=== PATIENT | female | born 1960 | race Caucasian/White ===

== ENCOUNTER 2019-06-23 18:46 | Observation (INO) | payer OTHER ==
--- OUTSIDE RECORDS SUMMARY | 2019-06-23 18:47 | XMS REPORT ---
:1960 [facility] Address [address] [place] [address] [address] [place] [address] Care Team Providers Name Role Phone Unavailable Unavailable Unavailable Problems This patient has no known problems. Allergies, Adverse Reactions, Alerts This patient has no known allergies or adverse reactions. Medications This patient has no known medications.
--- OUTSIDE RECORDS SUMMARY | 2019-06-23 18:48 | XMS REPORT ---
:1960 Author Organization [employer] Care Team Providers Name Role Phone Ruth Matias Provider Role Unavailable Allergies No Known Allergies Problems Problem Type Condition Code Onset Dates Condition Status Problem Falling R29.6 Active Problem Adult BMI 40.0-44.9 kg/sq m Z68.41 Active Problem Diabetes mellitus, type 2 E11.9 Active Problem Low back pain M54.5 Active Problem Pain in unspecified hip M25.559 Active Problem Acute peptic ulcer, site K27.2 Active unspecified, with both hemorrhage and perforation Problem Unspecified asthma, uncomplicated J45.909 Active Problem Migraine, unspecified, not G43.901 Active intractable, with status migrainosus Problem Other specified diabetes mellitus E13.42 Active with diabetic polyneuropathy Problem Type 2 diabetes mellitus with E11.21 Active diabetic nephropathy Problem Cellulitis of left elbow L03.114 Active Problem Sheryl albicans infection B37.9 Active Problem 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 Problem Acute cystitis without hematuria N30.00 Active Problem OAB (overactive bladder) N32.81 Active Problem Reactive depression F32.9 Active Problem Encounter for general adult medical Z00.00 Active examination without abnormal findings Problem Encounter for gynecological Z01.419 Active examination (general) (routine) without abnormal findings Problem 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 Active Problem Ingrown toenail L60.0 Active Problem Screening for colon cancer Z12.11 Active Problem Chronic sinusitis J32.9 Active Problem 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 Problem Bladder spasm N32.89 Active Problem Encounter for immunization Z23 Active Problem Moderate persistent asthma, J45.40 Active unspecified whether complicated Problem [place] or callus L84 Active Problem Hypothyroidism E03.9 Active Problem Abdominal pain, RLQ (right lower R10.31 Active quadrant) Problem Anxiety F41.9 Active Problem Shoulder pain, unspecified M25.519 Active chronicity, unspecified laterality Problem Allergic rhinitis, seasonal J30.2 Active Problem History of cerebrovascular accident I69.90 Active with current residual effects Problem Anemia D64.9 Active Assessment Diabetes mellitus, type 2 E11.9 Active Problem Pressure injury of right buttock, L89.311 Active stage 1 Problem GERD with esophagitis K21.0 Active Problem Other chronic pain G89.29 Active Problem Grief F43.21 Active Medications Medication Code Code Instructions Start End Status Dosage System Date Date Levothyroxine [facility] 44092730820 25 MCG Orally Active 1 tablet Sodium Once a day on an empty stomach in the morning along with 200mcg tab total 225 mcg daily Results No Known Results Summary Purpose [employer] Submission
[2019-06-23] MEDS ORDERED: NA CHLORIDE 0.9% 1,000 ML ONE (19:18)
[2019-06-23 20:22] LABS: Barbiturates NEGATIVE (NEGATIVE); Benzodiazepines NEGATIVE (NEGATIVE); Cocaine NEGATIVE (NEGATIVE); METHAMPHETAM NEGATIVE (NEGATIVE); Methadone NEGATIVE (NEGATIVE); Opiates NEGATIVE (NEGATIVE); Phencyclidine NEGATIVE (NEGATIVE); THC Cannibis NEGATIVE (NEGATIVE)
[2019-06-23 20:23] LABS: Absolute Lymphocytes (CBC) 3.4 K/uL (0.7-4.9); Hematocrit 32.5 % (36.0-45.0); Lymphocytes % 48.2 % (15.3-44.8); MPV 9.4 fL (7.6-11.3); RBC Red Blood Cell Count 3.35 M/uL (3.86-4.86)
[2019-06-23 20:33] LABS: Protime INR 0.85
[2019-06-23 20:38] LABS: Blood Morphology Comment NOT SEEN (NOT SEEN); Platelet Estimate DECR; Urine White Blood Cell Casts OK
[2019-06-23 20:57] LABS: Urine Blood NEGATIVE (NEG); Urine Glucose NEGATIVE (NEG); Urine Protein NEGATIVE (NEG)
[2019-06-23 20:58] LABS: ALT/SGPT 22 U/L (12-78); AST/SGOT 11 U/L (15-37); Albumin 3.5 g/dL (3.4-5.0); Alkaline Phosphatase 63 U/L (45-117); BUN Blood Urea Nitrogen 14 mg/dL (7-18); Bicarbonate 22 mmol/L (21-32); Bilirubin Direct < 0.1 mg/dL (0-0.2); Bilirubin Total 0.2 mg/dL (0.2-1.0); Glucose Level 136 mg/dL (74-106); Protein, Total 6.9 g/dL (6.4-8.2); Sodium Level 136 mmol/L (136-145)
--- NOTE | 2019-06-23 21:03 | ER ---
Nurse's Notes [facility] Name: Radha Santos Age: 58 yrs Sex: Female : 1960 Arrival Date: 06/23/2019 Time: 18:49 Bed 17 Private MD: Diagnosis: Major depressive disorder, recurrent-[place] notified;Dyspnea;Chest pain, unspecified;Chest pain on breathing;Asthma;Type 2 diabetes mellitus;Hypomagnesemia Presentation: 06/23 18:57 Presenting complaint: Patient states: Pt reports she has had depression all her life, ss but is now having suicidal ideations because her a year ago and her house is run down. Pt states, "I've been having these thoughts, but I really don't think I'd do anything because of my dog. Nobody would be able to take care of my dog, she is the world to me and the reason I get up every morning. Son reports that patient voiced to her doctor that she was having these thoughts and had plans to take all of her medication, but again believes she wouldn't actually do it. Transition of care: patient was not received from another setting of care. Onset of symptoms is unknown. Risk Assessment: Do you want to hurt yourself or someone else? Patient reports no desire to harm self or others. Initial Sepsis Screen: Does the patient meet any 2 criteria? HR > 90 bpm. Does the patient have a suspected source of infection? No. Patient's initial sepsis screen is negative. Care prior to arrival: None. 18:57 Method Of Arrival: Ambulatory 18:57 Acuity: SAURAV 2 ss Historical: - Allergies: 19:06 No Known Allergies; ss - Home Meds: 19:23 ProAir HFA 90 mcg/inh 2 puffs inh 4 times a day [Active]; divalproex 500 mg oral Tb24 2 ss tabs once daily [Active]; duloxetine 60 mg Oral cpDR 1 cap twice a day [Active]; Breo Ellipta 200 mcg oral caps take 1 puff DAILY [Active]; levothyroxine 200 mcg tab 1 tab once daily [Active]; meloxicam 7.5 mg oral tab 1 tab once daily [Active]; metformin 500 mg Oral tab 1 tab three times a day [Active]; omeprazole 40 mg Oral cpDR 1 cap once daily [Active]; oxybutynin chloride 5 mg Oral tab 1 tab 2 times per day [Active]; prednisone 20 mg Oral tab once daily [Active]; quetiapine 300 mg oral tab 1 tab once daily [Active]; simvastatin 20 mg Oral tab 1 tab once daily [Active]; tizanidine 2 mg oral cap 1 caps twice a day [Active]; tramadol 50 mg Oral tab 1 tab three times a day [Active]; trazodone 100 mg Oral tab 1 tab nightly [Active]; valsartan 80 mg oral tab 1 tab once daily [Active]; - PMHx: 19:06 CVA; Depression; Diabetes - NIDDM; GERD; Hypothyroidism; Hypertension; High ss Cholesterol; Anxiety; chronic back pain; - PSHx: 19:06 Knee surgery; Hysterectomy; ; Cholecystectomy; wrist surg; ss - Immunization history:: Adult Immunizations up to date. - Social history:: Smoking status: Patient/guardian denies using tobacco. - Ebola Screening: : Patient denies exposure to infectious person Patient denies travel to an Ebola-affected area in the 21 days before illness onset. - Family history:: not pertinent. Screenin:45 Abuse screen: Denies threats or abuse. Denies injuries from another. Nutritional ra1 screening: No deficits noted. Tuberculosis screening: No symptoms or risk factors identified. Fall Risk IV access (20 points). Assessment: 19:16 Reassessment: Patient currently denies SI/ HI at this time and states, "I'm just ss depressed. I wouldn't do anything because of my little dog.". 21:29 Reassessment: Patient appears in no apparent distress at this time. Patient and/or ra1 family updated on plan of care and expected duration. Pain level reassessed. Patient is alert, oriented x 3, equal unlabored respirations, skin warm/dry/pink. Pain: Denies pain. 22:47 Reassessment: Patient appears in no apparent distress at this time. Patient and/or ra1 family updated on plan of care and expected duration. Pain level reassessed. Patient is alert, oriented x 3, equal unlabored respirations, skin warm/dry/pink. attempted to call report to nurse receiving patient, nurse unavailable, will call back. 23:07 Reassessment: Patient appears in no apparent distress at this time. Patient and/or ra1 family updated on plan of care and expected duration. Pain level reassessed. Patient is alert, oriented x 3, equal unlabored respirations, skin warm/dry/pink. Report given to Patricia ABARCA. Psych: 19:30 Subjective: Patient's mood is pleasant and cheerful Delusions are denied, ra1 Hallucinations are denied Having thoughts of denies suicidal or homicidal thoughts. Objective: Patient is cooperative, Speech is normal, Affect is appropriate. Interventions: Patient placed in hospital gown. Urine collected and sent for urine drug test. Suicide Risk Assessment: Sad Person Scale: Sex of patient: Female: Score 0 points. Age of patient: Score 0 point if patient falls outside of specified age parameters. Depression: Score 1 point if signs of depression are present. Previous Attempt: Score 0 point if patient has not previously attempted suicide. Substance Abuse: Score 0 point if patient does not abuse alcohol or drugs. Rational Thinking: Score 0 point if patient has rational thinking. Social Support: Score 0 if social support is present/available. Organized Plan: Score 0 if patient did not have an organized plan in place. Relationship: Score 1 point if patient is , , , or for a single male Chronic Sickness: Score 0 point if patient does not have a chronic illness, debilitating, or severe disorder. TOTAL POINTS: If total points are 0-2, proposed clinical action is to send home with follow-up. Safety Checks: Visitors are present. Pt denies substance abuse. Commitment: patient not suicidal or homicidal; psych commitment not necessary at this time. Vital Signs: 19:06 BP 118 / 93; Pulse 117; Resp 19; Temp 97.1(TE); Pulse Ox 98% on R/A; Weight 97.52 kg; ss Height 5 ft. 6 in. (167.64 cm); 20:29 BP 98 / 66; Pulse 101; Resp 20; Pulse Ox 98% on R/A; ra1 21:00 BP 115 / 86; Pulse 97; Resp 21; Pulse Ox 98% on R/A; ra1 22:00 BP 116 / 69; Pulse 97; Resp 20; Pulse Ox 98% on R/A; ra1 23:11 BP 111 / 75; Pulse 100; Resp 20; Temp 97.6; Pulse Ox 99% on R/A; Pain 0/10; aa1 19:06 Body Mass Index 34.70 (97.52 kg, 167.64 cm) ED Course: 18:49 Patient arrived in ED. mr 19:04 Triage completed. 19:06 Arm band placed on left wrist. 19:09 Ethan Ray MD is Attending Physician. [facility] 19:14 Charlotte Doan, RN is Primary Nurse. aa1 19:36 Safety checks: Family/friend present: yes. Family/friends encouraged to stay with jp3 patient. Placed in gown. Bed in low position. Call light in reach. Verbal reassurance given. quality assurance monitor chassis on. Pulse ox on. NIBP on. 19:36 EKG done, by ED staff, reviewed by Ethan Ray MD. Patient maintains SpO2 saturation jp3 greater than 95% on room air. 19:45 No provider procedures requiring assistance completed. Patient admitted, IV remains in ra1 place. 20:00 Initial lab(s) drawn, by mt, sent to lab. Urine collected: clean catch specimen. ra1 Inserted saline lock: 22 gauge in left upper arm, using aseptic technique. Blood collected. 20:20 Legal drug screen obtained per protocol. jp3 20:47 Valproic Acid (Depakene) Level Sent. jp3 20:47 Acetaminophen Sent. jp3 21:00 Karlo Saleh MD is Hospitalizing Provider. [facility] 21:03 called [facility] spoke with Kilo to have a screener come and evaluate the patient. mw2 21:11 XRAY Chest (1 view) In Process Unspecified. EDMS Administered Medications: 20:00 Drug: NS 0.9% 1000 ml Route: IV; Rate: 1 bolus; Site: left upper arm; ra1 21:00 Follow up: IV Status: Completed infusion; IV Intake: 1000ml ra1 21:23 Drug: Pepcid 20 mg Route: IVP; Site: left upper arm; ra1 23:13 Follow up: Response: No adverse reaction; Nausea is decreased ra1 23:13 Follow up: Response: No adverse reaction ra1 21:24 Drug: SOLU-Medrol 125 mg Route: IVP; Site: left upper arm; ra1 23:15 Follow up: Response: No adverse reaction ra1 :24 Drug: Xopenex 2.5 mg Route: Inhalation; ra1 21:24 Drug: AtroVENT Aerosol 0.5 mg Route: Inhalation; ra1 21:45 Drug: Zofran 4 mg Route: PO; ra1 22:49 Follow up: Response: No adverse reaction; Nausea is decreased ra1 22:50 Follow up: Response: No adverse reaction; Nausea is decreased ra1 22:02 Drug: Magnesium Sulfate 2 grams Route: IVPB; Infused Over: 2 hrs; Site: left upper arm; ra1 23:13 Follow up: IV Status: Infusion continued upon admission ra1 Intake: 21:00 IV: 1000ml; Total: 1000ml. ra1 Outcome: 21:02 Decision to Hospitalize by Provider. [facility] 23:07 Admitted to Tele accompanied by tech, via wheelchair, room 415, with chart. ra1 23:07 Condition: stable 23:07 Discharge instructions given to Instructed on the need for admit, Demonstrated understanding of instructions, Prescriptions given X 23:31 Patient left the ED. ra1 Signatures: Dispatcher [employer] EDMS Charlotte Doan, RIMA RN aa1 Ethan Ray MD MD cha Rivera, Alexandra Chang, Gage Magallanes RN mw2 Ned Ahuja jp3 Kenton Almanzar RN RN ra1
--- NOTE | 2019-06-23 21:03 | EDPHYS ---
Physician Documentation [facility] Name: Radha Santos Age: 58 yrs Sex: Female : 1960 Arrival Date: 06/23/2019 Time: 18:49 Bed 17 Private MD: ED Physician Ethan Ray HPI: 06/23 20:54 This 58 yrs old Female presents to ER via Ambulatory with complaints of itz Depression. 20:54 The patient has shortness of breath at rest, with light activity. Onset: The itz symptoms/episode began/occurred 2 day(s) ago. Duration: The symptoms are continuous, and are steadily getting worse. The patient's shortness of breath is aggravated by supine position, talking, walking. The patient presents to the emergency department with depression, over a , the patient's significant other. Past psychiatric history: Prior diagnosis: bipolar disorder, depression. The patient or guardian reports chest pain that is located primarily in the anterior chest wall, bilaterally. Historical: - Allergies: 19:06 No Known Allergies; ss - Home Meds: 19:23 ProAir HFA 90 mcg/inh 2 puffs inh 4 times a day [Active]; divalproex 500 mg oral Tb24 2 ss tabs once daily [Active]; duloxetine 60 mg Oral cpDR 1 cap twice a day [Active]; Breo Ellipta 200 mcg oral caps take 1 puff DAILY [Active]; levothyroxine 200 mcg tab 1 tab once daily [Active]; meloxicam 7.5 mg oral tab 1 tab once daily [Active]; metformin 500 mg Oral tab 1 tab three times a day [Active]; omeprazole 40 mg Oral cpDR 1 cap once daily [Active]; oxybutynin chloride 5 mg Oral tab 1 tab 2 times per day [Active]; prednisone 20 mg Oral tab once daily [Active]; quetiapine 300 mg oral tab 1 tab once daily [Active]; simvastatin 20 mg Oral tab 1 tab once daily [Active]; tizanidine 2 mg oral cap 1 caps twice a day [Active]; tramadol 50 mg Oral tab 1 tab three times a day [Active]; trazodone 100 mg Oral tab 1 tab nightly [Active]; valsartan 80 mg oral tab 1 tab once daily [Active]; - PMHx: 19:06 CVA; Depression; Diabetes - NIDDM; GERD; Hypothyroidism; Hypertension; High ss Cholesterol; Anxiety; chronic back pain; - PSHx: 19:06 Knee surgery; Hysterectomy; ; Cholecystectomy; wrist surg; ss - Immunization history:: Adult Immunizations up to date. - Social history:: Smoking status: Patient/guardian denies using tobacco. - Ebola Screening: : Patient denies exposure to infectious person Patient denies travel to an Ebola-affected area in the 21 days before illness onset. - Family history:: not pertinent. ROS: 20:54 Constitutional: Negative for fever, chills, and weight loss, Eyes: Negative for injury, itz pain, redness, and discharge, ENT: Negative for injury, pain, and discharge, Neck: Negative for injury, pain, and swelling, Abdomen/GI: Negative for abdominal pain, nausea, vomiting, diarrhea, and constipation, Back: Negative for injury and pain, : Negative for injury, bleeding, discharge, and swelling, MS/Extremity: Negative for injury and deformity, Skin: Negative for injury, rash, and discoloration, Neuro: Negative for headache, weakness, numbness, tingling, and seizure, Psych: Negative for depression, anxiety, suicide ideation, homicidal ideation, and hallucinations, Allergy/Immunology: Negative for hives, rash, and allergies, Endocrine: Negative for neck swelling, polydipsia, polyuria, polyphagia, and marked weight changes, Hematologic/Lymphatic: Negative for swollen nodes, abnormal bleeding, and unusual bruising. 20:54 Cardiovascular: Positive for chest pain, with cough. 20:54 Respiratory: Positive for cough, shortness of breath, wheezing, expiratory. Exam: 20:54 Constitutional: This is a well developed, well nourished patient who is awake, alert, itz and in no acute distress. Head/Face: Normocephalic, atraumatic. Eyes: Pupils equal round and reactive to light, extra-ocular motions intact. Lids and lashes normal. Conjunctiva and sclera are non-icteric and not injected. Cornea within normal limits. Periorbital areas with no swelling, redness, or edema. ENT: Nares patent. No nasal discharge, no septal abnormalities noted. Tympanic membranes are normal and external auditory canals are clear. Oropharynx with no redness, swelling, or masses, exudates, or evidence of obstruction, uvula midline. Mucous membranes moist. Neck: Trachea midline, no thyromegaly or masses palpated, and no cervical lymphadenopathy. Supple, full range of motion without nuchal rigidity, or vertebral point tenderness. No Meningismus. Chest/axilla: Normal chest wall appearance and motion. Nontender with no deformity. No lesions are appreciated. Abdomen/GI: Soft, non-tender, with normal bowel sounds. No distension or tympany. No guarding or rebound. No evidence of tenderness throughout. Back: No spinal tenderness. No costovertebral tenderness. Full range of motion. Skin: Warm, dry with normal turgor. Normal color with no rashes, no lesions, and no evidence of cellulitis. MS/ Extremity: Pulses equal, no cyanosis. Neurovascular intact. Full, normal range of motion. Neuro: Awake and alert, GCS 15, oriented to person, place, time, and situation. Cranial nerves II-XII grossly intact. Motor strength 5/5 in all extremities. Sensory grossly intact. Cerebellar exam normal. Normal gait. Psych: Awake, alert, with orientation to person, place and time. Behavior, mood, and affect are within normal limits. 20:54 Cardiovascular: Rate: tachycardic, Rhythm: regular, Pulses: Pulses are 4+ in bilateral radial, brachial, femoral, popliteal, posterior tibial and and dorsalis pedis arteries.. Heart sounds: normal, normal S1and S2, no S3 or S4, no murmur, no rub, no gallop, Edema: is not appreciated, JVD: is not appreciated. Vital Signs: 19:06 BP 118 / 93; Pulse 117; Resp 19; Temp 97.1(TE); Pulse Ox 98% on R/A; Weight 97.52 kg; ss Height 5 ft. 6 in. (167.64 cm); 20:29 BP 98 / 66; Pulse 101; Resp 20; Pulse Ox 98% on R/A; ra1 21:00 BP 115 / 86; Pulse 97; Resp 21; Pulse Ox 98% on R/A; ra1 22:00 BP 116 / 69; Pulse 97; Resp 20; Pulse Ox 98% on R/A; ra1 23:11 BP 111 / 75; Pulse 100; Resp 20; Temp 97.6; Pulse Ox 99% on R/A; Pain 0/10; aa1 19:06 Body Mass Index 34.70 (97.52 kg, 167.64 cm) ss MDM: 19:09 Patient medically screened. [facility] [place] 20:59 Data reviewed: vital signs, nurses notes, lab test result(s), EKG, radiologic studies, itz plain films. 06/23 19:12 Order name: Acetaminophen [facility] [place] 06/23 19:12 Order name: Basic Metabolic Panel; Complete Time: 21:32 [facility] [place] 06/23 19:12 Order name: CBC with Diff; Complete Time: 20:53 [facility] 06/23 19:12 Order name: ETOH Level; Complete Time: 20:53 [facility] [place] 06/23 19:12 Order name: Hepatic Function; Complete Time: 21:32 [facility] [place] 06/23 19:12 Order name: PT-INR; Complete Time: 20:53 [facility] [place] 06/23 19:12 Order name: Ptt, Activated; Complete Time: 20:53 [facility] [place] 06/23 19:12 Order name: Salicylate; Complete Time: 20:53 [facility] [place] 06/23 19:12 Order name: Urine Drug Screen; Complete Time: 20:53 [facility] [place] 06/23 19:12 Order name: TSH; Complete Time: 21:32 [facility] [place] 06/23 19:12 Order name: Acetaminophen Level; Complete Time: 21:32 [facility] 06/23 20:02 Order name: Urine Dipstick--Ancillary (enter results); Complete Time: 21:32 [facility] 06/23 20:38 Order name: CBC Smear Scan; Complete Time: 20:53 [facility] 06/23 20:45 Order name: Valproic Acid (Depakene) Level; Complete Time: 21:32 [facility] 06/23 20:53 Order name: XRAY Chest (1 view); Complete Time: 21:32 [facility] [place] 06/23 21:02 Order name: T4 Free; Complete Time: 21:32 [facility] 06/23 21:04 Order name: Troponin (Emerg Dept Use Only); Complete Time: 21:32 [facility] 06/23 21:04 Order name: NT PRO-BNP; Complete Time: 21:32 [facility] 06/23 21:04 Order name: Magnesium; Complete Time: 21:32 [facility] 06/23 21:55 Order name: Echo with Doppler [facility] 06/23 21:55 Order name: Troponin I [facility] 06/23 21:55 Order name: Troponin I [facility] 06/23 21:55 Order name: Troponin I [facility] 06/23 19:12 Order name: EKG; Complete Time: 19:13 [facility] [place] 06/23 19:12 Order name: EKG - Nurse/Tech; Complete Time: 19:37 [facility] [place] 06/23 19:12 Order name: IV Saline Lock; Complete Time: 20:14 [facility] [place] 06/23 19:12 Order name: Labs collected and sent; Complete Time: 20:15 [facility] [place] 06/23 19:12 Order name: Urine Dipstick-Ancillary (obtain specimen); Complete Time: 20:18 [facility] [place] 06/23 20:53 Order name: Cardiac monitoring; Complete Time: 21:01 [facility] [place] 06/23 20:53 Order name: O2 Per Protocol; Complete Time: 21:01 [facility] [place] 06/23 20:53 Order name: O2 Sat Monitoring; Complete Time: 21:02 [facility] [place] 06/23 21:55 Order name: CONS Physician Consult [facility] 06/23 21:55 Order name: Heart Healthy [facility] 06/23 21:55 Order name: EKG Electrocardiogram [facility] 06/23 21:55 Order name: EKG Electrocardiogram EDVT Administered Medications: 20:00 Drug: NS 0.9% 1000 ml Route: IV; Rate: 1 bolus; Site: left upper arm; ra1 21:00 Follow up: IV Status: Completed infusion; IV Intake: 1000ml ra1 21:23 Drug: Pepcid 20 mg Route: IVP; Site: left upper arm; ra1 23:13 Follow up: Response: No adverse reaction; Nausea is decreased ra1 23:13 Follow up: Response: No adverse reaction ra1 21:24 Drug: SOLU-Medrol 125 mg Route: IVP; Site: left upper arm; ra1 23:15 Follow up: Response: No adverse reaction ra1 21:24 Drug: Xopenex 2.5 mg Route: Inhalation; ra1 21:24 Drug: AtroVENT Aerosol 0.5 mg Route: Inhalation; ra1 21:45 Drug: Zofran 4 mg Route: PO; ra1 22:49 Follow up: Response: No adverse reaction; Nausea is decreased ra1 22:50 Follow up: Response: No adverse reaction; Nausea is decreased ra1 22:02 Drug: Magnesium Sulfate 2 grams Route: IVPB; Infused Over: 2 hrs; Site: left upper arm; ra1 23:13 Follow up: IV Status: Infusion continued upon admission ra1 Disposition: 06/23/19 21:02 Hospitalization ordered by Karlo Saleh for Inpatient Admission. Preliminary diagnosis are Major depressive disorder, recurrent - [place] notified, Dyspnea, Chest pain, unspecified, Chest pain on breathing, Asthma, Type 2 diabetes mellitus, Hypomagnesemia. - Bed requested for Telemetry/MedSurg (Inpatient). - Status is Inpatient Admission. ra1 - Condition is Fair. - Problem is new. - Symptoms have improved. UTI on Admission? No Signatures: Dispatcher [employer] EDVT Ethan Ray MD MD cha Smirch, Shelby, RN RN ss Coni Blas RN RN cg Kenton Almanzar RN RN ra1 Corrections: (The following items were deleted from the chart) 20:45 20:41 VALPROIC ACID (DEPAKOTE)+C.LAB.BRZ ordered. [facility] 21:03 21:02 Hospitalization Ordered by Karlo Saleh MD for Inpatient Admission. Preliminary [facility] [place] diagnosis is Major depressive disorder, recurrent - [place] notified; Dyspnea; Chest pain, unspecified; Chest pain on breathing; Asthma. Bed requested for Telemetry/MedSurg (Inpatient). Status is Inpatient Admission. Condition is Fair. Problem is new. Symptoms have improved. UTI on Admission? No. itz 21:04 20:54 MAGNESIUM+C.LAB.BRZ ordered. [facility] 21:04 20:54 PROBNP+C.LAB.BRZ ordered. [facility] 21:04 20:54 TROPONIN (EMERG DEPT USE ONLY)+C.LAB.BRZ ordered. [facility] 21:33 21:03 06/23/2019 21:02 Hospitalization Ordered by Karlo Saleh MD for Inpatient itz Admission. Preliminary diagnosis is Major depressive disorder, recurrent - [place] notified; Dyspnea; Chest pain, unspecified; Chest pain on breathing; Asthma; Type 2 diabetes mellitus. Bed requested for Telemetry/MedSurg (Inpatient). Status is Inpatient Admission. Condition is Fair. Problem is new. Symptoms have improved. UTI on Admission? No. itz 22:25 21:33 06/23/2019 21:02 Hospitalization Ordered by Karlo Saleh MD for Inpatient cg Admission. Preliminary diagnosis is Major depressive disorder, recurrent - [place] notified; Dyspnea; Chest pain, unspecified; Chest pain on breathing; Asthma; Type 2 diabetes mellitus; Hypomagnesemia. Bed requested for Telemetry/MedSurg (Inpatient). Status is Inpatient Admission. Condition is Fair. Problem is new. Symptoms have improved. UTI on Admission? No. itz 23:31 22:25 06/23/2019 21:02 Hospitalization Ordered by Karlo Saleh MD for Inpatient ra1 Admission. Preliminary diagnosis is Major depressive disorder, recurrent - [facility] notified; Dyspnea; Chest pain, unspecified; Chest pain on breathing; Asthma; Type 2 diabetes mellitus; Hypomagnesemia. Bed requested for Telemetry/MedSurg (Inpatient). Status is Inpatient Admission. Condition is Fair. Problem is new. Symptoms have improved. UTI on Admission? No.
[2019-06-23] MEDS ORDERED: METHYLPREDNISOLONE 125 MG INJ ONE (21:10)
[2019-06-23] MEDS ORDERED: IPRATROPIUM BROM 0.5MG/2.5ML ONE (21:11)
[2019-06-23] MEDS ORDERED: LEVALBUTEROL 1.25 MG/3 ML NEB ONE (21:12)
[2019-06-23] MEDS ORDERED: FAMOTIDINE 20 MG/2 ML VIAL IV ONE (21:12)
[2019-06-23 21:13] LABS: Magnesium 1.5 mg/dL (1.8-2.4); NT PRO-BNP 173 pg/mL (<125); Troponin (Emerg Dept Use Only) < 0.02 ng/mL (0.0-0.045)
--- NOTE | 2019-06-23 21:17 | RAD REPORT ---
EXAM DESCRIPTION: RAD - Chest Single View - 06/23/2019 9:11 pm CLINICAL HISTORY: COUGH Chest pain. COMPARISON: Chest Single View dated 09/29/2016; CHEST SINGLE VIEW dated 10/13/2015; CHEST SINGLE VIEW d ated 05/08/2015; CHEST SINGLE VIEW dated 01/04/2015 FINDINGS: Portable technique limits examination quality. The lungs are grossly clear. The heart is normal in size. No displaced fractures. IMPRESSION: No acute intrathoracic process suspected.
[2019-06-23] MEDS ORDERED: Magnesium Sulfate 2gm IVPB 2 G/50 ML BAG IV ONE (21:39)
[2019-06-23] MEDS ORDERED: ONDANSETRON 4 MG (ODT) TAB ONE (21:42)
[2019-06-23] MEDS ORDERED: ACETAMINOPHEN 500 MG TAB PO PRN (21:51)
[2019-06-23] MEDS ORDERED: MORPHINE 4 MG/ML SYR IV PRN (21:51)
[2019-06-23] MEDS ORDERED: ALPRAZOLAM 0.25 MG TABLET PO PRN (21:51)
[2019-06-23 23:40] VITALS: BMI 35.8
[2019-06-24] MEDS: TRAZODONE 50 MG TABLET PO SCH ×2 (02:34→21:06)
[2019-06-24] MEDS: METOPROLOL TAR 50 MG TAB PO SCH ×3 (05:36→21:06)
[2019-06-24] MEDS ORDERED: WATER FOR INJ,STERILE 10 ML IV ONE (08:00)
[2019-06-24] MEDS ORDERED: HYDROCORTISONE SUC 100 MG INJ IV ONE (08:00)
[2019-06-24] MEDS: ASPIRIN EC 81 MG TAB PO SCH (08:29)
[2019-06-24] MEDS: ENOXAPARIN 40 MG/0.4 ML SQ SCH (08:29)
--- NOTE | 2019-06-24 09:42 | EKG ---
Test Date: 2019-06-24 Test Time: 08:17:49 [employer]sr Retail: BERNARD MEASUREMENT RESULTS: Intervals: Rate: 74 NJ: 178 QRSD: 94 QT: 404 QTc: 448 [place]: P: 41 NJ: 178 QRS: 24 T: 17 INTERPRETIVE STATEMENTS: Normal sinus rhythm Normal ECG Compared to ECG 06/23/2019 19:25:14 Sinus tachycardia no longer present Right-axis deviation no longer present Electronically Signed On 06-24-19 09:41:34 ENGINEER TECHNICAL STAFF by Davon Frank
--- NOTE | 2019-06-24 09:44 | EKG ---
Test Date: 2019-06-23 Test Time: 19:25:14 [employer]razzo Tile Setter: OMER MEASUREMENT RESULTS: Intervals: Rate: 110 CA: 148 QRSD: 92 QT: 332 QTc: 449 [place]: P: 52 CA: 148 QRS: 110 T: 4 INTERPRETIVE STATEMENTS: Sinus tachycardia Right axis deviation Abnormal ECG Compared to ECG 07/24/2017 22:52:47 Right-axis deviation now present Electronically Signed On 06-24-19 09:41:55 SOIL FERTILITY SPECIALIST by Davon Frank
[2019-06-24] MEDS ORDERED: ALBUTEROL 2.5 MG/3 ML NEB SOL IH PRN (12:09)
[2019-06-24] MEDS: DULOXETINE 30 MG CAP PO SCH ×3 (12:09→21:05)
--- NOTE | 2019-06-24 14:02 | P.HP ---
Certification for Inpatient Patient admitted to: Observation With expected LOS: <2 Midnights Patient will require the following post-hospital care: None Practitioner: I am a practitioner with admitting privileges, knowledge of patient current condition, hospital course, and medical plan of care. Services: Services provided to patient in accordance with Admission requirements found in Title 42 Section 412.3 of the Code of Federal Regulations Patient History Date of Service: 06/23/19 Reason for admission: Chest pain rule out acute coronary syndrome;depression History of Present Illness: Patient is a 58-year-old female came to the hospital with depression. She was set had but did not relate any suicidal thoughts. She was also having some chest discomfort. That was the main reason she was initially admitted. Her pain was mainly in the sternal region. There was no radiation. This was not associated with shortness of breath or diaphoresis. She has no nausea or vomiting. This is worsened with her depression. She has history of bipolar disorder as well. She sees [facility] locally for her psychiatric issues. Will Consult psychiatry as well. At this time, she will be admitted to the hospital for further evaluation. Allergies No Known Drug Allergies Allergy (Verified 08/31/16 07:29) Unknown Home Medications: Albuterol Sulfate [Albuterol Sulfate 0.083% Neb Soln] 2.5 mg IH Q6H PRN Duloxetine HCl [Cymbalta] 60 mg PO BID 07/24/17 Metformin HCl [Glucophage] 500 mg PO TID 07/24/17 Omeprazole [Prilosec] 40 mg PO DAILY 07/24/17 Quetiapine Fumarate [Quetiapine Fumarate ER] 300 mg PO BEDTIME 07/24/17 Valsartan 80 mg PO DAILY 07/24/17 Fluticasone/Vilanterol [Breo Ellipta 200-25 Mcg INH] 1 each IH DAILY #30 blst.w.dev 07/25/17 Divalproex Sodium [Divalproex Sodium ER] 1,000 mg PO BEDTIME 06/24/19 Levothyroxine Sodium [Synthroid] 200 mcg PO 1100 06/24/19 Meloxicam [Mobic*] 7.5 mg PO DAILY 06/24/19 Oxybutynin Chloride 5 mg PO BID 06/24/19 Simvastatin 20 mg PO BEDTIME 06/24/19 Tizanidine HCl [Zanaflex] 2 mg PO BID 06/24/19 Tramadol HCl [Ultram] 50 mg PO TIDP PRN 06/24/19 Trazodone HCl 200 mg PO BEDTIME 06/24/19 predniSONE [Prednisone*] 40 mg PO DAILY 06/24/19 - Past Medical/Surgical History Has patient received pneumonia vaccine in the past: Yes Diabetic: Yes -: depression -: bipolar -: hypertension -: cva -: asthma -: NIDDM -: short term memory problems -: hysterectomy -: bilateral knee replacement -: susy -: csections -: right wrist surgery - Family History Father Medical History: Cancer Notes: skin Mother Medical History: Heart disease, Diabetes - Social History Smoking Status: Never smoker Alcohol use: No CD- Drugs: No Caffeine use: No Place of Residence: Home Review of Systems 10-point ROS is otherwise unremarkable Physical Examination - Vital Signs Temperature: 97.3 F Blood Pressure: 99/53 Pulse: 61 Respirations: 16 Pulse Ox (%): 95 - Physical Exam General: Alert, In no apparent distress, Oriented x3 HEENT: Atraumatic, PERRLA, Mucous membr. moist/pink, EOMI, Sclerae nonicteric Neck: Supple, 2+ carotid pulse no bruit, No LAD, Without JVD or thyroid abnormality Respiratory: Clear to auscultation bilaterally, Normal air movement Cardiovascular: Regular rate/rhythm, Normal S1 S2, No murmurs Gastrointestinal: Normal bowel sounds, Soft and benign, Non-distended, No tenderness Musculoskeletal: No clubbing, No swelling, No tenderness Integumentary: No rashes Neurological: Normal gait, Normal speech, Normal strength at 5/5 x4 extr, Normal tone, Sensation intact, Cranial nerves 3-12 intact, Normal reflexes 2+, Normal affect Lymphatics: No axilla or inguinal lymphadenopathy - Studies Laboratory Data (last 24 hrs) 06/23/19 20:53: Magnesium Cancelled 06/23/19 20:00: PT 10.1, INR 0.85, APTT 17.3 L 06/23/19 20:00: WBC 7.0, Hgb 11.0 L, Hct 32.5 L, Plt Count 117 L 06/23/19 20:00: Sodium 136, Potassium 4.0, BUN 14, Creatinine 0.97, Glucose 136 H, Magnesium 1.5 L, Total Bilirubin 0.2, AST 11 L, ALT 22, Alkaline Phosphatase 63 Assessment & Plan - Problems (Diagnosis) (1) Chest pain, rule out acute myocardial infarction Current Visit: Yes Status: Acute (2) Bipolar disorder Current Visit: Yes Status: Acute (3) Depression Onset Date: 07/24/17 Current Visit: No Status: Acute Qualifiers: Depression Type: major depressive disorder (4) Diabetes Onset Date: 07/24/17 Current Visit: No Status: Acute Qualifiers: Diabetes mellitus type: type 2 Diabetes mellitus buttermaker helper insulin use: without intermediate use Diabetes mellitus complication status: with neurologic complications Diabetes mellitus complication detail: with polyneuropathy Qualified Code(s): E11.42 - Type 2 diabetes mellitus with diabetic polyneuropathy - Plan 1. Serial troponins and EKG 2. Appreciate Cardiology consultation 3. Echocardiogram and stress test if cardiology is agreeable 4. Anti-platelet therapy, anti coagulation, beta-sarath, statin, and O2 as needed 5. IV morphine for pain 6. Nitro p.r.n. 7. Resume anti depression medication and Consult psychiatry Discharge Plan: Home Plan to discharge in: 24 Hours - Advance Directives Does patient have a Living Will: No Does patient have a Durable POA for Healthcare: No - Code Status/Comfort Care Code Status Assessed: Yes Code Status: Full Code Critical Care: No Time Spent Managing PTS Care (In Minutes): 45
[2019-06-24] MEDS: TRAMADOL HCL 50 MG TAB PO PRN (15:10)
[2019-06-24] MEDS: METFORMIN HCL 500 MG TAB PO SCH (16:32)
--- NOTE | 2019-06-24 17:43 | P.PN ---
Date of Service: 06/24/19 I was called at bedside at around 4:30 p.m. today as patient was having suicidal ideation. Upon questioning the patient patient stated that she currently is not suicidal however she will hurt herself if we discharge her home to her house as she does not want a return to the house that she lives in right now. Patient also states that she plans to overdose on her medication. She also plans to give the medications to her dog that she does not want him to be "alive the snf without her. Patient states that her house is not in any living conditions and she does not want live there anymore. Patient has a dog which she is not willing to let go up with this time. Patient also states that she does not want to go to any facility as she will not be able to take her dog and is declining any placement at this time as well. Patient states that she does have a history of bipolar and major depressive disorder which she takes Cymbalta for. Patient currently is also prescribed Seroquel and Depakote which is unknown and she takes those medications at this time are not. Psychiatrist was consulted here in the hospital. Psychiatry recommended inpatient psych please review psychiatrist note for more information along with physical exam and assessment. Case management has been consulted for inpatient psych placement at this time. Patient also has 1-1 sitter to monitor her closely. Patient currently is not suicidal this does not need to be transferred to the ICU with however she does become suicidal and plans to her herself patient should be transferred to the ICU for close monitoring.
[2019-06-24] MEDS ORDERED: QUETIAPINE 100MG TAB PO SCH (21:00)
[2019-06-24] MEDS ORDERED: TRAZODONE HCL 200 MG PO SCH (21:00)
[2019-06-24] MEDS ORDERED: ATORVASTATIN 10 MG TAB PO SCH (21:00)
[2019-06-24] MEDS ORDERED: DIVALPROEX ER 250 MG TAB PO SCH (21:00)
[2019-06-24] MEDS: OXYBUTYNIN CHLORIDE 5 MG TAB PO SCH (21:05)
[2019-06-24] MEDS: TIZANIDINE 4 MG TABLET PO SCH (21:08)
--- NOTE | 2019-06-25 02:51 | CON ---
Date of Consultation: 06/24/[address] Saleh. Reason For Consultation: Chest pain. History Of Present Illness: Ms. Santos is a 58-year-old woman who came in with mostly shortness of br eath, chest pressure, felt very depressed. She has a history of depression, COPD, CVA, diabetes, gas troesophageal reflux disease, hypothyroidism, hypertension, dyslipidemia, and anxiety. Denies any na usea, vomiting, diaphoresis, PND, orthopnea, pedal edema, palpitations, or syncope. Her workup so fa r has been negative including chest x-ray, EKGs, troponin, and BNP. Her TSH was slightly elevated at 12.7. Allergies: NONE. Review of Systems: Negative. Social History: Negative. Family History: Negative. Medications: At home include inhalers, Synthroid, Cymbalta, Prilosec, Zocor, valsartan, and she take s prednisone 40 mg daily. Physical Examination: Vital Signs: Stable, afebrile. HEENT: Negative. Neck: Supple with no bruit. Chest: Clear. Cardiac: Revealed a regular rhythm and rate. No murmurs, gallops, or rubs. Abdomen: Benign. Extremities: Revealed no clubbing, cyanosis, or edema. Diagnostic Data: As stated earlier. Impression And Plan: Shortness of breath and chest pressure, most likely secondary to anxiety and de pression and maybe chronic obstructive pulmonary disease. Echocardiogram is pending. We will see wh at that shows prior to making final decisions. Her other problems include history of CVA, diabetes, gastroesophageal reflux disease, and hypothyroidism. These are stable. Her TSH is slightly elevated . She may need a higher dose of Synthroid. Her blood pressure and cholesterol are well controlled. I believe if her echocardiogram is normal, she can go home today and we will set her up for an outpa tient stress test. BENTLEY/DAMIRL Voice ID: [id number] Report ID: [id number]
[2019-06-25 05:52] VITALS: O2SAT 95
[2019-06-25] MEDS ORDERED: PANTOPRAZOLE 40MG TABLET PO SCH (06:30)
--- NOTE | 2019-06-25 08:06 | ECHO ---
HEIGHT: 5 ft 6 in WEIGHT: 221 lb 12.8 oz DATE OF STUDY: 06/24/[address]: Karlo Saleh MD 2-DIMENSIONAL: YES M.MODE: YES DOPPLER: YES COLOR FLOW: YES TDS: NO PORTABLE: NO DEFINITY: NO BUBBLE STUDY: NO DIAGNOSIS: CHEST PAIN RULE OUT ACS CARDIAC HISTORY: CATHERIZATION: NO SURGERY: NO PROSTHETIC VALVE: NO PACEMAKER: NO MEASUREMENTS (cm) DIASTOLIC (NORMALS) SYSTOLIC (NORMALS) IVSd 1.0 (0.6-1.2) LA Diam 3.8 (1.9-4.0) LVEF 57% LVIDd 4.2 (3.5-5.7) LVIDs 3.0 (2.0-3.5) %FS 30% LVPWd 1.1 (0.6-1.2) Ao Diam 2.7 (2.0-3.7) 2 DIMENSIONAL ASSESSMENT: RIGHT ATRIUM: NORMAL LEFT ATRIUM: NORMAL RIGHT VENTRICLE: NORMAL LEFT VENTRICLE: NORMAL TRICUSPID VALVE: NORMAL MITRAL VALVE: NORMAL PULMONIC VALVE: NORMAL AORTIC VALVE: NORMAL PERICARDIAL EFFUSION: NONE AORTIC ROOT: NORMAL LEFT VENTRICULAR WALL MOTION: NORMAL DOPPLER/COLOR FLOW: NORMAL COMMENTS: NORMAL 2D ECHOCARDIOGRAM WITH DOPPLER. NO WALL MOTION ABONORMALITY. NO EFFUSION. TECHNOLOGIST: Peña RUIZ
[2019-06-25] MEDS ORDERED: MELOXICAM 7.5 MG TAB PO SCH (09:00)
[2019-06-25] MEDS ORDERED: predniSONE 20 MG TAB PO SCH (09:00)
[2019-06-25] MEDS ORDERED: HOME MED 1 EA UNK (Fluticasone/Vilanterol [Breo Ellipta 200-25 Mcg Inh] 1 EACH) IH SCH (09:00)
[2019-06-25] MEDS ORDERED: VALSARTAN 80 MG TAB PO SCH (09:00)
[2019-06-25] MEDS: DULOXETINE 30 MG CAP PO SCH (09:32)
[2019-06-25] MEDS: ENOXAPARIN 40 MG/0.4 ML SQ SCH (09:32)
[2019-06-25] MEDS: METOPROLOL TAR 50 MG TAB PO SCH (09:32)
[2019-06-25] MEDS: ASPIRIN EC 81 MG TAB PO SCH (09:33)
[2019-06-25] MEDS: OXYBUTYNIN CHLORIDE 5 MG TAB PO SCH (09:33)
[2019-06-25] MEDS: METFORMIN HCL 500 MG TAB PO SCH ×3 (09:33→16:19)
[2019-06-25] MEDS: TIZANIDINE 4 MG TABLET PO SCH (09:33)
[2019-06-25] MEDS: TRAMADOL HCL 50 MG TAB PO PRN (09:34)
[2019-06-25] MEDS ORDERED: LEVOTHYROXINE SOD 0.1 MG TAB PO SCH (11:00)
--- NOTE | 2019-06-25 15:37 | CON ---
Subjective: Ms. Radha Santos is a 58-year-old female, admitted via the ER on the June,, on presentation with shortness of breath at rest as well as on light activity, onset of symptoms was 2 days prior to her presentation noted that the symptoms were getting worse and felt she might be having a heart attack. Patient was admitted to the medical floor after ER stabilization on further evaluation patient reported severe depression with suicidal ideation and plan to hurt her and her dog. Psychiatry is consulted for evaluation and treatment recommendation. On interview, patient was met in her crying loudly in her room, she was moderately agitated, stating repeatedly that she just spoke "Screwed everything " she states she just spoke with her few minutes prior to my visit and that her son is very angry with her for letting her doctor know that she is living in a rat infested apartment and she is in extreme financial difficulties. Patient states her managing team call adult protection service to report her situation and they called her son. Patient states her son manages her income from social security and she rents an apart from her sons father who happens to be her ex- . Patient states she has been depressed since her 2 years ago. She says she is tired and frustrated of living like that. She states she also has a daughter who does not care about her and does not want to have anything to do with her. Patient is states she depressed for most part of the day, feeling hopeless, helpless and worthless, anhedonia with lack of motivation. She does not have desire to do anything. States her depression recently became more pronounced and plan is to go home and kill her dog and herself. There is no history of previous suicide attempts, but does have history of multiple self injurious behaviors(Slashing her right wrist) as well as psychiatric hospitalization. States she was diagnosed with bipolar disorder several years ago by a psychiatrist and she has been on medications, some of which include Depakote, Seroquel, and Cymbalta. Patient states she has not been taking her medications regularly. She denies psychotic symptoms. Reports history of anxiety. She states she worries a lot about her situation. She is lonely, has no friends and her only son who has been somewhat responsive to her needs is angry with her. She states her sleep has been terrible, having difficulty falling and staying asleep. She denies abuse of alcoholic beverages. Denies abuse of illicit substances. She does report significant mental health history in the family, states her mother had severe mental illness and was in mental health institutions numerous times and had ECT treatments. Objective: Vital Signs: Blood pressure 127/69, pulse rate is 77, respiratory rate is 16, O2 saturation is 96 on room air. Rate the pain level as 4. Mental Status: Patient is a well-nourished lady, dressed in hospital gown, has poor dentition, observed to be crying hysterically, not in any obvious acute cardiorespiratory distress. She is superficially cooperative with the interview, made intermittent eye contact. No stereotypic movement noted. Memory is fair and concentration poor. Speech is spontaneous, hyperverbal slightly pressured Mood she described as depressed. Affect is mood congruent and full range. Thought Process:Suicidal ideation with plan to overdose of her medication no homicidal ideation, no delusions. Patient ruminate about her "terrible living situation and lack of social support. Perceptual disturbance: No AVH, Fund of knowledge: Average, language skills:fair Assessment: A 58-year-old female, with psychiatric history significant Bipolar disorder, history self injurious behavior and multiple psychiatric inpatient hospitalization. Currently reporting severe depression with suicidal ideation and plan to kill herself and her dog via overdosing on medication. Patient has no social support and numerous psychosocial stressors, which includes poor finances, living in a rat infested apartment and recent discord with son. Recommendations: 1. Continue Cymbalta 60 mg p.o. b.i.d. 2. Restart Seroquel at 150 mg p.o. at bedtime. 3. Recommend acute psychiatry inpatient hospitalization for patient's safety and stabilization of depressive symptoms, patient is willing to be hospitalized as she is afraid she will go through with her plan to commit suicide if she is discharge home 4 Recommend social media manager assist with discharge planning. 5 Recommend 1 to 1 observation. 6. Discussed recommendation with Dr. Miramontes Thank you for the consult DEBBI/FOZIA Voice ID: [id number] Report ID: [id number] KVNG
[2019-06-25] MEDS ORDERED: D50W 25 GM/50 ML SYRINGE/VIAL IV PRN (15:54)
[2019-06-25] MEDS ORDERED: GLUCAGON 1 MG/VIAL IM PRN (15:54)
[2019-06-25 16:06] VITALS: BP 105/62; TEMP 97.4
[2019-06-25] MEDS ORDERED: INSULIN -REGULAR HUMAN 50 UNIT/0.5 ML ML SQ SCH (16:30)
[2019-06-26] MEDS ORDERED: FLUCONAZOLE 100 MG TAB PO SCH (09:00)
--- NOTE | 2019-06-26 17:41 | DS ---
Date of Discharge: 06/25/2019 Hospital Course: This patient is a 58-year-old female, who presented for chest pain. She has a hist ory of bipolar disorder, anxiety and depression, asthma, diabetes, hypertension, , cholecyst ectomy, and a possible CVA. This patient also complained depression with suicidal ideation. In hosp ital, her troponin negative x2. Echo was ordered, which demonstrated normal ejection fraction. Ches t x-ray and EKG unremarkable. Cardiology was consulted for chest pain. This is atypical chest pain. This is most likely secondary to anxiety and depression. Her medical situation is stable. TSH is slightly elevated. Hospital Laboratory Technician is cleared for discharge. However, this patient has reported suicid al ideation. Psychiatrist was then consulted. Patient was noted to plan to overdose of her medicati on. She needs inpatient psych placement. I did consult the case with Dr. Hodge from [facility], who has kindly accepted this patient. Patient will be transferred to the [facility] for f urther management. Her vitals are stable at discharge. Physical Examination On Discharge: Vital Signs: Temperature 97.4, pulse 72, blood pressure 105/62, oxygen saturation 98% on room air. HEENT: Unremarkable. PERRLA. Neck: Supple. No JVD. Chest: Clear to auscultation. No labored breathing. No wheezing. No shortness of breath. Heart: Normal S1, S2. Regular rhythm and rate. No murmur. Abdomen: Soft, nontender. Bowel sounds are present. Extremities: No edema, no cyanosis. Neuro: Patient is oriented, nonfocal. Psych: Patient appears to be agitated and anxious. She has pressured speech. Skin: No rashes. Laboratory Data On Discharge: WBC 7, hemoglobin 11, platelets 117. Sodium 136, potassium 4, glucose 136. Magnesium 1.5, which was replaced. TSH 12.7. Discharge Medications: Please see discharge medication list. Discharge Diagnoses: 1.Chest pain, atypical. 2.Suicidal ideation. 3.Bipolar disorder. 4.Anxiety and depression. 5.Diabetes. 6.Hypertension. 7.Hypothyroidism. Discharge Instructions: 1.Please follow chain sales consultant after discharging from [facility] in 1 week. 2.Follow PCP in 1 or 2 weeks after discharging from [facility]. Discharge Condition: Stable. QT/MODL Voice ID: [id number] Report ID: [id number]
== END 2019-06-25 19:00 ==
LOC: ER 18:46 → ERHOLD 21:51 → 4TH 23:07
PROVIDERS: ADMIT Hospitalist; ATTEND Hospitalist
DX: R07.89 Other chest pain (principal); R45.851 Suicidal ideations; F32.2 Major depressive disorder, single episode, severe without psychotic features; Z96.653 Presence of artificial knee joint, bilateral; E11.9 Type 2 diabetes mellitus without complications; I10 Essential (primary) hypertension; E03.9 Hypothyroidism, unspecified
CPT/HCPCS: 36415; 71045; 80048; 80076; 80164; 80307; 80320; 80329; 81003; 82947; 83735; 83880; 84439; 84443; 84484; 85025; 85610; 85730; 93005; 93306; 94640; 96361; 96365; 96375; 99285; G0378; J1650; J1720; J2930; J3475; J7030; J7512

== ENCOUNTER 2019-09-29 13:52 | Inpatient (IN) | payer OTHER ==
--- OUTSIDE RECORDS SUMMARY | 2019-09-29 13:54 | XMS REPORT ---
:1960 Author Organization eClinicalWorks Care Team Providers Name Role Phone Ruth Matias Provider Role Unavailable Allergies, Adverse Reactions, Alerts Substance Reaction Event Type Latex Gloves rash Drug Allergy Monistat 1 vaginal swelling Drug Allergy Problems Problem Type Condition Code Onset Dates Condition Status Problem Low back pain M54.5 Active Problem Falling R29.6 Active Problem Pain in unspecified hip M25.559 Active Problem Diabetes mellitus, type 2 E11.9 Active Problem Acute peptic ulcer, site K27.2 Active unspecified, with both hemorrhage and perforation Problem Unspecified asthma, uncomplicated J45.909 Active Assessment House infested Z59.8 Active Problem Migraine, unspecified, not G43.901 Active intractable, with status migrainosus Problem Other specified diabetes mellitus E13.42 Active with diabetic polyneuropathy Problem Type 2 diabetes mellitus with E11.21 Active diabetic nephropathy Problem 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 Problem Sheryl albicans infection B37.9 Active Problem Acute cystitis without hematuria N30.00 Active Problem Chronic sinusitis J32.9 Active Problem Reactive depression F32.9 Active Problem Bladder spasm N32.89 Active Problem OAB (overactive bladder) N32.81 Active Problem Screening for colon cancer Z12.11 Active Problem Encounter for general adult medical Z00.00 Active examination without abnormal findings Problem Allergic rhinitis, seasonal J30.2 Active Problem 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 Active Problem House infested Z59.8 Active Problem Ingrown toenail L60.0 Active Assessment Unspecified asthma, uncomplicated J45.909 Active Problem Moderate persistent asthma, J45.40 Active unspecified whether complicated Assessment Anxiety F41.9 Active Problem 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 Assessment Grief F43.21 Active Problem Encounter for gynecological Z01.419 Active examination (general) (routine) without abnormal findings Assessment Reactive depression F32.9 Active Problem Encounter for immunization Z23 Active Problem Abdominal pain, RLQ (right lower R10.31 Active quadrant) Problem Anxiety F41.9 Active Problem Adult BMI 40.0-44.9 kg/sq m Z68.41 Active Problem Other chronic pain G89.29 Active Problem History of cerebrovascular accident I69.90 Active with current residual effects Problem Anemia D64.9 Active Problem [place] or callus L84 Active Problem Hypothyroidism E03.9 Active Problem Moderate asthma with acute J45.901 Active exacerbation, unspecified whether persistent Problem GERD with esophagitis K21.0 Active Problem Shoulder pain, unspecified M25.519 Active chronicity, unspecified laterality Problem Cellulitis of left elbow L03.114 Active Problem Grief F43.21 Active Problem Pressure injury of right buttock, L89.311 Active stage 1 Medications Medication Code Code Instructions Start End Status Dosage System Date Date Duloxetine HCl [facility] 52433064451 20 MG Orally Active not defined Twice a day Valsartan ND 14220884633 80 MG Orally May 30, Active 1 tablet Once a day 2018 Oxybutynin [facility] 27241256173 5 Orally Twice November Active take 1 tablet Chloride a day , by mouth 2019 twice daily. Metformin HCl [facility] 05622236064 500 Orally Active take 1 tablet twice a day by mouth with meals three times daily. Meloxicam [facility] 79911614674 7.5 MG Oral Active TK 1 T PO QD Baclofen ND 25807462966 10 MG Orally Active 1 tablet with Twice a day food or milk Miconazole [facility] 63109677454 2 % Externally Sept Active 1 application Antifungal Twice a day 10, to affected 2018 area Quetiapine ND 26589116919 300 MG Orally Active 1 tablet at Fumarate Once a day bedtime ProAir HFA [facility] 63177757599 108 (90 Base) May 10, Active 2 puffs as MCG/ACT 2018 needed Inhalation every 6 hrs PRN Divalproex ND 51615124944 500 MG Orally Active 3 tabs Sodium ER at bedtime Melatonin ND 48965881962 5 MG Orally Active 1 tablet at Once a day bedtime as needed with food Amlodipine ND 10484109841 5 MG Orally May 09, Active 1 tablet Besylate Once a day 2018 Theragran-M [facility] 88572847125 - Orally daily Active 1 Loratadine [facility] 79607173505 10 MG Active 1 TABLET ORALLY ONCE DIALY Trazodone HCl ND 69179471258 100 MG Orally Active 2 tablets Once a day Tizanidine HCl ND 95158201260 2 MG Orally Active 1 tablet as bid needed Famotidine ND 56112715761 40 MG Orally Active 1 tablet twice a day Albuterol [facility] 19878518377 (2.5 MG/3ML) Active 3 ml as Sulfate 0.083% needed Inhalation Three times a day Simvastatin ND 45753968466 20 Orally Once Active 1 tablet in a day the evening Breo Ellipta ND 25421019646 200-25 MCG/INH Active 1 puff Inhalation Once a day Levothyroxine ND 50723456352 25 MCG Orally Active 1 tablet on Sodium Once a day an empty stomach in the morning along with 200mcg tab total 225 mcg daily Omeprazole ND 99309209636 40 Orally Once Active 1 capsule a day Tramadol HCl NDC 0 Orally tid Active 1 tablet as needed Estradiol ND 70231564926 0.1 MG/GM Active as directed Vaginal Two times a Week Vitamin D3 [facility] 20039895540 1000 UNIT Active 1 tablet Orally Once a day Results No Known Results Summary Purpose eClinicalWorks Submission
--- OUTSIDE RECORDS SUMMARY | 2019-09-29 13:54 | XMS REPORT ---
[...] asthma, J45.40 Active unspecified whether complicated Problem [place] or callus L84 Active Problem Hypothyroidism E03.9 [...] End Status Dosage System Date Date Levothyroxine [facility] 84709510497 25 MCG Orally Active 1 tablet Sodium Once a day on an empty stomach in the morning along with 200mcg tab total 225 mcg daily Results No Known Results Summary Purpose eClinicalWorks Submission
--- OUTSIDE RECORDS SUMMARY | 2019-09-29 13:55 | XMS REPORT ---
:1960 Author Organization eClinicalWorks Care Team Providers Name Role Phone Ruth Matias Provider Role Unavailable Allergies No Known Allergies Problems Problem Type Condition Code Onset Dates Condition Status Problem Acute peptic ulcer, site K27.2 Active unspecified, with both hemorrhage and perforation Problem Pain in unspecified hip M25.559 Active Problem Migraine, unspecified, not G43.901 Active intractable, with status migrainosus Problem Unspecified asthma, uncomplicated J45.909 Active Problem Other specified diabetes mellitus E13.42 Active with diabetic polyneuropathy Problem Type 2 diabetes mellitus with E11.21 Active diabetic nephropathy Problem 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 Problem Chronic sinusitis J32.9 Active Problem Ingrown toenail L60.0 Active Problem 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 Active Problem OAB (overactive bladder) N32.81 Active Problem Bladder spasm N32.89 Active Problem Allergic rhinitis, seasonal J30.2 Active Problem 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 Problem Encounter for immunization Z23 Active Problem Moderate persistent asthma, J45.40 Active unspecified whether complicated Problem Rash R21 Active Problem Abscess, scalp L02.811 Active Problem Anxiety F41.9 Active Problem Hypothyroidism E03.9 Active Problem Adult BMI 40.0-44.9 kg/sq m Z68.41 Active Problem Chronic frontal sinusitis J32.1 Active Problem Anemia D64.9 Active Problem Abdominal pain, RLQ (right lower R10.31 Active quadrant) Problem Encounter for gynecological Z01.419 Active examination (general) (routine) without abnormal findings Problem Moderate asthma with acute J45.901 Active exacerbation, unspecified whether persistent Problem Screening for colon cancer Z12.11 Active Problem House infested Z59.8 Active Problem Encounter for general adult medical Z00.00 Active examination without abnormal findings Problem Low back pain M54.5 Active Problem Pressure injury of right buttock, L89.311 Active stage 1 Problem Diabetes mellitus, type 2 E11.9 Active Problem GERD with esophagitis K21.0 Active Problem [place] or callus L84 Active Problem Other chronic pain G89.29 Active Problem Falling R29.6 Active Problem Grief F43.21 Active Problem Shoulder pain, unspecified M25.519 Active chronicity, unspecified laterality Problem Acute cystitis without hematuria N30.00 Active Problem History of cerebrovascular accident I69.90 Active with current residual effects Problem Reactive depression F32.9 Active Problem Cellulitis of left elbow L03.114 Active Problem Sheryl albicans infection B37.9 Active Medications Medication Code System Code Instructions Start End Date Status Dosage Date Robbiangle [facility] 93943994479 8 MG Orally Once Aug 14, Active 1 tablet a day 2019 as needed Results No Known Results Summary Purpose eClinicalWorks Submission
--- OUTSIDE RECORDS SUMMARY | 2019-09-29 13:55 | XMS REPORT ---
:1960 Author Organization eClinicalWorks Care Team Providers Name Role Phone Ruth Matias Provider Role Unavailable Allergies, Adverse Reactions, Alerts Substance Reaction Event Type Latex Gloves rash Drug Allergy Monistat 1 vaginal swelling Drug Allergy Problems Problem Type Condition Code Onset Dates Condition Status Problem Pain in unspecified hip M25.559 Active Problem Diabetes mellitus, type 2 E11.9 Active Problem Unspecified asthma, uncomplicated J45.909 Active Problem Acute peptic ulcer, site K27.2 Active unspecified, with both hemorrhage and perforation Problem Migraine, unspecified, not G43.901 Active intractable, with status migrainosus Problem Other specified diabetes mellitus E13.42 Active with diabetic polyneuropathy Assessment Sheryl albicans infection B37.9 Active Problem Type 2 diabetes mellitus with E11.21 Active diabetic nephropathy Problem 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 Problem Chronic sinusitis J32.9 Active Problem Ingrown toenail L60.0 Active Problem Reactive depression F32.9 Active Problem OAB (overactive bladder) N32.81 Active Problem 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 Active Problem Bladder spasm N32.89 Active Problem Moderate persistent asthma, J45.40 Active unspecified whether complicated Problem 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 Problem Abscess, scalp L02.811 Active Problem House infested Z59.8 Active Problem Hypothyroidism E03.9 Active Problem Anemia D64.9 Active Problem Abdominal pain, RLQ (right lower R10.31 Active quadrant) Problem Rash R21 Active Problem Allergic rhinitis, seasonal J30.2 Active Problem Moderate asthma with acute J45.901 Active exacerbation, unspecified whether persistent Problem Screening for colon cancer Z12.11 Active Problem Encounter for immunization Z23 Active Assessment Abscess, scalp L02.811 Active Problem Encounter for general adult medical Z00.00 Active examination without abnormal findings Assessment Rash R21 Active Problem Encounter for gynecological Z01.419 Active examination (general) (routine) without abnormal findings Problem Falling R29.6 Active Problem Grief F43.21 Active Problem Low back pain M54.5 Active Problem Pressure injury of right buttock, L89.311 Active stage 1 Problem History of cerebrovascular accident I69.90 Active with current residual effects Problem Anxiety F41.9 Active Problem [place] or callus L84 Active Problem Other chronic pain G89.29 Active Problem Adult BMI 40.0-44.9 kg/sq m Z68.41 Active Problem Sheryl albicans infection B37.9 Active Problem Shoulder pain, unspecified M25.519 Active chronicity, unspecified laterality Problem Acute cystitis without hematuria N30.00 Active Problem GERD with esophagitis K21.0 Active Problem Cellulitis of left elbow L03.114 Active Medications Medication Code Code Instructions Start End Status Dosage System Date Date Oxybutynin [facility] 12385793212 5 Orally Twice November Active take 1 tablet Chloride a day , by mouth 2019 twice daily. ProAir HFA [facility] 84515171058 108 (90 Base) May 10, Active 2 puffs as MCG/ACT 2017 needed Inhalation every 6 hrs PRN Metformin HCl [facility] 57740199200 500 Orally Active take 1 tablet twice a day by mouth with meals three times daily. Tizanidine HCl [facility] 69086342401 2 MG Orally Active 1 tablet as bid needed Trazodone HCl [facility] 49953495822 100 MG Orally Active 2 tablets Once a day Divalproex [facility] 97907620406 500 MG Orally Active 3 tabs Sodium ER at bedtime Baclofen ND 63508565336 10 MG Orally Active 1 tablet with Twice a day food or milk Omeprazole [facility] 79822471970 40 Orally Once Active 1 capsule a day Simvastatin ND 07846101495 20 Orally Once Active 1 tablet in a day the evening Duloxetine HCl [facility] 74909289615 20 MG Orally Active not defined Twice a day Nystatin [facility] 77703167007 512260 UNIT/GM Jul 18, Sep 16, Active 1 application Externally 2018 2019 Twice a day to effected area Levothyroxine ND 49016157588 25 MCG Orally Active 1 tablet on Sodium Once a day an empty stomach in the morning along with 200mcg tab total 225 mcg daily Vitamin D3 [facility] 26855703866 1000 UNIT Active 1 tablet Orally Once a day Theragran-M [facility] 40195604380 - Orally daily Active 1 Meloxicam [facility] 09443810974 7.5 MG Oral Active TK 1 T PO QD Sulfamethoxazole [facility] 30806988241 800-160 MG Jul 18, Jul 28, Active 1 tablet -Trimethoprim Orally Twice a 2018 2018 day Quetiapine ND 37046281144 300 MG Orally Active 1 tablet at Fumarate Once a day bedtime Valsartan ND 38096263651 80 MG Orally May 30, Active 1 tablet Once a day 2018 Amlodipine ND 93226060783 5 MG Orally May 09, Active 1 tablet Besylate Once a day 2017 Melatonin ND 12150441817 5 MG Orally Active 1 tablet at Once a day bedtime as needed with food Tramadol HCl NDC 0 Orally tid Active 1 tablet as needed Albuterol [facility] 37152823217 (2.5 MG/3ML) Active 3 ml as Sulfate 0.083% needed Inhalation Three times a day Breo Ellipta [facility] 48436590745 200-25 MCG/INH Active 1 puff Inhalation Once a day Estradiol ND 15100495284 0.1 MG/GM Active as directed Vaginal Two times a Week Results No Known Results Summary Purpose eClinicalWorks Submission
--- OUTSIDE RECORDS SUMMARY | 2019-09-29 13:55 | XMS REPORT ---
:1960 Author Organization e[employer]Works Care Team Providers Name Role Phone Ruth Matias Provider Role Unavailable Allergies, Adverse Reactions, Alerts Substance Reaction Event Type Latex Gloves rash Drug Allergy Monistat 1 vaginal swelling Drug Allergy Problems Problem Type Condition Code Onset Dates Condition Status Problem Migraine, unspecified, not G43.901 Active intractable, with status migrainosus Problem Falling R29.6 Active Problem Type 2 diabetes mellitus with E11.21 Active diabetic nephropathy Problem Other specified diabetes mellitus E13.42 Active with diabetic polyneuropathy Problem 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 Problem Chronic sinusitis J32.9 Active Problem Diabetes mellitus, type 2 E11.9 Active Problem 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 Active Problem Allergic rhinitis, seasonal J30.2 Active Problem Anemia D64.9 Active Problem Hypothyroidism E03.9 Active Problem Grief F43.21 Active Problem Other chronic pain G89.29 Active Problem Anxiety F41.9 Active Problem GERD with esophagitis K21.0 Active Problem Sheryl albicans infection B37.9 Active Problem Pressure injury of right buttock, L89.311 Active stage 1 Problem Cellulitis of left elbow L03.114 Active Problem OAB (overactive bladder) N32.81 Active Problem Bladder spasm N32.89 Active Problem Acute cystitis without hematuria N30.00 Active Problem Reactive depression F32.9 Active Assessment Pain in left knee M25.562 Active Assessment GERD with esophagitis K21.0 Active Assessment 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 Assessment Chronic frontal sinusitis J32.1 Active Problem 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 Assessment Pain in right knee M25.561 Active Problem Moderate persistent asthma, J45.40 Active unspecified whether complicated Problem Encounter for immunization Z23 Active Problem Encounter for general adult medical Z00.00 Active examination without abnormal findings Problem Encounter for gynecological Z01.419 Active examination (general) (routine) without abnormal findings Problem Pain in left knee M25.562 Active Problem Chronic frontal sinusitis J32.1 Active Problem Pain in right knee M25.561 Active Problem Pain in unspecified hip M25.559 Active Problem House infested Z59.8 Active Problem Shoulder pain, unspecified M25.519 Active chronicity, unspecified laterality Problem Screening for colon cancer Z12.11 Active Problem Adult BMI 40.0-44.9 kg/sq m Z68.41 Active Problem Rash R21 Active Problem Abdominal pain, RLQ (right lower R10.31 Active quadrant) Problem Abscess, scalp L02.811 Active Problem Moderate asthma with acute J45.901 Active exacerbation, unspecified whether persistent Problem History of cerebrovascular accident I69.90 Active with current residual effects Problem [place] or callus L84 Active Problem Low back pain M54.5 Active Problem Ingrown toenail L60.0 Active Problem Acute peptic ulcer, site K27.2 Active unspecified, with both hemorrhage and perforation Problem Unspecified asthma, uncomplicated J45.909 Active Medications Medication Code Code Instructions Start End Status Dosage System Date Date Oxybutynin [facility] 79205831518 5 Orally Twice November Active take 1 tablet Chloride a day , by mouth 2019 twice daily. Valsartan [facility] 76196668868 80 MG Orally May 30, Active 1 tablet Once a day 2018 Trazodone HCl [facility] 52483438536 100 MG Orally Active 2 tablets Once a day Nystatin [facility] 16106758364 564322 UNIT/GM Jul 18, Sep 16, Active 1 application Externally 2018 2019 Twice a day to effected area Levothyroxine ND 98525567372 25 MCG Orally Active 1 tablet on Sodium Once a day an empty stomach in the morning along with 200mcg tab total 225 mcg daily Simvastatin ND 86827694562 20 Orally Once Active 1 tablet in a day the evening Amoxicillin-Pot [facility] 14210402087 875-125 MG Aug 13, Aug 23, Active 1 tablet Clavulanate Orally every 2019 2019 12 hrs Tizanidine HCl ND 39796714880 2 MG Orally Active 1 tablet as bid needed Albuterol [facility] 93021201741 (2.5 MG/3ML) Active 3 ml as Sulfate 0.083% needed Inhalation Three times a day ProAir HFA [facility] 48797595682 108 (90 Base) May 10, Active 2 puffs as MCG/ACT 2018 needed Inhalation every 6 hrs PRN Breo Ellipta [facility] 35116570417 200-25 MCG/INH Active 1 puff Inhalation Once a day Tramadol HCl NDC 0 Orally tid Active 1 tablet as needed Metformin HCl [facility] 54052083263 500 Orally Active take 1 tablet twice a day by mouth with meals three times daily. Omeprazole [facility] 85719251226 40 Orally Once Active 1 capsule a day Divalproex [facility] 50215623824 500 MG Orally Active 3 tabs Sodium ER at bedtime Meloxicam [facility] 78255550279 7.5 MG Oral Nila Active 1 tablet Once a day 2019 Duloxetine HCl [facility] 65383053084 20 MG Orally Active not defined Twice a day Quetiapine [facility] 78260068836 300 MG Orally Active 1 tablet at Fumarate Once a day bedtime Estradiol [facility] 31732706343 0.1 MG/GM Active as directed Vaginal Two times a Week Results No Known Results Summary Purpose eClinicalWorks Submission
--- OUTSIDE RECORDS SUMMARY | 2019-09-29 13:55 | XMS REPORT ---
[...] Active Problem Reactive depression F32.9 Active Assessment Screening for breast cancer Z12.39 Active Assessment Diabetes mellitus, type 2 E11.9 Active Assessment Falling R29.6 Active Problem 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 Assessment Urine frequency R35.0 Active Problem Moderate persistent asthma, J45.40 Active [...] I69.90 Active with current residual effects Problem [place] or callus L84 Active Problem Low back pain M54.5 Active Problem Ingrown toenail L60.0 Active Problem Acute peptic ulcer, site K27.2 Active unspecified, with both hemorrhage and perforation Problem Unspecified asthma, uncomplicated J45.909 Active Medications Medication Code Code Instructions Start End Date Status Dosage System Date Quetiapine [facility] 46011761743 300 MG Orally Active 1 tablet Fumarate Once a day at bedtime Tizanidine HCl [facility] 93073353101 2 MG Orally bid Active 1 tablet as needed Levothyroxine [facility] 26007226222 25 MCG Orally Active 1 tablet Sodium Once a day on an empty stomach in the morning along with 200mcg tab total 225 mcg daily Tramadol HCl NDC 0 Orally tid Active 1 tablet as needed Metformin HCl [facility] 02855108762 500 Orally Active take 1 twice a day tablet by with meals mouth three times daily. Zofran [facility] 59306111511 8 MG Orally Aug 14, Active 1 tablet Once a day 2019 as needed Duloxetine HCl [facility] 87836423934 20 MG Orally Active not Twice a day defined Meloxicam [facility] 00984812134 7.5 MG Oral November Active 1 tablet Once a day 2019 Omeprazole [facility] 02168605087 40 Orally Once Active 1 capsule a day Estradiol [facility] 81422858782 0.1 MG/GM Active as Vaginal Two directed times a Week Divalproex [facility] 52774910596 500 MG Orally Active 3 tabs Sodium ER at bedtime Simvastatin ND 89291249175 20 Orally Once Active 1 tablet a day in the evening Oxybutynin [facility] 97462016282 5 Orally Twice November Active take 1 Chloride a day 2019 tablet by mouth twice daily. Breo Ellipta [facility] 53122967946 200-25 MCG/INH Active 1 puff Inhalation Once a day ProAir HFA [facility] 49382106846 108 (90 Base) May 10, Active 2 puffs as MCG/ACT 2017 needed Inhalation every 6 hrs PRN Valsartan [facility] 03659290469 80 MG Orally May 30, Active 1 tablet Once a day 2018 Trazodone HCl [facility] 64095085240 100 MG Orally Active 2 tablets Once a day Albuterol [facility] 42585742783 (2.5 MG/3ML) Active 3 ml as Sulfate 0.083% needed Inhalation Three times a day Results No Known Results Summary Purpose eClinicalWorks Submission
[2019-09-29] MEDS ORDERED: ONDANSETRON 4 MG/2 ML VIAL ONE ×2 (15:21→21:46)
[2019-09-29] MEDS ORDERED: MORPHINE 4 MG/ML SYR ONE ×2 (15:21→21:46)
[2019-09-29 15:30] LABS: Hematocrit 34.3 % (36.0-45.0); RBC Red Blood Cell Count 3.57 M/uL (3.86-4.86)
[2019-09-29 15:31] LABS: Absolute Lymphocytes (CBC) 2.2 K/uL (0.7-4.9); Basophils % 0.7 % (0-1.3); Lymphocytes % 34.5 % (15.3-44.8); MPV 9.7 fL (7.6-11.3)
[2019-09-29 15:55] LABS: ALT/SGPT 20 U/L (12-78); AST/SGOT 10 U/L (15-37); Albumin 3.1 g/dL (3.4-5.0); Alkaline Phosphatase 66 U/L (45-117); BUN Blood Urea Nitrogen 13 mg/dL (7-18); Bicarbonate 29 mmol/L (21-32); Bilirubin Direct < 0.1 mg/dL (0-0.2); Bilirubin Total 0.2 mg/dL (0.2-1.0); Glucose Level 80 mg/dL (74-106); Lipase 88 U/L (73-393); Potassium 4.6 mmol/L (3.5-5.1); Protein, Total 6.9 g/dL (6.4-8.2); Sodium Level 137 mmol/L (136-145)
[2019-09-29] MEDS ORDERED: KETOROLAC 30 MG/ML INJ ONE (16:46)
--- NOTE | 2019-09-29 17:09 | RAD REPORT ---
EXAM DESCRIPTION: CT - Stone Protocol - 09/29/2019 4:58 pm CLINICAL HISTORY: Flank pain. left flank pain;Abd pain COMPARISON: CT ABD PELVIS W CONTRAST dated 03/25/2009 TECHNIQUE: Axial images were obtained without oral or IV contrast. Lack of contrast limits solid org an and vascular assessment. The [id number] spans the entirety of the system partially obscuring uppermost abdomen and lung bases. Coronal reformatted images were obtained and reviewed. All CT scans are performed using dose optimization technique as appropriate and may include automated exposure control or mA/KV adjustment according to patient size. FINDINGS: The lower lung [place] are clear. Cholecystectomy clips. Imaged portions of the liver and spleen show no suspicious findings on non-contrast imaging. The panc reas and adrenal glands are normal. No pathologic lymphadenopathy in the abdomen or pelvis. No urinary tract stones or obstructive uropathy. Several mildly dilated small bowel loops are seen in the left abdomen measuring up to 3.5 cm. These a re fluid-filled. Mild edema is present in the small bowel mesenteric with several small lymph nodes p resent. The appendix is not identified as a discrete structure, however, no secondary findings of emperatriz endicitis are identified. No significant bony abnormality. IMPRESSION: No urinary tract stones or obstructive uropathy. Mildly fluid-filled and dilated small bowel loops in the left abdomen measuring up to 3.5 cm. Primary consideration would include enteritis versus early mechanical small-bowel obstruction. Consider foll owup imaging in 24-48 hours if clinical symptomology persists to evaluate for possible progression.
[2019-09-29] MEDS ORDERED: NA CHLORIDE 0.9% 1,000 ML ONE (18:06)
[2019-09-29] MEDS ORDERED: CIPROFLOXACIN 400mg IV 400 MG/200 ML BAG IV ONE (18:06)
[2019-09-29] MEDS ORDERED: METRONIDAZOLE 500mg IVPB 500 MG/100 ML BAG IV ONE (18:06)
--- NOTE | 2019-09-29 18:27 | P.HP ---
Certification for Inpatient Patient admitted to: Observation With expected LOS: <2 Midnights Practitioner: I am a practitioner with admitting privileges, knowledge of patient current condition, hospital course, and medical plan of care. Services: Services provided to patient in accordance with Admission requirements found in Title 42 Section 412.3 of the Code of Federal Regulations Patient History Date of Service: 10/01/19 Reason for admission: Abdominal pain History of Present Illness: 59-year-old woman with a history depression, bipolar disorder, CVA presented emergency department with a complaint of abdominal pain of onset 1 week ago, intermittent in nature. Patient stated abdominal pain became much severe this morning when she was taking a shower. CT abdomen and pelvis in the ED report small-bowel dilatation and fluid-filled small bowel suggesting enteritis versus obstruction. She stated her last bowel movement was this morning. She denied any vomiting. Patient is hospitalized for further management. Allergies No Known Drug Allergies Allergy (Verified 09/29/19 22:06) Unknown Home Medications: Duloxetine HCl [Cymbalta] 60 mg PO BID 07/24/17 Metformin HCl [Glucophage*] 500 mg PO TID 07/24/17 Quetiapine Fumarate [Quetiapine Fumarate ER] 300 mg PO BEDTIME 07/24/17 Fluticasone/Vilanterol [Breo Ellipta 200-25 Mcg INH] 1 each IH DAILY #30 blst.w.dev 07/25/17 Divalproex Sodium [Divalproex Sodium ER] 1,000 mg PO BEDTIME 06/24/19 Levothyroxine Sodium [Synthroid] 200 mcg PO DAILY 06/24/19 Oxybutynin Chloride 5 mg PO BID 06/24/19 Simvastatin 20 mg PO BEDTIME 06/24/19 Tizanidine HCl [Zanaflex] 2 mg PO BID 06/24/19 Tramadol HCl [Ultram] 50 mg PO TIDP PRN 06/24/19 Trazodone HCl 200 mg PO BEDTIME 06/24/19 - Past Medical/Surgical History Diabetic: Yes -: depression -: bipolar -: hypertension -: cva -: asthma -: NIDDM -: short term memory problems -: hysterectomy -: bilateral knee replacement -: susy -: csections -: right wrist surgery - Family History Father -: Cancer Notes: skin Mother -: Heart disease, Diabetes - Social History Alcohol use: No CD- Drugs: No Caffeine use: No Review of Systems Other: Except as documented, all other systems reviewed and negative Physical Examination - Physical Exam General: Alert, In no apparent distress, Oriented x3 HEENT: Atraumatic, PERRLA, Mucous membr. moist/pink, Sclerae nonicteric Neck: Supple, JVD not distended, No Thyromegaly Respiratory: Clear to auscultation bilaterally, Normal air movement Cardiovascular: No edema, Regular rate/rhythm, Normal S1 S2, No murmurs Capillary refill: <2 Seconds Gastrointestinal: Normal bowel sounds, Soft and benign, Non-distended, No rebound, No guarding, Tenderness (Moderate tenderness in the lower abdomen) Musculoskeletal: No swelling, No erythema Integumentary: No rashes Neurological: Normal speech, Normal strength at 5/5 x4 extr, Cranial nerves 3- 12 intact - Studies Laboratory Data (last 24 hrs) 09/29/19 15:10: Creatinine 0.89 09/29/19 15:10: WBC 6.2, Hgb 11.3 L, Hct 34.3 L, Plt Count 201 09/29/19 15:10: Sodium 137, Potassium 4.6, BUN 13, Creatinine 0.89, Glucose 80, Total Bilirubin 0.2, AST 10 L, ALT 20, Alkaline Phosphatase 66, Lipase 88 Assessment and Plan - Problems (Diagnosis) (1) Gastroenteritis Current Visit: Yes Status: Acute (2) Partial small bowel obstruction Current Visit: Yes Status: Resolved (3) DM type 2 (diabetes mellitus, type 2) Current Visit: Yes Status: Chronic - Plan Placed under observation Supportive measures with IV hydration Pain management as needed. Antiemetics Keep NPO Consult general surgery. Monitor and optimize electrolytes. - Advance Directives Does patient have a Living Will: No Does patient have a Durable POA for Healthcare: No
--- NOTE | 2019-09-29 18:33 | ER ---
Nurse's Notes [facility] Name: Radha Santos Age: 59 yrs Sex: Female : 1960 Arrival Date: 09/29/2019 Time: 13:59 Bed 13 Private MD: Diagnosis: Abdominal and pelvic pain;Enteritis Presentation: 09/29 14:04 Presenting complaint: EMS states: LEFT FLANK PAIN x10 HR, REFERRED BY PCP. Transition bp of care: patient was not received from another setting of care. Onset of symptoms is unknown. Risk Assessment: Do you want to hurt yourself or someone else? Patient reports no desire to harm self or others. Initial Sepsis Screen: Does the patient meet any 2 criteria? HR > 90 bpm. No. Patient's initial sepsis screen is negative. Does the patient have a suspected source of infection? No. Patient's initial sepsis screen is negative. Care prior to arrival: Glucose check: 135. 14:04 Method Of Arrival: EMS: [facility] bp 14:04 Acuity: SAURAV 3 bp Triage Assessment: 14:11 General: Appears in no apparent distress. comfortable, obese, Behavior is cooperative, bp appropriate for age, anxious. Pain: Complains of pain in left flank. EENT: No deficits noted. Neuro: No deficits noted. Cardiovascular: No deficits noted. Respiratory: No deficits noted. GI: No signs and/or symptoms were reported involving the gastrointestinal system. : No signs and/or symptoms were reported regarding the genitourinary system. Derm: No deficits noted. Musculoskeletal: No deficits noted. Historical: - Allergies: 14:11 No Known Allergies; bp - Home Meds: 14:11 benztropine 0.5 mg Oral tab 1 tab 2 times per day [Active]; divalproex 500 mg Oral TbEC bp 3 tabs nightly [Active]; divalproex 500 mg Oral Tb24 2 tabs once daily [Active]; Breo Ellipta 200 mcg oral caps take 1 puff DAILY [Active]; duloxetine 60 mg Oral cpDR 1 cap twice a day [Active]; famotidine 40 mg Oral tab 1 tab 2 times per day [Active]; fexofenadine 180 mg Oral tab 1 tab once daily [Active]; gabapentin 300 mg Oral cap 1 cap four times a day [Active]; Januvia 100 mg Oral tab 1 tab once daily [Active]; Levothroid 175 mcg Oral tab 1 tab once daily [Active]; levothyroxine 200 mcg tab 1 tab once daily [Active]; meloxicam 7.5 mg Oral tab 1 tab once daily [Active]; metformin 500 mg Oral tr24 1 tab three times a day [Active]; valsartan-hydrochlorothiazide 80-12.5 mg Oral tab 1 tab once daily [Active]; trazodone 100 mg Oral tab 1-3 tabs at night [Active]; oxybutynin chloride 5 mg Oral tab 1 tab 2 times per day [Active]; prednisone 20 mg Oral tab once daily [Active]; quetiapine 300 mg Oral tab 1 tab once daily [Active]; Seroquel 400 mg Oral tab 1 tab at 6 pm [Active]; simvastatin 20 mg Oral tab 1 tab once daily [Active]; omeprazole 40 mg Oral cpDR 1 cap once daily [Active]; tramadol 50 mg Oral tab 1 tab three times a day [Active]; Singulair 10 mg Oral tab 1 tab once daily [Active]; tizanidine 2 mg Oral cap 1 caps twice a day [Active]; - PMHx: 14:11 Anxiety; chronic back pain; CVA; Depression; Diabetes - NIDDM; GERD; High Cholesterol; bp Hypertension; Hypothyroidism; - Immunization history:: Adult Immunizations up to date. - Coronavirus screen:: The patient has NOT traveled to [place] in the past 14 days. The patient has NOT had contact with known/suspected case of Coronavirus? Proceed with normal triage procedures. - Social history:: Smoking status: Patient denies any tobacco usage or history of. - Ebola Screening: : No symptoms or risks identified at this time. Screenin:16 Abuse screen: Denies threats or abuse. Denies injuries from another. Nutritional bp screening: No deficits noted. Tuberculosis screening: No symptoms or risk factors identified. Fall Risk None identified. Assessment: 14:16 General: SEE TRIAGE NOTE. bp 16:12 Reassessment: ALL CURRENT ORDERS COMPLETED, NO S/S ACUTE DISTRESS. bp 16:47 Reassessment: VS STABLE. CT STONE PROTOCOL. bp 17:46 Reassessment: ALL CURRENT ORDERS COMPLETED, DISPO PENDING. NO S/S ACUTE DISTRESS. bp 18:17 Reassessment: PT TBA 2/2 ENTERITIS. ADMIT MD AT B/S. bp Vital Signs: 14:15 BP 150 / 95; Pulse 100; Resp 16; Temp 98; Pulse Ox 99% ; bp 15:11 BP 108 / 86; Pulse 82; Resp 16; Pulse Ox 95% ; bp 16:12 BP 100 / 56; Pulse 86; Resp 16; Pulse Ox 97% ; bp 16:47 BP 145 / 74; Pulse 70; Resp 16; Pulse Ox 100% ; bp 17:46 BP 127 / 70; Pulse 73; Resp 16; Pulse Ox 99% ; bp 18:17 BP 126 / 66; Pulse 79; Resp 16; Pulse Ox 97% ; bp 20:00 BP 124 / 62; Pulse 76; Resp 18; Temp 98; Pulse Ox 100% on R/A; mg2 ED Course: 13:59 Patient arrived in ED. bp 14:05 Triage completed. bp 14:10 Minesh Joseph MD is Attending Physician. kdr 14:15 Arm band placed on. bp 14:16 Patient has correct armband on for positive identification. Bed in low position. Call bp light in reach. Side rails up X2. 14:54 Tai Sweeney, RIMA is Primary Nurse. bp 15:10 Inserted saline lock: 20 gauge in left wrist, using aseptic technique. Blood collected. bp 17:39 CT Stone Protocol In Process Unspecified. EDMS 17:53 Curtis Sellers is Hospitalizing Provider. kdr 20:21 No provider procedures requiring assistance completed. Patient admitted, IV remains in mg2 place. Administered Medications: 15:24 Drug: morphine 4 mg Route: IVP; Site: left wrist; bp 16:47 Follow up: Response: Pain is decreased bp 15:24 Drug: Zofran 4 mg Route: IVP; Site: left wrist; bp 16:47 Follow up: Response: No adverse reaction bp 16:46 Drug: Ketorolac 15 mg Route: IVP; Site: left forearm; bp 17:54 Follow up: Response: Pain is decreased bp 18:00 Drug: Flagyl 500 mg Volume: 100 ml; Route: IVPB; Rate: 200 ml/hr; Infused Over: 30 bp mins; Site: left wrist; 18:52 Follow up: IV Status: Completed infusion; IV Intake: 100ml bp 18:00 Drug: NS 0.9% 1000 ml Route: IV; Rate: 125 ml/hr; Site: left wrist; bp 20:26 Follow up: IV Status: Infusion continued upon admission mg2 18:53 Drug: Ciprofloxacin 400 mg Volume: 200 ml; Route: IVPB; Infused Over: 60 mins; Site: bp left wrist; 20:26 Follow up: Response: No adverse reaction; IV Status: Completed infusion mg2 21:44 Drug: Zofran 4 mg Route: IVP; Site: left hand; mg2 21:45 Follow up: Response: No adverse reaction mg2 21:45 Drug: morphine 4 mg Route: IVP; Site: left hand; mg2 21:45 Follow up: Response: No adverse reaction mg2 Intake: 18:52 IV: 100ml; Total: 100ml. bp Outcome: 17:54 Decision to Hospitalize by Provider. kdr 21:22 Admitted to Tele accompanied by tech, via wheelchair, room 430, with chart, Report mg2 called to RIMA Lang 21:22 Condition: stable 21:22 Instructed on the need for admit, Demonstrated understanding of instructions. 21:45 Patient left the ED. mg2 Signatures: Dispatcher [employer] EDMS Minesh Joseph MD MD kdr Tai Sweeney RN RN bp Wali Carrion, RIMA RN mg2 Corrections: (The following items were deleted from the chart) 09/30 00:18 0224 20:00 BP 124 / 62; Pulse 76bpm; Resp 18bpm; Pulse Ox 10% RA; Temp 98F; mg2 mg2
--- NOTE | 2019-09-29 18:34 | EDPHYS ---
Physician Documentation [facility] Name: Radha Santos Age: 59 yrs Sex: Female : 1960 Arrival Date: 09/29/2019 Time: 13:59 Bed 13 Private MD: ED Physician Minesh Joseph HPI: 09/29 18:18 This 59 yrs old Female presents to ER via EMS with complaints of Flank Pain. kdr 18:19 The patient presents with abdominal pain in the left upper quadrant, in the left lower kdr quadrant, that is diffuse, left flank. Onset: The symptoms/episode began/occurred gradually, 10 hour(s) ago. The symptoms radiate to the left flank. Associated signs and symptoms: none. The symptoms are described as achy, crampy, dull, shooting, stabbing, steady, waxing/waning. Modifying factors: The symptoms are alleviated by nothing, the symptoms are aggravated by movement, pressure, touching the area, walking. Severity of pain: At its worst the pain was moderate just prior to arrival, in the emergency department the pain has improved moderately. The patient has not experienced similar symptoms in the past. The patient has not recently seen a physician. Historical: - Allergies: 14:11 No Known Allergies; bp - Home Meds: 14:11 benztropine 0.5 mg Oral tab 1 tab 2 times per day [Active]; divalproex 500 mg Oral TbEC bp 3 tabs nightly [Active]; divalproex 500 mg Oral Tb24 2 tabs once daily [Active]; Breo Ellipta 200 mcg oral caps take 1 puff DAILY [Active]; duloxetine 60 mg Oral cpDR 1 cap twice a day [Active]; famotidine 40 mg Oral tab 1 tab 2 times per day [Active]; fexofenadine 180 mg Oral tab 1 tab once daily [Active]; gabapentin 300 mg Oral cap 1 cap four times a day [Active]; Januvia 100 mg Oral tab 1 tab once daily [Active]; Levothroid 175 mcg Oral tab 1 tab once daily [Active]; levothyroxine 200 mcg tab 1 tab once daily [Active]; meloxicam 7.5 mg Oral tab 1 tab once daily [Active]; metformin 500 mg Oral tr24 1 tab three times a day [Active]; valsartan-hydrochlorothiazide 80-12.5 mg Oral tab 1 tab once daily [Active]; trazodone 100 mg Oral tab 1-3 tabs at night [Active]; oxybutynin chloride 5 mg Oral tab 1 tab 2 times per day [Active]; prednisone 20 mg Oral tab once daily [Active]; quetiapine 300 mg Oral tab 1 tab once daily [Active]; Seroquel 400 mg Oral tab 1 tab at 6 pm [Active]; simvastatin 20 mg Oral tab 1 tab once daily [Active]; omeprazole 40 mg Oral cpDR 1 cap once daily [Active]; tramadol 50 mg Oral tab 1 tab three times a day [Active]; Singulair 10 mg Oral tab 1 tab once daily [Active]; tizanidine 2 mg Oral cap 1 caps twice a day [Active]; - PMHx: 14:11 Anxiety; chronic back pain; CVA; Depression; Diabetes - NIDDM; GERD; High Cholesterol; bp Hypertension; Hypothyroidism; - Immunization history:: Adult Immunizations up to date. - Coronavirus screen:: The patient has NOT traveled to [place] in the past 14 days. The patient has NOT had contact with known/suspected case of Coronavirus? Proceed with normal triage procedures. - Social history:: Smoking status: Patient denies any tobacco usage or history of. - Ebola Screening: : No symptoms or risks identified at this time. ROS: 18:19 Constitutional: Negative for fever, chills, and weight loss, Eyes: Negative for injury, kdr pain, redness, and discharge, ENT: Negative for injury, pain, and discharge, Neck: Negative for injury, pain, and swelling, Cardiovascular: Negative for chest pain, palpitations, and edema, Respiratory: Negative for shortness of breath, cough, wheezing, and pleuritic chest pain, Back: Negative for injury and pain, : Negative for injury, bleeding, discharge, and swelling, MS/Extremity: Negative for injury and deformity, Skin: Negative for injury, rash, and discoloration, Neuro: Negative for headache, weakness, numbness, tingling, and seizure activity. Psych: Negative for depression, anxiety, suicide ideation, homicidal ideation, and hallucinations, Allergy/Immunology: Negative for hives, rash, and allergies, Endocrine: Negative for neck swelling, polydipsia, polyuria, polyphagia, and marked weight changes, Hematologic/Lymphatic: Negative for swollen nodes, abnormal bleeding, and unusual bruising. 18:19 Abdomen/GI: Positive for abdominal pain, nausea and vomiting, nausea, vomiting, abdominal cramps, Negative for black/tarry stool, rectal pain, rectal bleeding, bowel incontinence. Exam: 18:19 Constitutional: This is a well developed, well nourished patient who is awake, alert, kdr and in no acute distress. Head/Face: Normocephalic, atraumatic. Eyes: Pupils equal round and reactive to light, extra-ocular motions intact. Lids and lashes normal. Conjunctiva and sclera are non-icteric and not injected. Cornea within normal limits. Periorbital areas with no swelling, redness, or edema. Neck: Trachea midline, no thyromegaly or masses palpated, and no cervical lymphadenopathy. Supple, full range of motion without nuchal rigidity, or vertebral point tenderness. No Meningismus. Chest/axilla: Normal chest wall appearance and motion. Nontender with no deformity. No lesions are appreciated. Cardiovascular: Regular rate and rhythm with a normal S1 and S2. No gallops, murmurs, or rubs. Normal PMI, no JVD. No pulse deficits. Respiratory: Lungs have equal breath sounds bilaterally, clear to auscultation and percussion. No rales, rhonchi or wheezes noted. No increased work of breathing, no retractions or nasal flaring. Back: No spinal tenderness. No costovertebral tenderness. Full range of motion. Skin: Warm, dry with normal turgor. Normal color with no rashes, no lesions, and no evidence of cellulitis. MS/ Extremity: Pulses equal, no cyanosis. Neurovascular intact. Full, normal range of motion. Neuro: Awake and alert, GCS 15, oriented to person, place, time, and situation. Cranial nerves II-XII grossly intact. Motor strength 5/5 in all extremities. Sensory grossly intact. Cerebellar exam normal. Normal gait. Psych: Awake, alert, with orientation to person, place and time. Behavior, mood, and affect are within normal limits. 18:19 Respiratory: the patient does not display signs of respiratory distress. 18:19 Abdomen/GI: Inspection: abdomen appears normal, Bowel sounds: active, Palpation: soft, mild abdominal tenderness, in the anterior aspect of left lateral abdomen, left upper quadrant and left lower quadrant, rebound tenderness, is not appreciated, voluntary guarding, is not appreciated, involuntary guarding, is not appreciated, tenderness to percussion. Vital Signs: 14:15 BP 150 / 95; Pulse 100; Resp 16; Temp 98; Pulse Ox 99% ; bp 15:11 BP 108 / 86; Pulse 82; Resp 16; Pulse Ox 95% ; bp 16:12 BP 100 / 56; Pulse 86; Resp 16; Pulse Ox 97% ; bp 16:47 BP 145 / 74; Pulse 70; Resp 16; Pulse Ox 100% ; bp 17:46 BP 127 / 70; Pulse 73; Resp 16; Pulse Ox 99% ; bp 18:17 BP 126 / 66; Pulse 79; Resp 16; Pulse Ox 97% ; bp 20:00 BP 124 / 62; Pulse 76; Resp 18; Temp 98; Pulse Ox 100% on R/A; mg2 MDM: 17:54 Patient medically screened. kdr 18:19 Data reviewed: vital signs, nurses notes, lab test result(s), radiologic studies, CT kdr scan. Counseling: I had a detailed discussion with the patient and/or guardian regarding: the historical points, exam findings, and any diagnostic results supporting the discharge/admit diagnosis, lab results, radiology results, the need for further work-up and treatment in the hospital. 09/29 14:24 Order name: Basic Metabolic Panel; Complete Time: 15:59 [facility] 09/29 14:24 Order name: CBC with Diff; Complete Time: 15:59 [facility] 09/29 14:24 Order name: Creatinine for Radiology; Complete Time: 15:59 [facility] 09/29 14:24 Order name: Hepatic Function; Complete Time: 15:59 [facility] 09/29 14:24 Order name: Lipase; Complete Time: 15:59 [facility] 09/29 16:01 Order name: CT Stone Protocol; Complete Time: 21:32 [facility] 09/29 14:24 Order name: IV Saline Lock; Complete Time: 15:10 [facility] 09/29 14:24 Order name: Labs collected and sent; Complete Time: 15:10 kdr Administered Medications: 15:24 Drug: morphine 4 mg Route: IVP; Site: left wrist; bp 16:47 Follow up: Response: Pain is decreased bp 15:24 Drug: Zofran 4 mg Route: IVP; Site: left wrist; bp 16:47 Follow up: Response: No adverse reaction bp 16:46 Drug: Ketorolac 15 mg Route: IVP; Site: left forearm; bp 17:54 Follow up: Response: Pain is decreased bp 18:00 Drug: Flagyl 500 mg Volume: 100 ml; Route: IVPB; Rate: 200 ml/hr; Infused Over: 30 bp mins; Site: left wrist; 18:52 Follow up: IV Status: Completed infusion; IV Intake: 100ml bp 18:00 Drug: NS 0.9% 1000 ml Route: IV; Rate: 125 ml/hr; Site: left wrist; bp 20:26 Follow up: IV Status: Infusion continued upon admission mg2 18:53 Drug: Ciprofloxacin 400 mg Volume: 200 ml; Route: IVPB; Infused Over: 60 mins; Site: bp left wrist; 20:26 Follow up: Response: No adverse reaction; IV Status: Completed infusion mg2 21:44 Drug: Zofran 4 mg Route: IVP; Site: left hand; mg2 21:45 Follow up: Response: No adverse reaction mg2 21:45 Drug: morphine 4 mg Route: IVP; Site: left hand; mg2 21:45 Follow up: Response: No adverse reaction mg2 Disposition: 09/29/19 17:54 Hospitalization ordered by Curtis Sellers for Inpatient Admission. Preliminary diagnosis are Abdominal and pelvic pain, Enteritis. - Bed requested for Telemetry/MedSurg (Inpatient). - Status is Inpatient Admission. mg2 - Condition is Fair. - Problem is new. - Symptoms have improved. Signatures: Dispatcher [employer] EDMS Minesh Joseph MD MD kdr Coni Blas RN RN cg Yo Bedolla NP [employer] pm1 Tai Sweeney RN RN bp Wali Carrion RN RN mg2 Corrections: (The following items were deleted from the chart) 20:20 17:54 Hospitalization Ordered by Curtis Sellers for Inpatient Admission. Preliminary cg diagnosis is Abdominal and pelvic pain; Enteritis. Bed requested for Telemetry/MedSurg (Inpatient). Status is Inpatient Admission. Condition is Fair. Problem is new. Symptoms have improved. kdr 21:45 20:20 09/29/2019 17:54 Hospitalization Ordered by Curtis Sellers for Inpatient mg2 Admission. Preliminary diagnosis is Abdominal and pelvic pain; Enteritis. Bed requested for Telemetry/MedSurg (Inpatient). Status is Inpatient Admission. Condition is Fair. Problem is new. Symptoms have improved. cg
[2019-09-29] MEDS: MORPHINE 2 MG/ML SYR IV PRN ×2 (20:17→23:49)
[2019-09-29] MEDS: ONDANSETRON 4 MG/2 ML VIAL IV PRN (20:18)
[2019-09-29 22:20] VITALS: BMI 35.2
[2019-09-29] MEDS: D5 0.9 NS 1,000 ML IV SCH (22:45)
[2019-09-30] MEDS: ONDANSETRON 4 MG/2 ML VIAL IV PRN ×4 (01:02→23:51)
[2019-09-30] MEDS: MORPHINE 2 MG/ML SYR IV PRN ×5 (03:31→22:51)
[2019-09-30] MEDS: INSULIN -REGULAR HUMAN 50 UNIT/0.5 ML ML SQ SCH ×4 (06:00→21:00)
[2019-09-30] MEDS: D5 0.9 NS 1,000 ML IV SCH ×2 (06:01→17:42)
[2019-09-30 06:41] LABS: Absolute Lymphocytes (CBC) 0.8 K/uL (0.7-4.9); Basophils % 0.6 % (0-1.3); Hematocrit 34.4 % (36.0-45.0); Lymphocytes % 28.9 % (15.3-44.8); MPV 10.3 fL (7.6-11.3); RBC Red Blood Cell Count 3.61 M/uL (3.86-4.86)
[2019-09-30 07:14] LABS: Albumin 3.1 g/dL (3.4-5.0); Magnesium 1.8 mg/dL (1.8-2.4); Phosphorus 3.3 mg/dL (2.5-4.9); Potassium 4.6 mmol/L (3.5-5.1); Protein, Total 6.7 g/dL (6.4-8.2)
[2019-09-30 08:31] LABS: Blood Morphology Comment NOT SEEN (NOT SEEN); Platelet Estimate ADEQ; Urine White Blood Cell Casts OK
--- NOTE | 2019-09-30 08:36 | RAD REPORT ---
EXAM DESCRIPTION: RAD - Abdomen 1 View (KUB) - 09/30/2019 5:57 am CLINICAL HISTORY: Small-bowel obstruction Pain COMPARISON: No comparisons FINDINGS: The bowel gas pattern is non-obstructive. No evidence of free air or pneumatosis. Moderate stool is seen in the colon. No suspicious calcifications. No significant bony findings. Cholecystectomy clips. IMPRESSION: No SBO pattern is seen on today's examination.
[2019-09-30] MEDS ORDERED: ENOXAPARIN 40 MG/0.4 ML SQ SCH (09:00)
--- NOTE | 2019-09-30 10:39 | RAD REPORT ---
EXAM DESCRIPTION: US - Liver Only - 09/30/2019 9:29 am CLINICAL HISTORY: Elevated LFT COMPARISON: Fluoro Guide Spinal Inj dated 08/31/2016; Stone Protocol dated 09/29/2019 FINDINGS: The liver demonstrates diffuse fatty infiltration.No focal liver lesion or intrahepatic bi liary dilatation.Common bile duct measures 3 mm, normal in size.No evidence of portal vein thrombosis . Cholecystectomy. IMPRESSION: Fatty liver. No pathologic biliary dilatation seen.
[2019-09-30 12:24] LABS: Urine Appearance CLEAR; Urine Bilirubin NEGATIVE (NEG); Urine Blood NEGATIVE (NEG); Urine Color YELLOW; Urine Glucose NEGATIVE (NEG); Urine Protein NEGATIVE (NEG); Urine Urobilinogen 0.2 mg/dL (0.2-1.0); Urine pH 7.5 (5.0-7.0)
[2019-09-30 12:25] LABS: Urine Microscopic Reflex NO UMIC
[2019-09-30] MEDS ORDERED: MORPHINE 2 MG/ML SYR IV ONE ×2 (13:20→18:59)
--- NOTE | 2019-09-30 14:53 | CON ---
Date of Consultation: 09/30/2019 Reason For Consultation: Abdominal pain. History Of Present Illness: Patient is a 59-year-old female with multiple medical problems, who pres ented with kind of crampy diffuse abdominal pain about a week ago, intermittent in nature. She has o ccasional nausea and vomiting. She had a bowel movement yesterday. She is passing gas today. Says her pain is somewhat better after being admitted and there is no sore throat, runny nose, cough, head aches, or dizziness. No chest pain and no fever or chills. Review of Systems: Otherwise unremarkable. Past Medical History: Significant for depression, bipolar, hypertension, stroke, asthma, type 2 diab etes. Past Surgical History: Hysterectomy, bilateral knee replacement cholecystectomy, , right wr ist surgery. Allergies: NONE. Social History: Patient denies smoking or drinking. Family History: Significant for skin cancer in the father. Mother with heart disease and diabetes. Physical Examination: Vitals: Stable. She is afebrile. General: She is awake, alert, and oriented x3. Head and Neck: Cranial nerves 2 through 12 are grossly within normal limits. No neck masses. No JV D. Throat clear. Neck is supple. Chest: Clear. Heart: S1 and S2. Abdomen: Soft. Minimal tenderness. No rebound, rigidity or guarding. Positive bowel sounds. Extremity: Neurovascularly intact. Neuro is nonfocal. Laboratory Data: White count on admission was 6.2, this morning is 2.9. Monocytes is slightly up. Chemistry reviewed from yesterday and today, essentially yesterday the LFTs were normal, but today th e AST is greater than 1400 and the ALT is greater than 1000. Alkaline phosphatase is greater than [address] of the abdomen and pelvis done last night shows fluid filled small bowel l oops up to 3.5 cm in diameter, suggestive more of enteritis, less of obstruction. Liver ultrasound did not show any acute findings. KUB done this morning does not show any obstructio n. She does have some fatty liver. No pathological biliary dilatation. Assessment: 59-year-old female with multiple medical problems with abdominal pain, most likely gastr oenteritis and elevated liver function tests, etiology unclear. Recommendations: Agree we GI consultation and hepatitis profile. We can look into the medication zain takes, whether they have an effect on the liver or not. There is nothing that is acutely surgical emergency as her belly is benign she is passing gas. We will start her on clear liquids. Advance to GI soft as tolerated. Plan of care discussed in detail with Dr. Sellers. /DAMIRL Voice ID: [id number] Report ID: [id number]
[2019-09-30 15:02] LABS: Protime INR 0.94
[2019-09-30 15:30] LABS: Albumin 3.2 g/dL (3.4-5.0); Bilirubin Direct 0.2 mg/dL (0-0.2); Bilirubin Total 0.6 mg/dL (0.2-1.0); Protein, Total 7.1 g/dL (6.4-8.2)
--- NOTE | 2019-09-30 16:10 | P.PN ---
Subjective Date of Service: 09/30/19 Chief Complaint: Abdominal pain Patient reports right upper quadrant pain. She denies nausea or vomiting or diarrhea. Her blood pressure has been stable since hospitalization. Her liver enzymes noted to be severely elevated today. Liver ultrasound report fatty liver. No CBD dilatation. Physical Examination - Vital Signs Temperature: 97.4 F Blood Pressure: 128/60 Pulse: 70 Respirations: 18 Pulse Ox (%): 97 - Physical Exam General: Alert, In no apparent distress, Oriented x3 HEENT: Mucous membr. moist/pink, Sclerae nonicteric Neck: Supple, JVD not distended Respiratory: Clear to auscultation bilaterally, Normal air movement Cardiovascular: No edema, Regular rate/rhythm, Normal S1 S2 Capillary refill: <2 Seconds Gastrointestinal: Normal bowel sounds, Non-distended, No rebound, No guarding, Tenderness (Right upper quadrant and lower abdomen) Musculoskeletal: No swelling, No erythema Integumentary: No rashes Neurological: Normal speech, Normal strength at 5/5 x4 extr - Studies Laboratory Data (last 24 hrs) 09/30/19 05:37: Sodium 137, Potassium 4.6, BUN 13, Creatinine 1.00, Glucose 89, Phosphorus 3.3, Magnesium 1.8, Total Bilirubin 1.0, AST 1409 H* D, ALT 1002 H* D , Alkaline Phosphatase 157 H D 09/30/19 05:37: WBC 2.9 L D, Hgb 11.3 L, Hct 34.4 L, Plt Count 174 Assessment And Plan - Current Problems (Diagnosis) (1) Gastroenteritis Current Visit: Yes Status: Acute (2) Partial small bowel obstruction Current Visit: Yes Status: Resolved (3) DM type 2 (diabetes mellitus, type 2) Current Visit: Yes Status: Chronic (4) Elevated liver enzymes Current Visit: Yes Status: Acute - Plan Continue supportive measures with IV hydration Pain management as needed. Antiemetics Clear liquid diet. GI consulted to evaluate. I spoke to Dr. Boykin. Acute hepatitis panel requested. Monitor liver enzymes General surgery input appreciated. Monitor and optimize electrolytes.
[2019-09-30] MEDS: OXYBUTYNIN CHLORIDE 5 MG TAB PO SCH (22:40)
[2019-09-30] MEDS: METFORMIN HCL 500 MG TAB PO SCH (22:40)
[2019-09-30] MEDS: DIVALPROEX ER 250 MG TAB PO SCH (23:16)
[2019-09-30] MEDS: DULOXETINE 30 MG CAP PO SCH (23:16)
[2019-09-30] MEDS: QUETIAPINE 100MG TAB PO SCH (23:16)
[2019-09-30] MEDS: ATORVASTATIN 10 MG TAB PO SCH (23:19)
[2019-09-30] MEDS: TIZANIDINE 4 MG TABLET PO SCH (23:57)
[2019-09-30] MEDS: TRAZODONE 50 MG TABLET PO SCH (23:59)
[2019-09-30] MEDS: TRAZODONE 150 MG TAB PO SCH (23:59)
[2019-10-01] MEDS: D5 0.9 NS 1,000 ML IV SCH ×3 (04:03→23:28)
[2019-10-01] MEDS: MORPHINE 2 MG/ML SYR IV PRN ×5 (04:07→23:29)
[2019-10-01] MEDS: LEVOTHYROXINE SOD 0.1 MG TAB PO SCH (05:59)
[2019-10-01 06:08] LABS: Absolute Lymphocytes (CBC) 1.3 K/uL (0.7-4.9); Basophils % 0.9 % (0-1.3); Hematocrit 36.3 % (36.0-45.0); MPV 9.8 fL (7.6-11.3); RBC Red Blood Cell Count 3.74 M/uL (3.86-4.86)
[2019-10-01 06:56] LABS: Bilirubin Direct 0.2 mg/dL (0-0.2); Bilirubin Total 0.4 mg/dL (0.2-1.0); Potassium 4.2 mmol/L (3.5-5.1); Protein, Total 6.7 g/dL (6.4-8.2)
[2019-10-01] MEDS: INSULIN -REGULAR HUMAN 50 UNIT/0.5 ML ML SQ SCH ×4 (07:30→21:00)
[2019-10-01] MEDS ORDERED: HOME MED 1 EA UNK (Fluticasone/Vilanterol [Breo Ellipta 200-25 Mcg Inh] 1 EACH) IH SCH (09:00)
[2019-10-01] MEDS: METFORMIN HCL 500 MG TAB PO SCH ×3 (09:53→17:12)
[2019-10-01] MEDS: OXYBUTYNIN CHLORIDE 5 MG TAB PO SCH ×2 (09:53→21:30)
[2019-10-01] MEDS: TIZANIDINE 4 MG TABLET PO SCH ×2 (09:53→21:24)
[2019-10-01] MEDS: DULOXETINE 30 MG CAP PO SCH ×2 (09:54→21:24)
--- NOTE | 2019-10-01 13:58 | P.PN ---
Subjective Date of Service: 10/01/19 Chief Complaint: Abdominal pain Patient reports intermittent lower abdominal pain. She denies nausea or vomiting or diarrhea. Her liver enzymes have started trending down. She denies any diarrhea. Physical Examination - Vital Signs Temperature: 96.9 F Blood Pressure: 92/54 Pulse: 94 Respirations: 18 Pulse Ox (%): 95 - Physical Exam General: Alert, In no apparent distress, Oriented x3 HEENT: Mucous membr. moist/pink, Sclerae nonicteric Neck: Supple, JVD not distended Respiratory: Clear to auscultation bilaterally, Normal air movement Cardiovascular: No edema, Regular rate/rhythm, Normal S1 S2, No murmurs Gastrointestinal: Normal bowel sounds, Non-distended, No rebound, No guarding, Tenderness (Lower abdomen) Musculoskeletal: No swelling, No erythema Integumentary: No rashes Neurological: Normal speech, Normal strength at 5/5 x4 extr Assessment And Plan - Current Problems (Diagnosis) (1) Gastroenteritis Current Visit: Yes Status: Acute (2) Partial small bowel obstruction Current Visit: Yes Status: Resolved (3) DM type 2 (diabetes mellitus, type 2) Current Visit: Yes Status: Chronic (4) Elevated liver enzymes Current Visit: Yes Status: Acute - Plan Continue supportive measures with IV hydration Pain management as needed. Antiemetics Clear liquid diet. Acute hepatitis panel is pending. Noted borderline low blood pressure. Elevated liver enzymes could be secondary to ischemic hepatitis. Monitor liver enzymes General surgery input appreciated. Monitor and optimize electrolytes. GI is following.
[2019-10-01] MEDS: MAGNES/ALUMIN/SIMET 30ML UCUP PO PRN (14:11)
[2019-10-01] MEDS: ONDANSETRON 4 MG/2 ML VIAL IV PRN (14:59)
--- NOTE | 2019-10-01 15:36 | EKG ---
Test Date: 2019-09-30 Test Time: 19:39:55 Phonograph Mechanic: LAURA MEASUREMENT RESULTS: Intervals: Rate: 79 NC: 174 QRSD: 96 QT: 382 QTc: 438 [place]: P: 58 NC: 174 QRS: -4 T: 42 INTERPRETIVE STATEMENTS: Normal sinus rhythm Normal ECG Compared to ECG 06/24/2019 08:17:49 No significant changes Electronically Signed On 10-01-19 15:35:02 MANAGER [employer] by Jayy Carbajal
[2019-10-01] MEDS: SUCRALFATE 1 GM TABLET PO SCH (18:24)
[2019-10-01] MEDS ORDERED: MELATONIN 5 MG TABLET PO ONE (21:10)
[2019-10-01] MEDS ORDERED: PANTOPRAZOLE 40MG TABLET PO ONE (21:10)
[2019-10-01] MEDS: DIVALPROEX ER 250 MG TAB PO SCH (21:23)
[2019-10-01] MEDS: TRAZODONE 50 MG TABLET PO SCH (21:24)
[2019-10-01] MEDS: ATORVASTATIN 10 MG TAB PO SCH (21:25)
[2019-10-01] MEDS: TRAZODONE 150 MG TAB PO SCH (21:25)
[2019-10-01] MEDS: QUETIAPINE 100MG TAB PO SCH (21:25)
[2019-10-02] MEDS: MORPHINE 2 MG/ML SYR IV PRN ×4 (03:45→23:03)
[2019-10-02 04:32] LABS: Basophils % 0.5 % (0-1.3); Hematocrit 30.6 % (36.0-45.0); Lymphocytes % 35.6 % (15.3-44.8); RBC Red Blood Cell Count 3.14 M/uL (3.86-4.86)
[2019-10-02 04:44] LABS: Albumin 2.5 g/dL (3.4-5.0); Bilirubin Total 0.4 mg/dL (0.2-1.0); Potassium 4.2 mmol/L (3.5-5.1); Protein, Total 5.8 g/dL (6.4-8.2)
[2019-10-02] MEDS: LEVOTHYROXINE SOD 0.1 MG TAB PO SCH (05:19)
[2019-10-02] MEDS: INSULIN -REGULAR HUMAN 50 UNIT/0.5 ML ML SQ SCH ×4 (07:30→21:00)
[2019-10-02] MEDS: METFORMIN HCL 500 MG TAB PO SCH ×3 (08:37→16:54)
[2019-10-02] MEDS: TRAMADOL HCL 50 MG TAB PO PRN (08:37)
[2019-10-02] MEDS: DULOXETINE 30 MG CAP PO SCH ×2 (08:37→21:29)
[2019-10-02] MEDS: TIZANIDINE 4 MG TABLET PO SCH ×2 (08:37→21:29)
[2019-10-02] MEDS: OXYBUTYNIN CHLORIDE 5 MG TAB PO SCH ×2 (08:37→21:30)
[2019-10-02] MEDS: SUCRALFATE 1 GM TABLET PO SCH ×4 (08:37→21:30)
[2019-10-02] MEDS: D5 0.9 NS 1,000 ML IV SCH ×2 (08:39→17:39)
[2019-10-02] MEDS ORDERED: MAGNESIUM SULFATE 1 gm IVPB 1 GM/100 ML BAG IV ONE (09:00)
--- NOTE | 2019-10-02 11:45 | P.PN ---
Subjective Date of Service: 10/02/19 Chief Complaint: Abdominal pain Subjective: No new changes, Improving Review of Systems 10-point ROS is otherwise unremarkable Physical Examination - Vital Signs Temperature: 97.2 F Blood Pressure: 119/58 Pulse: 68 Respirations: 18 Pulse Ox (%): 97 - Physical Exam General: Alert, In no apparent distress HEENT: Atraumatic, Normocephalic Neck: Supple Respiratory: Clear to auscultation bilaterally, Normal air movement Cardiovascular: Normal pulses, Regular rate/rhythm Capillary refill: <2 Seconds Gastrointestinal: Soft and benign, W/out hepatosplenomegaly Musculoskeletal: No clubbing, No swelling Integumentary: No rashes Neurological: Normal speech, Normal strength at 5/5 x4 extr Lymphatics: No axilla or inguinal lymphadenopathy External genitalia: Deferred Rectal: Deferred - Studies Laboratory Last Values WBC 5.5 K/uL (4.3-10.9) D 10/02/19 03:47 RBC 3.14 M/uL (3.86-4.86) L 10/02/19 03:47 Hgb 10.0 g/dL (12.0-15.0) L 10/02/19 03:47 Hct 30.6 % (36.0-45.0) L D 10/02/19 03:47 MCV 97.5 fL (80-100) 10/02/19 03:47 MCH 31.8 pg (27.0-35.0) 10/02/19 03:47 MCHC 32.6 g/dL (32.0-36.0) 10/02/19 03:47 RDW 13.7 % (12.1-15.2) 10/02/19 03:47 Plt Count 176 K/uL (152-406) 10/02/19 03:47 MPV 10.0 fL (7.6-11.3) 10/02/19 03:47 Neutrophils % 50.8 % (41.7-73.7) 10/02/19 03:47 Lymphocytes % 35.6 % (15.3-44.8) 10/02/19 03:47 Monocytes % 9.2 % (3.3-12.3) 10/02/19 03:47 Eosinophils % 3.9 % (0-4.4) 10/02/19 03:47 Basophils % 0.5 % (0-1.3) 10/02/19 03:47 Absolute Neutrophils 2.8 K/uL (1.8-8.0) 10/02/19 03:47 Absolute Lymphocytes 2.0 K/uL (0.7-4.9) 10/02/19 03:47 Absolute Monocytes 0.5 K/uL (0.1-1.3) 10/02/19 03:47 Absolute Eosinophils 0.2 K/uL (0-0.5) 10/02/19 03:47 Absolute Basophils 0.0 K/uL (0-0.5) 10/02/19 03:47 Morphology Comment Not seen (NOT SEEN) 09/30/19 05:37 PT 11.1 SECONDS (9.5-12.5) 09/30/19 14:45 INR 0.94 09/30/19 14:45 APTT 29.2 SECONDS (24.3-36.9) 09/30/19 14:45 Sodium 144 mmol/L (136-145) 10/02/19 03:47 Potassium 4.2 mmol/L (3.5-5.1) 10/02/19 03:47 Chloride 111 mmol/L (98-107) H 10/02/19 03:47 Carbon Dioxide 27 mmol/L (21-32) 10/02/19 03:47 BUN 4 mg/dL (7-18) L 10/02/19 03:47 Creatinine 0.84 mg/dL (0.55-1.3) 10/02/19 03:47 Estimated GFR 69 mL/min (=/>90) L 10/02/19 03:47 Glucose 115 mg/dL (74-106) H 10/02/19 03:47 POC Glucose 97 mg/dl (65-120) 10/02/19 07:50 Calcium 8.3 mg/dL (8.5-10.1) L 10/02/19 03:47 Phosphorus 3.3 mg/dL (2.5-4.9) 09/30/19 05:37 Magnesium 1.6 mg/dL (1.8-2.4) L 10/02/19 03:47 Total Bilirubin 0.4 mg/dL (0.2-1.0) 10/02/19 03:47 Direct Bilirubin 0.2 mg/dL (0-0.2) 10/01/19 05:46 AST 73 U/L (15-37) H D 10/02/19 03:47 ALT 325 U/L (12-78) H* D 10/02/19 03:47 Alkaline Phosphatase 116 U/L (45-117) 10/02/19 03:47 Lactate Dehydrogenase 332 U/L (84-246) H 09/30/19 14:45 Troponin I < 0.02 ng/mL (0.0-0.045) 09/30/19 19:33 Serum Total Protein 5.8 g/dL (6.4-8.2) L 10/02/19 03:47 Albumin 2.5 g/dL (3.4-5.0) L 10/02/19 03:47 Globulin 3.3 g/dL (2.3-3.5) 10/02/19 03:47 Albumin/Globulin Ratio 0.8 (1.1-1.8) L 10/02/19 03:47 Lipase 88 U/L (73-393) 09/29/19 15:10 Urine Color Yellow 09/30/19 12:08 Urine Appearance Clear 09/30/19 12:08 Urine pH 7.5 (5.0-7.0) H 09/30/19 12:08 Ur Specific [place] 1.010 (1.005-1.030) 09/30/19 12:08 Glucose (UA)(Auto) Negative (NEG) 09/30/19 12:08 Urine Ketones Negative (NEG) 09/30/19 12:08 Urine Blood Negative (NEG) 09/30/19 12:08 Urine Nitrite Negative (NEG) 09/30/19 12:08 Urine Bilirubin Negative (NEG) 09/30/19 12:08 Urine Urobilinogen 0.2 mg/dL (0.2-1.0) 09/30/19 12:08 Ur Leukocyte Esterase Negative (NEG) 09/30/19 12:08 Urine Total Protein Negative (NEG) 09/30/19 12:08 Hepatitis A IgM Ab Cancelled 09/30/19 Unknown Hep Bs Antigen Cancelled 09/30/19 Unknown Hep Bs Ag Confirmation Cancelled 09/30/19 Unknown Hep B Core IgM Ab Cancelled 09/30/19 Unknown Hepatitis C Antibody Cancelled 09/30/19 Unknown Hep C Ab Signal/Cutoff Cancelled 09/30/19 Unknown Hepatitis C Genotype Cancelled 09/30/19 Unknown Assessment & Plan - Problems (Diagnosis) (1) Elevated liver enzymes Current Visit: Yes Status: Acute (2) Gastroenteritis Current Visit: Yes Status: Acute (3) DM type 2 (diabetes mellitus, type 2) Current Visit: Yes Status: Chronic (4) Bipolar disorder Current Visit: No Status: Acute (5) Depression Onset Date: 07/24/17 Current Visit: No Status: Acute Qualifiers: Depression Type: major depressive disorder (6) Diabetes Onset Date: 07/24/17 Current Visit: No Status: Acute Qualifiers: Diabetes mellitus type: type 2 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 Antiemetics Acute hepatitis panel is pending. Noted borderline low blood pressure. Elevated liver enzymes could be secondary to ischemic hepatitis. Monitor liver enzymes General surgery input appreciated. Monitor and optimize electrolytes. GI is following. Awaiting further recommendations Qualifiers: Diabetes mellitus type: type 2 Diabetes mellitus complication detail: diabetic polyneuropathy Qualified Code(s): E11.42 - Type 2 diabetes mellitus with diabetic polyneuropathy Time Spent Managing Pts Care (In Minutes): 42
[2019-10-02] MEDS: MAGNES/ALUMIN/SIMET 30ML UCUP PO PRN ×2 (16:54→23:03)
[2019-10-02] MEDS: QUETIAPINE 100MG TAB PO SCH (21:28)
[2019-10-02] MEDS: DIVALPROEX ER 250 MG TAB PO SCH (21:30)
[2019-10-02] MEDS: TRAZODONE 150 MG TAB PO SCH (21:30)
[2019-10-02] MEDS: ATORVASTATIN 10 MG TAB PO SCH (21:30)
[2019-10-02] MEDS: TRAZODONE 50 MG TABLET PO SCH (21:30)
[2019-10-02] MEDS: ONDANSETRON 4 MG/2 ML VIAL IV PRN (23:09)
[2019-10-03 05:32] VITALS: O2SAT 95
[2019-10-03] MEDS: D5 0.9 NS 1,000 ML IV SCH ×2 (06:24→13:39)
[2019-10-03] MEDS: LEVOTHYROXINE SOD 0.1 MG TAB PO SCH (06:26)
[2019-10-03] MEDS: MORPHINE 2 MG/ML SYR IV PRN (06:26)
[2019-10-03] MEDS: ONDANSETRON 4 MG/2 ML VIAL IV PRN (06:38)
[2019-10-03 07:14] LABS: Albumin 2.8 g/dL (3.4-5.0); Bilirubin Total 0.3 mg/dL (0.2-1.0); Magnesium 1.9 mg/dL (1.8-2.4); Potassium 4.4 mmol/L (3.5-5.1); Protein, Total 6.2 g/dL (6.4-8.2)
[2019-10-03] MEDS: INSULIN -REGULAR HUMAN 50 UNIT/0.5 ML ML SQ SCH ×2 (07:30→11:30)
[2019-10-03] MEDS: METFORMIN HCL 500 MG TAB PO SCH (08:00)
[2019-10-03 08:17] VITALS: BP 115/53; TEMP 97.5
[2019-10-03] MEDS: SUCRALFATE 1 GM TABLET PO SCH ×2 (08:51→13:00)
[2019-10-03] MEDS: OXYBUTYNIN CHLORIDE 5 MG TAB PO SCH (08:52)
[2019-10-03] MEDS: DULOXETINE 30 MG CAP PO SCH (08:52)
[2019-10-03] MEDS: TIZANIDINE 4 MG TABLET PO SCH (08:52)
[2019-10-03] MEDS: TRAMADOL HCL 50 MG TAB PO PRN (11:01)
--- NOTE | 2019-10-03 11:21 | P.PN ---
Subjective Date of Service: 10/03/19 Chief Complaint: Abdominal pain Subjective: No new changes Review of Systems 10-point ROS is otherwise unremarkable Physical Examination - Vital Signs Temperature: 97.5 F Blood Pressure: 115/53 Pulse: 83 Respirations: 18 Pulse Ox (%): 96 - Physical Exam General: Alert, In no apparent distress HEENT: Atraumatic, Normocephalic Neck: Supple Respiratory: Clear to auscultation bilaterally Cardiovascular: Normal pulses, Regular rate/rhythm Capillary refill: <2 Seconds Gastrointestinal: Soft and benign, W/out hepatosplenomegaly Musculoskeletal: No clubbing, No swelling Integumentary: No rashes Neurological: Normal speech, Normal strength at 5/5 x4 extr Lymphatics: No axilla or inguinal lymphadenopathy External genitalia: Deferred Rectal: Deferred - Studies Laboratory Last Values WBC 5.5 K/uL (4.3-10.9) D 10/02/19 03:47 RBC 3.14 M/uL (3.86-4.86) L 10/02/19 03:47 Hgb 10.0 g/dL (12.0-15.0) L 10/02/19 03:47 Hct 30.6 % (36.0-45.0) L D 10/02/19 03:47 MCV 97.5 fL (80-100) 10/02/19 03:47 MCH 31.8 pg (27.0-35.0) 10/02/19 03:47 MCHC 32.6 g/dL (32.0-36.0) 10/02/19 03:47 RDW 13.7 % (12.1-15.2) 10/02/19 03:47 Plt Count 176 K/uL (152-406) 10/02/19 03:47 MPV 10.0 fL (7.6-11.3) 10/02/19 03:47 Neutrophils % 50.8 % (41.7-73.7) 10/02/19 03:47 Lymphocytes % 35.6 % (15.3-44.8) 10/02/19 03:47 Monocytes % 9.2 % (3.3-12.3) 10/02/19 03:47 Eosinophils % 3.9 % (0-4.4) 10/02/19 03:47 Basophils % 0.5 % (0-1.3) 10/02/19 03:47 Absolute Neutrophils 2.8 K/uL (1.8-8.0) 10/02/19 03:47 Absolute Lymphocytes 2.0 K/uL (0.7-4.9) 10/02/19 03:47 Absolute Monocytes 0.5 K/uL (0.1-1.3) 10/02/19 03:47 Absolute Eosinophils 0.2 K/uL (0-0.5) 10/02/19 03:47 Absolute Basophils 0.0 K/uL (0-0.5) 10/02/19 03:47 Morphology Comment Not seen (NOT SEEN) 09/30/19 05:37 PT 11.1 SECONDS (9.5-12.5) 09/30/19 14:45 INR 0.94 09/30/19 14:45 APTT 29.2 SECONDS (24.3-36.9) 09/30/19 14:45 Sodium 145 mmol/L (136-145) 10/03/19 06:18 Potassium 4.4 mmol/L (3.5-5.1) 10/03/19 06:18 Chloride 115 mmol/L (98-107) H 10/03/19 06:18 Carbon Dioxide 24 mmol/L (21-32) 10/03/19 06:18 BUN 1 mg/dL (7-18) L 10/03/19 06:18 Creatinine 0.78 mg/dL (0.55-1.3) 10/03/19 06:18 Estimated GFR 75 mL/min (=/>90) L 10/03/19 06:18 Glucose 93 mg/dL (74-106) 10/03/19 06:18 POC Glucose 97 mg/dl (65-120) 10/03/19 07:50 Calcium 8.3 mg/dL (8.5-10.1) L 10/03/19 06:18 Phosphorus 3.3 mg/dL (2.5-4.9) 09/30/19 05:37 Magnesium 1.9 mg/dL (1.8-2.4) 10/03/19 06:18 Total Bilirubin 0.3 mg/dL (0.2-1.0) 10/03/19 06:18 Direct Bilirubin 0.2 mg/dL (0-0.2) 10/01/19 05:46 AST 38 U/L (15-37) H 10/03/19 06:18 ALT 227 U/L (12-78) H 10/03/19 06:18 Alkaline Phosphatase 114 U/L (45-117) 10/03/19 06:18 Lactate Dehydrogenase 332 U/L (84-246) H 09/30/19 14:45 Troponin I < 0.02 ng/mL (0.0-0.045) 09/30/19 19:33 Serum Total Protein 6.2 g/dL (6.4-8.2) L 10/03/19 06:18 Albumin 2.8 g/dL (3.4-5.0) L 10/03/19 06:18 Globulin 3.4 g/dL (2.3-3.5) 10/03/19 06:18 Albumin/Globulin Ratio 0.8 (1.1-1.8) L 10/03/19 06:18 Lipase 88 U/L (73-393) 09/29/19 15:10 Urine Color Yellow 09/30/19 12:08 Urine Appearance Clear 09/30/19 12:08 Urine pH 7.5 (5.0-7.0) H 09/30/19 12:08 Ur Specific [place] 1.010 (1.005-1.030) 09/30/19 12:08 Glucose (UA)(Auto) Negative (NEG) 09/30/19 12:08 Urine Ketones Negative (NEG) 09/30/19 12:08 Urine Blood Negative (NEG) 09/30/19 12:08 Urine Nitrite Negative (NEG) 09/30/19 12:08 Urine Bilirubin Negative (NEG) 09/30/19 12:08 Urine Urobilinogen 0.2 mg/dL (0.2-1.0) 09/30/19 12:08 Ur Leukocyte Esterase Negative (NEG) 09/30/19 12:08 Urine Total Protein Negative (NEG) 09/30/19 12:08 Hepatitis A IgM Ab Cancelled 09/30/19 Unknown Hep Bs Antigen Cancelled 09/30/19 Unknown Hep Bs Ag Confirmation Cancelled 09/30/19 Unknown Hep B Core IgM Ab Cancelled 09/30/19 Unknown Hepatitis C Antibody Cancelled 09/30/19 Unknown Hep C Ab Signal/Cutoff Cancelled 09/30/19 Unknown Hepatitis C Genotype Cancelled 09/30/19 Unknown Assessment & Plan - Problems (Diagnosis) (1) Elevated liver enzymes Current Visit: Yes Status: Acute (2) Gastroenteritis Current Visit: Yes Status: Acute (3) DM type 2 (diabetes mellitus, type 2) Current Visit: Yes Status: Chronic (4) Bipolar disorder Current Visit: No Status: Acute (5) Depression Onset Date: 07/24/17 Current Visit: No Status: Acute Qualifiers: Depression Type: major depressive disorder (6) Diabetes Onset Date: 07/24/17 Current Visit: No Status: Acute Qualifiers: Diabetes mellitus type: type 2 Diabetes mellitus moth exterminator insulin use: without moth exterminator use Diabetes mellitus complication status: with neurologic complications Diabetes mellitus complication detail: with polyneuropathy Qualified Code(s): E11.42 - Type 2 diabetes mellitus with diabetic polyneuropathy (7) Diabetic neuropathy Onset Date: 07/24/17 Current Visit: No Status: Acute Plan: Continue supportive measures with IV hydration Pain management as needed. Antiemetics Acute hepatitis panel is pending. Noted borderline low blood pressure. Elevated liver enzymes could be secondary to ischemic hepatitis. Monitor liver enzymes General surgery input appreciated. Monitor and optimize electrolytes. Feeling better LFTs are trending down possible Dc in a.m. Qualifiers: Diabetes mellitus type: type 2 Diabetes mellitus complication detail: diabetic polyneuropathy Qualified Code(s): E11.42 - Type 2 diabetes mellitus with diabetic polyneuropathy Discharge Plan: Home Plan to discharge in: 24 Hours Time Spent Managing Pts Care (In Minutes): 42
--- NOTE | 2019-10-03 14:50 | P.DS ---
Admission Date: 09/30/19 Discharge Date: 10/03/19 Disposition: ROUTINE DISCHARGE Discharge Condition: GOOD Reason for Admission: Abdominal pain - Problems (1) Elevated liver enzymes Status: Acute (2) Gastroenteritis Status: Acute (3) DM type 2 (diabetes mellitus, type 2) Status: Chronic (4) Bipolar disorder Status: Acute (5) Depression Onset Date: 07/24/17 Status: Acute Qualifiers: Depression Type: major depressive disorder (6) Diabetes Onset Date: 07/24/17 Status: Acute Qualifiers: Diabetes mellitus type: type 2 Diabetes mellitus mcfp insulin use: without terminologist use Diabetes mellitus complication status: with neurologic complications Diabetes mellitus complication detail: with polyneuropathy Qualified Code(s): E11.42 - Type 2 diabetes mellitus with diabetic polyneuropathy (7) Diabetic neuropathy Onset Date: 07/24/17 Status: Acute Qualifiers: Diabetes mellitus type: type 2 Diabetes mellitus complication detail: diabetic polyneuropathy Qualified Code(s): E11.42 - Type 2 diabetes mellitus with diabetic polyneuropathy Brief History of Present Illness: 59-year-old woman with a history depression, bipolar disorder, CVA presented emergency department with a complaint of abdominal pain of onset 1 week ago, intermittent in nature. Patient stated abdominal pain became much severe this morning when she was taking a shower. CT abdomen and pelvis in the ED report small-bowel dilatation and fluid-filled small bowel suggesting enteritis versus obstruction. She stated her last bowel movement was this morning. She denied any vomiting. Patient is hospitalized for further management. Hospital Course: Acute hepatitis ischemic versus infectious Partial SBO The patient was admitted and was started on supportive measures with IV hydration and Pain management as needed. Antiemetics was also given. The patient had hypertensive episode which was treated with IV fluids. Her liver profile where grossly elevated, Acute hepatitis panel is still pending. Liver enzymes were trended and is trending down Elevated liver enzymes could be secondary to ischemic hepatitis Versus infection Monitor liver enzymes General surgery was consulted for possible SBO. recommended conservative management Monitored and optimized electrolytes. Her LFTs were near normal at the time of discharge. Patient wanted go home and is discharged home today in a stable condition with advice to follow up with PCP in 1 week and also with GI in 1-2 weeks . Vital Signs/Physical Exam: Temp Pulse Resp BP Pulse Ox 97.5 F 83 18 115/53 L 96 10/03/19 13:05 10/03/19 13:05 10/03/19 13:05 10/03/19 13:05 10/03/19 13:05 General: Alert, In no apparent distress HEENT: Atraumatic, Normocephalic Neck: Supple Respiratory: Clear to auscultation bilaterally, Normal air movement Cardiovascular: Normal pulses, Regular rate/rhythm Capillary refill: <2 Seconds Gastrointestinal: Soft and benign, W/out hepatosplenomegaly Musculoskeletal: No clubbing, No swelling Integumentary: No rashes Neurological: Normal gait, Normal strength at 5/5 x4 extr External genitalia: Deferred Rectal: Deferred Laboratory Data at Discharge: WBC 5.5 K/uL (4.3-10.9) D 10/02/19 03:47 Hgb 10.0 g/dL (12.0-15.0) L 10/02/19 03:47 Hct 30.6 % (36.0-45.0) L D 10/02/19 03:47 Plt Count 176 K/uL (152-406) 10/02/19 03:47 PT 11.1 SECONDS (9.5-12.5) 09/30/19 14:45 INR 0.94 09/30/19 14:45 APTT 29.2 SECONDS (24.3-36.9) 09/30/19 14:45 Sodium 145 mmol/L (136-145) 10/03/19 06:18 Potassium 4.4 mmol/L (3.5-5.1) 10/03/19 06:18 BUN 1 mg/dL (7-18) L 10/03/19 06:18 Creatinine 0.78 mg/dL (0.55-1.3) 10/03/19 06:18 Glucose 93 mg/dL (74-106) 10/03/19 06:18 Phosphorus 3.3 mg/dL (2.5-4.9) 09/30/19 05:37 Magnesium 1.9 mg/dL (1.8-2.4) 10/03/19 06:18 Total Bilirubin 0.3 mg/dL (0.2-1.0) 10/03/19 06:18 AST 38 U/L (15-37) H 10/03/19 06:18 ALT 227 U/L (12-78) H 10/03/19 06:18 Alkaline Phosphatase 114 U/L (45-117) 10/03/19 06:18 Troponin I < 0.02 ng/mL (0.0-0.045) 09/30/19 19:33 Lipase 88 U/L (73-393) 09/29/19 15:10 Home Medications: Duloxetine HCl [Cymbalta] 60 mg PO BID 07/24/17 Metformin HCl [Glucophage*] 500 mg PO TID 07/24/17 Quetiapine Fumarate [Quetiapine Fumarate ER] 300 mg PO BEDTIME 07/24/17 Fluticasone/Vilanterol [Breo Ellipta 200-25 Mcg INH] 1 each IH DAILY #30 blst.w.dev 07/25/17 Divalproex Sodium [Divalproex Sodium ER] 1,000 mg PO BEDTIME 06/24/19 Levothyroxine Sodium [Synthroid] 200 mcg PO DAILY 06/24/19 Oxybutynin Chloride 5 mg PO BID 06/24/19 Tizanidine HCl [Zanaflex] 2 mg PO BID 06/24/19 Tramadol HCl [Ultram] 50 mg PO TIDP PRN 06/24/19 Trazodone HCl 200 mg PO BEDTIME 06/24/19 Multivitamin [Daily Multiple Vitamin] 1 each PO DAILY #30 tablet 10/03/19 Pantoprazole [Protonix Tab] 40 mg PO DAILY #30 tab 10/03/19 Sucralfate [Carafate*] 1 gm PO QID #30 tab 10/03/19 New Medications: Multivitamin [Daily Multiple Vitamin] 1 each PO DAILY #30 tablet Pantoprazole [Protonix Tab] 40 mg PO DAILY #30 tab Sucralfate [Carafate*] 1 gm PO QID #30 tab Diet: ADA Activity: Ad [place] Followup: Husam Boykin MD [ACTIVE - CAN ADMIT] - (call to schedule appointment) Time spent managing pt's care (in minutes): 39
[2019-10-03 21:47] LABS: HBsAG Nonreactive (Nonreactive)
[2019-10-05 06:33] LABS: Hep C Virus RNA (PCR)log <1.18 log IU/mL
== END 2019-10-03 15:15 | disposition home or self-care (01) | DRG 388 ==
LOC: ER 13:52 → ERHOLD 18:35 → 4TH 21:24 → OBSVTOIN 09-30 11:20
PROVIDERS: ADMIT Internal Medicine; ATTEND Family Medicine
DX: K56.609 Unspecified intestinal obstruction, unspecified as to partial versus complete obstruction (principal); K72.00 Acute and subacute hepatic failure without coma; K52.9 Noninfective gastroenteritis and colitis, unspecified; F31.9 Bipolar disorder, unspecified; I10 Essential (primary) hypertension; E11.42 Type 2 diabetes mellitus with diabetic polyneuropathy; R74.8 Abnormal levels of other serum enzymes; Z86.73 Personal history of transient ischemic attack (TIA), and cerebral infarction without residual deficits
CPT/HCPCS: 36415; 74018; 74176; 76377; 76705; 80048; 80053; 80074; 80076; 81003; 82248; 82947; 83615; 83690; 83735; 84100; 84484; 85025; 85610; 85730; 87522; 93005; 94760; 99285; G0378; J0744; J2270; J2405; J3475; J7030; J7042

== ENCOUNTER 2020-05-17 23:41 | Emergency (ER) | payer OTHER ==
--- OUTSIDE RECORDS SUMMARY | 2020-05-17 23:42 | XMS REPORT ---
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 Problem Type 2 diabetes mellitus with E11.21 Active diabetic nephropathy Problem Diabetes mellitus, type 2 E11.9 Ac tive Problem Chronic sinusitis J32.9 Active Problem Moderate asthma with acute J45.901 A ctive exacerbation, unspecified whether persistent Problem 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 Active Problem Abdominal pain, RLQ (right lower R10.31 Active quadrant) Problem Allergic rhinitis, seasonal J30.2 Active Problem Adult BMI 40.0-44.9 kg/sq m Z68.41 Active Problem Anemia D64.9 Active Problem Hypothyroidism E03.9 Active Problem Anxiety F41.9 Active Problem Other chronic pain G89.29 Active Problem Encounter for gynecological Z01.419 Active examination (general) (routine) without abnormal findings Problem Encounter for general adult medical Z00.00 Active examination without abnormal findings Problem Grief F43.21 Active Problem Screening for colon cancer Z12.11 A ctive Problem Abscess, scalp L02.811 Active Problem House infested Z59.8 Active Problem Unsteady gait R26.81 Active Problem Fatty liver disease, nonalcoholic K76.0 Active Problem GERD with esophagitis K21.0 Active Problem Cellulitis of left elbow L03.114 Act jose Problem Unspecified asthma, uncomplicated J45.909 Active Problem Carpal tunnel syndrome of right G56.01 Active wrist Problem Pressure injury of right buttock, L89.311 Active stage 1 Problem Acute peptic ulcer, site K27.2 Act jose unspecified, with both hemorrhage and perforation Problem Pain in left knee M25.562 Active Problem Pain in unspecified hip M25.559 Acti ve Problem Rash R21 Active Problem Shoulder pain, unspecified M25.519 A ctive chronicity, unspecified laterality Problem Chronic frontal sinusitis J32.1 Ac tive Problem Falling R29.6 Active Problem Pain in right knee M25.561 Active Problem Migraine, unspecified, not G43.901 A ctive intractable, with status migrainosus Problem Acute cystitis without hematuria N30.00 Active Problem Other specified diabetes mellitus E13.42 Active with diabetic polyneuropathy Problem OAB (overactive bladder) N32.81 Act jose Problem History of cerebrovascular accident I69.90 Active with current residual effects Problem Sheryl albicans infection B37.9 A ctive Problem [place] or callus L84 Active Problem Reactive depression F32.9 Active Problem Ingrown toenail L60.0 Active Problem Moderate persistent asthma, J45.40 Active unspecified whether complicated Problem Low back pain M54.5 Active Problem Encounter for immunization Z23 A ctive Problem Bladder spasm N32.89 Active Problem 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
--- OUTSIDE RECORDS SUMMARY | 2020-05-17 23:42 | XMS REPORT | Continuity of Care Document ---
:1960 Author Organization [facility] t Address [address] [place] [address] Care Team Providers Name Role Phone Unavailable Unavailable Unavailable Problems This patient has no known problems. Allergies, Adverse Reactions, Alerts Allergy Allergy Status Severity Reaction(s) Onset Inactive Treating Comm ents Source Name Type Date Date Clinician Monistat Adverse Active vaginal [facility] 1 Reaction swelling [facility] Latex Adverse Active rash [facility] Gloves Reaction [facility] Medications Ordered Filled Start Stop Current Ordering Indication Dosage Frequency Signature Comments Components Source Medication Medication Date Date Medication? Clinician (SIG) Name Name Levothyroxi Levothyroxi Yes Ruth [address] [facility] ne Sodium ne Sodium 4-07 [place] in the [facility] - 00:00: morning on Memoria 00 an empty l stomach Outpati ent Clinics Levothyroxi Levothyroxi Yes Ruth [address] [facility] ne Sodium ne Sodium [place] in the [facility] - morning on [facility] an empty l stomach Outpati to equal ent 225mcg Clinics daily Gabapentin Gabapentin Yes Ruth TK [address] [place] CAPSULES [facility] PO QID PRN [facility] Ondansetron Ondansetron Yes Ruth TK [address] [facility] HCl HCl [place] QD FOR 10 [facility] DAYS [facility]N [facility] Duloxetine Duloxetine Yes Ruth not [facility] HCl HCl [place] defined [facility] Breo Breo Yes Ruth [address] [facility] Ellipta Ellipta [place] [facility] Topiramate Topiramate Yes Ruth [address] [facility] [place] [facility] Albuterol Albuterol Yes Ruth 3 ml as [facility] Sulfate Sulfate [place] needed [facility] Trazodone Trazodone Yes Ruth TK [address] [facility] HCl HCl [place] TS PO HS [facility] PRF [facility] INSOMNIA l [facility]ics Tizanidine Tizanidine Yes Ruth [address] [facility] HCl HCl [place] as needed [facility] Norvasc Norvas Yes Ruth [address] [facility] [place] [facility] Estradiol Estradiol Yes Ruth as [facility] [place] directed [facility] Sucralfate Sucralfate Yes Ruth [address] [facility] [place] on an [facility] empty [facility] stomach l [facility] Nystatin Nystatin Yes Ruth [address] [facility] [place] applicatio [facility] Albuterol Albuterol Yes Ruth INL [address] [facility] Sulfate HFA Sulfate HFA [place] PO Q 6 H [facility] - PRN [facility]oria l [facility] Meloxicam Meloxicam Yes Ruth TK [address] [facility] [place] QD [facility] Loratadine Loratadine Yes Ruth TK [address] [facility] [place] QD FOR [facility] - ALLERGIES [facility]oria l [facility] Simvastatin Simvastatin Yes Ruth [address] [facility] [place] in the [facility] - evening [facility] l [facility] Pantoprazol Pantoprazol Yes Ruth [address] [facility] e Sodium e Sodium [place] [facility] Lorazepam Lorazepam Yes Ruth [address] [facility] [place] at bedtime [facility] - as needed [facility]oria l [facility]ics Metformin Metformin Yes Ruth TAKE [address] HCl HCl [place] TABLET BY [facility] - MOUTH Memoria TWICE l DAILY WITH [facility] MEALS ent Clinics Divalproex Divalproex Yes Ruth [address] [facility] Sodium ER Sodium ER [place] [facility] Quetiapine Quetiapine Yes Ruth [address] [facility] Fumarate Fumarate [place] at bedtime [facility] Tramadol Tramadol Yes Ruth [address] HCl HCl [place] as needed [facility] Botox Botox Yes Ruth as [facility] [place] directed [facility] Luther Sloan Yes Ruth [address] [facility] [place] [facility] Divalproex Divalproex Yes Ruth [address] [facility] Sodium ER Sodium ER [place] [facility] Simvastatin Simvastatin Yes Ruth TAKE [address] [facility] [place] TABLET BY [facility] MOUTH [facility] EVERY DAY l IN THE Outpati EVENING ent Clinics Losartan Losartan Yes Ruth [address] Potassium Potassium [place] [facility] Oxybutynin Oxybutynin Ruth [address] [facility] Chloride Chloride 10-31 [place] [facility] - 00:00 [facility] :00 l Outpati ent Clinics Immunizations Ordered Filled Immunization Date Status Comments [facility] Immunization Name Name Pneumovax Pneumovax 2019-06-[address] [facility] - 00:[facility]00 [facility] Flucelvax - single Flucelvax - single 2019-05-[address] [facility] - dose syringe dose syringe 00:00:00 [facility] Prevnar 13 Prevnar 13 2018-05-[address] [facility] - -Pneumonia Vaccine -Pneumonia Vaccine 00:00:00 [facility] Procedures This patient has no known procedures. Encounters Start End Encounter Admission Attending Care Care Encounter Source Date/Time Date/Time Type Type Clinicians Facility Department ID 2020-04-16 2020-04-16 Outpatient Marcell Leggett [id number] [facility] 15:00:00 15:00:00 [email or web address] [facility] Medicine l Medicine Outpati ent Clinics 2020-04-16 2020-04-16 Outpatient [facility] [id number] [facility] 2020-04-13 2020-04-13 Outpatient Marcell Leggett [id number] [facility] 08:51:00 08:51:00 t [email or web address] [facility] Family Medicine l Medicine Outpati ent Clinics 2020-02-27 2020-02-27 Outpatient Marcell Faitht [id number] [facility] 14:00:00 14:00:00 t [employer] [facility] Family Medicine l Medicine Outpati ent Clinics 2020-02-23 2020-02-23 Outpatient Marcell Leggett [id number] [facility] 13:12:00 13:12:00 t [facility] Medicine Outpati ent Clinics 2020-02-18 2020-02-18 [facility] [id number] 09:08:00 09:08:00 t [facility] Medicine Outpati ent Clinics 2020-02-16 2020-02-16 [facility] [id number] [address] 18:34:00 18:34:00 t [facility] Medicine Outpati ent Clinics 2020-02-11 2020-02-11 [facility] [id number] 13:20:00 13:20:00 t [facility] Medicine Outpati ent Clinics 2020-01-06 2020-01-06 [facility] [id number] 18:46:00 18:46:00 t [facility] Medicine Outpati ent Clinics 2019-12-22 2019-12-22 [facility] [id number] 14:00:00 14:00:00 [facility] Joint [facility] a Clinic of [facility] ent Clinics 2019-12-05 2019-12-05 [facility] [id number] 10:40:00 10:40:00 t [facility] Medicine Outpati ent Clinics 2019-11-28 2019-11-28 [facility] [id number] 11:00:00 11:00:00 t [facility] Medicine Outpati ent Clinics 2019-11-10 2019-11-10 [facility] [id number] 15:55:00 15:55:00 t [facility] Medicine Outpati ent Clinics 2019-11-05 2019-11-05 [facility] [id number] [address] 18:33:00 18:33:00 t [facility] Medicine Outpati ent Clinics 2019-10-28 2019-10-28 [facility] [id number] 11[facility]08:00 11:08:00 t [facility] Medicine Medicine Outpati ent Clinics 2019-10-27 2019-10-27 [facility] [id number] 14:31:00 14:31:00 t [facility] Medicine Outpati ent Clinics 2019-10-13 2019-10-13 [facility] [id number] [address] 09:00:00 09:00:00 t [facility] Medicine l Medicine Outpati ent Clinics 2019-09-29 2019-09-29 [facility] [id number] 11:30:00 11:30:00 t [facility] Medicine Outpati ent Clinics 2019-09-18 2019-09-18 [facility] [id number] [facility] [address] 14:40:00 14:40:00 t [facility] Medicine Outpati ent Clinics 2019-08-14 2019-08-14 [facility] [id number] 14:18:00 14:18:00 t [facility] Medicine Outpati ent Clinics 2019-08-13 2019-08-13 [facility] [id number] 11:00:00 11:00:00 t [facility] Medicine Medicine Outpati ent Clinics 2019-07-18 2019-07-18 [facility] [id number] 09:00:00 09:00:00 t [facility] Medicine Medicine Outpati ent Clinics 2019-06-23 2019-06-23 [facility] [id number] [address] 10:40:00 10:40:00 t [facility] Medicine Outpati ent Clinics 2019-06-09 2019-06-09 [facility] [id number] 12:17:00 12:17:00 t [facility] Medicine l Medicine Outpati ent Clinics 2019-06-09 2019-06-09 [facility] [id number] 08:20:00 08:20:00 t [facility] ent Clinics 2019-05-30 2019-05-30 [place] [place] [id number] 08:00:00 08:00:00 t [facility] ent Clinics 2019-04-03 2019-04-03 [place] [place] [id number] [address] 09:00:00 09:00:00 t [facility] Joint [facility] a [facility] ent [facility] 2019-03-24 2019-03-24 [facility] [id number] 10:15:00 10:15:00 t Specialty/U [facility] - Specialty rology Memori a /Urology Clinic l [facility] ent Clinics 2019-03-04 2019-03-04 [facility] [id number] 11:00:00 11:00:00 t Specialty/U [place] [facility] - Specialty rology Memori a /Urology Clinic l Clinic [facility] ent Clinics 2019-02-21 2019-02-21 [facility] [id number] [facility] 13:45:00 13:45:00 t Specialty/U [place] [facility] - Specialty rology Memori a /Urology Clinic l Clinic [facility] ent Clinics 2019-02-18 2019-02-18 [facility] [id number] 15:42:00 15:42:00 t [facility] ent Clinics 2019-02-11 2019-02-11 [facility] [id number] 13:20:00 13:20:00 t [facility] ent Clinics 2018-11-11 2018-11-11 [facility] [id number] 09[facility]20:00 09:20:00 t [facility] ent Clinics 2018-10-01 2018-10-01 [facility] [id number] [facility] 15:30:00 15:30:00 [facility] Medicine [facility] ent Clinics 2018-09-06 2018-09-06 [facility] [id number] [facility] 10:00:00 10:00:00 [facility] ent Clinics 2018-05-21 2018-05-21 Outpatient Marcell Faitht [id number] 08:37:00 08:37:00 [facility] ent Clinics 2018-05-09 2018-05-09 [facility] [id number] [facility] 08:30:00 08:30:00 [facility] ent Clinics Results This patient has no known results.
--- OUTSIDE RECORDS SUMMARY | 2020-05-17 23:43 | XMS REPORT ---
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 Problem Allergic rhinitis, seasonal J30.2 Active Problem Anemia D64.9 Active Problem Hypothyroidism E03.9 Active Problem Anxiety F41.9 Active Problem Other chronic pain G89.29 Active Problem Grief F43.21 Active Problem GERD with esophagitis K21.0 Active Problem Cellulitis of left elbow L03.114 Act jose Problem Pressure injury of right buttock, L89.311 Active stage 1 Problem Acute cystitis without hematuria N30.00 Active Problem OAB (overactive bladder) N32.81 Act jose Problem Sheryl albicans infection B37.9 A ctive Problem Reactive depression F32.9 Active Problem Moderate persistent asthma, J45.40 Active unspecified whether complicated Problem Encounter for immunization Z23 A ctive Problem Bladder spasm N32.89 Active Problem 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 Problem Moderate asthma with acute J45.901 A ctive exacerbation, unspecified whether persistent Problem Abdominal pain, RLQ (right lower R10.31 Active quadrant) Problem Adult BMI 40.0-44.9 kg/sq m Z68.41 Active Problem Encounter for gynecological Z01.419 Active examination (general) (routine) without abnormal findings Assessment Encounter for other preprocedural Z01.818 Active examination Problem Encounter for general adult medical Z00.00 Active examination without abnormal findings Problem Screening for colon cancer Z12.11 A ctive Problem Abscess, scalp L02.811 Active Problem House infested Z59.8 Active Problem Unsteady gait R26.81 Active Problem Fatty liver disease, nonalcoholic K76.0 Active Problem Carpal tunnel syndrome of right G56.01 Active wrist Problem Unspecified asthma, uncomplicated J45.909 Active Problem Pain in left knee M25.562 Active Problem Acute peptic ulcer, site K27.2 Act jose unspecified, with both hemorrhage and perforation Problem Rash R21 Active Problem Pain in unspecified hip M25.559 Acti ve Problem Chronic frontal sinusitis J32.1 Ac tive Problem Shoulder pain, unspecified M25.519 A ctive chronicity, unspecified laterality Problem Pain in right knee M25.561 Active Problem Falling R29.6 Active Problem Migraine, unspecified, not G43.901 A ctive intractable, with status migrainosus Problem Other specified diabetes mellitus E13.42 Active with diabetic polyneuropathy Problem History of cerebrovascular accident I69.90 Active with current residual effects Problem [place] or callus L84 Active Problem Ingrown toenail L60.0 Active Problem Low back pain M54.5 Active Medications Medication Code Code Instructions Start End Status Dosage System Date Date Gabapentin [facility] 20352197598 300 MG Oral Active TK 2 CAPSULES PO QID PRN Ondansetron HCl [facility] 65701106380 8 MG Oral Active TK 1 T PO QD FOR 10 DAYS PRN Duloxetine HCl ND 12378358734 20 MG Orally Active not defined Twice a day Breo Ellipta ND 20862960641 200-25 MCG/INH Active 1 puff Inhalation Once a day Topiramate ND 78996228802 100 MG Orally Active 1 t ablet Once a day Levothyroxine ND 22518142380 200 MCG Orally Active 1 tablet in Sodium Once a day the morning on an empty stomach to equal 225mcg daily Albuterol [facility] 89492143085 (2.5 MG/3ML) Active 3 ml as Sulfate 0.083% needed Inhalation Three times a day Trazodone HCl [facility] 00318366326 150 MG Oral Active TK 1 TO 2 TS PO HS PRF INSOMNIA Tizanidine HCl ND 55197133965 2 MG Orally Active 1 tablet as bid needed Norvasc ND 12235074572 5 MG Orally Active 1 tablet Once a day Estradiol ND 05036154181 0.1 MG/GM Active as direc anibal Vaginal Two times a Week Sucralfate ND 45136184808 1 GM Orally Active 1 tab let on Twice a day an empty stomach Nystop ND 26706389777 481509 UNIT/GM Active APPLY TO THE External AFFECTED AREA BID UTD Albuterol [facility] 87446286800 108 (90 Base) Active INL 2 PFS PO Sulfate HFA MCG/ACT Q 6 H PRN Inhalation Losartan ND 46986724490 50 MG Orally January Active 1 tabl et Potassium Once a day 2019 Meloxicam [facility] 69979663575 7.5 MG Oral Active TK 1 T PO QD Loratadine [facility] 29432903756 10 MG Oral Active TK 1 T PO QD FOR ALLERGIES Simvastatin ND 42644398934 20 Orally Once Active 1 tablet in a day the evening Dicyclomine HCl ND 36475062727 20 MG Orally February Active 1 tablet Three times a , , 2019 Levothyroxine ND 89942181352 25 MCG Orally November Active 1 tablet in Sodium Once a day , the morning 2019 on an empty stomach Pantoprazole ND 71934804648 40 MG Orally Active 1 tablet Sodium Once a day Oxybutynin ND 45941643666 5 MG Orally Oct Active 1 tab let Chloride Twice a day 2019 Nystatin [facility] 32264566203 723319 UNIT/GM Active 1 ap plication Externally Twice a day to effected area Lorazepam ND 90751043753 0.5 MG Orally Active 1 ta blet at Once a day bedtime as needed Metformin HCl [facility] 96815552123 500 MG Active TAKE 1 TABLET BY MOUTH TWICE DAILY WITH MEALS Divalproex [facility] [address]-96 500 MG Orally Active 1 tablet Sodium ER Twice a day Quetiapine ND 61570503926 300 MG Orally Active 1 t ablet at Fumarate Once a day bedtime Tramadol HCl NDC 0 Orally tid Active 1 table t as needed Botox [facility] 20151264989 200 UNIT Active as directed Injection Januvia [facility] 96067613922 100 MG Orally Active 1 tabl et Once a day Divalproex [facility] 19738830323 500 MG Orally Active 3 t abs Sodium ER at bedtime Results No Known Results Summary Purpose [employer] Submission
--- OUTSIDE RECORDS SUMMARY | 2020-05-17 23:43 | XMS REPORT ---
[...] Sheryl albicans infection B37.9 A ctive Problem [place] or callus L84 Active Problem Reactive depression [...]
--- OUTSIDE RECORDS SUMMARY | 2020-05-17 23:44 | XMS REPORT ---
:1960 Author Organization [facility] Address [address] [place] [address] Care Team Providers Name Role Phone Ruth Matias Unavailable [phone] PROBLEMS Type Condition ICD9-CM [id number] Onset Condition SNOMED Code Notes Code Code Dates Status Problem Allergic rhinitis, J30.2 Active 839485992 seasonal Problem Hypothyroidism E03.9 Active 83295451 Problem Anemia D64.9 Active 409370090 Problem Other chronic pain G89.29 Active 21724613 Problem Abdominal pain, R10.31 Active 464358033 RLQ (right lower quadrant) Problem Anxiety F41.9 Active 16489202 Problem Moderate asthma J45.901 Active 842088651 with acute exacerbation, unspecified whether persistent Problem Pressure injury of L89.311 Active 172823619 right buttock, stage 1 Problem Falling R29.6 Active 841120649 Problem Grief F43.21 Active 456922577 Problem Adult BMI Z68.41 Active 954222761 40.0-44.9 kg/sq m Problem Screening for Z12.11 Active 632212091 colon cancer Problem Chronic sinusitis J32.9 Active 94981651 Problem Encounter for Z00.00 Active 743990295 general adult medical examination without abnormal findings Problem Other autoimmune 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 823522915 hemolytic anemias Problem Photosensitivity L56.8 Active 48071821 dermatitis Problem Diabetes mellitus, E11.9 Active 02998546 type 2 Problem Acute cystitis N30.00 Active 23113841 without hematuria Problem Reactive F32.9 Active 07174974 depression Problem Bladder spasm N32.89 Active 174782195 Problem History of I69.90 Active 309759932 cerebrovascular accident with current residual effects Problem OAB (overactive N32.81 Active 926432851 bladder) Problem Low back pain M54.5 Active 432892390 Problem Moderate J45.40 Active 283426481 persistent asthma, unspecified whether complicated Problem Migraine, G43.901 Active 182227921 unspecified, not intractable, with status migrainosus Problem Primary M19.011 Active 465132114419855 osteoarthritis of right shoulder Problem [place] or callus L84 Active 304109225 Problem Encounter for Z01.419 Active 539716271 gynecological examination (general) (routine) without abnormal findings Problem Type 2 diabetes E11.21 Active 496895583 mellitus with diabetic nephropathy Problem Encounter for Z23 Active 082683177 immunization Problem Other specified E13.42 Active 30223242 diabetes mellitus with diabetic polyneuropathy Problem House infested Z59.8 Active 475388955 Problem Abscess, scalp L02.811 Active 66852350 Problem Rash R21 Active 988205737 Problem Unsteady gait R26.81 Active 615447601 Problem GERD with K21.0 Active 450805998 esophagitis Problem Pain in M25.559 Active 455305479 unspecified hip Problem Carpal tunnel G56.01 Active 955339760271589 syndrome of right wrist Problem Cellulitis of left L03.114 Active 3971900964686 9105 elbow Problem Shoulder pain, M25.519 Active 847299071 unspecified chronicity, unspecified laterality Problem Unspecified J45.909 Active 98496929 asthma, uncomplicated Problem Sheryl albicans B37.9 Active 02702412 infection Problem Acute peptic K27.2 Active 88424336 ulcer, site unspecified, with both hemorrhage and perforation Problem Pain in left knee M25.562 Active 00167924346782 2 Problem Pain in right knee M25.561 Active 10700133 Problem Ingrown toenail L60.0 Active 660324333 Problem Chronic frontal J32.1 Active 55563144 sinusitis Problem Fatty liver K76.0 Active 557779106 disease, nonalcoholic ALLERGIES No Information ENCOUNTERS from 1960 to 2020-04-27 Encounter Location Date Provider Diagnosis [facility] [address] [place] [address] Apr, 2020 [place] [address] IMMUNIZATIONS No Information SOCIAL HISTORY Sex Assigned At : Social History Observation Description Sex Assigned At Unknown REASON FOR REFERRAL No Information VITAL SIGNS No information MEDICATIONS No Information PROCEDURES No Information RESULTS No Results REASON FOR VISIT COVID negative results MEDICAL (GENERAL) HISTORY Type Description Date Medical History Falling Medical History Acute peptic ulcer, site unspecified, wi th both hemorrhage and perforation Medical History Diabetes mellitus, type 2 Medical History Other autoimmune hemolytic anemias Medical History Photosensitivity dermatitis Medical History Adult BMI 40.0-44.9 kg/sq m Medical History Low back pain Medical History Unspecified asthma, uncomplicated Medical History Shoulder pain, unspecified chronicity, u nspecified laterality Medical History Pain in unspecified hip Medical History History of cerebrovascular accident with current residual effects Medical History Allergic rhinitis, seasonal Medical History Other specified diabetes mellitus with d iabetic polyneuropathy Medical History Ingrown toenail Medical History Migraine, unspecified, not intractable, with status migrainosus Medical History Chronic sinusitis Medical History Hypothyroidism Medical History Anemia Medical History Type 2 diabetes mellitus with diabetic n ephropathy Medical History [place] or callus Medical History Abdominal pain, RLQ (right lower quadran t) Medical History ULCERS Medical History KIDNEY PROBLEMS Medical History HBP Surgical History Cholecystectomy Surgical History Hysterectomy Surgical History Tonsillectomy and adenoidectomy Surgical History Bilateral Knee Replacements Hospitalization History stroke Hospitalization History pneumonia Goals Section No Information Health Concerns No Information MEDICAL EQUIPMENT No Information MENTAL STATUS No Information FUNCTIONAL STATUS No Information ASSESSMENTS No Information PLAN OF TREATMENT No Information
--- OUTSIDE RECORDS SUMMARY | 2020-05-17 23:44 | XMS REPORT ---
[...] Sheryl albicans infection B37.9 A ctive Problem [place] or callus L84 Active Problem Reactive depression [...]
--- OUTSIDE RECORDS SUMMARY | 2020-05-17 23:44 | XMS REPORT ---
[...] I69.90 Active with current residual effects Problem [place] or callus L84 Active Problem Ingrown toenail L60.0 Active Problem Low back pain M54.5 Active Medications Medication Code Code Instructions Start End Status Dosage System Date Date Levothyroxine [facility] 38210555193 200 MCG Orally Active 1 tablet in Sodium Once a day the morning on an empty stomach to equal 225mcg daily Simvastatin [facility] 45687660341 20 MG Active TAKE 1 T ABLET BY MOUTH EVERY DAY IN THE EVENING Albuterol [facility] 96057735834 (2.5 MG/3ML) Active 3 ml as Sulfate 0.083% needed Inhalation Three times a day Divalproex ND 56204124190 500 MG Orally Active 3 t abs Sodium ER at bedtime Breo Ellipta [facility] 96088458547 200-25 MCG/INH Active 1 puff Inhalation Once a day Trazodone HCl [facility] 97037657371 150 MG Oral Active TK 1 TO 2 TS PO HS PRF INSOMNIA Gabapentin [facility] 93522218885 300 MG Oral Active TK 2 CAPSULES PO QID PRN Nystop ND 47157718209 961376 UNIT/GM Active APPLY TO THE External AFFECTED AREA BID UTD Sucralfate ND 58774040175 1 GM Orally Active 1 tab let on Twice a day an empty stomach Metformin HCl ND 56252780867 500 MG Active TAKE 1 TABLET BY MOUTH TWICE DAILY WITH MEALS Oxybutynin ND 74624610396 5 MG Orally Oct Active 1 tab let Chloride Twice a day 2019 Pantoprazole [facility] 17702907843 40 MG Orally Active 1 tablet Sodium Once a day Meloxicam [facility] 90294022772 7.5 MG Oral Active TK 1 T PO QD Loratadine [facility] 83823523278 10 MG Oral Active TK 1 T PO QD FOR ALLERGIES Botox ND 08436818838 200 UNIT Active as directed Injection Levothyroxine ND 01371375847 25 MCG Orally Nila Active 1 tablet in Sodium Once a day , the morning 2019 on an empty stomach Albuterol [facility] 17847557500 108 (90 Base) Active INL 2 PFS PO Sulfate HFA MCG/ACT Q 6 H PRN Inhalation Divalproex [facility] [address]-37 500 MG Orally Active 1 tablet Sodium ER Twice a day Lorazepam ND 98071763926 0.5 MG Orally Active 1 ta blet at Once a day bedtime as needed Ondansetron HCl [facility] 36459503557 8 MG Oral Active TK 1 T PO QD FOR 10 DAYS PRN Estradiol ND 24043616587 0.1 MG/GM Active as direc anibal Vaginal Two times a Week Tramadol HCl NDC 0 Orally tid Active 1 table t as needed Januvia [facility] 74934990377 100 MG Orally Active 1 tabl et Once a day Nystatin ND 96281854602 048955 UNIT/GM Active 1 ap plication Externally Twice a day to effected area Topiramate [facility] 28441448600 100 MG Orally Active 1 t ablet Once a day Quetiapine ND 49229067738 300 MG Orally Active 1 t ablet at Fumarate Once a day bedtime Norvasc [facility] 59532285826 5 MG Orally Active 1 tablet Once a day Duloxetine HCl [facility] 67765080053 20 MG Orally Active not defined Twice a day Losartan [facility] 56849730154 50 MG Orally Active 1 tabl et Potassium Once a day Simvastatin ND 29083763515 20 Orally Once Active 1 tablet in a day the evening Tizanidine HCl ND 54157117461 2 MG Orally Active 1 tablet as bid needed Results No Known Results Summary Purpose eClinicalWorks Submission
[2020-05-18] MEDS ORDERED: NA CHLORIDE 0.9% 1,000 ML ONE (00:27)
[2020-05-18] MEDS ORDERED: MORPHINE 4 MG/ML SYR ONE ×2 (00:27→01:55)
[2020-05-18] MEDS ORDERED: ONDANSETRON 4 MG/2 ML VIAL ONE (00:27)
[2020-05-18 01:33] LABS: Absolute Lymphocytes (CBC) 2.4 K/uL (0.7-4.9); Basophils % 0.5 % (0-1.3); Hematocrit 32.9 % (36.0-45.0); Lymphocytes % 39.4 % (15.3-44.8); MPV 9.6 fL (7.6-11.3); RBC Red Blood Cell Count 3.43 M/uL (3.86-4.86)
[2020-05-18 01:41] LABS: ALT/SGPT 18 U/L (12-78); AST/SGOT 11 U/L (15-37); Albumin 3.6 g/dL (3.4-5.0); Alkaline Phosphatase 72 U/L (45-117); BUN Blood Urea Nitrogen 14 mg/dL (7-18); Bicarbonate 26 mmol/L (21-32); Bilirubin Direct < 0.1 mg/dL (0-0.2); Bilirubin Total 0.2 mg/dL (0.2-1.0); Glucose Level 86 mg/dL (74-106); Lipase 99 U/L (73-393); Potassium 3.8 mmol/L (3.5-5.1); Protein, Total 7.2 g/dL (6.4-8.2); Sodium Level 137 mmol/L (136-145)
--- NOTE | 2020-05-18 04:46 | ER ---
Nurse's Notes [facility] Name: Radha Santos Age: 59 yrs Sex: Female : 1960 Arrival Date: 05/17/2020 Time: 23:45 Bed 14 Private MD: Diagnosis: Abdominal Pain;Diverticulosis;Enteritis Presentation: 05/17 23:45 Chief complaint: EMS states: Pt reports she started having left lower quadrant that ea started three days ago. Pt reports the pain felt more severe tonight. Coronavirus screen: At this time, the client does not indicate any symptoms associated with coronavirus-19. Ebola Screen: No symptoms or risks identified at this time. Initial Sepsis Screen: Does the patient meet any 2 criteria? No. Patient's initial sepsis screen is negative. Does the patient have a suspected source of infection? No. Patient's initial sepsis screen is negative. Risk Assessment: Do you want to hurt yourself or someone else? Patient reports no desire to harm self or others. Onset of symptoms was May 17, 2020. 23:45 Method Of Arrival: EMS: [facility] ea 23:45 Acuity: SAURAV 3 ea Triage Assessment: 23:48 General: Appears in no apparent distress. Behavior is appropriate for age. Pain: ea Complains of pain in left lower quadrant. Neuro: Level of Consciousness is awake, alert, obeys commands, Oriented to person, place, time, situation. GI: Reports lower abdominal pain. Historical: - Allergies: 23:51 No Known Drug Allergies; ea - Home Meds: 23:51 benztropine 0.5 mg Oral tab 1 tab 2 times per day [Active]; Breo Ellipta 200 mcg oral ea caps take 1 puff DAILY [Active]; divalproex 500 mg Oral TbEC 3 tabs nightly [Active]; divalproex 500 mg Oral Tb24 2 tabs once daily [Active]; duloxetine 60 mg Oral cpDR 1 cap twice a day [Active]; famotidine 40 mg Oral tab 1 tab 2 times per day [Active]; fexofenadine 180 mg Oral tab 1 tab once daily [Active]; gabapentin 300 mg Oral cap 1 cap four times a day [Active]; Januvia 100 mg Oral tab 1 tab once daily [Active]; Levothroid 175 mcg Oral tab 1 tab once daily [Active]; levothyroxine 200 mcg tab 1 tab once daily [Active]; meloxicam 7.5 mg Oral tab 1 tab once daily [Active]; metformin 500 mg Oral tr24 1 tab three times a day [Active]; omeprazole 40 mg Oral cpDR 1 cap once daily [Active]; oxybutynin chloride 5 mg Oral tab 1 tab 2 times per day [Active]; prednisone 20 mg Oral tab once daily [Active]; quetiapine 300 mg Oral tab 1 tab once daily [Active]; Seroquel 400 mg Oral tab 1 tab at 6 pm [Active]; simvastatin 20 mg Oral tab 1 tab once daily [Active]; Singulair 10 mg Oral tab 1 tab once daily [Active]; tizanidine 2 mg Oral cap 1 caps twice a day [Active]; tramadol 50 mg Oral tab 1 tab three times a day [Active]; trazodone 100 mg Oral tab 1-3 tabs at night [Active]; valsartan-hydrochlorothiazide 80-12.5 mg Oral tab 1 tab once daily [Active]; - PMHx: 23:51 Hypothyroidism; Hypertension; High Cholesterol; GERD; Diabetes - NIDDM; Depression; ea CVA; chronic back pain; Anxiety; - Immunization history:: Adult Immunizations up to date. - Social history:: Smoking status: Patient denies any tobacco usage or history of. Screenin:47 Abuse screen: Denies threats or abuse. Nutritional screening: No deficits noted. ea Tuberculosis screening: No symptoms or risk factors identified. Fall Risk None identified. Assessment: 05/18 00:00 Reassessment: No changes from previously documented assessment. Patient and/or family bb3 updated on plan of care and expected duration. Pain level reassessed. Patient is alert, oriented x 3, equal unlabored respirations, skin warm/dry/pink. General: Appears in no apparent distress. uncomfortable. Pain: Complains of pain in left lower quadrant Pain currently is 8 out of 10 on a pain scale. 00:49 Reassessment: Patient appears in no apparent distress at this time. No changes from bb3 previously documented assessment. Patient and/or family updated on plan of care and expected duration. Pain level reassessed. Patient is alert, oriented x 3, equal unlabored respirations, skin warm/dry/pink. General: Appears in no apparent distress. comfortable. Pain: Pain currently is 4 out of 10 on a pain scale. Quality of pain is described as. 01:55 Reassessment: Patient appears in no apparent distress at this time. Patient and/or bb3 family updated on plan of care and expected duration. Pain level reassessed. Patient is alert, oriented x 3, equal unlabored respirations, skin warm/dry/pink. General: Appears uncomfortable. Pain: Pain currently is 6 out of 10 on a pain scale. Quality of pain is described as aching, sharp. 02:35 Reassessment: Patient appears in no apparent distress at this time. Patient and/or bb3 family updated on plan of care and expected duration. Pain level reassessed. Patient is alert, oriented x 3, equal unlabored respirations, skin warm/dry/pink. General: Appears in no apparent distress. comfortable, Behavior is calm, cooperative, appropriate for age. Pain: Denies pain. 03:55 Reassessment: Patient appears in no apparent distress at this time. Patient and/or bb3 family updated on plan of care and expected duration. Pain level reassessed. Patient is alert, oriented x 3, equal unlabored respirations, skin warm/dry/pink. General: Appears in no apparent distress. comfortable. Pain: Denies pain. 04:47 Reassessment: No changes from previously documented assessment. Patient and/or family bb3 updated on plan of care and expected duration. Pain level reassessed. Patient is alert, oriented x 3, equal unlabored respirations, skin warm/dry/pink. General: Appears in no apparent distress. 05:09 GI: Bowel sounds present X 4 quads. Abd is soft Abdomen is tender to palpation. bb3 Vital Signs: 05/17 23:45 BP 173 / 84; Pulse 90; Resp 19; Temp 98; Pulse Ox 98% ; Weight 102.06 kg; Height 5 ft. ea 7 in. (170.18 cm); 05/18 00:45 BP 155 / 74; Pulse 80; Resp 17; Pulse Ox 97% ; Pain 4/10; bb3 00:50 BP 155 / 74; Pulse 80; Resp 17; Pulse Ox 97% ; Pain 4/10; bb3 01:50 BP 147 / 69; Pulse 85; Resp 18; Pulse Ox 97% ; Pain 6/10; bb3 02:30 BP 122 / 62; Pulse 84; Resp 17; Pulse Ox 96% ; Pain 0/10; bb3 03:30 BP 138 / 55; Pulse 81; Resp 18; Pulse Ox 100% on R/A; fc 04:47 BP 152 / 64; Pulse 80; Resp 18; Pulse Ox 98% ; bb3 05/17 23:45 Body Mass Index 35.24 (102.06 kg, 170.18 cm) ea ED Course: 05/17 23:45 Patient arrived in ED. ea 23:47 Triage completed. ea 23:47 Patient has correct armband on for positive identification. Bed in low position. Call ea light in reach. Side rails up X 1. Pulse ox on. NIBP on. 23:48 Arm band placed on right wrist. Patient placed in an exam room, on a stretcher, on ea pulse oximetry. 05/18 00:00 No apparent distress. Patient moved to CT via stretcher. bb3 00:13 Inserted saline lock: 20 gauge in left antecubital area, using aseptic technique. Blood dh4 collected. 00:18 Uli Concepcion MD is Attending Physician. 7 00:41 CT Abd/Pelvis - IV Contrast Only Sent. bb3 01:08 CT Abd/Pelvis - IV Contrast Only In Process Unspecified. EDMS 04:44 Paco Perez MD is Referral Physician. 7 05:08 No provider procedures requiring assistance completed. IV discontinued, intact, bb3 bleeding controlled, No redness/swelling at site. Pressure dressing applied. Administered Medications: 00:21 Drug: Zofran (Ondansetron) 4 mg Route: IVP; Site: left antecubital; ea 00:45 Follow up: Response: No adverse reaction; Marked relief of symptoms; Nausea is decreasedbb3 04:52 Follow up: Response: No adverse reaction; Marked relief of symptoms bb3 00:22 Drug: morphine 4 mg {Note: RASS 0.} Route: IVP; Site: left antecubital; ea 00:45 Follow up: BP 155 / 74; Pulse 80 bpm; Resp 17 bpm; Pulse Ox 97% ; Pain 4/10 Adult; bb3 Response: No adverse reaction; Pain is decreased 04:51 Follow up: Response: No adverse reaction; Marked relief of symptoms; Pain is decreased bb3 00:23 Drug: NS 0.9% 1000 ml Route: IV; Rate: 1000 ml; Site: left antecubital; ea 01:50 Drug: morphine 4 mg Route: IVP; Site: left antecubital; bb3 04:51 Follow up: Response: No adverse reaction; Marked relief of symptoms; Pain is decreased bb3 Outcome: 04:46 Discharge ordered by MD. leiva 05:04 Patient left the ED. bb3 05:08 Discharged to home ambulatory. bb3 05:08 Condition: improved 05:08 Discharge instructions given to patient, Instructed on discharge instructions, follow up and referral plans. medication usage, Demonstrated understanding of instructions, follow-up care, medications, Prescriptions given X 3. Signatures: Dispatcher [employer] EDMS Indigo Andrews, ESTER ALEGRE-Corrie Meek RN RN Smiley Jaimes RN RN ea Borel, Brandy bb3 Shoaib Plascencia 4 Uli Concepcion MD MD 7 Corrections: (The following items were deleted from the chart) 00:23 00:22 morphine 4 mg IVP in left antecubital jean pena
--- NOTE | 2020-05-18 04:46 | EDPHYS ---
Physician Documentation [facility] Name: Radha Santos Age: 59 yrs Sex: Female : 1960 Arrival Date: 05/17/2020 Time: 23:45 Bed 14 Private MD: ED Physician Uli Concepcion HPI: 05/17 23:55 This 59 yrs old Female presents to ER via EMS with complaints of Abdominal kb Pain. 23:55 The patient presents with abdominal pain in the left lower quadrant. Onset: The kb symptoms/episode began/occurred 3 day(s) ago. The symptoms do not radiate. Associated signs and symptoms: none. The symptoms are described as constant. Modifying factors: The symptoms are alleviated by nothing, the symptoms are aggravated by nothing. Severity of pain: At its worst the pain was moderate in the emergency department the pain is unchanged. The patient has not experienced similar symptoms in the past. The patient has not recently seen a physician. Pt reports LLQ pain that started 3 days ago. States it was an irritating feeling at first, but tonight the pain got worse. Historical: - Allergies: 23:51 No Known Drug Allergies; ea - Home Meds: 23:51 benztropine 0.5 mg Oral tab 1 tab 2 times per day [Active]; Breo Ellipta 200 mcg oral ea caps take 1 puff DAILY [Active]; divalproex 500 mg Oral TbEC 3 tabs nightly [Active]; divalproex 500 mg Oral Tb24 2 tabs once daily [Active]; duloxetine 60 mg Oral cpDR 1 cap twice a day [Active]; famotidine 40 mg Oral tab 1 tab 2 times per day [Active]; fexofenadine 180 mg Oral tab 1 tab once daily [Active]; gabapentin 300 mg Oral cap 1 cap four times a day [Active]; Januvia 100 mg Oral tab 1 tab once daily [Active]; Levothroid 175 mcg Oral tab 1 tab once daily [Active]; levothyroxine 200 mcg tab 1 tab once daily [Active]; meloxicam 7.5 mg Oral tab 1 tab once daily [Active]; metformin 500 mg Oral tr24 1 tab three times a day [Active]; omeprazole 40 mg Oral cpDR 1 cap once daily [Active]; oxybutynin chloride 5 mg Oral tab 1 tab 2 times per day [Active]; prednisone 20 mg Oral tab once daily [Active]; quetiapine 300 mg Oral tab 1 tab once daily [Active]; Seroquel 400 mg Oral tab 1 tab at 6 pm [Active]; simvastatin 20 mg Oral tab 1 tab once daily [Active]; Singulair 10 mg Oral tab 1 tab once daily [Active]; tizanidine 2 mg Oral cap 1 caps twice a day [Active]; tramadol 50 mg Oral tab 1 tab three times a day [Active]; trazodone 100 mg Oral tab 1-3 tabs at night [Active]; valsartan-hydrochlorothiazide 80-12.5 mg Oral tab 1 tab once daily [Active]; - PMHx: 23:51 Hypothyroidism; Hypertension; High Cholesterol; GERD; Diabetes - NIDDM; Depression; ea CVA; chronic back pain; Anxiety; - Immunization history:: Adult Immunizations up to date. - Social history:: Smoking status: Patient denies any tobacco usage or history of. ROS: 23:54 Constitutional: Negative for fever, chills, and weight loss, Cardiovascular: Negative kb for chest pain, palpitations, and edema, Respiratory: Negative for shortness of breath, cough, wheezing, and pleuritic chest pain, Back: Negative for injury and pain, MS/Extremity: Negative for injury and deformity, Skin: Negative for injury, rash, and discoloration, Neuro: Negative for headache, weakness, numbness, tingling, and seizure. 23:54 Abdomen/GI: Positive for abdominal pain, Negative for nausea, vomiting, and diarrhea. Exam: 23:54 Constitutional: This is a well developed, well nourished patient who is awake, alert, kb and in no acute distress. Head/Face: Normocephalic, atraumatic. Chest/axilla: Normal chest wall appearance and motion. Nontender with no deformity. No lesions are appreciated. Cardiovascular: Regular rate and rhythm with a normal S1 and S2. No gallops, murmurs, or rubs. Normal PMI, no JVD. No pulse deficits. Respiratory: Lungs have equal breath sounds bilaterally, clear to auscultation and percussion. No rales, rhonchi or wheezes noted. No increased work of breathing, no retractions or nasal flaring. Back: No spinal tenderness. No costovertebral tenderness. Full range of motion. Skin: Warm, dry with normal turgor. Normal color with no rashes, no lesions, and no evidence of cellulitis. MS/ Extremity: Pulses equal, no cyanosis. Neurovascular intact. Full, normal range of motion. Neuro: Awake and alert, GCS 15, oriented to person, place, time, and situation. Cranial nerves II-XII grossly intact. Motor strength 5/5 in all extremities. Sensory grossly intact. Cerebellar exam normal. Normal gait. 23:54 Abdomen/GI: Inspection: obese Bowel sounds: normal, in all quadrants, Palpation: soft, in all quadrants, nontender, in the right upper quadrant and right lower quadrant, mild abdominal tenderness, in the left upper quadrant, moderate abdominal tenderness, in the left lower quadrant. Vital Signs: 23:45 BP 173 / 84; Pulse 90; Resp 19; Temp 98; Pulse Ox 98% ; Weight 102.06 kg; Height 5 ft. ea 7 in. (170.18 cm); 05/18 00:45 BP 155 / 74; Pulse 80; Resp 17; Pulse Ox 97% ; Pain 4/10; bb3 00:50 BP 155 / 74; Pulse 80; Resp 17; Pulse Ox 97% ; Pain 4/10; bb3 01:50 BP 147 / 69; Pulse 85; Resp 18; Pulse Ox 97% ; Pain 6/10; bb3 02:30 BP 122 / 62; Pulse 84; Resp 17; Pulse Ox 96% ; Pain 0/10; bb3 03:30 BP 138 / 55; Pulse 81; Resp 18; Pulse Ox 100% on R/A; fc 04:47 BP 152 / 64; Pulse 80; Resp 18; Pulse Ox 98% ; bb3 05/17 23:45 Body Mass Index 35.24 (102.06 kg, 170.18 cm) ea MDM: 05/17 23:50 Patient medically screened. kb 23:54 Data reviewed: vital signs, nurses notes. Data interpreted: Pulse oximetry: on room air kb is 98 %. Interpretation: normal. 05/17 23:54 Order name: Hepatic Function; Complete Time: 02:45 kb 05/17 23:54 Order name: Lipase; Complete Time: 02:45 kb 05/17 23:54 Order name: Basic Metabolic Panel; Complete Time: 02:45 kb 05/17 23:54 Order name: CBC with Diff; Complete Time: 02:45 kb 05/18 00:34 Order name: CREATININE WHOLE BLOOD; Complete Time: 01:28 EDMS 05/18 04:33 Order name: Urine Dipstick--Ancillary (enter results) ds4 05/17 23:54 Order name: IV Saline Lock; Complete Time: 00:13 kb 05/17 23:54 Order name: Labs collected and sent; Complete Time: 00:13 kb 05/17 23:54 Order name: CT Abd/Pelvis - IV Contrast Only kb 05/18 03:07 Order name: Urine Dipstick-Ancillary (obtain specimen); Complete Time: 04:26 [facility] [place] Administered Medications: 05/18 00:21 Drug: Zofran (Ondansetron) 4 mg Route: IVP; Site: left antecubital; ea 00:45 Follow up: Response: No adverse reaction; Marked relief of symptoms; Nausea is decreasedbb3 04:52 Follow up: Response: No adverse reaction; Marked relief of symptoms bb3 00:22 Drug: morphine 4 mg {Note: RASS 0.} Route: IVP; Site: left antecubital; ea 00:45 Follow up: BP 155 / 74; Pulse 80 bpm; Resp 17 bpm; Pulse Ox 97% ; Pain 4/10 Adult; bb3 Response: No adverse reaction; Pain is decreased 04:51 Follow up: Response: No adverse reaction; Marked relief of symptoms; Pain is decreased bb3 00:23 Drug: NS 0.9% 1000 ml Route: IV; Rate: 1000 ml; Site: left antecubital; ea 01:50 Drug: morphine 4 mg Route: IVP; Site: left antecubital; bb3 04:51 Follow up: Response: No adverse reaction; Marked relief of symptoms; Pain is decreased bb3 Disposition: 05:38 Co-signature as Attending Physician, Uli Concepcion MD. [facility] [place] Disposition: 05/18/20 04:46 Discharged to Home. Impression: Abdominal Pain, Diverticulosis, Enteritis. - Condition is Stable. - Discharge Instructions: Diverticulosis, Viral Gastroenteritis, Adult, Dius-[id number]-Rlkh, Abdominal Pain, Adult, [id number]. - Prescriptions for Bentyl 20 mg Oral Tablet - take 1 tablet by ORAL route every 6 hours As needed; 20 tablet. Flagyl 500 mg Oral Tablet - take 1 tablet by ORAL route every 8 hours for 7 days; 21 tablet. Bactrim DS 800- 160 mg Oral Tablet - take 1 tablet by ORAL route every 12 hours for 7 days; 14 tablet. - Medication Reconciliation Form, Thank You Letter, Antibiotic Education, Prescription Opioid Use form. - Follow up: Private Physician; When: 1 - 2 days; Reason: Worsening of condition, Recheck today's complaints, Continuance of care, Re-evaluation by your physician. Follow up: Paco Perez MD; When: 1 - 2 days; Reason: Worsening of condition, Recheck today's complaints. - Problem is new. - Symptoms have improved. Signatures: Dispatcher [employer] EDMS Indigo Andrews, SIS-C REPRINT SORTER-CkCorrie Monreal, RN RN Smiley Jaimes RN RN Irma Roberson bb3 Uli Concepcion MD MD [email or web address] Corrections: (The following items were deleted from the chart) 05:04 04:46 05/18/2020 04:46 Discharged to Home. Impression: Abdominal Pain; Diverticulosis; bb3 Enteritis. Condition is Stable. Forms are Medication Reconciliation Form, Thank You Letter, Antibiotic Education, Prescription Opioid Use. Follow up: Private Physician; When: 1 - 2 days; Reason: Worsening of condition, Recheck today's complaints, Continuance of care, Re-evaluation by your physician. Follow up: Paco Perez; When: 1 - 2 days; Reason: Worsening of condition, Recheck today's complaints. Problem is new. Symptoms have improved. mh7
[2020-05-18 05:11] LABS: Urine Blood NEGATIVE (NEG); Urine Glucose NEGATIVE (NEG); Urine Protein NEGATIVE (NEG)
[2020-05-18 05:16] VITALS: TEMP 98
[2020-05-18 05:24] VITALS: BP 152/64; O2SAT 98
--- NOTE | 2020-05-18 15:35 | RAD REPORT ---
EXAM DESCRIPTION: CT ABDOMEN AND PELVIS WITH CONTRAST CLINICAL HISTORY: ABD PAIN COMPARISON: 09/29/2019 TECHNIQUE: CT of the abdomen and pelvis performed following IV administration of iodinated contras t. FINDINGS: Lung Bases: The visualized lung bases are clear. Bones: Degenerative endplate spondylosis and facet arthropathy. Abdomen: Liver: The liver has normal size and density. No intrahepatic biliary dilatation. Gallbladder: Prior cholecystectomy. Spleen, Pancreas, and Adrenal Glands: The spleen, pancreas, and adrenal glands are unremarkable. Kidneys: No hydronephrosis or obstructing calculus. Vasculature: Aortoiliac atherosclerosis. IVC is unremarkable. The portal vein is patent. The proxim al visceral and renal arteries are patent. Stomach: The stomach and duodenum have normal course. Other: No free intraperitoneal air. Mild mesenteric haziness and scattered mid abdominal lymph no sal. Pelvis: Bladder: Urinary bladder is unremarkable. Bowel: No dilated loops of large or small bowel. Scattered diverticula of the colon. Appendix: Not identified. Pelvis: Uterus is not enlarged. IMPRESSION: 1. Scattered mid abdominal lymph nodes with mesenteric haziness. These findings could be seen with nonspecific mesenteritis/enteritis. 2. Diverticulosis without evidence of acute diverticulitis. This exam was performed according to our departmental dose-optimization program, which includes autom ated exposure control, adjustment of the mA and/or kV according to patient size and/or use of iterati ve reconstruction technique. Electronically signed by: Shayne Jain 05/18/2020 1:18 AM CDT Due to temporary technical issues with the PACS/Fluency reporting system, reports are being signed by the in house radiologist without review as a courtesy to ensure prompt reporting. The interpreting r adiologist is fully responsible for the content of the report.
== END 2020-05-18 05:04 | disposition home or self-care (01) ==
LOC: ER 23:41
DX: K57.90 Diverticulosis of intestine, part unspecified, without perforation or abscess without bleeding (principal); K52.9 Noninfective gastroenteritis and colitis, unspecified; I10 Essential (primary) hypertension; E03.9 Hypothyroidism, unspecified; E11.9 Type 2 diabetes mellitus without complications; F41.8 Other specified anxiety disorders
CPT/HCPCS: 85025; 80048; 36415; 82565; 80076; 81003; 83690; 74177; Q9967; J7030; J2405; 96374; 96375; 99285

== ENCOUNTER 2020-08-23 10:48 | Emergency (ER) | payer OTHER ==
--- OUTSIDE RECORDS SUMMARY | 2020-08-23 11:11 | XMS REPORT | Summary of Care ---
:1960 Author Organization [facility] Address [address] [place] [address] Care Team Providers Name Role Phone Lauren Matias Primary Care Provider Encounter Details Date Type Department Care Team Description 05/26/2020 Orders Only [facility] Doctor Unassigned, No [address] [facility] [place] [address] [address] [place] [address] Allergies No Known Allergiesdocumented as of this encounter (statuses as of 05/26/2020) Medications Medication Sig Dispensed Refills Start Date End Date Status baclofen (LIORESAL) 20 Take 20 mg by 0 Active mg tablet mouth 2 (two) times daily. fluticasone-vilanterol Inhale 1 Puff 0 Active (BREO ELLIPTA) 100-25 daily. mcg/dose DsDv divalproex (DEPAKOTE) Take 500 mg by 0 Active 500 mg EC tablet mouth daily. DULoxetine (CYMBALTA) Take 60 mg by 0 Active 60 mg capsule mouth daily. famotidine (PEPCID) 40 Take 40 mg by 0 Active mg tablet mouth daily. fexofenadine (JEIMY Take 180 mg by 0 Active ALLERGY) 180 mg tablet mouth daily. gabapentin (NEURONTIN) Take 300 mg by 0 Active 300 mg mouth 4 (four) capsuleIndications: 300 times daily. mg Q AM, 300 mg Q NOON, Indications: 300 600 mg Q PM, 600 mg Q mg Q AM, 300 mg Q HS NOON, 600 mg Q PM, 600 mg Q HS sitaGLIPtin (JANUVIA) Take 100 mg by 0 Active 100 mg tablet mouth daily. levothyroxine Take 175 mcg by 0 Active (SYNTHROID) 175 mcg mouth every tablet morning. Melatonin 5 mg Cap Take 1 Cap by 0 Active mouth at bedtime. metFORMIN (GLUCOPHAGE) Take 500 mg by 0 Active 500 mg tablet mouth 2 (two) times daily with meals. MULTIVITAMIN ORAL Take 1 Tab by 0 Active mouth daily. QUEtiapine (SEROQUEL) Take 400 mg by 0 Active 400 mg tablet mouth 2 (two) times daily. simvastatin (ZOCOR) 20 Take 20 mg by 0 Active mg tablet mouth at bedtime. traZODONE (DESYREL) 100 Take 100 mg by 0 Active mg tablet mouth at bedtime. valsartan-hydrochloroth Take 1 Tab by 0 Active iazide (DIOVAN-HCT) mouth daily. 80-12.5 mg per tablet cyanocobalamin, vitamin Take 1 mL by 0 Active B-12, (VITAMIN B-12) mouth daily. 1,000 mcg/mL Drop cholecalciferol, Take 1,000 Units 0 Active vitamin D3, 1,000 unit by mouth daily. tablet omeprazole (PRILOSEC) Take 20 mg by 0 Active 20 mg capsule mouth daily. traMADOL (ULTRAM) 50 mg Take 1 tablet by 20 tablet 0 8 Active tablet mouth every 6 (six) hours as needed for Pain (scale 4-6). naproxen 250 mg tablet Take 1 tablet by 20 tablet 0 08/18/2017 Active mouth 2 (two) times daily with meals. ciprofloxacin-dexametha Place 4 Drops in 7.5 mL 0 8 Active sone (CIPRODEX) 0.3-0.1 right ear 2 (two) % otic drops times daily. acetaminophen-codeine Take 2 tablets by 24 tablet 0 10/21/2017 Active (TYLENOL-CODEINE #3) mouth every 6 300-30 mg tablet (six) hours as needed for Pain (scale 7-10). documented as of this encounter (statuses as of 05/26/2020) Active Problems No known active problemsdocumented as of this encounter (statuses as of 05/26/2020) Social History Tobacco Use Types Packs/Day Years Used Date Never Smoker Smokeless Tobacco: Never Used Alcohol Use Drinks/Week oz/Week Comments No 0 Standard drinks or equivalent 0.0 Sex Assigned at Date Recorded Not on file documented as of this encounter Last Filed Vital Signs Not on filedocumented in this encounter Plan of Treatment Health Maintenance Due Date Last Done Comments HEPATITIS C (HCV) SCREEN 1960 Depression Screening 1971 DTaP,Tdap,and Td Vaccines (1 - 1978 Tdap) PAP SMEAR 1980 Breast Cancer Screening (MAMMOGRAM) 1999 COLON CANCER SCREENING ANNUAL 2009 FIT/FOBT COLON CANCER SCREENING FIT DNA 2009 EVERY 3 YEARS COLON CANCER SCREENING 2009 SIGMOIDOSCOPY EVERY 5 YEARS COLONOSCOPY 2009 Colorectal Cancer Screening 2009 Zoster Recombinant Vaccine 2009 (SHINGRIX) (1 of 2) INFLUENZA VACCINE (#1) 2020 PNEUMOCOCCAL 0-64 YEARS COMBINED Aged Out No longer eligible based on SERIES patient's age to complete this topic documented as of this encounter Procedures Procedure Name Priority Date/Time Associated Diagnosis Comme nts DSU PRE-OP Routine 05/26/2020 12:01 AM CDT documented in this encounter Results Not on filedocumented in this encounter Insurance Payer Benefit Plan Subscriber ID Effective Dates Phone Address Type / Group HUMANA - HUMANA CHOICE [id number] 2013-[facility] Medicare Adv MANAGED t PPO MEDICARE documented as of this encounter
--- OUTSIDE RECORDS SUMMARY | 2020-08-23 11:11 | XMS REPORT | Summary of Care ---
:1960 Author Organization [facility] - Health Address [address] [place] [address] Care Team Providers Name Role Phone Lauren Matias Primary Care Provider Encounter Details Date Type Department Care Team Description 06/01/2020 Orders Only [facility] Doctor Unassigned, No 301 [facility] [place] [address] [address] [place] [address] Allergies No Known Allergiesdocumented as of this encounter (statuses as of 06/01/2020) Medications Medication Sig Dispensed Refills Start Date [...] as of this encounter (statuses as of 06/01/2020) Active Problems No known active problemsdocumented as of this encounter (statuses as of 06/01/2020) Social History Tobacco Use Types Packs/Day Years Used Date Never Smoker Smokeless Tobacco: Never Used Alcohol Use Drinks/Week oz/Week Comments No 0 Standard drinks or equivalent 0.0 Sex Assigned at Date Recorded Not on file COVID-19 Exposure Response Date Recorded In the last month, have you been in contact with No / Unsure 05/31/2020 2:34 PM CDT someone who was confirmed or suspected to have Coronavirus / COVID-19? documented as of this encounter Last Filed Vital Signs Not on filedocumented in this encounter Plan of Treatment Date Type Specialty Care Team Description 06/02/2020 Hospital Encounter Surgery Mehrdad Reyna MD [address] [place], [place] [address] [phone] 06/02/2020 Anesthesia Event Surgery Rome Rivas as, [employer]TER [address] [place], [place] [phone] 06/02/2020 Surgery Surgery Jennifer Reyna MD COLONOSCOPY [address] [place], [place] [address] [phone] Health Maintenance Due Date Last Done Comments [...] Name Priority Date/Time Associated Diagnosis Comme nts ASSIGNMENT OF BENEFITS Routine 06/01/2020 12:45 PM CDT documented in this encounter Results Not on filedocumented in this encounter Insurance Payer Benefit Plan Subscriber ID Effective Dates Phone Address Type / Group HUMANA - HUMANA CHOICE [id number] 2013-[employer] Medicare Adv MANAGED t PPO MEDICARE documented as of this encounter
--- OUTSIDE RECORDS SUMMARY | 2020-08-23 11:11 | XMS REPORT | Summary of Care ---
:1960 Author Organization [facility] Address [address] [place] [address] Care Team Providers Name Role Phone Lauren Matias Primary Care Provider Reason for Visit Reason Comments LAB WORK Auth/Cert Status Reason Specialty Diagnoses / Referred By Referred To Procedures Contact Contact Clinical Medical Procedures [facility] Lab Laboratory COVID-19 (ID NOW [address] [place] [address] RAPID TESTING) [facility] COVID-19 (ID NOW [place], [place] RAPID TESTING) [id number] [[id number]] Encounter Details Date Type Department Care Team Description 06/01/2020 Laboratory Only [facility] Jennifer Reyna MD [address] [place] [address] Preop testing Phlebotomy Only, [facility] Test (Primary Dx) Lab-[address] [address] Allergies No Known Allergiesdocumented as of this [...] Signs Not on filedocumented in this encounter Nursing Notes Noemi Mcnamara - 06/01/2020 11:45 AM CDTCovid swab collected. documented in this encounter Plan of Treatment Date Type Specialty Care Team Description 06/02/2020 Hospital Encounter Surgery Mehrdad Reyna MD [address] [place] [phone] 06/02/2020 Anesthesia Event Surgery Rome Rivas, [address] [phone] 06/02/2020 Surgery Surgery Jennifer Reyna MD COLONOSCOPY [address] [place] [phone] Name Type Priority Associated Diagnoses Date/Ti me COVID-19 (ID NOW RAPID LAB Routine Preop testing 05/07 12:59 PM CDT TESTING) Name Type Priority Associated Diagnoses Order S chedule COVID-19 (ID NOW RAPID LAB Routine Preop testing Expe cted: 06/01/2020, TESTING) Expires: 2020 Health Maintenance Due Date Last Done Comments [...] this topic documented as of this encounter Results Not on filedocumented in this encounter Visit Diagnoses Diagnosis Preop testing - Primary Preoperative examination, unspecified documented in this encounter Additional Health Concerns Infection Onset Date Last Indicated Resolved Time COVID-19 Rule Out 06/01/2020 06/01/2020 documented as of this encounter Insurance Payer Benefit Plan Subscriber ID Effective Dates Phone Address Type / Group HUMANA - HUMANA CHOICE [id number] 2013-[facility] Medicare Adv MANAGED t PPO MEDICARE documented as of this encounter
--- OUTSIDE RECORDS SUMMARY | 2020-08-23 11:11 | XMS REPORT | Continuity of Care Document ---
:1960 Author Organization [facility] t Address [address] [place] [address] Care Team Providers Name Role Phone Michelle HAGAN, G Attending Clinician Maribell LEMUS, C Attending Clinician Evelyn CR Attending Clinician Brayan LEMUS Attending Clinician Doctor Unassigned, Name Attending Clinician Unavailable Only, Test Attending Clinician Unavailable Maribell LEMUS, C Admitting Clinician Problems This patient has no known problems. Allergies, Adverse Reactions, Alerts Allergy Allergy Status Severity Reaction(s) Onset Inactive Treating Comm ents Source Name Type Date Date Clinician Monistat Adverse Active vaginal [facility] 1 Reaction swelling [facility] Latex Adverse Active rash [facility] Gloves Reaction kes - [facility] Medications Ordered Filled Start Stop Current Ordering Indication Dosage Frequency Signature Comments Components Source Medication Medication Date Date Medication? Clinician (SIG) Name Name Levothyroxi Levothyroxi 2019- Yes Ruth [address] [facility] ne Sodium ne Sodium 4-07 [place] in the [facility] - 00:00: morning on [facility] 00 an empty l stomach Outpati ent Clinics Levothyroxi Levothyroxi Yes Ruth [address] [facility] ne Sodium ne Sodium [place] in the [place] [facility] - morning on [facility] an empty l stomach Outpati to equal ent [facility] Clinics daily Gabapentin Gabapentin Yes Ruth TK [address] [place] CAPSULES [facility] - PO QID PRN [facility] Ondansetron Ondansetron Yes Ruth TK [address] [facility] HCl HCl [place] QD FOR 10 [facility] - DAYS PRN [facility] Duloxetine Duloxetine Yes Ruth not [facility] HCl HCl [place] defined [facility] Breo Breo Yes Ruth [address] [facility] Ellipta Ellipta [place] [facility] Topiramate Topiramate Yes Ruth [address] [facility] [place] [facility] Albuterol Albuterol Yes Ruth 3 ml as [facility] Sulfate Sulfate [place] needed [facility] Trazodone Trazodone Yes Ruth TK [address] [facility] HCl HCl [place] TS PO HS [facility] - PRF [facility] INSOMNIA l [facility] Tizanidine Tizanidine Yes Ruth [address] [facility] HCl HCl [place] as needed [facility] Yes Ruth [address] [facility] [place] [facility] Estradiol Estradiol Yes Ruth as [facility] [place] directed [facility] Sucralfate Sucralfate Yes Ruth [address] [facility] [place] on an [facility] - empty [facility] stomach l [facility] Nystatin Nystatin Yes Ruth [address] [facility] [facility] [place] applicatio [facility] n [facility] Albuterol Albuterol Yes Ruth INL [address] [facility] Sulfate HFA Sulfate HFA [place] PO Q 6 H [facility] PRN [facility] Meloxicam Meloxicam Yes Ruth TK [address] [facility] [place] QD [facility] Loratadine Loratadine Yes Ruth TK [address] [facility] [place] QD FOR [facility] - ALLERGIES [facility] Simvastatin Simvastatin Yes Ruth [address] [facility] [place] in the [facility] - evening [facility] Pantoprazol Pantoprazol Yes Ruth [address] [facility] [facility] e Sodium e Sodium [place] [facility] Lorazepam Lorazepam Yes Ruth [address] [facility] [place] at bedtime [facility] - as needed [facility] Metformin Metformin Yes Ruth TAKE [address] HCl HCl [place] TABLET BY [facility] - MOUTH Memoria TWICE l DAILY WITH Outpati MEALS ent Clinics Divalproex Divalproex Yes Ruth [address] [facility] [facility] Sodium ER Sodium ER [place] Luke s - Memoria l Outpati ent Clinics Quetiapine Quetiapine Yes Ruth [address] [facility] [facility] Fumarate Fumarate [place] at bedtime [facility]pat[facility] ent Clinics Tramadol Tramadol Yes Ruth [address] HCl HCl [place] as needed [facility] Botox Botox Yes Ruth as [facility] [place] directed [facility] Januvia Januvia Yes Ruth [address] [facility] [place] [facility] Divalproex Divalproex Yes Ruth [address] [facility] Sodium ER Sodium ER [place] Luke s - Memoria l Outpati ent Clinics Simvastatin Simvastatin Yes Ruth TAKE [address] [facility] [place] TABLET BY [facility] - MOUTH Memoria EVERY DAY l IN THE Outpati EVENING ent Clinics Losartan Losartan Yes Ruth [address] Potassium Potassium [place] [facility] - [facility] Oxybutynin Oxybutynin 2019- No Ruth [address] [facility] [facility] Chloride Chloride 10-31 [place] [facility] - 00:00 [facility]oria :00 l [facility] Immunizations Ordered Filled Immunization Date Status Comments [facility] e Immunization Name Name Pneumovax Pneumovax 2019-06-[address] [facility] - 00:[facility]00 [facility] Outpatient [facility] Flucelvax - single Flucelvax - single 2019-05-[address] [facility] - dose syringe dose syringe 00:00:00 [facility] Prevnar 13 Prevnar 13 2018-05-[address] [facility] - -Pneumonia Vaccine -Pneumonia Vaccine 00:00:00 [facility] Outpatient Clinics Procedures This patient has no known procedures. Encounters Start End Encounter Admission Attending Care Care Encounter Source Date/Time Date/Time Type Type Clinicians Facility Department ID 2020-08-04 2020-08-04 Emergency [facility] [id number] 14:21:00 20:23:00 Jessica Thomason [id number] [place] [id number] [place] [id number] 2020-07-12 2020-07-12 [facility] [id number]00 [facility] Outpati ent Clinics 2020-06-11 2020-06-11 [facility] [id number] [facility] 00[facility]00 [facility] Outpati ent [facility] 2020-06-02 2020-06-02 [facility] [id number] 07:33:00 11:05:00 Mehrdad Guaman [id number] [place] [id number] Surgical [id number] [place] 07 2020-06-02 2020-06-02 Anesthesia Speedy Rivas [facility] [id number] 09:04:00 09:36:00 Kamryn Schmidt [id number] [place] [id number] Surgical [id number] [place] 020 2020-06-02 2020-06-02 Orders Doctor ABISAI [id number] 00:00:00 00:00:00 Only Unassigned, [id number] [facility] [id number] 2020-06-01 2020-06-01 Laboratory Only, [facility] [id number] 12:55:24 13:10:24 Only Test Katelin [id number] [place] [id number] [place] [id number] 2020-06-01 2020-06-01 Orders Doctor ABISAI [id number] 00:00:00 00:00:00 Only Unassigned, BAR [id number] [place] [id number] 2020-05-26 2020-05-26 [facility] [id number] 00[facility]00 [facility] Outpati ent Clinics 2020-05-26 2020-05-26 Orders Doctor BARONE [id number] 00:00:00 00:00:00 Only Unassigned, BAR [id number] [place] [facility] [id number] 2020-05-11 2020-05-[address] [facility] [id number] [facility] 00[facility]:00 [facility] Outpati ent Clinics 2020-04-16 2020-04-16 [facility] [id number] [address] 15:00:00 15:00:00 t [facility] Medicine Outpati ent Clinics 2020-04-16 2020-04-[address] [facility] [id number] [facility] 00:00:00 kes - [facility] Outpati ent Clinics 2020-04-13 2020-04-13 [facility] [id number] 08:51:00 08:51:00 t [facility] Medicine Outpati ent Clinics 2020-02-27 2020-02-27 [facility] [id number] 14:00:00 14:00:00 [place] [facility] Medicine Outpati ent Clinics 2020-02-23 2020-02-23 [facility] [id number] 13:12:00 13:12:00 t [facility] Medicine Outpati ent Clinics 2020-02-18 2020-02-18 [facility] [id number] 09:08:00 09:08:00 t [facility] Medicine Outpati ent Clinics 2020-02-16 2020-02-16 [facility] [id number] 18:34:00 18:34:00 t [facility] Medicine Outpati ent Clinics 2020-02-11 2020-02-11 [facility] [id number] 13:20:00 13:20:00 t [facility] Medicine Outpati ent Clinics 2020-01-06 2020-01-06 [facility] [id number] 18:46:00 18:46:00 t [facility] Medicine Outpati ent Clinics 2019-12-22 2019-12-22 [facility] [id number] 14:00:00 14:00:00 [facility] 2019-12-05 2019-12-05 [facility] [id number] 10:40:00 10:40:00 t [facility] Medicine Outpati ent Clinics 2019-11-28 2019-11-28 [facility] [id number] 11:00:00 11:00:00 [facility] Medicine Outpati ent Clinics 2019-11-10 2019-11-10 [facility] [id number] 15:55:00 15:55:00 t [facility] Medicine Outpati ent Clinics 2019-11-05 2019-11-05 [facility] [id number] 18:33:00 18:33:00 [facility] Medicine Outpati ent Clinics 2019-10-28 2019-10-28 [facility] [id number] 11:08:00 11:08:00 t [facility] Medicine Outpati ent Clinics 2019-10-27 2019-10-27 [facility] [id number] 14:31:00 14:31:00 t [facility] Medicine Outpati ent Clinics 2019-10-13 2019-10-13 [facility] [id number] 09:00:00 09:00:00 [facility] Medicine Outpati ent Clinics 2019-09-29 2019-09-29 [facility] [id number] 11:30:00 11:30:00 t [facility] Medicine Outpati ent Clinics 2019-09-18 2019-09-18 [facility] [id number] 14:40:00 14:40:00 t [facility] Medicine Outpati ent Clinics 2019-08-14 2019-08-14 [facility] [id number] 14:18:00 14:18:00 t [facility] Medicine Outpati ent Clinics 2019-08-13 2019-08-13 [facility] [id number] 11:00:00 11:00:00 t [facility] Medicine Outpati ent Clinics 2019-07-18 2019-07-18 [facility] [id number] 09:00:00 09:00:00 t [facility] Medicine Outpati ent Clinics 2019-06-23 2019-06-23 [facility] [id number] 10:40:00 10:40:00 t [facility] Medicine Outpati ent Clinics 2019-06-09 2019-06-09 [facility] [id number] 12:17:00 12:17:00 [facility] Medicine Outpati ent Clinics 2019-06-09 2019-06-09 [facility] [id number] 08:20:00 08:20:00 t [facility] Medicine Outpati ent Clinics 2019-05-30 2019-05-30 [facility] [id number] 08:00:00 08:00:00 t [facility] Medicine Outpati ent Clinics 2019-04-03 2019-04-03 [facility] [id number] 09:00:00 09:00:00 t [facility] ent Clinics 2019-03-24 2019-03-24 [facility] [id number] 10:15:00 10:15:00 t Specialty/U [facility] - Specialty rology Memori a /Urology Clinic l Clinic Outpati ent Clinics 2019-03-04 2019-03-04 [facility] [id number] 11:00:00 11:00:00 t Specialty/U [facility] k[facility] - Specialty rology Memori a /Urology Clinic l Clinic Outpati ent Clinics 2019-02-21 2019-02-21 [facility] [id number] 13:45:00 13:45:00 t Specialty/U [facility] kes - Specialty rology Memori a /Urology Clinic l Clinic Outpati ent Clinics 2019-02-18 2019-02-18 [facility] [id number] 15:42:00 15:42:00 t [facility] Medicine l Medicine Outpati ent Clinics 2019-02-11 2019-02-11 [facility] [id number] 13:20:00 13:20:00 t [facility] Medicine l Medicine Outpati ent Clinics 2018-11-11 2018-11-11 [facility] [id number] 09:20:00 09:20:00 t [facility] Medicine l Medicine Outpati ent Clinics 2018-10-01 2018-10-01 [facility] [id number] 15:30:00 15:30:00 t [facility] Medicine l Medicine Outpati ent Clinics 2018-09-06 2018-09-06 [facility] [id number] 10:00:00 10:00:00 t [facility] Medicine l Medicine Outpati ent Clinics 2018-05-21 2018-05-21 [facility] [id number] 08:37:00 08:37:00 t [facility] Medicine Outpati ent Clinics 2018-05-09 2018-05-09 [facility] [id number] [facility] 08:30:00 08:30:00 [facility] Medicine Medicine Outpati ent Clinics Results This patient has no known results.
--- OUTSIDE RECORDS SUMMARY | 2020-08-23 11:12 | XMS REPORT ---
:1960 Author Organization [facility] Address 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 519617421 hemolytic anemias Problem 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 Problem Hypothyroidism E03.9 Active 67493163 Problem Chronic sinusitis J32.9 Active 49753318 Problem Grief F43.21 Active 313871573 Problem GERD with K21.0 Active 134123248 esophagitis Problem Reactive F32.9 Active 42134931 depression Problem Fatty liver K76.0 Active 394028934 disease, nonalcoholic Problem Other chronic pain G89.29 Active 31476636 Problem Unsteady gait R26.81 Active 790411722 Problem Anxiety F41.9 Active 88482865 Problem Adult BMI Z68.41 Active 162845349 40.0-44.9 kg/sq m Problem OAB (overactive N32.81 Active 326668554 bladder) Problem Primary M19.011 Active 119661422035374 osteoarthritis of right shoulder Problem Moderate J45.40 Active 219383540 persistent asthma, unspecified whether complicated Problem Pain in right knee M25.561 Active 33705491 ALLERGIES Allergen (clinical Drug/Non Drug Reaction Allergy Type Onset Date S tatus drug ingredient) Allergy documented on EMR Monistat 1 vaginal swelling Drug Allergy Active Latex Gloves([facility] rash Drug Allergy Active Code:80680-10642) ENCOUNTERS from 1960 to 2020-06-01 Encounter Location Date Provider Diagnosis [facility] [address], [place] [address] IMMUNIZATIONS Vaccine Route Administration Date Status Flucelvax - single dose syringe IM Intramuscular May 11, 2020 Pending Flucelvax - single dose syringe IM Intramuscular May 30, 2019 Administered Flucelvax - single dose syringe Unknown May 09, 2018 Pending Pneumovax (PPSV23) IM Intramuscular Jun 09, 2019 Administered Prevnar 13 -Pneumonia Vaccine IM Intramuscular May 09, 2018 A dministered SOCIAL HISTORY Tobacco Use: Social History Observation Description Date Details (start date - stop date) Never Smoker Sex Assigned At : Social History Observation Description Sex Assigned At Unknown PHQ9 Question Answer Notes Little interest or pleasure in doing More than half the days things Feeling down, depressed, or hopeless More than half the days Trouble falling or staying asleep or Nearly every day sleeping too much Feeling tired or having little energy Several days Poor appetite or overeating Not at all Feeling bad about yourself, or that you Several days are a failure, or have let yourself or your family down Trouble concentrating on things, such as Not at all reading the newspaper or watching television Moving or speaking so slowly that other Nearly every day people could have noticed; or the opposite, being so fidgety or restless that you have been moving around a lot more than usual Total Score 13 Interpretation Moderate Depression Thoughts that you would be better off 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 No Points 0 Interpretation Negative Tobacco Use/Smoking Question Answer Notes Are you a never smoker Additional Findings: Tobacco Non-User Current non-smoker REASON FOR REFERRAL No Information VITAL SIGNS No information MEDICATIONS Medication SIG (Take, Route, Start Date End Date Status Frequency, Duration) Meloxicam 7.5 MG TK 1 T PO QD Oral for No t-Taking 28 Duloxetine HCl 20 MG Orally Twice a day Active Loratadine 10 MG TK 1 T PO QD FOR Not-Joseph ing ALLERGIES Oral for 30 Gabapentin 300 MG TK 2 CAPSULES PO QID Ac tive PRN Oral for 90 Lorazepam 0.5 MG 1 tablet at bedtime as A ctive needed Orally Once a day Quetiapine Fumarate 300 1 tablet at bedtime Active MG Orally Once a day Divalproex Sodium ER 500 1 tablet Orally Twice a Active MG day for 30 day(s) Norvasc 5 MG 1 tablet Orally Once a Activ e day for 90 days Botox 200 UNIT as directed Injection Not- Taking Metformin HCl 500 MG TAKE 1 TABLET BY MOUTH Active TWICE DAILY WITH MEALS for 90 Sucralfate 1 GM 1 tablet on an empty Not- Taking stomach Orally Twice a day for 30 day(s) Albuterol Sulfate (2.5 3 ml as needed Not -Taking MG/3ML) 0.083% Inhalation Three times a day for 90 days Divalproex Sodium ER 500 3 tabs Orally at Active MG bedtime Topiramate 100 MG 1 tablet Orally Once a Active day for 30 day(s) Estradiol 0.1 MG/GM as directed Vaginal Two Not-Taking times a Week for Omeprazole 40 MG 1 capsule 30 minutes Act jose before morning meal Orally Once a day for 30 day(s) Tizanidine HCl 2 MG 1 tablet as needed Ac tive Orally bid Albuterol Sulfate HFA 108 INL 2 PFS PO Q 6 H PRN Active (90 Base) MCG/ACT Inhalation for 25 Tramadol HCl 1 tablet as needed Active Orally tid Oxybutynin Chloride 5 MG 1 tablet Orally Twice a 31 Oc 2019 Active day for 90 days Trazodone HCl 150 MG TK 1 TO 2 TS PO HS PRF Active INSOMNIA Oral for 90 Levothyroxine Sodium 25 1 tablet in the morning Nov, Active MCG on an empty stomach Orally Once a day for 90 days Breo Ellipta 200-25 1 puff Inhalation Once Active MCG/INH a day for 90 Januvia 100 MG 1 tablet Orally Once a Act jose day for 90 days Nystop 829720 UNIT/GM APPLY TO THE AFFECTED Active AREA BID UTD External for 25 Levothyroxine Sodium 200 1 tablet in the morning Active MCG on an empty stomach to equal 225mcg daily Orally Once a day for 90 days Nystatin 257323 UNIT/GM 1 application Act jose Externally Twice a day to effected area for 30 Losartan Potassium 50 MG 1 tablet Orally Once a Active day for 90 Simvastatin 20 1 tablet in the evening Ac tive Orally Once a day for 90 days PROCEDURES No Information RESULTS No Results REASON FOR VISIT covid test MEDICAL (GENERAL) HISTORY Type Description Date Medical [...] mellitus with diabetic n ephropathy Medical History [place] or callus Medical History Abdominal pain, RLQ (right lower quadran t) Medical History ULCERS Medical History KIDNEY PROBLEMS Medical History HBP Medical History Photosensitivity dermatitis Medical History Pain in unspecified hip Medical History Shoulder pain, unspecified chronicity, u nspecified laterality Medical History Low back pain Medical History Allergic rhinitis, seasonal Medical History Ingrown toenail Medical History [place] or callus Medical History Abdominal pain, RLQ (right lower quadran t) Medical History Pressure injury of right buttock, stage 1 Medical History Cellulitis of left elbow Medical History Sheryl albicans infection Medical History Abscess, scalp Medical History House infested Medical History Rash Medical History Pain in left knee Medical History Carpal tunnel syndrome of right wrist Surgical History Cholecystectomy Surgical History Hysterectomy Surgical History Tonsillectomy and adenoidectomy Surgical History Bilateral Knee Replacements Hospitalization History stroke Hospitalization History pneumonia Goals Section No Information Health Concerns No Information MEDICAL EQUIPMENT No Information MENTAL STATUS No Information FUNCTIONAL STATUS No Information ASSESSMENTS No Information PLAN OF TREATMENT Medication Medication Name Sig Start Date Stop Date Norvasc 5 MG 1 tablet Orally Once a day for 90 days Januvia 100 MG 1 tablet Orally Once a day for 90 days Next Appt Details Provider Name:Walter Houston, 2020-06-11 02:00 :00 PM, [address] [facility] [address], [place], [address], Insurance Providers Payer Name Payer Address Payer Insured Patient Coverage Cover age End Phone Name Relationship to Start Date Anthony e Insured [employer] [address] [address] [phone] Radha Santos [place] [address] [address] [phone]
--- OUTSIDE RECORDS SUMMARY | 2020-08-23 11:12 | XMS REPORT | Summary of Care ---
:1960 Author Organization [facility] Address [address] [place] [id number] Care Team Providers Name Role Phone Lauren Matias Primary Care Provider Reason for Visit Auth/Cert Status Reason Specialty Diagnoses / Procedures Referred By Bharti rivas Referred To Contact Surgery Diagnoses Encounter for screening for malignant neoplasm of colon colon cancer screening Z12.11 (ICD-10-CM) - Encounter for screening for malignant neoplasm of colon Adc Pre/Pacu/Post Procedures [facility] CODING HELP [place] COLONOSCOPY W/BIOPSY SINGLE/MULTIPLE COLONOSCOPY 98934 - [place] COLONOSCOPY W/BIOPSY SINGLE/MULTIPLE [address] [place] [address] 2 [phone] Phone: Fax: Encounter Details Date Type Department Care Team Description 06/02/2020 Anesthesia [facility] Windy Martin MD [address] [place] [address] [facility] Speedy Rivas CRNA [address] [place] [phone] [place] [address] Dr garcia [place], [place] [id number] Allergies No Known Allergiesdocumented as of this encounter (statuses as of 06/02/2020) Medications Medication Sig Dispensed Refills Start Date End Date Status baclofen (LIORESAL) 20 Take 20 mg by 0 Suspended mg tablet mouth 2 (two) times daily. fluticasone-vilanterol Inhale 1 Puff 0 Suspended (BREO ELLIPTA) 100-25 daily. mcg/dose DsDv divalproex (DEPAKOTE) Take 500 mg by 0 Suspended 500 mg EC tablet mouth daily. DULoxetine (CYMBALTA) Take 60 mg by 0 Suspended 60 mg capsule mouth daily. famotidine (PEPCID) 40 Take 40 mg by 0 Suspended mg tablet mouth daily. fexofenadine (JEIMY Take 180 mg by 0 Suspended ALLERGY) 180 mg tablet mouth daily. gabapentin (NEURONTIN) Take 300 mg by 0 Suspended 300 mg mouth 4 (four) capsuleIndications: times daily. 300 mg Q AM, 300 mg Q Indications: NOON, 600 mg Q PM, 600 300 mg Q AM, mg Q HS 300 mg Q NOON, 600 mg Q PM, 600 mg Q HS sitaGLIPtin (JANUVIA) Take 100 mg by 0 Suspended 100 mg tablet mouth daily. levothyroxine Take 175 mcg by 0 Suspended (SYNTHROID) 175 mcg mouth every tablet morning. Melatonin 5 mg Cap Take 1 Cap by 0 Suspended mouth at bedtime. metFORMIN (GLUCOPHAGE) Take 500 mg by 0 Suspended 500 mg tablet mouth 2 (two) times daily with meals. MULTIVITAMIN ORAL Take 1 Tab by 0 Suspended mouth daily. QUEtiapine (SEROQUEL) Take 400 mg by 0 Suspended 400 mg tablet mouth 2 (two) times daily. simvastatin (ZOCOR) 20 Take 20 mg by 0 Suspended mg tablet mouth at bedtime. traZODONE (DESYREL) Take 100 mg by 0 Suspended 100 mg tablet mouth at bedtime. valsartan-hydrochlorot Take 1 Tab by 0 Suspended hiazide (DIOVAN-HCT) mouth daily. 80-12.5 mg per tablet cyanocobalamin, Take 1 mL by 0 S uspended vitamin B-12, (VITAMIN mouth daily. B-12) 1,000 mcg/mL Drop cholecalciferol, Take 1,000 0 Hope spended vitamin D3, 1,000 unit Units by mouth tablet daily. omeprazole (PRILOSEC) Take 20 mg by 0 Suspended 20 mg capsule mouth daily. traMADOL (ULTRAM) 50 Take 1 tablet 20 tablet 0 08/18/2017 Suspended mg tablet by mouth every 6 (six) hours as needed for Pain (scale 4-6). Additional Information naproxen 250 mg tablet Take 1 tablet by mouth 2 20 tablet 0 Suspended (two) times daily with meals. Additional Information ciprofloxacin-dexamethasone Place 4 Drops in 7.5 mL 0 10/21 Suspended (CIPRODEX) 0.3-0.1 % otic drops right ear 2 (two) times daily. Additional Information acetaminophen-codeine Take 2 tablets by 24 tablet 0 10/21/2017 Suspended (TYLENOL-CODEINE #3) 300-30 mg mouth every 6 tablet (six) hours as needed for Pain (scale 7-10). Additional Information documented as of this encounter (statuses as of 06/02/2020) Active Problems No known active problemsdocumented as of this encounter (statuses as of 06/02/2020) Social History Tobacco Use Types Packs/Day Years Used Date Never Smoker Smokeless Tobacco: Never Used Alcohol Use Drinks/Week oz/Week Comments No 0 Standard drinks or equivalent 0.0 Sex Assigned at Date Recorded Not on file COVID-19 Exposure Response Date Recorded In the last month, have you been in contact with No / Unsure 06/02/2020 7:42 AM CDT someone who was confirmed or suspected to have Coronavirus / COVID-19? documented as of this encounter Last Filed Vital Signs Vital Sign Reading Time Taken Comments Blood Pressure - - Pulse - - Temperature - - Respiratory Rate 13 06/02/2020 9:30 AM CDT Oxygen Saturation - - Inhaled Oxygen Concentration - - Weight - - Height - - Body Mass Index - - documented in this encounter OR Notes Anesthesia Postprocedure Evaluation - Kamryn Schmidt MD - 06/02/2020 9:45 AM CDT Patient: Radha Santos Procedure Summary Date: 06/02/20 Room / Location: [place] [address] / [facility] Location Anesthesia Start: 903 Anesthesia Stop: 930 Procedure: COLONOSCOPY (N/A Rectum) Diagnosis: (same, see providers post OP note) Surgeon: Mehrdad Reyna MD Responsible Provider: Kamryn Schmidt MD Anesthesia Type: TIVA ASA Status: 3 Anesthesia Type: TIVA Last vitals BP 115/60 (06/02/20936) Temp (P) 37.3 C (99.2 F) (06/02/20 0935) Pulse Resp 15 (06/02/20936) SpO2 No complications documented. Anesthesia Post Evaluation Patient location during evaluation: PACU Patient participation: complete - patient participated Level of consciousness: awake and alert Pain score: 0 Pain management: satisfactory to patient Airway patency: patent Cardiovascular status: acceptable and blood pressure returned to baseline Respiratory status: acceptable Hydration status: acceptable nesthesia Preprocedure Evaluation - Kamryn Schmidt MD - 05/26/2020 1:45 PM CDT Name/ MRN / Age / Gender: Radha Santos, [id number] 59 year old female BMI: Estimated body mass index is 33.05 kg/m as calculated from the following: Height as of 11/06/18: 1.702 m (5' 7"). Weight as of 11/06/18: 95.7 kg (211 lb). Allergies: Patient has no known allergies. Last Vitals: BP Readings from Last 1 Encounters: 11/06/18 124/83 Pulse Readings from Last 1 Encounters: 11/06/18 99 SpO2 Readings from Last 1 Encounters: 11/06/18 100% Date of Surgery: 06/02/2020 Surgeon: Mehrdad Reyna MD Procedure: COLONOSCOPY (N/A Rectum) OR Location: [facility] OR [facility] Anesthesia Preop Eval (physical exam) Anesthesia Preop: Chart Review and [id number] [facility] Communication: Pt called on 05/26/20 @ 13:47, the phone number listed for contact is incorrect. NPO Status Verified Clear Liquids: > 2 Hours Solid Food/Non-Clear Liquids: > 8 Hours PONV Risk Factors: female Anesthesia History Anesthesia History Negative Anesthesia History Negative per Chart Review Previous Anesthetics/Airways Cardiovascular METS: 4 (+) Hypertension (+) Dyslipidemia Pulmonary Comments: Daily inhaler use; last emergency inhaler use 1 week ago. 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 Hold on DOS. Anticoagulant Therapy: Defer to surgeons Phentermine: Alert [facility] anesthesiologist MAC Cases: Continue taking KIRA inhibitors and ARBs ASA Classification ASA: 3 ASA Comments: HTN HLD DM2 CVA Hypothyroidism Anemia GERD Hiatal hernia Current Medications: No outpatient medications have been marked as taking for the 06/02/20 encounter (Hospital Encounter). Previous Surgeries: Past Surgical History: Procedure Laterality Date SECTION CHOLECYSTECTOMY COLONOSCOPY EGD (ENDO) ESOPHAGOGASTRODUODENOSCOPY N/A 11/03/2015 Surgeon: Mehrdad Reyna MD; Location: [facility] Location [place] ANESTH,KNEE AREA SURGERY [place] DILATE ESOPHAGUS 11/03/2015 [place] ESOPHAGOGASTRODUODENOSCOPY TRANSORAL DIAGNOSTIC 11/03/2015 Anesthesia Physical Exam General no apparent distress and alert and oriented x 3 Neuro/Psych neurological Dental Abdominal (+) obesity Airway Mallampati score:II TM distance:> 5 cm Neck ROM: full Mouth opening:normal Extremity Pulmonary bilateral clear to auscultation Other Cardiovascular Rhythm:regular Rate: normal Anesthesia Plan ASA Status: 3 Plan discussed during pre-op evaluation: General, TIVA and MAC Anesthetic plan on DOS: TIVA Plan to include: IV induction Anesthesia plan discussed with: 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 The patient understands and agrees to proceed. documented in this encounter Miscellaneous Notes Addendum Note - Yusra Concepcion CRNA - 06/02/2020 9:52 AM CDT Addendum created 06/02/20 0952 by Yusra Concepcion CRNA Flowsheet accepted, Flowsheet data copied forward, Intraprocedure Event edited, Intraprocedure Flowsheets edited, Intraprocedure Meds edited, Intraprocedure Staff edited documented in this encounter Plan of Treatment Health Maintenance Due Date Last Done Comments HEPATITIS C (HCV) SCREEN 1960 DTaP,Tdap,and Td Vaccines (1 - 1978 Tdap) PAP SMEAR 1980 Breast Cancer Screening 1999 (MAMMOGRAM) COLON CANCER SCREENING ANNUAL 2009 FIT/FOBT COLON CANCER SCREENING FIT DNA 2009 EVERY 3 YEARS COLON CANCER SCREENING 2009 SIGMOIDOSCOPY EVERY 5 YEARS COLONOSCOPY 2009 Colorectal Cancer Screening 2009 Zoster Recombinant Vaccine 2009 (SHINGRIX) (1 of 2) INFLUENZA VACCINE (#1) 2020 Depression Screening 06/02/2021 06/02/2020 PNEUMOCOCCAL 0-64 YEARS COMBINED Aged Out No longer eligible based on SERIES patient's age to complete this topic documented as of this encounter Results Not on filedocumented in this encounter Administered Medications Medication Order MAR Action Action Date Dose Rate Site lactated ringers IV infusion New Bag 06/02/2020 7:47 AM CDT Intravenous, CONTINUOUS PRN, Starting Sun06/02/20 at 0747, Until Sun06/02/20 at 0931, Routine, Intra-op lidocaine 1% (XYLOCAINE) 100 mg/10 mL (1 %) Given 06/02/2020 9: 07 AM CDT 5 mL injection ONCE INTRA PROCEDURE, Starting Sun06/02/20 at 0907, Until Sun06/02/20 at 0931, Routine, Intra-op midazolam (VERSED) injection Given 06/02/2020 9:04 AM CDT 2 mg ONCE INTRA PROCEDURE, Starting Sun06/02/20 at 0904, Until Sun06/02/20 at 0931, Routine, Intra-op propofoL IV infusion Given 06/02/2020 9:14 AM CDT 20 mg Slow IV Push, ONCE INTRA PROCEDURE, Starting Sun06/02/20 at 0907, Until Sun06/02/20 at 0931, Routine, Intra-op Given 06/02/2020 9:11 AM CDT 50 mg Given 06/02/2020 9:10 AM CDT 30 mg propofoL IV infusion New Bag 06/02/2020 9:14 200 mcg/kg/min 122.52 mL/hr CONTINUOUS PRN, Starting Sun AM CDT 06/02/20 at 0914, Until Sun06/02/20 at 0931, Routine, Intra-op documented in this encounter Insurance Payer Benefit Plan Subscriber ID Effective Dates Phone Address Type / Group HU[employer] - HUMANA CHOICE [id number] 2013-[place] Medicare Adv MANAGED t O MEDICARE documented as of this encounter
--- OUTSIDE RECORDS SUMMARY | 2020-08-23 11:12 | XMS REPORT | Summary of Care ---
:1960 Author Organization [facility] - Health Address [address] [place] [address] Care Team Providers Name Role Phone Lauren Matias Primary Care Provider Encounter Details Date Type Department Care Team Description 06/02/2020 Orders Only [facility] Doctor Unassigned, No [address] [facility] [place] [address] [address] [place] [address] Allergies No Known Allergiesdocumented as of this encounter (statuses as of 06/03/2020) Medications Medication Sig Dispensed Refills Start Date [...] as of this encounter (statuses as of 06/03/2020) Active Problems No known active problemsdocumented as of this encounter (statuses as of 06/03/2020) Social History Tobacco Use Types Packs/Day Years [...] CANCER SCREENING 2009 SIGMOIDOSCOPY EVERY 5 YEARS Zoster Recombinant Vaccine 2009 (SHINGRIX) (1 of 2) INFLUENZA VACCINE (#1) 2020 Depression Screening 06/02/2021 06/02/2020 COLONOSCOPY 06/02/2030 06/02/2020 Colorectal Cancer Screening 06/02/2030 PNEUMOCOCCAL 0-64 YEARS COMBINED Aged Out No longer eligible based on SERIES patient's age to complete this topic documented as of this encounter Procedures Procedure Name Priority Date/Time Associated Diagnosis Comme DAY SURGERY - ADC Routine 06/02/2020 12:01 AM CDT documented in this encounter Results Not on filedocumented in this encounter Insurance Payer Benefit Plan Subscriber ID Effective Dates Phone Address Type / Group HUMA[employer] - HUMANA CHOICE [id number] 2013-Presen Medicare Adv MANAGED t PPO MEDICARE documented as of this encounter
--- OUTSIDE RECORDS SUMMARY | 2020-08-23 11:12 | XMS REPORT | Summary of Care ---
:1960 Author Organization [facility] - Health Address [address] [place] [address] Care Team Providers Name Role Phone Lauren Matias Primary Care Provider Reason for Visit Auth/Cert Status Reason Specialty Diagnoses / Procedures Referred By Bharti ontact Referred To Contact Surgery Diagnoses Encounter for screening for malignant neoplasm of colon colon cancer screening Z12.11 (ICD-10-CM) - Encounter for screening for malignant neoplasm of colon Adc Pre/Pacu/Post Procedures [facility] CODING HELP DC COLONOSCOPY W/BIOPSY SINGLE/MULTIPLE COLONOSCOPY [id number] - DC COLONOSCOPY W/BIOPSY SINGLE/MULTIPLE [address] [place], [place] [address] Phone: Fax: Encounter Details Date Type Department Care Team Description 06/02/[address] [facility] MD Bharti [address] [facility] [address] garcia [address] [facility] [place] [address] [id number] [place] [address] Allergies No Known Allergiesdocumented as of this [...] Date Never Smoker Smokeless Tobacco: Never Used Tobacco Cessation: Counseling Given: No Alcohol Use Drinks/Week oz/Week Comments No 0 [...] Sign Reading Time Taken Comments Blood Pressure 103/80 06/02/2020 9:47 AM CDT Pulse 111 06/02/2020 7:34 AM CDT Temperature 37.3 C (99.2 F) 06/02/2020 9:35 AM CDT Respiratory Rate 18 06/02/2020 9:47 AM CDT Oxygen Saturation 100% 06/02/2020 9:35 AM CDT Inhaled Oxygen Concentration - - Weight 102.1 kg (225 lb 1.4 oz) 05/31/2020 2:56 PM CDT Height 170.2 cm (5' 7.01") 05/31/2020 2:56 PM CDT Body Mass Index 35.25 05/31/2020 2:56 PM CDT documented in this encounter Discharge Instructions Mgay Yip RN - 06/02/2020COLONOSCOPY DO NOT DRIVE or operate machinery the rest of the day. Mild abdominal discomfort may result from the procedure, but this should disappear within several hours. Notify your physician/nurse if you have persistent pain for more than 6 hours, tenderness or abdominal distention. Belching or passing gas per rectum frequently occurs during the first few hours after the examination. Walking will often help relieve distension or gas pains. Notify you physician/nurse if your heart rate becomes unusually rapid, if you experience, shortness of breath, dizziness, fever greater than 101, or if you cough or vomit blood or experience chest painor have any concerns at all. You may have minor bleeding. If this continues for more than 24 hours or increases in intensity, notify your physician/nurse. Tenderness may occur in the vein where medication was given. Notify your physician/ nurse should fever, swelling redness of the arm/hand, or pain in the armpit occur. Many patients feel quite tired following these procedures and need to rest and recuperate for several hours. Continue to take all medications as prescribed until your follow up appointment. Ask nurse for assistance in ambulating. If you cannot reach your physician for problems go to the nearest emergency center. documented in this encounter Plan of Treatment Name Type Priority Associated Diagnoses Order [facility] SURGICAL PATHOLOGY EXAM LAB Routine Rele ase Upon Ordering for 1 Occurrences s tarting 06/02/2020 Health Maintenance Due Date Last Done Comments [...] encounter Procedures Procedure Name Priority Date/Time Associated Comments Diagnosis COLONOSCOPY (ENDO) Routine 06/02/2020 8:51 AM CDT POCT GLUCOSE(AGE Routine 06/02/2020 7:54 Results for this >30DAYS) AM CDT procedure are i n the results section. documented in this encounter Results POCT GLUCOSE(AGE >30DAYS) (06/02/2020 7:54 AM CDT) Pathologist Sig nature POCT Glu (age>30days) 121 (A) 70 - 110 mg/dL Specimen Blood - CAPILLARY documented in this encounter Visit Diagnoses Diagnosis Type 2 diabetes mellitus without complic ation, without long-term current use of insulin - Primary Polyp of ascending colon, unspecified ty pe documented in this encounter Administered Medications Medication Order MAR Action Action Date Dose Rate Site lactated ringers IV infusion New Bag 06/02/2020 8:00 AM CDT 1,000 mL 42 mL/hr 1,000 mL at 42 mL/hr, 1,000 mL, IV Infusion, ONCE, 1 dose, Sun06/02/20 at 0745, Routine, DSU Pre-op documented in this encounter Insurance Payer Benefit Plan Subscriber ID Effective Dates Phone Address Type / Group [employer] - HU[employer]NA CHOICE [id number] 2013-Presen Medicare Adv MANAGED t O MEDICARE documented as of this encounter
--- OUTSIDE RECORDS SUMMARY | 2020-08-23 11:13 | XMS REPORT ---
:1960 Author Organization [facility] Address 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 hemolytic 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 Problem Hypothyroidism E03.9 Active 40871741 Problem Chronic sinusitis J32.9 Active 50969341 Problem Grief F43.21 Active 808162069 Problem GERD with K21.0 Active 169249265 esophagitis Problem Reactive F32.9 Active 40092277 depression Problem Fatty liver K76.0 Active 953330065 disease, nonalcoholic Problem Other chronic pain G89.29 Active 59513078 Problem Unsteady gait R26.81 Active 327638806 Problem Anxiety F41.9 Active 56859247 Problem Adult BMI Z68.41 Active 178266438 40.0-44.9 kg/sq m Problem OAB (overactive N32.81 Active 081756500 bladder) Problem Primary M19.011 Active 513671345489188 osteoarthritis of right shoulder Problem Moderate J45.40 Active 338954495 persistent asthma, unspecified whether complicated Problem Pain in right knee M25.561 Active 36833562 ALLERGIES Allergen (clinical Drug/Non Drug Reaction Allergy Type Onset Date S tatus drug ingredient) Allergy documented on EMR Monistat 1 vaginal swelling Drug Allergy Active Latex Gloves([facility] rash Drug Allergy Active Code:41434-06231) ENCOUNTERS from 1960 to 2020-07-12 Encounter Location Date Provider Diagnosis [facility] [address] [facility] Jul, Ruth Matias Life Skills Coordinator adarsh sinusitis Family Medicine [address], [address] [place] [address] persistent ast hma, unspecified whe ther complicated J45 .40 IMMUNIZATIONS Vaccine Route Administration Date Status Flucelvax [...] would be better off Several days (Con 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 No Points 0 Interpretation Negative Tobacco Use/Smoking Question Answer Notes Are you a never smoker Additional Findings: Tobacco Non-User Current non-smoker REASON FOR REFERRAL No Information VITAL SIGNS Height 65.5 in Jul, Weight 230 lbs Jul, BMI 37.69 kg/m2 Jul, MEDICATIONS Medication SIG (Take, Route, Notes Start Date End Date Status Frequency, Duration) Quetiapine Fumarate 300 1 tablet at bedtime Active MG Orally Once a day Omeprazole 40 MG 1 capsule 30 Active minutes before morning meal Orally Once a day for 30 day(s) Botox 200 UNIT as directed Not-Takin g Injection Losartan Potassium 50 1 tablet Orally Active MG Once a day for 90 Albuterol Sulfate (2.5 3 ml as needed Not-Taking MG/3ML) 0.083% Inhalation Three times a day for 90 days Nystop 782438 UNIT/GM APPLY TO THE Not-Taking AFFECTED AREA BID UTD External for 25 Simvastatin 20 1 tablet in the Activ e evening Orally Once a day for 90 days Loratadine 10 MG TK 1 T PO QD FOR No t-Taking ALLERGIES Oral for 30 Tizanidine HCl 2 MG 1 tablet as needed Active Orally bid Divalproex Sodium ER 1 tablet Orally Active 500 MG Twice a day for 30 day(s) Topiramate 100 MG 1 tablet Orally Ac tive Once a day for 30 day(s) Metformin HCl 500 MG TAKE 1 TABLET BY Active MOUTH TWICE DAILY WITH MEALS for 90 Sucralfate 1 GM 1 tablet on an Not-T aking empty stomach Orally Twice a day for 30 day(s) Trazodone HCl 150 MG TK 1 TO 2 TS PO HS Active PRF INSOMNIA Oral for 90 Breo Ellipta 200-25 1 puff Inhalation Active MCG/INH Once a day for 90 Norvasc 5 MG 1 tablet Orally Active Once a day for 90 days Duloxetine HCl 20 MG Orally Twice a day Active Gabapentin 300 MG TK 2 CAPSULES PO A ctive QID PRN Oral for 90 Levothyroxine Sodium 1 tablet in the Active 200 MCG morning on an empty stomach to equal 225mcg daily Orally Once a day for 90 days Januvia 100 MG 1 tablet Orally Activ e Once a day for 90 days Lorazepam 0.5 MG 1 tablet at bedtime Active as needed Orally Once a day Albuterol Sulfate HFA INL 2 PFS PO Q 6 H Active 108 (90 Base) MCG/ACT PRN Inhalation for 25 Levothyroxine Sodium 25 1 tablet in the Nov, Active MCG morning on an empty stomach Orally Once a day for 90 days Amoxicillin-Pot 1 tablet Orally Jul, Jul, Active Clavulanate 875-125 MG every 12 hrs for 10 day(s) Tramadol HCl 1 tablet as needed Acti ve Orally tid Divalproex Sodium ER 3 tabs Orally at Active 500 MG bedtime PROCEDURES No Information RESULTS No Results REASON FOR VISIT sinus infection, ear ache, MP Telehealth PE Normal, Telephone Only Visit MEDICAL (GENERAL) HISTORY Type Description Date Medical [...] mellitus with diabetic n ephropathy Medical History [place] or callus Medical History Abdominal pain, RLQ (right lower quadran t) Medical History ULCERS Medical History KIDNEY PROBLEMS Medical History HBP Medical History Photosensitivity dermatitis Medical History Pain in unspecified hip Medical History Shoulder pain, unspecified chronicity, u nspecified laterality Medical History Low back pain Medical History Allergic rhinitis, seasonal Medical History Ingrown toenail Medical History [place] or callus Medical History Abdominal pain, RLQ [...] No Information FUNCTIONAL STATUS No Information ASSESSMENTS Encounter Date Diagnosis Assessment Notes Treatment Notes Treatm ent Clinical Notes Jul, Chronic sinusitis med as directe d (ICD-10 - J32.9) soinus rinses every day claritin or Coricidin HBP as directed Jul, Moderate Use inhaler as persistent asthma, directed unspecified stay indoors whether avoid cold air. complicated (ICD-10 - J45.40) Jul, Other Total time spen t by provider during this telephone visit was 8 minutes. Also, time was spent counseling and coordinating ca re including but n ot limited to discussion of t est results, diagno stic or treatment recommendations , prognosis, risk s and benefits of management opti ons, instructions, education, compliance and or risk reduction. PLAN OF TREATMENT Medication Medication Name Sig Start Date Stop Date Amoxicillin-Pot Clavulanate 1 tablet Orally every 12 Jul, 0 Jul, 875-125 MG hrs for 10 day(s) Treatment Notes Assessment Notes Clinical Notes Chronic sinusitis med as directedsoinus rinses every dayclaritin or Coricidin HBP as directed Moderate persistent asthma, Use inhaler as directedstay unspecified whether complicated indoorsavoid cold air. Next Appt Details prn Reason: Insurance Providers Payer Name Payer Address Payer Insured Patient Coverage Cover age End Phone Name Relationship to Start Date Anthony e Insured [employer] [address] [address] [phone] Radha Santos self [facility] [id number] [phone]
--- OUTSIDE RECORDS SUMMARY | 2020-08-23 11:13 | XMS REPORT ---
:1960 Author Organization [facility] Address [address] [facility], [facility] [address] [place] [address] Care Team Providers Name Role Phone Conrad Unavailable [phone] PROBLEMS Type Condition ICD9-CM [id number] Onset Condition SNOMED Code Notes Code Code Dates Status Problem History of I69.90 Active 841356269 cerebrovascular accident with current residual effects Problem Falling R29.6 Active 926384451 Problem Migraine, G43.901 Active 029181927 unspecified, not intractable, with status migrainosus Problem Acute peptic K27.2 Active 60526370 ulcer, site unspecified, with both hemorrhage and perforation Problem Other autoimmune 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 959541383 hemolytic anemias Problem 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 Problem Hypothyroidism E03.9 Active 85049595 Problem Chronic sinusitis J32.9 Active 51455986 Problem Grief F43.21 Active 945044928 Problem GERD with K21.0 Active 935330166 esophagitis Problem Reactive F32.9 Active 81940991 depression Problem Fatty liver K76.0 Active 283413297 disease, nonalcoholic Problem Other chronic pain G89.29 Active 37699841 Problem Unsteady gait R26.81 Active 302234052 Problem Anxiety F41.9 Active 36096483 Problem Adult BMI Z68.41 Active 395153455 40.0-44.9 kg/sq m Problem OAB (overactive N32.81 Active 194375747 bladder) Problem Primary M19.011 Active 453080788546659 osteoarthritis of right shoulder Problem Moderate J45.40 Active 805642705 persistent asthma, unspecified whether complicated Problem Pain in right knee M25.561 Active 55685313 ALLERGIES Allergen (clinical Drug/Non Drug Reaction Allergy Type Onset Date S tatus drug ingredient) Allergy documented on EMR Monistat 1 vaginal swelling Drug Allergy Active Latex Gloves([facility] rash Drug Allergy Active Code:90065-96841) ENCOUNTERS from 1960 to 2020-06-13 Encounter Location Date Provider Diagnosis [facility] [address] [facility] [address] Jun, Walter Conrad Type 2 diabetes Family Medicine [place], [place] mellitus with diabetic [address] nephropathy E11 .21 IMMUNIZATIONS Vaccine Route Administration Date Status Flucelvax [...] would be better off Several days (Con information resource consultant Suicide or of hurting yourself in some way Assessment Risk) Alcohol Screen Question Answer Notes Did you have a drink containing alcohol in the past year? No Points 0 Interpretation Negative Tobacco Use/Smoking Question Answer Notes Are you a never smoker Additional Findings: Tobacco Non-User Current non-smoker REASON FOR REFERRAL No Information VITAL SIGNS Height 65.5 in Jun, Weight 233.0 lbs Jun, Temperature 97.7 degrees Fahrenheit Jun, BMI 38.18 kg/m2 Jun, Oximetry 96 % Jun, Respiratory Rate 18 /min Jun, Blood pressure systolic 118 mm Hg Jun, Blood pressure diastolic 60 mm Hg Jun, MEDICATIONS Medication SIG (Take, Route, Start Date End Date Status Frequency, Duration) Nystop 427450 UNIT/GM APPLY TO THE AFFECTED Not-Taking AREA BID UTD External for 25 Tizanidine HCl 2 MG 1 tablet as needed Orally Active bid Levothyroxine Sodium 25 MCG 1 tablet in the morning Nov, Active on an empty stomach Orally Once a day for 90 days Lorazepam 0.5 MG 1 tablet at bedtime as A ctive needed Orally Once a day Tramadol HCl 1 tablet as needed Orally Ac tive tid Gabapentin 300 MG TK 2 CAPSULES PO QID PRN Active Oral for 90 Albuterol Sulfate HFA 108 INL 2 PFS PO Q 6 H PRN Active (90 Base) MCG/ACT Inhalation for 25 Sucralfate 1 GM 1 tablet on an empty Not- Taking stomach Orally Twice a day for 30 day(s) Loratadine 10 MG TK 1 T PO QD FOR Not-Joseph ing ALLERGIES Oral for 30 Divalproex Sodium ER 500 MG 3 tabs Orally at bedtime Active Albuterol Sulfate (2.5 3 ml as needed Inhalation Not-Taking MG/3ML) 0.083% Three times a day for 90 days Botox 200 UNIT as directed Injection Not- Taking Metformin HCl 500 MG TAKE 1 TABLET BY MOUTH Active TWICE DAILY WITH MEALS for Losartan Potassium 50 MG 1 tablet Orally Once a Active day for 90 Simvastatin 20 MG TAKE 1 TABLET BY MOUTH Active EVERY DAY IN THE EVENING for 90 Levothyroxine Sodium 200 1 tablet in the morning Active MCG on an empty stomach to equal 225mcg daily Orally Once a day for 90 days Topiramate 100 MG 1 tablet Orally Once a Active day for 30 day(s) Estradiol 0.1 MG/GM as directed Vaginal Two Not-Taking times a Week for 90 Breo Ellipta 200-25 MCG/INH 1 puff Inhalation Once a Active day for 90 Divalproex Sodium ER 500 MG 1 tablet Orally Twice a Active day for 30 day(s) Trazodone HCl 150 MG TK 1 TO 2 TS PO HS PRF Active INSOMNIA Oral for 90 Norvasc 5 MG 1 tablet Orally Once a Activ e day for 90 days Nystatin 216636 UNIT/GM 1 application Externally Not-Taking Twice a day to effected area for 30 Omeprazole 40 MG 1 capsule 30 minutes Act jose before morning meal Orally Once a day for 30 day(s) Januvia 100 MG 1 tablet Orally Once a Act jose day for 90 days Meloxicam 7.5 MG TK 1 T PO QD Oral for 28 Not-Taking Quetiapine Fumarate 300 MG 1 tablet at bedtime Active Orally Once a day Simvastatin 20 1 tablet in the evening Ac tive Orally Once a day for 90 days Duloxetine HCl 20 MG Orally Twice a day Active PROCEDURES No Information RESULTS No Results REASON FOR VISIT [place] Pt; Diabetic Shoes (In Lobby) MEDICAL (GENERAL) HISTORY Type Description Date Medical [...] mellitus with diabetic n ephropathy Medical History [place] or callus Medical History Abdominal pain, RLQ (right lower quadran t) Medical History ULCERS Medical History KIDNEY PROBLEMS Medical History HBP Medical History Photosensitivity dermatitis Medical History Pain in unspecified hip Medical History Shoulder pain, unspecified chronicity, u nspecified laterality Medical History Low back pain Medical History Allergic rhinitis, seasonal Medical History Ingrown toenail Medical History [place] or callus Medical History Abdominal pain, RLQ [...] STATUS No Information ASSESSMENTS Encounter Date Diagnosis Notes Jun, Type 2 diabetes mellitus with diabetic n ephropathy (ICD-10 - E11.21) PLAN OF TREATMENT Treatment Notes Assessment Notes Clinical Notes Type 2 diabetes mellitus with pt presents with paperwork fro m diabetic 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 exam performed, form filled out and signed. Insurance Providers Payer Name Payer Address Payer Insured Patient Coverage Cover age End Phone Name Relationship to Start Date Anthony e Insured [employer] [address] [address] [phone] Radha Santos [place] [address] [address] [phone]
--- OUTSIDE RECORDS SUMMARY | 2020-08-23 11:14 | XMS REPORT | Summary of Care ---
:1960 Author Organization [facility] - [facility] Address [address] [place] [id number] Care Team Providers Name Role Phone Lauren Matias Primary Care Provider Reason for Referral MRI/CAT Scan (STAT) Status Reason Specialty Diagnoses / Referred By Referred To Procedures Contact Contact New Request Diagnostic Diagnoses Lower abdominal pain Jessica Martinez Radiology Procedures CT ABDOMEN PELVIS W CONTRAST G, WORKCELL OPERATOR [address] [address] Reason for Visit Reason Comments Abdominal Pain Auth/Cert Status Reason Specialty Diagnoses / Referred By Referred To Procedures Contact Contact Emergency Medicine [facility] Em ergency Dept [address] [place] [address] Fax: Encounter Details Date Type Department Care Team Description 08/04/2020 Emergency ADC-Emergency Jessica Martinez G, Lower abd ominal pain (Primary Dx); Department WORKCELL OPERATOR Hepatomegaly 132 [facility] [address] [phone] Allergies No Known Allergiesdocumented as of this encounter (statuses as of 08/04/2020) Medications Medication Sig Dispensed Refills Start Date [...] as of this encounter (statuses as of 08/04/2020) Active Problems No known active problemsdocumented as of this encounter (statuses as of 08/04/2020) Social History Tobacco Use Types Packs/Day Years Used Date Never Smoker Smokeless Tobacco: Never Used Alcohol Use Drinks/Week oz/Week Comments No 0 Standard drinks or equivalent 0.0 Sex Assigned at Date Recorded Not on file COVID-19 Exposure Response Date Recorded In the last month, have you been in contact Unable to assess 08/04/2020 2:16 PM SOFTWARE TRAINER with someone who was confirmed or suspected to have Coronavirus / COVID-19? documented as of this encounter Last Filed Vital Signs Vital Sign Reading Time Taken Comments Blood Pressure 128/79 08/04/2020 7:22 PM SOFTWARE TRAINER Pulse 85 08/04/2020 7:22 PM SOFTWARE TRAINER Temperature 36.8 C (98.3 F) 08/04/2020 4:05 PM SOFTWARE TRAINER Respiratory Rate 18 08/04/2020 7:22 PM SOFTWARE TRAINER Oxygen Saturation 96% 08/04/2020 7:22 PM SOFTWARE TRAINER Inhaled Oxygen Concentration - - Weight 102.1 kg (225 lb) 08/04/2020 2:19 PM SOFTWARE TRAINER Height 170.2 cm (5' 7") 08/04/2020 2:19 PM SOFTWARE TRAINER Body Mass Index 35.24 08/04/2020 2:19 PM SOFTWARE TRAINER documented in this encounter Discharge Instructions Jessica Emery NP - 08/04/2020Diagnosis: Lower abdominal pain, no source Follow up with your Gi doctor documented in this encounter ED Notes Vibha David RN - 08/04/2020 2:17 PM CSTPatient coming to the Er for abdominal pain, patient was seen a [place] about a week ago. Patient pain pain located in the lower mid abdominal area. Patient reports having diarrhea and a hx of diverticulitis. . documented in this encounter Miscellaneous Notes ED Nurse Note - Wali Mesa RN - 08/04/2020 8:22 PM CSTPt given printed and verbal discharge instructions regarding abdominal pain, encouraged hydration, Prescriptions provided Pt verbalized understanding of instructions, pt awake alert oriented, resp reg unlabored, skin w/d, color appropriate for race, moves all ext well,pt encouraged to follow up with pcp and or GI Advised to seek medical attention for new/prolonged/worsening of symptoms, Symptoms improved No adverse reaction to meds given in ER noted upon discharge PIV d'cd, dressing to site, catheter in tact. Awake, alert oriented, resp reg unlabored, skin w/d, pt leaving amb with steady gait, in no apparent distress, WARE TRAINER documented in this encounter Plan of Treatment Name Type Priority Associated Diagnoses Date/Ti me CT ABDOMEN PELVIS W IMAGING STAT Lower abdominal pain 08/04/2020 6:34 PM SOFTWARE TRAINER CONTRAST Health Maintenance Due Date Last Done Comments [...] Name Priority Date/Time Associated Diagnosis Comme nts CT ABDOMEN PELVIS W STAT 08/04/2020 6:34 PM SOFTWARE TRAINER Lower abdo cassius pain CONTRAST Procedure Note - [facility], Radia nt Results Inft User - 08/04/2020 7:06 PM SOFTWARE TRAINER EXAM: CT ABDOMEN PELVIS W CONTRAST HISTORY: 60 years -old Femal e with Abd pain, diverticulitis suspected TECHNIQUE: Contrast - IV con trast was given, no oral contrast was given Portal venous phase - abdome n and pelvis Reconstructions - coronal an d sagittal planes COMPARISON: 01/01/2018 FINDINGS: Thoracic: Included images of the lower chest demonstrate no abnormalities. Hepatobiliary: Hepatomegaly (20 cm craniocaudally). Status post cholecystectomy. Mild dilata tion of the extrahepatic common bile duct measuring up to 0.7 cm in di ameter can be seen with reservoir phenomenon post cholecystectomy. Pancreas: Lipomatous infiltr ation of the pancreatic parenchyma. Spleen: No abnormality ident ified in the spleen. Adrenals: A 0.9 cm left adre nal gland nodule arising from the medial limb. No discrete right adrenal gl and nodule. Genitourinary: No parenchyma l abnormality identified in either kidney. Prominent bilateral extra re nal pelvises.. No hydronephrosis. Circumferential mural thicke cooper of the urinary bladder. Gastrointestinal: No evidenc e of bowel obstruction or perienteric inflammation. Relatively ect opic cecum present adjacent to the distal rectosigmoid junction. The a ppendix is not visualized but there are no pericecal inflammatory lang es of appendicitis. A 1 cm intraperitoneal calcified loose body adjacen t to the distal sigmoid colon, likely sequela of remote epiploic appendagi tis (2:40). Vascular/Lymphatics: Enlarge d mesenteric lymph nodes within the left hemiabdomen measure 1 cm (2: 61). Abdominal aorta is normal in caliber. MSK/Body Wall: No concerning bony lesion identified. A 2.9 cm right gluteal intramuscular lipoma. Ankylo sis of left L5 transverse process and underlying left sacral ala. Peritoneum/Other: No extralu cassius air. No extraluminal fluid. Diffuse mesenteric haziness. IMPRESSION 1. No diverticulosis or div erticulitis. The appendix is not visualized but there are no pericecal infla mmatory changes of appendicitis. 2. 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 3. Indeterminate 0.9 cm lef t adrenal gland nodule. Preliminary Report Dictated by Resident: Wilfrid Hay Ikwuagwu URINALYSIS STAT 08/04/2020 5:38 PM Lower abdominal Resul ts for this SOFTWARE TRAINER pain procedure are i n the results section. CBC WITH DIFF STAT 08/04/2020 5:38 PM Lower abdominal Resu lts for this SOFTWARE TRAINER pain procedure are i n the results section. BASIC METABOLIC PANEL STAT 08/04/2020 5:38 PM Lower abdomi nal Results for this (NA, K, CL, CO2, SOFTWARE TRAINER pain procedure a re in GLUCOSE, BUN, the results CREATININE, CA) section. HEPATIC FUNCTION STAT 08/04/2020 5:38 PM Lower abdominal R esults for this PANEL ([id number]) SOFTWARE TRAINER pain procedure are in (ALB,T.PRO,BILI the results T,BU/BC,ALT,AST,ALK section. PHOS) LIPASE STAT 08/04/2020 5:38 PM Lower abdominal Resul ts for this SOFTWARE TRAINER pain procedure are i n the results section. documented in this encounter Results Lipase Serum (08/04/2020 5:38 PM SOFTWARE TRAINER) Pathologist Sig nature LIPASE 82 0 - 220 U/L [facility] Specimen Blood - VENOUS Performing Organization Address [facility] Phone Number [facility] CLIA: [id number] [place] [address] LABORATORY 132 [facility] Hepatic Function Panel (ALB, T.PRO, BILI T, BU/BC, ALT, AST, ALK PHOS) (08/04/2020 5:38 PM SOFTWARE TRAINER) Pathologist Sig nature TOTAL BILI 0.3 0.1 - 1.1 mg/dL [facility] BILI UNCON 0.2 0.1 - 1.1 mg/dL [facility] BILI CONJ 0.0 0.0 - 0.3 mg/dL [facility] T PROTEIN 6.3 6.3 - 8.2 g/dL [facility] ALBUMIN 3.6 3.5 - 5.0 g/dL [facility] ALK PHOS 65 34 - 122 U/L [facility] ALTv 10 5 - 35 U/L [facility] AST(SGOT) 19 13 - 40 U/L [facility] Specimen Blood - VENOUS Performing Organization Address [facility] Phone Number [facility] CLIA: [id number] [place], [place] [id number] LABORATORY [address] Basic Metabolic Panel (NA, K, CL, CO2, GLUCOSE, BUN, CREATININE, CA) (08/04/2020 5:38 PM SOFTWARE TRAINER) Pathologist Sig nature NA 137 135 - 145 mmol/L [facility] K 4.7 3.5 - 5.0 mmol/L [facility] CL 104 98 - 108 mmol/L [facility] CO2 TOTAL 29 23 - 31 mmol/L [facility] AGAP 4 2 - 16 [facility] BUN 11 7 - 23 mg/dL [facility] GLUCOSE 107 70 - 110 mg/dL [facility] CREATININE 0.80 0.50 - 1.04 [facility] mg/dL [facility] CALCIUM 9.2 8.6 - 10.6 mg/dL [facility] eGFR Calculation 72.9 mL/min/1.73m2 [facility] (Non-) [facility] LABORATOR Y eGFR Calculation 88.4 mL/min/1.73m2 [facility] () [facility] Specimen Blood - VENOUS Narrative Performed At Association of Glomerular Filtration Rate (GFR) [facility] and Staging of Kidney Disease* + + +- + | GFR (mL/min/1.73 m2) | With Kidney Damage | Without Kidney Damage + + +- + | >90 | Stage one | Normal + + +- + | 60-89 | Stage two | Decreased GFR + + +- + | 30-59 | Stage three | Stage three + + +- + | 15-29 | Stage four | Stage four + + +- + | <15 (or dialysis) | Stage five | Stage five + + +- + *Each stage assumes the associated GFR level has been in effect for at least three months. Stages 1 to 5, with or without kidney disease, indicate chronic kidney disease. Notes: Determination of stages one and two (with eGFR >59mL/min/1.73 m2) requires estimation of kidney damage for at least three months as defined by structural or functional abnormalities of the kidney, manifested by either: Pathological abnormalities or Markers of kidney damage (including abnormalities in the composition of the blood or urine or abnormalities in imaging tests). Performing Organization Address City/State/Zipcode Phone Number [facility] CLIA: [id number] [place] [address] CBC with Differential (08/04/2020 5:38 PM SOFTWARE TRAINER) [facility] WBC 6.66 4.30 - 11.10 [facility] 10*3/L [facility]ITAL [facility] RBC 3.32 (L) 3.93 - 5.25 [facility] 10*6/L [facility] HGB 10.7 (L) 11.6 - 15.0 [facility] g/dL [facility] HCT 32.9 (L) 35.7 - 45.2 % [facility] MCV 99.1 (H) 80.6 - 95.5 fL [facility] MCH 32.2 25.9 - 32.8 pg [facility] MCHC 32.5 31.6 - 35.1 [facility] g/dL [facility] RDW-SD 48.7 39.0 - 49.9 fL [facility] RDW-CV 13.3 12.0 - 15.5 % [facility] PLT 186 166 - 358 [facility] 10*3/L [facility] MPV 10.8 9.5 - 12.9 fL [facility] NRBC/100 WBC 0.0 0.0 - 10.0 /100 [facility] WBCs [facility] NRBC x10^3 <0.01 10*3/L [facility] GRAN MAT (NEUT) % 60.9 % [facility] IMM GRAN % 0.30 % [facility] LYMPH % 27.3 % [facility] MONO % 8.4 % [facility] EOS % 2.3 % [facility] BASO % 0.8 % [facility] GRAN MAT x10^3(ANC) 4.06 1.88 - 7.09 [facility] 10*3/uL [facility]PITAL LAB[facility] IMM GRAN x10^3 <0.03 0.00 - 0.06 [facility] 10*3/uL [facility] LYMPH x10^3 1.82 1.32 - 3.29 [facility] 10*3/uL [facility] MONO x10^3 0.56 0.33 - 0.92 [facility] 10*3/uL [facility] EOS x10^3 0.15 0.03 - 0.39 [facility] 10*3/uL [facility] BASO x10^3 0.05 0.01 - 0.07 [facility] 10*3/uL [facility]ITAL LAB[facility] Specimen Blood - VENOUS Performing Organization Address [facility] Phone Number [facility] CLIA: [id number] [place] [address] Urinalysis (08/04/2020 5:38 PM SOFTWARE TRAINER) Pathologist Sig nature APPEARANCE Clear Clear [facility] COLOR Straw (A) Yellow [facility] PH 7.0 4.8 - 8.0 [facility] SP GRAVITY 1.006 1.003 - 1.030 [facility] GLU U QUAL Normal Normal [facility] BLOOD Negative Negative [facility] KETONES Negative Negative [facility] PROTEIN Negative Negative [facility] UROBILIN Normal Normal [facility] BILIRUBIN Negative Negative [facility] NITRITE Negative Negative [facility] LEUK MANSOOR Negative Negative [facility] RBC/HPF <1 0 - 3 HPF [facility] WBC/HPF <1 0 - 5 HPF [facility] BACTERIA Negative Negative [facility] SQ EPITH <1 HPF [facility] Specimen Urine - URINE, CLEAN CATCH Performing Organization Address [facility]/Zipcode Phone Number [facility] CLIA: [id number] [place] [address] [place] [address] documented in this encounter Visit Diagnoses Diagnosis Lower abdominal pain - Primary Abdominal pain, other specified site Hepatomegaly documented in this encounter Administered Medications Medication Order MAR Action Action Date Dose Rate Site FENTanyl PF (SUBLIMAZE (PF)) Given 08/04/2020 7:22 PM SOFTWARE TRAINER 25 mc g injection 25 mcg 25 mcg, Slow IV Push, ONCE, 1 dose, 08/04/20 at 2015, STAT FENTanyl PF (SUBLIMAZE (PF)) injection 50 Given 08/04/2020 5:39 PM SOFTWARE TRAINER 50 mcg mcg 50 mcg, Slow IV Push, ONCE, 1 dose, Sun08/04/20 at 1815, Routine iohexol (OMNIPAQUE 350 BULK-150 mL) Given 08/04/2020 6:45 PM CS T 120 mL injection 120 mL 120 mL, Intravenous, ONCE, 1 dose, Sun08/04/20 at 1845, Routine documented in this encounter Insurance Payer Benefit Plan Subscriber ID Effective Dates Phone Address Type / Group HUMANA - HUMANA CHOICE [id number] 2013-Presen Medicare Adv MANAGED t O MEDICARE documented as of this encounter
[2020-08-23] MEDS ORDERED: MORPHINE 4 MG/ML SYR ONE (11:55)
[2020-08-23] MEDS ORDERED: METRONIDAZOLE 500mg IVPB 500 MG/100 ML BAG IV ONE (11:56)
[2020-08-23] MEDS ORDERED: NA CHLORIDE 0.9% 1,000 ML ONE (11:56)
[2020-08-23] MEDS ORDERED: CIPROFLOXACIN 400mg IV 400 MG/200 ML BAG IV ONE (11:56)
[2020-08-23] MEDS ORDERED: ONDANSETRON 4 MG/2 ML VIAL ONE (11:56)
[2020-08-23 12:57] LABS: Absolute Lymphocytes (CBC) 1.6 K/uL (0.7-4.9); Basophils % 0.7 % (0-1.3); Hematocrit 36.6 % (36.0-45.0); Lymphocytes % 26.9 % (15.3-44.8); MPV 9.3 fL (7.6-11.3); RBC Red Blood Cell Count 3.77 M/uL (3.86-4.86)
[2020-08-23 13:14] LABS: ALT/SGPT 17 U/L (12-78); AST/SGOT 14 U/L (15-37); Albumin 3.7 g/dL (3.4-5.0); Alkaline Phosphatase 72 U/L (45-117); BUN Blood Urea Nitrogen 14 mg/dL (7-18); Bicarbonate 24 mmol/L (21-32); Bilirubin Direct < 0.1 mg/dL (0-0.2); Bilirubin Total 0.3 mg/dL (0.2-1.0); Glucose Level 70 mg/dL (74-106); Lipase 97 U/L (73-393); Magnesium 1.9 mg/dL (1.8-2.4); NT PRO-BNP 62 pg/mL (<125); Potassium 4.3 mmol/L (3.5-5.1); Protein, Total 7.5 g/dL (6.4-8.2); Protime INR 0.92; Sodium Level 140 mmol/L (136-145); Troponin (Emerg Dept Use Only) < 0.02 ng/mL (0.0-0.045)
--- NOTE | 2020-08-23 13:48 | RAD REPORT ---
EXAM DESCRIPTION: CT - Abdomen Pelvis W Contrast - 08/23/2020 1:34 pm CLINICAL HISTORY: ABD PAIN COMPARISON: Abdomen Pelvis W Contrast dated 05/18/2020 TECHNIQUE: Biphasic, helical CT imaging of the abdomen and pelvis was performed following 100 ml non -ionic IV contrast. Oral contrast was given. All CT scans are performed using dose optimization technique as appropriate and may include automated exposure control or mA/KV adjustment according to patient size. FINDINGS: No suspicious findings in the lung bases. The liver, spleen, and pancreas show no suspicious findings. Cholecystectomy clips are present. No bi liary tree dilatation. Symmetric renal function is seen with no hydronephrosis or suspicious renal mass. No pyelonephritis o r acute parenchymal process. No bladder abnormalities. No adrenal abnormalities. Uterus is absent. Ov yareli are absent or atrophic. No adnexal mass. Fluid is distended by ingested oral contrast and some component of food. Narrowing at the distal body antrum junction is believed to be peristalsis artifact. No delay in transit of contrast into the bow el. No outlet obstruction or gastric abnormality identified. No dilated large or small bowel. Cecum i s low lying along the pelvic floor. No evidence for appendicitis or active colon process. No free air, free fluid or inflammatory stranding. No hernia, mass or bulky lymphadenopathy. A few s mall mesenteric lymph nodes are present with the size and number similar or less prominent than seen on comparison. No suspicious bony findings. IMPRESSION: Contrast enhanced CT abdomen and pelvis showing no acute or emergent finding. A few small central mesenteric lymph nodes are present slightly less pronounced than seen May. Nonacute findings are detailed in the body of the report with the findings not substantially differen t from May 2020 imaging.
--- NOTE | 2020-08-23 14:25 | RAD REPORT ---
EXAM DESCRIPTION: Nichole Single View08/23/2020 12:32 pm CLINICAL HISTORY: Abdominal pain COMPARISON: 2017 FINDINGS: The lungs appear clear of acute infiltrate. The heart is normal size IMPRESSION: No acute abnormalities displayed
--- NOTE | 2020-08-23 14:28 | ER ---
Nurse's Notes [facility] Name: Radha Santos Age: 60 yrs Sex: Female : 1960 Arrival Date: 08/23/2020 Time: 10:51 Bed 3 Private MD: Diagnosis: Abdominal tenderness;Other chronic pain;Type 2 diabetes mellitus Presentation: 08/23 10:55 Chief complaint: EMS states: EXACERBATION OF CHRONIC ABDOMINAL PAIN. Coronavirus bp screen: At this time, the client does not indicate any symptoms associated with coronavirus-19. Ebola Screen: No symptoms or risks identified at this time. Initial Sepsis Screen: Does the patient meet any 2 criteria? HR > 90 bpm. No. Patient's initial sepsis screen is negative. Does the patient have a suspected source of infection? No. Patient's initial sepsis screen is negative. Risk Assessment: Do you want to hurt yourself or someone else? Patient reports no desire to harm self or others. Onset of symptoms is unknown. Care prior to arrival: Glucose check: 186. 10:55 Method Of Arrival: EMS: [facility] bp 10:55 Acuity: SAURAV 3 bp Triage Assessment: 10:55 General: Appears distressed, uncomfortable, obese, Behavior is cooperative, appropriate bp for age, agitated, anxious. Pain: Complains of pain in right lower quadrant and left lower quadrant. EENT: No deficits noted. Neuro: No deficits noted. Cardiovascular: No deficits noted. Respiratory: No deficits noted. GI: Abdomen is non-distended, obese, Abd is soft X 4 quads Reports lower abdominal pain. : No signs and/or symptoms were reported regarding the genitourinary system. Derm: No deficits noted. Musculoskeletal: No deficits noted. Historical: - Allergies: 10:58 No Known Allergies; bp - Home Meds: 10:58 sucralfate 100 mg/mL Oral susp 10 mL 4 times per day [Active]; amlodipine 5 mg tab 1 bp tab once daily [Active]; tramadol 50 mg Oral tab 1 tab three times a day [Active]; gabapentin 300 mg Oral cap 2 caps four times a day [Active]; metformin 500 mg Oral tr24 1 tab twice a day [Active]; trazodone 100 mg Oral tab 1-3 tabs at night [Active]; divalproex 500 mg Oral Tb24 2 tabs nightly [Active]; omeprazole 40 mg Oral cpDR 1 cap once daily [Active]; quetiapine 300 mg Oral tab 1 tab once daily [Active]; duloxetine 60 mg Oral cpDR 2 caps every morning [Active]; meloxicam 7.5 mg Oral tab 1 tab once daily [Active]; levothyroxine 200 mcg tab 1 tab once daily [Active]; losartan 50 mg oral tab 1 tab once daily [Active]; tizanidine 2 mg Oral cap 1 caps twice a day [Active]; simvastatin 20 mg Oral tab 1 tab nightly [Active]; - PMHx: 10:58 Anxiety; chronic back pain; CVA; Depression; Diabetes - NIDDM; GERD; High Cholesterol; bp Hypertension; Hypothyroidism; CHRONIC ABDOMINAL PAIN; - Immunization history:: Adult Immunizations up to date. - Social history:: Smoking status: Patient reports the use of cigarette tobacco products, unknown amount. - Family history:: not pertinent. Screenin:55 Abuse screen: Denies threats or abuse. Denies injuries from another. Nutritional bp screening: No deficits noted. Tuberculosis screening: No symptoms or risk factors identified. Fall Risk None identified. Assessment: 10:55 General: SEE TRIAGE NOTE. bp 12:00 Reassessment: No changes from previously documented assessment. Patient and/or family bp updated on plan of care and expected duration. Pain level reassessed. Patient is alert, oriented x 3, equal unlabored respirations, skin warm/dry/pink. PO CONTRAST COMPLETE, CT NOTIFIED. GI: Bowel sounds present X 4 quads. 14:00 Reassessment: No changes from previously documented assessment. Patient and/or family bp updated on plan of care and expected duration. Pain level reassessed. Patient is alert, oriented x 3, equal unlabored respirations, skin warm/dry/pink. 15:00 Reassessment: No changes from previously documented assessment. Patient and/or family bp updated on plan of care and expected duration. Pain level reassessed. Patient is alert, oriented x 3, equal unlabored respirations, skin warm/dry/pink. D/C ON HOLD FOR MD DELGADO. 16:22 Reassessment: PT D/C HOME AMBULATORY, DX WITH ABDOMINAL PAIN. bp Vital Signs: 10:55 BP 160 / 79; Pulse 111; Resp 16; Temp 97.8; Pulse Ox 92% on R/A; bp 10:57 BP 134 / 74; Pulse 105; Resp 20; Temp 97.9(O); Pulse Ox 99% ; Weight 113.4 kg; Height 5 5 ft. 7 in. (170.18 cm); Pain 9/10; 12:00 BP 129 / 73; Pulse 89; Resp 16; Pulse Ox 97% ; bp 14:00 BP 128 / 75; Pulse 98; Resp 16; Pulse Ox 96% ; bp 15:55 BP 131 / 75; Pulse 92; Resp 16; Pulse Ox 97% ; bp 10:57 Body Mass Index 39.16 (113.40 kg, 170.18 cm) [facility] ED Course: 10:51 Patient arrived in ED. bp 10:55 Arm band placed on. bp 10:59 Patient has correct armband on for positive identification. Placed in gown. Bed in low mh5 position. Call light in reach. Side rails up X2. Warm blanket given. site monitor on. Pulse ox on. NIBP on. 11:00 Inserted saline lock: 20 gauge in right forearm, using aseptic technique. Blood bp collected. 11:01 Triage completed. bp 11:03 Ethan Ray MD is Attending Physician. itz 11:30 Tai Sweeney, RIMA is Primary Nurse. bp 11:46 EKG done, by ED staff, reviewed by Ethan Ray MD. 5 12:33 XRAY Chest (1 view) In Process Unspecified. EDMS 13:34 CT Abd/Pelvis - PO and IV Contrast In Process Unspecified. EDMS 14:28 Katharina Hong MD is Referral Physician. itz 15:26 Urine collected: straight cath specimen, clear. 5 15:27 Urine Culture Sent. 5 16:22 No provider procedures requiring assistance completed. IV discontinued, intact, bp bleeding controlled, No redness/swelling at site. Pressure dressing applied. Administered Medications: 11:45 Drug: NS 0.9% 1000 ml Route: IV; Rate: 1 bolus; Site: right forearm; bp 16:24 Follow up: IV Status: Completed infusion; IV Intake: 1000ml bp 11:45 Drug: Flagyl 500 mg Volume: 100 ml; Route: IVPB; Rate: 200 ml/hr; Infused Over: 30 bp mins; Site: right forearm; 16:23 Follow up: IV Status: Completed infusion; IV Intake: 100ml bp 11:45 Drug: morphine 4 mg Route: IVP; Site: right forearm; bp 14:35 Follow up: Response: Pain is decreased bp 11:45 Drug: Zofran (Ondansetron) 4 mg Route: IVP; Site: right forearm; bp 14:35 Follow up: Response: No adverse reaction bp 12:30 Drug: Cipro 400 mg Volume: 200 ml; Route: IVPB; Infused Over: 60 mins; Site: right bp antecubital; 16:23 Follow up: IV Status: Completed infusion; IV Intake: 200ml bp 14:15 Drug: D50W 25 ml Route: IVP; Site: right forearm; bp 14:35 Follow up: Response: No adverse reaction bp Intake: 16:23 IV: 100ml; Total: 100ml. bp 16:23 IV: 200ml; Total: 300ml. bp 16:24 IV: 1000ml; Total: 1300ml. bp Outcome: 14:28 Discharge ordered by MD. mobley 16:22 Discharged to home ambulatory, with family. bp 16:22 Condition: stable 16:22 Discharge instructions given to patient, Instructed on discharge instructions, follow up and referral plans. medication usage, Demonstrated understanding of instructions, follow-up care, medications, Prescriptions given X 3. 16:24 Patient left the ED. bp Signatures: Dispatcher [employer] Ethan Dixon MD MD cha Martinez, Maria [facility] Tai Sweeney, RN RN bp
--- NOTE | 2020-08-23 14:28 | EDPHYS ---
Physician Documentation [facility] Name: Radha Santos Age: 60 yrs Sex: Female : 1960 Arrival Date: 08/23/2020 Time: 10:51 Bed 3 Private MD: ED Physician Ethan Ray HPI: 08/23 11:56 This 60 yrs old Female presents to ER via EMS with complaints of Abdominal itz Pain, CHRONIC PAIN. 11:56 The patient presents with abdominal pain in the upper abdomen, in the lower abdomen, itz abdominal distention in the upper abdomen, in the lower abdomen. Onset: The symptoms/episode began/occurred 3 day(s) ago. The symptoms do not radiate. Associated signs and symptoms: none. The symptoms are described as crampy. Modifying factors: The symptoms are alleviated by nothing, the symptoms are aggravated by nothing. Severity of pain: At its worst the pain was mild moderate in the emergency department the pain is unchanged. The patient has experienced similar episodes in the past, several times. Historical: - Allergies: 10:58 No Known Allergies; bp - Home Meds: 10:58 sucralfate 100 mg/mL Oral susp 10 mL 4 times per day [Active]; amlodipine 5 mg tab 1 bp tab once daily [Active]; tramadol 50 mg Oral tab 1 tab three times a day [Active]; gabapentin 300 mg Oral cap 2 caps four times a day [Active]; metformin 500 mg Oral tr24 1 tab twice a day [Active]; trazodone 100 mg Oral tab 1-3 tabs at night [Active]; divalproex 500 mg Oral Tb24 2 tabs nightly [Active]; omeprazole 40 mg Oral cpDR 1 cap once daily [Active]; quetiapine 300 mg Oral tab 1 tab once daily [Active]; duloxetine 60 mg Oral cpDR 2 caps every morning [Active]; meloxicam 7.5 mg Oral tab 1 tab once daily [Active]; levothyroxine 200 mcg tab 1 tab once daily [Active]; losartan 50 mg oral tab 1 tab once daily [Active]; tizanidine 2 mg Oral cap 1 caps twice a day [Active]; simvastatin 20 mg Oral tab 1 tab nightly [Active]; - PMHx: 10:58 Anxiety; chronic back pain; CVA; Depression; Diabetes - NIDDM; GERD; High Cholesterol; bp Hypertension; Hypothyroidism; CHRONIC ABDOMINAL PAIN; - Immunization history:: Adult Immunizations up to date. - Social history:: Smoking status: Patient reports the use of cigarette tobacco products, unknown amount. - Family history:: not pertinent. ROS: 11:56 Constitutional: Negative for fever, chills, and weight loss, Eyes: Negative for injury, itz pain, redness, and discharge, ENT: Negative for injury, pain, and discharge, Neck: Negative for injury, pain, and swelling, Cardiovascular: Negative for chest pain, palpitations, and edema, Respiratory: Negative for shortness of breath, cough, wheezing, and pleuritic chest pain, Back: Negative for injury and pain, : Negative for injury, bleeding, discharge, and swelling, MS/Extremity: Negative for injury and deformity, Skin: Negative for injury, rash, and discoloration, Neuro: Negative for headache, weakness, numbness, tingling, and seizure, Psych: Negative for depression, anxiety, suicide ideation, homicidal ideation, and hallucinations, Allergy/Immunology: Negative for hives, rash, and allergies, Endocrine: Negative for neck swelling, polydipsia, polyuria, polyphagia, and marked weight changes, Hematologic/Lymphatic: Negative for swollen nodes, abnormal bleeding, and unusual bruising. 11:56 Abdomen/GI: Positive for abdominal pain, of the right upper quadrant, left upper quadrant, right lower quadrant and left lower quadrant. Exam: 11:56 Constitutional: This is a well developed, well nourished patient who is awake, alert, itz and in no acute distress. Head/Face: Normocephalic, atraumatic. Eyes: Pupils equal round and reactive to light, extra-ocular motions intact. Lids and lashes normal. Conjunctiva and sclera are non-icteric and not injected. Cornea within normal limits. Periorbital areas with no swelling, redness, or edema. ENT: Nares patent. No nasal discharge, no septal abnormalities noted. Tympanic membranes are normal and external auditory canals are clear. Oropharynx with no redness, swelling, or masses, exudates, or evidence of obstruction, uvula midline. Mucous membranes moist. Neck: Trachea midline, no thyromegaly or masses palpated, and no cervical lymphadenopathy. Supple, full range of motion without nuchal rigidity, or vertebral point tenderness. No Meningismus. Chest/axilla: Normal chest wall appearance and motion. Nontender with no deformity. No lesions are appreciated. Cardiovascular: Regular rate and rhythm with a normal S1 and S2. No gallops, murmurs, or rubs. Normal PMI, no JVD. No pulse deficits. Respiratory: Lungs have equal breath sounds bilaterally, clear to auscultation and percussion. No rales, rhonchi or wheezes noted. No increased work of breathing, no retractions or nasal flaring. Back: No spinal tenderness. No costovertebral tenderness. Full range of motion. Female : Normal external genitalia. Skin: Warm, dry with normal turgor. Normal color with no rashes, no lesions, and no evidence of cellulitis. MS/ Extremity: Pulses equal, no cyanosis. Neurovascular intact. Full, normal range of motion. Neuro: Awake and alert, GCS 15, oriented to person, place, time, and situation. Cranial nerves II-XII grossly intact. Motor strength 5/5 in all extremities. Sensory grossly intact. Cerebellar exam normal. Normal gait. Psych: Awake, alert, with orientation to person, place and time. Behavior, mood, and affect are within normal limits. 11:56 Abdomen/GI: Inspection: distension, Bowel sounds: normal, Palpation: mild abdominal tenderness, in the suprapubic area, right upper quadrant, left upper quadrant, right lower quadrant and left lower quadrant, Liver: no appreciated palpable abnormalities, Hernia: not appreciated. 11:56 Musculoskeletal/extremity: DVT Exam: No signs of deep vein thrombosis. no pain, no swelling, no tenderness, negative Homans' sign noted on exam, no appreciated bluish discoloration, no erythema, no increased warmth. 12:00 ECG was reviewed by the Attending Physician. itz Vital Signs: 10:55 BP 160 / 79; Pulse 111; Resp 16; Temp 97.8; Pulse Ox 92% on R/A; bp 10:57 BP 134 / 74; Pulse 105; Resp 20; Temp 97.9(O); Pulse Ox 99% ; Weight 113.4 kg; Height 5 mh5 ft. 7 in. (170.18 cm); Pain 9/10; 12:00 BP 129 / 73; Pulse 89; Resp 16; Pulse Ox 97% ; bp 14:00 BP 128 / 75; Pulse 98; Resp 16; Pulse Ox 96% ; bp 15:55 BP 131 / 75; Pulse 92; Resp 16; Pulse Ox 97% ; bp 10:57 Body Mass Index 39.16 (113.40 kg, 170.18 cm) 5 MDM: 11:03 Patient medically screened. [facility] 11:59 Differential diagnosis: bowel obstruction, cholecystitis, Cholelithiasis, itz diverticulitis, non-specific abd pain, pancreatitis, Pyelonephritis, Ureterolithiasis, urinary tract infection. Data reviewed: vital signs, nurses notes, lab test result(s), EKG, radiologic studies, CT scan, plain films. 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 Test interpretation: by ED physician or midlevel provider: ECG, plain radiologic studies. Counseling: I had a detailed discussion with the patient and/or guardian regarding: the historical points, exam findings, and any diagnostic results supporting the discharge/admit diagnosis, lab results, radiology results. 08/23 11:28 Order name: Basic Metabolic Panel [facility] 08/23 11:28 Order name: CBC with Diff; Complete Time: 13:40 [facility] 08/23 11:28 Order name: LFT's; Complete Time: 13:40 [facility] 08/23 11:28 Order name: Magnesium; Complete Time: 13:40 [facility] 08/23 11:28 Order name: NT PRO-BNP; Complete Time: 13:40 [facility] 08/23 11:28 Order name: PT-INR; Complete Time: 13:40 [facility] 08/23 11:28 Order name: Troponin (emerg Dept Use Only); Complete Time: 13:40 [facility] 08/23 11:28 Order name: XRAY Chest (1 view); Complete Time: 14:27 [facility] 08/23 11:28 Order name: Lipase; Complete Time: 13:40 [facility] 08/23 11:28 Order name: CT Abd/Pelvis - PO and IV Contrast; Complete Time: 13:54 [facility] 08/23 11:28 Order name: Urine Culture [facility] 08/23 11:29 Order name: Basic Metabolic Panel; Complete Time: 13:40 [facility] 08/23 15:11 Order name: Urine Dipstick--Ancillary (enter results) 08/23 11:28 Order name: EKG; Complete Time: 11:29 [facility] 08/23 11:28 Order name: Cardiac monitoring; Complete Time: 11: [facility] 08/23 11:28 Order name: EKG - Nurse/Tech; Complete Time: 11:35 [facility] 08/23 11:28 Order name: IV Saline Lock; Complete Time: 15:56 [facility] 08/23 11:28 Order name: Labs collected and sent; Complete Time: 15:56 [facility] 08/23 11:28 Order name: O2 Per Protocol; Complete Time: : [facility] 08/23 11:28 Order name: O2 Sat Monitoring; Complete Time: : [facility] 08/23 11:28 Order name: Urine Dipstick-Ancillary (obtain specimen); Complete Time: 15:27 [facility] EC:00 Rate is 95 beats/min. Rhythm is regular. QRS [place] is Normal. IA interval is normal. QRS itz interval is normal. QT interval is normal. No Q waves. T waves are Normal. Clinical impression: NSR w/ Non-specific ST/T Changes and No evidence of ischemia. Interpreted by me. Reviewed by me. Administered Medications: 11:45 Drug: NS 0.9% 1000 ml Route: IV; Rate: 1 bolus; Site: right forearm; bp 16:24 Follow up: IV Status: Completed infusion; IV Intake: 1000ml bp 11:45 Drug: Flagyl 500 mg Volume: 100 ml; Route: IVPB; Rate: 200 ml/hr; Infused Over: 30 bp mins; Site: right forearm; 16:23 Follow up: IV Status: Completed infusion; IV Intake: 100ml bp 11:45 Drug: morphine 4 mg Route: IVP; Site: right forearm; bp 14:35 Follow up: Response: Pain is decreased bp 11:45 Drug: Zofran (Ondansetron) 4 mg Route: IVP; Site: right forearm; bp 14:35 Follow up: Response: No adverse reaction bp 12:30 Drug: Cipro 400 mg Volume: 200 ml; Route: IVPB; Infused Over: 60 mins; Site: right bp antecubital; 16:23 Follow up: IV Status: Completed infusion; IV Intake: 200ml bp 14:15 Drug: D50W 25 ml Route: IVP; Site: right forearm; bp 14:35 Follow up: Response: No adverse reaction bp Disposition: 08/23/20 14:28 Discharged to Home. Impression: Abdominal tenderness, Other chronic pain, Type 2 diabetes mellitus. - Condition is Stable. - Discharge Instructions: Abdominal Pain, Adult, Chronic Pain, Obesity, Adult, Abdominal Pain, Adult, [id number], Obesity, Adult, [id number], Type 2 Diabetes Mellitus, Self Care, Adult, Type 2 Diabetes Mellitus, Self Care, Adult, [id number]. - Prescriptions for Bentyl 20 mg Oral Tablet - take 1 tablet by ORAL route every 6 hours As needed; 20 tablet. Pepcid 20 mg Oral Tablet - take 1 tablet by ORAL route every 12 hours for 10 days; 20 tablet. Zofran 4 mg Oral Tablet - take 1 tablet by ORAL route every 12 hours As needed; 20 tablet. - Medication Reconciliation Form, Thank You Letter, Antibiotic Education, Prescription Opioid Use form. - Follow up: Private Physician; When: 2 - 3 days; Reason: Recheck today's complaints, Continuance of care, Re-evaluation by your physician. Follow up: Katharina Hong; When: 2 - 3 days; Reason: Recheck today's complaints, Continuance of care, Re-evaluation by your physician. - Problem is new. - Symptoms have improved. Signatures: Dispatcher [employer] EDMS Ethan Ray MD MD cha Peltier, Brian, RN RN bp Corrections: (The following items were deleted from the chart) 16:24 14:28 08/23/2020 14:28 Discharged to Home. Impression: Abdominal tenderness; Other bp chronic pain; Type 2 diabetes mellitus. Condition is Stable. Discharge Instructions: Abdominal Pain, Adult, Chronic Pain, Obesity, Adult, Abdominal Pain, Adult, [id number], Obesity, Adult, [id number], Type 2 Diabetes Mellitus, Self Care, Adult, Type 2 Diabetes Mellitus, Self Care, Adult, [id number]. Prescriptions for Bentyl 20 mg Oral Tablet - take 1 tablet by ORAL route every 6 hours As needed; 20 tablet, Pepcid 20 mg Oral Tablet - take 1 tablet by ORAL route every 12 hours for 10 days; 20 tablet, Zofran 4 mg Oral Tablet - take 1 tablet by ORAL route every 12 hours As needed; 20 tablet. and Forms are Medication Reconciliation Form, Thank You Letter, Antibiotic Education, Prescription Opioid Use. Follow up: Private Physician; When: 2 - 3 days; Reason: Recheck today's complaints, Continuance of care, Re-evaluation by your physician. Follow up: Katharina Hong; When: 2 - 3 days; Reason: Recheck today's complaints, Continuance of care, Re-evaluation by your physician. Problem is new. Symptoms have improved. itz
[2020-08-23] MEDS ORDERED: D50W 25 GM/50 ML SYRINGE IV ONE (14:29)
[2020-08-23 16:30] VITALS: TEMP 97.9
[2020-08-23 16:34] VITALS: BP 131/75; O2SAT 97
[2020-08-23 17:19] LABS: Urine Blood NEGATIVE (NEG); Urine Glucose NEGATIVE (NEG); Urine Protein NEGATIVE (NEG); Urine pH 5.5 (5.0-7.0)
--- NOTE | 2020-08-24 17:17 | EKG ---
Test Date: 2020-08-23 Test Time: 11:37:53 Diamond Expert: MAHOGANY MEASUREMENT RESULTS: Intervals: Rate: 95 CA: 154 QRSD: 82 QT: 370 QTc: 464 [place]: P: 59 CA: 154 QRS: 9 T: 43 INTERPRETIVE STATEMENTS: Normal sinus rhythm Possible Left atrial enlargement Low voltage QRS Borderline ECG Compared to ECG 09/30/2019 19:39:55 Low QRS voltage now present Electronically Signed On 08-24-20 17:13:13 DIRECTOR INDUSTRIAL RELATIONS by Davon Frank
== END 2020-08-23 16:24 | disposition home or self-care (01) ==
LOC: ER 10:48
DX: G89.29 Other chronic pain (principal); E11.9 Type 2 diabetes mellitus without complications; I10 Essential (primary) hypertension; F41.8 Other specified anxiety disorders; E03.9 Hypothyroidism, unspecified; E78.00 Pure hypercholesterolemia, unspecified; Z72.0 Tobacco use
CPT/HCPCS: 93005; 87088; 85025; 87086; 80048; 36415; 83735; 85610; 80076; 81003; 84484; 83690; 83880; 74177; 71045; 99285; Q9967; J7030; J2405; J0744

== ENCOUNTER 2021-03-22 15:23 | Emergency (ER) | payer OTHER ==
--- OUTSIDE RECORDS SUMMARY | 2021-03-22 15:26 | XMS REPORT | Continuity of Care Document ---
:1960 Author Organization [facility] t Address [address] [place] [address] Care Team Providers Name Role Phone Radiology Attending Clinician Unavailable Celso ALEGRE Attending Clinician Sebastián ABARCA, L Attending Clinician Unavailable Shari Kramer Attending Clinician Renée LEMUS Attending Clinician Ross LEMUS Attending Clinician Robbie CR Attending Clinician Maribel Moody MD Attending Clinician Kim LEMUS L Attending Clinician Doctor Unassigned, Name Attending Clinician Unavailable Ross LEMUS Admitting Clinician Problems This patient has no known problems. Allergies, Adverse Reactions, Alerts Allergy Allergy Status Severity Reaction(s) Onset Inactive Treating Comm ents Source Name Type Date Date Clinician Monistat Adverse Active vaginal [facility] 1 Reaction [facility] Latex Adverse Active rash [facility] Gloves Reaction [facility] Medications Ordered Filled Start Stop Current Ordering Indication Dosage Frequency Signature Comments Components Source Medication Medication Date Date Medication? Clinician (SIG) Name Name Levothyroxi Levothyroxi Yes Ruth [address] [facility] ne Sodium ne Sodium 4-07 [place] in the Miesha kes - 00:00: morning on Memoria 00 an empty [facility] stomach [facility] Levothyroxi Levothyroxi Yes Ruth [address] [facility] ne Sodium ne Sodium [place] in the Miesha kes - morning on Memoria an empty l stomach [facility] 225g Clinics daily Gabapentin Gabapentin Yes Ruth TK [address] [place] CAPSULES [facility] - PO QID [facility]N [facility] Ondansetron Ondansetron Yes Ruth TK [address] [facility] HCl HCl [place] QD FOR 10 [facility] - DAYS [facility]N [facility] Duloxetine Duloxetine Yes Ruth not [facility] HCl HCl [place] defined [facility] Breo Breo Yes Ruth [address] [facility] Ellipta Ellipta [place] [facility] Topiramate Topiramate Yes Ruth [address] [facility] [place] [facility] Albuterol Albuterol Yes Ruth 3 ml as [facility] Sulfate Sulfate [place] needed [facility] Trazodone Trazodone Yes Ruth TK [address] [facility] HCl HCl [place] TS PO HS [facility] PRF [facility]oria INSOMNIA l [facility] Tizanidine Tizanidine Yes Ruth [address] [facility] HCl HCl [place] as needed [facility] Yes Ruth [address] [facility] [place] [facility] Estradiol Estradiol Yes Ruth as [facility] [place] directed [facility] Sucralfate Sucralfate Yes Ruth [address] [facility] [place] on an [facility] - empty [facility]oria stomach l [facility] Nystatin Nystatin Yes Ruth [address] [facility] [place] applicatio [facility] Albuterol Albuterol Yes Ruth INL [address] [facility] Sulfate HFA Sulfate HFA [place] PO Q 6 H [facility] PRN [facility] Meloxicam Meloxicam Yes Ruth TK [address] [facility] [place] QD [facility] Loratadine Loratadine Yes Ruth TK [address] [facility] [place] QD FOR [facility] - ALLERGIES [facility] l [facility] Clinics Simvastatin Simvastatin Yes Ruth [address] [facility] [place] in the [facility] - evening [facility] l [facility]ics Pantoprazol Pantoprazol Yes Ruth [address] [facility] e Sodium e Sodium [place] [facility] - [facility]ics Lorazepam Lorazepam Yes Ruth [address] [facility] [place] at bedtime [facility] - as needed [facility]ics Metformin Metformin Yes Ruth TAKE [address] HCl HCl [place] TABLET [facility] Divalproex Divalproex Yes Ruth [address] [facility] [address] Sodium ER Sodium ER [place] Luke [facility] - Memoria l [facility]ics Quetiapine Quetiapine Yes Ruth [address] [facility] Fumarate Fumarate [place] at bedtime [facility] - [facility] Clinics Tramadol Tramadol Yes Ruth [address] HCl HCl [place] as needed [facility] Botox Botox Yes Ruth as [facility] [place] directed [facility] Zafaruvnawaf Mcgregoria Yes Ruth [address] [facility] [place] [facility] Divalproex Divalproex Yes Ruth [address] [facility] Sodium ER Sodium ER [place] Luke [facility] - [facility]ics Simvastatin Simvastatin Yes Ruth TAKE [address] [facility] [facility] [place] TABLET BY [facility] EVERY DAY l [facility] Losartan Losartan Yes Ruth [address] Potassium Potassium [place] Luke [facility] - Memoria l [facility] Clinics Oxybutynin Oxybutynin 2020- No Ruth [address] [facility] Chloride Chloride 10-31 [place] [facility] - 00:00 Memoria :00 [facility] ent Clinics Immunizations Ordered Filled Immunization Date Status Comments Sour e Immunization Name Name Pneumovax Pneumovax 2019-06-[address] [facility] - 00:[facility]00 [facility] Flucelvax - single Flucelvax - single 2019-05-[address] [facility] - dose syringe dose syringe 00:00:00 [facility] Prevnar 13 Prevnar 13 2018-05-[address] [facility] - -Pneumonia Vaccine -Pneumonia Vaccine 00:00:00 [facility] Outpatient [facility] Procedures This patient has no known procedures. Encounters Start End Encounter Admission Attending Care Care Encounter Source Date/Time Date/Time Type Type Clinicians Facility Department ID 2021-03-10 2021-03-10 [facility] Radiology [facility] [id number] 10:47:03 23:59:00 Encounter [place] [id number] [place] [id number] [place] [id number] 2021-03-10 2021-03-10 [facility] Radiology [facility] [id number] 10:45:00 10:46:00 Encounter [place] [id number] [place] [id number] [place] [id number] 2021-03-08 2021-03-08 [place], [facility] [id number] 20:00:13 20:20:13 Care [facility] [id number] [place] [id number] [facility] [id number] nal 0[address] One 2021-02-24 2021-02-24 [facility] [id number] [facility] St 00:00:00 00:00:00 [facility] 2021-02-19 2021-02-19 [facility] [id number] [facility] 2021-02-18 2021-02-18 Out[facility] [id number] [facility] St 00:00:00 00:00:00 [facility] 2021-02-16 2021-02-16 Out[facility] [id number] [facility] St 00:00:00 00:00:00 [facility] 2021-01-31 2021-01-31 Transition Daev Lowery [id number] 00:00:00 00:00:00 of Care Karen Neely Lopez [id number] [place] [id number] 2021-01-18 2021-01-28 [facility] Jona Davila [facility] [id number] 21:13:00 14:30:00 Encounter Mauro Chinchilla [place] [id number] FranciscoGomez barragan [place] [id number] [place] [id number] 082021-01-25 2021-01-25 Anesthesia NiaTai pittman [facility] [id number] 08:49:00 09:30:00 Event Randell López [place] [id number] [place] [id number] Surgical [id number] [place] 020 2021-01-25 2021-01-25 Surgery [facility] [id number] 08:33:00 09:08:00 [place] [id number] [place] [id number] Surgical [id number] [place] [id number] 2021-01-19 2021-01-19 Outpatient [facility] [id number] [facility] 2020-12-31 2020-12-31 Outpatient [facility] [id number] [facility] 2020-12-30 2020-12-30 Out[facility] [id number] [facility] 2020-12-20 2020-12-20 Outpatient [facility] [id number] [facility] 2020-12-08 2020-12-08 Telephone Kim [facility] [id number] 00:00:00 00:00:00 [facility] [id number] Surgical [id number] Special [id number] es 198 [place] 2020-12-07 2020-12-07 Orders Doctor ABISAI [id number] 00:00:00 00:00:00 Only Unassigned, BAR [id number] [place] [facility] [id number] 2020-12-06 2020-12-06 Office FLASH Alvarez [id number] 15:09:54 15:49:09 Visit [facility] [id number] Surgical [id number] [facility] [id number] 198 [place] 2020-11-16 2020-11-16 Outpatient [facility] [id number] [facility] 2020-11-03 2020-11-03 [facility] [id number] [facility] 2020-10-25 2020-10-25 Outpatient [facility] [id number] [facility] 2020-10-22 2020-10-22 Outpatient [facility] [id number] [facility] 2020-10-20 2020-10-20 Out[facility] [id number] [facility] 2020-10-12 2020-10-12 Out[facility] [id number] [facility] 2020-09-15 2020-09-15 Out[facility] [id number] [facility] 2020-07-12 2020-07-12 Out[facility] [id number] [facility] 2020-06-11 2020-06-11 Outpatient [facility] [id number] [facility] 2020-05-26 2020-05-26 Outpatient [facility] [id number] [facility] 2020-05-11 2020-05-11 Outpatient [facility] [id number] [facility] 2020-04-16 2020-04-16 [facility] [id number] [address] 15:00:00 15:00:00 t [facility] Medicine l Medicine Outpati ent Clinics 2020-04-16 2020-04-16 Outpatient [facility] [id number] [facility] 2020-04-13 2020-04-13 [facility] [id number] 08:51:00 08:51:00 t [facility] Medicine l Medicine Outpati ent Clinics 2020-02-27 2020-02-27 [facility] [id number] 14:00:00 14:00:00 t [employer] [place] [facility] l Medicine Outpati ent Clinics 2020-02-23 2020-02-23 [facility] [id number] 13:12:00 13:12:00 t [facility] Medicine l Medicine Outpati ent Clinics 2020-02-18 2020-02-18 [facility] [id number] 09:08:00 09:08:00 t [facility] Medicine l Medicine Outpati ent Clinics 2020-02-16 2020-02-16 [facility] [id number] 18:34:00 18:34:00 t [facility] l Medicine Outpati ent Clinics 2020-02-11 2020-02-11 [facility] [id number] 13:20:00 13:20:00 t [facility] Medicine Outpati ent Clinics 2020-01-06 2020-01-06 [facility] [id number] 18:46:00 18:46:00 t [facility] Medicine Outpati ent Clinics 2019-12-22 2019-12-22 [facility] [id number] 14:00:00 14:00:00 t Bone Bone and [facility] 2019-12-05 2019-12-05 [facility] [id number] 10:40:00 10:40:00 t [facility] Medicine Outpati ent Clinics 2019-11-28 2019-11-28 [facility] [id number] 11:00:00 11:00:00 [facility] Medicine Outpati ent Clinics 2019-11-10 2019-11-10 [facility] [id number] 15:55:00 15:55:00 t [facility] Medicine Outpati ent Clinics 2019-11-05 2019-11-05 [facility] [id number] 18:33:00 18:33:00 t [facility] Medicine Outpati ent Clinics 2019-10-28 2019-10-28 [facility] [id number] 11:08:00 11:08:00 [facility] Medicine Outpati ent Clinics 2019-10-27 2019-10-27 [facility] [id number] 14:31:00 14:31:00 t [facility] Medicine Outpati ent Clinics 2019-10-13 2019-10-13 [facility] [id number] 09:00:00 09:00:00 [facility] Medicine Outpati ent Clinics 2019-09-29 2019-09-29 [facility] [id number] 11:30:00 11:30:00 t [facility] Medicine Outpati ent Clinics 2019-09-18 2019-09-18 [facility] [id number] 14:40:00 14:40:00 t [facility] Medicine Outpati ent Clinics 2019-08-14 2019-08-14 [facility] [id number] 14:18:00 14:18:00 t [facility] Medicine Medicine Outpati ent Clinics 2019-08-13 2019-08-13 [facility] [id number] 11:00:00 11:00:00 t [facility] Medicine Outpati ent Clinics 2019-07-18 2019-07-18 [facility] [id number] 09:00:00 09:00:00 t [facility] Medicine Outpati ent Clinics 2019-06-23 2019-06-23 [facility] [id number] 10:40:00 10:40:00 t [facility] Medicine Outpati ent Clinics 2019-06-09 2019-06-09 [facility] [id number] 12:17:00 12:17:00 t [facility] Medicine Outpati ent Clinics 2019-06-09 2019-06-09 [facility] [id number] 08:20:00 08:20:00 t [facility] Medicine Outpati ent Clinics 2019-05-30 2019-05-30 [facility] [id number] 08:00:00 08:00:00 t [facility] Medicine Outpati ent Clinics 2019-04-03 2019-04-03 [facility] [id number] 09:00:00 09:00:00 t Bone [facility] ent Clinics 2019-03-24 2019-03-24 [facility] [id number] 10:15:00 10:15:00 t Specialty/U M[facility]ha kes - Specialty rology Memori a /Urology Clinic l Clinic Outpati ent Clinics 2019-03-04 2019-03-04 [facility] [id number] 11:00:00 11:00:00 t Specialty/U Mies[place] kes - Specialty rology Memori a /Urology Clinic l Clinic Outpati ent Clinics 2019-02-21 2019-02-21 [facility] [id number] 13:45:00 13:45:00 t Specialty/U [place] kes - Specialty rology Memori a /[facility] 2019-02-18 2019-02-18 [facility] [id number] 15:42:00 15:42:00 t [facility] Medicine Outpati ent Clinics 2019-02-11 2019-02-11 [facility] [id number] 13:20:00 13:20:00 t [facility] Medicine Medicine Outpati ent Clinics 2018-11-11 2018-11-11 [facility] [id number] [address] 09:20:00 09:20:00 t [facility] Medicine Medicine Outpati ent Clinics 2018-10-01 2018-10-01 [facility] [id number] 15:30:00 15:30:00 t [facility] Medicine Medicine Outpati ent Clinics 2018-09-06 2018-09-06 [facility] [id number] 10:00:00 10:00:00 t [facility] Medicine Medicine Outpati ent Clinics 2018-05-21 2018-05-21 [facility] [id number] 08:37:00 08:37:00 t [facility] Medicine Outpati ent Clinics 2018-05-09 2018-05-09 [facility] [id number] [facility] 08:30:00 08:30:00 [facility] Family Medicine Medicine Outpati ent Clinics Results This patient has no known results.
[2021-03-22 19:37] LABS: Absolute Lymphocytes (CBC) 2.3 K/uL (0.7-4.9); Basophils % 0.7 % (0-1.3); Hematocrit 35.1 % (36.0-45.0); MPV 8.2 fL (7.6-11.3)
[2021-03-22 19:51] LABS: ALT/SGPT 31 U/L (12-78); AST/SGOT 14 U/L (15-37); Albumin 3.9 g/dL (3.4-5.0); Alkaline Phosphatase 88 U/L (45-117); BUN Blood Urea Nitrogen 7 mg/dL (7-18); Bicarbonate 22 mmol/L (21-32); Bilirubin Direct < 0.1 mg/dL (0-0.2); Bilirubin Total 0.2 mg/dL (0.2-1.0); Glucose Level 133 mg/dL (74-106); Lipase 324 U/L (73-393); Potassium 3.1 mmol/L (3.5-5.1); Protein, Total 7.2 g/dL (6.4-8.2); Sodium Level 142 mmol/L (136-145)
[2021-03-22] MEDS ORDERED: MORPHINE 4 MG/ML SYR ONE (20:35)
[2021-03-22] MEDS ORDERED: ONDANSETRON 4 MG/2 ML VIAL ONE (20:35)
[2021-03-22] MEDS ORDERED: NA CHLORIDE 0.9% 1,000 ML ONE (20:35)
[2021-03-22] MEDS ORDERED: PANTOPRAZOLE 40 MG INJ ONE (20:36)
--- NOTE | 2021-03-22 22:28 | RAD REPORT ---
EXAM DESCRIPTION: CTAbdomen Pelvis W Contrast - 03/22/2021 8:01 pm CLINICAL HISTORY: Abdominal pain. ABD PAIN COMPARISON: Abdomen Pelvis W Contrast dated 08/23/2020; Abdomen Pelvis W Contrast dated 0; CT ABD PELVIS W CONTRAST dated 03/25/2009 TECHNIQUE: Biphasic CT imaging of the abdomen and pelvis was performed with 100 ml non-ionic IV cont rast. All CT scans are performed using dose optimization technique as appropriate and may include automated exposure control or mA/KV adjustment according to patient size. FINDINGS: The lung bases are clear. No focal liver lesions are seen. Cholecystectomy. No adrenal lesions. The pancreas and spleen are unr emarkable. No hydronephrosis. No renal calculi. No bowel obstruction, free air, free fluid or abscess. No evidence of significant lymphadenopathy. Hy sterectomy No suspicious bony findings. IMPRESSION: No acute intra-abdominal or pelvic finding.
--- NOTE | 2021-03-22 22:33 | EDPHYS ---
Physician Documentation [facility] Name: Radha Santos Age: 60 yrs Sex: Female : 1960 Arrival Date: 03/22/2021 Time: 15:24 Bed 10 Private MD: Ruth Matias ED Physician Ethan Ray HPI: 03/22 22:23 This 60 yrs old Female presents to ER via Wheelchair with complaints of kb Abdominal Pain, ulcer. 22:23 The patient presents with abdominal pain in the upper abdomen. Onset: The kb symptoms/episode began/occurred 2 day(s) ago. The symptoms do not radiate. Associated signs and symptoms: Pertinent positives: diarrhea, nausea. The symptoms are described as constant. Modifying factors: The symptoms are alleviated by nothing, the symptoms are aggravated by nothing. Severity of pain: At its worst the pain was moderate in the emergency department the pain is unchanged. The patient has not experienced similar symptoms in the past. The patient has not recently seen a physician. Pt reports she was admitted at [place] [facility] for about a week and discharged a week ago. States the pain never really went away, but it got worse yesterday. Reports nausea and diarrhea. Denies any active bleeding. States she has appt with GI in [place] tomorrow. Historical: - Allergies: 16:11 No Known Allergies; jl7 - PMHx: 16:11 Anxiety; Chronic Abdominal Pain; chronic back pain; CVA; Depression; Diabetes - NIDDM; jl7 GERD; High Cholesterol; Hypertension; Hypothyroidism; - PSHx: 16:11 section; Cholecystectomy; Total abdominal hysterectomy; jl7 - Immunization history:: Client reports receiving the 2nd dose of the Covid vaccine, J\T\J. - Social history:: Smoking status: Patient denies any tobacco usage or history of. ROS: 22:28 Constitutional: Negative for fever, chills, and weight loss. kb 22:28 Abdomen/GI: Positive for abdominal pain, nausea, diarrhea, Negative for vomiting, constipation. 22:28 All other systems are negative. 22:28 All other systems are negative. Exam: 22:28 Constitutional: This is a well developed, well nourished patient who is awake, alert, kb and in no acute distress. Head/Face: Normocephalic, atraumatic. Cardiovascular: Regular rate and rhythm with a normal S1 and S2. No gallops, murmurs, or rubs. No pulse deficits. Respiratory: Respirations even and unlabored. No increased work of breathing, no retractions or nasal flaring. Skin: Warm, dry with normal turgor. Normal color. MS/ Extremity: Pulses equal, no cyanosis. Neurovascular intact. Full, normal range of motion. Neuro: Awake and alert, GCS 15, oriented to person, place, time, and situation. Moves all extremities. Normal gait. Psych: Awake, alert, with orientation to person, place and time. Behavior, mood, and affect are within normal limits. 22:28 Abdomen/GI: Inspection: abdomen appears normal, Bowel sounds: normal, in all quadrants, Palpation: soft, in all quadrants, moderate abdominal tenderness, in the epigastric area. Vital Signs: 16:11 BP 124 / 85; Pulse 87; Resp 17; Temp 97.9; Pulse Ox 100% on R/A; Weight 102.06 kg; jl7 Height 5 ft. 7 in. (170.18 cm); Pain 10/10; 16:11 Body Mass Index 35.24 (102.06 kg, 170.18 cm) jl7 MDM: 19:13 Patient medically screened. kb 22:28 Data reviewed: vital signs, nurses notes. Data interpreted: Pulse oximetry: on room air kb is 100 %. Interpretation: normal. 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 03/22 18:42 Order name: Basic Metabolic Panel; Complete Time: 20:02 kb 03/22 18:42 Order name: CBC with Diff; Complete Time: 19:43 kb 03/22 18:42 Order name: Hepatic Function; Complete Time: 20:02 kb 03/22 18:42 Order name: Lipase; Complete Time: 20:02 kb 03/22 18:42 Order name: CT Abd/Pelvis - IV Contrast Only; Complete Time: 22:32 kb 03/22 18:42 Order name: IV Saline Lock; Complete Time: 19:13 kb 03/22 18:42 Order name: Labs collected and sent; Complete Time: 19:13 kb Administered Medications: 20:46 Drug: morphine 4 mg Route: IVP; Site: left wrist; 3 23:30 Follow up: Response: No adverse reaction lh3 20:46 Drug: Zofran (Ondansetron) 4 mg Route: IVP; Site: left wrist; lh3 23:30 Follow up: Response: No adverse reaction lh3 20:47 Drug: NS 0.9% 1000 ml Route: IV; Rate: 1000 ml; Site: left wrist; lh3 23:29 Follow up: Response: No adverse reaction; IV Status: Completed infusion; IV Intake: lh3 1000ml 20:47 Drug: ProTONIX (pantoprazole) 40 mg Route: IVP; Site: left wrist; lh3 23:30 Follow up: Response: No adverse reaction 3 23:26 Drug: Potassium Chloride 40 mEq Route: PO; lh3 23:30 Follow up: Response: No adverse reaction 3 Disposition: 03/23 07:37 Co-signature as Attending Physician, Ethan Ray MD I agree with the assessment and itz plan of care. Disposition Summary: 03/22/21 22:33 Discharge Ordered Location: Home kb Condition: Stable kb Diagnosis - Upper abdominal pain, unspecified kb - Hypokalemia kb Followup: kb - With: Emergency Department - When: As needed - Reason: Worsening of condition Followup: kb - With: Private Physician - When: 2 - 3 days - Reason: Recheck today's complaints, Continuance of care, Re-evaluation by your physician Discharge Instructions: - Discharge Summary Sheet kb - Abdominal Pain, Adult, [id number] kb Forms: - Medication Reconciliation Form kb - Thank You Letter kb - Antibiotic Education kb - Prescription Opioid Use kb Signatures: Dispatcher [employer] Indigo Concepcion, BUILDING DRAFTER-C BUILDING DRAFTER-Ethan Wong MD MD cha Leal, Jahala, RN RN jl7 Lu Simms, RN RN lh3
--- NOTE | 2021-03-22 22:33 | ER ---
Nurse's Notes [facility] Name: Radha Santos Age: 60 yrs Sex: Female : 1960 Arrival Date: 03/22/2021 Time: 15:24 Bed 10 Private MD: Ruth Matias Diagnosis: Upper abdominal pain, unspecified;Hypokalemia Presentation: 03/22 16:09 Chief complaint: Patient states: Epigastric abdominal pain x 2 days, was admitted last jl7 month in [place] for bleeding ulcers. Coronavirus screen: Client denies travel out of the [place] in the last 14 days. At this time, the client does not indicate any symptoms associated with coronavirus-19. Ebola Screen: No symptoms or risks identified at this time. Risk Assessment: Do you want to hurt yourself or someone else? Patient reports no desire to harm self or others. Onset of symptoms was March 21, 2021. 16:09 Method Of Arrival: [facility] 16:09 Method Of Arrival: [facility] clinic 16:11 Initial Sepsis Screen: Does the patient meet any 2 criteria? No. Patient's initial medical center clinic sepsis screen is negative. Does the patient have a suspected source of infection? No. Patient's initial sepsis screen is negative. 16:11 Acuity: SAURAV 3 jl7 Triage Assessment: 23:28 General: Appears in no apparent distress. Behavior is calm, cooperative, appropriate lh3 for age. Pain: Complains of pain in abdomen. GI: Reports lower abdominal pain, nausea. Historical: - Allergies: 16:11 No Known Allergies; jl7 - PMHx: 16:11 Anxiety; Chronic Abdominal Pain; chronic back pain; CVA; Depression; Diabetes - NIDDM; jl7 GERD; High Cholesterol; Hypertension; Hypothyroidism; - PSHx: 16:11 section; Cholecystectomy; Total abdominal hysterectomy; jl7 - Immunization history:: Client reports receiving the 2nd dose of the Covid vaccine, J\T\J. - Social history:: Smoking status: Patient denies any tobacco usage or history of. Screenin:28 Abuse screen: Denies threats or abuse. Nutritional screening: No deficits noted. lh3 Tuberculosis screening: No symptoms or risk factors identified. Fall Risk IV access (20 points). Vital Signs: 16:11 BP 124 / 85; Pulse 87; Resp 17; Temp 97.9; Pulse Ox 100% on R/A; Weight 102.06 kg; jl7 Height 5 ft. 7 in. (170.18 cm); Pain 10/10; 16:11 Body Mass Index 35.24 (102.06 kg, 170.18 cm) jl7 ED Course: 15:24 Patient arrived in ED. am2 15:25 Ruth Matias FNP-C is Private Physician. am2 16:11 Arm band placed on right wrist. jl7 16:13 Triage completed. jl7 18:42 Indigo Andrews FNP-C is [facility]. kb 18:42 Ethan Ray MD is Attending Physician. kb 19:30 Carolina Constantino, RIMA is Primary Nurse. iw 20:01 CT Abd/Pelvis - IV Contrast Only In Process Unspecified. EDMS 23:28 Patient has correct armband on for positive identification. lh3 23:28 No provider procedures requiring assistance completed. IV discontinued, bleeding lh3 controlled. Administered Medications: 20:46 Drug: morphine 4 mg Route: IVP; Site: left wrist; lh3 23:30 Follow up: Response: No adverse reaction lh3 20:46 Drug: Zofran (Ondansetron) 4 mg Route: IVP; Site: left wrist; lh3 23:30 Follow up: Response: No adverse reaction lh3 20:47 Drug: NS 0.9% 1000 ml Route: IV; Rate: 1000 ml; Site: left wrist; lh3 23:29 Follow up: Response: No adverse reaction; IV Status: Completed infusion; IV Intake: lh3 1000ml 20:47 Drug: ProTONIX (pantoprazole) 40 mg Route: IVP; Site: left wrist; lh3 23:30 Follow up: Response: No adverse reaction lh3 23:26 Drug: Potassium Chloride 40 mEq Route: PO; lh3 23:30 Follow up: Response: No adverse reaction lh3 Intake: 23:29 IV: 1000ml; Total: 1000ml. lh3 Outcome: 22:33 Discharge ordered by . kb 23:17 Patient left the ED. mw2 23:27 Discharged to home ambulatory. lh3 23:27 Condition: stable 23:27 Discharge instructions given to patient, Instructed on discharge instructions, follow up and referral plans. Demonstrated understanding of instructions. Signatures: Dispatcher [employer] EDNC Indigo Andrews, [employer] COMMANDING OFFICER-C [employer] COMMANDING OFFICER-Ckb Carolina Constantino, RN RN iw Sabas Vaz RN RN jl7 Vibha Hernandez [facility] Gage Casas 2 Lu Simms RN RN lh3
[2021-03-22] MEDS ORDERED: POTASSIUM CL SA 10 MEQ TAB PO ONE (23:11)
[2021-03-22 23:21] VITALS: BP 124/85; TEMP 97.9; O2SAT 100
== END 2021-03-22 23:17 | disposition home or self-care (01) ==
LOC: ER 15:23
DX: E87.6 Hypokalemia (principal); I10 Essential (primary) hypertension; Z86.73 Personal history of transient ischemic attack (TIA), and cerebral infarction without residual deficits
CPT/HCPCS: 96361; 85025; 80048; 36415; 82565; 80076; 83690; 74177; 96375; 96374; 99283; Q9967; C9113; J7030; J2405

== ENCOUNTER 2021-04-04 11:08 | Emergency (ER) | payer OTHER ==
--- OUTSIDE RECORDS SUMMARY | 2021-04-04 11:12 | XMS REPORT | Continuity of Care Document ---
:1960 Author Organization [facility] t Address [address] [place] [address] Care Team Providers Name Role Phone Radiology [...] [facility] Reaction [facility] Medications Ordered Filled Start Stop Current Ordering Indication Dosage Frequency Signature Comments Components Source Medication Medication Date Date Medication? Clinician (SIG) Name Name Levothyroxi Levothyroxi Yes Ruth [address] [facility] ne Sodium ne Sodium 4-07 [place] in the M[facility]ha kes - 00:00: morning on Memoria 00 an empty l stomach [facility] Levothyroxi Levothyroxi Yes Ruth [address] [facility] ne Sodium ne Sodium [place] in the Miesha kes - morning on Memoria an empty l stomach Outpati to [facility] 225g Clinics daily Gabapentin Gabapentin Yes Ruth TK [address] [place] CAPSULES [facility] - PO QID PRN [facility] Ondansetron Ondansetron Yes Ruth TK [address] [facility] HCl HCl [place] QD FOR 10 [facility] - DAYS PRN [facility] l [facility] Duloxetine Duloxetine Yes Ruth not [facility] HCl HCl [place] defined [facility] Breo Breo Yes Ruth [address] [facility] Ellipta Ellipta [place] [facility] Topiramate Topiramate Yes Ruth [address] [facility] [place] [facility] Albuterol Albuterol Yes Ruth 3 ml as [facility] Sulfate Sulfate [place] needed [facility] Trazodone Trazodone Yes Ruth TK [address] [facility] HCl HCl [place] TS PO HS [facility] PRF [facility]oria INSOMNIA l [facility] Tizanidine Tizanidine Yes Ruth [address] [facility] HCl HCl [place] as needed [facility] Yes Ruth [address] [facility] [place] [facility] Estradiol Estradiol Yes Ruth as [facility] [place] directed [facility] Sucralfate Sucralfate Yes Ruth [address] [facility] [place] on an [facility] empty [facility] stomach l [facility] Nystatin Nystatin Yes Ruth [address] [facility] [place] applicatio [facility] Albuterol Albuterol Yes Ruth INL [address] [facility] [address] Sulfate HFA Sulfate HFA [place] PO Q 6 H [facility] PRN [facility] Meloxicam Meloxicam Yes Ruth TK [address] [facility] [place] QD [facility] Loratadine Loratadine Yes Ruth TK [address] [facility] [place] QD FOR [facility] - ALLERGIES [facility] l [facility]ics Simvastatin Simvastatin Yes Ruth [address] [facility] [place] in the [facility] - evening [facility]oria l [facility]ics Pantoprazol Pantoprazol Yes Ruth [address] [facility] e Sodium e Sodium [place] [facility] Lorazepam Lorazepam Yes Ruth [address] [facility] [place] at bedtime [facility] - as needed [facility] Metformin Metformin Yes Ruth TAKE [address] HCl HCl [place] TABLET BY [facility] Divalproex Divalproex Yes Ruth [address] [facility] [address] Sodium ER Sodium ER [place] [facility] Quetiapine Quetiapine Yes Ruth [address] [facility] Fumarate Fumarate [place] at bed[facility] Tramadol Tramadol Yes Ruth [address] HCl HCl [place] as needed [facility] Botox Botox Yes Ruth as [facility] [place] directed [facility] Zafaruvnawaf Mcgregoria Yes Ruth [address] [facility] [place] [facility] Divalproex Divalproex Yes Ruth [address] [facility] [address] Sodium ER Sodium ER [place] [facility]ics Simvastatin Simvastatin Yes Ruth TAKE [address] [facility] [place] TABLET [facility] DAY l IN [facility] Clinics Losartan Losartan Yes Ruth [address] Potassium Potassium [place] [facility]ics Oxybutynin Oxybutynin 2020- No Ruth [address] [facility] Chloride Chloride 10-31 [place] [facility] - 00:00 Memoria :00 [facility] ent Clinics Immunizations Ordered Filled Immunization Date Status Comments Sour e Immunization Name Name Pneumovax Pneumovax 2019-06-[address] [facility] - 00:00[facility]00 [facility] Flucelvax - single Flucelvax - single 2019-05-[address] [facility] - dose syringe dose syringe 00:00:00 [facility] Prevnar 13 Prevnar 13 2018-05-[address] [facility] - -Pneumonia Vaccine -Pneumonia Vaccine 00:00:[address] [facility] [address] [facility] Procedures This patient has no known procedures. Encounters Start End Encounter Admission Attending Care Care Encounter Source Date/Time Date/Time Type Type Clinicians Facility Department ID 2021-03-10 2021-03-10 [facility] [id number] 10:47:03 23:59:00 Encounter [place] [id number] [place] [id number] [place] [id number] 2021-03-10 2021-03-10 [facility] Rad[facility] [id number] 10:45:00 10:46:00 Encounter [place] [id number] [place] [id number] [place] [id number] 2021-03-08 2021-03-08 [place], [facility] [id number] 20:00:13 20:20:[address] [facility] [id number] [place] [id number] [facility] [id number] nal 044 Office [address] One 2021-02-24 2021-02-24 [facility] [id number] [facility] St 00:00:00 00:00:00 [facility] 2021-02-19 2021-02-19 [facility] [id number] [facility] 2021-02-18 2021-02-18 [facility] [id number] [facility] St 00:00:00 00:00:00 [facility] 2021-02-16 2021-02-16 [facility] [id number] [facility] St 00:00:00 00:00:00 [facility] 2021-01-31 2021-01-31 Transition Dave Lowery [id number] 00:00:00 00:00:00 of Care Karen Neely Lopez [id number] [place] [id number] 2021-01-18 2021-01-28 [facility] Jona Davila [facility] [id number] 21:13:00 14:30:00 Encounter Mauro Chinchilla [place] [id number] FranciscoGomez barragan [place] [id number] [place] [id number] 082021-01-25 2021-01-25 Anesthesia NiaTai pittman [facility] [id number] 08:49:00 09:30:00 Event Randell López [place] [id number] [place] [id number] Surgical [id number] [place] 020 2021-01-25 2021-01-25 Surgery [facility] [id number] 08:33:00 09:08:00 [place] [id number] [place] [id number] Surgical [id number] [place] [id number] 2021-01-19 2021-01-19 [facility] [id number] [facility] 2020-12-31 2020-12-31 [facility] [id number] [facility] 2020-12-30 2020-12-30 [facility] [id number] [facility] 2020-12-20 2020-12-20 [facility] [id number] [facility] 2020-12-08 2020-12-08 Telephone Kim [facility] [id number] 00:00:00 00:00:00 [facility] [id number] Surgical [id number] Special [id number] es 198 [place] 2020-12-07 2020-12-07 Orders Doctor ABISAI [id number] 00:00:00 00:00:00 Only Unassigned, BAR [id number] [place] [facility] [id number] 2020-12-06 2020-12-06 Office FLASH Alvarez [id number] 15:09:54 15:49:09 Visit [facility] [id number] Surgical [id number] [facility] [id number] 198 [place] 2020-11-16 2020-11-16 Outpatient [facility] [id number] [facility] 2020-11-03 2020-11-03 [facility] [id number] [facility] 2020-10-25 2020-10-25 [facility] [id number] [facility] 2020-10-22 2020-10-22 [facility] [id number] [facility] 2020-10-20 2020-10-20 Out[facility] [id number] [facility] 2020-10-12 2020-10-12 Out[facility] [id number] [facility] 2020-09-15 2020-09-15 Out[facility] [id number] [facility] 2020-07-12 2020-07-12 Out[facility] [id number] [facility] 2020-06-11 2020-06-11 Out[facility] [id number] [facility] 2020-05-26 2020-05-26 [facility] [id number] [facility] 2020-05-11 2020-05-11 [facility] [id number] [facility] 2020-04-16 2020-04-16 [facility] [id number] 15:00:00 15:00:00 t [facility] Medicine l Medicine Outpati ent Clinics 2020-04-16 2020-04-16 [facility] [id number] [facility] 2020-04-13 2020-04-13 [facility] [id number] 08:51:00 08:51:00 t [facility] Medicine l Medicine Outpati ent Clinics 2020-02-27 2020-02-27 [facility] [id number] 14:00:00 14:00:00 t [facility] l Medicine Outpati ent Clinics 2020-02-23 2020-02-23 [facility] [id number] 13:12:00 13:12:00 t [facility] Medicine l Medicine Outpati ent Clinics 2020-02-18 2020-02-18 [facility] [id number] 09:08:00 09:08:00 t [facility] Medicine l Medicine Outpati ent Clinics 2020-02-16 2020-02-16 [facility] [id number] 18:34:00 18:34:00 t [facility] l Medicine Outpati ent Clinics 2020-02-11 2020-02-11 [facility] [id number] 13:20:00 13:20:00 t [facility] Medicine Outpati ent Clinics 2020-01-06 2020-01-06 [facility] [id number] 18:46:00 18:46:00 t [facility] Medicine Outpati ent Clinics 2019-12-22 2019-12-22 [facility] [id number] 14:00:00 14:00:00 t [facility] of [facility] 2019-12-05 2019-12-05 [facility] [id number] 10:40:00 10:40:00 t [facility] Medicine Outpati ent Clinics 2019-11-28 2019-11-28 [facility] [id number] 11:00:00 11:00:00 [facility] Medicine Outpati ent Clinics 2019-11-10 2019-11-10 [facility] [id number] 15:55:00 15:55:00 t [facility] Medicine Outpati ent Clinics 2019-11-05 2019-11-05 [facility] [id number] 18:33:00 18:33:00 t [facility] Medicine Outpati ent Clinics 2019-10-28 2019-10-28 [facility] [id number] 11:08:00 11:08:00 [facility] Medicine Outpati ent Clinics 2019-10-27 2019-10-27 [facility] [id number] 14:31:00 14:31:00 t [facility] Medicine Outpati ent Clinics 2019-10-13 2019-10-13 [facility] [id number] 09:00:00 09:00:00 [facility] Medicine Outpati ent Clinics 2019-09-29 2019-09-29 [facility] [id number] 11:30:00 11:30:00 t [facility] Medicine Outpati ent Clinics 2019-09-18 2019-09-18 [facility] [id number] 14:40:00 14:40:00 t [facility] Medicine Outpati ent Clinics 2019-08-14 2019-08-14 [facility] [id number] 14:18:00 14:18:00 t [facility] Medicine Medicine Outpati ent Clinics 2019-08-13 2019-08-13 [facility] [id number] 11:00:00 11:00:00 t [facility] Medicine Outpati ent Clinics 2019-07-18 2019-07-18 [facility] [id number] 09:00:00 09:00:00 t [facility] Medicine Outpati ent Clinics 2019-06-23 2019-06-23 [facility] [id number] 10:40:00 10:40:00 t [facility] Medicine Outpati ent Clinics 2019-06-09 2019-06-09 [facility] [id number] 12:17:00 12:17:00 t [facility] Medicine Outpati ent Clinics 2019-06-09 2019-06-09 [facility] [id number] 08:20:00 08:20:00 t [facility] Medicine Outpati ent Clinics 2019-05-30 2019-05-30 [facility] [id number] 08:00:00 08:00:00 t [facility] Medicine Outpati ent Clinics 2019-04-03 2019-04-03 [facility] [id number] 09:00:00 09:00:00 t Bone Bone and [facility] a Clinic of [facility] Clinics 2019-03-24 2019-03-24 [facility] [id number] 10:15:00 10:15:00 t Specialty/U [facility] kes - Specialty rology Memori a /Urology Clinic l Clinic Outpati ent Clinics 2019-03-04 2019-03-04 [facility] [id number] 11:00:00 11:00:00 t Specialty/U M[facility]ha kes - Specialty rology Memori a /Urology Clinic l Clinic Outpati ent Clinics 2019-02-21 2019-02-21 [facility] [id number] 13:45:00 13:45:00 t Specialty/U [facility]ha kes - Specialty rology Memori a /Urology Clinic l [facility] 2019-02-18 2019-02-18 [facility] [id number] 15:42:00 15:42:00 t [facility] Medicine Outpati ent Clinics 2019-02-11 2019-02-11 [facility] [id number] 13:20:00 13:20:00 t [facility] Medicine Medicine Outpati ent Clinics 2018-11-11 2018-11-11 [facility] [id number] 09:20:00 09:20:00 t [facility] Medicine Medicine Outpati ent Clinics 2018-10-01 2018-10-01 [facility] [id number] 15:30:00 15:30:00 t [facility] Medicine Medicine Outpati ent Clinics 2018-09-06 2018-09-06 [facility] [id number] 10:00:00 10:00:00 t [facility] Medicine Medicine Outpati ent Clinics 2018-05-21 2018-05-21 [facility] [id number] 08:37:00 08:37:00 t [facility] Medicine Outpati ent Clinics 2018-05-09 2018-05-09 [facility] [id number] 08:30:00 08:30:00 [facility] Family Medicine Medicine Outpati ent Clinics Results This patient has no known results.
[2021-04-04] MEDS ORDERED: MORPHINE 4 MG/ML SYR ONE (13:12)
[2021-04-04] MEDS ORDERED: NA CHLORIDE 0.9% 1,000 ML ONE (13:13)
[2021-04-04] MEDS ORDERED: ONDANSETRON 4 MG/2 ML VIAL ONE (13:13)
[2021-04-04] MEDS ORDERED: PANTOPRAZOLE 40 MG INJ ONE ×2 (13:13→15:24)
[2021-04-04] MEDS ORDERED: MORPHINE 2 MG/ML SYR ONE (13:17)
[2021-04-04 13:19] LABS: Protime INR 0.93
[2021-04-04 13:28] LABS: Absolute Lymphocytes (CBC) 1.6 K/uL (0.7-4.9); Basophils % 0.5 % (0-1.3); Hematocrit 36.4 % (36.0-45.0); Lymphocytes % 27.8 % (15.3-44.8); MPV 8.6 fL (7.6-11.3)
[2021-04-04 13:35] LABS: ALT/SGPT 36 U/L (12-78); AST/SGOT 14 U/L (15-37); Albumin 3.9 g/dL (3.4-5.0); Alkaline Phosphatase 89 U/L (45-117); BUN Blood Urea Nitrogen 10 mg/dL (7-18); Bicarbonate 23 mmol/L (21-32); Bilirubin Direct < 0.1 mg/dL (0-0.2); Bilirubin Total 0.2 mg/dL (0.2-1.0); Glucose Level 105 mg/dL (74-106); Lipase 148 U/L (73-393); Magnesium 1.8 mg/dL (1.8-2.4); NT PRO-BNP 42 pg/mL (<125); Potassium 3.9 mmol/L (3.5-5.1); Protein, Total 7.3 g/dL (6.4-8.2); Sodium Level 140 mmol/L (136-145); Troponin (Emerg Dept Use Only) < 0.02 ng/mL (0.0-0.045)
--- NOTE | 2021-04-04 13:48 | RAD REPORT ---
EXAM DESCRIPTION: Nichole Single View04/04/2021 1:42 pm CLINICAL HISTORY: Abdominal pain COMPARISON: none FINDINGS: The lungs appear clear of acute infiltrate. The heart is normal size IMPRESSION: No acute abnormalities displayed
[2021-04-04] MEDS ORDERED: PANTOPRAZOLE 40MG TABLET PO ONE (14:52)
--- NOTE | 2021-04-04 15:08 | RAD REPORT ---
EXAM DESCRIPTION: CT - Abdomen Pelvis W Contrast - 04/04/2021 2:45 pm CLINICAL HISTORY: Abdominal pain COMPARISON: March 22, 2021 TECHNIQUE: Computed axial tomography of the abdomen pelvis was obtained. 100 cc Isovue-300 was admin istered intravenously. Oral contrast was not requested which limits evaluation of bowel. All CT scans are performed using dose optimization technique as appropriate and may include automated exposure control or mA/KV adjustment according to patient size. FINDINGS: The liver, spleen, pancreas, adrenal and kidneys appear unremarkable. There is no evidence of diverticulitis. Cholecystectomy. Hysterectomy IMPRESSION: No acute abnormality is displayed.
--- NOTE | 2021-04-04 15:39 | ER ---
Nurse's Notes [facility] Name: Radha Santos Age: 60 yrs Sex: Female : 1960 Arrival Date: 04/04/2021 Time: 11:39 Bed 20 Private MD: Diagnosis: Acute gastritis;Abdominal tenderness Presentation: 04/04 12:12 Chief complaint: EMS states: pt recently diagnosed with ulcer, still having and pain, iw VSS. Coronavirus screen: At this time, the client does not indicate any symptoms associated with coronavirus-19. Ebola Screen: Patient negative for fever greater than or equal to 101.5 degrees Fahrenheit, and additional compatible Ebola Virus Disease symptoms Patient denies exposure to infectious person. Patient denies travel to an Ebola-affected area in the 21 days before illness onset. No symptoms or risks identified at this time. Initial Sepsis Screen: Does the patient meet any 2 criteria? No. Patient's initial sepsis screen is negative. Does the patient have a suspected source of infection? No. Patient's initial sepsis screen is negative. Risk Assessment: Do you want to hurt yourself or someone else? Patient reports no desire to harm self or others. Onset of symptoms was April 04, 2021. 12:12 Method Of Arrival: EMS: [facility] iw 12:12 Acuity: SAURAV 3 iw Historical: - Allergies: 13:00 No Known Allergies; iw - PMHx: 13:00 Anxiety; Chronic Abdominal Pain; chronic back pain; CVA; Depression; Diabetes - NIDDM; iw GERD; Hypertension; High Cholesterol; Hypothyroidism; - Immunization history:: Adult Immunizations up to date. - Family history:: not pertinent. - Social history:: Smoking status: unknown. Screenin:25 Abuse screen: Denies threats or abuse. Denies injuries from another. Nutritional tr6 screening: No deficits noted. Tuberculosis screening: No symptoms or risk factors identified. Fall Risk Fall in past 12 months (25 points). Assessment: 14:00 General: Appears uncomfortable, Behavior is calm, cooperative, appropriate for age. tr6 Pain: Complains of pain in epigastric area. Neuro: No deficits noted. Cardiovascular: No deficits noted. Respiratory: No deficits noted. GI: Bowel sounds present X 4 quads. Abdomen is tender to palpation in epigastric area. : No deficits noted. EENT: No deficits noted. Derm: No deficits noted. Musculoskeletal: No deficits noted. 16:47 Reassessment: pt waiting in waiting room for son. tr6 Vital Signs: 13:06 BP 136 / 85; Pulse 89; Resp 18; Pulse Ox 100% on R/A; tr6 ED Course: 11:39 Patient arrived in ED. iw 12:04 Carolina Constantino, RN is Primary Nurse. iw 12:12 Triage completed. iw 12:15 Ethan Ray MD is Attending Physician. itz 12:46 Primary Nurse role handed off by Carolina Constantino, RN tr6 12:46 Bonnie Small, RIMA is Primary Nurse. tr6 12:58 Arm band placed on. iw 13:42 XRAY Chest (1 view) In Process Unspecified. EDMS 14:45 CT Abd/Pelvis - IV Contrast Only In Process Unspecified. EDMS 15:38 Katharina Hong MD is Referral Physician. itz 16:25 Patient has correct armband on for positive identification. Bed in low position. Call tr6 light in reach. Side rails up X 1. Pulse ox on. NIBP on. Door closed. 16:25 No provider procedures requiring assistance completed. IV discontinued, intact, tr6 bleeding controlled, No redness/swelling at site. Pressure dressing applied. Administered Medications: 15:00 Drug: NS 0.9% 1000 ml Route: IV; Rate: 1 bolus; Site: left wrist; tr6 16:00 Follow up: IV Status: Completed infusion iw 15:00 Drug: morphine 2 mg Route: IVP; Site: left wrist; tr6 15:30 Follow up: Response: No adverse reaction iw 15:00 Drug: Zofran (Ondansetron) 4 mg Route: IVP; Site: left wrist; tr6 15:30 Follow up: Response: No adverse reaction iw 15:08 Drug: ProTONIX (pantoprazole) 80 mg Route: IVP; Site: left wrist; tr6 15:30 Follow up: Response: No adverse reaction iw 15:08 Drug: ProTONIX (pantoprazole) 40 mg Route: PO; tr6 15:20 Follow up: Response: No adverse reaction iw Outcome: 15:38 Discharge ordered by . itz 16:27 Discharged to home with family, pt son outside tr6 16:27 Condition: improved 16:27 Discharge instructions given to patient, Instructed on discharge instructions, follow up and referral plans. medication usage, safety practices, Demonstrated understanding of instructions, follow-up care, medications, Prescriptions given X 2. 16:47 Patient left the ED. iw Signatures: Dispatcher [employer] Ethan Dixon MD MD cha Williams, Irene, RN RN Bonnie Joyce RN RN tr6
--- NOTE | 2021-04-04 15:39 | EDPHYS ---
Physician Documentation [facility] Name: Radha Santos Age: 60 yrs Sex: Female : 1960 Arrival Date: 04/04/2021 Time: 11:39 Bed 20 Private MD: FRITZ Physician Ethan Ray HPI: 04/04 13:10 This 60 yrs old Female presents to ER via EMS with complaints of Abdominal itz Pain. 13:10 The patient presents with abdominal pain in the epigastric area, in the upper abdomen. itz Onset: The symptoms/episode began/occurred 3 day(s) ago. The patient presents to the emergency department with nausea, abdominal pain, of the epigastric area, right upper quadrant and left upper quadrant. Onset: The symptoms/episode began/occurred 3 day(s) ago. Possible causes: unknown. The symptoms are aggravated by movement, pressure, food , The symptoms are alleviated by nothing. remaining still. Associated signs and symptoms: The patient has no apparent associated signs or symptoms. The symptoms do not radiate. Associated signs and symptoms: none. Modifying factors: The symptoms are alleviated by nothing, the symptoms are aggravated by food, movement, pressure, touching the area. Historical: - Allergies: 13:00 No Known Allergies; iw - PMHx: 13:00 Anxiety; Chronic Abdominal Pain; chronic back pain; CVA; Depression; Diabetes - NIDDM; iw GERD; Hypertension; High Cholesterol; Hypothyroidism; - Immunization history:: Adult Immunizations up to date. - Family history:: not pertinent. - Social history:: Smoking status: unknown. ROS: 13:10 Constitutional: Negative for fever, chills, and weight loss, Eyes: Negative for injury, itz pain, redness, and discharge, ENT: Negative for injury, pain, and discharge, Neck: Negative for injury, pain, and swelling, Cardiovascular: Negative for chest pain, palpitations, and edema, Respiratory: Negative for shortness of breath, cough, wheezing, and pleuritic chest pain, Back: Negative for injury and pain, : Negative for injury, bleeding, discharge, and swelling, MS/Extremity: Negative for injury and deformity, Skin: Negative for injury, rash, and discoloration, Neuro: Negative for headache, weakness, numbness, tingling, and seizure, Psych: Negative for depression, anxiety, suicide ideation, homicidal ideation, and hallucinations, Allergy/Immunology: Negative for hives, rash, and allergies, Endocrine: Negative for neck swelling, polydipsia, polyuria, polyphagia, and marked weight changes, Hematologic/Lymphatic: Negative for swollen nodes, abnormal bleeding, and unusual bruising. 13:10 Abdomen/GI: Positive for abdominal pain, nausea, of the epigastric area, right upper quadrant and left upper quadrant. Exam: 13:10 Constitutional: This is a well developed, well nourished patient who is awake, alert, itz and in no acute distress. Head/Face: Normocephalic, atraumatic. Eyes: Pupils equal round and reactive to light, extra-ocular motions intact. Lids and lashes normal. Conjunctiva and sclera are non-icteric and not injected. Cornea within normal limits. Periorbital areas with no swelling, redness, or edema. ENT: Nares patent. No nasal discharge, no septal abnormalities noted. Tympanic membranes are normal and external auditory canals are clear. Oropharynx with no redness, swelling, or masses, exudates, or evidence of obstruction, uvula midline. Mucous membranes moist. Neck: Trachea midline, no thyromegaly or masses palpated, and no cervical lymphadenopathy. Supple, full range of motion without nuchal rigidity, or vertebral point tenderness. No Meningismus. Chest/axilla: Normal chest wall appearance and motion. Nontender with no deformity. No lesions are appreciated. Cardiovascular: Regular rate and rhythm with a normal S1 and S2. No gallops, murmurs, or rubs. Normal PMI, no JVD. No pulse deficits. Respiratory: Lungs have equal breath sounds bilaterally, clear to auscultation and percussion. No rales, rhonchi or wheezes noted. No increased work of breathing, no retractions or nasal flaring. Back: No spinal tenderness. No costovertebral tenderness. Full range of motion. Female : Normal external genitalia. Skin: Warm, dry with normal turgor. Normal color with no rashes, no lesions, and no evidence of cellulitis. MS/ Extremity: Pulses equal, no cyanosis. Neurovascular intact. Full, normal range of motion. Neuro: Awake and alert, GCS 15, oriented to person, place, time, and situation. Cranial nerves II-XII grossly intact. Motor strength 5/5 in all extremities. Sensory grossly intact. Cerebellar exam normal. Normal gait. Psych: Awake, alert, with orientation to person, place and time. Behavior, mood, and affect are within normal limits. 13:10 ECG was reviewed by the Attending Physician. 13:10 Abdomen/GI: Inspection: abdomen appears normal, Bowel sounds: normal, Palpation: mild abdominal tenderness, moderate abdominal tenderness, in the epigastric area, right upper quadrant and left upper quadrant, Liver: no appreciated palpable abnormalities, Hernia: not appreciated. Vital Signs: 13:06 BP 136 / 85; Pulse 89; Resp 18; Pulse Ox 100% on R/A; tr6 MDM: 12:15 Patient medically screened. [facility] 13:21 Differential diagnosis: Nonspecific abd pain, gastritis, cholecystitis, pancreatitis, itz viral gastroenteritis, AAA, bowel obstruction, cholecystitis, Cholelithiasis, diverticulitis, gastritis, gastroesophageal reflux disease, GI Bleed, Irritable bowel syndrome, myocardia ischemia or infarction, non-specific abd pain, pancreatitis, Peptic Ulcer Disease, Perf. Duodenal Ulcer, Perf. Gastric Ulcer, Ureterolithiasis, urinary tract infection. Data reviewed: vital signs, nurses notes, lab test result(s), EKG, radiologic studies, CT scan, plain films. 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 Test interpretation: by ED physician or midlevel provider: ECG, plain radiologic studies. Counseling: I had a detailed discussion with the patient and/or guardian regarding: the historical points, exam findings, and any diagnostic results supporting the discharge/admit diagnosis, lab results, radiology results. 04/04 12:17 Order name: Basic Metabolic Panel; Complete Time: 13:46 [facility] 04/04 12:17 Order name: CBC with Diff; Complete Time: 14:35 [facility] 04/04 12:17 Order name: LFT's; Complete Time: 13:46 [facility] 04/04 12:17 Order name: Magnesium; Complete Time: 13:46 [facility] 04/04 12:17 Order name: NT PRO-BNP; Complete Time: 13:46 [facility] 04/04 12:17 Order name: PT-INR; Complete Time: 13:46 [facility] 04/04 12:17 Order name: Troponin (emerg Dept Use Only); Complete Time: 13:46 [facility] 04/04 12:17 Order name: XRAY Chest (1 view); Complete Time: 14:35 [facility] 04/04 12:17 Order name: Lipase; Complete Time: 13:46 [facility] 04/04 13:51 Order name: CT Abd/Pelvis - IV Contrast Only; Complete Time: 15:38 [facility] 04/04 12:17 Order name: EKG; Complete Time: 12:18 [facility] 04/04 12:17 Order name: Cardiac monitoring; Complete Time: 15:10 [facility] 04/04 12:17 Order name: EKG - Nurse/Tech; Complete Time: 12:51 [facility] 04/04 12:17 Order name: IV Saline Lock; Complete Time: 12:51 [facility] 04/04 12:17 Order name: Labs collected and sent; Complete Time: 12:51 [facility] 04/04 12:17 Order name: O2 Per Protocol; Complete Time: 12:51 [facility] 04/04 12:17 Order name: O2 Sat Monitoring; Complete Time: 12:51 [facility] EC:10 Rate is 81 beats/min. Rhythm is regular. QRS [place] is Normal. CT interval is normal. QRS itz interval is normal. QT interval is normal. No Q waves. T waves are Normal. No ST changes noted. Clinical impression: Normal ECG and No evidence of ischemia. Interpreted by me. Reviewed by me. Administered Medications: 15:00 Drug: NS 0.9% 1000 ml Route: IV; Rate: 1 bolus; Site: left wrist; tr6 16:00 Follow up: IV Status: Completed infusion iw 15:00 Drug: morphine 2 mg Route: IVP; Site: left wrist; tr6 15:30 Follow up: Response: No adverse reaction iw 15:00 Drug: Zofran (Ondansetron) 4 mg Route: IVP; Site: left wrist; tr6 15:30 Follow up: Response: No adverse reaction iw 15:08 Drug: ProTONIX (pantoprazole) 80 mg Route: IVP; Site: left wrist; tr6 15:30 Follow up: Response: No adverse reaction iw 15:08 Drug: ProTONIX (pantoprazole) 40 mg Route: PO; tr6 15:20 Follow up: Response: No adverse reaction iw Disposition Summary: 04/04/21 15:38 Discharge Ordered Location: Home itz Problem: new itz Symptoms: have improved itz Condition: Stable itz Diagnosis - Acute gastritis itz - Abdominal tenderness itz Followup: itz - With: Private Physician - When: 2 - 3 days - Reason: Recheck today's complaints, Continuance of care, Re-evaluation by your physician Followup: itz - With: - When: 2 - 3 days - Reason: Recheck today's complaints, Continuance of care, Re-evaluation by your physician Discharge Instructions: - Discharge Summary Sheet itz - Abdominal Pain, Adult itz - Gastritis, Adult itz - Gastritis, Adult, [id number] itz - Abdominal Pain, Adult, [id number] [facility] Forms: - Medication Reconciliation Form [facility] - Thank You Letter [facility] - Antibiotic Education [facility] - Prescription Opioid Use [facility] Prescriptions: - Protonix 40 mg Oral Tablet - take 1 tablet by ORAL route once daily; 30 tablet; Refills: 0, Product [facility] Selection Permitted - Zofran 4 mg Oral Tablet - take 1 tablet by ORAL route every 12 hours As needed; 20 tablet; Refills: 0, [facility] Product Selection Permitted - dicyclomine 20 mg Oral Tablet - take 1 tablet by ORAL route 4 times per day; 28 tablet; Refills: 0, Product [facility] Selection Permitted Signatures: Dispatcher [employer] Ethan Dixon MD MD cha Williams, Irene, Bonnie Logan RN, RN RN tr6
[2021-04-04 17:20] VITALS: BP 136/85; O2SAT 100
--- NOTE | 2021-04-05 16:15 | EKG ---
Test Date: 2021-04-04 Test Time: 13:05:13 Application Support Engineer: MAGGIE MEASUREMENT RESULTS: Intervals: Rate: 81 MO: 178 QRSD: 96 QT: 400 QTc: 464 [place]: P: 59 MO: 178 QRS: 22 T: 48 INTERPRETIVE STATEMENTS: Normal sinus rhythm Normal ECG Compared to ECG 08/23/2020 11:37:53 No significant changes Electronically Signed On 04-05-21 16:11:57 CDT by Davon Frank
== END 2021-04-04 16:47 | disposition home or self-care (01) ==
LOC: ER 11:08
DX: K29.00 Acute gastritis without bleeding (principal); I10 Essential (primary) hypertension
CPT/HCPCS: 96361; 93005; 85025; 80048; 36415; 83735; 85610; 80076; 84484; 83690; 83880; 74177; 71045; 96375; 96374; 99284; Q9967; C9113 ×2; J2270; J7030; J2405

== ENCOUNTER 2021-06-18 13:46 | Emergency (ER) | payer OTHER ==
[2021-06-18] MEDS ORDERED: ONDANSETRON 4 MG/2 ML VIAL ONE ×2 (14:51→16:55)
[2021-06-18] MEDS ORDERED: MORPHINE 4 MG/ML SYR ONE (14:51)
[2021-06-18] MEDS ORDERED: NA CHLORIDE 0.9% 500 ML ONE (14:52)
[2021-06-18] MEDS ORDERED: NA CHLORIDE 0.9% 1,000 ML ONE (14:52)
[2021-06-18] MEDS ORDERED: FAMOTIDINE 20 MG/2 ML VIAL IV ONE (14:52)
[2021-06-18 16:35] LABS: Absolute Lymphocytes (CBC) 2.2 K/uL (0.7-4.9); Hematocrit 32.9 % (36.0-45.0); Lymphocytes % 34.6 % (15.3-44.8); MPV 8.6 fL (7.6-11.3)
[2021-06-18 16:49] LABS: Protime INR 0.87
[2021-06-18 16:57] LABS: ALT/SGPT 24 U/L (12-78); Albumin 3.2 g/dL (3.4-5.0); Alkaline Phosphatase 69 U/L (45-117); BUN Blood Urea Nitrogen 9 mg/dL (7-18); Bicarbonate 19 mmol/L (21-32); Bilirubin Direct < 0.1 mg/dL (0-0.2); Bilirubin Total 0.3 mg/dL (0.2-1.0); Glucose Level 92 mg/dL (74-106); Lipase 259 U/L (73-393); NT PRO-BNP 40 pg/mL (<125); Protein, Total 6.7 g/dL (6.4-8.2); Sodium Level 138 mmol/L (136-145); Troponin (Emerg Dept Use Only) < 0.02 ng/mL (0.0-0.045)
[2021-06-18 16:58] LABS: AST/SGOT 16 U/L (15-37); Magnesium 1.5 mg/dL (1.8-2.4); Potassium 3.9 mmol/L (3.5-5.1)
[2021-06-18 17:13] LABS: Urine Blood Negative (Negative); Urine Glucose Negative (Negative); Urine Protein Negative (Negative); Urine Specific Gravity <=1.005 (1.005-1.030)
--- NOTE | 2021-06-18 17:17 | RAD REPORT ---
EXAM DESCRIPTION: RAD - Chest Single View - 06/18/2021 5:00 pm CLINICAL HISTORY: ABDOMINAL DISTENTION COMPARISON: Portable April 04 TECHNIQUE: AP portable chest image was obtained 06/18/2021 5:00 pm . FINDINGS: Lung volumes are low accentuating the baseline interstitial pattern. Pattern is not substa ntially different but could mask early edema or infiltrate. Heart and vasculature are normal. No jj urable pleural effusion and no pneumothorax. No acute bony abnormality seen. No acute aortic findings suspected. IMPRESSION: No acute cardiopulmonary process. Chronic interstitial pattern could mask early edema or infiltrate.
--- NOTE | 2021-06-18 17:24 | RAD REPORT ---
EXAM DESCRIPTION: CT - Abdomen Pelvis W Contrast - 06/18/2021 5:10 pm CLINICAL HISTORY: ABD PAINprior cholecystectomy and hysterectomy COMPARISON: Abdomen Pelvis W Contrast dated 04/04/2021; Abdomen Pelvis W Contrast dated 03/22/2021 TECHNIQUE: Biphasic, helical CT imaging of the abdomen and pelvis was performed following 100 ml non -ionic IV contrast. Oral contrast was given. All CT scans are performed using dose optimization technique as appropriate and may include automated exposure control or mA/KV adjustment according to patient size. FINDINGS: No suspicious findings in the lung bases. The liver, spleen, and pancreas show no suspicious findings. Cholecystectomy clips are present. No bi liary tree dilatation. Symmetric renal function is seen with no hydronephrosis or suspicious renal mass. No pyelonephritis o r acute parenchymal process. No bladder abnormalities. No adrenal abnormalities. No dilated bowel loops or bowel wall thickening. Cecum is low-lying sitting on the floor the pelvis. Appendix is not clearly defined. There are no findings of appendicitis. No active GI process seen. No free air, free fluid or inflammatory stranding. No hernia, mass or bulky lymphadenopathy. Bony degenerative and joint changes are seen. No acute bone finding identifiable. IMPRESSION: Contrast enhanced CT abdomen and pelvis showing no acute or emergent finding. No significant change from comparison.
--- NOTE | 2021-06-18 17:38 | EDPHYS ---
Physician Documentation [facility] Name: Radha Santos Age: 60 yrs Sex: Female : 1960 Arrival Date: 06/18/2021 Time: 13:49 Bed 6 Private MD: Ruth Matias ED Physician Ethan Ray HPI: 06/18 15:05 This 60 yrs old Female presents to ER via Ambulatory with complaints of itz Abnormal Lab Results. 15:05 The patient presents with abdominal pain in the epigastric area, in the upper abdomen, itz abdominal distention in the upper abdomen, in the lower abdomen. Onset: The symptoms/episode began/occurred 2 day(s) ago. The symptoms do not radiate. Associated signs and symptoms: Pertinent positives: nausea. The symptoms are described as crampy. Modifying factors: The symptoms are alleviated by nothing, the symptoms are aggravated by food. Severity of pain: At its worst the pain was mild moderate in the emergency department the pain is unchanged. The patient has experienced similar episodes in the past, multiple times. Historical: - Allergies: 14:02 No Known Allergies; vg1 - Home Meds: 14:02 amlodipine 5 mg tab 1 tab once daily [Active]; divalproex 500 mg Oral Tb24 2 tabs vg1 nightly [Active]; duloxetine 60 mg Oral cpDR 2 caps every morning [Active]; gabapentin 300 mg Oral cap 2 caps four times a day [Active]; levothyroxine 200 mcg tab 1 tab once daily [Active]; losartan 50 mg Oral tab 1 tab once daily [Active]; meloxicam 7.5 mg Oral tab 1 tab once daily [Active]; metformin 500 mg Oral tr24 1 tab twice a day [Active]; omeprazole 40 mg Oral cpDR 1 cap once daily [Active]; simvastatin 20 mg Oral tab 1 tab nightly [Active]; trazodone 100 mg Oral tab 1-3 tabs at night [Active]; tramadol 50 mg Oral tab 1 tab three times a day [Active]; tizanidine 2 mg Oral cap 1 caps twice a day [Active]; sucralfate 100 mg/mL Oral susp 10 mL 4 times per day [Active]; quetiapine 300 mg Oral tab 1 tab once daily [Active]; - PMHx: 14:02 Anxiety; Chronic Abdominal Pain; chronic back pain; CVA; Depression; Diabetes - NIDDM; vg1 GERD; High Cholesterol; Hypertension; Hypothyroidism; - Immunization history:: Client reports receiving the Teddy \T\ Teddy single-dose vaccine. - Social history:: Smoking status: Patient denies any tobacco usage or history of. - Family history:: not pertinent. ROS: 15:05 Constitutional: Negative for fever, chills, and weight loss, Eyes: Negative for injury, itz pain, redness, and discharge, ENT: Negative for injury, pain, and discharge, Neck: Negative for injury, pain, and swelling, Cardiovascular: Negative for chest pain, palpitations, and edema, Respiratory: Negative for shortness of breath, cough, wheezing, and pleuritic chest pain, Back: Negative for injury and pain, : Negative for injury, bleeding, discharge, and swelling, MS/Extremity: Negative for injury and deformity, Skin: Negative for injury, rash, and discoloration, Neuro: Negative for headache, weakness, numbness, tingling, and seizure, Psych: Negative for depression, anxiety, suicide ideation, homicidal ideation, and hallucinations, Allergy/Immunology: Negative for hives, rash, and allergies, Endocrine: Negative for neck swelling, polydipsia, polyuria, polyphagia, and marked weight changes, Hematologic/Lymphatic: Negative for swollen nodes, abnormal bleeding, and unusual bruising. 15:05 Abdomen/GI: Positive for abdominal pain, of the epigastric area, right upper quadrant and left upper quadrant. Exam: 15:05 Constitutional: This is a well developed, well nourished patient who is awake, alert, itz and in no acute distress. Head/Face: Normocephalic, atraumatic. Eyes: Pupils equal round and reactive to light, extra-ocular motions intact. Lids and lashes normal. Conjunctiva and sclera are non-icteric and not injected. Cornea within normal limits. Periorbital areas with no swelling, redness, or edema. ENT: Nares patent. No nasal discharge, no septal abnormalities noted. Tympanic membranes are normal and external auditory canals are clear. Oropharynx with no redness, swelling, or masses, exudates, or evidence of obstruction, uvula midline. Mucous membranes moist. Neck: Trachea midline, no thyromegaly or masses palpated, and no cervical lymphadenopathy. Supple, full range of motion without nuchal rigidity, or vertebral point tenderness. No Meningismus. Chest/axilla: Normal chest wall appearance and motion. Nontender with no deformity. No lesions are appreciated. Respiratory: Lungs have equal breath sounds bilaterally, clear to auscultation and percussion. No rales, rhonchi or wheezes noted. No increased work of breathing, no retractions or nasal flaring. Back: No spinal tenderness. No costovertebral tenderness. Full range of motion. Female : Normal external genitalia. Skin: Warm, dry with normal turgor. Normal color with no rashes, no lesions, and no evidence of cellulitis. MS/ Extremity: Pulses equal, no cyanosis. Neurovascular intact. Full, normal range of motion. Neuro: Awake and alert, GCS 15, oriented to person, place, time, and situation. Cranial nerves II-XII grossly intact. Motor strength 5/5 in all extremities. Sensory grossly intact. Cerebellar exam normal. Normal gait. Psych: Awake, alert, with orientation to person, place and time. Behavior, mood, and affect are within normal limits. 15:05 Cardiovascular: Rate: tachycardic, Rhythm: regular, Heart sounds: murmur, not appreciated, Edema: is not appreciated, JVD: is not appreciated. 15:05 Abdomen/GI: Inspection: distension, that is mild, Bowel sounds: active, Palpation: moderate abdominal tenderness, in the epigastric area, right upper quadrant and left upper quadrant, Liver: no appreciated palpable abnormalities, Hernia: not appreciated. 15:14 ECG was reviewed by the Attending Physician. itz 16:56 Abdomen/GI: Rectal exam: rectal tone normal, Stool: normal, guaiac negative, itz hemorrhoid(s), are not appreciated, mass, is not appreciated, swelling, is not appreciated, tenderness, is not appreciated, fecal impaction, is not appreciated. Vital Signs: 13:56 BP 135 / 71; Pulse 103; Resp 18; Temp 97.7; Pulse Ox 100% ; Weight 93.89 kg; Height 5 vg1 ft. 7 in. (170.18 cm); Pain 8/10; 16:30 BP 153 / 80; Pulse 88; Resp 22 S; Pulse Ox 96% on R/A; as6 18:35 BP 106 / 62; Pulse 78; Resp 20; Pulse Ox 96% on R/A; as6 19:10 BP 128 / 80; Pulse 90; Resp 18; Pulse Ox 100% on R/A; lp1 13:56 Body Mass Index 32.42 (93.89 kg, 170.18 cm) vg1 MDM: 14:23 Patient medically screened. itz 15:10 Differential diagnosis: bowel obstruction, Cholelithiasis, diverticulitis, gastritis, itz gastroesophageal reflux disease, GI Bleed, non-specific abd pain, pancreatitis, Peptic Ulcer Disease, Peritonitis, urinary tract infection. Data reviewed: vital signs, nurses notes, lab test result(s), EKG, radiologic studies, CT scan, plain films. 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 Test interpretation: by ED physician or midlevel provider: ECG, plain radiologic studies. Counseling: I had a detailed discussion with the patient and/or guardian regarding: the historical points, exam findings, and any diagnostic results supporting the discharge/admit diagnosis, lab results, radiology results. 06/18 14:27 Order name: Basic Metabolic Panel; Complete Time: 16:59 [facility] 06/18 14:27 Order name: CBC with Diff; Complete Time: 16:38 [facility] 06/18 14:27 Order name: LFT's; Complete Time: 16:59 [facility] 06/18 14:27 Order name: Magnesium; Complete Time: 16:59 [facility] 06/18 14:27 Order name: NT PRO-BNP; Complete Time: 16:59 [facility] 06/18 14:27 Order name: PT-INR; Complete Time: 16:55 [facility] 06/18 14:27 Order name: Troponin (emerg Dept Use Only); Complete Time: 16:59 [facility] 06/18 14:27 Order name: XRAY Chest (1 view); Complete Time: 17:23 [facility] 06/18 14:27 Order name: Lipase; Complete Time: 16:59 [facility] 06/18 14:27 Order name: CT Abd/Pelvis - PO and IV Contrast; Complete Time: 17:35 [facility] 06/18 14:31 Order name: Type And Screen as6 06/18 17:08 Order name: Urine Culture [facility] 06/18 17:13 Order name: Urine Dipstick-Ancillary; Complete Time: 17:23 [facility] 06/18 17:51 Order name: Antibody Screen [facility] 06/18 14:27 Order name: EKG; Complete Time: 14:28 [facility] 06/18 14:27 Order name: Cardiac monitoring; Complete Time: 14:47 [facility] 06/18 14:27 Order name: EKG - Nurse/Tech; Complete Time: 14:47 [facility] 06/18 14:27 Order name: IV Saline Lock; Complete Time: 16:34 [facility] 06/18 14:27 Order name: Labs collected and sent; Complete Time: 16:35 [facility] 06/18 14:27 Order name: O2 Per Protocol; Complete Time: 14:47 [facility] 06/18 14:27 Order name: O2 Sat Monitoring; Complete Time: 14:47 [facility] 06/18 17:08 Order name: Urine Dipstick-Ancillary (obtain specimen); Complete Time: 17:37 [facility] EC:14 Rate is 90 beats/min. Rhythm is regular. QRS [place] is Normal. TX interval is normal. QRS itz interval is normal. QT interval is normal. No Q waves. T waves are Normal. No ST changes noted. Clinical impression: Normal ECG and No evidence of ischemia. Interpreted by me. Reviewed by me. Administered Medications: 16:36 Drug: morphine 4 mg Route: IVP; Site: right upper arm; as6 17:30 Follow up: Response: No adverse reaction; Pain is decreased; RASS: Alert and Calm (0) as6 16:36 Drug: Zofran (Ondansetron) 4 mg Route: IVP; Site: right upper arm; as6 17:30 Follow up: Response: No adverse reaction; Nausea unchanged as6 16:36 Drug: Pepcid (famotidine) 20 mg Route: IVP; Site: right upper arm; as6 17:30 Follow up: Response: No adverse reaction as6 16:37 Drug: NS 0.9% 500 ml Route: IV; Rate: bolus; Site: right upper arm; as6 18:02 Follow up: Response: No adverse reaction; IV Status: Completed infusion; IV Intake: as6 500ml 16:59 Drug: Zofran (Ondansetron) 4 mg Route: IVP; Site: right upper arm; as6 18:04 Follow up: Response: No adverse reaction; Nausea is decreased as6 17:01 CANCELLED (Duplicate Order): NS 0.9% 500 ml IV at bolus once itz 17:53 Not Given (canled): NS 0.9% 1000 ml IV at 125 ml/hr continuous as6 18:00 Drug: Magnesium Sulfate 2 grams Route: IVPB; Infused Over: 1 hrs; Site: right upper arm;as6 19:07 Follow up: Response: No adverse reaction; IV Status: Completed infusion; IV Intake: [id number] 18:00 Drug: ProTONIX (pantoprazole) 40 mg Route: IVP; Site: right upper arm; as6 18:00 Drug: NS 0.9% 1000 ml Route: IV; Rate: 1 bolus; Site: right upper arm; as6 19:10 Follow up: IV Status: Completed infusion; IV Intake: 1000ml lp1 Disposition Summary: 06/18/21 17:38 Discharge Ordered Location: Home itz Problem: new itz Symptoms: have improved itz Condition: Stable itz Diagnosis - Anemia, unspecified itz - Abdominal pain, unspecified itz - Anxiety disorder, unspecified itz - Hypomagnesemia itz Followup: itz - With: Private Physician - When: 2 - 3 days - Reason: Recheck today's complaints, Continuance of care, Re-evaluation by your physician Followup: itz - With: - When: 2 - 3 days - Reason: Recheck today's complaints, Re-evaluation by your physician Discharge Instructions: - Discharge Summary Sheet itz - Abdominal Pain, Adult itz - Anemia itz - Abdominal Pain, Adult, [id number] itz - Hypomagnesemia itz Forms: - Medication Reconciliation Form itz - Thank You Letter itz - Antibiotic Education itz - Prescription Opioid Use itz Prescriptions: - dicyclomine 20 mg Oral tablet - take 1 tablet by ORAL route 4 times per day; 28 tablet; Refills: 0, Product itz Selection Permitted - Zofran 4 mg Oral Tablet - take 1 tablet by ORAL route every 12 hours As needed; 20 tablet; Refills: 0, itz Product Selection Permitted Signatures: Dispatcher [employer] EDEthan Vann MD MD cha Attema, Lee, PROGRAM REP-C PROGRAM REP-Cla1 Higinio Perez RN RN jd3 Martha Blas RN RN vg1 Pedro Canseco RN RN as6 Leslie Almonte RN lp1 Corrections: (The following items were deleted from the chart) 17:01 17:00 NS 0.9% 500 ml IV at bolus once ordered. itz itz
--- NOTE | 2021-06-18 17:38 | ER ---
Nurse's Notes [facility] Name: Radha Santos Age: 60 yrs Sex: Female : 1960 Arrival Date: 06/18/2021 Time: 13:49 Bed 6 Private MD: Ruth Matias Diagnosis: Anemia, unspecified;Abdominal pain, unspecified;Anxiety disorder, unspecified;Hypomagnesemia Presentation: 06/18 13:56 Chief complaint: Patient states: Pt was told by GI doctor, DR Reyna, that vg1 platelet results were low and needed to come to ED. Pt states upper ABD pain that radiates to back. Pt states Nausea and Diarrhea; states dark stools. Coronavirus screen: Vaccine status: Patient reports receiving the 1st dose of the Covid vaccine. Client denies travel out of the [place] in the last 14 days. Ebola Screen: Patient negative for fever greater than or equal to 101.5 degrees Fahrenheit, and additional compatible Ebola Virus Disease symptoms. Initial Sepsis Screen: Does the patient meet any 2 criteria? HR > 90 bpm. Does the patient have a suspected source of infection? No. Patient's initial sepsis screen is negative. Risk Assessment: Do you want to hurt yourself or someone else? Patient reports no desire to harm self or others. Onset of symptoms was June 18, 2021. 13:56 Method Of Arrival: Ambulatory vg1 13:56 Acuity: SAURAV 3 vg1 Triage Assessment: 14:02 General: Appears in no apparent distress. comfortable, Behavior is cooperative, vg1 anxious. Pain: Complains of pain in right upper quadrant and left upper quadrant Pain currently is 8 out of 10 on a pain scale. Historical: - Allergies: 14:02 No Known Allergies; vg1 - Home Meds: 14:02 amlodipine 5 mg tab 1 tab once daily [Active]; divalproex 500 mg Oral Tb24 2 tabs vg1 nightly [Active]; duloxetine 60 mg Oral cpDR 2 caps every morning [Active]; gabapentin 300 mg Oral cap 2 caps four times a day [Active]; levothyroxine 200 mcg tab 1 tab once daily [Active]; losartan 50 mg Oral tab 1 tab once daily [Active]; meloxicam 7.5 mg Oral tab 1 tab once daily [Active]; metformin 500 mg Oral tr24 1 tab twice a day [Active]; omeprazole 40 mg Oral cpDR 1 cap once daily [Active]; simvastatin 20 mg Oral tab 1 tab nightly [Active]; trazodone 100 mg Oral tab 1-3 tabs at night [Active]; tramadol 50 mg Oral tab 1 tab three times a day [Active]; tizanidine 2 mg Oral cap 1 caps twice a day [Active]; sucralfate 100 mg/mL Oral susp 10 mL 4 times per day [Active]; quetiapine 300 mg Oral tab 1 tab once daily [Active]; - PMHx: 14:02 Anxiety; Chronic Abdominal Pain; chronic back pain; CVA; Depression; Diabetes - NIDDM; vg1 GERD; High Cholesterol; Hypertension; Hypothyroidism; - Immunization history:: Client reports receiving the Teddy \T\ Teddy single-dose vaccine. - Social history:: Smoking status: Patient denies any tobacco usage or history of. - Family history:: not pertinent. Screenin:07 Abuse screen: Denies threats or abuse. Nutritional screening: No deficits noted. jd3 Tuberculosis screening: No symptoms or risk factors identified. Fall Risk Ambulatory Aid- None/Bed Rest/Nurse Assist (0 pts). Gait- Normal/Bed Rest/Wheelchair (0 pts) Mental Status- Oriented to own ability (0 pts). Total [place] Fall Scale indicates No Risk (0-24 pts). Assessment: 14:21 General: Appears in no apparent distress. uncomfortable, Behavior is calm, cooperative. as6 Pain: Complains of pain in upper quadrants Also complains of nausea. Neuro: Level of Consciousness is awake, alert, obeys commands, Oriented to person, place, time, situation. Cardiovascular: Capillary refill < 3 seconds Patient's skin is warm and dry. Respiratory: Airway is patent Respiratory effort is even, unlabored, Respiratory pattern is regular, symmetrical. GI: Abdomen is flat, Reports upper abdominal pain, diarrhea, bloody stool, nausea. Derm: Skin is intact, Skin is pale. 15:00 Reassessment: medication and blood drawn delayed due to unable to obtain IV access. as6 17:05 Reassessment: pt c/o nausea, provider notified, new order for zofran. as6 18:38 Reassessment: Patient and/or family updated on plan of care and expected duration. Pain as6 level reassessed. Patient is alert, oriented x 3, equal unlabored respirations, skin warm/dry/pink. Vital Signs: 13:56 BP 135 / 71; Pulse 103; Resp 18; Temp 97.7; Pulse Ox 100% ; Weight 93.89 kg; Height 5 vg1 ft. 7 in. (170.18 cm); Pain 8/10; 16:30 BP 153 / 80; Pulse 88; Resp 22 S; Pulse Ox 96% on R/A; as6 18:35 BP 106 / 62; Pulse 78; Resp 20; Pulse Ox 96% on R/A; as6 19:10 BP 128 / 80; Pulse 90; Resp 18; Pulse Ox 100% on R/A; lp1 13:56 Body Mass Index 32.42 (93.89 kg, 170.18 cm) vg1 ED Course: 13:49 Patient arrived in ED. am2 13:50 Ruth Matias FNP-C is Private Physician. am2 14:02 Triage completed. vg1 14:02 Arm band placed on. vg1 14:06 Pedro Canseco, RIMA is Primary Nurse. jd3 14:07 Patient has correct armband on for positive identification. Placed in gown. Bed in low jd3 position. Call light in reach. Side rails up X 1. Adult w/ patient. stripper color on. Pulse ox on. NIBP on. 14:23 Ethan Ray MD is Attending Physician. itz 15:00 Inserted saline lock: 22 gauge in right antecubital area, using aseptic technique. as6 16:20 Inserted saline lock: 22 gauge in right upper arm, using aseptic technique. Blood as6 collected. placed by Tai billings. 17:00 XRAY Chest (1 view) In Process Unspecified. EDMS 17:10 CT Abd/Pelvis - PO and IV Contrast In Process Unspecified. EDMS 17:38 Katharina Hong MD is Referral Physician. itz 19:10 No provider procedures requiring assistance completed. IV discontinued, No lp1 redness/swelling at site. Pressure dressing applied. Administered Medications: 16:36 Drug: morphine 4 mg Route: IVP; Site: right upper arm; as6 17:30 Follow up: Response: No adverse reaction; Pain is decreased; RASS: Alert and Calm (0) as6 16:36 Drug: Zofran (Ondansetron) 4 mg Route: IVP; Site: right upper arm; as6 17:30 Follow up: Response: No adverse reaction; Nausea unchanged as6 16:36 Drug: Pepcid (famotidine) 20 mg Route: IVP; Site: right upper arm; as6 17:30 Follow up: Response: No adverse reaction as6 16:37 Drug: NS 0.9% 500 ml Route: IV; Rate: bolus; Site: right upper arm; as6 18:02 Follow up: Response: No adverse reaction; IV Status: Completed infusion; IV Intake: as6 500ml 16:59 Drug: Zofran (Ondansetron) 4 mg Route: IVP; Site: right upper arm; as6 18:04 Follow up: Response: No adverse reaction; Nausea is decreased as6 17:01 CANCELLED (Duplicate Order): NS 0.9% 500 ml IV at bolus once itz 17:53 Not Given (canled): NS 0.9% 1000 ml IV at 125 ml/hr continuous as6 18:00 Drug: Magnesium Sulfate 2 grams Route: IVPB; Infused Over: 1 hrs; Site: right upper arm;as6 19:07 Follow up: Response: No adverse reaction; IV Status: Completed infusion; IV Intake: [id number] 18:00 Drug: ProTONIX (pantoprazole) 40 mg Route: IVP; Site: right upper arm; as6 18:00 Drug: NS 0.9% 1000 ml Route: IV; Rate: 1 bolus; Site: right upper arm; as6 19:10 Follow up: IV Status: Completed infusion; IV Intake: 1000ml lp1 Intake: 18:02 IV: 500ml; Total: 500ml. as6 19:07 IV: 50ml; Total: 550ml. as6 19:10 IV: 1000ml; Total: 1550ml. lp1 Outcome: 17:38 Discharge ordered by . itz 19:15 Discharged to home ambulatory. lp1 19:15 Condition: good 19:15 Discharge instructions given to patient, Instructed on discharge instructions, follow up and referral plans. medication usage, Demonstrated understanding of instructions, follow-up care, medications, Prescriptions given X 2. 19:29 Patient left the ED. lp1 Addendum: 06/22/2021 08:56 Addendum: Culture Results: Positive urine culture. No further action required. Other: i w pt had not urinary symptoms at time of visit . Patient was not prescribed antibiotics at discharge. Report given to RONALDO for further evaluation and then to hogshead press operator for follow up with patient. Signatures: Dispatcher [employer] Ethan Dixon MD MD cha Williams, Irene, RN RN iw Leslie Almonte, RN RN lp1 Vibha Hernandez Jonathon, RN RN jd3 Martha Blas RN RN vg1 Pedro Canseco RN RN as6
[2021-06-18] MEDS ORDERED: PANTOPRAZOLE 40 MG INJ ONE (17:50)
[2021-06-18] MEDS ORDERED: Magnesium Sulfate 2gm IVPB 2 G/50 ML BAG IV ONE (17:51)
[2021-06-18 19:58] VITALS: TEMP 97.7
[2021-06-18 20:04] VITALS: BP 128/80; O2SAT 100
--- OUTSIDE RECORDS SUMMARY | 2021-06-18 23:53 | XMS REPORT | Continuity of Care Document ---
:1960 Author Organization [facility] t Address [address] [place] [address] Dr. Corona. [address] [place] [address] Care Team Providers Name Role Phone Lauren Matias Primary Care Physician Bharti REYNA Attending Clinician Unavailable Singer JOHNSON Attending Clinician Maribell LEMUS C Attending Clinician Only, Test Attending Clinician Unavailable Doctor Unassigned, Name Attending Clinician Unavailable Radiology Attending Clinician Unavailable RADIOLOGY Attending Clinician Unavailable Teto ALGERE Attending Clinician TETO Attending Clinician Unavailable Sebastián ABARCA, L Attending Clinician Unavailable Shari Kramer Attending Clinician Renée LEMUS Attending Clinician Ross LEMUS Attending Clinician Robbie CR Attending Clinician Maribel Moody MD Attending Clinician Kim LEMUS L Attending Clinician Florinda LAU Attending Clinician Unavailable Min PACHECO Attending Clinician Unavailable Esther JORDAN Attending Clinician Unavailable Bharti REYNA Admitting Clinician Unavailable Bharti Reyna MD Admitting Clinician Ross LEMUS Admitting Clinician Payers Payer Name Policy Type Policy Number Effective Date Expiration Date Min thayer [facility] [id number] 2020 [facility] 00:00:00 PPO HUMA[employer] CHOICE [id number] 2013 00:00:00 Problems Condition Condition Condition Status Onset Resolution Last Treating Co mments Source Name Details Category Date Date Treatment Clinician Date Sinus Sinus Disease Active Univers tachycardi tachycardi 6-20 it y of a a 00:00: [place] 00 Medical Branch Anemia Anemia Disease Active Univers 6-20 ity of 00:00: [place] [facility] Essential Essential Disease Active Uni vers hypertensi hypertensi 6-20 it y of on on 00:00: [place] 00 Medical Branch Type 2 Type 2 Disease Active Univers diabetes diabetes 6-20 ity of mellitus mellitus 00:00: [place] without without 00 Medical complicati complicati Br anch on, on, without without long-term long-term current current use of use of insulin insulin Colitis Colitis Disease Active Univers 6-16 ity of 00:00: [place] 00 Medical Branch Obesity Obesity Disease Active Univers (BMI (BMI 6-16 ity of 30-39.9) 30-39.9) 00:00: [place] 00 Medical [place] Allergies, Adverse Reactions, Alerts Allergy Allergy Status Severity Reaction(s) Onset Inactive Treating Comm ents Source Name Type Date Date Clinician NO KNOWN Drug Active Univers ALLERGIE Class ity of S [facility] Monistat Adverse Active vaginal [facility] 1 Reaction swelling [facility] Latex Adverse Active rash [facility] Gloves Reaction [facility] Social History Social Habit Start Date Stop Date Quantity Comments Source Exposure to Not sure [facility] SARS-CoV-2 (event) Medica l Branch Alcohol intake 2021-05-05 2021-05-05 0 /d [facility] 00:00:00 00:00:00 Medical Branch Sex Ass[birth year] At [birth year] [facility] [place] 00:00:00 00:00:00 Medical Branch Smoking Status Start Date Stop Date Source Never smoker [facility] Medical Branch Medications Ordered Filled Start Stop Current Ordering Indication Dosage Frequency Signature Comments Components Source Medication Medication Date Date Medication? Clinician (SIG) Name Name LAURA 2020-08- No 40meq 40 mEq, Univers (KLOR-CON 0-04 10-04 Oral, ity of M20) tablet 20:30: 19:23 [place] 1 [place] 40 [place]Eq 00 :00 dose, On Medical Mon Branch 05/09/21 at 1530, PRINCE iopamidol 2020-08- No [id number] 120mL 120 mL, Univers (ISOVUE 0-04 10-04 Intravenou ity o f 370-500 mL) 20:10: 20:25 s, ONCE, 1 [place] injection 00 :00 dose, On Medica l 120 mL Mon Branch 05/09/21 at 1530, Routine HYDROcodone 2020-08- No 1{tbl} 1 tablet, Univers -acetaminop 0-04 10-04 Oral, ity of hen (NORCO) 19:45: 18:46 ONCE, 1 [place] 10-325 mg 00 :00 dose, On Medica l tablet 1 [facility] Branch tablet 05/09/21 at 1445, Routine methocarbam 2020-08- Yes [id number] 500mg Take 1 Univers oL 500 mg 0-04 10-10 tablet by ity of tablet 00:00: 04:59 mouth 3 [place] 00 :00 (three) Medical times Branch daily for 5 days. simethicone Yes PRN, Univer s (GAS RELIEF 05-04 Starting ity of (SIMETHICON 17:36: on Sun s E)) 40 00 05/04/21 at Medical mg/0.6 mL 1236, Branch drops Until Discontinu ed, Routine, Intra-op simethicone 2020- No PRN, Unive rs (GAS RELIEF 05-04 Starting ity of (SIMETHICON 17:36: 23:11 on Sun as E)) 40 00 :59 05/04/21 at Medical mg/0.6 mL 1236, Branch drops Until 05/04/21 at 1811, Routine, Intra-op fluticasone Yes 1{puff} Inhale 1 Univers -vilanterol 9-29 Puff ity of (BREO 16:11: daily. [place] [address] Medical 100-25 Branch mcg/dose DsDv metFORMIN Yes 500mg Take 500 Uni vers (GLUCOPHAGE 9-29 mg by ity of ) 500 mg 16:11: mouth 2 [place] tablet 56 (two) Medical times Branch daily with meals. MULTIVITAMI Yes 1{tbl} Take 1 Tab Univers N ORAL 9-29 by mouth ity of 16:11: daily. [address] simvastatin Yes 20mg Take 20 mg Univers (ZOCOR) 20 9-29 by mouth ity o f mg tablet 16:11: at [place] [address] bedtime. Medical Branch fluticasone Yes 1{puff} Inhale 1 Univers -vilanterol 9-29 Puff ity of (BREO 16:11: daily. [address] 100-25 Branch mcg/dose DsDv metFORMIN Yes 500mg Take 500 Uni vers (GLUCOPHAGE 9-29 mg by ity of ) 500 mg 16:11: mouth 2 [place] tablet 56 (two) Medical times [place] daily with meals. MULTIVITAMI Yes 1{tbl} Take 1 Tab Univers N ORAL 9-29 by mouth ity of 16:11: daily. [address] simvastatin Yes 20mg Take 20 mg Univers (ZOCOR) 20 9-29 by mouth ity o f mg tablet 16:11: at [place] [address] bedtime. [facility] fluticasone Yes 1{puff} Inhale 1 Univers -vilanterol 9-29 Puff ity of (BREO 16:11: daily. [place] ELLIP) Medical 100-25 Branch mcg/dose DsDv metFORMIN 0 Yes 500mg Take 500 Uni vers (GLUCOPHAGE 9-29 mg by ity of ) 500 mg 16:11: mouth 2 [place] tablet 56 (two) Medical times Branch daily with meals. MULTIVITAMI 0 Yes 1{tbl} Take 1 Tab Univers N ORAL 9-29 by mouth ity of 16:11: daily. [address] simvastatin 0 Yes 20mg Take 20 mg Univers (ZOCOR) 20 9-29 by mouth ity o f mg tablet 16:11: at [place] [address] bedtime. Medical Branch fluticasone Yes 1{puff} Inhale 1 Univers -vilanterol 6-25 Puff ity of (BREO 14:53: daily. [place] ELLIPTA) 30 Medical 100-25 Branch mcg/dose DsDv metFORMIN Yes 500mg Take 500 Uni vers (GLUCOPHAGE 6-25 mg by ity of ) 500 mg 14:53: mouth 2 [place] tablet 30 (two) Medical times Branch daily with meals. MULTIVITAMI Yes 1{tbl} Take 1 Tab Univers N ORAL 6-25 by mouth ity of 14:53: daily. [place] [address] Medical Branch simvastatin Yes 20mg Take 20 mg Univers (ZOCOR) 20 6-25 by mouth ity o f mg tablet 14:53: at [place] 30 bedtime. Medical Branch fluticasone Yes 1{puff} Inhale 1 Univers -vilanterol 6-25 Puff ity of (BREO 14:53: daily. [place] ELLIP) 30 Medical 100-25 Branch mcg/dose DsDv metFORMIN Yes 500mg Take 500 Uni vers (GLUCOPHAGE 6-25 mg by ity of ) 500 mg 14:53: mouth 2 [place] tablet 30 (two) Medical times Branch daily with meals. MULTIVITAMI Yes 1{tbl} Take 1 Tab Univers N ORAL 6-25 by mouth ity of 14:53: daily. [place] [address] Medical Branch simvastatin Yes 20mg Take 20 mg Univers (ZOCOR) 20 6-25 by mouth ity o f mg tablet 14:53: at [place] 30 bedtime. Medical Branch dicyclomine Yes [id number] 10mg Take 1 Univers 10 mg 6-25 capsule by ity of capsule 00:00: mouth 3 [place] 00 (three) Medical times Branch daily as needed for Abdominal pain. loperamide Yes [id number] 2mg Take 1 U nivers 2 mg 6-25 capsule by ity of capsule 00:00: mouth [place] 00 every 4 Medical (four) Branch hours as needed for Diarrhea. dicyclomine Yes [id number] 10mg Take 1 Univers 10 mg 6-25 capsule by ity of capsule 00:00: mouth 3 (three) Medical times Branch daily as needed for Abdominal pain. loperamide 2020-0 Yes [id number] 2mg Take 1 U nivers 2 mg 6-25 capsule by ity of capsule 00:00: mouth [place] 00 every 4 Medical (four) Branch hours as needed for Diarrhea. dicyclomine 2020-0 Yes [id number] 10mg Take 1 Univers 10 mg 6-25 capsule by ity of capsule 00:00: mouth 3 (three) Medical times Branch daily as needed for Abdominal pain. loperamide 2020-0 Yes [id number] 2mg Take 1 U nivers 2 mg 6-25 capsule by ity of capsule 00:00: mouth 00 every 4 Medical (four) Branch hours as needed for Diarrhea. dicyclomine 2020-0 Yes [id number] 10mg Take 1 Univers 10 mg 6-25 capsule by ity of capsule 00:00: mouth 3 (three) Medical times Branch daily as needed for Abdominal pain. loperamide 2020-0 Yes [id number] 2mg Take 1 U nivers 2 mg 6-25 capsule by ity of capsule 00:00: mouth 00 every 4 Medical (four) Branch hours as needed for Diarrhea. dicyclomine 2020-0 Yes [id number] 10mg Take 1 Univers 10 mg 6-25 capsule by ity of capsule 00:00: mouth (three) Medical times Branch daily as needed for Abdominal pain. loperamide 2020-0 Yes [id number] 2mg Take 1 U nivers 2 mg 6-25 capsule by ity of capsule 00:00: mouth every 4 Medical (four) Branch hours as needed for Diarrhea. tiZANidine 2020-0 Yes TAKE 1 Unive rs 2 mg tablet 1-07 TABLET BY ity of 00:00: MOUTH 00 TWICE Medical DAILY Branch DIRECTED tiZANidine 2020-0 Yes TAKE 1 Unive rs 2 mg tablet 1-07 TABLET BY ity of 00:00: MOUTH [place] 00 TWICE Medical DAILY Branch DIRECTED tiZANidine 2020-0 Yes TAKE 1 Unive rs 2 mg tablet 1-07 TABLET BY ity of 00:00: MOUTH 00 TWICE Medical DAILY Branch DIRECTED tiZANidine 2020-0 Yes TAKE 1 Unive rs 2 mg tablet 1-07 TABLET BY ity of 00:00: MOUTH 00 TWICE Medical DAILY Branch DIRECTED tiZANidine Yes TAKE 1 Unive rs 2 mg tablet 1-07 TABLET BY ity of 00:00: MOUTH TWICE Medical DAILY Branch DIRECTED Levothyroxi Levothyroxi Yes Ruth [address] [facility] ne Sodium ne Sodium 4-07 [place] in the Miesha kes - 00:00: morning on Memoria 00 an empty l stomach Outpati ent Clinics Levothyroxi Levothyroxi Yes Ruth [address] [facility] ne Sodium ne Sodium [place] in the [place]iesha kes - morning on Memoria an empty l stomach Outpati to [facility] ent 225mcg Clinics daily Gabapentin Gabapentin Yes Ruth TK [address] [place] CAPSULES [facility] - PO QID PRN Memoria l Outpati ent Clinics Ondansetron Ondansetron Yes Ruth TK [address] [facility] HCl HCl [place] QD FOR 10 [facility] - DAYS PRN Memoria l Outpati ent Clinics Duloxetine Duloxetine Yes Ruth not [facility] HCl HCl [place] defined [facility] Breo Breo Yes Ruth [address] [facility] Ellipta Ellipta [place] [facility] Topiramate Topiramate Yes Ruth [address] [facility] [place] [facility] Albuterol Albuterol Yes Ruth 3 ml as C [facility] Sulfate Sulfate [place] needed [facility] Trazodone Trazodone Yes Ruth TK [address] [facility] HCl HCl [place] TS PO HS [facility] - PRF Memoria INSOMNIA l Outpati ent Clinics Tizanidine Tizanidine Yes Ruth [address] [facility] [address] HCl HCl [place] as needed [facility] Norvasc Norvasc Yes Ruth [address] [facility] [place] [facility] Estradiol Estradiol Yes Ruth as [facility] [place] directed [facility] Sucralfate Sucralfate Yes Ruth [address] [facility] [place] on an [facility] - empty Memoria stomach l Outpati ent Clinics Nystatin Nystatin Yes Ruth [address] [facility] [place] applicatio [facility] n [facility]ics Albuterol Albuterol Yes Ruth INL [address] Sulfate HFA Sulfate HFA [place] PO Q 6 H [facility] - PRN Memoria l [facility] ent Clinics Meloxicam Meloxicam Yes Ruth TK [address] [facility] [place] QD [facility] Clinics Loratadine Loratadine Yes Ruth TK [address] [facility] [place] QD FOR [facility] - ALLERGIES Memoria l [facility] ent Clinics Simvastatin Simvastatin Yes Ruth [address] [facility] [place] in the [facility]ukes - evening Memoria l [facility] ent Clinics Pantoprazol Pantoprazol Yes Ruth [address] [facility] [facility] e Sodium e Sodium [place] [facility]ics Lorazepam Lorazepam Yes Ruth [address] [facility] [place] at bedtime [facility]ukes - as needed [facility] l [facility] ent Clinics Metformin Metformin Yes Ruth TAKE [address] HCl HCl [place] TABLET BY [facility] - MOUTH Memoria TWICE l DAILY WITH [facility] Clinics Divalproex Divalproex Yes Ruth [address] [address] Sodium ER Sodium ER [place] - Memoria l [facility] ent Clinics Quetiapine Quetiapine Yes Ruth [address] Fumarate Fumarate [place] at bedtime [facility] - [facility] l [facility] ent Clinics Tramadol Tramadol Yes Ruth [address] HCl HCl [place] as needed [facility] l [facility] ent Clinics Botox Botox Yes Ruth as [facility] [place] directed kes - Memoria l [facility] ent Clinics [facility] Yes Ruth [address] [facility] [place] [facility] l [facility] ent Clinics Divalproex Divalproex Yes Ruth [address] Sodium ER Sodium ER [place] [facility] Simvastatin Simvastatin Yes Ruth TAKE [address] [facility] [place] TABLET BY [facility]ukes - MOUTH Memoria EVERY DAY l IN THE [facility] EVENING ent Clinics Losartan Losartan Yes Ruth [address] Potassium Potassium [place] - Memoria l [facility] ent Clinics Oxybutynin Oxybutynin Ruth [address] [facility] [facility] Chloride Chloride 10-31 [place] [facility] - 00:00 Memoria :00 [facility] ent Clinics Immunizations Ordered Filled Immunization Date Status Comments [facility] e Immunization Name Name Pneumovax Pneumovax 2019-06-[address] [facility] - 00:00[facility]00 [facility] Flucelvax - single Flucelvax - single 2019-05-[address] [facility] - dose syringe dose syringe 00:00:00 [facility] Prevnar 13 Prevnar 13 2018-05-[address] [facility] - -Pneumonia Vaccine -Pneumonia Vaccine 00:00:00 [facility] Vital Signs Vital Name Observation Time Observation Value Comments Source Systolic blood 2021-05-09 22:00:00 165 mm[Hg] Univer sity of pressure [facility] Diastolic blood 2021-05-09 22:00:00 84 mm[Hg] Unive rsity of pressure [facility] Heart rate 2021-05-09 22:00:00 87 /min Universi ty of [facility] Body temperature 2021-05-09 22:00:00 36.89 Natalia [facility] ersity of [facility] Respiratory rate 2021-05-09 22:00:00 20 /min Univ ersity of [facility] Oxygen saturation in 2021-05-09 22:00:00 98 /min University of Arterial blood by [place] [facility] Pulse oximetry Branch Body weight 2021-05-09 15:55:00 105.235 kg Universi ty of [facility] BMI 2021-05-09 15:55:00 37.46 kg/m2 Universi ty of [facility] Systolic blood 2021-05-04 19:25:00 150 mm[Hg] Univer sity of pressure [facility] Diastolic blood 2021-05-04 19:25:00 72 mm[Hg] Unive rsity of [facility] Respiratory rate 2021-05-04 19:15:00 20 /min Univ ersity of [facility] Heart rate 2021-05-04 19:10:00 87 /min Universi ty of [facility] Branch Oxygen saturation in 2021-05-04 19:10:00 100 /min University of Arterial blood by [place] [facility] Pulse oximetry Branch Body temperature 2021-05-04 18:55:00 35.83 Natalia Univ ersity of [facility] Branch Body height 2021-04-21 15:43:00 167.6 cm Universi ty of [place] Medical [place] Body weight 2021-04-21 15:43:00 105.6 kg Universi ty of [place] [facility] BMI 2021-04-21 15:43:00 37.59 kg/m2 [facility] Systolic blood 2021-05-04 18:55:00 140 mm[Hg] Univer sity of pressure [facility] Diastolic blood 2021-05-04 18:55:00 84 mm[Hg] Unive rsity of pressure [facility] Heart rate 2021-05-04 18:55:00 90 /min [facility] Body temperature 2021-05-04 18:55:00 35.83 Natalia [facility] rate 2021-05-04 18:55:00 25 /min [facility] Oxygen saturation in 2021-05-04 18:55:00 94 /min [facility] Arterial blood by [facility] Pulse oximetry [place] Body height 2021-04-21 15:43:00 167.6 cm [facility] Body weight 2021-04-21 15:43:00 105.6 kg [facility] BMI 2021-04-21 15:43:00 37.59 kg/m2 [facility] Procedures Procedure Date / Time Performing Source Performed Clinician CT ABDOMEN PELVIS W CONTRAST 2021-05-09 Lavell De Leon [facility] versity of 20:15:19 [facility] URINALYSIS 2021-05-09 Lavell De Leon [place] of 18:58:00 [facility] COMP. METABOLIC PANEL ([id number]) 2021-05-09 Lavell De Leon iversity of 18:35:00 [facility] CBC WITH DIFF 2021-05-09 Lavell De Leon of 18:35:00 [facility] XR CHEST 2 VW 2021-05-09 Lavell De Leon [place] of 16:47:42 [facility] XR LUMBAR SPINE 3 VW 2021-05-09 Lavell De Leon [place] of 16:47:42 [facility] ESOPHAGOGASTRODUODENOSCOPY 2021-05-04 Bhaskar Reyna niversity of 18:21:00 C [facility] EGD (ENDO) 2021-05-04 [place] [facility] of 17:46:29 [facility] EGD (ENDO) 2021-05-04 [place] [facility] of 17:46:29 [place] [facility] ASSIGNMENT OF BENEFITS 2021-05-03 Doctor Unassigned, Univer sity of 13:07:28 [place] [facility] EXTERNAL PROVIDER RECORDS 2021-04-20 Doctor Unassigned, Uni versity of 05:01:00 [place] [facility] EXTERNAL PROVIDER RECORDS 2021-04-20 Doctor Unassigned, Uni versity of 05:01:00 [place] [facility] Encounters Start End Encounter Admission Attending Care Care Encounter Source Date/Time Date/Time Type Type Clinicians Facility Department ID 2021-06-07 Emergency [facility] [id number] Univers 03:36:58 ity of [facility] 2021-06-07 Outpatient R [facility] NING [id number] Univers 00:03:36 EBHASKAR ity of [facility] 2021-06-06 Emergency [facility] [id number] Univers 01:28:49 ity of [facility] 2021-06-04 Emergency [facility] [id number] Univers 13:53:54 ity of [facility] 2021-06-04 Outpatient R [facility] [place] [id number] Univers 00:26:15 EDEXTERReena ity of [facility] 2021-06-02 2021-06-02 Outpatient [facility] [id number] [facility] 2021-05-18 2021-05-18 Outpatient [facility]LMLC [facility] [id number] [facility] 2021-05-09 2021-05-09 Emergency [facility] [id number] Univers 10:58:00 17:26:00 Lavell Thomason [id number] i ty [facility] [id number] [facility] [id number] [place] [address] Branch 2021-05-04 2021-05-04 [facility] [id number] Univers 11:54:00 14:35:00 Encounter eBhaskar [id number] ity of [place] [id number] [place] [id number] [facility] 071 Branch 2021-05-04 2021-05-04 Surgery Charafeddin [facility] [id number] Univers 13:25:00 13:57:00 Bhaskar pittman [id number] ity of [place] [id number] [id number] [facility] 020 Branch 2021-05-03 2021-05-03 Laboratory Only, Adc Test [facility] 1.2.840. [id number] Univers 08:07:19 08:22:19 Only Bhaskar Reyna 350.1.1 3.10 ity of [place] [id number] [place] [id number] [facility] 353 Branch 2021-05-03 2021-05-03 Outpatient R [facility] [id number] Univers 07:45:00 07:45:00 [id number] ity of [facility] 2021-05-03 2021-05-03 [facility] [id number] Univers 07:45:00 07:45:00 BHASKAR [place] o f [facility] 2021-05-03 2021-05-03 Orders Doctor ABISAI [id number] Univers 00:00:00 00:00:00 Only Unassigned, BAR [id number] ity of [place] [facility] [id number] [place] as [id number] [facility] 009 Branch 2021-04-20 2021-04-20 Outpatient STLMLC [facility] [id number] [facility]00 Sintia Dejesus ent Clinics 2021-03-10 2021-03-10 [facility] Radiology [facility] [id number] 10:47:03 23:59:00 Encounter Katelin [id number] [place] [id number] [place] [id number] 2021-03-10 2021-03-10 Hospital Radiology [facility] [id number] 10:45:00 10:46:00 Encounter [place] [id number] [place] [id number] [place] [id number] 2021-03-10 2021-03-10 Outpatient R RADIOLOGY [facility] [id number] Univers 10:45:00 10:45:00 [id number] [facility] 2021-03-10 2021-03-10 Outpatient R RADIOLOGY [facility] [id number] Univers 00:00:00 00:00:00 [facility] 2021-03-08 2021-03-08 [facility] 1.2.840.114 [id number] 20:00:13 20:20:13 Care [facility] [id number] [place] [id number] Professio [id number] nal [address] 2021-03-08 2021-03-08 Outpatient R [facility] [id number] Univers 20:00:00 20:00:00 [id number] [facility] 2021-03-08 2021-03-08 Outpatient R GREEN, [facility] [id number] Univers 20:00:00 20:00:00 [facility] 2021-02-24 2021-02-24 Outpatient [facility] [id number] [facility] 2021-02-19 2021-02-19 Outpatient [facility] [id number] [facility] 2021-02-18 2021-02-18 Outpatient [facility]LMLC [facility] [id number] [facility] 2021-02-16 2021-02-16 Outpatient STLMLC [facility] [id number] [facility] 2021-01-31 2021-01-31 Transition Dave Lowery 1.2.840.114 [id number] 00:00:00 00:00:00 of Care Karen Lopez [id number] [place] [id number] [id number] 2021-01-18 2021-01-28 [facility] Jona Davila [facility] 1.2.840.1 [id number] 21:13:00 14:30:00 Encounter RenéeRileyandre Thomason [id number] Gomez [place] [id number] [place] [id number] 081 2021-01-25 2021-01-25 Anesthesia NiaTai pittman [facility] 1.2.840.11 [id number] 08:49:00 09:30:00 Event Randell López [place] [id number] [place] [id number] Surgical [id number] [place] 020 2021-01-25 2021-01-25 Surgery [facility] 1.2.840.114 [id number] 08:33:00 09:08:00 [place] [id number] [place] [id number] Surgical [id number] [place] 020 2021-01-19 2021-01-19 Outpatient [facility] [id number] [facility] 2020-12-31 2020-12-31 Outpatient [facility] [id number] [facility] 2020-12-30 2020-12-30 [facility] [id number] 2020-12-20 2020-12-20 [facility] [id number] [facility] 2020-12-08 2020-12-08 [facility] 1.2.840.114 [id number] 00:00:00 00:00:00 [facility] [id number] Surgical [id number] Specialti [id number] es 198 [place] 2020-12-07 2020-12-07 Orders Doctor ABISAI 1.2.840.114 [id number] 00:00:00 00:00:00 Only Unassigned, BAR [id number] [place] [facility] [id number] [id number] 2020-12-06 2020-12-06 Office [facility] [id number] 15:09:54 15:49:09 Visit Nichole Neely [facility] [id number] Surgical [id number] Specialti [id number] es 198 [place] 2020-12-06 2020-12-06 Outpatient [facility] [id number] Univers 15:00:00 15:00:00 NICHOLE [id number] [facility] 2020-12-06 2020-12-06 Outpatient Reena [facility] [id number] [facility] 15:00:00 15:00:00 NICHOLE [facility] 2020-11-26 2020-11-26 [facility] [id number] Univers 09:30:00 09:30:00 [facility] 2020-11-24 2020-11-24 [facility] [id number] Univers 09:30:00 09:30:00 KUSUM [facility] 2020-11-16 2020-11-16 Outpatient [facility] [id number] [facility] 2020-11-11 2020-11-11 [facility] [id number] Univers 11:15:00 11:15:00 KUSUM [id number] [facility] 2020-11-11 2020-11-11 [facility] [id number] Univers 11:15:00 11:15:00 KUSUM [facility] 2020-11-09 2020-11-09 Outpatient Reena PACHECO [facility] [id number] Univers 13:45:00 13:45:00 KUSUM [id number] [facility] 2020-11-09 2020-11-09 Outpatient Reena PACHECO [facility] [id number] Univers 13:45:00 13:45:00 KUSUM [facility] 2020-11-09 2020-11-09 Outpatient Reena LAU [facility] [id number] [facility] 00:00:00 00:00:00 NICHOLE [facility] 2020-11-08 2020-11-08 Outpatient Reena LAU [facility] [id number] Univers 15:30:00 15:30:00 NICHOLE [id number] [facility] 2020-11-08 2020-11-08 Outpatient Reena LAU [facility] [id number] [facility] 00:00:00 00:00:00 NICHOLE [facility] 2020-11-03 2020-11-03 Outpatient [facility] [id number] [facility] 2020-10-25 2020-10-25 Outpatient [facility] [id number] [facility] 2020-10-22 2020-10-22 Outpatient [facility] [id number] [facility] 2020-10-20 2020-10-20 Outpatient [facility] [id number] [facility] 2020-10-12 2020-10-12 Outpatient [facility] [id number] [facility] 2020-09-15 2020-09-15 Outpatient [facility] [id number] [facility] 2020-09-10 2020-09-10 Outpatient [facility] [id number] Univers 19:40:00 19:40:00 [id number] [facility] 2020-09-10 Outpatient R NIKKI [facility] [id number] Univers 19:40:00 19:40:00 AMANDA ana [facility] 2020-07-12 2020-07-12 Outpatient [facility]MLC [facility] [id number] [facility] 2020-06-11 2020-06-11 Outpatient [facility] [id number] [facility] 2020-06-01 2020-06-01 Outpatient R [facility] [id number] Univers 11:45:00 11:45:00 [id number] [facility] 2020-06-01 2020-06-01 Outpatient R MINH [facility] [id number] Univers 11:45:00 11:45:00 BHASKAR Pittman [facility] 2020-05-26 2020-05-26 Outpatient [facility]LMLC [facility] [id number] [facility] 2020-05-11 2020-05-11 Outpatient [facility]MLC [facility] [id number] [facility] 2020-04-16 2020-04-16 [facility] [id number] [facility] 15:00:00 15:00:00 t [facility] l Medicine Outpati ent Clinics 2020-04-16 2020-04-16 Outpatient [facility]MLC [facility] [id number] [facility] 2020-04-13 2020-04-13 [facility] [id number] [facility] 08[facility]51:00 08:51:00 t [facility] l Medicine Outpati ent Clinics 2020-02-27 2020-02-27 [facility] [id number] [facility] 14:00:00 14:00:00 t [employer] [place] [facility] Medicine Outpati ent Clinics 2020-02-23 2020-02-23 [facility] [id number] 13:12:00 13:12:00 [facility] Medicine Outpati ent Clinics 2020-02-18 2020-02-18 [facility] [id number] [facility] 09:08:00 09:08:00 [facility] Medicine Outpati ent Clinics 2020-02-16 2020-02-16 [facility] [id number] 18:34:00 18:34:00 [facility] Medicine Outpati ent Clinics 2020-02-11 2020-02-11 [facility] [id number] [facility] 13:20:00 13:20:00 [facility] Medicine Outpati ent Clinics 2020-01-06 2020-01-06 [facility] [id number] 18[facility]46:00 18:46:00 [facility] Medicine Outpati ent Clinics 2019-12-22 2019-12-22 [facility] [id number] [facility] 14:00:00 14:00:00 [facility] Clinics 2019-12-05 2019-12-05 [facility] [id number] 10:40:00 10:40:00 [facility] Medicine Outpati ent Clinics 2019-11-28 2019-11-28 [facility] [id number] 11:00:00 11:00:00 [facility] Medicine Outpati ent Clinics 2019-11-10 2019-11-10 [facility] [id number] [facility] 15[facility]55:00 15:55:00 [facility] Medicine Outpati ent Clinics 2019-11-05 2019-11-05 [facility] [id number] [facility] 18:33:00 18:33:00 t [facility] Medicine Medicine Outpati ent Clinics 2019-10-28 2019-10-28 [facility] [id number] 11:08:00 11:08:00 t [facility] Medicine l Medicine Outpati ent Clinics 2019-10-27 2019-10-27 [facility] [id number] 14:31:00 14:31:00 t [facility] Medicine l Medicine Outpati ent Clinics 2019-10-13 2019-10-13 [facility] [id number] 09:00:00 09:00:00 t [facility] Medicine Medicine Outpati ent Clinics 2019-09-29 2019-09-29 [facility] [id number] [facility] 11:30:00 11:30:00 t [facility] Medicine Medicine Outpati ent Clinics 2019-09-18 2019-09-18 [facility] [id number] [facility] 14:40:00 14:40:00 t [facility] Medicine Medicine Outpati ent Clinics 2019-08-14 2019-08-14 [facility] [id number] 14:18:00 14:18:00 t [facility] Medicine Medicine Outpati ent Clinics 2019-08-13 2019-08-13 [facility] [id number] [facility] 11:00:00 11:00:00 t [facility] Medicine l Medicine Outpati ent Clinics 2019-07-18 2019-07-18 [facility] [id number] [facility] 09:00:00 09:00:00 [facility] Medicine l Medicine Outpati ent Clinics 2019-06-23 2019-06-23 [facility] [id number] [facility] 10:40:00 10:40:00 t [facility] Medicine Medicine Outpati ent Clinics 2019-06-09 2019-06-09 [facility] [id number] [facility] 12:17:00 12:17:00 t [facility] ent Clinics 2019-06-09 2019-06-09 [facility] [id number] [facility] 08:20:00 08:20:00 t [facility] Outpati ent Clinics 2019-05-30 2019-05-30 [facility] [id number] [facility] 08:00:00 08:00:00 [facility] 2019-04-03 2019-04-03 [facility] [id number] [facility] 09:00:00 09:00:00 [facility] ent Clinics 2019-03-24 2019-03-24 [facility] [id number] [facility] 10:15:00 10:15:00 t Specialty/U Miesha kes - Specialty rology [facility] 2019-03-04 2019-03-04 [facility] [id number] 11:00:00 11:00:00 t Specialty/U Miesha kes - Specialty rology [facility] 2019-02-21 2019-02-21 [facility] [id number] 13:45:00 13:45:00 t Specialty/U Miesha kes - Specialty rology Memori a /Urology Clinic l Clinic [facility] ent Clinics 2019-02-18 2019-02-18 [facility] [id number] 15:42:00 15:42:00 t [facility] ent Clinics 2019-02-11 2019-02-11 [facility] [id number] [facility] 13:20:00 13:20:00 t [facility] Outpati ent Clinics 2018-11-11 2018-11-11 [facility] [id number] [facility] 09:20:00 09:20:00 [facility] ent Clinics 2018-10-01 2018-10-01 [facility] [id number] [facility] 15:30:00 15:30:00 [facility] ent Clinics 2018-09-06 2018-09-06 [facility] [id number] 10:00:00 10:00:00 [facility] 2018-05-21 2018-05-21 [facility] [id number] 08:37:00 08:37:00 [facility] ent [facility] 2018-05-09 2018-05-09 [facility] [id number] 08:30:00 08:30:00 [facility] Results Test Description Test Time Test Comments Results Result Comments Source COMP. METABOLIC PANEL (17907) 2021-05-09 19:18:28 Test Item Value Reference Range Interpretation Comme nts NA (test code = 6537779580) 138 mmol/L 135-145 K (test code = 2662562483) 2.9 mmol/L 3.5-5.0 LL CL (test code = 4784309303) 104 mmol/L 98-108 CO2 TOTAL (test code = 6541596016) 25 mmol/L 23-31 AGAP (test code = 4626050123) 2-16 BUN (test code = 9053510141) 8 mg/dL 7-23 GLUCOSE (test code = 8494056446) 134 mg/dL 70-110 H CREATININE (test code = 0.77 mg/dL 0.50-1.04 1928620637) TOTAL BILI (test code = 0.4 mg/dL 0.1-1.1 9809176769) CALCIUM (test code = 9363134886) 9.6 mg/dL 8.6-10.6 T PROTEIN (test code = 0674309514) 7.3 g/dL 6.3-8.2 ALBUMIN (test code = 7033352702) 4.4 g/dL 3.5-5.0 ALK PHOS (test code = 0762131257) 63 U/L 34-122 ALTv (test code = 1742-6) 27 U/L 5-35 AST(SGOT) (test code = 4972395102) 27 U/L 13-40 eGFR (test code = 8152244608) mL/min/1.73m2 RAOUL (test code = RAOUL) Association of Glomerular Filtration Rate (GFR) and Staging of Kidney Disease* + +------- + --------+| GFR (mL/min/1.73 m2) ?| With Kidney Damage ?| ?Without Kidney Damage+ +- + +| ?>90 ?| ?Stage one ?| ? Normal ?+ +------ + ---------+| ?60-89 ?| ?Stage two ?| ? Decreased GFR ? + +------- + --------+| ?30-59 ?| ?Stage three ?| ? Stage three ? + +------- + --------+| ?15-29 ?| ?Stage four ? | ? Stage four ?+ +------ + ---------+| ?<15 (or dialysis) ? ?| ?Stage five ? | ? Stage five ?+ +------ + ---------+ *Each stage assumes the associated GFR level has been in effect for at least three months. ?Stages 1 to 5, with or without kidney disease, indicate chronic kidney disease. Notes: Determination of stages one and two (with eGFR >59mL/min/1.73 m2) requires estimation of kidney damage for at least three months as defined by structural or functional abnormalities of the kidney, manifested by either:Pathological abnormalities or Markers of kidney damage (including abnormalities in the composition of the blood or urine or abnormalities in imaging tests). Lab Interpretation (test code = Abnormal 33569-9) [facility] WITH [id number] 18:53:37 Test Item Value Reference Range Interpretation Comments WBC (test code = See_Comment [Automated 6690-2) message] The sy stem which generated this result transmitted reference range : 4.30 - 11.10 10*3/?L. The reference range was not used to interpret this result as normal/abnormal . RBC (test code = See_Comment L [Automated 789-8) message] The sy stem which generated this result transmitted reference range : 3.93 - 5.25 10*6/?L. The reference range was not used to interpret this result as normal/abnormal . HGB (test code = 10.8 g/dL 11.6-15.0 L 718-7) HCT (test code = 31.9 % 35.7-45.2 L 4544-3) MCV (test code = 96.7 fL 80.6-95.5 H 787-2) MCH (test code = 32.7 pg 25.9-32.8 785-6) MCHC (test code = 33.9 g/dL 31.6-35.1 786-4) RDW-SD (test code = 48.9 fL 39.0-49.9 51248-4) RDW-CV (test code = 13.9 % 12.0-15.5 788-0) PLT (test code = See_Comment [Automated 777-3) message] The sy stem which generated this result transmitted reference range : 166 - 358 10*3/ ?L. The reference r stephanie was not used to interpret this result as normal/abnormal . MPV (test code = 10.3 fL 9.5-12.9 51416-0) NRBC/100 WBC (test See_Comment [Automat ed code = 5257736497) message] The system which generated this result transmitted reference range : 0.0 - 10.0 /100 WBCs. The refer ence range was not u sed to interpret th is result as normal/abnormal . NRBC x10^3 (test code <0.01 See_Comment [Auto mated = 4523943921) message] The s ystem which generated this result transmitted reference range : 10*3/?L. The reference range was not used to interpret this result as normal/abnormal . GRAN MAT (NEUT) % 58.2 % (test code = 770-8) IMM GRAN % (test code 0.40 % = 2746966359) LYMPH % (test code = 29.6 % 736-9) MONO % (test code = 10.3 % 5905-5) EOS % (test code = 1.1 % 713-8) BASO % (test code = 0.4 % 706-2) GRAN MAT x10^3(ANC) 3.21 10*3/uL 1.88-7.09 (test code = 8854538562) IMM GRAN x10^3 (test <0.03 0.00-0.06 code = 8797981815) LYMPH x10^3 (test code 1.63 10*3/uL 1.32-3.29 = 731-0) MONO x10^3 (test code 0.57 10*3/uL 0.33-0.92 = 742-7) EOS x10^3 (test code = 0.06 10*3/uL 0.03-0.39 711-2) BASO x10^3 (test code <0.03 0.01-0.07 = 704-7) Lab Interpretation Abnormal (test code = 49799-8) [facility]"
== END 2021-06-18 19:29 | disposition home or self-care (01) ==
LOC: ER 13:46
DX: D64.9 Anemia, unspecified (principal); E83.42 Hypomagnesemia; F41.9 Anxiety disorder, unspecified; I10 Essential (primary) hypertension; E11.9 Type 2 diabetes mellitus without complications; Z86.73 Personal history of transient ischemic attack (TIA), and cerebral infarction without residual deficits
CPT/HCPCS: 96365; 96361; 93005; 87088; 85025; 87086; 80048; 36415; 86900; 83735; 86850; 85610; 86901; 80076; 87077; 87186; 81003; 84484; 83690; 83880; 74177; 71045; 96375; 99284; Q9967; C9113; J3475; J7040; J7030; J2405 ×2

== ENCOUNTER 2021-10-08 15:44 | Emergency (ER) | payer OTHER ==
--- OUTSIDE RECORDS SUMMARY | 2021-10-08 15:48 | XMS REPORT | Continuity of Care Document ---
:1960 Author Organization [facility] t Address [address] [place] [address] Care Team Providers Name Role Phone KYLER VILLARREAL Primary Care Physician Unavailable Kong Attending Clinician Unavailable Florencio Attending Clinician Unavailable Estefany Attending Clinician Unavailable Bharti REYNA Attending Clinician Unavailable Min HEWITT Attending Clinician Unavailable Singer JOHNSON Attending Clinician Marcelina DAY S Attending Clinician Bharti Reyna MD Attending Clinician Only, Test Attending Clinician Unavailable Doctor Unassigned, Name Attending Clinician Unavailable Radiology Attending Clinician Unavailable RADIOLOGY Attending Clinician Unavailable Teto CORRECTION OFFICER HEAD Attending Clinician GREEN Attending Clinician Unavailable Sebastián ABARCA, L Attending Clinician Unavailable Shari Kramer Attending Clinician Renée LEMUS Attending Clinician Ross LEMSU Attending Clinician Robbie CR Attending Clinician Maribel Moody MD Attending Clinician Florinda Lau MD Attending Clinician Florinda LAU Attending Clinician Unavailable Min PACHECO Attending Clinician Unavailable Esther JORDAN Attending Clinician Unavailable Bharti REYNA Admitting Clinician Unavailable Admitting Clinician Unavailable Bharti Reyna MD Admitting Clinician Ross LEMUS Admitting Clinician Payers Payer Name Policy Type Policy Number Effective Date Expiration Date Min thayer [facility] [id number] [address] [facility] 00:00:00 PPO HUMANA CHOICE [id number] 2013 00:00:00 Problems Condition Condition Condition Status Onset Resolution Last Treating Co mments Source Name Details Category Date Date Treatment Clinician Date Sinus Sinus Disease Active Univers tachycardi tachycardi 6-20 it y of a a 00:00: [place] [facility] Anemia Anemia Disease Active Univers 6-20 ity of 00:00: [place] [facility] Essential Essential Disease Active Uni vers hypertensi hypertensi 6-20 it y of on on 00:00: [place] [facility] Branch Type 2 Type 2 Disease Active Univers diabetes diabetes 6-20 ity of mellitus mellitus 00:00: [place] without without 00 Medical complicati complicati Br anch on, on, without without long-term long-term current current use of use of insulin insulin Colitis Colitis Disease Active Univers 6-16 ity of 00:00: [place] [facility] Branch Obesity Obesity Disease Active Univers (BMI (BMI 6-16 ity of 30-39.9) 30-39.9) 00:00: [place] [facility] Branch Allergies, Adverse Reactions, Alerts Allergy Allergy Status Severity Reaction(s) Onset Inactive Treating Comm ents Source Name Type Date Date Clinician NO KNOWN Drug Active Univers ALLERGIE Class ity of S [facility] Monistat Adverse Active vaginal [facility] 1 Reaction swelling [facility] Latex Adverse Active rash [facility] Gloves Reaction [facility] Social History Social Habit Start Date Stop Date Quantity Comments Source Exposure to Not sure [facility] SARS-CoV-2 (event) Medica l Branch Alcohol intake 2021-08-02 2021-08-02 0 /d [facility] 00:00:00 00:00:00 [facility] Branch Sex Ass[birth year] At [birth year] [facility] [place] 00:00:00 00:00:00 Medical Branch Smoking Status Start Date Stop Date Source Never smoker [facility] Branch Medications Ordered Filled Start Stop Current Ordering Indication Dosage Frequency Signature Comments Components Source Medication Medication Date Date Medication? Clinician (SIG) Name Name acetaminoph 2020-08- No 1{tbl} 1 tablet, Univers en-codeine 10-03 Oral, ity of (TYLENOL 23:00: 22:01 ONCE, 1 [place] #3) 300-30 00 :00 dose, On Medic al mg tablet 1 Tue Branch tablet 08/02/21 at 1700, [place] acetaminoph 2020-08 Yes acetaminop Univers en-codeine 10-03 hen 300 ity of 300-30 mg 18:05: mg-codeine [facility] tablet 42 30 mg Medical tablet Branch TAKE 1 TABLET BY MOUTH TWICE DAILY NEEDED traZODone 2020-08 Yes trazodone Uni vers 150 mg 10-03 150 mg ity of tablet 18:05: tablet [place] [address] TAKE 1 TO Medical 2 TABLETS Branch BY MOUTH EVERY NIGHT AT BEDTIME NEEDED FOR INSOMNIA traMADoL 50 2020-08 Yes tramadol Un yan mg tablet 10-03 50 mg ity of 18:05: tablet [place] 42 TAKE 1 Medical TABLET BY Branch MOUTH THREE TIMES DAILY sucralfate 2020-08 Yes sucralfate U nivers 1 gram 10-03 1 gram ity of tablet 18:05: tablet [place] 42 TAKE 1 Medical TABLET BY Branch MOUTH BEFORE MEALS AND AT BEDTIME spironolact 2020-08 Yes spironolac Univers one 25 mg 10-03 tone 25 mg ity of tablet 18:05: tablet [place] 42 TAKE 1 Medical TABLET BY Branch MOUTH EVERY DAY SITagliptin 2020-08 Yes Januvia Uni vers (JANUVIA) 10-03 100 mg ity of 100 mg 18:05: tablet [place] tablet 42 TAKE 1 Medical TABLET BY Branch MOUTH EVERY DAY FOR 16 DAYS QUEtiapine 2020-08 Yes quetiapine U nivers 300 mg 10-03 300 mg ity of tablet 18:05: tablet [place] 42 TAKE 1 Medical TABLET BY Branch MOUTH EVERY EVENING 1 TO 1.5 HOUR PRIOR TO BEDTIME WITH 300 CALORIES SNACK QUEtiapine 2020-08 Yes quetiapine U nivers 200 mg - 200 mg ity of tablet 18:05: tablet [place] 42 TAKE 1 Medical TABLET BY Branch MOUTH TWICE DAILY pantoprazol 2020-08 Yes pantoprazo Univers e 40 mg EC 10-03 le 40 mg ity o f tablet 18:05: tablet,low [place] [address] ayed Medical release [place] TAKE 1 TABLET BY MOUTH EVERY DAY montelukast 2020-08 Yes montelukas Univers 10 mg - t 10 mg ity of tablet 18:05: tablet [place] 42 TAKE 1 Medical TABLET BY Branch MOUTH EVERY DAY IN THE EVENING methocarbam 2020-08 Yes methocarba Univers oL 500 mg 10-03 mol 500 mg ity of tablet 18:05: tablet [place] 42 TAKE 1 Medical TABLET BY Branch MOUTH THREE TIMES DAILY FOR 5 DAYS meloxicam 2020-08 Yes meloxicam Uni vers 15 mg - 15 mg ity of tablet 18:05: tablet [place] 42 TAKE 1 Medical TABLET BY Branch MOUTH EVERY DAY losartan 50 2020-08 Yes losartan Un yan mg tablet 10-03 50 mg ity of 18:05: tablet [place] 42 TAKE 1 Medical TABLET BY Branch MOUTH TWICE DAILY levothyroxi 2020-08 Yes levothyrox Univers ne 175 mcg - ine 175 ity of tablet 18:05: mcg tablet [place] 42 TAKE 1 Medical TABLET BY Branch MOUTH EVERY MORNING gabapentin 2020-08 Yes gabapentin U nivers 300 mg 10-03 300 mg ity of capsule 18:05: capsule [place] 42 TAKE 1 Medical CAPSULE BY Branch MOUTH AT BEDTIME DULoxetine 2020-08 Yes duloxetine U nivers 60 mg 10-03 60 mg ity of capsule 18:05: capsuleCee 42 lay Medical release [place] TAKE 1 CAPSULE BY MOUTH TWICE DAILY divalproex 2020-08 Yes divalproex U nivers 500 mg EC 10-03 500 mg ity of tablet 18:05: tabletlow [address] [facility] TAKE 1 TABLET BY MOUTH DAILY amLODIPine 2020-08 Yes amlodipine U nivers 5 mg tablet 10-03 5 mg ity of 18:05: tablet [place] 42 TAKE 1 Medical TABLET BY Branch MOUTH TWICE DAILY fluticasone 2020-08- 1{puff} Inhale 1 Univers -vilanterol 10-03- Puff ity of (BREO 15:50: 00:00 daily. [place] ELLIPTA) 29 :00 Medical 100-25 Branch mcg/dose DsDv MULTIVITAMI 2020-08- No 1{tbl} Take 1 Tab Univers N ORAL 10-03- by mouth ity of 15:50: 00:00 daily. [place] 29 :00 Medical Branch KCL 2020-08- No 40meq 40 mEq, Univers (KLOR-CON 0-04 10-04 Oral, ity of M20) tablet 20:30: 19:23 [place]CE[place] 1 [place] 40 mEq 00 :00 dose, On Medical Mon Branch 05/09/21 at 1530, [place] iopamidol 2020-08- No [id number] 120mL 120 mL, Univers (ISOVUE 0-04 10-04 Intravenou ity o f 370-500 mL) 20:10: 20:25 s, ONCE, 1 [place] injection 00 :00 dose, On Medica l 120 mL Mon Branch 05/09/21 at 1530, Routine HYDROcodone 2020-08- No 1{tbl} 1 tablet, Univers -acetaminop 0-04 10-04 Oral, ity of hen (NORCO) 19:45: 18:46 [place]CE[place] 1 [place] 10-325 mg 00 :00 dose, On Medica l tablet 1 Mon Branch tablet 05/09/21 at 1445, Routine methocarbam 2020-08- No [id number] 500mg Take 1 Univers oL 500 mg 0-04 10-10 tablet by ity of tablet 00:00: 04:59 mouth 3 [place] 00 :00 (three) Medical times Branch daily for 5 days. simethicone Yes PRN, Univer s (GAS RELIEF 05-04 Starting ity of (SIMETHICON 17:36: on Sun E)) 40 00 05/04/21 at Medical mg/0.6 mL 1236, Branch drops Until Discontinu ed, Routine, Intra-op simethicone 2020- No PRN, Unive rs (GAS RELIEF 05-04 Starting ity of (SIMETHICON 17:36: 23:11 on Wed Solomon as E)) 40 00 :59 05/04/21 at Medical mg/0.6 mL 1236, Branch drops Until 05/04/21 at 1811, Routine, Intra-op fluticasone 0 Yes 1{puff} Inhale 1 Univers -vilanterol 9-29 Puff ity of (BREO 16:11: daily. [place] [address] Medical 100-25 Branch mcg/dose DsDv metFORMIN Yes 500mg Take 500 Uni vers (GLUCOPHAGE 9-29 mg by ity of ) 500 mg 16:11: mouth 2 [place] tablet 56 (two) Medical times Branch daily with meals. MULTIVITAMI Yes 1{tbl} Take 1 Tab Univers N ORAL 9-29 by mouth ity of 16:11: daily. [address] Branch simvastatin Yes 20mg Take 20 mg Univers (ZOCOR) 20 9-29 by mouth ity o f mg tablet 16:11: at [place] [address] bedtime. [facility] Branch fluticasone Yes 1{puff} Inhale 1 Univers -vilanterol 9-29 Puff ity of (BREO 16:11: daily. [facility]) Medical 100-25 Branch mcg/dose DsDv metFORMIN Yes 500mg Take 500 Uni vers (GLUCOPHAGE 9-29 mg by ity of ) 500 mg 16:11: mouth 2 [place] tablet 56 (two) Medical times Branch daily with meals. MULTIVITAMI 0 Yes 1{tbl} Take 1 Tab Univers N ORAL 9-29 by mouth ity of 16:11: daily. [address] Branch simvastatin 0 Yes 20mg Take 20 mg Univers (ZOCOR) 20 9-29 by mouth ity o f mg tablet 16:11: at [place] [address] bedtime. Medical Branch fluticasone Yes 1{puff} Inhale 1 Univers -vilanterol 9-29 Puff ity of (BREO 16:11: daily. [facility]) Medical 100-25 Branch mcg/dose DsDv metFORMIN 0 Yes 500mg Take 500 Uni vers (GLUCOPHAGE 9-29 mg by ity of ) 500 mg 16:11: mouth 2 [place] tablet 56 (two) Medical times Branch daily with meals. MULTIVITAMI 0 Yes 1{tbl} Take 1 Tab Univers N ORAL 9-29 by mouth ity of 16:11: daily. [address] simvastatin Yes 20mg Take 20 mg Univers (ZOCOR) 20 9-29 by mouth ity o f mg tablet 16:11: at [place] [address] bedtime. Medical Branch metFORMIN Yes 500mg Take 500 Uni vers (GLUCOPHAGE 9-29 mg by ity of ) 500 mg 16:11: mouth 2 [place] tablet 56 (two) Medical times [place] daily with meals. simvastatin Yes 20mg Take 20 mg Univers (ZOCOR) 20 9-29 by mouth ity o f mg tablet 16:11: at [place] [address] bedtime. [facility] Branch fluticasone Yes 1{puff} Inhale 1 Univers -vilanterol 6-25 Puff ity of (BREO 14:53: daily. [place] [facility] Medical 100-25 Branch mcg/dose DsDv metFORMIN Yes 500mg Take 500 Uni vers (GLUCOPHAGE 6-25 mg by ity of ) 500 mg 14:53: mouth 2 [place] tablet 30 (two) Medical times [place] daily with meals. MULTIVITAMI Yes 1{tbl} Take 1 Tab Univers N ORAL 6-25 by mouth ity of 14:53: daily. [address] simvastatin Yes 20mg Take 20 mg Univers (ZOCOR) 20 6-25 by mouth ity o f mg tablet 14:53: at [place] [address] bedtime. [facility] fluticasone Yes 1{puff} Inhale 1 Univers -vilanterol 6-25 Puff ity of (BREO 14:53: daily. [place] ELLIP) 30 Medical 100-25 Branch mcg/dose DsDv metFORMIN Yes 500mg Take 500 Uni vers (GLUCOPHAGE 6-25 mg by ity of ) 500 mg 14:53: mouth 2 [place] tablet 30 (two) Medical times [place] daily with meals. MULTIVITAMI 0 Yes 1{tbl} Take 1 Tab Univers N ORAL 6-25 by mouth ity of 14:53: daily. [address] simvastatin Yes 20mg Take 20 mg Univers (ZOCOR) 20 6-25 by mouth ity o f mg tablet 14:53: at [place] 30 bedtime. Medical Branch dicyclomine 2020-0 Yes [id number] 10mg Take 1 Univers 10 mg 6-25 capsule by ity of capsule 00:00: mouth 3 (three) Medical times Branch daily as needed for Abdominal pain. loperamide 2020-0 Yes [id number] 2mg Take 1 U nivers 2 mg 6-25 capsule by ity of capsule 00:00: mouth [place] 00 every 4 Medical (four) Branch hours as needed for Diarrhea. dicyclomine 2020-0 Yes [id number] 10mg Take 1 Univers 10 mg 6-25 capsule by ity of capsule 00:00: mouth 3 (three) Medical times Branch daily as needed for Abdominal pain. loperamide 2020-0 Yes [id number] 2mg Take 1 U nivers 2 mg 6-25 capsule by ity of capsule 00:00: mouth [place] 00 every 4 Medical (four) Branch hours as needed for Diarrhea. dicyclomine 2020-0 Yes [id number] 10mg Take 1 Univers 10 mg 6-25 capsule by ity of capsule 00:00: mouth (three) Medical times Branch daily as needed for Abdominal pain. loperamide 2020-0 Yes [id number] 2mg Take 1 U nivers 2 mg 6-25 capsule by ity of capsule 00:00: mouth [place] 00 every 4 Medical (four) Branch hours as needed for Diarrhea. dicyclomine 2020-0 Yes [id number] 10mg Take 1 Univers 10 mg 6-25 capsule by ity of capsule 00:00: mouth 3 (three) Medical times Branch daily as needed for Abdominal pain. loperamide 2020-0 Yes [id number] 2mg Take 1 U nivers 2 mg 6-25 capsule by ity of capsule 00:00: mouth [place] 00 every 4 Medical (four) Branch hours as needed for Diarrhea. dicyclomine 2020-0 Yes [id number] 10mg Take 1 Univers 10 mg 6-25 capsule by ity of capsule 00:00: mouth 3 (three) Medical times Branch daily as needed for Abdominal pain. loperamide 2020-0 Yes [id number] 2mg Take 1 U nivers 2 mg 6-25 capsule by ity of capsule 00:00: mouth [place] 00 every 4 Medical (four) Branch hours as needed for Diarrhea. dicyclomine 0 Yes [id number] 10mg Take 1 Univers 10 mg 6-25 capsule by ity of capsule 00:00: mouth 3 [place] 00 (three) Medical times Branch daily as needed for Abdominal pain. loperamide 0 Yes [id number] 2mg Take 1 U nivers 2 mg 6-25 capsule by ity of capsule 00:00: mouth [place] 00 every 4 Medical (four) Branch hours as needed for Diarrhea. tiZANidine Yes TAKE 1 Unive rs 2 mg tablet 1-07 TABLET BY ity of 00:00: MOUTH [place] 00 TWICE Medical DAILY Branch DIRECTED tiZANidine 0 Yes TAKE 1 Unive rs 2 mg tablet 1-07 TABLET BY ity of 00:00: MOUTH [place] 00 TWICE Medical DAILY Branch DIRECTED tiZANidine 0 Yes TAKE 1 Unive rs 2 mg tablet 1-07 TABLET BY ity of 00:00: MOUTH [place] 00 TWICE Medical DAILY Branch DIRECTED tiZANidine 0 Yes TAKE 1 Unive rs 2 mg tablet 1-07 TABLET BY ity of 00:00: MOUTH [place] 00 TWICE Medical DAILY Branch DIRECTED tiZANidine 0 Yes TAKE 1 Unive rs 2 mg tablet 1-07 TABLET BY ity of 00:00: MOUTH [place] 00 TWICE Medical DAILY Branch DIRECTED tiZANidine 2020-0 Yes TAKE 1 Unive rs 2 mg tablet 1-07 TABLET BY ity of 00:00: MOUTH [place] 00 TWICE Medical DAILY Branch DIRECTED Levothyroxi Levothyroxi 2019-0 Yes Ruth [address] [facility] ne Sodium ne Sodium 4-07 [place] in the Miesha kes - 00:00: morning on Memoria 00 an empty l stomach Outpati ent Clinics Levothyroxi Levothyroxi Yes Ruth [address] [facility] ne Sodium ne Sodium [place] in the [place] kes - morning on Memoria an empty l stomach Outpati to equal ent 225mcg Clinics daily Gabapentin Gabapentin Yes Ruth TK [address] [place] CAPSULES [facility] - PO QID PRN [facility] Outpati ent Clinics Ondansetron Ondansetron Yes Ruth TK [address] [facility] HCl HCl [place] QD FOR 10 [facility] - DAYS PRN [facility] Duloxetine Duloxetine Yes Ruth not [facility] HCl HCl [place] defined [facility] Breo Breo Yes Ruth [address] [facility] Ellipta Ellipta [place] [facility] Topiramate Topiramate Yes Ruth [address] [facility] [place] [facility] Albuterol Albuterol Yes Ruth 3 ml as [facility] Sulfate Sulfate [place] needed [facility] Trazodone Trazodone Yes Ruth TK [address] [facility] [address] HCl HCl [place] TS PO HS [facility] - PRF Memoria INSOMNIA l [facility] Tizanidine Tizanidine Yes Ruth [address] [facility] [facility] HCl HCl [place] as needed [facility] Norvasc Norvas Yes Ruth [address] [facility] [place] [facility] Estradiol Estradiol Yes Ruth as [facility] [place] directed [facility] Sucralfate Sucralfate Yes Ruth [address] [facility] [place] on an [facility] - empty Memoria stomach l [facility] Nystatin Nystatin Yes Ruth [address] [facility] [place] applicatio [facility] n [facility] Albuterol Albuterol Yes Ruth INL [address] Sulfate HFA Sulfate HFA [place] PO Q 6 H [facility] - PRN Memoria l [facility] Meloxicam Meloxicam Yes Ruth TK [address] [facility] [place] QD [facility] Loratadine Loratadine Yes Ruth TK [address] [facility] [place] QD FOR [facility] - ALLERGIES Memoria l [facility] Simvastatin Simvastatin Yes Ruth [address] [facility] [place] in the [facility] - evening Memoria l [facility] Pantoprazol Pantoprazol Yes Ruth [address] [facility] [facility] e Sodium e Sodium [place] [facility] Lorazepam Lorazepam Yes Ruth [address] [facility] [place] at bedtime [facility] - as needed Memoria l [facility] Metformin Metformin Yes Ruth TAKE [address] HCl HCl [place] TABLET BY [facility] - MOUTH Memoria TWICE l [facility] Divalproex Divalproex Yes Ruth [address] [facility] Sodium ER Sodium ER [place] [facility] Outpati ent Clinics Quetiapine Quetiapine Yes Ruth [address] [facility] Fumarate Fumarate [place] at bedtime [facility] Tramadol Tramadol Yes Ruth [address] HCl HCl [place] as needed [facility] Botox Botox Yes Ruth as [facility] [place] directed [facility] Januvia Zafaruvia Yes Ruth [address] [facility] [place] [facility] Divalproex Divalproex Yes Ruth [address] Sodium ER Sodium ER [place] [facility] Outpat[facility] ent Clinics Simvastatin Simvastatin Yes Ruth TAKE [address] [facility] [address] [place] TABLET BY [facility] - MOUTH Memoria EVERY DAY l IN THE Outpati EVENING ent Clinics Losartan Losartan Yes Ruth [address] Potassium Potassium [place] [facility] Oxybutynin Oxybutynin 2020- No Ruth [address] Chloride Chloride 10-31 [place] [facility] - 00:00 Memoria :00 l [facility] Clin[facility] Immunizations Ordered Filled Immunization Date Status Comments [facility] e Immunization Name Name Pneumovax Pneumovax 2019-06-[address] [facility] - 00:00:00 [facility] Outpatient [facility] Flucelvax - single Flucelvax - single 2019-05-[address] [facility] - dose syringe dose syringe 00:00:00 [facility] Prevnar 13 Prevnar 13 2018-05-[address] [facility] - -Pneumonia Vaccine -Pneumonia Vaccine 00:00:00 [facility] Outpatient [facility] Vital Signs Vital Name Observation Time Observation Value Comments Source Systolic blood 2021-08-02 18:55:00 132 mm[Hg] Univer sity [facility] Diastolic blood 2021-08-02 18:55:00 92 mm[Hg] [facility] Heart rate 2021-08-02 18:55:00 102 /min [facility] Body temperature 2021-08-02 18:55:00 36.44 Natalia [facility] Respiratory rate 2021-08-02 18:55:00 18 /min [facility] Body weight 2021-08-02 18:55:00 86.183 kg [facility] [place] [facility] BMI 2021-08-02 18:55:00 30.68 kg/m2 [facility] [place] [facility] Oxygen saturation in 2021-08-02 18:55:00 100 /min University of Arterial blood by [facility] Pulse oximetry Branch Systolic blood 2021-05-09 22:00:00 165 mm[Hg] Univer sity of pressure [place] [facility] Diastolic blood 2021-05-09 22:00:00 84 mm[Hg] Unive rsity of pressure [place] [facility] Heart rate 2021-05-09 22:00:00 87 /min [facility] [place] [facility] Body temperature 2021-05-09 22:00:00 36.89 Natalia Univ ersity of [place] [facility] Respiratory rate 2021-05-09 22:00:00 20 /min Univ ersity of [place] [facility] Oxygen saturation in 2021-05-09 22:00:00 98 /min University of Arterial blood by [facility] Pulse oximetry Branch Body weight 2021-05-09 15:55:00 105.235 kg [facility] [place] [facility] BMI 2021-05-09 15:55:00 37.46 kg/m2 [facility] [place] [facility] Systolic blood 2021-05-04 19:25:00 150 mm[Hg] Univer sity of pressure [place] [facility] Diastolic blood 2021-05-04 19:25:00 72 mm[Hg] Unive rsity of pressure [place] [facility] Respiratory rate 2021-05-04 19:15:00 20 /min Univ ersity of [place] [facility] Heart rate 2021-05-04 19:10:00 87 /min [facility] [place] [facility] Oxygen saturation in 2021-05-04 19:10:00 100 /min University of Arterial blood by [facility] Pulse oximetry Branch Body temperature 2021-05-04 18:55:00 35.83 Natalia Univ ersity of [place] [facility] Body height 2021-04-21 15:43:00 167.6 cm [facility] [place] [facility] Body weight 2021-04-21 15:43:00 105.6 kg [facility] [place] [facility] BMI 2021-04-21 15:43:00 37.59 kg/m2 [facility] [place] [facility] Systolic blood 2021-05-04 18:55:00 140 mm[Hg] Univer sity of pressure [facility] Diastolic blood 2021-05-04 18:55:00 84 mm[Hg] Unive rsity of pressure [facility] Heart rate 2021-05-04 18:55:00 90 /min [facility] Body temperature 2021-05-04 18:55:00 35.83 [facility] 2021-05-04 18:55:00 25 /min [facility] O[facility] in 2021-05-04 18:55:00 94 /min [facility] Arterial blood by [facility] Pulse oximetry [place] Body height 2021-04-21 15:43:00 167.6 cm [facility] Body weight 2021-04-21 15:43:00 105.6 kg [facility] BMI 2021-04-21 15:43:00 37.59 kg/m2 [facility] Procedures Procedure Date / Time Performing Source Performed Clinician CT ABDOMEN PELVIS WO CONTRAST 2021-08-02 Lavell De Leon iversity of 22:56:46 [facility] LIPASE 2021-08-02 [facility] of 21:09:00 [facility] COMP. METABOLIC PANEL ([id number]) 2021-08-02 Lavell De Leon iversity of 21:09:00 [facility] CBC WITH DIFF 2021-08-02 Lavell De Leon of 21:08:00 [facility] URINALYSIS 2021-08-02 Lavell De Leon of 21:08:00 [facility] COVID-19 (ID NOW RAPID TESTING) 2021-08-02 Lavell De Leon Tiro of 20:17:00 [facility] CONSENT/REFUSAL FOR DIAGNOSIS AND 2021-08-02 [facility] 18:35:23 Unassigned, No [facility] CT ABDOMEN PELVIS W CONTRAST 2021-05-09 Lavell De Leon Uni versity of 20:15:19 [facility] URINALYSIS 2021-05-09 Lavell De Leon of 18:58:00 [facility] COMP. METABOLIC PANEL ([id number]) 2021-05-09 Lavell De Leon iversity of 18:35:00 [facility]FF [facility] 18:35[facility]00 [facility] XR CHEST 2 VW 2021-05-09 [facility] of 16:47:42 [facility] XR LUMBAR SPINE 3 VW 2021-05-09 [facility] of 16:47:42 [facility] ESOPHAGOGASTRODUODENOSCOPY 2021-05-04 Jackie Reyna [facility] of 18:21:00 Bhaskar Hay [facility] EGD (ENDO) 2021-05-04 [facility] of 17:46:29 [facility] EGD (ENDO) 2021-05-04 [facility] of 17:46:29 [facility] ASSIGNMENT OF BENEFITS 2021-05-03 Doctor Universit y of 13:07:28 Unassigned, No [facility] EXTERNAL PROVIDER RECORDS 2021-04-20 Doctor Univer [facility] of 05:01:00 Unassigned, No [facility] EXTERNAL PROVIDER RECORDS 2021-04-20 Doctor [facility] 05:01:00 Unassigned, No [facility] Encounters Start End Encounter Admission Attending Care Care Encounter Source Date/Time Date/Time Type Type Clinicians Facility Department ID 2021-08-31 Outpatient [place], [facility] [id number] [facility] [address] 14[facility]40[facility]32 [facility] 2021-08-31 [facility] [place], [facility] [id number] 14:27:35 Skylar 33477 [facility] 2021-08-31 Outpatient [place], [facility] [id number] [facility] 14:13:22 Skylar 53525 [facility] 2021-08-31 Outpatient Triana, [facility] [id number] 14:05:40 Skylar 94336 [facility] 2021-08-31 Outpatient [place], [facility] [id number] 14:01:51 Ruth 09890 [facility] 2021-08-31 Outpatient [place], [facility] [id number] [address] 14:00:44 Ruth 72458 [facility] 2021-08-31 Outpatient Florencio, [facility] [id number] [facility] [address] 13:48:34 Ruth 47735 [facility] 2021-08-31 Outpatient Florencio, [facility] [id number] 13:28:14 Ruth 59799 [facility] 2021-08-31 Outpatient Florencio, [facility] [id number] [facility] [address] 12:43:59 Ruth 95638 [facility] 2021-08-31 Outpatient Florencio, [facility] [id number] 12:43:30 Ruth 61776 [facility] 2021-08-31 Outpatient Florencio, [facility] [id number] 12:40:36 Ruth 89969 [facility] 2021-08-31 Outpatient Florencio, [facility] [id number] 11:45:41 Ruth 02421 [facility] 2021-08-31 Outpatient Florencio, [facility] [id number] 11:36:44 Ruth 60713 [facility] 2021-08-31 Outpatient Florencio, [facility] [id number] 11:33:43 Ruth 88934 [facility] 2021-08-31 Outpatient Florencio, [facility] [id number] 11:29:50 Ruth 81578 [facility] 2021-08-31 Outpatient Florencio, [facility] [id number] 11:25:13 Ruth 18889 [facility] 2021-08-31 Outpatient Florencio, [facility] [id number] 11:19:14 Ruth 31062 [facility] 2021-08-31 Outpatient Florencio, [facility] [id number] [facility] 11:12:16 Ruth 63214 [facility] 2021-08-31 Outpatient Estefany, [facility]LMLC [facility] [id number] 11:09:26 Sheryl 39193 [facility] 2021-08-31 Outpatient Florencio, [facility] [id number] 11:07:41 Ruth 18480 [facility] 2021-08-31 Outpatient Florencio, [facility] [id number] 11:07:07 Ruth 23828 [facility] 2021-08-31 Outpatient Florencio, [facility] [id number] 10:58:45 Ruth 57918 [facility] 2021-06-07 Emergency [facility] [id number] Univers 03:36:58 ity [facility] 2021-06-07 Outpatient R [facility] NING [id number] Univers 00:03:36 E, DEXTERReena ity [facility] 2021-06-06 Emergency [facility] [id number] Univers 01:28:49 ity [facility] 2021-06-04 Emergency [facility] [id number] [facility] 13:53[facility]04 Out[facility] R [facility] GATITO [id number] Univers 00:26:15 E, BHASKAR ity [facility] 2021-09-12 2021-09-12 ambulatory [facility] [id number] [facility]00 [facility] 2021-09-02 2021-09-02 ambulatory [facility] [id number] [facility]00 [facility] 2021-09-02 2021-09-02 ambulatory [facility] [id number] [facility]00 [facility] 2021-09-02 2021-09-02 ambulatory [facility] [id number] [facility]00 [facility] 2021-08-31 2021-08-31 ambulatory [facility] [id number] [facility]00 [facility] 2021-08-25 2021-08-25 ambulatory [facility] [id number] [facility]00 [facility] 2021-08-23 2021-08-23 ambulatory [facility] [id number] [facility]00 [facility] 2021-08-16 2021-08-16 ambulatory [facility] [id number] [facility]00 [facility] 2021-08-15 2021-08-15 ambulatory [facility] [id number] [facility]00 [facility] 2021-08-02 2021-08-02 Emergency X MARCELINA NEMARIO ERT [id number] Univers 12:57:00 18:07:00 KATTY perez [facility] 2021-08-02 2021-08-02 Emergency De LeonLavell michael [facility] 1.2.840. 114 [id number] Univers 12:57:00 18:07:00 Katty Hewitt [id number] [facility] [id number] [facility] [id number] [place] [address] Branch 2021-07-27 2021-07-27 ambulatory [facility]MLC [facility] [id number] [facility]00 [facility] 2021-07-07 2021-07-07 ambulatory [facility]MLC [facility] [id number] [facility]00 [facility] 2021-07-06 2021-07-06 ambulatory [facility] [id number] [facility]00 [facility] 2021-06-22 2021-06-22 ambulatory [facility] [id number] [facility]00 [facility] 2021-06-02 2021-06-02 Outpatient [facility] [id number] [facility]00 [facility] 2021-05-18 2021-05-18 Outpatient [facility] [id number] [facility]00 [facility] 2021-05-09 2021-05-09 Emergency De Leon, [facility] [id number] [facility] 10:58:00 17:26:00 Lavell Thomason [id number] [place] [id number] [facility] 084 Branch 2021-05-04 2021-05-04 [facility] 1.2.840.114 [id number] Univers 11:54:00 14:35:00 Encounter Bhaskar pittman [id number] [place] [id number] [facility] [place] 071 Branch 2021-05-04 2021-05-04 Surgery [facility] 1.2.840.114 [id number] Univers 13:25:00 13:57:00 Bhaskar pittman 350.1.13.10 [place].2.[place] [id number] [facility] 020 Branch 2021-05-03 2021-05-03 Laboratory Only, Adc Test [facility] 1.2.840. 114 [id number] Univers 08:07:19 08:22:19 Only Bhaskar Reyna 350.1.1 3.10 [place] [id number] [facility] 353 Branch 2021-05-03 2021-05-03 Outpatient R [facility] [id number] Univers 07:45:00 07:45:00 [id number] ity of [facility] 2021-05-03 2021-05-03 Outpatient R MINH [facility] [id number] Univers 07:45:00 07:45:00 BHASKAR Pittman ity o f [facility] 2021-05-03 2021-05-03 Orders Doctor ABISAI 1.2.840.114 [id number] Univers 00:00:00 00:00:00 Only Unassigned, BAR 350.1.13.10 ity of [place] [facility] 4.2.7.2.686 Solomon as [id number] [facility] 009 Branch 2021-04-20 2021-04-20 Outpatient [facility]LMLC [facility] [id number] [facility] 00:[facility]:00 Sintia andres Outpati ent Clinics 2021-03-10 2021-03-10 Hospital Radiology [facility] 1.2.840.114 [id number] 10:47:03 23:59:00 Encounter [place] 350.1.13.10 [place] 4.2.7.2.686 [place] [id number] 2021-03-10 2021-03-10 [facility] Radiology [facility] 1.2.840.114 [id number] 10:45:00 10:46:00 Encounter [place] 350.1.13.10 [place] 4.2.7.2.686 [place] [id number] 2021-03-10 2021-03-10 Outpatient R RADIOLOGY [facility] [id number] Univers 10:45:00 10:45:00 [id number] ity of [facility] 2021-03-10 2021-03-10 Outpatient R RADIOLOGY [facility] [id number] Univers 00:00:00 00:00:00 ity of [facility] 2021-03-08 2021-03-08 Urgent [place], [facility] 1.2.840.114 [id number] 20:00:13 20:20:13 Care [facility] 350.1.13.10 [place] 4.2.7.2.686 Professio [id number] nal [address] 2021-03-08 2021-03-08 Outpatient R [facility] [id number] Univers 20:00:00 20:00:00 [id number] [facility] 2021-03-08 2021-03-08 Outpatient R TETO [facility] [id number] Univers 20:00:00 20:00:00 LEON [facility] 2021-02-24 2021-02-24 Outpatient [facility] [id number] [facility] 2021-02-19 2021-02-19 Outpatient [facility] [id number] [facility]00 [facility] 2021-02-18 2021-02-18 Outpatient [facility] [id number] [facility]00 [facility] 2021-02-16 2021-02-16 Outpatient [facility] [id number] [facility]00 [facility] 2021-01-31 2021-01-31 Transition Dave Lowery 1.2.840.114 [id number] 00:00:00 00:00:00 of Care Karen Andres Lopez 350.1.13.10 [place] 4.2.7.2.686 [id number] 2021-01-18 2021-01-28 [facility] 1.2.840.1 [id number] 21:13:00 14:30:00 Encounter Mauro Chinchilla 350.1.13.10 Gomez [place] 4.2.7.2.686 [place] [id number] 2021-01-25 2021-01-25 Anesthesia Tai Avalos [facility] 1.2.840.11 [id number] 08:49:00 09:30:00 Event Randell López 350.1.13.10 Luc 4.2.7.2.686 Surgical [id number] Tye 020 2021-01-25 2021-01-25 Surgery [facility] 1.2.840.114 [id number] 08:33:00 09:08:00 [place] 350.1.13.10 [place] 4.2.7.2.686 Surgical [id number] Tye 020 2021-01-19 2021-01-19 Outpatient [facility] [id number] [facility] 2020-12-31 2020-12-31 Outpatient [facility] [id number] [facility]00 [facility] 2020-12-30 2020-12-30 Outpatient [facility] [id number] [facility] 00[facility]00 [facility] 2020-12-20 2020-12-20 Outpatient [facility] [id number] [facility]00 [facility] 2020-12-08 2020-12-08 [facility] 1.2.840.114 [id number] 00:00:00 00:00:00 Nichole L [facility] 350.1.13.10 Surgical 4.2.7.2.686 Specialti [id number] es 198 [place] 2020-12-07 2020-12-07 Orders Doctor ABISAI 1.2.840.114 [id number] 00:00:00 00:00:00 Only Unassigned, BAR 350.1.13.10 [place] [facility] 4.2.7.2.686 [id number] 2020-12-06 2020-12-06 Office Sid [facility] 1.2.310.540 [id number] 15:09:54 15:49:09 Visit Nichole L [employer] 350.1.13.10 Surgical 4.2.7.2.686 Specialti [id number] es 198 [place] 2020-12-06 2020-12-06 Outpatient R SID [facility] [id number] Univers 15:00:00 15:00:00 NICHOLE 137525 [facility] 2020-12-06 2020-12-06 Outpatient Reena LAU [facility] [id number] Univers 15:00:00 15:00:[address] [facility] [place] [place] 2020-11-26 2020-11-26 Outpatient TARA [facility] [id number] Univers 09:30:00 09:30:00 [facility] 2020-11-24 2020-11-24 [facility] [id number] Univers 09:30:00 09:30:00 [facility] 2020-11-16 2020-11-16 Outpatient [facility]LMLC [facility] [id number] [facility] 00:[facility]:00 [facility] 2020-11-11 2020-11-11 Outpatient Reena PACHECO [facility] [id number] Univers 11:15:00 11:15:00 KUSUM [id number] [facility] 2020-11-11 2020-11-11 Outpatient Reena PACHECO [facility] [id number] Univers 11:15:00 11:15:00 [facility] 2020-11-09 2020-11-09 Outpatient Reena PACHECO [facility] [id number] Univers 13:45:00 13:45:00 KUSUM [id number] [facility] 2020-11-09 2020-11-09 Outpatient Reena PACHECO [facility] [id number] Univers 13:45:00 13:45:00 [facility] 2020-11-09 2020-11-09 Outpatient Reena LAU [facility] [id number] Univers 00:00:00 00:00:00 NICHOLE [facility] 2020-11-08 2020-11-08 Outpatient Reena LAU [facility] [id number] Univers 15:30:00 15:30:00 NICHOLE [id number] [facility] 2020-11-08 2020-11-08 Outpatient Reena LAU [facility] [id number] Univers 00:00:00 00:00:00 NICHOLE [facility] 2020-11-03 2020-11-03 Outpatient [facility] [id number] [facility] 2020-10-25 2020-10-25 Outpatient [facility] [id number] [facility]00 [facility] 2020-10-22 2020-10-22 Outpatient [facility] [id number] [facility]00 [facility] 2020-10-20 2020-10-20 Outpatient [facility] [id number] [facility]00 [facility] 2020-10-12 2020-10-12 Outpatient [facility] [id number] [facility]00 [facility] 2020-09-15 2020-09-15 Outpatient [facility] [id number] [facility]00 [facility] 2020-09-10 2020-09-10 Outpatient [facility] [id number] Univers 19:40:00 19:40:00 [id number] [facility] 2020-09-10 2020-09-10 Outpatient R NIKKI [facility] [id number] Univers 19:40:00 19:40:00 AMANDA perez o f [facility] 2020-07-12 2020-07-12 Outpatient [facility]MLC [facility] [id number] [facility]00 [facility] 2020-06-11 2020-06-11 Outpatient [facility] [id number] [facility]00 [facility] 2020-06-01 2020-06-01 Outpatient R [facility] [id number] Univers 11:45:00 11:45:00 [id number] [facility] 2020-06-01 2020-06-01 Outpatient R MINH [facility] [id number] Univers 11:45:00 11:45:00 BHASKAR Pittman [facility] 2020-05-26 2020-05-26 Outpatient [facility] [id number] [facility]00 [facility] 2020-05-11 2020-05-11 Outpatient [facility] [id number] [facility]00 [facility] 2020-04-16 2020-04-16 [facility] [id number] [facility] 15:00:00 15:00:00 t [facility] Medicine l Medicine Outpati ent Clinics 2020-04-16 2020-04-16 Outpatient [facility] [id number] [facility] 00[facility]00 [facility] 2020-04-13 2020-04-13 [facility] [id number] [facility] 08:51:00 08:51:00 t [facility] Medicine Outpati ent Clinics 2020-02-27 2020-02-27 [facility] [id number] 14:00:00 14:00:00 t [employer] [place] [facility] l Medicine Outpati ent Clinics 2020-02-23 2020-02-23 [facility] [id number] 13:12:00 13:12:[address] [facility] l Medicine Outpati ent Clinics 2020-02-18 2020-02-18 [facility] [id number] 09:08:00 09:08:[address] [facility] l Medicine Outpati ent Clinics 2020-02-16 2020-02-16 [facility] [id number] 18:34:00 18:34:00 t [facility] Medicine Outpati ent Clinics 2020-02-11 2020-02-11 [facility] [id number] 13:20:00 13:20:00 t [facility] Medicine l Medicine Outpati ent Clinics 2020-01-06 2020-01-06 [facility] [id number] 18:46:00 18:46:00 t [facility] Medicine Outpati ent Clinics 2019-12-22 2019-12-22 [facility] [id number] 14:00:00 14:00:00 t [facility] 2019-12-05 2019-12-05 [facility] [id number] 10:40:00 10:40:00 t [facility] Medicine Outpati ent Clinics 2019-11-28 2019-11-28 [facility] [id number] 11:00:00 11:00:00 t [facility] Medicine Outpati ent Clinics 2019-11-10 2019-11-10 [facility] [id number] 15:55:00 15:55:00 t [facility] Medicine Outpati ent Clinics 2019-11-05 2019-11-05 [facility] [id number] 18:33:00 18:33:00 t [facility] Medicine Outpati ent Clinics 2019-10-28 2019-10-28 [facility] [id number] 11:08:00 11:08:00 t [facility] Medicine l Medicine Outpati ent Clinics 2019-10-27 2019-10-27 [facility] [id number] 14:31:00 14:31:00 t [facility] Medicine Outpati ent Clinics 2019-10-13 2019-10-13 [facility] [id number] 09:00:00 09:00:00 [facility] Medicine l Medicine Outpati ent Clinics 2019-09-29 2019-09-29 [facility] [id number] 11:30:00 11:30:00 t [facility] Medicine Outpati ent Clinics 2019-09-18 2019-09-18 [facility] [id number] 14:40:00 14:40:00 t [facility] Medicine Outpati ent Clinics 2019-08-14 2019-08-14 [facility] [id number] 14:18:00 14:18:00 t [facility] Medicine Outpati ent Clinics 2019-08-13 2019-08-13 [facility] [id number] 11:00:00 11:00:00 t [facility] Medicine Outpati ent Clinics 2019-07-18 2019-07-18 [facility] [id number] 09:00:00 09:00:00 t [facility] Medicine Outpati ent Clinics 2019-06-23 2019-06-23 [facility] [id number] 10:40:00 10:40:00 t [facility] Medicine Outpati ent Clinics 2019-06-09 2019-06-09 [facility] [id number] 12:17:00 12:17:00 t [facility] Medicine Outpati ent Clinics 2019-06-09 2019-06-09 [facility] [id number] 08:20:00 08:20:00 t [facility] Medicine Outpati ent Clinics 2019-05-30 2019-05-30 [facility] [id number] 08:00:00 08:00:00 t [facility] Medicine Outpati ent Clinics 2019-04-03 2019-04-03 [facility] [id number] 09:00:00 09:00:00 t [facility] Clinic of [facility] ent Clinics 2019-03-24 2019-03-24 [facility] [id number] 10:15:00 10:15:00 t Specialty/U Miesha kes - Specialty rology Memori a /Urology Clinic l Clinic [facility] ent Clinics 2019-03-04 2019-03-04 [facility] [id number] 11:00:00 11:00:00 t Specialty/U Miesha [facility] ent Clinics 2019-02-21 2019-02-21 [facility] [id number] 13:45:00 13:45:00 t Specialty/U Miesha kes - Specialty rology [facility] a /Urology Clinic l Clinic [facility] ent Clinics 2019-02-18 2019-02-18 [facility] [id number] 15:42:00 15:42:00 t [facility] Medicine Outpati ent Clinics 2019-02-11 2019-02-11 [facility] [id number] 13:20:00 13:20:00 t [facility] Medicine [facility] ent Clinics 2018-11-11 2018-11-11 [facility] [id number] 09:20:00 09:20:00 [facility] Medicine Medicine Outpati ent Clinics 2018-10-01 2018-10-01 [facility] [id number] 15:30:00 15:30:00 t [facility] Medicine l Medicine Outpati ent Clinics 2018-09-06 2018-09-06 [facility] [id number] 10:00:00 10:00:00 t [facility] Medicine Outpati ent Clinics 2018-05-21 2018-05-21 [facility] [id number] 08:37:00 08:37:00 [facility] Medicine Outpati ent Clinics 2018-05-09 2018-05-09 Outpatient Marcell Leggett [id number] [facility] 08:30[facility]00 08:30:00 t [facility] Medicine [facility] ent Clinics Results Test Description Test Time Test Comments Results Result Comments Source COMP. METABOLIC PANEL (20048) 2021-08-02 21:49:40 Test Item Value Reference Range Interpretation Comme nts NA (test code = 6435478972) 135 mmol/L 135-145 K (test code = 3561032881) 4.0 mmol/L 3.5-5.0 CL (test code = 7107660277) 103 mmol/L 98-108 CO2 TOTAL (test code = 2555857341) 22 mmol/L 23-31 L AGAP (test code = 5474910491) 2-16 BUN (test code = 4652284690) 17 mg/dL 7-23 GLUCOSE (test code = 8778080912) 106 mg/dL 70-110 CREATININE (test code = 1.09 mg/dL 0.50-1.04 H 9223163114) TOTAL BILI (test code = 0.5 mg/dL 0.1-1.6 1362791381) CALCIUM (test code = 8318974364) 9.2 mg/dL 8.6-10.6 T PROTEIN (test code = 6614273813) 7.6 g/dL 6.3-8.2 ALBUMIN (test code = 0593591630) 4.6 g/dL 3.5-5.0 ALK PHOS (test code = 4817229178) 62 U/L 34-122 ALTv (test code = 1742-6) 25 U/L 5-35 AST(SGOT) (test code = 2833146005) 26 U/L 13-40 eGFR (test code = 9718790553) mL/min/1.73m2 RAOUL (test code = RAOUL) Association of Glomerular Filtration Rate (GFR) and Staging of Kidney Disease* + +-------- + ------+| GFR (mL/min/1.73 m2) ?| With Kidney Damage ?| ?Without Kidney Damage+ +-- + +| ?>90 ?| ?Stage one ?| ? Normal ?+ +------- + -------+| ?60-89 ?| ?Stage two ?| ? Decreased GFR ? + +-------- + ------+| ?30-59 ?| ?Stage three ?| ? Stage three ? + +-------- + ------+| ?15-29 ?| ?Stage four ? | ? Stage four ?+ +------- + -------+| ?<15 (or dialysis) ? ?| ?Stage five ? | ? Stage five ?+ +------- + -------+ *Each stage assumes the associated GFR level [...] tests). Lab Interpretation (test code = Abnormal 17544-7) [facility] Test Item Value Reference Range Interpretation Comments LIPASE (test code = 7770189240) 114 U/L 0-220 Lab Interpretation (test code = Normal 48082-4) [facility] WITH [id number] 21:25:54 Test Item Value Reference Range Interpretation Comments WBC (test code = See_Comment [Automated 6490-2) message] The sy stem which generated this result transmitted reference range : 4.30 - 11.10 10*3/?L. The reference range was not used to interpret this result as normal/abnormal . RBC (test code = See_Comment L [Automated 919-8) message] The sy stem which generated this result transmitted reference range : 3.93 - 5.25 10*6/?L. The reference range was not used to interpret this result as normal/abnormal . HGB (test code = 11.7 g/dL 11.6-15.0 718-7) HCT (test code = 35.9 % 35.7-45.2 4544-3) MCV (test code = 102.3 fL 80.6-95.5 H 787-2) MCH (test code = 33.3 pg 25.9-32.8 H 785-6) MCHC (test code = 32.6 g/dL 31.6-35.1 786-4) RDW-SD (test code = 48.0 fL 39.0-49.9 85541-1) RDW-CV (test code = 12.8 % 12.0-15.5 788-0) PLT (test code = See_Comment [Automated 777-3) message] The sy stem which generated this result transmitted reference range : 166 - 358 10*3/ ?L. The reference r stephanie was not used to interpret this result as normal/abnormal . MPV (test code = 10.4 fL 9.5-12.9 17056-6) NRBC/100 WBC (test See_Comment [Automat ed code = 0333905579) message] The system which generated this result transmitted reference range : 0.0 - 10.0 /100 WBCs. The refer ence range was not u sed to interpret th is result as normal/abnormal . NRBC x10^3 (test code <0.01 See_Comment [Auto mated = 5507759731) message] The s ystem which generated this result transmitted reference range : 10*3/?L. The reference range was not used to interpret this result as normal/abnormal . GRAN MAT (NEUT) % 52.4 % (test code = 770-8) IMM GRAN % (test code 0.00 % = 0608589881) LYMPH % (test code = 37.1 % 736-9) MONO % (test code = 7.7 % 5905-5) EOS % (test code = 2.2 % 713-8) BASO % (test code = 0.6 % 706-2) GRAN MAT x10^3(ANC) 2.84 10*3/uL 1.88-7.09 (test code = 3241720149) IMM GRAN x10^3 (test <0.03 0.00-0.06 code = 2879289310) LYMPH x10^3 (test code 2.01 10*3/uL 1.32-3.29 = 731-0) MONO x10^3 (test code 0.42 10*3/uL 0.33-0.92 = 742-7) EOS x10^3 (test code = 0.12 10*3/uL 0.03-0.39 711-2) BASO x10^3 (test code 0.03 10*3/uL 0.01-0.07 = 704-7) Lab Interpretation Abnormal (test code = 77711-7) [facility]. METABOLIC PANEL ([id number])2021-05-09 19:18:28 Test Item Value Reference Range Interpretation Comments NA (test code = 138 mmol/L 135-145 0837087245) K (test code = 2.9 mmol/L 3.5-5.0 LL 0582161832) CL (test code = 104 mmol/L 98-108 4580049850) CO2 TOTAL (test code = 25 mmol/L 23-31 9066913890) AGAP (test code = 2-16 0989676514) BUN (test code = 8 mg/dL 7-23 3939500456) GLUCOSE (test code = 134 mg/dL 70-110 H 9150357127) CREATININE (test code = 0.77 mg/dL 0.50-1.04 5099447767) TOTAL BILI (test code = 0.4 mg/dL 0.1-1.1 7600586373) CALCIUM (test code = 9.6 mg/dL 8.6-10.6 4983983360) T PROTEIN (test code = 7.3 g/dL 6.3-8.2 8363489607) ALBUMIN (test code = 4.4 g/dL 3.5-5.0 6546156026) ALK PHOS (test code = 63 U/L 34-122 0892836092) ALTv (test code = 27 U/L 5-35 1742-6) AST(SGOT) (test code = 27 U/L 13-40 1082109701) eGFR (test code = mL/min/1.73m2 5351999065) RAOUL (test code = RAOUL) Association of Glomerular Filtration Rate (GFR) and Staging of Kidney Disease* + --+ --+ ------+| GFR (mL/min/1.73 m2) ?| With Kidney Damage ?| ?Without Kidney Damage+ --------+ --------+ +| ?>90 ?| ?Stage one ?| ? Normal ?+ ---+ ---+ -------+| ?60-89 ?| ?Stage two ?| ? Decreased GFR ? + --+ --+ ------+| ?30-59 ?| ?Stage three ?| ? Stage three ? + --+ --+ ------+| ?15-29 ?| ?Stage four ? | ? Stage four ?+ ---+ ---+ -------+| ?<15 (or dialysis) ? ?| ?Stage five ? | ? Stage five ?+ ---+ ---+ -------+ *Each stage assumes the associated GFR level [...] or abnormalities in imaging tests). Lab Interpretation Abnormal (test code = 12490-8) [facility] WITH [id number] 18:53:37 Test Item Value Reference Range Interpretation Comments WBC (test code = See_Comment [Automated 7490-2) message] The sy stem which generated this result transmitted reference range : 4.30 - 11.10 10*3/?L. The reference range was not used to interpret this result as normal/abnormal . RBC (test code = See_Comment L [Automated 939-8) message] The sy stem which generated this [...] RDW-SD (test code = 48.9 fL 39.0-49.9 12563-0) RDW-CV (test code = 13.9 % 12.0-15.5 788-0) PLT (test code = See_Comment [Automated 777-3) message] The sy stem which generated this result transmitted reference range : 166 - 358 10*3/ ?L. The reference r stephanie was not used to interpret this result as normal/abnormal . MPV (test code = 10.3 fL 9.5-12.9 37518-1) NRBC/100 WBC (test See_Comment [Automat ed code = 5812142707) message] The system which generated this result transmitted reference range : 0.0 - 10.0 /100 WBCs. The refer ence range was not u sed to interpret th is result as normal/abnormal . NRBC x10^3 (test code <0.01 See_Comment [Auto mated = 0938271152) message] The s ystem which generated this result transmitted reference range : 10*3/?L. The reference range was not used to interpret this result as normal/abnormal . GRAN MAT (NEUT) % 58.2 % (test code = 770-8) IMM GRAN % (test code 0.40 % = 5942095852) LYMPH % (test code = 29.6 % 736-9) MONO % (test code = 10.3 % 5905-5) EOS % (test code = 1.1 % 713-8) BASO % (test code = 0.4 % 706-2) GRAN MAT x10^3(ANC) 3.21 10*3/uL 1.88-7.09 (test code = 8786148521) IMM GRAN x10^3 (test <0.03 0.00-0.06 code = 8468468536) LYMPH x10^3 (test code 1.63 10*3/uL 1.32-3.29 = 731-0) MONO x10^3 (test code 0.57 10*3/uL 0.33-0.92 = 742-7) EOS x10^3 (test code = 0.06 10*3/uL 0.03-0.39 711-2) BASO x10^3 (test code <0.03 0.01-0.07 = 704-7) Lab Interpretation Abnormal (test code = 36657-0) [facility]"
[2021-10-08] MEDS ORDERED: MORPHINE 4 MG/ML SYR ONE (16:09)
[2021-10-08] MEDS ORDERED: ONDANSETRON 4 MG/2 ML VIAL ONE (16:10)
[2021-10-08 16:27] LABS: Hematocrit 32.7 % (36.0-45.0); Lymphocytes % 43.3 % (15.3-44.8); MPV 8.8 fL (7.6-11.3); RBC Red Blood Cell Count 3.26 M/uL (3.86-4.86)
[2021-10-08 16:42] LABS: ALT/SGPT 28 U/L (12-78); AST/SGOT 17 U/L (15-37); Albumin 3.7 g/dL (3.4-5.0); Alkaline Phosphatase 71 U/L (45-117); BUN Blood Urea Nitrogen 16 mg/dL (7-18); Bicarbonate 26 mmol/L (21-32); Bilirubin Total 0.3 mg/dL (0.2-1.0); Glucose Level 101 mg/dL (74-106); Lipase 151 U/L (73-393); Potassium 4.3 mmol/L (3.5-5.1); Protein, Total 7.2 g/dL (6.4-8.2); Sodium Level 137 mmol/L (136-145)
[2021-10-08 16:51] LABS: Bilirubin Direct < 0.1 mg/dL (0-0.2)
--- NOTE | 2021-10-08 17:13 | RAD REPORT ---
EXAM DESCRIPTION: CTAbdomen Pelvis W Contrast - 10/08/2021 4:56 pm CLINICAL HISTORY: ABD PAIN COMPARISON: Abdomen Pelvis W Contrast dated 06/18/2021; Abdomen Pelvis W Contrast dated ; Abdomen Pelvis W Contrast dated 03/22/2021; Abdomen Pelvis W Contrast dated 08/23/2020 TECHNIQUE: CT of the abdomen and pelvis was performed. All CT scans are performed using dose optimization technique as appropriate and may include automated exposure control or mA/KV adjustment according to patient size. FINDINGS: Lower chest: Mild circumferential thickening of the distal esophagus . Liver: Mild intrahepatic biliary ductal dilatation. Biliary: Cholecystectomy. Extrahepatic biliary duct dilatation is likely related to a postcholecystec hal state. Stomach: No significant focal abnormality. Duodenum: No significant focal abnormality. Pancreas: No significant abnormality. Spleen: No significant abnormality. Adrenal: No suspicious lesions. Kidney/ureter: No hydronephrosis. No renal calculi. Retroperitoneum: No retroperitoneal adenopathy. Vascular: No aneurysm. Bowel: No significant focal abnormality. Peritoneum: No ascites or free air. Bladder: Grossly unremarkable. Reproductive: No adnexal masses. Hysterectomy . Bones: No acute fracture. Transitional L5 vertebral body. Multilevel degenerative changes are present in the spine. Other: n/a IMPRESSION: No acute intra-abdominal or pelvic finding.
[2021-10-08] MEDS ORDERED: MAGNES/ALUMIN/SIMET 30ML UCUP ONE (17:43)
[2021-10-08] MEDS ORDERED: LIDOCAINE VISCOUS 2% SOLN 15 ML UDC ONE (17:44)
--- NOTE | 2021-10-08 18:10 | ER ---
Nurse's Notes [facility] Name: Radha Santos Age: 61 yrs Sex: Female : 1960 Arrival Date: 10/08/2021 Time: 15:47 Bed 17 Private MD: Diagnosis: Abdominal pain, unspecified;Esophagitis, unspecified Presentation: 10/08 16:01 Coronavirus screen: At this time, the client does not indicate any symptoms associated jd3 with coronavirus-19. Ebola Screen: No symptoms or risks identified at this time. Initial Sepsis Screen: Does the patient meet any 2 criteria? No. Patient's initial sepsis screen is negative. Does the patient have a suspected source of infection? No. Patient's initial sepsis screen is negative. Risk Assessment: Do you want to hurt yourself or someone else? Patient reports no desire to harm self or others. Note "i think it is my stomach ulcer acting up. the pain and nausea is the same as last time. it has been a problem for a long time, but got worse today.". Onset of symptoms was October 08, 2021. 16:01 Acuity: SAURAV 3 jd3 16:01 Method Of Arrival: Wheelchair jd3 16:04 Chief complaint: Patient states: "i think it is my stomach ulcer acting up. the pain jd3 and nausea is the same as last time. it has been a problem for a long time, but got worse today.". Triage Assessment: 16:17 General: Appears in no apparent distress. Behavior is calm, cooperative. baldwin Historical: - Allergies: 16:05 No Known Allergies; jd3 - Home Meds: 16:05 amlodipine 5 mg tab 1 tab once daily [Active]; gabapentin 300 mg Oral cap 2 caps four jd3 times a day [Active]; duloxetine 60 mg Oral cpDR 2 caps every morning [Active]; losartan 50 mg Oral tab 1 tab once daily [Active]; metformin 500 mg Oral tr24 1 tab twice a day [Active]; meloxicam 7.5 mg Oral tab 1 tab once daily [Active]; omeprazole 40 mg Oral cpDR 1 cap once daily [Active]; quetiapine 300 mg Oral tab 1 tab once daily [Active]; simvastatin 20 mg Oral tab 1 tab nightly [Active]; levothyroxine 200 mcg tab 1 tab once daily [Active]; sucralfate 100 mg/mL Oral susp 10 mL 4 times per day [Active]; tizanidine 2 mg Oral cap 1 cap twice a day [Active]; tramadol 50 mg Oral tab 1 tab three times a day [Active]; divalproex 500 mg Oral Tb24 2 tabs nightly [Active]; trazodone 100 mg Oral tab 1-3 tabs at night [Active]; - PMHx: 16:05 GERD; Anxiety; Chronic Abdominal Pain; High Cholesterol; Diabetes - NIDDM; Depression; jd3 Hypertension; CVA; Hypothyroidism; chronic back pain; - PSHx: 16:05 section; Cholecystectomy; Total abdominal hysterectomy; jd3 - Immunization history:: Adult Immunizations up to date. - Social history:: Smoking status: Patient/guardian denies using tobacco, but has a distant history of tobacco abuse. Screenin:17 Abuse screen: Denies threats or abuse. Denies injuries from another. Nutritional baldwin screening: No deficits noted. Tuberculosis screening: No symptoms or risk factors identified. Fall Risk None identified. IV access (20 points). Assessment: 16:17 Pain: Complains of pain in abdomen. GI: Bowel sounds present X 4 quads. Abd is soft baldwin Abdomen is tender to palpation in left upper quadrant and left lower quadrant. Vital Signs: 16:05 BP 167 / 80; Pulse 94; Resp 19 S; Temp 97.4(TE); Pulse Ox 98% on R/A; Weight 86.18 kg jd3 (R); Height 5 ft. 7 in. (170.18 cm) (R); Pain 10/10; 17:17 BP 150 / 80; Pulse 75; Resp 18; Pulse Ox 99% on R/A; baldwin 16:05 Body Mass Index 29.76 (86.18 kg, 170.18 cm) jd3 ED Course: 15:47 Patient arrived in ED. jj6 15:54 Yo Bedolla NP is PHCP. pm1 15:55 Delvis Lr MD is Attending Physician. pm1 16:04 Triage completed. jd3 16:07 Arm band placed on. jd3 16:16 Basic Metabolic Panel Sent. baldwin 16:16 CBC with Diff Sent. baldwin 16:16 Hepatic Function Sent. baldwin 16:16 Lipase Sent. baldwin 16:17 Annalisa Weber, RN is Primary Nurse. baldwin 16:17 Patient has correct armband on for positive identification. Bed in low position. baldwin 16:17 No provider procedures requiring assistance completed. Inserted saline lock: 20 gauge baldwin in right forearm, using aseptic technique. 16:56 CT Abd/Pelvis - IV Contrast Only In Process Unspecified. EDMS 18:16 IV discontinued, intact, Pressure dressing applied. baldwin Administered Medications: 16:16 Drug: morphine 4 mg Route: IVP; Site: right forearm; baldwin 16:16 Follow up: Response: No adverse reaction baldwin 16:16 Drug: Zofran (Ondansetron) 4 mg Route: IVP; Site: right forearm; baldwin 16:16 Follow up: Response: No adverse reaction baldwin 17:42 Drug: GI Cocktail without - (Maalox Suspension 30 ml, Lidocaine Liquid 2 % 15 baldwin ml) Route: PO; 17:42 Follow up: Response: No adverse reaction baldwin Outcome: 18:09 Discharge ordered by MD. pm1 18:16 Discharged to home baldwin 18:16 Condition: good 18:16 Discharge instructions given to patient. 18:25 Patient left the ED. baldwin Signatures: Dispatcher [employer] EDMS Yo Bedolla NP MANDOLIN REPAIRER pm1 Higinio Perez RN RN Toshia Scott jj6 Annalisa Weber RN RN baldwin Corrections: (The following items were deleted from the chart) 16:05 16:01 Note "i think it is my stomach ulcer acting up. the pain and nausea is the same jd3 as last time. it has been a problem for a long time, but got worse today." jd3
--- NOTE | 2021-10-08 18:10 | EDPHYS ---
Physician Documentation [facility] Name: Radha Santos Age: 61 yrs Sex: Female : 1960 Arrival Date: 10/08/2021 Time: 15:47 Bed 17 Private MD: ED Physician Delvis Lr HPI: 10/08 16:02 This 61 yrs old Female presents to ER via Wheelchair with complaints of Abdominal pm1 Cramping. 16:02 The patient presents with abdominal pain in the epigastric area. Onset: The pm1 symptoms/episode began/occurred 4- 5 months. The symptoms do not radiate. Associated signs and symptoms: none. Pertinent negatives: nausea, vomiting, and diarrhea, chest pain, dysuria, fever, shortness of breath. The symptoms are described as burning. Modifying factors: The symptoms are alleviated by nothing, the symptoms are aggravated by nothing. Severity of pain: in the emergency department the pain is actually worse. The patient has experienced similar episodes in the past, chronically. The patient has been recently seen by a physician: with similar presenting complaints, Has planned EGD with GI next week. Historical: - Allergies: 16:05 No Known Allergies; jd3 - Home Meds: 16:05 amlodipine 5 mg tab 1 tab once daily [Active]; gabapentin 300 mg Oral cap 2 caps four jd3 times a day [Active]; duloxetine 60 mg Oral cpDR 2 caps every morning [Active]; losartan 50 mg Oral tab 1 tab once daily [Active]; metformin 500 mg Oral tr24 1 tab twice a day [Active]; meloxicam 7.5 mg Oral tab 1 tab once daily [Active]; omeprazole 40 mg Oral cpDR 1 cap once daily [Active]; quetiapine 300 mg Oral tab 1 tab once daily [Active]; simvastatin 20 mg Oral tab 1 tab nightly [Active]; levothyroxine 200 mcg tab 1 tab once daily [Active]; sucralfate 100 mg/mL Oral susp 10 mL 4 times per day [Active]; tizanidine 2 mg Oral cap 1 cap twice a day [Active]; tramadol 50 mg Oral tab 1 tab three times a day [Active]; divalproex 500 mg Oral Tb24 2 tabs nightly [Active]; trazodone 100 mg Oral tab 1-3 tabs at night [Active]; - PMHx: 16:05 GERD; Anxiety; Chronic Abdominal Pain; High Cholesterol; Diabetes - NIDDM; Depression; jd3 Hypertension; CVA; Hypothyroidism; chronic back pain; - PSHx: 16:05 section; Cholecystectomy; Total abdominal hysterectomy; jd3 - Immunization history:: Adult Immunizations up to date. - Social history:: Smoking status: Patient/guardian denies using tobacco, but has a distant history of tobacco abuse. ROS: 16:02 Constitutional: Negative for fever, chills, and weight loss, Cardiovascular: Negative pm1 for chest pain, palpitations, and edema, Respiratory: Negative for shortness of breath, cough, wheezing, and pleuritic chest pain. 16:02 Back: Negative for injury and pain, MS/Extremity: Negative for injury and deformity, Skin: Negative for injury, rash, and discoloration, Neuro: Negative for headache, weakness, numbness, tingling, and seizure. 16:02 Abdomen/GI: Positive for abdominal pain, Negative for nausea, vomiting, and diarrhea. 16:02 All other systems are negative. Exam: 16:02 Constitutional: This is a well developed, well nourished patient who is awake, alert, pm1 and in no acute distress. Head/Face: Normocephalic, atraumatic. 16:02 Back: No spinal tenderness. No costovertebral tenderness. Full range of motion. Skin: Warm, dry with normal turgor. Normal color with no rashes, no lesions, and no evidence of cellulitis. MS/ Extremity: Pulses equal, no cyanosis. Neurovascular intact. Full, normal range of motion. 16:02 Cardiovascular: Exam negative for acute changes, Rate: normal, Rhythm: regular, Pulses: no pulse deficits are appreciated, Heart sounds: normal. 16:02 Respiratory: Exam negative for acute changes, respiratory distress, shortness of breath, Breath sounds: are clear throughout. 16:02 Abdomen/GI: Inspection: obese Palpation: abdomen is soft and non-tender, in all quadrants. 16:02 Neuro: Exam negative for acute changes, Orientation: is normal, Mentation: is normal, Motor: is normal. Vital Signs: 16:05 BP 167 / 80; Pulse 94; Resp 19 S; Temp 97.4(TE); Pulse Ox 98% on R/A; Weight 86.18 kg jd3 (R); Height 5 ft. 7 in. (170.18 cm) (R); Pain 10/10; 17:17 BP 150 / 80; Pulse 75; Resp 18; Pulse Ox 99% on R/A; baldwin 16:05 Body Mass Index 29.76 (86.18 kg, 170.18 cm) jd3 MDM: 16:02 Patient medically screened. pm1 18:06 Data reviewed: vital signs. Data interpreted: Pulse oximetry: on room air is 99 %. pm1 Interpretation: normal. Counseling: I had a detailed discussion with the patient and/or guardian regarding: the historical points, exam findings, and any diagnostic results supporting the discharge/admit diagnosis, lab results, radiology results, the need for outpatient follow up, a bleacher pulp, for EGD as scheduled next week, to return to the emergency department if symptoms worsen or persist or if there are any questions or concerns that arise at home. 10/08 16:01 Order name: Basic Metabolic Panel; Complete Time: 16:56 pm1 10/08 16:01 Order name: CBC with Diff; Complete Time: 16:56 pm1 10/08 16:01 Order name: Hepatic Function; Complete Time: 16:56 pm1 03 16:01 Order name: Lipase; Complete Time: 16:56 pm1 0305 16:01 Order name: CT Abd/Pelvis - IV Contrast Only; Complete Time: 17:26 pm1 03 16:01 Order name: IV Saline Lock; Complete Time: 16:16 pm1 03 16:01 Order name: Labs collected and sent; Complete Time: 16:16 pm1 Administered Medications: 16:16 Drug: morphine 4 mg Route: IVP; Site: right forearm; baldwin 16:16 Follow up: Response: No adverse reaction baldwin 16:16 Drug: Zofran (Ondansetron) 4 mg Route: IVP; Site: right forearm; baldwin 16:16 Follow up: Response: No adverse reaction baldwin 17:42 Drug: GI Cocktail without - (Maalox Suspension 30 ml, Lidocaine Liquid 2 % 15 baldwin ml) Route: PO; 17:42 Follow up: Response: No adverse reaction baldwin Disposition: 10/09 07:23 Co-signature as Attending Physician, Delvis Lr MD. rn Disposition Summary: 10/08/21 18:09 Discharge Ordered Location: Home pm1 Problem: new pm1 Symptoms: have improved pm1 Condition: Stable pm1 Diagnosis - Abdominal pain, unspecified pm1 - Esophagitis, unspecified pm1 Followup: pm1 - With: Emergency Department - When: As needed - Reason: Worsening of condition Followup: pm1 - With: Private Physician - When: 2 - 3 days - Reason: Recheck today's complaints, Continuance of care, Re-evaluation by your physician Discharge Instructions: - Discharge Summary Sheet pm1 - Abdominal Pain, Adult pm1 - Esophagitis pm1 Forms: - Medication Reconciliation Form pm1 - Thank You Letter pm1 - Antibiotic Education pm1 - Prescription Opioid Use pm1 Signatures: Dispatcher [employer] EDMS Delvis Lr MD MD rn Marinas, Patrick, NP CHEMICAL RESEARCH TECHNICIAN pm1 Higinio Perez RN RN jd3 Annalisa Weber RN RN baldwin
[2021-10-08 18:41] VITALS: TEMP 97.4
[2021-10-08 18:43] VITALS: BP 150/80; O2SAT 99
== END 2021-10-08 18:25 | disposition home or self-care (01) ==
LOC: ER 15:44
DX: K20.90 Esophagitis, unspecified without bleeding (principal); E11.9 Type 2 diabetes mellitus without complications; I10 Essential (primary) hypertension; F41.8 Other specified anxiety disorders
CPT/HCPCS: 85025; 80048; 36415; 82565; 80076; 83690; 74177; 96375; 96374; 99284; Q9967; J2405

== ENCOUNTER 2021-10-14 08:50 | Day surgery (SDC) | payer OTHER ==
--- NOTE | 2021-10-11 10:07 | RAD REPORT ---
EXAM DESCRIPTION: RAD - Chest Pa And Lat (2 Views) - 10/11/2021 10:00 am CLINICAL HISTORY: PRE OP FOR SURGERY Chest pain. COMPARISON: Chest Single View dated 06/18/2021; Chest Single View dated 04/04/2021; Chest Single View dated 08/23/2020; Abdomen 1 View (KUB) dated 09/30/2019 FINDINGS: The lungs are clear. The heart is normal in size. No displaced fractures. Small hiatal her robert.
[2021-10-11 10:19] LABS: Absolute Lymphocytes (CBC) 1.5 K/uL (0.7-4.9); Hematocrit 36.1 % (36.0-45.0); Lymphocytes % 28.1 % (15.3-44.8); MPV 9.1 fL (7.6-11.3); RBC Red Blood Cell Count 3.61 M/uL (3.86-4.86)
[2021-10-11 10:23] LABS: Protime INR 0.92
[2021-10-11 10:33] LABS: Potassium 4.5 mmol/L (3.5-5.1)
--- NOTE | 2021-10-11 12:49 | EKG ---
Test Date: 2021-10-11 Test Time: 09:41:25 Water Gas Operator: ARELY MEASUREMENT RESULTS: Intervals: Rate: 97 IL: 178 QRSD: 92 QT: 354 QTc: 449 [place]: P: -1 IL: 178 QRS: 32 T: 4 INTERPRETIVE STATEMENTS: Normal sinus rhythm Normal ECG Compared to ECG 06/18/2021 15:10:58 No significant changes Electronically Signed On 10-11-21 12:49:19 CONTAINER COORDINATOR by Davon Frank
[2021-10-14] MEDS ORDERED: LIDOCAINE 2% MPF 5 ML VIAL ONE (09:06)
[2021-10-14] MEDS ORDERED: NS 0.9% VIAL 30 ML ONE (09:06)
[2021-10-14] MEDS ORDERED: propofoL 200 MG/20 ML VIAL IV ONE (09:06)
[2021-10-14] MEDS ORDERED: FENTANYL CITR 100 MCG/2 ML ONE (09:06)
[2021-10-14] MEDS ORDERED: MIDAZOLAM HCL 2 MG/2 ML INJ ONE (09:06)
[2021-10-14] MEDS ORDERED: LIDOCAINE 1% MPF 30 ML VIAL ONE (09:07)
[2021-10-14] MEDS ORDERED: NA CHLORIDE 0.9% 50 ML ONE (09:16)
[2021-10-14] MEDS ORDERED: NA CHLORIDE 0.9% 1,000 ML ONE (09:16)
[2021-10-14] MEDS ORDERED: ACETAMINOPHEN 500 MG TAB ONE (09:43)
[2021-10-14] MEDS: BUPIVACAINE 0.25% PF 10 ML VIAL ONE ×3 (09:49→10:50)
[2021-10-14] MEDS: CEFAZOLIN SODIUM 1 GM/VIAL ONE ×2 (09:49→10:17)
[2021-10-14] MEDS ORDERED: ONDANSETRON 4 MG/2 ML VIAL ONE ×3 (10:11→11:54)
--- NOTE | 2021-10-14 11:14 | P.BOP ---
Preoperative diagnosis: right carpal tunnel syndrome Postoperative diagnosis: same Primary procedure: right open carpal tunnel release Supervisor Rides: NONE,NONE Estimated blood loss: 3 cc Specimen: none Findings: see dictation Anesthesia: General Complications: None Implants: none Fluids & blood products: per anesthesia; TT: 16 mins @ 250 mmHg Transferred to: Recovery Room Condition: Good
[2021-10-14] MEDS: HYDROMORPHONE HCL 1 MG/ML INJ ONE ×2 (11:20→11:25)
[2021-10-14] MEDS ORDERED: CODEINE 30MG/APAP 300MG TAB ONE (11:50)
[2021-10-14 13:33] VITALS: BP 129/85; O2SAT 98
[2021-10-14 13:36] VITALS: TEMP 97
--- NOTE | 2021-10-18 03:25 | OP ---
Date of Procedure: 10/14/2021 Surgeon: Corona Acuna MD Preoperative Diagnosis: Right carpal tunnel syndrome. Postoperative Diagnosis: Right carpal tunnel syndrome. Procedure Performed: Right open carpal tunnel release. Anesthesia: General LMA. Fluids: Per Anesthesia record. Estimated Blood Loss: 3 cc. Complications: None. Implants: None. Tourniquet Time: Was 60 minutes at 250 mmHg. Indication For Procedure: Radha is a 61-year-old female who presented to my clinic with signs, sympt oms, and EMG findings consistent with right carpal tunnel syndrome. It was discussed with the patien t at length risks and benefits associated with operative and nonoperative treatment and she expressed understanding and wished to proceed with operative treatment. Description Of Procedure: After informed consent was obtained, the patient was identified in the pre operative holding area. The right upper extremity was marked. The patient was then brought back to the operating room, transferred on the operative table supine fashion and placed under general LMA an esthesia. Right upper extremity was then prepped and draped in usual sterile fashion. A time-out wa s initiated, correct patient and procedure were confirmed and identified. The patient did receive pr eoperative prophylactic antibiotics. The right upper extremity was exsanguinated using an Esmarch an d the tourniquet was inflated to 250 mmHg. Approximately, a 3 cm longitudinal incision was made just ulnar to the thenar crease. Dissection was then taken down to palmar fascia, which was identified. A Yorklyn elevator was placed deep to the palmar fascia to protect the median nerve at all times and a 15 blade was then used to release palmar fascia and transverse carpal ligament. Under direct visual ization, Yorklyn elevator was used to protect the median nerve at all times. Any remaining fascial ban ds were then released using blunt-tip Metzenbaum's aimed superficially. The wound was then irrigated thoroughly with normal saline. Skin was approximated using 5-0 Prolene. Sterile dressings were emperatriz lied. Tourniquet was let down. The patient is awakened and transferred to PACU in stable condition. Postoperative Plan: The patient may begin working on range of motion exercises. She will follow up in 1 week for re-evaluation and removal of sutures. CV/MODL Voice ID: [id number] Report ID: [id number]
== END 2021-10-14 12:38 | disposition home or self-care (01) ==
LOC: OR 08:50
PROVIDERS: ATTEND Orthopaedic Surgery Sports Medicine
PROC: 01N50ZZ Release Median Nerve, Open Approach (ICD-10-PCS; principal; 2021-10-14 10:30)
DX: G56.01 Carpal tunnel syndrome, right upper limb (principal); M79.641 Pain in right hand; E03.9 Hypothyroidism, unspecified; D64.9 Anemia, unspecified; E11.9 Type 2 diabetes mellitus without complications; I10 Essential (primary) hypertension
CPT/HCPCS: 93005; 85025; 80048; 36415; 85610; 82947; 85730; 71046; 64721; J2704; J2250; J3010; J1170; J7030; J2405 ×3; J0690

== ENCOUNTER 2021-12-28 15:52 | Emergency (ER) | payer OTHER ==
--- OUTSIDE RECORDS SUMMARY | 2021-12-28 15:56 | XMS REPORT | Continuity of Care Document ---
:1960 Author Organization [facility] t Address [address] [place] [address] Care Team Providers Name Role Phone KYLER VILLARREAL Primary Care Physician Unavailable Bharti REYNA Attending Clinician Unavailable Kong Attending Clinician Unavailable Florencio Attending Clinician Unavailable Estefany Attending Clinician Unavailable Jodi Lobo Attending Clinician Unavailable DARIEL S Attending Clinician Unavailable Singer JOHNSON Attending Clinician Dariel DAY, S Attending Clinician Bharti Reyna MD Attending Clinician Only, Test Attending Clinician Unavailable Doctor Unassigned, Name Attending Clinician Unavailable Radiology Attending Clinician Unavailable RADIOLOGY Attending Clinician Unavailable Celso ALEGRE Attending Clinician ECLSO Attending Clinician Unavailable Sebastián ABARCA L Attending Clinician Unavailable Shari Kramer Attending Clinician Renée LEMUS Attending Clinician Ross LEMUS Attending Clinician Robbie CR Attending Clinician Maribel Moody MD Attending Clinician Florinda Lau MD Attending Clinician Florinda LAU Attending Clinician Unavailable Min PACHECO Attending Clinician Unavailable Esther JORDAN Attending Clinician Unavailable Bharti REYNA Admitting Clinician Unavailable Jodi Lobo Admitting Clinician Unavailable Admitting Clinician Unavailable Bharti Reyna MD Admitting Clinician Ross LEMUS Admitting Clinician Payers Payer Name Policy Type Policy Number Effective Date Expiration Date [facility] [id number] 2020 [facility] 00:00:00 PPO HUMANA CHOICE [id number] 2013 00:00:00 Problems Condition Condition Condition Status Onset Resolution Last Treating Co mments Source Name Details Category Date Date Treatment Clinician Date Sinus Sinus Disease Active Univers tachycardi tachycardi 6-20 it y of a a 00:: [place] [facility] Anemia Anemia Disease Active Univers 6-20 ity of 00:00: [place] [facility] Essential Essential Disease Active Uni vers hypertensi hypertensi 6-20 it y of on on 00:00: [place] [facility] Type 2 Type 2 Disease Active Univers diabetes diabetes 6-20 ity of mellitus mellitus 00:00: [place] without without 00 Medical complicati complicati Br anch on, on, without without long-term long-term current current use of use of insulin insulin Colitis Colitis Disease Active Univers 6-16 ity of 00:00: [place] [facility] Obesity Obesity Disease Active Univers (BMI (BMI 6-16 ity of 30-39.9) 30-39.9) 00:00: [place] [facility] Allergies, Adverse Reactions, Alerts Allergy Allergy Status Severity Reaction(s) Onset Inactive Treating Comm ents Source Name Type Date Date Clinician No Known DA Active U [facility] Allergie 3-13 [place] [facility] 00:00: Health 00 are [place] Monistat Adverse Active vaginal Common 1 Reaction swelling [facility] Latex Adverse Active rash Common Gloves Reaction [facility] NO KNOWN Drug Active Univers ALLERGIE Class ity of S [facility] Social History Social Habit Start Date Stop Date Quantity Comments Source Exposure to Not sure [facility] SARS-CoV-2 (event) Medica l Branch Alcohol intake 2021-08-02 2021-08-02 0 /d [facility] 00:00:00 00:00:00 [facility] Branch Sex Assigned At [birth year] [facility] 00:00:00 00:00:00 Medical Branch Smoking Status Start Date Stop Date Source Never smoker [facility] Medications Ordered Filled Start Stop Current Ordering Indication Dosage Frequency Signature Comments Components Source Medication Medication Date Date Medication? Clinician (SIG) Name Name acetaminoph 2020-08- No 1{tbl} 1 tablet, Univers en-codeine 10-03 Oral, ity of (TYLENOL 23:00: 22:01 ONCE, 1 [place] #3) 300-30 00 :00 dose, On Medic al mg tablet 1 Tue Branch tablet 08/02/21 at 1700, PRINCE acetaminoph 2020-08 Yes acetaminop Univers en-codeine 10-03 hen 300 ity of 300-30 mg 18:05: mg-codeine [facility] tablet 42 30 mg Medical tablet Branch TAKE 1 TABLET BY MOUTH TWICE DAILY NEEDED traZODone 2020-08 Yes trazodone Uni vers 150 mg 10-03 150 mg ity of tablet 18:05: tablet [place] [id number] TAKE 1 TO Medical 2 TABLETS Branch BY MOUTH EVERY NIGHT AT BEDTIME NEEDED FOR INSOMNIA traMADoL 50 2020-08 Yes tramadol Un yan mg tablet 10-03 50 mg ity of 18:05: tablet [place] 42 TAKE 1 Medical TABLET BY Branch MOUTH THREE TIMES DAILY sucralfate 2020-08 Yes sucralfate U nivers 1 gram 10-03 1 gram ity of tablet 18:05: tablet [place] 42 TAKE 1 Medical TABLET BY Branch MOUTH BEFORE MEALS AND AT BEDTIME spironolact 2020-08 Yes spironolac Univers one 25 mg 10-03 tone 25 mg ity of tablet 18:05: tablet [place] 42 TAKE 1 Medical TABLET BY Branch MOUTH EVERY DAY SITagliptin 2020-08 Yes Januvia Uni vers (JANUVIA) 2- 100 mg ity of 100 mg 18:05: tablet [place] tablet 42 TAKE 1 Medical TABLET BY Branch MOUTH EVERY DAY FOR 16 DAYS QUEtiapine 2020-08 Yes quetiapine U nivers 300 mg - 300 mg ity of tablet 18:05: tablet [place] 42 TAKE 1 Medical TABLET BY Branch MOUTH EVERY EVENING 1 TO 1.5 HOUR PRIOR TO BEDTIME WITH 300 CALORIES SNACK QUEtiapine 2020-08 Yes quetiapine U nivers 200 mg - 200 mg ity of tablet 18:05: tablet [place] 42 TAKE 1 Medical TABLET BY Branch MOUTH TWICE DAILY pantoprazol 2020-08 Yes pantoprazo Univers e 40 mg EC 10-03 le 40 mg ity o f tablet 18:05: tablet,del [place] 42 ayed Medical release [place] TAKE 1 TABLET BY MOUTH EVERY DAY montelukast 2020-08 Yes montelukas Univers 10 mg - t 10 mg ity of tablet 18:05: tablet [place] 42 TAKE 1 Medical TABLET BY Branch MOUTH EVERY DAY IN THE EVENING methocarbam 2020-08 Yes methocarba Univers oL 500 mg - mol 500 mg ity of tablet 18:05: tablet [place] 42 TAKE 1 Medical TABLET BY Branch MOUTH THREE TIMES DAILY FOR 5 DAYS meloxicam 2020-08 Yes meloxicam Uni vers 15 mg 10-03 15 mg ity of tablet 18:05: tablet [place] 42 TAKE 1 Medical TABLET BY Branch MOUTH EVERY DAY losartan 50 2020-08 Yes losartan Un yan mg tablet 10-03 50 mg ity of 18:05: tablet [place] 42 TAKE 1 Medical TABLET BY Branch MOUTH TWICE DAILY levothyroxi 2020-08 Yes levothyrox Univers ne 175 mcg - ine 175 ity of tablet 18:05: mcg tablet [place] 42 TAKE 1 Medical TABLET BY Branch MOUTH EVERY MORNING gabapentin 2020-08 Yes gabapentin U nivers 300 mg 2- 300 mg ity of capsule 18:05: capsule [place] 42 TAKE 1 Medical CAPSULE BY Branch MOUTH AT BEDTIME DULoxetine 2020-08 Yes duloxetine U nivers 60 mg - 60 mg ity of capsule 18:05: capsule,[place] 42 layed Medical release [place] TAKE 1 CAPSULE BY MOUTH TWICE DAILY divalproex 2020-08 Yes divalproex U nivers 500 mg EC 2-28 500 mg ity of tablet 18:05: tablet,del [place] 42 ayed Medical release Branch TAKE 1 TABLET BY MOUTH DAILY amLODIPine 2020-08 Yes amlodipine U nivers 5 mg tablet 2-28 5 mg ity of 18:05: tablet [place] 42 TAKE 1 Medical TABLET BY Branch MOUTH TWICE DAILY fluticasone 2020-08- No 1{puff} Inhale 1 Univers -vilanterol 2 12-28 Puff ity of (BREO 15:50: 00:00 daily. [place] ELLIP) 29 :00 Medical 100-25 Branch mcg/dose DsDv MULTIVITAMI 2020-08- No 1{tbl} Take 1 Tab Univers N ORAL 10-03 12-28 by mouth ity of 15:50: 00:00 daily. [place] 29 :00 [facility] Branch KCL 2020-08- No 40meq 40 mEq, Univers (KLOR-CON 0-04 10-04 Oral, ity of M20) tablet 20:30: 19:23 [place]CE[place] 1 [place] 40 mEq 00 :00 dose, On Medical Mon Branch 05/09/21 at 1530, PRIN[place] iopamidol 2020-08- No [id number] 120mL 120 mL, Univers (ISOVUE 0-04 10-04 Intravenou ity o f 370-500 mL) 20:10: 20:25 s, ONCE, 1 [place] injection 00 :00 dose, On Medica l 120 mL Mon Branch 05/09/21 at 1530, Routine HYDROcodone 2020-08 No 1{tbl} 1 tablet, Univers -acetaminop 0-04 10-04 Oral, ity of hen (NORCO) 19:45: 18:46 [place]CE[place] 10-325 mg 00 :00 dose, On Medica l tablet 1 [facility] Branch tablet 05/09/21 at 1445, Routine methocarbam 2020-08- No [id number] 500mg Take 1 Univers oL 500 mg 0-04 10-10 tablet by ity of tablet 00:00: 04:59 mouth 3 [place] 00 :00 (three) Medical times Branch daily for 5 days. simethicone Yes PRN, Univer s (GAS RELIEF 9-29 Starting ity of (SIMETHICON 17:36: on Wed [place] E)) 40 00 05/04/21 at Medical mg/0.6 mL 1236, Branch drops Until Discontinu ed, Routine, Intra-op simethicone 2020- No PRN, Unive rs (GAS RELIEF 05-04 Starting ity of (SIMETHICON 17:36: 23:11 on Sun as E)) 40 00 :59 05/04/21 at Medical mg/0.6 mL 1236, Branch drops Until Sun05/04/21 at 1811, Routine, Intra-op fluticasone 0 Yes 1{puff} Inhale 1 Univers -vilanterol 9-29 Puff ity of (BREO 16:11: daily. [facility]) Medical 100-25 Branch mcg/dose DsDv metFORMIN Yes 500mg Take 500 Uni vers (GLUCOPHAGE 9-29 mg by ity of ) 500 mg 16:11: mouth 2 [place] tablet 56 (two) Medical times [place] daily with meals. MULTIVITAMI Yes 1{tbl} Take 1 Tab Univers N ORAL 9-29 by mouth ity of 16:11: daily. [address] simvastatin Yes 20mg Take 20 mg Univers (ZOCOR) 20 9-29 by mouth ity o f mg tablet 16:11: at [place] [address] bedtime. [facility] fluticasone Yes 1{puff} Inhale 1 Univers -vilanterol 9-29 Puff ity of (BREO 16:11: daily. [place] ELLIP) Medical 100-25 Branch mcg/dose DsDv metFORMIN Yes 500mg Take 500 Uni vers (GLUCOPHAGE 9-29 mg by ity of ) 500 mg 16:11: mouth 2 [place] tablet 56 (two) Medical times [place] daily with meals. MULTIVITAMI Yes 1{tbl} Take 1 Tab Univers N ORAL 9-29 by mouth ity of 16:11: daily. [address] simvastatin Yes 20mg Take 20 mg Univers (ZOCOR) 20 9-29 by mouth ity o f mg tablet 16:11: at [place] [address] bedtime. Medical Branch fluticasone 0 Yes 1{puff} Inhale 1 Univers -vilanterol 9-29 Puff ity of (BREO 16:11: daily. [place] ELLIP) 56 Medical 100-25 Branch mcg/dose DsDv metFORMIN 0 Yes 500mg Take 500 Uni vers (GLUCOPHAGE 9-29 mg by ity of ) 500 mg 16:11: mouth 2 [place] tablet 56 (two) Medical times Branch daily with meals. MULTIVITAMI 0 Yes 1{tbl} Take 1 Tab Univers N ORAL 9-29 by mouth ity of 16:11: daily. [place] [address] Medical Branch simvastatin 0 Yes 20mg Take 20 mg Univers (ZOCOR) 20 9-29 by mouth ity o f mg tablet 16:11: at [place] [address] bedtime. Medical Branch metFORMIN 0 Yes 500mg Take 500 Uni vers (GLUCOPHAGE 9-29 mg by ity of ) 500 mg 16:11: mouth 2 [place] tablet 56 (two) Medical times Branch daily with meals. simvastatin Yes 20mg Take 20 mg Univers (ZOCOR) 20 9-29 by mouth ity o f mg tablet 16:11: at [place] [address] bedtime. Medical Branch fluticasone Yes 1{puff} Inhale 1 Univers -vilanterol 6-25 Puff ity of (BREO 14:53: daily. [place] ELLIP) 30 Medical 100-25 Branch mcg/dose DsDv metFORMIN 0 Yes 500mg Take 500 Uni vers (GLUCOPHAGE 6-25 mg by ity of ) 500 mg 14:53: mouth 2 [place] tablet 30 (two) Medical times [place] daily with meals. MULTIVITAMI Yes 1{tbl} Take 1 Tab Univers N ORAL 6-25 by mouth ity of 14:53: daily. [place] 30 Medical Branch simvastatin 0 Yes 20mg Take 20 mg Univers (ZOCOR) 20 6-25 by mouth ity o f mg tablet 14:53: at [place] 30 bedtime. Medical Branch fluticasone 0 Yes 1{puff} Inhale 1 Univers -vilanterol 6-25 Puff ity of (BREO 14:53: daily. [place] ELLIP) 30 Medical 100-25 Branch mcg/dose DsDv metFORMIN 0 Yes 500mg Take 500 Uni vers (GLUCOPHAGE 6-25 mg by ity of ) 500 mg 14:53: mouth 2 [place] tablet 30 (two) Medical times Branch daily with meals. MULTIVITAMI Yes 1{tbl} Take 1 Tab Univers N ORAL 6-25 by mouth ity of 14:53: daily. [place] 30 Medical Branch simvastatin 0 Yes 20mg Take 20 mg Univers (ZOCOR) 20 6-25 by mouth ity o f mg tablet 14:53: at [place] 30 bedtime. Medical Branch dicyclomine Yes [id number] 10mg Take 1 Univers 10 mg 6-25 capsule by ity of capsule 00:00: mouth 3 [place] (three) Medical times Branch daily as needed for Abdominal pain. loperamide Yes [id number] 2mg Take 1 U nivers 2 mg 6-25 capsule by ity of capsule 00:00: mouth [place] 00 every 4 Medical (four) Branch hours as needed for Diarrhea. dicyclomine Yes [id number] 10mg Take 1 Univers 10 mg 6-25 capsule by ity of capsule 00:00: mouth [place] (three) Medical times Branch daily as needed for Abdominal pain. loperamide Yes [id number] 2mg Take 1 U nivers 2 mg 6-25 capsule by ity of capsule 00:00: mouth [place] 00 every 4 Medical (four) Branch hours as needed for Diarrhea. dicyclomine Yes [id number] 10mg Take 1 Univers 10 mg 6-25 capsule by ity of capsule 00:00: mouth 3 [place] (three) Medical times Branch daily as needed for Abdominal pain. loperamide Yes [id number] 2mg Take 1 U nivers 2 mg 6-25 capsule by ity of capsule 00:00: mouth [place] 00 every 4 Medical (four) Branch hours as needed for Diarrhea. dicyclomine Yes [id number] 10mg Take 1 Univers 10 mg 6-25 capsule by ity of capsule 00:00: mouth 3 [place] (three) Medical times Branch daily as needed for Abdominal pain. loperamide Yes [id number] 2mg Take 1 U nivers 2 mg 6-25 capsule by ity of capsule 00:00: mouth [place] 00 every 4 Medical (four) Branch hours as needed for Diarrhea. dicyclomine 2021-0 Yes [id number] 10mg Take 1 Univers 10 mg 6-25 capsule by ity of capsule 00:00: mouth 3 [place] 00 (three) Medical times Branch daily as needed for Abdominal pain. loperamide 2020-0 Yes [id number] 2mg Take 1 U nivers 2 mg 6-25 capsule by ity of capsule 00:00: mouth [place] 00 every 4 Medical (four) Branch hours as needed for Diarrhea. dicyclomine 2020-0 Yes [id number] 10mg Take 1 Univers 10 mg 6-25 capsule by ity of capsule 00:00: mouth 3 [place] 00 (three) Medical times Branch daily as needed for Abdominal pain. loperamide 2020-0 Yes [id number] 2mg Take 1 U nivers 2 mg [...] Levothyroxi Levothyroxi 2019-0 Yes Ruth 1 tablet Common ne Sodium ne Sodium 4-07 [place] in the Sp coretta 00:00: morning on - [facility] [address] [facility] Levothyroxi Levothyroxi Yes Ruth 1 tablet Common ne Sodium ne Sodium [place] in the Sp coretta morning on - [facility] an empty [facility] daily Gabapentin Gabapentin Yes Ruth TK 2 Co mmon [place] CAPSULES Spirit PO QID PRN - [facility] Ondansetron Ondansetron Yes Ruth TK 1 T PO Common HCl HCl [place] QD FOR 10 Spirit DAYS PRN [facility] Duloxetine Duloxetine Yes Ruth not Co mmon HCl HCl Jera[place] defined [facility] Breo Breo Yes Ruth 1 puff Common Ellipta Ellipta Jerauld [facility] Topiramate Topiramate Yes Ruth 1 tablet Common [place] Spirit [facility] Albuterol Albuterol Yes Ruth 3 ml as C ommon Sulfate Sulfate [place]era[place] needed [facility] Trazodone Trazodone Yes Ruth TK 1 TO 2 Common HCl HCl [place] TS PO HS Spirit PRF - [facility] INSOMNIA [facility] Tizanidine Tizanidine Yes Ruth 1 tablet Common HCl HCl [place]era[place] as needed [facility] Norvasc Norvasc Yes Ruth 1 tablet Comm on [place]era[place] [facility] Estradiol Estradiol Yes Ruth as Comm on [place]era[place] directed [facility] Sucralfate Sucralfate Yes Ruth 1 tablet Common [place] on an Spirit empty - CHI stomach [facility] Nystatin Nystatin Yes Ruth 1 Common [place] applicatio [facility] n [facility] Albuterol Albuterol Yes Ruth INL 2 PFS Common Sulfate HFA Sulfate HFA [place] PO Q 6 H Spirit PRN [facility] Meloxicam Meloxicam Yes Ruth TK 1 T PO Common [place] QD [facility] Loratadine Loratadine Yes Ruth TK 1 T PO Common [place] QD FOR Spirit ALLERGIES [facility] Simvastatin Simvastatin Yes Ruth 1 tablet Common [place] in the Spirit evening [facility] Pantoprazol Pantoprazol Yes Ruth 1 tablet Common e Sodium e Sodium Jerauld [facility] Lorazepam Lorazepam Yes Ruth 1 tablet Common [place] at bedtime Spirit as needed - [facility] Metformin Metformin Yes Ruth TAKE 1 Co mmon HCl HCl [place] TABLET BY [facility] MOUTH - CHI TWICE St DAILY WITH [facility] Divalproex Divalproex Yes Ruth 1 tablet Common Sodium ER Sodium ER Jerauld Spir [facility] Quetiapine Quetiapine Yes Ruth 1 tablet Common Fumarate Fumarate [place]era[place] at bedtime [facility] Tramadol Tramadol Yes Ruth 1 tablet Co mmon HCl HCl [place] as needed [facility] Botox Botox Yes Ruth as Common [place] directed [facility] Januvia Januvia Yes Ruth 1 tablet Comm on Jerauld [facility] Divalproex Divalproex Yes Ruth 3 tabs Common Sodium ER Sodium ER Jerauld Spir [facility] Simvastatin Simvastatin Yes Ruth TAKE 1 Common [place] TABLET BY Spirit MOUTH - CHI EVERY DAY St IN THE [facility] Losartan Losartan Yes Ruth 1 tablet Co mmon Potassium Potassium Jerauld Spir [facility] Oxybutynin Oxybutynin 2020- No Ruth 1 tablet Common Chloride Chloride 10-31 Jerauld Spiri t 00:00 - CHI :00 [facility] Immunizations Ordered Immunization Filled Immunization Date Status Commen ts Source Name Name Pneumovax Pneumovax 2019-06-09 Completed Common [facility] 00:00:00 [facility] Flucelvax - single Flucelvax - single 2019-05-30 Completed [facility] dose syringe dose syringe 00:00:00 [facility] Prevnar 13 Prevnar 13 2018-05-09 Completed Common [facility] -Pneumonia Vaccine -Pneumonia Vaccine 00:00:00 [facility] Vital Signs Vital Name Observation Time Observation Value Comments Source Systolic blood 2021-08-02 18:55:00 132 mm[Hg] Univer sity pressure [facility] Diastolic blood 2021-08-02 18:55:00 92 mm[Hg] [facility] Heart rate 2021-08-02 18:55:00 102 /min [facility] Body temperature 2021-08-02 18:55:00 36.44 Natalia [facility] Respiratory rate 2021-08-02 18:55:00 18 /min [facility] Body weight 2021-08-02 18:55:00 86.183 kg [facility] [place] [facility] BMI 2021-08-02 18:55:00 30.68 kg/m2 [facility] [place] [facility] Oxygen saturation in 2021-08-02 18:55:00 100 /min University of Arterial blood by [facility] Pulse oximetry Branch Systolic blood 2021-05-09 22:00:00 165 mm[Hg] Univer sity of pressure [place] [facility] Diastolic blood 2021-05-09 22:00:00 84 mm[Hg] Unive rsity of pressure [place] [facility] Heart rate 2021-05-09 22:00:00 87 /min [facility] [place] [facility] Body temperature 2021-05-09 22:00:00 36.89 Natalia Univ ersity of [place] [facility] Respiratory rate 2021-05-09 22:00:00 20 /min Univ ersity of [place] [facility] Oxygen saturation in 2021-05-09 22:00:00 98 /min University of Arterial blood by [facility] Pulse oximetry Branch Body weight 2021-05-09 15:55:00 105.235 kg [facility] [place] [facility] BMI 2021-05-09 15:55:00 37.46 kg/m2 [facility] [place] [facility] Systolic blood 2021-05-04 19:25:00 150 mm[Hg] Univer sity of pressure [place] [facility] Diastolic blood 2021-05-04 19:25:00 72 mm[Hg] Unive rsity of pressure [place] [facility] Respiratory rate 2021-05-04 19:15:00 20 /min Univ ersity of [place] [facility] Heart rate 2021-05-04 19:10:00 87 /min [facility] [place] [facility] Oxygen saturation in 2021-05-04 19:10:00 100 /min University of Arterial blood by [facility] Pulse oximetry Branch Body temperature 2021-05-04 18:55:00 35.83 Natalia Univ ersity of [place] [facility] Body height 2021-04-21 15:43:00 167.6 cm [facility] [place] [facility] Body weight 2021-04-21 15:43:00 105.6 kg [facility] [place] [facility] BMI 2021-04-21 15:43:00 37.59 kg/m2 [facility] [place] [facility] Systolic blood 2021-05-04 18:55:00 140 mm[Hg] Univer sity of pressure [facility] Diastolic blood 2021-05-04 18:55:00 84 mm[Hg] Unive rsity of pressure [facility] Heart rate 2021-05-04 18:55:00 90 /min [facility] Body temperature 2021-05-04 18:55:00 35.83 Natalia [facility] [place] [facility] Res[facility] 2021-05-04 18:55:00 25 /min [facility] [place] [facility] Oxygen saturation in 2021-05-04 18:55:00 94 /min [facility] Arterial blood by [facility] Pulse oximetry [place] Body height 2021-04-21 15:43:00 167.6 cm [facility] Body weight 2021-04-21 15:43:00 105.6 kg [facility] BMI 2021-04-21 15:43:00 37.59 kg/m2 [facility] Procedures Procedure Date / Time Performing Source Performed Clinician [id number] 2021-10-17 [facility] 00:00:00 [facility] CT ABDOMEN PELVIS WO CONTRAST 2021-08-02 Lavell De Leon iversity of 22:56:46 [facility] LIPASE 2021-08-02 Lavell De Leon of 21:09:00 [facility] COMP. METABOLIC PANEL ([id number]) 2021-08-02 Lavell De Leon iversity of 21:09:00 [facility] CBC WITH DIFF 2021-08-02 Lavell De Leon of 21:08:00 [facility]ALYSIS 2021-08-02 [facility]00 [facility] COVID-19 (ID NOW RAPID TESTING) 2021-08-02 Lavell De Leon of 20:17:00 [facility] CONSENT/REFUSAL FOR DIAGNOSIS AND 2021-08-02 [facility] 18:35:23 Unassigned, No [facility] CT ABDOMEN PELVIS W CONTRAST 2021-05-09 Lavell De Leon Uni versity of 20:15:19 [facility] URINALYSIS 2021-05-09 Lavell De Leon of 18:58:00 [facility] COMP. METABOLIC PANEL ([id number]) 2021-05-09 Lavell De Leon iversity of 18:35:00 [facility] CBC WITH DIFF 2021-05-09 [facility] of 18:35:00 [facility] XR CHEST 2 VW 2021-05-09 De Leon, [facility] of 16:47:42 [facility] XR LUMBAR SPINE 3 VW 2021-05-09 [facility] of 16:47:42 [facility] ESOPHAGOGASTRODUODENOSCOPY 2021-05-04 Jackie Reyna rsity of 18:21:00 Mehrdad Hay [facility] EGD (ENDO) 2021-05-04 [facility] of 17:46:29 [facility] EGD (ENDO) 2021-05-04 [facility] of 17:46:29 [facility] ASSIGNMENT OF BENEFITS 2021-05-03 Doctor Universit y of 13:07:28 Unassigned, No [facility] EXTERNAL PROVIDER RECORDS 2021-04-20 Doctor Univer sity of 05:01:00 Unassigned, No [facility] EXTERNAL PROVIDER RECORDS 2021-04-20 Doctor Univer sity of 05:01:00 Unassigned, No [facility] Encounters Start End Encounter Admission Attending Care Care Encounter Source Date/Time Date/Time Type Type Clinicians Facility Department ID 2021-12-27 Outpatient R [facility] [id number] Univers 09:49:04 MEHRDAD Field of [facility] 2021-12-08 Outpatient Triana, [facility] [id number] Common 16:43:00 [facility]yl[facility] 2021-12-05 Out[facility] [id number] Common 14:56:01 [facility]yl[facility] 2021-11-04 Outpatient Triana, [facility] [id number] Common 10:22:00 [facility]yl[facility] 2021-10-26 Outpatient Triana, [facility] [id number] Common 16:48:01 [facility]yl[facility] 2021-10-21 Outpatient Triana, STLMLC ST[facility] [id number] Common 13:18:01 [facility]yl[facility] 2021-10-18 Outpatient Triana, STLMLC STLMLC [id number] Common 13:27:02 [facility]yl[facility] 2021-08-31 Outpatient Triana, STLMLC STLMLC [id number] Common 14:40:32 [facility] 2021-08-31 Outpatient Triana, STLMLC STLMLC [id number] Common 14:27:35 [facility] 2021-08-31 Outpatient Triana, STLMLC STLMLC [id number] Common 14:13:22 [facility] 2021-08-31 Outpatient Triana, STLMLC STLMLC [id number] Common 14:05:40 [facility] 2021-08-31 Outpatient Jerauld, STLMLC STLMLC [id number] Common 14:01:51 Ruth [id number] [facility] 2021-08-31 Outpatient Jerauld, STLMLC STLMLC [id number] Common 14:00:44 Ruth [id number] [facility] 2021-08-31 Outpatient Jerauld, STLMLC STLMLC [id number] Common 13:48:34 Ruth [id number] [facility] 2021-08-31 Outpatient Jerauld, STLMLC STLMLC [id number] Common 13:28:14 Ruth 02380 [facility] 2021-08-31 Outpatient Jerauld, STLMLC STLMLC [id number] Common 12:43:59 Ruth 34648 [facility] 2021-08-31 Outpatient Jerauld, STLMLC STLMLC [id number] Common 12:43:30 Ruth 69460 [facility] 2021-08-31 Outpatient Jerauld, STLMLC STLMLC [id number] Common 12:40:36 Ruth 98789 [facility] 2021-08-31 Outpatient Jerauld, STLMLC STLMLC [id number] Common 11:45:41 Ruth 83384 [facility] 2021-08-31 Outpatient Jerauld, STLMLC STLMLC [id number] Common 11:36:44 Ruth 02955 [facility] 2021-08-31 Outpatient Jerauld, STLMLC STLMLC [id number] Common 11:33:43 Ruth 14161 [facility] 2021-08-31 Outpatient Jerauld, STLMLC STLMLC [id number] Common 11:29:50 Ruth 56678 [facility] 2021-08-31 Outpatient Jerauld, STLMLC STLMLC [id number] Common 11:25:13 Ruth 61368 [facility] 2021-08-31 Outpatient Jerauld, STLMLC STLMLC [id number] Common 11:19:14 Ruth 17160 [facility] 2021-08-31 Outpatient Jerauld, STLMLC STLMLC [id number] Common 11:12:16 Ruth 96015 [facility] 2021-08-31 Outpatient Millender, STLMLC STLMLC [id number] Common 11:09:26 Sheryl 31619 [facility] 2021-08-31 Outpatient Jerauld, STLMLC STLMLC [id number] Common 11:07:41 Ruth 52247 [facility] 2021-08-31 Outpatient Jerauld, STLMLC STLMLC [id number] Common 11:07:07 Ruth 79301 [facility] 2021-08-31 Outpatient Jerauld, STLMLC STLMLC [id number] Common 10:58:45 Ruth 70002 [facility] 2021-06-07 Emergency [facility] [id number] Univers 03:36:58 ity of [facility] 2021-06-07 Outpatient [facility] [id number] Univers 00:03:36 MEHRDAD Field ity of [facility] 2021-06-06 Emergency [facility] [id number] Univers 01:28:49 ity of [facility] 2021-06-04 Emergency [facility] [id number] Univers 13:53:54 ity of [facility] 2021-06-04 [facility] [id number] Univers 00:26:15 MEHRDAD Field ity [facility] 2022-01-10 2022-01-10 Outpatient R [facility] [id number] Univers 08:45:00 08:45:00 [id number] ity [facility] 2022-01-10 2022-01-10 [id number] Univers 08:45:00 08:45:00 MEHRDAD Field o f [facility] 2021-12-07 2021-12-07 ambulatory STLMLC STLMLC [id number] Common 00:00:00 00:00:00 [facility] 2021-11-24 2021-11-24 ambulatory STLMLC STLMLC [id number] Common 00:00:00 00:00:00 [facility] 2021-11-11 2021-11-11 ambulatory STLMLC STLMLC [id number] Common 00:00:00 00:00:00 [facility] 2021-11-08 2021-11-08 ambulatory STLMLC STLMLC [id number] Common 00:00:00 00:00:00 [facility] 2021-11-03 2021-11-03 ambulatory STLMLC STLMLC [id number] Common 00:00:00 00:00:00 [facility] 2021-10-20 2021-10-20 ambulatory STLMLC STLMLC [id number] Common 00:00:00 00:00:00 [facility] 2021-10-17 2021-10-18 Inpatient EM Ilstefani, [facility] [id number] 0- [facility] 14:18:00 13:18:00 Osveronica [id number] [facility] 2021-10-16 2021-10-16 [facility] [id number] 0- 14:16:00 14:15:00 Osinachi Patric on [facility] are [facility] 2021-10-13 2021-10-13 ambulatory STLMLC STLMLC [id number] Common 00:00:00 00:00:00 [facility] 2021-10-11 2021-10-11 ambulatory STLMLC STLMLC [id number] Common 00:00:00 00:00:00 [facility] 2021-09-12 2021-09-12 ambulatory STLMLC STLMLC [id number] Common 00:00:00 00:00:00 [facility] 2021-09-02 2021-09-02 ambulatory STLMLC STLMLC [id number] Common 00:00:00 00:00:00 [facility] 2021-09-02 2021-09-02 ambulatory STLMLC STLMLC [id number] Common 00:00:00 00:00:00 [facility] 2021-09-02 2021-09-02 ambulatory STLMLC STLMLC [id number] Common 00:00:00 00:00:00 [facility] 2021-08-31 2021-08-31 ambulatory STLMLC STLMLC [id number] Common 00:00:00 00:00:00 [facility] 2021-08-25 2021-08-25 ambulatory STLMLC STLMLC [id number] Common 00:00:00 00:00:00 [facility] 2021-08-23 2021-08-23 ambulatory STLMLC STLMLC [id number] Common 00:00:00 00:00:00 [facility] 2021-08-16 2021-08-16 ambulatory STLMLC STLMLC [id number] Common 00:00:00 00:00:00 [facility] 2021-08-15 2021-08-15 ambulatory STLMLC STLMLC [id number] Common 00:00:00 00:00:00 [facility] 2021-08-02 2021-08-02 Emergency X DARIEL WIMARIO ERT [id number] Univers 12:57:00 18:07:00 KATTY perez [facility] 2021-08-02 2021-08-02 Emergency Lavell De Leon [facility] 1.2.840. 114 [id number] [facility] 12:57:00 18:07:00 Katty Vieira DENYS [id number] [facility] [id number] [facility] [id number] [facility] [address] 2021-07-27 2021-07-27 ambulatory STLMLC STLMLC [id number] Common 00:00:00 00:00:00 [facility] 2021-07-07 2021-07-07 ambulatory STLMLC STLMLC [id number] Common 00:00:00 00:00:00 [facility] 2021-07-06 2021-07-06 ambulatory STLMLC STLMLC [id number] Common 00:00:00 00:00:00 [facility] 2021-06-22 2021-06-22 ambulatory STLMLC STLMLC [id number] Common 00:00:00 00:00:00 [facility] 2021-06-02 2021-06-02 Outpatient STLMLC STLMLC [id number] Common 00:00:00 00:00:00 [facility] 2021-05-18 2021-05-18 Outpatient STLMLC STLMLC [id number] Common 00:00:00 00:00:00 [facility] 2021-05-09 2021-05-09 Emergency De Leon [facility] [id number] Univers 10:58:00 17:26:00 Lavell Thomason [id number] i ty [place] 4.2.7.2.686 [facility] [id number] [facility] 0[address] 2021-05-04 2021-05-04 [facility] 1.2.840.114 [id number] Univers 11:54:00 14:35:00 Encounter zain Mehrdad Hay [place] [id number] [place] [id number] [facility] 071 Branch 2021-05-04 2021-05-04 [facility] 1.2.840.114 [id number] Univers 13:25:00 13:57:00 zain Mehrdad Hay [place] [id number] [place] [phone] [facility] 020 Branch 2021-05-03 2021-05-03 Laboratory Only, Adc Test [facility] 1.2.840. 114 [id number] Univers 08:07:19 08:22:19 Only Mehrdad Reyna 350.1.1 3.10 [place] [phone] [facility] 353 [address] 2021-05-03 2021-05-03 Outpatient R [facility] [id number] Univers 07:45:00 07:45:00 [id number] ity of [facility] 2021-05-03 2021-05-03 Outpatient R [facility] [id number] Univers 07:45:00 07:45:00 MEHRDAD Field o f [facility] 2021-05-03 2021-05-03 Orders Doctor BARONE 1.2.840.114 [id number] Univers 00:00:00 00:00:00 Only Unassigned, BAR [id number] ity of [place] [facility] 4.2.7.2.686 Solomon as [phone] [facility] 009 Branch 2021-04-20 2021-04-20 [facility] [id number] Common 00:00:00 00:00:00 [facility] 2021-03-10 2021-03-[address] [facility] 1.2.840.114 [id number] 10:47:03 23:59:00 Encounter [place] 350.1.13.10 [place] 4.2.7.2.686 [place] [id number] 2021-03-10 2021-03-[address] [facility] 1.2.840.114 [id number] 10:45:00 10:46:00 Encounter [place] 350.1.13.10 [place] 4.2.7.2.686 [place] [id number] 807 2021-03-10 2021-03-10 Outpatient R RADIOLOGY [facility] [id number] Univers 10:45:00 10:45:00 [id number] 2021-03-10 2021-03-10 Outpatient R RADIOLOGY [facility] [id number] Univers 00:00:00 00:00:00 [facility] 2021-03-08 2021-03-08 Urgent Green, [facility] 1.2.840.114 [id number] 20:00:13 20:20:13 [facility] [id number] [place] 4.2.7.2.686 Professio [phone] nal [address] 2021-03-08 2021-03-08 Outpatient R [facility] [id number] Univers 20:00:00 20:00:00 [id number] [facility] 2021-03-08 2021-03-08 Outpatient R GREEN, [facility] [id number] Univers 20:00:00 20:00:00 LEON [facility] 2021-02-24 2021-02-24 Outpatient STLMLC STLMLC [id number] Common 00:00:00 00:00:00 [facility] 2021-02-19 2021-02-19 Outpatient STLMLC STLMLC [id number] Common 00:00:00 00:00:00 [facility] 2021-02-18 2021-02-18 Outpatient STLMLC STLMLC [id number] Common 00:00:00 00:00:00 [facility] 2021-02-16 2021-02-16 Outpatient STLMLC STLMLC [id number] Common 00:00:00 00:00:00 [facility] 2021-01-31 2021-01-31 Transition Dave Lowery 1.2.840.114 [id number] 00:00:00 00:00:00 of Care Karen Lopez 350.1.13.10 [place] 4.2.7.2.686 [id number] [id number] 2021-01-18 2021-01-28 [facility] LolaJona [facility] 1.2.840.1 [id number] 21:13:00 14:30:00 Encounter Riley Chinchillaandre Thomason 350.1.13.10 Gomez [place] 4.2.7.2.686 [place] [id number] 2021-01-25 2021-01-25 Anesthesia Tai Avalos [facility] 1.2.840.11 [id number] 08:49:00 09:30:00 Event Randell López [place] 350.1.13.10 [place] 4.2.7.2.686 Surgical [id number] [place] 020 2021-01-25 2021-01-[address] [facility] 1.2.840.114 [id number] 08:33:00 09:08:00 [place] 350.1.13.10 [place] 4.2.7.2.686 Surgical [phone] [place] 020 2021-01-19 2021-01-19 Outpatient STLMLC STLMLC [id number] Common 00:00:00 00:00:00 [facility] 2020-12-31 2020-12-31 Outpatient STLMLC STLMLC [id number] Common 00:00:00 00:00:00 [facility] 2020-12-30 2020-12-30 Outpatient STLMLC STLMLC [id number] Common 00:00:00 00:00:00 [facility] 2020-12-20 2020-12-20 Outpatient STLMLC STLMLC [id number] Common 00:00:00 00:00:00 [facility] 2020-12-08 2020-12-[address] [facility] 1.2.840.114 [id number] 00:00:00 00:00:00 Nichole [place] 350.1.13.10 Surgical 4.2.7.2.686 Specialti [id number] es 198 Denys 2020-12-07 2020-12-07 Orders Doctor ABISAI 1.2.840.114 [id number] 00:00:00 00:00:00 Only Unassigned, BAR 350.1.13.10 [facility] 4.2.7.2.686 [id number] 009 2020-12-06 2020-12-06 [facility] 1.2.387.124 [id number] 15:09:54 15:49:09 Visit Nichole La 350.1.13.10 Surgical 4.2.7.2.686 Specialti [id number] es 198 [place] 2020-12-06 2020-12-06 [facility] [id number] Univers 15:00:00 15:00:00 NICHOLE [id number] [facility] 2020-12-06 2020-12-06 [facility] [id number] Univers 15:00:00 15:00:00 NICHOLE [facility] 2020-11-26 2020-11-26 [facility] [id number] Univers 09:30:00 09:30:00 [facility] 2020-11-24 2020-11-24 [facility] [id number] Univers 09:30:00 09:30:00 [facility] 2020-11-16 2020-11-16 Outpatient STLC STLC [id number] Common 00:00:00 00:00:00 [facility] 2020-11-11 2020-11-11 [facility] [id number] Univers 11:15:00 11:15:00 KUSUM [id number] [facility] 2020-11-11 2020-11-11 [facility] [id number] Univers 11:15:00 11:15:00 [facility] 2020-11-09 2020-11-09 Outpatient Reena TARA [facility] [id number] Univers 13:45:00 13:45:00 KUSUM Christianson406 [facility] 2020-11-09 2020-11-09 Outpatient Reena PACHECO [facility] [id number] Univers 13:45:00 13:45:00 KUSUM [facility] 2020-11-09 2020-11-09 Outpatient Reena LAU, [facility] [id number] Univers 00:00:00 00:00:00 NICHOLE [facility] 2020-11-08 2020-11-08 Outpatient Reena LAU [facility] [id number] Univers 15:30:00 15:30:00 NICHOLE [id number] [facility] 2020-11-08 2020-11-08 Outpatient Reena LAU, [facility] [id number] Univers 00:00:00 [facility]00[facility] 2020-11-03 2020-11-03 Outpatient STLMLC STLMLC [id number] Common 00:00:00 00:00:00 [facility] 2020-10-25 2020-10-25 Outpatient STLMLC STLMLC [id number] Common 00:00:00 00:00:00 [facility] 2020-10-22 2020-10-22 Outpatient STLMLC STLMLC [id number] Common 00:00:00 00:00:00 [facility] 2020-10-20 2020-10-20 Outpatient STLMLC STLMLC [id number] Common 00:00:00 00:00:00 [facility] 2020-10-12 2020-10-12 Outpatient STLMLC STLMLC [id number] Common 00:00:00 00:00:00 [facility] 2020-09-15 2020-09-15 Outpatient STLMLC STLMLC [id number] Common 00:00:00 00:00:00 [facility] 2020-09-10 2020-09-10 Outpatient [facility] [id number] Univers 19:40:00 19:40:00 [id number] [facility] 2020-09-10 2020-09-10 Outpatient R NIKKI [facility] [id number] Univers 19:40:00 19:40:00 AMANDA vincent [facility] 2020-07-12 2020-07-12 Outpatient STLMLC STLMLC [id number] Common 00:00:00 00:00:00 [facility] 2020-06-11 2020-06-11 Outpatient STLMLC STLMLC [id number] Common 00:00:00 00:00:00 [facility] 2020-06-01 2020-06-01 Outpatient R [facility] [id number] Univers 11:45:00 11:45:00 [id number] [facility] 2020-06-01 2020-06-01 Outpatient R MINH [facility] [id number] Univers 11:45:00 11:45:00 MEHRDAD Field [facility] 2020-05-26 2020-05-26 Outpatient STLMLC STLMLC [id number] Common 00:00:00 00:00:00 [facility] 2020-05-11 2020-05-11 Outpatient STLMLC STLMLC [id number] Common 00:00:00 00:00:00 [facility] 2020-04-16 2020-04-16 [facility] [id number] Common 15:00:00 15:00:00 [facility] it Road [facility] 2020-04-16 2020-04-16 Outpatient STLMLC STLMLC [id number] Common 00:00:00 00:00:00 [facility] 2020-04-13 2020-04-13 Out[facility] [id number] Common 08:51:00 08:51:00 t Trenton hurleypalmerflatt [facility] it Road [facility] 2020-02-27 2020-02-27 Out[facility] [id number] Common 14:00:00 14:00:00 Dry Lube [facility] it Drive [facility] 2020-02-23 2020-02-23 Outpatient [facility] [id number] Common 13:12:00 13:12:[address] [facility] 2020-02-18 2020-02-18 Out[facility] [id number] Common 09:08:00 09:08:[address] [facility] 2020-02-16 2020-02-16 Out[facility] [id number] Common 18:34:00 18:34:[address] [facility] 2020-02-11 2020-02-11 Outpatient [facility] [id number] Common 13:20:00 13:20:[address] [facility] 2020-01-06 2020-01-06 Out[facility] [id number] Common 18:46:00 18:46:[address] [facility] 2019-12-22 2019-12-22 [facility] [id number] Common 14:00:00 14:00:00 t Bone Bone [facility] Spiri t [facility] 2019-12-05 2019-12-05 [facility] [id number] Common 10:40:00 10:40:[address] [facility] 2019-11-28 2019-11-28 Out[facility] [id number] Common 11:00:00 11:00:[address] [facility] 2019-11-10 2019-11-10 Outpatient [facility] [id number] Common 15:55:00 15:55:[address] [facility] 2019-11-05 2019-11-05 Outpatient [facility] [id number] Common 18:33:00 18:33:[address] [facility] 2019-10-28 2019-10-28 Out[facility] [id number] Common 11:08:00 11:08:[address] [facility] 2019-10-27 2019-10-27 Out[facility] [id number] Common 14:31:00 14:31:[address] [facility] 2019-10-13 2019-10-13 Outpatient [facility] [id number] Common 09:00:00 09:00:[address] [facility] 2019-09-29 2019-09-29 Out[facility] [id number] Common 11:30:00 11:30:[address] [facility] 2019-09-18 2019-09-18 Outpatient [facility] [id number] Common 14:40:00 14:40:[address] [facility] 2019-08-14 2019-08-14 Outpatient [facility] [id number] Common 14:18:00 14:18:[address] [facility] 2019-08-13 2019-08-13 Outpatient [facility] [id number] Common 11:00:00 11:00:[address] [facility] 2019-07-18 2019-07-18 Outpatient [facility] [id number] Common 09:00:00 09:00:[address] [facility] 2019-06-23 2019-06-23 Outpatient [facility] [id number] Common 10:40:00 10:40:[address] [facility] 2019-06-09 2019-06-09 Outpatient [facility] [id number] Common 12:17:00 12:17:[address] [facility] 2019-06-09 2019-06-09 Outpatient [facility] [id number] Common 08:20:00 08:20:[address] [facility] 2019-05-30 2019-05-30 Outpatient [facility] [id number] Common 08:00:00 08:00:[address] [facility] 2019-04-03 2019-04-03 Out[facility] [id number] Common 09:00:00 09:00:00 t [facility] Bone [facility] Sp[facility] t [facility] 2019-03-24 2019-03-24 [facility] [id number] Common 10:15:00 10:15:00 t Specialty/U Sp coretta Specialty rology - [facility] 2019-03-04 2019-03-04 [id number] Common 11:00:00 11:00:00 t Specialty/U Sp coretta Specialty rology - [facility] 2019-02-21 2019-02-21 [facility] [id number] Common 13:45:00 13:45:00 t Specialty/U Sp coretta Specialty rology - [facility] 2019-02-18 2019-02-18 Out[facility] [id number] Common 15:42:00 15:42:[address] [facility] 2019-02-11 2019-02-11 Out[facility] [id number] Common 13:20:00 13:20:[address] [facility] 2018-11-11 2018-11-11 Outpatient [facility] [id number] Common 09:20:00 09:20:[address] [facility] 2018-10-01 2018-10-01 Outpatient [facility] [id number] Common 15:30:00 15:30:[address] [facility] 2018-09-06 2018-09-06 [facility] [id number] Common 10:00:00 10:00:[address] Spir it [facility] 2018-05-21 2018-05-21 Outpatient Marcell Leggett [id number] Common 08:37:00 08:37:00 [facility] 2018-05-09 2018-05-09 Outpatient Marcell Leggett [id number] Common 08:30:00 08:30:00 [facility] Results Test Description Test Time Test Comments Results Result Comments Source INFLAMMATORY BOWEL DISEASE 2021-10-24 15:23:00 Test Item Value Reference Range Interpretation Comme nts ATYPICAL pANCA (test code = <1:20 titer See_Comment The atypical pANCA pattern has ANCACOM) been observed i n asignificant percentage of p atients with ulcerative coli tis,primary sclerosing chol angitis and autoimmune hepa titis. ASCA+/PANCA- Hope ggestive of Crohn's disease ASCA-/PANCA+ Hope ggestive of Ulcerative coli tisPerformed At: [facility] [id number] [place], [place] [id number] ra Kevin LEMUS Ph:[phone] [ Automated message] The sy stem which generated this result transmitted ref erence range: Neg:<1:20. The reference range was not used to interpret this result as chloe l/abnormal. AB SACCHAROMYCES CEREVIS IGA <20.0 Units 0.0-24.9 (test code = ASCAGA) Negati ve <20.0 Equivocal 20.1 - 24.9 Positive >or= 25.0IgA and IgG antibody testing for S. cerevisiae isuseful adjunc t testing for differentiating Crohn'sdisease and ulcerative colitis. Close to 80% ofCrohn' s disease patients are po sitive for eitherIgA or Ig G. In ulcerative colitis, less t moralez 15% arepositive for IgG and less than 2% are pos itive forIgA. Fewer than 5% a re positive for either IgG orIg A antibody, and no healthy cont rols had antibodyfor bot h. AB SACCHAROMYCES CEREVIS IGG 44.7 Units 0.0-24.9 A (test code = ASCAGG) Negativ e <20.0 Equivocal 20.1 - 24.9 Pos itive >or= 25.0 [id number] 11:15:00 Test Item Value Reference Range Interpretation Comments GLUBED (test 95 mg/dL 70-105 N Intravenous adm inistration of code = GLUBED) N-acetylcyste ine which resultsin blood concentrations >5 mg/dL will cause overestim ationof blood glucose results . Do not use during intraven ousinfusion of N'acetylcystein e. BASIC METABOLIC [id number] 08:19:00 Test Item Value Reference Range Interpretation Comments SODIUM (test code 137 mmol/L 135-145 N = NA) POTASSIUM (test 3.7 mmol/L 3.5-5.1 N code = K) CHLORIDE (test 110 mmol/L 98-107 H code = CL) CARBON DIOXIDE 22 mmol/L 21-32 N (test code = CO2) ANION GAP (test 8.7 2.0-16.0 N code = GAP) GLUCOSE (test code 113 mg/dL 65-99 H = GLU) BLOOD UREA 10 mg/dL 4-23 N NITROGEN (test code = BUN) GLOMERULAR >=60 max >60 The estimated FILTRATION RATE estimate ml/min glomerula r (test code = GFR) filtration rate is computed usingpatient ra ce, age (>18), sex, and serum creatinin e. If anyof the neede d data elements a re missing the Laboratory gideon ot compute an estimation of t he glomerular filtration rate . CREATININE (test 0.8 mg/dL 0.6-1.5 N code = CREAT) BUN/CREATININE 12.5 12.0-20.0 N RATIO (test code = BUN/CREA) CALCIUM (test code 8.2 mg/dL 8.5-10.1 L = CA) CBC W/AUTO [id number] 08:10:00 Test Item Value Reference Range Interpretation Comments WHITE BLOOD CELL (test code = 5.6 10 3/uL 4.5-11.0 N WBC) RED BLOOD CELL (test code = 2.57 10 6/uL 3.50-5.50 L RBC) HEMOGLOBIN (test code = HGB) 8.3 g/dL 12.0-16.0 L HEMATOCRIT (test code = HCT) 25.8 % 37.0-55.0 L MEAN CELL VOLUME (test code = 100 fL 81-102 MCV) MEAN CELL HGB (test code = 32.3 pg 26.0-34.0 N MCH) MEAN CELL HGB CONCENTRATION 32.2 g/dL 31.0-37.0 N (test code = MCHC) RED CELL DISTRIBUTION WIDTH 13.2 % 11.6-14.4 N (test code = RDW) PLATELET COUNT (test code = 170 10 3/uL 150-400 N PLT) MEAN PLATELET VOLUME (test 11.1 fL 9.0-12.6 N code = MPV) NEUTROPHIL % (test code = NT%) 57.0 % 33.0-76.0 N IMMATURE GRANULOCYTE % (test 0.4 % 0.0-1.0 N code = IG%) LYMPHOCYTE % (test code = LY%) 29.1 % 14.0-56.4 N MONOCYTE % (test code = MO%) 10.7 % 0.0-12.9 N EOSINOPHIL % (test code = EO%) 2.3 % 0.0-7.0 N BASOPHIL % (test code = BA%) 0.5 % 0-2.0 N NUCLEATED RBC % (test code = 0.0 % 0-0.2 N NRBC%) NEUTROPHIL # (test code = NT#) 3.20 10 3/uL 1.5-7.0 N IMMATURE GRANULOCYTE # (test 0.020 x10 3/uL 0.000-0.100 N code = IG#) LYMPHOCYTE # (test code = LY#) 1.63 10 3/uL 1.50-4.00 N MONOCYTE # (test code = MO#) 0.60 10 3/uL 0.20-0.80 N EOSINOPHIL # (test code = EO#) 0.13 10 3/uL 0.0-0.5 N BASOPHIL # (test code = BA#) 0.03 10 3/uL 0.0-0.1 N [id number] 06:06:00 Test Item Value Reference Range Interpretation Comments GLUBED (test 114 mg/dL 70-105 H Intravenous adm inistration code = GLUBED) of N-acetylcy steine which resultsin blood concentrations >5 mg/dL will cause overestim ationof blood glucose results . Do not use during intraven ousinfusion of N'acetylcyst eine. HGBA1C - GLYCOSYLATED [id number] 03:08:00 Test Item Value Reference Range Interpretation Comments GLYCOSYLATED HEMOGLOBIN 5.2 % 4.8-5.6 Prediabetes: (HA1C) (test code = 5.7 - 6. 4 GLYHGB) Diabetes: >6.4 Glycemic contro l for adults with jose betes: <7.0Performed A t: HD [facility] [address], [place] [id number] monae Neely MD Ph:[phone] [id number] 23:20:00 Test Item Value Reference Range Interpretation Comments GLUBED (test 121 mg/dL 70-105 H Intravenous adm inistration code = GLUBED) of N-acetylcy steine which resultsin blood concentrations >5 mg/dL will cause overestim ationof blood glucose results . Do not use during intraven ousinfusion of N'acetylcyst eine. [id number] 16:38:00 Test Item Value Reference Range Interpretation Comments GLUBED (test 84 mg/dL 70-105 N Intravenous adm inistration of code = GLUBED) N-acetylcyste ine which resultsin blood concentrations >5 mg/dL will cause overestim ationof blood glucose results . Do not use during intraven ousinfusion of N'acetylcystein e. HGB [id number] 16:14:00 Test Item Value Reference Range Interpretation Comments HEMOGLOBIN (test code = HGB) 9.1 g/dL 12.0-16.0 L HEMATOCRIT (test code = HCT) 28.9 % 37.0-55.0 L - CT ABD PELVIS W/O [id number] 13:47:00 [facility] : 1960 Sex: FPatient Name: CHRIS SANTOS Unit No: [id number] EXAMS: CPT CODE: [id number] CT ABD PELVIS W/O CONT 00341 EXAM: CT ABDOMEN AND PELVIS WITHOUT CONTRAST INDICATION: Rectal bleeding, diarrhea LOCATION: A1 COMPARISON: None TECHNIQUE: CT of the abdomen and pelvis was performed without intravenous contrast. All CT scans are performed using radiation dose reduction technique. Technical factors are evaluated and adjusted to insure appropriate moderation of exposure. Automated dose management technologyis applied to adjust the radiation dose to minimize exposure while achieving a diagnostic quality image. FINDINGS: Statements: Lack of intravenous contrast compromises evaluation of abdominopelvic organs and vasculature. Thoracic: Included images of the lower chest demonstrate no abnormalities. Hepatobiliary: No focal liver lesion is identified. No intrahepatic or extrahepatic biliary dilatation is seen. Gallbladder: Surgically absent Pancreas: Unremarkable. Spleen: Unremarkable. Adrenals: Unremarkable. Kidneys: There is no evidence of renal calculus.There is no evidence of hydronephrosis of either kidney. Bladder/Reproductive system: The bladder is collapsed with a Vieira catheter in place. Uterus is surgically absent. Gastrointestinal: No bowel obstruction or perienteric inflammation. The appendix isnot visualized. Vascular: The aorta is grossly normal in appearance. Lymphatics: No enlarged lymph nodes by CT size criteria. Bones/Soft Tissues: No acute osseous findings. Osteophytosis is noted throughout the lumbar spine. No ventral hernias. Peritoneum/Other: No extraluminal air. No extraluminal fluid. IMPRESSION: [facility] [id number] - Isharry,Monie Neely [employer] [address] : 1960 Age: 61 Sex: [place] [address] [facility] [id number] Loc: NC.6204 1 Exam D ate: 10/16/2021 Status: ADM IN PH: FAX: PAGE 1 Signed Report (CONTINUED) Patient Name: CHRIS SANTOS Unit No: [id number] EXAMS: CPT CODE: [id number] CT ABD PELVIS W/O CONT 09860 <Continued> No acute abdominal or pelvic abnormalities. at 1347 Reported and signed by: Justa Winston M.D. CC: Self Referred; Stanley Lboo MD; Monie Nash NP Technologist: Aura Pérez; Chey Blas CTDI: 20.53 DLP: 1225.6 Trscr Dt/Tm: 10/17/2021 (1347) by:Jose REB14 Electronic Signature Date/Time: 10/17/2021 (6607)Orig Print D/T: S: 10/17/2021 (3852) Name: CHRIS SANTOS [facility] [place] Phys: [place] [address] : 1960 Age: 61 Sex: [place] [address] Loc: NC.6204 1 Exam Date: 10/16/2021 Status: ADM IN PH: FAX: PAGE 2 Signed ReportCOMPREHENSIVE METABOLIC [id number] 08:59:00 Test Item Value Reference Range Interpretation Comments SODIUM (test code 138 mmol/L 135-145 N = NA) POTASSIUM (test 4.2 mmol/L 3.5-5.1 N code = K) CHLORIDE (test 112 mmol/L 98-107 H code = CL) CARBON DIOXIDE 23 mmol/L 21-32 N (test code = CO2) ANION GAP (test 7.2 2.0-16.0 N code = GAP) GLUCOSE (test 104 mg/dL 65-99 H code = GLU) BLOOD UREA 20 mg/dL 4-23 N NITROGEN (test code = BUN) GLOMERULAR >=60 max >60 The estimated g lomerular FILTRATION RATE estimate filtration r ate is (test code = GFR) ml/min computed u singpatient race, age (>18) , sex, and serum creat inine. If anyof the neede d data elements are mi ssing the Laboratory gideon ot compute an jose j mation of the glomerular filtration rate . CREATININE (test 0.8 mg/dL 0.6-1.5 N code = CREAT) BUN/CREATININE 25.0 12.0-20.0 H RATIO (test code = BUN/CREA) TOTAL PROTEIN 6.2 g/dL 6.4-8.2 L (test code = PROT) ALBUMIN (test 3.4 g/dL 3.4-5.0 N code = ALB) CALCIUM (test 8.7 mg/dL 8.5-10.1 N code = CA) BILIRUBIN TOTAL 0.3 mg/dL 0.2-1.2 N Use of this assay is not (test code = recommended for patients BILT) undergoingtreat ment with Eltrombopag due to the potential for falselyelevated results. SGOT/AST (test 19 U/L 15-37 N code = AST) SGPT/ALT (test 27 U/L 6-50 N code = ALT) ALKALINE 60 U/L 45-117 N PHOSPHATASE (test code = ALKP) FE W/TOTAL IRON BINDING [id number] 08:59:00 Test Item Value Reference Range Interpretation Comments IRON (test code = IRON) 124 ug/dL 50-175 N TOTAL IRON BINDING CAPACITY (test 307 ug/dL 260-445 N code = TIBC) IRON SATURATION (test code = FESAT) 40 % 11-46 N VITAMIN [id number] 08:59:00 Test Item Value Reference Range Interpretation Comments VITAMIN B12 (test code = VITB12) 352 pg/mL 254-1320 N FOLIC [id number] 08:59:00 Test Item Value Reference Range Interpretation Comments FOLIC ACID (test code = FOL) 35.90 ng/ml 3.10-17.50 H TSH REFLEX TO [id number] 08:59:00 Test Item Value Reference Range Interpretation Comments TSH REFLEX TO FT4 (test code = 3.36 mIU/mL 0.36-3.74 N TSHREFLEX) [id number] 08:59:00 Test Item Value Reference Range Interpretation Comments FERRITIN (test code = BURKE) 132 ng/mL 8-388 N PROTHROMBIN [id number] 08:20:00 Test Item Value Reference Range Interpretation Comments PROTHROMBIN TIME 11.9 SECONDS 9.4-12.5 N PATIENT (test code = PTP) INTERNATIONAL 1.0 RATIO 0.8-1.1 N THE INR IS USE FUL ONLY NORMAL RATIO (test FOR MONIT ORING code = INR) ANTICOAGULANT THERAPY.IT MAY BE UNRELIABLE IN T HE INITIAL PHASE O F ANTICOAGULATION AND IN UNSTABLE PATIEN TS. 2.0-3.0 is the recommended INR for the following:Preve ntion of venous thrombol ism in high-risk patients;treatm ent of venous thrombos is and pulmonary embol ism aftera course o f heparin; preven tion of systemic emboli sm in avariety of con dition, including atria l fibrillation andprosthetic t issue heart valves.2. 5-3.5 is the recommended INR for the following:Prost hetic mechanical hear t values and/or recurren t systemicemboliz ation. CBC W/AUTO [id number] 08:11:00 Test Item Value Reference Range Interpretation Comments WHITE BLOOD CELL (test code = 5.5 10 3/uL 4.5-11.0 N WBC) RED BLOOD CELL (test code = 2.30 10 6/uL 3.50-5.50 L RBC) HEMOGLOBIN (test code = HGB) 7.9 g/dL 12.0-16.0 L HEMATOCRIT (test code = HCT) 24.8 % 37.0-55.0 L MEAN CELL VOLUME (test code = 108 fL 81-102 H MCV) MEAN CELL HGB (test code = 34.3 pg 26.0-34.0 H MCH) MEAN CELL HGB CONCENTRATION 31.9 g/dL 31.0-37.0 N (test code = MCHC) RED CELL DISTRIBUTION WIDTH 12.3 % 11.6-14.4 N (test code = RDW) PLATELET COUNT (test code = 186 10 3/uL 150-400 N PLT) MEAN PLATELET VOLUME (test 11.1 fL 9.0-12.6 N code = MPV) NEUTROPHIL % (test code = NT%) 57.6 % 33.0-76.0 N IMMATURE GRANULOCYTE % (test 0.2 % 0.0-1.0 N code = IG%) LYMPHOCYTE % (test code = LY%) 32.2 % 14.0-56.4 N MONOCYTE % (test code = MO%) 7.8 % 0.0-12.9 N EOSINOPHIL % (test code = EO%) 1.3 % 0.0-7.0 N BASOPHIL % (test code = BA%) 0.9 % 0-2.0 N NUCLEATED RBC % (test code = 0.0 % 0-0.2 N NRBC%) NEUTROPHIL # (test code = NT#) 3.17 10 3/uL 1.5-7.0 N IMMATURE GRANULOCYTE # (test 0.010 x10 3/uL 0.000-0.100 N code = IG#) LYMPHOCYTE # (test code = LY#) 1.77 10 3/uL 1.50-4.00 N MONOCYTE # (test code = MO#) 0.43 10 3/uL 0.20-0.80 N EOSINOPHIL # (test code = EO#) 0.07 10 3/uL 0.0-0.5 N BASOPHIL # (test code = BA#) 0.05 10 3/uL 0.0-0.1 N [id number] 07:33:00 Test Item Value Reference Range Interpretation Comments GLUBED (test 96 mg/dL 70-105 N Intravenous adm inistration of code = GLUBED) N-acetylcyste ine which resultsin blood concentrations >5 mg/dL will cause overestim ationof blood glucose results . Do not use during intraven ousinfusion of N'acetylcystein e. COVID 19 INHOUSE [id number] 04:58:00 Test Item Value Reference Range Interpretation Comments COVID 19 INHOUSE NEGATIVE Negative Negative re sults do not AG (test code = preclude 201 9-nCoV infection [id number]) andshould not b e used as the sole basis for treatment or otherpatient ma nagement decisions. Nega tive results must becombined with clinical observ ations, patient history , andepidemiologi gregg information. [id number] 04:23:00 Test Item Value Reference Range Interpretation Comments GLUBED (test 79 mg/dL 70-105 N Intravenous adm inistration of code = GLUBED) N-acetylcyste ine which resultsin blood concentrations >5 mg/dL will cause overestim ationof blood glucose results . Do not use during intraven ousinfusion of N'acetylcystein e. [id number] 20:25:00 Test Item Value Reference Range Interpretation Comments GLUBED (test 105 mg/dL 70-105 N Intravenous adm inistration code = GLUBED) of N-acetylcy steine which resultsin blood concentrations >5 mg/dL will cause overestim ationof blood glucose results . Do not use during intraven ousinfusion of N'acetylcyst eine. [id number] 18:16:00 Test Item Value Reference Range Interpretation Comments GLUBED (test 105 mg/dL 70-105 N Intravenous adm inistration code = GLUBED) of N-acetylcy steine which resultsin blood concentrations >5 mg/dL will cause overestim ationof blood glucose results . Do not use during intraven ousinfusion of N'acetylcyst eine. LIPID PROFILE (CORONARY RISK)2021-10-16 17:09:00 Test Item Value Reference Range Interpretation Comments TRIGLYCERIDES (test code = TRIG) 80 mg/dL 0-149 N CHOLESTEROL (test code = CHOL) 85 mg/dL 0-200 N CHOLESTEROL/HDL RATIO (test code = 2 1-6 N CHOLHDL) HDL CHOLESTEROL (test code = HDL) 47 mg/dL 40-60 N LIPOPROTEIN LDL (test code = LDLC) 28 mg/dL 0-100 N BASIC METABOLIC [id number] 15:24:00 Test Item Value Reference Range Interpretation Comments SODIUM (test code 136 mmol/L 135-145 N = NA) POTASSIUM (test 5.4 mmol/L 3.5-5.1 H code = K) CHLORIDE (test 110 mmol/L 98-107 H code = CL) CARBON DIOXIDE 22 mmol/L 21-32 N (test code = CO2) ANION GAP (test 9.4 2.0-16.0 N code = GAP) GLUCOSE (test code 135 mg/dL 65-99 H = GLU) BLOOD UREA 35 mg/dL 4-23 H NITROGEN (test code = BUN) GLOMERULAR >=60 max >60 The estimated FILTRATION RATE estimate ml/min glomerula r (test code = GFR) filtration rate is computed usingpatient ra ce, age (>18), sex, and serum creatinin e. If anyof the neede d data elements a re missing the Laboratory gideon ot compute an estimation of t he glomerular filtration rate . CREATININE (test 0.8 mg/dL 0.6-1.5 N code = CREAT) BUN/CREATININE 43.8 12.0-20.0 H RATIO (test code = BUN/CREA) CALCIUM (test code 8.3 mg/dL 8.5-10.1 L = CA) LIVER FUNCTION [id number] 15:24:00 Test Item Value Reference Range Interpretation Comments TOTAL PROTEIN 6.7 g/dL 6.4-8.2 N (test code = PROT) ALBUMIN (test code 3.5 g/dL 3.4-5.0 N = ALB) GLOBULIN (test 3.2 g/dL 2.3-3.5 N code = GLOB) BILIRUBIN TOTAL 0.3 mg/dL 0.2-1.2 N Use of this assay is not (test code = BILT) recommend ed for patients undergoingtreat ment with Eltrombopag due to the potential for falselyelevated results. BILIRUBIN DIRECT 0.1 mg/dL 0.0-0.3 N (test code = BILD) BILIRUBIN INDIRECT 0.2 mg/dL 0.0-0.8 N (test code = BILIND) SGOT/AST (test 16 U/L 15-37 N code = AST) SGPT/ALT (test 27 U/L 6-50 N code = ALT) ALKALINE 64 U/L 45-117 N PHOSPHATASE (test code = ALKP) [id number] 15:24:00 Test Item Value Reference Range Interpretation Comments LIPASE (test code = LIP) 108 U/L 73-393 N PROTHROMBIN [id number] 15:18:00 Test Item Value Reference Range Interpretation Comments PROTHROMBIN TIME 11.4 SECONDS 9.4-12.5 N PATIENT (test code = PTP) INTERNATIONAL 1.0 RATIO 0.8-1.1 N THE INR IS USE FUL ONLY NORMAL RATIO (test FOR MONIT ORING code = INR) ANTICOAGULANT THERAPY.IT MAY BE UNRELIABLE IN T HE INITIAL PHASE O F ANTICOAGULATION AND IN UNSTABLE PATIEN TS. 2.0-3.0 is the recommended INR for the following:Preve ntion of venous thrombol ism in high-risk patients;treatm ent of venous thrombos is and pulmonary embol ism aftera course o f heparin; preven tion of systemic emboli sm in avariety of con dition, including atria l fibrillation andprosthetic t issue heart valves.2. 5-3.5 is the recommended INR for the following:Prost hetic mechanical hear t values and/or recurren t systemicemboliz ation. CBC W/O [id number] 15:06:00 Test Item Value Reference Range Interpretation Comments WHITE BLOOD CELL (test code = 8.2 10 3/uL 4.5-11.0 N WBC) RED BLOOD CELL (test code = RBC) 2.77 10 6/uL 3.50-5.50 L HEMOGLOBIN (test code = HGB) 9.1 g/dL 12.0-16.0 L HEMATOCRIT (test code = HCT) 28.7 % 37.0-55.0 L MEAN CELL VOLUME (test code = 104 fL 81-102 H MCV) MEAN CELL HGB (test code = MCH) 32.9 pg 26.0-34.0 N MEAN CELL HGB CONCENTRATION 31.7 g/dL 31.0-37.0 N (test code = MCHC) RED CELL DISTRIBUTION WIDTH 12.1 % 11.6-14.4 N (test code = RDW) PLATELET COUNT (test code = PLT) 176 10 3/uL 150-400 N COMP. METABOLIC PANEL ([id number])2021-08-02 21:49:40 Test Item Value Reference Range Interpretation Comments NA (test code = 135 mmol/L 135-145 4935240063) K (test code = 4.0 mmol/L 3.5-5.0 0586944481) CL (test code = 103 mmol/L 98-108 1525135333) CO2 TOTAL (test code = 22 mmol/L 23-31 L 5526169664) AGAP (test code = 2-16 7852364776) BUN (test code = 17 mg/dL 7-23 4462302193) GLUCOSE (test code = 106 mg/dL 70-110 0580625557) CREATININE (test code = 1.09 mg/dL 0.50-1.04 H 9502163472) TOTAL BILI (test code = 0.5 mg/dL 0.1-1.5 6444358253) CALCIUM (test code = 9.2 mg/dL 8.6-10.6 9283542176) T PROTEIN (test code = 7.6 g/dL 6.3-8.2 3643774916) ALBUMIN (test code = 4.6 g/dL 3.5-5.0 4262606217) ALK PHOS (test code = 62 U/L 34-122 3755993523) ALTv (test code = 25 U/L 5-35 1742-6) AST(SGOT) (test code = 26 U/L 13-40 1462859666) eGFR (test code = mL/min/1.73m2 3571623192) RAOUL (test code = RAOUL) Association of [...] tests). Lab Interpretation Abnormal (test code = 52113-6) [facility] Test Item Value Reference Range Interpretation Comments LIPASE (test code = 7529683024) 114 U/L 0-220 Lab Interpretation (test code = Normal 93043-5) [facility] [id number] 21:25:54 Test Item Value Reference Range Interpretation Comments WBC (test code = See_Comment [Automated 9990-2) message] The sy stem which generated this result transmitted reference range : 4.30 - 11.10 10*3/?L. The reference range was not used to interpret this result as normal/abnormal . RBC (test code = See_Comment L [Automated 369-8) message] The sy stem which generated this [...] RDW-SD (test code = 48.0 fL 39.0-49.9 10351-2) RDW-CV (test code = 12.8 % 12.0-15.5 788-0) PLT (test code = See_Comment [Automated 777-3) message] The sy stem which generated this result transmitted reference range : 166 - 358 10*3/ ?L. The reference r stephanie was not used to interpret this result as normal/abnormal . MPV (test code = 10.4 fL 9.5-12.9 61773-7) NRBC/100 WBC (test See_Comment [Automat ed code = 7247627975) message] The system which generated this result transmitted reference range : 0.0 - 10.0 /100 WBCs. The refer ence range was not u sed to interpret th is result as normal/abnormal . NRBC x10^3 (test code <0.01 See_Comment [Auto mated = 7971763677) message] The s ystem which generated this result transmitted reference range : 10*3/?L. The reference range was not used to interpret this result as normal/abnormal . GRAN MAT (NEUT) % 52.4 % (test code = 770-8) IMM GRAN % (test code 0.00 % = 2773900987) LYMPH % (test code = 37.1 % 736-9) MONO % (test code = 7.7 % 5905-5) EOS % (test code = 2.2 % 713-8) BASO % (test code = 0.6 % 706-2) GRAN MAT x10^3(ANC) 2.84 10*3/uL 1.88-7.09 (test code = 6600952848) IMM GRAN x10^3 (test <0.03 0.00-0.06 code = 6732423059) LYMPH x10^3 (test code 2.01 10*3/uL 1.32-3.29 = 731-0) MONO x10^3 (test code 0.42 10*3/uL 0.33-0.92 = 742-7) EOS x10^3 (test code = 0.12 10*3/uL 0.03-0.39 711-2) BASO x10^3 (test code 0.03 10*3/uL 0.01-0.07 = 704-7) Lab Interpretation Abnormal (test code = 78221-9) [facility]. METABOLIC PANEL (00005)2021-05-09 19:18:28 Test Item Value Reference Range Interpretation Comments NA (test code = 138 mmol/L 135-145 2406373897) K (test code = 2.9 mmol/L 3.5-5.0 LL 3200327534) CL (test code = 104 mmol/L 98-108 4934469959) CO2 TOTAL (test code = 25 mmol/L 23-31 2845395824) AGAP (test code = 2-16 2780478738) BUN (test code = 8 mg/dL 7-23 1141921686) GLUCOSE (test code = 134 mg/dL 70-110 H 0563010123) CREATININE (test code = 0.77 mg/dL 0.50-1.04 2939747825) TOTAL BILI (test code = 0.4 mg/dL 0.1-1.9 1496934880) CALCIUM (test code = 9.6 mg/dL 8.6-10.6 8105901675) T PROTEIN (test code = 7.3 g/dL 6.3-8.2 7296858557) ALBUMIN (test code = 4.4 g/dL 3.5-5.0 2708952533) ALK PHOS (test code = 63 U/L 34-122 5976395521) ALTv (test code = 27 U/L 5-35 1742-6) AST(SGOT) (test code = 27 U/L 13-40 7609353810) eGFR (test code = mL/min/1.73m2 9402377224) RAOUL (test code = RAOUL) Association of [...] tests). Lab Interpretation Abnormal (test code = 62447-4) [facility] WITH [id number] 18:53:37 Test Item Value Reference Range Interpretation Comments WBC (test code = See_Comment [Automated 1720-2) message] The sy stem which generated this result transmitted reference range : 4.30 - 11.10 10*3/?L. The reference range was not used to interpret this result as normal/abnormal . RBC (test code = See_Comment L [Automated 950-8) message] The sy stem which generated this [...] RDW-SD (test code = 48.9 fL 39.0-49.9 22404-2) RDW-CV (test code = 13.9 % 12.0-15.5 788-0) PLT (test code = See_Comment [Automated 777-3) message] The sy stem which generated this result transmitted reference range : 166 - 358 10*3/ ?L. The reference r stephanie was not used to interpret this result as normal/abnormal . MPV (test code = 10.3 fL 9.5-12.9 18944-6) NRBC/100 WBC (test See_Comment [Automat ed code = 4651410528) message] The system which generated this result transmitted reference range : 0.0 - 10.0 /100 WBCs. The refer ence range was not u sed to interpret th is result as normal/abnormal . NRBC x10^3 (test code <0.01 See_Comment [Auto mated = 8355677285) message] The s ystem which generated this result transmitted reference range : 10*3/?L. The reference range was not used to interpret this result as normal/abnormal . GRAN MAT (NEUT) % 58.2 % (test code = 770-8) IMM GRAN % (test code 0.40 % = 8176379699) LYMPH % (test code = 29.6 % 736-9) MONO % (test code = 10.3 % 5905-5) EOS % (test code = 1.1 % 713-8) BASO % (test code = 0.4 % 706-2) GRAN MAT x10^3(ANC) 3.21 10*3/uL 1.88-7.09 (test code = 0351643132) IMM GRAN x10^3 (test <0.03 0.00-0.06 code = 5519601217) LYMPH x10^3 (test code 1.63 10*3/uL 1.32-3.29 = 731-0) MONO x10^3 (test code 0.57 10*3/uL 0.33-0.92 = 742-7) EOS x10^3 (test code = 0.06 10*3/uL 0.03-0.39 711-2) BASO x10^3 (test code <0.03 0.01-0.07 = 704-7) Lab Interpretation Abnormal (test code = 19034-8) [facility]"
[2021-12-28 16:27] LABS: Absolute Lymphocytes (CBC) 1.6 K/uL (0.7-4.9); Hematocrit 29.4 % (36.0-45.0); Lymphocytes % 34.8 % (15.3-44.8); MPV 7.6 fL (7.6-11.3)
[2021-12-28] MEDS ORDERED: MORPHINE 4 MG/ML SYR ONE (16:27)
[2021-12-28] MEDS ORDERED: FAMOTIDINE 20 MG/2 ML VIAL IV ONE (16:28)
[2021-12-28] MEDS ORDERED: ONDANSETRON 4 MG/2 ML VIAL ONE (16:28)
[2021-12-28] MEDS ORDERED: NA CHLORIDE 0.9% 1,000 ML ONE (16:28)
[2021-12-28 17:10] LABS: Albumin 3.5 g/dL (3.4-5.0); Bilirubin Total 0.2 mg/dL (0.2-1.0); Protein, Total 6.6 g/dL (6.4-8.2)
--- NOTE | 2021-12-28 18:17 | RAD REPORT ---
EXAM DESCRIPTION: CTAbdomen Pelvis W Contrast - 12/28/2021 6:09 pm CLINICAL HISTORY: Abdominal pain. Abdominal pain, acute, nonlocalized COMPARISON: Abdomen Pelvis W Contrast dated 10/08/2021; Abdomen Pelvis W Contrast dated 06/18/2021 ; Abdomen Pelvis W Contrast dated 04/04/2021; Abdomen Pelvis W Contrast dated 03/22/2021; Breast Bi lat W Wo Cont dated 07/25/2021 TECHNIQUE: Biphasic CT imaging of the abdomen and pelvis was performed with 100 ml non-ionic IV cont rast. All CT scans are performed using dose optimization technique as appropriate and may include automated exposure control or mA/KV adjustment according to patient size. FINDINGS: The lung bases are clear.Cholecystectomy clips. The liver, spleen, pancreas, adrenal glands and kidneys are within normal limits. No bowel obstruction, free air, free fluid or abscess. The appendix is not identified as a discrete structure, however, no secondary findings of appendicitis are identified. No evidence of significan t lymphadenopathy. No suspicious bony findings. IMPRESSION: No acute intra-abdominal or pelvic finding.
--- NOTE | 2021-12-28 18:28 | ER ---
Nurse's Notes [facility] Name: Radha Santos Age: 61 yrs Sex: Female : 1960 Arrival Date: 12/28/2021 Time: 15:56 Bed 13 Private MD: Diagnosis: Upper abdominal pain, unspecified Presentation: 12/28 16:00 Chief complaint: EMS states: pt called us for abdominal pain. hx of chronic abd pain. tw2 states GI is on vacation, states pain has gotten worse past few days but over 2 months now has had abdominal pain. vs stable. 20g LEFT hand, given 1 gm tylenol iv, rates pain 8/10. Coronavirus screen: At this time, the client does not indicate any symptoms associated with coronavirus-19. Ebola Screen: Patient denies travel to an Ebola-affected area in the 21 days before illness onset. Initial Sepsis Screen: Does the patient meet any 2 criteria? No. Patient's initial sepsis screen is negative. Does the patient have a suspected source of infection? No. Patient's initial sepsis screen is negative. Risk Assessment: Do you want to hurt yourself or someone else? Patient reports no desire to harm self or others. Note provider at bedside at this time. Onset of symptoms was December 27, 2021 at 08:00. Care prior to arrival: IV initiated. 20 GA, in the left hand. 16:00 Method Of Arrival: EMS: [facility] tw2 16:00 Acuity: SAURAV 3 tw2 Triage Assessment: 16:03 General: Appears in no apparent distress. uncomfortable, well groomed, Behavior is tw2 cooperative, anxious. Pain: Complains of pain in epigastric area. GI: Reports lower abdominal pain, upper abdominal pain. Historical: - Allergies: 16:03 miconazole; tw2 16:03 skin cleanser combination no.17; tw2 - Home Meds: 16:03 trazodone 100 mg Oral tab 1-3 tabs at night [Active]; amlodipine 5 mg tab 1 tab once tw2 daily [Active]; divalproex 500 mg Oral Tb24 2 tabs nightly [Active]; duloxetine 60 mg Oral cpDR 2 caps every morning [Active]; gabapentin 300 mg Oral cap 2 caps four times a day [Active]; levothyroxine 200 mcg tab 1 tab once daily [Active]; losartan 50 mg Oral tab 1 tab once daily [Active]; meloxicam 7.5 mg Oral tab 1 tab once daily [Active]; metformin 500 mg Oral cp24 1 tab twice a day [Active]; omeprazole 40 mg Oral cpDR 1 cap once daily [Active]; quetiapine 300 mg Oral tab 1 tab once daily [Active]; simvastatin 20 mg Oral tab 1 tab nightly [Active]; sucralfate 100 mg/mL Oral susp 10 mL 4 times per day [Active]; tizanidine 2 mg Oral cap 1 cap twice a day [Active]; tramadol 50 mg Oral tab 1 tab three times a day [Active]; - PMHx: 16:03 Hypothyroidism; Hypertension; High Cholesterol; CVA; chronic back pain; Chronic tw2 Abdominal Pain; Anxiety; Depression; Diabetes - NIDDM; GERD; - PSHx: 16:03 section; Cholecystectomy; Total abdominal hysterectomy; tw2 - Immunization history:: Adult Immunizations. - Social history:: Smoking status: . - Family history:: not pertinent. - Hospitalizations: : No recent hospitalization is reported. Screenin:06 Abuse screen: Denies threats or abuse. Nutritional screening: No deficits noted. tw2 Tuberculosis screening: No symptoms or risk factors identified. Fall Risk None identified. Assessment: 16:05 Reassessment: see triage assessment. tw2 17:34 Reassessment: Patient appears in no apparent distress at this time. Patient and/or tw2 family updated on plan of care and expected duration. Pain level reassessed. Patient is alert, oriented x 3, equal unlabored respirations, skin warm/dry/pink. Patient states feeling better. Patient states symptoms have improved. 17:38 Reassessment: pt needing IV above wrist per CT department. tw2 18:44 Reassessment: Patient appears in no apparent distress at this time. Patient and/or tw2 family updated on plan of care and expected duration. Pain level reassessed. Patient is alert, oriented x 3, equal unlabored respirations, skin warm/dry/pink. Vital Signs: 16:00 BP 141 / 57; Pulse 88; Resp 17; Temp 97.9; Pulse Ox 100% on R/A; Pain 8/10; tw2 17:34 BP 127 / 75; Pulse 86; Resp 17; Pulse Ox 98% on R/A; Pain 4/10; tw2 18:43 BP 128 / 72; Pulse 83; Resp 17; Pulse Ox 99% on R/A; tw2 ED Course: 15:56 Patient arrived in ED. tw2 15:56 Maintain EMS IV. Dressing intact. Good blood return noted. Site clean \T\ dry. Gauge \T\ tw 2 site: 20 g left wrist. 15:57 Delvis Lr MD is Attending Physician. rn 16:00 Bed in low position. Call light in reach. Client placed on continuous cardiac and pulse tw2 oximetry monitoring. NIBP monitoring applied. science faculty member on. Pulse ox on. 16:03 Triage completed. tw2 16:03 Arm band placed on. tw2 16:10 Praveena Hackett, RIMA is Primary Nurse. tw2 17:49 Missed attempt(s): 22 gauge in right antecubital area. Bleeding controlled, band aid tw2 applied, catheter tip intact. 18:11 Abdomen In Process Unspecified. EDMS Administered Medications: 16:00 Drug: Pepcid (famotidine) 20 mg Route: IVP; Site: left hand; tw2 16:30 Drug: Zofran (Ondansetron) 4 mg Route: IVP; Site: left hand; tw2 16:33 Drug: morphine 4 mg Route: IVP; Infused Over: 4 mins; Site: left hand; tw2 16:34 Drug: NS 0.9% 1000 ml Route: IV; Rate: 1 bolus; Site: left hand; tw2 Outcome: 18:27 Discharge ordered by . rn 18:44 Discharged to home ambulatory. tw2 18:44 Condition: stable 18:44 Discharge instructions given to patient, Instructed on discharge instructions, follow up and referral plans. Demonstrated understanding of instructions, follow-up care. 18:44 Patient left the ED. tw2 Signatures: Dispatcher [employer] EDMS Delvis Lr MD MD rn Wise, Tara, RN RN tw2
--- NOTE | 2021-12-28 18:28 | EDPHYS ---
Physician Documentation [facility] Name: Radha Santos Age: 61 yrs Sex: Female : 1960 Arrival Date: 12/28/2021 Time: 15:56 Bed 13 Private MD: ED Physician Delvis Lr HPI: 12/28 16:04 This 61 yrs old Female presents to ER via EMS with complaints of Abd Pain > 50 y/o. rn 16:04 The patient presents with abdominal pain in the epigastric area. Onset: The rn symptoms/episode began/occurred at an unknown time. The symptoms radiate to Associated signs and symptoms: Pertinent positives: nausea, Pertinent negatives: blood in stools, chest pain, diarrhea, fever, hematuria, shortness of breath, vomiting, vomiting blood. The symptoms are described as sharp, stabbing. Modifying factors: The symptoms are alleviated by nothing, the symptoms are aggravated by touching the area. Severity of pain: At its worst the pain was moderate in the emergency department the pain is unchanged. The patient has experienced similar episodes in the past. The patient has not recently seen a physician. Pt reports hx of gastric ulcer, denies current bleeding in stool or dark stool. Reports pain present almost daily for 10 months, but worse recently. Denies chest pain/sob. NO vomiting. No palpitations. Reports compliant with antacid therapy. Not better or worse with food. . Historical: - Allergies: 16:03 miconazole; tw2 16:03 skin cleanser combination no.17; tw2 - Home Meds: 16:03 trazodone 100 mg Oral tab 1-3 tabs at night [Active]; amlodipine 5 mg tab 1 tab once tw2 daily [Active]; divalproex 500 mg Oral Tb24 2 tabs nightly [Active]; duloxetine 60 mg Oral cpDR 2 caps every morning [Active]; gabapentin 300 mg Oral cap 2 caps four times a day [Active]; levothyroxine 200 mcg tab 1 tab once daily [Active]; losartan 50 mg Oral tab 1 tab once daily [Active]; meloxicam 7.5 mg Oral tab 1 tab once daily [Active]; metformin 500 mg Oral cp24 1 tab twice a day [Active]; omeprazole 40 mg Oral cpDR 1 cap once daily [Active]; quetiapine 300 mg Oral tab 1 tab once daily [Active]; simvastatin 20 mg Oral tab 1 tab nightly [Active]; sucralfate 100 mg/mL Oral susp 10 mL 4 times per day [Active]; tizanidine 2 mg Oral cap 1 cap twice a day [Active]; tramadol 50 mg Oral tab 1 tab three times a day [Active]; - PMHx: 16:03 Hypothyroidism; Hypertension; High Cholesterol; CVA; chronic back pain; Chronic tw2 Abdominal Pain; Anxiety; Depression; Diabetes - NIDDM; GERD; - PSHx: 16:03 section; Cholecystectomy; Total abdominal hysterectomy; tw2 - Immunization history:: Adult Immunizations. - Social history:: Smoking status: . - Family history:: not pertinent. - Hospitalizations: : No recent hospitalization is reported. ROS: 16:04 Constitutional: Negative for fever, chills, and weight loss, Eyes: Negative for injury, rn pain, redness, and discharge, Neck: Negative for injury, pain, and swelling, Cardiovascular: Negative for chest pain, palpitations, and edema, Respiratory: Negative for shortness of breath, cough, wheezing, and pleuritic chest pain, Abdomen/GI: + epigastric abd pain, + nausea Back: Negative for injury and pain, : Negative for injury, bleeding, discharge, and swelling, MS/Extremity: Negative for injury and deformity, Skin: Negative for injury, rash, and discoloration, Neuro: Negative for headache, weakness, numbness, tingling, and seizure. Exam: 16:04 Constitutional: This is a well developed, well nourished patient who is awake, alert, rn appears uncomfortable Head/Face: Normocephalic, atraumatic. Eyes: Periorbital areas with no swelling, redness, or edema. Cardiovascular: Regular rate and rhythm. No pulse deficits. Respiratory: No increased work of breathing, no retractions or nasal flaring. Abdomen/GI: soft, + epigastric tenderness, no rebound, no masses Skin: Warm, dry MS/ Extremity: Pulses equal, no cyanosis. Neuro: Awake and alert, GCS 15 Vital Signs: 16:00 BP 141 / 57; Pulse 88; Resp 17; Temp 97.9; Pulse Ox 100% on R/A; Pain 8/10; tw2 17:34 BP 127 / 75; Pulse 86; Resp 17; Pulse Ox 98% on R/A; Pain 4/10; tw2 18:43 BP 128 / 72; Pulse 83; Resp 17; Pulse Ox 99% on R/A; tw2 MDM: 15:57 Patient medically screened. rn 18:24 Differential diagnosis: bowel obstruction, diverticulitis, gastritis, gastroesophageal rn reflux disease, non-specific abd pain, pancreatitis, Peptic Ulcer Disease. Data reviewed: vital signs, nurses notes, lab test result(s), radiologic studies, CT scan, and as a result, I will discharge patient. Counseling: I had a detailed discussion with the patient and/or guardian regarding: the historical points, exam findings, and any diagnostic results supporting the discharge/admit diagnosis, lab results, radiology results, the need for outpatient follow up, to return to the emergency department if symptoms worsen or persist or if there are any questions or concerns that arise at home. Response to treatment: the patient's symptoms have mildly improved after treatment, and as a result, I will discharge patient. Special discussion: I discussed with the patient/guardian in detail that at this point there is no indication for admission to the hospital. It is understood, however, that if the symptoms persist or worsen the patient needs to return immediately for re-evaluation. Based on the history and exam findings, there is no indication for further emergent testing or inpatient evaluation. 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 ED course: No acute findings in blood or imaging. Denies blood in stool or emesis. States pain for months, stable vitals, will dc home with GI f/u and given return precautions. . 12/28 16:02 Order name: CBC with Diff; Complete Time: 17:15 rn 12/28 16:02 Order name: CMP; Complete Time: 17:15 rn 12/28 16:02 Order name: Lipase; Complete Time: 17:15 rn 12/28 16:02 Order name: CT Abd/Pelvis - IV Contrast Only rn 12/28 16:06 Order name: Abdomen ; Complete Time: 18:24 EDCA 12/28 16:03 Order name: IV Saline Lock; Complete Time: 16:34 rn 12/28 16:03 Order name: Labs collected and sent; Complete Time: 16:35 rn Administered Medications: 16:00 Drug: Pepcid (famotidine) 20 mg Route: IVP; Site: left hand; tw2 16:30 Drug: Zofran (Ondansetron) 4 mg Route: IVP; Site: left hand; tw2 16:33 Drug: morphine 4 mg Route: IVP; Infused Over: 4 mins; Site: left hand; tw2 16:34 Drug: NS 0.9% 1000 ml Route: IV; Rate: 1 bolus; Site: left hand; tw2 Disposition Summary: 12/28/21 18:27 Discharge Ordered Location: Home rn Problem: an ongoing problem rn Symptoms: have improved rn Condition: Stable rn Diagnosis - Upper abdominal pain, unspecified rn Followup: rn - With: Private Physician - When: As needed - Reason: Recheck today's complaints, Re-evaluation by your physician Discharge Instructions: - Discharge Summary Sheet rn - Abdominal Pain, Adult rn - Pain Without a Known Cause rn - Gastroesophageal Reflux Disease, Adult rn Forms: - Medication Reconciliation Form rn - Thank You Letter rn - 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
[2021-12-28 18:51] VITALS: TEMP 97.9
[2021-12-28 18:54] VITALS: BP 128/72; O2SAT 99
--- NOTE | 2021-12-29 07:54 | EKG ---
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
== END 2021-12-28 18:44 | disposition home or self-care (01) ==
LOC: ER 15:52
DX: R10.13 Epigastric pain (principal); E03.9 Hypothyroidism, unspecified; E11.9 Type 2 diabetes mellitus without complications; E78.00 Pure hypercholesterolemia, unspecified; I10 Essential (primary) hypertension; Z86.73 Personal history of transient ischemic attack (TIA), and cerebral infarction without residual deficits; Z88.3 Allergy status to other anti-infective agents
CPT/HCPCS: 93005; 85025; 36415; 83690; 80053; 74177; 96375; 96374; 99284; Q9967; J7030; J2405; J3490

== ENCOUNTER 2022-03-21 21:26 | Emergency (ER) | payer OTHER ==
--- OUTSIDE RECORDS SUMMARY | 2022-03-21 21:31 | XMS REPORT | Continuity of Care Document ---
:1960 Author Organization [facility] t Address [address] [place] [address] Care Team Providers Name Role Phone RUTH VILLARREAL Primary Care Physician Unavailable Skylar Triana Attending Clinician Unavailable Ruth Villarreal Attending Clinician Unavailable Sheryl Allison Attending Clinician Unavailable KUSUM PACHECO Attending Clinician Unavailable Kusum Iyer Attending Clinician Stanley Lobo Attending Clinician Unavailable Radiology Attending Clinician Unavailable Antonietta Wilson Attending Clinician Karen Lowery RN Attending Clinician Unavailable Jona Kramer Attending Clinician Mauro Chinchilla MD Attending Clinician Gomez Hawkins MD Attending Clinician Tai Avalos CRNA Attending Clinician Maribel Moody MD, Leonard Attending Clinician Naveen Alvarez MD Attending Clinician Doctor Unassigned, [place] Attending Clinician Unavailable Stanley Lobo Admitting Clinician Unavailable Gomez Hawkins MD Admitting Clinician Payers Payer Name Policy Type Policy Number Effective Date Expiration Date S jeovany [facility] [id number] 2020 [facility] 00:00:00 PPO Problems Condition Condition Condition Status Onset Resolution Last Treating Co mments Source Name Details Category Date Date Treatment Clinician Date Sinus Sinus Disease Active Univers tachycardi tachycardi 6-20 it y of a a 00:00: [address] Branch Anemia Anemia Disease Active Univers 6-20 ity of 00:00: [place] [address] Medical Branch Essential Essential Disease Active Uni vers hypertensi hypertensi 6-20 it y of on on 00:00: [address] Branch Type 2 Type 2 Disease Active Univers diabetes diabetes 6-20 ity of mellitus mellitus 00:00: [place] without without 00 Medical complicati complicati Br anch on, on, without without long-term long-term current current use of use of insulin insulin Colitis Colitis Disease Active Univers 6-16 ity of 00:00: [place] [address] Medical Branch Obesity Obesity Disease Active Univers (BMI (BMI 6-16 ity of 30-39.9) 30-39.9) 00:00: [address] Branch Allergies, Adverse Reactions, Alerts Allergy Allergy Status Severity Reaction(s) Onset Inactive Treating Comm ents Source Name Type Date Date Clinician No Known DA Active U [facility] Allergie 3-13 [place] s 00:00: [facility] 00 are [place] Monistat Adverse Active vaginal Common 1 Reaction swelling [facility] Latex Adverse Active rash Common Gloves Reaction [facility] NO KNOWN Drug Active Univers ALLERGIE Class ity of S [facility] Social History Social Habit Start Date Stop Date Quantity Comments Source Exposure to 2022-02-11 2022-02-21 Not sure [facility] SARS-CoV-2 00:00:00 13:59:00 [facility] (event) [place] Alcohol intake 2022-02-21 2022-02-21 0 /d University 00:00:00 00:00:00 [facility] Tobacco use and 2022-02-21 2022-02-21 Smokeless tobacco Un iversity of exposure 00:00:00 00:00:00 non-user [facility] Sex Ass[birth year] At [birth year] Universit y of 00:00:00 00:00:00 [facility] Smoking Status Start Date Stop Date Source Never smoked tobacco [facility] Medications Ordered Filled Start Stop Current Ordering Indication Dosage Frequency Signature Comments Components Source Medication Medication Date Date Medication? Clinician (SIG) Name Name simvastatin Yes 20mg Take 20 mg Univers (ZOCOR) 20 -17 by mouth ity o f mg tablet 17:58: at [place] [address] bedtime. Medical Branch acetaminoph Yes acetaminop Univers en-codeine -17 hen 300 ity of 300-30 mg 17:58: mg-codeine [place] tablet 36 30 mg Medical tablet Branch TAKE 1 TABLET BY MOUTH TWICE DAILY NEEDED traZODone Yes trazodone Uni vers 150 mg 17 150 mg ity of tablet 17:58: tablet [place] [address] TAKE 1 TO Medical 2 TABLETS Branch BY MOUTH EVERY NIGHT AT BEDTIME NEEDED FOR INSOMNIA traMADoL 50 Yes tramadol Un yan mg tablet -17 50 mg ity of 17:58: tablet [place] [address] TAKE 1 Medical TABLET BY Branch MOUTH THREE TIMES DAILY sucralfate Yes sucralfate U nivers 1 gram 17 1 gram ity of tablet 17:58: tablet [place] [address] TAKE 1 Medical TABLET BY Branch MOUTH BEFORE MEALS AND AT BEDTIME spironolact Yes spironolac Univers one 25 mg 6-17 tone 25 mg ity of tablet 17:58: tablet [place] [address] TAKE 1 Medical TABLET BY Branch MOUTH EVERY DAY SITagliptin Yes Januvia Uni vers (JANUVIA) 6-17 100 mg ity of 100 mg 17:58: tablet [place] tablet 36 TAKE 1 Medical TABLET BY Branch MOUTH EVERY DAY FOR 16 DAYS QUEtiapine Yes quetiapine U nivers 300 mg 6-17 300 mg ity of tablet 17:58: tablet [place] 36 TAKE 1 Medical TABLET BY Branch MOUTH EVERY EVENING 1 TO 1.5 HOUR PRIOR TO BEDTIME WITH 300 CALORIES SNACK QUEtiapine Yes quetiapine U nivers 200 mg -17 200 mg ity of tablet 17:58: tablet [place] 36 TAKE 1 Medical TABLET BY Branch MOUTH TWICE DAILY pantoprazol Yes pantoprazo Univers e 40 mg EC 01-20 le 40 mg ity o f tablet 17:58: tablet,del [place] 36 [facility] Medical [facility] TAKE 1 TABLET BY MOUTH EVERY DAY methocarbam Yes methocarba Univers oL 500 mg 01-20 mol 500 mg ity of tablet 17:58: tablet [place] [address] TAKE 1 Medical TABLET BY Branch MOUTH THREE TIMES DAILY FOR 5 DAYS meloxicam Yes meloxicam Uni vers 15 mg - 15 mg ity of tablet 17:58: tablet [place] [address] TAKE 1 Medical TABLET BY Branch MOUTH EVERY DAY losartan 50 Yes losartan Un yan mg tablet 01-20 50 mg ity of 17:58: tablet [place] [address] TAKE 1 Medical TABLET BY Branch MOUTH TWICE DAILY levothyroxi Yes levothyrox Univers ne 175 mcg 01-20 ine 175 ity of tablet 17:58: mcg tablet [place] [address] TAKE 1 Medical TABLET BY Branch MOUTH EVERY MORNING gabapentin Yes gabapentin U nivers 300 mg 01-20 300 mg ity of capsule 17:58: capsule [place] [address] TAKE 1 Medical CAPSULE BY Branch MOUTH AT BEDTIME DULoxetine Yes duloxetine U nivers 60 mg 01-20 60 mg ity of capsule 17:58: capsule,de [place] 36 [facility] Medical [facility] TAKE 1 CAPSULE BY MOUTH TWICE DAILY divalproex Yes divalproex U nivers 500 mg EC 17 500 mg ity of tablet 17:58: tablet,del [place] 36 [facility] TAKE 1 TABLET BY MOUTH DAILY amLODIPine Yes amlodipine U nivers 5 mg tablet 01-20 5 mg ity of 17:58: tablet [place] 36 TAKE 1 Medical TABLET BY Branch MOUTH TWICE DAILY acetaminoph Yes 1{tbl} Take 1 Un yan en-codeine 6-17 tablet by ity of (TYLENOL-CO 17:58: mouth 3 [place] as DEINE #4) 36 (three) Medical 300-60 mg times Branch tablet daily. metFORMIN Yes 500mg Take 500 Uni vers (GLUCOPHAGE 6-17 mg by ity of ) 500 mg 17:58: mouth 2 [place] tablet 36 (two) Medical times Branch daily with meals. montelukast Yes montelukas Univers 10 mg 6-08 t 10 mg ity of tablet 09:37: tablet [place] 16 TAKE 1 Medical TABLET BY Branch MOUTH EVERY DAY IN THE EVENING dicyclomine Yes [id number] 10mg Take 1 Univers 10 mg 6-25 capsule by ity of capsule 00:00: mouth 3 [place] 00 (three) Medical times Branch daily as needed for Abdominal pain. loperamide Yes [id number] 2mg Take 1 U nivers 2 mg 6-25 capsule by ity of capsule 00:00: mouth [place] 00 every 4 Medical (four) Branch hours as needed for Diarrhea. tiZANidine Yes TAKE 1 Unive rs 2 mg tablet 1-07 TABLET BY ity of 00:00: MOUTH [place] 00 TWICE Medical DAILY Branch DIRECTED Levothyroxi Levothyroxi Yes Ruth 1 tablet Common ne Sodium ne Sodium 4-07 [place] in the Sp coretta 00:00: morning on - [facility] [address] stomach [facility] Levothyroxi Levothyroxi Yes Ruth 1 tablet Common ne Sodium ne Sodium [place] in the Sp coretta morning on - [facility] an empty [facility] stomach [facility] daily Gabapentin Gabapentin Yes Ruth TK 2 Co mmon [place] CAPSULES Spirit PO QID PRN - [facility] Ondansetron Ondansetron Yes Ruth TK 1 T PO Common HCl HCl [place] QD FOR 10 Spirit DAYS PRN [facility] Duloxetine Duloxetine Yes Ruth not Co mmon HCl HCl [place] defined [facility] Breo Breo Yes Ruth 1 puff Common Ellipta Ellipta [place] [facility] Topiramate Topiramate Yes Ruth 1 tablet Common [place] [facility] Albuterol Albuterol Yes Ruth 3 ml as C ommon Sulfate Sulfate [place] needed Spirit [facility] Trazodone Trazodone Yes Ruth TK 1 TO 2 Common HCl HCl [place] TS PO HS Spirit PRF - [facility] INSOMNIA [facility] Tizanidine Tizanidine Yes Ruth 1 tablet Common HCl HCl [place] as needed [facility] Norvasc Norvasc Yes Ruth 1 tablet Comm on [place] Spirit [facility] Estradiol Estradiol Yes Ruth as Comm on [place] directed [facility] Sucralfate Sucralfate Yes Ruth 1 tablet Common [place] on an Spirit empty - CHI stomach [facility] Nystatin Nystatin Yes Ruth 1 Common [place] applicatio [facility] n [facility] Albuterol Albuterol Yes Ruth INL 2 PFS Common Sulfate HFA Sulfate HFA [place] PO Q 6 H Spirit PRN - [facility] Meloxicam Meloxicam Yes Ruth TK 1 T PO Common [place] QD [facility] Loratadine Loratadine Yes Ruth TK 1 T PO Common [place] QD FOR Spirit ALLERGIES [facility] Simvastatin Simvastatin Yes Ruth 1 tablet Common [place] in the [facility] evening [facility] Pantoprazol Pantoprazol Yes Ruth 1 tablet Common e Sodium e Sodium [place] [facility] Lorazepam Lorazepam Yes Ruth 1 tablet Common [place] at bedtime Spirit as needed [facility] Metformin Metformin Yes Ruth TAKE 1 Co mmon HCl HCl [place] TABLET BY [facility] MOUTH - [facility] TWICE St DAILY WITH [facility] Divalproex Divalproex Yes Ruth 1 tablet Common Sodium ER Sodium ER [place] Spir it [facility] Quetiapine Quetiapine Yes Ruth 1 tablet Common Fumarate Fumarate [place] at bedtime [facility] Tramadol Tramadol Yes Ruth 1 tablet Co mmon HCl HCl [place] as needed [facility] Botox Botox Yes Ruth as Common [place] directed [facility] Januvia Januvia Yes Ruth 1 tablet Comm on [place] [facility] Divalproex Divalproex Yes Ruth 3 tabs Common Sodium ER Sodium ER [place] Spir [facility] Simvastatin Simvastatin Yes Ruth TAKE 1 Common [place] TABLET BY Spirit MOUTH - [facility] EVERY DAY IN [facility] Losartan Losartan Yes Ruth 1 tablet Co mmon Potassium Potassium [place] Spir it [facility] Oxybutynin Oxybutynin No Ruth 1 tablet Common Chloride Chloride 10-31 [place] Spiri t 00:00 - CHI :00 [facility] Immunizations Ordered Immunization Filled Immunization Date Status Commen ts Source Name Name Pneumovax Pneumovax 2019-06-09 Completed [facility] Spirit 00:00:00 - [facility] Flucelvax - single Flucelvax - single 2019-05-30 Completed [facility] dose syringe dose syringe 00:00:00 - [facility] Prevnar 13 Prevnar 13 2018-05-09 Completed Common Spirit -Pneumonia Vaccine -Pneumonia Vaccine 00:00:00 - [facility] Vital Signs Vital Name Observation Time Observation Value Comments Source Body height 2022-02-21 19:05:00 170.2 cm [facility] Body weight 2022-02-21 19:05:00 86.183 kg [facility] BMI 2022-02-21 19:05:00 29.76 kg/m2 [facility] Procedures Procedure Date / Time Performed Performing Clinician Boris pittman [id number] 2021-10-17 00:00:00 TODD [facility] Encounters Start End Encounter Admission Attending Care Care Encounter Source Date/Time Date/Time Type Type Clinicians Facility Department ID 2022-02-16 Outpatient MARK Triana [facility] [id number] Common 13:42:01 [facility] 2022-02-07 Outpatient MARK Triana [facility] [id number] Common 08:29:00 [facility] 2021-12-08 [facility] [id number] Common 16:43:00 [facility] 2021-12-05 [facility] [id number] Common 14:56:01 [facility] 2021-11-04 Outpatient Triana, STLMLC STLMLC [id number] Common 10:22:00 Skylar [facility] 2021-10-26 Outpatient Triana, STLMLC STLMLC [id number] Common 16:48:01 Skylar [facility] 2021-10-21 Outpatient Triana, STLMLC STLMLC [id number] Common 13:18:01 Skylar [facility] 2021-10-18 Outpatient Triana, STLMLC STLMLC [id number] Common 13:27:02 Skylar [facility] 2021-08-31 Outpatient Triana, STLMLC STLMLC [id number] Common 14:40:32 [facility] 2021-08-31 Outpatient Triana, STLMLC STLMLC [id number] Common 14:27:35 Skylar [facility] 2021-08-31 Outpatient Triana, STLMLC STLMLC [id number] Common 14:13:22 Skylar [facility] 2021-08-31 Outpatient Triana, STLMLC STLMLC [id number] Common 14:05:40 Skylar [facility] 2021-08-31 Outpatient [place], STLMLC STLMLC [id number] Common 14:01:51 Ruth 85560 [facility] 2021-08-31 Outpatient [place], STLMLC STLMLC [id number] Common 14:00:44 Ruth 01412 [facility] 2021-08-31 Outpatient [place], STLMLC STLMLC [id number] Common 13:48:34 Ruth 24654 [facility] 2021-08-31 Outpatient [place], STLMLC STLMLC [id number] Common 13:28:14 Ruth 16134 [facility] 2021-08-31 Outpatient [place], STLMLC STLMLC [id number] Common 12:43:59 Ruth [id number] [facility] 2021-08-31 Outpatient [place], STLMLC STLMLC [id number] Common 12:43:30 Ruth 42418 [facility] 2021-08-31 Outpatient [place], STLMLC STLMLC [id number] Common 12:40:36 Ruth 06047 [facility] 2021-08-31 Outpatient [place], STLMLC STLMLC [id number] Common 11:45:41 Ruth 02699 [facility] 2021-08-31 Outpatient [place], STLMLC STLMLC [id number] Common 11:36:44 Ruth 01909 [facility] 2021-08-31 Outpatient [place], STLMLC STLMLC [id number] Common 11:33:43 Ruth 06949 [facility] 2021-08-31 Outpatient [place], STLMLC STLMLC [id number] Common 11:29:50 Ruth 19813 [facility] 2021-08-31 Outpatient [place], STLMLC STLMLC [id number] Common 11:25:13 Ruth [id number] [facility] 2021-08-31 Outpatient [place], STLMLC STLMLC [id number] Common 11:19:14 Ruth 03655 [facility] 2021-08-31 Outpatient [place], STLMLC STLMLC [id number] Common 11:12:16 Ruth 84573 [facility] 2021-08-31 Outpatient Millender, STLMLC STLMLC [id number] Common 11:09:26 Sheryl 98116 [facility] 2021-08-31 Outpatient [place], STLMLC STLMLC [id number] Common 11:07:41 Ruth 53427 [facility] 2021-08-31 Outpatient [place], STLMLC STLMLC [id number] Common 11:07:07 Ruth 51551 [facility] 2021-08-31 Outpatient Florencio, STLMLC STLMLC [id number] Common 10:58:45 Ruth 22673 [facility] 2022-03-08 2022-03-08 ambulatory STLMLC STLMLC [id number] Common 00:00:00 00:00:00 [facility] 2022-02-21 2022-02-21 Outpatient R [facility] [id number] Univers 14:58:27 23:59:00 [facility] 2022-02-21 2022-02-21 [facility] [id number] Univers 14:00:00 15:28:39 Visit [facility] [id number] [facility] [id number] [place] as SANDY?BLEA [id number] [address] MEDICAL OFFICE BUILDING 2022-01-31 2022-01-31 ambulatory STLMLC STLMLC [id number] Common 00:00:00 00:00:00 [facility] 2022-01-13 2022-01-13 ambulatory STLMLC STLMLC [id number] Common 00:00:00 00:00:00 [facility] 2022-01-12 2022-01-12 ambulatory STLMLC STLMLC [id number] Common 00:00:00 00:00:00 [facility] 2021-12-07 2021-12-07 ambulatory STLMLC STLMLC [id number] Common 00:00:00 00:00:00 [facility] 2021-11-24 2021-11-24 ambulatory STLMLC STLMLC [id number] Common 00:00:00 00:00:00 [facility] 2021-11-11 2021-11-11 ambulatory STLMLC STLMLC [id number] Common 00:00:00 00:00:00 [facility] 2021-11-08 2021-11-08 ambulatory STLMLC STLMLC [id number] Common 00:00:00 00:00:00 [facility] 2021-11-03 2021-11-03 ambulatory STLMLC STLMLC [id number] Common 00:00:00 00:00:00 [facility] 2021-10-20 2021-10-20 ambulatory STLMLC STLMLC [id number] Common 00:00:00 00:00:00 [facility] 2021-10-17 2021-10-18 Inpatient EM Ilomofelia, HCANC MAS [id number] 0- [facility] 14:18:00 13:18:00 [place] [facility] 2021-10-16 2021-10-16 Inpatient EM Ilomuanya, HCANC MAS [id number] 0- [facility] 14:16:00 14:15:00 [place] [facility] 2021-10-13 2021-10-13 ambulatory STLMLC STLMLC [id number] Common 00:00:00 00:00:00 [facility] 2021-10-11 2021-10-11 ambulatory STLMLC STLMLC [id number] Common 00:00:00 00:00:00 [facility] 2021-09-12 2021-09-12 ambulatory STLMLC STLMLC [id number] Common 00:00:00 00:00:00 [facility] 2021-09-02 2021-09-02 ambulatory STLMLC STLMLC [id number] Common 00:00:00 00:00:00 [facility] 2021-09-02 2021-09-02 ambulatory STLMLC STLMLC [id number] Common 00:00:00 00:00:00 [facility] 2021-09-02 2021-09-02 ambulatory STLMLC STLMLC [id number] Common 00:00:00 00:00:00 [facility] 2021-08-31 2021-08-31 ambulatory STLMLC STLMLC [id number] Common 00:00:00 00:00:00 [facility] 2021-08-25 2021-08-25 ambulatory STLMLC STLMLC [id number] Common 00:00:00 00:00:00 [facility] 2021-08-23 2021-08-23 ambulatory STLMLC STLMLC [id number] Common 00:00:00 00:00:00 [facility] 2021-08-16 2021-08-16 ambulatory STLMLC STLMLC [id number] Common 00:00:00 00:00:00 [facility] 2021-08-15 2021-08-15 ambulatory STLMLC STLMLC [id number] Common 00:00:00 00:00:00 [facility] 2021-07-27 2021-07-27 ambulatory STLMLC STLMLC [id number] Common 00:00:00 00:00:00 [facility] 2021-07-07 2021-07-07 ambulatory STLMLC STLMLC [id number] Common 00:00:00 00:00:00 [facility] 2021-07-06 2021-07-06 ambulatory STLMLC STLMLC [id number] Common 00:00:00 00:00:00 [facility] 2021-06-22 2021-06-22 ambulatory STLMLC STLMLC [id number] Common 00:00:00 00:00:00 [facility] 2021-06-02 2021-06-02 Outpatient STLMLC STLMLC [id number] Common 00:00:00 00:00:00 [facility] 2021-05-18 2021-05-18 Outpatient STLMLC STLMLC [id number] Common 00:00:00 00:00:00 [facility] 2021-04-20 2021-04-20 Outpatient STLMLC STLMLC [id number] Common 00:00:00 00:00:00 [facility] 2021-03-10 2021-03-10 Hospital Radiology [facility] [id number] 10:47:03 23:59:00 Encounter Kat[place] [id number] [place] [id number] Concepcion [id number] 2021-03-10 2021-03-10 Hospital Radiology [facility] [id number] 10:45:00 10:46:00 Encounter Katelin [id number] [place] [id number] Concepcion [id number] 2021-03-08 2021-03-08 Urgent [place], [facility] [id number] 20:00:13 20:20:13 Care [facility] [id number] [place] [id number] [facility] [id number] nal 044 Office [address] 2021-02-24 2021-02-24 Outpatient STLMLC STLMLC [id number] Common 00:00:00 00:00:00 [facility] 2021-02-19 2021-02-19 Outpatient STLMLC STLMLC [id number] Common 00:00:00 00:00:00 [facility] 2021-02-18 2021-02-18 Outpatient STLMLC STLMLC [id number] Common 00:00:00 00:00:00 [facility] 2021-02-16 2021-02-16 Outpatient STLMLC STLMLC [id number] Common 00:00:00 00:00:00 [facility] 2021-01-31 2021-01-31 Transition [place] [id number] 00:00:00 00:00:00 of Care Karen Lopez [id number] [place] [id number] 2021-01-18 2021-01-28 [facility] Jona Davila [facility] [id number] 21:13:00 14:30:00 Encounter Mauro Chinchilla [id number] Gomez Hawkins [id number] Concepc[place] [id number] 2021-01-25 2021-01-25 Anesthesia Tai Avalos [facility] [id number] 08:49:00 09:30:00 Event Randell López [id number] [place] [id number] Surgical [id number] [place] 020 2021-01-25 2021-01-25 Surgery [facility] [id number] 08:33:00 09:08:00 [place] [id number] [place] [id number] Surgical [id number] [place] 020 2021-01-19 2021-01-19 Outpatient STLMLC STLMLC [id number] Common 00:00:00 00:00:00 [facility] 2020-12-31 2020-12-31 Outpatient STLMLC STLC [id number] Common 00:00:00 00:00:00 [facility] 2020-12-30 2020-12-30 Outpatient STLC STLC [id number] Common 00:00:00 00:00:00 [facility] 2020-12-20 2020-12-20 Outpatient STLC STLC [id number] Common 00:00:00 00:00:00 [facility] 2020-12-08 2020-12-08 Telephone FLASH Alvarez [id number] 00:00:00 00:00:00 [facility] [id number] Surgical [id number] Specialti [id number] es 198 [place] 2020-12-07 2020-12-07 Orders Doctor ABISAI [id number] 00:00:00 00:00:00 Only Unassigned, BAR [id number] [place] [facility] [id number] 2020-12-06 2020-12-06 Office FLASH Alvarez [id number] 15:09:54 15:49:09 Visit [facility] [id number] Surgical [id number] Specialti [id number] es 198 [place] 2020-11-16 2020-11-16 Outpatient STLMLC STLMLC [id number] Common 00:00:00 00:00:00 [facility] 2020-11-03 2020-11-03 Outpatient STLMLC STLMLC [id number] Common 00:00:00 00:00:00 [facility] 2020-10-25 2020-10-25 Outpatient STLMLC STLMLC [id number] Common 00:00:00 00:00:00 [facility] 2020-10-22 2020-10-22 Outpatient STLMLC STLMLC [id number] Common 00:00:00 00:00:00 [facility] 2020-10-20 2020-10-20 Outpatient STLMLC STLMLC [id number] Common 00:00:00 00:00:00 [facility] 2020-10-12 2020-10-12 Outpatient STLMLC STLMLC [id number] Common 00:00:00 00:00:00 [facility] 2020-09-15 2020-09-15 Outpatient STLMLC STLMLC [id number] Common 00:00:00 00:00:00 [facility] 2020-07-12 2020-07-12 Outpatient STLMLC STLMLC [id number] Common 00:00:00 00:00:00 [facility] 2020-06-11 2020-06-11 Outpatient STLMLC STLMLC [id number] Common 00:00:00 00:00:00 [facility] 2020-05-26 2020-05-26 Outpatient STLMLC STLMLC [id number] Common 00:00:00 00:00:00 [facility] 2020-05-11 2020-05-11 Outpatient STLMLC STLMLC [id number] Common 00:00:00 00:00:00 [facility] 2020-04-16 2020-04-16 Out[facility] [id number] Common 15:00:00 15:00:00 [facility] 2020-04-16 2020-04-16 Outpatient STLMLC STLMLC [id number] Common 00:00:00 00:00:00 [facility] 2020-04-13 2020-04-13 Out[facility] [id number] Common 08:51:00 08:51:[address] [facility] 2020-02-27 2020-02-27 Outpatient [facility] [id number] Common 14:00:00 14:00:[address] [facility] 2020-02-23 2020-02-23 Outpatient [facility] [id number] Common 13:12:00 13:12:[address] [facility] 2020-02-18 2020-02-18 Outpatient [facility] [id number] Common 09:08:00 09:08:[address] [facility] 2020-02-16 2020-02-16 Outpatient [facility] [id number] Common 18:34:00 18:34:[address] [facility] 2020-02-11 2020-02-11 [id number] Common 13:20:00 13:20:[address] [facility] 2020-01-06 2020-01-06 [facility] [id number] Common 18:46:00 18:46:[address] [facility] 2019-12-22 2019-12-22 [facility] [id number] Common 14:00:00 14:00:00 t Bone Bone and Spiri t and Joint [facility] 2019-12-05 2019-12-05 [facility] [id number] Common 10:40:00 10:40:[address] [facility] 2019-11-28 2019-11-28 [facility] [id number] Common 11:00:00 11:00:[address] [facility] 2019-11-10 2019-11-10 [facility] [id number] Common 15:55:00 15:55:[address] [facility] 2019-11-05 2019-11-05 [facility] [id number] Common 18:33:00 18:33:[address] [facility] 2019-10-28 2019-10-28 [facility] [id number] Common 11:08:00 11:08:[address] [facility] 2019-10-27 2019-10-27 [facility] [id number] Common 14:31:00 14:31:[address] [facility] 2019-10-13 2019-10-13 [facility] [id number] Common 09:00:00 09:00:[address] [facility] 2019-09-29 2019-09-29 [facility] [id number] Common 11:30:00 11:30:[address] [facility] 2019-09-18 2019-09-18 [facility] [id number] Common 14:40:00 14:40:[address] [facility] 2019-08-14 2019-08-14 [facility] [id number] Common 14:18:00 14:18:[address] [facility] 2019-08-13 2019-08-13 [facility] [id number] Common 11:00:00 11:00:[address] [facility] 2019-07-18 2019-07-18 [facility] [id number] Common 09:00:00 09:00:[address] [facility] 2019-06-23 2019-06-23 [facility] [id number] Common 10:40:00 10:40:[address] [facility] [facility] [address] [facility] 2019-06-09 2019-06-09 [facility] [id number] Common 12:17:00 12:17:[address] [facility] 2019-06-09 2019-06-09 [facility] [id number] Common 08:20:00 08:20:[address] [facility] 2019-05-30 2019-05-30 [facility] [id number] Common 08:00:00 08:00:[address] [facility] [facility] [address] [facility] 2019-04-03 2019-04-03 [facility] [id number] Common 09:00:00 09:00:00 t Bone Bone and Spiri t and Joint [facility] 2019-03-24 2019-03-24 [facility] [id number] Common 10:15:00 10:15:00 t Specialty/U Sp coretta Specialty rology - [facility] 2019-03-04 2019-03-04 [facility] [id number] Common 11:00:00 11:00:00 t Specialty/U Sp coretta Specialty rology - [facility] 2019-02-21 2019-02-21 [facility] [id number] Common 13:45:00 13:45:00 t Specialty/U Sp coretta Specialty rology - [facility] 2019-02-18 2019-02-18 [facility] [id number] Common 15:42:00 15:42:[address] [facility] 2019-02-11 2019-02-11 [facility] [id number] Common 13:20:00 13:20:[address] [facility] 2018-11-11 2018-11-11 [facility] [id number] Common 09:20:00 09:20:[address] [facility] 2018-10-01 2018-10-01 [facility] [id number] Common 15:30:00 15:30:[address] [facility] 2018-09-06 2018-09-06 [facility] [id number] Common 10:00:00 10:00:[address] [facility] 2018-05-21 2018-05-21 [facility] [id number] Common 08:37:00 08:37:[address] [facility] [facility] 2018-05-09 2018-05-09 [facility] [id number] Common 08:30:00 08:30:00 t [facility] [address] [facility] Results Test Description Test Time [...] ASCA+/PANCA- Hope ggestive of Crohn's disease ASCA-/PANCA+ Suggestive of U lcerative colitisPerforme d At: [facility] [address] [id number] ra Kevin LEMUS Ph:[phone] [ Automated message] The sy stem which generated this result transmitted ref erence range: Neg:<1:20. The reference range was not used to interpret this result as chloe l/abnormal. AB SACCHAROMYCES CEREVIS IGA <20.0 Units 0.0-24.9 Negative <20.0 Equivocal 20.1 (test code = ASCAGA) - 24.9 Positive >or= 25.0IgA and IgG antibod y testing for S. cerevisiae isus eful adjunct testing for dif ferentiating Crohn'sdisease and ulcerative colitis. Close to 80% ofCrohn's disease patient s are positive for eitherIgA o r IgG. In ulcerative coli tis, less than 15% arepositive for IgG and less than 2% ar e positive forIgA. Fewer t moralez 5% are positive for ei ther IgG orIgA antibody, and n o healthy controls had an tibodyfor both. AB SACCHAROMYCES CEREVIS IGG 44.7 Units 0.0-24.9 A Negative <20.0 Equivocal 20.1 (test code = ASCAGG) - 24.9 Positive >or= 25.0 [id number] 11:15:00 Test Item Value Reference Range Interpretation Comments GLUBED (test 95 mg/dL 70-105 N Intravenous adm inistration of code = GLUBED) N-acetylcyste ine which resultsin blood concentrations >5 mg/dL will cause overestim ationof blood glucose results . Do not use during intraven ousinfusion of N'acetylcystein e. BASIC METABOLIC [id number] 08:19:00 Test Item Value Reference Range Interpretation [...] mg/dL 8.5-10.1 L = CA) CBC W/AUTO [id number] 08:10:00 Test Item Value Reference Range Interpretation [...] = BA#) 0.03 10 3/uL 0.0-0.1 N [id number] 06:06:00 Test Item Value Reference Range Interpretation Comments GLUBED (test 114 mg/dL 70-105 H Intravenous adm inistration code = GLUBED) of N-acetylcy steine which resultsin blood concentrations >5 mg/dL will cause overestim ationof blood glucose results . Do not use during intraven ousinfusion of N'acetylcyst eine. HGBA1C - GLYCOSYLATED [id number] 03:08:00 Test Item Value Reference Range Interpretation Comments GLYCOSYLATED HEMOGLOBIN 5.2 % 4.8-5.6 Pre diabetes: 5.7 - (HA1C) (test code = 6.4 Diab etes: >6.4 GLYHGB) Glycemic contro l for adults with jose betes: <7.0Performed A t: HD [facility] [address] [id number] monae Neely MD Ph:[phone] [facility] [id number] 23:20:00 Test Item Value Reference Range Interpretation Comments GLUBED (test 121 mg/dL 70-105 H Intravenous adm inistration code = GLUBED) of N-acetylcy steine which resultsin blood concentrations >5 mg/dL will cause overestim ationof blood glucose results . Do not use during intraven ousinfusion of N'acetylcyst eine. [id number] 16:38:00 Test Item Value Reference Range Interpretation Comments GLUBED (test 84 mg/dL 70-105 N Intravenous adm inistration of code = GLUBED) N-acetylcyste ine which resultsin blood concentrations >5 mg/dL will cause overestim ationof blood glucose results . Do not use during intraven ousinfusion of N'acetylcystein e. HGB [id number] 16:14:00 Test Item Value Reference Range Interpretation Comments HEMOGLOBIN (test code = HGB) 9.1 g/dL 12.0-16.0 L HEMATOCRIT (test code = HCT) 28.9 % 37.0-55.0 L - CT ABD PELVIS W/O [id number] 13:47:00 [facility] : 1960 Sex: FPatient Name: CHRIS SANTOS Unit No: [id number] EXAMS: CPT CODE: [id number] CT ABD PELVIS W/O CONT [id number] EXAM: CT ABDOMEN AND PELVIS WITHOUT CONTRAST INDICATION: Rectal bleeding, diarrhea LOCATION: A1 COMPARISON: None TECHNIQUE: CT of the abdomen and pelvis was performed without intravenous contrast. All CT scans are performed using radiation dose reduction technique. Technical factors are evaluated and adjusted to insure appropriate moderation of exposure. Automated dose management technology is applied to adjust the radiation dose to [...] Kidneys: There is no evidence of renal calculus. There is no evidence of hydronephrosis of either kidney. Bladder/Reproductive system: The bladder is collapsed with a Vieira catheter in place. Uterus is surgically absent. Gastrointestinal: No bowel obstruction or perienteric inflammation. The appendix is not visualized. Vascular: The aorta is grossly normal in appearance. Lymphatics: No enlarged lymph nodes by CT size criteria. Bones/Soft Tissues: No acute osseous findings. Osteophytosis is noted throughoutthe lumbar spine. No ventral hernias. Peritoneum/Other: No extraluminal air. No extraluminal fluid. IMPRESSION: Name: CHRIS SANTOS [facility] Phys: [id number] - Isari,Monie L NURSING ASSOCIATE [address] : 1960 Age: 61 Sex: [place] [id number] Loc: NC.6204 1 Exam Date:10/16/2021 Status: ADM IN PH: FAX: PAGE 1 Signed Report (CONTINUED) Patient Name: CHRIS SANTOS Unit No: [id number] EXAMS: CPT CODE: [id number] CT ABD PELVIS W/O CONT [id number] <Continued> No acute abdominal or pelvic abnormalities. at 1347 Reported and signed by: Justa Winston M.D. CC: Self Referred; Stanley Lobo MD; Monie Nash NP Technologist: Aura Pérez; Chey Blas CTDI: 20.53 DLP: 1225.6 Trscr Dt/Tm: 10/17/2021 (1347) by:Jose REB14 Electronic Signature Date/Time: 10/17/2021 (1347)Orig PrintD/T: S: 10/17/2021 (1350) Name: CHRIS SANTOS [facility] Phys: [id number] [place] [address] : 1960 Age: 61 Sex: [place] [id number] Loc: NC.6204 1 Exam Date: 10/16/2021 Status: ADM IN PH: FAX: PAGE 2 Signed ReportCOMPREHENSIVE METABOLIC [id number] 08:59:00 Test Item Value Reference Range Interpretation [...] code = ALKP) FE W/TOTAL IRON BINDING [id number] 08:59:00 Test Item Value Reference Range Interpretation Comments IRON (test code = IRON) 124 ug/dL 50-175 N TOTAL IRON BINDING CAPACITY (test 307 ug/dL 260-445 N code = TIBC) IRON SATURATION (test code = FESAT) 40 % 11-46 N VITAMIN [id number] 08:59:00 Test Item Value Reference Range Interpretation Comments VITAMIN B12 (test code = VITB12) 352 pg/mL 254-1320 N FOLIC [id number] 08:59:00 Test Item Value Reference Range Interpretation Comments FOLIC ACID (test code = FOL) 35.90 ng/ml 3.10-17.50 H TSH REFLEX TO [id number] 08:59:00 Test Item Value Reference Range Interpretation Comments TSH REFLEX TO FT4 (test code = 3.36 mIU/mL 0.36-3.74 N TSHREFLEX) [id number] 08:59:00 Test Item Value Reference Range Interpretation Comments FERRITIN (test code = BURKE) 132 ng/mL 8-388 N PROTHROMBIN [id number] 08:20:00 Test Item Value Reference Range Interpretation [...] and/or recurren t systemicemboliz ation. CBC W/AUTO [id number] 08:11:00 Test Item Value Reference Range Interpretation [...] = BA#) 0.05 10 3/uL 0.0-0.1 N [id number] 07:33:00 Test Item Value Reference Range Interpretation Comments GLUBED (test 96 mg/dL 70-105 N Intravenous adm inistration of code = GLUBED) N-acetylcyste ine which resultsin blood concentrations >5 mg/dL will cause overestim ationof blood glucose results . Do not use during intraven ousinfusion of N'acetylcystein e. COVID 19 INHOUSE [id number] 04:58:00 Test Item Value Reference Range Interpretation Comments COVID 19 INHOUSE NEGATIVE Negative Negative re sults do not AG (test code = preclude 201 9-nCoV infection [id number]) andshould not b e used as the sole basis for treatment or otherpatient ma nagement decisions. Nega tive results must becombined with clinical observ ations, patient history , andepidemiologi gregg information. [id number] 04:23:00 Test Item Value Reference Range Interpretation Comments GLUBED (test 79 mg/dL 70-105 N Intravenous adm inistration of code = GLUBED) N-acetylcyste ine which resultsin blood concentrations >5 mg/dL will cause overestim ationof blood glucose results . Do not use during intraven ousinfusion of N'acetylcystein e. [id number] 20:25:00 Test Item Value Reference Range Interpretation Comments GLUBED (test 105 mg/dL 70-105 N Intravenous adm inistration code = GLUBED) of N-acetylcy steine which resultsin blood concentrations >5 mg/dL will cause overestim ationof blood glucose results . Do not use during intraven ousinfusion of N'acetylcyst eine. [id number] 18:16:00 Test Item Value Reference Range Interpretation [...] LDLC) 28 mg/dL 0-100 N BASIC METABOLIC [id number] 15:24:00 Test Item Value Reference Range Interpretation [...] mg/dL 8.5-10.1 L = CA) LIVER FUNCTION [id number] 15:24:00 Test Item Value Reference Range Interpretation [...] 45-117 N PHOSPHATASE (test code = ALKP) [id number] 15:24:00 Test Item Value Reference Range Interpretation Comments LIPASE (test code = LIP) 108 U/L 73-393 N PROTHROMBIN [id number] 15:18:00 Test Item Value Reference Range Interpretation [...] and/or recurren t systemicemboliz ation. CBC W/O [id number] 15:06:00 Test Item Value Reference Range Interpretation [...]
[2022-03-22] MEDS ORDERED: ONDANSETRON 4 MG/2 ML VIAL ONE (01:22)
[2022-03-22] MEDS ORDERED: PANTOPRAZOLE 40 MG INJ ONE ×2 (01:22→06:04)
[2022-03-22] MEDS ORDERED: MORPHINE 4 MG/ML SYR ONE ×2 (01:22→04:11)
[2022-03-22] MEDS ORDERED: NA CHLORIDE 0.9% 1,000 ML ONE (01:23)
[2022-03-22 01:32] LABS: Urine Blood Negative (Negative); Urine Glucose Negative (Negative); Urine Protein Negative (Negative); Urine Specific Gravity <=1.005 (1.005-1.030)
[2022-03-22 01:40] LABS: SARS-CoV-2 Antigen Rapid Res Negative (Negative)
[2022-03-22 02:30] LABS: RBC Red Blood Cell Count 3.04 M/uL (3.86-4.86)
[2022-03-22 02:31] LABS: Absolute Lymphocytes (CBC) 1.6 K/uL (0.7-4.9); Hematocrit 29.6 % (36.0-45.0); Lymphocytes % 34.6 % (15.3-44.8); MCV 97.2 fL (80-100); MPV 7.9 fL (7.6-11.3)
[2022-03-22 02:50] LABS: Albumin 3.7 g/dL (3.4-5.0); Bilirubin Total 0.3 mg/dL (0.2-1.0); Potassium 3.3 mmol/L (3.5-5.1); Protein, Total 7.2 g/dL (6.4-8.2)
[2022-03-22] MEDS ORDERED: NA CHLORIDE 0.9% 250 ML ONE (06:04)
--- NOTE | 2022-03-22 06:07 | ER ---
Nurse's Notes [facility] Name: Radha Santos Age: 61 yrs Sex: Female : 1960 Arrival Date: 03/21/2022 Time: 21:29 Bed 6 Private MD: Diagnosis: Lower GI Bleeding;Upper abdominal pain, unspecified Presentation: 03/21 22:28 Chief complaint: Upper abdominal pain and blood in stool x 2 days. On abx for colitis. hb Coronavirus screen: At this time, the client does not indicate any symptoms associated with coronavirus-19. Ebola Screen: No symptoms or risks identified at this time. Initial Sepsis Screen: Does the patient meet any 2 criteria? No. Patient's initial sepsis screen is negative. Does the patient have a suspected source of infection? No. Patient's initial sepsis screen is negative. Risk Assessment: Do you want to hurt yourself or someone else? Patient reports no desire to harm self or others. Onset of symptoms was March 19, 2022. 22:28 Method Of Arrival: Wheelchair 22:28 Acuity: SAURAV 3 hb Triage Assessment: 03/22 02:47 General: Appears uncomfortable, Behavior is calm, cooperative. Pain: Complains of pain kd3 in left upper quadrant and right upper quadrant and epigastric area. GI: Abdomen is non-distended. Historical: - Allergies: 03/21 22:30 miconazole; hb 22:30 skin cleanser combination no.17; hb - Home Meds: 03/22 02:48 amlodipine 5 mg tab 1 tab once daily [Active]; duloxetine 60 mg Oral cpDR 2 caps every kd3 morning [Active]; levothyroxine 200 mcg tab 1 tab once daily [Active]; meloxicam 7.5 mg Oral tab 1 tab once daily [Active]; omeprazole 40 mg Oral cpDR 1 cap once daily [Active]; gabapentin 300 mg Oral cap 2 caps four times a day [Active]; metformin 500 mg Oral cp24 1 tab twice a day [Active]; quetiapine 300 mg Oral tab 1 tab once daily [Active]; divalproex 500 mg Oral Tb24 2 tabs nightly [Active]; losartan 50 mg Oral tab 1 tab once daily [Active]; sucralfate 100 mg/mL Oral susp 10 mL 4 times per day [Active]; tizanidine 2 mg Oral cap 1 cap twice a day [Active]; simvastatin 20 mg Oral tab 1 tab nightly [Active]; tramadol 50 mg Oral tab 1 tab three times a day [Active]; trazodone 100 mg Oral tab 1-3 tabs at night [Active]; - PMHx: 03/21 22:30 Anxiety; Chronic Abdominal Pain; GERD; High Cholesterol; Hypertension; CVA; hb Hypothyroidism; chronic back pain; Depression; Diabetes - NIDDM; - PSHx: 22:30 section; Cholecystectomy; Total abdominal hysterectomy; hb - Immunization history:: Adult Immunizations up to date. - Social history:: Smoking status: unknown. Screenin/17 02:47 Abuse screen: Denies threats or abuse. Denies injuries from another. Nutritional kd3 screening: No deficits noted. Tuberculosis screening: No symptoms or risk factors identified. Fall Risk None identified. Assessment: 02:48 GI: Bowel sounds present X 4 quads. Abd is soft. kd3 07:00 Reassessment: RECD REPORT FROM JOANNE ABARCA. 61YO WF P/W ABDOMINAL PAIN, [facility] TRANSFER bp PENDING FOR GI BLEED. 07:56 Reassessment: REPORT TO SALTY ABARCA FOR [facility] TRANSFER. bp 08:43 Reassessment: [facility] AT B/S. bp 09:00 Reassessment: PT LEX WITH EMS. bp Vital Signs: 03/21 22:28 BP 147 / 95; Pulse 97; Resp 16; Temp 98.3(O); Pulse Ox 100% on R/A; Weight 88.45 kg; hb Height 5 ft. 7 in. (170.18 cm); Pain 10/10; 03/22 03:48 BP 124 / 60; Pulse 80; Resp 19; Pulse Ox 100% on R/A; kd3 07:00 BP 137 / 71; Pulse 75; Resp 16; Pulse Ox 100% ; bp 08:43 BP 120 / 74; Pulse 74; Resp 16; Pulse Ox 99% ; bp 03/21 22:28 Body Mass Index 30.54 (88.45 kg, 170.18 cm) hb ED Course: 03/21 21:29 Patient arrived in ED. bp1 22:30 Triage completed. hb 22:30 Arm band placed on. hb 03/22 00:09 Uli Concepcion MD is Attending Physician. [facility] 00:15 Joanne Belle, RN is Primary Nurse. kd3 01:23 SARS RAPID Sent. kd3 02:00 Missed attempt(s): 20 gauge in right antecubital area. Bleeding controlled, band aid bb applied, catheter tip intact. 02:05 Initial lab(s) drawn, by il, sent to lab. T\T\S collected, blood band applied to patient. bb Inserted saline lock: 20 gauge in left antecubital area, using aseptic technique. Blood collected. 02:47 Patient has correct armband on for positive identification. kd3 02:47 No provider procedures requiring assistance completed. kd3 03:29 Abdomen In Process Unspecified. EDMS 05:49 initiated a transfer with Harry from [facility] Transfer Center. mw2 06:09 administrative approval given by Harry Petersen/ patient has been accepted to [address] to [address] D 1065/ Dr. Maddox accepted the patient in transfer/ report to be called to [phone]. 06:34 Inserted saline lock: 24 gauge in left hand, using aseptic technique. kd3 07:09 Primary Nurse role handed off by Joanne Belle, RN bp 07:09 Tai Sweeney, RN is Primary Nurse. bp Administered Medications: 02:05 Drug: NS 0.9% 1000 ml Route: IV; Rate: 1 bolus; Site: left antecubital; bb 07:57 Follow up: IV Status: Completed infusion bp 02:05 Drug: Zofran (Ondansetron) 4 mg Route: IVP; Site: left antecubital; bb 07:57 Follow up: Response: No adverse reaction bp 02:07 Drug: morphine 4 mg Route: IVP; Infused Over: 4 mins; Site: left antecubital; bb 07:57 Follow up: Response: Pain is decreased bp 02:12 Drug: ProTONIX (pantoprazole) 80 mg Route: IVP; Site: left antecubital; bb 07:57 Follow up: Response: No adverse reaction bp 04:05 Drug: morphine 4 mg Route: IM; Site: left deltoid; kd3 07:57 Follow up: Response: Pain is decreased bp 06:34 Drug: ProTONIX (pantoprazole) 8 mg/hr Route: IV; Rate: 25 ml/hr; Site: left hand; kd3 07:57 Follow up: IV Status: Infusion continued upon transfer bp 09:00 Drug: morphine 2 mg Route: IVP; Infused Over: 4 mins; Site: left hand; bp 09:00 Follow up: Response: No adverse reaction bp Medication: 02:49 VIS not applicable for this client. kd3 Outcome: 06:06 ER care complete, transfer ordered by . cali 09:00 Patient left the ED. bp Signatures: Dispatcher [employer] EDLy Manjarrez RN RN Annalisa Gonsalez RN RN Tai Sweeney RN RN bp Gage Casas 2 Milagro Salter Maurice, MD MD [facility] Joanne Belle RN RN kd3
--- NOTE | 2022-03-22 06:07 | EDPHYS ---
Physician Documentation [facility] Name: Radha Santos Age: 61 yrs Sex: Female : 1960 Arrival Date: 03/21/2022 Time: 21:29 Bed 6 Private MD: ED Physician Uli Concepcion HPI: 03/22 00:10 This 61 yrs old Female presents to ER via Wheelchair with complaints of Abdominal Pain. mh7 00:10 The patient presents with abdominal pain in the upper abdomen. mh7 00:10 Onset: The symptoms/episode began/occurred 2 day(s) ago. mh7 00:10 The symptoms do not radiate. mh7 00:10 Associated signs and symptoms: Pertinent positives: blood in stools, Pertinent mh7 negatives: nausea, vomiting, and diarrhea, anorexia, chest pain, constipation, diarrhea, dysuria, fever, headache, hematuria, palpitations, shortness of breath, vaginal discharge, vomiting, vomiting blood. 00:10 The symptoms are described as intermittent, vague, waxing/waning. Modifying factors: mh7 The symptoms are alleviated by nothing, the symptoms are aggravated by nothing. Severity of pain: At its worst the pain was moderate 2 day(s) ago, in the emergency department the pain is unchanged. Historical: - Allergies: 03/21 22:30 miconazole; hb 22:30 skin cleanser combination no.17; hb - Home Meds: 03/22 02:48 amlodipine 5 mg tab 1 tab once daily [Active]; duloxetine 60 mg Oral cpDR 2 caps every kd3 morning [Active]; levothyroxine 200 mcg tab 1 tab once daily [Active]; meloxicam 7.5 mg Oral tab 1 tab once daily [Active]; omeprazole 40 mg Oral cpDR 1 cap once daily [Active]; gabapentin 300 mg Oral cap 2 caps four times a day [Active]; metformin 500 mg Oral cp24 1 tab twice a day [Active]; quetiapine 300 mg Oral tab 1 tab once daily [Active]; divalproex 500 mg Oral Tb24 2 tabs nightly [Active]; losartan 50 mg Oral tab 1 tab once daily [Active]; sucralfate 100 mg/mL Oral susp 10 mL 4 times per day [Active]; tizanidine 2 mg Oral cap 1 cap twice a day [Active]; simvastatin 20 mg Oral tab 1 tab nightly [Active]; tramadol 50 mg Oral tab 1 tab three times a day [Active]; trazodone 100 mg Oral tab 1-3 tabs at night [Active]; - PMHx: 03/21 22:30 Anxiety; Chronic Abdominal Pain; GERD; High Cholesterol; Hypertension; CVA; hb Hypothyroidism; chronic back pain; Depression; Diabetes - NIDDM; - PSHx: 22:30 section; Cholecystectomy; Total abdominal hysterectomy; hb - Immunization history:: Adult Immunizations up to date. - Social history:: Smoking status: unknown. ROS: 03/22 00:10 Constitutional: Negative for fever, chills, and weight loss, Eyes: Negative for injury, mh7 pain, redness, and discharge, ENT: Negative for injury, pain, and discharge, Neck: Negative for injury, pain, and swelling, Cardiovascular: Negative for chest pain, palpitations, and edema, Respiratory: Negative for shortness of breath, cough, wheezing, and pleuritic chest pain, Back: Negative for injury and pain, : Negative for injury, bleeding, discharge, and swelling, MS/Extremity: Negative for injury and deformity, Skin: Negative for injury, rash, and discoloration, Neuro: Negative for headache, weakness, numbness, tingling, and seizure, Psych: Negative for depression, anxiety, suicide ideation, homicidal ideation, and hallucinations, Allergy/Immunology: Negative for hives, rash, and allergies, Endocrine: Negative for neck swelling, polydipsia, polyuria, polyphagia, and marked weight changes, Hematologic/Lymphatic: Negative for swollen nodes, abnormal bleeding, and unusual bruising. Exam: 00:10 Head/Face: Normocephalic, atraumatic. Eyes: Pupils equal round and reactive to light, mh7 extra-ocular motions intact. Lids and lashes normal. Conjunctiva and sclera are non-icteric and not injected. Cornea within normal limits. Periorbital areas with no swelling, redness, or edema. Neck: Trachea midline, no thyromegaly or masses palpated, and no cervical lymphadenopathy. Supple, full range of motion without nuchal rigidity, or vertebral point tenderness. No Meningismus. Chest/axilla: Normal chest wall appearance and motion. Nontender with no deformity. No lesions are appreciated. Cardiovascular: Regular rate and rhythm with a normal S1 and S2. No gallops, murmurs, or rubs. Normal PMI, no JVD. No pulse deficits. Respiratory: Lungs have equal breath sounds bilaterally, clear to auscultation and percussion. No rales, rhonchi or wheezes noted. No increased work of breathing, no retractions or nasal flaring. 00:10 Back: No spinal tenderness. No costovertebral tenderness. Full range of motion. Skin: Warm, dry with normal turgor. Normal color with no rashes, no lesions, and no evidence of cellulitis. MS/ Extremity: Pulses equal, no cyanosis. Neurovascular intact. Full, normal range of motion. Neuro: Awake and alert, GCS 15, oriented to person, place, time, and situation. Cranial nerves II-XII grossly intact. Motor strength 5/5 in all extremities. Sensory grossly intact. Cerebellar exam normal. Normal gait. Psych: Awake, alert, with orientation to person, place and time. Behavior, mood, and affect are within normal limits. 00:10 Constitutional: The patient appears in no acute distress, alert, awake, uncomfortable. 00:10 Abdomen/GI: Inspection: obese Bowel sounds: normal, in all quadrants, Palpation: moderate abdominal tenderness, in the epigastric area, right upper quadrant and left upper quadrant, mass, is not appreciated, rebound tenderness, is not appreciated, voluntary guarding, is not appreciated, involuntary guarding, is not appreciated, no appreciated organomegaly. 01:05 Abdomen/GI: Rectal exam: rectal tone normal, Stool: brown, guaiac positive, mh7 hemorrhoid(s), are not appreciated, mass, is not appreciated, swelling, is not appreciated, tenderness, is not appreciated, fecal impaction, is not appreciated, the exam is chaperoned by the nurse. Vital Signs: 03/21 22:28 BP 147 / 95; Pulse 97; Resp 16; Temp 98.3(O); Pulse Ox 100% on R/A; Weight 88.45 kg; hb Height 5 ft. 7 in. (170.18 cm); Pain 05/15; 03/22 03:48 BP 124 / 60; Pulse 80; Resp 19; Pulse Ox 100% on R/A; kd3 07:00 BP 137 / 71; Pulse 75; Resp 16; Pulse Ox 100% ; bp 08:43 BP 120 / 74; Pulse 74; Resp 16; Pulse Ox 99% ; bp 08/16 22:28 Body Mass Index 30.54 (88.45 kg, 170.18 cm) hb MDM: 06:03 Differential diagnosis: bowel obstruction, diverticulitis, gastritis, gastroesophageal mh7 reflux disease, non-specific abd pain, pancreatitis, Peptic Ulcer Disease, Perf. Duodenal Ulcer, Pyelonephritis, Ureterolithiasis, urinary tract infection. Data reviewed: vital signs, nurses notes, lab test result(s), CBC, electrolytes, EKG, radiologic studies, CT scan. Data interpreted: Pulse oximetry: on room air is 100 %. Interpretation: normal. Counseling: I had a detailed discussion with the patient and/or guardian regarding: the historical points, exam findings, and any diagnostic results supporting the discharge/admit diagnosis, lab results, radiology results, the need to transfer to another facility, [facility] does not immediately have the required specialist. Response to treatment: the patient's symptoms have mildly improved after treatment. 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 06:06 Patient medically screened. 03/22 00:15 Order name: CBC with Diff; Complete Time: 02:46 03/22 00:15 Order name: CMP; Complete Time: 03:34 03/22 00:15 Order name: Lipase; Complete Time: 03:34 03/22 00:15 Order name: Type And Screen; Complete Time: 03:34 03/22 00:15 Order name: SARS RAPID; Complete Time: 01:59 7 03/22 01:32 Order name: Urine Dipstick-Ancillary; Complete Time: 01:59 EDMS 03/22 03:29 Order name: Abdomen EDMS 03/22 00:15 Order name: IV Saline Lock; Complete Time: 02:12 03/22 00:15 Order name: Labs collected and sent; Complete Time: 02:12 03/22 00:15 Order name: Urine Dipstick-Ancillary (obtain specimen); Complete Time: 01:23 03/22 00:15 Order name: EKG; Complete Time: 00:43 03/22 00:15 Order name: EKG - Nurse/Tech; Complete Time: 03:48 mh7 Administered Medications: 02:05 Drug: NS 0.9% 1000 ml Route: IV; Rate: 1 bolus; Site: left antecubital; bb 07:57 Follow up: IV Status: Completed infusion bp 02:05 Drug: Zofran (Ondansetron) 4 mg Route: IVP; Site: left antecubital; bb 07:57 Follow up: Response: No adverse reaction bp 02:07 Drug: morphine 4 mg Route: IVP; Infused Over: 4 mins; Site: left antecubital; bb 07:57 Follow up: Response: Pain is decreased bp 02:12 Drug: ProTONIX (pantoprazole) 80 mg Route: IVP; Site: left antecubital; bb 07:57 Follow up: Response: No adverse reaction bp 04:05 Drug: morphine 4 mg Route: IM; Site: left deltoid; kd3 07:57 Follow up: Response: Pain is decreased bp 06:34 Drug: ProTONIX (pantoprazole) 8 mg/hr Route: IV; Rate: 25 ml/hr; Site: left hand; kd3 07:57 Follow up: IV Status: Infusion continued upon transfer bp 09:00 Drug: morphine 2 mg Route: IVP; Infused Over: 4 mins; Site: left hand; bp 09:00 Follow up: Response: No adverse reaction bp Disposition Summary: 03/22/22 06:06 Transfer Ordered Transfer Location: [place] [address] Reason: Higher level of care mh7 Condition: Stable mh7 Problem: new mh7 Symptoms: have improved mh7 Accepting Physician: GI(03/22/22 09:00) bp Diagnosis - Lower GI Bleeding mh7 - Upper abdominal pain, unspecified mh7 Forms: - Medication Reconciliation Form mh7 - SBAR form mh7 Signatures: Dispatcher [employer] EDLy Manjarrez RN RN Annalisa Gonsalez RN Tai Smith RN RN Kirill Figueroa DO DO ms3 Uli Concepcion MD MD 7 Joanne Belle RN RN kd3 Corrections: (The following items were deleted from the chart) 03:29 00:48 Abdomen Pelvis W Con+CT.RAD.BRZ ordered. EDMS EDMS 09:00 06:06 GI mh7 bp
[2022-03-22] MEDS ORDERED: MORPHINE 2 MG/ML SYR ONE (09:06)
[2022-03-22 09:44] VITALS: TEMP 98.3
[2022-03-22 09:51] VITALS: BP 120/74; O2SAT 99
--- NOTE | 2022-03-22 11:53 | RAD REPORT ---
EXAM DESCRIPTION: CT abdomen and pelvis without intravenous contrast CLINICAL HISTORY: 61 years Female Abdominal pain, acute, nonlocalized TECHNIQUE: Axial CT imaging of the abdomen and pelvis was performed without oral or intravenous cont rast. Sagittal and coronal reconstructed images were then performed. The CT study is performed acco rding to ALARA (as low as reasonably achievable) or ALARA/IMAGE GENTLY, with automatic adjustment of mA and/or kV according to patient size. Performed on: 03/22/2022 at 3:15 AM Comparison: CT abdomen and pelvis with contrast performed on 02/18/2022 and 05/18/2020. FINDINGS: Lung bases: The lung bases are clear. Liver: The liver is normal in size and configuration. No focal hepatic abnormalities are appreciated on this unenhanced scan. Liver attenuation is within normal limits. Spleen: The spleen is normal in size, configuration and attenuation. No focal splenic abnormalities a re appreciated on this unenhanced scan. Gallbladder and bile duct: The gallbladder is surgically absent. There is no biliary ductal dilatat ion. Pancreas: The pancreas is grossly normal in size and configuration. Adrenal Glands: The adrenal glands are normal in size and configuration. Kidneys: The kidneys are normal in size and configuration. There is no evidence of hydronephrosis. Th ere is no evidence of nephrolithiasis. No focal renal abnormalities are identified. Stomach: The stomach is grossly normal. There is no definite hiatal hernia. Bowel: The bowel gas pattern is non specific and non obstructive. Appendix: There is no CT evidence to suggest acute appendicitis. Free air: There is no evidence of free air. Free fluid: There is no evidence of free fluid. Vasculature: The aorta is normal in caliber and contour. The inferior vena cava is grossly unremarkab le. Lymphadenopathy: There are occasional mildly prominent central mesenteric lymph nodes which are nonsp ecific. These are grossly stable when compared to the prior study. There is also adjacent haziness of the mesenteric fat in this location. Findings could reflect chronic sclerosing mesenteritis. Bladder: The bladder is well distended and smooth in contour. Reproductive: The uterus is surgically absent. Bones: No acute osseous abnormalities are identified. Soft tissues: No acute soft tissue abnormalities are identified. IMPRESSION: 1. No evidence of acute intra-abdominal or intrapelvic pathology. 2. Remote cholecystectomy and hysterectomy. 3. Occasional mildly prominent nonspecific central mesenteric lymph nodes with adjacent hazy appear ance of the mesenteric fat. These findings are grossly stable when compared to the prior studies. Fin dings could reflect chronic sclerosing mesenteritis. Electronically signed by: Christin Rogers DO 03/22/2022 4:17 AM CDT Due to temporary technical issues with the PACS/Fluency reporting system, reports are being signed by the in house radiologists without review as a courtesy to insure prompt reporting. The interpreting radiologist is fully responsible for the content of the report.
== END 2022-03-22 09:00 | disposition short-term general hospital (02) ==
LOC: ER 21:26
DX: K92.2 Gastrointestinal hemorrhage, unspecified (principal); Z88.8 Allergy status to other drugs, medicaments and biological substances; I10 Essential (primary) hypertension; E11.9 Type 2 diabetes mellitus without complications; E03.9 Hypothyroidism, unspecified; Z20.822 Contact with and (suspected) exposure to COVID-19
CPT/HCPCS: 36415; 74176; 80053; 81003; 83690; 85025; 86850; 86900; 86901; 87811; C9113; J2270; J2405; J7030; J7050; Q9967

== ENCOUNTER 2022-04-15 01:49 | Emergency (ER) | payer OTHER ==
--- OUTSIDE RECORDS SUMMARY | 2022-04-15 01:56 | XMS REPORT | Continuity of Care Document ---
:1960 Author Organization [facility] t Address [address] [place] [address] Care Team Providers Name Role Phone TERRY VILLARREAL Primary Care Physician Unavailable Skylar Triana Attending Clinician Unavailable Terry Villarreal Attending Clinician Unavailable Sheryl Allison Attending Clinician Unavailable Doctor Unassigned, Hasty Attending Clinician Unavailable Sebasitán ABARCA, Karen Neely Attending Clinician Unavailable PRAKASH RODRIGUEZ Attending Clinician Unavailable Christin LEMUS, Prakash Lebron Attending Clinician Earnest Nunez MD Attending Clinician KUSUM PACHECO Attending Clinician Unavailable Kusum Iyer Attending Clinician Stanley Lobo Attending Clinician Unavailable Radiology Attending Clinician Unavailable Antonietta Wilson Attending Clinician Lola DAY, Jona Shari Attending Clinician Renée LEMUS, Mauro Attending Clinician Ross LEMUS, Gomez Attending Clinician Tai Avalos CRNA Attending Clinician Maribel Moody MD, Leonard Attending Clinician Naveen Alvarez MD Attending Clinician PRAKASH RODRIGUEZ Admitting Clinician Unavailable Christin LEMUS, Prakash Lebron Admitting Clinician Stanley Lobo Admitting Clinician Unavailable Gomez Hawkins MD Admitting Clinician Payers Payer Name Policy Type Policy Number Effective Date Expiration Date S ource Problems Condition Condition Condition Status Onset Resolution Last Treating Co mments Source Name Details Category Date Date Treatment Clinician Date GIB GIB Disease Active Univers (gastroint (gastroint 8-17 it y of estinal estinal 00:00: [place] bleeding) bleeding) 00 [facility] gregg Branch Sinus Sinus Disease Active Univers tachycardi tachycardi 6-20 it y of a a 00:00: Medical Branch Anemia Anemia Disease Active Univers 6-20 ity of 00:00: [place] 00 Medical Branch Essential Essential Disease Active Uni vers hypertensi hypertensi 6-20 it y of on on 00:00: 00 Medical Branch Type 2 Type 2 Disease Active Univers diabetes diabetes 6-20 ity of mellitus mellitus 00:00: [place] without without 00 Medical complicati complicati Br anch on, on, without without long-term long-term current current use of use of insulin insulin Colitis Colitis Disease Active Univers 6-16 ity of 00:00: [place] Medical Branch Obesity Obesity Disease Active Univers (BMI (BMI 6-16 ity of 30-39.9) 30-39.9) 00:00: 00 Medical Branch Allergies, Adverse Reactions, Alerts Allergy Allergy Status Severity Reaction(s) Onset Inactive Treating Comm ents Source Name Type Date Date Clinician No Known DA Active U [facility] Allergie 3-13 [facility] 00:00: Health 00 are [place] Monistat Adverse Active vaginal Common 1 Reaction swelling [facility] Latex Adverse Active rash Common Gloves Reaction [facility] NO KNOWN Drug Active Univers ALLERGIE Class ity of S [facility] Social History Social Habit Start Date Stop Date Quantity Comments Source History of Passive smoker University of tobacco use [facility] Alcohol intake 2022-03-27 2022-03-27 0 /d [facility] 00:00:00 00:00:00 [facility] Exposure to 2022-03-13 2022-03-23 Not sure [facility] SARS-CoV-2 00:00:00 08:52:00 [facility] (event) [place] Tobacco use and 2022-03-22 2022-03-22 Smokeless tobacco Un iversity of exposure 00:00:00 00:00:00 non-user [facility] Sex Ass[birth year] At [birth year] Universit y of 00:00:00 00:00:00 [facility] Smoking Status Start Date Stop Date Source Never smoked tobacco [facility] Medications Ordered Filled Start Stop Current Ordering Indication Dosage Frequency Signature Comments Components Source Medication Medication Date Date Medication? Clinician (SIG) Name Name pantoprazol Yes 40mg 40 mg, Univ ers e 8-20 Oral, ity of (PROTONIX) 14:00: DAILY, [place] EC tablet 00 First dose Medi gregg 40 mg on Sat Branch 03/25/22 at 0900, Until Discontinu ed, Routine pantoprazol 40mg 40 mg, Uni vers e 8-20 08-20 Oral, ity of (PROTONIX) 14:00: 05:28 DAILY, [place] tablet 00 :43 First dose Medi gregg 40 mg on Sat Branch 03/25/22 at 0900, Until Discontinu ed, Routine metFORMIN Yes 500mg Take 500 Uni vers (GLUCOPHAGE 8-19 mg by ity of ) 500 mg 22:28: mouth 2 [place] tablet 42 (two) Medical times Branch daily with meals. simvastatin Yes 20mg Take 20 mg Univers (ZOCOR) 20 8-19 by mouth ity o f mg tablet 22:28: at [place] 42 bedtime. Medical Branch acetaminoph Yes acetaminop Univers en-codeine - hen 300 ity of 300-30 mg 22:28: mg-codeine [place] tablet 42 30 mg Medical tablet Branch TAKE 1 TABLET BY MOUTH TWICE DAILY NEEDED traZODone Yes trazodone Uni vers 150 mg 03-24 150 mg ity of tablet 22:28: tablet [place] 42 TAKE 1 TO Medical 2 TABLETS Branch BY MOUTH EVERY NIGHT AT BEDTIME NEEDED FOR INSOMNIA traMADoL 50 Yes tramadol Un yan mg tablet 03-24 50 mg ity of 22:28: tablet [place] 42 TAKE 1 Medical TABLET BY Branch MOUTH THREE TIMES DAILY sucralfate Yes sucralfate U nivers 1 gram 03-24 1 gram ity of tablet 22:28: tablet [place] 42 TAKE 1 Medical TABLET BY Branch MOUTH BEFORE MEALS AND AT BEDTIME spironolact Yes spironolac Univers one 25 mg - tone 25 mg ity of tablet 22:28: tablet [place] 42 TAKE 1 Medical TABLET BY Branch MOUTH EVERY DAY SITagliptin Yes Januvia Uni vers (JANUVIA) 03-24 100 mg ity of 100 mg 22:28: tablet [place] tablet 42 TAKE 1 Medical TABLET BY Branch MOUTH EVERY DAY FOR 16 DAYS QUEtiapine Yes quetiapine U nivers 300 mg 03-24 300 mg ity of tablet 22:28: tablet [place] 42 TAKE 1 Medical TABLET BY Branch MOUTH EVERY EVENING 1 TO 1.5 HOUR PRIOR TO BEDTIME WITH 300 CALORIES SNACK QUEtiapine Yes quetiapine U nivers 200 mg 03-24 200 mg ity of tablet 22:28: tablet [place] 42 TAKE 1 Medical TABLET BY Branch MOUTH TWICE DAILY pantoprazol Yes pantoprazo Univers e 40 mg EC 03-24 le 40 mg ity o f tablet 22:28: tablet,del [place] 42 ayed Medical release Branch TAKE 1 TABLET BY MOUTH EVERY DAY montelukast Yes montelukas Univers 10 mg 8- t 10 mg ity of tablet 22:28: tablet [place] 42 TAKE 1 Medical TABLET BY Branch MOUTH EVERY DAY IN THE EVENING methocarbam Yes methocarba Univers oL 500 mg 8- mol 500 mg ity of tablet 22:28: tablet [place] [address] TAKE 1 Medical TABLET BY Branch MOUTH THREE TIMES DAILY FOR 5 DAYS meloxicam Yes meloxicam Uni vers 15 mg 8-19 15 mg ity of tablet 22:28: tablet [place] 42 TAKE 1 Medical TABLET BY Branch MOUTH EVERY DAY losartan 50 Yes losartan Un yan mg tablet 8-19 50 mg ity of 22:28: tablet [place] 42 TAKE 1 Medical TABLET BY Branch MOUTH TWICE DAILY levothyroxi Yes levothyrox Univers ne 175 mcg 8- ine 175 ity of tablet 22:28: mcg tablet [place] 42 TAKE 1 Medical TABLET BY Branch MOUTH EVERY MORNING gabapentin Yes gabapentin U nivers 300 mg 8- 300 mg ity of capsule 22:28: capsule [place] [address] TAKE 1 Medical CAPSULE BY Branch MOUTH AT BEDTIME DULoxetine Yes duloxetine U nivers 60 mg 8-19 60 mg ity of capsule 22:28: capsule,de [place] 42 layed Medical release [place] TAKE 1 CAPSULE BY MOUTH TWICE DAILY divalproex Yes divalproex U nivers 500 mg EC 8-19 500 mg ity of tablet 22:28: tablet,del [place] 42 ayed Medical release [place] TAKE 1 TABLET BY MOUTH DAILY amLODIPine Yes amlodipine U nivers 5 mg tablet 03-24 5 mg ity of 22:28: tablet [place] [address] TAKE 1 Medical TABLET BY Branch MOUTH TWICE DAILY acetaminoph Yes 1{tbl} Take 1 Un yan en-codeine 8-19 tablet by ity of (TYLENOL-CO 22:28: mouth 3 [place] DEINE #4) 42 (three) Medical 300-60 mg times Branch tablet daily. metFORMIN Yes 500mg Take 500 Uni vers (GLUCOPHAGE 8-19 mg by ity of ) 500 mg 22:28: mouth 2 [place] tablet 42 (two) Medical times Branch daily with meals. simvastatin Yes 20mg Take 20 mg Univers (ZOCOR) 20 8-19 by mouth ity o f mg tablet 22:28: at [place] [address] bedtime. Medical Branch acetaminoph Yes acetaminop Univers en-codeine 8-19 hen 300 ity of 300-30 mg 22:28: mg-codeine [place] tablet 42 30 mg Medical tablet Branch TAKE 1 TABLET BY MOUTH TWICE DAILY NEEDED traZODone Yes trazodone Uni vers 150 mg 8- 150 mg ity of tablet 22:28: tablet [place] 42 TAKE 1 TO Medical 2 TABLETS Branch BY MOUTH EVERY NIGHT AT BEDTIME NEEDED FOR INSOMNIA traMADoL 50 Yes tramadol Un yan mg tablet 03-24 50 mg ity of 22:28: tablet [place] 42 TAKE 1 Medical TABLET BY Branch MOUTH THREE TIMES DAILY sucralfate Yes sucralfate U nivers 1 gram 8- 1 gram ity of tablet 22:28: tablet [place] 42 TAKE 1 Medical TABLET BY Branch MOUTH BEFORE MEALS AND AT BEDTIME spironolact Yes spironolac Univers one 25 mg 8- tone 25 mg ity of tablet 22:28: tablet [place] 42 TAKE 1 Medical TABLET BY Branch MOUTH EVERY DAY SITagliptin Yes Januvia Uni vers (JANUVIA) 8- 100 mg ity of 100 mg 22:28: tablet [place] tablet 42 TAKE 1 Medical TABLET BY Branch MOUTH EVERY DAY FOR 16 DAYS QUEtiapine Yes quetiapine U nivers 300 mg 8- 300 mg ity of tablet 22:28: tablet [place] 42 TAKE 1 Medical TABLET BY Branch MOUTH EVERY EVENING 1 TO 1.5 HOUR PRIOR TO BEDTIME WITH 300 CALORIES SNACK QUEtiapine Yes quetiapine U nivers 200 mg 8- 200 mg ity of tablet 22:28: tablet [place] 42 TAKE 1 Medical TABLET BY Branch MOUTH TWICE DAILY pantoprazol Yes pantoprazo Univers e 40 mg EC 8- le 40 mg ity o f tablet 22:28: tablet,del [place] 42 ayed Medical release Branch TAKE 1 TABLET BY MOUTH EVERY DAY montelukast Yes montelukas Univers 10 mg 8- t 10 mg ity of tablet 22:28: tablet [place] 42 TAKE 1 Medical TABLET BY Branch MOUTH EVERY DAY IN THE EVENING methocarbam Yes methocarba Univers oL 500 mg 8- mol 500 mg ity of tablet 22:28: tablet [place] 42 TAKE 1 Medical TABLET BY Branch MOUTH THREE TIMES DAILY FOR 5 DAYS meloxicam Yes meloxicam Uni vers 15 mg 8-19 15 mg ity of tablet 22:28: tablet [place] 42 TAKE 1 Medical TABLET BY Branch MOUTH EVERY DAY losartan 50 Yes losartan Un yan mg tablet 8- 50 mg ity of 22:28: tablet 42 TAKE 1 Medical TABLET BY Branch MOUTH TWICE DAILY levothyroxi Yes levothyrox Univers ne 175 mcg 8- ine 175 ity of tablet 22:28: mcg tablet 42 TAKE 1 Medical TABLET BY Branch MOUTH EVERY MORNING gabapentin Yes gabapentin U nivers 300 mg 8- 300 mg ity of capsule 22:28: capsule [place] 42 TAKE 1 Medical CAPSULE BY Branch MOUTH AT BEDTIME DULoxetine Yes duloxetine U nivers 60 mg 8- 60 mg ity of capsule 22:28: capsule,de [place] 42 layed Medical release Branch TAKE 1 CAPSULE BY MOUTH TWICE DAILY divalproex Yes divalproex U nivers 500 mg EC 8-19 500 mg ity of tablet 22:28: tablet,del [place] 42 ayed Medical release Branch TAKE 1 TABLET BY MOUTH DAILY amLODIPine Yes amlodipine U nivers 5 mg tablet 8- 5 mg ity of 22:28: tablet 42 TAKE 1 Medical TABLET BY Branch MOUTH TWICE DAILY acetaminoph Yes 1{tbl} Take 1 Un yan en-codeine 8-19 tablet by ity of (TYLENOL-CO 22:28: mouth 3 [place] DEINE #4) 42 (three) Medical 300-60 mg times Branch tablet daily. metFORMIN Yes 500mg Take 500 Uni vers (GLUCOPHAGE 8-19 mg by ity of ) 500 mg 22:28: mouth 2 [place] tablet 42 (two) Medical times Branch daily with meals. simvastatin Yes 20mg Take 20 mg Univers (ZOCOR) 20 8-19 by mouth ity o f mg tablet 22:28: at [place] 42 bedtime. Medical Branch acetaminoph Yes acetaminop Univers en-codeine 8-19 hen 300 ity of 300-30 mg 22:28: mg-codeine [place] tablet 42 30 mg Medical tablet Branch TAKE 1 TABLET BY MOUTH TWICE DAILY NEEDED traZODone Yes trazodone Uni vers 150 mg 8-19 150 mg ity of tablet 22:28: tablet [place] 42 TAKE 1 TO Medical 2 TABLETS Branch BY MOUTH EVERY NIGHT AT BEDTIME NEEDED FOR INSOMNIA traMADoL 50 Yes tramadol Un yan mg tablet 8 50 mg ity of 22:28: tablet [place] 42 TAKE 1 Medical TABLET BY Branch MOUTH THREE TIMES DAILY sucralfate Yes sucralfate U nivers 1 gram - 1 gram ity of tablet 22:28: tablet [place] 42 TAKE 1 Medical TABLET BY Branch MOUTH BEFORE MEALS AND AT BEDTIME spironolact Yes spironolac Univers one 25 mg 8- tone 25 mg ity of tablet 22:28: tablet [place] 42 TAKE 1 Medical TABLET BY Branch MOUTH EVERY DAY SITagliptin Yes Januvia Uni vers (JANUVIA) 8 100 mg ity of 100 mg 22:28: tablet [place] tablet 42 TAKE 1 Medical TABLET BY Branch MOUTH EVERY DAY FOR 16 DAYS QUEtiapine Yes quetiapine U nivers 300 mg 03-24 300 mg ity of tablet 22:28: tablet [place] 42 TAKE 1 Medical TABLET BY Branch MOUTH EVERY EVENING 1 TO 1.5 HOUR PRIOR TO BEDTIME WITH 300 CALORIES SNACK QUEtiapine Yes quetiapine U nivers 200 mg 03-24 200 mg ity of tablet 22:28: tablet [place] 42 TAKE 1 Medical TABLET BY Branch MOUTH TWICE DAILY pantoprazol Yes pantoprazo Univers e 40 mg EC 8- le 40 mg ity o f tablet 22:28: tablet,del [place] 42 ayed Medical release Branch TAKE 1 TABLET BY MOUTH EVERY DAY montelukast Yes montelukas Univers 10 mg 03-24 t 10 mg ity of tablet 22:28: tablet [place] 42 TAKE 1 Medical TABLET BY Branch MOUTH EVERY DAY IN THE EVENING methocarbam Yes methocarba Univers oL 500 mg 8- mol 500 mg ity of tablet 22:28: tablet [place] 42 TAKE 1 Medical TABLET BY Branch MOUTH THREE TIMES DAILY FOR 5 DAYS meloxicam Yes meloxicam Uni vers 15 mg 8- 15 mg ity of tablet 22:28: tablet [place] 42 TAKE 1 Medical TABLET BY Branch MOUTH EVERY DAY losartan 50 Yes losartan Un yan mg tablet 8 50 mg ity of 22:28: tablet [place] 42 TAKE 1 Medical TABLET BY Branch MOUTH TWICE DAILY levothyroxi Yes levothyrox Univers ne 175 mcg 8- ine 175 ity of tablet 22:28: mcg tablet 42 TAKE 1 Medical TABLET BY Branch MOUTH EVERY MORNING gabapentin Yes gabapentin U nivers 300 mg 8-19 300 mg ity of capsule 22:28: capsule 42 TAKE 1 Medical CAPSULE BY Branch MOUTH AT BEDTIME DULoxetine Yes duloxetine U nivers 60 mg 8- 60 mg ity of capsule 22:28: capsule,de [place] 42 layed Medical release Branch TAKE 1 CAPSULE BY MOUTH TWICE DAILY divalproex Yes divalproex U nivers 500 mg EC 8-19 500 mg ity of tablet 22:28: tablet,del [place] 42 ayed Medical release Branch TAKE 1 TABLET BY MOUTH DAILY amLODIPine Yes amlodipine U nivers 5 mg tablet - 5 mg ity of 22:28: tablet [place] TAKE 1 Medical TABLET BY Branch MOUTH TWICE DAILY acetaminoph Yes 1{tbl} Take 1 Un yan en-codeine 8-19 tablet by ity of (TYLENOL-CO 22:28: mouth 3 [place] DEINE #4) 42 (three) Medical 300-60 mg times Branch tablet daily. metFORMIN Yes 500mg Take 500 Uni vers (GLUCOPHAGE 8-19 mg by ity of ) 500 mg 22:28: mouth 2 [place] tablet 42 (two) Medical times Branch daily with meals. simvastatin Yes 20mg Take 20 mg Univers (ZOCOR) 20 8-19 by mouth ity o f mg tablet 22:28: at [place] [address] bedtime. Medical Branch acetaminoph Yes acetaminop Univers en-codeine 8-19 hen 300 ity of 300-30 mg 22:28: mg-codeine [place] tablet 42 30 mg Medical tablet Branch TAKE 1 TABLET BY MOUTH TWICE DAILY NEEDED traZODone Yes trazodone Uni vers 150 mg 8-19 150 mg ity of tablet 22:28: tablet [place] 42 TAKE 1 TO Medical 2 TABLETS Branch BY MOUTH EVERY NIGHT AT BEDTIME NEEDED FOR INSOMNIA traMADoL 50 Yes tramadol Un yan mg tablet 8-19 50 mg ity of 22:28: tablet [place] 42 TAKE 1 Medical TABLET BY Branch MOUTH THREE TIMES DAILY sucralfate Yes sucralfate U nivers 1 gram 03-24 1 gram ity of tablet 22:28: tablet [place] 42 TAKE 1 Medical TABLET BY Branch MOUTH BEFORE MEALS AND AT BEDTIME spironolact Yes spironolac Univers one 25 mg 03-24 tone 25 mg ity of tablet 22:28: tablet [place] 42 TAKE 1 Medical TABLET BY Branch MOUTH EVERY DAY SITagliptin Yes Januvia Uni vers (JANUVIA) 03-24 100 mg ity of 100 mg 22:28: tablet [place] tablet 42 TAKE 1 Medical TABLET BY Branch MOUTH EVERY DAY FOR 16 DAYS QUEtiapine Yes quetiapine U nivers 300 mg 03-24 300 mg ity of tablet 22:28: tablet [place] 42 TAKE 1 Medical TABLET BY Branch MOUTH EVERY EVENING 1 TO 1.5 HOUR PRIOR TO BEDTIME WITH 300 CALORIES SNACK QUEtiapine Yes quetiapine U nivers 200 mg 03-24 200 mg ity of tablet 22:28: tablet [place] 42 TAKE 1 Medical TABLET BY Branch MOUTH TWICE DAILY pantoprazol Yes pantoprazo Univers e 40 mg EC 03-24 le 40 mg ity o f tablet 22:28: tablet,del [place] 42 ayed Medical release Branch TAKE 1 TABLET BY MOUTH EVERY DAY montelukast Yes montelukas Univers 10 mg 03-24 t 10 mg ity of tablet 22:28: tablet [place] 42 TAKE 1 Medical TABLET BY Branch MOUTH EVERY DAY IN THE EVENING methocarbam Yes methocarba Univers oL 500 mg 03-24 mol 500 mg ity of tablet 22:28: tablet [place] 42 TAKE 1 Medical TABLET BY Branch MOUTH THREE TIMES DAILY FOR 5 DAYS meloxicam Yes meloxicam Uni vers 15 mg 03-24 15 mg ity of tablet 22:28: tablet [place] 42 TAKE 1 Medical TABLET BY Branch MOUTH EVERY DAY losartan 50 Yes losartan Un yan mg tablet 03-24 50 mg ity of 22:28: tablet [place] 42 TAKE 1 Medical TABLET BY Branch MOUTH TWICE DAILY levothyroxi Yes levothyrox Univers ne 175 mcg 03-24 ine 175 ity of tablet 22:28: mcg tablet [place] 42 TAKE 1 Medical TABLET BY Branch MOUTH EVERY MORNING gabapentin Yes gabapentin U nivers 300 mg 8-19 300 mg ity of capsule 22:28: capsule [place] 42 TAKE 1 Medical CAPSULE BY Branch MOUTH AT BEDTIME DULoxetine Yes duloxetine U nivers 60 mg 8-19 60 mg ity of capsule 22:28: capsule,de [place] 42 layed Medical release Branch TAKE 1 CAPSULE BY MOUTH TWICE DAILY divalproex Yes divalproex U nivers 500 mg EC 8-19 500 mg ity of tablet 22:28: tablet,del [place] 42 ayed Medical release [place] TAKE 1 TABLET BY MOUTH DAILY amLODIPine Yes amlodipine U nivers 5 mg tablet 8 5 mg ity of 22:28: tablet [place] 42 TAKE 1 Medical TABLET BY Branch MOUTH TWICE DAILY acetaminoph Yes 1{tbl} Take 1 Un yan en-codeine 8- tablet by ity of (TYLENOL-CO 22:28: mouth 3 [place] DEINE #4) 42 (three) Medical 300-60 mg times Branch tablet daily. bisacodyL 2021- No 10mg 10 mg, Unive rs (DULCOLAX) 03-23 Oral, ity of tablet 10 21:30: 23:50 PRE-PROCED [place] mg 00 :00 URE ONCE, Medical 1 dose, Branch Starting on Sun03/23/22 at 1630, Until Discontinu ed, Routine, Bowel Prep, Colonoscop y bisacodyL 2021- No 10mg 10 mg, Unive rs (DULCOLAX) 03-23 Oral, ity of tablet 10 21:30: 23:50 PRE-PROCED [place] mg 00 :00 URE ONCE, Medical 1 dose, Branch Starting on Sun03/23/22 at 1630, Until Discontinu ed, Routine, Bowel Prep, Colonoscop y bisacodyL 2021- No 10mg 10 mg, Unive rs (DULCOLAX) 03-23 Oral, ity of tablet 10 21:30: 23:50 PRE-PROCED [place] mg 00 :00 URE ONCE, Medical 1 dose, Branch Starting on Sun03/23/22 at 1630, Until Discontinu ed, Routine, Bowel Prep, Colonoscop y peg-electro 2021-0 Yes 4000mL 4,000 mL, Univers lyte soln 8-18 Oral, PRN ity o f (GOLYTELY) 18:32: - SEE [place] - 54 INSTRUCTIO Me dical .74 -5.86 NS, Branch gram Starting solution on Analy 4,000 mL 03/23/22 at 1332, Until Discontinu ed, Routine, Bowel Prep, colonoscop y ondansetron 2021-0 Yes 4mg 4 mg, Slow Univers (ZOFRAN 8-18 IV Push, ity of (PF)) 18:32: Q6HPRN, [place] injection 4 54 Starting Medi gregg mg on Analy Branch 03/23/22 at 1332, Until Discontinu ed, Routine, Nausea and Vomiting (N/V) peg-electro 2021-0 Yes 4000mL 4,000 mL, Univers lyte soln 8-18 Oral, PRN ity o f (GOLYTELY) 18:32: - SEE [place] [id number] INSTRUCTIO Nj dical .74 -5.86 NS, Branch gram Starting solution on Analy 4,000 mL 03/23/22 at 1332, Until Discontinu ed, Routine, Bowel Prep, colonoscop y ondansetron 2021-0 Yes 4mg 4 mg, Slow Univers (ZOFRAN 8-18 IV Push, ity of (PF)) 18:32: Q6HPRN, [place] injection 4 54 Starting Medi gregg mg on Analy Branch 03/23/22 at 1332, Until Discontinu ed, Routine, Nausea and Vomiting (N/V) peg-electro 2021-0 2021- No 4000mL 4,000 mL, Univers lyte soln 8-18 08-20 Oral, PRN ity of (GOLYTELY) 18:32: 05:28 - SEE [place] 6 54 :43 INSTRUCTIO Me dical .74 -5.86 NS, Branch gram Starting solution on Analy 4,000 mL 03/23/22 at 1332, Until 03/25/22 at 0028, Routine, Bowel Prep, colonoscop y ondansetron 2021-0 2021- No 4mg 4 mg, Slow Univers (ZOFRAN 8-18 08-20 IV Push, ity of (PF)) 18:32: 05:28 Q6HPRN, [place] injection 4 54 :43 Starting Medi gregg mg on Analy Branch 03/23/22 at 1332, Until 03/25/22 at 0028, Routine, Nausea and Vomiting (N/V) bisacodyL 2021- No 10mg 10 mg, Unive rs (DULCOLAX) 03-23 Oral, ity of tablet 10 18:32: 18:47 PRE-PROCED [place] mg 54 :00 URE ONCE, Medical 1 dose, Branch Starting on Analy 03/23/22 at 1332, Until Analy 03/23/22 at 1347, Routine, Bowel Prep, Colonoscop y bisacodyL 2021- No 10mg 10 mg, Unive rs (DULCOLAX) 03-23 Oral, ity of tablet 10 18:32: 18:47 PRE-PROCED [place] mg 54 :00 URE ONCE, Medical 1 dose, Branch Starting on Analy 03/23/22 at 1332, Until Analy 03/23/22 at 1347, Routine, Bowel Prep, Colonoscop y bisacodyL 2021- No 10mg 10 mg, Unive rs (DULCOLAX) 03-23 Oral, ity of tablet 10 18:32: 18:47 PRE-PROCED [place] mg 54 :00 URE ONCE, Medical 1 dose, Branch Starting on Analy 03/23/22 at 1332, Until Analy 03/23/22 at 1347, Routine, Bowel Prep, Colonoscop y maalox-lido 2021-0 Yes 5mL 5 mL, Unive rs usha 2% 03-23 Oral, ity of viscous 1:1 16:35: TIDPRN, [place] 52 Starting Medic al (COMPOUNDED on [facility] Branch ) 03/23/22 at 1135, Until Discontinu ed, Routine, stomach pain maalox-lido 2021-0 Yes 5mL 5 mL, Unive rs usha 2% 03-23 Oral, ity of viscous 1:1 16:35: TIDPRN, [place] 52 Starting Medic al (COMPOUNDED on [facility] Branch ) 03/23/22 at 1135, Until Discontinu ed, Routine, stomach pain maalox-lido 2021- No 5mL 5 mL, Univ ers usha 2% 03-23 Oral, ity of viscous 1:1 16:35: 05:28 TIDPRN, [place] suspension 52 :43 Starting Medic al (COMPOUNDED on [facility] ) 03/23/22 at 1135, Until 03/25/22 at 0028, Routine, stomach pain DULoxetine Yes 60mg 60 mg, Unive rs (CYMBALTA) 03-23 Oral, ity of capsule 60 14:00: DAILY, [place] mg 00 First dose Medical on [facility] 03/23/22 at 0900, Until Discontinu ed, Routine DULoxetine Yes 60mg 60 mg, Unive rs (CYMBALTA) 03-23 Oral, ity of capsule 60 14:00: DAILY, [place] mg 00 First dose Medical on [facility] 03/23/22 at 0900, Until Discontinu ed, Routine DULoxetine 2021- No 60mg 60 mg, Univ ers (CYMBALTA) 03-23 Oral, ity of capsule 60 14:00: 05:28 DAILY, [place] mg 00 :43 First dose Medical on [facility] 03/23/22 at 0900, Until Discontinu ed, Routine levothyroxi Yes 175ug 175 mcg, U nivers ne 03-23 Oral, ity of (SYNTHROID) 11:00: QAM-0600, [place] tablet 175 00 First dose Med ical mcg on [facility] 03/23/22 at 0600, Until Discontinu ed, Routine levothyroxi Yes 175ug 175 mcg, U nivers ne 03-23 Oral, ity of (SYNTHROID) 11:00: QAM-0600, [place] tablet 175 00 First dose Med ical mcg on [facility] 03/23/22 at 0600, Until Discontinu ed, Routine levothyroxi 2021- No 175ug 175 mcg, Univers ne 03-23 Oral, ity of (SYNTHROID) 11:00: 05:28 QAM-0600, [place] tablet 175 00 :43 First dose Med ical mcg on Analy Branch 03/23/22 at 0600, Until Discontinu ed, Routine HYDROcodone 2022-0 2- No 1{tbl} 1 tablet, Univers -acetaminop 8-23 03- Oral, ity of hen (NORCO 08:30: 07:29 ONCE, 1 [place] 5) 5-325 mg 00 :00 dose, On Medi gregg tablet u Branch tablet 03/23/22 at 0330, Routine HYDROcodone 2021-0 2021- No 1{tbl} 1 tablet, Univers -acetaminop -03-23 Oral, ity of hen (NORCO 08:30: 07:29 ONCE, 1 [place] 5) 5-325 mg 00 :00 dose, On Medi gregg tablet u Branch tablet 03/23/22 at 0330, Routine HYDROcodone 2021-0 2- No 1{tbl} 1 tablet, Univers -acetaminop 03-23 Oral, ity of hen (NORCO 08:30: 07:29 ONCE, 1 [place] 5) 5-325 mg 00 :00 dose, On Medi gregg tablet u Branch tablet 03/23/22 at 0330, Routine simvastatin 2-0 Yes 20mg 20 mg, Univ ers (ZOCOR) 8-18 Oral, QHS, ity of tablet 20 02:00: First dose [place] mg 00 on [facility] 03/22/22 at Branch 2100, Until Discontinu ed, Routine gabapentin 2022-0 Yes 300mg 300 mg, Uni vers (NEURONTIN) 8-18 Oral, QHS, it y of capsule 300 02:00: First dose [place] mg 00 on [facility] 03/22/22 at Branch 2100, Until Discontinu ed, Routine simvastatin 2022-0 Yes 20mg 20 mg, Univ ers (ZOCOR) 8-18 Oral, QHS, ity of tablet 20 02:00: First dose [place] mg 00 on [facility] 03/22/22 at Branch 2100, Until Discontinu ed, Routine gabapentin 2022-0 Yes 300mg 300 mg, Uni vers (NEURONTIN) 8-18 Oral, QHS, it y of capsule 300 02:00: First dose [place] mg 00 on [facility] 03/22/22 at Branch 2100, Until Discontinu ed, Routine simvastatin 2022-0 2022- No 20mg 20 mg, Uni vers (ZOCOR) 03-23 Oral, QHS, ity o f tablet 20 02:00: 05:28 [place] mg 00 :43 on [facility] 03/22/22 at [place] 2100, Until Discontinu ed, Routine gabapentin 2021-2021- No 300mg 300 mg, Un yan (NEURONTIN) 03-23 Oral, QHS, i ty of capsule 300 02:00: 05:28 First dose [place] mg 00 :43 on [facility] 03/22/22 at [place] 2100, Until Discontinu ed, Routine QUEtiapine Yes 200mg 200 mg, Uni vers (SEROQUEL) 03-23 Oral, BID, ity of tablet 200 01:00: First dose [place] mg 00 on [facility] 03/22/22 at [place] 1999, Until Discontinu ed, Routine QUEtiapine Yes 200mg 200 mg, Uni vers (SEROQUEL) 03-23 Oral, BID, ity of tablet 200 01:00: First dose [place] mg 00 on [facility] 03/22/22 at [place] 1999, Until Discontinu ed, Routine QUEtiapine 2021- No 200mg 200 mg, Un yan (SEROQUEL) 03-23 Oral, BID, it y of tablet 200 01:00: 05:28 First dose [place] mg 00 :43 on [facility] 03/22/22 at [place] 1999, Until Discontinu ed, Routine acetaminoph Yes 650mg 650 mg, Un yan en 03-22 Oral, ity of (TYLENOL) 23:39: Q6HPRN, [place] tablet 650 24 Starting Medic al mg on [facility] 03/22/22 at 1839, Until Discontinu ed, Routine, Pain (scale 1-3) acetaminoph 0 Yes 650mg 650 mg, Un yan en 03-22 Oral, ity of (TYLENOL) 23:39: Q6HPRN, [place] tablet 650 24 Starting Medic al mg on [facility] 03/22/22 at 1839, Until Discontinu ed, Routine, Pain (scale 1-3) acetaminoph 2021- No 650mg 650 mg, U nivers en 03-22 Oral, ity of (TYLENOL) 23:39: 05:28 Q6HPRN, [place] tablet 650 24 :43 Starting Medic al mg on [place] 03/22/22 at 1839, Until 03/25/22 at 0028, Routine, Pain (scale 1-3) traMADoL 0 Yes 50mg 50 mg, Univers (ULTRAM) 03-22 Oral, ity of tablet 50 23:12: Q6HPRN, [place] mg 10 Starting Medical on Sun [place] 03/22/22 at 1812, Until Discontinu ed, Routine, Pain (scale 7-10) traMADoL 0 Yes 50mg 50 mg, Univers (ULTRAM) 03-22 Oral, ity of tablet 50 23:12: Q6HPRN, [place] mg 10 Starting Medical on Sun [place] 03/22/22 at 1812, Until Discontinu ed, Routine, Pain (scale 7-10) traMADoL 2021- No 50mg 50 mg, Univer s (ULTRAM) 03-22 Oral, ity of tablet 50 23:12: 05:28 Q6HPRN, [place] 10 :43 Starting Medical on [place] 03/22/22 at 1812, Until 03/25/22 at 0028, Routine, Pain (scale 7-10) Sliding Yes Subcutaneo Univ ers Scale 8-17 us, TID ity of Insulin - 22:00: MEALS+HS, [place] Lispro 00 First dose Medical (HumaLOG) + on Sun [facility] 03/22/22 at [place] 1700, Until Discontinu ed, Routine Sliding Yes Subcutaneo [facility] [place] [facility] ers Scale 8-17 us, TID ity of Insulin - 22:00: MEALS+HS, [place] Lispro 00 First dose Medical [facility]HumaLOG[facility] at [place] [facility]00, Until Discontinu ed, Routine Sliding 0 2021- No Subcutaneo Uni vers Scale 8- 08-20 us, TID ity of Insulin - 22:00: 05:28 MEALS+HS, [place] Lispro 00 :43 First dose Medical (HumaLOG) + [facility]22 at [place] 1700, Until Discontinu ed, Routine glucagon 2021-0 Yes 1mg 1 mg, Univers (GLUCAGEN 03-22 Intramuscu ity of DIAGNOSTIC 20:58: lar, PRN, [place] KIT) 52 Starting Medical injection 1 on [facility] 03/22/22 at 1558, Until Discontinu ed, PRINCE, Blood Glucose < or = 70 mg/dL and patient is unable to swallow or has mental changes. glucagon 2021-0 Yes 1mg 1 mg, Univers (GLUCAGEN 03-22 Intramuscu ity of DIAGNOSTIC 20:58: lar, PRN, [place] KIT) 52 Starting Medical injection 1 on [facility] 03/22/22 at 1558, Until Discontinu ed, PRINCE, Blood Glucose < or = 70 mg/dL and patient is unable to swallow or has mental changes. glucagon 2021-0 2021- No 1mg 1 mg, Univers (GLUCAGEN 03-22 Intramuscu ity of DIAGNOSTIC 20:58: 05:28 lar, PRN, [place] KIT) 52 :43 Starting Medical injection 1 on [facility] 03/22/22 at 1558, Until 03/25/22 at 0028, PRINCE, Blood Glucose < or = 70 mg/dL and patient is unable to swallow or has mental changes. dextrose 50 2021-0 Yes 25mL 25 mL, Univ ers % in water 03-22 Slow IV ity of (D50W) 20:58: Push, PRN, [place] injection 51 Starting Medica l 25 mL on [facility] 03/22/22 at 1558, Until Discontinu ed, PRINCE, Blood Glucose < or = 70 mg/dL and patient is unable to swallow or has mental status changes. dextrose 50 2021-0 Yes 25mL 25 mL, Univ ers % in water 03-22 Slow IV ity of (D50W) 20:58: Push, PRN, [place] injection 51 Starting Medica l 25 mL on [facility] 03/22/22 at 1558, Until Discontinu ed, PRINCE, Blood Glucose < or = 70 mg/dL and patient is unable to swallow or has mental status changes. dextrose 50 2021-0 202- No 25mL 25 mL, Uni vers % in water 03-22 Slow IV ity o f (D50W) 20:58: 05:28 Push, [place]N, [place] injection 51 :43 Starting Medica l 25 mL on [place] Branch 03/22/22 at 1558, Until 03/25/22 at 0028, PRINCE, Blood Glucose < or = 70 mg/dL and patient is unable to swallow or has mental status changes. pantoprazol Yes 8mg/h 8 mg/hr Un yan e 03-22 (50 ity of (PROTONIX) 18:45: mL/hr), IV [place] 80 mg in 00 Infusion, Medica l NaCl 0.9% CONTINUOUS Bran ch (NS) 500 mL , Starting infusion on Sun03/22/22 at 1345 pantoprazol 2021-0 202- No 8mg/h 8 mg/hr U nivers e 03-22 (50 ity of (PROTONIX) 18:45: 22:22 mL/hr), IV [place] 80 mg in 00 :23 Infusion, Medica l NaCl 0.9% CONTINUOUS Bran ch (NS) 500 mL , Starting infusion on Sun03/22/22 at 1345 pantoprazol 2021-0 2021- No 8mg/h 8 mg/hr U nivers e 03-22 (50 ity of (PROTONIX) 18:45: 22:22 mL/hr), IV [place] 80 mg in 00 :23 Infusion, Medica l NaCl 0.9% CONTINUOUS Bran ch (NS) 500 mL , Starting infusion on Sun03/22/22 at 1345 morpHINE (2 2021- No 2mg 2 mg, Slow Univers mg/mL) 03-22 IV Push, ity of injection 2 18:32: 20:36 Q4HPRN, [place] mg 31 :18 Starting Medical on [place] Branch 03/22/22 at 1332, Until Sun03/22/22 at 1536, Routine, Pain (scale 7-10) morpHINE (2 2021- No 2mg 2 mg, Slow Univers mg/mL) 03-22 IV Push, ity of injection 2 18:32: 20:36 Q4HPRN, [place] mg 31 :18 Starting Medical on [place] Branch 03/22/22 at 1332, Until Sun03/22/22 at 1536, Routine, Pain (scale 7-10) morpHINE (2 2021-0 2021- No 2mg 2 mg, Slow Univers mg/mL) 03-22 IV Push, ity of injection 2 18:32: 20:36 Q4HPRN, [place] mg 31 :18 Starting Medical on [place] Branch 03/22/22 at 1332, Until Sun03/22/22 at 1536, Routine, Pain (scale 7-10) NaCl 0.9% 2021-0 Yes 10mL 10 mL, Univer s (NS) 03-22 Slow IV ity of injection 18:06: Push, PRN, [place] 10 mL 57 Starting Medical on [place] Branch 03/22/22 at 1306, Until Discontinu ed, Routine, line maintenanc e lidocaine 2021-0 Yes 5mL 5 mL, Univers 1% (PF) 03-22 Subcutaneo ity of (XYLOCAINE) 18:06: us, PRN, [place] injection 5 57 Starting Medi gregg mL on [place] Branch 03/22/22 at 1306, Until Discontinu ed, Routine, Local anesthesia NaCl 0.9% 2021-0 Yes 10mL 10 mL, Univer s (NS) 03-22 Slow IV ity of injection 18:06: Push, PRN, [place] 10 mL 57 Starting Medical on [place] Branch 03/22/22 at 1306, Until Discontinu ed, Routine, line maintenanc e lidocaine 2021-0 Yes 5mL 5 mL, Univers 1% (PF) 03-22 Subcutaneo ity of (XYLOCAINE) 18:06: us, PRN, [place] injection 5 57 Starting Medi gregg mL on [place] Branch 03/22/22 at 1306, Until Discontinu ed, Routine, Local anesthesia NaCl 0.9% 2021-0 2021- No 10mL 10 mL, Unive rs (NS) 03-22 Slow IV ity of injection 18:06: 05:28 Push, PRN, [place] 10 mL 57 :43 Starting Medical on [place] Branch 03/22/22 at 1306, Until 03/25/22 at 0028, Routine, line maintenanc e lidocaine 2021-0 2021- No 5mL 5 mL, Univer s 1% (PF) 03-22 08-20 Subcutaneo ity o f (XYLOCAINE) 18:06: 05:28 us, PRN, [place] injection 5 57 :43 Starting Medi gregg mL on [place] Branch 03/22/22 at 1306, Until 03/25/22 at 0028, Routine, Local anesthesia simvastatin Yes 20mg Take 20 mg Univers (ZOCOR) 20 03-22 by mouth ity o f mg tablet 15:57: at [place] [id number] bedtime. Medical Branch QUEtiapine Yes quetiapine U nivers 200 mg 03-22 200 mg ity of tablet 15:57: tablet [place] [address] TAKE 1 Medical TABLET BY Branch MOUTH TWICE DAILY levothyroxi Yes levothyrox Univers ne 175 mcg 03-22 ine 175 ity of tablet 15:57: mcg tablet [place] [address] TAKE 1 Medical TABLET BY Branch MOUTH EVERY MORNING gabapentin Yes gabapentin U nivers 300 mg 03-22 300 mg ity of capsule 15:57: capsule [place] [address] TAKE 1 Medical CAPSULE BY Branch MOUTH AT BEDTIME DULoxetine Yes duloxetine U nivers 60 mg 03-22 60 mg ity of capsule 15:57: capsule,[place] 46 layed Medical release [place] TAKE 1 CAPSULE BY MOUTH TWICE DAILY metFORMIN Yes 500mg Take 500 Uni vers (GLUCOPHAGE 8-17 mg by ity of ) 500 mg 10:34: mouth 2 [place] tablet 54 (two) Medical times [place] daily with meals. acetaminoph Yes acetaminop Univers en-codeine 03-22 hen 300 ity of 300-30 mg 10:34: mg-codeine [place] tablet 54 30 mg Medical tablet Branch TAKE 1 TABLET BY MOUTH TWICE DAILY NEEDED traZODone Yes trazodone Uni vers 150 mg 03-22 150 mg ity of tablet 10:34: tablet [place] 54 TAKE 1 TO Medical 2 TABLETS Branch BY MOUTH EVERY NIGHT AT BEDTIME NEEDED FOR INSOMNIA traMADoL 50 Yes tramadol Un yan mg tablet 03-22 50 mg ity of 10:34: tablet [place] 54 TAKE 1 Medical TABLET BY Branch MOUTH THREE TIMES DAILY sucralfate Yes sucralfate U nivers 1 gram 03-22 1 gram ity of tablet 10:34: tablet [place] 54 TAKE 1 Medical TABLET BY Branch MOUTH BEFORE MEALS AND AT BEDTIME spironolact Yes spironolac Univers one 25 mg 03-22 tone 25 mg ity of tablet 10:34: tablet [place] 54 TAKE 1 Medical TABLET BY Branch MOUTH EVERY DAY SITagliptin Yes Januvia Uni vers (JANUVIA) 03-22 100 mg ity of 100 mg 10:34: tablet [place] tablet 54 TAKE 1 Medical TABLET BY Branch MOUTH EVERY DAY FOR 16 DAYS QUEtiapine Yes quetiapine U nivers 300 mg 03-22 300 mg ity of tablet 10:34: tablet [place] 54 TAKE 1 Medical TABLET BY Branch MOUTH EVERY EVENING 1 TO 1.5 HOUR PRIOR TO BEDTIME WITH 300 CALORIES SNACK pantoprazol Yes pantoprazo Univers e 40 mg EC 8 le 40 mg ity o f tablet 10:34: tablet,[place] [address] ay Medical release [place] TAKE 1 TABLET BY MOUTH EVERY DAY montelukast Yes montelukas Univers 10 mg 03-22 t 10 mg ity of tablet 10:34: tablet [place] 54 TAKE 1 Medical TABLET BY Branch MOUTH EVERY DAY IN THE EVENING methocarbam Yes methocarba Univers oL 500 mg 03-22 mol 500 mg ity of tablet 10:34: tablet [place] 54 TAKE 1 Medical TABLET BY Branch MOUTH THREE TIMES DAILY FOR 5 DAYS meloxicam Yes meloxicam Uni vers 15 mg 03-22 15 mg ity of tablet 10:34: tablet [place] [address] TAKE 1 Medical TABLET BY Branch MOUTH EVERY DAY losartan 50 Yes losartan Un yan mg tablet 03-22 50 mg ity of 10:34: tablet [place] 54 TAKE 1 Medical TABLET BY Branch MOUTH TWICE DAILY divalproex Yes divalproex U nivers 500 mg EC 8 500 mg ity of tablet 10:34: tablet,[place] [address] ayed Medical release [place] TAKE 1 TABLET BY MOUTH DAILY amLODIPine Yes amlodipine U nivers 5 mg tablet 03-22 5 mg ity of 10:34: tablet [place] 54 TAKE 1 Medical TABLET BY Branch MOUTH TWICE DAILY acetaminoph Yes 1{tbl} Take 1 Un yan en-codeine 8-17 tablet by ity of (TYLENOL-CO 10:34: mouth 3 [place] DEINE #4) 54 (three) Medical 300-60 mg times Branch tablet daily. metFORMIN Yes 500mg Take 500 Uni vers (GLUCOPHAGE 6-17 mg by ity of ) 500 mg 17:58: mouth 2 [place] tablet 36 (two) Medical times Branch daily with meals. simvastatin Yes 20mg Take 20 mg Univers (ZOCOR) 20 6-17 by mouth ity o f mg tablet 17:58: at [place] 36 bedtime. Medical Branch acetaminoph Yes acetaminop Univers en-codeine 6-17 hen 300 ity of 300-30 mg 17:58: mg-codeine [place] tablet 36 30 mg Medical tablet Branch TAKE 1 TABLET BY MOUTH TWICE DAILY NEEDED traZODone Yes trazodone Uni vers 150 mg 6-17 150 mg ity of tablet 17:58: tablet [place] 36 TAKE 1 TO Medical 2 TABLETS Branch BY MOUTH EVERY NIGHT AT BEDTIME NEEDED FOR INSOMNIA traMADoL 50 Yes tramadol Un yan mg tablet -17 50 mg ity of 17:58: tablet [place] 36 TAKE 1 Medical TABLET BY Branch MOUTH THREE TIMES DAILY sucralfate Yes sucralfate U nivers 1 gram - 1 gram ity of tablet 17:58: tablet [place] 36 TAKE 1 Medical TABLET BY Branch MOUTH BEFORE MEALS AND AT BEDTIME spironolact Yes spironolac Univers one 25 mg 6-17 tone 25 mg ity of tablet 17:58: tablet [place] 36 TAKE 1 Medical TABLET BY Branch MOUTH EVERY DAY SITagliptin Yes Januvia Uni vers (JANUVIA) 6-17 100 mg ity of 100 mg 17:58: tablet [place] tablet 36 TAKE 1 Medical TABLET BY Branch MOUTH EVERY DAY FOR 16 DAYS QUEtiapine Yes quetiapine U nivers 300 mg 6-17 300 mg ity of tablet 17:58: tablet [place] 36 TAKE 1 Medical TABLET BY Branch MOUTH EVERY EVENING 1 TO 1.5 HOUR PRIOR TO BEDTIME WITH 300 CALORIES SNACK QUEtiapine Yes quetiapine U nivers 200 mg 6-17 200 mg ity of tablet 17:58: tablet [place] 36 TAKE 1 Medical TABLET BY Branch MOUTH TWICE DAILY pantoprazol Yes pantoprazo Univers e 40 mg EC 6-17 le 40 mg ity o f tablet 17:58: tablet,del [address] Medical release [place] TAKE 1 TABLET BY MOUTH EVERY DAY methocarbam Yes methocarba Univers oL 500 mg 17 mol 500 mg ity of tablet 17:58: tablet [place] 36 TAKE 1 Medical TABLET BY Branch MOUTH THREE TIMES DAILY FOR 5 DAYS meloxicam Yes meloxicam Uni vers 15 mg 01-20 15 mg ity of tablet 17:58: tablet [place] 36 TAKE 1 Medical TABLET BY Branch MOUTH EVERY DAY losartan 50 Yes losartan Un yan mg tablet 01-20 50 mg ity of 17:58: tablet [place] 36 TAKE 1 Medical TABLET BY Branch MOUTH TWICE DAILY levothyroxi Yes levothyrox Univers ne 175 mcg 01-20 ine 175 ity of tablet 17:58: mcg tablet [place] 36 TAKE 1 Medical TABLET BY Branch MOUTH EVERY MORNING gabapentin Yes gabapentin U nivers 300 mg 01-20 300 mg ity of capsule 17:58: capsule [place] 36 TAKE 1 Medical CAPSULE BY Branch MOUTH AT BEDTIME DULoxetine Yes duloxetine U nivers 60 mg 01-20 60 mg ity of capsule 17:58: capsule,[place] 36 [facility] Medical release [place] TAKE 1 CAPSULE BY MOUTH TWICE DAILY divalproex Yes divalproex U nivers 500 mg EC 17 500 mg ity of tablet 17:58: tablet,[facility] [place] [facility] 36 [facility] TAKE 1 TABLET BY MOUTH DAILY amLODIPine Yes amlodipine U nivers 5 mg tablet 01-20 5 mg ity of 17:58: tablet [place] 36 TAKE 1 Medical TABLET BY Branch MOUTH TWICE DAILY acetaminoph Yes 1{tbl} Take 1 Un yan en-codeine 6-17 tablet by ity of (TYLENOL-CO 17:58: mouth 3 [place] DEINE #4) 36 (three) Medical 300-60 mg times Branch tablet daily. montelukast Yes montelukas Univers 10 mg 6-08 t 10 mg ity of tablet 09:37: tablet [place] 16 TAKE 1 Medical TABLET BY Branch MOUTH EVERY DAY IN THE EVENING dicyclomine 2021-0 Yes [id number] 10mg Take 1 Univers 10 mg 6-25 capsule by ity of capsule 00:00: mouth 3 (three) Medical times Branch daily as needed for Abdominal pain. loperamide 2020-0 Yes [id number] 2mg Take 1 U nivers 2 mg 6-25 capsule by ity of capsule 00:00: mouth [place] 00 every 4 Medical (four) Branch hours as needed for Diarrhea. dicyclomine 2020-0 Yes [id number] 10mg Take 1 Univers 10 mg 6-25 capsule by ity of capsule 00:00: mouth 3 00 (three) Medical times Branch daily as needed for Abdominal pain. loperamide 2020-0 Yes [id number] 2mg Take 1 U nivers 2 mg 6-25 capsule by ity of capsule 00:00: mouth [place] 00 every 4 Medical (four) Branch hours as needed for Diarrhea. dicyclomine 2020-0 Yes [id number] 10mg Take 1 Univers 10 mg 6-25 capsule by ity of capsule 00:00: mouth (three) Medical times Branch daily as needed for Abdominal pain. loperamide 2020-0 Yes [id number] 2mg Take 1 U nivers 2 mg 6-25 capsule by ity of capsule 00:00: mouth 00 every 4 Medical (four) Branch hours as needed for Diarrhea. dicyclomine 2020-0 Yes [id number] 10mg Take 1 Univers 10 mg 6-25 capsule by ity of capsule 00:00: mouth 3 (three) Medical times Branch daily as needed for Abdominal pain. loperamide 2020-0 Yes [id number] 2mg Take 1 U nivers 2 mg 6-25 capsule by ity of capsule 00:00: mouth [place] 00 every 4 Medical (four) Branch hours as needed for Diarrhea. dicyclomine 2020-0 Yes [id number] 10mg Take 1 Univers 10 mg 6-25 capsule by ity of capsule 00:00: mouth 3 (three) Medical times Branch daily as needed for Abdominal pain. loperamide 2020-0 Yes [id number] 2mg Take 1 U nivers 2 mg 6-25 capsule by ity of capsule 00:00: mouth [place] 00 every 4 Medical (four) Branch hours as needed for Diarrhea. dicyclomine 2020-0 Yes [id number] 10mg Take 1 Univers 10 mg 6-25 capsule by ity of capsule 00:00: mouth 3 [place] 00 (three) Medical times Branch daily as needed for Abdominal pain. loperamide 2020-0 Yes [id number] 2mg Take 1 U nivers 2 mg 6-25 capsule by ity of capsule 00:00: mouth [place] 00 every 4 Medical (four) Branch hours as needed for Diarrhea. tiZANidine 0 Yes TAKE 1 Unive rs [...] DAILY Branch DIRECTED Levothyroxi Levothyroxi 2019-0 Yes [place] 1 tablet Common ne Sodium ne Sodium 4-07 [place] in the Sp coretta 00:00: morning on - [facility] [address] stomach [facility] Levothyroxi Levothyroxi Yes [place] 1 tablet Common ne Sodium ne Sodium [place] in the Sp coretta morning on - [facility] an empty [facility] stomach [facility] daily Gabapentin Gabapentin Yes [place] TK 2 Co mmon [place] CAPSULES Spirit PO QID PRN - [facility] Ondansetron Ondansetron Yes Terry TK 1 T PO Common HCl HCl [place] QD FOR 10 Spirit DAYS PRN - [facility] Duloxetine Duloxetine Yes Terry not Co mmon HCl HCl [place] defined [facility] - [facility] Breo Breo Yes Terry 1 puff Common Ellipta Ellipta [place] [facility] Topiramate Topiramate Yes Terry 1 tablet Common [place] [facility] Albuterol Albuterol Yes Terry 3 ml as C ommon Sulfate Sulfate [place] needed [facility] Trazodone Trazodone Yes Terry TK 1 TO 2 Common HCl HCl [place] TS PO HS Spirit PRF - [facility] INSOMNIA [facility] Tizanidine Tizanidine Yes [place] 1 tablet Common HCl HCl [place] as needed [facility] Norvasc Norvasc Yes Terry 1 tablet Comm on [place] [facility] Estradiol Estradiol Yes [place] as Comm on [place] directed [facility] Sucralfate Sucralfate Yes Terry 1 tablet Common [place] on an Spirit empty - [facility] stomach [facility] Nystatin Nystatin Yes Terry 1 Common [place] applicatio [facility] n [facility] Albuterol Albuterol Yes Terry INL 2 PFS Common Sulfate HFA Sulfate HFA [place] PO Q 6 H Spirit PRN - [facility] Meloxicam Meloxicam Yes Terry TK 1 T PO Common [place] QD [facility] Loratadine Loratadine Yes Terry TK 1 T PO Common [place] QD FOR Spirit ALLERGIES [facility] Simvastatin Simvastatin Yes Terry 1 tablet Common [place] in the Spirit evening [facility] Pantoprazol Pantoprazol Yes Terry 1 tablet Common e Sodium e Sodium [place] [facility] Lorazepam Lorazepam Yes Terry 1 tablet Common [place] at bedtime Spirit as needed - [facility] Metformin Metformin Yes [place] TAKE 1 Co mmon HCl HCl [place] TABLET BY [facility] MOUTH - [facility] TWICE St DAILY WITH [facility] Divalproex Divalproex Yes Terry 1 tablet Common Sodium ER Sodium ER [place] Spir it [facility] Quetiapine Quetiapine Yes Terry 1 tablet Common Fumarate Fumarate [place] at bedtime [facility] Tramadol Tramadol Yes Terry 1 tablet Co mmon HCl HCl [place] as needed [facility] Botox Botox Yes Terry as Common [place] directed [facility] Yes Terry 1 tablet Comm on [place] [facility] Divalproex Divalproex Yes Terry 3 tabs Common Sodium ER Sodium ER [place] Spir [facility] Simvastatin Simvastatin Yes [place] TAKE 1 Common [place] TABLET BY Spirit MOUTH - [facility] EVERY DAY [facility] IN [facility] Losartan Losartan Yes Terry 1 tablet Co mmon Potassium Potassium [place] Spir [facility] Oxybutynin Oxybutynin Terry 1 tablet Common Chloride Chloride 10-31 [place] Spiri t 00:00 - [facility] :00 [facility] Immunizations Ordered Immunization Filled Immunization Date Status Commen ts Source Name Name Pneumovax Pneumovax 2019-06-09 Completed [facility] 00:00:00 [facility] Flucelvax - single Flucelvax - single 2019-05-30 Completed [facility] dose syringe dose syringe 00:00:00 [facility] Prevnar 13 Prevnar 13 2018-05-09 Completed [facility] -Pneumonia Vaccine -Pneumonia Vaccine 00:00:00 - [facility] Vital Signs Vital Name Observation Time Observation Value Comments Source Systolic blood 2022-03-25 00:54:00 164 mm[Hg] [facility] Diastolic blood 2022-03-25 00:54:00 83 mm[Hg] Unive [facility] Heart rate 2022-03-25 00:54:00 95 /min [facility] Body temperature 2022-03-25 00:54:00 37 Natalia [facility] Oxygen saturation in 2022-03-25 00:54:00 97 /min [facility] Arterial blood by [facility] Pulse oximetry Branch Respiratory rate 2022-03-24 19:44:00 18 /min [facility] Body height 2022-03-24 18:05:00 170.2 cm [facility] Body weight 2022-03-24 18:05:00 84.823 kg [facility] BMI 2022-03-24 18:05:00 29.29 kg/m2 [facility] Systolic blood 2022-03-24 19:44:00 138 mm[Hg] Univer sity of pressure [place] [facility] Diastolic blood 2022-03-24 19:44:00 67 mm[Hg] Unive rsity of pressure [place] [facility] Heart rate 2022-03-24 19:44:00 84 /min [facility] [place] [facility] Body temperature 2022-03-24 19:44:00 36.33 Natalia Univ ersity of [place] [facility] Respiratory rate 2022-03-24 19:44:00 18 /min Univ ersity of [place] [facility] Oxygen saturation in 2022-03-24 19:44:00 97 /min University of Arterial blood by [place] [employer] [facility] Pulse oximetry Branch Body height 2022-03-24 18:05:00 170.2 cm Universi ty [facility] [place] [facility] Body weight 2022-03-24 18:05:00 84.823 kg [facility] [place] [facility] BMI 2022-03-24 18:05:00 29.29 kg/m2 [facility] [place] [facility] Systolic blood 2022-03-23 13:59:00 130 mm[Hg] Univer sity of pressure [place] [facility] Diastolic blood 2022-03-23 13:59:00 65 mm[Hg] Unive rsity of pressure [place] [facility] Heart rate 2022-03-23 13:59:00 77 /min [facility]i [facility] [place] [facility] Body temperature 2022-03-23 13:59:00 35.39 Natalia Univ ersity of [place] [facility] Respiratory rate 2022-03-23 13:59:00 16 /min Univ ersity of [place] [facility] Body height 2022-03-23 13:59:00 170.2 cm [facility] [place] [facility] Body weight 2022-03-23 13:59:00 85 kg [facility]i ty [facility] [place] [facility] BMI 2022-03-23 13:59:00 29.35 kg/m2 [facility] [place] [facility] Oxygen saturation in 2022-03-23 13:59:00 99 /min University of Arterial blood by [place] Medi gregg Pulse oximetry Branch Body height 2022-02-21 19:05:00 170.2 cm [facility] [place] [facility] Body weight 2022-02-21 19:05:00 86.183 kg [facility] [place] [facility] BMI 2022-02-21 19:05:00 29.76 kg/m2 [facility] Procedures Procedure Date / Time Performing Source Performed Clinician DNR 2022-04-04 [facility] 05:01:00 Unassigned, No [facility] POCT GLUCOSE (AUTOMATED) 2022-03-24 Prakash Rodriguez rsity of 21:06:00 [facility] POCT GLUCOSE (AUTOMATED) 2022-03-24 [facility]rakash Rodriguez [facility] [place] [facility] 21:06:00 [facility] COLONOSCOPY (ENDO) 2022-03-24 [facility] [place] [facility] 18:38:21 [facility] COLONOSCOPY (ENDO) 2022-03-24 Prakash Rodriguez [facility] of 18:38:21 [facility] COLONOSCOPY 2022-03-24 Earnest Nunez [place] of 18:31:00 [facility] POCT GLUCOSE (AUTOMATED) 2022-03-24 Prakash Rodriguez rsity of 13:30:00 [facility] POCT GLUCOSE (AUTOMATED) 2022-03-24 Prakash Rodriguez [facility] of 13:30:00 [facility] POCT GLUCOSE (AUTOMATED) 2022-03-24 Prakash Rodriguez [facility] rsity of 13:30:00 [facility] CBC WITHOUT DIFF 2022-03-24 [facility] of 10:55:00 [facility] CBC WITHOUT DIFF 2022-03-24 [facility] of 10:55:00 [facility] CBC WITHOUT DIFF 2022-03-24 [facility] of 10:55:00 [facility] MAGNESIUM 2022-03-[address] [facility] of 09:28:00 [facility] BASIC METABOLIC PANEL (NA, K, CL, 2022-03-24 Nemo, [facility] of CO2, GLUCOSE, BUN, CREATININE, CA) 09:28:00 [facility] MAGNESIUM 2022-03-[address] [facility] of 09:28:00 [facility] BASIC METABOLIC PANEL (NA, K, CL, 2022-03-24 Nemo, [facility] of CO2, GLUCOSE, BUN, CREATININE, CA) 09:28:00 [facility] MAGNESIUM 2022-03-[address] [facility] of 09:28:00 [facility] BASIC METABOLIC PANEL (NA, K, CL, 2022-03-24 [facility] of CO2, GLUCOSE, BUN, CREATININE, CA) 09:28:00 [facility] POCT GLUCOSE (AUTOMATED) 2022-03-24 Prakash Rodriguez Unive rsity of 04:04:00 [facility] POCT GLUCOSE (AUTOMATED) 2022-03-24 Prakash Rodriguez Unive rsity of 04:04:00 [facility] POCT GLUCOSE (AUTOMATED) 2022-03-24 Prakash Rodriguez Unive rsity of 04:04:00 [facility] POCT GLUCOSE (AUTOMATED) 2022-03-24 Prakash Rodriguez Unive rsity of 01:54:00 [facility] POCT GLUCOSE (AUTOMATED) 2022-03-24 Prakash Rodriguez Unive rsity of 01:54:00 [facility] POCT GLUCOSE (AUTOMATED) 2022-03-24 Prakash Rodriguez Unive rsity of 01:54:00 [facility] POCT GLUCOSE (AUTOMATED) 2022-03-23 Prakash Rodriguez Unive rsity of 22:06:00 [facility] POCT GLUCOSE (AUTOMATED) 2022-03-23 Prakash Rodriguez Unive rsity of 22:06:00 [facility] POCT GLUCOSE (AUTOMATED) 2022-03-23 Prakash Rodriguez Unive rsity of 22:06:00 [facility] SURGICAL PATHOLOGY EXAM 2022-03-23 Gou, Earnestlolis Dunns Univer sity of 14:36:00 [facility] SURGICAL PATHOLOGY EXAM 2022-03-23 Gou, Earnest Dennissons Univer sity of 14:36:00 [facility] SURGICAL PATHOLOGY EXAM 2022-03-23 Gou, Earnest Winsons Univer sity of 14:36:00 [facility] ESOPHAGOGASTRODUODENOSCOPY 2022-03-23 Gou, Earnestlolis Collinssons Uni versity of 14:09:00 [facility] ESOPHAGOGASTRODUODENOSCOPY 2022-03-23 Gou, Earnestlolis Collinssons Uni versity of 14:09:00 [facility] EGD (ENDO) 2022-03-23 Prakash Rodriguez [facility] of 13:02:56 [facility] EGD (ENDO) 2022-03-23 Prakash Rodriguez [facility] of 13:02:56 [facility] EGD (ENDO) 2022-03-23 Prakash Rodriguez [facility] of 13:02:56 [facility] POCT GLUCOSE (AUTOMATED) 2022-03-23 Prakash Rodriguez [facility] rsity of 12:56:00 [facility] POCT GLUCOSE (AUTOMATED) 2022-03-23 Prakash Rodriguez [facility] rsity of 12:56:00 [facility] POCT GLUCOSE (AUTOMATED) 2022-03-23 Prakash Rodriguez [facility] rsity of 12:56:00 [facility] FERRITIN SERUM 2022-03-23 Jackson Spear [place] of 10:21:00 [facility] BASIC METABOLIC PANEL (NA, K, CL, 2022-03-23 [facility] of CO2, GLUCOSE, BUN, CREATININE, CA) 10:21:00 [facility] CBC WITH DIFF 2022-03-23 [facility] of 10:21:00 [facility] ACTIVATED PARTIAL THRMPLAS CASSIE 2022-03-23 Suma, Courtney [facility]iversity of 10:21:00 [facility] FIBRINOGEN 2022-03-23 [facility] of 10:21:00 [facility] FERRITIN SERUM 2022-03-23 Jackson Spear [place] of 10:21:00 [facility] BASIC METABOLIC PANEL (NA, K, CL, 2022-03-23 [facility] of CO2, GLUCOSE, BUN, CREATININE, CA) 10:21:00 [facility] CBC WITH DIFF 2022-03-23 [place] of 10:21:00 [facility] ACTIVATED PARTIAL THRMPLAS CASSIE 2022-03-23 Dragan, Courtney U niversity of 10:21:00 [facility] FIBRINOGEN 2022-03-23 [place] [facility] of 10:21:00 [facility] FERRITIN SERUM 2022-03-[address] [facility] of 10:21:00 [facility] BASIC METABOLIC PANEL (NA, K, CL, 2022-03-23 [facility] of CO2, GLUCOSE, BUN, CREATININE, CA) 10:21:00 [facility] CBC WITH DIFF 2022-03-23 [facility] of 10:21:00 [facility] ACTIVATED PARTIAL THRMPLAS CASSIE 2022-03-23 Courtney Moise niversity of 10:21:00 [facility] FIBRINOGEN 2022-03-23 Courtney Moise [facility] of 10:21:00 [facility] POCT GLUCOSE (AUTOMATED) 2022-03-23 Prakash Rodriguez Unive rsity of 02:06:00 [facility] POCT GLUCOSE (AUTOMATED) 2022-03-23 Prakash Rodriguez Unive rsity of 02:06:00 [facility] POCT GLUCOSE (AUTOMATED) 2022-03-23 Prakash Rodriguez [employer] Unive rsity of 02:06:00 [facility] POCT GLUCOSE (AUTOMATED) 2022-03-23 Prakash Rodriguez Unive rsity of 01:28:00 [facility] POCT GLUCOSE (AUTOMATED) 2022-03-23 Prakash Rodriguez [place] Unive rsity of 01:28:00 [facility] POCT GLUCOSE (AUTOMATED) 2022-03-23 Prakash Rodriguez Unive rsity of 01:28:00 [facility] POCT GLUCOSE (AUTOMATED) 2022-03-22 Prakash Rodriguez Unive rsity of 22:06:00 [facility] POCT GLUCOSE (AUTOMATED) 2022-03-22 Prakash Rodriguez Unive rsity of 22:06:00 [facility] POCT GLUCOSE (AUTOMATED) 2022-03-22 Prakash Rodriguez [facility] Unive rsity of 22:06:00 [facility] HB ABO GROUPING 2022-03-22 [facility] of 20:28:00 [facility] HB ABO GROUPING 2022-03-22 [facility] of 20:28:00 [facility] HB ABO GROUPING 2022-03-22 [facility] of 20:28:00 [facility] VITAMIN B12, LEVEL 2022-03-22 [facility] of 17:58:00 [facility] FOLATE 2022-03-22 [facility] of 17:58:00 [facility] HEPATIC FUNCTION PANEL ([id number]) 2022-03-22 Shabbir Nugent niversity of (ALB,T.PRO,BILI 17:58:00 [facility],BU/BC,ALT,AST,ALK PHOS) [place] BASIC METABOLIC PANEL (NA, K, CL, 2022-03-22 Jovanna [facility] of CO2, GLUCOSE, BUN, CREATININE, CA) 17:58:00 [facility] CBC WITH DIFF 2022-03-22 Nemo, [facility] of 17:58:00 [facility] VITAMIN B12, LEVEL 2022-03-22 [facility] of 17:58:00 [facility] FOLATE 2022-03-22 [facility] of 17:58:00 [facility] HEPATIC FUNCTION PANEL ([id number]) 2022-03-22 Shabbir Nugent niversity of (ALB,T.PRO,BILI 17:58:00 [place] [facility],BU/BC,ALT,AST,ALK PHOS) Branch BASIC METABOLIC PANEL (NA, K, CL, 2022-03-22 Nemo, [facility] of CO2, GLUCOSE, BUN, CREATININE, CA) 17:58:00 [facility] CBC WITH DIFF 2022-03-22 Nem[facility], [facility] 17:58:00 [facility] VITAMIN B12, LEVEL 2022-03-22 Jovanna, [facility] of 17:58:00 [facility]OLATE 2022-03-22 [facility] of 17:58:00 [facility] HEPATIC FUNCTION PANEL ([id number]) 2022-03-22 Shabbir Nugent niversity of (ALB,T.PRO,BILI 17:58:00 [place] [facility] T,BU/BC,ALT,AST,ALK PHOS) Branch BASIC METABOLIC PANEL (NA, K, CL, 2022-03-22 Jovanna [facility] of CO2, GLUCOSE, BUN, CREATININE, CA) 17:58:00 [facility] CBC WITH DIFF 2022-03-22 [facility] 17:58:00 [facility] HOSPITAL ADMISSION 2022-03-22 [facility] of 05:01:00 Unassigned, No [facility] HOSPITAL ADMISSION 2022-03-22 [facility] of 05:01:00 Unassigned, No [facility] HOSPITAL ADMISSION 2022-03-22 [facility] 05:01:00 Unassigned, No [facility] [id number] 2021-10-17 [facility] 00:00:00 [facility] Encounters Start End Encounter Admission Attending Care Care Encounter Source Date/Time Date/Time Type Type Clinicians Facility Department ID 2022-02-16 Outpatient Triana, STLMLC STLMLC [id number] Common 13:42:01 Skylar [facility] 2022-02-07 Outpatient Triana, STLMLC STLMLC [id number] Common 08:29:00 Skylar [facility] 2021-12-08 Outpatient Triana, STLMLC STLMLC [id number] Common 16:43:00 Skylar [facility] 2021-12-05 Outpatient Triana, STLMLC STLMLC [id number] Common 14:56:01 Skylar [facility] 2021-11-04 Outpatient Triana, STLMLC STLMLC [id number] Common 10:22:00 Skylar [facility] 2021-10-26 Outpatient Triana, STLMLC STLMLC [id number] Common 16:48:01 Skylar [facility] 2021-10-21 Outpatient Triana, STLMLC STLMLC [id number] Common 13:18:01 Skylar [facility] 2021-10-18 Outpatient Triaan, STLMLC STLMLC [id number] Common 13:27:02 Skylar [facility] 2021-08-31 Outpatient Triana, STLMLC STLMLC [id number] Common 14:40:32 Skylar [facility] 2021-08-31 Outpatient Triana, STLMLC STLMLC [id number] Common 14:27:35 Skylar [facility] 2021-08-31 Outpatient Triana, STLMLC STLMLC [id number] Common 14:13:22 Skylar [facility] 2021-08-31 Outpatient Triana, STLMLC STLMLC [id number] Common 14:05:40 Skylar [facility] 2021-08-31 Outpatient Denton, STLMLC STLMLC [id number] Common 14:01:51 Terry 16214 [facility] 2021-08-31 Outpatient [place], STLMLC STLMLC [id number] Common 14:00:44 Terry 36782 [facility] 2021-08-31 Outpatient [place], STLMLC STLMLC [id number] Common 13:48:34 Terry 35383 [facility] 2021-08-31 Outpatient [place], STLMLC STLMLC [id number] Common 13:28:14 Terry 53230 [facility] 2021-08-31 Outpatient [place], STLMLC STLMLC [id number] Common 12:43:59 Terry 50029 [facility] 2021-08-31 Outpatient [place], STLMLC STLMLC [id number] Common 12:43:30 Terry 04880 [facility] 2021-08-31 Outpatient [place], STLMLC STLMLC [id number] Common 12:40:36 Terry 33337 [facility] 2021-08-31 Outpatient [place], STLMLC STLMLC [id number] Common 11:45:41 Terry 01952 [facility] 2021-08-31 Outpatient [place], STLMLC STLMLC [id number] Common 11:36:44 Terry [id number] [facility] 2021-08-31 Outpatient [place], STLMLC STLMLC [id number] Common 11:33:43 Terry 54202 [facility] 2021-08-31 Outpatient [place], STLMLC STLMLC [id number] Common 11:29:50 Terry 31755 [facility] 2021-08-31 Outpatient [place], STLMLC STLMLC [id number] Common 11:25:13 Terry 21791 [facility] 2021-08-31 Outpatient [place], STLMLC STLMLC [id number] Common 11:19:14 Terry 62430 [facility] 2021-08-31 [facility] [place] [id number] Common 11:12:16 Terry 71830 [facility] 2021-08-31 Outpatient Millender[facility] [id number] Common 11:09:26 Sheryl 36014 [facility] 2021-08-31 Out[facility] [place] [id number] Common 11:07:41 Terry 34852 [facility] 2021-08-31 Outpatient [place], STLMLC [facility] [id number] Common 11:07:07 Terry 12288 [facility] 2021-08-31 Outpatient [place], STLMLC [facility] [id number] Common 10:58:45 Terry 29902 [facility] 2022-04-04 2022-04-04 Orders Doctor ABISAI 1.2.840.114 [id number] Univers 00:00:00 00:00:00 Only Unassigned, BAR [id number] ity of [facility] [id number] Solomon as [id number] [facility] 009 Branch 2022-03-27 2022-03-27 Transition DAVE Lowery 1.2.840.114 [id number] Univers 00:00:00 00:00:00 of Care Karen LOPEZ [id number] i ty [place] [id number] [facility] 403 Branch 2022-03-22 2022-03-24 Outpatient PRAKASH AMBRIZ [facility] NING [id number] Univers 10:30:00 20:18:00 ity of [facility] 2022-03-22 2022-03-24 Hospital Prakash Rodriguez 1.2.840.114 [id number] Univers 10:30:00 20:18:00 Encounter Sesung BAR [id number] ity of [facility] 4.2.7.2.686 Solomon as [id number] [facility] 096 Branch 2022-03-24 2022-03-24 Surgery Earnest Nunez [facility] 1.2.840.114 [id number] Univers 14:05:00 15:11:00 Juvencio ICAL [id number] it y of SCIENCES 4.2.7.2.686 [place] as BLDG [id number] [address] 2022-03-23 2022-03-23 Surgery Earnest Nunez [facility] 1.2.840.114 [id number] Univers 09:00:00 09:43:00 Juvencio ICAL [id number] it y of SCIENCES 4.2.7.2.686 [place] as BLDG [id number] [address] 2022-03-08 2022-03-08 ambulatory STLMLC STLMLC [id number] Common 00:00:00 00:00:00 [facility] 2022-02-21 2022-02-21 [facility] [id number] Univers 14:58:27 23:59:00 [facility] 2022-02-21 2022-02-21 [facility] 1.2.840.114 [id number] Univers 14:00:00 15:28:39 Visit [facility] [id number] it y of [place] 4.2.7.2.686 Solomon as SANDY?BLEA [id number] [address] MEDICAL OFFICE BUILDING 2022-01-31 2022-01-31 ambulatory STLMLC STLMLC [id number] Common 00:00:00 00:00:00 [facility] 2022-01-13 2022-01-13 ambulatory STLMLC STLMLC [id number] Common 00:00:00 00:00:00 [facility] 2022-01-12 2022-01-12 ambulatory STLMLC STLMLC [id number] Common 00:00:00 00:00:00 [facility] 2021-12-07 2021-12-07 ambulatory STLMLC STLMLC [id number] Common 00:00:00 00:00:00 [facility] 2021-11-24 2021-11-24 ambulatory STLMLC STLMLC [id number] Common 00:00:00 00:00:00 [facility] 2021-11-11 2021-11-11 ambulatory STLMLC STLMLC [id number] Common 00:00:00 00:00:00 [facility] 2021-11-08 2021-11-08 ambulatory STLMLC STLMLC [id number] Common 00:00:00 00:00:00 [facility] 2021-11-03 2021-11-03 ambulatory STLMLC STLMLC [id number] Common 00:00:00 00:00:00 [facility] 2021-10-20 2021-10-20 ambulatory STLMLC STLMLC [id number] Common 00:00:00 00:00:00 [facility] 2021-10-17 2021-10-18 Inpatient EM Ilomdarrelya, [facility] [id number] [facility] 14:18:00 13:18:00 [place] 29 [facility] 2021-10-13 2021-10-13 ambulatory STLMLC STLMLC [id number] Common 00:00:00 00:00:00 [facility] 2021-10-11 2021-10-11 ambulatory STLMLC STLMLC [id number] Common 00:00:00 00:00:00 [facility] 2021-09-12 2021-09-12 ambulatory STLMLC STLMLC [id number] Common 00:00:00 00:00:00 [facility] 2021-09-02 2021-09-02 ambulatory STLMLC STLMLC [id number] Common 00:00:00 00:00:00 [facility] 2021-09-02 2021-09-02 ambulatory STLMLC STLMLC [id number] Common 00:00:00 00:00:00 [facility] 2021-09-02 2021-09-02 ambulatory STLMLC STLMLC [id number] Common 00:00:00 00:00:00 [facility] 2021-08-31 2021-08-31 ambulatory STLMLC STLMLC [id number] Common 00:00:00 00:00:00 [facility] 2021-08-25 2021-08-25 ambulatory STLMLC STLMLC [id number] Common 00:00:00 00:00:00 [facility] 2021-08-23 2021-08-23 ambulatory STLMLC STLMLC [id number] Common 00:00:00 00:00:00 [facility] 2021-08-16 2021-08-16 ambulatory STLMLC STLMLC [id number] Common 00:00:00 00:00:00 [facility] 2021-08-15 2021-08-15 ambulatory STLMLC STLMLC [id number] Common 00:00:00 00:00:00 [facility] 2021-07-27 2021-07-27 ambulatory STLMLC STLMLC [id number] Common 00:00:00 00:00:00 [facility] 2021-07-07 2021-07-07 ambulatory STLMLC STLMLC [id number] Common 00:00:00 00:00:00 [facility] 2021-07-06 2021-07-06 ambulatory STLMLC STLMLC [id number] Common 00:00:00 00:00:00 [facility] 2021-06-28 2021-06-28 Outpatient MHIE MHIE [id number] Memoria 16:00:00 16:00:00 30 l [place] 2021-06-22 2021-06-22 ambulatory STLMLC STLMLC [id number] Common 00:00:00 00:00:00 [facility] 2021-06-02 2021-06-02 Outpatient STLMLC STLMLC [id number] Common 00:00:00 00:00:00 [facility] 2021-05-24 2021-05-24 Outpatient MHIE MHIE [id number] Memoria 15:30:00 15:30:00 29 l Tanmay 2021-05-18 2021-05-18 Outpatient STLMLC STLMLC [id number] Common 00:00:00 00:00:00 [facility] 2021-04-20 2021-04-20 Outpatient STLMLC STLMLC [id number] Common 00:00:00 00:00:00 [facility] 2021-03-10 2021-03-10 [facility] Radiology [facility] 1.2.840.114 [id number] 10:47:03 23:59:00 Encounter [place] [id number] [place] 4.2.7.2.686 [place] [id number] 2021-03-10 2021-03-10 [facility] Radiology [facility] 1.2.840.114 [id number] 10:45:00 10:46:00 Encounter [place] [id number] [place] 4.2.7.2.686 [place] [id number] 2021-03-08 2021-03-08 Urgent [place], [facility] 1.2.840.114 [id number] 20:00:13 20:20:13 Care [facility] 350.1.13.10 [place] 4.2.7.2.686 Professio [id number] nal [address] 2021-02-24 2021-02-24 Outpatient STLMLC STLMLC [id number] Common 00:00:00 00:00:00 [facility] 2021-02-19 2021-02-19 Outpatient STLMLC STLMLC [id number] Common 00:00:00 00:00:00 [facility] 2021-02-18 2021-02-18 Outpatient STLMLC STLMLC [id number] Common 00:00:00 00:00:00 [facility] 2021-02-16 2021-02-16 Outpatient STLMLC STLMLC [id number] Common 00:00:00 00:00:00 [facility] 2021-01-31 2021-01-31 Transition Dave Lowery 1.2.840.114 [id number] 00:00:00 00:00:00 of Care Karen Lopez 350.1.13.10 Mallie 4.2.7.2.686 [id number] 2021-01-18 2021-01-28 [facility] Jona Davila [facility] 1.2.840.1 [id number] 21:13:00 14:30:00 Encounter Mauro Chinchilla [place] 350.1.13.10 FranciscoGomez barragan [place] 4.2.7.2.686 [place] [id number] 2021-01-25 2021-01-25 Anesthesia Tai Avalos [facility] 1.2.840.11 [id number] 08:49:00 09:30:00 Event Randell López [place] 350.1.13.10 [place] 4.2.7.2.686 Surgical [id number] [place] 020 2021-01-25 2021-01-25 Surgery [facility] 1.2.840.114 [id number] 08:33:00 09:08:00 [place] 350.1.13.10 [place] 4.2.7.2.686 Surgical [id number] [place] 020 2021-01-19 2021-01-19 Outpatient STLMLC STLMLC [id number] Common 00:00:00 00:00:00 [facility] 2021-01-14 2021-01-14 Outpatient [facility]IE [facility] [id number] 13:30:00 13:30:00 28 dmitry Donato 2020-12-31 2020-12-31 Outpatient STLMLC STLMLC [id number] Common 00:00:00 00:00:00 [facility] 2020-12-30 2020-12-30 Outpatient STLMLC STLMLC [id number] Common 00:00:00 00:00:00 [facility] 2020-12-20 2020-12-20 Outpatient STLMLC STLMLC [id number] Common 00:00:00 00:00:00 [facility] 2020-12-08 2020-12-08 Telephone Kim [facility] 1.2.840.114 [id number] 00:00:00 00:00:00 Naveen [facility] 350.1.13.10 Surgical 4.2.7.2.686 Specialti [id number] es 198 Katelin 2020-12-07 2020-12-07 Orders Doctor BARONE 1.2.840.114 [id number] 00:00:00 00:00:00 Only Unassigned, BAR 350.1.13.10 [place]asty [facility] 4.2.7.2.686 [id number] [id number] 2020-12-06 2020-12-06 Office Kim MIGNONMARIO 1.2.641.042 [id number] 15:09:54 15:49:09 Visit Naveen [facility] 350.1.13.10 Surgical 4.2.7.2.686 Specialti [id number] es 198 [place] 2020-11-16 2020-11-16 Outpatient STLMLC STLMLC [id number] Common 00:00:00 00:00:00 [facility] 2020-11-03 2020-11-03 Outpatient STLMLC STLMLC [id number] Common 00:00:00 00:00:00 [facility] 2020-10-25 2020-10-25 Outpatient STLMLC STLMLC [id number] Common 00:00:00 00:00:00 [facility] 2020-10-22 2020-10-22 Outpatient STLMLC STLMLC [id number] Common 00:00:00 00:00:00 [facility] 2020-10-20 2020-10-20 Outpatient STLMLC STLMLC [id number] Common 00:00:00 00:00:00 [facility] 2020-10-14 2020-10-14 Outpatient MHIE MHIE [id number] Memoria 15:00:00 15:00:00 27 dmitry FnukYachats 2020-10-14 2020-10-14 Outpatient MHIE MHIE [id number] Memoria 14:15:00 14:15:00 25 dmitry Tanmay 2020-10-12 2020-10-12 Outpatient STLMLC STLMLC [id number] Common 00:00:00 00:00:00 [facility] 2020-09-15 2020-09-15 Outpatient STLMLC STLMLC [id number] Common 00:00:00 00:00:00 [facility] 2020-08-24 2020-08-24 Outpatient MHIE MHIE [id number] Memoria 13:45:00 13:45:00 26 l Tanmay 2020-07-22 2020-07-22 Outpatient MHIE MHIE [id number] Memoria 14:30:00 14:30:00 24 l Tanmay 2020-07-12 2020-07-12 Outpatient STLMLC STLMLC [id number] Common 00:00:00 00:00:00 [facility] 2020-06-11 2020-06-11 Outpatient STLMLC STLMLC [id number] Common 00:00:00 00:00:00 [facility] 2020-05-26 2020-05-26 Outpatient STLMLC STLMLC [id number] Common 00:00:00 00:00:00 [facility] 2020-05-11 2020-05-11 Outpatient STLMLC STLMLC [id number] Common 00:00:00 00:00:00 [facility] 2020-04-16 2020-04-16 [facility] [id number] Common 15:00:00 15:00:00 [facility] 2020-04-16 2020-04-16 Outpatient STLMLC STLMLC [id number] Common 00:00:00 00:00:00 [facility] 2020-04-13 2020-04-13 [facility] [id number] Common 08:51:00 08:51:00 [facility] 2020-04-08 2020-04-08 Outpatient MHIE MHIE [id number] Memoria 13:45:00 13:45:00 22 l Tanmay 2020-03-18 2020-03-18 Outpatient MHIE MHIE [id number] Memoria 15:00:00 15:00:00 19 l Tanmay 2020-03-18 2020-03-18 Outpatient MHIE MHIE [id number] Memoria 15:00:00 15:00:00 21 l Tanmay 2020-03-18 2020-03-18 Outpatient MHIE TONIA [id number] Memoria 15:00:00 15:00:00 20 l [place] 2020-03-11 2020-03-11 Outpatient MHMAXIMO RANDALL [id number] Memoria 16:15:00 16:15:00 23 l Tanmay 2020-02-27 2020-02-27 [facility] [id number] Common 14:00:00 14:00:[address] [facility] 2020-02-23 2020-02-23 [facility] [id number] Common 13:12:00 13:12:[address] [facility] 2020-02-18 2020-02-18 [id number] Common 09:08:00 09:08:[address] [facility] 2020-02-16 2020-02-16 [id number] Common 18:34:00 18:34:[address] [facility] 2020-02-11 2020-02-11 [id number] Common 13:20:00 13:20:[address] [facility] 2020-01-06 2020-01-06 [facility] [id number] Common 18:46:00 18:46:[address] [facility] 2019-12-22 2019-12-22 [facility] [id number] Common 14:00:00 14:00:00 t [facility] 2019-12-17 2019-12-17 Outpatient TONIA RANDALL [id number] Memoria 15:45:00 15:45:00 17 l [place] 2019-12-05 2019-12-05 Outpatient TONIA RANDALL [id number] Memoria 16:00:00 16:00:00 18 l [place] 2019-12-05 2019-12-05 [facility] [id number] Common 10:40:00 10:40:[address] [facility] 2019-11-28 2019-11-28 [facility] [id number] Common 11:00:00 11:00:[address] [facility] 2019-11-19 2019-11-19 Outpatient MAXIMO MAXIMO [id number] Memoria 08:15:00 08:15:00 16 l [place] 2019-11-18 2019-11-18 Outpatient MAXIMO RANDALL [id number] Memoria 10:15:00 10:15:00 15 l [place] 2019-11-10 2019-11-10 [facility] [id number] Common 15:55:00 15:55:[address] [facility] 2019-11-05 2019-11-05 [facility] [id number] Common 18:33:00 18:33:[address] [facility] [address] [facility] 2019-10-28 2019-10-28 [facility] [id number] Common 11:08:00 11:08:[address] [facility] 2019-10-27 2019-10-27 [facility] [id number] Common 14:31:00 14:31:[address] [facility] 2019-10-13 2019-10-13 [facility] [id number] Common 09:00:00 09:00:[address] [facility] 2019-09-29 2019-09-29 [facility] [id number] Common 11:30:00 11:30:[address] [facility] 2019-09-26 2019-09-26 Outpatient MAXIMO MAXIMO [id number] Memoria 09:15:00 09:15:00 14 l [place] 2019-09-18 2019-09-18 [facility] [id number] Common 14:40:00 14:40:[address] [facility] 2019-08-15 2019-08-15 Outpatient TONIA RANDALL [id number] Memoria 13:30:00 13:30:00 13 dmitry Donato 2019-08-14 2019-08-14 [id number] Common 14:18:00 14:18:[address] [facility] 2019-08-13 2019-08-13 [facility] [id number] Common 11:00:00 11:00:[address] [facility] [address] [facility] 2019-07-18 2019-07-18 [facility] [id number] Common 09:00:00 09:00:[address] [facility] [address] [facility] 2019-07-08 2019-07-08 Outpatient TONIA RANDALL [id number] Memoria 10:00:00 10:00:00 11 dmitry Donato 2019-06-23 2019-06-23 [facility] [id number] Common 10:40:00 10:40:[address] [facility] [address] [facility] 2019-06-09 2019-06-09 [facility] [id number] Common 12:17:00 12:17:[address] [facility] [address] [facility] 2019-06-09 2019-06-09 [facility] [id number] Common 08:20:00 08:20:[address] [facility] 2019-05-30 2019-05-30 [facility] [id number] Common 08:00:00 08:00:[address] [facility] 2019-05-23 2019-05-23 Outpatient TONIA RANDALL [id number] Memoria 09:15:00 09:15:00 10 dmitry Donato 2019-05-16 2019-05-16 Outpatient TONIA RANDALL [id number] Memoria 08:30:00 08:30:00 12 dmitry Donato 2019-04-30 2019-04-30 Outpatient MHIE MHIE [id number] Memoria 09:15:00 09:15:00 09 dmitry Donato 2019-04-04 2019-04-04 Outpatient MHIE THELMAIE [id number] Memoria 09:30:00 09:30:00 08 dmitry Donato 2019-04-03 2019-04-03 [id number] Common 09:00:00 09:00:00 t [facility] 2019-03-24 2019-03-24 [facility] 26 [id number] Common 10:15:00 10:15:00 t Specialty/U Sp coretta Specialty rology - [facility] 2019-03-04 2019-03-04 [facility] [id number] Common 11:00:00 11:00:00 t Specialty/U Sp coretta Specialty rology - [facility] 2019-02-21 2019-02-21 [facility] [id number] Common 13:45:00 13:45:00 t Specialty/U Sp coretta Specialty rology - [facility] 2019-02-18 2019-02-18 [facility] [id number] Common 15:42:00 15:42:[address] [facility] [address] [facility] 2019-02-11 2019-02-11 [facility] [id number] Common 13:20:00 13:20:[address] [facility] [address] [facility] 2018-12-27 2018-12-27 Outpatient MHIE THELMAIE [id number] Memoria 09:30:00 09:30:00 07 dmitry Donato 2018-11-21 2018-11-21 Outpatient MHIE TONIA [id number] Memoria 15:00:00 15:00:00 06 dmitry Donato 2018-11-11 2018-11-11 [facility] [id number] Common 09:20:00 09:20:[address] [facility] [address] [facility] 2018-10-01 2018-10-01 [facility] [id number] Common 15:30:00 15:30:[address] [facility] [address] [facility] 2018-09-06 2018-09-06 [facility] [id number] Common 10:00:00 10:00:[address] [facility] it Road [facility] 2018-08-22 2018-08-22 Outpatient TONIA RANDALL [id number] Memoria 15:15:00 15:15:00 05 dmitry Donato 2018-06-13 2018-06-13 Outpatient TONIA RANDALL [id number] Memoria 14:00:00 14:00:00 04 dmitry Donato 2018-05-21 2018-05-21 [facility] [id number] Common 08:37:00 08:37:00 t [facility] it Road [facility] 2018-05-09 2018-05-09 [facility] [id number] Common 08:30:00 08:30:[address] [facility] [address] [facility] 2018-03-20 2018-03-20 Outpatient TONIA RANDALL [id number] Memoria 10:45:00 10:45:00 02 dmitry Donato 2018-03-13 2018-03-13 Outpatient TONIA RANDALL [id number] Memoria 14:00:00 14:00:00 03 dmitry Donato 2017-11-14 2017-11-14 Outpatient TONIA RANDALL [id number] Memoria 10:15:00 10:15:00 01 dmitry Donato Results Test Description Test Time Test Comments Results Result Comments Source POCT GLUCOSE (AUTOMATED) 2022-03-24 21:07:00 Test Item Value Reference Range Interpretation Comme nts POCT GLU (test code = 6054918415) 86 mg/dL 70-110 Lab Interpretation (test code = 12598-6) [facility] 21:07:00 Test Item Value Reference Range Interpretation Comments POCT GLU (test code = 2006463779) 86 mg/dL 70-110 Lab Interpretation (test code = Normal 66053-6) [facility] [id number] 16:43:01 Test Item Value Reference Range Interpretation Comments Case Report (test Surgical Pathology ? ? ? code = 7593283971) ?Case: [id number] ? Authorizing Provider: ?Earnest Nunez MD ? ? ?Collected: ? 03/23/2022 0936 ?Ordering Location: ? ? GI Endoscopy OR Department Received: ?03/23/2022 1143 ?Pathologist: ? Luisana Willard MD PHD ?Specimen: ? ?STOMACH, 1. Antral erythermia biopsy, eval for H. Pylori and intestinal metaplasia ? Final Diagnosis r1tdfJZjWCAcm3mmXCToeQTmK (test code = zEwMzNcZnRuYmpcdWMxIHtccn 5917344983) IiHYrznQufMUTtCFAkSH4syBv dtJc9rDdzQPUgcfN5rDFjHZsi b8oqLYU0d5reanuuJVNdJZxfG a9ghBNwmSlrOzKcRWQkRAt2nD 15SPMbhU0tyXQcXJr4DYRcbAT xkaFtUhWbCJPctYEioUJ1FNOv JV1ibpswNYfvUBkjGSXlbdC8H COejTMrZ7IoCVGmEQ3ehlycAY P3OLajMAQjGIN4NuBiDOOzm5Y zljs8HyQsyFJxAJhkbCRqfazd ecEcZIPrnnEKNkPGCE4YNRQEP UXRKI0ZR2hwgIUfDLSdWX2nV5 MJKPMYAhDAUURUJ0ZoD4gHVUO PWNACPQmPJAYOCEJUUs0DBTFQ WVxwYXIgICAgLSBOTyBJTlRFU 3RZWkBMDK5QPZXYOHWNREKxB6 CtJBzCMKcSK9gZJCoYPD0UGFD FYSMbnWRkGNYjAM1iHh7jNL2j GBlPO9XWAUsKZ0MmT6FZQZ0CL 60BAInIVK8PSVZBDPMrgWHmDR YmikGdlAFtNRvngYddQOfzn59 rcywgTUQgIDgvMTkvMjAyMiAg GXW2BlEqLT5fbQPwXHJacqIpt RBtgHsrcsKtHFdny2AuS6MmQy AwMFxhbnNpXGRlZmxhbmcxMDM hLDL9hkSuTAPhHHraIEQoFXzr Ip8fuFKdvMddCzPkVJNho8bvt mCVHGpcUcIrS438IQXfRIevs9 axv2YbXJTebKZxz8M0IUNFzbq uaNa2c5cwRgDlIwO3dOBwZZqv O8mfxkUfgKHpW3FolWEmrJd2t AqyF44ce2A8TaneZ2vyOCUlQQ TkT0HhIP8mGUHvCkj0ZWG6WSS 2NNVzMVVyO2VkOQ8iHSXyoKYe SGe8y9kgaHfjWYGmYPO5i0eiH PjtbnT3BK5osr0zdPm8t8kkmk FgIJIaUAEiqXDKCPLzN7DktFw kOd5euSb7zNogJenuPRY4Asl5 XG8ywl68rte6bPeeRXDbxgdqX dO4GOyuSVLszrrsUGb7NVznLN NdyFF1JXCdvFTlK7PxJSYhHL2 szqm5LFH2XYthYXKyEgZ1XGIe kEHwQEBalUhjVAvtk023XXS5O cQhFW6fX7Fil5N8sV5kdTPnJS AmuEQtChHgKMImwy5onWJnKJy tr2JfLSV7tjM1cBRtoBLvJDDo UZ98Nopsc6WeBpuaVAE6FXJml oKdm0Wjy9hlHtVehvAxE5chH4 UiEVAmNLShVPJgOcIogzOpj2Q kn4BnqXIhiCe4t5pdJXEcZDVc dMonk7wpJTY4VLXeO9V2qQOrc 9ewUOqwWKFwtSI3ojN8SVPkfY AoN4QcwG4gVQNpKR4tyly3i0m gPFG4XXztMSDwEdY9ceH7EBDe hJIgXKMjsHbpKIxhz119VLY1I hUeSLEcq0PsZ7KsdUgdX50sdN ydM93pFBNgdRlbaW6npZpcbG9 cZjBcZnMyNFxxbFxwbGFpblxm MVxmczIwXGxhbmcxMDMzXGhpY 3lqOnSuDUJguJlxJGvsc3QyFO YxXGNmMlxmczIwXHBhciBJIGh hitVoeNCby39zNDyyoTUeNLTa WCkhCZKqvJurc1HdV9orFP8rV 0AzwEYaomAofzKjIVsxMABhn1 o7tXTbdHnvm6OaoAEiDN37usW mPFEuHOL9PYZne2ioXR91jdeb UpQxcB65cgAehrSnZZVoz4hmP 7evhBXel6Qkv1ApmuOiGUtgv5 TzQZ0ctKOtxmuohWI5HYJprMO fgrMvmqJ9mZefRVBopQ2msP4z zFhqlB1nSwTnJgSyCSyzPX9gC VYdD1oilPUcKUDbLTCyE6lpQr CfcS8xxFghAbimedG3FLLrfc4 9 Clinical Information Chris Santos is a (test code = 61 year old female [id number]) Gastrointestinal hemorrhage, unspecified gastrointestinal hemorrhage type [K92.2]: 1. Antral erythermia biopsy, eval for H. Pylori and interstinal metaplasia Gross Description w1xqyFQuGNMomDXIGEAjPVZrS (test code = S1ccDcfkWj0oMgdJQIiqbG1gA [id number]) PrVQafq9epPKS8d0siesLKVzw xKLGnKErzEKFrgehcYvI5EZin HUCcnmvbTQl9SHkvNQCjiUK1T CUyvDXhR8KjZHCyGC3xstx7EP I6POrcIJSdFiX3NTMhRgSyAff uGNk2SMLcivJ2Qzx0LPOyRMJe dHWqo2C0ROajfcmdRBCxwBRlB 454RWlhx9ZuyXDyVYgokAUnAZ WZWtdsGbqpnYohb1NcqKXiENv rEUEpPHAePJzcxgwzSVr3WWTm GLxrpRYvSC1nbRjbFmkbqLnwm 2VjdCBcXGlkIDUxMDAyIFxcZG GsCF6IDzEcZBGlZDr9QWjaLGm 4STb5AC4TRvBoTYGvECmuGSm5 MrGmZDj3SMauGJ3HMBW2WCQ0L zE1QCEgNZIfWJKjHQg5SINaOT xmIEFyaWFsIFxcZnMgMTAgXFx kmJPhYV8quKincPAhadmunzQy JDMRLYOIHDCBDDYtmWIzIN5LN TEoJXkiYOWdcKRVHXA5XK4yRY ANClxsdHJwYXJcbGluMFxyaW4 fCH4KAUq8cuXcLIPqWeGuL1Zb R6jnXF5iPXLfpaBhGNMhrCIiC SGrsfYkn3PoZColjhJaQZQadR VkIHdpdGggdGhlIHBhdGllbnQ hrjZdTV6dLBBUODXedA6aXWNb IxJ9z99xQ3ieFRNsmVOqqTWya qz4kUNgFNDjsL1ps3nbJRK3XP iwAz8jLIooHKO1gD5ymOPsenN pfM96NAO2kM2abMMwEYXhhXoc w1gqYxKhkrUvY58lk5ofxQSwb 6IuFmI6NP4cnZimjwFivcWpB5 EmAWVjt97yxNX4sEXfbYFuKgO sW82pupTsBGwpAJ4keF6vACMz t18lPE4rEYQaRPNpKAEvrDIsj qErtfYqnOGmbVEbtU8xedWwa8 6oLOFtCDK9ORWfVRB6EOJuTER mjCDyeqHjN8mtNHqogJLeFgRF tIGeu0VoH2bwQD6dnLEiMpmyt XTnFQVodNfyl4OyvIRgSDJnr5 SymZJgEQzwPV1lBFX1Eb2uvAN hDEVtqsR8m0GrRTneFXHlTmab NCEcRRkwlWOqXV9OEHFnqLEPQ Xkks7ZvKAzmDICkHATHK2IfQT bhWBXzE41op9EWm0IkKOXqg9c eqYmei8BwpOGkJFvnDAWylENy XIipzZ2eEjJtn3kcvNs4FJcqa nF3TAKymd8ynMubbG3sSMdxz6 unHTA1NLKlnAOlqVAaUPbwiXx gkT9yGoEmSjk3IQpeFJDrQ2Gc I1TqduS3CMAjCAkbHMCbLJEhU Qp9 Disclaimer (test z6zjhLChOGNsy7qvWGOulPKgY code = [id number]) zEwMzNcZnRuYmpcdWMxIHtccn HtMBgvq5GdT1FkSvFxWDhqioN qITRwOmshokvuSJPtSSU5smCc LBLaDDwuJDJvUFlqZe3moACwk KonEdVdBALhf9chixVIYYsyLd HoZ105DWKiSWpfd7iuf9TsRPL zhIPwi0I4YCLXvydlmCo2ySzg Q21dd8W3OxtpX7iyFQFxNVMuZ 3YsMJ3nVJEqNor6HOO6UEG1LF FyPDPwB9AoHC0xBFOmgRUiAKu 1z2btxOaxTQWwPOU2i0hvQZbq bpOnUQ2fqg7kzVk4j9entqYeO TKaWXYzwZLEPYApX5MlaLmuQl 7afYh0oYfcLezoUDT1Onr7HW3 xyu92gag6iUvkIMPvofbkFgK0 YKcuGKZopxckAKx6GWaiSHZxf BQ4PUZnoTRsT2AfEFGfPR8tyq g9CFQ4DYwdOWRpWaZ1DPSarZM yCJUfyEleZCobs814QOR3VqCw YV1xD2Plx2K8nU5kxBHvEPEat OWkSpEpAGLmij4hnXGsAVanp6 VyLMJ4zfX9yVKadDCeAFUmKZ8 1Laegg7NxWpyyz7VjI09zkAW5 HLhoi4byEQ7lJtN4pcOvBZlpg 5ngsQ1pLzY0PMdrCB7uKP8fBR HgzR2fgicuFIVqKuSdojzyPSR bmOmbdrZcLd4yfItjRWD2HCtf I8nskP2vVqV2DRddS4czuB9tS Ea1MRzboVN9EZSrjT2eQL4jlh ccf2mgMEraEWbuNPJdzhZ3pcL 4QSEcsHCnI1ShbT3gSMNqQO1t hwvpn5lqDYO0OPekSFIzTGJ2G qUyQRHeb2Dqrid2AiYng0GmaH EcPSbmF76vh271JTEggyKlG3m wbGFpblxwbGFpblxmMFxmczI0 WOZvreStm3ToPCLgXIE1GUhgR LmmiLBtJRQncYrba8pbH6ArzY FyXHBsYWluXGYxXGZzMjBcbGF uZzEwMzNcaGljaFxmMVxkYmNo IQVrOYxgO7dfGkBwD0QiERKaX yFmtEWlL0scADwnwcZbZZFlrz CplBD9PEyvR6e0PUEassQbkAe 6jsNoKmGsAFQgMNF5SKjfcIGm WTEmm4XmocjenHXbKn2kuGYtE RVsnE4qMGGdCXNkWKbfXP9vsV l1RGCPhAVrgZCfMaWUPZMiAC7 8urIyVPEBgpqsa6I9HKhxJUIc i4JwqPIwK2wwf7JgBHQrr41qY R7et2E9s1ijTDP0HX6aw2VsXC GjgQHjrFTxGUCli8Euvvbyh9H tVETximVee1XzVYKqucAjmQDp ASTbtwBwlk7jyeJfSDScZETpV 5PnxwmzmPqnhyNxMUAvzb3ciy WuUBA7JDPLKDPhQTXzc6PzjP4 bgDQZPSV2fBXuep3kejZQdTVm IQNlxb76RMVhYV6wN3fhZMYwK VQlzdGyeIRqa3QoYAScfBK5nI AzVP3RNyILj92oGJBcCXVHiuV gCVMljToofND3mxP6dC0xEUmV REEpLlx+RYHlVUCETGDaQE7mn hAhp6TwrhSdjAkiBUTqcTDfu2 NhpSMnw3TgiCdzr7XzcEIbnIX zHI0aLQNihddsNCIrRAUNWnUB CEYdyqZ4g4YfCJLnIQYpKAF6n Idtyla9CAGqgF7bZNKyI3trln reTHpwRECdr1QhsD3elFSHeVB lc7SvaJNsqHKTgSWzZB5zoqWu MGcGCAbBHFH6qaTlXLSdx7MjV EvbL4wtB73qvRatgEb7sWB7ZK V0kK8nClq+IFxwYXJccGFyIEF rfNBovUMnEFTzcXtqciVuU6Np dxIvkO0ilBUoqbHmBW7iSX3pT 4Z7nOPfWFSoskNpk1kcBUlfws FqEbHylzUpUBEaVCidEQZca5R qFBcdVVP7KXcjprEddrNdmFVj mgirJFDPTERVgTNfeRGwRDP6J AonviZrllXrKX7noF0ckByzcX 3meGNuyYT0qsulXTXiPEByvFy uHFGcYP2tjYAlZPWqdcEDoQkg xKOwgA1tF4AaDOFoJBTpwv0eI IBpbO6aNOcqw8KuiicdHZZhAZ MkZCBuztDnzs6uWRKvyTGQJI1 UONfwxPTle0PgjkJqY7bSJCD4 NUQwNjYwMjgxKSBleGNlcHQgY UOmee38NOUdxJ9xbSgnZJIgiP 7cyI0qhRmssQ4fInEyJeKxVBa oTH1bIOCfG8besGCvNHYvOUCp I8jtQpNuhF5inWfqGLseSlMuL tRaBCzgCFV4uB== Embedded Images (test code = 4960845388) [facility] [id number] 16:43:01 Test Item Value Reference Range Interpretation Comments Case Report (test Surgical Pathology ? ? ? code = [id number]) ?Case: [id number] ? Authorizing Provider: ?Earnest Nunez MD ? ? ?Collected: ? 03/23/2022 0936 ?Ordering Location: ? ? GI Endoscopy OR Department Received: ?03/23/2022 1143 ?Pathologist: ? Luisana Willard MD PHD ?Specimen: ? ?STOMACH, 1. Antral erythermia biopsy, eval for H. Pylori and intestinal metaplasia ? Final Diagnosis g1mcrXZsTJHvk0sgEBUfzZHjC (test code = zEwMzNcZnRuYmpcdWMxIHtccn 8636804566) KuIAxatYvwEMDyICHcGW3kmQw uhZx7vIjlGZLvanO8lGRxHEqr g0wqGZU3d4gtrhdpOPStNIjsX t7qaHCngPclPpLmDFDxWZh9lK 48IJWulP7qtMRbAIa1SOCibYT aykOaTgLsNAEohKFhlUT6GKDa BN1etdttKVlrVPikYYRyksB2U SHwmQAtT1YlGXVgGQ2mvsvtOQ P9GGyyVJXmJDJ6HcFlZLZbr8V fane1MbYztOQhWUoxcKZfshpf ebRgVLSxtfITBhFCUU6BOZYBW BOFAS2FN3tulTQjTGIcVE7eE2 OCJVNRZkEPRPJFE2ZmK5sCCJE JFFVJIVhLXSVXEKFAXx7BGFSX WVxwYXIgICAgLSBOTyBJTlRFU 8LNBgABBI3QFNBCMUGYVZCjE8 XgJPkEWXiYV1aVTMnWOP3STJI FGLZbvYMmJPRqUB6tSr3fPD2f NSxRD5XFFHtDD3KpR6LVPT9WV 04MCHdPIR3ANMKPUPSecXJcYF DnvsCcoGKdZWbmaIhbOLqwp19 rcywgTUQgIDgvMTkvMjAyMiAg IKE9KyEjGO4kuUMjZZDlueGdf PXgtKyocfEqHZxxp9VbQ4SyHh AwMFxhbnNpXGRlZmxhbmcxMDM cEDH4mwYuMWJeHNvoTPBnZQqb Zz6qvUEwtRjmMzVdOUWwj8rwc qAJUSexHcJzQ683MMQtGRtnx2 mti0HxBHKhfLWxh9V2AKVWnkp sbHv3a4zvLoWcGbT3tZDyBTjs P4mxhoOkmDVlH0NlcLVwfGc3i VzwI91qo6J4OncqY1msEDYdBB UeH9FuFM7sUAUdDlz9QBA9ORI 2BCNxHCQsR4RgVT1lTTGnhETv XIk4c5hnjVhbSSLmZBT9w0khM DlhhyX3JQ9bmw8fgMx5b6spmf JiVPHhNCMywTHIHAUlA1ArmFz eVw6clJf3cTqkKxusWAU7Dhh8 YR6qiz28fub0uXifBZWrkcejQ sY4KNecRQIfztodRUr3TRneDJ DjqLF3OLDzyFQzI4JoRHHmVB4 cmqh4VZO0AJomDOTjJnT7HNBf cBXaQTLauNgsZTxeo498MEI3W vAfGU0oK7Ivt9U5oA8flDHpLK VzvFSqKnCcZESgzd7aeGZrJHu am3EzHKB0ogQ8bWMkqEObOFTr BH09Vsddi8AdUmoySTT1EBJnj yXui8Xdc9dpUnFgsnUbK1lbU7 McOFKpGFPuAAZqUxZkhmBoh8C ti8BidAFttNq2s0sbWGKdNQXv nMnyf6hnYET0LQHxH4M5eFLvy 1vdMPjoZANkeSM4ypW9VCZtbL CgG3CajQ3fKLZtFB1utcm2c4y qBPN5UTetNCVnRvF1agU0ICFq nVQeTQNyeBvlDGfvc597AUG9X bYrUKJge9CpW1KajVgtM91euD whM75zKQHbmSwioT0vjOtteZ4 cZjBcZnMyNFxxbFxwbGFpblxm MVxmczIwXGxhbmcxMDMzXGhpY 4dzCoYkVDWkkCsiYJdzm8SlTS YxXGNmMlxmczIwXHBhciBJIGh urcGwiBNbb95fMStftHHzHGQj WOhaWTQdxOltg7WzH7rzDC9dZ 9JveFQvvkSknzGkZXtyMLNhh3 j9xIZwrVhgn5BnqCZpZA93noM xQYGrIAH9SKSbl4njCA66iqvj NiRrsM17krHjdgNmJEFiq0jkP 6myoDOdp7Akj1LkmvKnOLono0 DlXS3zfQWyrkwkbPV1NVCjrHP xkdAozmH7kSfmJUOpfR1cnT7q zLujpB9qGkYnSgJyKHjgPG5kB BWrW3bxiYYqRXJfFREzL5bmQk JpoZ5qwCmfPnpmwuT2RLPjsg5 9 Clinical Information Chris Santos is a (test code = 61 year old female [id number]) Gastrointestinal hemorrhage, unspecified gastrointestinal hemorrhage type [K92.2]: 1. Antral erythermia biopsy, eval for H. Pylori and interstinal metaplasia Gross Description m1ozgDWwKONjdJZELAEhIAGlP (test code = M5fpPoubXv6oZmtDTNviyR3dF [id number]) GyRQqsh9vwXAR5n8emweRIDxr vWQWsCVypKSQefegrYsK3RGxh DLFyrbhzHSc9COszWCMzzLC2D OGyxHHfG5WlCFMqIH0ofbv0BE B1BFndWVCyPdW4LITnSqEaYwc mQNb4BDWptnS2Hzf0KKIqKCTj iUFlk8D7SPnmetysEOHwsOXcU 171UFtwx0FfiZXoBXgypTCaSA OUNmlgLtbziMufl8AwlCJjYDh bNJAbRZApFPowzatdWXx7AZAb LQnasGHjSA4qrTrfGbejqPshx 2VjdCBcXGlkIDUxMDAyIFxcZG AhET0HGfAkMELjKPp1TVcrJLm 2WHb0TH0ZLqPxQSSnSGycHBp5 NtKjTEc4FFimCV6FWEG2BXG5X zG9CPNqMSKaQOGbKTg8MKPeES xmIEFyaWFsIFxcZnMgMTAgXFx kyMAmVA8jeTbpzLNqonqovgVx WOSIEBWWKGRPJXFlaCGdER7DK LQmQXsqLPCnkDFQAVM4VO3rFW ANClxsdHJwYXJcbGluMFxyaW4 iGP8DYGk0njQyHTIfClGeX3Ee X5crRI1sEKQkqcEnCODijLSqU GShzjGky8JiSMnvnyTvOTJgtS VkIHdpdGggdGhlIHBhdGllbnQ njeMcFL6rSUMTQSTpiI7fULGb XmM8f48hS3kuKVOpcBNlgMDuj hp0pTOhDEVfbF2sn3mlEME6AA uwJq8pVSixIBV2fL3avWNirdK ojL83PWR9wR1bxEZoKZVjsCnd v3rpSmYtlhXeA83th2wjaKAdx 1DvTzD8FA8pgTclgeXmrxVjM4 PvYAZjb94pdLL2rRYjzYLnCjS iN82upjLiSGqdZO1ewQ7kCLSr z61cZI6kQTKpVYToTFGtpOKqo qKpupWnkJVggYLgvJ0tycHxj8 7aOTHtVHL7KMRpUFH8VRUqNUW jiBAfgxXxQ4dbLFvbqXWmFlIA oDNco8UtC4myLG6jhTMqSbfix NXgBDKozWyta9LuePUhFVNdt7 OluPVsUUrqQE4bEIJ0Ql2ooLC wDFJglnN7s9ZqDXbtUNKuHilr WSUjZUaxpKTsEE3JORLpzEZGY Vbth9JrXTbuIWTqLMEKS0DnIB ifBYDlT75al2LGg3QaKLOnf7f fjFgno1IksOFqVYlhDBPqeYSn YBzjiA7uIfRdi5wvqDb6JIspb kT8EPOvik8ztEcafD5jKTdcf4 nvWAT7XYQudVHgnUYmOZuthKr brD7kWdWtXbc1LDesOQPtL2Bo U3VuasV1CFZxDGruKMLzOWBdD Qp9 Disclaimer (test c5oggIYfZJEzb5ooVMLhiGNvY code = [id number]) zEwMzNcZnRuYmpcdWMxIHtccn BiVEdou6PrQ4TrQwSkZJegtrD hMTGsWfxzieoyUIXkJUW2dyLd YQFpHWyoBEKqQQupSp9jgLKzm CidSsZnDRMlr2hkfgAWFMiuGv OpE185JZNrGUlsw1ynn1FiODA scDNew2E3QMSPhjqmbKh2zPog Q99im0J1HnvrG8ysDKVwSKRcA 0AhMD1qBITcVfz6PTL4GBG3ZP BmPSWlW5SrOW4kDUKohTCdDHh 8h7jbfSnrAMHwPHJ5k6fdSWzz eiInFB1sof2zyLe4s3vycbVdS CQbXIFxyLHMZAWaW5ZqvWfqLy 8qwSw4oRdgArtqRSS7Vpa4KD0 aqh06wza5jNjsMEZoujyvDuG3 STxoNPTvptrjEUp7ABkxGPPkb PV1TXRumLCmH2OnYHLpRV1rzp s7NND0RPwsYDXrInB3PDNpuNT sKNAwdSbvTGldl781NLP8MkUa VC4qY9Mja8O9fF3zgYRaSPFha ABkYpBhQYZbey0bgRFzZUrde0 TeEYM0mjL6kPJvcRMgXVVnVE1 9Wmojx9TsGffuq0BuC53bsMS0 STtth3gnSF9gWyR9yuQdDFmed 5pbmS4aNlW8LPhcTU8kUB2yXA VwlN4myaaqTEIlVvHetsfrNEN rqFqcjpSrGh3stLryECW4KXwb L5ecvV8kIyM4IPmkC0javL1jC Ko9IJfwiNX8PAUdkG3sAW7ryg cgr1fmLSpdHCrgKRQwkdZ4eqZ 2HBHorGQkC8UseG8jJHIlNM1t nomxr0tzPVM0EToeIIXzHXG0W eDqKIXjl4Ifdwm6EvUvb0BhnW TkKPgkX40gu690OAFhpkCqR6h wbGFpblxwbGFpblxmMFxmczI0 XQDenfVhc9QdFAYwSEY9YJvrK KsutXNvQMAjaRlqk0qvS3AryQ FyXHBsYWluXGYxXGZzMjBcbGF uZzEwMzNcaGljaFxmMVxkYmNo XGChJQcrX0zbHqBmC2AsPJUeN kUkaAZnT9zlPLfexiNwUULpoz IoqLD7GKbiM2h2CXJtkcIjwKu 9uhMiTjGcGNRgVOX3CXczrELn CLSnq2EgunpxuFXyHu1mmCLfF CUhfI9kHYXjEFCoAVzeSI1pyD u4YKGXrZSqwNAcSjHLJRUdTJ4 3boDnKGMOqvgbh9B5QYnmMEJl y9PgyXGkU8bdt2LsYLKcl30yO V5ms9I6e9osIRK5YQ0qm6CtPB WqhXWkzJOmIJYzs2Thqogko0J rKXDvdiUfp8YsBKQaxfVmxRTc DMZedfNddj3gojRdHJHaYTJnX 2RwgeegkAqxdrSqXPNlln4qsu KfANB4IKNPWTHfKRGfh1OnrW2 xrNTEWWY0wXCgvv8xyfWYsHGx LMRdwy15FEVxBJ0dX1ubXNGjT JAuliCphCBmy1OiKBOsqVX6wL FvUX6JIvEBi73nGHQaGKIYtpE pBYUkwJxobOE0nlV2aX0mRMeK REEpLlx+QGHhSDAKQSLeWD5vq pEko5RgfhKsvWfyBCIxlDUhg8 KinRLbf6EazXsvg3YsuVJnuOP zSQ9zMWPsizwgPAZrWECMGtXF WEOujrV8j4SpANDvQAIpURZ8r Pejcxj0OMOzzH0hFIIlT3dqwz tkDIurLJVhn2MvpM3dkDUDrVP kx3IlsZXqtXGRgQElWR8bnoFu AVeFHTkAIHW4dmIrMDDdb6PxY RejV6pmU13toBoqmFt1oOX5JG Z9nS5xAsx+IFxwYXJccGFyIEF uyLRteQRhAXCyzTilkdNuI8Wf ftLhgM2tdEVyhmEsVS2zUQ9uH 5Q2xPXhBGPgweTcy4auBTuaqi VoVpEfzpDwDAPzYWrwKQDry9G mOIzoQJQ3AAtcsmJoqtUyzWDm xbkrPYLBGONTbWMagNQzYLR9P UvrdfYmxsIbED3idI6cbUqxhJ 9ouFOqfPJ3xkfcDQGhSROhkMm nYCFvBX2mgYPyKMIhdkQRiWws pQBxjQ6fE1WeVCNhYVPksp1fL PEtrW0cNNxiu4LvbcdvJBIfEL FgVQQgzwGwvd3kMWQmhHWIRW1 OFXksvYDzo5MzxaPaI9lRCIV3 NUQwNjYwMjgxKSBleGNlcHQgY XDoxw22RPBmzO6jfQpsXKTinN 7qkE3pqFtgmV6aXzFqVrUyFSa iTR9hIUQiE6bbcXPpAVGxNOTs I9vuOoOerR3wgPgxJPgsWxXrH aHrUNmwRPL1mD== Embedded Images (test code = [id number]) [facility] [id number] 16:43:01 Test Item Value Reference Range Interpretation Comments Case Report (test Surgical Pathology ? ? ? code = [id number]) ?Case: [id number] ? Authorizing Provider: ?Earnest Nunez MD ? ? ?Collected: ? 03/23/2022 0936 ?Ordering Location: ? ? GI Endoscopy OR Department Received: ?03/23/2022 1143 ?Pathologist: ? Luisana Willard MD PHD ?Specimen: ? ?STOMACH, 1. Antral erythermia biopsy, eval for H. Pylori and intestinal metaplasia ? Final Diagnosis x3scqNKhJMFft6nxXJLdjHFpO (test code = zEwMzNcZnRuYmpcdWMxIHtccn [id number]) SjQWlwqOulFVWpLGVoJL0tjXs ehDn5uNdyEWWykvT3uSQdNYic n7rnWYE9m3xhgtomXWWeSEpzW a4rhELhnYvhWxXcENMlFWf0rY 14EUPeoO6jqDSpOAk0URMakPB jvaPzYyXiDHLcqMNpaON0JVIv GG6blnzfSUywNWsbJIAmkcU4P SBmuJDfZ6ZcPZPkRK2kkizpYU Q1NIzrCIJdHID6YbVdUBYcp5X xkqd2RdVziOAtIMqapPEqvssw yhExQWKulwEJFwJIEJ7YCHJHN IZJBZ9MS3lawPBuPSUmKN3gD3 NPUBWAYmMWJOEZD0EvI9nGWWV KLCFZZDyJWQONUOZEWj2GKBHC WVxwYXIgICAgLSBOTyBJTlRFU 4QANvCTMT6SWOKEQAOTIRXcS0 EaNAoHQEhHN7iEWZjERQ3DPLI HFFNrzLRaEFKxHM9eDl9sVO6l JTrYI4CLRDfKV7GvR5ESTK4PR 58TLGdKBC7APTZSCTCtxGDnXO ZvlkPumPPyDWxypHypDObbk52 rcywgTUQgIDgvMTkvMjAyMiAg XOJ5ZoNgQL5wiDMbZIWxjcHws TCewLvlbsPjBPfji1OqC4McCc AwMFxhbnNpXGRlZmxhbmcxMDM zZFW7nvGuLRSrDQkvDVEzLXgx Dv9hdQTamZwoPcJhTCBbz3pmf uUFSJzbXiZlO170BYEpQHxxn3 xjp4HmMYHvyOCnm6R1RQBItcn oiBj2i0gwCaJuJiO0eXPrPWsn N5ugjcCkkZCdA4LinZKygJq7v RmbB29gv2K7JjxmH6nxYWQlCV EnO8VoEZ2sZUXqPsq7NGT2RKJ 3IMCxJRPsH6DcLD6qLNMyzVEz IFj5k9vsmGzhJLCgDKR8u0bdL YomayX2UY5dlc9oeXm0x5ttzr GyIALiJDMyfDQHAJQtR4YfqPc vQk4csDa9xLqcNujwUCK2Cpc3 GK1vdt12aix7iWpdLLBnunjbF tS6YQcpXEPiipvpWRj7ZIfoVH RlbNE6ACLwcJKyX7UhCJBeZK0 zdvo2OCT0MMnyENVrIrH4PAIf bFTsAYCpjIyfMVypd055QFE4N bXiTO5hV2Sfy2D7vL3ehTRzEY KgjQAeXoRoYEUpjq1xvXKuSSd oy6YvVCP1xiV7eJCenIUiWJDm CI46Zxmks4JjBofxTVT2RHIar rGze9Fsf9trIkTnnbAzV9ssC2 AkNUEkFTRbADLeMbPadaDhj8H ip9NepFVwjLa4z2zeDAAyTWJw hZhye9puZMG3TGDyE7V5uCXtu 1kaWDpkOHHboYG8xdJ7OFHzzP DlH4IzhP6lORRnNG4jhvy9h4w pQGR0DRptCZFsKcB3voS5IIUi jSPnMVRtrJojKTdsa066OMJ7S vBeBAUkg9WwZ0YuyRofP54wwO chK29iSVFscOkzvZ3hsPtbjO5 cZjBcZnMyNFxxbFxwbGFpblxm MVxmczIwXGxhbmcxMDMzXGhpY 2heKqMkDAVosBzzXMzfy8OtJL YxXGNmMlxmczIwXHBhciBJIGh qsoQfqBGiq40oSDjfmUOyAZTj LHrxEPZixNaob9YrJ7ntNR0vZ 3KbeXKyvnUktnIiZLxwBGEky1 z8eEVmrXbkw6JzqTEpGZ70lgB kISSqYAK9FRSib0zbYJ85nulv GiLwjT72noNntcQsMOXpk1lnA 2kmxTRix0Bcu0ApmjErQMngo0 NmPC5vbYIvnyiypDJ8KPDnsRO xyhPujbF8mXkhAWHdgY6qkX1n eAjyiZ9gWxMqGlNhWJfdCE6iH VCoY3wdaAFeKSWwNSZaZ1ahMf EblF7jsHivEhccgsM6VRAdhr6 9 Clinical Information Chris Santos is a (test code = 61 year old female [id number]) Gastrointestinal hemorrhage, unspecified gastrointestinal hemorrhage type [K92.2]: 1. Antral erythermia biopsy, eval for H. Pylori and interstinal metaplasia Gross Description l4oxnFZnQHJeyWPSPQFzQMIhB (test code = X1rjImsyIw7vUzzSAAsawE0iB [id number]) MqHAjjf7mhOMS3y1rwirMDVyi kOGWlTSucJJVyhpasJkG4CWxn LVTuukxwYKs5FOacJPXviHH9U EVitTAqM7GwYFIiSS2kldz6MY L4YPkdSUMeAlH0PDZuRvJgZic tJXb6AMGnyuM8Mpo9CACzZBXh sSFnq9V9TTeabuzvQUOpvYPdK 846UEbgq8McpJVxBJysvHCkCT MAHuwoFqujiBlko2PwiYJjBXt yUTSbWTZnZQpfyxokKKj2QZGi RSvufLSiLA0mrHftXjsogNftj 2VjdCBcXGlkIDUxMDAyIFxcZG BbUN9BZxNgJPWwOCm3RRwhRGn 7CHp6PA1CZnGcRDMnKTvxUIp8 SeNmAWa5TWdcPO4ISUW5NYJ7C aB4DHNhDLApAWJgGHp3HZZfCI xmIEFyaWFsIFxcZnMgMTAgXFx ynEZhJW4yeDerzUFhcwtjseWl ZXPEOTUILPLETGSijDIhDK5NM SHnRPvrARUivXTZKTC9DO9wCS ANClxsdHJwYXJcbGluMFxyaW4 oKX6BLBc2foPvFURjUpJxS2Jj N7vjAV1eSTEbivYsMQMdaYOgQ CPnohYle1RlFPabjzWzRPRwvH VkIHdpdGggdGhlIHBhdGllbnQ kmiUvJC4pHIJYSSZivJ0dIVDa GkW5d90zE0yuMDVtxVLmqEQva wa7lGMeILWksC9do0wmFLE4DA aoIv0uMWqoCJV2dR2dzGKxzlN mjW00XVP2zF9bhMTaRQWjzOrk r4zhCgPgtvHaS02gg6dshULzy 1BoDvJ3PN0ceLagipFkrzNoT4 TcMIYsm19saMY9cNCzxMHgAhG wZ10cprGdLEpqHX2qbD9bMWNm h76rHK0jDVXsONWqUJZppIWhn cZqjuTvjPQtpWGffV1vmoXql1 6qNCTgNGR3AVHkZKC5APGvQUK xkVAujmTmR5iyJAainOMcZlKX bIXnk4TaD5uqQN9yoGKrNanvb HCaHQZgyOoet6LipUAkZAXpi4 EzkKIxPUdjKU3iHCB7Op2spYM xXOAlqfH8s7WvLZbzVOZiBkje PUDuMKyneVKmHQ3AMISitCWKM Ccij8ZuWGfiRRSeAAYPE7DkFC wjWPXgH96qk9IFg7XgIPGha3c peYxus8HyrDJpBYueHQTesNDa WNvjuQ6hNgRko9fphXr7FKids dV8TSZhlv2siVrcqL3lKBeap1 hlSIQ8YBEbsNXudBAxICdcrVq rbP8yHtKtPoo0KEgsCALbN9Iq E0OaxcJ5CMBcLGvoSQXsARZoR Qp9 Disclaimer (test f4yqeBGfLIZke4fyZFOfbYFjK code = [id number]) zEwMzNcZnRuYmpcdWMxIHtccn IrDVqiy2OmE0StOhXmHIwsnaL uLXRpPkhukwqzMHIbPXE3ccQq SZGfNKqwQETrMHgwBi8tgQVrl SnfWnQbGOEic6gpqnQQPJuhOs LhO314RFKgYJtjg3ppo4CmTBB seWAnc0N6YLCTgxujvZl5aMai S09jc5H9LushF4onCGXqGFNfW 6KcPO9tRXMnBso9DMH5GUF8IU JbUUXiK5QzYD7aIMUrmMElHQz 9v7bfsHqtQCFoTZF7b3kfBMqv asSeIH4rtz9gpVe7o4gzajRtI RLxXYXqaIEQSJOhQ6SofQpeMi 2skTo8fAspAdxhHXY0Vhi8VO6 pcp40pmr9mUryUYEpgjthGfJ1 QUfiVKCgrxgaERv4KNfpGTUqm HL3PRMfmWBtP9BxGXOcOF1rzg r1EPI3GRcwACNkNoT2SYTnuAF iECUkbJiqQMyen138FHZ7LoMq FW9oQ8Kyx1Y7vI4htGWfSDMwv MUoMnYqPRUtsq4rkQGlQTnkg0 KfOAA2deQ8hESghIYtMABqMS2 5Ftizk4RuRfuqh8PvA18vbTX5 QKjua0wdPN5yUdA8tcCbGUmuu 8pkdI8aSrG8FZulGT7fQN1yLT FkbO1hzwotXHHbOhPyheicYJY kgZhgjuCxBm8vzNgjZTD0LYnh L8pxoP7eQgU0GVhiU6amdK4sU Qe9HYoydRS6XVQrtT6dUV9dne web6szSMnpVTzoFMFmynH3tnR 3LJZqpMArG4QuaL8pOZWbJH5b xaacv0cbVRJ3STqoEMKvJNC5N zKbNHHuc6Uqtja5AfNhb9YskW ErCXwfA32fi762TEUpjtGwW3l wbGFpblxwbGFpblxmMFxmczI0 TAJqfzOxd4TiBGTwHON3FQzfO UvqfVWmRXQhsPepp0kuO8RfbS FyXHBsYWluXGYxXGZzMjBcbGF uZzEwMzNcaGljaFxmMVxkYmNo JASaOSanL3atPaJxZ7VqXAAzR bLekXLqX6isWErsxrMtXBTdqv RwtIV2YGsjH9t8KYIihvGikTb 6nlOuToDvVGWcVKR0PZsgyUWv LJJky2JznomdeAWiUs9muAReY WRqpL0yWJApNIEdGQtpNJ0vgO n0SHJJuJGtjSVzYrJKRPTcOY4 9kzCpMUUUgvqdr1S8JXrlXSOg f6FsmPCzC3eco6XxGJYkt24iI S4bp2V9g2msYSI0UX1zk3YyPS KfvKDwrLTiPLPan1Szkesip5O mCRUzpqAtg3LuOFNzlbDspLHu AEJbzqUepv5espJfUKZqHQBhW 0EmvvqpqQhxfzVwGJXkkk0qkn VkDAT4EMKLFFLwBGCan8TehA1 cuYMXHAF0cVFrjb8djqVDgVXo ZYSqyq97UJMvPN2iL4ayICXrL ZGiwkYqdZWpw7BjZAQjvOS0eX UiJQ1GUmEVn25hPGArHQVGhrA vGSHveLgtlFF5lfV8iU2jENgW REEpLlx+LFGjSVHTXNPmAY4ns iWlp8EzjmRgpAypMXLxpSCvq5 BiuBAnr5KfqTdep3OgjJQodKH pKI9zCFIfunzhOXYiYZMJThJB AKTcbjK3m8RxQLYfQSDpCVP8i Duokpt9KVBnyB6rJBPnF9sjup nxHPpkGLGog9JppW0enWMMhIW qx0PoqXXtaZZOsCWaVF0twgEt BLzUIKdFICT4hmKyOPGmy6RaT MlxL4tkC20oaCjptVn4uOC3DM N1hZ1uQia+IFxwYXJccGFyIEF soEZflDOpKTTpiZgbuyHjT1Ca lcYvvD3hdPDahyPvVH9lGN1aQ 7D2mMLcZYCxraWsv3dpJBahst GyIlBmwxLiBJMlSKnfZAKag1T yXZjaJRT9UPcxteQrzfMhbBOy zpvfVOJMKYHWqJCxfEWwIGJ4B HnuweSbkxGvSA6piH9iiCmviM 6kkFZkbSM6mkqtAHHiCVLzmVi mVTWrCM9jjVEzWLBfjhCXhGay rTTebU6pY5GaDOScEQGbki9aH PJakR4mGOqhv5QdbycxZMMnRR IeUOSodrCfrk8kCMNspIRXMT8 MXJkarKWxq2AjffReL5mVHWB1 NUQwNjYwMjgxKSBleGNlcHQgY ICxhy68BVBpsS8ggNhvMBOucI 3maL2ffEoxfU4zWrUcPnUhLZc oOX3bHNAwP4sysTPdTRMyYJWn U0cyBzNqhF1yhVqoIOoeWzLbE eBzVPjxZJJ1uG== Embedded Images (test code = 6414177268) [facility] GLUCOSE (AUTOMATED)2022-03-24 13:31:30 Test Item Value Reference Range Interpretation Comments POCT GLU (test code = 7230058799) 102 mg/dL 70-110 Lab Interpretation (test code = Normal 94186-2) [facility] GLUCOSE (AUTOMATED)2022-03-24 13:31:30 Test Item Value Reference Range Interpretation Comments POCT GLU (test code = 2990469957) 102 mg/dL 70-110 Lab Interpretation (test code = Normal 80304-0) [facility] GLUCOSE (AUTOMATED)2022-03-24 13:31:30 Test Item Value Reference Range Interpretation Comments POCT GLU (test code = 2480569543) 102 mg/dL 70-110 Lab Interpretation (test code = Normal 80592-6) [facility] GLUCOSE (AUTOMATED)2022-03-24 04:05:12 Test Item Value Reference Range Interpretation Comments POCT GLU (test code = 6295277388) 89 mg/dL 70-110 Lab Interpretation (test code = Normal 84358-3) [facility] GLUCOSE (AUTOMATED)2022-03-24 04:05:12 Test Item Value Reference Range Interpretation Comments POCT GLU (test code = 3943344170) 89 mg/dL 70-110 Lab Interpretation (test code = Normal 07615-2) [facility] GLUCOSE (AUTOMATED)2022-03-24 04:05:12 Test Item Value Reference Range Interpretation Comments POCT GLU (test code = 8348480702) 89 mg/dL 70-110 Lab Interpretation (test code = Normal 64739-5) [facility] GLUCOSE (AUTOMATED)2022-03-24 01:56:37 Test Item Value Reference Range Interpretation Comments POCT GLU (test code = 0131065357) 64 mg/dL 70-110 L Lab Interpretation (test code = Abnormal 15212-2) [facility] 01:56:37 Test Item Value Reference Range Interpretation Comments POCT GLU (test code = 8920314139) 64 mg/dL 70-110 L Lab Interpretation (test code = Abnormal 40634-8) [facility] 01:56:37 Test Item Value Reference Range Interpretation Comments POCT GLU (test code = 9945344029) 64 mg/dL 70-110 L Lab Interpretation (test code = Abnormal 81216-4) [facility] GLUCOSE (AUTOMATED)2022-03-23 22:07:11 Test Item Value Reference Range Interpretation Comments POCT GLU (test code = 9041774881) 142 mg/dL 70-110 H Lab Interpretation (test code = Abnormal 07113-7) [facility] GLUCOSE (AUTOMATED)2022-03-23 22:07:11 Test Item Value Reference Range Interpretation Comments POCT GLU (test code = 3349989914) 142 mg/dL 70-110 H Lab Interpretation (test code = Abnormal 75372-7) [facility] GLUCOSE (AUTOMATED)2022-03-23 22:07:11 Test Item Value Reference Range Interpretation Comments POCT GLU (test code = 6135456323) 142 mg/dL 70-110 H Lab Interpretation (test code = Abnormal 59789-0) [facility] GLUCOSE (AUTOMATED)2022-03-23 12:57:32 Test Item Value Reference Range Interpretation Comments POCT GLU (test code = 3311074868) 97 mg/dL 70-110 Lab Interpretation (test code = Normal 82866-9) [facility] GLUCOSE (AUTOMATED)2022-03-23 12:57:32 Test Item Value Reference Range Interpretation Comments POCT GLU (test code = 8517214450) 97 mg/dL 70-110 Lab Interpretation (test code = Normal 49073-0) [facility] 12:57:32 Test Item Value Reference Range Interpretation Comments POCT GLU (test code = 0525159463) 97 mg/dL 70-110 Lab Interpretation (test code = Normal 92536-0) [facility] GLUCOSE (AUTOMATED)2022-03-23 02:07:44 Test Item Value Reference Range Interpretation Comments POCT GLU (test code = 2945088261) 164 mg/dL 70-110 H Lab Interpretation (test code = Abnormal 09882-5[facility]:07:44 Test Item Value Reference Range Interpretation Comments POCT GLU (test code = 6237724809) 164 mg/dL 70-110 H Lab Interpretation (test code = Abnormal 31850-8) [facility] 02:07:44 Test Item Value Reference Range Interpretation Comments POCT GLU (test code = 6567962203) 164 mg/dL 70-110 H Lab Interpretation (test code = Abnormal 66467-1) [facility] GLUCOSE (AUTOMATED)2022-03-23 01:29:25 Test Item Value Reference Range Interpretation Comments POCT GLU (test code = 1506764554) 64 mg/dL 70-110 L Lab Interpretation (test code = Abnormal 35202-8) [facility] 01:29:25 Test Item Value Reference Range Interpretation Comments POCT GLU (test code = 0482800248) 64 mg/dL 70-110 L Lab Interpretation (test code = Abnormal 43706-5) [facility] 01:29:25 Test Item Value Reference Range Interpretation Comments POCT GLU (test code = 8347155762) 64 mg/dL 70-110 L Lab Interpretation (test code = Abnormal 19035-9) [facility] 22:10:52 Test Item Value Reference Range Interpretation Comments POCT GLU (test code = 4530871839) 263 mg/dL 70-110 H Lab Interpretation (test code = Abnormal 34599-5) [facility] 22:10:52 Test Item Value Reference Range Interpretation Comments POCT GLU (test code = 3024758112) 263 mg/dL 70-110 H Lab Interpretation (test code = Abnormal 97582-8) [facility] GLUCOSE (AUTOMATED)2022-03-22 22:10:52 Test Item Value Reference Range Interpretation Comments POCT GLU (test code = 9123273341) 263 mg/dL 70-110 H Lab Interpretation (test code = Abnormal 96065-1) [facility] and Screen - ONCE [id number] 21:13:40 Test Item Value Reference Range Interpretation Comments ABO & RH (test code A POSITIVE Performe d at [facility] = 20) Laboratory [facility] Blood [address] [address]Iarm Free: [phone] A No. [id number] IAT (test code = Negative Performed a t NEMB 1185) Laboratory [facility] Blood [address] [address]Dose Free: [phone] A No. [id number] [facility] and Screen - ONCE [id number] 21:13:40 Test Item Value Reference Range Interpretation Comments ABO & RH (test code A POSITIVE Performe d at [facility] = 20) Laboratory [facility] Blood [address] [address]Ytdb Free: [phone] A No. [id number] IAT (test code = Negative Performed a t [facility] 1185) Laboratory [facility] Blood [address] s [address]Yruf Free: [phone] A No. [id number] [facility] and Screen - ONCE [id number] 21:13:40 Test Item Value Reference Range Interpretation Comments ABO & RH (test code A POSITIVE Performe d at [facility] = 20) Laboratory [facility] Blood Bank[address] [place] [address]Uvab Free: [phone] A No. [id number] IAT (test code = Negative Performed a t [facility] 1185) Laboratory [facility] Blood Bank[address] [place] [address] s [address]Nksp Free: [phone] A No. [id number] [facility] [id number] 15:23:00 Test Item Value Reference Range Interpretation Comments ATYPICAL pANCA (test <1:20 titer See_Comment The aty pical pANCA code = ANCACOM) pattern has been observed in asignificant percentage of p atients with ulcerative colitis,primary sclerosing chol angitis and autoimmune hepatitis. ASCA+/PANCA- Suggestive of C rohn's disease ASCA-/P ANCA+ Suggestive of Ulcerative colitisPerforme d At: [facility] [address] [place] [id number] ra Kevin LEMUS Ph:[phone] [Automated mess age] The system [employer] generated this result transmitted ref erence range: Neg:<1:2 0. The reference range was not used to int erpret this result as normal/abnormal . AB SACCHAROMYCES <20.0 Units 0.0-24.9 Negative < 20.0 CEREVIS IGA (test Equivocal 20.1 - 24.9 code = ASCAGA) Positive >or= 25.0IgA and IgG antibod y testing for S. cerevisiae isus eful adjunct testing for differentiating Crohn'sdisease and ulcerative coli tis. Close to 80% of Crohn's disease patient s are positive for ei therIgA or IgG. In ulce rative colitis, less t moralez 15% arepositive for IgG and less than 2 % are positive forIgA . Fewer than 5% are pos itive for either IgG orIgA antibody, and n o healthy control s had antibodyfor bot h. AB SACCHAROMYCES 44.7 Units 0.0-24.9 A Negative < 20.0 CEREVIS IGG (test Equivocal 20.1 - 24.9 code = ASCAGG) Positive >or= 25.0 [id number] 11:15:00 Test Item Value Reference Range Interpretation Comments GLUBED (test 95 mg/dL 70-105 N Intravenous adm inistration of code = GLUBED) N-acetylcyste ine which resultsin blood concentrations >5 mg/dL will cause overestim ationof blood glucose results . Do not use during intraven ousinfusion of N'acetylcystein e. BASIC METABOLIC [id number] 08:19:00 Test Item Value Reference Range Interpretation [...] mg/dL 8.5-10.1 L = CA) CBC W/AUTO [id number] 08:10:00 Test Item Value Reference Range Interpretation [...] = BA#) 0.03 10 3/uL 0.0-0.1 N [id number] 06:06:00 Test Item Value Reference Range Interpretation Comments GLUBED (test 114 mg/dL 70-105 H Intravenous adm inistration code = GLUBED) of N-acetylcy steine which resultsin blood concentrations >5 mg/dL will cause overestim ationof blood glucose results . Do not use during intraven ousinfusion of N'acetylcyst eine. HGBA1C - GLYCOSYLATED [id number] 03:08:00 Test Item Value Reference Range Interpretation Comments GLYCOSYLATED HEMOGLOBIN 5.2 % 4.8-5.6 Pre diabetes: 5.7 - (HA1C) (test code = 6.4 Diab etes: >6.4 GLYHGB) Glycemic contro l for adults with jose betes: <7.0Performed A t: [facility] [address] [id number] monae Neely MD Ph:[phone] [id number] 23:20:00 Test Item Value Reference Range Interpretation Comments GLUBED (test 121 mg/dL 70-105 H Intravenous adm inistration code = GLUBED) of N-acetylcy steine which resultsin blood concentrations >5 mg/dL will cause overestim ationof blood glucose results . Do not use during intraven ousinfusion of N'acetylcyst eine. [id number] 16:38:00 Test Item Value Reference Range Interpretation Comments GLUBED (test 84 mg/dL 70-105 N Intravenous adm inistration of code = GLUBED) N-acetylcyste ine which resultsin blood concentrations >5 mg/dL will cause overestim ationof blood glucose results . Do not use during intraven ousinfusion of N'acetylcystein e. HGB [id number] 16:14:00 Test Item Value Reference Range Interpretation Comments HEMOGLOBIN (test code = HGB) 9.1 g/dL 12.0-16.0 L HEMATOCRIT (test code = HCT) 28.9 % 37.0-55.0 L - CT ABD PELVIS W/O [id number] 13:47:00 [facility] [place] [place]PRESSName: CHRIS SANTOS : 1960 Sex: FPatient Name: CHRIS SANTOS Unit No: [id number] EXAMS: CPT CODE: [id number] CT ABD PELVIS W/O CONT 93737 EXAM: CT ABDOMEN AND PELVIS WITHOUT CONTRAST [...] Peritoneum/Other: No extraluminal air. No extraluminal fluid. I MPRESSION: Name: CHRIS SANTOS Formerly [facility] [place] Phys: [place] [address] : 1960 Age: 61 Sex: [place] [address] Loc: NC.6204 1 Exam Date: 10/16/2021 Status: ADM IN PH: FAX: PAGE 1 Signed Report (CONTINUED) Patient Name: CHRIS SANTOS Unit No: [id number] EXAMS: CPT CODE: [id number] CT ABD PELVIS W/O CONT 12880 (Continued) No acute abdominal or pelvic abnormalities. at 1347 Reported and signed by: Justa Winston M.D. CC: Self Referred; Stanley Lobo MD; Monie Nash NP Technologist: Aura Pérez; Chey Blas CTDI: 20.53 DLP: 1225.6 Trscr Dt/Tm:10/17/2021 (1347) by:Jose REB14 Electronic Signature Date/Time: 10/17/2021 (1347)Orig Print D/T: S:10/17/2021 (1350) Name: CHRIS SANTOS [facility] [place] Phys: [place] [address] : 1960 Age: 61 Sex: [place] [phone] Loc: NC.6204 1 Exam Date: 10/16/2021 Status: ADM IN PH: FAX: PAGE 2 Signed ReportCOMPREHENSIVE METABOLIC [id number] 08:59:00 Test Item Value Reference Range Interpretation [...] code = ALKP) FE W/TOTAL IRON BINDING [id number] 08:59:00 Test Item Value Reference Range Interpretation Comments IRON (test code = IRON) 124 ug/dL 50-175 N TOTAL IRON BINDING CAPACITY (test 307 ug/dL 260-445 N code = TIBC) IRON SATURATION (test code = FESAT) 40 % 11-46 N VITAMIN [id number] 08:59:00 Test Item Value Reference Range Interpretation Comments VITAMIN B12 (test code = VITB12) 352 pg/mL 254-1320 N FOLIC [id number] 08:59:00 Test Item Value Reference Range Interpretation Comments FOLIC ACID (test code = FOL) 35.90 ng/ml 3.10-17.50 H TSH REFLEX TO [id number] 08:59:00 Test Item Value Reference Range Interpretation Comments TSH REFLEX TO FT4 (test code = 3.36 mIU/mL 0.36-3.74 N TSHREFLEX) [id number] 08:59:00 Test Item Value Reference Range Interpretation Comments FERRITIN (test code = BURKE) 132 ng/mL 8-388 N PROTHROMBIN [id number] 08:20:00 Test Item Value Reference Range Interpretation [...] and/or recurren t systemicemboliz ation. CBC W/AUTO [id number] 08:11:00 Test Item Value Reference Range Interpretation [...] = BA#) 0.05 10 3/uL 0.0-0.1 N [id number] 07:33:00 Test Item Value Reference Range Interpretation Comments GLUBED (test 96 mg/dL 70-105 N Intravenous adm inistration of code = GLUBED) N-acetylcyste ine which resultsin blood concentrations >5 mg/dL will cause overestim ationof blood glucose results . Do not use during intraven ousinfusion of N'acetylcystein e. COVID 19 INHOUSE [id number] 04:58:00 Test Item Value Reference Range Interpretation Comments COVID 19 INHOUSE NEGATIVE Negative Negative re sults do not AG (test code = preclude 201 9-nCoV infection [id number]) andshould not b e used as the sole basis for treatment or otherpatient ma nagement decisions. Nega tive results must becombined with clinical observ ations, patient history , andepidemiologi gregg information. [id number] 04:23:00 Test Item Value Reference Range Interpretation Comments GLUBED (test 79 mg/dL 70-105 N Intravenous adm inistration of code = GLUBED) N-acetylcyste ine which resultsin blood concentrations >5 mg/dL will cause overestim ationof blood glucose results . Do not use during intraven ousinfusion of N'acetylcystein e. [id number] 20:25:00 Test Item Value Reference Range Interpretation Comments GLUBED (test 105 mg/dL 70-105 N Intravenous adm inistration code = GLUBED) of N-acetylcy steine which resultsin blood concentrations >5 mg/dL will cause overestim ationof blood glucose results . Do not use during intraven ousinfusion of N'acetylcyst eine. [id number] 18:16:00 Test Item Value Reference Range Interpretation [...] LDLC) 28 mg/dL 0-100 N BASIC METABOLIC [id number] 15:24:00 Test Item Value Reference Range Interpretation [...] mg/dL 8.5-10.1 L = CA) LIVER FUNCTION [id number] 15:24:00 Test Item Value Reference Range Interpretation [...] 45-117 N PHOSPHATASE (test code = ALKP) [id number] 15:24:00 Test Item Value Reference Range Interpretation Comments LIPASE (test code = LIP) 108 U/L 73-393 N PROTHROMBIN [id number] 15:18:00 Test Item Value Reference Range Interpretation [...] and/or recurren t systemicemboliz ation. CBC W/O [id number] 15:06:00 Test Item Value Reference Range Interpretation [...]
[2022-04-15] MEDS ORDERED: LORazepam 2 MG/ML VIAL ONE ×2 (02:15→04:28)
[2022-04-15 02:56] LABS: Absolute Lymphocytes (CBC) 1.1 K/uL (0.7-4.9); Hematocrit 30.6 % (36.0-45.0); Lymphocytes % 17.5 % (15.3-44.8); MPV 7.5 fL (7.6-11.3); RBC Red Blood Cell Count 3.26 M/uL (3.86-4.86)
[2022-04-15 03:04] LABS: Protime INR 1.04
[2022-04-15 03:15] LABS: Urine Blood Negative (Negative); Urine Glucose Negative (Negative); Urine Protein Negative (Negative); Urine Specific Gravity 1.015 (1.005-1.030)
[2022-04-15 03:18] LABS: ALT/SGPT 18 U/L (12-78); AST/SGOT 15 U/L (15-37); Albumin 3.9 g/dL (3.4-5.0); Alkaline Phosphatase 81 U/L (45-117); BUN Blood Urea Nitrogen 10 mg/dL (7-18); Bicarbonate 26 mmol/L (21-32); Bilirubin Direct 0.2 mg/dL (0-0.2); Bilirubin Total 0.4 mg/dL (0.2-1.0); Glomerular Filtration Rate 85 ml/min (=/>90); Glucose Level 108 mg/dL (74-106); Potassium 3.1 mmol/L (3.5-5.1); Protein, Total 7.6 g/dL (6.4-8.2); Sodium Level 126 mmol/L (136-145)
[2022-04-15 03:19] LABS: Urine Blood Negative (Negative); Urine Glucose Negative (Negative); Urine Protein Negative (Negative)
[2022-04-15 03:20] LABS: Barbiturates NEGATIVE (NEGATIVE); Benzodiazepines NEGATIVE (NEGATIVE); Cocaine NEGATIVE (NEGATIVE); METHAMPHETAM NEGATIVE (NEGATIVE); Methadone NEGATIVE (NEGATIVE); Opiates NEGATIVE (NEGATIVE); Phencyclidine NEGATIVE (NEGATIVE); THC Cannibis NEGATIVE (NEGATIVE)
[2022-04-15] MEDS ORDERED: KCL 20 MEQ/100 mL IVPB 100 ML IV ONE (03:37)
[2022-04-15] MEDS ORDERED: POTASSIUM CL SA 10 MEQ TAB PO ONE (03:37)
[2022-04-15] MEDS ORDERED: NA CHLORIDE 0.9% 1,000 ML ONE (03:37)
--- NOTE | 2022-04-15 04:15 | EDPHYS ---
Physician Documentation [facility] Name: Radha Santos Age: 61 yrs Sex: Female : 1960 Arrival Date: 04/15/2022 Time: 01:52 Bed 5 Private MD: ED Physician Delvis Lr HPI: 04/15 02:33 This 61 yrs old Female presents to ER via EMS with complaints of depression, bipolar. rn 02:33 The patient presents to the emergency department with anxiety, depression. Onset: The rn symptoms/episode began/occurred 2 day(s) ago. Severity of symptoms: At their worst the symptoms were moderate in the emergency department the symptoms are unchanged. The patient has experienced similar episodes in the past. The patient has not recently seen a physician. Pt reports "needs help", has bipolar and has been feeling depressed, not able to sleep for last couple of days, does not feel suicidal or homicidal but is worried that if she does not get help she will harm herself. States current medications are not helping her. . Historical: - Allergies: 01:57 miconazole; ke1 01:57 skin cleanser combination no.17; ke1 - PMHx: 01:57 Anxiety; Chronic Abdominal Pain; chronic back pain; CVA; Depression; Diabetes - NIDDM; ke1 GERD; High Cholesterol; Hypertension; Hypothyroidism; - PSHx: 01:57 section; Cholecystectomy; Total abdominal hysterectomy; ke1 - Immunization history:: Client reports receiving the 1st dose of the Covid vaccine. - Social history:: Smoking status: Patient denies any tobacco usage or history of. - Family history:: not pertinent. - Hospitalizations: : No recent hospitalization is reported. ROS: 02:33 Constitutional: Negative for fever, chills, and weight loss, Eyes: Negative for injury, rn pain, redness, and discharge, Neck: Negative for injury, pain, and swelling, Cardiovascular: Negative for chest pain, palpitations, and edema, Respiratory: Negative for shortness of breath, cough, wheezing, and pleuritic chest pain, Abdomen/GI: Negative for abdominal pain, nausea, vomiting, diarrhea, and constipation, Back: Negative for injury and pain, MS/Extremity: Negative for injury and deformity, Skin: Negative for injury, rash, and discoloration, Neuro: Negative for headache, weakness, numbness, tingling, and seizure. Exam: 02:33 Constitutional: This is a well developed, well nourished patient who is awake, alert, rn restless Head/Face: Normocephalic, atraumatic. Eyes: Periorbital areas with no swelling, redness, or edema. Cardiovascular: Regular rate and rhythm. No pulse deficits. Respiratory: No increased work of breathing, no retractions or nasal flaring. Abdomen/GI: Soft, non-tender Skin: Warm, dry MS/ Extremity: Pulses equal, no cyanosis. Neuro: Awake and alert, GCS 15 06:01 ECG was reviewed by the Attending Physician. rn Vital Signs: 01:52 BP 139 / 83; Pulse 95; Resp 18; Temp 98.4; Pulse Ox 100% ; Weight 83.91 kg; Height 5 ke1 ft. 7 in. (170.18 cm); Pain 0/10; 03:54 BP 143 / 75; Pulse 90; Resp 19; Pulse Ox 98% on R/A; ll3 06:00 BP 144 / 83; Pulse 98; Resp 16; Pulse Ox 100% on R/A; ll3 10:04 BP 142 / 86; Pulse 91; Resp 18; Temp 98.0; Pulse Ox 99% on R/A; ph 01:52 Body Mass Index 28.97 (83.91 kg, 170.18 cm) ke1 MDM: 01:53 Patient medically screened. rn 04:13 Differential diagnosis: depression, bhavik. 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 Counseling: I had a detailed discussion with the patient and/or guardian regarding: the historical points, exam findings, and any diagnostic results supporting the discharge/admit diagnosis, lab results, the need for further work-up and treatment in the hospital, the need to transfer to another facility, [facility] does not immediately have the required specialist. 04/15 01:53 Order name: Acetaminophen; Complete Time: 03: rn 04/15 01:53 Order name: Basic Metabolic Panel; Complete Time: 03: rn 04/15 01:53 Order name: CBC with Diff; Complete Time: 03: rn 04/15 01:53 Order name: ETOH Level; Complete Time: : rn 04/15 01:53 Order name: Hepatic Function; Complete Time: 03:23 rn 04/15 01:53 Order name: PT-INR; Complete Time: 03:23 rn 04/15 01:53 Order name: Ptt, Activated; Complete Time: 03:23 rn 04/15 01:53 Order name: Salicylate; Complete Time: 03:23 rn 04/15 01:53 Order name: Urine Drug Screen; Complete Time: 03:23 rn 04/15 03:15 Order name: Urine Dipstick-Ancillary; Complete Time: 03:23 EDMS 04/15 03:20 Order name: Urine Dipstick-Ancillary; Complete Time: 03:23 EDMS 04/15 04:32 Order name: SARS RAPID ds4 04/15 01:53 Order name: EKG; Complete Time: 01:54 rn 04/15 01:53 Order name: EKG - Nurse/Tech; Complete Time: 03:15 rn 04/15 01:53 Order name: IV Saline Lock; Complete Time: 02:50 rn 04/15 01:53 Order name: Labs collected and sent; Complete Time: 02:50 rn 04/15 01:53 Order name: Suicide Screening ([place]); Complete Time: 02:02 rn 04/15 01:53 Order name: Urine Dipstick-Ancillary (obtain specimen); Complete Time: 03:20 rn 04/15 07:16 Order name: Diet Regular; Complete Time: 07:17 ph EC:01 Rate is 75 beats/min. Rhythm is regular. QRS [place] is Normal. MO interval is normal. QRS rn interval is normal. QT interval is normal. No Q waves. T waves are Normal. No ST changes noted. Clinical impression: NSR w/ Non-specific ST/T Changes. Interpreted by me. Reviewed by me. Administered Medications: 02:55 Drug: Ativan (LORazepam) 1 mg Route: IVP; Site: right antecubital; ke1 03:10 Follow up: Response: RASS: Alert and Calm (0) ke1 04:16 Follow up: Response: No adverse reaction ll3 03:37 Drug: Potassium Chloride 40 mEq Route: PO; ll3 04:16 Follow up: Response: No adverse reaction ll3 04:15 Drug: Potassium Chloride 10 mEq Route: IV; Rate: calculated rate; Site: left forearm; ll3 04:16 Drug: NS 0.9% 1000 ml Route: IV; Rate: 1000 ml; Site: left forearm; ll3 04:25 Drug: Ativan (LORazepam) 1 mg Route: IVP; Site: left forearm; ll3 05:00 Follow up: Response: RASS: Alert and Calm (0) ke1 Disposition Summary: 04/15/22 04:14 Transfer Ordered Transfer Location: Psych Facility rn Reason: Higher level of care rn Condition: Stable rn Problem: an ongoing problem rn Symptoms: have improved rn Accepting Physician: (04/15/22 10:05) leyda Diagnosis - Bipolar disorder with bhavik rn Forms: - Medication Reconciliation Form rn - SBAR form rn Signatures: Dispatcher [employer] EDDelvis Zuniga MD MD rn Hall, Patricia, RN RN ph Daniel Harden RN RN 3 Faheem Moseley RN RN ke1 Corrections: (The following items were deleted from the chart) 10:05 04:14 Dr. billings
--- NOTE | 2022-04-15 04:15 | ER ---
Nurse's Notes [facility] Name: Radha Santos Age: 61 yrs Sex: Female : 1960 Arrival Date: 04/15/2022 Time: 01:52 Bed 5 Private MD: Diagnosis: Bipolar disorder with bhavik Presentation: 04/15 01:52 Chief complaint: EMS states: Patient is depressed and wants mental health help. She has ke1 not been able to sleep since last night. Coronavirus screen: Vaccine status: Patient reports receiving the 1st dose of the Covid vaccine. Ebola Screen: No symptoms or risks identified at this time. Initial Sepsis Screen: Does the patient meet any 2 criteria? No. Patient's initial sepsis screen is negative. Does the patient have a suspected source of infection? No. Patient's initial sepsis screen is negative. Risk Assessment: Do you want to hurt yourself or someone else? Patient reports no desire to harm self or others. Onset of symptoms was April 14, 2022 at 09:00. 01:52 Method Of Arrival: EMS: [facility] ke1 01:52 Acuity: SAURAV 3 ke1 Triage Assessment: 01:57 General: Appears uncomfortable, Behavior is anxious. Pain: Denies pain. ke1 01:59 Neuro: Mckeon Agitation-Sedation Scale (RASS): 0 - Alert and Calm Level of ke1 Consciousness is awake, alert, Oriented to person, place, time, situation. Respiratory: Airway Respiratory effort is even, unlabored, Respiratory pattern is regular, symmetrical. Historical: - Allergies: 01:57 miconazole; ke1 01:57 skin cleanser combination no.17; ke1 - PMHx: 01:57 Anxiety; Chronic Abdominal Pain; chronic back pain; CVA; Depression; Diabetes - NIDDM; ke1 GERD; High Cholesterol; Hypertension; Hypothyroidism; - PSHx: 01:57 section; Cholecystectomy; Total abdominal hysterectomy; ke1 - Immunization history:: Client reports receiving the 1st dose of the Covid vaccine. - Social history:: Smoking status: Patient denies any tobacco usage or history of. - Family history:: not pertinent. - Hospitalizations: : No recent hospitalization is reported. Screenin:00 Abuse screen: Denies threats or abuse. Nutritional screening: No deficits noted. ke1 Tuberculosis screening: No symptoms or risk factors identified. Fall Risk None identified. Assessment: 01:45 Neuro: Mckeon Agitation-Sedation Scale (RASS): +1 Restless. ke1 03:54 Reassessment: No changes from previously documented assessment. Patient and/or family ll3 updated on plan of care and expected duration. Pain level reassessed. Patient is alert, oriented x 3, equal unlabored respirations, skin warm/dry/pink. 04:00 Neuro: Mckeon Agitation-Sedation Scale (RASS): +1 Restless. ke1 06:04 Reassessment: Nurse to nurse report with RIMA Coughlin at [facility]. ll3 08:08 Reassessment: Patient is alert, oriented x 3, equal unlabored respirations, skin ko1 warm/dry/pink. Patient denies pain at this time. 08:38 Reassessment: Patient appears in no apparent distress at this time. Patient and/or ph family updated on plan of care and expected duration. Pain level reassessed. Pt awake and alert, appears restless, given breakfast, tolerating well, awaiting transfer to [facility]. 09:44 Reassessment: Patient appears in no apparent distress at this time. Patient and/or ph family updated on plan of care and expected duration. Pain level reassessed. Patient is alert, oriented x 3, equal unlabored respirations, skin warm/dry/pink. Pt ambulatory to restroom w/ shuffling gait, spoke w/ a friend of pt's who states that she helps her w/ her medicines and takes her to appointments, states that she is currently under the care of a psychiatrist in [place], Dr Abbasi. Also reports that pt recently stopped taking Tylenol 4. 10:00 Reassessment: Patient appears in no apparent distress at this time. Patient and/or ph family updated on plan of care and expected duration. Pain level reassessed. Patient is alert, oriented x 3, equal unlabored respirations, skin warm/dry/pink. [facility] at bedside, report given to EMT. Vital Signs: 01:52 BP 139 / 83; Pulse 95; Resp 18; Temp 98.4; Pulse Ox 100% ; Weight 83.91 kg; Height 5 ke1 ft. 7 in. (170.18 cm); Pain 0/10; 03:54 BP 143 / 75; Pulse 90; Resp 19; Pulse Ox 98% on R/A; ll3 06:00 BP 144 / 83; Pulse 98; Resp 16; Pulse Ox 100% on R/A; ll3 10:04 BP 142 / 86; Pulse 91; Resp 18; Temp 98.0; Pulse Ox 99% on R/A; ph 01:52 Body Mass Index 28.97 (83.91 kg, 170.18 cm) ke1 ED Course: 01:52 Patient arrived in ED. ke1 01:52 Faheem Moseley, RIMA is Primary Nurse. ke1 01:52 Delvis Lr MD is Attending Physician. rn 01:56 Triage completed. ke1 02:00 Patient has correct armband on for positive identification. Bed in low position. Call [facility] light in reach. Side rails up X 1. Side rails up X2. 02:00 Arm band placed on Patient placed in an exam room, on a stretcher, on pulse oximetry. ll3 02:30 Missed attempt(s): 22 gauge in right forearm. ke1 02:40 Initial lab(s) drawn, by me, sent to lab. Inserted saline lock: 20 gauge in right bb antecubital area, using aseptic technique. Blood collected. 04:12 Inserted saline lock: 22 gauge in left forearm, using aseptic technique. ds4 06:04 connected Ced Calix from [facility] with Daniel Calix for nurse to nurse report. eb 06:28 No provider procedures requiring assistance completed. ll3 07:51 Linen changed. ko1 07:52 called [facility] spoke with Marsha Calix/ She will call me back once she figures eb out who's accepting and who the AOC is. 10:05 IV discontinued, intact, bleeding controlled, No redness/swelling at site. Pressure ph dressing applied. Administered Medications: 02:55 Drug: Ativan (LORazepam) 1 mg Route: IVP; Site: right antecubital; ke1 03:10 Follow up: Response: RASS: Alert and Calm (0) ke1 04:16 Follow up: Response: No adverse reaction ll3 03:37 Drug: Potassium Chloride 40 mEq Route: PO; ll3 04:16 Follow up: Response: No adverse reaction ll3 04:15 Drug: Potassium Chloride 10 mEq Route: IV; Rate: calculated rate; Site: left forearm; ll3 04:16 Drug: NS 0.9% 1000 ml Route: IV; Rate: 1000 ml; Site: left forearm; ll3 04:25 Drug: Ativan (LORazepam) 1 mg Route: IVP; Site: left forearm; ll3 05:00 Follow up: Response: RASS: Alert and Calm (0) ke1 Medication: 06:28 VIS not applicable for this client. ll3 Outcome: 04:14 ER care complete, transfer ordered by . rn 10:04 Transferred by ground EMS [facility]. Transfer form completed. Note: Pt ph transferred to [facility] 10:04 Condition: good 10:05 Patient left the ED. ph Signatures: Ly Wiggins, RN RN bb Delvis Lr MD MD rn Swanson, Donovan ds4 Lindsey Trivedi RN RN Justa Alvarado Lynsea RN RN ll3 Faheem Moseley RN RN ke1 Rahel Styles RN RN ko1
[2022-04-15 05:22] LABS: SARS-CoV-2 Antigen Rapid Res Negative (Negative)
[2022-04-15 10:50] VITALS: BP 142/86; TEMP 98; O2SAT 99
--- NOTE | 2022-04-17 05:41 | EKG ---
Test Date: 2022-04-15 Test Time: 03:13:18 Insulation Installer: TALIA MEASUREMENT RESULTS: Intervals: Rate: 75 ND: 200 QRSD: 112 QT: 406 QTc: 453 [place]: P: 55 ND: 200 QRS: -2 T: 48 INTERPRETIVE STATEMENTS: Normal sinus rhythm Possible Left atrial enlargement Incomplete right bundle branch block Borderline ECG Compared to ECG 03/22/2022 03:39:47 Incomplete right bundle-branch block now present Electronically Signed On 04-17-22 05:38:34 CDT by Davon Frank
== END 2022-04-15 10:05 ==
LOC: ER 01:49
DX: F30.9 Manic episode, unspecified (principal); I10 Essential (primary) hypertension; E11.9 Type 2 diabetes mellitus without complications; Z88.3 Allergy status to other anti-infective agents; Z20.822 Contact with and (suspected) exposure to COVID-19
CPT/HCPCS: 93005; 85025; 80048; 36415; 80320; 80329 ×2; 85610; 80076; 85730; 81003 ×2; 80307; 99285; 87811; J3480; J7030

== ENCOUNTER 2022-05-28 12:33 | Emergency (ER) | payer OTHER ==
--- OUTSIDE RECORDS SUMMARY | 2022-05-28 12:45 | XMS REPORT | Continuity of Care Document ---
:1960 Author Organization [facility] t Address [address] [id number] Care Team Providers Name Role Phone TERRY VILLARREAL Primary Care Physician Unavailable Skylar Triana Attending Clinician Unavailable MEHRDAD REYNA Attending Clinician Unavailable Terry Villarreal Attending Clinician Unavailable Sheryl Allison Attending Clinician Unavailable KUSUM PACHECO Attending Clinician Unavailable Kusum Iyer Attending Clinician Nichole Lau MD Attending Clinician Doctor Unassigned, Nimrod Attending Clinician Unavailable Karen Lowery RN Attending Clinician Unavailable PRAKASH RODRIGUEZ Attending Clinician Unavailable Prakash Rodriguez MD Attending Clinician Mayra LEMUS, Earnest Henning Attending Clinician ROXY BAJWA Attending Clinician Unavailable Roxy Melgar Attending Clinician Leon Wilson Attending Clinician Mehrdad Reyna MD Attending Clinician Only, Adc Test Attending Clinician Unavailable Stanley Lobo Attending Clinician Unavailable KATTY HEWITT S Attending Clinician Unavailable Lavell De Leon DO Attending Clinician Katty Correia Attending Clinician Radiology Attending Clinician Unavailable RADIOLOGY Attending Clinician Unavailable LEON IRENE Attending Clinician Unavailable Jona Kramer Attending Clinician Mauro Chinchilla MD Attending Clinician Gomez Hawkins MD Attending Clinician Tai Avalos CRNA Attending Clinician Maribel Moody MD, Leonard Attending Clinician NICHOLE LAU Attending Clinician Unavailable AMANDA JORDAN Attending Clinician Unavailable MEHRDAD REYNA Admitting Clinician Unavailable PRAKASH RODRIGUEZ Admitting Clinician Unavailable Prakash Rodriguez MD Admitting Clinician Mehrdad Reyna MD Admitting Clinician Stanley Lobo Admitting Clinician Unavailable LAVELL DE LEON Admitting Clinician Unavailable Gomez Hawkins MD Admitting Clinician Payers Payer Name Policy Type Policy Number Effective Date Expiration Date S [facility] [id number] 2020 [facility] 00:00:00 PPO HUMANA CHOICE [id number] 2013 00:00:00 [facility] [id number] 2021 Common TRS/ERS [facility] PPO 00:00:00 Spirit - [facility] MEDICARE [facility] [id number] Common [facility] [id number] Common [facility] Problems Condition Condition Condition Status Onset Resolution Last Treating Co mments Source Name Details Category Date Date Treatment Clinician Date GIB GIB Disease Active Univers (gastroint (gastroint 8-17 it y of estinal estinal 00:00: [place] bleeding) bleeding) 00 [facility] Branch Sinus Sinus Disease Active Univers tachycardi tachycardi 6-20 it y of a a 00:: [place] [facility] Anemia Anemia Disease Active Univers 6-20 ity of 00:00: [place] [facility] Essential Essential Disease Active Uni vers hypertensi hypertensi 6-20 it y of on on 00:00: [place] [facility] Type 2 Type 2 Disease Active Univers diabetes diabetes 6-20 ity of mellitus mellitus 00:00: [place] without without 00 Medical complicati complicati Br anch on, on, without without long-term long-term current current use of use of insulin insulin Colitis Colitis Disease Active Univers 6-16 ity of 00:00: [place] 00 Medical Branch Obesity Obesity Disease Active Univers (BMI (BMI 6-16 ity of 30-39.9) 30-39.9) 00:00: [place] 00 Medical Branch [id number] Chronic Problem Commo n pain Spirit syndrome [facility] Chronic Chronic Problem Common sinusitis sinusitis Spir [facility] Hypothyroi Hypothyroi Problem C ommon dism dism [facility] Acute Acute Problem Common peptic peptic Spirit ulcer with ulcer, - CHI hemorrhage site St AND with unspecifie Luke s perforatio d, with Medic al n but both Center without hemorrhage obstructio and n perforatio n [id number] Other Problem Common chronic [facility] pain 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 with diabetic [facility] nephropath Medica l y Center Status Migraine, Problem Common migrainosu unspecifie Sp coretta s d, not - CHI intractabl St e, with [facility] status Medical migrainosu Center s [id number] Pain in Problem Common right knee Spirit - [facility] [id number] Moderate Problem Comm on persistent Spirit asthma, - CHI unspecifie St d whether [facility] complicate Medica l d Center [id number] Fatty Problem Common liver [facility] disease, - CHI nonalcohol [facility] [id number] Unsteady Problem Comm on gait [facility] [id number] Chronic Problem Comm on tension-ty Spirit pe - [facility] headache, intractabl [facility] [id number] Frontal Problem Commo n sinus pain [facility] [id number] Hospital Problem Comm on discharge [facility] follow-up [facility] [id number] OAB Problem Common (overactiv Spirit e bladder) - [facility] [id number] Reactive Problem Commo n depression [facility] [id number] Primary Problem Comm on osteoarthr Spirit itis of - 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 diabetes with mellitus diabetic [facility] polyneurop Medica l ath, [place] without long-term current use of insulin [id number] Hypertensi Problem Com mon ve heart Spirit disease - [facility] without [facility] [id number] Abnormal Problem Comm on mammogram [facility] [id number] Carpal Problem Commo n tunnel Spirit syndrome - [facility] of right [facility] GERD with GERD with Problem Com mon esophagiti esophagiti Sp coretta s s - [facility] [id number] Mild Problem Common intermitte Spirit nt asthma - [facility] without complicati [facility] [id number] Non-season Problem Com mon al Spirit allergic - CHI rhinitis St due to [facility] pollen [facility] [id number] Bipolar 1 Problem Comm on disorder Spirit with - CHI moderate [facility] bhavik [facility] [id number] Osteoarthr Problem Co mmon itis of Spirit multiple - CHI joints, St unspecifie [facility] osteoarthr Center itis type Allergies, Adverse Reactions, Alerts Allergy Allergy Status Severity Reaction(s) Onset Inactive Treating Comm ents Source Name Type Date Date Clinician No Known DA Active U [facility] Allergie 3-13 [place] s 00:00: Health 00 are [place] NO KNOWN Drug Active Univers ALLERGIE Class ity of S [facility] [id number] Drug Active vaginal Common allergy swelling [facility] - [facility] Social History Social Habit Start Date Stop Date Quantity Comments Source History of Common Spirit - Tobacco Use [facility] Sex Assigned At Common Sp coretta - [facility] Exposure to 2022-05-14 2022-05-24 Not sure [facility] SARS-CoV-2 00:00:00 14:53:00 [facility] (event) [place] Alcohol intake 2022-03-27 2022-03-27 0 /d University of 00:00:00 00:00:00 [facility] Tobacco use and 2022-03-22 2022-03-22 Smokeless tobacco Un iversity of exposure 00:00:00 00:00:00 non-user [facility] Smoking Status Start Date Stop Date Source Never Smoker [facility] Medications Ordered Filled Start Stop Current Ordering Indication Dosage Frequency Signature Comments Components Source Medication Medication Date Date Medication? Clinician (SIG) Name Name pantoprazol Yes 40mg 40 mg, Univ ers e 8- Oral, ity of (PROTONIX) 14:00: DAILY, [place] EC tablet 00 First dose Medi gregg 40 mg on Sat Branch 03/25/22 at 0900, Until Discontinu ed, Routine pantoprazol 40mg 40 mg, Uni vers e 8- 08-20 Oral, ity of (PROTONIX) 14:00: 05:28 DAILY, [place] EC tablet 00 :43 First dose [...] ity o f mg tablet 22:28: at [place] [address] bedtime. Medical Branch acetaminoph Yes acetaminop Univers en-codeine 8- hen 300 ity of 300-30 mg 22:28: [...] 300 mg ity of tablet 22:28: tablet [place] [...] o f tablet 22:28: tablet,del [place] 42 ay Medical release [place] TAKE 1 TABLET BY MOUTH EVERY DAY montelukast Yes montelukas Univers 10 mg 8- t 10 mg ity of tablet 22:28: tablet [place] 42 TAKE 1 Medical TABLET BY Branch MOUTH EVERY DAY IN THE EVENING methocarbam Yes methocarba Univers oL 500 mg 8-19 mol 500 mg ity of tablet 22:28: [...] 8- 50 mg ity of 22:28: tablet [place] 42 TAKE 1 Medical TABLET BY Branch MOUTH TWICE DAILY levothyroxi Yes levothyrox Univers ne 175 mcg 8- ine 175 ity of tablet 22:28: mcg tablet [place] [address] TAKE 1 Medical TABLET BY Branch MOUTH EVERY MORNING gabapentin Yes gabapentin U nivers 300 mg 8- 300 mg ity of capsule 22:28: capsule [place] 42 TAKE 1 Medical CAPSULE BY Branch MOUTH AT BEDTIME DULoxetine Yes duloxetine U nivers 60 mg 8-19 60 mg ity of capsule 22:28: capsule,de [place] 42 [facility] Medical release [place] TAKE 1 CAPSULE BY MOUTH TWICE DAILY divalproex Yes divalproex U nivers 500 mg EC 8-19 500 mg ity of tablet 22:28: tablet,del [place] 42 [facility] TAKE 1 TABLET BY MOUTH DAILY amLODIPine Yes amlodipine U nivers 5 mg tablet 8- 5 mg ity of 22:28: tablet [place] [...] 20mg Take 20 mg Univers (ZOCOR) 20 -19 by mouth ity o f mg tablet 22:28: at [place] [address] bedtime. Medical Branch acetaminoph Yes acetaminop Univers en-codeine 8- hen 300 ity of 300-30 mg 22:28: [...] DAY SITagliptin Yes Januvia Uni vers (JANUVIA) - 100 mg ity of 100 mg 22:28: [...] methocarbam Yes methocarba Univers oL 500 mg 8-19 mol 500 mg ity of tablet 22:28: [...] levothyroxi Yes levothyrox Univers ne 175 mcg 8-19 ine 175 ity of tablet 22:28: mcg tablet [place] 42 TAKE 1 Medical TABLET BY Branch MOUTH EVERY MORNING gabapentin Yes gabapentin U nivers 300 mg 8-19 300 mg ity of capsule 22:28: capsule [place] [address] TAKE 1 Medical CAPSULE BY Branch MOUTH AT BEDTIME DULoxetine Yes duloxetine U nivers 60 mg 8-19 60 mg ity of capsule 22:28: capsule,de [place] 42 layed Medical release Branch TAKE 1 CAPSULE BY MOUTH TWICE DAILY divalproex Yes divalproex U nivers 500 mg EC 8-19 500 mg ity of tablet 22:28: tablet,del [place] 42 ayed Medical release [place] TAKE 1 TABLET BY MOUTH DAILY amLODIPine Yes amlodipine U nivers 5 mg tablet 8-19 5 mg ity of 22:28: tablet [place] 42 TAKE 1 Medical TABLET BY Branch MOUTH TWICE DAILY acetaminoph Yes 1{tbl} Take 1 Un yan en-codeine 8-19 tablet by ity of (TYLENOL-CO 22:28: mouth 3 [place] DEINE #4) 42 (three) Medical 300-60 mg times Branch tablet daily. metFORMIN 0 Yes 500mg Take 500 Uni [...] traZODone Yes trazodone Uni vers 150 mg 8 150 mg ity of tablet 22:28: tablet [...] methocarbam Yes methocarba Univers oL 500 mg - mol 500 mg ity of tablet 22:28: [...] 300 mg ity of capsule 22:28: capsule [place] [address] TAKE 1 Medical CAPSULE BY Branch MOUTH AT BEDTIME DULoxetine Yes duloxetine U nivers 60 mg 8-19 60 mg ity of capsule 22:28: capsule,de [place] 42 layed Medical release Branch TAKE 1 CAPSULE BY MOUTH TWICE DAILY divalproex Yes divalproex U nivers 500 mg EC 8-19 500 mg ity of tablet 22:28: tablet,del [place] 42 ayed Medical release [place] TAKE 1 TABLET BY MOUTH DAILY amLODIPine Yes amlodipine U nivers 5 mg tablet 8- 5 mg ity of 22:28: tablet [place] [address] TAKE 1 Medical TABLET BY Branch MOUTH [...] ity o f mg tablet 22:28: at [place] [address] bedtime. Medical Branch acetaminoph Yes acetaminop Univers en-codeine 8-19 hen 300 ity of 300-30 mg 22:28: mg-codeine [place] tablet 42 30 mg Medical tablet Branch TAKE 1 TABLET BY MOUTH TWICE DAILY NEEDED traZODone Yes trazodone Uni vers 150 mg 8 150 mg ity of tablet 22:28: tablet [...] DAY montelukast Yes montelukas Univers 10 mg - t 10 mg ity of tablet 22:28: [...] 8-19 50 mg ity of 22:28: tablet 42 TAKE 1 Medical TABLET BY Branch MOUTH TWICE DAILY levothyroxi Yes levothyrox Univers ne 175 mcg 8-19 ine 175 ity of tablet 22:28: mcg [...] 500 mg ity of tablet 22:28: tablet,del 42 ayed Medical release Branch TAKE 1 [...] ity o f mg tablet 22:28: at [place] [address] bedtime. Medical Branch acetaminoph Yes acetaminop Univers [...] mg - 15 mg ity of tablet 22:28: tablet [place] 42 TAKE 1 Medical TABLET BY Branch MOUTH EVERY DAY losartan 50 Yes losartan Un yan mg tablet 03-24 50 mg ity of 22:28: tablet [place] 42 TAKE 1 Medical TABLET BY Branch MOUTH TWICE DAILY levothyroxi Yes levothyrox Univers ne 175 mcg 8-19 ine 175 ity of tablet 22:28: mcg [...] 8- 5 mg ity of 22:28: tablet [place] [...] ity o f mg tablet 22:28: at [place] [address] bedtime. Medical Branch acetaminoph Yes acetaminop Univers [...] Yes amlodipine U nivers 5 mg tablet 8-19 5 mg ity of 22:28: tablet [place] [...] ity o f mg tablet 22:28: at [place] [address] bedtime. Medical Branch acetaminoph Yes acetaminop Univers [...] sucralfate Yes sucralfate U nivers 1 gram 8-19 1 gram ity of tablet 22:28: tablet [...] methocarbam Yes methocarba Univers oL 500 mg 8 mol 500 mg ity of tablet 22:28: [...] Yes amlodipine U nivers 5 mg tablet 8-19 5 mg ity of 22:28: tablet [place] [...] ity o f mg tablet 22:28: at [place] [address] bedtime. Medical Branch acetaminoph Yes acetaminop Univers [...] sucralfate Yes sucralfate U nivers 1 gram 8-19 1 gram ity of tablet 22:28: tablet [place] 42 TAKE 1 Medical TABLET BY Branch MOUTH BEFORE MEALS AND AT BEDTIME spironolact Yes spironolac Univers one 25 mg 8-19 tone 25 mg ity of tablet 22:28: [...] QUEtiapine Yes quetiapine U nivers 200 mg 8 200 mg ity of tablet 22:28: tablet [place] 42 TAKE 1 Medical TABLET BY Branch MOUTH TWICE DAILY pantoprazol Yes pantoprazo Univers e 40 mg EC 03-24 le 40 mg ity o f tablet 22:28: tablet,del [place] 42 ayed Medical release [place] TAKE 1 TABLET BY MOUTH EVERY DAY montelukast Yes montelukas Univers 10 mg 03-24 t 10 mg ity of tablet 22:28: tablet [place] 42 TAKE 1 Medical TABLET BY Branch MOUTH EVERY DAY IN THE EVENING methocarbam Yes methocarba Univers oL 500 mg 8 mol 500 mg ity of tablet 22:28: tablet [place] 42 TAKE 1 Medical TABLET BY Branch MOUTH THREE TIMES DAILY FOR 5 DAYS meloxicam Yes meloxicam Uni vers 15 mg - 15 mg ity of tablet 22:28: tablet [place] 42 TAKE 1 Medical TABLET BY Branch MOUTH EVERY DAY losartan 50 Yes losartan Un yan mg tablet 03-24 50 mg ity of 22:28: tablet [place] 42 TAKE 1 Medical TABLET BY Branch MOUTH TWICE DAILY levothyroxi Yes levothyrox Univers ne 175 mcg - ine 175 ity of tablet 22:28: mcg tablet [place] 42 TAKE 1 Medical TABLET BY Branch MOUTH EVERY MORNING gabapentin Yes gabapentin U nivers 300 mg 8- 300 mg ity of capsule 22:28: capsule [place] 42 TAKE 1 Medical CAPSULE BY Branch MOUTH AT BEDTIME DULoxetine Yes duloxetine U nivers 60 mg 8- 60 mg ity of capsule 22:28: capsule,[place] 42 layed Medical release [place] TAKE 1 CAPSULE BY MOUTH TWICE DAILY divalproex Yes divalproex U nivers 500 mg EC 03-24 500 mg ity of tablet 22:28: tablet,del [place] 42 ayed Medical release Branch TAKE 1 TABLET BY MOUTH DAILY amLODIPine Yes amlodipine U nivers 5 mg tablet 03-24 5 mg ity of 22:28: tablet [place] 42 TAKE 1 Medical TABLET BY Branch MOUTH TWICE DAILY acetaminoph Yes 1{tbl} Take 1 Un yan en-codeine 03-24 tablet by ity of (TYLENOL-CO 22:28: mouth 3 [place] DEINE #4) 42 (three) Medical 300-60 mg times Branch tablet daily. bisacodyL 2021- No 10mg 10 mg, Unive rs (DULCOLAX) 03-23 Oral, ity of tablet 10 21:30: 23:50 PRE-PROCED [place] mg 00 :00 URE ONCE, Medical 1 dose, Branch Starting on Analy 03/23/22 at 1630, Until Discontinu ed, Routine, Bowel [...] ed, Routine, Bowel Prep, Colonoscop y peg-electro Yes 4000mL 4,000 mL, Univers lyte soln 03-23 Oral, PRN ity o f (GOLYTELY) 18:32: - SEE [place] [id number] INSTRUCTIO Ms dical .74 -5.86 NS, Branch gram Starting solution on Analy 4,000 mL 03/23/22 at 1332, Until Discontinu ed, Routine, Bowel Prep, colonoscop y ondansetron 2021-0 Yes 4mg 4 mg, Slow Univers (ZOFRAN 8-18 IV Push, ity of (PF)) 18:32: Q6HPRN, [place] injection 4 54 Starting Medi gregg mg on Analy Branch 03/23/22 at 1332, Until Discontinu ed, Routine, Nausea and Vomiting (N/V) peg-electro 2021-0 Yes 4000mL 4,000 mL, Univers lyte soln 8-18 Oral, PRN ity o f (GOLYTELY) 18:32: - SEE [place] [id number] INSTRUCTIO Me dical .74 -5.86 NS, Branch gram Starting solution on Analy 4,000 mL 03/23/22 at 1332, Until Discontinu ed, Routine, Bowel Prep, colonoscop y ondansetron 0 Yes 4mg 4 mg, Slow Univers (ZOFRAN 8-18 IV Push, ity of (PF)) 18:32: Q6HPRN, [place] injection 4 54 Starting Medi gregg mg on Analy Branch 03/23/22 at 1332, Until Discontinu ed, Routine, Nausea and Vomiting (N/V) peg-electro 2021-0 2021- No 4000mL 4,000 mL, Univers lyte soln 8-18 08-20 Oral, PRN ity of (GOLYTELY) 18:32: 05:28 - SEE [place] [id number] 54 :43 INSTRUCTIO Me dical .74 -5.86 [...] 0028, Routine, Nausea and Vomiting (N/V) bisacodyL 2021-0 2021- No 10mg 10 mg, Unive rs (DULCOLAX) 03-23 Oral, ity of tablet 10 18:32: 18:47 PRE-PROCED [place] mg 54 :00 URE ONCE, Medical 1 dose, Branch Starting on Sun03/23/22 at 1332, Until Sun03/23/22 at 1347, Routine, Bowel Prep, Colonoscop y bisacodyL 2021- No 10mg 10 mg, Unive rs (DULCOLAX) 03-23 Oral, ity of tablet 10 18:32: 18:47 PRE-PROCED [place] mg 54 :00 URE ONCE, Medical 1 dose, Branch Starting on Sun03/23/22 at 1332, Until Sun03/23/22 at 1347, Routine, Bowel Prep, Colonoscop y bisacodyL 2021- No 10mg 10 mg, Unive rs (DULCOLAX) 03-23 Oral, ity of tablet 10 18:32: 18:47 PRE-PROCED [place] mg 54 :00 URE ONCE, Medical 1 dose, Branch Starting on Sun03/23/22 at 1332, Until Sun03/23/22 at 1347, Routine, Bowel Prep, Colonoscop y maalox-lido 2021-0 Yes 5mL 5 mL, Unive rs usha 2% 03-23 Oral, ity of viscous 1:1 16:35: TIDPRN, [place] suspension 52 Starting Medic al (COMPOUNDED on [facility] Branch ) 03/23/22 at 1135, Until Discontinu ed, Routine, stomach pain maalox-lido 2021-0 Yes 5mL 5 mL, Unive rs usha 2% 03-23 Oral, ity of viscous 1:1 16:35: TIDPRN, [place] 52 Starting Medic al (COMPOUNDED on [facility] Branch ) 03/23/22 at 1135, Until Discontinu ed, Routine, stomach pain maalox-lido 2021-0 2021- No 5mL 5 mL, Univ ers usha 2% 03-23 Oral, ity of viscous 1:1 16:35: 05:28 TIDPRN, [place] suspension 52 :43 Starting Medic al (COMPOUNDED on [facility] Branch ) 03/23/22 at 1135, Until 03/25/22 at 0028, Routine, stomach pain DULoxetine Yes 60mg 60 mg, Unive rs (CYMBALTA) 03-23 Oral, ity of capsule 60 14:00: DAILY, [place] mg 00 First dose Medical on [facility] 03/23/22 at 0900, Until Discontinu ed, Routine DULoxetine Yes 60mg 60 mg, Unive rs (CYMBALTA) 03-23 Oral, ity of capsule 60 14:00: DAILY, [place] mg 00 First dose Medical on [facility] 03/23/22 at 0900, Until Discontinu ed, Routine DULoxetine 2021- No 60mg 60 mg, Univ ers (CYMBALTA) 03-23 Oral, ity of capsule 60 14:00: 05:28 DAILY, [place] mg 00 :43 First dose Medical on [facility] 03/23/22 at 0900, Until Discontinu ed, Routine levothyroxi Yes 175ug 175 mcg, U nivers ne 03-23 Oral, ity of (SYNTHROID) 11:00: QAM-0600, [place] tablet 175 00 First dose Med ical mcg on [facility] 03/23/22 at 0600, Until Discontinu ed, Routine levothyroxi Yes 175ug 175 mcg, U nivers ne 03-23 Oral, ity of (SYNTHROID) 11:00: QAM-0600, [place] tablet 175 00 First dose Med ical mcg on [facility] 03/23/22 at 0600, Until Discontinu ed, Routine levothyroxi 2021- No 175ug 175 mcg, Univers ne 03-23 Oral, ity of (SYNTHROID) 11:00: 05:28 QAM-0600, [place] tablet 175 00 :43 First dose Med ical mcg on [facility] 03/23/22 at 0600, Until Discontinu ed, Routine HYDROcodone 2021- No 1{tbl} 1 tablet, Univers -acetaminop 03-23 Oral, ity of hen (NORCO 08:30: 07:29 ONCE, 1 [place] 5) 5-325 mg 00 :00 dose, On [facility] gregg tablet 1 Analy Branch tablet 03/23/22 at 0330, Routine HYDROcodone 2022-0 2022- No 1{tbl} 1 tablet, Univers -acetaminop - 08-18 Oral, ity of hen (NORCO 08:30: 07:29 ONCE, 1 [place] 5) 5-325 mg 00 :00 dose, On Medi gregg tablet 1 Analy Branch tablet 03/23/22 at 0330, Routine HYDROcodone 2022-0 2022- No 1{tbl} 1 tablet, Univers -acetaminop 03-23-18 Oral, ity of hen (NORCO 08:30: 07:29 ONCE, 1 [place] as 5) 5-325 mg 00 :00 dose, On Medi gregg tablet Analy Branch tablet 03/23/22 at 0330, Routine simvastatin 0 Yes 20mg 20 mg, Univ ers (ZOCOR) 8-18 Oral, QHS, ity of tablet 20 02:00: First dose [place] mg 00 on Sun [facility] 03/22/22 at [place] 2100, Until Discontinu ed, Routine gabapentin 0 Yes 300mg 300 mg, Uni vers (NEURONTIN) 8-18 Oral, QHS, it y of capsule 300 02:00: First dose [place] mg 00 on Sun [facility] 03/22/22 at [place] 2100, Until Discontinu ed, Routine simvastatin 2021-0 Yes 20mg 20 mg, Univ ers (ZOCOR) 8-18 Oral, QHS, ity of tablet 20 02:00: First dose [place] mg 00 on Sun [facility] 03/22/22 at [place] 2100, Until Discontinu ed, Routine gabapentin 2021-0 Yes 300mg 300 mg, Uni vers (NEURONTIN) 8-18 Oral, QHS, it y of capsule 300 02:00: First dose [place] mg 00 on Sun [facility] 03/22/22 at [place] 2100, Until Discontinu ed, Routine simvastatin 2021-0 2022- No 20mg 20 mg, Uni vers (ZOCOR) 8 08-20 Oral, QHS, ity o f tablet 20 02:00: 05:28 First dose [place] mg 00 :43 on Sun [facility] 03/22/22 at [place] 2100, Until Discontinu ed, Routine gabapentin 2021-0 2022- No 300mg 300 mg, Un yan (NEURONTIN) 8- 08-20 Oral, QHS, i ty of capsule 300 02:00: 05:28 First dose [place] mg 00 :43 on [facility] 03/22/22 at Branch 2100, Until Discontinu ed, Routine QUEtiapine 2021-0 Yes 200mg 200 mg, Uni vers (SEROQUEL) 03-23 Oral, BID, ity of tablet 200 01:00: First dose [place] mg 00 on [facility] 03/22/22 at Branch 2000, Until Discontinu ed, Routine QUEtiapine 0 Yes 200mg 200 mg, Uni vers (SEROQUEL) 03-23 Oral, BID, ity of tablet 200 01:00: First dose [place] mg 00 on Sun [facility] 03/22/22 at [place] 2000, Until Discontinu ed, Routine QUEtiapine 2021- No 200mg 200 mg, Un yan (SEROQUEL) 03-23 Oral, BID, it y of tablet 200 01:00: 05:28 First dose [place] mg 00 :43 on [facility] 03/22/22 at Branch 2000, Until Discontinu ed, Routine acetaminoph 0 Yes 650mg 650 mg, Un yan en 03-22 Oral, ity of (TYLENOL) 23:39: Q6HPRN, [place] tablet 650 24 Starting Medic al mg on [facility] 03/22/22 at 1839, Until Discontinu ed, Routine, Pain (scale 1-3) acetaminoph 0 Yes 650mg 650 mg, Un yan en 03-22 Oral, ity of (TYLENOL) 23:39: Q6HPRN, [place] tablet 650 24 Starting Medic al mg on [facility] 03/22/22 at 1839, Until Discontinu ed, Routine, Pain (scale 1-3) acetaminoph 0 2021- No 650mg 650 mg, U nivers en 03-22 Oral, ity of (TYLENOL) 23:39: 05:28 Q6HPRN, [place] tablet 650 24 :43 Starting Medic al mg on [facility] 03/22/22 at 1839, Until 03/25/22 at 0028, Routine, Pain (scale 1-3) traMADoL 0 Yes 50mg 50 mg, Univers (ULTRAM) 03-22 Oral, ity of tablet 50 23:12: Q6HPRN, [place] mg 10 Starting Medical on Sun [facility] 03/22/22 at 1812, Until Discontinu ed, Routine, Pain (scale 7-10) traMADoL Yes 50mg 50 mg, Univers (ULTRAM) 03-22 Oral, ity of tablet 50 23:12: Q6HPRN, [place] mg 10 Starting Medical on Sun03/22/22 at 1812, Until Discontinu ed, Routine, Pain (scale 7-10) traMADoL 0 2021- No 50mg 50 mg, Univer s (ULTRAM) 03-22 0820 Oral, ity of tablet 50 23:12: 05:28 Q6HPRN, [place] mg 10 :43 Starting Medical on [facility] 03/22/22 at 1812, Until 03/25/22 at 0028, Routine, Pain (scale 7-10) Sliding Yes Subcutaneo Univ ers Scale 8-17 us, TID ity of Insulin - 22:00: MEALS+HS, [place] Lispro 00 First dose Medical (HumaLOG) + on Sun [facility] 03/22/22 at Testing 1700, Until Discontinu ed, Routine Sliding Yes Subcutaneo Univ ers Scale 8-17 us, TID ity of Insulin - 22:00: MEALS+HS, [place] Lispro 00 First dose Medical (HumaLOG) + on Sun [facility] 03/22/22 at Testing 1700, Until Discontinu ed, Routine Sliding 0 2021- No Subcutaneo Uni vers Scale 03-22 08-20 us, TID ity of Insulin - 22:00: 05:28 MEALS+HS, [place] Lispro 00 :43 First dose Medical (HumaLOG) + on Sun [facility] 03/22/22 at Testing 1700, Until Discontinu ed, Routine glucagon Yes 1mg 1 mg, Univers (GLUCAGEN 03-22 Intramuscu ity of DIAGNOSTIC 20:58: lar, [place]N, [place] KIT) 52 Starting Medical injection 1 on Sun Branch mg 03/22/22 at 1558, Until Discontinu ed, PRINCE, Blood Glucose < or = 70 mg/dL and patient is unable to swallow or has mental changes. glucagon 2021-0 Yes 1mg 1 mg, Univers (GLUCAGEN 03-22 Intramuscu ity of DIAGNOSTIC 20:58: [place], [place] KIT) 52 Starting Medical injection 1 on Wed Branch mg 03/22/22 at 1558, Until Discontinu ed, PRINCE, Blood Glucose < or = 70 mg/dL and patient is unable to swallow or has mental changes. glucagon 2021-0 2021- No 1mg 1 mg, Univers (GLUCAGEN 03-22 Intramuscu ity of DIAGNOSTIC 20:58: 05:28 lar, PRN, [place] KIT) 52 :43 Starting Medical injection 1 on Wed Branch mg 03/22/22 at 1558, Until 03/25/22 at 0028, PRINCE, Blood Glucose < or = 70 mg/dL and patient is unable to swallow or has mental changes. dextrose 50 2021-0 Yes 25mL 25 mL, Univ ers % in water 03-22 Slow IV ity of (D50W) 20:58: Push, PRN, [place] injection 51 Starting Medica l 25 mL on Wed Branch 03/22/22 at 1558, Until Discontinu ed, PRINCE, Blood Glucose < or = 70 mg/dL and patient is unable to swallow or has mental status changes. dextrose 50 2021-0 Yes 25mL 25 mL, Univ ers % in water 03-22 Slow IV ity of (D50W) 20:58: Push, PRN, [place] injection 51 Starting Medica l 25 mL on Wed Branch 03/22/22 at 1558, Until Discontinu ed, PRINCE, Blood Glucose < or = 70 mg/dL and patient is unable to swallow or has mental status changes. dextrose 50 2021-0 2021- No 25mL 25 mL, Uni vers % in water 03-22 08 Slow IV ity o f (D50W) 20:58: 05:28 [place], PRN, [place] injection 51 :43 Starting Medica l 25 mL on Wed Branch 03/22/22 at 1558, Until 03/25/22 at 0028, PRINCE, Blood Glucose < or = 70 mg/dL and patient is unable to swallow or has mental status changes. pantoprazol 2022-0 Yes 8mg/h 8 mg/hr Un yan e 03-22 (50 ity of (PROTONIX) 18:45: mL/hr), IV [place] 80 mg in 00 Infusion, Medica l NaCl 0.9% CONTINUOUS Bran ch (NS) 500 mL , Starting infusion on Sun03/22/22 at 1345 pantoprazol 0 2022- No 8mg/h 8 mg/hr U nivers e [...] infusion on Sun03/22/22 at 1345 morpHINE (2 2021-2021- No 2mg 2 mg, Slow Univers mg/mL) [...] [place] mg 31 :18 Starting Medical on Sun03/22/22 at 1332, Until Sun03/22/22 at 1536, Routine, Pain (scale 7-10) morpHINE (2 2021-2021- No 2mg 2 mg, Slow Univers mg/mL) [...] Discontinu ed, Routine, Local anesthesia NaCl 0.9% 0 2021- No 10mL 10 mL, Unive rs (NS) 03-22 Slow IV ity of injection 18:06: 05:28 Push, PRN, [place] 10 mL 57 :43 Starting Medical on [facility] 03/22/22 at 1306, Until 03/25/22 at 0028, Routine, line maintenanc e lidocaine 2021-0 2021- No 5mL 5 mL, Univer s 1% (PF) 03-22 Subcutaneo ity o f (XYLOCAINE) 18:06: 05:28 us, PRN, [place] injection 5 57 :43 Starting Medi gregg mL on Sun [facility] 03/22/22 at 1306, Until 03/25/22 at 0028, Routine, Local anesthesia simvastatin 2021-0 Yes 20mg Take 20 mg Univers (ZOCOR) 20 8-17 by mouth ity o f mg tablet 15:57: at [place] 46 bedtime. Medical Branch QUEtiapine Yes quetiapine U nivers 200 mg 03-22 200 mg ity of tablet 15:57: tablet [place] 46 TAKE 1 Medical TABLET BY Branch MOUTH TWICE DAILY levothyroxi Yes levothyrox Univers ne 175 mcg 03-22 ine 175 ity of tablet 15:57: mcg tablet [place] 46 TAKE 1 Medical TABLET BY Branch MOUTH EVERY MORNING gabapentin Yes gabapentin U nivers 300 mg 03-22 300 mg ity of capsule 15:57: capsule [place] 46 TAKE 1 Medical CAPSULE BY Branch MOUTH AT BEDTIME DULoxetine Yes duloxetine U nivers 60 mg 03-22 60 mg ity of capsule 15:57: capsule,[place] 46 layed Medical release Branch TAKE 1 CAPSULE BY MOUTH TWICE DAILY metFORMIN Yes 500mg Take 500 Uni vers (GLUCOPHAGE 8-17 mg by ity of ) 500 mg 10:34: mouth 2 [place] tablet 54 (two) Medical times Branch daily with meals. acetaminoph Yes acetaminop Univers [...] mg ity of 100 mg 10:34: tablet [place] tablet 54 TAKE 1 Medical TABLET BY Branch MOUTH EVERY DAY FOR 16 DAYS QUEtiapine Yes quetiapine U nivers 300 mg 8- 300 mg ity of tablet 10:34: tablet [place] 54 TAKE 1 Medical TABLET BY Branch MOUTH EVERY EVENING 1 TO 1.5 HOUR PRIOR TO BEDTIME WITH 300 CALORIES SNACK pantoprazol Yes pantoprazo Univers e 40 mg EC 8 le 40 mg ity o f tablet 10:34: tablet,[facility] 54 [facility] Medical release [place] TAKE 1 TABLET BY MOUTH EVERY DAY montelukast Yes montelukas Univers 10 mg 8 t 10 mg ity of tablet 10:34: tablet [place] 54 TAKE 1 Medical TABLET BY Branch MOUTH EVERY DAY IN THE EVENING methocarbam Yes methocarba Univers oL 500 mg 8 mol 500 mg ity of tablet 10:34: tablet [place] 54 TAKE 1 Medical TABLET BY Branch MOUTH THREE TIMES DAILY FOR 5 DAYS meloxicam Yes meloxicam Uni vers 15 mg 8 15 mg ity of tablet 10:34: tablet [place] 54 TAKE 1 Medical TABLET BY Branch MOUTH EVERY DAY losartan 50 Yes losartan Un yan mg tablet 03-22 50 mg ity of 10:34: tablet [place] 54 TAKE 1 Medical TABLET BY Branch MOUTH TWICE DAILY divalproex Yes divalproex U nivers 500 mg EC 8 500 mg ity of tablet 10:34: tablet,[facility] 54 [facility] TAKE 1 TABLET BY MOUTH DAILY [...] Medical 300-60 mg times Branch tablet daily. sucralfate Yes sucralfate U nivers 1 gram 6-17 1 gram ity of tablet 17:58: tablet [...] QUEtiapine Yes quetiapine U nivers 300 mg -17 300 mg ity of tablet 17:58: tablet [place] 36 TAKE 1 Medical TABLET BY Branch MOUTH EVERY EVENING 1 TO 1.5 HOUR PRIOR TO BEDTIME WITH 300 CALORIES SNACK QUEtiapine Yes quetiapine U nivers 200 mg - 200 mg ity of tablet 17:58: tablet [place] 36 TAKE 1 Medical TABLET BY Branch MOUTH TWICE DAILY pantoprazol Yes pantoprazo Univers e 40 mg EC - le 40 mg ity o f tablet 17:58: tablet,[facility] 36 ayed Medical release [place] TAKE 1 TABLET BY MOUTH EVERY DAY [...] gabapentin Yes gabapentin U nivers 300 mg -17 300 mg ity of capsule 17:58: capsule [place] 36 TAKE 1 Medical CAPSULE BY Branch MOUTH AT BEDTIME DULoxetine Yes duloxetine U nivers 60 mg - 60 mg ity of capsule 17:58: [place] 36 layed Medical release [place] TAKE 1 CAPSULE BY MOUTH TWICE DAILY divalproex Yes divalproex U nivers 500 mg EC 17 500 mg ity of tablet 17:58: tablet,del [place] 36 ayed Medical release Branch TAKE 1 TABLET BY MOUTH DAILY amLODIPine Yes amlodipine U nivers 5 mg tablet 6-17 5 mg ity of 17:58: tablet [place] [...] ity o f mg tablet 17:58: at [place] [id number] bedtime. Medical Branch acetaminoph Yes acetaminop Univers [...] 50 Yes tramadol Un yan mg tablet 6-17 50 mg ity of 17:58: tablet [place] 36 TAKE 1 Medical TABLET BY Branch MOUTH THREE TIMES DAILY montelukast Yes montelukas Univers 10 mg 6-08 t 10 mg ity of tablet 09:37: tablet [place] 16 TAKE 1 Medical TABLET BY Branch MOUTH EVERY DAY IN THE EVENING Levothyroxi Levothyroxi No QD Levothyrox ne Sodium ne Sodium 5-04 ine Sodium 200 MCG 200 MCG 00:00: 200 MCG 00 Levothyroxi Levothyroxi No QD Levothyrox ne Sodium ne Sodium 5-04 ine Sodium 200 MCG 200 MCG 00:00: 200 MCG 00 Levothyroxi Levothyroxi No QD Levothyrox ne Sodium ne Sodium 5-04 ine Sodium 200 MCG 200 MCG 00:00: 200 MCG 00 Levothyroxi Levothyroxi No QD Levothyrox ne Sodium ne Sodium 5-04 ine Sodium 200 MCG 200 MCG 00:00: 200 MCG 00 Polyethylen Polyethylen 2021- No 1{packe QD Polyethyle e Glycol e Glycol 11-08 t_mixed ne Glycol 3350 17 GM 3350 17 GM 00:00: 00:00 _with_8 3350 17 GM 00 :00 _ounces _of_flu id} Polyethylen Polyethylen 2021- No 1{packe QD Polyethyle e Glycol e Glycol 11-08 t_mixed ne Glycol 3350 17 GM 3350 17 GM 00:00: 00:00 _with_8 3350 17 GM 00 :00 _ounces _of_flu id} Polyethylen Polyethylen 2021- No 1{packe QD Polyethyle e Glycol e Glycol 11-08 t_mixed ne Glycol 3350 17 GM 3350 17 GM 00:00: 00:00 _with_8 3350 17 GM 00 :00 _ounces _of_flu id} Polyethylen Polyethylen 2021- No 1{packe QD Polyethyle e Glycol e Glycol 11-08 t_mixed ne Glycol 3350 17 GM 3350 17 GM 00:00: 00:00 _with_8 3350 17 GM 00 :00 _ounces _of_flu id} Fluconazole Fluconazole 2021-2021- No 1{table Fluconazol 150 MG 150 MG 08-23 t} e 150 MG 00:00: 00:00 00 :00 Fluconazole Fluconazole 2021-2021- No 1{table Fluconazol 150 MG 150 MG 08-23 t} e 150 MG 00:00: 00:00 00 :00 Phenazopyri Phenazopyri 2021- No 1{table TID Phenazopyr dine HCl dine HCl 08-23 t_after idine HCl 200 MG 200 MG 00:00: 00:00 _meals} 200 MG 00 :00 Phenazopyri Phenazopyri 2021- No 1{table TID Phenazopyr dine HCl dine HCl -18 20 t_after idine HCl 200 MG 200 MG 00:00: 00:00 _meals} 200 MG 00 :00 Albuterol Albuterol No 1{puff_ 6xD Albuterol Sulfate HFA Sulfate HFA 1-11 as_need Sulfate 108 (90 108 (90 00:00: ed} HFA 108 Base) Base) 00 (90 Base) MCG/ACT MCG/ACT MCG/ACT Albuterol Albuterol No 1{puff_ 6xD Albuterol Sulfate HFA Sulfate HFA 1-11 as_need Sulfate 108 (90 108 (90 00:00: ed} HFA 108 Base) Base) 00 (90 Base) MCG/ACT MCG/ACT MCG/ACT Albuterol Albuterol No 1{puff_ 6xD Albuterol Sulfate HFA Sulfate HFA 1-11 as_need Sulfate 108 (90 108 (90 00:00: ed} HFA 108 Base) Base) 00 (90 Base) MCG/ACT MCG/ACT MCG/ACT Albuterol Albuterol No 1{puff_ 6xD Albuterol Sulfate HFA Sulfate HFA 1-11 as_need Sulfate 108 (90 108 (90 00:00: ed} HFA 108 Base) Base) 00 (90 Base) MCG/ACT MCG/ACT MCG/ACT Albuterol Albuterol 0 No 1{puff_ 6xD Albuterol Sulfate HFA Sulfate HFA 1-11 as_need Sulfate 108 (90 108 (90 00:00: ed} HFA 108 Base) Base) 00 (90 Base) MCG/ACT MCG/ACT MCG/ACT Albuterol Albuterol 0 No 1{puff_ 6xD Albuterol Sulfate HFA Sulfate HFA 1-11 as_need Sulfate 108 (90 108 (90 00:00: ed} HFA 108 Base) Base) 00 (90 Base) MCG/ACT MCG/ACT MCG/ACT Albuterol Albuterol 0 No 1{puff_ 6xD Albuterol Sulfate HFA Sulfate HFA 1-11 as_need Sulfate 108 (90 108 (90 00:00: ed} HFA 108 Base) Base) 00 (90 Base) MCG/ACT MCG/ACT MCG/ACT Albuterol Albuterol 2021-0 No 1{puff_ 6xD Albuterol Sulfate HFA Sulfate HFA 1-11 as_need Sulfate 108 (90 108 (90 00:00: ed} HFA 108 Base) Base) 00 (90 Base) MCG/ACT MCG/ACT MCG/ACT Albuterol Albuterol 2021-0 No 1{puff_ 6xD Albuterol Sulfate HFA Sulfate HFA 1-11 as_need Sulfate 108 (90 108 (90 00:00: ed} HFA 108 Base) Base) 00 (90 Base) MCG/ACT MCG/ACT MCG/ACT Albuterol Albuterol 2021-0 No 1{puff_ 6xD Albuterol Sulfate HFA Sulfate HFA 1-11 as_need Sulfate 108 (90 108 (90 00:00: ed} HFA 108 Base) Base) 00 (90 Base) MCG/ACT MCG/ACT MCG/ACT Albuterol Albuterol 2021-0 No 1{puff_ 6xD Albuterol Sulfate HFA Sulfate HFA 1-11 as_need Sulfate 108 (90 108 (90 00:00: ed} HFA 108 Base) Base) 00 (90 Base) MCG/ACT MCG/ACT MCG/ACT Albuterol Albuterol 2021-0 No 1{puff_ 6xD Albuterol Sulfate HFA Sulfate HFA 1-11 as_need Sulfate 108 (90 108 (90 00:00: ed} HFA 108 Base) Base) 00 (90 Base) MCG/ACT MCG/ACT MCG/ACT Albuterol Albuterol 2021-0 No 1{puff_ 6xD Albuterol Sulfate HFA Sulfate HFA 1-11 as_need Sulfate 108 (90 108 (90 00:00: ed} HFA 108 Base) Base) 00 (90 Base) MCG/ACT MCG/ACT MCG/ACT Albuterol Albuterol 2021-0 No 1{puff_ 6xD Albuterol Sulfate HFA Sulfate HFA 1-11 as_need Sulfate 108 (90 108 (90 00:00: ed} HFA 108 Base) Base) 00 (90 Base) MCG/ACT MCG/ACT MCG/ACT Albuterol Albuterol 2022-0 No 1{puff_ 6xD Albuterol Sulfate HFA Sulfate HFA 1-11 as_need Sulfate 108 (90 108 (90 00:00: ed} HFA 108 Base) Base) 00 (90 Base) MCG/ACT MCG/ACT MCG/ACT Albuterol Albuterol 0 No 1{puff_ 6xD Albuterol Sulfate HFA Sulfate HFA 1-11 as_need Sulfate 108 (90 108 (90 00:00: ed} HFA 108 Base) Base) 00 (90 Base) MCG/ACT MCG/ACT MCG/ACT Albuterol Albuterol 0 No 1{puff_ 6xD Albuterol Sulfate HFA Sulfate HFA 1-11 as_need Sulfate 108 (90 108 (90 00:00: ed} HFA 108 Base) Base) 00 (90 Base) MCG/ACT MCG/ACT MCG/ACT Albuterol Albuterol 0 No 1{puff_ 6xD Albuterol Sulfate HFA Sulfate HFA 1-11 as_need Sulfate 108 (90 108 (90 00:00: ed} HFA 108 Base) Base) 00 (90 Base) MCG/ACT MCG/ACT MCG/ACT Albuterol Albuterol 0 No 1{puff_ 6xD Albuterol Sulfate HFA Sulfate HFA 1-11 as_need Sulfate 108 (90 108 (90 00:00: ed} HFA 108 Base) Base) 00 (90 Base) MCG/ACT MCG/ACT MCG/ACT Albuterol Albuterol 0 No 1{puff_ 6xD Albuterol Sulfate HFA Sulfate HFA 1-11 as_need Sulfate 108 (90 108 (90 00:00: ed} HFA 108 Base) Base) 00 (90 Base) MCG/ACT MCG/ACT MCG/ACT Amoxicillin Amoxicillin 2021- No 1{capsu TID Amoxicilli 500 mg 500 mg 08-16 le} n 500 mg 00:00: 00:00 00 :00 Amoxicillin Amoxicillin 2021-2021- No 1{capsu TID Amoxicilli 500 mg 500 mg 08-16 le} n 500 mg 00:00: 00:00 00 :00 lancets lancets 2020- No QD lancets 1-17 00:00: 00 lancets lancets 2020- No QD lancets 1-17 00:00: 00 lancets lancets 2020- No QD lancets 1-17 00:00: 00 lancets lancets 2020-1 No QD lancets 1-17 00:00: 00 lancets lancets 2020-1 No QD lancets 1-17 00:00: 00 lancets lancets 2020- No QD lancets 1-17 00:00: 00 lancets lancets 2020- No QD lancets 1-17 00:00: 00 lancets lancets 2020- No QD lancets 1-17 00:00: 00 lancets lancets 2020- No QD lancets 1-17 00:00: 00 lancets lancets 2020- No QD lancets 1-17 00:00: 00 lancets lancets 2020- No QD lancets 1-17 00:00: 00 lancets lancets 2020- No QD lancets 1-17 00:00: 00 lancets lancets 2020- No QD lancets 1-17 00:00: 00 lancets lancets 2020- No QD lancets 1-17 00:00: 00 lancets lancets 2020- No QD lancets 1-17 00:00: 00 lancets lancets 2020- No QD lancets 1-17 00:00: 00 lancets lancets 2020- No QD lancets 1-17 00:00: 00 Strips Strips 2020-2021- No QD Strips 1-17 05-16 00:00: 00:00 00 :00 Strips Strips 2020-2021- No QD Strips 1-17 05-16 00:00: 00:00 00 :00 Strips Strips 2020-2021- No QD Strips 1-17 05-16 00:00: 00:00 00 :00 Strips Strips 2020-2021- No QD Strips 1-17 05-16 00:00: 00:00 00 :00 Strips Strips 2020-2021- No QD Strips 1-17 05-16 00:00: 00:00 00 :00 Strips Strips 2020-2021- No QD Strips 1-17 05-16 00:00: 00:00 00 :00 Strips Strips 2020-1 2022- No QD Strips 1-17 05-16 00:00: 00:00 00 :00 Strips Strips 2020- 2022- No QD Strips 1-17 05-16 00:00: 00:00 00 :00 Strips Strips 2020- 2022- No QD Strips 1-17 05-16 00:00: 00:00 00 :00 Strips Strips 2020- 2022- No QD Strips 1-17 05-16 00:00: 00:00 00 :00 Strips Strips 2020- 2022- No QD Strips 1-17 05-16 00:00: 00:00 00 :00 Strips Strips 2020- 2022- No QD Strips 1-17 05-16 00:00: 00:00 00 :00 Strips Strips 2020-2- No QD Strips 1-17 05-16 00:00: 00:00 00 :00 Strips Strips 2020-2- No QD Strips 1-17 05-16 00:00: 00:00 00 :00 Strips Strips 2020-2- No QD Strips 1-17 05-16 00:00: 00:00 00 :00 Strips Strips 2020-2- No QD Strips 1-17 05-16 00:00: 00:00 00 :00 Strips Strips 2020-2- No QD Strips 17 05-16 00:00: 00:00 00 :00 Glucometer Glucometer 2020-2021- No Glucometer n/s n/s -17 -15 n/s 00:00: 00:00 00 :00 Glucometer Glucometer 2020-2021- No Glucometer n/s n/s -17 -15 n/s 00:00: 00:00 00 :00 Glucometer Glucometer 2020-2- No Glucometer n/s n/s -22 09-15 n/s 00:00: 00:00 00 :00 Glucometer Glucometer 2020-2021- No Glucometer n/s n/s 1-17 -15 n/s 00:00: 00:00 00 :00 Glucometer Glucometer 2020-2021- No Glucometer n/s n/s -22 09-15 n/s 00:00: 00:00 00 :00 Glucometer Glucometer 2020-2021- No Glucometer n/s n/s 08-22-15 n/s 00:00: 00:00 00 :00 Glucometer Glucometer 2020-2021- No Glucometer n/s n/s 1-17 -15 n/s 00:00: 00:00 00 :00 Glucometer Glucometer 2020-2021- No Glucometer n/s n/s -17 -15 n/s 00:00: 00:00 00 :00 Glucometer Glucometer 2020-2021- No Glucometer n/s n/s 1-17 -15 n/s 00:00: 00:00 00 :00 Glucometer Glucometer 2020-2021- No Glucometer n/s n/s -17 -15 n/s 00:00: 00:00 00 :00 Glucometer Glucometer 2020-08- No Glucometer n/s n/s -17 -15 n/s 00:00: 00:00 00 :00 Glucometer Glucometer 2020-08- No Glucometer n/s n/s 1-17 -15 n/s 00:00: 00:00 00 :00 Glucometer Glucometer 2020-08- No Glucometer n/s n/s 17 -15 n/s 00:00: 00:00 00 :00 Montelukast Montelukast 0 No 1{table Montelukas Sodium 10 Sodium 10 9-15 t} t Sodium MG MG 00:00: 10 MG 00 dicyclomine Yes [id number] 10mg Take 1 Univers 10 mg 6-25 capsule by ity of capsule 00:00: mouth 3 00 (three) Medical times Branch daily as needed for Abdominal pain. loperamide Yes [id number] 2mg Take 1 U nivers 2 mg 6-25 capsule by ity of capsule 00:00: mouth [place] 00 every 4 Medical (four) Branch hours as needed for Diarrhea. dicyclomine Yes [id number] 10mg Take 1 Univers 10 mg 6-25 capsule by ity of capsule 00:00: mouth 3 00 (three) Medical times Branch daily as needed for Abdominal pain. loperamide 2020-0 Yes [id number] 2mg Take 1 U nivers 2 mg 6-25 capsule by ity of capsule 00:00: mouth [place] 00 every 4 Medical (four) Branch hours as needed for Diarrhea. dicyclomine 2020-0 Yes [id number] 10mg Take 1 [facility] 10 mg 6-25 capsule by ity of capsule 00:00: mouth 3 (three) Medical times Branch daily as needed for Abdominal pain. loperamide 2020-0 Yes [id number] 2mg Take 1 U nivers 2 mg 6-25 capsule by ity of capsule 00:00: mouth [place] 00 every 4 Medical (four) Branch hours as needed for Diarrhea. dicyclomine 2020-0 Yes [id number] 10mg Take 1 Univers 10 mg 6-25 capsule by ity of capsule 00:00: mouth (three) Medical times Branch daily as needed for Abdominal pain. loperamide 2020-0 Yes [id number] 2mg Take 1 U nivers 2 mg 6-25 capsule by ity of capsule 00:00: mouth [place] 00 every 4 Medical (four) Branch hours as needed for Diarrhea. dicyclomine 2020-0 Yes [id number] 10mg Take 1 Univers 10 mg 6-25 capsule by ity of capsule 00:00: mouth (three) Medical times Branch daily as needed for Abdominal pain. loperamide 2020-0 Yes [id number] 2mg Take 1 U nivers 2 mg 6-25 capsule by ity of capsule 00:00: mouth [place] 00 every 4 Medical (four) Branch hours as needed for Diarrhea. dicyclomine 2020-0 Yes [id number] 10mg Take 1 Univers 10 mg 6-25 capsule by ity of capsule 00:00: mouth 3 (three) Medical times Branch daily as needed for Abdominal pain. loperamide 2020-0 Yes [id number] 2mg Take 1 U nivers 2 mg 6-25 capsule by ity of capsule 00:00: mouth [place] 00 every 4 Medical (four) Branch hours as needed for Diarrhea. dicyclomine 2020-0 Yes [id number] 10mg Take 1 Univers 10 mg 6-25 capsule by ity of capsule 00:00: mouth 3 (three) Medical times Branch daily as needed for Abdominal pain. loperamide 2021-0 Yes [id number] 2mg Take 1 U nivers 2 mg 6-25 capsule by ity of capsule 00:00: mouth [place] 00 every 4 Medical (four) Branch hours as needed for Diarrhea. dicyclomine 2020-0 Yes [id number] 10mg Take 1 Univers 10 mg 6-25 capsule by ity of capsule 00:00: mouth 3 00 (three) Medical times Branch daily as needed for Abdominal pain. loperamide 2020-0 Yes [id number] 2mg Take 1 U nivers 2 mg 6-25 capsule by ity of capsule 00:00: mouth [place] 00 every 4 Medical (four) Branch hours as needed for Diarrhea. dicyclomine 0 Yes [id number] 10mg Take 1 Univers 10 mg 6-25 capsule by ity of capsule 00:00: mouth 3 (three) Medical times Branch daily as needed for Abdominal pain. loperamide 0 Yes [id number] 2mg Take 1 U nivers 2 mg 6-25 capsule by ity of capsule 00:00: mouth every 4 Medical (four) Branch hours as needed for Diarrhea. dicyclomine 0 Yes [id number] 10mg Take 1 Univers 10 mg 6-25 capsule by ity of capsule 00:00: mouth (three) Medical times Branch daily as needed for Abdominal pain. loperamide 0 Yes [id number] 2mg Take 1 U nivers 2 mg 6-25 capsule by ity of capsule 00:00: mouth 00 every 4 Medical (four) Branch hours as needed for Diarrhea. Toradol Toradol 0 No 60mg Common (Ketorolac) (Ketorolac) 3-17 S pirit 00:00: - [facility] Toradol Toradol 0 No 60mg Common (Ketorolac) (Ketorolac) 3-17 S pirit 00:00: - [facility] Toradol Toradol 0 No 60mg Common (Ketorolac) (Ketorolac) 3-17 S pirit 00:00: - [facility] Toradol Toradol 0 No 60mg Common (Ketorolac) (Ketorolac) 3-17 S pirit 00:00: - [facility] Desloratadi Desloratadi 2021-0 No 1{table QD Desloratad ne 5 MG ne 5 MG 3-17 t} ine 5 MG 00:00: 00 Desloratadi Desloratadi 2021-0 No 1{table QD Desloratad ne 5 MG ne 5 MG 3-17 t} ine 5 MG 00:00: 00 Desloratadi Desloratadi 2021-0 No 1{table QD Desloratad ne 5 MG ne 5 MG 3-17 t} ine 5 MG 00:00: 00 Desloratadi Desloratadi 2021-0 No 1{table QD Desloratad ne 5 MG ne 5 MG 3-17 t} ine 5 MG 00:00: 00 Desloratadi Desloratadi 2021-0 No 1{table QD Desloratad ne 5 MG ne 5 MG 3-17 t} ine 5 MG 00:00: 00 Desloratadi Desloratadi 2021-0 No 1{table QD Desloratad ne 5 MG ne 5 MG 3-17 t} ine 5 MG 00:00: 00 Desloratadi Desloratadi 2021-0 No 1{table QD Desloratad ne 5 MG ne 5 MG 3-17 t} ine 5 MG 00:00: 00 Desloratadi Desloratadi 2021-0 No 1{table QD Desloratad ne 5 MG ne 5 MG 3-17 t} ine 5 MG 00:00: 00 Desloratadi Desloratadi 2021-0 No 1{table QD Desloratad ne 5 MG ne 5 MG 3-17 t} ine 5 MG 00:00: 00 Desloratadi Desloratadi 2021-0 No 1{table QD Desloratad ne 5 MG ne 5 MG 3-17 t} ine 5 MG 00:00: 00 Desloratadi Desloratadi 2021-0 No 1{table QD Desloratad ne 5 MG ne 5 MG 3-17 t} ine 5 MG 00:00: 00 Desloratadi Desloratadi 2021-0 No 1{table QD Desloratad ne 5 MG ne 5 MG 3-17 t} ine 5 MG 00:00: 00 Desloratadi Desloratadi 2021-0 No 1{table QD Desloratad ne 5 MG ne 5 MG 3-17 t} ine 5 MG 00:00: 00 Desloratadi Desloratadi 2020-0 No 1{table QD Desloratad ne 5 MG ne 5 MG 3-17 t} ine 5 MG 00:00: 00 Desloratadi Desloratadi 2020-0 No 1{table QD Desloratad ne 5 MG ne 5 MG 3-17 t} ine 5 MG 00:00: 00 Desloratadi Desloratadi 2020-0 No 1{table QD Desloratad ne 5 MG ne 5 MG 3-17 t} ine 5 MG 00:00: 00 Toradol Toradol 2020-0 No 60mg Common (Ketorolac) (Ketorolac) 3-17 S pirit 00:00: - [facility] Desloratadi Desloratadi 2020-0 No 1{table QD Desloratad ne 5 MG ne 5 MG 3-17 t} ine 5 MG 00:00: 00 Toradol Toradol 2020-0 No 60mg Common (Ketorolac) (Ketorolac) 3-17 S pirit 00:00: - [facility] Desloratadi Desloratadi 2020-0 No 1{table QD Desloratad ne 5 MG ne 5 MG 3-17 t} ine 5 MG 00:00: 00 Toradol Toradol 2020-0 No 60mg Common (Ketorolac) (Ketorolac) 3-17 S pirit 00:00: - [facility] Desloratadi Desloratadi 2020-0 No 1{table QD Desloratad ne 5 MG ne 5 MG 3-17 t} ine 5 MG 00:00: 00 Toradol Toradol 2020-0 No 60mg Common (Ketorolac) (Ketorolac) 3-17 S pirit 00:00: - [facility] Toradol Toradol 2020-0 No 60mg Common (Ketorolac) (Ketorolac) 3-17 S pirit 00:00: - [facility] Toradol Toradol 2020-0 No 60mg Common (Ketorolac) (Ketorolac) 3-17 S pirit 00:00: - [facility] Toradol Toradol 2020-0 No 60mg Common (Ketorolac) (Ketorolac) 3-17 S pirit 00:00: - [facility] Toradol Toradol 2020-0 No 60mg Common (Ketorolac) (Ketorolac) 3-17 S pirit 00:00: - [facility] Toradol Toradol 2020-0 No 60mg Common (Ketorolac) (Ketorolac) 3-17 S pirit 00:00: - [facility] Toradol Toradol 2020-0 No 60mg Common (Ketorolac) (Ketorolac) 3-17 S pirit 00:00: - [facility] tiZANidine 2020-0 Yes TAKE 1 Unive rs [...] 00 TWICE Medical DAILY Branch DIRECTED tiZANidine 1-0 Yes TAKE 1 Unive rs 2 mg tablet 1-07 TABLET BY ity of 00:00: MOUTH [place] 00 TWICE Medical DAILY Branch DIRECTED tiZANidine 1-0 Yes TAKE 1 Unive rs 2 mg tablet 1-07 TABLET BY [facility]y of 00:00: MOUTH [place] 00 TWICE Medical DAILY Branch DIRECTED tiZANidine 1-0 Yes TAKE 1 Unive rs 2 mg tablet 1-07 TABLET BY ity of 00:00: MOUTH [place] 00 TWICE Medical DAILY Branch DIRECTED tiZANidine 1-0 Yes TAKE 1 Unive rs 2 mg tablet 1-07 TABLET BY ity of 00:00: MOUTH [place] 00 TWICE Medical DAILY Branch DIRECTED tiZANidine 1-0 Yes TAKE 1 Unive rs 2 mg tablet 1-07 TABLET BY ity of 00:00: MOUTH [place] 00 TWICE Medical DAILY Branch DIRECTED tiZANidine 1-0 Yes TAKE 1 Unive rs 2 mg tablet 1-07 TABLET BY ity of 00:00: MOUTH [place] 00 TWICE Medical DAILY Branch DIRECTED tiZANidine Yes TAKE 1 Unive rs 2 mg tablet 1-07 TABLET BY ity of 00:00: MOUTH TWICE Medical DAILY Branch DIRECTED Levothyroxi Levothyroxi Yes Terry 1 tablet Common ne Sodium ne Sodium 4-07 [place] in [facility] coretta 00:00: morning on - [facility] Ondansetron Ondansetron Yes Terry TK 1 T PO Common HCl HCl [place] QD FOR [address] [facility] Duloxetine Duloxetine Yes Terry not Co mmon HCl HCl [place] defined [facility] Breo Breo Yes Terry 1 puff Common Ellipta Ellipta [place] [facility] Topiramate Topiramate Yes Terry 1 tablet Common [place] [facility] Albuterol Albuterol Yes Terry 3 ml as C ommon Sulfate Sulfate [place] needed [facility] Trazodone Trazodone Yes Terry TK 1 TO 2 Common HCl HCl [place] TS PO HS Spirit PRF - [facility] INSOMNIA [facility] Tizanidine Tizanidine Yes Terry 1 tablet Common HCl HCl [place] as needed [facility] Norvasc Norvasc Yes Terry 1 tablet Comm on [place] [facility] Estradiol Estradiol Yes Terry as Comm on [place] directed [facility] Sucralfate Sucralfate Yes Terry 1 tablet Common [place] on an Spirit empty - [facility] stomach [facility] Nystatin Nystatin Yes Terry 1 Common [place] applicatio [facility] n [facility] Albuterol Albuterol Yes Terry INL 2 PFS Common Sulfate HFA Sulfate HFA [place] PO Q [address] [facility] Meloxicam Meloxicam Yes Terry TK 1 T PO Common [place] QD [facility] Loratadine Loratadine Yes Terry TK 1 T PO Common [place] QD FOR Spirit ALLERGIES [facility] Simvastatin Simvastatin Yes Terry 1 tablet Common [place] [facility] evening [facility] Pantoprazol Pantoprazol Yes Terry 1 tablet Common e Sodium e Sodium [place] [facility] Lorazepam Lorazepam Yes Terry 1 tablet Common [place] at bedtime [facility] as needed [facility] Metformin Metformin Yes Terry TAKE 1 Co mmon HCl HCl [place] TABLET BY Spirit MOUTH - [facility] TWICE [facility] DAILY WITH [facility] Divalproex Divalproex Yes Terry 1 tablet Common Sodium ER Sodium ER [place] Spir [facility] Quetiapine Quetiapine Yes Terry 1 tablet Common Fumarate Fumarate [place] at bedtime [facility] Tramadol Tramadol Yes Terry 1 tablet Co mmon HCl HCl [place] as needed [facility] Botox Botox Yes Terry as Common [place] directed [facility] Januvia Januvia Yes Terry 1 tablet Comm on [place] [facility] Divalproex Divalproex Yes Terry 3 tabs Common Sodium ER Sodium ER [place] Spir [facility] Simvastatin Simvastatin Yes Terry TAKE 1 Common [place] TABLET BY Spirit MOUTH - [facility] EVERY DAY [facility] Losartan Losartan Yes Terry 1 tablet Co mmon Potassium Potassium [place] Spir [facility] Simvastatin Simvastatin No 1{table QD Simvastati 20 20 t_in_ n 20 e_eveni ng} QUEtiapine QUEtiapine No 1{table QD QUEtiapine Fumarate Fumarate t_at_be Fumarate 300 MG 300 MG dtime} 300 MG Sucralfate Sucralfate No 10{ml_o BID Sucralfate 1 GM/10ML 1 GM/10ML n_an_em 1 GM/10ML [facility]} Montelukast Montelukast No 1{table QD Montelukas Sodium 10 Sodium 10 t} t Sodium MG MG 10 MG Omeprazole Omeprazole No QD Omeprazole 40 MG 40 MG 40 MG traZODone traZODone No traZODone HCl 150 MG HCl 150 MG HCl 150 MG tiZANidine tiZANidine No 1{table BID tiZANidine HCl 2 MG HCl 2 MG t_as_ne HCl 2 MG eded} Melatonin Melatonin No 2{table Melatonin 10 MG 10 MG ts} 10 MG Simvastatin Simvastatin No Simvastati 20 MG 20 MG n 20 MG Fluticasone Fluticasone No 1{spray BID Fluticason Propionate Propionate _in_eac e 93 MCG/ACT 93 MCG/ACT h_nostr Propionate il} 93 MCG/ACT Losartan Losartan No Losartan Potassium Potassium Potassium 50 MG 50 MG 50 MG amLODIPine amLODIPine No amLODIPine Besylate 5 Besylate 5 Besylate 5 MG MG MG QUEtiapine QUEtiapine No 1{table QD QUEtiapine Fumarate Fumarate t_at_be Fumarate 300 MG 300 MG dtime} 300 MG Levothyroxi Levothyroxi No QD Levothyrox ne Sodium ne Sodium ine Sodium 100 MCG 100 MCG 100 MCG traZODone traZODone No traZODone HCl 150 MG HCl 150 MG HCl 150 MG tiZANidine tiZANidine No 1{table BID tiZANidine HCl 2 MG HCl 2 MG t_as_ne HCl 2 MG eded} Spironolact Spironolact No Spironolac one 25 MG one 25 MG tone 25 MG Omeprazole Omeprazole No QD Omeprazole 40 MG 40 MG 40 MG Gabapentin Gabapentin No 1{capsu Gabapentin 300 MG 300 MG le} 300 MG Acetaminoph Acetaminoph No 1{table QID Acetaminop en-Codeine en-Codeine t_as_ne hen-Codein #4 300-60 #4 300-60 eded} e #4 MG MG 300-60 MG DULoxetine DULoxetine No 1{capsu BID DULoxetine HCl 60 MG HCl 60 MG le} HCl 60 MG Levothyroxi Levothyroxi No QD Levothyrox ne Sodium ne Sodium ine Sodium 200 MCG 200 MCG 200 MCG Simvastatin Simvastatin No 1{table QD Simvastati 20 20 t_in_th n 20 e_eveni ng} Acetaminoph Acetaminoph No QID Acetaminop en 500 MG en 500 MG hen 500 MG Montelukast Montelukast No Montelukas Sodium 10 Sodium 10 t Sodium MG MG 10 MG Montelukast Montelukast No Montelukas Sodium 10 Sodium 10 t Sodium MG MG 10 MG Melatonin Melatonin No 2{table Melatonin 10 MG 10 MG ts} 10 MG Spironolact Spironolact No Spironolac one 25 MG one 25 MG tone 25 MG amLODIPine amLODIPine No amLODIPine Besylate 5 Besylate 5 Besylate 5 MG MG MG QUEtiapine QUEtiapine No 1{table QD QUEtiapine Fumarate Fumarate t_at_be Fumarate 300 MG 300 MG dtime} 300 MG Omeprazole Omeprazole No QD Omeprazole 40 MG 40 MG 40 MG Gabapentin Gabapentin No 1{capsu Gabapentin 300 MG 300 MG le} 300 MG tiZANidine tiZANidine No 1{table BID tiZANidine HCl 2 MG HCl 2 MG t_as_ne HCl 2 MG eded} DULoxetine DULoxetine No 1{capsu BID DULoxetine HCl 60 MG HCl 60 MG le} HCl 60 MG hydrOXYzine hydrOXYzine No 1{table BID hydrOXYzin HCl 25 MG HCl 25 MG t_at_be e HCl 25 dtime_a MG s_neede d} traMADol traMADol No 1{table TID traMADol HCl 50 MG HCl 50 MG t_as_ne HCl 50 MG eded} Simvastatin Simvastatin No Simvastati 20 MG 20 MG n 20 MG Losartan Losartan No Losartan Potassium Potassium Potassium 50 MG 50 MG 50 MG Acetaminoph Acetaminoph No QID Acetaminop en 500 MG en 500 MG hen 500 MG traZODone traZODone No traZODone HCl 150 MG HCl 150 MG HCl 150 MG Levothyroxi Levothyroxi No QD Levothyrox ne Sodium ne Sodium ine Sodium 200 MCG 200 MCG 200 MCG Fluticasone Fluticasone No 1{spray BID Fluticason Propionate Propionate _in_eac e 93 MCG/ACT 93 MCG/ACT h_nostr Propionate il} 93 MCG/ACT Simvastatin Simvastatin No 1{table QD Simvastati 20 20 t_in_th n 20 e_eveni ng} Montelukast Montelukast No Montelukas Sodium 10 Sodium 10 t Sodium MG MG 10 MG Melatonin Melatonin No 2{table Melatonin 10 MG 10 MG ts} 10 MG Spironolact Spironolact No Spironolac one 25 MG one 25 MG tone 25 MG amLODIPine amLODIPine No amLODIPine Besylate 5 Besylate 5 Besylate 5 MG MG MG QUEtiapine QUEtiapine No 1{table QD QUEtiapine Fumarate Fumarate t_at_be Fumarate 300 MG 300 MG dtime} 300 MG Omeprazole Omeprazole No QD Omeprazole 40 MG 40 MG 40 MG Gabapentin Gabapentin No 1{capsu Gabapentin 300 MG 300 MG le} 300 MG tiZANidine tiZANidine No 1{table BID tiZANidine HCl 2 MG HCl 2 MG t_as_ne HCl 2 MG eded} DULoxetine DULoxetine No 1{capsu BID DULoxetine HCl 60 MG HCl 60 MG le} HCl 60 MG hydrOXYzine hydrOXYzine No 1{table BID hydrOXYzin HCl 25 MG HCl 25 MG t_at_be e HCl 25 dtime_a MG s_neede d} traMADol traMADol No 1{table TID traMADol HCl 50 MG HCl 50 MG t_as_ne HCl 50 MG eded} Simvastatin Simvastatin No Simvastati 20 MG 20 MG n 20 MG Losartan Losartan No Losartan Potassium Potassium Potassium 50 MG 50 MG 50 MG Acetaminoph Acetaminoph No QID Acetaminop en 500 MG en 500 MG hen 500 MG traZODone traZODone No traZODone HCl 150 MG HCl 150 MG HCl 150 MG Levothyroxi Levothyroxi No QD Levothyrox ne Sodium ne Sodium ine Sodium 200 MCG 200 MCG 200 MCG Fluticasone Fluticasone No 1{spray BID Fluticason Propionate Propionate _in_eac e 93 MCG/ACT 93 MCG/ACT h_nostr Propionate il} 93 MCG/ACT Simvastatin Simvastatin No 1{table QD Simvastati 20 20 t_in_th n 20 e_eveni ng} Levothyroxi Levothyroxi No QD Levothyrox ne Sodium ne Sodium ine Sodium 175 MCG 175 MCG 175 MCG metFORMIN metFORMIN No 1{table BID metFORMIN HCl 500 MG HCl 500 MG t_with_ HCl 500 MG a_meal} Spironolact Spironolact No Spironolac one 25 MG one 25 MG tone 25 MG traZODone traZODone No traZODone HCl 150 MG HCl 150 MG HCl 150 MG Losartan Losartan No Losartan Potassium Potassium Potassium 50 MG 50 MG 50 MG tiZANidine tiZANidine No 1{table BID tiZANidine HCl 2 MG HCl 2 MG t_as_ne HCl 2 MG eded} Folic Acid Folic Acid No Folic Acid 1 MG 1 MG 1 MG DULoxetine DULoxetine No BID DULoxetine HCl 20 MG HCl 20 MG HCl 20 MG Pantoprazol Pantoprazol No 1{table QD Pantoprazo e Sodium 40 e Sodium 40 t} le Sodium MG MG 40 MG Albuterol Albuterol No 3{ml_as TID Albuterol Sulfate Sulfate _needed Sulfate (2.5 (2.5 } (2.5 MG/3ML) MG/3ML) MG/3ML) 0.083% 0.083% 0.083% Breo Breo No 1{puff} QD Breo Ellipta Ellipta Ellipta 200-25 200-25 200-25 MCG/INH MCG/INH MCG/INH Divalproex Divalproex No 1{table Divalproex Sodium ER Sodium ER t} Sodium ER 500 MG 500 MG 500 MG amLODIPine amLODIPine No amLODIPine Besylate 5 Besylate 5 Besylate 5 MG MG MG Januvia 100 Januvia 100 No 1{table QD Januvia MG MG t} 100 MG Januvia 25 Januvia 25 No 1{table QD Januvia 25 MG MG t} MG Levothyroxi Levothyroxi No QD Levothyrox ne Sodium ne Sodium ine Sodium 25 MCG 25 MCG 25 MCG Gabapentin Gabapentin No 1{capsu QID Gabapentin 300 MG 300 MG le} 300 MG Nystatin Nystatin No 1{appli Nystatin [id number] cation} 299325 UNIT/GM UNIT/GM UNIT/GM LORazepam LORazepam No 1{table QD LORazepam 0.5 MG 0.5 MG t_at_be 0.5 MG dtime_a s_neede d} Sucralfate Sucralfate No Sucralfate 1 GM 1 GM 1 GM Simvastatin Simvastatin No 1{table QD Simvastati 20 20 t_in_th n 20 e_eveni ng} Meloxicam Meloxicam No Meloxicam 15 MG 15 MG 15 MG Simvastatin Simvastatin No 1{table QD Simvastati 20 20 t_in_th n 20 e_eveni ng} Meloxicam Meloxicam No Meloxicam 15 MG 15 MG 15 MG Spironolact Spironolact No QD Spironolac one 25 MG one 25 MG tone 25 MG Losartan Losartan No Losartan Potassium Potassium Potassium 50 MG 50 MG 50 MG DULoxetine DULoxetine No BID DULoxetine HCl 20 MG HCl 20 MG HCl 20 MG Levothyroxi Levothyroxi No QD Levothyrox ne Sodium ne Sodium ine Sodium 175 MCG 175 MCG 175 MCG metFORMIN metFORMIN No 1{table BID metFORMIN HCl 500 MG HCl 500 MG t_with_ HCl 500 MG a_meal} tiZANidine tiZANidine No 1{table BID tiZANidine HCl 2 MG HCl 2 MG t_as_ne HCl 2 MG eded} traZODone traZODone No traZODone HCl 150 MG HCl 150 MG HCl 150 MG Januvia 25 Januvia 25 No 1{table QD Januvia 25 MG MG t} MG Pantoprazol Pantoprazol No 1{table QD Pantoprazo e Sodium 40 e Sodium 40 t} le Sodium MG MG 40 MG Gabapentin Gabapentin No 1{capsu QID Gabapentin 300 MG 300 MG le} 300 MG amLODIPine amLODIPine No amLODIPine Besylate 5 Besylate 5 Besylate 5 MG MG MG Meloxicam Meloxicam No Meloxicam 15 MG 15 MG 15 MG Spironolact Spironolact No QD Spironolac one 25 MG one 25 MG tone 25 MG Pantoprazol Pantoprazol No 1{table QD Pantoprazo e Sodium 40 e Sodium 40 t} le Sodium MG MG 40 MG traZODone traZODone No traZODone HCl 150 MG HCl 150 MG HCl 150 MG DULoxetine DULoxetine No BID DULoxetine HCl 20 MG HCl 20 MG HCl 20 MG Levothyroxi Levothyroxi No QD Levothyrox ne Sodium ne Sodium ine Sodium 175 MCG 175 MCG 175 MCG amLODIPine amLODIPine No amLODIPine Besylate 5 Besylate 5 Besylate 5 MG MG MG Gabapentin Gabapentin No 1{capsu QID Gabapentin 300 MG 300 MG le} 300 MG tiZANidine tiZANidine No 1{table BID tiZANidine HCl 2 MG HCl 2 MG t_as_ne HCl 2 MG eded} Losartan Losartan No Losartan Potassium Potassium Potassium 50 MG 50 MG 50 MG Januvia 25 Januvia 25 No 1{table QD Januvia 25 MG MG t} MG Simvastatin Simvastatin No 1{table QD Simvastati 20 20 t_in_th n 20 e_eveni ng} metFORMIN metFORMIN No 1{table BID metFORMIN HCl 500 MG HCl 500 MG t_with_ HCl 500 MG a_meal} Meloxicam Meloxicam No Meloxicam 15 MG 15 MG 15 MG Januvia 25 Januvia 25 No 1{table QD Januvia 25 MG MG t} MG traZODone traZODone No traZODone HCl 150 MG HCl 150 MG HCl 150 MG Gabapentin Gabapentin No 1{capsu QID Gabapentin 300 MG 300 MG le} 300 MG Simvastatin Simvastatin No 1{table QD Simvastati 20 20 t_in_th n 20 e_eveni ng} Pantoprazol Pantoprazol No 1{table QD Pantoprazo e Sodium 40 e Sodium 40 t} le Sodium MG MG 40 MG amLODIPine amLODIPine No amLODIPine Besylate 5 Besylate 5 Besylate 5 MG MG MG DULoxetine DULoxetine No BID DULoxetine HCl 20 MG HCl 20 MG HCl 20 MG Spironolact Spironolact No QD Spironolac one 25 MG one 25 MG tone 25 MG tiZANidine tiZANidine No 1{table BID tiZANidine HCl 2 MG HCl 2 MG t_as_ne HCl 2 MG eded} Losartan Losartan No Losartan Potassium Potassium Potassium 50 MG 50 MG 50 MG metFORMIN metFORMIN No 1{table BID metFORMIN HCl 500 MG HCl 500 MG t_with_ HCl 500 MG a_meal} Levothyroxi Levothyroxi No QD Levothyrox ne Sodium ne Sodium ine Sodium 175 MCG 175 MCG 175 MCG Meloxicam Meloxicam No Meloxicam 15 MG 15 MG 15 MG Januvia 25 Januvia 25 No 1{table QD Januvia 25 MG MG t} MG traZODone traZODone No traZODone HCl 150 MG HCl 150 MG HCl 150 MG Gabapentin Gabapentin No 1{capsu QID Gabapentin 300 MG 300 MG le} 300 MG Simvastatin Simvastatin No 1{table QD Simvastati 20 20 t_in_th n 20 e_eveni ng} Pantoprazol Pantoprazol No 1{table QD Pantoprazo e Sodium 40 e Sodium 40 t} le Sodium MG MG 40 MG amLODIPine amLODIPine No amLODIPine Besylate 5 Besylate 5 Besylate 5 MG MG MG DULoxetine DULoxetine No BID DULoxetine HCl 20 MG HCl 20 MG HCl 20 MG Spironolact Spironolact No QD Spironolac one 25 MG one 25 MG tone 25 MG tiZANidine tiZANidine No 1{table BID tiZANidine HCl 2 MG HCl 2 MG t_as_ne HCl 2 MG eded} Losartan Losartan No Losartan Potassium Potassium Potassium 50 MG 50 MG 50 MG metFORMIN metFORMIN No 1{table BID metFORMIN HCl 500 MG HCl 500 MG t_with_ HCl 500 MG a_meal} Levothyroxi Levothyroxi No QD Levothyrox ne Sodium ne Sodium ine Sodium 175 MCG 175 MCG 175 MCG Meloxicam Meloxicam No Meloxicam 15 MG 15 MG 15 MG Januvia 25 Januvia 25 No 1{table QD Januvia 25 MG MG t} MG traZODone traZODone No traZODone HCl 150 MG HCl 150 MG HCl 150 MG Gabapentin Gabapentin No 1{capsu QID Gabapentin 300 MG 300 MG le} 300 MG Simvastatin Simvastatin No 1{table QD Simvastati 20 20 t_in_th n 20 e_eveni ng} Pantoprazol Pantoprazol No 1{table QD Pantoprazo e Sodium 40 e Sodium 40 t} le Sodium MG MG 40 MG amLODIPine amLODIPine No amLODIPine Besylate 5 Besylate 5 Besylate 5 MG MG MG DULoxetine DULoxetine No BID DULoxetine HCl 20 MG HCl 20 MG HCl 20 MG Spironolact Spironolact No QD Spironolac one 25 MG one 25 MG tone 25 MG tiZANidine tiZANidine No 1{table BID tiZANidine HCl 2 MG HCl 2 MG t_as_ne HCl 2 MG eded} Losartan Losartan No Losartan Potassium Potassium Potassium 50 MG 50 MG 50 MG metFORMIN metFORMIN No 1{table BID metFORMIN HCl 500 MG HCl 500 MG t_with_ HCl 500 MG a_meal} Levothyroxi Levothyroxi No QD Levothyrox ne Sodium ne Sodium ine Sodium 175 MCG 175 MCG 175 MCG Pantoprazol Pantoprazol No 1{table QD Pantoprazo e Sodium 40 e Sodium 40 t} le Sodium MG MG 40 MG Januvia 25 Januvia 25 No 1{table QD Januvia 25 MG MG t} MG Simvastatin Simvastatin No 1{table QD Simvastati 20 20 t_in_th n 20 e_eveni ng} Losartan Losartan No Losartan Potassium Potassium Potassium 50 MG 50 MG 50 MG tiZANidine tiZANidine No 1{table BID tiZANidine HCl 2 MG HCl 2 MG t_as_ne HCl 2 MG eded} amLODIPine amLODIPine No amLODIPine Besylate 5 Besylate 5 Besylate 5 MG MG MG DULoxetine DULoxetine No BID DULoxetine HCl 20 MG HCl 20 MG HCl 20 MG Levothyroxi Levothyroxi No QD Levothyrox ne Sodium ne Sodium ine Sodium 175 MCG 175 MCG 175 MCG Meloxicam Meloxicam No Meloxicam 15 MG 15 MG 15 MG traZODone traZODone No traZODone HCl 150 MG HCl 150 MG HCl 150 MG metFORMIN metFORMIN No 1{table BID metFORMIN HCl 500 MG HCl 500 MG t_with_ HCl 500 MG a_meal} Gabapentin Gabapentin No 1{capsu QID Gabapentin 300 MG 300 MG le} 300 MG Spironolact Spironolact No QD Spironolac one 25 MG one 25 MG tone 25 MG Pantoprazol Pantoprazol No 1{table QD Pantoprazo e Sodium 40 e Sodium 40 t} le Sodium MG MG 40 MG Januvia 25 Januvia 25 No 1{table QD Januvia 25 MG MG t} MG Simvastatin Simvastatin No 1{table QD Simvastati 20 20 t_in_th n 20 e_eveni ng} Losartan Losartan No Losartan Potassium Potassium Potassium 50 MG 50 MG 50 MG tiZANidine tiZANidine No 1{table BID tiZANidine HCl 2 MG HCl 2 MG t_as_ne HCl 2 MG eded} amLODIPine amLODIPine No amLODIPine Besylate 5 Besylate 5 Besylate 5 MG MG MG DULoxetine DULoxetine No BID DULoxetine HCl 20 MG HCl 20 MG HCl 20 MG Levothyroxi Levothyroxi No QD Levothyrox ne Sodium ne Sodium ine Sodium 175 MCG 175 MCG 175 MCG Meloxicam Meloxicam No Meloxicam 15 MG 15 MG 15 MG traZODone traZODone No traZODone HCl 150 MG HCl 150 MG HCl 150 MG metFORMIN metFORMIN No 1{table BID metFORMIN HCl 500 MG HCl 500 MG t_with_ HCl 500 MG a_meal} Gabapentin Gabapentin No 1{capsu QID Gabapentin 300 MG 300 MG le} 300 MG Spironolact Spironolact No QD Spironolac one 25 MG one 25 MG tone 25 MG Losartan Losartan No Losartan Potassium Potassium Potassium 50 MG 50 MG 50 MG Simvastatin Simvastatin No 1{table QD Simvastati 20 20 t_in_th n 20 e_eveni ng} Pantoprazol Pantoprazol No 1{table QD Pantoprazo e Sodium 40 e Sodium 40 t} le Sodium MG MG 40 MG Dicyclomine Dicyclomine No 1{table Dicyclomin HCl 10 MG HCl 10 MG t} e HCl 10 MG Spironolact Spironolact No QD Spironolac one 25 MG one 25 MG tone 25 MG Gabapentin Gabapentin No 1{capsu QID Gabapentin 300 MG 300 MG le} 300 MG amLODIPine amLODIPine No amLODIPine Besylate 5 Besylate 5 Besylate 5 MG MG MG Levothyroxi Levothyroxi No QD Levothyrox ne Sodium ne Sodium ine Sodium 175 MCG 175 MCG 175 MCG Januvia 25 Januvia 25 No 1{table QD Januvia 25 MG MG t} MG Meloxicam Meloxicam No Meloxicam 15 MG 15 MG 15 MG traZODone traZODone No traZODone HCl 150 MG HCl 150 MG HCl 150 MG metFORMIN metFORMIN No 1{table BID metFORMIN HCl 500 MG HCl 500 MG t_with_ HCl 500 MG a_meal} DULoxetine DULoxetine No BID DULoxetine HCl 20 MG HCl 20 MG HCl 20 MG tiZANidine tiZANidine No 1{table BID tiZANidine HCl 2 MG HCl 2 MG t_as_ne HCl 2 MG eded} Losartan Losartan No Losartan Potassium Potassium Potassium 50 MG 50 MG 50 MG Simvastatin Simvastatin No 1{table QD Simvastati 20 20 t_in_th n 20 e_eveni ng} Pantoprazol Pantoprazol No 1{table QD Pantoprazo e Sodium 40 e Sodium 40 t} le Sodium MG MG 40 MG Dicyclomine Dicyclomine No 1{table Dicyclomin HCl 10 MG HCl 10 MG t} e HCl 10 MG Spironolact Spironolact No QD Spironolac one 25 MG one 25 MG tone 25 MG Gabapentin Gabapentin No 1{capsu QID Gabapentin 300 MG 300 MG le} 300 MG amLODIPine amLODIPine No amLODIPine Besylate 5 Besylate 5 Besylate 5 MG MG MG Levothyroxi Levothyroxi No QD Levothyrox ne Sodium ne Sodium ine Sodium 175 MCG 175 MCG 175 MCG Januvia 25 Januvia 25 No 1{table QD Januvia 25 MG MG t} MG Meloxicam Meloxicam No Meloxicam 15 MG 15 MG 15 MG traZODone traZODone No traZODone HCl 150 MG HCl 150 MG HCl 150 MG metFORMIN metFORMIN No 1{table BID metFORMIN HCl 500 MG HCl 500 MG t_with_ HCl 500 MG a_meal} DULoxetine DULoxetine No BID DULoxetine HCl 20 MG HCl 20 MG HCl 20 MG tiZANidine tiZANidine No 1{table BID tiZANidine HCl 2 MG HCl 2 MG t_as_ne HCl 2 MG eded} Meloxicam Meloxicam No Meloxicam 15 MG 15 MG 15 MG Spironolact Spironolact No QD Spironolac one 25 MG one 25 MG tone 25 MG Simvastatin Simvastatin No 1{table QD Simvastati 20 20 t_in_th n 20 e_eveni ng} Januvia 25 Auguvia 25 No 1{table QD Januvia 25 MG MG t} MG tiZANidine tiZANidine No 1{table BID tiZANidine HCl 2 MG HCl 2 MG t_as_ne HCl 2 MG eded} Levothyroxi Levothyroxi No QD Levothyrox ne Sodium ne Sodium ine Sodium 175 MCG 175 MCG 175 MCG amLODIPine amLODIPine No amLODIPine Besylate 5 Besylate 5 Besylate 5 MG MG MG Gabapentin Gabapentin No 1{capsu QID Gabapentin 300 MG 300 MG le} 300 MG Pantoprazol Pantoprazol No 1{table QD Pantoprazo e Sodium 40 e Sodium 40 t} le Sodium MG MG 40 MG traZODone traZODone No traZODone HCl 150 MG HCl 150 MG HCl 150 MG Dicyclomine Dicyclomine No 1{table Dicyclomin HCl 10 MG HCl 10 MG t} e HCl 10 MG Losartan Losartan No Losartan Potassium Potassium Potassium 50 MG 50 MG 50 MG DULoxetine DULoxetine No BID DULoxetine HCl 20 MG HCl 20 MG HCl 20 MG metFORMIN metFORMIN No 1{table BID metFORMIN HCl 500 MG HCl 500 MG t_with_ HCl 500 MG a_meal} Meloxicam Meloxicam No Meloxicam 15 MG 15 MG 15 MG Spironolact Spironolact No QD Spironolac one 25 MG one 25 MG tone 25 MG Simvastatin Simvastatin No 1{table QD Simvastati 20 20 t_in_th n 20 e_eveni ng} Auguvia 25 Auguvia 25 No 1{table QD Januvia 25 MG MG t} MG tiZANidine tiZANidine No 1{table BID tiZANidine HCl 2 MG HCl 2 MG t_as_ne HCl 2 MG eded} Levothyroxi Levothyroxi No QD Levothyrox ne Sodium ne Sodium ine Sodium 175 MCG 175 MCG 175 MCG amLODIPine amLODIPine No amLODIPine Besylate 5 Besylate 5 Besylate 5 MG MG MG Gabapentin Gabapentin No 1{capsu QID Gabapentin 300 MG 300 MG le} 300 MG Pantoprazol Pantoprazol No 1{table QD Pantoprazo e Sodium 40 e Sodium 40 t} le Sodium MG MG 40 MG traZODone traZODone No traZODone HCl 150 MG HCl 150 MG HCl 150 MG Dicyclomine Dicyclomine No 1{table Dicyclomin HCl 10 MG HCl 10 MG t} e HCl 10 MG Losartan Losartan No Losartan Potassium Potassium Potassium 50 MG 50 MG 50 MG DULoxetine DULoxetine No BID DULoxetine HCl 20 MG HCl 20 MG HCl 20 MG metFORMIN metFORMIN No 1{table BID metFORMIN HCl 500 MG HCl 500 MG t_with_ HCl 500 MG a_meal} Meloxicam Meloxicam No Meloxicam 15 MG 15 MG 15 MG Spironolact Spironolact No QD Spironolac one 25 MG one 25 MG tone 25 MG Simvastatin Simvastatin No 1{table QD Simvastati 20 20 t_in_th n 20 e_eveni ng} Januvia 25 Januvia 25 No 1{table QD Januvia 25 MG MG t} MG tiZANidine tiZANidine No 1{table BID tiZANidine HCl 2 MG HCl 2 MG t_as_ne HCl 2 MG eded} Levothyroxi Levothyroxi No QD Levothyrox ne Sodium ne Sodium ine Sodium 175 MCG 175 MCG 175 MCG amLODIPine amLODIPine No amLODIPine Besylate 5 Besylate 5 Besylate 5 MG MG MG Gabapentin Gabapentin No 1{capsu QID Gabapentin 300 MG 300 MG le} 300 MG Pantoprazol Pantoprazol No 1{table QD Pantoprazo e Sodium 40 e Sodium 40 t} le Sodium MG MG 40 MG traZODone traZODone No traZODone HCl 150 MG HCl 150 MG HCl 150 MG Dicyclomine Dicyclomine No 1{table Dicyclomin HCl 10 MG HCl 10 MG t} e HCl 10 MG Losartan Losartan No Losartan Potassium Potassium Potassium 50 MG 50 MG 50 MG DULoxetine DULoxetine No BID DULoxetine HCl 20 MG HCl 20 MG HCl 20 MG metFORMIN metFORMIN No 1{table BID metFORMIN HCl 500 MG HCl 500 MG t_with_ HCl 500 MG a_meal} Simvastatin Simvastatin No 1{table QD Simvastati 20 20 t_in_th n 20 e_eveni ng} Dicyclomine Dicyclomine No 1{table Dicyclomin HCl 10 MG HCl 10 MG t} e HCl 10 MG DULoxetine DULoxetine No BID DULoxetine HCl 20 MG HCl 20 MG HCl 20 MG tiZANidine tiZANidine No 1{table BID tiZANidine HCl 2 MG HCl 2 MG t_as_ne HCl 2 MG eded} Spironolact Spironolact No QD Spironolac one 25 MG one 25 MG tone 25 MG Levothyroxi Levothyroxi No QD Levothyrox ne Sodium ne Sodium ine Sodium 175 MCG 175 MCG 175 MCG Gabapentin Gabapentin No 1{capsu QID Gabapentin 300 MG 300 MG le} 300 MG traZODone traZODone No traZODone HCl 150 MG HCl 150 MG HCl 150 MG Pantoprazol Pantoprazol No 1{table QD Pantoprazo e Sodium 40 e Sodium 40 t} le Sodium MG MG 40 MG Januvia 25 Januvia 25 No 1{table QD Januvia 25 MG MG t} MG Meloxicam Meloxicam No Meloxicam 15 MG 15 MG 15 MG Losartan Losartan No Losartan Potassium Potassium Potassium 50 MG 50 MG 50 MG amLODIPine amLODIPine No amLODIPine Besylate 5 Besylate 5 Besylate 5 MG MG MG metFORMIN metFORMIN No 1{table BID metFORMIN HCl 500 MG HCl 500 MG t_with_ HCl 500 MG a_meal} Simvastatin Simvastatin No 1{table QD Simvastati 20 20 t_in_th n 20 e_eveni ng} Dicyclomine Dicyclomine No 1{table Dicyclomin HCl 10 MG HCl 10 MG t} e HCl 10 MG DULoxetine DULoxetine No BID DULoxetine HCl 20 MG HCl 20 MG HCl 20 MG tiZANidine tiZANidine No 1{table BID tiZANidine HCl 2 MG HCl 2 MG t_as_ne HCl 2 MG eded} Spironolact Spironolact No QD Spironolac one 25 MG one 25 MG tone 25 MG Levothyroxi Levothyroxi No QD Levothyrox ne Sodium ne Sodium ine Sodium 175 MCG 175 MCG 175 MCG Gabapentin Gabapentin No 1{capsu QID Gabapentin 300 MG 300 MG le} 300 MG traZODone traZODone No traZODone HCl 150 MG HCl 150 MG HCl 150 MG Pantoprazol Pantoprazol No 1{table QD Pantoprazo e Sodium 40 e Sodium 40 t} le Sodium MG MG 40 MG Januvia 25 Januvia 25 No 1{table QD Januvia 25 MG MG t} MG Meloxicam Meloxicam No Meloxicam 15 MG 15 MG 15 MG Losartan Losartan No Losartan Potassium Potassium Potassium 50 MG 50 MG 50 MG amLODIPine amLODIPine No amLODIPine Besylate 5 Besylate 5 Besylate 5 MG MG MG metFORMIN metFORMIN No 1{table BID metFORMIN HCl 500 MG HCl 500 MG t_with_ HCl 500 MG a_meal} DULoxetine DULoxetine No BID DULoxetine HCl 20 MG HCl 20 MG HCl 20 MG Simvastatin Simvastatin No 1{table QD Simvastati 20 20 t_in_th n 20 e_eveni ng} Spironolact Spironolact No QD Spironolac one 25 MG one 25 MG tone 25 MG metFORMIN metFORMIN No metFORMIN HCl 500 MG HCl 500 MG HCl 500 MG traZODone traZODone No traZODone HCl 150 MG HCl 150 MG HCl 150 MG Meloxicam Meloxicam No Meloxicam 15 MG 15 MG 15 MG Levothyroxi Levothyroxi No QD Levothyrox ne Sodium ne Sodium ine Sodium 175 MCG 175 MCG 175 MCG tiZANidine tiZANidine No 1{table BID tiZANidine HCl 2 MG HCl 2 MG t_as_ne HCl 2 MG eded} Gabapentin Gabapentin No 1{capsu QID Gabapentin 300 MG 300 MG le} 300 MG Januvia 25 Januvia 25 No 1{table QD Januvia 25 MG MG t} MG amLODIPine amLODIPine No amLODIPine Besylate 5 Besylate 5 Besylate 5 MG MG MG Dicyclomine Dicyclomine No 1{table Dicyclomin HCl 10 MG HCl 10 MG t} e HCl 10 MG Losartan Losartan No Losartan Potassium Potassium Potassium 50 MG 50 MG 50 MG Pantoprazol Pantoprazol No 1{table QD Pantoprazo e Sodium 40 e Sodium 40 t} le Sodium MG MG 40 MG DULoxetine DULoxetine No BID DULoxetine HCl 20 MG HCl 20 MG HCl 20 MG Simvastatin Simvastatin No 1{table QD Simvastati 20 20 t_in_th n 20 e_eveni ng} Spironolact Spironolact No QD Spironolac one 25 MG one 25 MG tone 25 MG metFORMIN metFORMIN No metFORMIN HCl 500 MG HCl 500 MG HCl 500 MG traZODone traZODone No traZODone HCl 150 MG HCl 150 MG HCl 150 MG Meloxicam Meloxicam No Meloxicam 15 MG 15 MG 15 MG Levothyroxi Levothyroxi No QD Levothyrox ne Sodium ne Sodium ine Sodium 175 MCG 175 MCG 175 MCG tiZANidine tiZANidine No 1{table BID tiZANidine HCl 2 MG HCl 2 MG t_as_ne HCl 2 MG eded} Gabapentin Gabapentin No 1{capsu QID Gabapentin 300 MG 300 MG le} 300 MG Januvia 25 Januvia 25 No 1{table QD Januvia 25 MG MG t} MG amLODIPine amLODIPine No amLODIPine Besylate 5 Besylate 5 Besylate 5 MG MG MG Dicyclomine Dicyclomine No 1{table Dicyclomin HCl 10 MG HCl 10 MG t} e HCl 10 MG Losartan Losartan No Losartan Potassium Potassium Potassium 50 MG 50 MG 50 MG Pantoprazol Pantoprazol No 1{table QD Pantoprazo e Sodium 40 e Sodium 40 t} le Sodium MG MG 40 MG Simvastatin Simvastatin No 1{table QD Simvastati 20 20 t_in_th n 20 e_eveni ng} Dicyclomine Dicyclomine No 1{table Dicyclomin HCl 10 MG HCl 10 MG t} e HCl 10 MG Gabapentin Gabapentin No 1{capsu QID Gabapentin 300 MG 300 MG le} 300 MG Januvia 25 Januvia 25 No 1{table QD Januvia 25 MG MG t} MG Meloxicam Meloxicam No Meloxicam 15 MG 15 MG 15 MG traZODone traZODone No traZODone HCl 150 MG HCl 150 MG HCl 150 MG amLODIPine amLODIPine No amLODIPine Besylate 5 Besylate 5 Besylate 5 MG MG MG Spironolact Spironolact No QD Spironolac one 25 MG one 25 MG tone 25 MG Pantoprazol Pantoprazol No 1{table QD Pantoprazo e Sodium 40 e Sodium 40 t} le Sodium MG MG 40 MG Losartan Losartan No Losartan Potassium Potassium Potassium 50 MG 50 MG 50 MG tiZANidine tiZANidine No 1{table BID tiZANidine HCl 2 MG HCl 2 MG t_as_ne HCl 2 MG eded} metFORMIN metFORMIN No metFORMIN HCl 500 MG HCl 500 MG HCl 500 MG Levothyroxi Levothyroxi No QD Levothyrox ne Sodium ne Sodium ine Sodium 175 MCG 175 MCG 175 MCG DULoxetine DULoxetine No BID DULoxetine HCl 20 MG HCl 20 MG HCl 20 MG traZODone traZODone No traZODone HCl 150 MG HCl 150 MG HCl 150 MG Januvia 25 Januvia 25 No 1{table QD Januvia 25 MG MG t} MG metFORMIN metFORMIN No metFORMIN HCl 500 MG HCl 500 MG HCl 500 MG Dicyclomine Dicyclomine No 1{table Dicyclomin HCl 10 MG HCl 10 MG t} e HCl 10 MG Simvastatin Simvastatin No 1{table QD Simvastati 20 20 t_in_th n 20 e_eveni ng} DULoxetine DULoxetine No BID DULoxetine HCl 20 MG HCl 20 MG HCl 20 MG Gabapentin Gabapentin No 1{capsu QID Gabapentin 300 MG 300 MG le} 300 MG Losartan Losartan No Losartan Potassium Potassium Potassium 50 MG 50 MG 50 MG Pantoprazol Pantoprazol No 1{table QD Pantoprazo e Sodium 40 e Sodium 40 t} le Sodium MG MG 40 MG Levothyroxi Levothyroxi No QD Levothyrox ne Sodium ne Sodium ine Sodium 175 MCG 175 MCG 175 MCG amLODIPine amLODIPine No amLODIPine Besylate 5 Besylate 5 Besylate 5 MG MG MG Spironolact Spironolact No QD Spironolac one 25 MG one 25 MG tone 25 MG tiZANidine tiZANidine No 1{table BID tiZANidine HCl 2 MG HCl 2 MG t_as_ne HCl 2 MG eded} Meloxicam Meloxicam No Meloxicam 15 MG 15 MG 15 MG Levothyroxi Levothyroxi No QD Levothyrox ne Sodium ne Sodium ine Sodium 175 MCG 175 MCG 175 MCG traZODone traZODone No traZODone HCl 150 MG HCl 150 MG HCl 150 MG Sucralfate Sucralfate No 10{ml_o BID Sucralfate 1 GM/10ML 1 GM/10ML n_an_em 1 GM/10ML pty_sto mach} Spironolact Spironolact No 1{table QD Spironolac one 25 MG one 25 MG t} tone 25 MG metFORMIN metFORMIN No metFORMIN HCl 500 MG HCl 500 MG HCl 500 MG Losartan Losartan No 1{table QD Losartan Potassium Potassium t} Potassium 50 MG 50 MG 50 MG Omeprazole Omeprazole No QD Omeprazole 40 MG 40 MG 40 MG Meloxicam Meloxicam No Meloxicam 15 MG 15 MG 15 MG Acetaminoph Acetaminoph No 1{table QID Acetaminop en-Codeine en-Codeine t_as_ne hen-Codein #4 300-60 #4 300-60 eded} e #4 MG MG 300-60 MG amLODIPine amLODIPine No amLODIPine Besylate 5 Besylate 5 Besylate 5 MG MG MG tiZANidine tiZANidine No 1{table BID tiZANidine HCl 2 MG HCl 2 MG t_as_ne HCl 2 MG eded} QUEtiapine QUEtiapine No 1{table QD QUEtiapine Fumarate Fumarate t_at_be Fumarate 300 MG 300 MG dtime} 300 MG Montelukast Montelukast No 1{table QD Montelukas Sodium 10 Sodium 10 t} t Sodium MG MG 10 MG Simvastatin Simvastatin No 1{table QD Simvastati 20 20 t_in_th n 20 e_eveni ng} Levothyroxi Levothyroxi No QD Levothyrox ne Sodium ne Sodium ine Sodium 175 MCG 175 MCG 175 MCG traZODone traZODone No traZODone HCl 150 MG HCl 150 MG HCl 150 MG Sucralfate Sucralfate No 10{ml_o BID Sucralfate 1 GM/10ML 1 GM/10ML n_an_em 1 GM/10ML pty_sto mach} Spironolact Spironolact No 1{table QD Spironolac one 25 MG one 25 MG t} tone 25 MG metFORMIN metFORMIN No metFORMIN HCl 500 MG HCl 500 MG HCl 500 MG Losartan Losartan No 1{table QD Losartan Potassium Potassium t} Potassium 50 MG 50 MG 50 MG Omeprazole Omeprazole No QD Omeprazole 40 MG 40 MG 40 MG Meloxicam Meloxicam No Meloxicam 15 MG 15 MG 15 MG Acetaminoph Acetaminoph No 1{table QID Acetaminop en-Codeine en-Codeine t_as_ne hen-Codein #4 300-60 #4 300-60 eded} e #4 MG MG 300-60 MG amLODIPine amLODIPine No amLODIPine Besylate 5 Besylate 5 Besylate 5 MG MG MG tiZANidine tiZANidine No 1{table BID tiZANidine HCl 2 MG HCl 2 MG t_as_ne HCl 2 MG eded} QUEtiapine QUEtiapine No 1{table QD QUEtiapine Fumarate Fumarate t_at_be Fumarate 300 MG 300 MG dtime} 300 MG Montelukast Montelukast No 1{table QD Montelukas Sodium 10 Sodium 10 t} t Sodium MG MG 10 MG Simvastatin Simvastatin No 1{table QD Simvastati 20 20 t_in_th n 20 e_eveni ng} Levothyroxi Levothyroxi No QD Levothyrox ne Sodium ne Sodium ine Sodium 175 MCG 175 MCG 175 MCG traZODone traZODone No traZODone HCl 150 MG HCl 150 MG HCl 150 MG Sucralfate Sucralfate No 10{ml_o BID Sucralfate 1 GM/10ML 1 GM/10ML n_an_em 1 GM/10ML pty_sto mach} Spironolact Spironolact No 1{table QD Spironolac one 25 MG one 25 MG t} tone 25 MG metFORMIN metFORMIN No metFORMIN HCl 500 MG HCl 500 MG HCl 500 MG Losartan Losartan No 1{table QD Losartan Potassium Potassium t} Potassium 50 MG 50 MG 50 MG Omeprazole Omeprazole No QD Omeprazole 40 MG 40 MG 40 MG Meloxicam Meloxicam No Meloxicam 15 MG 15 MG 15 MG Acetaminoph Acetaminoph No 1{table QID Acetaminop en-Codeine en-Codeine t_as_ne hen-Codein #4 300-60 #4 300-60 eded} e #4 MG MG 300-60 MG amLODIPine amLODIPine No amLODIPine Besylate 5 Besylate 5 Besylate 5 MG MG MG tiZANidine tiZANidine No 1{table BID tiZANidine HCl 2 MG HCl 2 MG t_as_ne HCl 2 MG eded} QUEtiapine QUEtiapine No 1{table QD QUEtiapine Fumarate Fumarate t_at_be Fumarate 300 MG 300 MG dtime} 300 MG Montelukast Montelukast No 1{table QD Montelukas Sodium 10 Sodium 10 t} t Sodium MG MG 10 MG Simvastatin Simvastatin No 1{table QD Simvastati 20 20 t_in_th n 20 e_eveni ng} Acetaminoph Acetaminoph No 1{table QID Acetaminop en-Codeine en-Codeine t_as_ne hen-Codein #4 300-60 #4 300-60 eded} e #4 MG MG 300-60 MG Montelukast Montelukast No 1{table QD Montelukas Sodium 10 Sodium 10 t} t Sodium MG MG 10 MG amLODIPine amLODIPine No amLODIPine Besylate 5 Besylate 5 Besylate 5 MG MG MG Meloxicam Meloxicam No Meloxicam 15 MG 15 MG 15 MG Losartan Losartan No 1{table QD Losartan Potassium Potassium t} Potassium 50 MG 50 MG 50 MG Spironolact Spironolact No 1{table QD Spironolac one 25 MG one 25 MG t} tone 25 MG QUEtiapine QUEtiapine No 1{table QD QUEtiapine Fumarate Fumarate t_at_be Fumarate 300 MG 300 MG dtime} 300 MG Omeprazole Omeprazole No QD Omeprazole 40 MG 40 MG 40 MG tiZANidine tiZANidine No 1{table BID tiZANidine HCl 2 MG HCl 2 MG t_as_ne HCl 2 MG eded} Simvastatin Simvastatin No 1{table QD Simvastati 20 20 t_in_th n 20 e_eveni ng} traZODone traZODone No traZODone HCl 150 MG HCl 150 MG HCl 150 MG Sucralfate Sucralfate No 10{ml_o BID Sucralfate 1 GM/10ML 1 GM/10ML n_an_em 1 GM/10ML pty_sto mach} Acetaminoph Acetaminoph No 1{table QID Acetaminop en-Codeine en-Codeine t_as_ne hen-Codein #4 300-60 #4 300-60 eded} e #4 MG MG 300-60 MG amLODIPine amLODIPine No amLODIPine Besylate 5 Besylate 5 Besylate 5 MG MG MG Meloxicam Meloxicam No Meloxicam 15 MG 15 MG 15 MG Losartan Losartan No 1{table QD Losartan Potassium Potassium t} Potassium 50 MG 50 MG 50 MG Spironolact Spironolact No 1{table QD Spironolac one 25 MG one 25 MG t} tone 25 MG Simvastatin Simvastatin No 1{table QD Simvastati 20 20 t_in_th n 20 e_eveni ng} QUEtiapine QUEtiapine No 1{table QD QUEtiapine Fumarate Fumarate t_at_be Fumarate 300 MG 300 MG dtime} 300 MG Sucralfate Sucralfate No 10{ml_o BID Sucralfate 1 GM/10ML 1 GM/10ML n_an_em 1 GM/10ML pty_sto mach} Montelukast Montelukast No 1{table QD Montelukas Sodium 10 Sodium 10 t} t Sodium MG MG 10 MG Omeprazole Omeprazole No QD Omeprazole 40 MG 40 MG 40 MG traZODone traZODone No traZODone HCl 150 MG HCl 150 MG HCl 150 MG tiZANidine tiZANidine No 1{table BID tiZANidine HCl 2 MG HCl 2 MG t_as_ne HCl 2 MG eded} Acetaminoph Acetaminoph No 1{table QID Acetaminop en-Codeine en-Codeine t_as_ne hen-Codein #4 300-60 #4 300-60 eded} e #4 MG MG 300-60 MG amLODIPine amLODIPine No amLODIPine Besylate 5 Besylate 5 Besylate 5 MG MG MG Meloxicam Meloxicam No Meloxicam 15 MG 15 MG 15 MG Losartan Losartan No 1{table QD Losartan Potassium Potassium t} Potassium 50 MG 50 MG 50 MG Spironolact Spironolact No 1{table QD Spironolac one 25 MG one 25 MG t} tone 25 MG Simvastatin Simvastatin No 1{table QD Simvastati 20 20 t_in_th n 20 e_eveni ng} QUEtiapine QUEtiapine No 1{table QD QUEtiapine Fumarate Fumarate t_at_be Fumarate 300 MG 300 MG dtime} 300 MG Sucralfate Sucralfate No 10{ml_o BID Sucralfate 1 GM/10ML 1 GM/10ML n_an_em 1 GM/10ML pty_sto mach} Montelukast Montelukast No 1{table QD Montelukas Sodium 10 Sodium 10 t} t Sodium MG MG 10 MG Omeprazole Omeprazole No QD Omeprazole 40 MG 40 MG 40 MG traZODone traZODone No traZODone HCl 150 MG HCl 150 MG HCl 150 MG tiZANidine tiZANidine No 1{table BID tiZANidine HCl 2 MG HCl 2 MG t_as_ne HCl 2 MG eded} Acetaminoph Acetaminoph No 1{table QID Acetaminop en-Codeine en-Codeine t_as_ne hen-Codein #4 300-60 #4 300-60 eded} e #4 MG MG 300-60 MG amLODIPine amLODIPine No amLODIPine Besylate 5 Besylate 5 Besylate 5 MG MG MG Meloxicam Meloxicam No Meloxicam 15 MG 15 MG 15 MG Losartan Losartan No 1{table QD Losartan Potassium Potassium t} Potassium 50 MG 50 MG 50 MG Spironolact Spironolact No 1{table QD Spironolac one 25 MG one 25 MG t} tone 25 MG Levothyroxi Levothyroxi Yes Terry 1 tablet [facility] ne Sodium ne Sodium [place] in [facility] morning on - [facility] stomach to [address] daily Gabapentin Gabapentin Yes Terry TK 2 [facility] [place] PO QID PRN - [facility] Loratadine Loratadine 2021- No 1{table QD Loratadine 10 MG 10 MG 02-06 t} 10 MG 00:00 :00 Loratadine Loratadine 2021- No 1{table QD Loratadine 10 MG 10 MG 02-06 t} 10 MG 00:00 :00 Loratadine Loratadine 2021- No 1{table QD Loratadine 10 MG 10 MG 04 t} 10 MG 00:00 :00 Loratadine Loratadine 2021- No 1{table QD Loratadine 10 MG 10 MG 02-06 t} 10 MG 00:00 :00 Loratadine Loratadine 2021- No 1{table QD Loratadine 10 MG 10 MG 04 t} 10 MG 00:00 :00 Loratadine Loratadine 2021- No 1{table QD Loratadine 10 MG 10 MG 04 t} 10 MG 00:00 :00 Loratadine Loratadine 2021- No 1{table QD Loratadine 10 MG 10 MG 04 t} 10 MG 00:00 :00 Oxybutynin Oxybutynin 2019- No Terry 1 tablet [facility] Chloride Chloride 10-31 [facility] - [facility] :00 [facility] Immunizations Ordered Immunization Filled Immunization Date Status Commen ts Source Name Name Flucelvax - Flucelvax - 2022-05-03 Completed [facility]ial multidose vial 14:53:00 [facility] Flucelvax - Flucelvax - 2022-05-03 Completed [facility] multidose vial multidose vial 14:53:00 [facility] Flucelvax - Flucelvax - 2021-05-18 Completed [facility] multidose vial multidose vial 16:08:00 - [facility] Flucelvax - Flucelvax - 2021-05-18 Completed [facility] multidose vial multidose vial 16:08:00 - [facility] Flucelvax - Flucelvax - 2021-05-18 Completed [facility] multidose vial multidose vial 16:08:00 - [facility] Flucelvax - Flucelvax - 2021-05-18 Completed [facility] multidose vial multidose vial 16:08:00 - [facility] Flucelvax - Flucelvax - 2021-05-18 Completed [facility] multidose vial multidose vial 16:08:00 - [facility] Flucelvax - Flucelvax - 2021-05-18 Completed [facility] multidose vial multidose vial 16:08:00 - [facility] Flucelvax - Flucelvax - 2021-05-18 Completed [facility] multidose vial multidose vial 16:08:00 - [facility] Flucelvax - Flucelvax - 2021-05-18 Completed [facility] multidose vial multidose vial 16:08:00 - [facility] Flucelvax - Flucelvax - 2021-05-18 Completed [facility] multidose vial multidose vial 16:08:00 - [facility] Flucelvax - Flucelvax - 2021-05-18 Completed [facility] multidose vial multidose vial 16:08:00 - [facility] Flucelvax - Flucelvax - 2021-05-18 Completed [facility] multidose vial multidose vial 16:08:00 - [facility] Flucelvax - Flucelvax - 2021-05-18 Completed [facility] multidose vial multidose vial 16:08:00 - [facility] Flucelvax - Flucelvax - 2021-05-18 Completed [facility] multidose vial multidose vial 16:08:00 - [facility] Flucelvax - Flucelvax - 2021-05-18 Completed [facility] multidose vial multidose vial 16:08:00 - [facility] Flucelvax - Flucelvax - 2021-05-18 Completed [facility] multidose vial multidose vial 16:08:00 - [facility] Flucelvax - Flucelvax - 2021-05-18 Completed [facility] multidose vial multidose vial 16:08:00 - [facility] Flucelvax - Flucelvax - 2021-05-18 Completed [facility] multidose vial multidose vial 16:08:00 - [facility] Flucelvax - Flucelvax - 2021-05-18 Completed [facility] multidose vial multidose vial 16:08:00 - [facility] Flucelvax - Flucelvax - 2021-05-18 Completed [facility] multidose vial multidose vial 16:08:00 - [facility] Flucelvax - Flucelvax - 2021-05-18 Completed [facility] multidose vial multidose vial 16:08:00 - [facility] Flucelvax - Flucelvax - 2021-05-18 Completed [facility] multidose vial multidose vial 16:08:00 - [facility] Flucelvax - Flucelvax - 2021-05-18 Completed [facility] multidose vial multidose vial 16:08:00 - [facility] Flucelvax - Flucelvax - 2021-05-18 Completed [facility] multidose vial multidose vial 16:08:00 - [facility] Flucelvax - Flucelvax - 2021-05-18 Completed [facility] multidose vial multidose vial 16:08:00 - [facility] Flucelvax - Flucelvax - 2021-05-18 Completed [facility] multidose vial multidose vial 16:08:00 - [facility] Flucelvax - Flucelvax - 2021-05-18 Completed [facility] multidose vial multidose vial 16:08:00 - [facility] Flucelvax - Flucelvax - 2021-05-18 Completed [facility] multidose vial multidose vial 16:08:00 - [facility] Flucelvax - Flucelvax - 2021-05-18 Completed [facility] multidose vial multidose vial 16:08:00 - [facility] Flucelvax - Flucelvax - 2021-05-18 Completed [facility] multidose vial multidose vial 16:08:00 - [facility] COVID-19 Vaccine COVID-19 Vaccine 2020-10-25 Completed [facility] ([facility] (Dianne) 13:48:00 - [facility] COVID-19 Vaccine COVID-19 Vaccine 2020-10-25 Completed [facility] ([facility]ianne[facility] (Dianne) 13:48:00 [facility] COVID-19 Vaccine COVID-19 Vaccine 2020-10-25 Completed [facility] ([facility]ianne) (Dianne) 13:48:00 - [facility] COVID-19 Vaccine COVID-19 Vaccine 2020-10-25 Completed [facility] ([facility]ianne) (Dianne) 13:48:00 - [facility] COVID-19 Vaccine COVID-19 Vaccine 2020-10-25 Completed [facility]ne[facility] (Dianne) 13:48:00 [facility] COVID-19 Vaccine COVID-19 Vaccine 2020-10-25 Completed [facility]ianne[facility] (Dianne) 13:48:00 [facility] COVID-19 Vaccine COVID-19 Vaccine 2020-10-25 Completed [facility] ([facility]ianne) (Dianne) 13:48:00 - [facility] COVID-19 Vaccine COVID-19 Vaccine 2020-10-25 Completed [facility]ianne[facility] (Dianne) 13:48:00 [facility] COVID-19 Vaccine COVID-19 Vaccine 2020-10-25 Completed [facility] (Dianne) 13:48:00 [facility] COVID-19 Vaccine COVID-19 Vaccine 2020-10-25 Completed [facility]ianne[facility] (Dianne) 13:48:00 [facility] COVID-19 Vaccine COVID-19 Vaccine 2020-10-25 Completed [facility] ([facility]ianne) (Dianne) 13:48:00 - [facility] COVID-19 Vaccine COVID-19 Vaccine 2020-10-25 Completed [facility] ([facility]ianne) (Dianne) 13:48:00 - [facility] COVID-19 Vaccine COVID-19 Vaccine 2020-10-25 Completed [facility] (Dianne) (Dianne) 13:48:00 - [facility] COVID-19 Vaccine COVID-19 Vaccine 2020-10-25 Completed [facility] ([facility]ianne[facility] (Dianne) 13:48:00 [facility] COVID-19 Vaccine COVID-19 Vaccine 2020-10-25 Completed [facility] ([facility]ian[facility] (Dianne) 13:48:00 [facility] COVID-19 Vaccine COVID-19 Vaccine 2020-10-25 Completed [facility] ([facility]ianne) (Dianne) 13:48:00 - [facility] COVID-19 Vaccine COVID-19 Vaccine 2020-10-25 Completed [facility] ([facility]) (Dianne) 13:48:00 - [facility] COVID-19 Vaccine COVID-19 Vaccine 2020-10-25 Completed [facility] (Dianne) 13:48:00 [facility] COVID-19 Vaccine COVID-19 Vaccine 2020-10-25 Completed [facility] (Dianne) 13:48:00 [facility] COVID-19 Vaccine COVID-19 Vaccine 2020-10-25 Completed [facility] (Dianne) 13:48:00 [facility] COVID-19 Vaccine COVID-19 Vaccine 2020-10-25 Completed [facility] ([facility]) (Dianne) 13:48:00 [facility] COVID-19 Vaccine COVID-19 Vaccine 2020-10-25 Completed [facility] ([facility]ianne) (Dianne) 13:48:00 [facility] COVID-19 Vaccine COVID-19 Vaccine 2020-10-25 Completed [facility] ([facility]ian[facility]) (Dianne) 13:48:00 - [facility] COVID-19 Vaccine COVID-19 Vaccine 2020-10-25 Completed [facility] ([facility]ianne) (Dianne) 13:48:00 [facility] COVID-19 Vaccine COVID-19 Vaccine 2020-10-25 Completed [facility] ([facility]ianne) (Dianne) 13:48:00 [facility] COVID-19 Vaccine COVID-19 Vaccine 2020-10-25 Completed [facility] ([facility]ian[facility] (Dianne) 13:48:00 [facility] COVID-19 Vaccine COVID-19 Vaccine 2020-10-25 Completed [facility] ([facility] (Dianne) 13:48:00 [facility] COVID-19 Vaccine COVID-19 Vaccine 2020-10-25 Completed [facility] ([facility]ianne) (Dianne) 13:48:00 [facility] COVID-19 Vaccine COVID-19 Vaccine 2020-10-25 Completed [facility] ([facility] (Dianne) 13:48:00 [facility] Toradol (Ketorolac) Toradol (Ketorolac) 2020-10-20 [facility]pleted [facility] 12[facility]10[facility]00 [facility] Toradol (Ketorolac) Toradol (Ketorolac) 2020-10-20 Completed [facility] 12:10:00 [facility] Pneumovax (PPSV23) Pneumovax (PPSV23) 2019-06-09 Completed [facility] 09:23[facility]00 [facility] Pneumovax (PPSV23) Pneumovax (PPSV23) 2019-06-09 [facility]pleted [facility] 09:23[facility]00 [facility] Pneumovax (PPSV23) Pneumovax (PPSV23) 2019-06-09 [facility]pleted [facility] 09:23[facility]00 [facility] Pneumovax (PPSV23) Pneumovax (PPSV23) 2019-06-09 [facility] 09:23[facility]00 [facility] Pneumovax (PPSV23) Pneumovax (PPSV23) 2019-06-09 [facility] 09:23[facility]00 [facility] Pneumovax (PPSV23) Pneumovax (PPSV23) 2019-06-09 [facility] 09:23[facility]00 [facility] Pneumovax (PPSV23) Pneumovax (PPSV23) 2019-06-09 [facility] 09:23[facility]00 [facility] Pneumovax (PPSV23) Pneumovax (PPSV23) 2019-06-09 [facility]:23[facility]00 [facility] Pneumovax (PPSV23) Pneumovax (PPSV23) 2019-06-09 Completed [facility] 09:23:00 - [facility] Pneumovax (PPSV23) Pneumovax (PPSV23) 2019-06-09 [facility]pleted [facility] 09:23[facility]00 [facility] Pneumovax (PPSV23) Pneumovax (PPSV23) 2019-06-09 [facility]pleted [facility] 09:23[facility]00 [facility] Pneumovax (PPSV23) Pneumovax (PPSV23) 2019-06-09 [facility] 09:23[facility]00 [facility] Pneumovax (PPSV23) Pneumovax (PPSV23) 2019-06-09 [facility] 09:23:00 [facility] Pneumovax (PPSV23) Pneumovax (PPSV23) 2019-06-09 [facility] 09:23[facility]00 [facility] Pneumovax (PPSV23) Pneumovax (PPSV23) 2019-06-09 [facility] 09:23[facility]00 [facility] Pneumovax (PPSV23) Pneumovax (PPSV23) 2019-06-09 [facility] 09:23[facility]00 [facility] Pneumovax (PPSV23) Pneumovax (PPSV23) 2019-06-09 [facility]pleted [facility] 09:23:00 [facility] Pneumovax (PPSV23) Pneumovax (PPSV23) 2019-06-09 Completed [facility] 09:23:00 [facility] Pneumovax (PPSV23) Pneumovax (PPSV23) 2019-06-09 Completed [facility] 09:23:00 [facility] Pneumovax (PPSV23) Pneumovax (PPSV23) 2019-06-09 Completed [facility] 09:23:00 - [facility] Pneumovax (PPSV23) Pneumovax (PPSV23) 2019-06-09 Completed [facility] 09:23:00 - [facility] Pneumovax (PPSV23) Pneumovax (PPSV23) 2019-06-09 Completed [facility] 09:23:00 [facility] Pneumovax (PPSV23) Pneumovax (PPSV23) 2019-06-09 Completed [facility] 09:23:00 - [facility] Pneumovax (PPSV23) Pneumovax (PPSV23) 2019-06-09 Completed [facility] 09:23:00 - [facility] Pneumovax (PPSV23) Pneumovax (PPSV23) 2019-06-09 Completed [facility] 09:23:00 - [facility] Pneumovax (PPSV23) Pneumovax (PPSV23) 2019-06-09 Completed [facility] 09:23:00 - [facility] Pneumovax (PPSV23) Pneumovax (PPSV23) 2019-06-09 Completed [facility] 09:23:00 - [facility] Pneumovax (PPSV23) Pneumovax (PPSV23) 2019-06-09 Completed [facility] 09:23:00 - [facility] Pneumovax (PPSV23) Pneumovax (PPSV23) 2019-06-09 Completed [facility] 09:23:00 - [facility] Pneumovax Pneumovax 2019-06-09 Completed [facility] 00:[facility]:00 [facility] Flucelvax - single Flucelvax - single 2019-05-30 Completed [facility] dose syringe dose syringe 11:58:00 - [facility] Flucelvax - single Flucelvax - single 2019-05-30 Completed [facility] dose syringe dose syringe 11:58:00 - [facility] Flucelvax - single Flucelvax - single 2019-05-30 Completed [facility] dose syringe dose syringe 11:58:00 - [facility] Flucelvax - single Flucelvax - single 2019-05-30 Completed [facility] dose syringe dose syringe 11:58:00 - [facility] Flucelvax - single Flucelvax - single 2019-05-30 Completed [facility] dose syringe dose syringe 11:58:00 - [facility] Flucelvax - single Flucelvax - single 2019-05-30 Completed [facility] dose syringe dose syringe 11:58:00 - [facility] Flucelvax - single Flucelvax - single 2019-05-30 Completed [facility] dose syringe dose syringe 11:58:00 - [facility] Flucelvax - single Flucelvax - single 2019-05-30 Completed [facility] dose syringe dose syringe 11:58:00 - [facility] Flucelvax - single Flucelvax - single 2019-05-30 Completed [facility] dose syringe dose syringe 11:58:00 - [facility] Flucelvax - single Flucelvax - single 2019-05-30 Completed [facility] dose syringe dose syringe 11:58:00 - [facility] Flucelvax - single Flucelvax - single 2019-05-30 Completed [facility] dose syringe dose syringe 11:58:00 - [facility] Flucelvax - single Flucelvax - single 2019-05-30 Completed [facility] dose syringe dose syringe 11:58:00 - [facility] Flucelvax - single Flucelvax - single 2019-05-30 Completed [facility] dose syringe dose syringe 11:58:00 - [facility] Flucelvax - single Flucelvax - single 2019-05-30 Completed [facility] dose syringe dose syringe 11:58:00 - [facility] Flucelvax - single Flucelvax - single 2019-05-30 Completed [facility] dose syringe dose syringe 11:58:00 - [facility] Flucelvax - single Flucelvax - single 2019-05-30 Completed [facility] dose syringe dose syringe 11:58:00 - [facility] Flucelvax - single Flucelvax - single 2019-05-30 Completed [facility] dose syringe dose syringe 11:58:00 - [facility] Flucelvax - single Flucelvax - single 2019-05-30 Completed [facility] dose syringe dose syringe 11:58:00 - [facility] Flucelvax - single Flucelvax - single 2019-05-30 Completed [facility] dose syringe dose syringe 11:58:00 - [facility] Flucelvax - single Flucelvax - single 2019-05-30 Completed [facility] dose syringe dose syringe 11:58:00 - [facility] Flucelvax - single Flucelvax - single 2019-05-30 Completed [facility] dose syringe dose syringe 11:58:00 - [facility] Flucelvax - single Flucelvax - single 2019-05-30 Completed [facility] dose syringe dose syringe 11:58:00 - [facility] Flucelvax - single Flucelvax - single 2019-05-30 Completed [facility] dose syringe dose syringe 11:58:00 - [facility] Flucelvax - single Flucelvax - single 2019-05-30 Completed [facility] dose syringe dose syringe 11:58:00 - [facility] Flucelvax - single Flucelvax - single 2019-05-30 Completed [facility] dose syringe dose syringe 11:58:00 - [facility] Flucelvax - single Flucelvax - single 2019-05-30 Completed [facility] dose syringe dose syringe 11:58:00 - [facility] Flucelvax - single Flucelvax - single 2019-05-30 Completed [facility] dose syringe dose syringe 11:58:00 - [facility] Flucelvax - single Flucelvax - single 2019-05-30 Completed [facility] dose syringe dose syringe 11:58:00 - [facility] Flucelvax - single Flucelvax - single 2019-05-30 Completed [facility] dose syringe dose syringe 11:58:00 - [facility] Flucelvax - single Flucelvax - single 2019-05-30 Completed [facility] dose syringe dose syringe 00:00:00 - [facility] Prevnar 13 Prevnar 13 2018-05-09 Completed [facility] -Pneumonia Vaccine -Pneumonia Vaccine 09:29:00 - [facility] Prevnar 13 Prevnar 13 2018-05-09 Completed [facility] -Pneumonia Vaccine -Pneumonia Vaccine 09:29:00 - [facility] Prevnar 13 Prevnar 13 2018-05-09 Completed [facility] -Pneumonia Vaccine -Pneumonia Vaccine 09:29:00 - [facility] Prevnar 13 Prevnar 13 2018-05-09 Completed [facility] -Pneumonia Vaccine -Pneumonia Vaccine 09:29:00 - [facility] Prevnar 13 Prevnar 13 2018-05-09 Completed [facility] -Pneumonia Vaccine -Pneumonia Vaccine 09:29:00 - [facility] Prevnar 13 Prevnar 13 2018-05-09 Completed [facility] -Pneumonia Vaccine -Pneumonia Vaccine 09:29:00 - [facility] Prevnar 13 Prevnar 13 2018-05-09 Completed [facility] -Pneumonia Vaccine -Pneumonia Vaccine 09:29:00 - [facility] Prevnar 13 Prevnar 13 2018-05-09 Completed [facility] -Pneumonia Vaccine -Pneumonia Vaccine 09:29:00 - [facility] Prevnar 13 Prevnar 13 2018-05-09 Completed [facility] -Pneumonia Vaccine -Pneumonia Vaccine 09:29:00 - [facility] Prevnar 13 Prevnar 13 2018-05-09 Completed [facility] -Pneumonia Vaccine -Pneumonia Vaccine 09:29:00 - [facility] Prevnar 13 Prevnar 13 2018-05-09 Completed [facility] -Pneumonia Vaccine -Pneumonia Vaccine 09:29:00 - [facility] Prevnar 13 Prevnar 13 2018-05-09 Completed [facility] -Pneumonia Vaccine -Pneumonia Vaccine 09:29:00 - [facility] Prevnar 13 Prevnar 13 2018-05-09 Completed [facility] -Pneumonia Vaccine -Pneumonia Vaccine 09:29:00 - [facility] Prevnar 13 Prevnar 13 2018-05-09 Completed [facility] -Pneumonia Vaccine -Pneumonia Vaccine 09:29:00 - [facility] Prevnar 13 Prevnar 13 2018-05-09 Completed [facility] -Pneumonia Vaccine -Pneumonia Vaccine 09:29:00 - [facility] Prevnar 13 Prevnar 13 2018-05-09 Completed [facility] -Pneumonia Vaccine -Pneumonia Vaccine 09:29:00 - [facility] Prevnar 13 Prevnar 13 2018-05-09 Completed [facility] -Pneumonia Vaccine -Pneumonia Vaccine 09:29:00 - [facility] Prevnar 13 Prevnar 13 2018-05-09 Completed [facility] -Pneumonia Vaccine -Pneumonia Vaccine 09:29:00 - [facility] Prevnar 13 Prevnar 13 2018-05-09 Completed [facility] -Pneumonia Vaccine -Pneumonia Vaccine 09:29:00 - [facility] Prevnar 13 Prevnar 13 2018-05-09 Completed [facility] -Pneumonia Vaccine -Pneumonia Vaccine 09:29:00 - [facility] Prevnar 13 Prevnar 13 2018-05-09 Completed [facility] -Pneumonia Vaccine -Pneumonia Vaccine 09:29:00 - [facility] Prevnar 13 Prevnar 13 2018-05-09 Completed [facility] -Pneumonia Vaccine -Pneumonia Vaccine 09:29:00 - [facility] Prevnar 13 Prevnar 13 2018-05-09 Completed [facility] -Pneumonia Vaccine -Pneumonia Vaccine 09:29:00 - [facility] Prevnar 13 Prevnar 13 2018-05-09 Completed [facility] -Pneumonia Vaccine -Pneumonia Vaccine 09:29:00 - [facility] Prevnar 13 Prevnar 13 2018-05-09 Completed [facility] -Pneumonia Vaccine -Pneumonia Vaccine 09:29:00 - [facility] Prevnar 13 Prevnar 13 2018-05-09 Completed [facility] -Pneumonia Vaccine -Pneumonia Vaccine 09:29:00 - [facility] Prevnar 13 Prevnar 13 2018-05-09 Completed [facility] -Pneumonia Vaccine -Pneumonia Vaccine 09:29:00 - [facility] Prevnar 13 Prevnar 13 2018-05-09 Completed [facility] -Pneumonia Vaccine -Pneumonia Vaccine 09:29:00 - [facility] Prevnar 13 Prevnar 13 2018-05-09 Completed [facility] -Pneumonia Vaccine -Pneumonia Vaccine 09:29:00 - [facility] Prevnar 13 Prevnar 13 2018-05-09 Completed [facility] -Pneumonia Vaccine -Pneumonia Vaccine 00:00:00 [facility] Vital Signs Vital Name Observation Time Observation Value Comments Source Systolic blood 2022-05-24 20:04:00 145 mm[Hg] Univer sity of pressure [facility] Diastolic blood 2022-05-24 20:04:00 77 mm[Hg] Unive rsity of pressure [facility] Body height 2022-05-24 20:04:00 170.2 cm Universi [facility] of [facility] Body weight 2022-05-24 20:04:00 85.73 kg [facility]i [facility] of [facility] BMI 2022-05-24 20:04:00 29.60 kg/m2 [facility] height 2022-05-03 14:20:00 65.5 [in_i] [facility] weight 2022-05-03 14:20:00 189.6 [lb_av] [facility] temperature 2022-05-03 14:20:00 97.8 [degF] [facility] bmi 2022-05-03 14:20:00 31.07 kg/m2 [facility] oximetry 2022-05-03 14:20:00 100 % [facility] respiratory rate 2022-05-03 14:20:00 16 /min Comm on [facility] blood pressure 2022-05-03 14:20:00 134 mm[Hg] [facility] systolic [facility] blood pressure 2022-05-03 14:20:00 82 mm[Hg] [facility] diastolic [facility] Systolic blood 2022-03-25 00:54:00 164 mm[Hg] Univer sity of [facility] Diastolic blood 2022-03-25 00:54:00 83 mm[Hg] Unive rsity of [facility] Heart rate 2022-03-25 00:54:00 95 /min Universi ty [facility] Body temperature 2022-03-25 00:54:00 37 [facility] in 2022-03-25 00:54:00 97 /min [facility] Arterial blood by [facility] Pulse oximetry Branch Respiratory rate 2022-03-24 19:44:00 18 /min Univ ersity of [facility] Body height 2022-03-24 18:05:00 170.2 cm Universi ty of [facility] Body weight 2022-03-24 18:05:00 84.823 kg [facility] BMI 2022-03-24 18:05:00 29.29 kg/m2 [facility] Systolic blood 2022-03-24 19:44:00 138 mm[Hg] Univer [...] University of Arterial blood by [employer] [place] [employer] Pulse oximetry Branch Body height 2022-03-24 18:05:00 170.2 cm [facility] Body weight 2022-03-24 18:05:00 84.823 kg [facility] BMI 2022-03-24 18:05:00 29.29 kg/m2 [facility] Systolic blood 2022-03-23 13:59:00 130 [...] 2022-03-23 13:59:00 85 kg [facility] BMI 2022-03-23 13:59:00 29.35 kg/m2 [facility] Oxygen saturation in 2022-03-23 13:59:00 99 /min [facility] Arterial blood by [employer] Pulse oximetry Branch height 2022-03-08 14:40:00 65.5 [in_i] [facility]-08 14:40:00 195.8 [lb_av] Common [facility] temperature 2022-03-08 14:40:00 97.8 [degF] [facility] bmi 2022-03-08 14:40:00 32.08 kg/m2 [facility] oximetry 2022-03-08 14:40:00 98 % [facility] respiratory rate 2022-03-08 14:40:00 16 /min Comm on [facility] blood pressure 2022-03-08 14:40:00 126 mm[Hg] Common [facility] systolic [facility] blood pressure 2022-03-08 14:40:00 74 mm[Hg] Common [facility] diastolic [facility] Body height 2022-02-21 19:05:00 170.2 cm [facility] Body weight 2022-02-21 19:05:00 86.183 kg [facility] BMI 2022-02-21 19:05:00 29.76 kg/m2 [facility] height 2021-12-07 14:40:00 65.5 [in_i] Common [facility] weight 2021-12-07 14:40:00 188.4 [lb_av] [facility] temperature 2021-12-07 14:40:00 97.5 [degF] Common [facility] bmi 2021-12-07 14:40:00 30.87 kg/m2 Common [facility] oximetry 2021-12-07 14:40:00 100 % Common [facility] respiratory rate 2021-12-07 14:40:00 16 /min Comm on [facility] blood pressure 2021-12-07 14:40:00 134 mm[Hg] Common [facility] - systolic [facility] blood pressure 2021-12-07 14:40:00 76 mm[Hg] [facility] - diastolic [facility] height 2021-11-08 11:20:00 65.5 [in_i] Common [facility] weight 2021-11-08 11:20:00 191.8 [lb_av] Common [facility] temperature 2021-11-08 11:20:00 98.1 [degF] Common [facility] bmi 2021-11-08 11:20:00 31.43 kg/m2 [facility] oximetry 2021-11-08 11:20:00 98 % [facility] respiratory rate 2021-11-08 11:20:00 16 /min Comm on [facility] height 2021-11-03 14:00:00 65.5 [in_i] [facility] weight 2021-11-03 14:00:00 193 [lb_av] [facility] bmi 2021-11-03 14:00:00 31.62 kg/m2 [facility] height 2021-10-20 11:00:00 65.5 [in_i] [facility] weight 2021-10-20 11:00:00 193 [lb_av] [facility] temperature 2021-10-20 11:00:00 97.4 [degF] [facility] bmi 2021-10-20 11:00:00 31.62 kg/m2 [facility] blood pressure 2021-10-20 11:00:00 132 mm[Hg] Common [facility] - systolic [facility] blood pressure 2021-10-20 11:00:00 74 mm[Hg] Common [facility] - diastolic [facility] height 2021-08-31 08:30:00 65.5 [in_i] [facility] weight 2021-08-31 08:30:00 190 [lb_av] [facility] - [facility] temperature 2021-08-31 08:30:00 97.3 [degF] [facility] - [facility] bmi 2021-08-31 08:30:00 31.13 kg/m2 [facility] blood pressure 2021-08-31 08:30:00 118 mm[Hg] [facility] - systolic [facility] blood pressure 2021-08-31 08:30:00 68 mm[Hg] [facility] - diastolic [facility] height 2021-08-23 13:00:00 65.5 [in_i] Common [facility] weight 2021-08-23 13:00:00 203.8 [lb_av] [facility] temperature 2021-08-23 13:00:00 97.7 [degF] [facility] 2021-08-23 13:00:00 33.39 kg/m2 [facility] oximetry 2021-08-23 13:00:00 99 % [facility] respiratory rate 2021-08-23 13:00:00 16 /min Comm on [facility] blood pressure 2021-08-23 13:00:00 132 mm[Hg] Common [facility] - systolic [facility] blood pressure 2021-08-23 13:00:00 68 mm[Hg] Common [facility] - diastolic [facility] height 2021-07-06 15:00:00 65.5 [in_i] Common [facility] weight 2021-07-06 15:00:00 204.4 [lb_av] [facility] temperature 2021-07-06 15:00:00 97.5 [degF] [facility] bmi 2021-07-06 15:00:00 33.49 kg/m2 [facility] oximetry 2021-07-06 15:00:00 97 % Common [facility] respiratory rate 2021-07-06 15:00:00 16 /min Comm on [facility] blood pressure 2021-07-06 15:00:00 138 mm[Hg] Common [facility] - systolic [facility] blood pressure 2021-07-06 15:00:00 80 mm[Hg] Common [facility] - diastolic [facility] height 2021-06-22 10:20:00 65.5 [in_i] Common [facility] weight 2021-06-22 10:20:00 167.6 [lb_av] Common [facility] temperature 2021-06-22 10:20:00 97.4 [degF] Common [facility] bmi 2021-06-22 10:20:00 27.46 kg/m2 Common [facility] oximetry 2021-06-22 10:20:00 98 % [facility] respiratory rate 2021-06-22 10:20:00 16 /min Comm on [facility] blood pressure 2021-06-22 10:20:00 136 mm[Hg] Common [facility] - systolic [facility] blood pressure 2021-06-22 10:20:00 80 mm[Hg] Common [facility] diastolic [facility] height 2021-06-02 15:20:00 65.5 [in_i] Common [facility] weight 2021-06-02 15:20:00 207.7 [lb_av] Common [facility] temperature 2021-06-02 15:20:00 98.7 [degF] Common [facility] bmi 2021-06-02 15:20:00 34.03 kg/m2 Common [facility] oximetry 2021-06-02 15:20:00 97 % [facility] respiratory rate 2021-06-02 15:20:00 18 /min Comm on [facility] blood pressure 2021-06-02 15:20:00 134 mm[Hg] Common [facility] - systolic [facility] blood pressure 2021-06-02 15:20:00 72 mm[Hg] Common [facility] - diastolic [facility] height 2021-05-18 15:00:00 65.5 [in_i] [facility] weight 2021-05-18 15:00:00 212 [lb_av] [facility] temperature 2021-05-18 15:00:00 97 [degF] [facility] bmi 2021-05-18 15:00:00 34.74 kg/m2 [facility] oximetry 2021-05-18 15:00:00 98 % [facility] respiratory rate 2021-05-18 15:00:00 20 /min Comm on [facility] blood pressure 2021-05-18 15:00:00 130 mm[Hg] Common [facility] systolic [facility] blood pressure 2021-05-18 15:00:00 82 mm[Hg] Common [facility] diastolic [facility] Procedures Procedure Date / Time Performing Source Performed Clinician DNR 2022-04-04 [facility] of 05:01:00 Unassigned, No [facility] POCT GLUCOSE (AUTOMATED) 2022-03-24 Prakash Rodriguez rsity of 21:06:00 [facility] POCT GLUCOSE (AUTOMATED) 2022-03-24 [facility] 21:06:00 [facility] COLONOSCOPY (ENDO) 2022-03-24 Prakash Rodriguez [facility] of 18:38:21 [facility] COLONOSCOPY (ENDO) 2022-03-24 Prakash Rodriguez [facility] of 18:38:21 [facility] COLONOSCOPY 2022-03-24 Earnest Nunez [facility] of 18:31:00 [facility] POCT GLUCOSE (AUTOMATED) 2022-03-24 Prakash Rodriguez rsity of 13:30:00 [facility] POCT GLUCOSE (AUTOMATED) 2022-03-24 [facility] 13:30:00 [facility] POCT GLUCOSE (AUTOMATED) 2022-03-24 Prakash Rodriguez rsity of 13:30:00 [facility] CBC WITHOUT DIFF 2022-03-24 [facility] of 10:55:00 [facility] CBC WITHOUT DIFF 2022-03-24 [facility] of 10:55:00 [facility] CBC WITHOUT DIFF 2022-03-24 [place] of 10:55:00 [facility] MAGNESIUM 2022-03-24 [facility] of 09:28:00 [facility] BASIC METABOLIC PANEL (NA, K, CL, 2022-03-24 [facility] CO2, GLUCOSE, BUN, CREATININE, CA) 09:28:00 [facility] MAGNESIUM [facility]22[facility]03-[facility] BASIC METABOLIC PANEL (NA, K, CL, 2022-03-24 [facility] CO2, GLUCOSE, BUN, CREATININE, CA) 09:28:00 [facility] MAGNESIUM [facility]22[facility]03-[facility]:28[facility]00 [facility] BASIC METABOLIC PANEL (NA, K, CL, 2022-03-24 [facility] CO2, GLUCOSE, BUN, CREATININE, CA) 09:28:00 [facility] POCT GLUCOSE (AUTOMATED) 2022-03-24 Prakash Rodriguez rsity of 04:04:00 [facility] POCT GLUCOSE (AUTOMATED) 2022-03-24 Prakash Rodriguez rsity of 04:04:00 [facility] POCT GLUCOSE (AUTOMATED) 2022-03-24 Prakash Rodriguez Unive rsity of 04:04:00 [facility] POCT GLUCOSE (AUTOMATED) 2022-03-24 Prakash Rodriguez rsity of 01:54:00 [facility] POCT GLUCOSE (AUTOMATED) 2022-03-24 Prakash Rodrigueze rsity of 01:54:00 [facility] POCT GLUCOSE (AUTOMATED) 2022-03-24 Prakash Rodriguez rsity of 01:54:00 [facility] POCT GLUCOSE (AUTOMATED) 2022-03-23 Prakash Rodriguez rsity of 22:06:00 [facility] POCT GLUCOSE (AUTOMATED) 2022-03-23 Prakash Rodriguez rsity of 22:06:00 [facility] POCT GLUCOSE (AUTOMATED) 2022-03-23 Prakash Rodriguez rsity of 22:06:00 [facility] SURGICAL PATHOLOGY EXAM 2022-03-23 Gou, Earnest Collinstonny Univer sity of 14:36:00 [facility] SURGICAL PATHOLOGY EXAM 2022-03-23 Gou, Earnest Collinstonny Univer sity of 14:36:00 [facility] SURGICAL PATHOLOGY EXAM 2022-03-23 Gou, Earnest Dunntierney Univer sity of 14:36:00 [facility] ESOPHAGOGASTRODUODENOSCOPY 2022-03-23 Gou, Earnest Juvencio Uni versity of 14:09:00 [facility] ESOPHAGOGASTRODUODENOSCOPY 2022-03-23 Gou, Earnest Juvencio Uni versity of 14:09:00 [facility] EGD (ENDO) 2022-03-23 Prakash Rodriguez [facility] of 13:02:56 [facility] EGD (ENDO) 2022-03-23 Prakash Rodriguez [facility] of 13:02:56 [facility] EGD (ENDO) 2022-03-23 Prakash Rodriguez [facility] of 13:02:56 [facility] POCT GLUCOSE (AUTOMATED) 2022-03-23 [facility] Rodriguez [facility] of 12:56:00 [facility] POCT GLUCOSE (AUTOMATED) 2022-03-23 [facility] 12:56:00 [facility] POCT GLUCOSE (AUTOMATED) 2022-03-23 Prakash Rodriguez [facility] of 12:56:00 [facility] FERRITIN SERUM 2022-03-23 Jackson Spear [facility] of 10:21:00 [facility] BASIC METABOLIC PANEL (NA, K, CL, 2022-03-23 [facility] CO2, GLUCOSE, BUN, CREATININE, CA) 10:21:00 [facility] CBC WITH DIFF 2022-03-23 Courtney Moise [facility] of 10:21:00 [facility] ACTIVATED PARTIAL THRMPLAS CASSIE 2022-03-23 Courtney Moise [facility] of 10:21:00 [facility] FIBRINOGEN 2022-03-23 [facility] of 10:21:00 [facility] FERRITIN SERUM 2022-03-23 [facility] [facility] of 10:21:00 [facility] BASIC METABOLIC PANEL (NA, K, CL, 2022-03-23 [facility] CO2, GLUCOSE, BUN, CREATININE, CA) 10:21:00 [facility] CBC WITH DIFF 2022-03-23 [facility] of 10:21:00 [facility] ACTIVATED PARTIAL THRMPLAS CASSIE 2022-03-23 [facility] of 10:21:00 [facility] FIBRINOGEN 2022-03-23 [facility] of 10:21:00 [facility] FERRITIN SERUM 2022-03-23 [facility] BASIC METABOLIC PANEL (NA, K, CL, 2022-03-23 [facility] CO2, GLUCOSE, BUN, CREATININE, CA) 10:21:00 [facility] CBC WITH DIFF 2022-03-23 [facility] of 10:21:00 [facility] ACTIVATED PARTIAL THRMPLAS CASSIE 2022-03-23 [facility] of 10:21:00 [facility] FIBRINOGEN 2022-03-23 [facility] of 10:21:00 [facility] POCT GLUCOSE (AUTOMATED) 2022-03-23 Prakash Rodrigueze rsity of 02:06:00 [facility] POCT GLUCOSE (AUTOMATED) 2022-03-23 Prakash Rodriguez [facility] rsity of 02:06:00 [facility] POCT GLUCOSE (AUTOMATED) 2022-03-23 Prakash Rodriguez Unive rsity of 02:06:00 [facility] POCT GLUCOSE (AUTOMATED) 2022-03-23 Prakash Rodriguez Unive rsity of 01:28:00 [facility] POCT GLUCOSE (AUTOMATED) 2022-03-23 Prakash Rodriguez Unive rsity of 01:28:00 [facility] POCT GLUCOSE (AUTOMATED) 2022-03-23 Prakash Rodriguez Unive rsity of 01:28:00 [facility] POCT GLUCOSE (AUTOMATED) 2022-03-22 Prakash Rodriguez Unive rsity of 22:06:00 [facility] POCT GLUCOSE (AUTOMATED) 2022-03-22 Prakash Rodriguez [facility] rsity of 22:06:00 [facility] POCT GLUCOSE (AUTOMATED) 2022-03-22 [facility] of 22:06:00 [facility] HB ABO GROUPING 2022-03-22 [facility] of 20:28:00 [facility] HB ABO GROUPING 2022-03-22 Jovanna, [facility] of 20:28:00 [facility] HB ABO GROUPING 2022-03-22 [facility] of 20:28:00 [facility] VITAMIN B12, LEVEL 2022-03-22 [facility] of 17:58:00 [facility] FOLATE 2022-03-22 Jovanna, [facility] of 17:58:00 [facility] HEPATIC FUNCTION PANEL (34452) 2022-03-22 Shabbir Nugent niversity of (ALB,T.PRO,BILI 17:58:00 [place] [facility] T,BU/BC,ALT,AST,ALK PHOS) [place] BASIC METABOLIC PANEL (NA, K, CL, 2022-03-22 Jovanna [facility] of CO2, GLUCOSE, BUN, CREATININE, CA) 17:58:00 [facility] CBC WITH DIFF 2022-03-22 Jovanna [facility] of 17:58:00 [facility] VITAMIN B12, LEVEL 2022-03-22 Jovanna, [facility] of 17:58:00 [facility] FOLATE 2022-03-22 [facility] 17:58:00 [facility] HEPATIC FUNCTION PANEL (42147) 2022-03-22 Shabbir Nugent niversity of (ALB,T.PRO,BILI 17:58:00 [place] [facility] T,BU/BC,ALT,AST,ALK PHOS) [place] BASIC METABOLIC PANEL (NA, K, CL, 2022-03-22 Jovanna [facility] CO2, GLUCOSE, BUN, CREATININE, CA) 17:58:00 [facility] CBC WITH DIFF 2022-03-22 Jovanna [facility] of 17:58:00 [facility] VITAMIN B12, LEVEL 2022-03-22 Jovanna [facility] of 17:58:00 [facility] FOLATE 2022-03-22 J[facility]anna [facility] 17:58:00 [facility] HEPATIC FUNCTION PANEL ([id number]) 2022-03-22 Shabbir Nugent niversity of (ALB,T.PRO,BILI 17:58:00 [facility],BU/BC,ALT,AST,ALK PHOS) [place] BASIC METABOLIC PANEL (NA, K, CL, 2022-03-22 [facility] of CO2, GLUCOSE, BUN, CREATININE, CA) 17:58:00 [facility] CBC WITH DIFF 2022-03-22 Jovanna, [facility] 17:58:00 [facility] HOSPITAL ADMISSION 2022-03-22 [facility] 05:01:00 Unassigned, No [facility] ADMISSION 2022-03-22 [facility] 05:01:00 Unassigned, No [facility] ADMISSION 2022-03-22 [facility] 05:01:00 Unassigned, No [facility] [id number] 2021-10-17 [facility] 00:00:00 [facility] Encounters Start End Encounter Admission Attending Care Care Encounter Source Date/Time Date/Time Type Type Clinicians Facility Department ID 2022-02-16 Outpatient Triana, STLMLC STLC [id number] Common 13:42:01 Skylar [facility] 2022-02-07 Outpatient Triana, STLMLC STLC [id number] Common 08:29:00 Skylar [facility] 2021-12-27 Outpatient Reena [facility]SON [facility] [id number] Univers 09:49:04 MEHRDAD Pittman of [facility] 2021-12-08 Outpatient Triana, STLMLC STLMLC [id number] Common 16:43:00 Skylar [facility] 2021-12-05 Outpatient Triana, STLMLC STLMLC [id number] Common 14:56:01 Skylar [facility] 2021-11-04 Outpatient Triana, STLMLC STLC [id number] Common 10:22:00 Skylar [facility] 2021-10-26 Outpatient Triana, STLMLC STLMLC [id number] Common 16:48:01 Skylar [facility] 2021-10-21 Outpatient Triana, STLMLC STLMLC [id number] Common 13:18:01 Skylar [facility] 2021-10-18 Outpatient Triana, STLMLC STLMLC [id number] Common 13:27:02 Skylar [facility] 2021-08-31 Outpatient Triana, STLMLC STLMLC [id number] Common 14:40:32 Skylar [facility] 2021-08-31 Outpatient Triana, STLMLC STLMLC [id number] Common 14:27:35 Skylar [facility] 2021-08-31 Outpatient Triana, STLMLC STLMLC [id number] Common 14:13:22 Skylar [facility] 2021-08-31 Outpatient Triana, STLMLC STLMLC [id number] Common 14:05:40 Skylar [facility] 2021-08-31 Outpatient [place], STLMLC STLMLC [id number] Common 14:01:51 Terry [id number] [facility] 2021-08-31 Outpatient [place], STLMLC STLMLC [id number] Common 14:00:44 Terry [id number] [facility] 2021-08-31 Outpatient [place], STLMLC STLMLC [id number] Common 13:48:34 Terry [id number] [facility] 2021-08-31 Outpatient [place], STLMLC STLMLC [id number] Common 13:28:14 Terry [id number] [facility] 2021-08-31 Outpatient [place], STLMLC STLMLC [id number] Common 12:43:59 Terry [id number] [facility] 2021-08-31 Outpatient [place], STLMLC STLMLC [id number] Common 12:43:30 Terry [id number] [facility] 2021-08-31 Outpatient [place], STLMLC STLMLC [id number] Common 12:40:36 Terry [id number] [facility] 2021-08-31 Outpatient [place], STLMLC STLMLC [id number] Common 11:45:41 Terry [id number] [facility] 2021-08-31 Outpatient [place], STLMLC STLMLC [id number] Common 11:36:44 Terry [id number] [facility] 2021-08-31 Outpatient [place], STLMLC STLMLC [id number] Common 11:33:43 Terry [id number] [facility] 2021-08-31 Outpatient [place], STLMLC STLMLC [id number] Common 11:29:50 Terry [id number] [facility] 2021-08-31 Outpatient [place], STLMLC STLMLC [id number] Common 11:25:13 Terry [id number] [facility] 2021-08-31 Outpatient [place], STLMLC STLMLC [id number] Common 11:19:14 Terry [id number] [facility] 2021-08-31 Outpatient [place], STLMLC STLMLC [id number] Common 11:12:16 Terry [id number] [facility] 2021-08-31 Outpatient Millender, STLMLC STLMLC [id number] Common 11:09:26 Sheryl [id number] [facility] 2021-08-31 Outpatient [place], STLMLC STLMLC [id number] Common 11:07:41 Terry [id number] [facility] 2021-08-31 Outpatient [place], STLMLC STLMLC [id number] Common 11:07:07 Terry [id number] [facility] 2021-08-31 Outpatient [place], STLMLC STLMLC [id number] Common 10:58:45 Terry [id number] [facility] 2021-06-07 Emergency [facility] [id number] Univers 03:36:58 ity [facility] 2021-06-07 Outpatient R SAMINEILRAVINDER [facility] NING [id number] Univers 00:03:36 E, MEHRDAD ity [facility] 2021-06-06 Emergency [facility] [id number] Univers 01:28:49 ity of [facility] 2021-06-04 Emergency [facility] [id number] Univers 13:53:54 ity of [facility] 2021-06-04 Outpatient [facility] GATITO [id number] Univers 00:26:15 E, MEHRDAD itkatrina [facility] 2022-05-24 2022-05-24 Outpatient R TARA [facility] [id number] Univers 15:08:06 23:59:00 KUSUM itkatrina [facility] 2022-05-24 2022-05-24 [facility] 1.2.840.114 [id number] Univers 15:00:00 15:49:56 Visit [facility] [id number] it y of [place] 4.2.7.2.686 Solomon as SANDY?BLEA [id number] [address] OFFICE [facility] 2022-05-11 2022-05-11 Telephone Kim [facility] 1.2.840.114 [id number] Univers 00:00:00 00:00:00 [facility] 350.1.13.10 it y of [place] 4.2.7.2.686 Solomon as SANDY?BLEA [id number] [address] OFFICE [facility] 2022-05-03 2022-05-03 OFFICE [facility] [id number] Co mmon 00:00:00 00:00:00 VISIT Spirit ESTAB PT - CHI LEVEL 4 [facility] 2022-04-04 2022-04-04 Orders Doctor ABISAI 1.2.840.114 [id number] Univers 00:00:00 00:00:00 Only Unassigned, BAR [id number] ity of [place] [facility] 4.2.7.2.686 Solomon as [id number] [address] 2022-03-27 2022-03-27 Transition DAVE Lowery 1.2.840.114 [id number] Univers 00:00:00 00:00:00 of Care Karen Dmitry LOPEZ 350.1.13.[address] [id number] [facility] [address] 2022-03-22 2022-03-24 Outpatient PRAKASH RODRIGUEZ [facility] [id number] Univers 10:30:00 20:18:00 ity of [facility] 2022-03-22 2022-03-24 [facility] P[facility] Rodriguez 1.2.840.114 [id number] Univers 10:30:00 20:18:00 Encounter Vi BAR 350.1.13.10 ity [facility] 4.2.7.2.686 Solomon as [id number] [facility] [address] 2022-03-24 2022-03-24 Surgery [facility] 1.2.840.114 [id number] Univers 14:05:00 15:11:00 [place] ICAL 350.1.13.10 it y of [place] 4.2.7.2.686 Solomon as BLDG [id number] [facility] 020 [place] 2022-03-23 2022-03-23 Surgery [facility] 1.2.840.114 [id number] Univers 09:00:00 09:43:00 Dennisantonias ICAL 350.1.13.10 it y of [place] 4.2.7.2.686 Solomon as BLDG [id number] [facility] [address] 2022-03-08 2022-03-08 OFFICE [facility] [id number] Co mmon 00:00:00 00:00:00 VISIT Spirit ESTAB PT - CHI LEVEL 4 [facility] 2022-02-21 2022-02-21 Outpatient Reena PACHECO [facility] [id number] Univers 14:58:27 23:59:00 [facility] 2022-02-21 2022-02-21 Outpatient Reena PACHECO [facility] [id number] Univers 14:00:00 15:28:39 [facility] 2022-02-21 2022-02-21 [facility] 1.2.840.114 [id number] Univers 14:00:00 15:28:39 Visit Kusum [facility] 350.1.13.10 it y of [place] 4.2.7.2.686 Solomon as SANDY?BLEA [id number] Ms shabbir FUNEZ [address] [facility] OFFICE [facility] 2022-02-09 2022-02-09 [facility] [id number] Univers 16:00:00 16:00:00 KUSUM katrina [facility] 2022-01-31 2022-01-31 (TEL) STLC STLMLC [id number] Co mmon 00:00:00 00:00:00 [facility] 2022-01-20 2022-01-20 Outpatient R GARETT [facility] [id number] Univers 18:06:07 23:59:00 ROXY [facility] 2022-01-20 2022-01-20 [facility] [id number] [id number] Univers 18:06:07 23:59:00 Encounter [facility] [id number] ity of [place] 4.2.7.2.686 Solomon as SANDY?BLEA [id number] Ms shabbir FUNEZ [address] [facility] OFFICE [facility] 2022-01-20 2022-01-20 [facility]gent [facility] 1.2.840.114 [id number] Univers 18:00:00 18:15:46 [facility] 350.1.13.10 ity of [place] 4.2.7.2.686 Solomon as SANDY?BLEA [id number] Me shabbir FUNEZ [address] [facility] OFFICE [facility] 2022-01-13 2022-01-13 (TEL) STLMLC STLMLC [id number] Co mmon 00:00:00 00:00:00 [facility] 2022-01-12 2022-01-12 (TEL) STLMLC STLMLC [id number] Co mmon 00:00:00 00:00:00 [facility] 2022-01-11 2022-01-11 Outpatient R [facility] [id number] Univers 07:32:00 09:32:00 MEHRDAD Pittman [facility] 2022-01-11 2022-01-11 Hospital [facility] 1.2.840.114 [id number] Univers 07:32:00 09:32:00 Encounter Mehrdad pittman [place] 350.1.13.10 it[place] [facility] [place] [id number] [facility] [address] 2022-01-11 2022-01-11 Surgery [facility] 1.2.840.114 [id number] Univers 08:20:00 08:56:00 Mehrdad pittman 350.1.13.10 ity [facility] [place] [id number] [facility] [address] 2022-01-10 2022-01-10 Laboratory Only, Adc Test [facility] 1.2.840. 114 [id number] Univers 08:45:00 09:00:00 Only Mehrdad Reyna 350.1.1 3.10 ity of [facility] [place] [id number] [facility] [address] 2022-01-10 2022-01-10 Outpatient R [facility] [id number] Univers 08:45:00 08:45:00 MEHRDAD Pittman [facility] 2022-01-10 2022-01-10 Orders Doctor BARONE 1.2.840.114 [id number] Univers 00:00:00 00:00:00 Only Unassigned, BAR 350.1.13.10 ity of [place] [facility] 4.2.7.2.686 Solomon as [id number] [facility] [address] 2021-12-07 2021-12-07 OFFICE [facility] [id number] Co mmon 00:00:00 00:00:00 VISIT Spirit ESTAB PT - CHI LEVEL 4 [facility] 2021-11-24 2021-11-24 (TEL) STLMLC STLMLC [id number] Co mmon 00:00:00 00:00:00 [facility] 2021-11-11 2021-11-11 (TEL) STLMLC STLMLC [id number] Co mmon 00:00:00 00:00:00 [facility] 2021-11-08 2021-11-08 OFFICE STLMLC STLMLC [id number] Co mmon 00:00:00 00:00:[address] 2021-11-03 2021-11-03 NON-BILLAB STLMLC STLMLC [id number] Common 00:00:00 00:00:00 LE VISIT [facility] 2021-10-20 2021-10-20 NON-BILLAB STLMLC STLMLC [id number] Common 00:00:00 00:00:00 LE VISIT [facility] 2021-10-17 2021-10-18 Inpatient EM Ilstefani, [facility] [id number] [facility] 14:18:00 13:18:00 [place] 29 [facility] are [facility] 2021-10-13 2021-10-13 (TEL) STLMLC STLMLC [id number] Co mmon 00:00:00 00:00:00 [facility] 2021-10-11 2021-10-11 OFFICE STLMLC STLMLC [id number] Co mmon 00:00:00 00:00:[address] 2021-09-12 2021-09-12 (TEL) STLMLC STLMLC [id number] Co mmon 00:00:00 00:00:00 [facility] 2021-09-02 2021-09-02 (TEL) STLMLC STLMLC [id number] Co mmon 00:00:00 00:00:00 [facility] 2021-09-02 2021-09-02 (TEL) STLMLC STLMLC [id number] Co mmon 00:00:00 00:00:00 [facility] 2021-09-02 2021-09-02 (TEL) STLMLC STLMLC [id number] Co mmon 00:00:00 00:00:00 [facility]I [facility] 2021-08-31 2021-08-31 OFFICE STLMLC STLMLC [id number] Co mmon 00:00:00 00:00:00 VISIT Spirit ESTAB PT - CHI LEVEL 4 [facility] 2021-08-25 2021-08-25 (TEL) STLMLC STLMLC [id number] Co mmon 00:00:00 00:00:00 Spirit - CHI [facility] 2021-08-23 2021-08-23 OFFICE STLMLC STLMLC [id number] Co mmon 00:00:00 00:00:00 VISIT [facility] PT - CHI LEVEL 4 [facility] 2021-08-16 2021-08-16 OL DIG E/M STLMLC STLMLC [id number] Common 00:00:00 00:00:00 [facility] 11-[address] [facility] 2021-08-15 2021-08-15 (TEL) STLMLC STLMLC [id number] Co mmon 00:00:00 00:00:00 [facility] 2021-08-02 2021-08-02 Emergency X FLASH HEWITT ERT [id number] Univers 12:57:00 18:07:00 KATTY perez [facility] 2021-08-02 2021-08-02 Emergency Lavell De Leon [facility] 1.2.840. 114 [id number] Univers 12:57:00 18:07:00 Katty Hewitt [place] 350.1.13.10 itkatrina [facility] 4.2.7.2.686 [facility] [id number] [facility] [address] 2021-07-27 2021-07-27 (TEL) STLMLC STLMLC [id number] Co mmon 00:00:00 00:00:00 [facility] 2021-07-07 2021-07-07 (TEL) STLMLC STLMLC [id number] Co mmon 00:00:00 00:00:00 [facility] 2021-07-06 2021-07-06 OFFICE STLMLC STLMLC [id number] Co mmon 00:00:00 00:00:00 VISIT Spirit ESTAB PT - CHI LEVEL 4 [facility] 2021-06-28 2021-06-28 Outpatient MHIE MHIE [id number] Memoria 16:00:00 16:00:00 30 l [place] 2021-06-28 2021-06-28 Outpatient MHIE MHIE [id number] Memoria 16:00:00 16:00:00 30 l [place] 2021-06-22 2021-06-22 OFFICE STLMLC STLMLC [id number] Co mmon 00:00:00 00:00:00 VISIT Spirit ESTAB PT - CHI LEVEL 4 [facility] 2021-06-02 2021-06-02 OFFICE STLMLC STLMLC [id number] Co mmon 00:00:00 00:00:00 VISIT Spirit ESTAB PT - CHI LEVEL 4 [facility] 2021-05-24 2021-05-24 Outpatient MHIE MHIE [id number] Memoria 15:30:00 15:30:00 29 l [place] 2021-05-24 2021-05-24 Outpatient MHIE MHIE [id number] Memoria 15:30:00 15:30:00 29 l [place] 2021-05-18 2021-05-18 SUB ANNUAL STLMLC STLMLC [id number] Common 00:00:00 00:00:00 MCR Spirit WELLNESS - CHI VISIT [facility] 2021-05-09 2021-05-09 Emergency [facility] [id number] [id number] [facility] 10:58:00 17:26:00 Lavell Thomason 350.1.13.10 i ty of [place] 4.2.7.2.686 [facility] [id number] [place] [address] [address] 2021-05-04 2021-05-04 [facility] 1.2.840.114 [id number] Univers 11:54:00 14:35:00 Mehrdad Guaman 350.1.13.10 ity of [place] Surgical [id number] [facility] [address] 2021-05-04 2021-05-04 Surgery Charafeddin [facility] 1.2.840.114 [id number] Univers 13:25:00 13:57:00 Mehrdad pittman 350.1.13.10 ity of [place] [id number] [facility] 020 [address] 2021-05-03 2021-05-03 Laboratory Only, Adc Test [facility] 1.2.840. 114 [id number] Univers 08:07:19 08:22:19 Only Mehrdad Reyna 350.1.1 3.10 ity of [place] [id number] [facility] [address] 2021-05-03 2021-05-03 [facility] [id number] Univers 07:45:00 07:45:00 MEHRDAD Pittman o f [facility] 2021-05-03 2021-05-03 Orders Doctor ABISAI 1.2.840.114 [id number] Univers 00:00:00 00:00:00 Only Unassigned, BAR 350.1.13.10 ity of [place] [facility] 4.2.7.2.686 Solomon as [id number] [facility] [address] 2021-04-20 2021-04-20 Outpatient STLMLC STLMLC [id number] Common 00:00:00 00:00:00 [facility] 2021-03-10 2021-03-10 Hospital Radiology [facility] 1.2.840.114 [id number] 10:47:03 23:59:00 Encounter [place] 350.1.13.10 [place] 4.2.7.2.686 [place] [id number] 2021-03-10 2021-03-10 Hospital Radiology [facility] 1.2.840.114 [id number] 10:45:00 10:46:00 Encounter [place] 350.1.13.10 [place] 4.2.7.2.686 [place] [id number] 807 2021-03-10 2021-03-10 Outpatient R RADIOLOGY [facility] [id number] Univers 00:00:00 [facility] 2021-03-08 2021-03-08 Urgent Celso [facility] 1.2.840.114 [id number] 20:00:13 20:20:13 Care [facility] 350.1.13.10 [place] 4.2.7.2.686 Professio [id number] nal [address] 2021-03-08 2021-03-08 Outpatient R GREEN, [facility] [id number] Univers 20:00:00 20:00:00 LEON [facility] 2021-02-24 2021-02-24 Outpatient STLMLC STLMLC [id number] Common 00:00:00 00:00:00 [facility] 2021-02-19 2021-02-19 Outpatient STLMLC STLMLC [id number] Common 00:00:00 00:00:00 [facility] 2021-02-18 2021-02-18 Outpatient STLMLC STLMLC [id number] Common 00:00:00 00:00:00 [facility] 2021-02-16 2021-02-16 Outpatient STLMLC STLMLC [id number] Common 00:00:00 00:00:00 [facility] 2021-01-31 2021-01-31 Transition Dave Lowery 1.2.840.114 [id number] 00:00:00 00:00:00 of Care Karen Lopez 350.1.13.10 [place] 4.2.7.2.686 [id number] 2021-01-18 2021-01-28 [facility] J[facility] Davila [facility] 1.2.840.1 14 [id number] 21:13:00 14:30:00 Encounter Mauro Chinchilla 350.1.13.10 [place] 4.2.7.2.686 [place] [id number] 2021-01-25 2021-01-25 Anesthesia Tai Avalos [facility] 1.2.840.11 [id number] 08:49:00 09:30:00 Event Randell López 350.1.13.10 [place] 4.2.7.2.686 Surgical [id number] [place] 020 2021-01-25 2021-01-25 Surgery [facility] 1.2.840.114 [id number] 08:33:00 09:08:00 Katelin 350.1.13.10 [place] 4.2.7.2.686 Surgical [id number] [place] 020 2021-01-19 2021-01-19 Outpatient STLMLC STLMLC [id number] Common 00:00:00 00:00:00 [facility] 2021-01-14 2021-01-14 Outpatient MHIE MHIE [id number] Memoria 13:30:00 13:30:00 28 dmitry [place] 2021-01-14 2021-01-14 Outpatient MHIE MHIE [id number] Memoria 13:30:00 13:30:00 28 dmitry FunkTanmay 2020-12-31 2020-12-31 Outpatient STLMLC STLMLC [id number] Common 00:00:00 00:00:00 [facility] 2020-12-30 2020-12-30 Outpatient STLMLC STLMLC [id number] Common 00:00:00 00:00:00 [facility] 2020-12-20 2020-12-20 Outpatient STLMLC STLMLC [id number] Common 00:00:00 00:00:00 [facility] 2020-12-08 2020-12-08 Telephone Kim [facility] [id number] [id number] 00:00:00 00:00:00 [facility] [id number] Surgical 4.2.7.2.686 Specialti [id number] es [address] [place] 2020-12-07 2020-12-07 Orders Doctor BARONE [id number] 00:00:00 00:00:00 Only Unassigned, BAR [id number] Nimrod [facility] 4.2.7.2.686 [id number] 2020-12-06 2020-12-06 [facility] [id number] 15:09:54 15:49:09 Visit [facility] [id number] Surgical 4.2.7.2.686 Special [id number] es 198 [place] 2020-12-06 2020-12-06 [id number] Univers 15:00:00 15:00:00 [facility] 2020-11-26 2020-11-26 [facility] [id number] Univers 09:30:00 09:30:00 [facility] 2020-11-24 2020-11-24 [facility] [id number] Univers 09:30:00 09:30:00 [facility] 2020-11-16 2020-11-16 Outpatient STLMLC STLMLC [id number] Common 00:00:00 00:00:00 [facility] 2020-11-11 2020-11-11 [facility] [id number] Univers 11:15:00 11:15:00 [facility] 2020-11-09 2020-11-09 [facility] [id number] Univers 13:45:00 13:45:00 [facility] 2020-11-09 2020-11-09 [facility] [id number] Univers 00:00:00 00:00:00 [facility] 2020-11-08 2020-11-08 [facility] [id number] Univers 00:00:00 00:00:00 [facility] 2020-11-03 2020-11-03 Outpatient STLMLC STLMLC [id number] Common 00:00:00 00:00:00 [facility] 2020-10-25 2020-10-25 Outpatient STLMLC STLMLC [id number] Common 00:00:00 00:00:00 [facility] 2020-10-22 2020-10-22 Outpatient STLMLC STLMLC [id number] Common 00:00:00 00:00:00 [facility] 2020-10-20 2020-10-20 Outpatient STLMLC STLMLC [id number] Common 00:00:00 00:00:00 [facility] 2020-10-14 2020-10-14 Outpatient MHIE MHIE [id number] Memoria 15:00:00 15:00:00 [place] 2020-10-14 2020-10-14 Outpatient MHIE MHIE [id number] Memoria 15:00:00 15:00:00 27 l [place] 2020-10-14 2020-10-14 Outpatient MHIE MHIE [id number] Memoria 14:15:00 14:15:00 25 [facility] 2020-10-14 2020-10-14 Outpatient MHIE MHIE [id number] Memoria 14:15:00 14:15:00 25 [facility] 2020-10-12 2020-10-12 Outpatient STLMLC STLMLC [id number] Common 00:00:00 00:00:00 [facility] 2020-09-15 2020-09-15 Outpatient STLMLC STLMLC [id number] Common 00:00:00 00:00:00 [facility] 2020-09-10 2020-09-10 Outpatient Reena JORDAN [facility] [id number] [facility] 19:40:00 19:40:00 AMANDA vincent [facility] 2020-08-24 2020-08-24 Outpatient MHIE MHIE [id number] Memoria 13:45:00 13:45:00 26 [place] 2020-08-24 2020-08-24 Outpatient MHIE MHIE [id number] Memoria 13:45:00 13:45:00 26 l [place] 2020-07-22 2020-07-22 Outpatient MHIE MHIE [id number] Memoria 14:30:00 14:30:00 24 l Tan[place] 2020-07-22 2020-07-22 Outpatient MHIE MHIE [id number] Memoria 14:30:00 14:30:00 24 l [place] 2020-07-12 2020-07-12 Outpatient STLMLC STLMLC [id number] Common 00:00:00 00:00:00 [facility] 2020-06-11 2020-06-11 Outpatient STLMLC STLMLC [id number] Common 00:00:00 00:00:00 [facility] 2020-06-01 2020-06-01 Outpatient R MINH [facility] [id number] Univers 11:45:00 11:45:00 MEHRDAD Pittman [facility] 2020-05-26 2020-05-26 Outpatient STLMLC STLMLC [id number] Common 00:00:00 00:00:00 [facility] 2020-05-11 2020-05-11 Outpatient STLMLC STLMLC [id number] Common 00:00:00 00:00:00 [facility] 2020-04-16 2020-04-16 [facility] [id number] Common 15:00:00 15:00:00 [facility] 2020-04-16 2020-04-16 Outpatient STLMLC STLMLC [id number] Common 00:00:00 00:00:00 [facility] 2020-04-13 2020-04-13 [facility] [id number] Common 08:51:00 08:51:00 [facility] 2020-04-08 2020-04-08 Outpatient MHIE MHIE [id number] Memoria 13:45:00 13:45:00 22 l [place] 2020-04-08 2020-04-08 Outpatient MHIE MHIE [id number] Memoria 13:45:00 13:45:00 22 l [place] 2020-03-18 2020-03-18 Outpatient MHIE MHIE [id number] Memoria 15:00:00 15:00:00 19 l [place] 2020-03-18 2020-03-18 Outpatient MHIE MHIE [id number] Memoria 15:00:00 15:00:00 21 l [place] 2020-03-18 2020-03-18 Outpatient MHIE MHIE [id number] Memoria 15:00:00 15:00:00 20 l [place] 2020-03-18 2020-03-18 Outpatient MHIE MHIE [id number] Memoria 15:00:00 15:00:00 19 l [place] 2020-03-18 2020-03-18 Outpatient MHIE MHIE [id number] Memoria 15:00:00 15:00:00 21 l [place] 2020-03-18 2020-03-18 Outpatient MHIE MHIE [id number] Memoria 15:00:00 15:00:00 20 l [place] 2020-03-11 2020-03-11 Outpatient MHIE MHIE [id number] Memoria 16:15:00 16:15:00 23 l [place] 2020-03-11 2020-03-11 Outpatient MHIE MHIE [id number] Memoria 16:15:00 16:15:00 23 l [place] 2020-02-27 2020-02-27 [facility] [id number] Common 14:00:00 14:00:00 [facility] [address] [facility] 2020-02-23 2020-02-23 [facility] [id number] Common 13:12:00 13:12:[address] [facility] [address] [facility] 2020-02-18 2020-02-18 [facility] [id number] Common 09:08:00 09:08:[address] [facility] [address] [address] [facility] 2020-02-16 2020-02-16 [facility] [id number] Common 18:34:00 18:34:[address] [facility] 2020-02-11 2020-02-11 [facility] [id number] Common 13:20:00 13:20:[address] [facility] 2020-01-06 2020-01-06 [facility] [id number] Common 18:46:00 18:46:[address] [facility] 2019-12-22 2019-12-22 [facility] [id number] Common 14:00:00 14:00:00 [facility] 2019-12-17 2019-12-17 Outpatient MHIE MHIE [id number] Memoria 15:45:00 15:45:00 17 l [place] 2019-12-17 2019-12-17 Outpatient MHIE MHIE [id number] Memoria 15:45:00 15:45:00 17 l [place] 2019-12-05 2019-12-05 Outpatient MHIE MHIE [id number] Memoria 16:00:00 16:00:00 18 l [place] 2019-12-05 2019-12-05 Outpatient MHIE MHIE [id number] Memoria 16:00:00 16:00:00 18 l [place] 2019-12-05 2019-12-05 [facility] [id number] Common 10:40:00 10:40:00 [facility] it [facility] 2019-11-28 2019-11-28 [facility] [id number] Common 11:00:00 11:00:00 [facility] it [facility] 2019-11-19 2019-11-19 Outpatient MHIE MHIE [id number] Memoria 08:15:00 08:15:00 16 l [place] 2019-11-19 2019-11-19 Outpatient MHIE MHIE [id number] Memoria 08:15:00 08:15:00 16 l [place] 2019-11-18 2019-11-18 Outpatient MHIE MHIE [id number] Memoria 10:15:00 10:15:00 15 l [place] 2019-11-18 2019-11-18 Outpatient MHIE MHIE [id number] Memoria 10:15:00 10:15:00 15 l [place] 2019-11-10 2019-11-10 [facility] [id number] Common 15:55:00 15:55:00 [facility] it [facility] 2019-11-05 2019-11-05 [facility] [id number] Common 18:33:00 18:33:[address] [facility] [address] [facility] 2019-10-28 2019-10-28 [facility] [id number] Common 11:08:00 11:08:[address] [facility] [address] [facility] 2019-10-27 2019-10-27 [facility] [id number] Common 14:31:00 14:31:[address] [facility] [address] [facility] 2019-10-13 2019-10-13 Out[facility] [id number] Common 09:00:00 09:00:00 [address] [facility] [address] [facility] 2019-09-29 2019-09-29 [facility] [id number] Common 11:30:00 11:30:[address] [facility] [address] [facility] 2019-09-26 2019-09-26 Outpatient MHIE MHIE [id number] Memoria 09:15:00 09:15:00 14 l [place] 2019-09-26 2019-09-26 Outpatient MHIE MHIE [id number] Memoria 09:15:00 09:15:00 14 l [place] 2019-09-18 2019-09-18 [facility] [id number] Common 14:40:00 14:40:[address] [facility] [address] [facility] 2019-08-15 2019-08-15 Outpatient MHIE MHIE [id number] Memoria 13:30:00 13:30:00 13 [facility] 2019-08-15 2019-08-15 Outpatient MHIE MHIE [id number] Memoria 13:30:00 13:30:00 13 [facility] 2019-08-14 2019-08-14 [facility] [id number] Common 14:18:00 14:18:[address] [facility] 2019-08-13 2019-08-13 [facility] [id number] Common 11:00:00 11:00:00 [address] [facility] [address] [facility] 2019-07-18 2019-07-18 [facility] [id number] Common 09:00:00 09:00:[address] [facility] 2019-07-08 2019-07-08 Outpatient MHIE THELMAIE [id number] Memoria 10:00:00 10:00:00 11 dmitry Donato 2019-07-08 2019-07-08 Outpatient MHIE MHIE [id number] Memoria 10:00:00 10:00:00 11 dmitry Donato 2019-06-23 2019-06-23 [facility] [id number] Common 10:40:00 10:40:[address] [facility] 2019-06-09 2019-06-09 [facility] [id number] Common 12:17:00 12:17:[address] [facility] [address] [facility] 2019-06-09 2019-06-09 Out[facility] [id number] Common 08:20:00 08:20:[address] [facility] [address] [facility] 2019-05-30 2019-05-30 [facility] [id number] Common 08:00:00 08:00:[address] [facility] [address] [facility] 2019-05-23 2019-05-23 Outpatient MHIE MHIE [id number] Memoria 09:15:00 09:15:00 10 dmitry Donato 2019-05-23 2019-05-23 Outpatient MHIE MHIE [id number] Memoria 09:15:00 09:15:00 10 dmitry Donato 2019-05-16 2019-05-16 Outpatient MHIE MHIE [id number] Memoria 08:30:00 08:30:00 12 dmitry Donato 2019-05-16 2019-05-16 Outpatient MHIE MHIE [id number] Memoria 08:30:00 08:30:00 12 dmitry Donato 2019-04-30 2019-04-30 Outpatient MHIE MHIE [id number] Memoria 09:15:00 09:15:00 09 dmitry Donato 2019-04-30 2019-04-30 Outpatient MHIE THELMAIE [id number] Memoria 09:15:00 09:15:00 09 dmitry [place] 2019-04-04 2019-04-04 Outpatient MHIE TONIA [id number] Memoria 09:30:00 09:30:00 08 dimtry Tan[place] 2019-04-04 2019-04-04 Outpatient MHIE TONIA [id number] Memoria 09:30:00 09:30:00 08 dmitry Tanmay 2019-04-03 2019-04-03 [facility] [id number] Common 09:00:00 09:00:00 [facility] 2019-03-24 2019-03-24 [facility] [id number] Common 10:15:00 10:15:00 t Specialty/U Sp coretta Specialty rology [facility] 2019-03-04 2019-03-04 [facility] [id number] Common 11:00:00 11:00:00 t Specialty/U Sp coretta Specialty rology - [facility] 2019-02-21 2019-02-21 Out[facility] [id number] Common 13:45:00 13:45:00 t Specialty/U Sp coretta Specialty rology - [facility] 2019-02-18 2019-02-18 Out[facility] [id number] Common 15:42:00 15:42:00 [facility] it Road [facility] 2019-02-11 2019-02-11 Out[facility] [id number] Common 13:20:00 13:20:00 [facility] it Road [facility] 2018-12-27 2018-12-27 Outpatient TONIA RANDALL [id number] Memoria 09:30:00 09:30:00 07 dmitry Donato 2018-12-27 2018-12-27 Outpatient MHMAXIMO RANDALL [id number] Memoria 09:30:00 09:30:00 07 dmitry Donato 2018-11-21 2018-11-21 Outpatient MHIE MHIE [id number] Memoria 15:00:00 15:00:00 06 dmitry Donato 2018-11-21 2018-11-21 Outpatient MHIE MHIE [id number] Memoria 15:00:00 15:00:00 06 dmitry Donato 2018-11-11 2018-11-11 [facility] [id number] Common 09:20:00 09:20:00 t [facility] it Road [facility] 2018-10-01 2018-10-01 Out[facility] [id number] Common 15:30:00 15:30:00 [facility] it Road [facility] 2018-09-06 2018-09-06 Outpatient [facility] [id number] Common 10:00:00 10:00:00 [facility] it Road [facility] 2018-08-22 2018-08-22 Outpatient MHIE MHIE [id number] Memoria 15:15:00 15:15:00 05 dmitry Donato 2018-08-22 2018-08-22 Outpatient MHIE MHIE [id number] Memoria 15:15:00 15:15:00 05 dmitry Donato 2018-06-13 2018-06-13 Outpatient MHIE MHIE [id number] Memoria 14:00:00 14:00:00 04 dmitry Donato 2018-06-13 2018-06-13 Outpatient MHIE MHIE [id number] Memoria 14:00:00 14:00:00 04 dmitry Donato 2018-05-21 2018-05-21 [facility] [id number] Common 08:37:00 08:37:00 t [facility] it Road [facility] 2018-05-09 2018-05-09 Out[facility] [id number] Common 08:30:00 08:30:00 t [facility] it Road [facility] 2018-03-20 2018-03-20 Outpatient MHIE MHIE [id number] Memoria 10:45:00 10:45:00 02 dmitry Donato 2018-03-20 2018-03-20 Outpatient TONIA RANDALL [id number] Memoria 10:45:00 10:45:00 02 dmitry Donato 2018-03-13 2018-03-13 Outpatient TONIA RANDALL [id number] Memoria 14:00:00 14:00:00 03 dmitry Donato 2018-03-13 2018-03-13 Outpatient TONIA RANDALL [id number] Memoria 14:00:00 14:00:00 03 dmitry Donato 2017-11-14 2017-11-14 Outpatient TONIA RANDALL [id number] Memoria 10:15:00 10:15:00 01 dmitry Donato 2017-11-14 2017-11-14 Outpatient TONIA RANDALL [id number] Memoria 10:15:00 10:15:00 dmitry Donato Results Test Description Test Time Test Comments Results Result Comments Source POCT GLUCOSE (AUTOMATED) 2022-03-24 21:07:00 Test Item Value Reference Range Interpretation Comme nts POCT GLU (test code = 0321192863) 86 mg/dL 70-110 Lab Interpretation (test code = 02290-1) [facility] 21:07:00 Test Item Value Reference Range Interpretation Comments POCT GLU (test code = 3927618305) 86 mg/dL 70-110 Lab Interpretation (test code = Normal 88350-1) [facility] [id number] 16:43:01 Test Item Value Reference Range Interpretation Comments Case Report (test Surgical Pathology ? ? ? code = 1258612400) ?Case: [id number] ? Authorizing Provider: ?Eanrest Nunez MD ? ? ?Collected: ? 03/23/2022 0936 ?Ordering Location: ? ? GI Endoscopy OR Department Received: ?03/23/2022 1143 ?Pathologist: ? Luisana Willard MD PHD ?Specimen: ? ?STOMACH, 1. Antral erythermia biopsy, eval for H. Pylori and intestinal metaplasia ? Final Diagnosis c9jicACdKTMsp9ifNGQpyRIdD (test code = zEwMzNcZnRuYmpcdWMxIHtccn [id number]) AyYSyprAmmQJDpWVRlCD1jbOu flXo8aWumZYOpupC6gZLwUHfp h5qcDVL4o3rsilwgPIVoNJjhJ u3rxVNdgQfqQlCbNBEiJVz2rR 38MQYsrE7itLGfYKq0WCRzfXQ yfhCcSuVmJCTpiFWthPB0ICAl MG1wapanCKkrLIgsNORdbhD4V LRvqWKmC6CpDOVxRO9mkeehTV M7BRzsOTXgLCI8NvWfVBAah6D uxmt0QbQkvKAoSMsfwYCkiqwq xaCmTNDmyqVGDeVCSE9DQOYYY FZITV4OH4ervJLnJWFaER8oZ4 ZYGJGOLpIVEWSZO7PwU9bIAZI QKBLXXCuLFEGZZNLEDh6TPADS WVxwYXIgICAgLSBOTyBJTlRFU 4NBTtFILY5ZHDFPISPDGXAgA3 TcJQkIRQuGF2wWFIxWZD6JMWJ FYRNmuUYdBDMqNP9rFw4uUB7r UAdEX2TPZDkAT2ZmM4PMUK2CH 45IPYjLXB6GQAABSDCpvCPgWD SsvrQtaSKgPJzteEroIKyir69 rcywgTUQgIDgvMTkvMjAyMiAg UWI1VmDdLJ8llWImVBEmeuXfn YZnyXhwsfOsDXrls5EtM5GhZc AwMFxhbnNpXGRlZmxhbmcxMDM jLDW1ziDcLDMpTXwrYBWaXKnd Mx3fmQBvrBlnAiAsPGAty1jgd pTZEDdsOgAsD577KSJmXMkau5 fpn3HlZWKtgYAdp4D4ABSVgjl byCp8d2vyPeGpKfK6tXXtAXdx H1bnlwGdrRZfU2XwcVNroDh0p UusV71cb2X4RydwL8xxMPViEM IkK0CzTW1oIHPfSgq7PZY3YZL 0LBSpVSGrO9ZrFQ2iWOFfnRSj ZPh6d1jlpYcaQWHaUMJ5d7rtX NrzvnK5DG4yav9igAx2e7boju SqAZWlOJZsnSNXGBYzP9UwlVa tCa7ajVb9tUjiErxpWEK2Wly9 XH9ial33hef9sVbwZSHcycdbF eX5FBriWCBmwftrAYy3SQiaMF BnlDT5LDHfbGLsZ2WnXSQuNU8 eewk5QXJ4MHtpYUFoVqH7RTYy aDCjPRAenXjkCCrqc264BNL4Q eDaXO8iP2Air0I5zI3paNPxZU WevZStLiGsJFAenj5psRVrZAh ow9FtKOA4zaQ8fXOxuQEbVPQq RJ14Pinpu6BzTnwaDTF2FBGix cQgw1Rrn0ofWiFzloQiC4rbW6 AhYCWpMWJuRKSgVsIypkDki4G sh4DxaDEoiJz4s5yzSOElLAOs qYppc8zdGVX9KBEnO0Q4rJAwq 5lnBGniCZOrfHG4dvD7FJEceF LzE8HakL8gLVHoKY7ncbu9d8i hCGT7DJonJJLxHaG4ntQ4KIRz rEVePIZmpSjeTGpfy032BRR7O qGbYAAwv2PuX2IwhTpqE97zeL vmX35aMXBnsCkwfG8usPzgbG7 cZjBcZnMyNFxxbFxwbGFpblxm MVxmczIwXGxhbmcxMDMzXGhpY 0zkPtDaCUKbaRvqKBtma0ZgIK YxXGNmMlxmczIwXHBhciBJIGh ugsMweVJga26rCYyxwFZlBVAc MIjjMRUukBjiq2QeE2enEL1nT 0NzuSRayxVlmxBpAQznCCUvo2 h2gQVqnDrtm0HgdAWbVW00lsT uYYVzNMD7YDQjt6jpKW04snkh DxPhtF81kwXlxtYbEFTha4ezX 8eypHLya8Dwb6OmkrQwCKbwe7 EfUX6bdIAhaiqkuGI7LEQjmAF ftsFskgB2uIehNWHaeE9mcV7i pSsyjU2vUlKyDsSlKXcrIV8jZ XWiA1fseXRdOFCdQHSxM9vmIf ZcxE6lkWhoSqndwtK3DBYcqf7 9 Clinical Information Chris Santos is a (test code = 61 year old female [id number]) Gastrointestinal hemorrhage, unspecified gastrointestinal hemorrhage type [K92.2]: 1. Antral erythermia biopsy, eval for H. Pylori and interstinal metaplasia Gross Description j3diuROdFMLujLBMARGjHMVsF (test code = M1iuJsboVs7fRkjSDBwdfP1oH [id number]) RyRUwfh9cdQQF1k4fwjrTDTnd pHXAyNRpyRRJcbmbaHxG5ZUrf YTLvkxavQOo4NGpfEIXuvYJ5S BBqyTThG4RwRTWaDU7cegr9JF D9HDxeUOEwVuG4FBZrGlCsDaa hXYk2CUWtdcH6Bkj4QAXlRPBo uTLii6N8WJbpvqflYLRwvOHjV 453QEtdg6SojZOjBYpgwQOmEP SQBepbZqftvOfis8DfcZPuWGj jEMJmMBKxQQmspwmtTQw4QGXk CWrmeAEyFN0kgWdmTirjeJpjg 2VjdCBcXGlkIDUxMDAyIFxcZG MgKS7RLiPxUVGzUOt0XFjkQBn 6IGw3NE6LGnClRKSvDCqxHOk5 FyCiMZb7FZmxYH4QQVG9ZUZ4O aA2PUMeXEOeZTTiIDh3JJSbQB xmIEFyaWFsIFxcZnMgMTAgXFx tiERsTA1irWeadDTjytuyiaQs UKWQWZEHDENBNCMyfBNlRR8QV KFfKCnwXBWkvLRQEAP7WG9aQN ANClxsdHJwYXJcbGluMFxyaW4 qEB5JTQk1xmUuWLFbClVnG6Zh C1taRP0nHWMtsgEvRBQepGItJ RMcziEpm0NqBJqquzLeFLUceP VkIHdpdGggdGhlIHBhdGllbnQ stvPqQW3tIRAVSFYpzL3rZRIs GbT3u63bH9bkZKBdvBGcbZZet ef7fNAdWLXdeZ1uh8hnYJP9UG brDx7rFWunUDB7wD1hbVRowtR ebF27DJP4eQ5hlKDvDEHoqKyv g2sxKfWwxuMpK36sj7depAAlj 7CqGmN4CW9leGbtdqEqdgCiM6 DeVYVbe38hkLX9gXOjiGTzHsP bF93xpvEhPTswZM5zkG7jOCEc u03zTB2iXSAsRPAcNAUfcXLks rAsubRszUCakTIbhG8fjzHhc8 6fPERdKML3UECxHMA3YYOwYUS ebSOxnzCfJ6wwRZkfaBVgQgYA kNMqb6ZkB9kiAE7gjTYyQpvef HKmXTMzlOtay7HluSIjYHUmg9 UepAYjCXjkSB0jODV0Um4koOU xPZJmbbU4l1QoBJpfEWFaDppk DMNePGdwgZLkZU3HGMFbhZWTS Bfku3NrVWbjNHMnEGQRG8EsSQ gbPWKqE94lz8SLd0FpFNJod7q zlBhnw2PdaNMvVXgmPNJvbMBf LZtsyH8uTsUmc8qkwCp8YJkca aZ5KFXonm3spNpnjJ8fTIlvt0 gvUQR4EXHzdDPckSClYJxcdUc vtV6bXzVaLwp8JHpmAGTbH9Da L6LdwwC6XXAbSAnyQORlRUUrY Qp9 Disclaimer (test s4dphBNnMUUxj3lyLPGexHYzX code = [id number]) zEwMzNcZnRuYmpcdWMxIHtccn DdAEldi1YoE1EySlTuDQdmgfZ rBPGqYlryvbroDPJhJTM3kzCl ZXFtTQycTRYeDJdtSr0btFDnx NarKtYbWRYio7slrpTIFJqbUw JpY769OCPiTXqei5qvw7WeEAR viPCew9M0ISESjqijnBi8gXis W69qk3N6XdlsA9hdFBInARFpV 5WfCF6jDLRrElw9NKF2XLS9YJ MpLXHjJ9OtHL6uEBXbmCDqHHn 3p6uuoKcrKYSqETB1g4mjXJzx iqRgIQ5jwc6etCs4u9tygvGtO ZHwTJWwqQASKPTaM4SweWohFy 9vwRd2bNpiIzpfZXR0Vll0JW2 sre82sxz0cSzfSTKevxhjXvP6 CIprFUVkpgrbQKx4PHpkUQXwo EH7NKXyqXDxK8FdDGEbBA2ody j4VFF1QNibDHYbFnQ4TKPleKQ xOIZtlZarBTzqd542ZOO2EuZx OM7lT6Fbd5W5xS7xoLQjLHPbk EYtAdVnBVHczi2byZUzHQkvh6 WqCWJ0elZ1vNXwgYEkRJCpFN7 1Gbyod8WfQeguq3CsR75naPV5 OMgeq7kfKW2rLjO6lkVqGAsmt 5ogxB7nCkI6YCawVM3uEG7uHZ GanV7uiiuuDVQoFaSpuggaJDF bmFbbwvEzQx8sqMznVQA3YQbq L7laxR1sWtH3ZUjiX9modI3jX Dd1BQxlkJN1APDzmX9qXZ8bvh zlu1usSXlgPHcpIBAnsvJ2wyT 6WPEkhBXgC7OnaA0dONOpRN6m fhqgf9gwPYU2MBrxYKJpOJS5R fWlGEPpr5Cemra7ZtDdl8BloY PaBTdhC25jc536RIIpoaYtN8c wbGFpblxwbGFpblxmMFxmczI0 AOGlerDjf4IwWOJwPRE6VQkhY LinmVEaDSMjrRteo8grT0WdhA FyXHBsYWluXGYxXGZzMjBcbGF uZzEwMzNcaGljaFxmMVxkYmNo HJDgQKteR3tyWoYcY5MvGAKoK uVaqPEwO4nxRVvvhlSaPXKphc SliGH2QEsgK2h6DVLeilJhqFm 7vmZgSdYxCKOeXLY6XGuuhJOs YNQnv2UhgequzJIsMl1ggNBjG RDhaR6gLYDrWJSrBWgeDT9udK p4IAELaCPftBGlBeFPGVFxFS9 6opIdEBVXbfifd1S1DQpbNXLz t0PbcAVeB2bnl9HqTOHsy63nJ H7oi9M3n4ocUEM9AQ1ad6AaJB CgtTYzlXLgBIHlu4Thigjmz9B jGMYblmXsq4XzGWMapfIevJLp YGAtddSodp9xwcEtFAWsKQViA 5IzwujfcNtdnbIhBECwsz2ktv BoRJH4ARFWIMYeJNBit9YwfC7 yoKRJLWS3kQJdus3huoTLkCIh ZYNfeo17ZHSiXW8fX0gnWGXoM KZpnkTmtCAck0LoCDNcuTI8aK HaHL8ERbIWl45jBKCrKVYJomO sUXCduXeolDB4dbT5yN4sKVcI REEpLlx+PJWtPCXGDUAvVV7dr gBkc2AbvtWubSsbAEDxzPPuc9 UctADca5MhlEqfa0FpzUYiiTL tEA0fMMCgfrkxFQYsKDKVJxFI JOZjxlH1z9MgPPDwSEJiIGH0t Gafsih5SZVqzM3sAMEpD1dwxk zxQIgmCPEgi4RoyZ8isDMNhPD rm2FubYHcxZSEpMWeXK8xyyGv JNnYUWbJLSB8hbZpFQDzj8CsS EylV9njO96ukPtxjDv3oJT9IG G5wZ3hMve+IFxwYXJccGFyIEF bqJUqrNTfDPKsqBvzizTlT8Ex zhHadP3zxULzszFcUE9aJO4mE 5O7vVEkWYToimVwh9mmZMaubd VxQgGawoCsROFaKIddFOMsr3M sEDeySYS6RZfjhmOvkpCqqYMq tywaNYXPLOWJoDGnyXVtCGD9N EypmgZcpzWbJY8yfW6gqKrjzQ 7mdMUeiVE6pvdeFZYdVSQswRr kFXWmHH1zzOAlPRSsraEFdRke tSZfuE1mG6DxGPRzDFAsxn9oD QRopP0fETvly2CllbbfANNfLO HaYXXfccOdkn7rXHXjtYNPCX3 HZRgoaTJdh9TejmRrL7xGVIW8 NUQwNjYwMjgxKSBleGNlcHQgY CJedg53IPWozN1atQbeZVAulG 0oeI7wjEnhwV3tDlKkOdCrYKn mFS9eWDZhV7ocoIAlPULyCLCr F9khGcMfgY3foQhdZZukFyNcV dJqPApoZGF9qB== Embedded Images (test code = [id number]) [facility] [id number] 16:43:01 Test Item Value Reference Range Interpretation Comments Case Report (test Surgical Pathology ? ? ? code = [id number]) ?Case: [id number] ? Authorizing Provider: ?Earnest Nunez MD ? ? ?Collected: ? 03/23/2022 0936 ?Ordering Location: ? ? GI Endoscopy OR Department Received: ?03/23/2022 1143 ?Pathologist: ? Luisana Willard MD PHD ?Specimen: ? ?STOMACH, 1. Antral erythermia biopsy, eval for H. Pylori and intestinal metaplasia ? Final Diagnosis j6ybtUHbXLJer8ueQFHazGWuF (test code = zEwMzNcZnRuYmpcdWMxIHtccn [id number]) ZvLQmqjHgrPSUcVCVqEN7mzXl whRz0nFpbLDPpyoY8xJFaIPhq i7pwQNA8c6rsyyriDCViMNnyR m9fqRFjfOfwIyPhAYUeAQy9wW 05SLBbmL8zyTRvTLr0UCEwdIF myjIlEwPuKZTynRJaqXM1GNWx DX5ghvauWHbxVEfkLSCjnpR4F UTndPIlX9AzQSCtHQ3qosczAI G0BUieAAAjRFE0OzKjQIVre2W nmjc6RsMrwQFsKEhygVRafsqw elLjCSGfafTIIbDFNV5DVFSLB GIUSA8BV0pwyFTyPQMfYR1jG6 WOJFXXXlAYMUIJI4GyJ4yMSJX LCDPVBKdODBWGCXJLMw2VAOHZ WVxwYXIgICAgLSBOTyBJTlRFU 8SVIyVSXV6JYTDPSAFPONSfT2 WpESgFQNmMR4dWCPhYAT8CGLT WKTBgaQWoIDBzOU6mYl0wWR7r MHqJX1SECGzUQ0TuL1ZGSD0LO 06LWAeLSJ7SBXCYVGOsoLVqSX PyuxBclWZjJElqrEauHRzkg88 rcywgTUQgIDgvMTkvMjAyMiAg ZXN7HtRvKG8fbCKwSJWsbtVkp OQrsGndrlChBSwew1RtZ9KiWm AwMFxhbnNpXGRlZmxhbmcxMDM mQFN5opVpXEMfTImoJSOgWAyx Iz3idGGbmYdkYmAnHKXhm8fks gWFZKznCaCrW538BOSdLUsel0 yur1FqGALzgCNty7E2TSGVlfr goAc3c6mfLnUaVwG2kBLmMDwr L2hxcyQrbBIzA2GkhRTnrEs4n WruW13ev4D2WkhdZ2vjTATvWU PmD6DtJH5sYQOrKza2HPR7KDY 6HGWyQROfN4LmFI9uKQCswAMo BWf5b1dakWndCNCaNBF5n0kdQ YdqlhI1LC3etl1agNy8w0rzmc MdELWtIXNxoTYISZLiS5PqeAg nQw9tgGy0lDieHnggKZC8Yzh9 GO4vxw45fwr1gEcyPNNtapxmA pO2VJvwXHRwpmgwODn9VUlqUI WcmZX0CSDpoDBbP0TiCYOgEG8 qnkh3FPB7VWdoTNZdQhQ3IXFy eKEuBQBpqTnwGJady560SBR9I uZbHE3fR8Bkt0L8sM1diZTdZT JpoJIjTaUhKJYmbi1bpCYmPWc ei1NbMYV1klS2vZFquEQwBPNh PF52Ogeca9AtVupsOJX1NMOux iCxf1Mmq8lwEuUwzaWrC8koC4 CiSRHpBKJrJGIbLyXgbpHjx8N ft6AdySQzuKi9z0vgEYZqEXUv lRpxx3yvSDB6QZJqB4A0nUCpb 0fbLRtfDACqwPJ4arI3FGStaC UwI4KdqJ3mQQYqIV1mcow3b6n fFVF3TDjhXEDuAxU6txI6RCXj yHMwNXJcrWqrOOojq086GYW5H cUsGEZcb4WdT9KyyNllH65rxJ dkZ33iGRMlmIiquJ4anOagwS9 cZjBcZnMyNFxxbFxwbGFpblxm MVxmczIwXGxhbmcxMDMzXGhpY 9kzIuJfSFGyxIjgNMyqp3JaAD YxXGNmMlxmczIwXHBhciBJIGh mbsVbzBUmz35cAItlsXUaRLGy PZkzUNUsqWmsp1PnA6ljHG2cG 2UkxLTplgHyawDvKPuwTSJyu3 t9bBCdoBoih1YlaBNzUS84rsA mWUBrHOD8MTTnq6rrBZ47fchx StTizT25jvOtzvXiJAKyr6qsJ 6wldXPwq2Oqr0RfvzDgBBtuu4 BfPE0fbHIxzbkqhWC5IOMirLZ ztrObloJ1aXurZFRlsY7fsZ2b fDeauZ5gVzLzBcErNEphCH9cG XIfF0vyrUXcHMPkROQuS4jhAb HzfN3drRmiTvsxulB0LHHahw8 9 Clinical Information Chris Santos is a (test code = 61 year old female [id number]) Gastrointestinal hemorrhage, unspecified gastrointestinal hemorrhage type [K92.2]: 1. Antral erythermia biopsy, eval for H. Pylori and interstinal metaplasia Gross Description a9seoVBtCDIorRVKLNTfVPUaS (test code = A0guBqsdAm9aOdgOFRowlV8hQ [id number]) FlSWrck7hrWOI2w8okihRTGpp pCSVvDHqzAODkqfnxBiD6UGya SKQyhpzdOAo1UBosQOKuoBG1B QVxdSWtY7OaJTTlSE3uwix3SL R4HGtzSJIgPaN1UCMlUjXuMld zFIi2WYLjykP2Sdb2OWHpENBb qTGdv7S3XYiruxzaLXRvnMYeM 033DHajc7XdhCTcIAdwsIClZI EMLobhZywseQujw1CvlFEzRTb gSTFfISAtFRmwiedxHAu9WIPe KXejnWGjAY1tvJdiKxzyoCvau 2VjdCBcXGlkIDUxMDAyIFxcZG AoIG5NQrCsQYTyDKs7EYrfQCs 4JKd7MF8AMtDfPNVcTUdaIGm0 TlPtGUh9KAbuHJ0FGVM3XIA1S aJ8UQEbDNByLSKfWZg2SOXgQE xmIEFyaWFsIFxcZnMgMTAgXFx cqOUqIC7qzBnxpFSbuwubeqQl FKLNKSHDDXWIOJGjgJZhQD3SJ WDdMEstRAXkoVCPLPE1HO8uTP ANClxsdHJwYXJcbGluMFxyaW4 kWB9GHIt3naUgNHVnMeZeI5Pt X0xzJN0yXWXucpIuTPNmtDKiE BSzsvTdx2AbDZgvdtFsEGZggE VkIHdpdGggdGhlIHBhdGllbnQ kgkKiCB5rTDJVYUHlmP1gFGEl IiZ8d38rW6pnQQKpvFEtdKAnd jk2rSWvLGCylR4ii2kcJFJ3UZ lrGb6sJUdgUBA6lL3urEInueH tkK13TTV5jA4drATeBDBykPga r0yxXdLwzfGuL70yi6rwaRAcs 7UxJwL5LC1vzOsmgtAhuxMvX2 UxZOHbk87ftOU9jOXqgKJbZaD tX90vrnOfTVorEN5ciP8eDNDd v32xKC7fOGBpLRDjJCXynONqr aEnmaAnmTKmxDDcfL4ffeRjs9 7gWVSvIGL8SEVdPNF3RUTzSGN neOWfrfWaL0snUBqvoIXySbYF sYXod3ImC2nbJH5zdMKhJswsd QEjGXIgePlqb2TbcIZlMZZjo9 RneMAlJNezSC3oOTU4Uc5wfTF eJCKpewR5t2YhKXjgBZQbSncx KKEtGNkpsWNrGM4RJWEymYRJJ Nryn0KiSXceRKJsZCLVT2UwRY jdLMVtV22fr5ZOv1RjJHLar2g imTpho8CjfJYqOVdcZCExvSUh OFvtbZ7nZcQtx4xtxAx8FJcxm lR0JWMptw6cuLziyK9mUMfnk1 kpYJS6BQXubUEbyNTlMBuowRc xaZ8fXtWtDxq5NArgPHRyQ2Wj B2FbupO0JVTxEVaaPQDmZCChA Qp9 Disclaimer (test l4dcpHGuTRPfo9acJRPrvOSfZ code = [id number]) zEwMzNcZnRuYmpcdWMxIHtccn OqOTjzs0CmT7FiUmPwNQjutaE eOGKhWxvenhftDFUpDOR3ivYe AORrKFxmKWYrHGecJh9uvGQni UgoBxZaNFPhf4gimwZCJRueVo ZgW746DTJrHUgte4jck0UcIGQ ehXFeu9I3NSHSjgdarLq4tPzb E23bk7Q0AwpbS9egYQLlKINdW 6UrPW0sQYQsAlv9QEI4RYL8BQ VqWCAoP9YyMR3dRUBdcZNcNYv 6f2ezkQbcGEBwBWI2x0viOGcc jwSgMY4xpa4qzXa9s7rwwaPdM BYbWVWpoHXJRXQtX6KvhNsoMw 2qfYl8ySjeEjmuADC6Tvx9TB8 mjb69adg3uTvlEERnpkrbCnI5 XKpuMPQwbmdkNGx9XLlkEBIon CV5AJObnRJtO7KsFUDsNC5lrm u8KQG9TSxmRJGvAbG5RKLubLU nUTQwnKamSAfkt046DIN7BnSt GR5uP3Zzp5H7jR7vuNUxEOSgg ZEdDqDdJPOrzr3kmZOwSEwok0 IuZPR7mxL7oCJidBNxSITlFS8 9Zzgna2QlLziig0AlZ06ewGY3 OGmgr6nnUP8mCcX1quMlCPasw 6qgmF2vJkN8BDvmGE7nVQ7wUD NiqK1vtwsdPFIjYdHrvbjiQFZ iqLyrhbOvNt9vhMunVYC0SGqm Q1bzoX4sOcA8ROevU5ycgW1fQ Ta4PEylrZT9CBDajK3eMK0lco aiv6lfWKqrAXbyNDOqzaR1egC 1PGRzuQImT8MpuH9kSXMfHW4w mhzay5gyEXX4PPknAVZyOWM8S yPaOGBul6Zzueh7TmUyt0SohJ AxDKguU24pr753NOMpmzVeL8c wbGFpblxwbGFpblxmMFxmczI0 RENpvbLge3HyDOLaFMD2VMwqI OvpdOJjIUZaoNhry9keV5GrqI FyXHBsYWluXGYxXGZzMjBcbGF uZzEwMzNcaGljaFxmMVxkYmNo IPJcEIjmZ6caWuJsY5AtFXEhB mJrnEByP7hoRZhkmzJbJYYwtl XksPL3FWyzM9p9HTDgpfLzeNr 0jwNnByOwADZuFQI2JMypiUCi SSWgw6PpwqefeYKiLn8whXXzY KIqvP1tXMSvLGIpSOccVP8nuQ c4RYZUaOPunVRlApZAIJSbJI1 9ddJxJYXMqjbmg1U1KHxbCSDl d7XvlXWrD9bsr6XjDYBkx37yJ P9ww6T1j8bfYBL9SP0rr1IhCI BiiVPzaDDfARNqa5Lzgtvqk9L xWWPaspQbo3CcOHRvarEkxAHf PIIjhyRtcr0ibwOjZNVjWLNyF 8AcbxqcfZywflLyYCCmhj0upx KiFLC2AXYYUNZxVUKfp8EcoQ0 hgXPXVAL1hXDhbj6yvjYLcJIc PCVntj68WRAzXP4tZ0hgSRUnK IJtieIvcZIns7TtWNXtcZC1yG DjND7GQiJBf22qVYFqEVEEwqJ uITQbyFcojUR1khX9hG6sYKnG REEpLlx+WNHaKHQPYGPxIA0dl mOvp7DdigGotRiuTHNroSOuu7 VrbKJrf5YsoApxc5PuiNXpaHZ yCL6oBJOlsknaHTWlAZGNNgNH AGOavyD4h1QmONNgLPDpMSD7t Ueafxo8MQBasN6lKXQvV8okal rqDPexFSDvl0VzsH8svFXQtEN ii4EtvYCayPDNfARoEK0kbkLx ZMxVHZzHYEH5mtWyXRDog0MoG NkiO8czR63xkImtgWl0tVL6QJ N9gQ4zJyx+IFxwYXJccGFyIEF doYEysLDrEAMmySsdqiDsB5Dl bzWxtV5zxBYkwmApWK3zVH0xO 9W9cEFlELFckxCvn4dkDGjzsc VaRsBntyYzDLVaPQbpVVLql6H oJJazMER0MOxbaxAghuObhVAj xfvmZCILTQRZfHBwuQSsPDV9W AcslyFgtxDdJX0ijR6plNmxuF 2boNAiaSA3jchrRMNnCMUldFo iLVYhPD7quIEcJAWkawZAzRes fOQpuZ1cD8GxZPBdTDRcxg4xT SWvfW0eVDznm2HuhgzjABPbWG UrCRIadoGfhv3mZGZzcVXZLF6 FTJmjnUVvc2GabzWzU7yAIQZ1 NUQwNjYwMjgxKSBleGNlcHQgY ZJbbz06LJLxeO2ehZpxFASdnX 0cwC7nlLteqP0iPwHkHcHrABn vUH8xDRUqU9khuDVnFTBvNGIc J2kuDqBmtH5hwNuoEQhaXjYtX vFxJXweXDN3cA== Embedded Images (test code = [id number]) [facility] [id number] 16:43:01 Test Item Value Reference Range Interpretation Comments Case Report (test Surgical Pathology ? ? ? code = [id number]) ?Case: [id number] ? Authorizing Provider: ?Earnest Nunez MD ? ? ?Collected: ? 03/23/2022 0936 ?Ordering Location: ? ? GI Endoscopy OR Department Received: ?03/23/2022 1143 ?Pathologist: ? Luisana Willard MD PHD ?Specimen: ? ?STOMACH, 1. Antral erythermia biopsy, eval for H. Pylori and intestinal metaplasia ? Final Diagnosis t4yavXWrJAIov0axPIPsmXEkR (test code = zEwMzNcZnRuYmpcdWMxIHtccn [id number]) KrLTmogNevGIOuYFEiXG5djHb lkFo8bKhhMZDauuD4qWXtZCzy w4miXSU3e8angbctKMXtZFnvH d9jkGWgdCjoOjEeNUWnTVs9xI 71MRBtkH9daUEnMOx1FSMzxMV lroTeXwPhCEUxdRHdnAO9GMSw GQ2degauXNgtRSlqKJIpaoV1C IOtyDPgU4XuIQKmSB5anubkXS Q7KNabVUFcSOK4DkDqFSBke8K ehjc8NsCevGWzNDkzrYViwgqv ksLcTXXomwDHNmFVPQ8ZMKTBO KQIVJ8FU3zqoNHvVRZcOC2iD0 CKYBYUBgWNSNNDZ0MwT0oCBWH WGGUJXZpCGEBZJHWYNs1WXHQP WVxwYXIgICAgLSBOTyBJTlRFU 5EDOaHTNS9EFSETCNQYTXMzN0 LcZMuUXFvWM0jFUIzXPJ9JLNO IFXXgtVXiFESuZX6fAy3qZB6e FTsYH8MUJLoQE8HsS0CTUT4QH 83LXWwFQH9BQFRCPCSutRDqKN JtryBcfXCuSMmgzBfyEYwfm06 rcywgTUQgIDgvMTkvMjAyMiAg FID5NvBgFE4dmEPaJSDhnqJns TCslAjdwnKoMKdmn6FrD1AgNb AwMFxhbnNpXGRlZmxhbmcxMDM yOKE7gtIaKAYrPYweZPOlCRjv Jk7mtWBqpRwrFsWkXJExr7zsn oKBAPqaRaFvK544RBFrBFdar3 ild5ZuJATccWWvq3Q0LRKGuqz riMi2m3dpBnTxBbM6uIVeFXhd H6uyqdIltKCtC6UkgONbmSi6l FouA87qt1T2GqyeO7esOELsRP AtV6UuKH8lINEmBgd6BDR1RTJ 5PWQwYSEzC5RuXB6tLVIyrZCm JWv0p8ncwNwpJGIxGYH5z5uyN YxiwfT1LX1dkl0qdMu3s5erql RrBVZfZREjaFLNNQYcX6AfiTa tTl2itZl3nNkgXipsZFX9Pzw6 IK3mfq91dqc4cOzkBBQnnppxE yU8EUtaKTCckuagUPf8YEetRF OpaIJ7KREtpAAmQ3QwLHJcEX9 ddmq3AFI8TWztDWJdFnU8OAUh vDUbMNOwqHrtFBdvz916UOQ8R aRbQM3eH7Xui1E3oW5nmADxNC IvpWUrDbGcMLBkel2ygPHdZQp yc7QbZYR0mnY0wCAlnLVtLRWh KH51Uupnm9JnYmvuMBW6JEQts lJyo2Ofk5tiKwXaysArW4rsS4 QnBENrHVZwBCVcCpRkwnMvs7H ex7JmuTAkhYi8x6izEILuFSNi yTnxh0kkOGT9BQPxU3F1qBWbc 0uvTArkTHUxnWF4xvB6JYAecE IzK9InjP5zYHOrID6ejsg1l6g oIQE8KQqaVDBeCnP5ukT4PHGc pHErYWGrzWlcTXzjm356DFD5D dBvLUAcd1FjE9DjdAedH42zpE oqZ66oJZAhdFgedQ8byGqwoX2 cZjBcZnMyNFxxbFxwbGFpblxm MVxmczIwXGxhbmcxMDMzXGhpY 4fpVwVtMUDeuWibUUerv8WnLQ YxXGNmMlxmczIwXHBhciBJIGh myxUusSUmx56sSXefxTOfOMMk VHqmEPIugZthl6RcO0owOV0cV 4PhaDRdsiCspeEhHErsWIZqj6 w9pQMpwJchz5VugTJrRL44fmR vAQGiAQP9ILDuz4lvQI59igfm EgXuuN47rwRianBwGGJmd7xlZ 1lvbSGux6Ims1YbaiYcFRmlc1 ZuIS7cwKMcckjcgZH2EDIyfZL ctiCleoV5eRxrORHnfE8ebQ5r jHdirP8cDvZuHbGuJWapMV5vQ YTpX6igaPJpCYXjAHHiZ7vbNg NrbV6xlBerTaajruF0DCNbqx0 9 Clinical Information Chris Santos is a (test code = 61 year old female [id number]) Gastrointestinal hemorrhage, unspecified gastrointestinal hemorrhage type [K92.2]: 1. Antral erythermia biopsy, eval for H. Pylori and interstinal metaplasia Gross Description h2necQRjJCEjmWFUROLrQVEgM (test code = H9bvAcxnAa3hDvwCOLfesF7cE [id number]) NoWNdhk0rdRVG4u6ccmgCPDvn sODGhPHqqQBIuyoknOcD6FXpq EXAyfqieNNu8JTgmJJShtRH5S NKeyOQjU7NqKCQaFD6rmnz9GO I6CVtnEITwQfF2UAUlOaBpJop sQPr5BECxizT8Vzu2VHCzLLSk tTTex4M3DVxlikntHPZenESaA 329NDjth9BnhRGwNXmvfOWzQY RPTlcxTcpobGgmt7KlcHVfATk bFWPeRKPoHYkgrzgzQEe1MUXx QGorjJXdIQ3nsDpaFammnBfmz 2VjdCBcXGlkIDUxMDAyIFxcZG SkBX9ELyVhQEWfTMo7XRohCRp 4XWw5FI8HFdAzJRTpFGmbTAq0 AbGbGWc6VNwqWW7JRMJ5IDM5Z aZ9CZGfZIKoNPRbEOu6IPXwDH xmIEFyaWFsIFxcZnMgMTAgXFx trXAaAC0lqUzlmJBmmdzoupUy CZVTNMLATKTOQXWieRAgBX2DS TCvYEdfEKTfgQTQVSR0SR1zWW ANClxsdHJwYXJcbGluMFxyaW4 hGJ9EYKy9avLrSICgJlNbL7Sw K2pcQJ9dVDXelhGwMHBgvDZsP MOxmhEha7KeNPjfcbPgCKSmcH VkIHdpdGggdGhlIHBhdGllbnQ swiKrNH6mRZTIJXLleR8wAFOr YpU1y27lS7nrUWUovDOtuVWii eg6dLJuTIDpuC5qy4daAQL4SO wgKb4kMTgqGXJ9xP9enOXsgrL aqZ40QDV0nJ3plTCiSGZfmIkv p1reAxGtltZmU26le6zjpCWij 0XeGhP3EI8dhEqqqyHersTuP4 KoGTLis88dxFG0iWXxxAXyUvS pZ51kprQuFUgpXB1dfN7jGHYp a31kAD9eRZLdHWSuSIWnuVPmd dRhjxElxNWlpPNkuS3ivzEvz4 8hCHHbIDL7KQNjWED7UMEeHUC tzNEyinYeF5tbBRrnaGNkZiTN qBZut2XsK4aoUI4nhKHiZndur BEjDKUjmTzzs2PoiUYxODXnr1 RmyICrKEerUU4eEFO2Tx9muPJ pKLPviaL2z5NeCBqdULZjAjri WELzORasgWJnMQ7TXYRsxUFEJ Iuzx8GzHTbhMNOoUKLJT0XxMV ynKELcX31dn9GOp5MyVRCyy9r sfIjpp9ChdNUuVUlnCGDubWNq DKqbmP9zIiYgq9nloXy6OKfsj qL5JNCrbp5nhEgmwK2cJPdbo0 djHNA9WBFrhAQjsOZnSZtraUb ppZ8rKsKoWbv4SKwrQRDtW0Gn O6AzkyJ4GHLhKPnhIOJaDLVpN Qp9 Disclaimer (test c4fqpFQkVLYdt0qfSJEosOLeV code = [id number]) zEwMzNcZnRuYmpcdWMxIHtccn ArZLovw6RxU6PnTmHeKJucjuD iKTEbEehkpmcbRGYxSLJ6lcGq GTJxVAwmAKTvROmbCc2dqOFhr FwtLlSaGTRtx6utqoAWOEjaOu LcZ156OFTjBMpab6ptj3EiNPA bbIKta6W2IPZDvzcldHr0eOnz L03ws0E2YtvtE3cxFUWvWSMzS 4QzQS1jVCHmOql8VBJ0UQM4FE EdLAKqK1YtXL7sUWMnbESyWBf 7x7qrpDvhFCJdRBI7y7puJEos edQaSW0lxc4fvZl0z3eabcLtG ISrBSUleUQMBXJoC7KnuZcpFe 2vqDr6dKmpRhmrJNA8Ash1NL7 lbo27ikl0aWsuKQGwwbtdOcE8 HOtdAHJtypqxNIt5RFhoNZRjl UD5NGElcATjX8BkBTCwFL1ygl v1QFA5ATgrGLVsMjG7VUQmzXB aNLMgjBzvNIkft191HFD9YdNu FR6tN3Bwd8F2uB2voPBjEYHhb HBcKzMcMXKgum1cxZNcXNjax5 JkNBV1vxT4uZNsoHRxTCWyZV6 4Ymkkz6SoCjemp4YuU23ylIG0 DAado2spWB8bOjX0lmBdDMszy 9pjvX8sLoN9SOdhZC1wRR0qUN SowF5xjpbnNRPnZfJruqlfAAC xnQphpyXiVs3qcVynWUN2WIsz Z2tmrX0qVwA6PFshE5oqbX9jC Al9QCbdyCF2URVdvW5zWQ5aib ych1usRKqyJQbmDRTtksN5xdO 9VZUkmMPnZ2JmaL6bUFDmJZ5e xbivx6zwWMV4WJjxJJGwQDW7G bLuKQEzo6Fngcy4ZqPhn5DdaH ViXUtpC52ns155NBKubrKtR9t wbGFpblxwbGFpblxmMFxmczI0 JGZdcbOut8AnZFAiZDT8UFelA CrupPGsUHHzpAldv3noC3LggN FyXHBsYWluXGYxXGZzMjBcbGF uZzEwMzNcaGljaFxmMVxkYmNo YTSmAGcxV6lsOeZsJ0FmYMBwQ iHorETeA7thROotgtVoJNIoyd VjwOT2KFgbU2t6DSNnfmAamVy 9peJkPeSaRVAkBQA1REdriLIn NQHsu5JcsckcqRCjXl7biAYnP FAjxO0hXQUlGHMfJCkbNL6xoM g3JKWFeNUhzVAxLeGKRYJpZD7 7pwNaPBDXiwmjc4U8CNjdVMVs m9YmjHIaE3zln6PgCOOos78xN R0lz5R9l0snVVN3LA1gi4YiET LnmYTspHJgLNGvz9Swrkgcp1T kROVvzbBcz0SdMTBthxPpnLCz RCHbciAnql8uigBlOIMcLHNkV 1GfpxrzcKsdcrZrLNZbls2bpo FvMEU6QHGFFFGoJVGic7BgbY0 goSVXNLI5jITwtu1jaxMZaUZa CEErxw52XUWzMB8tX2nfMFPrQ TKcdoYikDLie4CwLFHwcDO0wK CuON1KJxPXy08gKCIyKGVPicG gEKFoqRtsxTC1hcU2mH0nCMxB REEpLlx+KLTwBUWEWHFvLU6qg aCav9RcrqHmwYybGFYceMIxi0 CufAUfm0RrtLfns5CluZAjtUI kXS8sGFEvcckbHICkGHMBPpSF PKSpmiZ6o4PePVSvRMDxFPQ3j Unhkrg4QUMzyV7oSTWyF0hflh wyGDnxRNGbf5SaoE2skWJGvOO tz4UjzKBjfAEXlGLnXM6qpsOf VBlQIQdEQLW6ieNkDIRag7VsD BrmU8fnE24ipHehhYc9vPC2ZS S7nZ8bFiy+IFxwYXJccGFyIEF znZFblRBqRTBxcHzjmhCmD1Yf zyDrtT0qhHGbjnMsYB4sIG1cU 9R3bHKyHBZcslLfm7ceJUlnkg OeZlIoloCqBBPhQFxbRSOfl7L eJDlvJFQ4OXtyksXgqbOqxEZe hbprDRESTBIBhOAjaRNbIXU7M ZkppfTahnGeJL2ghC1ngVmzrI 8pwNUotFK1rgcwXKCgJUQxuHg mXMIyVJ8coIRpAYPcexOFrLnv pHIphW8tW9KgGJWcFSTddv0cI SRmtF8mMFind8VpgeqmKLEbDK OkFMStuhZscc9nTRJinBPDYY5 OAEofeXEyv5FlfkLmP5cGFDW4 NUQwNjYwMjgxKSBleGNlcHQgY FCewf36PUWgaU4dlQenKJGgrJ 2jwK9adMnkmD8cQhGgMfPeZXr oYU0qITStI8cqkVMdAUHgINRj T9msYvPjsS1hwSadUYnyIiVmO bDcCIhdEDK3aJ== Embedded Images (test code = [id number]) [facility] GLUCOSE (AUTOMATED)2022-03-24 13:31:30 Test Item Value Reference Range Interpretation Comments POCT GLU (test code = [id number]) 102 mg/dL 70-110 Lab Interpretation (test code = Normal 61895-9) [facility] GLUCOSE (AUTOMATED)2022-03-24 13:31:30 Test Item Value Reference Range Interpretation Comments POCT GLU (test code = [id number]) 102 mg/dL 70-110 Lab Interpretation (test code = Normal 26184-2) [facility] 13:31:30 Test Item Value Reference Range Interpretation Comments POCT GLU (test code = 1387899117) 102 mg/dL 70-110 Lab Interpretation (test code = Normal 44789-2) [facility]24 04:05:12 Test Item Value Reference Range Interpretation Comments POCT GLU (test code = 9965549855) 89 mg/dL 70-110 Lab Interpretation (test code = Normal 91861-0) [facility] 04:05:12 Test Item Value Reference Range Interpretation Comments POCT GLU (test code = [id number]) 89 mg/dL 70-110 Lab Interpretation (test code = Normal 71236-1) [facility] GLUCOSE (AUTOMATED)2022-03-24 04:05:12 Test Item Value Reference Range Interpretation Comments POCT GLU (test code = 9101930228) 89 mg/dL 70-110 Lab Interpretation (test code = Normal 78597-9) [facility] GLUCOSE (AUTOMATED)2022-03-24 01:56:37 Test Item Value Reference Range Interpretation Comments POCT GLU (test code = 9641696097) 64 mg/dL 70-110 L Lab Interpretation (test code = Abnormal 31762-6) [facility] GLUCOSE (AUTOMATED)2022-03-24 01:56:37 Test Item Value Reference Range Interpretation Comments POCT GLU (test code = 8120928679) 64 mg/dL 70-110 L Lab Interpretation (test code = Abnormal 35641-7) [facility]-24 01:56:37 Test Item Value Reference Range Interpretation Comments POCT GLU (test code = 7996513172) 64 mg/dL 70-110 L Lab Interpretation (test code = Abnormal 16416-5) [facility]-23 22:07:11 Test Item Value Reference Range Interpretation Comments POCT GLU (test code = 2939314375) 142 mg/dL 70-110 H Lab Interpretation (test code = Abnormal 72543-4) [facility] GLUCOSE (AUTOMATED)2022-03-23 22:07:11 Test Item Value Reference Range Interpretation Comments POCT GLU (test code = 1635448623) 142 mg/dL 70-110 H Lab Interpretation (test code = Abnormal 09450-4) [facility] 22:07:11 Test Item Value Reference Range Interpretation Comments POCT GLU (test code = 2627250597) 142 mg/dL 70-110 H Lab Interpretation (test code = Abnormal 19576-2[facility]57:32 Test Item Value Reference Range Interpretation Comments POCT GLU (test code = 6158945004) 97 mg/dL 70-110 Lab Interpretation (test code = Normal 78470-2) [facility] GLUCOSE (AUTOMATED)2022-03-23 12:57:32 Test Item Value Reference Range Interpretation Comments POCT GLU (test code = 7348486667) 97 mg/dL 70-110 Lab Interpretation (test code = Normal 74492-8) [facility] 12:57:32 Test Item Value Reference Range Interpretation Comments POCT GLU (test code = 9800000137) 97 mg/dL 70-110 Lab Interpretation (test code = Normal 62919-0) [facility] 02:07:44 Test Item Value Reference Range Interpretation Comments POCT GLU (test code = 9556572489) 164 mg/dL 70-110 H Lab Interpretation (test code = Abnormal 93405-7) [facility] 02:07:44 Test Item Value Reference Range Interpretation Comments POCT GLU (test code = 5129716467) 164 mg/dL 70-110 H Lab Interpretation (test code = Abnormal 56713-5) [facility] 02:07:44 Test Item Value Reference Range Interpretation Comments POCT GLU (test code = 2528446626) 164 mg/dL 70-110 H Lab Interpretation (test code = Abnormal 38930-7) [facility] GLUCOSE (AUTOMATED)2022-03-23 01:29:25 Test Item Value Reference Range Interpretation Comments POCT GLU (test code = 0238726377) 64 mg/dL 70-110 L Lab Interpretation (test code = Abnormal 06116-1) [facility] GLUCOSE (AUTOMATED)2022-03-23 01:29:25 Test Item Value Reference Range Interpretation Comments POCT GLU (test code = 1640069461) 64 mg/dL 70-110 L Lab Interpretation (test code = Abnormal 63568-4) [facility] GLUCOSE (AUTOMATED)2022-03-23 01:29:25 Test Item Value Reference Range Interpretation Comments POCT GLU (test code = 3159136791) 64 mg/dL 70-110 L Lab Interpretation (test code = Abnormal 84310-3) [facility] GLUCOSE (AUTOMATED)2022-03-22 22:10:52 Test Item Value Reference Range Interpretation Comments POCT GLU (test code = 9328627100) 263 mg/dL 70-110 H Lab Interpretation (test code = Abnormal 17752-0) [facility] GLUCOSE (AUTOMATED)2022-03-22 22:10:52 Test Item Value Reference Range Interpretation Comments POCT GLU (test code = 1140764331) 263 mg/dL 70-110 H Lab Interpretation (test code = Abnormal 28970-5) [facility] GLUCOSE (AUTOMATED)2022-03-22 22:10:52 Test Item Value Reference Range Interpretation Comments POCT GLU (test code = 8021284989) 263 mg/dL 70-110 H Lab Interpretation (test code = Abnormal 87532-1) [facility] and Screen - ONCE [id number] 21:13:40 Test Item Value Reference Range Interpretation Comments ABO & RH (test code A POSITIVE Performe d at [facility] = 20) Laboratory Serv [facility] Blood [facility]3 [facility] s [address]Dctg Free: [phone] A No. [id number] IAT (test code = Negative Performed a t [facility] 1185) Laboratory Serv [facility] Blood [facility]3 [address] [facility] s [address]Ckcj Free: [phone] A No. [id number] [facility] and Screen - ONCE [id number] 21:13:40 Test Item Value Reference Range Interpretation Comments ABO & RH (test code A POSITIVE Performe d at [facility] = 20) Laboratory [facility] Blood Bank3 [address] [place] [address]Afwd Free: [phone] A No. [id number] IAT (test code = Negative Performed a t [facility] 1185) Laboratory [facility] Blood [address] [address]Lrqb Free: [phone] A No. [id number] [facility] [id number] 21:13:40 Test Item Value Reference Range Interpretation Comments ABO & RH (test code A POSITIVE Performe d at [facility] = 20) Laboratory [facility] Blood [address] [address]Naov Free: [phone] A No. [id number] IAT (test code = Negative Performed a t [facility] 1185) Laboratory [facility] Blood [address] [address]Ctvl Free: [phone] A No. [id number] [facility] [id number] 15:23:00 Test Item Value Reference Range Interpretation Comments ATYPICAL pANCA (test <1:20 titer See_Comment The aty pical pANCA code = ANCACOM) pattern has been observed in asignificant percentage of p atients with ulcerative colitis,primary sclerosing chol angitis and autoimmune hepatitis. ASCA+/PANCA- Suggestive of C rohn's disease ASCA-/P ANCA+ Suggestive of Ulcerative colitisPerforme d At: BN [facility] [address] [place], [place] [id number] ra Kevin LEMUS Ph:[phone] [Automated mess age] The system [employer] generated this result transmitted ref erence range: [...] 24.9 code = ASCAGG) Positive >or= 25.0 [id number] 11:15:00 Test Item Value Reference Range Interpretation Comments GLUBED (test 95 mg/dL 70-105 N Intravenous adm inistration of code = GLUBED) N-acetylcyste ine which resultsin blood concentrations >5 mg/dL will cause overestim ationof blood glucose results . Do not use during intraven ousinfusion of N'acetylcystein e. BASIC METABOLIC [id number] 08:19:00 Test Item Value Reference Range Interpretation [...] mg/dL 8.5-10.1 L = CA) CBC W/AUTO [id number] 08:10:00 Test Item Value Reference Range Interpretation [...] = BA#) 0.03 10 3/uL 0.0-0.1 N [id number] 06:06:00 Test Item Value Reference Range Interpretation Comments GLUBED (test 114 mg/dL 70-105 H Intravenous adm inistration code = GLUBED) of N-acetylcy steine which resultsin blood concentrations >5 mg/dL will cause overestim ationof blood glucose results . Do not use during intraven ousinfusion of N'acetylcyst eine. HGBA1C - GLYCOSYLATED [id number] 03:08:00 Test Item Value Reference Range Interpretation Comments GLYCOSYLATED HEMOGLOBIN 5.2 % 4.8-5.6 Pre diabetes: 5.7 - (HA1C) (test code = 6.4 Diab etes: >6.4 GLYHGB) Glycemic contro l for adults with jose betes: <7.0Performed A t: [facility] [address] [id number] monae Neely MD Ph:[phone] [id number] 23:20:00 Test Item Value Reference Range Interpretation Comments GLUBED (test 121 mg/dL 70-105 H Intravenous adm inistration code = GLUBED) of N-acetylcy steine which resultsin blood concentrations >5 mg/dL will cause overestim ationof blood glucose results . Do not use during intraven ousinfusion of N'acetylcyst eine. [id number] 16:38:00 Test Item Value Reference Range Interpretation Comments GLUBED (test 84 mg/dL 70-105 N Intravenous adm inistration of code = GLUBED) N-acetylcyste ine which resultsin blood concentrations >5 mg/dL will cause overestim ationof blood glucose results . Do not use during intraven ousinfusion of N'acetylcystein e. HGB [id number] 16:14:00 Test Item Value Reference Range Interpretation Comments HEMOGLOBIN (test code = HGB) 9.1 g/dL 12.0-16.0 L HEMATOCRIT (test code = HCT) 28.9 % 37.0-55.0 L - CT ABD PELVIS W/O [id number] 13:47:00 [facility] : 1960 Sex: FPatient Name: CHRIS SANTOS Unit No: [id number] EXAMS: CPT CODE: [id number] CT ABD PELVIS W/O CONT 36759 EXAM: CT ABDOMEN AND PELVIS WITHOUT CONTRAST [...] system: The bladder is collapsed with a Hewitt catheter in place. Uterus is surgically absent. Gastrointestinal: No bowel obstruction or perienteric inflammation. The appendix is not visualized. Vascular: The aorta is grossly normal in appearance. Lymphatics: No enlarged lymph nodes by CT size criteria. Bones/Soft Tissues: No acute osseous findings. Osteophytosis is noted throughoutthe lumbar spine. No ventral hernias. Peritoneum/Other: No extraluminal air. No extraluminal fluid. IMPRESSION: Name: CHRIS SANTOS [facility] Phys: [id number] - Monie Nash [employer] [address] : 1960 Age: 61 Sex: [place] [address] Loc: NC.6204 1 Exam Date: 10/16/2021 Status: ADM IN PH: FAX: PAGE 1 Signed Report (CONTINUED) Patient Name: CHRIS SANTOS UnitNo: [id number] EXAMS: CPT CODE: [id number] CT ABD PELVIS W/O CONT 67974 (Continued) No acute abdominal or pelvic abnormalities. at 1347 Reported and signed by: Justa Winston M.D. CC: Self Referred; Stanley Lobo MD; Monie Nash NP Technologist: Aura Pérez; Chey Blas CTDI: 20.53 DLP: 1225.6 Trscr Dt/Tm: 10/17/2021 (1347) by:Jose REB14 Electronic Signature Date/Time: 10/17/2021 (1347)Orig Print D/T:S: 10/17/2021 (1350) Name: CHRIS SANTOS [facility] [place] Phys: [id number] [place] [address] [facility] : 1960 Age: 61 Sex: [place] [address] Loc: NC.6204 1 Exam Date: 10/16/2021 Status: ADM IN PH: FAX: PAGE 2 Signed ReportCOMPREHENSIVE METABOLIC [id number] 08:59:00 Test Item Value Reference Range Interpretation [...] code = ALKP) FE W/TOTAL IRON BINDING [id number] 08:59:00 Test Item Value Reference Range Interpretation Comments IRON (test code = IRON) 124 ug/dL 50-175 N TOTAL IRON BINDING CAPACITY (test 307 ug/dL 260-445 N code = TIBC) IRON SATURATION (test code = FESAT) 40 % 11-46 N VITAMIN [id number] 08:59:00 Test Item Value Reference Range Interpretation Comments VITAMIN B12 (test code = VITB12) 352 pg/mL 254-1320 N FOLIC [id number] 08:59:00 Test Item Value Reference Range Interpretation Comments FOLIC ACID (test code = FOL) 35.90 ng/ml 3.10-17.50 H TSH REFLEX TO [id number] 08:59:00 Test Item Value Reference Range Interpretation Comments TSH REFLEX TO FT4 (test code = 3.36 mIU/mL 0.36-3.74 N TSHREFLEX) [id number] 08:59:00 Test Item Value Reference Range Interpretation Comments FERRITIN (test code = BURKE) 132 ng/mL 8-388 N PROTHROMBIN [id number] 08:20:00 Test Item Value Reference Range Interpretation [...] and/or recurren t systemicemboliz ation. CBC W/AUTO [id number] 08:11:00 Test Item Value Reference Range Interpretation [...] = BA#) 0.05 10 3/uL 0.0-0.1 N [id number] 07:33:00 Test Item Value Reference Range Interpretation Comments GLUBED (test 96 mg/dL 70-105 N Intravenous adm inistration of code = GLUBED) N-acetylcyste ine which resultsin blood concentrations >5 mg/dL will cause overestim ationof blood glucose results . Do not use during intraven ousinfusion of N'acetylcystein e. COVID 19 INHOUSE [id number] 04:58:00 Test Item Value Reference Range Interpretation Comments COVID 19 INHOUSE NEGATIVE Negative Negative re sults do not AG (test code = preclude 201 9-nCoV infection [id number]) andshould not b e used as the sole basis for treatment or otherpatient ma nagement decisions. Nega tive results must becombined with clinical observ ations, patient history , andepidemiologi gregg information. [id number] 04:23:00 Test Item Value Reference Range Interpretation Comments GLUBED (test 79 mg/dL 70-105 N Intravenous adm inistration of code = GLUBED) N-acetylcyste ine which resultsin blood concentrations >5 mg/dL will cause overestim ationof blood glucose results . Do not use during intraven ousinfusion of N'acetylcystein e. [id number] 20:25:00 Test Item Value Reference Range Interpretation Comments GLUBED (test 105 mg/dL 70-105 N Intravenous adm inistration code = GLUBED) of N-acetylcy steine which resultsin blood concentrations >5 mg/dL will cause overestim ationof blood glucose results . Do not use during intraven ousinfusion of N'acetylcyst eine. [id number] 18:16:00 Test Item Value Reference Range Interpretation [...] LDLC) 28 mg/dL 0-100 N BASIC METABOLIC [id number] 15:24:00 Test Item Value Reference Range Interpretation [...] mg/dL 8.5-10.1 L = CA) LIVER FUNCTION [id number] 15:24:00 Test Item Value Reference Range Interpretation [...] 45-117 N PHOSPHATASE (test code = ALKP) [id number] 15:24:00 Test Item Value Reference Range Interpretation Comments LIPASE (test code = LIP) 108 U/L 73-393 N PROTHROMBIN [id number] 15:18:00 Test Item Value Reference Range Interpretation [...] and/or recurren t systemicemboliz ation. CBC W/O [id number] 15:06:00 Test Item Value Reference Range Interpretation [...] = PLT) 176 10 3/uL 150-400 N Wrist Right 3 ViewWrist Right 3 View
[2022-05-28] MEDS ORDERED: LEVALBUTEROL 1.25 MG/3 ML NEB ONE (12:56)
[2022-05-28] MEDS ORDERED: MAGNESIUM SULFATE 1 gm IVPB 1 GM/100 ML BAG IV ONE (12:56)
[2022-05-28] MEDS ORDERED: METHYLPREDNISOLONE 125 MG INJ ONE (12:56)
--- NOTE | 2022-05-28 13:50 | RAD REPORT ---
EXAM DESCRIPTION: RAD - Chest Single View - 05/28/2022 1:39 pm CLINICAL HISTORY: SOB COMPARISON: Chest Single View dated 05/15/2022; Chest Pa And Lat (2 Views) dated 10/11/2021; Chest Sin gle View dated 06/18/2021; Chest Single View dated 04/04/2021 FINDINGS: Lines: None. Lungs: No evidence of edema or pneumonia. Pleural: No significant pleural effusions or pneumothorax. Cardiac: The heart size is within normal limits. Mediastinum: Within normal limits. Bones: No acute fractures. Other: None IMPRESSION: No acute cardiopulmonary disease.
[2022-05-28 13:57] LABS: Hematocrit 33.9 % (36.0-45.0); RBC Red Blood Cell Count 3.49 M/uL (3.86-4.86)
[2022-05-28 13:58] LABS: Absolute Lymphocytes (CBC) 1.6 K/uL (0.7-4.9); Lymphocytes % 18.8 % (15.3-44.8); MPV 7.1 fL (7.6-11.3)
[2022-05-28 14:04] LABS: Protime INR 0.94
[2022-05-28 14:16] LABS: ALT/SGPT 27 U/L (12-78); AST/SGOT 10 U/L (15-37); Albumin 3.4 g/dL (3.4-5.0); Alkaline Phosphatase 70 U/L (45-117); BUN Blood Urea Nitrogen 8 mg/dL (7-18); Bicarbonate 25 mmol/L (21-32); Bilirubin Total 0.3 mg/dL (0.2-1.0); Glomerular Filtration Rate 70 ml/min (=/>90); Glucose Level 156 mg/dL (74-106); Magnesium 1.6 mg/dL (1.8-2.4); NT PRO-BNP 50 pg/mL (<125); Potassium 3.9 mmol/L (3.5-5.1); Protein, Total 6.9 g/dL (6.4-8.2); Sodium Level 131 mmol/L (136-145); Troponin High Sensitivity 5.5 pg/mL (<58.9)
[2022-05-28 14:19] LABS: Bilirubin Direct < 0.1 mg/dL (0-0.2)
--- NOTE | 2022-05-28 15:37 | ER ---
Nurse's Notes [facility] Name: Radha Santos Age: 61 yrs Sex: Female : 1960 Arrival Date: 05/28/2022 Time: 12:35 Bed 5 Private MD: Diagnosis: Unspecified asthma with (acute) exacerbation Presentation: 05/28 12:40 Chief complaint: Seen in ED 2 weeks ago for same s/s, completed antibiotics, reports hb SOB persists and is getting worse. Also c/o chest tightness and productive cough. Denies fever. Coronavirus screen: Client presents with at least one sign or symptom that may indicate coronavirus-19. Standard/surgical mask placed on the client. Provider contacted for isolation considerations. Ebola Screen: No symptoms or risks identified at this time. Risk Assessment: Do you want to hurt yourself or someone else? Patient reports no desire to harm self or others. Onset of symptoms was May 28, 2022. 12:40 Method Of Arrival: Wheelchair hb 12:40 Acuity: SAURAV 2 hb 16:00 Initial Sepsis Screen: Does the patient meet any 2 criteria? No. Patient's initial ld1 sepsis screen is negative. Does the patient have a suspected source of infection? No. Patient's initial sepsis screen is negative. Historical: - Allergies: 12:41 miconazole; hb 12:41 skin cleanser combination no.17; hb - PMHx: 12:41 Anxiety; Diabetes - NIDDM; Depression; High Cholesterol; CVA; Hypertension; GERD; hb Hypothyroidism; Chronic Abdominal Pain; chronic back pain; - PSHx: 12:41 section; Cholecystectomy; Total abdominal hysterectomy; hb - Immunization history:: Adult Immunizations up to date, Client reports receiving the 2nd dose of the Covid vaccine. - Social history:: Smoking status: Patient denies any tobacco usage or history of. Screenin:59 Abuse screen: Denies threats or abuse. Denies injuries from another. Nutritional ld1 screening: No deficits noted. Tuberculosis screening: No symptoms or risk factors identified. Fall Risk None identified. Assessment: 13:06 Reassessment:. General: Appears in no apparent distress. comfortable, Behavior is calm, ld1 cooperative, appropriate for age. Pain: Denies pain. Neuro: Level of Consciousness is awake, alert, obeys commands, Oriented to person, place, time, situation. Cardiovascular: Capillary refill < 3 seconds Patient's skin is warm and dry. Rhythm is sinus rhythm. Respiratory: Airway is patent Respiratory effort is even, labored, Breath sounds with wheezes bilaterally. the patient has mild shortness of breath. GI: Abdomen is round non-distended. : No signs and/or symptoms were reported regarding the genitourinary system. EENT: No signs and/or symptoms were reported regarding the EENT system. Derm: No signs and/or symptoms reported regarding the dermatologic system. Musculoskeletal: No signs and/or symptoms reported regarding the musculoskeletal system. 14:56 Reassessment: Ambulated pt - SpO2 100% RA. ld1 Vital Signs: 12:40 BP 127 / 85; Pulse 114; Resp 24; Temp 98.2; Pulse Ox 100% ; Weight 81.65 kg; Height 5 hb ft. 7 in. (170.18 cm); Pain 5/10; 13:06 BP 127 / 85; Pulse 95; Resp 22; Pulse Ox 100% on Nebulizer Mask; ld1 13:53 BP 113 / 68; Pulse 106; Resp 22; Pulse Ox 100% on R/A; ld1 14:57 BP 126 / 58; Pulse 105; Resp 20; Pulse Ox 98% on R/A; ld1 12:40 Body Mass Index 28.19 (81.65 kg, 170.18 cm) hb ED Course: 12:35 Patient arrived in ED. am2 12:38 Orestes Keith PA is PHCP. [facility] 12:38 Delvis Lr MD is Attending Physician. [facility] 12:41 Triage completed. hb 12:42 Arm band placed on. hb 12:45 Sera Salcido, RIMA is Primary Nurse. ld1 13:02 SARS-COV-2 RT PCR (Document "Date of Onset" if Symptomatic) Sent. ld1 13:03 Influenza Screen (a \\T\\ B) Sent. ld1 13:41 XRAY Chest (1 view) In Process Unspecified. EDMS 13:53 Initial lab(s) drawn, by me, sent to lab. Inserted saline lock: 24 gauge in left hand, iw using aseptic technique. Blood collected. 15:59 Patient has correct armband on for positive identification. Placed in gown. Bed in low ld1 position. Call light in reach. Side rails up X2. monitoring analyst on. Pulse ox on. NIBP on. Door closed. Noise minimized. Warm blanket given. 15:59 No provider procedures requiring assistance completed. IV discontinued, intact, ld1 bleeding controlled, No redness/swelling at site. Administered Medications: 13:02 Drug: Xopenex (levalbuterol) (3) 1.25 mg Route: Inhalation; ld1 13:52 Follow up: Response: No adverse reaction ld1 13:52 Drug: SOLU-Medrol (methylPrednisoLONE) 125 mg Route: IVP; Site: left hand; ld1 13:52 Drug: Magnesium Sulfate 1 grams Route: IVPB; Infused Over: 1 hrs; Site: left hand; ld1 Medication: 16:00 VIS not applicable for this client. ld1 Outcome: 15:36 Discharge ordered by . buck 15:59 Discharged to home ambulatory. ld1 15:59 Condition: stable 15:59 Discharge instructions given to patient, Instructed on discharge instructions, follow up and referral plans. medication usage, Demonstrated understanding of instructions, follow-up care, medications, Prescriptions given X 2. 16:00 Patient left the ED. ld1 Signatures: Dispatcher [employer] EDMS Orestes Keith PA PA jmm Williams, Irene, RN RN iw Baxter, Heather, RN RN Vibha Hernandez Lauren, RIMA RN ld1
--- NOTE | 2022-05-28 15:37 | EDPHYS ---
Physician Documentation [facility] Name: Radha Santos Age: 61 yrs Sex: Female : 1960 Arrival Date: 05/28/2022 Time: 12:35 Bed 5 Private MD: ED Physician Delvis Lr HPI: 05/28 12:39 This 61 yrs old Female presents to ER via Wheelchair with complaints of Breathing jmm Difficulty. 12:39 The patient has shortness of breath at rest. Onset: The symptoms/episode began/occurred jmm gradually. Duration: The symptoms are continuous. The patient's shortness of breath is aggravated by nothing, is alleviated by nothing. Associated signs and symptoms: Pertinent negatives: fever. This is a 61 year old female with a history of dm, depression hlp, cva, anxiety that presents to the ED with complaints of shortness of breath, wheezing consistent with previous copd/asthma exacerbations. . Historical: - Allergies: 12:41 miconazole; hb 12:41 skin cleanser combination no.17; hb - PMHx: 12:41 Anxiety; Diabetes - NIDDM; Depression; High Cholesterol; CVA; Hypertension; GERD; hb Hypothyroidism; Chronic Abdominal Pain; chronic back pain; - PSHx: 12:41 section; Cholecystectomy; Total abdominal hysterectomy; hb - Immunization history:: Adult Immunizations up to date, Client reports receiving the 2nd dose of the Covid vaccine. - Social history:: Smoking status: Patient denies any tobacco usage or history of. ROS: 12:39 Constitutional: Negative for fever, chills, and weight loss, Cardiovascular: Negative jmm for chest pain, palpitations, and edema. 12:39 Respiratory: Positive for cough, shortness of breath, wheezing. 12:39 All other systems are negative. Exam: 12:39 Head/Face: atraumatic. Eyes: EOMI, no conjunctival erythema appreciated ENT: Moist jmm Mucus Membranes Neck: Trachea midline, Supple Chest/axilla: Normal chest wall appearance and motion. Cardiovascular: Regular rate and rhythm. No edema appreciated 12:39 Back: Normal ROM Skin: General appearance color normal MS/ Extremity: Moves all extremities, no obvious deformities appreciated, no edema noted to the lower extremities Neuro: Awake and alert Psych: Behavior is normal, Mood is normal, Patient is cooperative and pleasant 12:39 Constitutional: The patient appears alert, awake, anxious, uncomfortable. 12:39 Respiratory: mild respiratory distress is noted, Respirations: Breath sounds: wheezing: that is moderate, is heard diffusely. Vital Signs: 12:40 BP 127 / 85; Pulse 114; Resp 24; Temp 98.2; Pulse Ox 100% ; Weight 81.65 kg; Height 5 hb ft. 7 in. (170.18 cm); Pain 5/10; 13:06 BP 127 / 85; Pulse 95; Resp 22; Pulse Ox 100% on Nebulizer Mask; ld1 13:53 BP 113 / 68; Pulse 106; Resp 22; Pulse Ox 100% on R/A; ld1 14:57 BP 126 / 58; Pulse 105; Resp 20; Pulse Ox 98% on R/A; ld1 12:40 Body Mass Index 28.19 (81.65 kg, 170.18 cm) hb MDM: 12:46 Patient medically screened. [facility] 15:35 Data reviewed: vital signs, nurses notes. ED course: O2 normal with ambulation. patient [facility] states she feels much better. advised to follow up with her pcp/car pick up driver. otherwise given strict return precaution. patient understood and agrees with the plan of care. . 05/28 12:39 Order name: Basic Metabolic Panel; Complete Time: 14:[address] [facility] 05/28 12:39 Order name: CBC with Diff; Complete Time: 14:[address] [facility] 05/28 12:39 Order name: LFT's; Complete Time: 14:[address] [facility] 05/28 12:39 Order name: Magnesium; Complete Time: 14:[address] [facility] 05/28 12:39 Order name: NT PRO-BNP; Complete Time: 14:[address] [facility] 05/28 12:39 Order name: PT-INR; Complete Time: 14:[address] [facility] 05/28 12:39 Order name: Troponin HS; Complete Time: 14:[address] [facility] 05/28 12:39 Order name: XRAY Chest (1 view); Complete Time: 13:[address] [facility] 05/28 12:39 Order name: EKG; Complete Time: 12:[address] [facility] 05/28 12:40 Order name: SARS-COV-2 RT PCR (Document "Date of Onset" if Symptomatic); Complete Time: [facility] 13:55 05/28 12:40 Order name: Influenza Screen (a \\T\\ B); Complete Time: 13:[address] [facility] 05/28 12:39 Order name: Cardiac monitoring; Complete Time: 12:[address] [facility] 05/28 12:39 Order name: EKG - Nurse/Tech; Complete Time: 12:[address] [facility] 05/28 12:39 Order name: IV Saline Lock; Complete Time: 13:[address] [facility] 05/28 12:39 Order name: Labs collected and sent; Complete Time: 13:[address] [facility] 05/28 12:39 Order name: O2 Per Protocol; Complete Time: 12:[address] [facility] 05/28 12:39 Order name: O2 Sat Monitoring; Complete Time: 12:[address] [facility] 05/28 14:21 Order name: Misc. Order: ambulate, o2; Complete Time: 14:[address] [facility] Administered Medications: 13:02 Drug: Xopenex (levalbuterol) (3) 1.25 mg Route: Inhalation; ld1 13:52 Follow up: Response: No adverse reaction ld1 13:52 Drug: SOLU-Medrol (methylPrednisoLONE) 125 mg Route: IVP; Site: left hand; ld1 13:52 Drug: Magnesium Sulfate 1 grams Route: IVPB; Infused Over: 1 hrs; Site: left hand; ld1 Disposition: 18:53 Co-signature as Attending Physician, Delvis Lr MD. rn Disposition Summary: 05/28/22 15:36 Discharge Ordered Location: Home [facility] Condition: Stable [facility] Diagnosis - Unspecified asthma with (acute) exacerbation [facility] Followup: [facility] - With: Private Physician - When: 2 - 3 days - Reason: Recheck today's complaints, Continuance of care, Re-evaluation by your physician Discharge Instructions: - Discharge Summary Sheet [facility] - Asthma, Adult [facility] Forms: - Medication Reconciliation Form [facility] - Thank You Letter [facility] - Antibiotic Education [facility] - Prescription Opioid Use [facility] Prescriptions: - Prednisone 20 mg Oral Tablet - take 3 tablets by ORAL route once daily for 5 days; 15 tablet; Refills: 0, [facility] Product Selection Permitted - benzonatate 200 mg Oral Capsule - take 1 capsule by ORAL route 3 times per day as needed; 30 capsule; Refills: 0, [facility] Product Selection Permitted Signatures: Dispatcher [employer] EDOrestes Landa PA PA jmm Nieto, Roman, MD MD rn Annalisa Scott, RN RN hb Sera Salcido, RN RN ld1
[2022-05-28 16:46] VITALS: TEMP 98.2
[2022-05-28 16:52] VITALS: BP 126/58; O2SAT 98
--- NOTE | 2022-05-29 18:40 | EKG ---
Test Date: 2022-05-28 Test Time: 12:38:24 Jammer Operator: CARISSA MEASUREMENT RESULTS: Intervals: Rate: 101 AR: 160 QRSD: 88 QT: 342 QTc: 443 [place]: P: 44 AR: 160 QRS: 3 T: 34 INTERPRETIVE STATEMENTS: Sinus tachycardia Otherwise normal ECG Compared to ECG 05/15/2022 09:38:26 No significant changes Electronically Signed On 05-29-22 18:37:38 CDT by Matheus Izaguirre
== END 2022-05-28 16:00 | disposition home or self-care (01) ==
LOC: ER 12:33
DX: J45.901 Unspecified asthma with (acute) exacerbation (principal); Z20.822 Contact with and (suspected) exposure to COVID-19; I10 Essential (primary) hypertension; Z88.3 Allergy status to other anti-infective agents; Z88.8 Allergy status to other drugs, medicaments and biological substances; Z86.73 Personal history of transient ischemic attack (TIA), and cerebral infarction without residual deficits
CPT/HCPCS: 93005; 85025; 80048; 36415; 83735; 85610; 80076; 84484; 83880; 87804 ×2; 71045; 96375; 96374; 99285; U0003; J7614; J3475; J2930

== ENCOUNTER 2022-06-26 08:16 | Day surgery (SDC) | payer OTHER ==
[2022-06-26] MEDS ORDERED: Ringers Lactate 1,000 ML IV ONE (08:41)
[2022-06-26] MEDS ORDERED: FENTANYL CITR 100 MCG/2 ML ONE (08:53)
[2022-06-26] MEDS ORDERED: propofoL 200 MG/20 ML VIAL IV ONE ×3 (08:53→09:38)
[2022-06-26] MEDS ORDERED: dexAMETHasone 10 MG/ML VIAL ONE (08:53)
[2022-06-26] MEDS ORDERED: LIDOCAINE 2% MPF 5 ML VIAL ONE (08:53)
[2022-06-26] MEDS ORDERED: KETOROLAC 30 MG/ML INJ ONE (08:53)
[2022-06-26] MEDS ORDERED: MIDAZOLAM HCL 2 MG/2 ML INJ ONE (08:53)
[2022-06-26] MEDS ORDERED: ONDANSETRON 4 MG/2 ML VIAL ONE (08:55)
--- NOTE | 2022-06-26 10:16 | P.BOP ---
Preoperative diagnosis: Perianal abscess, anal stricture Postoperative diagnosis: same Primary procedure: EUA, Anoscopy, rigid proctoscopy, I&D perianal abscess Estimated blood loss: <0cc Specimen: culture Findings: abscess, hemorrhoids Anesthesia: General Complications: None Drain(s): Other (1/" nugauze packing)
[2022-06-26 10:46] VITALS: TEMP 97.7
[2022-06-26 11:27] VITALS: BP 130/77; O2SAT 96
--- NOTE | 2022-07-03 13:00 | OP ---
Date of Procedure: 06/26/2022 Surgeon: Hossein Lucas MD Preoperative Diagnoses: Perianal abscess, anal stricture. Postoperative Diagnoses: Perianal abscess, anal stricture. Procedures: Examination under anesthesia, anoscopy, rigid proctoscopy, incision and drainage of gabriel anal abscess. Estimated Blood Loss: Less than 10 mL. Specimen: Culture. Findings: Abscess, internal and external hemorrhoids. Anesthesia: General plus local. Packing: A quarter of an inch Nu Gauze. Indication: This is the case of a female, who comes to us with anterior perianal tenderness. She baldwin s history of hemorrhoids, but this is different, with a bulge in the anterior anal area. It is tende r, has fluctuance associated with it. She was seen when she was a . She has some issues w ith the anal strictures and she had several procedures for it. She does not remember the details of that. The benefits, alternatives, and risks of EUA, anoscopy, rigid proctoscopy, incision and draina ge of perianal abscess and possible hemorrhoidectomy were fully explained to the patient, which inclu de, but not limited to infection, bleeding, damage to adjacent structures, anesthesia complication, a nal stricture, anal incontinence, perforation, IA, and even . She also understands this may not relieve the symptoms. She might need more than one surgical intervention. She understood, signed a consent. She also understands the importance of wound care as will be explained to her after the pr ocedure and the findings were obtained. Procedure In Detail: Patient was brought to the operating room, placed in supine position. Anesthes ia was done without complication. Patient was placed in lithotomy position with proper protection. Time-out was call. Rectal examination was done. Once again, we noticed the area of the anus that is tight, although there is still lumen present there. There is an induration on the anterior aspect o f that. There is a kind of hemorrhoid present. No bleeding at this moment. After that, we put a ri gid proctoscope all the way about [address] of that area. We did not see any masses or any p olyps present. We noticed internal and external hemorrhoids again and what looked like an anterior p erianal abscess. No fistula or fissure seen at this moment. At that moment, I proceeded to carefull y place a small anoscope and anoscope showed a window on the side and helped us elevate the anal omari l. No masses seen. At that moment, I proceeded with the needle, found the area of the abscess and a spirated and then after that proceeded with incision in that region. The abscess was explored, locul ations were explored opened. The area was irrigated after cultures were obtained. Local anesthetic was placed and then the area was packed with a quarter of an inch Nu Gauze. Patient tolerated the pr ocedure well. Patient was sent to recovery in stable condition. MANUEL/FOZIA Voice ID: [id number] Report ID: [id number]
== END 2022-06-26 11:22 | disposition home or self-care (01) ==
LOC: OR 08:16
PROVIDERS: ATTEND Surgery
PROC: 0D9Q8ZZ Drainage of Anus, Via Natural or Artificial Opening Endoscopic (ICD-10-PCS; 2022-06-26)
PROC: 0DJD8ZZ Inspection of Lower Intestinal Tract, Via Natural or Artificial Opening Endoscopic (ICD-10-PCS; principal; 2022-06-26 09:45)
DX: K61.0 Anal abscess (principal); K62.4 Stenosis of anus and rectum; I10 Essential (primary) hypertension; J45.909 Unspecified asthma, uncomplicated; E11.9 Type 2 diabetes mellitus without complications; E03.9 Hypothyroidism, unspecified; F41.8 Other specified anxiety disorders; K64.8 Other hemorrhoids; K64.4 Residual hemorrhoidal skin tags
CPT/HCPCS: 87070; 87205 ×2; 87075; 45300; 46050; J2704 ×3; J2001; J3010; J7120; J2405; J1100; J2250

== ENCOUNTER 2022-12-13 03:30 | Emergency (ER) | payer OTHER ==
[2022-12-13] MEDS ORDERED: ONDANSETRON 4 MG/2 ML VIAL ONE (05:13)
[2022-12-13] MEDS ORDERED: FENTANYL CITR 100 MCG/2 ML ONE (05:13)
[2022-12-13 05:44] LABS: Absolute Lymphocytes (CBC) 1.5 K/uL (0.7-4.9); Hematocrit 35.1 % (36.0-45.0); Lymphocytes % 27.6 % (15.3-44.8); MCV 94.3 fL (80-100); MPV 8.5 fL (7.6-11.3); RBC Red Blood Cell Count 3.72 M/uL (3.86-4.86)
[2022-12-13 06:01] LABS: Potassium 3.6 mEq/L (3.5-5.1); Troponin High Sensitivity 4.9 pg/mL (<58.9)
--- NOTE | 2022-12-13 06:06 | ER ---
Nurse's Notes [facility] Name: Radha Santos Age: 62 yrs Sex: Female : 1960 Arrival Date: 12/13/2022 Time: 03:30 Bed 8 Private MD: Diagnosis: Fall on same level, unspecified;Pain in left shoulder;Displaced fracture of shaft of left clavicle-distal Presentation: 12/13 03:30 Chief complaint: Patient states: LEFT SHOULDER PAIN. PT STATES SHE TRIPPED OVER HER ll3 FEET WHEN WALKING TO THE BATHROOM. FELL ON HER LEFT SHOULDER. Care prior to arrival: Medication(s) given: TORADOL 30MG IM. Mechanism of Injury: Fall FELL FROM STANDING POSITION. Trauma event details: Injury occurred in the [facility], Injury occurred: at home. Injury occurred: December 13, 2022 Injury occurred at: 03:00. Activity prior to arrival: None. 03:30 Acuity: SAURAV 3 3 03:30 Method Of Arrival: EMS: [facility] [place] 03:30 Coronavirus screen: At this time, the client does not indicate any symptoms associated ll3 with coronavirus-19. 03:30 Ebola Screen: No symptoms or risks identified at this time. Initial Sepsis Screen: Does ll3 the patient meet any 2 criteria? No. Patient's initial sepsis screen is negative. Does the patient have a suspected source of infection? No. Patient's initial sepsis screen is negative. Risk Assessment: Do you want to hurt yourself or someone else? Patient reports no desire to harm self or others. Onset of symptoms was December 13, 2022 at 03:00. Trauma Activation: Not Applicable Physician: ED Physician; Name: ; Notified At: ; Arrived At: Physician: General Surgeon; Name: ; Notified At: ; Arrived At: Physician: Radiology; Name: ; Notified At: ; Arrived At: Physician: Respiratory; Name: ; Notified At: ; Arrived At: Physician: Lab; Name: ; Notified At: ; Arrived At: Historical: - Immunization history:: Adult Immunizations up to date, Client reports receiving the 2nd dose of the Covid vaccine, Flu vaccine is up to date. - Family history:: not pertinent. - Social history:: Patient/guardian denies using alcohol, street drugs, Smoking status: Patient denies any tobacco usage or history of. Screenin:30 Abuse screen: Denies threats or abuse. Tuberculosis screening: No symptoms or risk ll3 factors identified. 04:00 [facility] ED Fall Risk Assessment (Adult) History of falling in the last 3 months, ll3 including since admission Yes- single mechanical fall (1 pt) Confusion or Disorientation No (0 pts) Intoxicated or Sedated No (0 pts) Impaired Gait Yes (1 pt) Mobility Assist Device Used Yes (1 pt) Altered Elimination No (0 pt) Score/Fall Risk Level 3 or more points = High Risk Maintained a safe environment, Educated pt \T\ family on fall prevention, incl call for assistance when getting out of bed. Nutritional screening: No deficits noted. Primary Survey: 03:30 NO uncontrolled hemorrhage observed. A: The client is awake and alert. The airway is ll3 patent. The client is alert. Airway: patent. Breathing/Chest: Spontaneous respiratory effort, equal unlabored respirations, breath sounds clear bilaterally, regular pattern, symmetrical chest rise and fall. Respiratory effort: spontaneous, unlabored, Breath sounds: clear, bilaterally. Respiratory pattern: regular, Chest inspection: symmetrical rise and fall of the chest. Circulation: No external hemorrhage present. Regular and strong central pulse, skin warm/dry/normal color. Disability Pupils are equal, round, reactive to light and accommodation. Client is alert. Exposure/Environment: A warming method has been applied: A warm blanket has been provided to the patient. 04:30 Reassessment Alertness and Airway: Awake and alert. The airway is patent. Airway Patent ll3 Breathing: Spontaneous respiratory effort, equal unlabored respirations, breath sounds clear bilaterally, regular pattern with symmetrical chest rise and fall. Respiratory effort Spontaneous Unlabored Circulation: No external hemorrhage noted. Regular and strong central pulse, skin warm/dry/normal color. Disability: Alert. Secondary Survey: 03:30 Musculoskeletal: TENDERNESS. ll3 Assessment: 03:30 General: Appears in no apparent distress. uncomfortable, Behavior is calm, cooperative, ll3 appropriate for age. Pain: Complains of pain in anterior aspect of left shoulder Pain currently is 8 out of 10 on a pain scale. at worst was 9 out of 10 on a pain scale. Vital Signs: 03:30 BP 157 / 86; Pulse 86; Resp 20; Temp 98.2(O); Pulse Ox 100% on R/A; Weight 90.72 kg; ll3 Height 5 ft. 7 in. ; Pain 8/10; 04:30 BP 146 / 83; Pulse 85; Resp 20; Pulse Ox 99% ; ll3 05:35 BP 141 / 88; Pulse 81; Resp 17; Pulse Ox 99% ; ll3 06:15 BP 138 / 86; Pulse 80; Resp 17; Pulse Ox 99% ; Pain 3/10; ll3 03:30 Body Mass Index 31.32 (90.72 kg, 170.18 cm) ll3 03:30 Pain Scale: Adult ll3 06:15 Pain Scale: Adult ll3 [place] Coma Score: 03:30 Eye Response: spontaneous(4). Motor Response: obeys commands(6). Verbal Response: ll3 oriented(5). Total: 15. 03:50 Eye Response: spontaneous(4). Motor Response: obeys commands(6). Verbal Response: itz oriented(5). Total: 15. Trauma Score (Adult): 03:30 Eye Response: spontaneous(1); Verbal Response: oriented(1); Motor Response: obeys ll3 commands(2); Systolic BP: > 89 mm Hg(4); Respiratory Rate: 10 to 29 per min(4); Bill Score: 15; Trauma Score: 12 ED Course: 03:30 Patient arrived in ED. rv1 03:30 Bed in low position. Call light in reach. Side rails up X2. ll3 03:30 Patient placed in an exam room, on a stretcher. ll3 03:30 Arm band placed on right wrist. ll3 03:30 Patient maintains SpO2 saturation greater than 95% on room air. ll3 03:33 Ethan Ray MD is Attending Physician. itz 03:54 Triage completed. ll3 04:01 EKG done, by ED staff, reviewed by Ethan Ray MD. jw7 04:15 Missed attempt(s): 22 gauge in right forearm. right breast. kl 04:30 Thermoregulation: warm blanket given to patient. ll3 05:05 Inserted saline lock: 20 gauge in right antecubital area, using aseptic technique. as6 Blood collected. ultrasound guided, long catheter. 06:05 Luis Horta MD is Referral Physician. itz 06:15 No provider procedures requiring assistance completed. IV discontinued, intact, ll3 bleeding controlled, No redness/swelling at site. Pressure dressing applied. 08:32 Shoulder Left (2 View) XRAY In Process Unspecified. EDMS 08:32 XRAY Chest (1 view) In Process Unspecified. EDMS Administered Medications: 05:11 Drug: fentaNYL (PF) IVP 25 mcg Route: IVP; Site: right antecubital; ll3 05:38 Follow up: Response: Marked relief of symptoms ll3 05:11 Drug: Ondansetron IVP 4 mg Route: IVP; Site: right antecubital; ll3 05:38 Follow up: Response: No adverse reaction ll3 06:15 Not Given (Duplicate Order; pain relief from first dose): fentaNYL (PF) IVP 25 mcg IVP ll3 once Medication: 04:00 VIS not applicable for this client. ll3 Intake: 06:19 PO: 0ml; IV: 0ml; Total: 0ml. ll3 Output: 06:19 Urine: 200ml (Voided); Total: 200ml. ll3 Outcome: 05:30 awaiting lab resultsPatient's length of stay extended due to ll3 06:05 Discharge ordered by . itz 06:15 Discharged to home with friend. ll3 06:15 Condition: improved 06:15 Discharge instructions given to patient, Instructed on discharge instructions, follow up and referral plans. medication usage, Demonstrated understanding of instructions, follow-up care, medications, Prescriptions given X 1. 06:20 Patient left the ED. ll3 Signatures: Dispatcher [employer] EDMS Steffany Vasquez RN RN kl Anderson, Corey, MD MD cha Slawson, Ashby, RN RN as6 Daniel Harden RN RN ll3 Magaly Mahmood7 Milagros Ramos rv1 Corrections: (The following items were deleted from the chart) 03:51 03:50 PMHx: Hypothyroidism; itz itz 03:51 03:50 PMHx: GERD; itz itz 03:51 03:50 PMHx: Hypertension; itz itz 03:51 03:50 PMHx: High Cholesterol; itz itz 03:51 03:50 PMHx: Diabetes - NIDDM; itz itz 03:51 03:50 PMHx: Depression; itz itz 03:51 03:50 PMHx: CVA; itz itz 03:51 03:50 PMHx: Anxiety; itz mobley :51 03:50 PMHx: chronic back pain; itz mobley 51 03:50 PMHx: Chronic Abdominal Pain; itz mobley 03:50 PMHx: COPD; itz mobley 51 03:50 PMHx: Bipolar disorder; itz mobley 03:50 PSHx: section; itz mobley 03:50 PSHx: Cholecystectomy; itz mobley 03:50 PSHx: Total abdominal hysterectomy; itz mobley
--- NOTE | 2022-12-13 06:06 | EDPHYS ---
Physician Documentation [facility] Name: Radha Santos Age: 62 yrs Sex: Female : 1960 Arrival Date: 12/13/2022 Time: 03:30 Bed 8 Private MD: ED Physician Ethan Ray HPI: 12/13 03:50 This 62 yrs old Female presents to ER via Unassigned with complaints of Fall itz Injury. 03:50 Details of fall: The patient fell from an upright position, while walking. Onset: The itz symptoms/episode began/occurred just prior to arrival. Associated injuries: The patient sustained anterior aspect of left shoulder and posterior aspect of left shoulder, decreased range of motion. Severity of symptoms: At their worst the symptoms were mild, in the emergency department the symptoms are unchanged. The patient has not experienced similar symptoms in the past. Historical: - Immunization history:: Adult Immunizations up to date, Client reports receiving the 2nd dose of the Covid vaccine, Flu vaccine is up to date. - Family history:: not pertinent. - Social history:: Patient/guardian denies using alcohol, street drugs, Smoking status: Patient denies any tobacco usage or history of. ROS: 03:50 Constitutional: Negative for fever, chills, and weight loss, Eyes: Negative for injury, itz pain, redness, and discharge, ENT: Negative for injury, pain, and discharge, Neck: Negative for injury, pain, and swelling, Cardiovascular: Negative for chest pain, palpitations, and edema, Respiratory: Negative for shortness of breath, cough, wheezing, and pleuritic chest pain, Abdomen/GI: Negative for abdominal pain, nausea, vomiting, diarrhea, and constipation, Back: Negative for injury and pain, : Negative for injury, bleeding, discharge, and swelling, Skin: Negative for injury, rash, and discoloration, Neuro: Negative for headache, weakness, numbness, tingling, and seizure, Psych: Negative for depression, anxiety, suicide ideation, homicidal ideation, and hallucinations, Allergy/Immunology: Negative for hives, rash, and allergies, Endocrine: Negative for neck swelling, polydipsia, polyuria, polyphagia, and marked weight changes, Hematologic/Lymphatic: Negative for swollen nodes, abnormal bleeding, and unusual bruising. 03:50 MS/extremity: Positive for injury or acute deformity, decreased range of motion, of the anterior aspect of left shoulder and posterior aspect of left shoulder. Exam: 03:50 Constitutional: This is a well developed, well nourished patient who is awake, alert, itz and in no acute distress. Head/Face: Normocephalic, atraumatic. Eyes: Pupils equal round and reactive to light, extra-ocular motions intact. Lids and lashes normal. Conjunctiva and sclera are non-icteric and not injected. Cornea within normal limits. Periorbital areas with no swelling, redness, or edema. ENT: Nares patent. No nasal discharge, no septal abnormalities noted. Tympanic membranes are normal and external auditory canals are clear. Oropharynx with no redness, swelling, or masses, exudates, or evidence of obstruction, uvula midline. Mucous membranes moist. Neck: Trachea midline, no thyromegaly or masses palpated, and no cervical lymphadenopathy. Supple, full range of motion without nuchal rigidity, or vertebral point tenderness. No Meningismus. Chest/axilla: Normal chest wall appearance and motion. Nontender with no deformity. No lesions are appreciated. Cardiovascular: Regular rate and rhythm with a normal S1 and S2. No gallops, murmurs, or rubs. Normal PMI, no JVD. No pulse deficits. Respiratory: Lungs have equal breath sounds bilaterally, clear to auscultation and percussion. No rales, rhonchi or wheezes noted. No increased work of breathing, no retractions or nasal flaring. Abdomen/GI: Soft, non-tender, with normal bowel sounds. No distension or tympany. No guarding or rebound. No evidence of tenderness throughout. Back: No spinal tenderness. No costovertebral tenderness. Full range of motion. Skin: Warm, dry with normal turgor. Normal color with no rashes, no lesions, and no evidence of cellulitis. Neuro: Awake and alert, GCS 15, oriented to person, place, time, and situation. Cranial nerves II-XII grossly intact. Motor strength 5/5 in all extremities. Sensory grossly intact. Cerebellar exam normal. Normal gait. Psych: Awake, alert, with orientation to person, place and time. Behavior, mood, and affect are within normal limits. 03:50 Musculoskeletal/extremity: Extremities: grossly normal except: contusion, decreased ROM, pain, swelling, tenderness. 03:55 ECG was reviewed by the Attending Physician. [facility] Vital Signs: 03:30 BP 157 / 86; Pulse 86; Resp 20; Temp 98.2(O); Pulse Ox 100% on R/A; Weight 90.72 kg; ll3 Height 5 ft. 7 in. ; Pain 8/10; 04:30 BP 146 / 83; Pulse 85; Resp 20; Pulse Ox 99% ; ll3 05:35 BP 141 / 88; Pulse 81; Resp 17; Pulse Ox 99% ; ll3 06:15 BP 138 / 86; Pulse 80; Resp 17; Pulse Ox 99% ; Pain 3/10; ll3 03:30 Body Mass Index 31.32 (90.72 kg, 170.18 cm) ll3 03:30 Pain Scale: Adult ll3 06:15 Pain Scale: Adult ll3 [place] Coma Score: 03:30 Eye Response: spontaneous(4). Motor Response: obeys commands(6). Verbal Response: ll3 oriented(5). Total: 15. 03:50 Eye Response: spontaneous(4). Motor Response: obeys commands(6). Verbal Response: itz oriented(5). Total: 15. Trauma Score (Adult): 03:30 Eye Response: spontaneous(1); Verbal Response: oriented(1); Motor Response: obeys ll3 commands(2); Systolic BP: > 89 mm Hg(4); Respiratory Rate: 10 to 29 per min(4); Bill Score: 15; Trauma Score: 12 MDM: 03:33 Patient medically screened. [facility] 03:52 Differential diagnosis: Anterior dislocation without fracture, Posterior dislocation itz with fracture, humeral head fracture, glenoid fracture, DJD, tendonitis. Differential diagnosis: contusion, fracture, multiple trauma, sprain, strain. Data reviewed: vital signs, nurses notes, lab test result(s), EKG, radiologic studies, plain films. Consideration of Admission/Observation Escalation of care including admission/observation considered. I considered the following discharge prescriptions or medication management in the emergency department Medications were administered in the Emergency Department. See MAR. Test considered but Not performed: CT: no ct needed. Historians other than the Patient: EMS: ems, well informed. Care significantly affected by the following chronic conditions: Hypertension, electrolyte abmormality, bladder issures, bipolar. Counseling: I had a detailed discussion with the patient and/or guardian regarding: the historical points, exam findings, and any diagnostic results supporting the discharge/admit diagnosis, lab results, radiology results, the need for outpatient follow up, for definitive care, an protective services case worker, a orthopedic surgeon. 03:54 Care significantly affected by the following chronic conditions: Diabetes, Chronic itz Obstructive Pulmonary Disease, Obesity. 12/13 05:48 Order name: CBC with Automated Diff; Complete Time: 05:56 [facility] 12/13 06:01 Order name: Basic Metabolic Panel; Complete Time: 06:04 [facility] 12/13 06:01 Order name: Troponin High Sensitivity; Complete Time: 06:04 [facility] 12/13 03:34 Order name: XRAY Chest (1 view) 12/13 03:37 Order name: Shoulder Left (2 View) XRAY 12/13 03:34 Order name: EKG; Complete Time: 07:01 12/13 03:34 Order name: Cardiac monitoring; Complete Time: 05:41 12/13 03:34 Order name: EKG - Nurse/Tech; Complete Time: 04:01 12/13 03:34 Order name: IV Saline Lock; Complete Time: 05:05 12/13 03:34 Order name: Labs collected and sent; Complete Time: 05:05 12/13 03:34 Order name: O2 Per Protocol; Complete Time: 05:05 12/13 03:34 Order name: O2 Sat Monitoring; Complete Time: 05:05 12/13 04:04 Order name: Ice pack; Complete Time: 05:41 [facility] 12/13 04:04 Order name: Shoulder Immobilizer; Complete Time: 05:41 [facility] EC:55 Rate is 83 beats/min. Rhythm is regular. QRS [place] is Normal. [place] interval is normal. QRS itz interval is normal. QT interval is normal. No Q waves. T waves are Normal. No ST changes noted. Clinical impression: NSR w/ Non-specific ST/T Changes and No evidence of ischemia. Administered Medications: 05:11 Drug: fentaNYL (PF) IVP 25 mcg Route: IVP; Site: right antecubital; ll3 05:38 Follow up: Response: Marked relief of symptoms 3 05:11 Drug: Ondansetron IVP 4 mg Route: IVP; Site: right antecubital; ll3 05:38 Follow up: Response: No adverse reaction ll3 06:15 Not Given (Duplicate Order; pain relief from first dose): fentaNYL (PF) IVP 25 mcg IVP ll3 once Disposition Summary: 12/13/22 06:05 Discharge Ordered Location: Home itz Problem: new itz Symptoms: have improved itz Condition: Stable itz Diagnosis - Fall on same level, unspecified itz - Pain in left shoulder itz - Displaced fracture of shaft of left clavicle - distal itz Followup: itz - With: Private Physician - When: 2 - 3 days - Reason: Recheck today's complaints, Continuance of care, Re-evaluation by your physician Followup: itz - With: - When: 2 - 3 days - Reason: Recheck today's complaints, Continuance of care, Re-evaluation by your physician Discharge Instructions: - Discharge Summary Sheet itz - Clavicle Fracture itz - Fall Prevention in the Home, Adult itz - Musculoskeletal Pain itz - Shoulder Pain itz - Fall Prevention in the Home, Adult, [id number] itz Forms: - Medication Reconciliation Form itz - Thank You Letter itz - Antibiotic Education itz - Prescription Opioid Use [facility] Prescriptions: - acetaminophen-codeine 300-30 mg Oral tablet - take 2 tablet by ORAL route every 6 hours as needed for pain; 20 tablet; [facility] Refills: 0, Product Selection Permitted Signatures: Dispatcher [employer] Steffany Cortez RN RN kl Anderson, Corey, MD MD cha Loubet, Lynsea, RN RN ll3 Corrections: (The following items were deleted from the chart) 03:51 03:50 PMHx: Hypothyroidism; [facility] itz 03:50 PMHx: GERD; [facility] itz 03:50 PMHx: Hypertension; [facility] itz 51 03:50 PMHx: High Cholesterol; [facility] itz 03:50 PMHx: Diabetes - NIDDM; itz itz 03:50 PMHx: Depression; [facility] itz 51 03:50 PMHx: CVA; [facility] itz 51 03:50 PMHx: Anxiety; [facility] 51 03:50 PMHx: chronic back pain; [facility] itz 51 03:50 PMHx: Chronic Abdominal Pain; [facility] 03:50 PMHx: COPD; [facility] itz 51 03:50 PMHx: Bipolar disorder; itz mobley 03:51 03:50 PSHx: section; itz mobley 03:51 03:50 PSHx: Cholecystectomy; itz mobley :51 03:50 PSHx: Total abdominal hysterectomy; itz mobley
--- OUTSIDE RECORDS SUMMARY | 2022-12-13 08:29 | XMS REPORT | Continuity of Care Document ---
:1960 Author Organization [facility] Address [address] [place] [address] Care Team Providers Name Role Phone Ruth Matias Primary Care Physician Skylar Triana Attending Clinician Unavailable MEHRDAD BLAIR Attending Clinician Unavailable Ruth Matias Attending Clinician Unavailable Sheryl Allison Attending Clinician Unavailable Kusum Iyer Attending Clinician KUSUM PACHECO Attending Clinician Unavailable Doctor Unassigned, [place] Attending Clinician Unavailable NICHOLE LAU Attending Clinician Unavailable Nichole Lau MD Attending Clinician Pob, [facility] Lab Main Attending Clinician Unavailable ROC_R Attending Clinician Unavailable Dariel DAY, Katty S Attending Clinician Sebastián ABARCA, Karen Neely Attending Clinician Unavailable PRAKASH WALLER Attending Clinician Unavailable Christin LEMUS, Prakash Lebron Attending Clinician Earnest Nunez MD Attending Clinician ROXY BAJWA Attending Clinician Unavailable Isreal ENVIRONMENTAL LABORATORY TECHNICIANRoxy Attending Clinician Celso ENVIRONMENTAL LABORATORY TECHNICIANLeon Elizondo Attending Clinician Maribell LEMUS, Mehrdad Hay Attending Clinician Only, Adc Test Attending Clinician Unavailable Stanley Lobo Attending Clinician Unavailable KATTY VIEIRA S Attending Clinician Unavailable Lavell John DO Attending Clinician Radiology Attending Clinician Unavailable RADIOLOGY Attending Clinician Unavailable LEON IRENE Attending Clinician Unavailable Lola DAY, Jona Mccarthy Attending Clinician Mauro Chinchilla MD Attending Clinician Gomez Hawkins MD Attending Clinician Tai Avalos CRNA Attending Clinician Maribel Moody MD, Leonard Attending Clinician AMANDA JORDAN Attending Clinician Unavailable MEHRDAD BLAIR Admitting Clinician Unavailable ROC_Reena Admitting Clinician Unavailable PRAKASH WALLER Admitting Clinician Unavailable Christin LEMUS, Prakash Lebron Admitting Clinician Mehrdad Blair MD Admitting Clinician Stanley Lobo Admitting Clinician Unavailable LAVELL JOHN Admitting Clinician Unavailable Gomez Hawkins MD Admitting Clinician Payers Payer Name Policy Type Policy Number Effective Date Expiration Date S jeovany [facility] [id number] 2020 [facility] 00:00:00 PPO HUMANA CHOICE [id number] 2013 00:00:00 [facility] [id number] (MEDICARE REPLACEMENT/ADVANT AGE - PPO) [facility] HealthSelect 1 [id number] 2021 Common TRS/ERS MCR PPO 00:00:00 Spirit - [facility] MEDICARE NOVITAS [id number] [facility] MEDICARE [facility] [id number] [facility] Problems Condition Condition Condition Status Onset Resolution Last Treating Co mments Source Name Details Category Date Date Treatment Clinician Date GIB GIB Disease Active Univers (gastroint (gastroint 8-17 it y of estinal estinal 00:00: [place] bleeding) bleeding) 00 [facility] Branch Sinus Sinus Disease Active Univers tachycardi tachycardi 6-20 it y of a a 00:00: [place] [address] Medical Branch Anemia Anemia Disease Active Univers 6-20 ity of 00:00: [place] [address] Medical Branch Essential Essential Disease Active Uni vers hypertensi hypertensi 6-20 it y of on on 00:00: [place] [facility] Branch Type 2 Type 2 Disease Active Univers diabetes diabetes 6-20 ity of mellitus mellitus 00:00: [place] without without 00 Medical complicati complicati Br anch on, on, without without long-term long-term current current use of use of insulin insulin Colitis Colitis Disease Active Univers 6-16 ity of 00:00: [address] Branch Obesity Obesity Disease Active Univers (BMI (BMI 6-16 ity of 30-39.9) 30-39.9) 00:00: [place] [address] Medical Branch [id number] Chronic Problem Commo n pain Spirit syndrome - [facility] Chronic Chronic Problem Common sinusitis sinusitis Spir it - [facility] Hypothyroi Hypothyroi Problem C ommon dism dism [facility] Acute Acute Problem Common peptic peptic Spirit ulcer with ulcer, - [facility]I hemorrhage site St AND with unspecifie Luke s perforatio d, with Medic al n but both Center without hemorrhage obstructio and n perforatio n [id number] Other Problem Common chronic Spirit pain [facility] [id number] Anxiety Problem Common [facility] [id number] Gastroesop Problem Co mmon hageal Spirit reflux - CHI disease with [facility] esophagiti Medica l s and Center hemorrhage [id number] Grief Problem Common Spirit - [facility] Recurrent Falling Problem Commo n falls [facility] 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 with diabetic [facility] nephropath Medica l y Center Status Migraine, Problem Common migrainosu unspecifie Sp coretta s d, not - CHI intractabl [facility] e, with [facility] status Medical migrainosu Center s [id number] Pain in Problem Common right knee [facility] [id number] Moderate Problem Comm on persistent Spirit asthma, - [facility]I unspecifie [facility] d whether [facility] complicate Medica l d Center [id number] Fatty Problem Common liver [facility] disease, - [facility] nonalcohol [facility] [id number] Unsteady Problem Comm on gait [facility] [id number] Chronic Problem Comm on tension-ty Spirit pe [facility] [id number] Frontal Problem Commo n sinus pain [facility] [id number] Hospital Problem Comm on discharge [facility] follow-up [facility] [id number] OAB Problem Common (overactiv Spirit e bladder) [facility] [id number] Reactive Problem Commo n depression [facility] [id number] Primary Problem Comm on osteoarthr Spirit itis of - [facility] right [facility] Mixed Mixed Problem Common hyperlipid hyperlipid Sp coretta emia emia - [facility] [id number] Polyneurop Problem Com mon athy Spirit [facility] 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 diabetes with mellitus diabetic [facility] polyneurop Medica l ath, Center without long-term current use of insulin [id number] Hypertensi Problem Com mon ve heart Spirit disease - [facility] without [facility] [id number] Abnormal Problem Comm on mammogram [facility] [id number] Carpal Problem Commo n tunnel Spirit syndrome - CHI of right St wrist [facility] GERD with GERD with Problem Com mon esophagiti esophagiti Sp coretta s s - [facility] [id number] Mild Problem Common intermitte Spirit nt asthma - CHI without St complicati [facility] Center [id number] Non-season Problem Com mon al Spirit allergic - CHI rhinitis St due to [facility] [id number] Bipolar 1 Problem Comm on disorder Spirit with - CHI moderate [facility] bhavik [facility] [id number] Osteoarthr Problem Co mmon itis of Spirit multiple - CHI joints, St unspecifie [facility] d Medical osteoarthr Center itis type Allergies, Adverse Reactions, Alerts Allergy Allergy Status Severity Reaction(s) Onset Inactive Treating Comm ents Source Name Type Date Date Clinician No Known DA Active U [facility] Allergie 3-13 [facility] 00:00: [facility] 00 are [place] NO KNOWN Drug Active Univers ALLERGIE Class ity of S [facility] [address] Drug Active vaginal Common allergy swelling Spirit - [facility] Social History Social Habit Start Date Stop Date Quantity Comments Source History of Common Spirit - Tobacco Use [facility] Sex Assigned At Common Sp coretta - [facility] Alcohol intake 2022-09-29 2022-09-29 0 /d University of 00:00:00 00:00:00 [facility] Exposure to 2022-08-14 2022-08-24 Not sure [facility]-CoV-2 00:00:00 11:14:00 [facility] (event) [place] Tobacco use and 2022-03-22 2022-03-22 Smokeless tobacco Un iversity of exposure 00:00:00 00:00:00 non-user [facility] Smoking Status Start Date Stop Date Source Never smoked tobacco [facility] Medications Ordered Filled Start Stop Current Ordering Indication Dosage Frequency Signature Comments Components Source Medication Medication Date Date Medication? Clinician (SIG) Name Name triamcinolo 2022- No [id number] 40mg Univers ne 09-29 9100 ity of acetonide 17:30: 16:30 [place] (KENALOG) 00 :00 Medical injection Branch 40 mg triamcinolo 2022- No [id number] 40mg 40 mg, Univers ne 09-29 9100 Intramuscu ity of acetonide 17:30: 16:30 [place]CE, [place] 00 :00 1 dose, On Medi gregg injection Fri Branch 40 mg 09/29/22 at 1130, Routine triamcinolo 2022- No [id number] 40mg Univers ne 09-29 9100 ity of acetonide 17:30: 16:30 [place] (KENALOG) 00 :00 Medical injection Branch 40 mg triamcinolo 2022- No [id number] 40mg 40 mg, Univers ne 09-29 9100 Intramuscu ity of acetonide 17:30: 16:30 [place]CE, [place] (KE[place]LOG) 00 :00 1 dose, On Medi gregg injection Fri Branch 40 mg 09/29/22 at 1130, Routine HYDROcodone 2021-08- No 1{tbl} 1 tablet, Univers -acetaminop 08-06 Oral, ity of hen (NORCO 21:00: 21:05 ONCE, 1 Solomon as 5) 5-325 mg 00 :00 dose, On Medi gregg tablet 1 Tue Branch tablet 06/06/22 at 1600, PRINCE pantoprazol Yes 40mg 40 mg, Univ ers e 8-20 Oral, ity of (PROTONIX) 14:00: DAILY, [place] EC tablet 00 First dose Medi gregg 40 mg on Sat Branch 03/25/22 at 0900, Until Discontinu ed, Routine pantoprazol 2021- No 40mg 40 mg, Uni vers e 8-20 [...] ity o f mg tablet 22:28: at [place] 42 bedtime. Medical Branch acetaminoph Yes acetaminop Univers en-codeine 8-19 hen 300 ity of 300-30 mg 22:28: mg-codeine [place] tablet 42 30 mg Medical tablet Branch TAKE 1 TABLET BY MOUTH TWICE DAILY NEEDED traZODone Yes trazodone Uni vers 150 mg 8- 150 mg ity of tablet 22:28: tablet [place] 42 TAKE 1 TO Medical 2 TABLETS Branch BY MOUTH EVERY NIGHT AT BEDTIME NEEDED FOR INSOMNIA traMADoL 50 Yes tramadol Un yan mg tablet 03-24 50 mg ity of 22:28: tablet [place] 42 TAKE 1 Medical TABLET BY Branch MOUTH THREE TIMES DAILY sucralfate Yes sucralfate U nivers 1 gram - 1 gram ity of tablet 22:28: tablet [place] 42 TAKE 1 Medical TABLET BY Branch MOUTH BEFORE MEALS AND AT BEDTIME spironolact Yes spironolac Univers one 25 mg 8- tone 25 mg ity of tablet 22:28: tablet [place] 42 TAKE 1 Medical TABLET BY Branch MOUTH EVERY DAY SITagliptin Yes Januvia Uni vers (JANUVIA) - 100 mg ity of 100 mg 22:28: tablet [place] tablet 42 TAKE 1 Medical TABLET BY Branch MOUTH EVERY DAY FOR 16 DAYS QUEtiapine Yes quetiapine U nivers 300 mg 03-24 300 mg ity of tablet 22:28: tablet [place] 42 TAKE 1 Medical TABLET BY Branch MOUTH EVERY EVENING 1 TO 1.5 HOUR PRIOR TO BEDTIME WITH 300 CALORIES SNACK QUEtiapine Yes quetiapine U nivers 200 mg 8- 200 mg ity of tablet 22:28: tablet [place] 42 TAKE 1 Medical TABLET BY Branch MOUTH TWICE DAILY pantoprazol Yes pantoprazo Univers e 40 mg EC 8- le 40 mg ity o f tablet 22:28: tablet,del [place] 42 ayed Medical release Branch TAKE 1 TABLET BY MOUTH EVERY DAY montelukast Yes montelukas Univers 10 mg 8- t 10 mg ity of tablet 22:28: tablet [place] 42 TAKE 1 Medical TABLET BY Branch MOUTH EVERY DAY IN THE EVENING methocarbam Yes methocarba Univers oL 500 mg 8- mol 500 mg ity of tablet 22:28: tablet [place] 42 TAKE 1 Medical TABLET BY Branch MOUTH THREE TIMES DAILY FOR 5 DAYS meloxicam Yes meloxicam Uni vers 15 mg 8-19 15 mg ity of tablet 22:28: tablet [place] 42 TAKE 1 Medical TABLET BY Branch MOUTH EVERY DAY losartan 50 Yes losartan Un yan mg tablet 8-19 50 mg ity of 22:28: tablet [place] 42 TAKE 1 Medical TABLET BY Branch MOUTH TWICE DAILY levothyroxi Yes levothyrox Univers ne 175 mcg 8- ine 175 ity of tablet 22:28: mcg tablet [place] 42 TAKE 1 Medical TABLET BY Branch MOUTH EVERY MORNING gabapentin Yes gabapentin U nivers 300 mg 8- 300 mg ity of capsule 22:28: capsule [place] [address] TAKE 1 Medical CAPSULE BY Branch MOUTH AT BEDTIME DULoxetine Yes duloxetine U nivers 60 mg 8- 60 mg ity of capsule 22:28: [place] layed Medical release Branch TAKE 1 CAPSULE BY MOUTH TWICE DAILY divalproex Yes divalproex U nivers 500 mg EC 8-19 500 mg ity of tablet 22:28: tablet,del [place] 42 ayed Medical release Branch TAKE 1 TABLET BY MOUTH DAILY amLODIPine Yes amlodipine U nivers 5 mg tablet 8- 5 mg ity of 22:28: tablet [place] [address] TAKE 1 Medical TABLET BY Branch MOUTH [...] ity o f mg tablet 22:28: at [place] [address] bedtime. Medical Branch acetaminoph Yes acetaminop Univers en-codeine 8-19 hen 300 ity of 300-30 mg 22:28: mg-codeine [place] tablet 42 30 mg Medical tablet Branch TAKE 1 TABLET BY MOUTH TWICE DAILY NEEDED traZODone Yes trazodone Uni vers 150 mg 8-19 150 mg ity of tablet 22:28: tablet [place] 42 TAKE 1 TO Medical 2 TABLETS Branch BY MOUTH EVERY NIGHT AT BEDTIME NEEDED FOR INSOMNIA traMADoL 50 Yes tramadol Un yan mg tablet 8-19 50 mg ity of 22:28: tablet [place] 42 TAKE 1 Medical TABLET BY Branch MOUTH THREE TIMES DAILY sucralfate Yes sucralfate U nivers 1 gram 8- 1 gram ity of tablet 22:28: tablet [place] 42 TAKE 1 Medical TABLET BY Branch MOUTH BEFORE MEALS AND AT BEDTIME spironolact Yes spironolac Univers one 25 mg 8- tone 25 mg ity of tablet 22:28: tablet [place] 42 TAKE 1 Medical TABLET BY Branch MOUTH EVERY DAY SITagliptin Yes Januvia Uni vers (JANUVIA) 8- 100 mg ity of 100 mg 22:28: tablet [place] tablet 42 TAKE 1 Medical TABLET BY Branch MOUTH EVERY DAY FOR 16 DAYS QUEtiapine Yes quetiapine U nivers 300 mg 8- 300 mg ity of tablet 22:28: tablet [place] 42 TAKE 1 Medical TABLET BY Branch MOUTH EVERY EVENING 1 TO 1.5 HOUR PRIOR TO BEDTIME WITH 300 CALORIES SNACK QUEtiapine Yes quetiapine U nivers 200 mg 8-19 200 mg ity of tablet 22:28: tablet [place] 42 TAKE 1 Medical TABLET BY Branch MOUTH TWICE DAILY pantoprazol Yes pantoprazo Univers e 40 mg EC 8- le 40 mg ity o f tablet 22:28: tablet,del [place] 42 ayed Medical release Branch TAKE 1 TABLET BY MOUTH EVERY DAY montelukast Yes montelukas Univers 10 mg 8- t 10 mg ity of tablet 22:28: tablet [place] 42 TAKE 1 Medical TABLET BY Branch MOUTH EVERY DAY IN THE EVENING methocarbam Yes methocarba Univers oL 500 mg 8- mol 500 mg ity of tablet 22:28: tablet [place] 42 TAKE 1 Medical TABLET BY Branch MOUTH THREE TIMES DAILY FOR 5 DAYS meloxicam Yes meloxicam Uni vers 15 mg 8-19 15 mg ity of tablet 22:28: tablet [place] 42 TAKE 1 Medical TABLET BY Branch MOUTH EVERY DAY losartan 50 Yes losartan Un yan mg tablet 8-19 50 mg ity of 22:28: tablet [place] 42 TAKE 1 Medical TABLET BY Branch MOUTH TWICE DAILY levothyroxi Yes levothyrox Univers ne 175 mcg 8- ine 175 ity of tablet 22:28: mcg tablet [place] 42 TAKE 1 Medical TABLET BY Branch MOUTH EVERY MORNING gabapentin Yes gabapentin U nivers 300 mg 8- 300 mg ity of capsule 22:28: capsule [place] 42 TAKE 1 Medical CAPSULE BY Branch MOUTH AT BEDTIME DULoxetine Yes duloxetine U nivers 60 mg 8- 60 mg ity of capsule 22:28: [place] layed Medical release Branch TAKE 1 CAPSULE BY MOUTH TWICE DAILY divalproex Yes divalproex U nivers 500 mg EC 8-19 500 mg ity of tablet 22:28: tablet,del [place] 42 ayed Medical release Branch TAKE 1 TABLET BY MOUTH DAILY amLODIPine Yes amlodipine U nivers 5 mg tablet - 5 mg ity of 22:28: tablet [place] 42 TAKE 1 Medical TABLET BY Branch [...] ity o f mg tablet 22:28: at [place] [address] bedtime. Medical Branch acetaminoph Yes acetaminop Univers en-codeine 8-19 hen 300 ity of 300-30 mg 22:28: mg-codeine [place] tablet 42 30 mg Medical tablet Branch TAKE 1 TABLET BY MOUTH TWICE DAILY NEEDED traZODone Yes trazodone Uni vers 150 mg 8-19 150 mg ity of tablet 22:28: tablet [place] 42 TAKE 1 TO Medical 2 TABLETS Branch BY MOUTH EVERY NIGHT AT BEDTIME NEEDED FOR INSOMNIA traMADoL 50 Yes tramadol Un yan mg tablet 03-24 50 mg ity of 22:28: tablet [place] 42 TAKE 1 Medical TABLET BY Branch MOUTH THREE TIMES DAILY sucralfate Yes sucralfate U nivers 1 gram 03-24 1 gram ity of tablet 22:28: tablet [place] 42 TAKE 1 Medical TABLET BY Branch MOUTH BEFORE MEALS AND AT BEDTIME spironolact Yes spironolac Univers one 25 mg - tone 25 mg ity of tablet 22:28: tablet [place] 42 TAKE 1 Medical TABLET BY Branch MOUTH EVERY DAY SITagliptin Yes Januvia Uni vers (JANUVIA) 8 100 mg ity of 100 mg 22:28: tablet [place] tablet 42 TAKE 1 Medical TABLET BY Branch MOUTH EVERY DAY FOR 16 DAYS QUEtiapine Yes quetiapine U nivers 300 mg 03-24 300 mg ity of tablet 22:28: tablet [place] 42 TAKE 1 Medical TABLET BY Branch MOUTH EVERY EVENING 1 TO 1.5 HOUR PRIOR TO BEDTIME WITH 300 CALORIES SNACK QUEtiapine Yes quetiapine U nivers 200 mg 03-24 200 mg ity of tablet 22:28: tablet [place] 42 TAKE 1 Medical TABLET BY Branch MOUTH TWICE DAILY pantoprazol Yes pantoprazo Univers e 40 mg EC 03-24 le 40 mg ity o f tablet 22:28: tablet,del [place] 42 ayed Medical release Branch TAKE 1 TABLET BY MOUTH EVERY DAY montelukast Yes montelukas Univers 10 mg 03-24 t 10 mg ity of tablet 22:28: tablet [place] 42 TAKE 1 Medical TABLET BY Branch MOUTH EVERY DAY IN THE EVENING methocarbam Yes methocarba Univers oL 500 mg 03-24 mol 500 mg ity of tablet 22:28: tablet [place] 42 TAKE 1 Medical TABLET BY Branch MOUTH THREE TIMES DAILY FOR 5 DAYS meloxicam Yes meloxicam Uni vers 15 mg 03-24 15 mg ity of tablet 22:28: tablet [place] 42 TAKE 1 Medical TABLET BY Branch MOUTH EVERY DAY losartan 50 Yes losartan Un yan mg tablet 03-24 50 mg ity of 22:28: tablet [place] 42 TAKE 1 Medical TABLET BY Branch MOUTH TWICE DAILY levothyroxi 2022-0 Yes levothyrox Univers ne 175 mcg 8-19 ine 175 ity of tablet 22:28: mcg tablet [place] 42 TAKE 1 Medical TABLET BY Branch MOUTH EVERY MORNING gabapentin Yes gabapentin U nivers 300 mg 8-19 300 mg ity of capsule 22:28: capsule [place] 42 TAKE 1 Medical CAPSULE BY Branch MOUTH AT BEDTIME DULoxetine Yes duloxetine U nivers 60 mg 8-19 60 mg ity of capsule 22:28: [place] layed Medical release Branch TAKE 1 CAPSULE BY MOUTH TWICE DAILY divalproex Yes divalproex U nivers 500 mg EC 8-19 500 mg ity of tablet 22:28: tablet,del [place] 42 ayed Medical release Branch TAKE 1 TABLET BY MOUTH DAILY amLODIPine Yes amlodipine U nivers 5 mg tablet 8- 5 mg ity of 22:28: tablet [place] 42 TAKE 1 Medical TABLET BY Branch [...] ity o f mg tablet 22:28: at [place] [address] bedtime. Medical Branch acetaminoph Yes acetaminop Univers en-codeine 8-19 hen 300 ity of 300-30 mg 22:28: mg-codeine [place] tablet 42 30 mg Medical tablet Branch TAKE 1 TABLET BY MOUTH TWICE DAILY NEEDED traZODone Yes trazodone Uni vers 150 mg 8-19 150 mg ity of tablet 22:28: tablet [place] 42 TAKE 1 TO Medical 2 TABLETS Branch BY MOUTH EVERY NIGHT AT BEDTIME NEEDED FOR INSOMNIA traMADoL 50 Yes tramadol Un yan mg tablet 8-19 50 mg ity of 22:28: tablet [place] 42 TAKE 1 Medical TABLET BY Branch MOUTH THREE TIMES DAILY sucralfate Yes sucralfate U nivers 1 gram 03-24 1 gram ity of tablet 22:28: tablet [place] 42 TAKE 1 Medical TABLET BY Branch MOUTH BEFORE MEALS AND AT BEDTIME spironolact Yes spironolac Univers one 25 mg - tone 25 mg ity of tablet 22:28: tablet [place] 42 TAKE 1 Medical TABLET BY Branch MOUTH EVERY DAY SITagliptin Yes Januvia Uni vers (JANUVIA) 8 100 mg ity of 100 mg 22:28: tablet [place] tablet 42 TAKE 1 Medical TABLET BY Branch MOUTH EVERY DAY FOR 16 DAYS QUEtiapine Yes quetiapine U nivers 300 mg 03-24 300 mg ity of tablet 22:28: tablet [place] 42 TAKE 1 Medical TABLET BY Branch MOUTH EVERY EVENING 1 TO 1.5 HOUR PRIOR TO BEDTIME WITH 300 CALORIES SNACK QUEtiapine Yes quetiapine U nivers 200 mg 03-24 200 mg ity of tablet 22:28: tablet [place] 42 TAKE 1 Medical TABLET BY Branch MOUTH TWICE DAILY pantoprazol Yes pantoprazo Univers e 40 mg EC 03-24 le 40 mg ity o f tablet 22:28: tablet,del [place] 42 ayed Medical release Branch TAKE 1 TABLET BY MOUTH EVERY DAY montelukast Yes montelukas Univers 10 mg 03-24 t 10 mg ity of tablet 22:28: tablet [place] 42 TAKE 1 Medical TABLET BY Branch MOUTH EVERY DAY IN THE EVENING methocarbam Yes methocarba Univers oL 500 mg 03-24 mol 500 mg ity of tablet 22:28: tablet [place] 42 TAKE 1 Medical TABLET BY Branch MOUTH THREE TIMES DAILY FOR 5 DAYS meloxicam Yes meloxicam Uni vers 15 mg 03-24 15 mg ity of tablet 22:28: tablet [place] 42 TAKE 1 Medical TABLET BY Branch MOUTH EVERY DAY losartan 50 Yes losartan Un yan mg tablet 03-24 50 mg ity of 22:28: tablet [place] 42 TAKE 1 Medical TABLET BY Branch MOUTH TWICE DAILY levothyroxi Yes levothyrox Univers ne 175 mcg - ine 175 ity of tablet 22:28: mcg tablet [place] 42 TAKE 1 Medical TABLET BY Branch MOUTH EVERY MORNING gabapentin Yes gabapentin U nivers 300 mg 8-19 300 mg ity of capsule 22:28: capsule [place] 42 TAKE 1 Medical CAPSULE BY Branch MOUTH AT BEDTIME DULoxetine Yes duloxetine U nivers 60 mg 8-19 60 mg ity of capsule 22:28: [place] layed Medical release Branch TAKE 1 CAPSULE BY MOUTH TWICE DAILY divalproex Yes divalproex U nivers 500 mg EC 8-19 500 mg ity of tablet 22:28: tablet,del [place] 42 ayed Medical release Branch TAKE 1 TABLET BY MOUTH DAILY amLODIPine Yes amlodipine U nivers 5 mg tablet 8-19 5 mg ity of 22:28: tablet [place] 42 TAKE 1 Medical TABLET BY Branch [...] ity o f mg tablet 22:28: at [place] [address] bedtime. Medical Branch acetaminoph Yes acetaminop Univers en-codeine 8-19 hen 300 ity of 300-30 mg 22:28: mg-codeine [place] tablet 42 30 mg Medical tablet Branch TAKE 1 TABLET BY MOUTH TWICE DAILY NEEDED traZODone Yes trazodone Uni vers 150 mg 8-19 150 mg ity of tablet 22:28: tablet [place] 42 TAKE 1 TO Medical 2 TABLETS Branch BY MOUTH EVERY NIGHT AT BEDTIME NEEDED FOR INSOMNIA traMADoL 50 Yes tramadol Un yan mg tablet 8-19 50 mg ity of 22:28: tablet [place] 42 TAKE 1 Medical TABLET BY Branch MOUTH THREE TIMES DAILY sucralfate Yes sucralfate U nivers 1 gram 8-19 1 gram ity of tablet 22:28: tablet [place] 42 TAKE 1 Medical TABLET BY Branch MOUTH BEFORE MEALS AND AT BEDTIME spironolact Yes spironolac Univers one 25 mg 8- tone 25 mg ity of tablet 22:28: tablet [place] 42 TAKE 1 Medical TABLET BY Branch MOUTH EVERY DAY SITagliptin Yes Januvia Uni vers (JANUVIA) 8- 100 mg ity of 100 mg 22:28: tablet [place] tablet 42 TAKE 1 Medical TABLET BY Branch MOUTH EVERY DAY FOR 16 DAYS QUEtiapine Yes quetiapine U nivers 300 mg 8- 300 mg ity of tablet 22:28: tablet [place] 42 TAKE 1 Medical TABLET BY Branch MOUTH EVERY EVENING 1 TO 1.5 HOUR PRIOR TO BEDTIME WITH 300 CALORIES SNACK QUEtiapine Yes quetiapine U nivers 200 mg 8- 200 mg ity of tablet 22:28: tablet [place] 42 TAKE 1 Medical TABLET BY Branch MOUTH TWICE DAILY pantoprazol Yes pantoprazo Univers e 40 mg EC 8- le 40 mg ity o f tablet 22:28: tablet,del [place] 42 ayed Medical release Branch TAKE 1 TABLET BY MOUTH EVERY DAY montelukast Yes montelukas Univers 10 mg 8- t 10 mg ity of tablet 22:28: tablet [place] 42 TAKE 1 Medical TABLET BY Branch MOUTH EVERY DAY IN THE EVENING methocarbam Yes methocarba Univers oL 500 mg 8 mol 500 mg ity of tablet 22:28: tablet [place] 42 TAKE 1 Medical TABLET BY Branch MOUTH THREE TIMES DAILY FOR 5 DAYS meloxicam Yes meloxicam Uni vers 15 mg 8 15 mg ity of tablet 22:28: tablet [place] 42 TAKE 1 Medical TABLET BY Branch MOUTH EVERY DAY losartan 50 Yes losartan Un yan mg tablet 03-24 50 mg ity of 22:28: tablet [place] 42 TAKE 1 Medical TABLET BY Branch MOUTH TWICE DAILY levothyroxi Yes levothyrox Univers ne 175 mcg - ine 175 ity of tablet 22:28: mcg tablet [place] 42 TAKE 1 Medical TABLET BY Branch MOUTH EVERY MORNING gabapentin Yes gabapentin U nivers 300 mg 8- 300 mg ity of capsule 22:28: capsule [place] 42 TAKE 1 Medical CAPSULE BY Branch MOUTH AT BEDTIME DULoxetine Yes duloxetine U nivers 60 mg 8- 60 mg ity of capsule 22:28: capsule,[place] 42 layed Medical release Branch TAKE 1 CAPSULE BY MOUTH TWICE DAILY divalproex Yes divalproex U nivers 500 mg EC 8-19 500 mg ity of tablet 22:28: tablet,del [place] 42 ayed Medical release Branch TAKE 1 TABLET BY MOUTH DAILY amLODIPine Yes amlodipine U nivers 5 mg tablet 8-19 5 mg ity of 22:28: tablet [place] [address] TAKE 1 Medical TABLET BY Branch MOUTH [...] ity o f mg tablet 22:28: at [place] [address] bedtime. Medical Branch acetaminoph Yes acetaminop [facility] en-codeine 8-19 hen 300 ity of 300-30 mg 22:28: mg-codeine [place] tablet 42 30 mg Medical tablet Branch TAKE 1 TABLET BY MOUTH TWICE DAILY NEEDED traZODone Yes trazodone Uni vers 150 mg 8-19 150 mg ity of tablet 22:28: tablet [place] [address] TAKE 1 TO Medical 2 TABLETS Branch BY MOUTH EVERY NIGHT AT BEDTIME NEEDED FOR INSOMNIA traMADoL 50 Yes tramadol Un yan mg tablet 8-19 50 mg ity of 22:28: tablet [place] [address] TAKE 1 Medical TABLET BY Branch MOUTH THREE TIMES DAILY sucralfate Yes sucralfate U nivers 1 gram 8-19 1 gram ity of tablet 22:28: tablet [place] [address] TAKE 1 Medical TABLET BY Branch MOUTH BEFORE MEALS AND AT BEDTIME spironolact Yes spironolac [facility] one 25 mg 8-19 tone 25 mg ity of tablet 22:28: tablet [place] [address] TAKE 1 Medical TABLET BY Branch MOUTH EVERY DAY SITagliptin Yes Januvia Uni vers (JANUVIA) 8- 100 mg ity of 100 mg 22:28: tablet [place] tablet 42 TAKE 1 Medical TABLET BY Branch MOUTH EVERY DAY FOR 16 DAYS QUEtiapine Yes quetiapine U nivers 300 mg 03-24 300 mg ity of tablet 22:28: tablet [place] 42 TAKE 1 Medical TABLET BY Branch [...] 22:28: tablet,del [place] 42 ayed Medical release [place] TAKE 1 TABLET BY MOUTH EVERY DAY montelukast Yes montelukas Univers 10 mg 03-24 t 10 mg ity of tablet 22:28: tablet [place] 42 TAKE 1 Medical TABLET BY Branch MOUTH EVERY DAY IN THE EVENING methocarbam Yes methocarba [facility] oL 500 mg 03-24 mol 500 mg ity of tablet 22:28: tablet [place] 42 TAKE 1 Medical TABLET BY Branch MOUTH THREE TIMES DAILY FOR 5 DAYS meloxicam Yes meloxicam Uni vers 15 mg 03-24 15 mg ity of tablet 22:28: tablet [place] 42 TAKE 1 Medical TABLET BY Branch MOUTH EVERY DAY losartan 50 Yes losartan Un yan mg tablet 03-24 50 mg ity of 22:28: tablet [place] 42 TAKE 1 Medical TABLET BY Branch MOUTH TWICE DAILY levothyroxi Yes levothyrox Univers ne 175 mcg - ine 175 ity of tablet 22:28: mcg tablet [place] 42 TAKE 1 Medical TABLET BY Branch MOUTH EVERY MORNING gabapentin Yes gabapentin U nivers 300 mg 03-24 300 mg ity of capsule 22:28: capsule [place] 42 TAKE 1 Medical CAPSULE BY Branch MOUTH AT BEDTIME DULoxetine Yes duloxetine U nivers 60 mg 8 60 mg [facility]y of capsule 22:28: [place] layed Medical release [place] TAKE 1 CAPSULE BY MOUTH TWICE DAILY divalproex Yes divalproex U nivers 500 mg EC 8-19 500 mg ity of tablet 22:28: tablet,del [place] 42 ayed Medical release Branch TAKE 1 TABLET BY MOUTH DAILY amLODIPine Yes amlodipine U nivers 5 mg tablet 8 5 mg ity of 22:28: tablet [place] 42 TAKE 1 Medical TABLET BY Branch [...] ity o f mg tablet 22:28: at [place] [address] bedtime. Medical Branch acetaminoph Yes acetaminop [facility] en-codeine 8- hen 300 ity of 300-30 mg 22:28: mg-codeine [place] tablet 42 30 mg Medical tablet Branch TAKE 1 TABLET BY MOUTH TWICE DAILY NEEDED traZODone Yes trazodone Uni vers 150 mg 8 150 mg ity of tablet 22:28: tablet [place] 42 TAKE 1 TO Medical 2 TABLETS Branch BY MOUTH EVERY NIGHT AT BEDTIME NEEDED FOR INSOMNIA traMADoL 50 Yes tramadol Un y[facility] mg tablet 03-24 50 mg ity of 22:28: tablet [place] 42 TAKE 1 Medical TABLET BY Branch MOUTH THREE TIMES DAILY sucralfate Yes sucralfate U nivers 1 gram - 1 gram ity of tablet 22:28: tablet [place] 42 TAKE 1 Medical TABLET BY Branch MOUTH BEFORE MEALS AND AT BEDTIME spironolact Yes spironolac Univers one 25 mg 8- tone 25 mg ity of tablet 22:28: tablet [place] 42 TAKE 1 Medical TABLET BY Branch MOUTH EVERY DAY SITagliptin Yes Januvia Uni vers (JANUVIA) 8- 100 mg ity of 100 mg 22:28: tablet [place] tablet 42 TAKE 1 Medical TABLET BY Branch MOUTH EVERY DAY FOR 16 DAYS QUEtiapine Yes quetiapine U nivers 300 mg 8 300 mg ity of tablet 22:28: tablet [place] 42 TAKE 1 Medical TABLET BY Branch MOUTH EVERY EVENING 1 TO 1.5 HOUR PRIOR TO BEDTIME WITH 300 CALORIES SNACK QUEtiapine Yes quetiapine U nivers 200 mg 8- 200 mg ity of tablet 22:28: tablet [place] 42 TAKE 1 Medical TABLET BY Branch MOUTH TWICE DAILY pantoprazol Yes pantoprazo Univers e 40 mg EC 8 le 40 mg ity o f tablet 22:28: tablet,del [place] 42 ayed Medical release [place] TAKE 1 TABLET BY MOUTH EVERY DAY montelukast Yes montelukas Univers 10 mg 03-24 t 10 mg ity of tablet 22:28: tablet [place] 42 TAKE 1 Medical TABLET BY Branch MOUTH EVERY DAY IN THE EVENING methocarbam Yes methocarba Univers oL 500 mg 8 mol 500 mg ity of tablet 22:28: tablet [place] 42 TAKE 1 Medical TABLET BY Branch MOUTH THREE TIMES DAILY FOR 5 DAYS meloxicam Yes meloxicam Uni vers 15 mg 8 15 mg ity of tablet 22:28: tablet [place] 42 TAKE 1 Medical TABLET BY Branch MOUTH EVERY DAY losartan 50 Yes losartan Un yan mg tablet 03-24 50 mg ity of 22:28: tablet [place] 42 TAKE 1 Medical TABLET BY Branch MOUTH TWICE DAILY levothyroxi Yes levothyrox Univers ne 175 mcg - ine 175 ity of tablet 22:28: mcg tablet [place] 42 TAKE 1 Medical TABLET BY Branch MOUTH EVERY MORNING gabapentin Yes gabapentin U nivers 300 mg 03-24 300 mg ity of capsule 22:28: capsule [place] 42 TAKE 1 Medical CAPSULE BY Branch MOUTH AT BEDTIME DULoxetine Yes duloxetine U nivers 60 mg 8 60 mg ity of capsule 22:28: [place] 42 layed Medical release [place] TAKE 1 CAPSULE BY MOUTH TWICE DAILY divalproex Yes divalproex U nivers 500 mg EC 8 500 mg ity of tablet 22:28: tablet,del [place] 42 [facility] Medical release [place] TAKE 1 TABLET BY MOUTH DAILY amLODIPine Yes amlodipine U nivers 5 mg tablet 8-19 5 mg ity of 22:28: tablet [place] 42 TAKE 1 Medical TABLET BY Branch [...] ity o f mg tablet 22:28: at [place] 42 bedtime. Medical Branch acetaminoph Yes acetaminop Univers en-codeine 8-19 hen 300 ity of 300-30 mg 22:28: mg-codeine [place] tablet 42 30 mg Medical tablet Branch TAKE 1 TABLET BY MOUTH TWICE DAILY NEEDED traZODone Yes trazodone Uni vers 150 mg 8- 150 mg ity of tablet 22:28: tablet [place] 42 TAKE 1 TO Medical 2 TABLETS Branch BY MOUTH EVERY NIGHT AT BEDTIME NEEDED FOR INSOMNIA traMADoL 50 Yes tramadol Un yan mg tablet - 50 mg ity of 22:28: tablet [place] 42 TAKE 1 Medical TABLET BY Branch MOUTH THREE TIMES DAILY sucralfate Yes sucralfate U nivers 1 gram 8- 1 gram ity of tablet 22:28: tablet [place] 42 TAKE 1 Medical TABLET BY Branch MOUTH BEFORE MEALS AND AT BEDTIME spironolact Yes spironolac Univers one 25 mg 8- tone 25 mg ity of tablet 22:28: tablet [place] 42 TAKE 1 Medical TABLET BY Branch MOUTH EVERY DAY SITagliptin Yes Januvia Uni vers (JANUVIA) 8- 100 mg ity of 100 mg 22:28: tablet [place] tablet 42 TAKE 1 Medical TABLET BY Branch MOUTH EVERY DAY FOR 16 DAYS QUEtiapine Yes quetiapine U nivers 300 mg 8-19 300 mg ity of tablet 22:28: tablet [place] 42 TAKE 1 Medical TABLET BY Branch MOUTH EVERY EVENING 1 TO 1.5 HOUR PRIOR TO BEDTIME WITH 300 CALORIES SNACK QUEtiapine Yes quetiapine U nivers 200 mg 8 200 mg ity of tablet 22:28: tablet [place] 42 TAKE 1 Medical TABLET BY Branch MOUTH TWICE DAILY pantoprazol Yes pantoprazo Univers e 40 mg EC 8 le 40 mg ity o f tablet 22:28: tablet,del [place] [address] [facility] TAKE 1 TABLET BY MOUTH EVERY DAY montelukast Yes montelukas Univers 10 mg 8 t 10 mg ity of tablet 22:28: tablet [place] 42 TAKE 1 Medical TABLET BY Branch MOUTH EVERY DAY IN THE EVENING methocarbam Yes methocarba Univers oL 500 mg 03-24 mol 500 mg ity of tablet 22:28: tablet [place] 42 TAKE 1 Medical TABLET BY Branch MOUTH THREE TIMES DAILY FOR 5 DAYS meloxicam Yes meloxicam Uni vers 15 mg 8- 15 mg ity of tablet 22:28: tablet [place] 42 TAKE 1 Medical TABLET BY Branch MOUTH EVERY DAY losartan 50 Yes losartan Un yan mg tablet 03-24 50 mg ity of 22:28: tablet [place] 42 TAKE 1 Medical TABLET BY Branch MOUTH TWICE DAILY levothyroxi Yes levothyrox Univers ne 175 mcg 03-24 ine 175 ity of tablet 22:28: mcg tablet [place] 42 TAKE 1 Medical TABLET BY Branch MOUTH EVERY MORNING gabapentin Yes gabapentin U nivers 300 mg 03-24 300 mg ity of capsule 22:28: capsule [place] 42 TAKE 1 Medical CAPSULE BY Branch MOUTH AT BEDTIME DULoxetine Yes duloxetine U nivers 60 mg 03-24 60 mg ity of capsule 22:28: capsule,[place] [address] [facility] TAKE 1 CAPSULE BY MOUTH TWICE DAILY divalproex Yes divalproex U nivers 500 mg EC 8 500 mg ity of tablet 22:28: tablet,del [place] [address] [facility] TAKE 1 TABLET BY MOUTH DAILY amLODIPine Yes amlodipine U nivers 5 mg tablet 03-24 5 mg ity of 22:28: tablet [place] 42 TAKE 1 Medical TABLET BY Branch [...] ity o f mg tablet 22:28: at [place] [address] bedtime. Medical Branch acetaminoph Yes acetaminop Univers en-codeine 8-19 hen 300 ity of 300-30 mg 22:28: mg-codeine [place] tablet 42 30 mg Medical tablet Branch TAKE 1 TABLET BY MOUTH TWICE DAILY NEEDED traZODone Yes trazodone Uni vers 150 mg 8-19 150 mg ity of tablet 22:28: tablet [place] 42 TAKE 1 TO Medical 2 TABLETS Branch BY MOUTH EVERY NIGHT AT BEDTIME NEEDED FOR INSOMNIA traMADoL 50 Yes tramadol Un yan mg tablet 03-24 50 mg ity of 22:28: tablet [place] 42 TAKE 1 Medical TABLET BY Branch MOUTH THREE TIMES DAILY sucralfate Yes sucralfate U nivers 1 gram - 1 gram ity of tablet 22:28: tablet [place] 42 TAKE 1 Medical TABLET BY Branch MOUTH BEFORE MEALS AND AT BEDTIME spironolact Yes spironolac Univers one 25 mg 8- tone 25 mg ity of tablet 22:28: tablet [place] 42 TAKE 1 Medical TABLET BY Branch MOUTH EVERY DAY SITagliptin Yes Januvia Uni vers (JANUVIA) 8-19 100 mg ity of 100 mg 22:28: tablet [place] tablet 42 TAKE 1 Medical TABLET BY Branch MOUTH EVERY DAY FOR 16 DAYS QUEtiapine Yes quetiapine U nivers 300 mg 8-19 300 mg ity of tablet 22:28: tablet [place] 42 TAKE 1 Medical TABLET BY Branch MOUTH EVERY EVENING 1 TO 1.5 HOUR PRIOR TO BEDTIME WITH 300 CALORIES SNACK QUEtiapine Yes quetiapine U nivers 200 mg 8-19 200 mg ity of tablet 22:28: tablet [place] 42 TAKE 1 Medical TABLET BY Branch MOUTH TWICE DAILY pantoprazol Yes pantoprazo Univers e 40 mg EC 8 le 40 mg ity o f tablet 22:28: tablet,del [place] 42 ay Medical release [place] TAKE 1 TABLET BY MOUTH EVERY DAY montelukast Yes montelukas Univers 10 mg 8- t 10 mg ity of tablet 22:28: tablet [place] 42 TAKE 1 Medical TABLET BY Branch MOUTH EVERY DAY IN THE EVENING methocarbam Yes methocarba Univers oL 500 mg 8 mol 500 mg ity of tablet 22:28: tablet [place] 42 TAKE 1 Medical TABLET BY Branch MOUTH THREE TIMES DAILY FOR 5 DAYS meloxicam Yes meloxicam Uni vers 15 mg 8 15 mg ity of tablet 22:28: tablet [place] 42 TAKE 1 Medical TABLET BY Branch MOUTH EVERY DAY losartan 50 Yes losartan Un yan mg tablet 03-24 50 mg ity of 22:28: tablet [place] 42 TAKE 1 Medical TABLET BY Branch MOUTH TWICE DAILY levothyroxi Yes levothyrox Univers ne 175 mcg 03-24 ine 175 ity of tablet 22:28: mcg tablet [place] 42 TAKE 1 Medical TABLET BY Branch MOUTH EVERY MORNING gabapentin Yes gabapentin U nivers 300 mg 8 300 mg ity of capsule 22:28: capsule [place] 42 TAKE 1 Medical CAPSULE BY Branch MOUTH AT BEDTIME DULoxetine Yes duloxetine U nivers 60 mg 8 60 mg ity of capsule 22:28: capsule[place] [address] [facility] TAKE 1 CAPSULE BY MOUTH TWICE DAILY divalproex Yes divalproex U nivers 500 mg EC 8 500 mg ity of tablet 22:28: tablet,del [place] 42 [facility] Medical release [place] TAKE 1 TABLET BY MOUTH DAILY amLODIPine Yes amlodipine U nivers 5 mg tablet 03-24 5 mg ity of 22:28: tablet [place] 42 TAKE 1 Medical TABLET BY Branch MOUTH TWICE DAILY acetaminoph Yes 1{tbl} Take 1 Un yan en-codeine 8-19 tablet by ity of (TYLENOL-CO 22:28: mouth 3 [place] DEINE #4) 42 (three) Medical 300-60 mg times Branch tablet daily. metFORMIN 2022-0 Yes 500mg Take 500 Uni vers (GLUCOPHAGE 8-19 mg by ity of ) 500 mg 22:28: mouth 2 [place] tablet 42 (two) Medical times Branch daily with meals. simvastatin Yes 20mg Take 20 mg Univers (ZOCOR) 20 8-19 by mouth ity o f mg tablet 22:28: at [place] [address] bedtime. Medical Branch acetaminoph Yes acetaminop Univers en-codeine 8- hen 300 ity of 300-30 mg 22:28: mg-codeine [place] tablet 42 30 mg Medical tablet Branch TAKE 1 TABLET BY MOUTH TWICE DAILY NEEDED traZODone Yes trazodone Uni vers 150 mg 8- 150 mg ity of tablet 22:28: tablet [place] 42 TAKE 1 TO Medical 2 TABLETS Branch BY MOUTH EVERY NIGHT AT BEDTIME NEEDED FOR INSOMNIA traMADoL 50 Yes tramadol Un yan mg tablet 03-24 50 mg ity of 22:28: tablet [place] 42 TAKE 1 Medical TABLET BY Branch MOUTH THREE TIMES DAILY sucralfate Yes sucralfate U nivers 1 gram - 1 gram ity of tablet 22:28: tablet [place] 42 TAKE 1 Medical TABLET BY Branch MOUTH BEFORE MEALS AND AT BEDTIME spironolact Yes spironolac Univers one 25 mg - tone 25 mg ity of tablet 22:28: tablet [place] 42 TAKE 1 Medical TABLET BY Branch MOUTH EVERY DAY SITagliptin Yes Januvia Uni vers (JANUVIA) 8- 100 mg ity of 100 mg 22:28: tablet [place] tablet 42 TAKE 1 Medical TABLET BY Branch MOUTH EVERY DAY FOR 16 DAYS QUEtiapine Yes quetiapine U nivers 300 mg 8- 300 mg ity of tablet 22:28: tablet [place] 42 TAKE 1 Medical TABLET BY Branch MOUTH EVERY EVENING 1 TO 1.5 HOUR PRIOR TO BEDTIME WITH 300 CALORIES SNACK QUEtiapine Yes quetiapine U nivers 200 mg 8- 200 mg ity of tablet 22:28: tablet [place] 42 TAKE 1 Medical TABLET BY Branch MOUTH TWICE DAILY pantoprazol Yes pantoprazo Univers e 40 mg EC 8- le 40 mg ity o f tablet 22:28: tablet,del [place] 42 ayed Medical release Branch TAKE 1 TABLET BY MOUTH EVERY DAY montelukast Yes montelukas Univers 10 mg 8- t 10 mg ity of tablet 22:28: tablet [place] 42 TAKE 1 Medical TABLET BY Branch MOUTH EVERY DAY IN THE EVENING methocarbam Yes methocarba Univers oL 500 mg 8-19 mol 500 mg ity of tablet 22:28: tablet [place] 42 TAKE 1 Medical TABLET BY Branch MOUTH THREE TIMES DAILY FOR 5 DAYS meloxicam Yes meloxicam Uni vers 15 mg 8-19 15 mg ity of tablet 22:28: tablet [place] 42 TAKE 1 Medical TABLET BY Branch MOUTH EVERY DAY losartan 50 Yes losartan Un yan mg tablet 8-19 50 mg ity of 22:28: tablet [place] 42 TAKE 1 Medical TABLET BY Branch MOUTH TWICE DAILY levothyroxi Yes levothyrox Univers ne 175 mcg 8- ine 175 ity of tablet 22:28: mcg tablet [place] 42 TAKE 1 Medical TABLET BY Branch MOUTH EVERY MORNING gabapentin Yes gabapentin U nivers 300 mg 8-19 300 mg ity of capsule 22:28: capsule [place] 42 TAKE 1 Medical CAPSULE BY Branch MOUTH AT BEDTIME DULoxetine Yes duloxetine U nivers 60 mg 8-19 60 mg ity of capsule 22:28: capsule,[place] 42 layed Medical release Branch TAKE 1 CAPSULE BY MOUTH TWICE DAILY divalproex Yes divalproex U nivers 500 mg EC 8-19 500 mg ity of tablet 22:28: tablet,del [place] 42 ayed Medical release [place] TAKE 1 TABLET BY MOUTH DAILY amLODIPine Yes amlodipine U nivers 5 mg tablet 8-19 5 mg ity of 22:28: tablet [place] 42 TAKE 1 Medical TABLET BY Branch [...] Medical times Branch daily with meals. simvastatin 2022-0 Yes 20mg Take 20 mg Univers (ZOCOR) 20 8-19 by mouth ity o f mg tablet 22:28: at [place] [address] bedtime. Medical Branch acetaminoph Yes acetaminop Univers en-codeine 8- hen 300 ity of 300-30 mg 22:28: mg-codeine [place] tablet 42 30 mg Medical tablet Branch TAKE 1 TABLET BY MOUTH TWICE DAILY NEEDED traZODone Yes trazodone Uni vers 150 mg 03-24 150 mg ity of tablet 22:28: tablet [place] 42 TAKE 1 TO Medical 2 TABLETS Branch BY MOUTH EVERY NIGHT AT BEDTIME NEEDED FOR INSOMNIA traMADoL 50 Yes tramadol Un yan mg tablet 03-24 50 mg ity of 22:28: tablet [place] 42 TAKE 1 Medical TABLET BY Branch MOUTH THREE TIMES DAILY sucralfate Yes sucralfate U nivers 1 gram 03-24 1 gram ity of tablet 22:28: tablet [place] 42 TAKE 1 Medical TABLET BY Branch MOUTH BEFORE MEALS AND AT BEDTIME spironolact Yes spironolac Univers one 25 mg - tone 25 mg ity of tablet 22:28: tablet [place] 42 TAKE 1 Medical TABLET BY Branch MOUTH EVERY DAY SITagliptin Yes Januvia Uni vers (JANUVIA) 03-24 100 mg ity of 100 mg 22:28: tablet [place] tablet 42 TAKE 1 Medical TABLET BY Branch MOUTH EVERY DAY FOR 16 DAYS QUEtiapine Yes quetiapine U nivers 300 mg - 300 mg ity of tablet 22:28: tablet [place] 42 TAKE 1 Medical TABLET BY Branch MOUTH EVERY EVENING 1 TO 1.5 HOUR PRIOR TO BEDTIME WITH 300 CALORIES SNACK QUEtiapine Yes quetiapine U nivers 200 mg - 200 mg ity of tablet 22:28: tablet [place] 42 TAKE 1 Medical TABLET BY Branch MOUTH TWICE DAILY pantoprazol Yes pantoprazo Univers e 40 mg EC 8- le 40 mg ity o f tablet 22:28: tablet,del [place] 42 ayed Medical release Branch TAKE 1 TABLET BY MOUTH EVERY DAY montelukast Yes montelukas Univers 10 mg 8- t 10 mg ity of tablet 22:28: tablet [place] 42 TAKE 1 Medical TABLET BY Branch MOUTH EVERY DAY IN THE EVENING methocarbam Yes methocarba Univers oL 500 mg 8-19 mol 500 mg ity of tablet 22:28: tablet [place] 42 TAKE 1 Medical TABLET BY Branch MOUTH THREE TIMES DAILY FOR 5 DAYS meloxicam Yes meloxicam Uni vers 15 mg 8-19 15 mg ity of tablet 22:28: tablet [place] 42 TAKE 1 Medical TABLET BY Branch MOUTH EVERY DAY losartan 50 Yes losartan Un yan mg tablet 8-19 50 mg ity of 22:28: tablet [place] 42 TAKE 1 Medical TABLET BY Branch MOUTH TWICE DAILY levothyroxi Yes levothyrox Univers ne 175 mcg 8-19 ine 175 ity of tablet 22:28: mcg tablet [place] 42 TAKE 1 Medical TABLET BY Branch MOUTH EVERY MORNING gabapentin Yes gabapentin U nivers 300 mg 8-19 300 mg ity of capsule 22:28: capsule [place] [address] TAKE 1 Medical CAPSULE BY Branch MOUTH AT BEDTIME DULoxetine Yes duloxetine U nivers 60 mg 8-19 60 mg ity of capsule 22:28: capsule,[place] 42 layed Medical release Branch TAKE 1 CAPSULE BY MOUTH TWICE DAILY divalproex Yes divalproex U nivers 500 mg EC 8-19 500 mg ity of tablet 22:28: tablet,del [place] 42 ayed Medical release [place] TAKE 1 TABLET BY MOUTH DAILY amLODIPine Yes amlodipine U nivers 5 mg tablet 8-19 5 mg ity of 22:28: tablet [place] 42 TAKE 1 Medical TABLET BY Branch [...] ity o f mg tablet 22:28: at [place] 42 bedtime. Medical Branch acetaminoph 2022-0 Yes acetaminop Univers en-codeine 8- hen 300 ity of 300-30 mg 22:28: mg-codeine [place] tablet 42 30 mg Medical tablet Branch TAKE 1 TABLET BY MOUTH TWICE DAILY NEEDED traZODone Yes trazodone Uni vers 150 mg 8- 150 mg ity of tablet 22:28: tablet [place] 42 TAKE 1 TO Medical 2 TABLETS Branch BY MOUTH EVERY NIGHT AT BEDTIME NEEDED FOR INSOMNIA traMADoL 50 Yes tramadol Un yan mg tablet 03-24 50 mg ity of 22:28: tablet [place] 42 TAKE 1 Medical TABLET BY Branch MOUTH THREE TIMES DAILY sucralfate Yes sucralfate U nivers 1 gram 03-24 1 gram ity of tablet 22:28: tablet [place] 42 TAKE 1 Medical TABLET BY Branch MOUTH BEFORE MEALS AND AT BEDTIME spironolact Yes spironolac Univers one 25 mg - tone 25 mg ity of tablet 22:28: tablet [place] 42 TAKE 1 Medical TABLET BY Branch MOUTH EVERY DAY SITagliptin Yes Januvia Uni vers (JANUVIA) 03-24 100 mg ity of 100 mg 22:28: tablet [place] tablet 42 TAKE 1 Medical TABLET BY Branch MOUTH EVERY DAY FOR 16 DAYS QUEtiapine Yes quetiapine U nivers 300 mg 03-24 300 mg ity of tablet 22:28: tablet [place] 42 TAKE 1 Medical TABLET BY Branch MOUTH EVERY EVENING 1 TO 1.5 HOUR PRIOR TO BEDTIME WITH 300 CALORIES SNACK QUEtiapine Yes quetiapine U nivers 200 mg 03-24 200 mg ity of tablet 22:28: tablet [place] 42 TAKE 1 Medical TABLET BY Branch MOUTH TWICE DAILY pantoprazol Yes pantoprazo Univers e 40 mg EC 03-24 le 40 mg ity o f tablet 22:28: tablet,del [place] 42 ayed Medical release Branch TAKE 1 TABLET BY MOUTH EVERY DAY montelukast Yes montelukas Univers 10 mg 8- t 10 mg ity of tablet 22:28: tablet [place] 42 TAKE 1 Medical TABLET BY Branch MOUTH EVERY DAY IN THE EVENING methocarbam Yes methocarba Univers oL 500 mg 03-24 mol 500 mg ity of tablet 22:28: tablet [place] 42 TAKE 1 Medical TABLET BY Branch MOUTH THREE TIMES DAILY FOR 5 DAYS meloxicam Yes meloxicam Uni vers 15 mg 8-19 15 mg ity of tablet 22:28: tablet [place] 42 TAKE 1 Medical TABLET BY Branch MOUTH EVERY DAY losartan 50 Yes losartan Un yan mg tablet 8-19 50 mg ity of 22:28: tablet [place] 42 TAKE 1 Medical TABLET BY Branch MOUTH TWICE DAILY levothyroxi Yes levothyrox Univers ne 175 mcg 8- ine 175 ity of tablet 22:28: mcg tablet [place] 42 TAKE 1 Medical TABLET BY Branch MOUTH EVERY MORNING gabapentin Yes gabapentin U nivers 300 mg 8- 300 mg ity of capsule 22:28: capsule [place] [address] TAKE 1 Medical CAPSULE BY Branch MOUTH AT BEDTIME DULoxetine Yes duloxetine U nivers 60 mg 8- 60 mg ity of capsule 22:28: capsule,[place] layed Medical release Branch TAKE 1 CAPSULE BY MOUTH TWICE DAILY divalproex Yes divalproex U nivers 500 mg EC 8-19 500 mg ity of tablet 22:28: tablet,del [place] 42 ayed Medical release Branch TAKE 1 TABLET BY MOUTH DAILY amLODIPine Yes amlodipine U nivers 5 mg tablet 8- 5 mg ity of 22:28: tablet [place] [address] TAKE 1 Medical TABLET BY Branch MOUTH [...] ity o f mg tablet 22:28: at [place] [address] bedtime. Medical Branch acetaminoph Yes acetaminop Univers en-codeine 8-19 hen 300 ity of 300-30 mg 22:28: mg-codeine [place] tablet 42 30 mg Medical tablet Branch TAKE 1 TABLET BY MOUTH TWICE DAILY NEEDED traZODone Yes trazodone Uni vers 150 mg 8- 150 mg ity of tablet 22:28: tablet [place] 42 TAKE 1 TO Medical 2 TABLETS Branch BY MOUTH EVERY NIGHT AT BEDTIME NEEDED FOR INSOMNIA traMADoL 50 Yes tramadol Un yan mg tablet - 50 mg ity of 22:28: tablet [place] 42 TAKE 1 Medical TABLET BY Branch MOUTH THREE TIMES DAILY sucralfate Yes sucralfate U nivers 1 gram - 1 gram ity of tablet 22:28: tablet [place] 42 TAKE 1 Medical TABLET BY Branch MOUTH BEFORE MEALS AND AT BEDTIME spironolact Yes spironolac Univers one 25 mg 8- tone 25 mg ity of tablet 22:28: tablet [place] 42 TAKE 1 Medical TABLET BY Branch MOUTH EVERY DAY SITagliptin Yes Januvia Uni vers (JANUVIA) 8 100 mg ity of 100 mg 22:28: tablet [place] tablet 42 TAKE 1 Medical TABLET BY Branch MOUTH EVERY DAY FOR 16 DAYS QUEtiapine Yes quetiapine U nivers 300 mg 8- 300 mg ity of tablet 22:28: tablet [place] 42 TAKE 1 Medical TABLET BY Branch MOUTH EVERY EVENING 1 TO 1.5 HOUR PRIOR TO BEDTIME WITH 300 CALORIES SNACK QUEtiapine Yes quetiapine U nivers 200 mg - 200 mg ity of tablet 22:28: tablet [place] 42 TAKE 1 Medical TABLET BY Branch MOUTH TWICE DAILY pantoprazol Yes pantoprazo Univers e 40 mg EC 8 le 40 mg ity o f tablet 22:28: tablet,del [place] 42 ayed Medical release Branch TAKE 1 TABLET BY MOUTH EVERY DAY montelukast Yes montelukas Univers 10 mg 8- t 10 mg ity of tablet 22:28: tablet [place] 42 TAKE 1 Medical TABLET BY Branch MOUTH EVERY DAY IN THE EVENING methocarbam Yes methocarba Univers oL 500 mg - mol 500 mg ity of tablet 22:28: tablet [place] 42 TAKE 1 Medical TABLET BY Branch MOUTH THREE TIMES DAILY FOR 5 DAYS meloxicam Yes meloxicam Uni vers 15 mg 8- 15 mg ity of tablet 22:28: tablet [place] 42 TAKE 1 Medical TABLET BY Branch MOUTH EVERY DAY losartan 50 Yes losartan Un yan mg tablet 8-19 50 mg ity of 22:28: tablet [place] 42 TAKE 1 Medical TABLET BY Branch MOUTH TWICE DAILY levothyroxi Yes levothyrox Univers ne 175 mcg 8-19 ine 175 ity of tablet 22:28: mcg tablet [place] 42 TAKE 1 Medical TABLET BY Branch MOUTH EVERY MORNING gabapentin Yes gabapentin U nivers 300 mg 8-19 300 mg ity of capsule 22:28: capsule [place] 42 TAKE 1 Medical CAPSULE BY Branch MOUTH AT BEDTIME DULoxetine Yes duloxetine U nivers 60 mg 8-19 60 mg ity of capsule 22:28: capsule,[place] layed Medical release Branch TAKE 1 CAPSULE BY MOUTH TWICE DAILY divalproex Yes divalproex U nivers 500 mg EC 8-19 500 mg ity of tablet 22:28: tablet,del [place] 42 ayed Medical release Branch TAKE 1 TABLET BY MOUTH DAILY amLODIPine Yes amlodipine U nivers 5 mg tablet - 5 mg ity of 22:28: tablet [place] 42 TAKE 1 Medical TABLET BY Branch MOUTH TWICE DAILY acetaminoph Yes 1{tbl} Take 1 Un ayn en-codeine 8-19 tablet by ity of (TYLENOL-CO [...] ity o f mg tablet 22:28: at [place] [address] bedtime. Medical Branch acetaminoph Yes acetaminop [facility] en-codeine 8-19 hen 300 ity of 300-30 mg 22:28: mg-codeine [place] tablet 42 30 mg Medical tablet Branch TAKE 1 TABLET BY MOUTH TWICE DAILY NEEDED traZODone Yes trazodone Uni vers 150 mg 8-19 150 mg ity of tablet 22:28: tablet [place] 42 TAKE 1 TO Medical 2 TABLETS Branch BY MOUTH EVERY NIGHT AT BEDTIME NEEDED FOR INSOMNIA traMADoL 50 Yes tramadol Un yan mg tablet 8- 50 mg ity of 22:28: tablet [place] 42 TAKE 1 Medical TABLET BY Branch MOUTH THREE TIMES DAILY sucralfate Yes sucralfate U nivers 1 gram - 1 gram ity of tablet 22:28: tablet [place] 42 TAKE 1 Medical TABLET BY Branch MOUTH BEFORE MEALS AND AT BEDTIME spironolact Yes spironolac Univers one 25 mg - tone 25 mg ity of tablet 22:28: tablet [place] 42 TAKE 1 Medical TABLET BY Branch MOUTH EVERY DAY SITagliptin Yes Januvia Uni vers (JANUVIA) 8- 100 mg ity of 100 mg 22:28: tablet [place] tablet 42 TAKE 1 Medical TABLET BY Branch MOUTH EVERY DAY FOR 16 DAYS QUEtiapine Yes quetiapine U nivers 300 mg 03-24 300 mg ity of tablet 22:28: tablet [place] 42 TAKE 1 Medical TABLET BY Branch MOUTH EVERY EVENING 1 TO 1.5 HOUR PRIOR TO BEDTIME WITH 300 CALORIES SNACK QUEtiapine Yes quetiapine U nivers 200 mg 03-24 200 mg ity of tablet 22:28: tablet [place] 42 TAKE 1 Medical TABLET BY Branch MOUTH TWICE DAILY pantoprazol Yes pantoprazo Univers e 40 mg EC 03-24 le 40 mg ity o f tablet 22:28: tablet,del [place] 42 ayed Medical release Branch TAKE 1 TABLET BY MOUTH EVERY DAY montelukast Yes montelukas Univers 10 mg 03-24 t 10 mg ity of tablet 22:28: tablet [place] 42 TAKE 1 Medical TABLET BY Branch MOUTH EVERY DAY IN THE EVENING methocarbam Yes methocarba [facility] oL 500 mg 03-24 mol 500 mg ity of tablet 22:28: tablet [place] 42 TAKE 1 Medical TABLET BY Branch MOUTH THREE TIMES DAILY FOR 5 DAYS meloxicam Yes meloxicam Uni vers 15 mg 03-24 15 mg ity of tablet 22:28: tablet [place] 42 TAKE 1 Medical TABLET BY Branch MOUTH EVERY DAY losartan 50 Yes losartan Un yan mg tablet 03-24 50 mg ity of 22:28: tablet [place] 42 TAKE 1 Medical TABLET BY Branch [...] 500 mg ity of tablet 22:28: tablet,del [place] 42 ayed Medical release Branch TAKE 1 TABLET BY MOUTH DAILY amLODIPine Yes amlodipine U nivers 5 mg tablet 8- 5 mg ity of 22:28: tablet [place] 42 TAKE 1 Medical TABLET BY Branch [...] ity o f mg tablet 22:28: at [place] [address] bedtime. Medical Branch acetaminoph Yes acetaminop [facility] en-codeine 8-19 hen 300 ity of 300-30 mg 22:28: mg-codeine [place] tablet 42 30 mg Medical tablet Branch TAKE 1 TABLET BY MOUTH TWICE DAILY NEEDED traZODone Yes trazodone Uni vers 150 mg 8-19 150 mg ity of tablet 22:28: tablet [place] 42 TAKE 1 TO Medical 2 TABLETS Branch BY MOUTH EVERY NIGHT AT BEDTIME NEEDED FOR INSOMNIA traMADoL 50 Yes tramadol Un yan mg tablet 8-19 50 mg ity of 22:28: tablet [place] 42 TAKE 1 Medical TABLET BY Branch MOUTH THREE TIMES DAILY sucralfate Yes sucralfate U nivers 1 gram 03-24 1 gram ity of tablet 22:28: tablet [place] 42 TAKE 1 Medical TABLET BY Branch MOUTH BEFORE MEALS AND AT BEDTIME spironolact Yes spironolac Univers one 25 mg 03-24 tone 25 mg ity of tablet 22:28: tablet [place] 42 TAKE 1 Medical TABLET BY Branch MOUTH EVERY DAY SITagliptin Yes Januvia Uni vers (JANUVIA) 03-24 100 mg ity of 100 mg 22:28: tablet [place] tablet 42 TAKE 1 Medical TABLET BY Branch MOUTH EVERY DAY FOR 16 DAYS QUEtiapine Yes quetiapine U nivers 300 mg 03-24 300 mg ity of tablet 22:28: tablet [place] 42 TAKE 1 Medical TABLET BY Branch MOUTH EVERY EVENING 1 TO 1.5 HOUR PRIOR TO BEDTIME WITH 300 CALORIES SNACK QUEtiapine Yes quetiapine U nivers 200 mg 03-24 200 mg ity of tablet 22:28: tablet [place] 42 TAKE 1 Medical TABLET BY Branch MOUTH TWICE DAILY pantoprazol Yes pantoprazo Univers e 40 mg EC 03-24 le 40 mg ity o f tablet 22:28: tablet,del [place] 42 ayed Medical release Branch TAKE 1 TABLET BY MOUTH EVERY DAY montelukast Yes montelukas Univers 10 mg 03-24 t 10 mg ity of tablet 22:28: tablet [place] 42 TAKE 1 Medical TABLET BY Branch MOUTH EVERY DAY IN THE EVENING methocarbam Yes methocarba [facility] oL 500 mg 03-24 mol 500 mg ity of tablet 22:28: tablet [place] 42 TAKE 1 Medical TABLET BY Branch MOUTH THREE TIMES DAILY FOR 5 DAYS meloxicam Yes meloxicam Uni vers 15 mg 03-24 15 mg ity of tablet 22:28: tablet [place] 42 TAKE 1 Medical TABLET BY Branch MOUTH EVERY DAY losartan 50 Yes losartan Un yan mg tablet 03-24 50 mg ity of 22:28: tablet [place] 42 TAKE 1 Medical TABLET BY Branch MOUTH TWICE DAILY levothyroxi Yes levothyrox Univers ne 175 mcg 03-24 ine 175 ity of tablet 22:28: mcg tablet [place] 42 TAKE 1 Medical TABLET BY Branch MOUTH EVERY MORNING gabapentin Yes gabapentin U nivers 300 mg 8-19 300 mg ity of capsule 22:28: capsule [place] 42 TAKE 1 Medical CAPSULE BY Branch MOUTH AT BEDTIME DULoxetine Yes duloxetine U nivers 60 mg 8-19 60 mg ity of capsule 22:28: capsule,[place] 42 layed Medical release Branch TAKE 1 CAPSULE BY MOUTH TWICE DAILY divalproex Yes divalproex U nivers 500 mg EC 8-19 500 mg ity of tablet 22:28: tablet,del [place] 42 ayed Medical release Branch TAKE 1 TABLET BY MOUTH DAILY amLODIPine Yes amlodipine U nivers 5 mg tablet 8-19 5 mg ity of 22:28: tablet [place] 42 TAKE 1 Medical TABLET BY Branch [...] ity o f mg tablet 22:28: at [place] [address] bedtime. Medical Branch acetaminoph Yes acetaminop [facility] en-codeine 8-19 hen 300 ity of 300-30 mg 22:28: mg-codeine [place] tablet 42 30 mg Medical tablet Branch TAKE 1 TABLET BY MOUTH TWICE DAILY NEEDED traZODone Yes trazodone Uni vers 150 mg 8-19 150 mg ity of tablet 22:28: tablet [place] 42 TAKE 1 TO Medical 2 TABLETS Branch BY MOUTH EVERY NIGHT AT BEDTIME NEEDED FOR INSOMNIA traMADoL 50 Yes tramadol Un yan mg tablet 8-19 50 mg ity of 22:28: tablet [place] 42 TAKE 1 Medical TABLET BY Branch MOUTH THREE TIMES DAILY sucralfate Yes sucralfate U nivers 1 gram 8-19 1 gram ity of tablet 22:28: tablet [place] 42 TAKE 1 Medical TABLET BY Branch MOUTH BEFORE MEALS AND AT BEDTIME spironolact Yes spironolac Univers one 25 mg 8- tone 25 mg ity of tablet 22:28: tablet [place] 42 TAKE 1 Medical TABLET BY Branch MOUTH EVERY DAY SITagliptin Yes Januvia Uni vers (JANUVIA) 8- 100 mg ity of 100 mg 22:28: tablet [place] tablet 42 TAKE 1 Medical TABLET BY Branch MOUTH EVERY DAY FOR 16 DAYS QUEtiapine Yes quetiapine U nivers 300 mg 8 300 mg ity of tablet 22:28: tablet [place] 42 TAKE 1 Medical TABLET BY Branch MOUTH EVERY EVENING 1 TO 1.5 HOUR PRIOR TO BEDTIME WITH 300 CALORIES SNACK QUEtiapine Yes quetiapine U nivers 200 mg 8 200 mg ity of tablet 22:28: tablet [place] 42 TAKE 1 Medical TABLET BY Branch MOUTH TWICE DAILY pantoprazol Yes pantoprazo Univers e 40 mg EC 03-24 le 40 mg ity o f tablet 22:28: tablet,del [place] 42 ayed Medical release Branch TAKE 1 TABLET BY MOUTH EVERY DAY montelukast Yes montelukas Univers 10 mg 03-24 t 10 mg ity of tablet 22:28: tablet [place] 42 TAKE 1 Medical TABLET BY Branch MOUTH EVERY DAY IN THE EVENING methocarbam Yes methocarba [facility] oL 500 mg 03-24 mol 500 mg ity of tablet 22:28: tablet [place] 42 TAKE 1 Medical TABLET BY Branch MOUTH THREE TIMES DAILY FOR 5 DAYS meloxicam Yes meloxicam Uni vers 15 mg 03-24 15 mg ity of tablet 22:28: tablet [place] 42 TAKE 1 Medical TABLET BY Branch MOUTH EVERY DAY losartan 50 Yes losartan Un yan mg tablet 03-24 50 mg ity of 22:28: tablet [place] 42 TAKE 1 Medical TABLET BY Branch MOUTH TWICE DAILY levothyroxi Yes levothyrox Univers ne 175 mcg 03-24 ine 175 ity of tablet 22:28: mcg tablet [place] 42 TAKE 1 Medical TABLET BY Branch MOUTH EVERY MORNING gabapentin Yes gabapentin U nivers 300 mg 8- 300 mg ity of capsule 22:28: capsule [place] 42 TAKE 1 Medical CAPSULE BY Branch MOUTH AT BEDTIME DULoxetine Yes duloxetine U nivers 60 mg 8-19 60 mg ity of capsule 22:28: capsule[place] 42 layed Medical release Branch TAKE 1 CAPSULE BY MOUTH TWICE DAILY divalproex Yes divalproex U nivers 500 mg EC 8-19 500 mg ity of tablet 22:28: tablet,del [place] 42 ayed Medical release Branch TAKE 1 TABLET BY MOUTH DAILY amLODIPine Yes amlodipine U nivers 5 mg tablet 8-19 5 mg ity of 22:28: tablet [place] 42 TAKE 1 Medical TABLET BY Branch [...] ity o f mg tablet 22:28: at [place] [address] bedtime. Medical Branch acetaminoph Yes acetaminop [facility] en-codeine 8-19 hen 300 ity of 300-30 mg 22:28: mg-codeine [place] tablet 42 30 mg Medical tablet Branch TAKE 1 TABLET BY MOUTH TWICE DAILY NEEDED traZODone Yes trazodone Uni vers 150 mg 8-19 150 mg ity of tablet 22:28: tablet [place] [address] TAKE 1 TO Medical 2 TABLETS Branch BY MOUTH EVERY NIGHT AT BEDTIME NEEDED FOR INSOMNIA traMADoL 50 Yes tramadol Un yan mg tablet 8-19 50 mg ity of 22:28: tablet [place] 42 TAKE 1 Medical TABLET BY Branch MOUTH THREE TIMES DAILY sucralfate Yes sucralfate U nivers 1 gram 8-19 1 gram ity of tablet 22:28: tablet [place] 42 TAKE 1 Medical TABLET BY Branch MOUTH BEFORE MEALS AND AT BEDTIME spironolact Yes spironolac [facility] one 25 mg 8-19 tone 25 mg ity of tablet 22:28: tablet [place] 42 TAKE 1 Medical TABLET BY Branch MOUTH EVERY DAY SITagliptin Yes Januvia Uni vers (JANUVIA) 8- 100 mg ity of 100 mg 22:28: tablet [place] tablet 42 TAKE 1 Medical TABLET BY Branch MOUTH EVERY DAY FOR 16 DAYS QUEtiapine Yes quetiapine U nivers 300 mg 8 300 mg ity of tablet 22:28: tablet [place] 42 TAKE 1 Medical TABLET BY Branch MOUTH EVERY EVENING 1 TO 1.5 HOUR PRIOR TO BEDTIME WITH 300 CALORIES SNACK QUEtiapine Yes quetiapine U nivers 200 mg 03-24 200 mg ity of tablet 22:28: tablet [place] 42 TAKE 1 Medical TABLET BY Branch MOUTH TWICE DAILY pantoprazol Yes pantoprazo Univers e 40 mg EC 03-24 le 40 mg ity o f tablet 22:28: tablet,del [place] 42 ayed Medical release [place] TAKE 1 TABLET BY MOUTH EVERY DAY montelukast Yes montelukas Univers 10 mg 03-24 t 10 mg ity of tablet 22:28: tablet [place] 42 TAKE 1 Medical TABLET BY Branch MOUTH EVERY DAY IN THE EVENING methocarbam Yes methocarba [facility] oL 500 mg 03-24 mol 500 mg ity of tablet 22:28: tablet [place] 42 TAKE 1 Medical TABLET BY Branch MOUTH THREE TIMES DAILY FOR 5 DAYS meloxicam Yes meloxicam Uni vers 15 mg 03-24 15 mg ity of tablet 22:28: tablet [place] 42 TAKE 1 Medical TABLET BY Branch MOUTH EVERY DAY losartan 50 Yes losartan Un yan mg tablet 03-24 50 mg ity of 22:28: tablet [place] 42 TAKE 1 Medical TABLET BY Branch MOUTH TWICE DAILY levothyroxi Yes levothyrox [facility] ne 175 mcg 03-24 ine 175 ity of tablet 22:28: mcg tablet [place] 42 TAKE 1 Medical TABLET BY Branch MOUTH EVERY MORNING gabapentin Yes gabapentin U nivers 300 mg 03-24 300 mg ity of capsule 22:28: capsule [place] 42 TAKE 1 Medical CAPSULE BY Branch MOUTH AT BEDTIME DULoxetine Yes duloxetine U nivers 60 mg 8 60 mg ity of capsule 22:28: capsule,[place] [facility] layed Medical release [place] TAKE 1 CAPSULE BY MOUTH TWICE DAILY divalproex Yes divalproex U nivers 500 mg EC 8-19 500 mg ity of tablet 22:28: tablet,del [place] 42 ayed Medical release Branch TAKE 1 TABLET BY MOUTH DAILY amLODIPine Yes amlodipine U nivers 5 mg tablet 8 5 mg ity of 22:28: tablet [place] 42 TAKE 1 Medical TABLET BY Branch [...] ity o f mg tablet 22:28: at [place] [address] bedtime. Medical Branch acetaminoph Yes acetaminop [facility] en-codeine 8- hen 300 ity of 300-30 mg 22:28: mg-codeine [place] tablet 42 30 mg Medical tablet Branch TAKE 1 TABLET BY MOUTH TWICE DAILY NEEDED traZODone Yes trazodone Uni vers 150 mg 8- 150 mg ity of tablet 22:28: tablet [place] 42 TAKE 1 TO Medical 2 TABLETS Branch BY MOUTH EVERY NIGHT AT BEDTIME NEEDED FOR INSOMNIA traMADoL 50 Yes tramadol Un yan mg tablet 03-24 50 mg ity of 22:28: tablet [place] 42 TAKE 1 Medical TABLET BY Branch MOUTH THREE TIMES DAILY sucralfate Yes sucralfate U nivers 1 gram - 1 gram ity of tablet 22:28: tablet [place] 42 TAKE 1 Medical TABLET BY Branch MOUTH BEFORE MEALS AND AT BEDTIME spironolact Yes spironolac [facility] one 25 mg 8- tone 25 mg ity of tablet 22:28: tablet [place] 42 TAKE 1 Medical TABLET BY Branch MOUTH EVERY DAY SITagliptin Yes Januvia Uni vers (JANUVIA) 8- 100 mg ity of 100 mg 22:28: tablet [place] tablet 42 TAKE 1 Medical TABLET BY Branch MOUTH EVERY DAY FOR 16 DAYS QUEtiapine Yes quetiapine U nivers 300 mg 03-24 300 mg ity of tablet 22:28: tablet [place] 42 TAKE 1 Medical TABLET BY Branch MOUTH EVERY EVENING 1 TO 1.5 HOUR PRIOR TO BEDTIME WITH 300 CALORIES SNACK QUEtiapine Yes quetiapine U nivers 200 mg 03-24 200 mg ity of tablet 22:28: tablet [place] 42 TAKE 1 Medical TABLET BY Branch MOUTH TWICE DAILY pantoprazol Yes pantoprazo Univers e 40 mg EC 03-24 le 40 mg ity o f tablet 22:28: tabletlow [place] 42 ayed Medical release [place] TAKE 1 TABLET BY MOUTH EVERY DAY montelukast Yes montelukas Univers 10 mg 03-24 t 10 mg ity of tablet 22:28: tablet [place] 42 TAKE 1 Medical TABLET BY Branch MOUTH EVERY DAY IN THE EVENING methocarbam Yes methocarba [facility] oL 500 mg 03-24 mol 500 mg ity of tablet 22:28: tablet [place] 42 TAKE 1 Medical TABLET BY Branch MOUTH THREE TIMES DAILY FOR 5 DAYS meloxicam Yes meloxicam Uni vers 15 mg 03-24 15 mg ity of tablet 22:28: tablet [place] 42 TAKE 1 Medical TABLET BY Branch MOUTH EVERY DAY losartan 50 Yes losartan Un yan mg tablet 03-24 50 mg ity of 22:28: tablet [place] 42 TAKE 1 Medical TABLET BY Branch MOUTH TWICE DAILY levothyroxi Yes levothyrox [facility] ne 175 mcg 03-24 ine 175 ity of tablet 22:28: mcg tablet [place] 42 TAKE 1 Medical TABLET BY Branch MOUTH EVERY MORNING gabapentin Yes gabapentin U nivers 300 mg 03-24 300 mg ity of capsule 22:28: capsule [place] 42 TAKE 1 Medical CAPSULE BY Branch MOUTH AT BEDTIME DULoxetine Yes duloxetine U nivers 60 mg 03-24 60 mg ity of capsule 22:28: [place] 42 layed Medical release [place] TAKE 1 CAPSULE BY MOUTH TWICE DAILY divalproex Yes divalproex U nivers 500 mg EC 03-24 500 mg ity of tablet 22:28: tabletlow [place] 42 ayed Medical release [place] TAKE 1 TABLET BY MOUTH DAILY amLODIPine Yes amlodipine U nivers 5 mg tablet 8-19 5 mg ity of 22:28: tablet [place] 42 TAKE 1 Medical TABLET BY Branch [...] ity o f mg tablet 22:28: at [place] [address] bedtime. Medical Branch acetaminoph Yes acetaminop [facility] en-codeine 8-19 hen 300 ity of 300-30 mg 22:28: mg-codeine [place] tablet 42 30 mg Medical tablet Branch TAKE 1 TABLET BY MOUTH TWICE DAILY NEEDED traZODone Yes trazodone Uni vers 150 mg 8- 150 mg ity of tablet 22:28: tablet [place] 42 TAKE 1 TO Medical 2 TABLETS Branch BY MOUTH EVERY NIGHT AT BEDTIME NEEDED FOR INSOMNIA traMADoL 50 Yes tramadol Un yan mg tablet - 50 mg ity of 22:28: tablet [place] 42 TAKE 1 Medical TABLET BY Branch MOUTH THREE TIMES DAILY sucralfate Yes sucralfate U nivers 1 gram - 1 gram ity of tablet 22:28: tablet [place] 42 TAKE 1 Medical TABLET BY Branch MOUTH BEFORE MEALS AND AT BEDTIME spironolact Yes spironolac [facility] one 25 mg 8- tone 25 mg ity of tablet 22:28: tablet [place] 42 TAKE 1 Medical TABLET BY Branch MOUTH EVERY DAY SITagliptin Yes Januvia Uni vers (JANUVIA) 8- 100 mg ity of 100 mg 22:28: tablet [place] tablet 42 TAKE 1 Medical TABLET BY Branch MOUTH EVERY DAY FOR 16 DAYS QUEtiapine Yes quetiapine U nivers 300 mg 8-19 300 mg ity of tablet 22:28: tablet [place] 42 TAKE 1 Medical TABLET BY Branch MOUTH EVERY EVENING 1 TO 1.5 HOUR PRIOR TO BEDTIME WITH 300 CALORIES SNACK QUEtiapine Yes quetiapine U nivers 200 mg 8 200 mg ity of tablet 22:28: tablet [place] 42 TAKE 1 Medical TABLET BY Branch MOUTH TWICE DAILY pantoprazol Yes pantoprazo Univers e 40 mg EC 8 le 40 mg ity o f tablet 22:28: tablet,del [place] 42 ayed Medical release [place] TAKE 1 TABLET BY MOUTH EVERY DAY montelukast Yes montelukas [facility] 10 mg 03-24 t 10 mg ity of tablet 22:28: tablet [place] 42 TAKE 1 Medical TABLET BY Branch MOUTH EVERY DAY IN THE EVENING methocarbam Yes methocarba [facility] oL 500 mg 03-24 mol 500 mg ity of tablet 22:28: tablet [place] 42 TAKE 1 Medical TABLET BY Branch MOUTH THREE TIMES DAILY FOR 5 DAYS meloxicam Yes meloxicam Uni vers 15 mg 03-24 15 mg ity of tablet 22:28: tablet [place] 42 TAKE 1 Medical TABLET BY Branch MOUTH EVERY DAY losartan 50 Yes losartan Un yan mg tablet 03-24 50 mg ity of 22:28: tablet [place] 42 TAKE 1 Medical TABLET BY Branch MOUTH TWICE DAILY levothyroxi Yes levothyrox [facility] ne 175 mcg 03-24 ine 175 ity of tablet 22:28: mcg tablet [place] 42 TAKE 1 Medical TABLET BY Branch MOUTH EVERY MORNING gabapentin Yes gabapentin U nivers 300 mg 03-24 300 mg ity of capsule 22:28: capsule [place] 42 TAKE 1 Medical CAPSULE BY Branch MOUTH AT BEDTIME DULoxetine Yes duloxetine U nivers 60 mg 03-24 60 mg ity of capsule 22:28: capsule,[place] 42 layed Medical release [place] TAKE 1 CAPSULE BY MOUTH TWICE DAILY divalproex Yes divalproex U nivers 500 mg EC 03-24 500 mg ity of tablet 22:28: tablet,low [place] 42 ayed Medical release [place] TAKE 1 TABLET BY MOUTH DAILY amLODIPine Yes amlodipine U nivers 5 mg tablet 03-24 5 mg ity of 22:28: tablet [place] 42 TAKE 1 Medical TABLET BY Branch [...] ity o f mg tablet 22:28: at [place] 42 bedtime. Medical Branch acetaminoph Yes acetaminop [facility] en-codeine 8-19 hen 300 ity of 300-30 mg 22:28: mg-codeine [place] tablet 42 30 mg Medical tablet Branch TAKE 1 TABLET BY MOUTH TWICE DAILY NEEDED traZODone Yes trazodone Uni vers 150 mg 8-19 150 mg ity of tablet 22:28: tablet [place] 42 TAKE 1 TO Medical 2 TABLETS Branch BY MOUTH EVERY NIGHT AT BEDTIME NEEDED FOR INSOMNIA traMADoL 50 Yes tramadol Un yan mg tablet 8-19 50 mg ity of 22:28: tablet [place] 42 TAKE 1 Medical TABLET BY Branch MOUTH THREE TIMES DAILY sucralfate Yes sucralfate U nivers 1 gram 8-19 1 gram ity of tablet 22:28: tablet [place] 42 TAKE 1 Medical TABLET BY Branch MOUTH BEFORE MEALS AND AT BEDTIME spironolact Yes spironolac [facility] one 25 mg 8-19 tone 25 mg ity of tablet 22:28: tablet [place] 42 TAKE 1 Medical TABLET BY Branch MOUTH EVERY DAY SITagliptin Yes Januvia Uni vers (JANUVIA) 8-19 100 mg ity of 100 mg 22:28: tablet [place] tablet 42 TAKE 1 Medical TABLET BY Branch MOUTH EVERY DAY FOR 16 DAYS QUEtiapine Yes quetiapine U nivers 300 mg 8-19 300 mg ity of tablet 22:28: tablet [place] 42 TAKE 1 Medical TABLET BY Branch MOUTH EVERY EVENING 1 TO 1.5 HOUR PRIOR TO BEDTIME WITH 300 CALORIES SNACK QUEtiapine Yes quetiapine U nivers 200 mg 8-19 200 mg ity of tablet 22:28: tablet [place] 42 TAKE 1 Medical TABLET BY Branch MOUTH TWICE DAILY pantoprazol Yes pantoprazo Univers e 40 mg EC 8 le 40 mg ity o f tablet 22:28: tablet,del [place] 42 ayed Medical release Branch TAKE 1 TABLET BY MOUTH EVERY DAY montelukast Yes montelukas [facility] 10 mg 8- t 10 mg ity of tablet 22:28: tablet [place] 42 TAKE 1 Medical TABLET BY Branch MOUTH EVERY DAY IN THE EVENING methocarbam Yes methocarba Univers oL 500 mg 8 mol 500 mg ity of tablet 22:28: tablet [place] 42 TAKE 1 Medical TABLET BY Branch MOUTH THREE TIMES DAILY FOR 5 DAYS meloxicam Yes meloxicam Uni vers 15 mg 8 15 mg ity of tablet 22:28: tablet [place] 42 TAKE 1 Medical TABLET BY Branch MOUTH EVERY DAY losartan 50 Yes losartan Un yan mg tablet 03-24 50 mg ity of 22:28: tablet [place] 42 TAKE 1 Medical TABLET BY Branch MOUTH TWICE DAILY levothyroxi Yes levothyrox Univers ne 175 mcg - ine 175 ity of tablet 22:28: mcg tablet [place] 42 TAKE 1 Medical TABLET BY Branch MOUTH EVERY MORNING gabapentin Yes gabapentin U nivers 300 mg 8 300 mg ity of capsule 22:28: capsule [place] 42 TAKE 1 Medical CAPSULE BY Branch MOUTH AT BEDTIME DULoxetine Yes duloxetine U nivers 60 mg 8 60 mg ity of capsule 22:28: capsule,[place] 42 layed Medical release [place] TAKE 1 CAPSULE BY MOUTH TWICE DAILY divalproex Yes divalproex U nivers 500 mg EC 8 500 mg ity of tablet 22:28: tablet,del [place] 42 ayed Medical release [place] TAKE 1 TABLET BY MOUTH DAILY amLODIPine Yes amlodipine U nivers 5 mg tablet 03-24 5 mg ity of 22:28: tablet [place] 42 TAKE 1 Medical TABLET BY Branch [...] ity o f mg tablet 22:28: at [place] [address] bedtime. Medical Branch acetaminoph Yes acetaminop [facility] en-codeine 8- hen 300 ity of 300-30 mg 22:28: mg-codeine [place] tablet 42 30 mg Medical tablet Branch TAKE 1 TABLET BY MOUTH TWICE DAILY NEEDED traZODone Yes trazodone Uni vers 150 mg 8- 150 mg ity of tablet 22:28: tablet [place] 42 TAKE 1 TO Medical 2 TABLETS Branch BY MOUTH EVERY NIGHT AT BEDTIME NEEDED FOR INSOMNIA traMADoL 50 Yes tramadol Un yan mg tablet 03-24 50 mg ity of 22:28: tablet [place] 42 TAKE 1 Medical TABLET BY Branch MOUTH THREE TIMES DAILY sucralfate Yes sucralfate U nivers 1 gram - 1 gram ity of tablet 22:28: tablet [place] 42 TAKE 1 Medical TABLET BY Branch MOUTH BEFORE MEALS AND AT BEDTIME spironolact Yes spironolac Univers one 25 mg - tone 25 mg ity of tablet 22:28: tablet [place] 42 TAKE 1 Medical TABLET BY Branch MOUTH EVERY DAY SITagliptin Yes Januvia Uni vers (JANUVIA) 8- 100 mg ity of 100 mg 22:28: tablet [place] tablet 42 TAKE 1 Medical TABLET BY Branch MOUTH EVERY DAY FOR 16 DAYS QUEtiapine Yes quetiapine U nivers 300 mg 8- 300 mg ity of tablet 22:28: tablet [place] 42 TAKE 1 Medical TABLET BY Branch MOUTH EVERY EVENING 1 TO 1.5 HOUR PRIOR TO BEDTIME WITH 300 CALORIES SNACK QUEtiapine Yes quetiapine U nivers 200 mg 8- 200 mg ity of tablet 22:28: tablet [place] 42 TAKE 1 Medical TABLET BY Branch MOUTH TWICE DAILY pantoprazol Yes pantoprazo Univers e 40 mg EC 8- le 40 mg ity o f tablet 22:28: tablet,del [place] 42 ayed Medical release Branch TAKE 1 TABLET BY MOUTH EVERY DAY montelukast Yes montelukas Univers 10 mg 8- t 10 mg ity of tablet 22:28: tablet [place] 42 TAKE 1 Medical TABLET BY Branch MOUTH EVERY DAY IN THE EVENING methocarbam Yes methocarba [facility] oL 500 mg 8-19 mol 500 mg ity of tablet 22:28: tablet [place] 42 TAKE 1 Medical TABLET BY Branch MOUTH THREE TIMES DAILY FOR 5 DAYS meloxicam Yes meloxicam Uni vers 15 mg 8-19 15 mg ity of tablet 22:28: tablet [place] 42 TAKE 1 Medical TABLET BY Branch MOUTH EVERY DAY losartan 50 Yes losartan Un yan mg tablet 8- 50 mg ity of 22:28: tablet [place] 42 TAKE 1 Medical TABLET BY Branch MOUTH TWICE DAILY levothyroxi Yes levothyrox Univers ne 175 mcg 8- ine 175 ity of tablet 22:28: mcg tablet [place] 42 TAKE 1 Medical TABLET BY Branch MOUTH EVERY MORNING gabapentin Yes gabapentin U nivers 300 mg 8-19 300 mg ity of capsule 22:28: capsule [place] 42 TAKE 1 Medical CAPSULE BY Branch MOUTH AT BEDTIME DULoxetine Yes duloxetine U nivers 60 mg 8-19 60 mg ity of capsule 22:28: capsule,[place] 42 lay Medical release [place] TAKE 1 CAPSULE BY MOUTH TWICE DAILY divalproex Yes divalproex U nivers 500 mg EC 8-19 500 mg ity of tablet 22:28: tablet,del [place] 42 [facility] Medical release [place] TAKE 1 TABLET BY MOUTH DAILY amLODIPine Yes amlodipine U nivers 5 mg tablet 8-19 5 mg ity of 22:28: tablet [place] 42 TAKE 1 Medical TABLET BY Branch [...] ity o f mg tablet 22:28: at [place] [address] bedtime. Medical Branch acetaminoph Yes acetaminop [facility] en-codeine 8- hen 300 ity of 300-30 mg 22:28: mg-codeine [place] tablet 42 30 mg Medical tablet Branch TAKE 1 TABLET BY MOUTH TWICE DAILY NEEDED traZODone Yes trazodone Uni vers 150 mg 8 150 mg ity of tablet 22:28: tablet [place] 42 TAKE 1 TO Medical 2 TABLETS Branch BY MOUTH EVERY NIGHT AT BEDTIME NEEDED FOR INSOMNIA traMADoL 50 Yes tramadol Un yan mg tablet 03-24 50 mg ity of 22:28: tablet [place] 42 TAKE 1 Medical TABLET BY Branch MOUTH THREE TIMES DAILY sucralfate Yes sucralfate U nivers 1 gram - 1 gram ity of tablet 22:28: tablet [place] 42 TAKE 1 Medical TABLET BY Branch MOUTH BEFORE MEALS AND AT BEDTIME spironolact Yes spironolac [facility] one 25 mg - tone 25 mg ity of tablet 22:28: tablet [place] 42 TAKE 1 Medical TABLET BY Branch MOUTH EVERY DAY SITagliptin Yes Januvia Uni vers (JANUVIA) 8- 100 mg ity of 100 mg 22:28: tablet [place] tablet 42 TAKE 1 Medical TABLET BY Branch MOUTH EVERY DAY FOR 16 DAYS QUEtiapine Yes quetiapine U nivers 300 mg - 300 mg ity of tablet 22:28: tablet [place] 42 TAKE 1 Medical TABLET BY Branch MOUTH EVERY EVENING 1 TO 1.5 HOUR PRIOR TO BEDTIME WITH 300 CALORIES SNACK QUEtiapine Yes quetiapine U nivers 200 mg 03-24 200 mg ity of tablet 22:28: tablet [place] 42 TAKE 1 Medical TABLET BY Branch MOUTH TWICE DAILY pantoprazol Yes pantoprazo Univers e 40 mg EC 8- le 40 mg ity o f tablet 22:28: tablet,del [place] 42 ayed Medical release Branch TAKE 1 TABLET BY MOUTH EVERY DAY montelukast Yes montelukas Univers 10 mg 8- t 10 mg ity of tablet 22:28: tablet [place] 42 TAKE 1 Medical TABLET BY Branch MOUTH EVERY DAY IN THE EVENING methocarbam Yes methocarba [facility] oL 500 mg 8-19 mol 500 mg ity of tablet 22:28: tablet [place] 42 TAKE 1 Medical TABLET BY Branch MOUTH THREE TIMES DAILY FOR 5 DAYS meloxicam Yes meloxicam Uni vers 15 mg 8-19 15 mg ity of tablet 22:28: tablet [place] 42 TAKE 1 Medical TABLET BY Branch MOUTH EVERY DAY losartan 50 Yes losartan Un yan mg tablet 8-19 50 mg ity of 22:28: tablet [place] 42 TAKE 1 Medical TABLET BY Branch MOUTH TWICE DAILY levothyroxi Yes levothyrox [facility] ne 175 mcg 8-19 ine 175 ity of tablet 22:28: mcg tablet [place] 42 TAKE 1 Medical TABLET BY Branch MOUTH EVERY MORNING gabapentin Yes gabapentin U nivers 300 mg 8-19 300 mg ity of capsule 22:28: capsule [place] [address] TAKE 1 Medical CAPSULE BY Branch MOUTH AT BEDTIME DULoxetine Yes duloxetine U nivers 60 mg 8-19 60 mg ity of capsule 22:28: [place] 42 layed Medical release Branch TAKE 1 CAPSULE BY MOUTH TWICE DAILY divalproex Yes divalproex U nivers 500 mg EC 8-19 500 mg ity of tablet 22:28: tablet,del [place] 42 ayed Medical release [place] TAKE 1 TABLET BY MOUTH DAILY amLODIPine Yes amlodipine U nivers 5 mg tablet 8-19 5 mg ity of 22:28: tablet [place] 42 TAKE 1 Medical TABLET BY Branch [...] ity o f mg tablet 22:28: at [place] [address] bedtime. Medical Branch acetaminoph Yes acetaminop [facility] en-codeine 03-24 hen 300 ity of 300-30 mg 22:28: mg-codeine [place] tablet 42 30 mg Medical tablet Branch TAKE 1 TABLET BY MOUTH TWICE DAILY NEEDED traZODone Yes trazodone [facility] vers 150 mg 03-24 150 mg ity of tablet 22:28: tablet [place] 42 TAKE 1 TO Medical 2 TABLETS Branch BY MOUTH EVERY NIGHT AT BEDTIME NEEDED FOR INSOMNIA traMADoL 50 Yes tramadol Un yan mg tablet 03-24 50 mg ity of 22:28: tablet [place] 42 TAKE 1 Medical TABLET BY Branch MOUTH THREE TIMES DAILY sucralfate Yes sucralfate U nivers 1 gram 03-24 1 gram ity of tablet 22:28: tablet [place] 42 TAKE 1 Medical TABLET BY Branch MOUTH BEFORE MEALS AND AT BEDTIME spironolact Yes spironolac [facility] one 25 mg - tone 25 mg ity of tablet 22:28: tablet [place] 42 TAKE 1 Medical TABLET BY Branch MOUTH EVERY DAY SITagliptin Yes Januvia Uni vers (JANUVIA) 03-24 100 mg ity of 100 mg 22:28: tablet [place] tablet 42 TAKE 1 Medical TABLET BY Branch MOUTH EVERY DAY FOR 16 DAYS QUEtiapine Yes quetiapine U nivers 300 mg 03-24 300 mg ity of tablet 22:28: tablet [place] 42 TAKE 1 Medical TABLET BY Branch MOUTH EVERY EVENING 1 TO 1.5 HOUR PRIOR TO BEDTIME WITH 300 CALORIES SNACK QUEtiapine Yes quetiapine U nivers 200 mg 03-24 200 mg ity of tablet 22:28: tablet [place] 42 TAKE 1 Medical TABLET BY Branch MOUTH TWICE DAILY pantoprazol Yes pantoprazo [facility] e 40 mg EC 03-24 le 40 mg ity o f tablet 22:28: tablet,del [place] 42 ayed Medical release Branch TAKE 1 TABLET BY MOUTH EVERY DAY montelukast Yes montelukas Univers 10 mg 8- t 10 mg ity of tablet 22:28: tablet [place] 42 TAKE 1 Medical TABLET BY Branch MOUTH EVERY DAY IN THE EVENING methocarbam Yes methocarba [facility] oL 500 mg - mol 500 mg ity of tablet 22:28: tablet [place] 42 TAKE 1 Medical TABLET BY Branch MOUTH THREE TIMES DAILY FOR 5 DAYS meloxicam Yes meloxicam [facility] vers 15 mg 8-19 15 mg ity of tablet 22:28: tablet [place] 42 TAKE 1 Medical TABLET BY Branch MOUTH EVERY DAY losartan 50 Yes losartan Un yan mg tablet 8-19 50 mg ity of 22:28: tablet [place] 42 TAKE 1 Medical TABLET BY Branch MOUTH TWICE DAILY levothyroxi Yes levothyrox [facility] ne 175 mcg 8- ine 175 ity of tablet 22:28: mcg tablet [place] 42 TAKE 1 Medical TABLET BY Branch MOUTH EVERY MORNING gabapentin Yes gabapentin U nivers 300 mg 8-19 300 mg ity of capsule 22:28: capsule [place] [address] TAKE 1 Medical CAPSULE BY Branch MOUTH AT BEDTIME DULoxetine Yes duloxetine U nivers 60 mg 8-19 60 mg ity of capsule 22:28: [place] 42 layed Medical release [facility] TAKE 1 CAPSULE BY MOUTH TWICE DAILY divalproex Yes divalproex U nivers 500 mg EC 8-19 500 mg ity of tablet 22:28: tablet,del [place] 42 ayed Medical release [place] TAKE 1 TABLET BY MOUTH DAILY amLODIPine Yes amlodipine U nivers 5 mg tablet 8-19 5 mg ity of 22:28: tablet [place] [address] TAKE 1 Medical TABLET BY Branch MOUTH [...] ity o f mg tablet 22:28: at [place] [address] bedtime. Medical Branch acetaminoph Yes acetaminop [facility] en-codeine 8-19 hen 300 ity of 300-30 mg 22:28: mg-codeine [place] tablet 42 30 mg Medical tablet Branch TAKE 1 TABLET BY MOUTH TWICE DAILY NEEDED traZODone Yes trazodone [facility] vers 150 mg 8- 150 mg ity of tablet 22:28: tablet [place] 42 TAKE 1 TO Medical 2 TABLETS Branch BY MOUTH EVERY NIGHT AT BEDTIME NEEDED FOR INSOMNIA traMADoL 50 Yes tramadol Un yan mg tablet 03-24 50 mg ity of 22:28: tablet [place] 42 TAKE 1 Medical TABLET BY Branch MOUTH THREE TIMES DAILY sucralfate Yes sucralfate U nivers 1 gram - 1 gram ity of tablet 22:28: tablet [place] 42 TAKE 1 Medical TABLET BY Branch MOUTH BEFORE MEALS AND AT BEDTIME spironolact Yes spironolac [facility] one 25 mg - tone 25 mg ity of tablet 22:28: tablet [place] 42 TAKE 1 Medical TABLET BY Branch MOUTH EVERY DAY SITagliptin Yes Januvia Uni vers (JANUVIA) 8- 100 mg ity of 100 mg 22:28: tablet [place] tablet 42 TAKE 1 Medical TABLET BY Branch MOUTH EVERY DAY FOR 16 DAYS QUEtiapine Yes quetiapine U nivers 300 mg 8- 300 mg ity of tablet 22:28: tablet [place] 42 TAKE 1 Medical TABLET BY Branch MOUTH EVERY EVENING 1 TO 1.5 HOUR PRIOR TO BEDTIME WITH 300 CALORIES SNACK QUEtiapine Yes quetiapine U nivers 200 mg - 200 mg ity of tablet 22:28: tablet [place] 42 TAKE 1 Medical TABLET BY Branch MOUTH TWICE DAILY pantoprazol Yes pantoprazo [facility] e 40 mg EC 8- le 40 mg ity o f tablet 22:28: tablet,del [place] 42 ayed Medical release Branch TAKE 1 TABLET BY MOUTH EVERY DAY montelukast Yes montelukas [facility] 10 mg 8- t 10 mg ity of tablet 22:28: tablet [place] 42 TAKE 1 Medical TABLET BY Branch MOUTH EVERY DAY IN THE EVENING methocarbam Yes methocarba [facility] oL 500 mg 8- mol 500 mg ity of tablet 22:28: tablet [place] 42 TAKE 1 Medical TABLET BY Branch MOUTH THREE TIMES DAILY FOR 5 DAYS meloxicam Yes meloxicam [facility] vers 15 mg 8- 15 mg ity of tablet 22:28: tablet [place] 42 TAKE 1 Medical TABLET BY Branch MOUTH EVERY DAY losartan 50 Yes losartan Un yan mg tablet 8-19 50 mg ity of 22:28: tablet [place] 42 TAKE 1 Medical TABLET BY Branch MOUTH TWICE DAILY levothyroxi Yes levothyrox [facility] ne 175 mcg 8-19 ine 175 ity of tablet 22:28: mcg tablet [place] 42 TAKE 1 Medical TABLET BY Branch MOUTH EVERY MORNING gabapentin Yes gabapentin U nivers 300 mg 8- 300 mg ity of capsule 22:28: capsule [place] 42 TAKE 1 Medical CAPSULE BY Branch MOUTH AT BEDTIME DULoxetine Yes duloxetine U nivers 60 mg 8-19 60 mg ity of capsule 22:28: capsule[place] 42 layed Medical release Branch TAKE 1 CAPSULE BY MOUTH TWICE DAILY divalproex Yes divalproex U nivers 500 mg EC 8-19 500 mg ity of tablet 22:28: tablet,del [place] 42 ayed Medical release Branch TAKE 1 TABLET BY MOUTH DAILY amLODIPine Yes amlodipine U nivers 5 mg tablet 8- 5 mg ity of 22:28: tablet [place] 42 TAKE 1 Medical TABLET BY Branch [...] ity o f mg tablet 22:28: at [place] [address] bedtime. Medical Branch acetaminoph Yes acetaminop [facility] en-codeine 8-19 hen 300 ity of 300-30 mg 22:28: mg-codeine [place] tablet 42 30 mg Medical tablet Branch TAKE 1 TABLET BY MOUTH TWICE DAILY NEEDED traZODone Yes trazodone [facility] vers 150 mg 8-19 150 mg ity of tablet 22:28: tablet [place] 42 TAKE 1 TO Medical 2 TABLETS Branch BY MOUTH EVERY NIGHT AT BEDTIME NEEDED FOR INSOMNIA traMADoL 50 Yes tramadol Un yan mg tablet 8- 50 mg ity of 22:28: tablet [place] 42 TAKE 1 Medical TABLET BY Branch MOUTH THREE TIMES DAILY sucralfate Yes sucralfate U nivers 1 gram 8- 1 gram ity of tablet 22:28: tablet [place] 42 TAKE 1 Medical TABLET BY Branch MOUTH BEFORE MEALS AND AT BEDTIME spironolact Yes spironolac [facility] one 25 mg 8- tone 25 mg ity of tablet 22:28: tablet [place] 42 TAKE 1 Medical TABLET BY Branch MOUTH EVERY DAY SITagliptin Yes Januvia Uni vers (JANUVIA) 8- 100 mg ity of 100 mg 22:28: tablet [place] tablet 42 TAKE 1 Medical TABLET BY Branch MOUTH EVERY DAY FOR 16 DAYS QUEtiapine Yes quetiapine U nivers 300 mg 03-24 300 mg ity of tablet 22:28: tablet [place] 42 TAKE 1 Medical TABLET BY Branch MOUTH EVERY EVENING 1 TO 1.5 HOUR PRIOR TO BEDTIME WITH 300 CALORIES SNACK QUEtiapine Yes quetiapine U nivers 200 mg 03-24 200 mg ity of tablet 22:28: tablet [place] 42 TAKE 1 Medical TABLET BY Branch MOUTH TWICE DAILY pantoprazol Yes pantoprazo [facility] e 40 mg EC 03-24 le 40 mg ity o f tablet 22:28: tablet,del [place] 42 ayed Medical release Branch TAKE 1 TABLET BY MOUTH EVERY DAY montelukast Yes montelukas [facility] 10 mg 03-24 t 10 mg ity of tablet 22:28: tablet [place] 42 TAKE 1 Medical TABLET BY Branch MOUTH EVERY DAY IN THE EVENING methocarbam Yes methocarba [facility] oL 500 mg 03-24 mol 500 mg ity of tablet 22:28: tablet [place] 42 TAKE 1 Medical TABLET BY Branch MOUTH THREE TIMES DAILY FOR 5 DAYS meloxicam Yes meloxicam [facility] vers 15 mg - 15 mg ity of tablet 22:28: tablet [place] 42 TAKE 1 Medical TABLET BY Branch MOUTH EVERY DAY losartan 50 Yes losartan Un yan mg tablet 03-24 50 mg ity of 22:28: tablet [place] 42 TAKE 1 Medical TABLET BY Branch MOUTH TWICE DAILY levothyroxi Yes levothyrox [facility] ne 175 mcg 8-19 ine 175 ity of tablet 22:28: mcg [place] 42 TAKE 1 Medical TABLET BY Branch MOUTH EVERY MORNING gabapentin Yes gabapentin U nivers 300 mg 8-19 300 mg ity of capsule 22:28: capsule [place] 42 TAKE 1 Medical CAPSULE BY Branch MOUTH AT BEDTIME DULoxetine Yes duloxetine U nivers 60 mg 8-19 60 mg ity of capsule 22:28: capsule[place] 42 layed Medical release Branch TAKE 1 CAPSULE BY MOUTH TWICE DAILY divalproex Yes divalproex U nivers 500 mg EC 8-19 500 mg ity of tablet 22:28: tablet,del [place] 42 ayed Medical release Branch TAKE 1 TABLET BY MOUTH DAILY amLODIPine Yes amlodipine U nivers 5 mg tablet 8- 5 mg ity of 22:28: tablet [place] TAKE 1 Medical TABLET BY Branch MOUTH [...] ity o f mg tablet 22:28: at [place] [address] bedtime. Medical Branch acetaminoph Yes acetaminop [facility] en-codeine 8-19 hen 300 ity of 300-30 mg 22:28: mg-codeine [place] tablet 42 30 mg Medical tablet Branch TAKE 1 TABLET BY MOUTH TWICE DAILY NEEDED traZODone Yes trazodone [facility] vers 150 mg 8-19 150 mg ity of tablet 22:28: tablet [place] 42 TAKE 1 TO Medical 2 TABLETS Branch BY MOUTH EVERY NIGHT AT BEDTIME NEEDED FOR INSOMNIA traMADoL 50 Yes tramadol Un yan mg tablet 8-19 50 mg ity of 22:28: tablet [place] 42 TAKE 1 Medical TABLET BY Branch MOUTH THREE TIMES DAILY sucralfate Yes sucralfate U nivers 1 gram 03-24 1 gram ity of tablet 22:28: tablet [place] 42 TAKE 1 Medical TABLET BY Branch MOUTH BEFORE MEALS AND AT BEDTIME spironolact Yes spironolac [facility] one 25 mg 03-24 tone 25 mg ity of tablet 22:28: tablet [place] 42 TAKE 1 Medical TABLET BY Branch MOUTH EVERY DAY SITagliptin Yes Januvia Uni vers (JANUVIA) 03-24 100 mg ity of 100 mg 22:28: tablet [place] tablet 42 TAKE 1 Medical TABLET BY Branch MOUTH EVERY DAY FOR 16 DAYS QUEtiapine Yes quetiapine U nivers 300 mg 03-24 300 mg ity of tablet 22:28: tablet [place] 42 TAKE 1 Medical TABLET BY Branch MOUTH EVERY EVENING 1 TO 1.5 HOUR PRIOR TO BEDTIME WITH 300 CALORIES SNACK QUEtiapine Yes quetiapine U nivers 200 mg 03-24 200 mg ity of tablet 22:28: tablet [place] 42 TAKE 1 Medical TABLET BY Branch MOUTH TWICE DAILY pantoprazol Yes pantoprazo [facility] e 40 mg EC 03-24 le 40 mg ity o f tablet 22:28: tablet,del [place] 42 ayed Medical release Branch TAKE 1 TABLET BY MOUTH EVERY DAY montelukast Yes montelukas [facility] 10 mg 03-24 t 10 mg ity of tablet 22:28: tablet [place] 42 TAKE 1 Medical TABLET BY Branch MOUTH EVERY DAY IN THE EVENING methocarbam Yes methocarba [facility] oL 500 mg 03-24 mol 500 mg ity of tablet 22:28: tablet [place] 42 TAKE 1 Medical TABLET BY Branch MOUTH THREE TIMES DAILY FOR 5 DAYS meloxicam Yes meloxicam [facility] vers 15 mg 03-24 15 mg ity of tablet 22:28: tablet [place] 42 TAKE 1 Medical TABLET BY Branch MOUTH EVERY DAY losartan 50 Yes losartan Un yan mg tablet 03-24 50 mg ity of 22:28: tablet [place] 42 TAKE 1 Medical TABLET BY Branch MOUTH TWICE DAILY levothyroxi Yes levothyrox [facility] ne 175 mcg 03-24 ine 175 ity of tablet 22:28: mcg tablet [place] 42 TAKE 1 Medical TABLET BY Branch MOUTH EVERY MORNING gabapentin Yes gabapentin U nivers 300 mg 8-19 300 mg ity of capsule 22:28: capsule [place] 42 TAKE 1 Medical CAPSULE BY Branch MOUTH AT BEDTIME DULoxetine Yes duloxetine U nivers 60 mg 8-19 60 mg ity of capsule 22:28: capsule,[place] 42 layed Medical release Branch TAKE 1 CAPSULE BY MOUTH TWICE DAILY divalproex Yes divalproex U nivers 500 mg EC 8-19 500 mg ity of tablet 22:28: tablet,del [place] 42 ayed Medical release Branch TAKE 1 TABLET BY MOUTH DAILY amLODIPine Yes amlodipine U nivers 5 mg tablet 8-19 5 mg ity of 22:28: tablet [place] 42 TAKE 1 Medical TABLET BY Branch [...] ity o f mg tablet 22:28: at [place] [address] bedtime. Medical Branch acetaminoph Yes acetaminop [facility] en-codeine 8-19 hen 300 ity of 300-30 mg 22:28: mg-codeine [place] tablet 42 30 mg Medical tablet Branch TAKE 1 TABLET BY MOUTH TWICE DAILY NEEDED traZODone Yes trazodone [facility] vers 150 mg 8-19 150 mg ity of tablet 22:28: tablet [place] 42 TAKE 1 TO Medical 2 TABLETS Branch BY MOUTH EVERY NIGHT AT BEDTIME NEEDED FOR INSOMNIA traMADoL 50 Yes tramadol Un yan mg tablet 8-19 50 mg ity of 22:28: tablet [place] 42 TAKE 1 Medical TABLET BY Branch MOUTH THREE TIMES DAILY sucralfate Yes sucralfate U nivers 1 gram 8-19 1 gram ity of tablet 22:28: tablet [place] 42 TAKE 1 Medical TABLET BY Branch MOUTH BEFORE MEALS AND AT BEDTIME spironolact Yes spironolac [facility] one 25 mg 03-24 tone 25 mg ity of tablet 22:28: tablet [place] 42 TAKE 1 Medical TABLET BY Branch MOUTH EVERY DAY SITagliptin Yes Januvia Uni vers (JANUVIA) 8 100 mg ity of 100 mg 22:28: tablet [place] tablet 42 TAKE 1 Medical TABLET BY Branch MOUTH EVERY DAY FOR 16 DAYS QUEtiapine Yes quetiapine U nivers 300 mg 03-24 300 mg ity of tablet 22:28: tablet [place] 42 TAKE 1 Medical TABLET BY Branch MOUTH EVERY EVENING 1 TO 1.5 HOUR PRIOR TO BEDTIME WITH 300 CALORIES SNACK QUEtiapine Yes quetiapine U nivers 200 mg 03-24 200 mg ity of tablet 22:28: tablet [place] 42 TAKE 1 Medical TABLET BY Branch MOUTH TWICE DAILY pantoprazol Yes pantoprazo [facility] e 40 mg EC 03-24 le 40 mg ity o f tablet 22:28: tablet,del [place] 42 ayed Medical release Branch TAKE 1 TABLET BY MOUTH EVERY DAY montelukast Yes montelukas [facility] 10 mg 03-24 t 10 mg ity of tablet 22:28: tablet [place] 42 TAKE 1 Medical TABLET BY Branch MOUTH EVERY DAY IN THE EVENING methocarbam Yes methocarba [facility] oL 500 mg 03-24 mol 500 mg ity of tablet 22:28: tablet [place] 42 TAKE 1 Medical TABLET BY Branch MOUTH THREE TIMES DAILY FOR 5 DAYS meloxicam Yes meloxicam Uni vers 15 mg 03-24 15 mg ity of tablet 22:28: tablet [place] 42 TAKE 1 Medical TABLET BY Branch MOUTH EVERY DAY losartan 50 Yes losartan Un yan mg tablet 03-24 50 mg ity of 22:28: tablet [place] 42 TAKE 1 Medical TABLET BY Branch MOUTH TWICE DAILY levothyroxi Yes levothyrox [facility] ne 175 mcg 03-24 ine 175 ity of tablet 22:28: mcg tablet [place] 42 TAKE 1 Medical TABLET BY Branch MOUTH EVERY MORNING gabapentin Yes gabapentin U nivers 300 mg 03-24 300 mg ity of capsule 22:28: capsule [place] 42 TAKE 1 Medical CAPSULE BY Branch MOUTH AT BEDTIME DULoxetine Yes duloxetine U nivers 60 mg 8-19 60 mg ity of capsule 22:28: capsule,[place] 42 layed Medical release Branch TAKE 1 CAPSULE BY MOUTH TWICE DAILY divalproex Yes divalproex U nivers 500 mg EC 8-19 500 mg ity of tablet 22:28: tablet,del [place] 42 ayed Medical release Branch TAKE 1 TABLET BY MOUTH DAILY amLODIPine Yes amlodipine U nivers 5 mg tablet 8-19 5 mg ity of 22:28: tablet [place] 42 TAKE 1 Medical TABLET BY Branch [...] ity o f mg tablet 22:28: at [place] [address] bedtime. Medical Branch acetaminoph Yes acetaminop [facility] en-codeine 8-19 hen 300 ity of 300-30 mg 22:28: mg-codeine [place] tablet 42 30 mg Medical tablet Branch TAKE 1 TABLET BY MOUTH TWICE DAILY NEEDED traZODone Yes trazodone Uni vers 150 mg 8-19 150 mg ity of tablet 22:28: tablet [place] 42 TAKE 1 TO Medical 2 TABLETS Branch BY MOUTH EVERY NIGHT AT BEDTIME NEEDED FOR INSOMNIA traMADoL 50 Yes tramadol Un yan mg tablet 8-19 50 mg ity of 22:28: tablet [place] 42 TAKE 1 Medical TABLET BY Branch MOUTH THREE TIMES DAILY sucralfate Yes sucralfate U nivers 1 gram 8-19 1 gram ity of tablet 22:28: tablet [place] 42 TAKE 1 Medical TABLET BY Branch MOUTH BEFORE MEALS AND AT BEDTIME spironolact Yes spironolac [facility] one 25 mg 8-19 tone 25 mg ity of tablet 22:28: tablet [place] 42 TAKE 1 Medical TABLET BY Branch MOUTH EVERY DAY SITagliptin Yes Januvia Uni vers (JANUVIA) 8- 100 mg ity of 100 mg 22:28: tablet [place] tablet 42 TAKE 1 Medical TABLET BY Branch MOUTH EVERY DAY FOR 16 DAYS QUEtiapine Yes quetiapine U nivers 300 mg 8- 300 mg ity of tablet 22:28: tablet [place] 42 TAKE 1 Medical TABLET BY Branch MOUTH EVERY EVENING 1 TO 1.5 HOUR PRIOR TO BEDTIME WITH 300 CALORIES SNACK QUEtiapine Yes quetiapine U nivers 200 mg 8- 200 mg ity of tablet 22:28: tablet [place] 42 TAKE 1 Medical TABLET BY Branch MOUTH TWICE DAILY pantoprazol Yes pantoprazo Univers e 40 mg EC 03-24 le 40 mg ity o f tablet 22:28: tablet,del [place] 42 ayed Medical release [place] TAKE 1 TABLET BY MOUTH EVERY DAY montelukast Yes montelukas [facility] 10 mg 03-24 t 10 mg ity of tablet 22:28: tablet [place] 42 TAKE 1 Medical TABLET BY Branch MOUTH EVERY DAY IN THE EVENING methocarbam Yes methocarba [facility] oL 500 mg 03-24 mol 500 mg ity of tablet 22:28: tablet [place] 42 TAKE 1 Medical TABLET BY Branch MOUTH THREE TIMES DAILY FOR 5 DAYS meloxicam Yes meloxicam [facility] vers 15 mg 03-24 15 mg ity of tablet 22:28: tablet [place] 42 TAKE 1 Medical TABLET BY Branch MOUTH EVERY DAY losartan 50 Yes losartan Un yan mg tablet 03-24 50 mg ity of 22:28: tablet [place] 42 TAKE 1 Medical TABLET BY Branch MOUTH TWICE DAILY levothyroxi Yes levothyrox [facility] ne 175 mcg 03-24 ine 175 ity of tablet 22:28: mcg tablet [place] 42 TAKE 1 Medical TABLET BY Branch MOUTH EVERY MORNING gabapentin Yes gabapentin U nivers 300 mg 8- 300 mg ity of capsule 22:28: capsule [place] 42 TAKE 1 Medical CAPSULE BY Branch MOUTH AT BEDTIME DULoxetine Yes duloxetine U nivers 60 mg 8 60 mg ity of capsule 22:28: capsule[place] layed Medical release [place] TAKE 1 CAPSULE BY MOUTH TWICE DAILY divalproex 2022-0 Yes divalproex U nivers 500 mg EC 8-19 500 mg ity of tablet 22:28: tablet,del [place] 42 ayed Medical release Branch TAKE 1 TABLET BY MOUTH DAILY amLODIPine Yes amlodipine U nivers 5 mg tablet 8- 5 mg ity of 22:28: tablet [place] 42 TAKE 1 Medical TABLET BY Branch [...] ity o f mg tablet 22:28: at [place] [address] bedtime. Medical Branch acetaminoph Yes acetaminop [facility] en-codeine 8- hen 300 ity of 300-30 mg 22:28: mg-codeine [place] tablet 42 30 mg Medical tablet Branch TAKE 1 TABLET BY MOUTH TWICE DAILY NEEDED traZODone Yes trazodone Uni vers 150 mg 8- 150 mg ity of tablet 22:28: tablet [place] 42 TAKE 1 TO Medical 2 TABLETS Branch BY MOUTH EVERY NIGHT AT BEDTIME NEEDED FOR INSOMNIA traMADoL 50 Yes tramadol Un yan mg tablet 03-24 50 mg ity of 22:28: tablet [place] 42 TAKE 1 Medical TABLET BY Branch MOUTH THREE TIMES DAILY sucralfate Yes sucralfate U nivers 1 gram 8- 1 gram ity of tablet 22:28: tablet [place] 42 TAKE 1 Medical TABLET BY Branch MOUTH BEFORE MEALS AND AT BEDTIME spironolact Yes spironolac [facility] one 25 mg 8- tone 25 mg ity of tablet 22:28: tablet [place] [address] TAKE 1 Medical TABLET BY Branch MOUTH EVERY DAY SITagliptin Yes Januvia Uni vers (JANUVIA) 8- 100 mg ity of 100 mg 22:28: tablet [place] tablet 42 TAKE 1 Medical TABLET BY Branch MOUTH EVERY DAY FOR 16 DAYS QUEtiapine Yes quetiapine U nivers 300 mg 8- 300 mg ity of tablet 22:28: tablet [place] 42 TAKE 1 Medical TABLET BY Branch MOUTH EVERY EVENING 1 TO 1.5 HOUR PRIOR TO BEDTIME WITH 300 CALORIES SNACK QUEtiapine Yes quetiapine U nivers 200 mg 8- 200 mg ity of tablet 22:28: tablet [place] 42 TAKE 1 Medical TABLET BY Branch MOUTH TWICE DAILY pantoprazol Yes pantoprazo Univers e 40 mg EC 8 le 40 mg ity o f tablet 22:28: tabletlow [place] 42 ayed Medical release [place] TAKE 1 TABLET BY MOUTH EVERY DAY montelukast Yes montelukas Univers 10 mg 8- t 10 mg ity of tablet 22:28: tablet [place] 42 TAKE 1 Medical TABLET BY Branch MOUTH EVERY DAY IN THE EVENING methocarbam Yes methocarba [facility] oL 500 mg 8 mol 500 mg ity of tablet 22:28: tablet [place] 42 TAKE 1 Medical TABLET BY Branch MOUTH THREE TIMES DAILY FOR 5 DAYS meloxicam Yes meloxicam Uni vers 15 mg 8- 15 mg ity of tablet 22:28: tablet [place] 42 TAKE 1 Medical TABLET BY Branch MOUTH EVERY DAY losartan 50 Yes losartan Un yan mg tablet 03-24 50 mg ity of 22:28: tablet [place] 42 TAKE 1 Medical TABLET BY Branch MOUTH TWICE DAILY levothyroxi Yes levothyrox [facility] ne 175 mcg 8- ine 175 ity of tablet 22:28: mcg tablet [place] 42 TAKE 1 Medical TABLET BY Branch MOUTH EVERY MORNING gabapentin Yes gabapentin U nivers 300 mg 8- 300 mg ity of capsule 22:28: capsule [place] 42 TAKE 1 Medical CAPSULE BY Branch MOUTH AT BEDTIME DULoxetine Yes duloxetine U nivers 60 mg 8- 60 mg ity of capsule 22:28: [place] 42 layed Medical release [place] TAKE 1 CAPSULE BY MOUTH TWICE DAILY divalproex Yes divalproex U nivers 500 mg EC 8- 500 mg ity of tablet 22:28: tabletdel [place] 42 ayed Medical release [place] TAKE 1 TABLET BY MOUTH DAILY amLODIPine Yes amlodipine U nivers 5 mg tablet 8-19 5 mg ity of 22:28: tablet [place] 42 TAKE 1 Medical TABLET BY Branch [...] ity o f mg tablet 22:28: at [place] [address] bedtime. Medical Branch acetaminoph Yes acetaminop [facility] en-codeine 8-19 hen 300 ity of 300-30 mg 22:28: mg-codeine [place] tablet 42 30 mg Medical tablet Branch TAKE 1 TABLET BY MOUTH TWICE DAILY NEEDED traZODone Yes trazodone Uni vers 150 mg 8- 150 mg ity of tablet 22:28: tablet [place] 42 TAKE 1 TO Medical 2 TABLETS Branch BY MOUTH EVERY NIGHT AT BEDTIME NEEDED FOR INSOMNIA traMADoL 50 Yes tramadol Un yan mg tablet 8- 50 mg ity of 22:28: tablet [place] 42 TAKE 1 Medical TABLET BY Branch MOUTH THREE TIMES DAILY sucralfate Yes sucralfate U nivers 1 gram 8- 1 gram ity of tablet 22:28: tablet [place] 42 TAKE 1 Medical TABLET BY Branch MOUTH BEFORE MEALS AND AT BEDTIME spironolact Yes spironolac [facility] one 25 mg 8-19 tone 25 mg ity of tablet 22:28: tablet [place] 42 TAKE 1 Medical TABLET BY Branch MOUTH EVERY DAY SITagliptin Yes Januvia Uni vers (JANUVIA) 8-19 100 mg ity of 100 mg 22:28: tablet [place] tablet 42 TAKE 1 Medical TABLET BY Branch MOUTH EVERY DAY FOR 16 DAYS QUEtiapine Yes quetiapine U nivers 300 mg 8-19 300 mg ity of tablet 22:28: tablet [place] 42 TAKE 1 Medical TABLET BY Branch MOUTH EVERY EVENING 1 TO 1.5 HOUR PRIOR TO BEDTIME WITH 300 CALORIES SNACK QUEtiapine Yes quetiapine U nivers 200 mg 03-24 200 mg ity of tablet 22:28: tablet [place] 42 TAKE 1 Medical TABLET BY Branch MOUTH TWICE DAILY pantoprazol Yes pantoprazo Univers e 40 mg EC 03-24 le 40 mg ity o f tablet 22:28: tablet,low [place] 42 ayed Medical release [place] TAKE 1 TABLET BY MOUTH EVERY DAY montelukast Yes montelukas Univers 10 mg 03-24 t 10 mg ity of tablet 22:28: tablet [place] 42 TAKE 1 Medical TABLET BY Branch MOUTH EVERY DAY IN THE EVENING methocarbam Yes methocarba Univers oL 500 mg 03-24 mol 500 mg ity of tablet 22:28: tablet [place] 42 TAKE 1 Medical TABLET BY Branch MOUTH THREE TIMES DAILY FOR 5 DAYS meloxicam Yes meloxicam Uni vers 15 mg 03-24 15 mg ity of tablet 22:28: tablet [place] 42 TAKE 1 Medical TABLET BY Branch MOUTH EVERY DAY losartan 50 Yes losartan Un yan mg tablet 03-24 50 mg ity of 22:28: tablet [place] 42 TAKE 1 Medical TABLET BY Branch MOUTH TWICE DAILY levothyroxi Yes levothyrox Univers ne 175 mcg 03-24 ine 175 ity of tablet 22:28: mcg tablet [place] 42 TAKE 1 Medical TABLET BY Branch MOUTH EVERY MORNING gabapentin Yes gabapentin U nivers 300 mg 03-24 300 mg ity of capsule 22:28: capsule [place] 42 TAKE 1 Medical CAPSULE BY Branch MOUTH AT BEDTIME DULoxetine Yes duloxetine U nivers 60 mg 03-24 60 mg ity of capsule 22:28: capsule,[place] 42 layed Medical release [place] TAKE 1 CAPSULE BY MOUTH TWICE DAILY divalproex Yes divalproex U nivers 500 mg EC 03-24 500 mg ity of tablet 22:28: tabletdel [place] 42 ayed Medical release [place] TAKE 1 TABLET BY MOUTH DAILY amLODIPine Yes amlodipine U nivers 5 mg tablet 03-24 5 mg ity of 22:28: tablet [place] 42 TAKE 1 Medical TABLET BY Branch [...] ity o f mg tablet 22:28: at [place] [address] bedtime. Medical Branch acetaminoph Yes acetaminop Univers en-codeine 8-19 hen 300 ity of 300-30 mg 22:28: mg-codeine [place] tablet 42 30 mg Medical tablet Branch TAKE 1 TABLET BY MOUTH TWICE DAILY NEEDED traZODone Yes trazodone Uni vers 150 mg 8-19 150 mg ity of tablet 22:28: tablet [place] 42 TAKE 1 TO Medical 2 TABLETS Branch BY MOUTH EVERY NIGHT AT BEDTIME NEEDED FOR INSOMNIA traMADoL 50 Yes tramadol Un yan mg tablet 8-19 50 mg ity of 22:28: tablet [place] 42 TAKE 1 Medical TABLET BY Branch MOUTH THREE TIMES DAILY sucralfate Yes sucralfate U nivers 1 gram 8-19 1 gram ity of tablet 22:28: tablet [place] 42 TAKE 1 Medical TABLET BY Branch MOUTH BEFORE MEALS AND AT BEDTIME spironolact Yes spironolac Univers one 25 mg 8-19 tone 25 mg ity of tablet 22:28: tablet [place] 42 TAKE 1 Medical TABLET BY Branch MOUTH EVERY DAY SITagliptin Yes Januvia Uni vers (JANUVIA) 8-19 100 mg ity of 100 mg 22:28: tablet [place] tablet 42 TAKE 1 Medical TABLET BY Branch MOUTH EVERY DAY FOR 16 DAYS QUEtiapine Yes quetiapine U nivers 300 mg 8-19 300 mg ity of tablet 22:28: tablet [place] 42 TAKE 1 Medical TABLET BY Branch MOUTH EVERY EVENING 1 TO 1.5 HOUR PRIOR TO BEDTIME WITH 300 CALORIES SNACK QUEtiapine Yes quetiapine U nivers 200 mg 8-19 200 mg ity of tablet 22:28: tablet [place] 42 TAKE 1 Medical TABLET BY Branch MOUTH TWICE DAILY pantoprazol Yes pantoprazo Univers e 40 mg EC 8 le 40 mg ity o f tablet 22:28: tablet,del [place] 42 ayed Medical release [place] TAKE 1 TABLET BY MOUTH EVERY DAY montelukast Yes montelukas Univers 10 mg 8 t 10 mg ity of tablet 22:28: tablet [place] 42 TAKE 1 Medical TABLET BY Branch MOUTH EVERY DAY IN THE EVENING methocarbam Yes methocarba Univers oL 500 mg 03-24 mol 500 mg ity of tablet 22:28: tablet [place] 42 TAKE 1 Medical TABLET BY Branch MOUTH THREE TIMES DAILY FOR 5 DAYS meloxicam Yes meloxicam Uni vers 15 mg 03-24 15 mg ity of tablet 22:28: tablet [place] 42 TAKE 1 Medical TABLET BY Branch MOUTH EVERY DAY losartan 50 Yes losartan Un yan mg tablet 03-24 50 mg ity of 22:28: tablet [place] 42 TAKE 1 Medical TABLET BY Branch MOUTH TWICE DAILY levothyroxi Yes levothyrox Univers ne 175 mcg - ine 175 ity of tablet 22:28: mcg tablet [place] 42 TAKE 1 Medical TABLET BY Branch MOUTH EVERY MORNING gabapentin Yes gabapentin U nivers 300 mg 03-24 300 mg ity of capsule 22:28: capsule [place] 42 TAKE 1 Medical CAPSULE BY Branch MOUTH AT BEDTIME DULoxetine Yes duloxetine U nivers 60 mg 8 60 mg ity of capsule 22:28: capsule,[place] [address] [facility] TAKE 1 CAPSULE BY MOUTH TWICE DAILY divalproex Yes divalproex U nivers 500 mg EC 03-24 500 mg ity of tablet 22:28: tablet,low [place] 42 ay Medical release [place] TAKE 1 TABLET BY MOUTH DAILY amLODIPine Yes amlodipine U nivers 5 mg tablet 03-24 5 mg ity of 22:28: tablet [place] 42 TAKE 1 Medical TABLET BY Branch MOUTH TWICE DAILY acetaminoph Yes 1{tbl} Take 1 Un yan en-codeine -19 tablet by ity of (TYLENOL-CO 22:28: mouth [...] ity o f mg tablet 22:28: at [place] [address] bedtime. Medical Branch acetaminoph Yes acetaminop Univers en-codeine 8- hen 300 ity of 300-30 mg 22:28: mg-codeine [place] tablet 42 30 mg Medical tablet Branch TAKE 1 TABLET BY MOUTH TWICE DAILY NEEDED traZODone Yes trazodone Uni vers 150 mg 8- 150 mg ity of tablet 22:28: tablet [place] 42 TAKE 1 TO Medical 2 TABLETS Branch BY MOUTH EVERY NIGHT AT BEDTIME NEEDED FOR INSOMNIA traMADoL 50 Yes tramadol Un yan mg tablet 03-24 50 mg ity of 22:28: tablet [place] 42 TAKE 1 Medical TABLET BY Branch MOUTH THREE TIMES DAILY sucralfate Yes sucralfate U nivers 1 gram 03-24 1 gram ity of tablet 22:28: tablet [place] 42 TAKE 1 Medical TABLET BY Branch MOUTH BEFORE MEALS AND AT BEDTIME spironolact Yes spironolac Univers one 25 mg - tone 25 mg ity of tablet 22:28: tablet [place] 42 TAKE 1 Medical TABLET BY Branch MOUTH EVERY DAY SITagliptin Yes Januvia Uni vers (JANUVIA) 8- 100 mg ity of 100 mg 22:28: tablet [place] tablet 42 TAKE 1 Medical TABLET BY Branch MOUTH EVERY DAY FOR 16 DAYS QUEtiapine Yes quetiapine U nivers 300 mg 8- 300 mg ity of tablet 22:28: tablet [place] 42 TAKE 1 Medical TABLET BY Branch MOUTH EVERY EVENING 1 TO 1.5 HOUR PRIOR TO BEDTIME WITH 300 CALORIES SNACK QUEtiapine Yes quetiapine U nivers 200 mg 8- 200 mg ity of tablet 22:28: tablet [place] 42 TAKE 1 Medical TABLET BY Branch MOUTH TWICE DAILY pantoprazol Yes pantoprazo Univers e 40 mg EC 8 le 40 mg ity o f tablet 22:28: tablet,del [place] 42 ay Medical release [place] TAKE 1 TABLET BY MOUTH EVERY DAY montelukast Yes montelukas Univers 10 mg 8- t 10 mg ity of tablet 22:28: tablet [place] 42 TAKE 1 Medical TABLET BY Branch MOUTH EVERY DAY IN THE EVENING methocarbam Yes methocarba Univers oL 500 mg 8-19 mol 500 mg ity of tablet 22:28: tablet [place] 42 TAKE 1 Medical TABLET BY Branch MOUTH THREE TIMES DAILY FOR 5 DAYS meloxicam Yes meloxicam Uni vers 15 mg 8-19 15 mg ity of tablet 22:28: tablet [place] 42 TAKE 1 Medical TABLET BY Branch MOUTH EVERY DAY losartan 50 Yes losartan Un yan mg tablet 8- 50 mg ity of 22:28: tablet [place] 42 TAKE 1 Medical TABLET BY Branch MOUTH TWICE DAILY levothyroxi Yes levothyrox Univers ne 175 mcg 8- ine 175 ity of tablet 22:28: mcg tablet [place] [address] TAKE 1 Medical TABLET BY Branch MOUTH EVERY MORNING gabapentin Yes gabapentin U nivers 300 mg 8- 300 mg ity of capsule 22:28: capsule [place] 42 TAKE 1 Medical CAPSULE BY Branch MOUTH AT BEDTIME DULoxetine Yes duloxetine U nivers 60 mg 8-19 60 mg ity of capsule 22:28: capsule,[place] [address] [facility] Medical release [place] TAKE 1 CAPSULE BY MOUTH TWICE DAILY divalproex Yes divalproex U nivers 500 mg EC 8-19 500 mg ity of tablet 22:28: tablet,del [place] [facility] TAKE 1 TABLET BY MOUTH DAILY amLODIPine Yes amlodipine U nivers 5 mg tablet 8- 5 mg ity of 22:28: tablet [place] 42 TAKE 1 Medical TABLET BY Branch [...] ity o f mg tablet 22:28: at [place] [address] bedtime. Medical Branch acetaminoph Yes acetaminop Univers en-codeine 8- hen 300 ity of 300-30 mg 22:28: mg-codeine [place] tablet 42 30 mg Medical tablet Branch TAKE 1 TABLET BY MOUTH TWICE DAILY NEEDED traZODone Yes trazodone Uni vers 150 mg 03-24 150 mg ity of tablet 22:28: tablet [place] 42 TAKE 1 TO Medical 2 TABLETS Branch BY MOUTH EVERY NIGHT AT BEDTIME NEEDED FOR INSOMNIA traMADoL 50 Yes tramadol Un yan mg tablet 03-24 50 mg ity of 22:28: tablet [place] 42 TAKE 1 Medical TABLET BY Branch MOUTH THREE TIMES DAILY sucralfate Yes sucralfate U nivers 1 gram 03-24 1 gram ity of tablet 22:28: tablet [place] 42 TAKE 1 Medical TABLET BY Branch MOUTH BEFORE MEALS AND AT BEDTIME spironolact Yes spironolac Univers one 25 mg - tone 25 mg ity of tablet 22:28: tablet [place] 42 TAKE 1 Medical TABLET BY Branch MOUTH EVERY DAY SITagliptin Yes Januvia Uni vers (JANUVIA) - 100 mg ity of 100 mg 22:28: tablet [place] tablet 42 TAKE 1 Medical TABLET BY Branch MOUTH EVERY DAY FOR 16 DAYS QUEtiapine Yes quetiapine U nivers 300 mg 03-24 300 mg ity of tablet 22:28: tablet [place] 42 TAKE 1 Medical TABLET BY Branch MOUTH EVERY EVENING 1 TO 1.5 HOUR PRIOR TO BEDTIME WITH 300 CALORIES SNACK QUEtiapine Yes quetiapine U nivers 200 mg 03-24 200 mg ity of tablet 22:28: tablet [place] 42 TAKE 1 Medical TABLET BY Branch MOUTH TWICE DAILY pantoprazol Yes pantoprazo Univers e 40 mg EC 8- le 40 mg ity o f tablet 22:28: tablet,del [place] 42 ayed Medical release Branch TAKE 1 TABLET BY MOUTH EVERY DAY montelukast Yes montelukas Univers 10 mg 8- t 10 mg ity of tablet 22:28: tablet [place] 42 TAKE 1 Medical TABLET BY Branch MOUTH EVERY DAY IN THE EVENING methocarbam Yes methocarba Univers oL 500 mg 8-19 mol 500 mg ity of tablet 22:28: tablet [place] 42 TAKE 1 Medical TABLET BY Branch MOUTH THREE TIMES DAILY FOR 5 DAYS meloxicam Yes meloxicam Uni vers 15 mg 8-19 15 mg ity of tablet 22:28: tablet [place] 42 TAKE 1 Medical TABLET BY Branch MOUTH EVERY DAY losartan 50 Yes losartan Un yan mg tablet 8-19 50 mg ity of 22:28: tablet [place] 42 TAKE 1 Medical TABLET BY Branch MOUTH TWICE DAILY levothyroxi Yes levothyrox Univers ne 175 mcg 8-19 ine 175 ity of tablet 22:28: mcg tablet [place] 42 TAKE 1 Medical TABLET BY Branch MOUTH EVERY MORNING gabapentin Yes gabapentin U nivers 300 mg 8-19 300 mg ity of capsule 22:28: capsule [place] [address] TAKE 1 Medical CAPSULE BY Branch MOUTH AT BEDTIME DULoxetine Yes duloxetine U nivers 60 mg 8-19 60 mg ity of capsule 22:28: capsule,[place] 42 layed Medical release Branch TAKE 1 CAPSULE BY MOUTH TWICE DAILY divalproex Yes divalproex U nivers 500 mg EC 8-19 500 mg ity of tablet 22:28: tablet,del [place] 42 ayed Medical release [place] TAKE 1 TABLET BY MOUTH DAILY amLODIPine Yes amlodipine U nivers 5 mg tablet 8-19 5 mg ity of 22:28: tablet [place] 42 TAKE 1 Medical TABLET BY Branch [...] ity o f mg tablet 22:28: at [place] 42 bedtime. Medical Branch acetaminoph Yes acetaminop Univers en-codeine - hen 300 ity of 300-30 mg 22:28: mg-codeine [place] tablet 42 30 mg Medical tablet Branch TAKE 1 TABLET BY MOUTH TWICE DAILY NEEDED traZODone Yes trazodone Uni vers 150 mg 8 150 mg ity of tablet 22:28: tablet [place] 42 TAKE 1 TO Medical 2 TABLETS Branch BY MOUTH EVERY NIGHT AT BEDTIME NEEDED FOR INSOMNIA traMADoL 50 Yes tramadol Un yan mg tablet 03-24 50 mg ity of 22:28: tablet [place] 42 TAKE 1 Medical TABLET BY Branch MOUTH THREE TIMES DAILY sucralfate Yes sucralfate U nivers 1 gram - 1 gram ity of tablet 22:28: tablet [place] 42 TAKE 1 Medical TABLET BY Branch MOUTH BEFORE MEALS AND AT BEDTIME spironolact Yes spironolac Univers one 25 mg - tone 25 mg ity of tablet 22:28: tablet [place] 42 TAKE 1 Medical TABLET BY Branch MOUTH EVERY DAY SITagliptin Yes Januvia Uni vers (JANUVIA) 03-24 100 mg ity of 100 mg 22:28: tablet [place] tablet 42 TAKE 1 Medical TABLET BY Branch MOUTH EVERY DAY FOR 16 DAYS QUEtiapine Yes quetiapine U nivers 300 mg 03-24 300 mg ity of tablet 22:28: tablet [place] 42 TAKE 1 Medical TABLET BY Branch MOUTH EVERY EVENING 1 TO 1.5 HOUR PRIOR TO BEDTIME WITH 300 CALORIES SNACK QUEtiapine Yes quetiapine U nivers 200 mg 03-24 200 mg ity of tablet 22:28: tablet [place] 42 TAKE 1 Medical TABLET BY Branch MOUTH TWICE DAILY pantoprazol Yes pantoprazo Univers e 40 mg EC 03-24 le 40 mg ity o f tablet 22:28: tablet,del [place] 42 ayed Medical release Branch TAKE 1 TABLET BY MOUTH EVERY DAY montelukast Yes montelukas Univers 10 mg 8- t 10 mg ity of tablet 22:28: tablet [place] 42 TAKE 1 Medical TABLET BY Branch MOUTH EVERY DAY IN THE EVENING methocarbam Yes methocarba Univers oL 500 mg - mol 500 mg ity of tablet 22:28: tablet [place] 42 TAKE 1 Medical TABLET BY Branch MOUTH THREE TIMES DAILY FOR 5 DAYS meloxicam Yes meloxicam Uni vers 15 mg 8-19 15 mg ity of tablet 22:28: tablet [place] 42 TAKE 1 Medical TABLET BY Branch MOUTH EVERY DAY losartan 50 Yes losartan Un yan mg tablet 8-19 50 mg ity of 22:28: tablet [place] 42 TAKE 1 Medical TABLET BY Branch MOUTH TWICE DAILY levothyroxi Yes levothyrox Univers ne 175 mcg 8- ine 175 ity of tablet 22:28: mcg tablet [place] 42 TAKE 1 Medical TABLET BY Branch MOUTH EVERY MORNING gabapentin Yes gabapentin U nivers 300 mg 8- 300 mg ity of capsule 22:28: capsule [place] [address] TAKE 1 Medical CAPSULE BY Branch MOUTH AT BEDTIME DULoxetine Yes duloxetine U nivers 60 mg 8-19 60 mg ity of capsule 22:28: capsule,[place] 42 layed Medical release Branch TAKE 1 CAPSULE BY MOUTH TWICE DAILY divalproex Yes divalproex U nivers 500 mg EC 8-19 500 mg ity of tablet 22:28: tablet,del [place] 42 ayed Medical release [place] TAKE 1 TABLET BY MOUTH DAILY amLODIPine Yes amlodipine U nivers 5 mg tablet 8- 5 mg ity of 22:28: tablet [place] [address] TAKE 1 Medical TABLET BY Branch MOUTH [...] ity o f mg tablet 22:28: at [place] [address] bedtime. Medical Branch acetaminoph Yes acetaminop Univers en-codeine 8-19 hen 300 ity of 300-30 mg 22:28: mg-codeine [place] tablet 42 30 mg Medical tablet Branch TAKE 1 TABLET BY MOUTH TWICE DAILY NEEDED traZODone Yes trazodone Uni vers 150 mg 8 150 mg ity of tablet 22:28: tablet [place] 42 TAKE 1 TO Medical 2 TABLETS Branch BY MOUTH EVERY NIGHT AT BEDTIME NEEDED FOR INSOMNIA traMADoL 50 Yes tramadol Un yan mg tablet 03-24 50 mg ity of 22:28: tablet [place] 42 TAKE 1 Medical TABLET BY Branch MOUTH THREE TIMES DAILY sucralfate Yes sucralfate U nivers 1 gram - 1 gram ity of tablet 22:28: tablet [place] 42 TAKE 1 Medical TABLET BY Branch MOUTH BEFORE MEALS AND AT BEDTIME spironolact Yes spironolac Univers one 25 mg - tone 25 mg ity of tablet 22:28: tablet [place] 42 TAKE 1 Medical TABLET BY Branch MOUTH EVERY DAY SITagliptin Yes Januvia Uni vers (JANUVIA) 03-24 100 mg ity of 100 mg 22:28: tablet [place] tablet 42 TAKE 1 Medical TABLET BY Branch MOUTH EVERY DAY FOR 16 DAYS QUEtiapine Yes quetiapine U nivers 300 mg 03-24 300 mg ity of tablet 22:28: tablet [place] 42 TAKE 1 Medical TABLET BY Branch MOUTH EVERY EVENING 1 TO 1.5 HOUR PRIOR TO BEDTIME WITH 300 CALORIES SNACK QUEtiapine Yes quetiapine U nivers 200 mg 03-24 200 mg ity of tablet 22:28: tablet [place] 42 TAKE 1 Medical TABLET BY Branch MOUTH TWICE DAILY pantoprazol Yes pantoprazo Univers e 40 mg EC 03-24 le 40 mg ity o f tablet 22:28: tablet,del [place] 42 ayed Medical release Branch TAKE 1 TABLET BY MOUTH EVERY DAY montelukast Yes montelukas Univers 10 mg - t 10 mg ity of tablet 22:28: tablet [place] 42 TAKE 1 Medical TABLET BY Branch MOUTH EVERY DAY IN THE EVENING methocarbam Yes methocarba Univers oL 500 mg 03-24 mol 500 mg ity of tablet 22:28: tablet [place] 42 TAKE 1 Medical TABLET BY Branch MOUTH THREE TIMES DAILY FOR 5 DAYS meloxicam Yes meloxicam Uni vers 15 mg 8- 15 mg ity of tablet 22:28: tablet [place] 42 TAKE 1 Medical TABLET BY Branch [...] 300 mg ity of capsule 22:28: capsule [place] 42 TAKE 1 Medical CAPSULE BY Branch [...] ity o f mg tablet 22:28: at [place] [address] bedtime. Medical Branch acetaminoph Yes acetaminop Univers [...] 8 50 mg ity of 22:28: tablet [place] 42 TAKE 1 Medical TABLET BY Branch MOUTH THREE TIMES DAILY sucralfate Yes sucralfate U nivers 1 gram 03-24 1 gram ity of tablet 22:28: tablet [place] 42 TAKE 1 Medical TABLET BY Branch MOUTH BEFORE MEALS AND AT BEDTIME spironolact Yes spironolac Univers one 25 mg - tone 25 mg ity of tablet 22:28: tablet [place] 42 TAKE 1 Medical TABLET BY Branch MOUTH EVERY DAY SITagliptin Yes Januvia Uni vers (JANUVIA) 03-24 100 mg ity of 100 mg 22:28: tablet [place] tablet 42 TAKE 1 Medical TABLET BY Branch MOUTH EVERY DAY FOR 16 DAYS QUEtiapine Yes quetiapine U nivers 300 mg 03-24 300 mg ity of tablet 22:28: tablet [place] 42 TAKE 1 Medical TABLET BY Branch MOUTH EVERY EVENING 1 TO 1.5 HOUR PRIOR TO BEDTIME WITH 300 CALORIES SNACK QUEtiapine Yes quetiapine U nivers 200 mg 03-24 200 mg ity of tablet 22:28: tablet [place] 42 TAKE 1 Medical TABLET BY Branch MOUTH TWICE DAILY pantoprazol Yes pantoprazo Univers e 40 mg EC 03-24 le 40 mg ity o f tablet 22:28: tablet,del [place] 42 ayed Medical release Branch TAKE 1 TABLET BY MOUTH EVERY DAY montelukast Yes montelukas Univers 10 mg 03-24 t 10 mg ity of tablet 22:28: tablet [place] 42 TAKE 1 Medical TABLET BY Branch MOUTH EVERY DAY IN THE EVENING methocarbam Yes methocarba Univers oL 500 mg 03-24 mol 500 mg ity of tablet 22:28: tablet [place] 42 TAKE 1 Medical TABLET BY Branch MOUTH THREE TIMES DAILY FOR 5 DAYS meloxicam Yes meloxicam Uni vers 15 mg - 15 mg ity of tablet 22:28: tablet [place] 42 TAKE 1 Medical TABLET BY Branch MOUTH EVERY DAY losartan 50 Yes losartan Un yan mg tablet 03-24 50 mg ity of 22:28: tablet [place] 42 TAKE 1 Medical TABLET BY Branch MOUTH TWICE DAILY levothyroxi Yes levothyrox Univers ne 175 mcg 03-24 ine 175 ity of tablet 22:28: mcg tablet [place] 42 TAKE 1 Medical TABLET BY Branch MOUTH EVERY MORNING gabapentin Yes gabapentin U nivers 300 mg 8- 300 mg ity of capsule 22:28: capsule [place] 42 TAKE 1 Medical CAPSULE BY Branch MOUTH AT BEDTIME DULoxetine Yes duloxetine U nivers 60 mg 8 60 mg ity of capsule 22:28: capsule,[place] 42 layed Medical release Branch TAKE 1 CAPSULE BY MOUTH TWICE DAILY divalproex Yes divalproex U nivers 500 mg EC 8 500 mg ity of tablet 22:28: tablet,del [place] 42 ayed Medical release [place] TAKE 1 TABLET BY MOUTH DAILY amLODIPine Yes amlodipine U nivers 5 mg tablet 03-24 5 mg ity of 22:28: tablet [place] 42 TAKE 1 Medical TABLET BY Branch [...] ity o f (GOLYTELY) 18:32: - SEE [place] [phone] [id number] INSTRUCTIO Me dical .74 -5.86 NS, Branch gram Starting solution on Analy 4,000 mL 03/23/22 at 1332, Until Discontinu ed, Routine, Bowel Prep, colonoscop y ondansetron 2021-0 Yes 4mg 4 mg, Slow Univers (ZOFRAN 8-18 IV Push, ity of (PF)) 18:32: Q6HPRN, [place] injection 4 54 Starting Medi gregg mg on Analy Branch 03/23/22 at 1332, Until Discontinu ed, Routine, Nausea and Vomiting (N/V) peg-electro 2021-0 Yes 4000mL 4,000 mL, Univers lyte soln 8-18 Oral, PRN ity o f (GOLYTELY) 18:32: - SEE [place] [phone] [id number] INSTRUCTIO Me dical .74 -5.86 NS, Branch gram Starting solution on Analy 4,000 mL 03/23/22 at 1332, Until Discontinu ed, Routine, Bowel Prep, colonoscop y ondansetron 2021-0 Yes 4mg 4 mg, Slow Univers (ZOFRAN 8-18 IV Push, ity of (PF)) 18:32: Q6HPRN, [place] injection 4 54 Starting Medi gregg mg on Analy Branch 03/23/22 at 1332, Until Discontinu ed, Routine, Nausea and Vomiting (N/V) peg-electro 2-0 2- No 4000mL 4,000 mL, Univers lyte soln 8-18 08-20 Oral, PRN ity of (GOLYTELY) 18:32: 05:28 - SEE [place] [id number] :43 INSTRUCTIO Me dical .74 -5.86 NS, Branch gram Starting solution on Analy 4,000 mL 03/23/22 at 1332, Until 03/25/22 at 0028, Routine, Bowel Prep, colonoscop y ondansetron 2021- No 4mg 4 mg, Slow Univers (ZOFRAN 03-23 IV Push, ity of (PF)) 18:32: 05:28 [...] suspension 52 Starting Medic al (COMPOUNDED on Analy Branch ) 03/23/22 at 1135, Until Discontinu ed, Routine, stomach pain maalox-lido 2021-0 Yes 5mL 5 mL, Unive rs usha 2% 03-23 Oral, ity of viscous 1:1 16:35: TIDPRN, [place] suspension 52 Starting Medic al (COMPOUNDED on [facility] ) 03/23/22 at 1135, Until Discontinu ed, Routine, stomach pain maalox-lido 2021- No 5mL 5 mL, Univ ers usha 2% 03-23 08 Oral, ity of viscous 1:1 16:35: 05:28 TIDPRN, [place] suspension 52 :43 Starting Medic al (COMPOUNDED on [facility] ) 03/23/22 at 1135, Until 03/25/22 at 0028, Routine, stomach pain DULoxetine Yes 60mg 60 mg, Unive rs (CYMBALTA) 03-23 Oral, ity of capsule 60 14:00: DAILY, [place] mg 00 First dose Medical on [facility] 03/23/22 at 0900, Until Discontinu ed, Routine DULoxetine Yes 60mg 60 mg, Unive rs (CYMBALTA) 03-23 Oral, ity of capsule 60 14:00: DAILY, [place] mg 00 First dose Medical on [facility] 03/23/22 at 0900, Until Discontinu ed, Routine DULoxetine 2021- No 60mg 60 mg, Univ ers (CYMBALTA) 03-23 Oral, ity of capsule 60 14:00: 05:28 DAILY, [place] mg 00 :43 First dose Medical on [facility] 03/23/22 at 0900, Until Discontinu ed, Routine levothyroxi Yes 175ug 175 mcg, U nivers ne 03-23 Oral, ity of (SYNTHROID) 11:00: QAM-0600, [place] tablet 175 00 First dose Med ical mcg on [facility] 03/23/22 at 0600, Until Discontinu ed, Routine levothyroxi Yes 175ug 175 mcg, U nivers ne 03-23 Oral, ity of (SYNTHROID) 11:00: QAM-0600, [place] tablet 175 00 First dose Med ical mcg on [facility] 03/23/22 at 0600, Until Discontinu ed, Routine levothyroxi 2021- No 175ug 175 mcg, Univers ne 03-23 08-20 Oral, ity of (SYNTHROID) 11:00: 05:28 QAM-0600, [place] tablet 175 00 :43 First dose Med ical mcg on [facility] Branch 03/23/22 at 0600, Until Discontinu ed, Routine HYDROcodone 2021- No 1{tbl} 1 tablet, Univers -acetaminop 03-23 Oral, ity of hen (NORCO 08:30: 07:29 ONCE, 1 [place] 5) 5-325 mg 00 :00 dose, On Medi gregg tablet u Branch tablet 03/23/22 at 0330, Routine HYDROcodone 2021- No 1{tbl} 1 tablet, Univers -acetaminop 03-23 Oral, ity of hen (NORCO 08:30: 07:29 ONCE, 1 [place] 5) 5-325 mg 00 :00 dose, On Medi gregg tablet u Branch tablet 03/23/22 at 0330, Routine HYDROcodone 2021- No 1{tbl} 1 tablet, Univers -acetaminop 03-23 Oral, ity of hen (NORCO 08:30: 07:29 ONCE, 1 [place] 5) 5-325 mg 00 :00 dose, On Medi gregg tablet u Branch tablet 03/23/22 at 0330, Routine simvastatin 2021-0 Yes 20mg 20 mg, Univ ers (ZOCOR) 8-18 Oral, QHS, ity of tablet 20 02:00: First dose [place] mg 00 on [facility] 03/22/22 at Branch 2100, Until Discontinu ed, Routine gabapentin 2021-0 Yes 300mg 300 mg, Uni vers (NEURONTIN) 8-18 Oral, QHS, it y of capsule 300 02:00: First dose [place] mg 00 on [facility] 03/22/22 at Branch 2100, Until Discontinu ed, Routine simvastatin 2021-0 Yes 20mg 20 mg, Univ ers (ZOCOR) 8-18 Oral, QHS, ity of tablet 20 02:00: First dose [place] mg 00 on Sun [facility] 03/22/22 at Branch 2100, Until Discontinu ed, Routine gabapentin 2021-0 Yes 300mg 300 mg, Uni vers (NEURONTIN) 8-18 Oral, QHS, it y of capsule 300 02:00: First dose [place] mg 00 on Sun [facility] 03/22/22 at [place] 2099, Until Discontinu ed, Routine simvastatin 2021- No 20mg 20 mg, Uni vers (ZOCOR) 03-23 Oral, QHS, ity o f tablet 20 02:00: 05:28 First dose [place] mg 00 :43 on Sun [facility] 03/22/22 at [place] 2099, Until Discontinu ed, Routine gabapentin 2021- No 300mg 300 mg, Un yan (NEURONTIN) 03-23 Oral, QHS, i ty of capsule 300 02:00: 05:28 First dose [place] mg 00 :43 on Sun [facility] 03/22/22 at [place] 2099, Until Discontinu ed, Routine QUEtiapine Yes 200mg 200 mg, Uni vers (SEROQUEL) 03-23 Oral, BID, ity of tablet 200 01:00: First dose [place] mg 00 on [place] [facility] 03/22/22 at [place] 1999, Until Discontinu ed, Routine QUEtiapine Yes 200mg 200 mg, Uni vers (SEROQUEL) 03-23 Oral, BID, ity of tablet 200 01:00: First dose [place] mg 00 on [place] [facility] 03/22/22 at [place] 1999, Until Discontinu ed, Routine QUEtiapine 2021- No 200mg 200 mg, Un yan (SEROQUEL) 03-23 Oral, BID, it y of tablet 200 01:00: 05:28 First dose [place] mg 00 :43 on Sun [facility] 03/22/22 at [place] 1999, Until Discontinu ed, Routine acetaminoph 0 Yes 650mg 650 mg, [place] en 03-22 Oral, ity of (TYLENOL) 23:39: Q6HPRN, [place] tablet 650 24 Starting Medic al mg on Sun [place] 03/22/22 at 1839, Until Discontinu ed, Routine, Pain (scale 1-3) acetaminoph 0 Yes 650mg 650 mg, Un [place] en 03-22 Oral, ity of (TYLENOL) 23:39: Q6HPRN, [place] tablet 650 24 Starting Medic al mg on Sun [place] 03/22/22 at 1839, Until Discontinu ed, Routine, Pain (scale 1-3) acetaminoph 0 2021- No 650mg 650 mg, U nivers en 03-22 Oral, ity of (TYLENOL) 23:39: 05:28 Q6HPRN, [place] tablet 650 24 :43 Starting Medic al mg on Sun Branch 03/22/22 at 1839, Until 03/25/22 at 0028, Routine, Pain (scale 1-3) traMADoL Yes 50mg 50 mg, Univers (ULTRAM) 03-22 Oral, ity of tablet 50 23:12: Q6HPRN, [place] mg 10 Starting Medical on Sun Branch 03/22/22 at 1812, Until Discontinu ed, Routine, Pain (scale 7-10) traMADoL Yes 50mg 50 mg, Univers (ULTRAM) 03-22 Oral, ity of tablet 50 23:12: Q6HPRN, [place] mg 10 Starting Medical on Sun [place] 03/22/22 at 1812, Until Discontinu ed, Routine, Pain (scale 7-10) traMADoL 0 2021- No 50mg 50 mg, Univer s (ULTRAM) 03-22 Oral, ity of tablet 50 23:12: 05:28 Q6HPRN, [place] mg 10 :43 Starting Medical on Sun [facility] 03/22/22 at 1812, Until 03/25/22 at 0028, Routine, Pain (scale 7-10) Sliding 0 Yes Subcutaneo Univ ers Scale 8-17 us, TID ity of Insulin - 22:00: MEALS+HS, [place] Lispro 00 First dose Medical (HumaLOG) + on Sun [facility] 03/22/22 at Testing 1700, Until Discontinu ed, Routine Sliding 0 Yes Subcutaneo Univ ers Scale 8-17 us, TID ity of Insulin - 22:00: MEALS+HS, [place] Lispro 00 First dose Medical (HumaLOG) + on Sun [facility] 03/22/22 at Testing 1700, Until Discontinu ed, Routine Sliding 2021-0 2021- No Subcutaneo Uni vers Scale 8-17 08-20 us, TID ity of Insulin - [...] to swallow or has mental changes. glucagon 0 Yes 1mg 1 mg, Univers (GLUCAGEN 03-22 Intramuscu ity of DIAGNOSTIC 20:58: [place], [place]N, [place] KIT) 52 Starting Medical injection 1 on Wed Branch mg 03/22/22 at 1558, Until Discontinu ed, PRINCE, Blood Glucose < or = 70 mg/dL and patient is unable to swallow or has mental changes. glucagon 0 2021- No 1mg 1 mg, Univers (GLUCAGEN 03-22 08-20 Intramuscu ity of DIAGNOSTIC 20:58: 05:28 [place], PRN, [place] KIT) 52 :43 Starting Medical injection 1 on Sun Branch mg 03/22/22 at 1558, Until 03/25/22 at 0028, PRINCE, Blood Glucose < or = 70 mg/dL and patient is unable to swallow or has mental changes. dextrose 50 0 Yes 25mL 25 mL, Univ ers % [...] or has mental status changes. dextrose 50 2021-2021- No 25mL 25 mL, Uni vers % [...] Starting infusion on Sun03/22/22 at 1345 pantoprazol 2021- No 8mg/h 8 mg/hr U nivers [...] [place] mg 31 :18 Starting Medical on Wed Branch 03/22/22 at 1332, Until 03/22/22 at 1536, Routine, Pain (scale 7-10) morpHINE [...] at 0028, Routine, line maintenanc e lidocaine 5mL 5 mL, Univer s 1% (PF) 03-22 Subcutaneo ity o f (XYLOCAINE) 18:06: 05:28 us, PRN, [place] injection 5 57 :43 Starting Medi gregg mL on Sun Branch 03/22/22 at 1306, Until 03/25/22 at 0028, Routine, Local anesthesia simvastatin Yes 20mg Take 20 mg Univers (ZOCOR) 20 03-22 by mouth ity o f mg tablet 15:57: at [place] [address] bedtime. Medical Branch QUEtiapine Yes quetiapine U nivers 200 mg 03-22 200 mg ity of tablet 15:57: tablet [place] [address] TAKE 1 Medical TABLET BY Branch MOUTH TWICE DAILY levothyroxi Yes levothyrox Univers ne 175 mcg 03-22 ine 175 ity of tablet 15:57: mcg tablet [place] [address] TAKE 1 Medical TABLET BY Branch MOUTH EVERY MORNING gabapentin Yes gabapentin U nivers 300 mg 03-22 300 mg ity of capsule 15:57: capsule [place] 46 TAKE 1 Medical CAPSULE BY Branch MOUTH AT BEDTIME DULoxetine Yes duloxetine U nivers 60 mg 03-22 60 mg ity of capsule 15:57: capsule,[place] 46 layed Medical release Branch TAKE [...] 150 mg ity of tablet 10:34: tablet [place] 54 TAKE 1 TO Medical 2 TABLETS Branch BY MOUTH EVERY NIGHT AT BEDTIME NEEDED FOR INSOMNIA traMADoL 50 Yes tramadol Un yan mg tablet 8-17 50 mg ity of 10:34: tablet [place] 54 TAKE 1 Medical TABLET BY Branch MOUTH THREE TIMES DAILY sucralfate Yes sucralfate U nivers 1 gram 03-22 1 gram ity of tablet 10:34: tablet [place] 54 TAKE 1 Medical TABLET BY Branch MOUTH BEFORE MEALS AND AT BEDTIME spironolact Yes spironolac Univers one 25 mg 03-22 tone 25 mg ity of tablet 10:34: tablet [place] 54 TAKE 1 Medical TABLET BY Branch MOUTH EVERY DAY SITagliptin Yes Januvia Uni vers (JANUVIA) 03-22 100 mg ity of 100 mg 10:34: tablet [place] tablet 54 TAKE 1 Medical TABLET BY Branch MOUTH EVERY DAY FOR 16 DAYS QUEtiapine Yes quetiapine U nivers 300 mg 03-22 300 mg ity of tablet 10:34: tablet [place] 54 TAKE 1 Medical TABLET BY Branch MOUTH EVERY EVENING 1 TO 1.5 HOUR PRIOR TO BEDTIME WITH 300 CALORIES SNACK pantoprazol Yes pantoprazo Univers e 40 mg EC 03-22 le 40 mg ity o f tablet 10:34: tablet[address] Medical [facility] TAKE 1 TABLET BY MOUTH EVERY DAY montelukast Yes montelukas Univers 10 mg 03-22 t 10 mg ity of tablet 10:34: tablet [place] 54 TAKE 1 Medical TABLET BY Branch MOUTH EVERY DAY IN THE EVENING methocarbam Yes methocarba Univers oL 500 mg 03-22 mol 500 mg ity of tablet 10:34: tablet [place] 54 TAKE 1 Medical TABLET BY Branch MOUTH THREE TIMES DAILY FOR 5 DAYS meloxicam Yes meloxicam Uni vers 15 mg 03-22 15 mg ity of tablet 10:34: tablet [place] 54 TAKE 1 Medical TABLET BY Branch MOUTH EVERY DAY losartan 50 Yes losartan Un yan mg tablet 03-22 50 mg ity of 10:34: tablet [place] 54 TAKE 1 Medical TABLET BY Branch MOUTH TWICE DAILY divalproex Yes divalproex U nivers 500 mg EC 8 500 mg ity of tablet 10:34: tablet,[address] [facility] TAKE 1 TABLET BY MOUTH DAILY amLODIPine Yes amlodipine U nivers 5 mg tablet 03-22 5 mg ity of 10:34: tablet [place] 54 TAKE 1 Medical TABLET BY Branch [...] ity o f mg tablet 17:58: at [place] [address] bedtime. Medical Branch acetaminoph Yes acetaminop Univers en-codeine 6-17 hen 300 ity of 300-30 mg 17:58: mg-codeine [place] tablet 36 30 mg Medical tablet Branch TAKE 1 TABLET BY MOUTH TWICE DAILY NEEDED traZODone Yes trazodone Uni vers 150 mg 6-17 150 mg ity of tablet 17:58: tablet [place] 36 TAKE 1 TO Medical 2 TABLETS Branch BY MOUTH EVERY NIGHT AT BEDTIME NEEDED FOR INSOMNIA traMADoL 50 Yes tramadol Un [place] mg tablet -17 50 mg ity of 17:58: tablet [place] 36 TAKE 1 Medical TABLET BY Branch MOUTH THREE TIMES DAILY sucralfate Yes sucralfate U nivers 1 gram 6-17 1 gram ity of tablet 17:58: tablet [place] 36 TAKE 1 Medical TABLET BY Branch MOUTH BEFORE MEALS AND AT BEDTIME spironolact Yes spironolac Univers one 25 mg 6-17 tone 25 mg ity of tablet 17:58: tablet [place] 36 TAKE 1 Medical TABLET BY Branch MOUTH EVERY DAY SITagliptin Yes Januvia Uni vers (JANUVIA) 6-17 100 mg ity of 100 mg 17:58: tablet [place] tablet 36 TAKE 1 Medical TABLET BY Branch MOUTH EVERY DAY FOR 16 DAYS QUEtiapine Yes quetiapine U nivers 300 mg 6-17 300 mg ity of tablet 17:58: tablet [place] 36 TAKE 1 Medical TABLET BY Branch MOUTH EVERY EVENING 1 TO 1.5 HOUR PRIOR TO BEDTIME WITH 300 CALORIES SNACK QUEtiapine Yes quetiapine U nivers 200 mg 01-20 200 mg ity of tablet 17:58: tablet [place] [address] TAKE 1 Medical TABLET BY Branch MOUTH TWICE DAILY pantoprazol Yes pantoprazo Univers e 40 mg EC 01-20 le 40 mg ity o f tablet 17:58: tablet,[facility] [address] [facility] Medical [facility] TAKE 1 TABLET BY MOUTH EVERY DAY methocarbam Yes methocarba Univers oL 500 mg 01-20 mol 500 mg ity of tablet 17:58: tablet [place] [address] TAKE 1 Medical TABLET BY Branch MOUTH THREE TIMES DAILY FOR 5 DAYS meloxicam Yes meloxicam Uni vers 15 mg 01-20 15 mg ity of tablet 17:58: tablet [place] [address] TAKE 1 Medical TABLET BY Branch MOUTH EVERY DAY losartan 50 Yes losartan Un yan mg tablet 01-20 50 mg ity of 17:58: tablet [place] [address] TAKE 1 Medical TABLET BY Branch MOUTH TWICE DAILY levothyroxi Yes levothyrox Univers ne 175 mcg 01-20 ine 175 ity of tablet 17:58: mcg tablet [place] [address] TAKE 1 Medical TABLET BY Branch MOUTH EVERY MORNING gabapentin Yes gabapentin U nivers 300 mg 01-20 300 mg ity of capsule 17:58: capsule [place] [address] TAKE 1 Medical CAPSULE BY Branch MOUTH AT BEDTIME DULoxetine Yes duloxetine U nivers 60 mg 01-20 60 mg ity of capsule 17:58: [place] [address] [facility] Medical [facility] TAKE 1 CAPSULE BY MOUTH TWICE DAILY divalproex Yes divalproex U nivers 500 mg EC 01-20 500 mg ity of tablet 17:58: tablet,[facility] 36 [facility] Medical release [place] TAKE 1 TABLET BY MOUTH DAILY amLODIPine Yes amlodipine U nivers 5 mg tablet 01-20 5 mg ity of 17:58: tablet [place] [address] TAKE 1 Medical TABLET BY Branch MOUTH TWICE DAILY acetaminoph Yes 1{tbl} Take 1 Un y[place] en-codeine 17 tablet by ity of (TYLENOL-CO 17:58: mouth 3 [place] DEINE #4) 36 (three) Medical 300-60 mg times Branch tablet daily. montelukast Yes montelukas Univers 10 mg 6-08 t 10 mg ity of tablet 09:37: tablet [place] 16 TAKE 1 Medical TABLET BY Branch [...] 1{packe QD Polyethyle e Glycol e Glycol 11-08- t_mixed ne Glycol 3350 17 GM 3350 17 GM 00:00: 00:00 _with_8 3350 17 GM 00 :00 _ounces _of_flu id} Polyethylen Polyethylen 2021- No 1{packe QD Polyethyle e Glycol e Glycol -12 08-05 t_mixed ne Glycol 3350 17 GM 3350 17 GM 00:00: 00:00 _with_8 3350 17 GM 00 :00 _ounces _of_flu id} Polyethylen Polyethylen 2021- No 1{packe QD Polyethyle e Glycol e Glycol - 05-05 t_mixed ne Glycol 3350 17 GM 3350 17 GM 00:00: 00:00 _with_8 3350 17 GM 00 :00 _ounces _of_flu id} Polyethylen Polyethylen 2021- No 1{packe QD Polyethyle e Glycol e Glycol - 05- t_mixed ne Glycol 3350 17 GM 3350 17 GM 00:00: 00:00 _with_8 3350 17 GM 00 :00 _ounces _of_flu id} Fluconazole Fluconazole 2021- No 1{table Fluconazol 150 MG 150 MG 1-18 01-21 t} e 150 MG 00:00: 00:00 00 :00 Fluconazole Fluconazole 2021- No 1{table Fluconazol 150 MG 150 MG [...] mg 00:00: 00:00 00 :00 Amoxicillin Amoxicillin 0 2021- No 1{capsu TID Amoxicilli 500 mg 500 mg 08-16 le} n 500 mg 00:00: 00:00 00 :00 lancets lancets 2020- No QD lancets 1-17 00:00: 00 lancets lancets 2020-08 No QD lancets 1-17 00:00: 00 lancets [...] 2020-1 No QD lancets 1-17 00:00: 00 Strips Strips 2020-08- No QD Strips 1-17 05-16 00:00: 00:00 00 :00 Strips Strips 2021-1 2022- No QD Strips 1-17 05-16 00:00: [...] 00:00: 00:00 00 :00 Strips Strips 2020-1 2- No QD Strips 1-17 05-16 00:00: 00:00 00 :00 Strips Strips 2020-2- No QD Strips 1-17 05-16 00:00: 00:00 00 :00 Strips Strips 2020-1 2022- No QD Strips 1-17 05-16 00:00: 00:00 00 :00 Strips Strips 2020-1 2- No QD Strips 1-17 05-16 00:00: 00:00 00 :00 Strips Strips 2020-1 2- No QD Strips 1-17 05-16 00:00: 00:00 00 :00 Strips Strips 2020-2- No QD Strips 1-17 05-16 00:00: 00:00 00 :00 Strips Strips 2020-1 2022- No QD Strips 1-17 05-16 00:00: 00:00 00 :00 Strips Strips 2020-1 2022- No QD Strips 1-17 05-16 00:00: 00:00 00 :00 Strips Strips 2020- 2022- No QD Strips 1-17 05-16 00:00: 00:00 00 :00 Glucometer Glucometer 2020-2021- No Glucometer n/s n/s -22 09-15 n/s 00:00: 00:00 00 :00 Glucometer Glucometer 2020-2- No Glucometer n/s n/s -17 -15 n/s 00:00: 00:00 00 :00 Glucometer Glucometer 2020-2021- No Glucometer n/s n/s 1-17 15 n/s 00:00: 00:00 00 :00 Glucometer Glucometer 2020-2021- No Glucometer n/s n/s 1-17 -15 n/s 00:00: 00:00 00 :00 Glucometer Glucometer 2020-2021- No Glucometer n/s n/s 1-17 15 n/s 00:00: 00:00 00 :00 Glucometer Glucometer 2020-2021- No Glucometer n/s n/s 1-17 15 n/s 00:00: 00:00 00 :00 Glucometer Glucometer 2020-2021- No Glucometer n/s n/s 1-17 15 n/s 00:00: 00:00 00 :00 Glucometer Glucometer 2020-2021- No Glucometer n/s n/s 1-17 15 n/s 00:00: 00:00 00 :00 Glucometer Glucometer 2020-2021- No Glucometer n/s n/s 1-17 15 n/s 00:00: 00:00 00 :00 Glucometer Glucometer 2020-2021- No Glucometer n/s n/s 1-17 15 n/s 00:00: 00:00 00 :00 Glucometer Glucometer 2020-2021- No Glucometer n/s n/s 1-17 15 n/s 00:00: 00:00 00 :00 Glucometer Glucometer 2020-2021- No Glucometer n/s n/s 1-17 -15 n/s 00:00: 00:00 00 :00 Glucometer Glucometer 2020-2021- No Glucometer n/s n/s 1-17 15 n/s 00:00: 00:00 00 :00 Montelukast Montelukast 2020-0 No 1{table Montelukas Sodium 10 Sodium 10 9-15 t} t Sodium MG MG 00:00: 10 MG 00 dicyclomine 2020-0 Yes [id number] 10mg Take 1 Univers 10 mg 6-25 capsule by ity of capsule 00:00: mouth 3 (three) Medical times Branch daily as needed for Abdominal pain. loperamide 2020-0 Yes [id number] 2mg Take 1 U nivers 2 mg 6-25 capsule by ity of capsule 00:00: mouth [place] 00 every 4 Medical (four) Branch hours as needed for Diarrhea. dicyclomine 2020-0 Yes [id number] 10mg Take 1 Univers 10 mg 6-25 capsule by ity of capsule 00:00: mouth 3 00 (three) Medical times Branch daily as needed for Abdominal pain. loperamide 2020-0 Yes [id number] 2mg Take 1 U nivers 2 mg 6-25 capsule by ity of capsule 00:00: mouth [place] 00 every 4 Medical (four) Branch hours as needed for Diarrhea. dicyclomine 2020-0 Yes [id number] 10mg Take 1 Univers 10 mg 6-25 capsule by ity of capsule 00:00: mouth (three) Medical times Branch daily as needed for Abdominal pain. loperamide 2020-0 Yes [id number] 2mg Take 1 U nivers 2 mg 6-25 capsule by ity of capsule 00:00: mouth [place] 00 every 4 Medical (four) Branch hours as needed for Diarrhea. dicyclomine 2020-0 Yes [id number] 10mg Take 1 Univers 10 mg 6-25 capsule by ity of capsule 00:00: mouth 3 (three) Medical times Branch daily as needed for Abdominal pain. loperamide 2020-0 Yes [id number] 2mg Take 1 U nivers 2 mg 6-25 capsule by ity of capsule 00:00: mouth [place] 00 every 4 Medical (four) Branch hours as needed for Diarrhea. dicyclomine 2020-0 Yes [id number] 10mg Take 1 Univers 10 mg 6-25 capsule by ity of capsule 00:00: mouth 3 (three) Medical times Branch daily as needed for Abdominal pain. loperamide 2020-0 Yes [id number] 2mg Take 1 U nivers 2 mg 6-25 capsule by ity of capsule 00:00: mouth [place] 00 every 4 Medical (four) Branch hours as needed for Diarrhea. dicyclomine 2020-0 Yes [id number] 10mg Take 1 Univers 10 mg 6-25 capsule by ity of capsule 00:00: mouth 3 (three) Medical times Branch daily as needed for Abdominal pain. loperamide 2020-0 Yes [id number] 2mg Take 1 U nivers 2 mg 6-25 capsule by ity of capsule 00:00: mouth [place] 00 every 4 Medical (four) Branch hours as needed for Diarrhea. dicyclomine 2020-0 Yes [id number] 10mg Take 1 Univers 10 mg 6-25 capsule by ity of capsule 00:00: mouth 3 (three) Medical times Branch daily as needed for Abdominal pain. loperamide 2020-0 Yes [id number] 2mg Take 1 U nivers 2 mg 6-25 capsule by ity of capsule 00:00: mouth 00 every 4 Medical (four) Branch hours as needed for Diarrhea. dicyclomine 2020-0 Yes [id number] 10mg Take 1 Univers 10 mg 6-25 capsule by ity of capsule 00:00: mouth (three) Medical times Branch daily as needed for Abdominal pain. loperamide 0 Yes [id number] 2mg Take 1 U nivers 2 mg 6-25 capsule by ity of capsule 00:00: mouth 00 every 4 Medical (four) Branch hours as needed for Diarrhea. dicyclomine 2020-0 Yes [id number] 10mg Take 1 Univers 10 mg 6-25 capsule by ity of capsule 00:00: mouth (three) Medical times Branch daily as needed for Abdominal pain. loperamide 2020-0 Yes [id number] 2mg Take 1 U nivers 2 mg 6-25 capsule by ity of capsule 00:00: mouth 00 every 4 Medical (four) Branch hours as needed for Diarrhea. dicyclomine 2020-0 Yes [id number] 10mg Take 1 Univers 10 mg 6-25 capsule by ity of capsule 00:00: mouth 3 (three) Medical times Branch daily as needed for Abdominal pain. loperamide 2020-0 Yes [id number] 2mg Take 1 U nivers 2 mg 6-25 capsule by ity of capsule 00:00: mouth [place] 00 every 4 Medical (four) Branch hours as needed for Diarrhea. dicyclomine 2020-0 Yes [id number] 10mg Take 1 Univers 10 mg 6-25 capsule by ity of capsule 00:00: mouth 3 (three) Medical times Branch daily as needed for Abdominal pain. loperamide 2020-0 Yes [id number] 2mg Take 1 U nivers 2 mg 6-25 capsule by ity of capsule 00:00: mouth [place] 00 every 4 Medical (four) Branch hours as needed for Diarrhea. dicyclomine 2020-0 Yes [id number] 10mg Take 1 Univers 10 mg 6-25 capsule by ity of capsule 00:00: mouth 3 (three) Medical times Branch daily as needed for Abdominal pain. loperamide 2020-0 Yes [id number] 2mg Take 1 U nivers 2 mg 6-25 capsule by ity of capsule 00:00: mouth [place] 00 every 4 Medical (four) Branch hours as needed for Diarrhea. dicyclomine 2020-0 Yes [id number] 10mg Take 1 Univers 10 mg 6-25 capsule by ity of capsule 00:00: mouth (three) Medical times Branch daily as needed for Abdominal pain. loperamide 2020-0 Yes [id number] 2mg Take 1 U nivers 2 mg 6-25 capsule by ity of capsule 00:00: mouth [place] 00 every 4 Medical (four) Branch hours as needed for Diarrhea. dicyclomine 2020-0 Yes [id number] 10mg Take 1 Univers 10 mg 6-25 capsule by ity of capsule 00:00: mouth (three) Medical times Branch daily as needed for Abdominal pain. loperamide 2020-0 Yes [id number] 2mg Take 1 U nivers 2 mg 6-25 capsule by ity of capsule 00:00: mouth [place] 00 every 4 Medical (four) Branch hours as needed for Diarrhea. dicyclomine 2020-0 Yes [id number] 10mg Take 1 Univers 10 mg 6-25 capsule by ity of capsule 00:00: mouth 3 (three) Medical times Branch daily as needed for Abdominal pain. loperamide 2020-0 Yes [id number] 2mg Take 1 U nivers 2 mg 6-25 capsule by ity of capsule 00:00: mouth [place] 00 every 4 Medical (four) Branch hours as needed for Diarrhea. dicyclomine 2020-0 Yes [id number] 10mg Take 1 Univers 10 mg 6-25 capsule by ity of capsule 00:00: mouth 3 (three) Medical times Branch daily as needed for Abdominal pain. loperamide 2020-0 Yes [id number] 2mg Take 1 U nivers 2 mg 6-25 capsule by ity of capsule 00:00: mouth [place] 00 every 4 Medical (four) Branch hours as needed for Diarrhea. dicyclomine 2020-0 Yes [id number] 10mg Take 1 Univers 10 mg 6-25 capsule by ity of capsule 00:00: mouth 3 (three) Medical times Branch daily as needed for Abdominal pain. loperamide 2020-0 Yes [id number] 2mg Take 1 U nivers 2 mg 6-25 capsule by ity of capsule 00:00: mouth 00 every 4 Medical (four) Branch hours as needed for Diarrhea. dicyclomine 2020-0 Yes [id number] 10mg Take 1 Univers 10 mg 6-25 capsule by ity of capsule 00:00: mouth (three) Medical times Branch daily as needed for Abdominal pain. loperamide 2020-0 Yes [id number] 2mg Take 1 U nivers 2 mg 6-25 capsule by ity of capsule 00:00: mouth 00 every 4 Medical (four) Branch hours as needed for Diarrhea. dicyclomine 2020-0 Yes [id number] 10mg Take 1 Univers 10 mg 6-25 capsule by ity of capsule 00:00: mouth (three) Medical times Branch daily as needed for Abdominal pain. loperamide 2020-0 Yes [id number] 2mg Take 1 U nivers 2 mg 6-25 capsule by ity of capsule 00:00: mouth every 4 Medical (four) Branch hours as needed for Diarrhea. dicyclomine 2020-0 Yes [id number] 10mg Take 1 Univers 10 mg 6-25 capsule by ity of capsule 00:00: mouth (three) Medical times Branch daily as needed for Abdominal pain. loperamide 2020-0 Yes [id number] 2mg Take 1 U nivers 2 mg 6-25 capsule by ity of capsule 00:00: mouth [place] 00 every 4 Medical (four) Branch hours as needed for Diarrhea. dicyclomine 2020-0 Yes [id number] 10mg Take 1 Univers 10 mg 6-25 capsule by ity of capsule 00:00: mouth 3 00 (three) Medical times Branch daily as needed for Abdominal pain. loperamide 2020-0 Yes [id number] 2mg Take 1 U nivers 2 mg 6-25 capsule by ity of capsule 00:00: mouth every 4 Medical (four) Branch hours as needed for Diarrhea. dicyclomine 2020-0 Yes [id number] 10mg Take 1 Univers 10 mg 6-25 capsule by ity of capsule 00:00: mouth (three) Medical times Branch daily as needed for Abdominal pain. loperamide 2020-0 Yes [id number] 2mg Take 1 U nivers 2 mg 6-25 capsule by ity of capsule 00:00: mouth every 4 Medical (four) Branch hours as needed for Diarrhea. dicyclomine 2020-0 Yes [id number] 10mg Take 1 Univers 10 mg 6-25 capsule by ity of capsule 00:00: mouth (three) Medical times Branch daily as needed for Abdominal pain. loperamide 2020-0 Yes [id number] 2mg Take 1 U nivers 2 mg 6-25 capsule by ity of capsule 00:00: mouth every 4 Medical (four) Branch hours as needed for Diarrhea. dicyclomine 2020-0 Yes [id number] 10mg Take 1 Univers 10 mg 6-25 capsule by ity of capsule 00:00: mouth (three) Medical times Branch daily as needed for Abdominal pain. loperamide 2020-0 Yes [id number] 2mg Take 1 U nivers 2 mg 6-25 capsule by ity of capsule 00:00: mouth every 4 Medical (four) Branch hours as needed for Diarrhea. dicyclomine 2020-0 Yes [id number] 10mg Take 1 Univers 10 mg 6-25 capsule by ity of capsule 00:00: mouth (three) Medical times Branch daily as needed for Abdominal pain. loperamide 2020-0 Yes [id number] 2mg Take 1 U nivers 2 mg 6-25 capsule by ity of capsule 00:00: mouth every 4 Medical (four) Branch hours as needed for Diarrhea. dicyclomine 2020-0 Yes [id number] 10mg Take 1 Univers 10 mg 6-25 capsule by ity of capsule 00:00: mouth (three) Medical times Branch daily as needed for Abdominal pain. loperamide 2020-0 Yes [id number] 2mg Take 1 U nivers 2 mg 6-25 capsule by ity of capsule 00:00: mouth every 4 Medical (four) Branch hours as needed for Diarrhea. dicyclomine 2020-0 Yes [id number] 10mg Take 1 Univers 10 mg 6-25 capsule by ity of capsule 00:00: mouth (three) Medical times Branch daily as needed for Abdominal pain. loperamide 2020-0 Yes [id number] 2mg Take 1 U nivers 2 mg 6-25 capsule by ity of capsule 00:00: mouth every 4 Medical (four) Branch hours as needed for Diarrhea. dicyclomine 2020-0 Yes [id number] 10mg Take 1 Univers 10 mg 6-25 capsule by ity of capsule 00:00: mouth (three) Medical times Branch daily as needed for Abdominal pain. loperamide 2020-0 Yes [id number] 2mg Take 1 U nivers 2 mg 6-25 capsule by ity of capsule 00:00: mouth every 4 Medical (four) Branch hours as needed for Diarrhea. dicyclomine 2020-0 Yes [id number] 10mg Take 1 Univers 10 mg 6-25 capsule by ity of capsule 00:00: mouth (three) Medical times Branch daily as needed for Abdominal pain. loperamide 2020-0 Yes [id number] 2mg Take 1 U nivers 2 mg 6-25 capsule by ity of capsule 00:00: mouth every 4 Medical (four) Branch hours as needed for Diarrhea. dicyclomine 2020-0 Yes [id number] 10mg Take 1 Univers 10 mg 6-25 capsule by ity of capsule 00:00: mouth (three) Medical times Branch daily as needed for Abdominal pain. loperamide 1-0 Yes [id number] 2mg Take 1 U nivers 2 mg 6-25 capsule by ity of capsule 00:00: mouth 00 every 4 Medical (four) Branch hours as needed for Diarrhea. dicyclomine 2021-0 Yes [id number] 10mg Take 1 Univers 10 mg 6-25 capsule by ity of capsule 00:00: mouth (three) Medical times Branch daily as needed for Abdominal pain. loperamide 2021-0 Yes [id number] 2mg Take 1 U nivers 2 mg 6-25 capsule by ity of capsule 00:00: mouth [place] 00 every 4 Medical (four) Branch hours as needed for Diarrhea. dicyclomine 2021-0 Yes [id number] 10mg Take 1 Univers 10 mg 6-25 capsule by ity of capsule 00:00: mouth 3 (three) Medical times Branch daily as needed for Abdominal pain. loperamide 2020-0 Yes [id number] 2mg Take 1 U nivers 2 mg 6-25 capsule by ity of capsule 00:00: mouth [place] 00 every 4 Medical (four) Branch hours as needed for Diarrhea. dicyclomine 2020-0 Yes [id number] 10mg Take 1 Univers 10 mg 6-25 capsule by ity of capsule 00:00: mouth (three) Medical times Branch daily as needed for Abdominal pain. loperamide 2020-0 Yes [id number] 2mg Take 1 U nivers 2 mg 6-25 capsule by ity of capsule 00:00: mouth [place] 00 every 4 Medical (four) Branch hours as needed for Diarrhea. dicyclomine 2020-0 Yes [id number] 10mg Take 1 Univers 10 mg 6-25 capsule by ity of capsule 00:00: mouth (three) Medical times Branch daily as needed for Abdominal pain. loperamide 2020-0 Yes [id number] 2mg Take 1 U nivers 2 mg 6-25 capsule by ity of capsule 00:00: mouth 00 every 4 Medical (four) Branch hours as needed for Diarrhea. dicyclomine 2021-0 Yes [id number] 10mg Take 1 Univers 10 mg 6-25 capsule by ity of capsule 00:00: mouth 3 (three) Medical times Branch daily as needed for Abdominal pain. loperamide 1-0 Yes [id number] 2mg Take 1 U nivers 2 mg 6-25 capsule by ity of capsule 00:00: mouth [place] 00 every 4 Medical (four) Branch hours as needed for Diarrhea. dicyclomine 2021-0 Yes [id number] 10mg Take 1 [facility] 10 mg 6-25 capsule by ity of capsule 00:00: mouth 3 (three) Medical times Branch daily as needed for Abdominal pain. loperamide 0 Yes [id number] 2mg Take 1 [facility] nivers 2 mg 6-25 capsule by ity of capsule 00:00: mouth [place] 00 every 4 Medical (four) Branch hours as needed for Diarrhea. dicyclomine 0 Yes [id number] 10mg Take 1 [facility] 10 mg 6-25 capsule by ity of capsule 00:00: mouth 3 00 (three) Medical times Branch daily as needed for Abdominal pain. loperamide 0 Yes [id number] 2mg Take 1 [facility] nivers 2 mg 6-25 capsule by ity of capsule 00:00: mouth 00 every 4 Medical (four) Branch hours as needed for Diarrhea. dicyclomine 0 Yes [id number] 10mg Take 1 [facility] 10 mg 6-25 capsule by ity of capsule 00:00: mouth 3 (three) Medical times Branch daily as needed for Abdominal pain. loperamide Yes [id number] 2mg Take 1 [facility] nivers 2 mg 6-25 capsule by ity of capsule 00:00: mouth 00 every 4 Medical (four) Branch hours as needed for Diarrhea. Toradol Toradol 0 No 60mg Common (Ketorolac) (Ketorolac) 3-17 S pirit 00:00: - [facility] Toradol Toradol 0 No 60mg Common (Ketorolac) (Ketorolac) 3-17 S pirit 00:00: - [facility] Toradol Toradol 0 No 60mg Common (Ketorolac) (Ketorolac) 3-17 S pirit 00:00: - [facility] Toradol Toradol 0 No 60mg Common (Ketorolac) (Ketorolac) 3-17 S pirit 00:00: - [facility] Toradol Toradol 0 No 60mg Common (Ketorolac) (Ketorolac) 3-17 S pirit 00:00: - [facility] Toradol Toradol 0 No 60mg Common (Ketorolac) (Ketorolac) 3-17 S pirit 00:00: - [facility] Desloratadi Desloratadi 2021-0 No 1{table QD Desloratad [...] (Ketorolac) 3-17 S pirit 00:00: - [facility] 00 [facility] Desloratadi Desloratadi 2020-0 No 1{table QD Desloratad ne 5 MG ne 5 MG 3-17 t} ine 5 MG 00:00: 00 Toradol Toradol 2020-0 No 60mg Common (Ketorolac) (Ketorolac) 3-17 S pirit 00:00: - [facility] Desloratadi Desloratadi 2020-0 No 1{table QD Desloratad ne 5 MG ne 5 MG 3-17 t} ine 5 MG 00:00: 00 Toradol Toradol 2020-0 No 60mg Common (Ketorolac) (Ketorolac) 3-17 S pirit 00:00: - [facility] Desloratadi Desloratadi 2020-0 No 1{table QD Desloratad ne 5 MG ne 5 MG 3-17 t} ine 5 MG 00:00: 00 Toradol Toradol 2020-0 No 60mg Common (Ketorolac) (Ketorolac) 3-17 S pirit 00:00: - [facility] Toradol Toradol 2020-0 No 60mg Common (Ketorolac) (Ketorolac) 3-17 S pirit 00:00: - [facility] Toradol Toradol 2020-0 No 60mg Common (Ketorolac) (Ketorolac) 3-17 S pirit 00:00: - [facility] Toradol Toradol 2021-0 No 60mg Common (Ketorolac) (Ketorolac) 3-17 S pirit 00:00: - [facility] 00 [facility] Toradol Toradol 2020-0 No 60mg Common (Ketorolac) (Ketorolac) 3-17 S pirit 00:00: - [facility] 00 [facility] Toradol Toradol 2020-0 No 60mg Common (Ketorolac) (Ketorolac) 3-17 S pirit 00:00: - [facility] 00 [facility] Toradol Toradol 2020-0 No 60mg Common (Ketorolac) (Ketorolac) 3-17 S pirit 00:00: - [facility] 00 [facility] tiZANidine 2020-0 Yes TAKE 1 Unive rs [...] 00 TWICE Medical DAILY Branch DIRECTED tiZANidine 2021-0 Yes TAKE 1 Unive rs 2 mg tablet 1-07 TABLET BY ity of 00:00: MOUTH [place] 00 TWICE Medical DAILY Branch DIRECTED tiZANidine 2021-0 Yes TAKE 1 Unive rs 2 mg tablet 1-07 TABLET BY ity of 00:00: MOUTH [place] 00 TWICE Medical DAILY Branch DIRECTED tiZANidine 2021-0 Yes TAKE 1 Unive rs 2 mg tablet 1-07 TABLET BY ity of 00:00: MOUTH [place] 00 TWICE Medical DAILY Branch DIRECTED tiZANidine 2021-0 Yes TAKE 1 Unive rs 2 mg tablet 1-07 TABLET BY ity of 00:00: MOUTH [place] 00 TWICE Medical DAILY Branch DIRECTED tiZANidine 2021-0 Yes TAKE 1 Unive rs 2 mg tablet 1-07 TABLET BY ity of 00:00: MOUTH [place] 00 TWICE Medical DAILY Branch DIRECTED tiZANidine 2021-0 Yes TAKE 1 Unive rs 2 mg tablet 1-07 TABLET BY ity of 00:00: MOUTH [place] 00 TWICE Medical DAILY Branch DIRECTED tiZANidine 2021-0 Yes TAKE 1 Unive rs 2 mg tablet 1-07 TABLET BY ity of 00:00: MOUTH [place] 00 TWICE Medical DAILY Branch DIRECTED tiZANidine 2021-0 Yes TAKE 1 Unive rs 2 mg tablet 1-07 TABLET BY ity of 00:00: MOUTH [place] 00 TWICE Medical DAILY Branch DIRECTED tiZANidine 2021-0 Yes TAKE 1 Unive rs 2 mg tablet 1-07 TABLET BY ity of 00:00: MOUTH [place] 00 TWICE Medical DAILY Branch DIRECTED tiZANidine 2021-0 Yes TAKE 1 Unive rs 2 mg tablet 1-07 TABLET BY ity of 00:00: MOUTH [place] 00 TWICE Medical DAILY Branch DIRECTED tiZANidine 2021-0 Yes TAKE 1 Unive rs 2 mg tablet 1-07 TABLET BY ity of 00:00: MOUTH [place] 00 TWICE Medical DAILY Branch DIRECTED tiZANidine 2021-0 Yes TAKE 1 Unive rs 2 mg tablet 1-07 TABLET BY ity of 00:00: MOUTH [place] 00 TWICE Medical DAILY Branch DIRECTED tiZANidine 2021-0 Yes TAKE 1 Unive rs 2 mg tablet 1-07 TABLET BY ity of 00:00: MOUTH [place] 00 TWICE Medical DAILY Branch DIRECTED tiZANidine 2021-0 Yes TAKE 1 Unive rs 2 mg tablet 1-07 TABLET BY ity of 00:00: MOUTH [place] 00 TWICE Medical DAILY Branch DIRECTED tiZANidine 2021-0 Yes TAKE 1 Unive rs 2 mg tablet 1-07 TABLET BY ity of 00:00: MOUTH [place] 00 TWICE Medical DAILY Branch DIRECTED tiZANidine 2021-0 Yes TAKE 1 Unive rs 2 mg tablet 1-07 TABLET BY ity of 00:00: MOUTH [place] 00 TWICE Medical DAILY Branch DIRECTED tiZANidine 2021-0 Yes TAKE 1 Unive rs 2 mg tablet 1-07 TABLET BY ity of 00:00: MOUTH [place] 00 TWICE Medical DAILY Branch DIRECTED tiZANidine 2021-0 Yes TAKE 1 Unive rs 2 mg tablet 1-07 TABLET BY ity of 00:00: MOUTH [place] 00 TWICE Medical DAILY Branch DIRECTED tiZANidine 2021-0 Yes TAKE 1 Unive rs 2 mg tablet 1-07 TABLET BY ity of 00:00: MOUTH [place] 00 TWICE Medical DAILY Branch DIRECTED tiZANidine 2021-0 Yes TAKE 1 Unive rs 2 mg tablet 1-07 TABLET BY ity of 00:00: MOUTH [place] 00 TWICE Medical DAILY Branch DIRECTED tiZANidine 2021-0 Yes TAKE 1 Unive rs 2 mg tablet 1-07 TABLET BY ity of 00:00: MOUTH [place] 00 TWICE Medical DAILY Branch DIRECTED tiZANidine 2021-0 Yes TAKE 1 Unive rs 2 mg tablet 1-07 TABLET BY ity of 00:00: MOUTH [place] 00 TWICE Medical DAILY Branch DIRECTED tiZANidine 2021-0 Yes TAKE 1 Unive rs 2 mg tablet 1-07 TABLET BY ity of 00:00: MOUTH [place] 00 TWICE Medical DAILY Branch DIRECTED tiZANidine 2021-0 Yes TAKE 1 Unive rs 2 mg tablet 1-07 TABLET BY ity of 00:00: MOUTH [place] 00 TWICE Medical DAILY Branch DIRECTED tiZANidine 2021-0 Yes TAKE 1 Unive rs 2 mg tablet 1-07 TABLET BY ity of 00:00: MOUTH [place] 00 TWICE Medical DAILY Branch DIRECTED tiZANidine 2021-0 Yes TAKE 1 Unive rs 2 mg tablet 1-07 TABLET BY ity of 00:00: MOUTH [place] 00 TWICE Medical DAILY Branch DIRECTED tiZANidine 2021-0 Yes TAKE 1 Unive rs 2 mg [...] MOUTH 00 TWICE Medical DAILY Branch DIRECTED Levothyroxi Levothyroxi Yes Ruth 1 tablet Common ne Sodium ne Sodium 4-07 [place] in the Sp coretta 00:00: morning on [address] stomach [facility] Januvia 25 Januvia 25 No 1{table QD Januvia 25 MG MG t} MG metFORMIN metFORMIN No metFORMIN HCl 500 MG HCl 500 MG HCl 500 MG Dicyclomine Dicyclomine No 1{table Dicyclomin HCl 10 MG HCl 10 MG t} e HCl 10 MG Simvastatin Simvastatin No 1{table QD Simvastati 20 20 t_in_ n 20 e_eveni ng} DULoxetine DULoxetine No [...] 20 20 t_in_ n 20 e_eveni ng} Levothyroxi Levothyroxi No [...] 20 20 t_in_ n 20 e_eveni ng} Levothyroxi Levothyroxi No [...] t} tone 25 MG Levothyroxi Levothyroxi Yes Ruth 1 tablet Common ne Sodium ne Sodium [place] in the Sp coretta morning on - [facility] an empty [address] daily Gabapentin Gabapentin Yes Ruth TK 2 Co mmon [place] CAPSULES Spirit PO QID PRN [facility] Ondansetron Ondansetron Yes Ruth TK 1 T PO Common HCl HCl [place] QD FOR 10 Spirit DAYS [facility] Duloxetine Duloxetine Yes Ruth not Co mmon HCl HCl [place] defined [facility] Breo Breo Yes Ruth 1 puff Common Ellipta Ellipta [place] [facility] Topiramate Topiramate Yes Ruth 1 tablet Common [place] [facility] Albuterol Albuterol Yes Ruth 3 ml as C ommon Sulfate Sulfate [place] needed [facility] Trazodone Trazodone Yes Ruth TK 1 TO 2 Common HCl HCl [place] TS PO HS Spirit PRF - [facility] INSOMNIA [facility] Tizanidine Tizanidine Yes Ruth 1 tablet Common HCl HCl [place] as needed [facility] Norvasc Norvasc Yes Ruth 1 tablet Comm on [place] [facility] Estradiol Estradiol Yes Ruth as Comm on [place] directed [facility] Sucralfate Sucralfate Yes Ruth 1 tablet Common [place] on an [facility] empty - [facility] stomach [facility] Nystatin Nystatin Yes Ruth 1 Common [place] applicatio [facility] n [facility] Albuterol Albuterol Yes Ruth INL 2 PFS Common Sulfate HFA Sulfate HFA [place] PO Q 6 H [facility] PRN [facility] Meloxicam Meloxicam Yes Ruth TK 1 T PO Common [place] QD [facility] Loratadine Loratadine Yes Ruht TK 1 T PO Common [place] QD FOR Spirit ALLERGIES [facility] Simvastatin Simvastatin Yes Ruth 1 tablet Common [place] in the [facility] evening [facility] Pantoprazol Pantoprazol Yes Ruth 1 tablet Common e Sodium e Sodium [place] [facility] Lorazepam Lorazepam Yes Ruth 1 tablet Common [place] at bedtime [facility] as needed [facility] Metformin Metformin Yes Ruth TAKE 1 Co mmon HCl HCl [place] TABLET BY [facility] MOUTH - [facility]I TWICE St DAILY WITH [facility] Divalproex Divalproex Yes Ruth 1 tablet Common Sodium ER Sodium ER [place] Spir [facility] Quetiapine Quetiapine Yes Ruth 1 tablet Common Fumarate Fumarate [place] at bedtime [facility] Tramadol Tramadol Yes Ruth 1 tablet Co mmon HCl HCl [place] as needed [facility] Botox Botox Yes Ruth as Common [place] directed [facility] Januvia Januvia Yes Ruth 1 tablet Comm on [place] [facility] Divalproex Divalproex Yes Ruth 3 tabs Common Sodium ER Sodium ER [place] Spir [facility] Simvastatin Simvastatin Yes Ruth TAKE 1 Common [place] TABLET BY [facility] MOUTH - [facility] EVERY DAY [facility] IN [facility] Losartan Losartan Yes Ruth 1 tablet Co mmon Potassium Potassium [place] Sp[facility] Simvastatin Simvastatin No 1{table QD Simvastati [...] MG HCl 150 MG HCl 150 MG hydrOXYzine hydrOXYzine No 1{table BID hydrOXYzin HCl 25 MG HCl 25 MG t_at_be e HCl 25 dtime_a MG s_neede d} Melatonin Melatonin No 2{table Melatonin 10 MG 10 MG ts} 10 MG Gabapentin Gabapentin No 1{capsu Gabapentin 300 MG 300 MG le} 300 MG Simvastatin Simvastatin No 1{table QD Simvastati 20 20 t_in_th n 20 e_eveni ng} Simvastatin Simvastatin No Simvastati 20 MG 20 MG n 20 MG QUEtiapine QUEtiapine No 1{table QD QUEtiapine Fumarate Fumarate t_at_be Fumarate 300 MG 300 MG dtime} 300 MG Loratadine Loratadine No Loratadine 10 MG 10 MG 10 MG Montelukast Montelukast No Montelukas Sodium 10 Sodium 10 t Sodium MG MG 10 MG Losartan Losartan No Losartan Potassium Potassium Potassium 50 MG 50 MG 50 MG Omeprazole Omeprazole No QD Omeprazole 40 MG 40 MG 40 MG tiZANidine tiZANidine No 1{table BID tiZANidine HCl 2 MG HCl 2 MG t_as_ne HCl 2 MG eded} Levothyroxi Levothyroxi No QD Levothyrox ne Sodium ne Sodium ine Sodium 200 MCG 200 MCG 200 MCG Acetaminoph Acetaminoph No QID Acetaminop en 500 MG en 500 MG hen 500 MG amLODIPine amLODIPine No amLODIPine Besylate 5 Besylate 5 Besylate 5 MG MG MG Fluticasone Fluticasone No 1{spray BID Fluticason Propionate Propionate _in_eac e 93 MCG/ACT 93 MCG/ACT h_nostr Propionate il} 93 MCG/ACT Spironolact Spironolact No Spironolac one 25 MG one 25 MG tone 25 MG DULoxetine DULoxetine No 1{capsu BID DULoxetine HCl 60 MG HCl 60 MG le} HCl 60 MG traMADol traMADol No 1{table TID traMADol HCl 50 MG HCl 50 MG t_as_ne HCl 50 MG eded} traZODone traZODone No traZODone HCl 150 MG HCl 150 MG HCl 150 MG hydrOXYzine hydrOXYzine No 1{table BID hydrOXYzin HCl 25 MG HCl 25 MG t_at_be e HCl 25 dtime_a MG s_neede d} Melatonin Melatonin No 2{table Melatonin 10 MG 10 MG ts} 10 MG Gabapentin Gabapentin No 1{capsu Gabapentin 300 MG 300 MG le} 300 MG Simvastatin Simvastatin No 1{table QD Simvastati 20 20 t_in_th n 20 e_eveni ng} Simvastatin Simvastatin No Simvastati 20 MG 20 MG n 20 MG QUEtiapine QUEtiapine No 1{table QD QUEtiapine Fumarate Fumarate t_at_be Fumarate 300 MG 300 MG dtime} 300 MG Loratadine Loratadine No Loratadine 10 MG 10 MG 10 MG Montelukast Montelukast No Montelukas Sodium 10 Sodium 10 t Sodium MG MG 10 MG Losartan Losartan No Losartan Potassium Potassium Potassium 50 MG 50 MG 50 MG Omeprazole Omeprazole No QD Omeprazole 40 MG 40 MG 40 MG tiZANidine tiZANidine No 1{table BID tiZANidine HCl 2 MG HCl 2 MG t_as_ne HCl 2 MG eded} Levothyroxi Levothyroxi No QD Levothyrox ne Sodium ne Sodium ine Sodium 200 MCG 200 MCG 200 MCG Acetaminoph Acetaminoph No QID Acetaminop en 500 MG en 500 MG hen 500 MG amLODIPine amLODIPine No amLODIPine Besylate 5 Besylate 5 Besylate 5 MG MG MG Fluticasone Fluticasone No 1{spray BID Fluticason Propionate Propionate _in_eac e 93 MCG/ACT 93 MCG/ACT h_nostr Propionate il} 93 MCG/ACT Spironolact Spironolact No Spironolac one 25 MG one 25 MG tone 25 MG DULoxetine DULoxetine No 1{capsu BID DULoxetine HCl 60 MG HCl 60 MG le} HCl 60 MG traMADol traMADol No 1{table TID traMADol HCl 50 MG HCl 50 MG t_as_ne HCl 50 MG eded} Montelukast Montelukast No Montelukas Sodium 10 Sodium [...] 300 MG Nystatin Nystatin No 1{appli Nystatin [id number] cation} [id number] UNIT/GM UNIT/GM UNIT/GM LORazepam LORazepam No 1{table [...] MG HCl 150 MG HCl 150 MG Loratadine Loratadine 2021- No 1{table QD Loratadine [...] MG 02-06 t} 10 MG 00:00 :00 Oxybutynin Oxybutynin 2019- No Ruth 1 tablet Common Chloride Chloride 10-31 [place] Sp[facility] t 00:00 - [facility] :00 [facility] Immunizations Ordered Immunization Filled Immunization Date Status Commen ts Source Name Name Flucelvax - Flucelvax - 2022-05-03 Completed [facility] Sp[facility] t multidose vial multidose vial 14:53:00 - [facility] [place] [facility] Flucelvax - Flucelvax - 2022-05-03 Completed [facility] Sp[facility] t multidose vial multidose vial 14:53:00 - [facility] Flucelvax - Flucelvax - 2022-05-03 Completed [facility] Sp[facility] t multidose vial multidose vial 14:53:00 - [facility] Flucelvax - Flucelvax - 2022-05-03 Completed [facility] t multidose vial multidose vial 14:53:00 - [facility] Flucelvax - Flucelvax - 2021-05-18 Completed [facility] Spiri t multidose vial multidose vial 16:08:00 - [facility] Flucelvax - Flucelvax - 2021-05-18 Completed [facility] Sp[facility] t multidose vial multidose vial 16:08:00 - [facility] Flucelvax - Flucelvax - 2021-05-18 Completed [facility] Sp[facility] t multidose vial multidose vial 16:08:00 - [facility] Flucelvax - Flucelvax - 2021-05-18 Completed [facility] t multidose vial multidose vial 16:08:00 - [facility] Flucelvax - Flucelvax - 2021-05-18 Completed [facility] Sp[facility] t multidose vial multidose vial 16:08:00 - [facility] Flucelvax - Flucelvax - 2021-05-18 Completed [facility] t multidose vial multidose vial 16:08:00 - [facility] Flucelvax - Flucelvax - 2021-05-18 Completed [facility] Sp[facility] t multidose vial multidose vial 16:08:00 - [facility] Flucelvax - Flucelvax - 2021-05-18 Completed [facility] Sp[facility] t multidose vial multidose vial 16:08:00 - [facility] Flucelvax - Flucelvax - 2021-05-18 Completed [facility] Sp[facility] t multidose vial multidose vial 16:08:00 - [facility] Flucelvax - Flucelvax - 2021-05-18 Completed [facility] t multidose vial multidose vial 16:08:00 - [facility] Flucelvax - Flucelvax - 2021-05-18 Completed [facility] t multidose vial multidose vial 16:08:00 - [facility] Flucelvax - Flucelvax - 2021-05-18 Completed [facility] Sp[facility] t multidose vial multidose vial 16:08:00 - [facility] Flucelvax - Flucelvax - 2021-05-18 Completed [facility] Sp[facility] t multidose vial multidose vial 16:08:00 - [facility] Flucelvax - Flucelvax - 2021-05-18 Completed [facility] Sp[facility] t multidose vial multidose vial 16:08:00 - [facility] Flucelvax - Flucelvax - 2021-05-18 Completed [facility] Sp[facility] t multidose vial multidose vial 16:08:00 - [facility] Flucelvax - Flucelvax - 2021-05-18 Completed [facility] t multidose vial multidose vial 16:08:00 - [facility] Flucelvax - Flucelvax - 2021-05-18 Completed [facility] t multidose vial multidose vial 16:08:00 - [facility] Flucelvax - Flucelvax - 2021-05-18 Completed [facility] Sp[facility] t multidose vial multidose vial 16:08:00 - [facility] Flucelvax - Flucelvax - 2021-05-18 Completed [facility] Sp[facility] t multidose vial multidose vial 16:08:00 - [facility] Flucelvax - Flucelvax - 2021-05-18 Completed [facility] Sp[facility] t multidose vial multidose vial 16:08:00 - [facility] Flucelvax - Flucelvax - 2021-05-18 Completed [facility] t multidose vial multidose vial 16:08:00 - [facility] Flucelvax - Flucelvax - 2021-05-18 Completed [facility] multidose vial multidose vial 16:08:00 - [facility] Flucelvax - Flucelvax - 2021-05-18 Completed [facility] t multidose vial multidose vial 16:08:00 - [facility] Flucelvax - Flucelvax - 2021-05-18 Completed [facility] Sp[facility] t multidose vial multidose vial 16:08:00 - [facility] Flucelvax - Flucelvax - 2021-05-18 Completed [facility] Sp[facility] t multidose vial multidose vial 16:08:00 - [facility] Flucelvax - Flucelvax - 2021-05-18 Completed [facility] Sp[facility] t multidose vial multidose vial 16:08:00 - [facility] Flucelvax - Flucelvax - 2021-05-18 Completed [facility] Sp[facility] t multidose vial multidose vial 16:08:00 - [facility] Flucelvax - Flucelvax - 2021-05-18 Completed [facility] Sp[facility] multidose vial multidose vial 16:08:00 - [facility] Flucelvax - Flucelvax - 2021-05-18 Completed [facility] multidose vial multidose vial 16:08:00 - [facility] Flucelvax - Flucelvax - 2021-05-18 Completed [facility] Sp[facility] t multidose vial multidose vial 16:08:00 - [facility] Flucelvax - Flucelvax - 2021-05-18 Completed [facility] multidose vial multidose vial 16:08:00 - [facility] COVID-19 Vaccine COVID-19 Vaccine 2020-10-25 Completed [facility] (Dianne) (Dianne) 13:48:00 - [facility] COVID-19 Vaccine COVID-19 Vaccine 2020-10-25 Completed [facility] (Dianne) (Dianne) 13:48:00 - [facility] COVID-19 Vaccine COVID-19 Vaccine 2020-10-25 Completed [facility] (Dianne) (Dianne) 13:48:00 - [facility] COVID-19 Vaccine COVID-19 Vaccine 2020-10-25 Completed [facility] (Dianne) (Dianne) 13:48:00 - [facility] COVID-19 Vaccine COVID-19 Vaccine 2020-10-25 Completed [facility] (Dianne) (Dianne) 13:48:00 - [facility] COVID-19 Vaccine COVID-19 Vaccine 2020-10-25 Completed [facility] (Dianne) (Dianne) 13:48:00 [facility] COVID-19 Vaccine COVID-19 Vaccine 2020-10-25 Completed [facility] (Dianne) (Idanne) 13:48:00 - [facility] COVID-19 Vaccine COVID-19 Vaccine 2020-10-25 Completed [facility] (Dianne) (Dianne) 13:48:00 - [facility] COVID-19 Vaccine COVID-19 Vaccine 2020-10-25 Completed [facility] ([facility]ianne) (Dianne) 13:48:00 - [facility] COVID-19 Vaccine COVID-19 Vaccine 2020-10-25 Completed [facility] (Dianne) (Dianne) 13:48:00 - [facility] COVID-19 Vaccine COVID-19 Vaccine 2020-10-25 Completed [facility] (Dianne) (Dianne) 13:48:00 - [facility] COVID-19 Vaccine COVID-19 Vaccine 2020-10-25 Completed [facility] (Dianne) (Dianne) 13:48:00 - [facility] COVID-19 Vaccine COVID-19 Vaccine 2020-10-25 Completed [facility] (Dianne) (Dianne) 13:48:00 - [facility] COVID-19 Vaccine COVID-19 Vaccine 2020-10-25 Completed [facility] (Dianne) (Dianne) 13:48:00 - [facility] COVID-19 Vaccine COVID-19 Vaccine 2020-10-25 Completed [facility] (Dianne) (Dianne) 13:48:00 [facility] COVID-19 Vaccine COVID-19 Vaccine 2020-10-25 Completed [facility] (Dianne) (Dianne) 13:48:00 [facility] COVID-19 Vaccine COVID-19 Vaccine 2020-10-25 Completed [facility] ([facility]ne) (Dianne) 13:48:00 - [facility] COVID-19 Vaccine COVID-19 Vaccine 2020-10-25 Completed [facility] ([facility]ianne) (Dianne) 13:48:00 [facility] COVID-19 Vaccine COVID-19 Vaccine 2020-10-25 Completed [facility] ([facility]ne) (Dianne) 13:48:00 [facility] COVID-19 Vaccine COVID-19 Vaccine 2020-10-25 Completed [facility] ([facility]ne) (Dianne) 13:48:00 - [facility] COVID-19 Vaccine COVID-19 Vaccine 2020-10-25 Completed [facility] (Dianne) (Dianne) 13:48:00 - [facility] COVID-19 Vaccine COVID-19 Vaccine 2020-10-25 Completed [facility] (Dianne) (Dianne) 13:48:00 - [facility] COVID-19 Vaccine COVID-19 Vaccine 2020-10-25 Completed [facility] (Dianne) (Dianne) 13:48:00 - [facility] COVID-19 Vaccine COVID-19 Vaccine 2020-10-25 Completed [facility] ([facility]ianne) (Dianne) 13:48:00 - [facility] COVID-19 Vaccine COVID-19 Vaccine 2020-10-25 Completed [facility] (Dianne) (Dianne) 13:48:00 - [facility] COVID-19 Vaccine COVID-19 Vaccine 2020-10-25 Completed [facility] ([facility]ianne) (Dianne) 13:48:00 - [facility] COVID-19 Vaccine COVID-19 Vaccine 2020-10-25 Completed [facility] (Dianne) (Dianne) 13:48:00 - [facility] COVID-19 Vaccine COVID-19 Vaccine 2020-10-25 Completed [facility] (Dianne) (Dianne) 13:48:00 [facility] COVID-19 Vaccine COVID-19 Vaccine 2020-10-25 Completed [facility] (Dianne) (Dianne) 13:48:00 [facility] COVID-19 Vaccine COVID-19 Vaccine 2020-10-25 Completed [facility] (Dianne) (Dianne) 13:48:00 [facility] COVID-19 Vaccine COVID-19 Vaccine 2020-10-25 Completed [facility] (Dianne) (Dianne) 13:48:00 [facility] Toradol (Ketorolac) Toradol (Ketorolac) 2020-10-20 Completed [facility] 12:10:00 [facility] Toradol (Ketorolac) Toradol (Ketorolac) 2020-10-20 Completed [facility] 12:10:00 [facility] Pneumovax (PPSV23) Pneumovax (PPSV23) 2019-06-09 Completed [facility] 09:23:00 - [facility] Pneumovax (PPSV23) Pneumovax (PPSV23) 2019-06-09 Completed [facility] 09:23:00 [facility] Pneumovax (PPSV23) Pneumovax (PPSV23) 2019-06-09 Completed [facility] 09:23:00 [facility] Pneumovax (PPSV23) Pneumovax (PPSV23) 2019-06-09 Completed [facility] 09:23:00 [facility] Pneumovax (PPSV23) Pneumovax (PPSV23) 2019-06-09 Completed [facility] 09:23:00 [facility] Pneumovax (PPSV23) Pneumovax (PPSV23) 2019-06-09 Completed [facility] 09:23:00 [facility] Pneumovax (PPSV23) Pneumovax (PPSV23) 2019-06-09 Completed [facility] 09:23:00 - [facility] Pneumovax (PPSV23) Pneumovax (PPSV23) 2019-06-09 Completed [facility] 09:23:00 - [facility] Pneumovax (PPSV23) Pneumovax (PPSV23) 2019-06-09 [facility] 09:23:00 [facility] Pneumovax (PPSV23) Pneumovax (PPSV23) 2019-06-09 Completed [facility] 09:23:00 [facility] Pneumovax (PPSV23) Pneumovax (PPSV23) 2019-06-09 Com[facility] 09:23:00 [facility] Pneumovax (PPSV23) Pneumovax (PPSV23) 2019-06-09 Completed [facility] 09:23:00 [facility] Pneumovax (PPSV23) Pneumovax (PPSV23) 2019-06-09 Completed [facility] 09:23:00 [facility] Pneumovax (PPSV23) Pneumovax (PPSV23) 2019-06-09 Completed [facility] 09:23:00 [facility] Pneumovax (PPSV23) Pneumovax (PPSV23) 2019-06-09 Completed [facility] 09:23:00 - [facility] Pneumovax (PPSV23) Pneumovax (PPSV23) 2019-06-09 Completed [facility] 09:23:00 [facility] Pneumovax (PPSV23) Pneumovax (PPSV23) 2019-06-09 Completed [facility] 09:23:00 [facility] Pneumovax (PPSV23) Pneumovax (PPSV23) 2019-06-09 Completed [facility] 09:23:00 - [facility] Pneumovax (PPSV23) Pneumovax (PPSV23) 2019-06-09 Completed [facility] 09:23:00 [facility] Pneumovax (PPSV23) Pneumovax (PPSV23) 2019-06-09 Completed [facility] 09:23:00 - [facility] Pneumovax (PPSV23) Pneumovax (PPSV23) 2019-06-09 Completed [facility] 09:23:00 [facility] Pneumovax (PPSV23) Pneumovax (PPSV23) 2019-06-09 Completed [facility] 09:23:00 - [facility] Pneumovax (PPSV23) Pneumovax (PPSV23) 2019-06-09 Completed [facility] 09:23:00 - [facility] Pneumovax (PPSV23) Pneumovax (PPSV23) 2019-06-09 Completed [facility] 09:23:00 [facility] Pneumovax (PPSV23) Pneumovax (PPSV23) 2019-06-09 Completed [facility] 09:23:00 - [facility] Pneumovax (PPSV23) Pneumovax (PPSV23) 2019-06-09 Completed [facility] 09:23:00 [facility] Pneumovax (PPSV23) Pneumovax (PPSV23) 2019-06-09 Completed [facility] 09:23:00 [facility] Pneumovax (PPSV23) Pneumovax (PPSV23) 2019-06-09 Completed [facility] 09:23:00 [facility] Pneumovax (PPSV23) Pneumovax (PPSV23) 2019-06-09 Completed [facility] 09:23:00 - [facility] Pneumovax (PPSV23) Pneumovax (PPSV23) 2019-06-09 Completed [facility] 09:23:00 - [facility] Pneumovax (PPSV23) Pneumovax (PPSV23) 2019-06-09 Completed [facility] 09:23:00 - [facility] Pneumovax Pneumovax 2019-06-09 Completed [facility] 00:00:00 - [facility] Flucelvax - single Flucelvax - single 2019-05-30 Completed [facility] dose syringe dose syringe 11:58:00 - [facility] Flucelvax - single Flucelvax - single 2019-05-30 Completed [facility] dose syringe dose syringe 11:58:00 - [facility] Flucelvax - single Flucelvax - single 2019-05-30 Completed [facility] dose syringe dose syringe 11:58:00 - [facility] Flucelvax - single Flucelvax - single 2019-05-30 Completed [facility] dose syringe dose syringe 11:58:00 - [facility] Flucelvax - single Flucelvax - single 2019-05-30 Completed [facility] dose syringe dose syringe 11:58:00 - [facility] Flucelvax - single Flucelvax - single 2019-05-30 Completed [facility] dose syringe dose syringe 11:58:00 - [facility] Flucelvax - single Flucelvax - single 2019-05-30 Completed [facility] dose syringe dose syringe 11:58:00 - [facility] Flucelvax - single Flucelvax - single 2019-05-30 Completed [facility] dose syringe dose syringe 11:58:00 - [facility] Flucelvax - single Flucelvax - single 2019-05-30 Completed [facility] dose syringe dose syringe 11:58:00 - [facility] Flucelvax - single Flucelvax - single 2019-05-30 Completed [facility] dose syringe dose syringe 11:58:00 - [facility] Flucelvax - single Flucelvax - single 2019-05-30 Completed [facility] dose syringe dose syringe 11:58:00 - [facility] Flucelvax - single Flucelvax - single 2019-05-30 Completed [facility] dose syringe dose syringe 11:58:00 - [facility] Flucelvax - single Flucelvax - single 2019-05-30 Completed [facility] dose syringe dose syringe 11:58:00 - [facility] Flucelvax - single Flucelvax - single 2019-05-30 Completed [facility] dose syringe dose syringe 11:58:00 - [facility] Flucelvax - single Flucelvax - single 2019-05-30 Completed [facility] dose syringe dose syringe 11:58:00 - [facility] Flucelvax - single Flucelvax - single 2019-05-30 Completed [facility] dose syringe dose syringe 11:58:00 - [facility] Flucelvax - single Flucelvax - single 2019-05-30 Completed [facility] dose syringe dose syringe 11:58:00 - [facility] Flucelvax - single Flucelvax - single 2019-05-30 Completed [facility] dose syringe dose syringe 11:58:00 - [facility] Flucelvax - single Flucelvax - single 2019-05-30 Completed [facility] dose syringe dose syringe 11:58:00 - [facility] Flucelvax - single Flucelvax - single 2019-05-30 Completed [facility] dose syringe dose syringe 11:58:00 - [facility] Flucelvax - single Flucelvax - single 2019-05-30 Completed [facility] dose syringe dose syringe 11:58:00 - [facility] Flucelvax - single Flucelvax - single 2019-05-30 Completed [facility] dose syringe dose syringe 11:58:00 - [facility] Flucelvax - single Flucelvax - single 2019-05-30 Completed [facility] dose syringe dose syringe 11:58:00 - [facility] Flucelvax - single Flucelvax - single 2019-05-30 Completed [facility] dose syringe dose syringe 11:58:00 - [facility] Flucelvax - single Flucelvax - single 2019-05-30 Completed [facility] dose syringe dose syringe 11:58:00 - [facility] Flucelvax - single Flucelvax - single 2019-05-30 Completed [facility] dose syringe dose syringe 11:58:00 - [facility] Flucelvax - single Flucelvax - single 2019-05-30 Completed [facility] dose syringe dose syringe 11:58:00 - [facility] Flucelvax - single Flucelvax - single 2019-05-30 Completed [facility] dose syringe dose syringe 11:58:00 - [facility] Flucelvax - single Flucelvax - single 2019-05-30 Completed [facility] dose syringe dose syringe 11:58:00 - [facility] Flucelvax - single Flucelvax - single 2019-05-30 Completed [facility] dose syringe dose syringe 11:58:00 - [facility] Flucelvax - single Flucelvax - single 2019-05-30 Completed [facility] dose syringe dose syringe 11:58:00 - [facility] Flucelvax - single Flucelvax - single 2019-05-30 Completed [facility] dose syringe dose syringe 00:00:00 - [facility] Prevnar 13 Prevnar 13 2018-05-09 Completed [facility] -Pneumonia Vaccine -Pneumonia Vaccine 09:29:00 - [facility] Prevnar 13 Prevnar 13 2018-05-09 Completed [facility] -Pneumonia Vaccine -Pneumonia Vaccine 09:29:00 - [facility] Prevnar 13 Prevnar 13 2018-05-09 Completed [facility] -Pneumonia Vaccine -Pneumonia Vaccine 09:29:00 - [facility] Prevnar 13 Prevnar 13 2018-05-09 Completed [facility] -Pneumonia Vaccine -Pneumonia Vaccine 09:29:00 - [facility] Prevnar 13 Prevnar 13 2018-05-09 Completed [facility] -Pneumonia Vaccine -Pneumonia Vaccine 09:29:00 - [facility] Prevnar 13 Prevnar 13 2018-05-09 Completed [facility] -Pneumonia Vaccine -Pneumonia Vaccine 09:29:00 - [facility] Prevnar 13 Prevnar 13 2018-05-09 Completed [facility] -Pneumonia Vaccine -Pneumonia Vaccine 09:29:00 - [facility] Prevnar 13 Prevnar 13 2018-05-09 Completed [facility] -Pneumonia Vaccine -Pneumonia Vaccine 09:29:00 - [facility] Prevnar 13 Prevnar 13 2018-05-09 Completed [facility] -Pneumonia Vaccine -Pneumonia Vaccine 09:29:00 - [facility] Prevnar 13 Prevnar 13 2018-05-09 Completed [facility] -Pneumonia Vaccine -Pneumonia Vaccine 09:29:00 - [facility] Prevnar 13 Prevnar 13 2018-05-09 Completed [facility] -Pneumonia Vaccine -Pneumonia Vaccine 09:29:00 - [facility] Prevnar 13 Prevnar 2018-05-09 Completed [facility] -Pneumonia Vaccine -Pneumonia Vaccine 09:29:00 - [facility] Prevnar 13 Prevnar 2018-05-09 Completed [facility] -Pneumonia Vaccine -Pneumonia Vaccine 09:29:00 - [facility] Prevnar 13 Prevnar 2018-05-09 Completed [facility] -Pneumonia Vaccine -Pneumonia Vaccine 09:29:00 - [facility] Prevnar 13 Prevnar 2018-05-09 Completed [facility] -Pneumonia Vaccine -Pneumonia Vaccine 09:29:00 - [facility] Prevnar 13 Prevnar 2018-05-09 Completed [facility] -Pneumonia Vaccine -Pneumonia Vaccine 09:29:00 - [facility] Prevnar 13 Prevnar 2018-05-09 Completed [facility] -Pneumonia Vaccine -Pneumonia Vaccine 09:29:00 - [facility] Prevnar 13 Prevnar 13 2018-05-09 Completed [facility] -Pneumonia Vaccine -Pneumonia Vaccine 09:29:00 - [facility] Prevnar 13 Prevnar 13 2018-05-09 Completed [facility] -Pneumonia Vaccine -Pneumonia Vaccine 09:29:00 - [facility] Prevnar 13 Prevnar 2018-05-09 Completed [facility] -Pneumonia Vaccine -Pneumonia Vaccine 09:29:00 - [facility] Prevnar 13 Prevnar 13 2018-05-09 Completed [facility] -Pneumonia Vaccine -Pneumonia Vaccine 09:29:00 - [facility] Prevnar 13 Prevnar 13 2018-05-09 Completed [facility] -Pneumonia Vaccine -Pneumonia Vaccine 09:29:00 - [facility] Prevnar 13 Prevnar 13 2018-05-09 Completed [facility] -Pneumonia Vaccine -Pneumonia Vaccine 09:29:00 - [facility] Prevnar 13 Prevnar 13 2018-05-09 Completed [facility] -Pneumonia Vaccine -Pneumonia Vaccine 09:29:00 - [facility] Prevnar 13 Prevnar 13 2018-05-09 Completed [facility] -Pneumonia Vaccine -Pneumonia Vaccine 09:29:00 - [facility] Prevnar 13 Prevnar 13 2018-05-09 Completed [facility] -Pneumonia Vaccine -Pneumonia Vaccine 09:29:00 - [facility] Prevnar 13 Prevnar 13 2018-05-09 Completed [facility] -Pneumonia Vaccine -Pneumonia Vaccine 09:29:00 - [facility] Prevnar 13 Prevnar 13 2018-05-09 Completed [facility] -Pneumonia Vaccine -Pneumonia Vaccine 09:29:00 - [facility] Prevnar 13 Prevnar 13 2018-05-09 Completed [facility] -Pneumonia Vaccine -Pneumonia Vaccine 09:29:00 - [facility] Prevnar 13 Prevnar 13 2018-05-09 Completed [facility] -Pneumonia Vaccine -Pneumonia Vaccine 09:29:00 - [facility] Prevnar 13 Prevnar 13 2018-05-09 Completed [facility] -Pneumonia Vaccine -Pneumonia Vaccine 09:29:00 - [facility] Prevnar 13 Prevnar 13 2018-05-09 Completed [facility] -Pneumonia Vaccine -Pneumonia Vaccine 00:00:00 - [facility] Vital Signs Vital Name Observation Time Observation Value Comments Source Body weight 2022-09-29 16:23:00 91.173 kg [facility] BMI 2022-09-29 16:23:00 32.44 kg/m2 [facility] Body weight 2022-08-24 17:19:00 91.173 kg [facility] BMI 2022-08-24 17:19:00 32.44 kg/m2 [facility] Systolic blood 2022-08-09 19:15:00 133 mm[Hg] Univer [facility]ity of pressure [facility] Diastolic blood 2022-08-09 19:15:00 77 mm[Hg] Unive rsity of pressure [facility] Heart rate 2022-08-09 19:15:00 103 /min [facility] Body height 2022-08-09 19:14:00 167.6 cm [facility] Body weight 2022-08-09 19:14:00 91.4 kg [facility] BMI 2022-08-09 19:14:00 32.52 kg/m2 [facility] Oxygen saturation in 2022-08-09 19:14:00 100 /min [facility] Arterial blood by [facility] gregg Pulse oximetry Branch Systolic blood 2022-06-06 20:31:00 139 mm[Hg] [facility] Diastolic blood 2022-06-06 20:31:00 103 mm[Hg] Unive rsity of [facility] Heart rate 2022-06-06 20:31:00 98 /min [facility] [place] Body temperature 2022-06-06 20:31:00 36.67 Natalia [facility] Respiratory rate 2022-06-06 20:31:00 20 /min [facility] Body weight 2022-06-06 20:31:00 81.647 kg [facility] BMI 2022-06-06 20:31:00 28.19 kg/m2 [facility] Oxygen saturation in 2022-06-06 20:31:00 100 /min [facility] Arterial blood by [facility] Pulse oximetry Branch Systolic blood 2022-05-24 20:04:00 145 mm[Hg] [facility] Diastolic blood 2022-05-24 20:04:00 77 mm[Hg] [facility] Body height 2022-05-24 20:04:00 170.2 cm [facility] Body weight 2022-05-24 20:04:00 85.73 kg [facility] BMI 2022-05-24 20:04:00 29.60 kg/m2 [facility] height 2022-05-03 14:20:00 65.5 [in_i] [facility] weight 2022-05-03 14:20:00 189.6 [lb_av] [facility] - [facility] temperature 2022-05-03 14:20:00 97.8 [degF] [facility] bmi 2022-05-03 14:20:00 31.07 kg/m2 [facility] oximetry 2022-05-03 14:20:00 100 % [facility] respiratory rate 2022-05-03 14:20:00 16 /min [facility] blood pressure 2022-05-03 14:20:00 134 mm[Hg] [facility] - systolic [facility] blood pressure 2022-05-03 14:20:00 82 mm[Hg] [facility] - diastolic [facility] Systolic blood 2022-03-25 00:54:00 164 mm[Hg] Univer sity of [facility] Diastolic blood 2022-03-25 00:54:00 83 mm[Hg] [facility] Heart rate 2022-03-25 00:54:00 95 /min [facility] acute hospital Body temperature 2022-03-25 00:54:00 37 Natalia [facility] Oxygen saturation in 2022-03-25 00:54:00 97 /min [facility] Arterial blood by [facility] Pulse oximetry Branch Respiratory rate 2022-03-24 19:44:00 18 /min [facility] Body height 2022-03-24 18:05:00 170.2 cm [facility] acute [facility] Body weight 2022-03-24 18:05:00 84.823 kg [facility] acute [facility] BMI 2022-03-24 18:05:00 29.29 kg/m2 [facility] Systolic blood 2022-03-24 19:44:00 138 mm[Hg] Univer sity of [facility] Diastolic blood 2022-03-24 19:44:00 67 mm[Hg] Unive rsity of [facility] Heart rate 2022-03-24 19:44:00 84 /min [facility] acute hospital Body temperature 2022-03-24 19:44:[address] [facility] 2022-03-24 19:44:00 18 /min [facility] Oxygen saturation in 2022-03-24 19:44:00 97 /min [facility] blood by [facility] Pulse oximetry Branch Body height 2022-03-24 18:05:00 170.2 cm [facility] [place] Body weight 2022-03-24 18:05:00 84.823 kg [facility] [place] BMI 2022-03-24 18:05:00 29.29 kg/m2 [facility] Systolic blood 2022-03-23 13:59:00 130 mm[Hg] Univer [facility]ity of pressure [facility] Diastolic blood 2022-03-23 13:59:00 65 mm[Hg] Unive rsity of pressure [facility] Heart rate 2022-03-23 13:59:00 77 /min [facility] Body temperature 2022-03-23 13:59:00 35.39 Natalia [facility] [place] Respiratory rate 2022-03-23 13:59:00 16 /min [facility] [place] Body height 2022-03-23 13:59:00 170.2 cm [facility] [place] Body weight 2022-03-23 13:59:00 85 kg [facility] [place] BMI 2022-03-23 13:59:00 29.35 kg/m2 [facility] Oxygen saturation in 2022-03-23 13:59:00 99 /min [facility] blood by [facility] Pulse oximetry Branch height 2022-03-08 14:40:00 65.5 [in_i] [facility] weight 2022-03-08 14:40:00 195.8 [lb_av] [facility] temperature 2022-03-08 14:40:00 97.8 [degF] [facility] bmi 2022-03-08 14:40:00 32.08 kg/m2 [facility] oximetry 2022-03-08 14:40:00 98 % [facility] respiratory rate 2022-03-08 14:40:00 16 /min [facility] blood pressure 2022-03-08 14:40:00 126 mm[Hg] [facility] - systolic [facility] blood pressure 2022-03-08 14:40:00 74 mm[Hg] [facility] - diastolic [facility] Body height 2022-02-21 19:05:00 170.2 cm [facility] acute [facility] Body weight 2022-02-21 19:05:00 86.183 kg [facility] BMI 2022-02-21 19:05:00 29.76 kg/m2 [facility] acute hospital height 2021-12-07 14:40:00 65.5 [in_i] [facility] weight 2021-12-07 14:40:00 188.4 [lb_av] [facility] temperature 2021-12-07 14:40:00 97.5 [degF] [facility] bmi 2021-12-07 14:40:00 30.87 kg/m2 [facility] oximetry 2021-12-07 14:40:00 100 % [facility] respiratory rate 2021-12-07 14:40:00 16 /min [facility] on [facility] blood pressure 2021-12-07 14:40:00 134 mm[Hg] [facility] - systolic [facility] blood pressure 2021-12-07 14:40:00 76 mm[Hg] [facility] - diastolic [facility] height 2021-11-08 11:20:00 65.5 [in_i] [facility] weight 2021-11-08 11:20:00 191.8 [lb_av] [facility] temperature 2021-11-08 11:20:00 98.1 [degF] [facility] bmi 2021-11-08 11:20:00 31.43 kg/m2 [facility] oximetry 2021-11-08 11:20:00 98 % [facility] respiratory rate 2021-11-08 11:20:00 16 /min [facility] height 2021-11-03 14:00:00 65.5 [in_i] [facility] weight 2021-11-03 14:00:00 193 [lb_av] [facility] bmi 2021-11-03 14:00:00 31.62 kg/m2 [facility] height 2021-10-20 11:00:00 65.5 [in_i] [facility] weight 2021-10-20 11:00:00 193 [lb_av] [facility] temperature 2021-10-20 11:00:00 97.4 [degF] [facility] bmi 2021-10-20 11:00:00 31.62 kg/m2 [facility] blood pressure 2021-10-20 11:00:00 132 mm[Hg] [facility] - systolic [facility] blood pressure 2021-10-20 11:00:00 74 mm[Hg] [facility] - diastolic [facility] height 2021-08-31 08:30:00 65.5 [in_i] [facility] weight 2021-08-31 08:30:00 190 [lb_av] [facility] temperature 2021-08-31 08:30:00 97.3 [degF] [facility] bmi 2021-08-31 08:30:00 31.13 kg/m2 [facility] blood pressure 2021-08-31 08:30:00 118 mm[Hg] [facility] - systolic [facility] blood pressure 2021-08-31 08:30:00 68 mm[Hg] [facility] - diastolic [facility] height 2021-08-23 13:00:00 65.5 [in_i] [facility] 13[facility]00:00 203.8 [lb_av] [facility] temperature 2021-08-23 13:00:00 97.7 [degF] [facility] bmi 2021-08-23 13:00:00 33.39 kg/m2 [facility] oximetry 2021-08-23 13:00:00 99 % [facility] respiratory rate 2021-08-23 13:00:00 16 /min [facility] blood pressure 2021-08-23 13:00:00 132 mm[Hg] [facility] - systolic [facility] blood pressure 2021-08-23 13:00:00 68 mm[Hg] [facility] - diastolic [facility] height 2021-07-06 15:00:00 65.5 [in_i] [facility] weight 2021-07-06 15:00:00 204.4 [lb_av] [facility] temperature 2021-07-06 15:00:00 97.5 [degF] [facility] bmi 2021-07-06 15:00:00 33.49 kg/m2 [facility] oximetry 2021-07-06 15:00:00 97 % [facility] respiratory rate 2021-07-06 15:00:00 16 /min [facility] blood pressure 2021-07-06 15:00:00 138 mm[Hg] [facility] - systolic [facility] blood pressure 2021-07-06 15:00:00 80 mm[Hg] [facility] - diastolic [facility] height 2021-06-22 10:20:00 65.5 [in_i] [facility] weight 2021-06-22 10:20:00 167.6 [lb_av] [facility] temperature 2021-06-22 10:20:00 97.4 [degF] [facility] bmi 2021-06-22 10:20:00 27.46 kg/m2 [facility] oximetry 2021-06-22 10:20:00 98 % [facility] respiratory rate 2021-06-22 10:20:00 16 /min [facility] blood pressure 2021-06-22 10:20:00 136 mm[Hg] [facility] - systolic [facility] blood pressure 2021-06-22 10:20:00 80 mm[Hg] [facility] - diastolic [facility] height 2021-06-02 15:20:00 65.5 [in_i] [facility] weight 2021-06-02 15:20:00 207.7 [lb_av] [facility] temperature 2021-06-02 15:20:00 98.7 [degF] [facility] bmi 2021-06-02 15:20:00 34.03 kg/m2 [facility] oximetry 2021-06-02 15:20:00 97 % [facility] respiratory rate 2021-06-02 15:20:00 18 /min [facility] blood pressure 2021-06-02 15:20:00 134 mm[Hg] [facility] - systolic [facility] blood pressure 2021-06-02 15:20:00 72 mm[Hg] [facility] - diastolic [facility] height 2021-05-18 15:00:00 65.5 [in_i] [facility] weight 2021-05-18 15:00:00 212 [lb_av] [facility] temperature 2021-05-18 15:00:00 97 [degF] [facility] bmi 2021-05-18 15:00:00 34.74 kg/m2 [facility] oximetry 2021-05-18 15:00:00 98 % [facility] respiratory rate 2021-05-18 15:00:00 20 /min [facility] blood pressure 2021-05-18 15:00:00 130 mm[Hg] [facility] - systolic [facility] blood pressure 2021-05-18 15:00:00 82 mm[Hg] [facility] - diastolic [facility] Procedures Procedure Date / Time Performing Source Performed Clinician REFERRAL- REQUEST/RESPONSE 2022-09-05 Doctor [facility] of 06:01:00 Unassigned, No [facility] DME/SUPPLY JUSTIFICATION 2022-08-21 Doctor [facility] 06:01:00 Unassigned, No [facility] DME/SUPPLY JUSTIFICATION 2022-08-10 Doctor Univers ity of 06:01:00 Unassigned, No [facility] DME/SUPPLY JUSTIFICATION 2022-07-24 Doctor Univers ity of 06:01:00 Unassigned, No [facility] DME/SUPPLY JUSTIFICATION 2022-06-14 Doctor Univers ity of 06:01:00 Unassigned, No [facility] ASSIGNMENT OF BENEFITS 2022-06-06 Doctor Universit y of 20:54:56 Unassigned, No [facility] CONSENT/REFUSAL FOR DIAGNOSIS AND 2022-06-06 Doctor [place] of TREATMENT 20:21:29 Unassigned, No [facility] MR HIP RIGHT WO CONTRAST 2022-06-06 Kusum Pacheco Univers ity of 20:00:46 [facility] ASSIGNMENT OF BENEFITS 2022-06-06 Doctor Universit y of 18:40:50 Unassigned, No [facility] REFERRAL- REQUEST/RESPONSE 2022-05-10 Doctor Unive rsity of 05:01:00 Unassigned, No [facility] DNR 2022-04-04 Doctor University of 05:01:00 Unassigned, No [facility] POCT GLUCOSE (AUTOMATED) 2022-03-24 Prakash Waller rsity of 21:06:00 [facility] POCT GLUCOSE (AUTOMATED) 2022-03-[address] [facility] of 21:06:00 [facility] COLONOSCOPY (ENDO) 2022-03-24 Prakash Waller [place] of 18:38:21 [facility] COLONOSCOPY (ENDO) 2022-03-24 Prakash Waller [place] of 18:38:21 [facility] COLONOSCOPY 2022-03-24 Earnest Nunez [facility] of 18:31:00 [facility] POCT GLUCOSE (AUTOMATED) 2022-03-[address] [facility] of 13:30:00 [facility] POCT GLUCOSE (AUTOMATED) 2022-03-24 [facility] 13:30:00 [facility] POCT GLUCOSE (AUTOMATED) 2022-03-[address] [facility] of 13:30:00 [facility] CBC WITHOUT DIFF 2022-03-24 Jovanna [facility] of 10:55:00 [facility] CBC WITHOUT DIFF 2022-03-24 [place], [facility] of 10:55:00 [facility] CBC WITHOUT DIFF 2022-03-24 Jovanna [facility] of 10:55:00 [facility] MAGNESIUM 2022-03-24 [facility] of 09:28:00 [facility] BASIC METABOLIC PANEL (NA, K, CL, 2022-03-24 [place] [facility] of CO2, GLUCOSE, BUN, CREATININE, CA) 09:28:00 [facility] MAGNESIUM 2022-03-24 [facility] of 09:28:00 [facility] BASIC METABOLIC PANEL (NA, K, CL, 2022-03-24 [place] [facility] of CO2, GLUCOSE, BUN, CREATININE, CA) 09:28:00 [facility] MAGNESIUM 2022-03-24 [facility] of 09:28:00 [facility] BASIC METABOLIC PANEL (NA, K, CL, 2022-03-24 [facility] of CO2, GLUCOSE, BUN, CREATININE, CA) 09:28:00 [facility] POCT GLUCOSE (AUTOMATED) 2022-03-24 Prakash Waller rsity of 04:04:00 [facility] POCT GLUCOSE (AUTOMATED) 2022-03-[address] [facility] of 04:04:00 [facility] POCT GLUCOSE (AUTOMATED) 2022-03-24 Prakash Waller Univzain rsity of 04:04:00 [facility] POCT GLUCOSE (AUTOMATED) 2022-03-24 Prakash Waller Unive rsity of 01:54:00 [facility] POCT GLUCOSE (AUTOMATED) 2022-03-24 Prakash Waller Unive rsity of 01:54:00 [facility] POCT GLUCOSE (AUTOMATED) 2022-03-24 Prakash Waller Unive rsity of 01:54:00 [facility] POCT GLUCOSE (AUTOMATED) 2022-03-23 Prakash Waller Unive rsity of 22:06:00 [facility] POCT GLUCOSE (AUTOMATED) 2022-03-23 Prakash Waller Unive rsity of 22:06:00 [facility] POCT GLUCOSE (AUTOMATED) 2022-03-23 Prakash Waller rsity of 22:06:00 [facility] SURGICAL PATHOLOGY EXAM 2022-03-23 Gou, Earnestlolis Henning Univer sity of 14:36:00 [place] [facility] SURGICAL PATHOLOGY EXAM 2022-03-23 Gou, Earnestlolis Henning Univer sity of 14:36:00 [facility] SURGICAL PATHOLOGY EXAM 2022-03-23 Gou, Earnestlolis Dunns Univer sity of 14:36:00 [facility] ESOPHAGOGASTRODUODENOSCOPY 2022-03-23 Gou, Earnest Henning Uni versity of 14:09:00 [facility] ESOPHAGOGASTRODUODENOSCOPY 2022-03-23 Gou, Earnest Henning Uni versity of 14:09:00 [facility] EGD (ENDO) 2022-03-23 Prakash Waller of 13:02:56 [facility] EGD (ENDO) 2022-03-23 Prakash Waller [place] of 13:02:56 [facility] EGD (ENDO) 2022-03-23 Prakash Waller of 13:02:56 [facility] POCT GLUCOSE (AUTOMATED) 2022-03-23 Prakash Waller rsity of 12:56:00 [facility] POCT GLUCOSE (AUTOMATED) 2022-03-23 Prakash Waller rsity of 12:56:00 [facility] POCT GLUCOSE (AUTOMATED) 2022-03-23 Prakash Waller rsity of 12:56:00 [facility] FERRITIN SERUM 2022-03-23 Rainer [facility] of 10:21:00 [facility] BASIC METABOLIC PANEL (NA, K, CL, 2022-03-23 [place], [facility] of CO2, GLUCOSE, BUN, CREATININE, CA) 10:21:00 [facility] CBC WITH DIFF 2022-03-23 [facility] of 10:21:00 [facility] ACTIVATED PARTIAL THRMPLAS CASSIE 2022-03-23 Dragan, Courtney U niversity of 10:21:00 [facility] FIBRINOGEN 2022-03-23 [facility] of 10:21:00 [facility] FERRITIN SERUM 2022-03-23 Rainer [facility] of 10:21:00 [facility] BASIC METABOLIC PANEL (NA, K, CL, 2022-03-23 [facility] CO2, GLUCOSE, BUN, CREATININE, CA) 10:21:00 [facility] CBC WITH DIFF 2022-03-23 [facility] of 10:21:00 [facility] ACTIVATED PARTIAL THRMPLAS CASSIE 2022-03-23 [facility], Courtney U niversity of 10:21:00 [facility] FIBRINOGEN 2022-03-23 Suma [facility] of 10:21:00 [facility] FERRITIN SERUM 2022-03-23 R[facility] of 10:21:00 [facility] BASIC METABOLIC PANEL (NA, K, CL, 2022-03-23 [facility] of CO2, GLUCOSE, BUN, CREATININE, CA) 10:21:00 [facility] CBC WITH DIFF 2022-03-23 [facility] of 10:21:00 [facility] ACTIVATED PARTIAL THRMPLAS CASSIE 2022-03-23 Suma, Courtney U niversity of 10:21:00 [facility] FIBRINOGEN 2022-03-23 Suma [facility] University of 10:21:00 [facility] POCT GLUCOSE (AUTOMATED) 2022-03-23 Prakash Waller rsity of 02:06:00 [facility] POCT GLUCOSE (AUTOMATED) 2022-03-23 Prakash Waller Univzain rsity of 02:06:00 [facility] POCT GLUCOSE (AUTOMATED) 2022-03-23 Prakash Waller Vi Unive rsity of 02:06:00 [facility] POCT GLUCOSE (AUTOMATED) 2022-03-23 Prakash Waller Vi Unive rsity of 01:28:00 [facility] POCT GLUCOSE (AUTOMATED) 2022-03-23 Prakash Waller Vi Unive rsity of 01:28:00 [facility] POCT GLUCOSE (AUTOMATED) 2022-03-23 Prakash Waller Vi Unive rsity of 01:28:00 [facility] POCT GLUCOSE (AUTOMATED) 2022-03-22 Prakash Waller Vi Unive rsity of 22:06:00 [facility] POCT GLUCOSE (AUTOMATED) 2022-03-22 Prakash Waller Vi Unive rsity of 22:06:00 [facility] POCT GLUCOSE (AUTOMATED) 2022-03-22 Prakash Waller Vi Unive rsity of 22:06:00 [facility] HB ABO GROUPING 2022-03-22 [place] [facility] of 20:28:00 [facility] HB ABO GROUPING 2022-03-22 [facility] of 20:28:00 [facility] HB ABO GROUPING 2022-03-22 [facility] of 20:28:00 [facility] VITAMIN B12, LEVEL 2022-03-22 [place] [facility] of 17:58:00 [facility] FOLATE 2022-03-22 [facility] of 17:58:00 [facility] HEPATIC FUNCTION PANEL ([id number]) 2022-03-22 Shabbir Nugent niversity of (ALB,T.PRO,BILI 17:58:00 [facility],BU/BC,ALT,AST,ALK PHOS) [place] BASIC METABOLIC PANEL (NA, K, CL, 2022-03-22 [place], [facility] of CO2, GLUCOSE, BUN, CREATININE, CA) 17:58:00 [facility] CBC WITH DIFF 2022-03-22 Jovanna, [facility] of 17:58:00 [facility] VITAMIN B12, LEVEL 2022-03-22 [place] [facility] of 17:58:00 [facility] FOLATE 2022-03-22 Jovanna, [facility] of 17:58:00 [facility] HEPATIC FUNCTION PANEL ([id number]) 2022-03-22 Shabbir Nugent niversity of (ALB,T.PRO,BILI 17:58:00 [place] [facility],BU/BC,ALT,AST,ALK PHOS) Branch BASIC METABOLIC PANEL (NA, K, CL, 2022-03-22 Jovanna [facility] of CO2, GLUCOSE, BUN, CREATININE, CA) 17:58:00 [facility] CBC WITH DIFF 2022-03-22 Jovanna [facility] 17:58:00 [facility] VITAMIN B12, LEVEL 2022-03-22 Jovanna [facility] 17:58:00 [facility] FOLATE 2022-03-22 Jovanna [facility] of 17:58:00 [facility] HEPATIC FUNCTION PANEL ([id number]) 2022-03-22 Shabbir [facility]ent [facility] of (ALB,T.PRO,BILI 17:58:00 [place] [facility] T,BU/BC,ALT,AST,ALK PHOS) Branch BASIC METABOLIC PANEL (NA, K, CL, 2022-03-22 Jovanna [facility] of CO2, GLUCOSE, BUN, CREATININE, CA) 17:58:00 [facility] CBC WITH DIFF 2022-03-22 Jovanna, [facility] of 17:58:00 [facility] HOSPITAL ADMISSION 2022-03-22 [facility] of 05:01:00 Unassigned, No [facility] HOSPITAL ADMISSION 2022-03-22 [facility] of 05:01:00 Unassigned, No [facility] HOSPITAL ADMISSION 2022-03-22 [facility] of 05:01:00 Unassigned, No [facility] [id number] 2021-10-17 [facility] 00:00:00 [facility] Encounters Start End Encounter Admission Attending Care Care Encounter Source Date/Time Date/Time Type Type Clinicians Facility Department ID 2022-11-01 Outpatient Kong [facility] [id number] Common 12:45:00 Skylar 95819 [facility] 2022-10-31 Outpatient Kong [facility] [id number] Common 12:06:00 Skylar 71229 [facility] 2022-02-16 Outpatient Triana, STLMLC STLMLC [id number] Common 13:42:01 Skylar [facility] 2022-02-07 Outpatient Triana, STLMLC STLMLC [id number] Common 08:29:00 Skylar [facility] 2021-12-27 Outpatient R MINH [facility] [id number] Univers 09:49:04 MEHRDAD Field [facility] 2021-12-08 Outpatient Triana, STLMLC STLMLC [id number] Common 16:43:00 Skylar [facility] 2021-12-05 Outpatient Triana, STLMLC STLMLC [id number] Common 14:56:01 Skylar [facility] 2021-11-04 Outpatient Triana, STLMLC STLMLC [id number] Common 10:22:00 Skylar [facility] 2021-10-26 Outpatient Triana, STLMLC STLMLC [id number] Common 16:48:01 Skylar [facility] 2021-10-21 Outpatient Triana, STLMLC STLMLC [id number] Common 13:18:01 Skylar [facility] 2021-10-18 Outpatient Triana, STLMLC STLMLC [id number] Common 13:27:02 Skylar [facility] 2021-08-31 Outpatient Triana, STLMLC STLMLC [id number] Common 14:40:32 Skylar [facility] 2021-08-31 Outpatient Triana, STLMLC STLMLC [id number] Common 14:27:35 Skylar [facility] 2021-08-31 Outpatient Triana, STLMLC STLMLC [id number] Common 14:13:22 Skylar [facility] 2021-08-31 Outpatient Triana, STLMLC STLMLC [id number] Common 14:05:40 Skylar 54183 [facility] 2021-08-31 Outpatient [place], STLMLC STLMLC [id number] Common 14:01:51 Rtuh 49608 [facility] 2021-08-31 Outpatient [place], STLMLC STLMLC [id number] Common 14:00:44 Ruth 99066 [facility] 2021-08-31 Outpatient [place], STLMLC STLMLC [id number] Common 13:48:34 Ruth 03589 [facility] 2021-08-31 Outpatient [place], STLMLC STLMLC [id number] Common 13:28:14 Ruth 12016 [facility] 2021-08-31 Outpatient [place], STLMLC STLMLC [id number] Common 12:43:59 Ruth 23849 [facility] 2021-08-31 Outpatient [place], STLMLC STLMLC [id number] Common 12:43:30 Ruth 17109 [facility] 2021-08-31 Outpatient [place], STLMLC STLMLC [id number] Common 12:40:36 Ruth 23935 [facility] 2021-08-31 Outpatient [place], STLMLC STLMLC [id number] Common 11:45:41 Ruth 31453 [facility] 2021-08-31 Outpatient [place], STLMLC STLMLC [id number] Common 11:36:44 Ruth 48491 [facility] 2021-08-31 Outpatient [place], STLMLC STLMLC [id number] Common 11:33:43 Ruth 74169 [facility] 2021-08-31 Outpatient [place], STLMLC STLMLC [id number] Common 11:29:50 Ruth 69670 [facility] 2021-08-31 Outpatient [place], STLMLC STLMLC [id number] Common 11:25:13 Ruth 61539 [facility] 2021-08-31 Outpatient [place], STLMLC STLMLC [id number] Common 11:19:14 Ruth 23786 [facility] 2021-08-31 Outpatient Florencio, STLMLC STLC [id number] Common 11:12:16 Ruth 15297 [facility] 2021-08-31 Outpatient Estefany, STLMLC STLC [id number] Common 11:09:26 Sheryl 28929 [facility] 2021-08-31 Outpatient [place], [facility] [id number] Common 11:07:41 Ruth 64810 [facility] 2021-08-31 Outpatient [place], STLMLC STLC [id number] Common 11:07:07 Ruth 42410 [facility] 2021-08-31 Outpatient [place], STLMLC [facility] [id number] Common 10:58:45 Ruth 55991 [facility] 2021-06-07 Emergency [facility] [id number] Univers 03:36[facility]58 [facility] [place] [facility]-07 Outpatient R [facility] NING [id number] Univers 00:03:36 MEHRDAD Field [facility] 2021-06-06 Emergency [facility] [id number] Univers 01:28:49 [facility] [place] 2021-06-04 Emergency [facility] [id number] Univers 13:53:54 [facility] 2021-06-04 Outpatient R [facility] GATITO [id number] Univers 00:26:15 MEHRDAD Field ity [facility] 2023-01-10 2023-01-10 Outpatient MHIE MHIE [id number] Memoria 14:45:00 14:45:00 33 dmitry Donato 2022-11-08 2022-11-08 Outpatient MHIE MHIE [id number] Memoria 15:15:00 15:15:00 32 dmitry Donato 2022-10-05 2022-10-05 Outpatient MHIE MHIE [id number] Memoria 13:30:00 13:30:00 31 dmitry Donato 2022-09-29 2022-09-29 [facility] 1.2.840.114 [id number] Univers 10:45:00 11:00:00 Visit Kusum S HEALTH 350.1.13.10 it y of [place] 4.2.7.2.686 Solomon as SANDY?BLEA [id number] Nh shabbir [address] OFFICE [facility] 2022-09-29 2022-09-29 [facility] [id number] Univers 10:45:00 10:45:00 KUSUM ity [facility] 2022-09-19 2022-09-19 Telephone [facility] 1.2.333.261 [id number] Univers 00:00:00 00:00:00 Kusum S HEALTH 350.1.13.10 it y of [place] 4.2.7.2.686 Solomon as SANDY?BLEA [id number] [address] 2022-09-12 2022-09-12 Telephone [facility] [id number] [id number] Univers 00:00:00 00:00:00 Kusum S HEALTH 350.1.13.10 it y of [place] 4.2.7.2.686 Solomon as SANDY?BLEA [id number] Nh checo[address] 2022-09-05 2022-09-05 Orders Doctor ABISAI 1.2.840.114 [id number] Univers 00:00:00 00:00:00 Only Unassigned, BAR 350.1.13.10 ity of [place] [facility] 4.2.7.2.686 Solomon as [id number] [address] 2022-08-24 2022-08-24 Outpatient [facility] [id number] Univers 11:15:00 11:41:29 KUSUM y [facility] 2022-08-24 2022-08-24 Office [facility] 1.2.840.114 [id number] Univers 11:15:00 11:30:00 Visit [facility] HEALTH 350.1.13.10 it y of [place] 4.2.7.2.686 Solomon as SANDY?BLEA [id number] Me dical KNEY [address] [facility] OFFICE [facility] 2022-08-21 2022-08-21 Orders Doctor ABISAI 1.2.840.114 [id number] Univers 00:00:00 00:00:00 Only Unassigned, BAR 350.1.13.10 ity of [place] [facility] 4.2.7.2.686 Solomon as [id number] [address] 2022-08-17 2022-08-17 Outpatient R SID [facility] [id number] Univers 10:45:00 10:45:00 NICHOLE perez [facility] 2022-08-17 2022-08-17 [facility]phone [facility] 1.2.840.114 [id number] Univers 00:00:00 00:00:00 Nichole Neely ZAI Lab 350.1.13.10 it y of [place] 4.2.7.2.686 Solomon as SANDY?BLEA [id number] Nh shabbir FUNEZ 198 [facility] 2022-08-14 2022-08-14 Outpatient [facility] [id number] Univers 13:15:00 13:15:00 NICHOLE perez [facility] 2022-08-14 2022-08-14 Acid Adjuster Aime, [facility] Lab Main [facility] 1.2.8 40.114 [id number] Univers 08:15:00 08:30:00 Visit Nichole Lau 350.1.13.10 ity of [place].2.7.2.686 [place] PROFESS[place] [id number] Nh shabbir [facility] 353 [facility] 2022-08-14 2022-08-14 Outpatient [facility] [id number] Univers 08:15:00 08:15:00 NICHOLE perez [facility] 2022-08-10 2022-08-10 Outpatient ERRALEIGHON_R [facility] 1278 [place] 00:00:00 00:00:00 0[facility] 2022-08-10 2022-08-10 Telephone [facility] 1.2.840.114 [id number] Univers 00:00:00 00:00:00 Nichole Neely HEALTH 350.1.13.10 [facility] 4.2.7.2.686 Solomon as SANDY?BLEA [id number] Nh shabbir FUNEZ [address] [facility] OFFICE [facility] 2022-08-10 2022-08-10 Orders Doctor ABISAI 1.2.840.114 [id number] Univers 00:00:00 00:00:00 Only Unassigned, BAR 350.1.13.10 ity of [place] [facility] 4.2.7.2.686 Solomon as [id number] [address] 2022-08-09 2022-08-09 Outpatient R SID [facility] [id number] Univers 13:00:00 13:31:36 NICHOLE ity of [facility] 2022-08-09 2022-08-09 Office [facility] 1.2.906.596 [id number] Univers 13:00:00 13:31:36 Visit Nichole MANJARREZ 350.1.13.10 it y of [place] 4.2.7.2.686 Solomon as SANDY?BLEA [id number] Nh shabbir [address] OFFICE [facility] 2022-07-24 2022-07-24 Orders Doctor ABISAI 1.2.840.114 [id number] Univers 00:00:00 00:00:00 Only Unassigned, BAR 350.1.13.10 ity of [place] [facility] 4.2.7.2.686 Solomon as [id number] [address] 2022-07-12 2022-07-12 Telephone Tara VTMARIO 1.2.046.783 [id number] Univers 00:00:00 00:00:00 Kusum S HEALTH 350.1.13.10 it y of [place] 4.2.7.2.686 Solomon as SANDY?BLEA [id number] Nh checo[address] OFFICE [facility] 2022-07-10 2022-07-10 (TEL) [facility] [id number] Co mmon 00:00:00 00:00:00 [facility] 2022-06-23 2022-06-23 Telephone [facility] [id number] [id number] Univers 00:00:00 00:00:00 Kusum S HEALTH 350.1.13.10 it y [facility] 4.2.7.2.686 Solomon as SANDY?BLEA [id number] Nh shabbir FUNEZ [address] [facility] OFFICE [facility] 2022-06-20 2022-06-20 Telephone [facility] 1.2.840.114 [id number] Univers 00:00:00 00:00:00 Nichole L HEALTH 350.1.13.10 it y of [place] 4.2.7.2.686 Solomon as SANDY?BLEA [id number] Nh shabbir FUNEZ 198 [place] MEDICAL OFFICE [facility] 2022-06-14 2022-06-14 Orders Doctor ABISAI 1.2.840.114 [id number] Univers 00:00:00 00:00:00 Only Unassigned, BAR 350.1.13.10 ity of [place] [facility] 4.2.7.2.686 Solomon as [id number] [facility] 009 [place] 2022-06-13 2022-06-13 Telephone [facility] 1.2.975.273 [id number] Univers 00:00:00 00:00:00 Kusum Copeland HEALTH 350.1.13.10 it y [facility] 4.2.7.2.686 Solomon as SANDY?BLEA [id number] Nh shabbir FUNEZ 198 [facility] 2022-06-06 2022-06-06 Emergency [facility] 1.2.479.269 [id number] Univers 15:32:00 16:14:00 Katty S DENYS 350.1.13.10 i ty of [place].2.686 [place] [id number] [facility] 084 [place] 2022-06-06 2022-06-06 Outpatient Reena PACHECO [facility] [id number] Univers 13:41:07 15:31:00 [facility] 2022-06-06 Outpatient Reena [facility] ERT [id number] Univers 13:41:07 15:31:00 [facility] 2022-06-06 2022-06-06 [facility] 1.2.840.114 [id number] Univers 13:41:07 15:31:00 Encounter Kusum MCFARLANE 350.1.13.10 ity of [place] 4.2.7.2.686 [place] [facility] [id number] [facility] 804 [place] 2022-06-06 2022-06-06 Orders Doctor ABISAI 1.2.840.114 [id number] Univers 00:00:00 00:00:00 Only Unassigned, BAR 350.1.13.10 ity of [place] [facility] 4.2.7.2.686 Solomon as [id number] [address] 2022-05-24 2022-05-24 Outpatient [facility] [id number] Univers 15:08:06 23:59:00 KUSUM itkatrina of [facility] 2022-05-24 2022-05-24 Office Tara [facility] 1.2.840.114 [id number] Univers 15:00:00 15:49:56 Visit Kusum MANJARREZ 350.1.13.10 it y of [place] 4.2.7.2.686 Solomon as SANDY?BLEA [id number] [address] OFFICE [facility] 2022-05-11 2022-05-11 Telephone [facility] 1.2.840.114 [id number] Univers 00:00:00 00:00:00 Nichole Neely HEALTH 350.1.13.10 it y of [place] 4.2.7.2.686 Solomon as SANDY?BLEA [id number] Nh checodemetra [address] OFFICE [facility] 2022-05-10 2022-05-10 Orders Doctor BARONE 1.2.840.114 [id number] Univers 00:00:00 00:00:00 Only Unassigned, BAR 350.1.13.10 ity of [place] [facility] 4.2.7.2.686 Solomon as [id number] [address] 2022-05-03 2022-05-03 OFFICE [facility] [id number] Co mmon 00:00:00 00:00:00 VISIT Spirit ESTAB PT - CHI LEVEL 4 [facility] 2022-04-04 2022-04-04 Orders Doctor BARONE 1.2.840.114 [id number] Univers 00:00:00 00:00:00 Only Unassigned, BAR 350.1.13.10 ity of [place] [facility] 4.2.7.2.686 Solomon as [id number] [facility] [address] 2022-03-27 2022-03-27 Transition DAVE Lowery 1.2.840.114 [id number] Univers 00:00:00 00:00:00 of Care Karenlindsey PALOMO 350.1.13.10 i ty of [place] [id number] [facility] [address] 2022-03-22 2022-03-24 Outpatient PRAKASH WALLER [facility] [id number] Univers 10:30:00 20:18:00 ity of [facility] 2022-03-22 2022-03-24 [facility] Christin Prakash RESHMA 1.2.840.114 [id number] Univers 10:30:00 20:18:00 Encounter Sesung BAR 350.1.13.10 ity of [facility] 4.2.7.2.686 Solomon as [id number] [facility] [address] 2022-03-24 2022-03-24 Surgery [facility] 1.2.840.114 [id number] Univers 14:05:00 15:11:00 [place] ICAL 350.1.13.10 it y of [place] 4.2.7.2.686 Solomon as BLDG [id number] [facility] [address] 2022-03-23 2022-03-23 Surgery [facility] 1.2.840.114 [id number] Univers 09:00:00 09:43:00 Dennissons ICAL 350.1.13.10 it y of [place] 4.2.7.2.686 Solomon as BLDG [id number] [facility] [address] 2022-03-08 2022-03-08 (TEL) [facility] [id number] Co mmon 00:00:00 00:00:00 [facility] 2022-03-08 2022-03-08 [facility] [id number] Co mmon 00:00:00 00:00:00 VISIT Magan HOBBS PT - CHI LEVEL 4 [facility] 2022-02-21 2022-02-21 Outpatient Reena TARA [facility] [id number] Univers 14:58:27 23:59:00 KUSUM perez [facility] 2022-02-21 2022-02-21 Outpatient Reena TARA [facility] [id number] Univers 14:00:00 15:28:39 KUSUM perez [facility] 2022-02-21 2022-02-21 [facility] 1.2.840.114 [id number] Univers 14:00:00 15:28:39 Visit Kusum ZAI Lab 350.1.13.10 it y of [place] 4.2.7.2.686 Solomon as SANDY?BLEA [id number] Nh checodemetra [facility] [address] [place] MEDICAL OFFICE [facility] 2022-02-09 2022-02-09 Outpatient Reena PACHECO [facility] [id number] Univers 16:00:00 16:00:00 KUSUM katrina [facility] 2022-01-31 2022-01-31 (TEL) STLMLC STLMLC [id number] Co mmon 00:00:00 00:00:00 [facility] 2022-01-20 2022-01-20 Outpatient Reena BAJWA [facility] [id number] Univers 18:06:07 23:59:00 ROXY katrina [facility] 2022-01-20 2022-01-20 [facility] 1.2.937.551 [id number] Univers 18:06:07 23:59:00 Encounter Roxy ZAI Lab 350.1.13.10 ity of [place] 4.2.7.2.686 Solomon as SANDY?BLEA [id number] Nh checodemetra FUNEZ [address] [place] MEDICAL OFFICE BUILDING 2022-01-20 2022-01-20 Urgent Flaviosukh Litonawaf [facility] 1.2.840.114 [id number] Univers 18:00:00 18:15:46 Care [place], Leon HEALTH 350.1.13.10 ity of [place] 4.2.7.2.686 Solomon as SANDY?BLEA [id number] Nh shabbir [address] MEDICAL OFFICE BUILDING 2022-01-13 2022-01-13 (TEL) STLMLC STLMLC [id number] Co mmon 00:00:00 00:00:00 [facility] 2022-01-12 2022-01-12 (TEL) STLMLC STLMLC [id number] Co mmon 00:00:00 00:00:00 [facility] 2022-01-11 2022-01-11 Outpatient R [facility] [id number] Univers 07:32:00 09:32:00 MEHRDAD Field [facility] 2022-01-11 2022-01-11 [facility] 1.2.840.114 [id number] Univers 07:32:00 09:32:00 Encounter Mehrdad field 350.1.13.10 ity of [place] SURGICAL [id number] [facility] [address] 2022-01-11 2022-01-11 Surgery [facility] 1.2.840.114 [id number] Univers 08:20:00 08:56:00 Mehrdad field 350.1.13.10 ity of [place] SURGICAL [id number] [facility] [address] 2022-01-10 2022-01-10 Laboratory Only, Adc Test [facility] 1.2.840. 114 [id number] Univers 08:45:00 09:00:00 Only Mehrdad Blair 350.1.1 3.10 ity of [place].2.7.2.[place] CAMPUS [id number] [facility] [address] 2022-01-10 2022-01-10 Outpatient R [facility] [id number] Univers 08:45:00 08:45:00 MEHRDAD Field [facility] 2022-01-10 2022-01-10 Orders Doctor BARONE 1.2.840.114 [id number] Univers 00:00:00 00:00:00 Only Unassigned, BAR 350.1.13.10 ity of [place] [facility] 4.2.7.2.686 Solomon as [phone] [place] [address] [address] 2021-12-07 2021-12-07 OFFICE STLMLC STLMLC [id number] Co mmon 00:00:00 00:00:00 VISIT [facility] PT - CHI LEVEL [address] [place] [address] 2021-11-24 2021-11-24 (TEL) STLMLC STLMLC [id number] Co mmon 00:00:00 00:00:00 [facility] 2021-11-11 2021-11-11 (TEL) STLMLC STLMLC [id number] Co mmon 00:00:00 00:00:00 [facility] 2021-11-08 2021-11-08 OFFICE STLMLC STLMLC [id number] Co mmon 00:00:00 00:00:00 VISIT [facility] PT - CHI [address] 2021-11-03 2021-11-03 NON-BILLAB STLMLC STLMLC [id number] Common 00:00:00 00:00:00 LE VISIT [facility] 2021-10-20 2021-10-20 NON-BILLAB STLMLC STLMLC [id number] Common 00:00:00 00:00:00 LE VISIT [facility] 2021-10-17 2021-10-18 Inpatient EM Anandramodarrelowen, [facility] [id number] [facility] 14:18:00 13:18:00 [place] 29 [facility] are [facility] 2021-10-13 2021-10-13 (TEL) STLMLC STLMLC [id number] Co mmon 00:00:00 00:00:00 [facility] 2021-10-11 2021-10-11 OFFICE STLMLC STLMLC [id number] Co mmon 00:00:00 00:00:00 VISIT [facility] PT - CHI LEVEL [address] [place] [address] 2021-09-12 2021-09-12 (TEL) STLMLC STLMLC [id number] Co mmon 00:00:00 00:00:00 [facility] 2021-09-02 2021-09-02 (TEL) STLMLC STLMLC [id number] Co mmon 00:00:00 00:00:00 [facility] 2021-09-02 2021-09-02 (TEL) STLMLC STLMLC [id number] Co mmon 00:00:00 00:00:00 [facility] 2021-09-02 2021-09-02 (TEL) STLMLC STLMLC [id number] Co mmon 00:00:00 00:00:00 [facility] 2021-08-31 2021-08-31 OFFICE STLMLC STLMLC [id number] Co mmon 00:00:00 00:00:00 VISIT [facility] PT - CHI LEVEL 4 [facility] 2021-08-25 2021-08-25 (TEL) STLMLC STLMLC [id number] Co mmon 00:00:00 00:00:00 [facility] CHI [facility] 2021-08-23 2021-08-23 OFFICE STLMLC STLMLC [id number] Co mmon 00:00:00 00:00:00 VISIT [facility] PT - CHI LEVEL 4 [facility] 2021-08-16 2021-08-16 OL DIG E/M STLMLC STLMLC [id number] Common 00:00:00 00:00:00 [facility] 11-20 Spir it MIN [facility] 2021-08-15 2021-08-15 (TEL) STLMLC STLMLC [id number] Co mmon 00:00:00 00:00:00 [facility] 2021-08-02 2021-08-02 Emergency X FLASH VIEIAR ERT [id number] Univers 12:57:00 18:07:00 KATTY perez [facility] 2021-08-02 2021-08-02 Emergency Lavell John [facility] 1.2.840. 114 [id number] Univers 12:57:00 18:07:00 Katty Vieira BAYAMON 350.1.13.10 [facility] 4.2.7.2.686 [facility] [id number] [facility] [address] 2021-07-27 2021-07-27 (TEL) STLMLC STLMLC [id number] Co mmon 00:00:00 00:00:00 Spirit - CHI [facility] 2021-07-07 2021-07-07 (TEL) STLMLC STLMLC [id number] Co mmon 00:00:00 00:00:00 Spirit - CHI [facility] 2021-07-06 2021-07-06 OFFICE STLMLC STLMLC [id number] Co mmon 00:00:00 00:00:00 VISIT Spirit ESTAB PT - CHI LEVEL 4 [facility] 2021-06-28 2021-06-28 Outpatient MHIE MHIE [id number] Memoria 16:00:00 16:00:00 30 l [place] 2021-06-28 2021-06-28 Outpatient MHIE MHIE [id number] Memoria 16:00:00 16:00:00 30 l [place] 2021-06-22 2021-06-22 OFFICE STLMLC STLMLC [id number] Co mmon 00:00:00 00:00:00 VISIT Spirit ESTAB PT - CHI LEVEL 4 [facility] 2021-06-02 2021-06-02 OFFICE STLMLC STLMLC [id number] Co mmon 00:00:00 00:00:00 VISIT [facility] ESTAB PT - CHI LEVEL 4 [facility] 2021-05-24 2021-05-24 Outpatient MHIE MHIE [id number] Memoria 15:30:00 15:30:00 29 l [place] 2021-05-24 2021-05-24 Outpatient MHIE MHIE [id number] Memoria 15:30:00 15:30:00 29 l Tan[place] 2021-05-18 2021-05-18 SUB ANNUAL STLMLC STLMLC [id number] Common 00:00:00 00:00:00 MCR Spirit WELLNESS - CHI VISIT [facility] 2021-05-09 2021-05-09 Emergency Singer [facility] 1.2.903.510 [id number] Univers 10:58:00 17:26:00 Lavell Mcfarlane 350.1.13.10 i ty of [place] [phone] [facility] [address] 2021-05-04 2021-05-04 Hospital [facility] 1.2.840.114 [id number] Univers 11:54:00 14:35:00 Encounter Mehrdad field 350.1.13.10 ity of [place] Surgical [id number] [facility] [address] 2021-05-04 2021-05-04 Surgery [facility] 1.2.840.114 [id number] Univers 13:25:00 13:57:00 Mehrdad field 350.1.13.10 ity of [place] Surgical [id number] [facility] [address]20 [address] 2021-05-03 2021-05-03 Laboratory Only, Adc Test [facility] 1.2.840. 114 [id number] Univers 08:07:19 08:22:19 Only Mehrdad Blair 350.1.1 3.10 ity of [place] [id number] [facility] [address] 2021-05-03 2021-05-03 Outpatient R [facility] [id number] Univers 07:45:00 07:45:00 MEHRDAD Field o f [facility] 2021-05-03 2021-05-03 Orders Doctor ABISAI 1.2.840.114 [id number] Univers 00:00:00 00:00:00 Only Unassigned, BAR 350.1.13.10 ity of [place] [facility] 4.2.7.2.686 Solomon as [id number] [facility] [address] 2021-04-20 2021-04-20 Outpatient STLMLC STLMLC [id number] Common 00:00:00 00:00:00 [facility] 2021-03-10 2021-03-10 Hospital Radiology [facility] 1.2.840.114 [id number] 10:47:03 23:59:00 Encounter [place] 350.1.13.10 [place] 4.2.7.2.686 [place] [id number] [id number] 2021-03-10 2021-03-10 Hospital Radiology [facility] 1.2.840.114 [id number] 10:45:00 10:46:00 Encounter [place] 350.1.13.10 [place] 4.2.7.2.686 [place] [id number] 2021-03-10 2021-03-10 Outpatient R RADIOLOGY [facility] [id number] Univers 00:00:00 00:00:00 ity [facility] 2021-03-08 2021-03-08 Urgent Celso [facility] 1.2.840.114 [id number] 20:00:13 20:20:13 Care [facility] 350.1.13.10 [place] 4.2.7.2.686 Professio [id number] nal [address] 2021-03-08 2021-03-08 Outpatient R GREEN, [facility] [id number] Univers 20:00:00 20:00:00 LEON [facility] 2021-02-24 2021-02-24 Outpatient STLMLC STLMLC [id number] Common 00:00:00 00:00:00 [facility] 2021-02-19 2021-02-19 Outpatient STLMLC STLMLC [id number] Common 00:00:00 00:00:00 [facility] 2021-02-18 2021-02-18 Outpatient STLMLC STLMLC [id number] Common 00:00:00 00:00:00 [facility] 2021-02-16 2021-02-16 Outpatient STLMLC STLMLC [id number] Common 00:00:00 00:00:00 [facility] 2021-01-31 2021-01-31 Transition Dave Lowery 1.2.840.114 [id number] 00:00:00 00:00:00 of Care Karen [place] 350.1.13.10 [place] 4.2.7.2.686 [id number] 2021-01-18 2021-01-28 [facility] Jona Davila [facility] 1.2.840.1 14 [id number] 21:13:00 14:30:00 Encounter Mauro Chinchilla [place] 350.1.13.10 FranciscoGomez barragan [place] 4.2.7.2.686 [place] [id number] 081 2021-01-25 2021-01-25 Anesthesia Tai Avalos [facility] 1.2.840.11 [id number] 08:49:00 09:30:00 Event Randell López [place] 350.1.13.10 [place] 4.2.7.2.686 Surgical [id number] [place] 020 2021-01-25 2021-01-25 Surgery [facility] 1.2.840.114 [id number] 08:33:00 09:08:00 [place] 350.1.13.10 [place] 4.2.7.2.686 Surgical [id number] [place] 020 2021-01-19 2021-01-19 Outpatient STLMLC STLMLC [id number] Common 00:00:00 00:00:00 [facility] 2021-01-14 2021-01-14 Outpatient MHIE MHIE [id number] Memoria 13:30:00 13:30:00 28 dmitry Donato 2021-01-14 2021-01-14 Outpatient MHIE MHIE [id number] Memoria 13:30:00 13:30:00 28 dmitry Donato 2020-12-31 2020-12-31 Outpatient STLMLC STLMLC [id number] Common 00:00:00 00:00:00 [facility] 2020-12-30 2020-12-30 Outpatient STLMLC STLMLC [id number] Common 00:00:00 00:00:00 [facility] 2020-12-20 2020-12-20 Outpatient STLMLC STLMLC [id number] Common 00:00:00 00:00:00 [facility] 2020-12-08 2020-12-08 Telephone Sid [facility] 1.2.840.114 [id number] 00:00:00 00:00:00 Nichole L [facility] 350.1.13.10 Surgical 4.2.7.2.686 Specialti [id number] es 198 [place] 2020-12-07 2020-12-07 Orders Doctor ABISAI 1.2.840.114 [id number] 00:00:00 00:00:00 Only Unassigned, BAR 350.1.13.10 [place] [facility] 4.2.7.2.686 [id number] 009 2020-12-06 2020-12-06 [facility] 1.2.119.438 [id number] 15:09:54 15:49:09 Visit Nichole [facility] 350.1.13.10 Surgical 4.2.7.2.686 Specialti [id number] es 198 [place] 2020-12-06 2020-12-06 [facility] [id number] Univers 15:00:00 15:00:00 [facility] 2020-11-26 2020-11-26 [facility] [id number] Univers 09:30:00 09:30:00 [facility] 2020-11-24 2020-11-24 Outpatient [facility] [id number] Univers 09:30:00 09:30:00 [facility] 2020-11-16 2020-11-16 Outpatient STLMLC STLMLC [id number] Common 00:00:00 00:00:00 [facility] 2020-11-11 2020-11-11 Outpatient Reena PACHECO [facility] [id number] Univers 11:15:00 11:15:00 [facility] 2020-11-09 2020-11-09 Outpatient [facility] [id number] Univers 13:45:00 13:45:00 [facility] 2020-11-09 2020-11-09 Outpatient [facility] [id number] Univers 00:00:00 00:00:00 [facility] 2020-11-08 2020-11-08 Outpatient Reena LAU, [facility] [id number] Univers 00:00:00 00:00:00 NICHOLE perez [facility] 2020-11-03 2020-11-03 Outpatient STLMLC STLMLC [id number] Common 00:00:00 00:00:00 [facility] 2020-10-25 2020-10-25 Outpatient STLMLC STLMLC [id number] Common 00:00:00 00:00:00 [facility] 2020-10-22 2020-10-22 Outpatient STLMLC STLMLC [id number] Common 00:00:00 00:00:00 [facility] 2020-10-20 2020-10-20 Outpatient STLMLC STLMLC [id number] Common 00:00:00 00:00:00 [facility] 2020-10-14 2020-10-14 Outpatient MHIE MHIE [id number] Memoria 15:00:00 15:00:00 27 [place] 2020-10-14 2020-10-14 Outpatient MHIE MHIE [id number] Memoria 15:00:00 15:00:00 27 [place] 2020-10-14 2020-10-14 Outpatient MHIE MHIE [id number] Memoria 14:15:00 14:15:00 25 dmitry [place] 2020-10-14 2020-10-14 Outpatient MHIE MHIE [id number] Memoria 14:15:00 14:15:00 25 dmitry [place] 2020-10-12 2020-10-12 Outpatient STLMLC STLMLC [id number] Common 00:00:00 00:00:00 [facility] 2020-09-15 2020-09-15 Outpatient STLMLC STLMLC [id number] Common 00:00:00 00:00:00 [facility] 2020-09-10 2020-09-10 Outpatient Reena JORDAN [facility] [id number] Univers 19:40:00 19:40:00 AMANDA vincent [facility] 2020-08-24 2020-08-24 Outpatient MHIE MHIE [id number] Memoria 13:45:00 13:45:00 26 l Tan[place] 2020-08-24 2020-08-24 Outpatient MHIE MHIE [id number] Memoria 13:45:00 13:45:00 26 l Tan[place] 2020-07-22 2020-07-22 Outpatient MHIE MHIE [id number] Memoria 14:30:00 14:30:00 24 l [place] 2020-07-22 2020-07-22 Outpatient MHIE MHIE [id number] Memoria 14:30:00 14:30:00 24 l [place] 2020-07-12 2020-07-12 Outpatient STLMLC STLMLC [id number] Common 00:00:00 00:00:00 [facility] 2020-06-11 2020-06-11 Outpatient STLMLC STLMLC [id number] Common 00:00:00 00:00:00 [facility] 2020-06-01 2020-06-01 Outpatient Reena MINH [facility] [id number] Univers 11:45:00 11:45:00 MEHRDAD Field [facility] 2020-05-26 2020-05-26 Outpatient STLMLC STLMLC [id number] Common 00:00:00 00:00:00 [facility] 2020-05-11 2020-05-11 Outpatient STLMLC STLMLC [id number] Common 00:00:00 00:00:00 [facility] 2020-04-16 2020-04-16 Outpatient Brazmelonie Faitht [id number] Common 15:00:00 15:00:00 [facility] 2020-04-16 2020-04-16 Outpatient STLMLC STLMLC [id number] Common 00:00:00 00:00:00 [facility] 2020-04-13 2020-04-13 Outpatient [facility] [id number] Common 08:51:00 08:51:00 [facility] 2020-04-08 2020-04-08 Outpatient MHIE MHIE [id number] Memoria 13:45:00 13:45:00 22 l [place] 2020-04-08 2020-04-08 Outpatient MHIE MHIE [id number] Memoria 13:45:00 13:45:00 22 l [place] 2020-03-18 2020-03-18 Outpatient MHIE MHIE [id number] Memoria 15:00:00 15:00:00 19 l [place] 2020-03-18 2020-03-18 Outpatient MHIE MHIE [id number] Memoria 15:00:00 15:00:00 21 l [place] 2020-03-18 2020-03-18 Outpatient MHIE MHIE [id number] Memoria 15:00:00 15:00:00 20 l [place] 2020-03-18 2020-03-18 Outpatient MHIE MHIE [id number] Memoria 15:00:00 15:00:00 19 l [place] 2020-03-18 2020-03-18 Outpatient MHIE MHIE [id number] Memoria 15:00:00 15:00:00 21 l [place] 2020-03-18 2020-03-18 Outpatient MHIE MHIE [id number] Memoria 15:00:00 15:00:00 20 l [place] 2020-03-11 2020-03-11 Outpatient MHIE MHIE [id number] Memoria 16:15:00 16:15:00 23 l [place] 2020-03-11 2020-03-11 Outpatient MHIE MHIE [id number] Memoria 16:15:00 16:15:00 23 l [place] 2020-02-27 2020-02-27 Outpatient [facility] [id number] Common 14:00:00 14:00:00 t [employer] [facility] it Drive [facility] 2020-02-23 2020-02-23 Outpatient [facility] [id number] Common 13:12:00 13:12:[address] [facility] it Road [facility] 2020-02-18 2020-02-18 Outpatient [facility] [id number] Common 09:08:00 09:08:[address] [facility] it Road [facility] 2020-02-16 2020-02-16 Outpatient [facility] [id number] Common 18:34:00 18:34:[address] [facility] [address] [facility] 2020-02-11 2020-02-11 Outpatient [facility] [id number] Common 13:20:00 13:20:[address] [facility] [address] [facility] 2020-01-06 2020-01-06 Outpatient [facility] [id number] Common 18:46:00 18:46:[address] [facility] [address] [facility] 2019-12-22 2019-12-22 Outpatient [facility] [id number] Common 14:00:00 14:00:00 [facility] 2019-12-17 2019-12-17 Outpatient MHIE MHIE [id number] Memoria 15:45:00 15:45:00 17 l [place] 2019-12-17 2019-12-17 Outpatient MHIE MHIE [id number] Memoria 15:45:00 15:45:00 17 l [place] 2019-12-05 2019-12-05 Outpatient MHIE MHIE [id number] Memoria 16:00:00 16:00:00 18 l [place] 2019-12-05 2019-12-05 Outpatient MHIE MHIE [id number] Memoria 16:00:00 16:00:00 18 l [place] 2019-12-05 2019-12-05 Outpatient [facility] [id number] Common 10:40:00 10:40:[address] [facility] [address] [facility] 2019-11-28 2019-11-28 Outpatient [facility] [id number] Common 11:00:00 11:00:[address] [facility] [address] [facility] 2019-11-19 2019-11-19 Outpatient MHIE MHIE [id number] Memoria 08:15:00 08:15:00 16 l [place] 2019-11-19 2019-11-19 Outpatient MHIE MHIE [id number] Memoria 08:15:00 08:15:00 16 l [place] 2019-11-18 2019-11-18 Outpatient MHIE TONIA [id number] Memoria 10:15:00 10:15:00 15 l [place] 2019-11-18 2019-11-18 Outpatient MHIE TONIA [id number] Memoria 10:15:00 10:15:00 15 l [place] 2019-11-10 2019-11-10 Outpatient [facility] [id number] Common 15:55:00 15:55:[address] [facility] [address] [facility] 2019-11-05 2019-11-05 Outpatient [facility] [id number] Common 18:33:00 18:33:[address] [facility] [address] [facility] 2019-10-28 2019-10-28 Outpatient [facility] [id number] Common 11:08:00 11:08:[address] [facility] [address] [facility] 2019-10-27 2019-10-27 Outpatient [facility] [id number] Common 14:31:00 14:31:[address] [facility] [address] [facility] 2019-10-13 2019-10-13 Outpatient [facility] [id number] Common 09:00:00 09:00:[address] [facility] [address] [facility] 2019-09-29 2019-09-29 Outpatient [facility] [id number] Common 11:30:00 11:30:[address] [facility] [address] [facility] 2019-09-26 2019-09-26 Outpatient MHIE TONIA [id number] Memoria 09:15:00 09:15:00 14 l [place] 2019-09-26 2019-09-26 Outpatient MHIE MHIE [id number] Memoria 09:15:00 09:15:00 14 l [place] 2019-09-18 2019-09-18 Outpatient [facility] [id number] Common 14:40:00 14:40:[address] Sp[address] [facility] 2019-08-15 2019-08-15 Outpatient MHIE TONIA [id number] Memoria 13:30:00 13:30:00 13 dmitry Donato 2019-08-15 2019-08-15 Outpatient MHIE MHIE [id number] Memoria 13:30:00 13:30:00 13 dmitry Donato 2019-08-14 2019-08-14 Outpatient [facility] [id number] Common 14:18:00 14:18:[address] [facility] [address] [facility] 2019-08-13 2019-08-13 Outpatient [facility] [id number] Common 11:00:00 11:00:[address] [facility] [address] [facility] 2019-07-18 2019-07-18 [facility] [id number] Common 09:00:00 09:00:[address] [facility] [address] [facility] 2019-07-08 2019-07-08 Outpatient MHIE TONIA [id number] Memoria 10:00:00 10:00:00 11 dmitry Donato 2019-07-08 2019-07-08 Outpatient THELMAIE TONIA [id number] Memoria 10:00:00 10:00:00 11 dmitry Donato 2019-06-23 2019-06-23 [facility] [id number] Common 10:40:00 10:40:[address] [facility] [address] [facility] 2019-06-09 2019-06-09 [facility] [id number] Common 12:17:00 12:17:[address] [facility] [address] [facility] 2019-06-09 2019-06-09 [facility] [id number] Common 08:20:00 08:20:[address] [facility] [address] [facility] 2019-05-30 2019-05-30 [facility] [id number] Common 08:00:00 08:00:[address] [facility] [address] [facility] 2019-05-23 2019-05-23 Outpatient MHIE MHIE [id number] Memoria 09:15:00 09:15:00 10 dmitry Donato 2019-05-23 2019-05-23 Outpatient MHIE MHIE [id number] Memoria 09:15:00 09:15:00 10 dmitry Donato 2019-05-16 2019-05-16 Outpatient MHIE MHIE [id number] Memoria 08:30:00 08:30:00 12 dmitry Donato 2019-05-16 2019-05-16 Outpatient MHIE MHIE [id number] Memoria 08:30:00 08:30:00 12 dmitry Tanmay 2019-04-30 2019-04-30 Outpatient MHIE MHIE [id number] Memoria 09:15:00 09:15:00 09 dmitry FunkTanmay 2019-04-30 2019-04-30 Outpatient MHIE MHIE [id number] Memoria 09:15:00 09:15:00 09 dmitry Tanmay 2019-04-04 2019-04-04 Outpatient MHIE MHIE [id number] Memoria 09:30:00 09:30:00 08 dmitry Tanmay 2019-04-04 2019-04-04 Outpatient MHIE MHIE [id number] Memoria 09:30:00 09:30:00 08 dmitry Donato 2019-04-03 2019-04-03 Outpatient [facility] [id number] Common 09:00:00 09:00:00 t [facility] 2019-03-24 2019-03-24 Outpatient Brazmelonie Faith[facility] [id number] Common 10:15:00 10:15:00 t Specialty/U Sp coretta Specialty rology - [facility] 2019-03-04 2019-03-04 Outpatient [facility] [id number] Common 11:00:00 11:00:00 t Specialty/U Sp coretta Specialty rology - [facility] 2019-02-21 2019-02-21 Outpatient [facility] 26 [id number] Common 13:45:00 13:45:00 t Specialty/U Sp coretta Specialty rology - [facility] 2019-02-18 2019-02-18 Outpatient [facility] [id number] Common 15:42:00 15:42:[address] [facility] [address] [facility] 2019-02-11 2019-02-11 Outpatient [facility] [id number] Common 13:20:00 13:20:[address] [facility] [address] [facility] 2018-12-27 2018-12-27 Outpatient MHIE THELMAIE [id number] Memoria 09:30:00 09:30:00 07 dmitry Donato 2018-12-27 2018-12-27 Outpatient MHIE MHIE [id number] Memoria 09:30:00 09:30:00 07 dmitry Donato 2018-11-21 2018-11-21 Outpatient MHIE MHIE [id number] Memoria 15:00:00 15:00:00 06 dmitry Donato 2018-11-21 2018-11-21 Outpatient MHIE MHIE [id number] Memoria 15:00:00 15:00:00 06 dmitry Donato 2018-11-11 2018-11-11 [facility]patient [facility] [id number] Common 09:20:00 09:20:[address] [facility] [address] [facility] 2018-10-01 2018-10-01 Outpatient [facility] [id number] Common 15:30:00 15:30:[address] [facility] [address] [facility] 2018-09-06 2018-09-06 [facility]patient [facility] [id number] Common 10:00:00 10:00:[address] [facility] [address] [facility] 2018-08-22 2018-08-22 Outpatient MHIE THELMAIE [id number] Memoria 15:15:00 15:15:00 05 dmitry Donato 2018-08-22 2018-08-22 Outpatient MHIE MHIE [id number] Memoria 15:15:00 15:15:00 05 dmitry Donato 2018-06-13 2018-06-13 Outpatient MHIE MHIE [id number] Memoria 14:00:00 14:00:00 04 dmitry Donato 2018-06-13 2018-06-13 Outpatient MHIE MHIE [id number] Memoria 14:00:00 14:00:00 04 dmitry Donato 2018-05-21 2018-05-21 Outpatient [facility] [id number] Common 08:37:00 08:37:[address] [facility] [address] [facility] 2018-05-09 2018-05-09 Outpatient [facility] [id number] Common 08:30:00 08:30:[address] [facility] [address] [facility] 2018-03-20 2018-03-20 Outpatient THELMAIE TONIA [id number] Memoria 10:45:00 10:45:00 02 dmitry Donato 2018-03-20 2018-03-20 Outpatient TONIA RANDALL [id number] Memoria 10:45:00 10:45:00 02 dmitry Tanmay 2018-03-13 2018-03-13 Outpatient TONIA RANDALL [id number] Memoria 14:00:00 14:00:00 03 dmitry Tanmay 2018-03-13 2018-03-13 Outpatient TONIA RANDALL [id number] Memoria 14:00:00 14:00:00 03 dmitry Donato 2017-11-14 2017-11-14 Outpatient TONIA RANDALL [id number] Memoria 10:15:00 10:15:00 01 dmitry Donato 2017-11-14 2017-11-14 Outpatient TONIA RANDALL [id number] Memoria 10:15:00 10:15:00 01 dmitry Donato Results Test Description Test Time Test Comments Results Result Comments Source POCT GLUCOSE (AUTOMATED) 2022-03-24 21:07:00 Test Item Value Reference Range Interpretation Comme nts POCT GLU (test code = 3361049376) 86 mg/dL 70-110 Lab Interpretation (test code = 40365-1) [facility]00 Test Item Value Reference Range Interpretation Comments POCT GLU (test code = 7997303750) 86 mg/dL 70-110 Lab Interpretation (test code = Normal 51664-5) [facility] [id number] 16:43:01 Test Item Value Reference Range Interpretation Comments Case Report (test Surgical Pathology ? ? ? code = 5247527537) ?Case: [id number] ? Authorizing Provider: ?Earnest Nunez MD ? ? ?Collected: ? 03/23/2022 0936 ?Ordering Location: ? ? GI Endoscopy OR Department Received: ?03/23/2022 1143 ?Pathologist: ? Luisana Willard MD PHD ?Specimen: ? ?STOMACH, 1. Antral erythermia biopsy, eval for H. Pylori and intestinal metaplasia ? Final Diagnosis c6hhkMHsMAVwz5hnCGObrAAoE (test code = zEwMzNcZnRuYmpcdWMxIHtccn 7893250748) KkYSbkyLrvXEAdCHGwDN6rtTc nzZv6yXklYNLsoqH6sWTjZLbp s0ynJUC3m8sfwccwBERsBNzgS q5tsPXleCqzVmGcELGdZVd2qT 25FQTdxR8voHTzRUe6FTKvmUE uxpBqZpIvONQozWOgtUH3UOCt NO1hugqnRXlwODygRNZcsuK7A WJyqARkR8DgGWCwBL9yxwdjTF L1ALxoMVXiWMP7BhCuGLZgk0P vtwj6VuZyoGSkEYhbdFSnxkxs bzRlDJVargDADmXIXW8AJUETF CCYHN9WG6mcsKLvHMVcZU8iU2 AISPCGSvLDROHFA6NmE6aFSNE HLBCTMHfHAKOJVCCCLo2AXKGX WVxwYXIgICAgLSBOTyBJTlRFU 9FCRtXFFM0CCCFSGMXBUHCpN8 LbXXjNXYrZP6oCAFsCSO7INUK ZMJBvkUKlKIOgUX1hOs6jYT0s RGjRS4DOAPyND6KiI2VXKC6NN 33HNVtYDL1HSTJGYTTlcOYxSI WnucQskCEkQMuutMufZWcab13 rcywgTUQgIDgvMTkvMjAyMiAg DNK3TdDvAY9grIRcNLPfclTjn UIlsPecebXkEOydg7ObN2QgNi AwMFxhbnNpXGRlZmxhbmcxMDM tNTD7btTfBXWuODsfSSGaMMap Qj4iaTRdpFbeFpTkCCFzd6nab zTKKXmpUrMmP057ICTnKPpmo2 vzf1DyVMPfjHDwc1W6VOTIldo ofSc9v4kbUxJgIiC2eMFoVRlq I2wqarJmdCBpJ1KjuKAaoIp7o MmtT18oi7F9PhsxE3dhPQAqJZ CrR8XnSR5rWPPrMgr3JHF9OBI 3GCXmPMHbZ5ShTN0lSDAmjDFi THr9b2hqiZflBZNfJPJ5x5jfI JlpunK1YX1dmt8jiZh5w6eheb ZbHEOmFDYyoAFZPSEaY2FhcFr jAy1biHa7sRkfNnjeILL2Nnz8 RX1uvw99vvm9yUhjUYAdjgfwW mG0HGlsUJHttwvzXJc6NBbePB GmmMI0YOVofNVcX4AbYLQyNI1 eazz9IMF1NFecVNKmZtA6IJBb qRLfDXYyqXnxSYblq053SJL3W sAnNX3dC7Kst9U6kR0vaODlSU AhlVWmXjLkMSHakv7btAYsMYn fk2WvKQP2lhR5fSHnhOJbOYHl CX72Goihf7BnPllhPVI4SMDvc jYul4Zqe1ckWbCmndHaQ1fmL5 ZkSHWfMXQsYMImSyHqcbDno7N ez1NkxEEfyTn0t1lxDREmBYEw cPrgr9jzEUQ7QZWbI6V7jFIlo 6fnFXxzTUAtgRG9mcN4IPEjcO LiL1ZugG0oVMFuHO3dkvw3h5r sAVS7TIawVKCuDsJ6hxA8UMIr vKGoGPJklFtmBTbwz222IAL6L kKvKMFew0StA2EehQitR49yuI bhW90uAVBumJlebI2bgAiztJ1 cZjBcZnMyNFxxbFxwbGFpblxm MVxmczIwXGxhbmcxMDMzXGhpY 7ksUgPlLXWqmTjeKFvoj9JuWW YxXGNmMlxmczIwXHBhciBJIGh rfvJgqHLao12aBVaakNAvKMRr NPqnABLmrNkws6TyC2ezUF0oC 4EbyJDcptSnarEbWOegDBYmn6 i0xYLbsDpma0FucILfZC48qcM qKQOuDTC5DVKgb9nfUP93acuc VuElmZ37yzKzgdPvMGKkb4vmA 2khzGHuf2Erx1LwxfQzLOqqf6 RfYV7buQBmmoaiwXK1YZXnzDR tbjPxiqI3vVdoFZPyaW9qaM2o lHothS0qCrUuJbFbNVmbOK9yH BNqH5zqaRMgPXVnRXOfT9oxVu CabE2acSlgEspmfsO2MRTiex1 9 Clinical Information Chris Joseph is a (test code = 61 year old female [id number]) Gastrointestinal hemorrhage, unspecified gastrointestinal hemorrhage type [K92.2]: 1. Antral erythermia biopsy, eval for H. Pylori and interstinal metaplasia Gross Description f2jkxVNdEPHdqAJJGJPzUJDhJ (test code = Z3xpMxuvPi8rFikTEFmkvW2iG [id number]) MgLCcrd1sbLYV6w0pesbQCXlf jJEGeYSbwIZPikkdkAdM5CFhe DRZppekaTMd3OGcbOENubNL2B VKcqGOcM7JoOGFsNZ1uewf9VT K4RPpbAEQnJmS5DOUlShYuGbc yRZa4XFZvrcN6Miy4KGLeZKCw rTTzx0B3PKbusdnkVPGvkYJyY 955TFley4XwdRVxHLjxeCFmVR NHGwbdHsygjOfxy6TkxWCwQXo rRMHtCIVjXTvvwvshMYh0SOLc ZGzoqGWeTS0ksXitPybchBkzw 2VjdCBcXGlkIDUxMDAyIFxcZG PhOE3YYgGmCYSrOTg8SMaoMMh 4RAx9GK8QPmZpFUYzHHcmKKv0 ZiJwQEs9RIvvQD0ZMOZ0FEO4A tH7DTRaJFIeFRNlQBf6GBFeTQ xmIEFyaWFsIFxcZnMgMTAgXFx qjAHqDJ4bwPzzvVRtiehxufSe ARTBZQRGVTGJBZDvyJYuNS3AK CCtGKkuLHAhcDYNCHH3IY6cEE ANClxsdHJwYXJcbGluMFxyaW4 vCS9YYRg8kuKbURHqIjRzV8Tc E8giDK8nNDSpblOmNGEtpAVhR AZixkNyy3MbUUatsgHyEFGtqY VkIHdpdGggdGhlIHBhdGllbnQ alfUeCC9yUCWAFTGinV1rIRGc ZbQ7j13jA8ulITDciJRpjFWyr vl0wIAxVEXqkJ3tt2irSFY1IR dxEb7xDCvpLXK9lV7ytOWnckG aqU27WDQ1tI8isVSwWKAnaOcl q8niZkCxjyUaH05rz4gsoVPke 6LmHbT2VC6jzMlmfyEnvdYrD5 KcKCAps22veCE5tTAwoKNfAkU hI07rdkEgKMctYW0yhC5lREOa v85wRS7nSWVzXZGpEQRsyJKxs rEewjXonSOytGEdiC2butDxc3 4jCMJmKDJ5ICRbPAS6GWVoVIV dtLFrhdRfK5dcVApcoJFfUqXS oBVql5GcW7ugFE8roCQeYrfxb RHxEYYwnBwtf0DdxFJmKONzp6 WuoBMoOPakTJ2dQTS4Hj5nqLI uMABbndM8f4WqGIqeOFKzJgnm YXQgSEwxfBCnFW8DJWYfhYVIQ Cfie5WkZGxzLKAyHERZI2VxJV wdMBWjI88ru4KWt8TrMBUoz7x rmZxuc1UyxQOjFPeiTBHxcNJf QEonmO6fPcCjj5myiXo9ZFoga yH5IQQbeh6avRadbO9wXCgid3 zcFOU2EQGnkTUefGXbEOieuJw xcX0vWoFnQqj8QIaiJVNrG4Ul E1HxkzS8LSAkPRlfDOBmDIChQ Qp9 Disclaimer (test p6hqwWLlTHFat2yuLAAmdOOsF code = [id number]) zEwMzNcZnRuYmpcdWMxIHtccn DvGVtgy8MfR1NhNdKrWWfrkoW aFBElKjptasltFNOaBGZ1sdAa JSLdEIucEJDaUDesFz1cwUHmi SwkZlJnAEZdq6rcfpKTFYybEu QxU084GNMyFZxtb5gnk5UvKCH xqTAcd5Z3ZTFAyoojvYn3lMph E50wh5O7FqnfZ8uiZZDbAXOpI 5DpBY9wUWJoMwg4NNY5BTS4EA UsSGGaV7SrRW7hVCIueFQnFAs 7d9suzSiiQQDkIDW1w0gxUUkm azObNU4gbf7igBc5v0hcieWfE AEeOFKctNYERXLgD3HluGfjFy 9wtSs8uAtjPlvaNCQ8Pib8TD8 xxw15wxj3ySwkEGEqplgeDbL2 ONlsMWIfcreqQCe8FPaqIGZik OA8ZBWqkDFiX6KgLHQqKZ7ayb t8FRI2UWlgIGBlKaV5ATAgmAJ vITLdxAbmJArfg382SJU9ZjLl MG0vB8Ouw7Q5xR0cuDCsMSYhz UTnIyRePYIynj5niQSySYyab1 CgQZR6snB5vIOfjVJgBTBnNR2 3Disje2AkMmjzw1CzB26ccQQ5 BRxge0uwTF1eXmH9ftPuXJxzm 6oheD9cGpL9GYqdFQ2cYY7eZK YbiP9vgpdnPMCvCgJblngnHKT wvOzbajXoCw4zbKkpYMO4WPop M3omyJ2jEzJ3IDvuG4rqjU3rE Fp0UCgvbAQ6QDTaeR9sDK7xko htz9piXFdvCHtbBRTfouL8rjA 1TJDxgYPfA7IkdN0aLNCfEP8j ydqzs4aiPCT4LUggAPWcVZU9K lInOZTgx9Kmeop3DuNtq7PxoJ PyCSxiN57rj649UECkvbAkU9z wbGFpblxwbGFpblxmMFxmczI0 IXGdazLun2JfNQLfARM6XDttJ VixiSPiJVJdmYvun7vbR9RocV FyXHBsYWluXGYxXGZzMjBcbGF uZzEwMzNcaGljaFxmMVxkYmNo EWUyPKecX0itRaInE3ShVWLdQ dGdyFExF6bgFXmydjUjRHKvwq PxoTT1QOhvI2i6STKomsUerQc 2deGdObOuSCOdEMR0IBgnuDDg XBIgo6JkcgfwnEKmYc1noZIeE ZNrvM8uRZEiJGCzZGvzBE3zcF k7FBHWiFDvhDSdSeLULILnWC7 7lsZmHWJIfqhzg1Z9VFykYEUk b9SdsMTdE2xmd4PtDIJis55nR O4ar9G9k3pqBUR7SE3ao0CmHA ZrbBHhjEPpHFFyc5Snkkvjy9Y mEHJigkDpf1WcGWXmwlVlyWUw ZHIvleKcqj2wgdAlWQUgGOWiN 9LzcmvchNernxOyCTUmlz2zpu ElVEC7SELJOGXkYQVea6PujF1 fgSRLUFL0eDGgsi1zfnDAjDWm HRGpqg62XMLtMA0oL0miVOFtY TLdryAhnZUih1IsKJSbzEY4nW KyID2YOdGNa29gACBjOSMPdtP sZXSirEujiIX6ylP6yJ3hCIpT REEpLlx+MKYsCYLBALPcWU5zu yHxn1QfizDhrRpxNWPoqXXue2 LjxOSwn2JsaUhcg1BflHKlvED cMM3yGVOvmdnjUYDcIUBLJcOR MBHcmuF8j6ZmDWTqXJMmABK6z Mewomb8PNBfiT4tCLCkS6ikzo krXCgrYOKuq9TweU2iuKVNrVP by2NqzMQrnQXExJOiZE9wixDo MUgUNTuAGUN7ukUtNMKjn3YzA ZiiJ7skS92fuOtyjXw4gRN4ZX R7cJ7jOqh+IFxwYXJccGFyIEF ykOGmxZTiXJShfAbssiOgM4Bp hxIwiP3pwYUoovOxMJ0jHC3gL 3E2iZXaONZrcjBpf2fsGOrukp AlIpZsryNaNDXxTGyrHEJrk0L pXZunMCN2AWrupkAuboNarYIk zhgeKALREHLNgOVshEBzRZK9L FahtcTigrOfMF1waA4gsNekdS 6vuOEhbTG3mvxsFVVuSMStnEp bGLLhWU3hyXHiDBCuqkFCwIbx eFLqlM7mF0AyOVYbWFMqay8yU FKshC9aAZlic8DkuiixCXHcIN KpPTYethAlve8jVXJveRHIVN9 OXOqfeCZpm2IadxMhG6nEVCY9 NUQwNjYwMjgxKSBleGNlcHQgY ILyvr22SWLjaH1dfOgeFWIddT 1vgL4deRurtQ4jLvRtWjQyQVk mZE1iPNHoD8cjcFYlCYJnHEWc X3bxSdRyoG4imSrvLCbqCoBtE uHsJHunOXA3jX== Embedded Images (test code = [id number]) [facility] [id number] 16:43:01 Test Item Value Reference Range Interpretation Comments Case Report (test Surgical Pathology ? ? ? code = 5525699310) ?Case: [id number] ? Authorizing Provider: ?Earnest Nunez MD ? ? ?Collected: ? 03/23/2022 0936 ?Ordering Location: ? ? GI Endoscopy OR Department Received: ?03/23/2022 1143 ?Pathologist: ? Luisana Willard MD PHD ?Specimen: ? ?STOMACH, 1. Antral erythermia biopsy, eval for H. Pylori and intestinal metaplasia ? Final Diagnosis v1egfNCiATZkb5kzADKisKFbY (test code = zEwMzNcZnRuYmpcdWMxIHtccn 2821251469) SlJCnkyDhbAJDwGQNyUO9wdYv ldSb9gGgcVQFhgtC0uKDnHUux u8bgZFM6a8rczrwtVJGjSUorX m3jyVJzzLqfCoYeKUYmSAs6lO 16OALipK0dfKCjLZx0AQCohHD pnyHcIuIyYVLkzULwjMT1ZHYt PP0tkoxtOEifAQinLYRxtzE5D OZtcEJwR8PlKWFmCE0ccimyWJ I6OZlcHFRhPRB8NkTaNXKcv2H oyjl8ZbFviYDwDAqgsIInvjjl tkQvLADwezULZwOKJY2HJRWJL NGNDT5KC5aifLOnBUYfJE5eV3 WLCHPVMrYKZIIOX5TwD7lVNKE AYTDDISmLCDLMJTDHBu4KOTJU WVxwYXIgICAgLSBOTyBJTlRFU 9OQWxQEYD2PODGBGUGHGZQoC0 HrQCoUNXpAA0sEFSpDQI4BEMM MZFSaxDUqKLQhJQ9vDc5pYH0k ORjWK6CVSRiNS7OfG7KBLU4SI 65MBXrAGN5FSTYQTYHpeTNnAX QdtpQnyIOhGIfdjPxjMYqca80 rcywgTUQgIDgvMTkvMjAyMiAg VGB8VfMbGJ8udDQaVXAofeGty DPadSfmlsBiPVyph5RiP8VaNh AwMFxhbnNpXGRlZmxhbmcxMDM aBXV8niZcLYNfCXgiWYKnAXam Mm6htOBdpOaxPvChAZXdj1dfk cOOJWfxFmQdF696SJTmQHipd9 gzm5IuNCIhlJLjb8B4RLYTrsg mtVv6s9iuFrZrVwZ4eSAcPFjq T5bgioRoxPKjQ0SpkKZclIk4b MoyK87lp4A6YerrC7pfEHVtNK SuF0RmSA1sANUmUcb9DOD4YVN 9AUNvSJNiZ4ChDS5vMQXirILf WMq9v0mtuKikDUAfSNR6c1ksH LytapL6PD9pwv3alMs0c2lkaj DmYAQaFVEbfOTODMRsC3CwcBw dCo7olBo6aQgpOwzpFMK1Hkb4 SD5ues82mvs0tVsrJHJousjiI aG1CLfyNLNvxbfsYSu1KMorAZ JsoGZ0QHBprCRoQ9HkZJJiHB3 ubiu0MXM8VKcjMVKuEeS2FCLr uIPjBWGsjFvoTDxhc452KNT2U uKpBE3bC8Vfj5W6sK4xiZVtQZ TeiHRtCfQyXIHtez3nmRBaMJa su4GeFWR1foL5rCJzlVSuZIQg PX65Zceek3HpNtsiZIJ7FFYfs jIbh6Qib5jjQsGzarTlT1keO5 UaFAZjSWYxTJAfHsJpckWlh5I gb4SqxHByaOp2m2ywGYRsEUMk mGjwr7psYML0TYZkI2Y9lDUic 6jrMNnsABPcqFG4nlZ7JZEnbZ ZiN5PmfG4rCVEyEX0xgze9k1w gNHR2KXxdYUQcCrH1doM6TFEz rZXxMGHzfWulTIbux133XCL4D zAuIGNcu5KdB4DmjLagD18wqI lkU88fWVQnsBfdoY3nkEblqZ4 cZjBcZnMyNFxxbFxwbGFpblxm MVxmczIwXGxhbmcxMDMzXGhpY 4kvKaHjIMHkcPouQEjxc3RbOG YxXGNmMlxmczIwXHBhciBJIGh lvmGrxMKes05pLQpmbKLzLKNo TKnrKTEamKskf4IbY3ukPP7iH 5ChjRTbvnFwdzIbYYiuCCVxk6 y5vHHvzBlps3MclIYiAZ90ilL eHQMqFQT4TYOll8mrSS90zsjt BsPtkQ73lgEstcJaKXPld0xiX 6efpEAnu5Xqb7VkjiBrYIhds4 EcGL2ocWWvzuirgRF4UBLqdQG ckrVlrxJ3mAijGWWnsR9sqG1c tLbqpG4bXyLpAeMrBNrgWU6aO JLqP1swwTSaRUTlRCWkN6jnBs SxvH6bzSmfVvkjwuE7NTFecb8 9 Clinical Information Chris Joseph is a (test code = 61 year old female [id number]) Gastrointestinal hemorrhage, unspecified gastrointestinal hemorrhage type [K92.2]: 1. Antral erythermia biopsy, eval for H. Pylori and interstinal metaplasia Gross Description z2zpwXDsRVPqcPTSQETjUHTdN (test code = G4arSjmjDo7cFgaJFOycfA0fN [id number]) VeGAwtg5ofVTG9d6twagERQjv uMAGlORimGPYarghmXgL6OJoe JKPnymstEUd6VBulIXEnjUV8T DKtqLVkU1MjVRUiFV3fqde4UT Y9TEouOMZbQfY1FYGvPrBtExy yRTb2SGYxaaF1Gjy6ASQjDNPx sROpj2E2KPteljpiKNYuwZLlU 861HQoak8VtlYXxYZsuqURgNI GBMpygGpvghHbka5IkdIRzIRh pBSNgVQOqEUzqveicWEy3ACXv QFasbTVgVL5mjAiqXbjdpOitp 2VjdCBcXGlkIDUxMDAyIFxcZG ObPZ9ERpFuSZIdCRk0HTsyWEk 0SYr8VD2JReHmSQThNVdjBFc5 EzKbXFw8JWeoYZ5CMLD8AZW2B zB2ELLaYIOgEKWkUNv2AJTaDJ xmIEFyaWFsIFxcZnMgMTAgXFx bxSBaIK0ejVdrdVZkgbdgruVr EJPMMBGLOZHTTJRdjPEwNU3RL NRlSPliXNWipVJPWXO6TH3sRF ANClxsdHJwYXJcbGluMFxyaW4 rBU2HVVi8fnVdENBoZuFuM4Bk H1ioHA6pPEUhkaGwITCotJIlX JHbpaCjk4ZfNVgirpFhUEFamU VkIHdpdGggdGhlIHBhdGllbnQ fpbAxSG7xJTIDZKVljY2kRVKa EkN2p93vY2fwHSWsrBEmqPKpx ly2nBEaEJWfvU8hy2drPHO0NQ laJc7qHHydVMV5pB8riGPywmR reK13JMD2sU8awNAwHUEphCxu v0waXxOhgfRwP38hn0pkrNNot 7QnGhQ7CY4qpOessdKkmaAhP9 YaXRQqs22xfJV5cFLrkLXiXmK kL30chwOrASwdPD8lcP1yUYJs i13pAQ3pMGBpVXRdDHOsdRIzz bMmqeOvdQYpwAEysN3xhdCjm7 7oYHPjWUZ2TZPdJFP6DXRbZXA lnRTxmcIyG1nfKYsrxFRqXsOB vXFqe5FqD8ykHU5bpRWwJjrpi QFnEZYqmAlys5HbvKJjPRXbd4 FbwNIpEJguYZ0jRRF6Cn3thLY iSPQkzfJ0l4MoJLjmUSCqOihs TDElGIzkxFWuUE6RCBAccEHJO Ydld9BuRCwmPCDvCIJCR1XzME tjDLCqL91yc0PCj2BaQXMvm5z vuFgvu8WfqYOsCJsiAGCgaVKb UPlrsO4vGhFqk0nkeJj2NZbgn dM3HFYugw9uiWzypB4uRFnwe8 xfRCL1FQKykIUqtQVmBFuqvLf lgP8pEvZlMzj0XKauNEDrG3Mq N7TjmqX2PTVfNPqaFODuYVLsP Qp9 Disclaimer (test h0tltOLbWEWbn1nuHCJbkWAyG code = [id number]) zEwMzNcZnRuYmpcdWMxIHtccn UfANwwu2DtC8ZoMuSjKIhnceF kRVWzQfzqanryFTGyLKQ5gqHb YBUsGGppHNXrSVirWf3qsAYbf ExuSjRcCANou7yxnpKUUYhnVj BuS546QSNeMUabp2hsa2UwFFY zbJMdk6Y6GHZLoriskRo7gSgm Y60ku4D5XfarZ5tiWRUnIIReY 9HgKC6oZHIdOco6JOH8VFG6LK CrCBUyV5NtVP2uHOThtQGbJEi 0w2sbbNzzRYDfTEN4r8adXBez fxUlEX5iai2haHh5q0rplmEmL VMxSHZrjOCYKLWyV9VycEpxWq 2qeQs4eSfdLkcrMZB4Elp9GA6 reg64hjb3vCetLTQasffbAcF6 BTfgHOYjiejlYMu7AUqlJFBhb FY6LPXisHIwH0McGMSvCZ4nuz f3PPS3QCngIVFiMfN6TMKkfTN lFVDsrFejAVcsh430ZRM7LrXo FO4iV4Wxk4C2wN7uwFHeZDNts ISgAmNnIKMjft6ehPIxBQvzr6 BtKTW1fhP0qBDqzVHnLCEqNF5 1Ekvya6ZbNfwky6PuR83boOB5 ZBznr1csWE0oNmJ3raVvRYfmm 7vqrO0iZcP5OXejRH7pUY1tBL PzhC7jasfdJKEbSnAafbxqSVT zlAmkczRgNi5rjOetDAL7FMvj X7hajG2nQeD6XGwpU7ewoV9lT Uh9UZdoxUY1SJMzwI1gXB2uuu qdi4rfZTarHPqwYDAbfaY6gzE 5KTHoxUXsD1HngZ7tTUZyMI4r dwvlb6zyQXJ6QFcyKPCiSMA8F dIbXCHsi4Zrzcb5RxZkf4WfxT YuWSmpP30xh756UGJnpuCpK8j wbGFpblxwbGFpblxmMFxmczI0 JNRpfxQum8ThFMHbQHY1JXwlX ZxcmCVaEDFjjGpoh5vwL5CgjM FyXHBsYWluXGYxXGZzMjBcbGF uZzEwMzNcaGljaFxmMVxkYmNo PZHtMAjvT8fjIbByT6OpRDMbA xDwuAOgT5cpORtiqdRnSMDooc MptFY7GXlbK2m9OWUhujEzkSd 9ndFzPxIdZBOaYOE7LXtokQKr KOYvr9FzznayoIHsPs7usASdS ELatW7mLNWdGGZhPInoDX9emB q1WYJOyLVrkWGcMrIQFDVnLP5 6hlXaDBWOysfgs0A2XVaxVIGb y4KquZJjF2hxs1IrGHSnz47sC O5kq8B3t7jvQCQ2KY7zw6RuUN QmpSTayIMlEXMsc7Kxebtly5P oNQDgmtBwq9FcWHUwxjBsvAWw CIFnqtCemx3vomPqYWUpNRKuN 7DgajnfnNdhspIjCFWcdi4ony UuJTC1NCGQJCRpHZMjb7EsiI6 zqLUVGII0wCIhlk8wrzDPfPSo BTAcsy38JRIuBP8wP6mxROEdK RSnelHhpKLof3ReNSHxvQB2lM FlYE9YFmNPu39eHRFiEIOBhhB xBXCctCjalUF0qbN8fE5kJNjR REEpLlx+ODYuFFBPRIBkCK9rm pWju2PmdqDajDopSLNnhGRmu4 ZzjBPlf2YmsWsbl1OpkMYoaPV nXK3jBQDdmclqWAFrJPQOEaHR RQKmkfK6m7RwDQEqANGcHNY2x Zxrmlt3OUXdpU6gVBQpE4oewx etMMggBGLtf4BwpP2fmDHKoBA gv5NugBJplCVSzSRgOP3focZt DHmPNSfFFIT0meHvVXHpe4PmV NusX6qjR70rlMijaHw9oDU8OA W1zD8jPvv+IFxwYXJccGFyIEF djEVzsXUiULWjzMkfexHsO0Gb eaXpqO2bzWWoryNrBH4tIF4uI 3C7zNVuLYQoyoIju0zxMZkiyu RnJwAxqrCoBIJhHNwnFJAxz6Z qRJhpWGI3FBlupaPjzuOrrJNv fqvzUYNFPFMQzOVzxHLtKSS2T DebxfOktqYxPW5goA9edAgtrD 8drYCmjBO4ropuXNBwQTVjuGp uFSLbIF9izKYoHEGyinEGiOcy iEDqzK8mK8FsXXNiAANtxp5pJ ABbgQ7kIGeqq5AaynrsZYJcQF EzKNIpcmDada6gVXVjxGKHBY0 MEAetyUMid0BszrOtT3yOCBQ5 NUQwNjYwMjgxKSBleGNlcHQgY CHpmy92LBNutM0exGelHHNncL 3bvJ6kwXmdlV3qIgZwUeWqACv uFF7lRGGpT9gldEWsDIOcOWHg F6xiOjTnvV4hlBstFRtsZpQaQ yIeSWpiNJK7gM== Embedded Images (test code = [id number]) [facility] [id number] 16:43:01 Test Item Value Reference Range Interpretation Comments Case Report (test Surgical Pathology ? ? ? code = [id number]) ?Case: [id number] ? Authorizing Provider: ?Earnest Nunez MD ? ? ?Collected: ? 03/23/2022 0936 ?Ordering Location: ? ? GI Endoscopy OR Department Received: ?03/23/2022 1143 ?Pathologist: ? Luisana Willard MD PHD ?Specimen: ? ?STOMACH, 1. Antral erythermia biopsy, eval for H. Pylori and intestinal metaplasia ? Final Diagnosis v0ybvUPmRKHpt9ufBONrtWZpR (test code = zEwMzNcZnRuYmpcdWMxIHtccn [id number]) MoDYfahXvyVFHeDXYsXZ0ovQe htDf5pIazNVWgwxJ6gXLcNVzr d4qmSJL5v6wnlhilLUVkCYfaR b9uySCaxYhuFyIeCNSaRQm1vA 38DGMukG7coNHpAVr5PIBmrZX daxUyZgPvHBDboVEmoNR6GIKd FM1usocmIHsrIOsbQUAegsC5C LBhhORqY9AxZLXbNT2aozbmNW C1AOxsXBPpHXP5VrStIPWhl0W rpsb4DcCmyACxZWxmbKCtacub rlLaAKKqxuWCGfNOHY1SMDBGL MQCPQ9VM5ovxSMjHPZoRQ2aE2 TJUEUFGtGHHFKOP3UvV8aCDLF IJFJLBWnTHGDQHCAITc5OJWQS WVxwYXIgICAgLSBOTyBJTlRFU 1LCZmNWGQ1SENSFJPWXDAOpC0 AyVMlGHPaMJ7nWNFbUUX9ITZU UVHSkfWGrYTXhUA4xBy8mBM3a IJnWR8TQXPbFK5VxB7RDPT1NM 07CMCcSIX0EEUJNJGUftARnOR RvfqUrbZGxEBrwaXbmOBmja56 rcywgTUQgIDgvMTkvMjAyMiAg EZD6EbRyUI1riZZkNUSjixYzw MJozYazcmJbXUxtc0OxY8DvLj AwMFxhbnNpXGRlZmxhbmcxMDM zDAB5zgTzMOMyFRjjEQPpULrq Xi5dpGNfqEfpShLsAUNyr3tez zVFIOplNsGaS023EQMbMXfcl9 eyl2JgURUylBPyy1P1RDGAsqc yuIn7l2jrJiXkSaX1bEBcRGmu Q7ovzwZlsTHhM1AhcLHrsDa5t SkiS51fq3A6EbovH7ekTWKdHV QcV1GlUI8tYZLzYfd8SUI9LDC 3UTUgPOGpT4IzRA4uJCCrsZWb DWm7l8ldvBlbPIIsNAB6f7aeE IjolnS7IY7kkt1glXp4c0nrwf HjMMMjZCEhwRFYWDKlU1BmiKd kYt7wiBc9yTfqZdnoGTC3Pmd1 ZB1jin50inc9eOrkJCOvazccU gW2XGpjACOholjuCZw8NSdsBQ SplKX4NAHsiPKiN9QaTAJlUS8 qgnq8GGA1KCwhJYFeYeP4MLCn eOTrKHZddFleZTobn842GZC5S zObXQ6uX1Cjo4R5iV8soDOzWY ThcAFjXbTqDBJqft8zpEKhIJs hc6SfCPE8lxK3sYLoqEOyVUMy RK52Tbcbb3PhXekgVNN2BVQgc aLnm9Vke4noEnNpshEbJ9cdR6 IcTJXkJCYlGNLqIvDofoLur9E od2AyvPKndLw4n1laXHBqBWMa lAxnm2ykKJZ9KOYoY2K4pORvs 3hfARqoAGVjvNS7bpX4UWFqxP MnW6WnjW2oBQDpBP6tklm9l0d lCXS0IDrzHGSwTrE7byB8ZDQd xQYvXAFpcMxxZDzaw390SWU8Z qDpVDMym3EfU3ZebVypN97lkA atR41pZZIezGwqfE6jmStbuA4 cZjBcZnMyNFxxbFxwbGFpblxm MVxmczIwXGxhbmcxMDMzXGhpY 9boXoMpAQDubPopSIziz5MdJG YxXGNmMlxmczIwXHBhciBJIGh wezWdmUAbe74yAEmhyQYoVHLp BVcaPOVpcKkme3VhF7bzYD1cJ 0LtnHHxqgGnirKhPEcyAJQmd7 h9zPCvsQarp0GquKMyNH86zbQ vEDAxVKT1ZNExr4olLH24urtq FzFcjU79evYwutFmDREtw6hjB 8dheJHoy4Xqn4MdpwGrRHjhz7 MqEE8ymALnijctwDX0HLSxcWH axcBpqnF6fWwsMKPleA6nbW9a eKzabW2kQzAkKsFrDFnyJY4tU AVpP7skhWBpKBLjYCEhD5vlKj PmnM3xrCnzJkapfiJ9EIHtqv0 9 Clinical Information Chris Joseph is a (test code = 61 year old female [id number]) Gastrointestinal hemorrhage, unspecified gastrointestinal hemorrhage type [K92.2]: 1. Antral erythermia biopsy, eval for H. Pylori and interstinal metaplasia Gross Description c3vpmDJgGZKwxKPRQOEfOXUdA (test code = P4ocBpbiDd5xKqrROTwmkI9fM [id number]) AvAJlgh0tiAKE3o3oozhVJDld cFSDpSTvvUJUkftrnUiZ1UPpt YIWfpuqwNCu0SLdjAOFdrTL2U MLztGPsI4SaHXIkDA0apbf5YP V2AMcsCPHzByT9BPQsCsKqTpl tJQm3LXVpxqL7Bnq4OHIuCITu yHYjq6M2LArwzgigVANjhTAcK 804BCzua6DagFUiZBkdkEWvCL HRXzarHkdxiAhnh7OhvIFvMEe vYPLpFKLkSFqmurrgHHh0IPYh MJedlZOiJN2qtIjhCkcmjKhon 2VjdCBcXGlkIDUxMDAyIFxcZG ZrAV3AWkMiIRSoZDk1WImbHTa 7BOz9CP8ADsWsQAFtBWjcNIx5 WnXfUBb2QVpnAY4BWKU8KOD6I hI6TCWeYFDgZDYrZKz7NTNxSB xmIEFyaWFsIFxcZnMgMTAgXFx ewXIqBI0iyJdxrJMoscjimjPt BZHWBKOZLSLEMNWxfXNlGF4FN CWnXHsrZIKraILREZD0ER0nQJ ANClxsdHJwYXJcbGluMFxyaW4 jJQ8ACGs8hjPsQREjTqWtH7Pc E3jhTI6pQCTfwxJvPMYglKIjL WFwuwHtl2CmEPsqeaVeAPMuuU VkIHdpdGggdGhlIHBhdGllbnQ fcdHyZR8aDCBVCOCeuT1wTQJs YhK6e39lL9emWXMytZBpaJPgb if0dGFpRJIghS8qj2qyLUT3WI ylNn0pSHtbKSH8jK1jrFSigjY ujT67SSV7gI9auBVoPIKbnJqe a4adRgYibmEnQ50se9nsmGLsm 8NmQhT3HK2rbOxxqrUhyfJmT2 JaIJWqk88dvMF3nQIejPPiQgL lG60wvmAcCHieJH6rwV4gBGAe g94qHH5mXZPmNJTeMJUijLXfw kUrmjCxvKAibHNwqT5dgrVoi6 7wXPTeAVV2AIBdJXZ0GQGfUMK ecGDvmeUfU8grJTssrXQaQmSM xRAzr7MzQ8ogFO4fxQVwCiqjk CXfCQHdeYcpo0XceOEmMSYgw8 IfeOKpZGniXS0sABI3Vh9srAG aZLYmdxD5o3SlUMfmZDWqScas XWIlBFgpgTYnZK4HXBEckUDXQ Vawl3QhMXmdOJVvGLHVF3NyML zrCJNzS33uy9JGf3WrEYCxd1q vzZwta1QvpUPvQXprTIPhoNAa STlwqL2jXeVfz1pnnAd6QVjvt mU2UJPpuw3gwUuenU5zBTvzt5 acHUP9DRHtcOLyjSUtEUjtuKl svW3dZuWhNgz9BPbwLHNcI7Uj T1YffwN9PVCiNSvgRDAkBHEpJ Qp9 Disclaimer (test r0fmaGSgIVKjb8jeFMWgaFLiX code = [id number]) zEwMzNcZnRuYmpcdWMxIHtccn NmTCwvx8ZfO8ZqXlMySWrjxlU sXOUhObaygrcoXKGtEWE2zmHd NYMaXRdbRBYkOFtxBj3erAMto QrfXtPoLEIqu1zjbmAKAEtkYy GjS201KQHhTCnub3wcb2IrFOQ ovQIqm5N0KCQOhwnyvHf6dUmw B26ph6J7MauaQ8cbDWBlBLQeK 8CoCM8kTSBmFlg2LHY1FYD7JI JnUHNjY4KxNL5lNOWbpQVdMKq 7s7pmcVajCFVtSSQ1y3saPXcc hlBrWO8kwz0zzXk7x1szhoOcQ DOyYHHegTCLDRJgZ2FxfSadYl 1wzSm4oCrdRoekRZK9Wcm1VG7 vtm18pcy2qWsnBPVnziuvIcZ8 EShgVCNasxwnQGf1QSddVJEsf QZ1NMRxkFEkC0BrHWAiAJ4msg c1IGB2ALplQQUbBmX9MRIxgXV hCOEceQhpNFmji187KPK4IlFm AE6gQ2Qfy1K4sM7gyTFwHDFbh MIdMcOkUZXehw4ovTWeLQkmp1 HbFNO7itZ3pCRblTGgNXDeHU9 6Yovvr4HxRximy9MyE43opFS6 VUncw7ydIO7bPaZ9zjPzGHneq 1acpF1hLwG9LNvxFR0wBE3iNT EhtO9kmjajHTClXwYjiijpUJR vzIrufhFzOs1odLhlNKP8VTay N8qfbF4rCpP3JHydF3trlO0jW In9CQrznZG4ZLPgmC9fLC0ibg woc6vgRHieGYxoZNOovgK8bjP 5DTKjpMVdW1TccZ2gINArFZ1k pnyds5eoPDT6RKfwTHQrFXE6M jSsQMAlp7Kysfn3EeNnx3AonK GoZDklP22ft419BTWsowNqG4u wbGFpblxwbGFpblxmMFxmczI0 ZOPsmqTdj4MtNLUuJTY3DZxeF JzenKRoHNZxpQszy1coL6JsxS FyXHBsYWluXGYxXGZzMjBcbGF uZzEwMzNcaGljaFxmMVxkYmNo MKKhSMihJ8umHmReH5DnAHFaJ tMyeKZvP0wrWKolwiVaAGSiny YirED6QBqzC6y7GBLhczJzjNp 6xbPwEfEcTWIbGPZ1OCwbqEPg GVNzx2AfdnuncVOeWp6lvLFwA OOxqI2zLNIhNHDqBPigUR5scZ r5SHDHlDTbbOSdRtSOCDVzWR2 1hrJbUBQErvucd6Y8CAveJTYe b9IqgGRoV8yje6BcYHUbj55tS D0ys6W6k8jaEST9AO0pt1VlWK NjcOXnqGXdFYApk4Spjwvav6L pZMZkxsOea7DvNZOmelDimQCq OHVbzcXcgu6gndJbEZKfISJdR 2GnryonlCfhtwRaPGExiy7bgp MdFPG4RUKUFKImQKObu6FepK4 hxLUMBPK5vEWqmb2itiFGtSFz NPEdtf24VGYcDF7sL6zxRTNlH QFbavUopGOml2SdFJJchSP3wZ QuTN2DNqIIt58cUGJtXHBDcpD eCUVnkKcezLK6zzS9lP2vRPoY REEpLlx+TXZwENBIEHJxBW8dq hBcy7HjevXpwBibIMHokSFii4 VkpKQwu8HpkGwjp9MreLLfyJJ pUQ9gIJOlmxmsALFuCDXMIiLO EAPysdY7w3HsBOTmXBGrWHV5g Xywkwj8ONXusV5sWUKdW9zpgp jhITbpINTad1QnpN2adIRGhEY zn4DmrOIhyCOYqUVtUI9bhnKj VUkFLVsDOOV7zvZuYPIxb5GsY TubN5syX95wmGyxpOz3nFN3JY M5dQ4pPkk+IFxwYXJccGFyIEF ixLZfcKQqVENzzMzflaRvL9Gk nlYorD0pzEUjwsWdGV5nLB7bM 8H3eGEcLJQbhwZeh8bnOXohei OjIkCartEwKBDpNFytOZNpk7W nTMhjFDJ1ZVduwcNjquPthTSt mvqkGJUGUTNQsRXcvPSqWSH6D HypzvFcfzYcHQ9geK0amUlgxY 6cqUSpfVS5aspsVIPwJJCfxDd tZEWjPB5jdMIoQOPynkHLeMwl iPNsnD7wT6DzZSDrFVCsdn9bA DWsuE9tFDbze8AkdrtvGQAsQP VrRGYguzUlpk5jIRVemNRNHC6 ZZEuwaAVwh0MtkqQuP5eHHXH4 NUQwNjYwMjgxKSBleGNlcHQgY ERryr19WTOajK6hlXnbBZWelR 6ftA0fwJeepI0eLtEwPgBnLHr nWH3vYPIrA5rblTPhWOZaDUNf T6dfNvHijQ0ixCxrVMsrWuVxP kDmWTdfWIC8wG== Embedded Images (test code = [id number]) [facility] GLUCOSE (AUTOMATED)2022-03-24 13:31:30 Test Item Value Reference Range Interpretation Comments POCT GLU (test code = 8257996561) 102 mg/dL 70-110 Lab Interpretation (test code = Normal 85356-9) [facility] GLUCOSE (AUTOMATED)2022-03-24 13:31:30 Test Item Value Reference Range Interpretation Comments POCT GLU (test code = [id number]) 102 mg/dL 70-110 Lab Interpretation (test code = Normal 50408-4) [facility] GLUCOSE (AUTOMATED)2022-03-24 13:31:30 Test Item Value Reference Range Interpretation Comments POCT GLU (test code = 7764992931) 102 mg/dL 70-110 Lab Interpretation (test code = Normal 20287-9) [facility] GLUCOSE (AUTOMATED)2022-03-24 04:05:12 Test Item Value Reference Range Interpretation Comments POCT GLU (test code = 7210157086) 89 mg/dL 70-110 Lab Interpretation (test code = Normal 32655-2) [facility] GLUCOSE (AUTOMATED)2022-03-24 04:05:12 Test Item Value Reference Range Interpretation Comments POCT GLU (test code = 4302366890) 89 mg/dL 70-110 Lab Interpretation (test code = Normal 94395-2) [facility] GLUCOSE (AUTOMATED)2022-03-24 04:05:12 Test Item Value Reference Range Interpretation Comments POCT GLU (test code = 5293532530) 89 mg/dL 70-110 Lab Interpretation (test code = Normal 33065-9) [facility] 01:56:37 Test Item Value Reference Range Interpretation Comments POCT GLU (test code = 8932801085) 64 mg/dL 70-110 L Lab Interpretation (test code = Abnormal 15674-3) [facility] GLUCOSE (AUTOMATED)2022-03-24 01:56:37 Test Item Value Reference Range Interpretation Comments POCT GLU (test code = 1585848984) 64 mg/dL 70-110 L Lab Interpretation (test code = Abnormal 53980-2) [facility] GLUCOSE (AUTOMATED)2022-03-24 01:56:37 Test Item Value Reference Range Interpretation Comments POCT GLU (test code = 1872549911) 64 mg/dL 70-110 L Lab Interpretation (test code = Abnormal 22798-4) [facility] GLUCOSE (AUTOMATED)2022-03-23 22:07:11 Test Item Value Reference Range Interpretation Comments POCT GLU (test code = 3852956572) 142 mg/dL 70-110 H Lab Interpretation (test code = Abnormal 65043-8) [facility] GLUCOSE (AUTOMATED)2022-03-23 22:07:11 Test Item Value Reference Range Interpretation Comments POCT GLU (test code = 4010209822) 142 mg/dL 70-110 H Lab Interpretation (test code = Abnormal 30120-9) [facility] GLUCOSE (AUTOMATED)2022-03-23 22:07:11 Test Item Value Reference Range Interpretation Comments POCT GLU (test code = 4684577072) 142 mg/dL 70-110 H Lab Interpretation (test code = Abnormal 23891-2) [facility] GLUCOSE (AUTOMATED)2022-03-23 12:57:32 Test Item Value Reference Range Interpretation Comments POCT GLU (test code = 9343617076) 97 mg/dL 70-110 Lab Interpretation (test code = Normal 63141-6) [facility] GLUCOSE (AUTOMATED)2022-03-23 12:57:32 Test Item Value Reference Range Interpretation Comments POCT GLU (test code = 1700238301) 97 mg/dL 70-110 Lab Interpretation (test code = Normal 45666-2) [facility] GLUCOSE (AUTOMATED)2022-03-23 12:57:32 Test Item Value Reference Range Interpretation Comments POCT GLU (test code = 6822563247) 97 mg/dL 70-110 Lab Interpretation (test code = Normal 52550-4) [facility] GLUCOSE (AUTOMATED)2022-03-23 02:07:44 Test Item Value Reference Range Interpretation Comments POCT GLU (test code = 1989284306) 164 mg/dL 70-110 H Lab Interpretation (test code = Abnormal 14819-4) [facility] GLUCOSE (AUTOMATED)2022-03-23 02:07:44 Test Item Value Reference Range Interpretation Comments POCT GLU (test code = 3939669581) 164 mg/dL 70-110 H Lab Interpretation (test code = Abnormal 81536-5) [facility] GLUCOSE (AUTOMATED)2022-03-23 02:07:44 Test Item Value Reference Range Interpretation Comments POCT GLU (test code = 8780686860) 164 mg/dL 70-110 H Lab Interpretation (test code = Abnormal 86665-3) [facility] GLUCOSE (AUTOMATED)2022-03-23 01:29:25 Test Item Value Reference Range Interpretation Comments POCT GLU (test code = 3499876414) 64 mg/dL 70-110 L Lab Interpretation (test code = Abnormal 95644-1) [facility] GLUCOSE (AUTOMATED)2022-03-23 01:29:25 Test Item Value Reference Range Interpretation Comments POCT GLU (test code = 4256296906) 64 mg/dL 70-110 L Lab Interpretation (test code = Abnormal 97932-5) [facility] GLUCOSE (AUTOMATED)2022-03-23 01:29:25 Test Item Value Reference Range Interpretation Comments POCT GLU (test code = 3865360143) 64 mg/dL 70-110 L Lab Interpretation (test code = Abnormal 41543-5) [facility] GLUCOSE (AUTOMATED)2022-03-22 22:10:52 Test Item Value Reference Range Interpretation Comments POCT GLU (test code = 3201326005) 263 mg/dL 70-110 H Lab Interpretation (test code = Abnormal 75597-9) [facility] GLUCOSE (AUTOMATED)2022-03-22 22:10:52 Test Item Value Reference Range Interpretation Comments POCT GLU (test code = 3357936242) 263 mg/dL 70-110 H Lab Interpretation (test code = Abnormal 98528-7) [facility] GLUCOSE (AUTOMATED)2022-03-22 22:10:52 Test Item Value Reference Range Interpretation Comments POCT GLU (test code = 4783530185) 263 mg/dL 70-110 H Lab Interpretation (test code = Abnormal 38189-9) [facility] [id number] 21:13:40 Test Item Value Reference Range Interpretation Comments ABO & RH (test code A POSITIVE Performe d at [facility] = 20) Laboratory [facility] [place] [address] s [address]Dsbi Free: [phone] A No. [id number] IAT (test code = Negative Performed a t [facility] 1185) Laboratory [facility] Blood [address] [address]Omgq Free: [phone] A No. [id number] [facility] [id number] 21:13:40 Test Item Value Reference Range Interpretation Comments ABO & RH (test code A POSITIVE Performe d at [facility] = 20) Laboratory [facility] Blood [address] [address]Uudp Free: [phone] A No. [id number] IAT (test code = Negative Performed a t [facility] 1185) Laboratory [facility] Blood [address] [address]Prmf Free: [phone] A No. [id number] [facility] [id number] 21:13:40 Test Item Value Reference Range Interpretation Comments ABO & RH (test code A POSITIVE Performe d at [facility] = 20) Laboratory [facility] Blood [address] s [address]Hqpf Free: [phone] A No. [id number] IAT (test code = Negative Performed a t [facility] 1185) Laboratory [facility] Blood [address] s [address]Rgqt Free: [phone] A No. [id number] [facility] [id number] 15:23:00 Test Item Value Reference Range Interpretation Comments ATYPICAL pANCA (test <1:20 titer See_Comment The aty pical pANCA code = ANCACOM) pattern has been observed in asignificant percentage of p atients with ulcerative colitis,primary sclerosing chol angitis and autoimmune hepatitis. ASCA+/PANCA- Suggestive of C rohn's disease ASCA-/P ANCA+ Suggestive of Ulcerative colitisPerforme d At: [facility] [address] BRIANNA Valverde [id number] ra Kevin LEMUS Ph:[phone] [Automated mess age] The system [employer] generated this result transmitted ref erence range: [...] 24.9 code = ASCAGG) Positive >or= 25.0 [id number] 11:15:00 Test Item Value Reference Range Interpretation Comments GLUBED (test 95 mg/dL 70-105 N Intravenous adm inistration of code = GLUBED) N-acetylcyste ine which resultsin blood concentrations >5 mg/dL will cause overestim ationof blood glucose results . Do not use during intraven ousinfusion of N'acetylcystein e. BASIC METABOLIC [id number] 08:19:00 Test Item Value Reference Range Interpretation [...] mg/dL 8.5-10.1 L = CA) CBC W/AUTO [id number] 08:10:00 Test Item Value Reference Range Interpretation [...] = BA#) 0.03 10 3/uL 0.0-0.1 N [id number] 06:06:00 Test Item Value Reference Range Interpretation Comments GLUBED (test 114 mg/dL 70-105 H Intravenous adm inistration code = GLUBED) of N-acetylcy steine which resultsin blood concentrations >5 mg/dL will cause overestim ationof blood glucose results . Do not use during intraven ousinfusion of N'acetylcyst eine. HGBA1C - GLYCOSYLATED [id number] 03:08:00 Test Item Value Reference Range Interpretation Comments GLYCOSYLATED HEMOGLOBIN 5.2 % 4.8-5.6 Pre diabetes: 5.7 - (HA1C) (test code = 6.4 Diab etes: >6.4 GLYHGB) Glycemic contro l for adults with jose betes: <7.0Performed A t: HD [facility] [address] [id number] monae Neely MD Ph:[phone] [id number] 23:20:00 Test Item Value Reference Range Interpretation Comments GLUBED (test 121 mg/dL 70-105 H Intravenous adm inistration code = GLUBED) of N-acetylcy steine which resultsin blood concentrations >5 mg/dL will cause overestim ationof blood glucose results . Do not use during intraven ousinfusion of N'acetylcyst eine. [id number] 16:38:00 Test Item Value Reference Range Interpretation Comments GLUBED (test 84 mg/dL 70-105 N Intravenous adm inistration of code = GLUBED) N-acetylcyste ine which resultsin blood concentrations >5 mg/dL will cause overestim ationof blood glucose results . Do not use during intraven ousinfusion of N'acetylcystein e. HGB [id number] 16:14:00 Test Item Value Reference Range Interpretation Comments HEMOGLOBIN (test code = HGB) 9.1 g/dL 12.0-16.0 L HEMATOCRIT (test code = HCT) 28.9 % 37.0-55.0 L - CT ABD PELVIS W/O [id number] 13:47:00 [facility] CH[facility]SEPH : 1960 Sex: FPatient Name: CHRIS JOSEPH Unit No: [id number] EXAMS: CPT CODE: [id number] CT ABD PELVIS W/O CONT 59070 EXAM: CT ABDOMEN AND PELVIS WITHOUT CONTRAST INDICATION: Rectal bleeding, diarrhea LOCATION: A1 COMPARISON: None TECHNIQUE: CT of the abdomen and pelvis was performed without intravenous contrast. All CTscans are performed using radiation dose reduction technique. [...] air. No extraluminal fluid. 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 at 1347 Reported and signed by: Justa Winston M.D. 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[employer] [address] [facility] : 1960 Age: 61 Sex: [place] [phone] Loc: NC.6204 1 ExamDate: 10/16/2021 Status: ADM IN PH: FAX: PAGE 2 Signed ReportCOMPREHENSIVE METABOLIC PANEL 2021-10-17 08:59:00 Test Item Value Reference Range Interpretation [...] code = ALKP) FE W/TOTAL IRON BINDING [id number] 08:59:00 Test Item Value Reference Range Interpretation Comments IRON (test code = IRON) 124 ug/dL 50-175 N TOTAL IRON BINDING CAPACITY (test 307 ug/dL 260-445 N code = TIBC) IRON SATURATION (test code = FESAT) 40 % 11-46 N VITAMIN [id number] 08:59:00 Test Item Value Reference Range Interpretation Comments VITAMIN B12 (test code = VITB12) 352 pg/mL 254-1320 N FOLIC [id number] 08:59:00 Test Item Value Reference Range Interpretation Comments FOLIC ACID (test code = FOL) 35.90 ng/ml 3.10-17.50 H TSH REFLEX TO [id number] 08:59:00 Test Item Value Reference Range Interpretation Comments TSH REFLEX TO FT4 (test code = 3.36 mIU/mL 0.36-3.74 N TSHREFLEX) [id number] 08:59:00 Test Item Value Reference Range Interpretation Comments FERRITIN (test code = BURKE) 132 ng/mL 8-388 N PROTHROMBIN [id number] 08:20:00 Test Item Value Reference Range Interpretation [...] and/or recurren t systemicemboliz ation. CBC W/AUTO [id number] 08:11:00 Test Item Value Reference Range Interpretation [...] = BA#) 0.05 10 3/uL 0.0-0.1 N [id number] 07:33:00 Test Item Value Reference Range Interpretation Comments GLUBED (test 96 mg/dL 70-105 N Intravenous adm inistration of code = GLUBED) N-acetylcyste ine which resultsin blood concentrations >5 mg/dL will cause overestim ationof blood glucose results . Do not use during intraven ousinfusion of N'acetylcystein e. COVID 19 INHOUSE [id number] 04:58:00 Test Item Value Reference Range Interpretation Comments COVID 19 INHOUSE NEGATIVE Negative Negative re sults do not AG (test code = preclude 201 9-nCoV infection [id number]) andshould not b e used as the sole basis for treatment or otherpatient ma nagement decisions. Nega tive results must becombined with clinical observ ations, patient history , andepidemiologi gregg information. [id number] 04:23:00 Test Item Value Reference Range Interpretation Comments GLUBED (test 79 mg/dL 70-105 N Intravenous adm inistration of code = GLUBED) N-acetylcyste ine which resultsin blood concentrations >5 mg/dL will cause overestim ationof blood glucose results . Do not use during intraven ousinfusion of N'acetylcystein e. [id number] 20:25:00 Test Item Value Reference Range Interpretation Comments GLUBED (test 105 mg/dL 70-105 N Intravenous adm inistration code = GLUBED) of N-acetylcy steine which resultsin blood concentrations >5 mg/dL will cause overestim ationof blood glucose results . Do not use during intraven ousinfusion of N'acetylcyst eine. [id number] 18:16:00 Test Item Value Reference Range Interpretation [...] LDLC) 28 mg/dL 0-100 N BASIC METABOLIC [id number] 15:24:00 Test Item Value Reference Range Interpretation [...] mg/dL 8.5-10.1 L = CA) LIVER FUNCTION [id number] 15:24:00 Test Item Value Reference Range Interpretation [...] 45-117 N PHOSPHATASE (test code = ALKP) [id number] 15:24:00 Test Item Value Reference Range Interpretation Comments LIPASE (test code = LIP) 108 U/L 73-393 N PROTHROMBIN [id number] 15:18:00 Test Item Value Reference Range Interpretation [...] and/or recurren t systemicemboliz ation. CBC W/O [id number] 15:06:00 Test Item Value Reference Range Interpretation [...]
[2022-12-13 08:40] VITALS: TEMP 98.2
[2022-12-13 08:41] VITALS: O2SAT 99
[2022-12-13 08:44] VITALS: BP 138/86
--- NOTE | 2022-12-13 12:09 | RAD REPORT ---
EXAM DESCRIPTION: RAD - Shoulder Left 2 View - 12/13/2022 9:26 am CLINICAL HISTORY: FALL COMPARISON: None. FINDINGS: 2 views of the left shoulder. Minimally displaced fracture of the distal left clavicle. De generative change of the glenohumeral and acromioclavicular joints. Osteopenia. IMPRESSION: Minimally displaced fracture of the distal left clavicle. Electronically signed by: Sahyne Jain 12/13/2022 4:40 AM CDT Due to temporary technical issues with the PACS/Fluency reporting system, reports are being signed by the in house radiologists without review as a courtesy to insure prompt reporting. The interpreting radiologist is fully responsible for the content of the report.
--- NOTE | 2022-12-13 12:14 | RAD REPORT ---
EXAM DESCRIPTION: RAD - Chest Single View - 12/13/2022 9:28 am CLINICAL HISTORY: FALL COMPARISON: None. FINDINGS: Single frontal radiograph view of the chest. Cardiomediastinal silhouette: Normal size and contour. Lungs: No consolidation, pneumothorax, or pleural effusion. Bones: Degenerative change of the spine and shoulders. Nondisplaced fracture of the distal left clavi mehul. Upper abdomen: No abnormality identified. IMPRESSION: 1. No acute pulmonary process identified. 2. Nondisplaced fracture of the distal left clavicle. Electronically signed by: Shayne Jain 12/13/2022 4:40 AM CDT Due to temporary technical issues with the PACS/Fluency reporting system, reports are being signed by the in house radiologists without review as a courtesy to insure prompt reporting. The interpreting radiologist is fully responsible for the content of the report.
== END 2022-12-13 06:20 | disposition home or self-care (01) ==
LOC: ER 03:30
DX: S42.022A Displaced fracture of shaft of left clavicle, initial encounter for closed fracture (principal); W18.30XA Fall on same level, unspecified, initial encounter
CPT/HCPCS: 85025; 80048; 36415; 84484; 71045; 73030; J3010; J2405

== ENCOUNTER 2022-12-18 11:15 | Emergency (ER) | payer OTHER ==
--- OUTSIDE RECORDS SUMMARY | 2022-12-18 11:33 | XMS REPORT | Continuity of Care Document ---
:1960 Author Organization [facility] t Address [address] [place] [address]. [address] [place] [address] Care Team Providers Name Role Phone TERRY VILLARREAL Primary Care Physician Unavailable Skylar Triana Attending Clinician Unavailable MEHRDAD BLAIR Attending Clinician Unavailable Terry Villarreal Attending Clinician Unavailable Sheryl Allison Attending Clinician Unavailable NICHOLE LAU Attending Clinician Unavailable Kusum Iyer Attending Clinician KUSUM PACHECO Attending Clinician Unavailable Doctor Unassigned, Charlotte Hall Attending Clinician Unavailable Nichole Lau MD Attending Clinician Pob, Adc Lab Main Attending Clinician Unavailable MERRY Attending Clinician Unavailable Vieira PAC, Katty S Attending Clinician Sebastián ABARCA, Karen Neely Attending Clinician Unavailable PRAKASH WALLER Attending Clinician Unavailable Christin LEMUS, Prakash Lebron Attending Clinician Mayra LEMUS, Earnest Henning Attending Clinician ROXY BACH Attending Clinician Unavailable 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 THERMITRoxy Attending Clinician Leon Wilson Attending Clinician Maribell LEMUS, Mehrdad Hay Attending Clinician Only, Adc Test Attending Clinician Unavailable Stanley Lobo Attending Clinician Unavailable KATTY VIEIRA Attending Clinician Unavailable Lavell John DO Attending Clinician Radiology Attending Clinician Unavailable RADIOLOGY Attending Clinician Unavailable LEON IRENE Attending Clinician Unavailable Lola BARB, K Shari Attending Clinician Mauro Chinchilla MD Attending Clinician Gomez Hawkins MD Attending Clinician Tai Avalos CRNA Attending Clinician Maribel Moody MD, Leonard Attending Clinician AMANDA JORDAN Attending Clinician Unavailable MEHRDAD BLAIR Admitting Clinician Unavailable ROC_R Admitting Clinician Unavailable PRAKASH WALLER Admitting Clinician Unavailable Christin LEMUS, Prakash Lebron Admitting Clinician Mehrdad Blair MD Admitting Clinician Stanley Lobo Admitting Clinician Unavailable LAVELL JOHN Admitting Clinician Unavailable Gomez Hawkins MD Admitting Clinician Payers Payer Name Policy Type Policy Number Effective Date Expiration Date S jeovany [facility] [id number] 2020 [facility] 00:00:00 PPO HUMANA CHOICE [id number] 2013 00:00:00 [facility] [id number] (MEDICARE REPLACEMENT/ADVANT AGE - PPO) [employer] 1 [id number] Common TRS/ERS MCR PPO 00:00:00 [facility] MEDICARE NOVITAS [id number] Common [id number] Common [facility] Problems Condition Condition Condition Status Onset Resolution Last Treating Co mments Source Name Details Category Date Date Treatment Clinician Date GIB GIB Disease Active Univers (gastroint (gastroint 8-17 it y of estinal estinal 00:00: [place] bleeding) bleeding) 00 [facility] gregg Branch Sinus Sinus Disease Active Univers tachycardi tachycardi 6-20 it y of a a 00:: [place] [facility] Anemia Anemia Disease Active Univers 6-20 ity of 00:00: 00 Medical Branch Essential Essential Disease Active Uni vers hypertensi hypertensi 6-20 it y of on on 00:00: Medical Branch Type 2 Type 2 Disease Active Univers diabetes diabetes 6-20 ity of mellitus mellitus 00:00: [place] without without 00 Medical complicati complicati Br anch on, on, without without long-term long-term current current use of use of insulin insulin Colitis Colitis Disease Active Univers 6-16 ity of 00:00: [place] 00 Medical Branch Obesity Obesity Disease Active Univers (BMI (BMI 6-16 ity of 30-39.9) 30-39.9) 00:00: Medical Branch [id number] Chronic Problem Commo n pain Spirit syndrome - [facility] Chronic Chronic Problem Common sinusitis sinusitis Spir it - [facility] Hypothyroi Hypothyroi Problem C ommon dism dism [facility] Acute Acute Problem Common peptic peptic Spirit ulcer with ulcer, - [facility] hemorrhage site St AND with unspecifie Luke s perforatio d, with Medic al n but both Center without hemorrhage obstructio and n perforatio n [id number] Other Problem Common chronic Spirit pain [facility] [id number] Anxiety Problem Common [facility] [id number] Gastroesop Problem Co mmon hageal Spirit reflux - [facility] disease [facility] esophag[facility] hemorrhage [id number] Grief Problem Common Spirit - [facility] Recurrent Falling Problem Commo n falls [facility] 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 with diabetic [facility] nephropath Medica l y Center Status Migraine, Problem Common migrainosu unspecifie Sp coretta s d, not - CHI intractabl [facility] e, with [facility] status Medical migrainosu Center s [id number] Pain in Problem Common right knee [facility] [id number] Moderate Problem Comm on persistent Spirit asthma, - [facility]I unspecifie St d whether [facility] complicate Medica l d Center [id number] Fatty Problem Common liver [facility] disease, - [facility] nonalcohol [facility] [id number] Unsteady Problem Comm on gait [facility] [id number] Chronic Problem Comm on tension-ty Spirit pe - [facility] headache, intractabl [facility] [id number] Frontal Problem Commo n sinus pain [facility] [id number] Hospital Problem Comm on discharge [facility] follow-up [facility] [id number] OAB Problem Common (overactiv Spirit e bladder) [facility] [id number] Reactive Problem Commo n depression [facility] [id number] Primary Problem Comm on osteoarthr Spirit itis of - [facility] right [facility] Mixed Mixed Problem Common hyperlipid hyperlipid Sp coretta emia emia - [facility] [id number] Polyneurop Problem Com mon athy Spirit [facility] 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 diabetes with mellitus diabetic [facility] polyneurop Medica l [facility] without long-term current use of insulin [id number] Hypertensi Problem Com mon ve heart Spirit disease - [facility] without [facility] [id number] Abnormal Problem Comm on mammogram [facility] [id number] Carpal Problem Commo n tunnel Spirit syndrome - [facility] of right [facility] GERD with GERD with Problem Com mon esophagiti esophagiti Sp coretta s s - [facility] [id number] Mild Problem Common intermitte Spirit nt asthma - [facility]I without St complicati [facility] [id number] Non-season Problem Com mon al Spirit allergic - [facility]I rhinitis St due to [facility] pollen [facility] [id number] Bipolar 1 Problem Comm on disorder Spirit with - [facility]I moderate [facility] bhavik [facility] [id number] Osteoarthr Problem Co mmon itis of Spirit multiple - [facility]I joints, St unspecifie [facility] Medical osteoarthr Center itis type Allergies, Adverse Reactions, Alerts Allergy Allergy Status Severity Reaction(s) Onset Inactive Treating Comm ents Source Name Type Date Date Clinician No Known DA Active U [facility] Allergie 3- [facility] 00:00: [facility] 00 are [place] [address] Drug Active vaginal Common allergy swelling Spirit - [facility] NO KNOWN Drug Active Univers ALLERGIE Class ity of S [facility] Social History Social Habit Start Date Stop Date Quantity Comments Source History of Common Spirit - Tobacco Use [facility] Sex Assigned At Common Sp coretta - [facility] Alcohol intake 2022-09-29 2022-09-29 0 /d University 00:00:00 00:00:00 [facility] Exposure to 2022-08-14 2022-08-24 Not sure [facility]-CoV-2 00:00:00 11:14:00 [facility] (event) [place] Tobacco use and 2022-03-22 2022-03-22 Smokeless tobacco Un iversity of exposure 00:00:00 00:00:00 non-user [facility] Smoking Status Start Date Stop Date Source Never smoked tobacco [facility] Medications Ordered Filled Start Stop Current Ordering Indication Dosage Frequency Signature Comments Components Source Medication Medication Date Date Medication? Clinician (SIG) Name Name triamcinolo 2022- No [id number] 40mg Univers ne 09-29 9100 ity of acetonide 17:30: 16:30 [place] (KENALOG) 00 :00 Medical injection Branch 40 mg triamcinolo 2022- No [id number] 40mg 40 mg, Univers ne 09-29 9100 Intramus[place] ity of acetonide 17:30: 16:30 [place] 00 :00 1 dose, On Medi gregg injection Fri Branch 40 mg 09/29/22 at 1130, Routine triamcinolo 2022-0 2022- No [id number] 40mg Univers ne 09-29 9100 ity of acetonide 17:30: 16:30 [place] (KENALOG) 00 :00 Medical injection Branch 40 mg triamcinolo 2022-0 2022- No [id number] 40mg 40 mg, Univers ne 09-29 9100 Intramuscu ity of acetonide 17:30: 16:30 [place], [place] (KE[place]LOG) 00 :00 1 dose, On Medi gregg injection Fri Branch 40 mg 09/29/22 at 1130, Routine HYDROcodone 2021-08 No 1{tbl} 1 tablet, Univers -acetaminop 08-06 [...] at 0900, Until Discontinu ed, Routine metFORMIN 2021-0 Yes 500mg Take 500 Uni vers (GLUCOPHAGE 8-19 mg by ity of ) 500 mg 22:28: mouth 2 [place] tablet 42 (two) Medical times Branch daily with meals. simvastatin 2021-0 Yes 20mg Take 20 mg Univers (ZOCOR) 20 8-19 by mouth ity o f mg tablet 22:28: at [place] 42 bedtime. Medical Branch acetaminoph 2021-0 Yes acetaminop Univers en-codeine 8-19 hen 300 ity of 300-30 mg 22:28: mg-codeine [place] tablet 42 30 mg Medical tablet Branch TAKE 1 TABLET BY MOUTH TWICE DAILY NEEDED traZODone Yes trazodone Uni vers 150 mg 03-24 150 mg ity of tablet 22:28: tablet [place] 42 TAKE 1 TO Medical 2 TABLETS Branch BY MOUTH EVERY NIGHT AT BEDTIME NEEDED FOR INSOMNIA traMADoL 50 Yes tramadol Un yan mg tablet 03-24 50 mg ity of 22:28: tablet [place] 42 TAKE 1 Medical TABLET BY Branch MOUTH THREE TIMES DAILY sucralfate Yes sucralfate U nivers 1 gram 03-24 1 gram ity of tablet 22:28: tablet [place] 42 TAKE 1 Medical TABLET BY Branch MOUTH BEFORE MEALS AND AT BEDTIME spironolact Yes spironolac Univers one 25 mg - tone 25 mg ity of tablet 22:28: tablet [place] 42 TAKE 1 Medical TABLET BY Branch MOUTH EVERY DAY SITagliptin Yes Januvia Uni vers (JANUVIA) 03-24 100 mg ity of 100 mg 22:28: tablet [place] tablet 42 TAKE 1 Medical TABLET BY Branch MOUTH EVERY DAY FOR 16 DAYS QUEtiapine Yes quetiapine U nivers 300 mg 03-24 300 mg ity of tablet 22:28: tablet [place] 42 TAKE 1 Medical TABLET BY Branch MOUTH EVERY EVENING 1 TO 1.5 HOUR PRIOR TO BEDTIME WITH 300 CALORIES SNACK QUEtiapine Yes quetiapine U nivers 200 mg 03-24 200 mg ity of tablet 22:28: tablet [place] 42 TAKE 1 Medical TABLET BY Branch MOUTH TWICE DAILY pantoprazol Yes pantoprazo Univers e 40 mg EC 03-24 le 40 mg ity o f tablet 22:28: tablet,del [place] 42 ayed Medical release Branch TAKE 1 TABLET BY MOUTH EVERY DAY montelukast Yes montelukas Univers 10 mg 03-24 t 10 mg ity of tablet 22:28: tablet [place] 42 TAKE 1 Medical TABLET BY Branch MOUTH EVERY DAY IN THE EVENING methocarbam Yes methocarba Univers oL 500 mg 8 mol 500 mg ity of tablet 22:28: tablet [place] 42 TAKE 1 Medical TABLET BY Branch MOUTH THREE TIMES DAILY FOR 5 DAYS meloxicam Yes meloxicam Uni vers 15 mg 8-19 15 mg ity of tablet 22:28: tablet [place] 42 TAKE 1 Medical TABLET BY Branch MOUTH EVERY DAY losartan 50 Yes losartan Un yan mg tablet 8- 50 mg ity of 22:28: tablet [place] 42 TAKE 1 Medical TABLET BY Branch [...] 8- 500 mg ity of tablet 22:28: tablet,del [place] 42 ayed Medical release Branch TAKE 1 TABLET BY MOUTH DAILY amLODIPine Yes amlodipine U nivers 5 mg tablet - 5 mg ity of 22:28: tablet [place] 42 TAKE 1 Medical TABLET BY Branch [...] ity o f mg tablet 22:28: at [place] [address] bedtime. Medical Branch acetaminoph Yes acetaminop Univers en-codeine 8-19 hen 300 ity of 300-30 mg 22:28: mg-codeine [place] tablet 42 30 mg Medical tablet Branch TAKE 1 TABLET BY MOUTH TWICE DAILY NEEDED traZODone Yes trazodone Uni vers 150 mg 8-19 150 mg ity of tablet 22:28: tablet [place] 42 TAKE 1 TO Medical 2 TABLETS Branch BY MOUTH EVERY NIGHT AT BEDTIME NEEDED FOR INSOMNIA traMADoL 50 Yes tramadol Un yan mg tablet 8-19 50 mg ity of 22:28: tablet [place] 42 TAKE 1 Medical TABLET BY Branch MOUTH THREE TIMES DAILY sucralfate Yes sucralfate U nivers 1 gram - 1 gram ity of tablet 22:28: tablet [place] 42 TAKE 1 Medical TABLET BY Branch MOUTH BEFORE MEALS AND AT BEDTIME spironolact Yes spironolac Univers one 25 mg 8- tone 25 mg ity of tablet 22:28: tablet [place] 42 TAKE 1 Medical TABLET BY Branch MOUTH EVERY DAY SITagliptin Yes Januvia Uni vers (JANUVIA) 8- 100 mg ity of 100 mg 22:28: tablet [place] tablet 42 TAKE 1 Medical TABLET BY Branch MOUTH EVERY DAY FOR 16 DAYS QUEtiapine Yes quetiapine U nivers 300 mg 8- 300 mg ity of tablet 22:28: tablet [place] 42 TAKE 1 Medical TABLET BY Branch MOUTH EVERY EVENING 1 TO 1.5 HOUR PRIOR TO BEDTIME WITH 300 CALORIES SNACK QUEtiapine Yes quetiapine U nivers 200 mg 8- 200 mg ity of tablet 22:28: tablet [place] 42 TAKE 1 Medical TABLET BY Branch MOUTH TWICE DAILY pantoprazol Yes pantoprazo Univers e 40 mg EC 8- le 40 mg ity o f tablet 22:28: tablet,del [place] 42 ayed Medical release Branch TAKE 1 TABLET BY MOUTH EVERY DAY montelukast Yes montelukas Univers 10 mg 8- t 10 mg ity of tablet 22:28: tablet [place] 42 TAKE 1 Medical TABLET BY Branch MOUTH EVERY DAY IN THE EVENING methocarbam Yes methocarba Univers oL 500 mg 8- mol 500 mg ity of tablet 22:28: tablet [place] 42 TAKE 1 Medical TABLET BY Branch MOUTH THREE TIMES DAILY FOR 5 DAYS meloxicam Yes meloxicam Uni vers 15 mg 8-19 15 mg ity of tablet 22:28: tablet [place] 42 TAKE 1 Medical TABLET BY Branch MOUTH EVERY DAY losartan 50 Yes losartan Un yan mg tablet 8-19 50 mg ity of 22:28: tablet [place] 42 TAKE 1 Medical TABLET BY Branch MOUTH TWICE DAILY levothyroxi Yes levothyrox Univers ne 175 mcg 8- ine 175 ity of tablet 22:28: mcg tablet 42 TAKE 1 Medical TABLET BY Branch MOUTH EVERY MORNING gabapentin Yes gabapentin U nivers 300 mg 8-19 300 mg ity of capsule 22:28: capsule [place] 42 TAKE 1 Medical CAPSULE BY Branch MOUTH AT BEDTIME DULoxetine Yes duloxetine U nivers 60 mg 8-19 60 mg ity of capsule 22:28: capsule,de [place] 42 layed Medical release Branch TAKE 1 CAPSULE BY MOUTH TWICE DAILY divalproex Yes divalproex U nivers 500 mg EC 8-19 500 mg ity of tablet 22:28: tablet,del [place] 42 ayed Medical release Branch TAKE 1 TABLET BY MOUTH DAILY amLODIPine Yes amlodipine U nivers 5 mg tablet - 5 mg ity of 22:28: tablet [place] 42 TAKE 1 Medical TABLET BY Branch [...] ity o f mg tablet 22:28: at [place] [address] bedtime. Medical Branch acetaminoph Yes acetaminop Univers en-codeine 8-19 hen 300 ity of 300-30 mg 22:28: mg-codeine [place] tablet 42 30 mg Medical tablet Branch TAKE 1 TABLET BY MOUTH TWICE DAILY NEEDED traZODone Yes trazodone Uni vers 150 mg 8-19 150 mg ity of tablet 22:28: tablet [place] 42 TAKE 1 TO Medical 2 TABLETS Branch BY MOUTH EVERY NIGHT AT BEDTIME NEEDED FOR INSOMNIA traMADoL 50 2022-0 Yes tramadol Un yan mg tablet 03-24 50 mg ity of 22:28: tablet [place] 42 TAKE 1 Medical TABLET BY Branch MOUTH THREE TIMES DAILY sucralfate Yes sucralfate U nivers 1 gram 03-24 1 gram ity of tablet 22:28: tablet [place] 42 TAKE 1 Medical TABLET BY Branch MOUTH BEFORE MEALS AND AT BEDTIME spironolact Yes spironolac Univers one 25 mg 03-24 tone 25 mg ity of tablet 22:28: tablet [place] 42 TAKE 1 Medical TABLET BY Branch MOUTH EVERY DAY SITagliptin Yes Januvia Uni vers (JANUVIA) 03-24 100 mg ity of 100 mg 22:28: tablet [place] tablet 42 TAKE 1 Medical TABLET BY Branch MOUTH EVERY DAY FOR 16 DAYS QUEtiapine Yes quetiapine U nivers 300 mg 03-24 300 mg ity of tablet 22:28: tablet [place] 42 TAKE 1 Medical TABLET BY Branch MOUTH EVERY EVENING 1 TO 1.5 HOUR PRIOR TO BEDTIME WITH 300 CALORIES SNACK QUEtiapine Yes quetiapine U nivers 200 mg 03-24 200 mg ity of tablet 22:28: tablet [place] 42 TAKE 1 Medical TABLET BY Branch MOUTH TWICE DAILY pantoprazol Yes pantoprazo Univers e 40 mg EC 03-24 le 40 mg ity o f tablet 22:28: tablet,del [place] 42 ayed Medical release Branch TAKE 1 TABLET BY MOUTH EVERY DAY montelukast Yes montelukas Univers 10 mg 03-24 t 10 mg ity of tablet 22:28: tablet [place] 42 TAKE 1 Medical TABLET BY Branch MOUTH EVERY DAY IN THE EVENING methocarbam Yes methocarba Univers oL 500 mg 03-24 mol 500 mg ity of tablet 22:28: tablet [place] 42 TAKE 1 Medical TABLET BY Branch MOUTH THREE TIMES DAILY FOR 5 DAYS meloxicam Yes meloxicam Uni vers 15 mg 03-24 15 mg ity of tablet 22:28: tablet [place] 42 TAKE 1 Medical TABLET BY Branch MOUTH EVERY DAY losartan 50 Yes losartan Un yan mg tablet 03-24 50 mg ity of 22:28: tablet [place] 42 TAKE 1 Medical TABLET BY Branch [...] 500 mg ity of tablet 22:28: tablet,del [place] 42 ayed Medical release Branch TAKE 1 TABLET BY MOUTH DAILY amLODIPine Yes amlodipine U nivers 5 mg tablet 8- 5 mg ity of 22:28: tablet TAKE 1 Medical TABLET BY Branch MOUTH [...] ity o f mg tablet 22:28: at [place] [address] bedtime. Medical Branch acetaminoph Yes acetaminop Univers en-codeine 8-19 hen 300 ity of 300-30 mg 22:28: mg-codeine [place] tablet 42 30 mg Medical tablet Branch TAKE 1 TABLET BY MOUTH TWICE DAILY NEEDED traZODone Yes trazodone Uni vers 150 mg 8-19 150 mg ity of tablet 22:28: tablet [place] 42 TAKE 1 TO Medical 2 TABLETS Branch BY MOUTH EVERY NIGHT AT BEDTIME NEEDED FOR INSOMNIA traMADoL 50 Yes tramadol Un yan mg tablet 8-19 50 mg ity of 22:28: tablet [place] 42 TAKE 1 Medical TABLET BY Branch MOUTH THREE TIMES DAILY sucralfate Yes sucralfate U nivers 1 gram 8-19 1 gram ity of tablet 22:28: tablet [place] 42 TAKE 1 Medical TABLET BY Branch MOUTH BEFORE MEALS AND AT BEDTIME spironolact Yes spironolac Univers one 25 mg 03-24 tone 25 mg ity of tablet 22:28: tablet [place] 42 TAKE 1 Medical TABLET BY Branch MOUTH EVERY DAY SITagliptin Yes Januvia Uni vers (JANUVIA) 03-24 100 mg ity of 100 mg 22:28: tablet [place] tablet 42 TAKE 1 Medical TABLET BY Branch MOUTH EVERY DAY FOR 16 DAYS QUEtiapine Yes quetiapine U nivers 300 mg 03-24 300 mg ity of tablet 22:28: tablet [place] 42 TAKE 1 Medical TABLET BY Branch MOUTH EVERY EVENING 1 TO 1.5 HOUR PRIOR TO BEDTIME WITH 300 CALORIES SNACK QUEtiapine Yes quetiapine U nivers 200 mg 03-24 200 mg ity of tablet 22:28: tablet [place] 42 TAKE 1 Medical TABLET BY Branch MOUTH TWICE DAILY pantoprazol Yes pantoprazo Univers e 40 mg EC 03-24 le 40 mg ity o f tablet 22:28: tablet,del [place] 42 ayed Medical release Branch TAKE 1 TABLET BY MOUTH EVERY DAY montelukast Yes montelukas Univers 10 mg 03-24 t 10 mg ity of tablet 22:28: tablet [place] 42 TAKE 1 Medical TABLET BY Branch MOUTH EVERY DAY IN THE EVENING methocarbam Yes methocarba Univers oL 500 mg 03-24 mol 500 mg ity of tablet 22:28: tablet [place] 42 TAKE 1 Medical TABLET BY Branch MOUTH THREE TIMES DAILY FOR 5 DAYS meloxicam Yes meloxicam Uni vers 15 mg 03-24 15 mg ity of tablet 22:28: tablet [place] 42 TAKE 1 Medical TABLET BY Branch MOUTH EVERY DAY losartan 50 Yes losartan Un yan mg tablet 03-24 50 mg ity of :28: tablet [place] 42 TAKE 1 Medical TABLET BY Branch MOUTH TWICE DAILY levothyroxi Yes levothyrox Univers ne 175 mcg 03-24 ine 175 ity of tablet 22:28: mcg tablet [place] 42 TAKE 1 Medical TABLET BY Branch MOUTH EVERY MORNING gabapentin Yes gabapentin U nivers 300 mg 03-24 300 mg ity of capsule 22:28: capsule [place] 42 TAKE 1 Medical CAPSULE BY Branch MOUTH AT BEDTIME DULoxetine Yes duloxetine U nivers 60 mg 8-19 60 mg ity of capsule 22:28: capsule,de [place] 42 layed Medical release Branch TAKE 1 CAPSULE BY MOUTH TWICE DAILY divalproex Yes divalproex U nivers 500 mg EC 8-19 500 mg ity of tablet 22:28: tablet,del [place] 42 ayed Medical release Branch TAKE 1 TABLET BY MOUTH DAILY amLODIPine Yes amlodipine U nivers 5 mg tablet 8-19 5 mg ity of 22:28: tablet [place] 42 TAKE 1 Medical TABLET BY Branch [...] ity o f mg tablet 22:28: at [place] [address] bedtime. Medical Branch acetaminoph Yes acetaminop Univers en-codeine 8-19 hen 300 ity of 300-30 mg 22:28: mg-codeine [place] tablet 42 30 mg Medical tablet Branch TAKE 1 TABLET BY MOUTH TWICE DAILY NEEDED traZODone Yes trazodone Uni vers 150 mg 8-19 150 mg ity of tablet 22:28: tablet [place] 42 TAKE 1 TO Medical 2 TABLETS Branch BY MOUTH EVERY NIGHT AT BEDTIME NEEDED FOR INSOMNIA traMADoL 50 Yes tramadol Un yan mg tablet 8-19 50 mg ity of 22:28: tablet [place] 42 TAKE 1 Medical TABLET BY Branch MOUTH THREE TIMES DAILY sucralfate Yes sucralfate U nivers 1 gram 8-19 1 gram ity of tablet 22:28: tablet [place] 42 TAKE 1 Medical TABLET BY Branch MOUTH BEFORE MEALS AND AT BEDTIME spironolact Yes spironolac Univers one 25 mg 8- tone 25 mg ity of tablet 22:28: tablet [place] 42 TAKE 1 Medical TABLET BY Branch MOUTH EVERY DAY SITagliptin Yes Januvia Uni vers (JANUVIA) 8- 100 mg ity of 100 mg 22:28: tablet [place] tablet 42 TAKE 1 Medical TABLET BY Branch MOUTH EVERY DAY FOR 16 DAYS QUEtiapine Yes quetiapine U nivers 300 mg 8 300 mg ity of tablet 22:28: tablet [place] 42 TAKE 1 Medical TABLET BY Branch MOUTH EVERY EVENING 1 TO 1.5 HOUR PRIOR TO BEDTIME WITH 300 CALORIES SNACK QUEtiapine Yes quetiapine U nivers 200 mg 8 200 mg ity of tablet 22:28: tablet [place] 42 TAKE 1 Medical TABLET BY Branch MOUTH TWICE DAILY pantoprazol Yes pantoprazo Univers e 40 mg EC 03-24 le 40 mg ity o f tablet 22:28: tabletdel [place] 42 ayed Medical release Branch TAKE 1 TABLET BY MOUTH EVERY DAY montelukast Yes montelukas Univers 10 mg 03-24 t 10 mg ity of tablet 22:28: tablet [place] 42 TAKE 1 Medical TABLET BY Branch MOUTH EVERY DAY IN THE EVENING methocarbam Yes methocarba Univers oL 500 mg 03-24 mol 500 mg ity of tablet 22:28: tablet [place] 42 TAKE 1 Medical TABLET BY Branch MOUTH THREE TIMES DAILY FOR 5 DAYS meloxicam Yes meloxicam Uni vers 15 mg 03-24 15 mg ity of tablet 22:28: tablet [place] 42 TAKE 1 Medical TABLET BY Branch MOUTH EVERY DAY losartan 50 Yes losartan Un yan mg tablet 03-24 50 mg ity of 22:28: tablet [place] 42 TAKE 1 Medical TABLET BY Branch MOUTH TWICE DAILY levothyroxi Yes levothyrox Univers ne 175 mcg 03-24 ine 175 ity of tablet 22:28: mcg tablet [place] 42 TAKE 1 Medical TABLET BY Branch [...] 500 mg ity of tablet 22:28: tablet,del [place] 42 ayed Medical release Branch TAKE 1 TABLET BY MOUTH DAILY amLODIPine Yes amlodipine U nivers 5 mg tablet 8-19 5 mg ity of 22:28: tablet [place] 42 TAKE 1 Medical TABLET BY Branch [...] ity o f mg tablet 22:28: at [place] [address] bedtime. Medical Branch acetaminoph Yes acetaminop Univers en-codeine 8-19 hen 300 ity of 300-30 mg 22:28: mg-codeine [place] tablet 42 30 mg Medical tablet Branch TAKE 1 TABLET BY MOUTH TWICE DAILY NEEDED traZODone Yes trazodone Uni vers 150 mg 8- 150 mg ity of tablet 22:28: tablet [place] 42 TAKE 1 TO Medical 2 TABLETS Branch BY MOUTH EVERY NIGHT AT BEDTIME NEEDED FOR INSOMNIA traMADoL 50 Yes tramadol Un yan mg tablet - 50 mg ity of 22:28: tablet [place] 42 TAKE 1 Medical TABLET BY Branch MOUTH THREE TIMES DAILY sucralfate Yes sucralfate U nivers 1 gram 8- 1 gram ity of tablet 22:28: tablet [place] 42 TAKE 1 Medical TABLET BY Branch MOUTH BEFORE MEALS AND AT BEDTIME spironolact Yes spironolac Univers one 25 mg 8-19 tone 25 mg ity of tablet 22:28: tablet [place] 42 TAKE 1 Medical TABLET BY Branch MOUTH EVERY DAY SITagliptin Yes Januvia Uni vers (JANUVIA) 8-19 100 mg ity of 100 mg 22:28: tablet [place] tablet 42 TAKE 1 Medical TABLET BY Branch MOUTH EVERY DAY FOR 16 DAYS QUEtiapine Yes quetiapine U nivers 300 mg 8 300 mg ity of tablet 22:28: tablet [place] 42 TAKE 1 Medical TABLET BY Branch MOUTH EVERY EVENING 1 TO 1.5 HOUR PRIOR TO BEDTIME WITH 300 CALORIES SNACK QUEtiapine Yes quetiapine U nivers 200 mg 8 200 mg ity of tablet 22:28: tablet [place] 42 TAKE 1 Medical TABLET BY Branch MOUTH TWICE DAILY pantoprazol Yes pantoprazo [facility] e 40 mg EC 03-24 le 40 mg ity o f tablet 22:28: tablet,del [place] 42 ayed Medical release Branch TAKE 1 TABLET BY MOUTH EVERY DAY montelukast Yes montelukas Univers 10 mg 03-24 t 10 mg ity of tablet 22:28: tablet [place] 42 TAKE 1 Medical TABLET BY Branch MOUTH EVERY DAY IN THE EVENING methocarbam Yes methocarba [facility] oL 500 mg 03-24 mol 500 mg ity of tablet 22:28: tablet [place] 42 TAKE 1 Medical TABLET BY Branch MOUTH THREE TIMES DAILY FOR 5 DAYS meloxicam Yes meloxicam Uni vers 15 mg 03-24 15 mg ity of tablet 22:28: tablet [place] 42 TAKE 1 Medical TABLET BY Branch MOUTH EVERY DAY losartan 50 Yes losartan Un yan mg tablet 03-24 50 mg ity of 22:28: tablet [place] 42 TAKE 1 Medical TABLET BY Branch MOUTH TWICE DAILY levothyroxi Yes levothyrox Univers ne 175 mcg 03-24 ine 175 ity of tablet 22:28: mcg tablet [place] 42 TAKE 1 Medical TABLET BY Branch MOUTH EVERY MORNING gabapentin Yes gabapentin U nivers 300 mg 03-24 300 mg ity of capsule 22:28: capsule [place] 42 TAKE 1 Medical CAPSULE BY Branch MOUTH AT BEDTIME DULoxetine Yes duloxetine U nivers 60 mg 8 60 mg ity of capsule 22:28: [place] 42 layed Medical release [facility] TAKE 1 CAPSULE BY MOUTH TWICE DAILY divalproex Yes divalproex U nivers 500 mg EC 8 500 mg ity of tablet 22:28: tablet,del [place] 42 ayed Medical release Branch TAKE 1 TABLET BY MOUTH DAILY amLODIPine Yes amlodipine U nivers 5 mg tablet 8-19 5 mg ity of 22:28: tablet [place] 42 TAKE 1 Medical TABLET BY Branch [...] ity o f mg tablet 22:28: at [place] [address] bedtime. Medical Branch acetaminoph Yes acetaminop [facility] en-codeine 8-19 hen 300 ity of 300-30 mg 22:28: mg-codeine [place] tablet 42 30 mg Medical tablet Branch TAKE 1 TABLET BY MOUTH TWICE DAILY NEEDED traZODone Yes trazodone Uni vers 150 mg 8- 150 mg ity of tablet 22:28: tablet [place] 42 TAKE 1 TO Medical 2 TABLETS Branch BY MOUTH EVERY NIGHT AT BEDTIME NEEDED FOR INSOMNIA traMADoL 50 Yes tramadol Un yan mg tablet 8- 50 mg ity of 22:28: tablet [place] 42 TAKE 1 Medical TABLET BY Branch MOUTH THREE TIMES DAILY sucralfate Yes sucralfate U nivers 1 gram 8-19 1 gram ity of tablet 22:28: tablet [place] 42 TAKE 1 Medical TABLET BY Branch MOUTH BEFORE MEALS AND AT BEDTIME spironolact Yes spironolac Univers one 25 mg 8-19 tone 25 mg ity of tablet 22:28: tablet [place] 42 TAKE 1 Medical TABLET BY Branch MOUTH EVERY DAY SITagliptin Yes Januvia Uni vers (JANUVIA) 8-19 100 mg ity of 100 mg 22:28: tablet [place] tablet 42 TAKE 1 Medical TABLET BY Branch MOUTH EVERY DAY FOR 16 DAYS QUEtiapine Yes quetiapine U nivers 300 mg 8-19 300 mg ity of tablet 22:28: tablet [place] 42 TAKE 1 Medical TABLET BY Branch MOUTH EVERY EVENING 1 TO 1.5 HOUR PRIOR TO BEDTIME WITH 300 CALORIES SNACK QUEtiapine Yes quetiapine U nivers 200 mg 8 200 mg ity of tablet 22:28: tablet [place] 42 TAKE 1 Medical TABLET BY Branch MOUTH TWICE DAILY pantoprazol Yes pantoprazo [facility] e 40 mg EC 8 le 40 mg ity o f tablet 22:28: tablet,del [place] 42 ayed Medical release [place] TAKE 1 TABLET BY MOUTH EVERY DAY montelukast Yes montelukas Univers 10 mg 03-24 t 10 mg ity of tablet 22:28: tablet [place] 42 TAKE 1 Medical TABLET BY Branch MOUTH EVERY DAY IN THE EVENING methocarbam Yes methocarba [facility] oL 500 mg 03-24 mol 500 mg ity of tablet 22:28: tablet [place] 42 TAKE 1 Medical TABLET BY Branch MOUTH THREE TIMES DAILY FOR 5 DAYS meloxicam Yes meloxicam Uni vers 15 mg 8 15 mg ity of tablet 22:28: tablet [place] 42 TAKE 1 Medical TABLET BY Branch MOUTH EVERY DAY losartan 50 Yes losartan Un yan mg tablet 03-24 50 mg ity of :28: tablet [place] 42 TAKE 1 Medical TABLET BY Branch MOUTH TWICE DAILY levothyroxi Yes levothyrox Univers ne 175 mcg 8- ine 175 ity of tablet 22:28: mcg tablet [place] 42 TAKE 1 Medical TABLET BY Branch MOUTH EVERY MORNING gabapentin Yes gabapentin U nivers 300 mg 03-24 300 mg ity of capsule 22:28: capsule [place] 42 TAKE 1 Medical CAPSULE BY Branch MOUTH AT BEDTIME DULoxetine Yes duloxetine U nivers 60 mg 03-24 60 mg ity of capsule 22:28: capsule,[place] 42 layed Medical release [place] TAKE 1 CAPSULE BY MOUTH TWICE DAILY divalproex Yes divalproex U nivers 500 mg EC 03-24 500 mg ity of tablet 22:28: tablet,del [place] 42 ay Medical release [place] TAKE 1 TABLET BY MOUTH DAILY amLODIPine Yes amlodipine U nivers 5 mg tablet 03-24 5 mg ity of 22:28: tablet [place] 42 TAKE 1 Medical TABLET BY Branch [...] ity o f mg tablet 22:28: at [place] [address] bedtime. Medical Branch acetaminoph Yes acetaminop [facility] en-codeine 8-19 hen 300 ity of 300-30 mg 22:28: mg-codeine [place] tablet 42 30 mg Medical tablet Branch TAKE 1 TABLET BY MOUTH TWICE DAILY NEEDED traZODone Yes trazodone Uni vers 150 mg 8- 150 mg ity of tablet 22:28: tablet [place] 42 TAKE 1 TO Medical 2 TABLETS Branch BY MOUTH EVERY NIGHT AT BEDTIME NEEDED FOR INSOMNIA traMADoL 50 Yes tramadol Un yan mg tablet 03-24 50 mg ity of 22:28: tablet [place] 42 TAKE 1 Medical TABLET BY Branch MOUTH THREE TIMES DAILY sucralfate Yes sucralfate U nivers 1 gram 8-19 1 gram ity of tablet 22:28: tablet [place] 42 TAKE 1 Medical TABLET BY Branch MOUTH BEFORE MEALS AND AT BEDTIME spironolact Yes spironolac Univers one 25 mg 8- tone 25 mg ity of tablet 22:28: tablet [place] 42 TAKE 1 Medical TABLET BY Branch MOUTH EVERY DAY SITagliptin Yes Januvia Uni vers (JANUVIA) 8- 100 mg ity of 100 mg 22:28: tablet [place] tablet 42 TAKE 1 Medical TABLET BY Branch MOUTH EVERY DAY FOR 16 DAYS QUEtiapine Yes quetiapine U nivers 300 mg 8- 300 mg ity of tablet 22:28: tablet [place] 42 TAKE 1 Medical TABLET BY Branch MOUTH EVERY EVENING 1 TO 1.5 HOUR PRIOR TO BEDTIME WITH 300 CALORIES SNACK QUEtiapine Yes quetiapine U nivers 200 mg 03-24 200 mg ity of tablet 22:28: tablet [place] [address] TAKE 1 Medical TABLET BY Branch MOUTH TWICE DAILY pantoprazol Yes pantoprazo Univers e 40 mg EC 8 le 40 mg ity o f tablet 22:28: tablet,del [place] 42 ayed Medical [facility] TAKE 1 TABLET BY MOUTH EVERY DAY montelukast Yes montelukas Univers 10 mg 03-24 t 10 mg ity of tablet 22:28: tablet [place] 42 TAKE 1 Medical TABLET BY Branch MOUTH EVERY DAY IN THE EVENING methocarbam Yes methocarba Univers oL 500 mg 03-24 mol 500 mg ity of tablet 22:28: tablet [place] 42 TAKE 1 Medical TABLET BY Branch MOUTH THREE TIMES DAILY FOR 5 DAYS meloxicam Yes meloxicam Uni vers 15 mg 03-24 15 mg ity of tablet 22:28: tablet [place] 42 TAKE 1 Medical TABLET BY Branch MOUTH EVERY DAY losartan 50 Yes losartan Un yan mg tablet 03-24 50 mg ity of 22:28: tablet [place] 42 TAKE 1 Medical TABLET BY Branch MOUTH TWICE DAILY levothyroxi Yes levothyrox Univers ne 175 mcg 03-24 ine 175 ity of tablet 22:28: mcg tablet [place] 42 TAKE 1 Medical TABLET BY Branch MOUTH EVERY MORNING gabapentin Yes gabapentin U nivers 300 mg 03-24 300 mg ity of capsule 22:28: capsule [place] [address] TAKE 1 Medical CAPSULE BY Branch MOUTH AT BEDTIME DULoxetine Yes duloxetine U nivers 60 mg 03-24 60 mg ity [facility] capsule 22:28: [place] [facility] TW[facility] DAILY divalproex Yes divalproex U nivers 500 mg EC 03-24 500 mg ity of tablet 22:28: tablet,[place] [address] [facility] DAILY amLODIPine Yes amlodipine U nivers 5 mg tablet 03-24 5 mg ity of 22:28: tablet [place] 42 TAKE 1 Medical TABLET BY Branch [...] ity o f mg tablet 22:28: at [place] [address] bedtime. Medical Branch acetaminoph Yes acetaminop Univers en-codeine 8-19 hen 300 ity of 300-30 mg 22:28: mg-codeine [place] tablet 42 30 mg Medical tablet Branch TAKE 1 TABLET BY MOUTH TWICE DAILY NEEDED traZODone Yes trazodone Uni vers 150 mg 8- 150 mg ity of tablet 22:28: tablet [place] 42 TAKE 1 TO Medical 2 TABLETS Branch BY MOUTH EVERY NIGHT AT BEDTIME NEEDED FOR INSOMNIA traMADoL 50 Yes tramadol Un yan mg tablet 03-24 50 mg ity of 22:28: tablet [place] 42 TAKE 1 Medical TABLET BY Branch MOUTH THREE TIMES DAILY sucralfate Yes sucralfate U nivers 1 gram - 1 gram ity of tablet 22:28: tablet [place] 42 TAKE 1 Medical TABLET BY Branch MOUTH BEFORE MEALS AND AT BEDTIME spironolact Yes spironolac Univers one 25 mg 8-19 tone 25 mg ity of tablet 22:28: tablet [place] 42 TAKE 1 Medical TABLET BY Branch MOUTH EVERY DAY SITagliptin Yes Januvia Uni vers (JANUVIA) 8- 100 mg ity of 100 mg 22:28: tablet [place] tablet 42 TAKE 1 Medical TABLET BY Branch MOUTH EVERY DAY FOR 16 DAYS QUEtiapine Yes quetiapine U nivers 300 mg 8- 300 mg ity of tablet 22:28: tablet [place] 42 TAKE 1 Medical TABLET BY Branch MOUTH EVERY EVENING 1 TO 1.5 HOUR PRIOR TO BEDTIME WITH 300 CALORIES SNACK QUEtiapine Yes quetiapine U nivers 200 mg 8-19 200 mg ity of tablet 22:28: tablet [place] 42 TAKE 1 Medical TABLET BY Branch MOUTH TWICE DAILY pantoprazol Yes pantoprazo Univers e 40 mg EC 8- le 40 mg ity o f tablet 22:28: tablet,del [place] 42 ay Medical [facility] TAKE 1 TABLET BY MOUTH EVERY DAY montelukast Yes montelukas Univers 10 mg 8- t 10 mg ity of tablet 22:28: tablet [place] 42 TAKE 1 Medical TABLET BY Branch MOUTH EVERY DAY IN THE EVENING methocarbam Yes methocarba Univers oL 500 mg 8 mol 500 mg ity of tablet 22:28: tablet [place] 42 TAKE 1 Medical TABLET BY Branch MOUTH THREE TIMES DAILY FOR 5 DAYS meloxicam Yes meloxicam Uni vers 15 mg 8- 15 mg ity of tablet 22:28: tablet [place] 42 TAKE 1 Medical TABLET BY Branch MOUTH EVERY DAY losartan 50 Yes losartan Un yan mg tablet 03-24 50 mg ity of 22:28: tablet [place] 42 TAKE 1 Medical TABLET BY Branch MOUTH TWICE DAILY levothyroxi Yes levothyrox Univers ne 175 mcg 03-24 ine 175 ity of tablet 22:28: mcg tablet [place] 42 TAKE 1 Medical TABLET BY Branch MOUTH EVERY MORNING gabapentin Yes gabapentin U nivers 300 mg 03-24 300 mg ity of capsule 22:28: capsule [place] 42 TAKE 1 Medical CAPSULE BY Branch MOUTH AT BEDTIME DULoxetine Yes duloxetine U nivers 60 mg 03-24 60 mg ity of capsule 22:28: [facility] [facility] MOUTH TWICE DAILY divalproex Yes divalproex U nivers 500 mg EC 03-24 500 mg ity of tablet 22:28: tablet,del [place] 42 [facility] Medical [facility] TAKE 1 TABLET BY MOUTH DAILY amLODIPine Yes amlodipine U nivers 5 mg tablet 03-24 5 mg ity of 22:28: tablet [place] 42 TAKE 1 Medical TABLET BY Branch [...] ity o f mg tablet 22:28: at [place] [address] bedtime. Medical Branch acetaminoph Yes acetaminop Univers en-codeine 8- hen 300 ity of 300-30 mg 22:28: mg-codeine [place] tablet 42 30 mg Medical tablet Branch TAKE 1 TABLET BY MOUTH TWICE DAILY NEEDED traZODone Yes trazodone Uni vers 150 mg 8- 150 mg ity of tablet 22:28: tablet [place] 42 TAKE 1 TO Medical 2 TABLETS Branch BY MOUTH EVERY NIGHT AT BEDTIME NEEDED FOR INSOMNIA traMADoL 50 Yes tramadol Un yan mg tablet 03-24 50 mg ity of 22:28: tablet [place] 42 TAKE 1 Medical TABLET BY Branch MOUTH THREE TIMES DAILY sucralfate Yes sucralfate U nivers 1 gram - 1 gram ity of tablet 22:28: tablet [place] 42 TAKE 1 Medical TABLET BY Branch MOUTH BEFORE MEALS AND AT BEDTIME spironolact Yes spironolac Univers one 25 mg - tone 25 mg ity of tablet 22:28: tablet [place] 42 TAKE 1 Medical TABLET BY Branch MOUTH EVERY DAY SITagliptin Yes Januvia Uni vers (JANUVIA) 8- 100 mg ity of 100 mg 22:28: tablet [place] tablet 42 TAKE 1 Medical TABLET BY Branch MOUTH EVERY DAY FOR 16 DAYS QUEtiapine Yes quetiapine U nivers 300 mg 8- 300 mg ity of tablet 22:28: tablet [place] 42 TAKE 1 Medical TABLET BY Branch MOUTH EVERY EVENING 1 TO 1.5 HOUR PRIOR TO BEDTIME WITH 300 CALORIES SNACK QUEtiapine Yes quetiapine U nivers 200 mg 8-19 200 mg ity of tablet 22:28: tablet [place] 42 TAKE 1 Medical TABLET BY Branch MOUTH TWICE DAILY pantoprazol Yes pantoprazo Univers e 40 mg EC 8- le 40 mg ity o f tablet 22:28: tablet,del [place] 42 ayed Medical release Branch TAKE 1 TABLET BY MOUTH EVERY DAY montelukast Yes montelukas Univers 10 mg 8- t 10 mg ity of tablet 22:28: tablet [place] 42 TAKE 1 Medical TABLET BY Branch MOUTH EVERY DAY IN THE EVENING methocarbam Yes methocarba Univers oL 500 mg 8-19 mol 500 mg ity of tablet 22:28: tablet [place] 42 TAKE 1 Medical TABLET BY Branch MOUTH THREE TIMES DAILY FOR 5 DAYS meloxicam Yes meloxicam Uni vers 15 mg 8- 15 mg ity of tablet 22:28: tablet [place] 42 TAKE 1 Medical TABLET BY Branch MOUTH EVERY DAY losartan 50 Yes losartan Un yan mg tablet 8- 50 mg ity of 22:28: tablet [place] 42 TAKE 1 Medical TABLET BY Branch MOUTH TWICE DAILY levothyroxi Yes levothyrox Univers ne 175 mcg 8- ine 175 ity of tablet 22:28: mcg tablet [place] 42 TAKE 1 Medical TABLET BY Branch MOUTH EVERY MORNING gabapentin Yes gabapentin U nivers 300 mg 8- 300 mg ity of capsule 22:28: capsule [place] 42 TAKE 1 Medical CAPSULE BY Branch MOUTH AT BEDTIME DULoxetine Yes duloxetine U nivers 60 mg 8-19 60 mg ity of capsule 22:28: capsule[place] 42 layed Medical release Branch TAKE 1 CAPSULE BY MOUTH TWICE DAILY divalproex Yes divalproex U nivers 500 mg EC 8- 500 mg ity of tablet 22:28: tablet,del [place] 42 ayed Medical release [place] TAKE 1 TABLET BY MOUTH DAILY amLODIPine Yes amlodipine U nivers 5 mg tablet 8- 5 mg ity of 22:28: tablet [place] 42 TAKE 1 Medical TABLET BY Branch [...] ity o f mg tablet 22:28: at [place] [address] bedtime. Medical Branch acetaminoph Yes acetaminop Univers en-codeine 03-24 hen 300 ity of 300-30 mg 22:28: mg-codeine [place] tablet 42 30 mg Medical tablet Branch TAKE 1 TABLET BY MOUTH TWICE DAILY NEEDED traZODone Yes trazodone Uni vers 150 mg 03-24 150 mg ity of tablet 22:28: tablet [place] 42 TAKE 1 TO Medical 2 TABLETS Branch BY MOUTH EVERY NIGHT AT BEDTIME NEEDED FOR INSOMNIA traMADoL 50 Yes tramadol Un yan mg tablet 03-24 50 mg ity of 22:28: tablet [place] 42 TAKE 1 Medical TABLET BY Branch MOUTH THREE TIMES DAILY sucralfate Yes sucralfate U nivers 1 gram 03-24 1 gram ity of tablet 22:28: tablet [place] 42 TAKE 1 Medical TABLET BY Branch MOUTH BEFORE MEALS AND AT BEDTIME spironolact Yes spironolac Univers one 25 mg 03-24 tone 25 mg ity of tablet 22:28: tablet [place] 42 TAKE 1 Medical TABLET BY Branch MOUTH EVERY DAY SITagliptin Yes Januvia Uni vers (JANUVIA) 03-24 100 mg ity of 100 mg 22:28: tablet [place] tablet 42 TAKE 1 Medical TABLET BY Branch MOUTH EVERY DAY FOR 16 DAYS QUEtiapine Yes quetiapine U nivers 300 mg 03-24 300 mg ity of tablet 22:28: tablet [place] 42 TAKE 1 Medical TABLET BY Branch MOUTH EVERY EVENING 1 TO 1.5 HOUR PRIOR TO BEDTIME WITH 300 CALORIES SNACK QUEtiapine Yes quetiapine U nivers 200 mg 03-24 200 mg ity of tablet 22:28: tablet [place] 42 TAKE 1 Medical TABLET BY Branch MOUTH TWICE DAILY pantoprazol Yes pantoprazo Univers e 40 mg EC 03-24 le 40 mg ity o f tablet 22:28: tablet,del [place] 42 ayed Medical release Branch TAKE 1 TABLET BY MOUTH EVERY DAY montelukast Yes montelukas Univers 10 mg - t 10 mg ity of tablet 22:28: tablet [place] 42 TAKE 1 Medical TABLET BY Branch MOUTH EVERY DAY IN THE EVENING methocarbam Yes methocarba Univers oL 500 mg 8-19 mol 500 mg ity of tablet 22:28: tablet [place] 42 TAKE 1 Medical TABLET BY Branch MOUTH THREE TIMES DAILY FOR 5 DAYS meloxicam Yes meloxicam Uni vers 15 mg 8-19 15 mg ity of tablet 22:28: tablet [place] 42 TAKE 1 Medical TABLET BY Branch MOUTH EVERY DAY losartan 50 Yes losartan Un yan mg tablet 8- 50 mg ity of 22:28: tablet [place] 42 TAKE 1 Medical TABLET BY Branch MOUTH TWICE DAILY levothyroxi Yes levothyrox Univers ne 175 mcg 8- ine 175 ity of tablet 22:28: mcg tablet [place] 42 TAKE 1 Medical TABLET BY Branch MOUTH EVERY MORNING gabapentin Yes gabapentin U nivers 300 mg 8- 300 mg ity of capsule 22:28: capsule [place] 42 TAKE 1 Medical CAPSULE BY Branch MOUTH AT BEDTIME DULoxetine Yes duloxetine U nivers 60 mg 8-19 60 mg ity of capsule 22:28: capsule,[place] 42 layed Medical release Branch TAKE 1 CAPSULE BY MOUTH TWICE DAILY divalproex Yes divalproex U nivers 500 mg EC 8-19 500 mg ity of tablet 22:28: tablet,del [place] 42 ayed Medical release [place] TAKE 1 TABLET BY MOUTH DAILY amLODIPine Yes amlodipine U nivers 5 mg tablet - 5 mg ity of 22:28: tablet [place] 42 TAKE 1 Medical TABLET BY Branch [...] ity o f mg tablet 22:28: at [place] [address] bedtime. Medical Branch acetaminoph Yes acetaminop Univers en-codeine 8-19 hen 300 ity of 300-30 mg 22:28: mg-codeine [place] tablet 42 30 mg Medical tablet Branch TAKE 1 TABLET BY MOUTH TWICE DAILY NEEDED traZODone Yes trazodone Uni vers 150 mg 03-24 150 mg ity of tablet 22:28: tablet [place] 42 TAKE 1 TO Medical 2 TABLETS Branch BY MOUTH EVERY NIGHT AT BEDTIME NEEDED FOR INSOMNIA traMADoL 50 Yes tramadol Un yan mg tablet 03-24 50 mg ity of 22:28: tablet [place] 42 TAKE 1 Medical TABLET BY Branch MOUTH THREE TIMES DAILY sucralfate Yes sucralfate U nivers 1 gram 03-24 1 gram ity of tablet 22:28: tablet [place] 42 TAKE 1 Medical TABLET BY Branch MOUTH BEFORE MEALS AND AT BEDTIME spironolact Yes spironolac Univers one 25 mg 03-24 tone 25 mg ity of tablet 22:28: tablet [place] 42 TAKE 1 Medical TABLET BY Branch MOUTH EVERY DAY SITagliptin Yes Januvia Uni vers (JANUVIA) 03-24 100 mg ity of 100 mg 22:28: tablet [place] tablet 42 TAKE 1 Medical TABLET BY Branch MOUTH EVERY DAY FOR 16 DAYS QUEtiapine Yes quetiapine U nivers 300 mg 03-24 300 mg ity of tablet 22:28: tablet [place] 42 TAKE 1 Medical TABLET BY Branch MOUTH EVERY EVENING 1 TO 1.5 HOUR PRIOR TO BEDTIME WITH 300 CALORIES SNACK QUEtiapine Yes quetiapine U nivers 200 mg 03-24 200 mg ity of tablet 22:28: tablet [place] 42 TAKE 1 Medical TABLET BY Branch MOUTH TWICE DAILY pantoprazol Yes pantoprazo Univers e 40 mg EC 03-24 le 40 mg ity o f tablet 22:28: tablet,del [place] 42 ayed Medical release Branch TAKE 1 TABLET BY MOUTH EVERY DAY montelukast Yes montelukas Univers 10 mg 03-24 t 10 mg ity of tablet 22:28: tablet [place] 42 TAKE 1 Medical TABLET BY Branch MOUTH EVERY DAY IN THE EVENING methocarbam Yes methocarba Univers oL 500 mg 03-24 mol 500 mg ity of tablet 22:28: tablet [place] 42 TAKE 1 Medical TABLET BY Branch MOUTH THREE TIMES DAILY FOR 5 DAYS meloxicam Yes meloxicam Uni vers 15 mg 8-19 15 mg ity of tablet 22:28: tablet [place] 42 TAKE 1 Medical TABLET BY Branch MOUTH EVERY DAY losartan 50 Yes losartan Un yan mg tablet 8-19 50 mg ity of 22:28: tablet [place] 42 TAKE 1 Medical TABLET BY Branch MOUTH TWICE DAILY levothyroxi Yes levothyrox Univers ne 175 mcg 8- ine 175 ity of tablet 22:28: [place] 42 TAKE 1 Medical TABLET BY Branch MOUTH EVERY MORNING gabapentin Yes gabapentin U nivers 300 mg 8- 300 mg ity of capsule 22:28: capsule [place] 42 TAKE 1 Medical CAPSULE BY Branch MOUTH AT BEDTIME DULoxetine Yes duloxetine U nivers 60 mg 8- 60 mg ity of capsule 22:28: capsule[place] 42 layed Medical release Branch TAKE 1 CAPSULE BY MOUTH TWICE DAILY divalproex Yes divalproex U nivers 500 mg EC 8-19 500 mg ity of tablet 22:28: tablet,del [place] 42 ayed Medical release Branch TAKE 1 TABLET BY MOUTH DAILY amLODIPine Yes amlodipine U nivers 5 mg tablet 8-19 5 mg ity of 22:28: tablet [place] 42 TAKE 1 Medical TABLET BY Branch [...] ity o f mg tablet 22:28: at [place] 42 bedtime. Medical Branch acetaminoph Yes acetaminop Univers en-codeine 8-19 hen 300 ity of 300-30 mg 22:28: mg-codeine [place] tablet 42 30 mg Medical tablet Branch TAKE 1 TABLET BY MOUTH TWICE DAILY NEEDED traZODone 2022-0 Yes trazodone Uni vers 150 mg 8- 150 mg ity of tablet 22:28: tablet [place] 42 TAKE 1 TO Medical 2 TABLETS Branch BY MOUTH EVERY NIGHT AT BEDTIME NEEDED FOR INSOMNIA traMADoL 50 Yes tramadol Un yan mg tablet 8-19 50 mg ity of 22:28: tablet [place] 42 TAKE 1 Medical TABLET BY Branch MOUTH THREE TIMES DAILY sucralfate Yes sucralfate U nivers 1 gram 8- 1 gram ity of tablet 22:28: tablet [place] 42 TAKE 1 Medical TABLET BY Branch MOUTH BEFORE MEALS AND AT BEDTIME spironolact Yes spironolac Univers one 25 mg 8- tone 25 mg ity of tablet 22:28: tablet [place] 42 TAKE 1 Medical TABLET BY Branch MOUTH EVERY DAY SITagliptin Yes Januvia Uni vers (JANUVIA) 8- 100 mg ity of 100 mg 22:28: tablet [place] tablet 42 TAKE 1 Medical TABLET BY Branch MOUTH EVERY DAY FOR 16 DAYS QUEtiapine Yes quetiapine U nivers 300 mg 8- 300 mg ity of tablet 22:28: tablet [place] 42 TAKE 1 Medical TABLET BY Branch MOUTH EVERY EVENING 1 TO 1.5 HOUR PRIOR TO BEDTIME WITH 300 CALORIES SNACK QUEtiapine Yes quetiapine U nivers 200 mg 8- 200 mg ity of tablet 22:28: tablet [place] 42 TAKE 1 Medical TABLET BY Branch MOUTH TWICE DAILY pantoprazol Yes pantoprazo Univers e 40 mg EC 8- le 40 mg ity o f tablet 22:28: tablet,del [place] 42 ayed Medical release Branch TAKE 1 TABLET BY MOUTH EVERY DAY montelukast Yes montelukas Univers 10 mg 8- t 10 mg ity of tablet 22:28: tablet [place] 42 TAKE 1 Medical TABLET BY Branch MOUTH EVERY DAY IN THE EVENING methocarbam Yes methocarba Univers oL 500 mg 8- mol 500 mg ity of tablet 22:28: tablet [place] 42 TAKE 1 Medical TABLET BY Branch MOUTH THREE TIMES DAILY FOR 5 DAYS meloxicam Yes meloxicam Uni vers 15 mg 8-19 15 mg ity of tablet 22:28: tablet [place] 42 TAKE 1 Medical TABLET BY Branch MOUTH EVERY DAY losartan 50 Yes losartan Un yan mg tablet 8-19 50 mg ity of 22:28: tablet [place] 42 TAKE 1 Medical TABLET BY Branch MOUTH TWICE DAILY levothyroxi Yes levothyrox Univers ne 175 mcg 8- ine 175 ity of tablet 22:28: mcg tablet [place] 42 TAKE 1 Medical TABLET BY Branch MOUTH EVERY MORNING gabapentin Yes gabapentin U nivers 300 mg 8-19 300 mg ity of capsule 22:28: capsule [place] 42 TAKE 1 Medical CAPSULE BY Branch MOUTH AT BEDTIME DULoxetine Yes duloxetine U nivers 60 mg 8-19 60 mg ity of capsule 22:28: capsule[place] 42 layed Medical release Branch TAKE 1 CAPSULE BY MOUTH TWICE DAILY divalproex Yes divalproex U nivers 500 mg EC 8-19 500 mg ity of tablet 22:28: tablet,del [place] 42 ayed Medical release Branch TAKE 1 TABLET BY MOUTH DAILY amLODIPine Yes amlodipine U nivers 5 mg tablet 8- 5 mg ity of 22:28: tablet [place] 42 TAKE 1 Medical TABLET BY Branch [...] ity o f mg tablet 22:28: at [place] 42 bedtime. Medical Branch acetaminoph Yes acetaminop Univers en-codeine 8-19 hen 300 ity of 300-30 mg 22:28: mg-codeine [place] tablet 42 30 mg Medical tablet Branch TAKE 1 TABLET BY MOUTH TWICE DAILY NEEDED traZODone Yes trazodone Uni vers 150 mg 8-19 150 mg ity of tablet 22:28: tablet [place] 42 TAKE 1 TO Medical 2 TABLETS Branch BY MOUTH EVERY NIGHT AT BEDTIME NEEDED FOR INSOMNIA traMADoL 50 Yes tramadol Un ayn mg tablet 03-24 50 mg ity of 22:28: tablet [place] 42 TAKE 1 Medical TABLET BY Branch MOUTH THREE TIMES DAILY sucralfate Yes sucralfate U nivers 1 gram 03-24 1 gram ity of tablet 22:28: tablet [place] 42 TAKE 1 Medical TABLET BY Branch MOUTH BEFORE MEALS AND AT BEDTIME spironolact Yes spironolac Univers one 25 mg 03-24 tone 25 mg ity of tablet 22:28: tablet [place] 42 TAKE 1 Medical TABLET BY Branch MOUTH EVERY DAY SITagliptin Yes Januvia Uni vers (JANUVIA) 03-24 100 mg ity of 100 mg 22:28: tablet [place] tablet 42 TAKE 1 Medical TABLET BY Branch MOUTH EVERY DAY FOR 16 DAYS QUEtiapine Yes quetiapine U nivers 300 mg 03-24 300 mg ity of tablet 22:28: tablet [place] 42 TAKE 1 Medical TABLET BY Branch MOUTH EVERY EVENING 1 TO 1.5 HOUR PRIOR TO BEDTIME WITH 300 CALORIES SNACK QUEtiapine Yes quetiapine U nivers 200 mg 03-24 200 mg ity of tablet 22:28: tablet [place] 42 TAKE 1 Medical TABLET BY Branch MOUTH TWICE DAILY pantoprazol Yes pantoprazo Univers e 40 mg EC 03-24 le 40 mg ity o f tablet 22:28: tablet,del [place] 42 ayed Medical release Branch TAKE 1 TABLET BY MOUTH EVERY DAY montelukast Yes montelukas Univers 10 mg 03-24 t 10 mg ity of tablet 22:28: tablet [place] 42 TAKE 1 Medical TABLET BY Branch MOUTH EVERY DAY IN THE EVENING methocarbam Yes methocarba [facility] oL 500 mg 03-24 mol 500 mg ity of tablet 22:28: tablet [place] 42 TAKE 1 Medical TABLET BY Branch MOUTH THREE TIMES DAILY FOR 5 DAYS meloxicam Yes meloxicam Uni vers 15 mg 03-24 15 mg ity of tablet 22:28: tablet [place] 42 TAKE 1 Medical TABLET BY Branch MOUTH EVERY DAY losartan 50 Yes losartan Un yan mg tablet 03-24 50 mg ity of 22:28: tablet [place] 42 TAKE 1 Medical TABLET BY Branch [...] 500 mg ity of tablet 22:28: tablet,del [place] 42 ayed Medical release Branch TAKE 1 TABLET BY MOUTH DAILY amLODIPine Yes amlodipine U nivers 5 mg tablet 8- 5 mg ity of 22:28: tablet [place] TAKE 1 Medical TABLET BY Branch MOUTH [...] ity o f mg tablet 22:28: at [place] [address] bedtime. Medical Branch acetaminoph Yes acetaminop [facility] en-codeine 8-19 hen 300 ity of 300-30 mg 22:28: mg-codeine [place] tablet 42 30 mg Medical tablet Branch TAKE 1 TABLET BY MOUTH TWICE DAILY NEEDED traZODone Yes trazodone Uni vers 150 mg 8-19 150 mg ity of tablet 22:28: tablet [place] 42 TAKE 1 TO Medical 2 TABLETS Branch BY MOUTH EVERY NIGHT AT BEDTIME NEEDED FOR INSOMNIA traMADoL 50 Yes tramadol Un yan mg tablet 8-19 50 mg ity of 22:28: tablet [place] 42 TAKE 1 Medical TABLET BY Branch MOUTH THREE TIMES DAILY sucralfate Yes sucralfate U nivers 1 gram 03-24 1 gram ity of tablet 22:28: tablet [place] 42 TAKE 1 Medical TABLET BY Branch MOUTH BEFORE MEALS AND AT BEDTIME spironolact Yes spironolac Univers one 25 mg - tone 25 mg ity of tablet 22:28: tablet [place] 42 TAKE 1 Medical TABLET BY Branch MOUTH EVERY DAY SITagliptin Yes Januvia Uni vers (JANUVIA) 03-24 100 mg ity of 100 mg 22:28: tablet [place] tablet 42 TAKE 1 Medical TABLET BY Branch MOUTH EVERY DAY FOR 16 DAYS QUEtiapine Yes quetiapine U nivers 300 mg 03-24 300 mg ity of tablet 22:28: tablet [place] 42 TAKE 1 Medical TABLET BY Branch MOUTH EVERY EVENING 1 TO 1.5 HOUR PRIOR TO BEDTIME WITH 300 CALORIES SNACK QUEtiapine Yes quetiapine U nivers 200 mg 03-24 200 mg ity of tablet 22:28: tablet [place] 42 TAKE 1 Medical TABLET BY Branch MOUTH TWICE DAILY pantoprazol Yes pantoprazo Univers e 40 mg EC 03-24 le 40 mg ity o f tablet 22:28: tablet,del [place] 42 ayed Medical release Branch TAKE 1 TABLET BY MOUTH EVERY DAY montelukast Yes montelukas Univers 10 mg 03-24 t 10 mg ity of tablet 22:28: tablet [place] 42 TAKE 1 Medical TABLET BY Branch MOUTH EVERY DAY IN THE EVENING methocarbam Yes methocarba [facility] oL 500 mg 03-24 mol 500 mg ity of tablet 22:28: tablet [place] 42 TAKE 1 Medical TABLET BY Branch MOUTH THREE TIMES DAILY FOR 5 DAYS meloxicam Yes meloxicam Uni vers 15 mg 03-24 15 mg ity of tablet 22:28: tablet [place] 42 TAKE 1 Medical TABLET BY Branch MOUTH EVERY DAY losartan 50 Yes losartan Un yan mg tablet 03-24 50 mg ity of 22:28: tablet [place] 42 TAKE 1 Medical TABLET BY Branch MOUTH TWICE DAILY levothyroxi Yes levothyrox [facility] ne 175 mcg 03-24 ine 175 ity of tablet 22:28: mcg tablet [place] 42 TAKE 1 Medical TABLET BY Branch MOUTH EVERY MORNING gabapentin Yes gabapentin U nivers 300 mg 03-24 300 mg ity of capsule 22:28: capsule [place] [address] TAKE 1 Medical CAPSULE BY Branch MOUTH AT BEDTIME DULoxetine Yes duloxetine U nivers 60 mg 8-19 60 mg ity of capsule 22:28: capsule[place] 42 layed Medical release Branch TAKE 1 CAPSULE BY MOUTH TWICE DAILY divalproex Yes divalproex U nivers 500 mg EC 8-19 500 mg ity of tablet 22:28: tablet,del [place] 42 ayed Medical release Branch TAKE 1 TABLET BY MOUTH DAILY amLODIPine Yes amlodipine U nivers 5 mg tablet 8-19 5 mg ity of 22:28: tablet [place] 42 TAKE 1 Medical TABLET BY Branch [...] ity o f mg tablet 22:28: at [place] [address] bedtime. Medical Branch acetaminoph Yes acetaminop [facility] en-codeine 8-19 hen 300 ity of 300-30 mg 22:28: mg-codeine [place] tablet 42 30 mg Medical tablet Branch TAKE 1 TABLET BY MOUTH TWICE DAILY NEEDED traZODone Yes trazodone [facility] vers 150 mg 8-19 150 mg ity of tablet 22:28: tablet [place] 42 TAKE 1 TO Medical 2 TABLETS Branch BY MOUTH EVERY NIGHT AT BEDTIME NEEDED FOR INSOMNIA traMADoL 50 Yes tramadol Un yan mg tablet 8-19 50 mg ity of 22:28: tablet [place] 42 TAKE 1 Medical TABLET BY Branch MOUTH THREE TIMES DAILY sucralfate Yes sucralfate U nivers 1 gram 8-19 1 gram ity of tablet 22:28: tablet [place] 42 TAKE 1 Medical TABLET BY Branch MOUTH BEFORE MEALS AND AT BEDTIME spironolact Yes spironolac [facility] one 25 mg 8- tone 25 mg ity of tablet 22:28: tablet [place] 42 TAKE 1 Medical TABLET BY Branch MOUTH EVERY DAY SITagliptin Yes Januvia Uni vers (JANUVIA) 8- 100 mg ity of 100 mg 22:28: tablet [place] tablet 42 TAKE 1 Medical TABLET BY Branch MOUTH EVERY DAY FOR 16 DAYS QUEtiapine Yes quetiapine U nivers 300 mg 8 300 mg ity of tablet 22:28: tablet [place] 42 TAKE 1 Medical TABLET BY Branch MOUTH EVERY EVENING 1 TO 1.5 HOUR PRIOR TO BEDTIME WITH 300 CALORIES SNACK QUEtiapine Yes quetiapine U nivers 200 mg 8 200 mg ity of tablet 22:28: tablet [place] 42 TAKE 1 Medical TABLET BY Branch MOUTH TWICE DAILY pantoprazol Yes pantoprazo Univers e 40 mg EC 03-24 le 40 mg ity o f tablet 22:28: tabletdel [place] 42 ayed Medical release Branch TAKE 1 TABLET BY MOUTH EVERY DAY montelukast Yes montelukas Univers 10 mg 03-24 t 10 mg ity of tablet 22:28: tablet [place] 42 TAKE 1 Medical TABLET BY Branch MOUTH EVERY DAY IN THE EVENING methocarbam Yes methocarba [facility] oL 500 mg 03-24 mol 500 mg ity of tablet 22:28: tablet [place] 42 TAKE 1 Medical TABLET BY Branch MOUTH THREE TIMES DAILY FOR 5 DAYS meloxicam Yes meloxicam Uni vers 15 mg - 15 mg ity of tablet 22:28: tablet [place] 42 TAKE 1 Medical TABLET BY Branch MOUTH EVERY DAY losartan 50 Yes losartan Un yan mg tablet 03-24 50 mg ity of 22:28: tablet [place] 42 TAKE 1 Medical TABLET BY Branch MOUTH TWICE DAILY levothyroxi Yes levothyrox Univers ne 175 mcg - ine 175 ity of tablet 22:28: mcg tablet [place] 42 TAKE 1 Medical TABLET BY Branch [...] 500 mg ity of tablet 22:28: tablet,del [place] 42 ayed Medical release Branch TAKE 1 TABLET BY MOUTH DAILY amLODIPine Yes amlodipine U nivers 5 mg tablet 8-19 5 mg ity of 22:28: tablet [place] [address] TAKE 1 Medical TABLET BY Branch MOUTH [...] ity o f mg tablet 22:28: at [place] [address] bedtime. Medical Branch acetaminoph Yes acetaminop [facility] en-codeine 8-19 hen 300 ity of 300-30 mg 22:28: mg-codeine [place] tablet 42 30 mg Medical tablet Branch TAKE 1 TABLET BY MOUTH TWICE DAILY NEEDED traZODone Yes trazodone Uni vers 150 mg 8-19 150 mg ity of tablet 22:28: tablet [place] [address] TAKE 1 TO Medical 2 TABLETS Branch BY MOUTH EVERY NIGHT AT BEDTIME NEEDED FOR INSOMNIA traMADoL 50 Yes tramadol Un yan mg tablet 8-19 50 mg ity of 22:28: tablet [place] 42 TAKE 1 Medical TABLET BY Branch MOUTH THREE TIMES DAILY sucralfate Yes sucralfate U nivers 1 gram 8-19 1 gram ity of tablet 22:28: tablet [place] 42 TAKE 1 Medical TABLET BY Branch MOUTH BEFORE MEALS AND AT BEDTIME spironolact Yes spironolac [facility] one 25 mg 8-19 tone 25 mg ity of tablet 22:28: tablet [place] [address] TAKE 1 Medical TABLET BY Branch MOUTH EVERY DAY SITagliptin 2022-0 Yes Januvia Uni vers (JANUVIA) 8- 100 mg ity of 100 mg 22:28: tablet [place] tablet 42 TAKE 1 Medical TABLET BY Branch MOUTH EVERY DAY FOR 16 DAYS QUEtiapine Yes quetiapine U nivers 300 mg 8- 300 mg ity of tablet 22:28: tablet [place] 42 TAKE 1 Medical TABLET BY Branch MOUTH EVERY EVENING 1 TO 1.5 HOUR PRIOR TO BEDTIME WITH 300 CALORIES SNACK QUEtiapine Yes quetiapine U nivers 200 mg 8 200 mg ity of tablet 22:28: tablet [place] 42 TAKE 1 Medical TABLET BY Branch MOUTH TWICE DAILY pantoprazol Yes pantoprazo Univers e 40 mg EC 03-24 le 40 mg ity o f tablet 22:28: tablet,del [place] 42 ayed Medical release Branch TAKE 1 TABLET BY MOUTH EVERY DAY montelukast Yes montelukas Univers 10 mg 03-24 t 10 mg ity of tablet 22:28: tablet [place] 42 TAKE 1 Medical TABLET BY Branch MOUTH EVERY DAY IN THE EVENING methocarbam Yes methocarba [facility] oL 500 mg 8 mol 500 mg ity of tablet 22:28: tablet [place] 42 TAKE 1 Medical TABLET BY Branch MOUTH THREE TIMES DAILY FOR 5 DAYS meloxicam Yes meloxicam Uni vers 15 mg 03-24 15 mg ity of tablet 22:28: tablet [place] 42 TAKE 1 Medical TABLET BY Branch MOUTH EVERY DAY losartan 50 Yes losartan Un yan mg tablet 03-24 50 mg ity of 22:28: tablet [place] 42 TAKE 1 Medical TABLET BY Branch MOUTH TWICE DAILY levothyroxi Yes levothyrox Univers ne 175 mcg - ine 175 ity of tablet 22:28: mcg tablet [place] 42 TAKE 1 Medical TABLET BY Branch MOUTH EVERY MORNING gabapentin Yes gabapentin U nivers 300 mg 8 300 mg ity of capsule 22:28: capsule [place] 42 TAKE 1 Medical CAPSULE BY Branch MOUTH AT BEDTIME DULoxetine Yes duloxetine U nivers 60 mg 8- 60 mg ity of capsule 22:28: [place] 42 layed Medical release Branch TAKE 1 CAPSULE BY MOUTH TWICE DAILY divalproex Yes divalproex U nivers 500 mg EC 8-19 500 mg ity of tablet 22:28: tablet,del [place] 42 ayed Medical release Branch TAKE 1 TABLET BY MOUTH DAILY amLODIPine Yes amlodipine U nivers 5 mg tablet 8- 5 mg ity of 22:28: tablet [place] 42 TAKE 1 Medical TABLET BY Branch [...] ity o f mg tablet 22:28: at [place] [address] bedtime. Medical Branch acetaminoph Yes acetaminop [facility] en-codeine 8- hen 300 ity of 300-30 mg 22:28: mg-codeine [place] tablet 42 30 mg Medical tablet Branch TAKE 1 TABLET BY MOUTH TWICE DAILY NEEDED traZODone Yes trazodone [facility] vers 150 mg 8 150 mg ity of tablet 22:28: tablet [place] 42 TAKE 1 TO Medical 2 TABLETS Branch BY MOUTH EVERY NIGHT AT BEDTIME NEEDED FOR INSOMNIA traMADoL 50 Yes tramadol Un yan mg tablet 03-24 50 mg ity of 22:28: tablet [place] 42 TAKE 1 Medical TABLET BY Branch MOUTH THREE TIMES DAILY sucralfate Yes sucralfate U nivers 1 gram 8- 1 gram ity of tablet 22:28: tablet [place] 42 TAKE 1 Medical TABLET BY Branch MOUTH BEFORE MEALS AND AT BEDTIME spironolact Yes spironolac Univers one 25 mg - tone 25 mg ity of tablet 22:28: tablet [place] 42 TAKE 1 Medical TABLET BY Branch MOUTH EVERY DAY SITagliptin Yes Januvia Uni vers (JANUVIA) 8- 100 mg ity of 100 mg 22:28: tablet [place] tablet 42 TAKE 1 Medical TABLET BY Branch MOUTH EVERY DAY FOR 16 DAYS QUEtiapine Yes quetiapine U nivers 300 mg 8 300 mg ity of tablet 22:28: tablet [place] 42 TAKE 1 Medical TABLET BY Branch MOUTH EVERY EVENING 1 TO 1.5 HOUR PRIOR TO BEDTIME WITH 300 CALORIES SNACK QUEtiapine Yes quetiapine U nivers 200 mg 8- 200 mg ity of tablet 22:28: tablet [place] 42 TAKE 1 Medical TABLET BY Branch MOUTH TWICE DAILY pantoprazol Yes pantoprazo Univers e 40 mg EC 8 le 40 mg ity o f tablet 22:28: tablet,del [place] 42 ayed Medical release [place] TAKE 1 TABLET BY MOUTH EVERY DAY montelukast Yes montelukas Univers 10 mg 03-24 t 10 mg ity of tablet 22:28: tablet [place] 42 TAKE 1 Medical TABLET BY Branch MOUTH EVERY DAY IN THE EVENING methocarbam Yes methocarba Univers oL 500 mg 03-24 mol 500 mg ity of tablet 22:28: tablet [place] 42 TAKE 1 Medical TABLET BY Branch MOUTH THREE TIMES DAILY FOR 5 DAYS meloxicam Yes meloxicam Uni vers 15 mg 8- 15 mg ity of tablet 22:28: tablet [place] 42 TAKE 1 Medical TABLET BY Branch MOUTH EVERY DAY losartan 50 Yes losartan Un yan mg tablet 03-24 50 mg ity of :28: tablet [place] 42 TAKE 1 Medical TABLET BY Branch MOUTH TWICE DAILY levothyroxi Yes levothyrox Univers ne 175 mcg - ine 175 ity of tablet 22:28: mcg tablet [place] 42 TAKE 1 Medical TABLET BY Branch MOUTH EVERY MORNING gabapentin Yes gabapentin U nivers 300 mg 03-24 300 mg ity of capsule 22:28: capsule [place] 42 TAKE 1 Medical CAPSULE BY Branch MOUTH AT BEDTIME DULoxetine Yes duloxetine U nivers 60 mg 8 60 mg ity of capsule 22:28: capsule,[place] 42 lay Medical release [place] TAKE 1 CAPSULE BY MOUTH TWICE DAILY divalproex Yes divalproex U nivers 500 mg EC 8 500 mg ity of tablet 22:28: tablet,del [place] 42 ay Medical release [place] TAKE 1 TABLET BY MOUTH DAILY amLODIPine Yes amlodipine U nivers 5 mg tablet 03-24 5 mg ity of 22:28: tablet [place] 42 TAKE 1 Medical TABLET BY Branch [...] ity o f mg tablet 22:28: at [place] [address] bedtime. Medical Branch acetaminoph Yes acetaminop Univers en-codeine 8- hen 300 ity of 300-30 mg 22:28: mg-codeine [place] tablet 42 30 mg Medical tablet Branch TAKE 1 TABLET BY MOUTH TWICE DAILY NEEDED traZODone Yes trazodone Uni vers 150 mg 8- 150 mg ity of tablet 22:28: tablet [place] 42 TAKE 1 TO Medical 2 TABLETS Branch BY MOUTH EVERY NIGHT AT BEDTIME NEEDED FOR INSOMNIA traMADoL 50 Yes tramadol Un yna mg tablet 03-24 50 mg ity of 22:28: tablet [place] 42 TAKE 1 Medical TABLET BY Branch MOUTH THREE TIMES DAILY sucralfate Yes sucralfate U nivers 1 gram - 1 gram ity of tablet 22:28: tablet [place] 42 TAKE 1 Medical TABLET BY Branch MOUTH BEFORE MEALS AND AT BEDTIME spironolact Yes spironolac Univers one 25 mg 8- tone 25 mg ity of tablet 22:28: tablet [place] 42 TAKE 1 Medical TABLET BY Branch MOUTH EVERY DAY SITagliptin Yes Januvia Uni vers (JANUVIA) 8- 100 mg ity of 100 mg 22:28: tablet [place] tablet 42 TAKE 1 Medical TABLET BY Branch MOUTH EVERY DAY FOR 16 DAYS QUEtiapine Yes quetiapine U nivers 300 mg 8- 300 mg ity of tablet 22:28: tablet [place] 42 TAKE 1 Medical TABLET BY Branch MOUTH EVERY EVENING 1 TO 1.5 HOUR PRIOR TO BEDTIME WITH 300 CALORIES SNACK QUEtiapine Yes quetiapine U nivers 200 mg 8 200 mg ity of tablet 22:28: tablet [place] [address] TAKE 1 Medical TABLET BY Branch MOUTH TWICE DAILY pantoprazol Yes pantoprazo Univers e 40 mg EC 8 le 40 mg ity o f tablet 22:28: tablet,del [place] 42 ay Medical [facility] TAKE 1 TABLET BY MOUTH EVERY DAY montelukast Yes montelukas Univers 10 mg 03-24 t 10 mg ity of tablet 22:28: tablet [place] 42 TAKE 1 Medical TABLET BY Branch MOUTH EVERY DAY IN THE EVENING methocarbam Yes methocarba Univers oL 500 mg 03-24 mol 500 mg ity of tablet 22:28: tablet [place] 42 TAKE 1 Medical TABLET BY Branch MOUTH THREE TIMES DAILY FOR 5 DAYS meloxicam Yes meloxicam Uni vers 15 mg 03-24 15 mg ity of tablet 22:28: tablet [place] 42 TAKE 1 Medical TABLET BY Branch MOUTH EVERY DAY losartan 50 Yes losartan Un yan mg tablet 03-24 50 mg ity of 22:28: tablet [place] 42 TAKE 1 Medical TABLET BY Branch MOUTH TWICE DAILY levothyroxi Yes levothyrox Univers ne 175 mcg 03-24 ine 175 ity of tablet 22:28: mcg tablet [place] 42 TAKE 1 Medical TABLET BY Branch MOUTH EVERY MORNING gabapentin Yes gabapentin U nivers 300 mg 03-24 300 mg ity of capsule 22:28: capsule [place] [address] TAKE 1 Medical CAPSULE BY Branch MOUTH AT BEDTIME DULoxetine Yes duloxetine U nivers 60 mg 03-24 60 mg ity of capsule 22:28: capsule,de [place] 42 lay Medical [facility] TAKE 1 CAPSULE BY MOUTH TWICE DAILY divalproex Yes divalproex U nivers 500 mg EC 03-24 500 mg ity of tablet 22:28: [facility]del [place] [facility] M[facility] DA[facility] amLODIPine Yes amlodipine U nivers 5 mg tablet 03-24 5 mg ity of 22:28: tablet [place] 42 TAKE 1 Medical TABLET BY Branch [...] ity o f mg tablet 22:28: at [place] 42 bedtime. Medical Branch acetaminoph Yes acetaminop Univers en-codeine 8-19 hen 300 ity of 300-30 mg 22:28: mg-codeine [place] tablet 42 30 mg Medical tablet Branch TAKE 1 TABLET BY MOUTH TWICE DAILY NEEDED traZODone Yes trazodone Uni vers 150 mg 8- 150 mg ity of tablet 22:28: tablet [place] 42 TAKE 1 TO Medical 2 TABLETS Branch BY MOUTH EVERY NIGHT AT BEDTIME NEEDED FOR INSOMNIA traMADoL 50 Yes tramadol Un yan mg tablet - 50 mg ity of 22:28: tablet [place] 42 TAKE 1 Medical TABLET BY Branch MOUTH THREE TIMES DAILY sucralfate Yes sucralfate U nivers 1 gram 8- 1 gram ity of tablet 22:28: tablet [place] 42 TAKE 1 Medical TABLET BY Branch MOUTH BEFORE MEALS AND AT BEDTIME spironolact Yes spironolac Univers one 25 mg 8- tone 25 mg ity of tablet 22:28: tablet [place] 42 TAKE 1 Medical TABLET BY Branch MOUTH EVERY DAY SITagliptin Yes Januvia Uni vers (JANUVIA) 8- 100 mg ity of 100 mg 22:28: tablet [place] tablet 42 TAKE 1 Medical TABLET BY Branch MOUTH EVERY DAY FOR 16 DAYS QUEtiapine Yes quetiapine U nivers 300 mg 8-19 300 mg ity of tablet 22:28: tablet [place] 42 TAKE 1 Medical TABLET BY Branch MOUTH EVERY EVENING 1 TO 1.5 HOUR PRIOR TO BEDTIME WITH 300 CALORIES SNACK QUEtiapine Yes quetiapine U nivers 200 mg 8-19 200 mg ity of tablet 22:28: tablet [place] 42 TAKE 1 Medical TABLET BY Branch MOUTH TWICE DAILY pantoprazol Yes pantoprazo Univers e 40 mg EC 8- le 40 mg ity o f tablet 22:28: tablet,del [place] 42 [facility] Medical release [place] TAKE 1 TABLET BY MOUTH EVERY DAY montelukast Yes montelukas Univers 10 mg 8- t 10 mg ity of tablet 22:28: tablet [place] 42 TAKE 1 Medical TABLET BY Branch MOUTH EVERY DAY IN THE EVENING methocarbam Yes methocarba Univers oL 500 mg 8 mol 500 mg ity of tablet 22:28: tablet [place] 42 TAKE 1 Medical TABLET BY Branch MOUTH THREE TIMES DAILY FOR 5 DAYS meloxicam Yes meloxicam Uni vers 15 mg 8 15 mg ity of tablet 22:28: tablet [place] 42 TAKE 1 Medical TABLET BY Branch MOUTH EVERY DAY losartan 50 Yes losartan Un yan mg tablet 03-24 50 mg ity of 22:28: tablet [place] 42 TAKE 1 Medical TABLET BY Branch MOUTH TWICE DAILY levothyroxi Yes levothyrox Univers ne 175 mcg 03-24 ine 175 ity of tablet 22:28: mcg tablet [place] 42 TAKE 1 Medical TABLET BY Branch MOUTH EVERY MORNING gabapentin Yes gabapentin U nivers 300 mg 8 300 mg ity of capsule 22:28: capsule [place] 42 TAKE 1 Medical CAPSULE BY Branch MOUTH AT BEDTIME DULoxetine Yes duloxetine U nivers 60 mg 8 60 mg ity of capsule 22:28: capsule,de [place] 42 lay Medical [facility] TAKE 1 CAPSULE BY MOUTH TWICE DAILY divalproex Yes divalproex U nivers 500 mg EC 8 500 mg ity of tablet 22:28: tablet,del [place] 42 [facility] Medical release [place] TAKE 1 TABLET BY MOUTH DAILY amLODIPine Yes amlodipine U nivers 5 mg tablet 03-24 5 mg ity of 22:28: tablet [place] 42 TAKE 1 Medical TABLET BY Branch [...] ity o f mg tablet 22:28: at [place] [address] bedtime. Medical Branch acetaminoph Yes acetaminop Univers en-codeine 8- hen 300 ity of 300-30 mg 22:28: mg-codeine [place] tablet 42 30 mg Medical tablet Branch TAKE 1 TABLET BY MOUTH TWICE DAILY NEEDED traZODone Yes trazodone Uni vers 150 mg 8- 150 mg ity of tablet 22:28: tablet [place] 42 TAKE 1 TO Medical 2 TABLETS Branch BY MOUTH EVERY NIGHT AT BEDTIME NEEDED FOR INSOMNIA traMADoL 50 Yes tramadol Un yan mg tablet 03-24 50 mg ity of 22:28: tablet [place] 42 TAKE 1 Medical TABLET BY Branch MOUTH THREE TIMES DAILY sucralfate Yes sucralfate U nivers 1 gram - 1 gram ity of tablet 22:28: tablet [place] 42 TAKE 1 Medical TABLET BY Branch MOUTH BEFORE MEALS AND AT BEDTIME spironolact Yes spironolac Univers one 25 mg - tone 25 mg ity of tablet 22:28: tablet [place] 42 TAKE 1 Medical TABLET BY Branch MOUTH EVERY DAY SITagliptin Yes Januvia Uni vers (JANUVIA) 8- 100 mg ity of 100 mg 22:28: tablet [place] tablet 42 TAKE 1 Medical TABLET BY Branch MOUTH EVERY DAY FOR 16 DAYS QUEtiapine Yes quetiapine U nivers 300 mg 8- 300 mg ity of tablet 22:28: tablet [place] 42 TAKE 1 Medical TABLET BY Branch MOUTH EVERY EVENING 1 TO 1.5 HOUR PRIOR TO BEDTIME WITH 300 CALORIES SNACK QUEtiapine Yes quetiapine U nivers 200 mg 8-19 200 mg ity of tablet 22:28: tablet [place] 42 TAKE 1 Medical TABLET BY Branch MOUTH TWICE DAILY pantoprazol Yes pantoprazo Univers e 40 mg EC 8- le 40 mg ity o f tablet 22:28: tablet,del [place] 42 ayed Medical release Branch TAKE 1 TABLET BY MOUTH EVERY DAY montelukast Yes montelukas Univers 10 mg 8-19 t 10 mg ity of tablet 22:28: tablet [place] 42 TAKE 1 Medical TABLET BY Branch MOUTH EVERY DAY IN THE EVENING methocarbam Yes methocarba Univers oL 500 mg 8-19 mol 500 mg ity of tablet 22:28: tablet [place] 42 TAKE 1 Medical TABLET BY Branch MOUTH THREE TIMES DAILY FOR 5 DAYS meloxicam Yes meloxicam Uni vers 15 mg 8-19 15 mg ity of tablet 22:28: tablet [place] 42 TAKE 1 Medical TABLET BY Branch MOUTH EVERY DAY losartan 50 Yes losartan Un yan mg tablet 8-19 50 mg ity of 22:28: tablet [place] 42 TAKE 1 Medical TABLET BY Branch MOUTH TWICE DAILY levothyroxi Yes levothyrox Univers ne 175 mcg 8- ine 175 ity of tablet 22:28: mcg tablet [place] 42 TAKE 1 Medical TABLET BY Branch MOUTH EVERY MORNING gabapentin Yes gabapentin U nivers 300 mg 8-19 300 mg ity of capsule 22:28: capsule [place] 42 TAKE 1 Medical CAPSULE BY Branch MOUTH AT BEDTIME DULoxetine Yes duloxetine U nivers 60 mg 8-19 60 mg ity of capsule 22:28: capsule,[place] 42 layed Medical release Branch TAKE 1 CAPSULE BY MOUTH TWICE DAILY divalproex Yes divalproex U nivers 500 mg EC 8-19 500 mg ity of tablet 22:28: tablet,del [place] 42 ayed Medical release [place] TAKE 1 TABLET BY MOUTH DAILY amLODIPine Yes amlodipine U nivers 5 mg tablet 8- 5 mg ity of 22:28: tablet [place] 42 TAKE 1 Medical TABLET BY Branch [...] ity o f mg tablet 22:28: at [place] [address] bedtime. Medical Branch acetaminoph Yes acetaminop Univers en-codeine 8- hen 300 ity of 300-30 mg 22:28: mg-codeine [place] tablet 42 30 mg Medical tablet Branch TAKE 1 TABLET BY MOUTH TWICE DAILY NEEDED traZODone Yes trazodone Uni vers 150 mg 8- 150 mg ity of tablet 22:28: tablet [place] 42 TAKE 1 TO Medical 2 TABLETS Branch BY MOUTH EVERY NIGHT AT BEDTIME NEEDED FOR INSOMNIA traMADoL 50 Yes tramadol Un yan mg tablet 03-24 50 mg ity of 22:28: tablet [place] 42 TAKE 1 Medical TABLET BY Branch MOUTH THREE TIMES DAILY sucralfate Yes sucralfate U nivers 1 gram - 1 gram ity of tablet 22:28: tablet [place] 42 TAKE 1 Medical TABLET BY Branch MOUTH BEFORE MEALS AND AT BEDTIME spironolact Yes spironolac Univers one 25 mg 8- tone 25 mg ity of tablet 22:28: tablet [place] 42 TAKE 1 Medical TABLET BY Branch MOUTH EVERY DAY SITagliptin Yes Januvia Uni vers (JANUVIA) 8- 100 mg ity of 100 mg 22:28: tablet [place] tablet 42 TAKE 1 Medical TABLET BY Branch MOUTH EVERY DAY FOR 16 DAYS QUEtiapine Yes quetiapine U nivers 300 mg 8- 300 mg ity of tablet 22:28: tablet [place] 42 TAKE 1 Medical TABLET BY Branch MOUTH EVERY EVENING 1 TO 1.5 HOUR PRIOR TO BEDTIME WITH 300 CALORIES SNACK QUEtiapine Yes quetiapine U nivers 200 mg 8- 200 mg ity of tablet 22:28: tablet [place] 42 TAKE 1 Medical TABLET BY Branch MOUTH TWICE DAILY pantoprazol Yes pantoprazo Univers e 40 mg EC 8- le 40 mg ity o f tablet 22:28: tablet,del [place] 42 ayed Medical release Branch TAKE 1 TABLET BY MOUTH EVERY DAY montelukast Yes montelukas Univers 10 mg 8- t 10 mg ity of tablet 22:28: tablet [place] 42 TAKE 1 Medical TABLET BY Branch MOUTH EVERY DAY IN THE EVENING methocarbam Yes methocarba Univers oL 500 mg 8-19 mol 500 mg ity of tablet 22:28: tablet [place] 42 TAKE 1 Medical TABLET BY Branch MOUTH THREE TIMES DAILY FOR 5 DAYS meloxicam Yes meloxicam Uni vers 15 mg 8-19 15 mg ity of tablet 22:28: tablet [place] 42 TAKE 1 Medical TABLET BY Branch MOUTH EVERY DAY losartan 50 Yes losartan Un yan mg tablet 8- 50 mg ity of 22:28: tablet [place] 42 TAKE 1 Medical TABLET BY Branch MOUTH TWICE DAILY levothyroxi Yes levothyrox Univers ne 175 mcg 8- ine 175 ity of tablet 22:28: mcg tablet [place] 42 TAKE 1 Medical TABLET BY Branch MOUTH EVERY MORNING gabapentin Yes gabapentin U nivers 300 mg 8- 300 mg ity of capsule 22:28: capsule [place] [address] TAKE 1 Medical CAPSULE BY Branch MOUTH AT BEDTIME DULoxetine Yes duloxetine U nivers 60 mg 8- 60 mg ity of capsule 22:28: capsule[place] 42 layed Medical release Branch TAKE 1 CAPSULE BY MOUTH TWICE DAILY divalproex Yes divalproex U nivers 500 mg EC 8-19 500 mg ity of tablet 22:28: tablet,del [place] 42 ayed Medical release [place] TAKE 1 TABLET BY MOUTH DAILY amLODIPine Yes amlodipine U nivers 5 mg tablet 8- 5 mg ity of 22:28: tablet [place] 42 TAKE 1 Medical TABLET BY Branch [...] ity o f mg tablet 22:28: at [place] [address] bedtime. Medical Branch acetaminoph Yes acetaminop Univers en-codeine 8-19 hen 300 ity of 300-30 mg 22:28: mg-codeine [place] tablet 42 30 mg Medical tablet Branch TAKE 1 TABLET BY MOUTH TWICE DAILY NEEDED traZODone Yes trazodone Uni vers 150 mg 8- 150 mg ity of tablet 22:28: tablet [place] 42 TAKE 1 TO Medical 2 TABLETS Branch BY MOUTH EVERY NIGHT AT BEDTIME NEEDED FOR INSOMNIA traMADoL 50 Yes tramadol [facility] mg tablet 03-24 50 mg ity of 22:28: tablet [place] 42 TAKE 1 Medical TABLET BY Branch MOUTH THREE TIMES DAILY sucralfate Yes sucralfate U nivers 1 gram - 1 gram ity of tablet 22:28: tablet [place] 42 TAKE 1 Medical TABLET BY Branch MOUTH BEFORE MEALS AND AT BEDTIME spironolact Yes spironolac [facility] one 25 mg 8- tone 25 mg ity of tablet 22:28: tablet [place] 42 TAKE 1 Medical TABLET BY Branch MOUTH EVERY DAY SITagliptin Yes Januvia Uni vers (JANUVIA) - 100 mg ity of 100 mg 22:28: tablet [place] tablet 42 TAKE 1 Medical TABLET BY Branch MOUTH EVERY DAY FOR 16 DAYS QUEtiapine Yes quetiapine U nivers 300 mg 03-24 300 mg ity of tablet 22:28: tablet [place] 42 TAKE 1 Medical TABLET BY Branch MOUTH EVERY EVENING 1 TO 1.5 HOUR PRIOR TO BEDTIME WITH 300 CALORIES SNACK QUEtiapine Yes quetiapine U nivers 200 mg 8- 200 mg ity of tablet 22:28: tablet [place] 42 TAKE 1 Medical TABLET BY Branch MOUTH TWICE DAILY pantoprazol Yes pantoprazo Univers e 40 mg EC 8- le 40 mg ity o f tablet 22:28: tablet,del [place] 42 ayed Medical release Branch TAKE 1 TABLET BY MOUTH EVERY DAY montelukast Yes montelukas Univers 10 mg 8- t 10 mg ity of tablet 22:28: tablet [place] 42 TAKE 1 Medical TABLET BY Branch MOUTH EVERY DAY IN THE EVENING methocarbam Yes methocarba [facility] oL 500 mg 8- mol 500 mg ity of tablet 22:28: tablet [place] 42 TAKE 1 Medical TABLET BY Branch MOUTH THREE TIMES DAILY FOR 5 DAYS meloxicam Yes meloxicam Uni vers 15 mg 8-19 15 mg ity of tablet 22:28: tablet [place] 42 TAKE 1 Medical TABLET BY Branch MOUTH EVERY DAY losartan 50 Yes losartan [facility] mg tablet 8-19 50 mg ity of 22:28: tablet [place] 42 TAKE 1 Medical TABLET BY Branch MOUTH TWICE DAILY levothyroxi Yes levothyrox [facility] ne 175 mcg 8- ine 175 ity of tablet 22:28: mcg tablet [place] 42 TAKE 1 Medical TABLET BY Branch MOUTH EVERY MORNING gabapentin Yes gabapentin U n[facility] 300 mg 8- 300 mg ity of capsule 22:28: capsule [place] [address] TAKE 1 Medical CAPSULE BY Branch MOUTH AT BEDTIME DULoxetine Yes duloxetine U nivers 60 mg 8- 60 mg ity of capsule 22:28: [place] 42 layed Medical release [facility] TAKE 1 CAPSULE BY MOUTH TWICE DAILY divalproex Yes divalproex U n[facility] 500 mg EC 8-19 500 mg ity of tablet 22:28: tablet,del [place] 42 ayed Medical release Branch TAKE 1 TABLET BY MOUTH DAILY amLODIPine Yes amlodipine U nivers 5 mg tablet 8- 5 mg ity of 22:28: tablet [place] [address] TAKE 1 Medical TABLET BY Branch MOUTH [...] ity o f mg tablet 22:28: at [place] [address] bedtime. Medical Branch acetaminoph Yes acetaminop [facility] en-codeine 8-19 hen 300 ity of 300-30 mg 22:28: mg-codeine [place] tablet 42 30 mg Medical tablet Branch TAKE 1 TABLET BY MOUTH TWICE DAILY NEEDED traZODone Yes trazodone [facility] vers 150 mg 8-19 150 mg ity of tablet 22:28: tablet [place] 42 TAKE 1 TO Medical 2 TABLETS Branch BY MOUTH EVERY NIGHT AT BEDTIME NEEDED FOR INSOMNIA traMADoL 50 Yes tramadol [facility] mg tablet 8-19 50 mg ity of 22:28: tablet [place] 42 TAKE 1 Medical TABLET BY Branch MOUTH THREE TIMES DAILY sucralfate Yes sucralfate U nivers 1 gram 8- 1 gram ity of tablet 22:28: tablet [place] 42 TAKE 1 Medical TABLET BY Branch MOUTH BEFORE MEALS AND AT BEDTIME spironolact Yes spironolac [facility] one 25 mg 8- tone 25 mg ity of tablet 22:28: tablet [place] 42 TAKE 1 Medical TABLET BY Branch MOUTH EVERY DAY SITagliptin Yes Januvia Uni vers (JANUVIA) 8- 100 mg ity of 100 mg 22:28: tablet [place] tablet 42 TAKE 1 Medical TABLET BY Branch MOUTH EVERY DAY FOR 16 DAYS QUEtiapine Yes quetiapine U nivers 300 mg 8- 300 mg ity of tablet 22:28: tablet [place] 42 TAKE 1 Medical TABLET BY Branch MOUTH EVERY EVENING 1 TO 1.5 HOUR PRIOR TO BEDTIME WITH 300 CALORIES SNACK QUEtiapine Yes quetiapine [facility] 200 mg 8-19 200 mg ity of tablet 22:28: tablet [place] 42 TAKE 1 Medical TABLET BY Branch MOUTH TWICE DAILY pantoprazol Yes pantoprazo Univers e 40 mg EC 8- le 40 mg ity o f tablet 22:28: tablet,del [place] 42 ayed Medical release Branch TAKE 1 TABLET BY MOUTH EVERY DAY montelukast Yes montelukas Univers 10 mg 8- t 10 mg ity of tablet 22:28: tablet [place] 42 TAKE 1 Medical TABLET BY Branch MOUTH EVERY DAY IN THE EVENING methocarbam Yes methocarba [facility] oL 500 mg 8- mol 500 mg ity of tablet 22:28: tablet [place] 42 TAKE 1 Medical TABLET BY Branch MOUTH THREE TIMES DAILY FOR 5 DAYS meloxicam Yes meloxicam [facility] vers 15 mg 8-19 15 mg ity of tablet 22:28: tablet [place] 42 TAKE 1 Medical TABLET BY Branch MOUTH EVERY DAY losartan 50 Yes losartan [facility] mg tablet 8-19 50 mg ity of 22:28: tablet [place] 42 TAKE 1 Medical TABLET BY Branch MOUTH TWICE DAILY levothyroxi Yes levothyrox [facility] ne 175 mcg 8- ine 175 ity of tablet 22:28: mcg tablet [place] 42 TAKE 1 Medical TABLET BY Branch MOUTH EVERY MORNING gabapentin Yes gabapentin [facility] n[facility] 300 mg 8- 300 mg ity of capsule 22:28: capsule [place] 42 TAKE 1 Medical CAPSULE BY Branch MOUTH AT BEDTIME DULoxetine Yes duloxetine [facility] n[facility] 60 mg 8- 60 mg ity of capsule 22:28: [place] 42 layed Medical release Branch TAKE 1 CAPSULE BY MOUTH TWICE DAILY divalproex Yes divalproex U n[facility] 500 mg EC 8-19 500 mg ity of tablet 22:28: tablet,del [place] 42 ayed Medical release Branch TAKE 1 TABLET BY MOUTH DAILY amLODIPine Yes amlodipine U nivers 5 mg tablet - 5 mg ity of 22:28: tablet [place] 42 TAKE 1 Medical TABLET BY Branch [...] ity o f mg tablet 22:28: at [place] [address] bedtime. Medical Branch acetaminoph Yes acetaminop [facility] en-codeine 8-19 hen 300 ity of 300-30 mg 22:28: mg-codeine [place] tablet 42 30 mg Medical tablet Branch TAKE 1 TABLET BY MOUTH TWICE DAILY NEEDED traZODone Yes trazodone [facility] vers 150 mg 8-19 150 mg ity of tablet 22:28: tablet [place] 42 TAKE 1 TO Medical 2 TABLETS Branch BY MOUTH EVERY NIGHT AT BEDTIME NEEDED FOR INSOMNIA traMADoL 50 Yes tramadol [facility] mg tablet 03-24 50 mg ity of 22:28: tablet [place] 42 TAKE 1 Medical TABLET BY Branch MOUTH THREE TIMES DAILY sucralfate Yes sucralfate [facility] 1 gram 03-24 1 gram ity of tablet 22:28: tablet [place] 42 TAKE 1 Medical TABLET BY Branch MOUTH BEFORE MEALS AND AT BEDTIME spironolact Yes spironolac [facility] one 25 mg - tone 25 mg ity of tablet 22:28: tablet [place] 42 TAKE 1 Medical TABLET BY Branch MOUTH EVERY DAY SITagliptin Yes Januvia Uni vers (JANUVIA) 8 100 mg ity of 100 mg 22:28: tablet [place] tablet 42 TAKE 1 Medical TABLET BY Branch MOUTH EVERY DAY FOR 16 DAYS QUEtiapine Yes quetiapine [facility] n[facility] 300 mg 03-24 300 mg ity of tablet 22:28: tablet [place] 42 TAKE 1 Medical TABLET BY Branch MOUTH EVERY EVENING 1 TO 1.5 HOUR PRIOR TO BEDTIME WITH 300 CALORIES SNACK QUEtiapine Yes quetiapine [facility] 200 mg 03-24 200 mg ity of tablet 22:28: tablet [place] 42 TAKE 1 Medical TABLET BY Branch MOUTH TWICE DAILY pantoprazol Yes pantoprazo [facility] e 40 mg EC 03-24 le 40 mg ity o f tablet 22:28: tablet,del [place] 42 ayed Medical release Branch TAKE 1 TABLET BY MOUTH EVERY DAY montelukast Yes montelukas Univers 10 mg 03-24 t 10 mg ity of tablet 22:28: tablet [place] 42 TAKE 1 Medical TABLET BY Branch MOUTH EVERY DAY IN THE EVENING methocarbam Yes methocarba [facility] oL 500 mg 03-24 mol 500 mg ity of tablet 22:28: tablet [place] 42 TAKE 1 Medical TABLET BY Branch MOUTH THREE TIMES DAILY FOR 5 DAYS meloxicam Yes meloxicam [facility] vers 15 mg 03-24 15 mg ity of tablet 22:28: tablet [place] 42 TAKE 1 Medical TABLET BY Branch MOUTH EVERY DAY losartan 50 Yes losartan [facility] mg tablet 03-24 50 mg ity of 22:28: tablet [place] 42 TAKE 1 Medical TABLET BY Branch MOUTH TWICE DAILY levothyroxi 2022-0 Yes levothyrox [facility] ne 175 mcg 8-19 ine 175 ity of tablet 22:28: mcg tablet [place] 42 TAKE 1 Medical TABLET BY Branch MOUTH EVERY MORNING gabapentin Yes gabapentin [facility] 300 mg 8-19 300 mg ity of capsule 22:28: capsule [place] 42 TAKE 1 Medical CAPSULE BY Branch MOUTH AT BEDTIME DULoxetine Yes duloxetine [facility] 60 mg 8-19 60 mg ity of capsule 22:28: [place] 42 layed Medical release Branch TAKE 1 CAPSULE BY MOUTH TWICE DAILY divalproex Yes divalproex U n[facility] 500 mg EC 8-19 500 mg ity of tablet 22:28: tablet,del [place] 42 ayed Medical release Branch TAKE 1 TABLET BY MOUTH DAILY amLODIPine Yes amlodipine U nivers 5 mg tablet 8- 5 mg ity of 22:28: tablet [place] 42 TAKE 1 Medical TABLET BY Branch [...] ity o f mg tablet 22:28: at [place] [address] bedtime. Medical Branch acetaminoph Yes acetaminop [facility] en-codeine 8-19 hen 300 ity of 300-30 mg 22:28: mg-codeine [place] tablet 42 30 mg Medical tablet Branch TAKE 1 TABLET BY MOUTH TWICE DAILY NEEDED traZODone Yes trazodone [facility] vers 150 mg 8-19 150 mg ity of tablet 22:28: tablet [place] 42 TAKE 1 TO Medical 2 TABLETS Branch BY MOUTH EVERY NIGHT AT BEDTIME NEEDED FOR INSOMNIA traMADoL 50 Yes tramadol [facility] mg tablet 8-19 50 mg ity of 22:28: tablet [place] 42 TAKE 1 Medical TABLET BY Branch MOUTH THREE TIMES DAILY sucralfate Yes sucralfate U nivers 1 gram 03-24 1 gram ity of tablet 22:28: tablet [place] 42 TAKE 1 Medical TABLET BY Branch MOUTH BEFORE MEALS AND AT BEDTIME spironolact Yes spironolac [facility] one 25 mg - tone 25 mg ity of tablet 22:28: tablet [place] 42 TAKE 1 Medical TABLET BY Branch MOUTH EVERY DAY SITagliptin Yes Januvia Uni vers (JANUVIA) 8 100 mg ity of 100 mg 22:28: tablet [place] tablet 42 TAKE 1 Medical TABLET BY Branch MOUTH EVERY DAY FOR 16 DAYS QUEtiapine Yes quetiapine U nivers 300 mg 03-24 300 mg ity of tablet 22:28: tablet [place] 42 TAKE 1 Medical TABLET BY Branch MOUTH EVERY EVENING 1 TO 1.5 HOUR PRIOR TO BEDTIME WITH 300 CALORIES SNACK QUEtiapine Yes quetiapine U nivers 200 mg 03-24 200 mg ity of tablet 22:28: tablet [place] 42 TAKE 1 Medical TABLET BY Branch MOUTH TWICE DAILY pantoprazol Yes pantoprazo [facility] e 40 mg EC 03-24 le 40 mg ity o f tablet 22:28: tablet,del [place] 42 ayed Medical release Branch TAKE 1 TABLET BY MOUTH EVERY DAY montelukast Yes montelukas Univers 10 mg 03-24 t 10 mg ity of tablet 22:28: tablet [place] 42 TAKE 1 Medical TABLET BY Branch MOUTH EVERY DAY IN THE EVENING methocarbam Yes methocarba [facility] oL 500 mg 03-24 mol 500 mg ity of tablet 22:28: tablet [place] 42 TAKE 1 Medical TABLET BY Branch MOUTH THREE TIMES DAILY FOR 5 DAYS meloxicam Yes meloxicam Uni vers 15 mg 03-24 15 mg ity of tablet 22:28: tablet [place] 42 TAKE 1 Medical TABLET BY Branch MOUTH EVERY DAY losartan 50 Yes losartan [facility] mg tablet 03-24 50 mg ity of 22:28: tablet [place] 42 TAKE 1 Medical TABLET BY Branch MOUTH TWICE DAILY levothyroxi Yes levothyrox [facility] ne 175 mcg - ine 175 ity of tablet 22:28: mcg tablet [place] 42 TAKE 1 Medical TABLET BY Branch MOUTH EVERY MORNING gabapentin Yes gabapentin U nivers 300 mg 8-19 300 mg ity of capsule 22:28: capsule [place] 42 TAKE 1 Medical CAPSULE BY Branch MOUTH AT BEDTIME DULoxetine Yes duloxetine U nivers 60 mg 8-19 60 mg ity of capsule 22:28: [place] layed Medical release Branch TAKE 1 CAPSULE BY MOUTH TWICE DAILY divalproex Yes divalproex U nivers 500 mg EC 8-19 500 mg ity of tablet 22:28: tablet,del [place] 42 ayed Medical release Branch TAKE 1 TABLET BY MOUTH DAILY amLODIPine Yes amlodipine U nivers 5 mg tablet 8-19 5 mg ity of 22:28: tablet [place] 42 TAKE 1 Medical TABLET BY Branch [...] ity o f mg tablet 22:28: at [place] [address] bedtime. Medical Branch acetaminoph Yes acetaminop [facility] en-codeine 8-19 hen 300 ity of 300-30 mg 22:28: mg-codeine [place] tablet 42 30 mg Medical tablet Branch TAKE 1 TABLET BY MOUTH TWICE DAILY NEEDED traZODone Yes trazodone [facility] vers 150 mg 8-19 150 mg ity of tablet 22:28: tablet [place] 42 TAKE 1 TO Medical 2 TABLETS Branch BY MOUTH EVERY NIGHT AT BEDTIME NEEDED FOR INSOMNIA traMADoL 50 Yes tramadol [facility] mg tablet 8-19 50 mg ity of 22:28: tablet [place] 42 TAKE 1 Medical TABLET BY Branch MOUTH THREE TIMES DAILY sucralfate Yes sucralfate U nivers 1 gram 8-19 1 gram ity of tablet 22:28: tablet [place] 42 TAKE 1 Medical TABLET BY Branch MOUTH BEFORE MEALS AND AT BEDTIME spironolact Yes spironolac [facility] one 25 mg 8- tone 25 mg ity of tablet 22:28: tablet [place] 42 TAKE 1 Medical TABLET BY Branch MOUTH EVERY DAY SITagliptin Yes Januvia Uni vers (JANUVIA) 8- 100 mg ity of 100 mg 22:28: tablet [place] tablet 42 TAKE 1 Medical TABLET BY Branch MOUTH EVERY DAY FOR 16 DAYS QUEtiapine Yes quetiapine U nivers 300 mg 8- 300 mg ity of tablet 22:28: tablet [place] 42 TAKE 1 Medical TABLET BY Branch MOUTH EVERY EVENING 1 TO 1.5 HOUR PRIOR TO BEDTIME WITH 300 CALORIES SNACK QUEtiapine Yes quetiapine U nivers 200 mg 8- 200 mg ity of tablet 22:28: tablet [place] 42 TAKE 1 Medical TABLET BY Branch MOUTH TWICE DAILY pantoprazol Yes pantoprazo [facility] e 40 mg EC 8- le 40 mg ity o f tablet 22:28: tablet,del [place] 42 ayed Medical release Branch TAKE 1 TABLET BY MOUTH EVERY DAY montelukast Yes montelukas Univers 10 mg 8- t 10 mg ity of tablet 22:28: tablet [place] 42 TAKE 1 Medical TABLET BY Branch MOUTH EVERY DAY IN THE EVENING methocarbam Yes methocarba [facility] oL 500 mg 8 mol 500 mg ity of tablet 22:28: tablet [place] 42 TAKE 1 Medical TABLET BY Branch MOUTH THREE TIMES DAILY FOR 5 DAYS meloxicam Yes meloxicam [facility] vers 15 mg 8 15 mg ity of tablet 22:28: tablet [place] 42 TAKE 1 Medical TABLET BY Branch MOUTH EVERY DAY losartan 50 Yes losartan [facility] mg tablet 03-24 50 mg ity of 22:28: tablet [place] 42 TAKE 1 Medical TABLET BY Branch MOUTH TWICE DAILY levothyroxi Yes levothyrox [facility] ne 175 mcg - ine 175 ity of tablet 22:28: mcg tablet [place] 42 TAKE 1 Medical TABLET BY Branch MOUTH EVERY MORNING gabapentin Yes gabapentin U nivers 300 mg 8- 300 mg ity of capsule 22:28: capsule [place] 42 TAKE 1 Medical CAPSULE BY Branch MOUTH AT BEDTIME DULoxetine Yes duloxetine U nivers 60 mg 8- 60 mg ity of capsule 22:28: capsule,[place] 42 layed Medical release Branch TAKE 1 CAPSULE BY MOUTH TWICE DAILY divalproex Yes divalproex U nivers 500 mg EC 8-19 500 mg ity of tablet 22:28: tablet,del [place] 42 ayed Medical release Branch TAKE 1 TABLET BY MOUTH DAILY amLODIPine Yes amlodipine U nivers 5 mg tablet 8-19 5 mg ity of 22:28: tablet [place] [address] TAKE 1 Medical TABLET BY Branch MOUTH [...] ity o f mg tablet 22:28: at [place] [address] bedtime. Medical Branch acetaminoph Yes acetaminop [facility] en-codeine 8-19 hen 300 ity of 300-30 mg 22:28: mg-codeine [place] tablet 42 30 mg Medical tablet Branch TAKE 1 TABLET BY MOUTH TWICE DAILY NEEDED traZODone Yes trazodone [facility] vers 150 mg 8-19 150 mg ity of tablet 22:28: tablet [place] [address] TAKE 1 TO Medical 2 TABLETS Branch BY MOUTH EVERY NIGHT AT BEDTIME NEEDED FOR INSOMNIA traMADoL 50 Yes tramadol [facility] mg tablet 8-19 50 mg ity of 22:28: tablet [place] [address] TAKE 1 Medical TABLET BY Branch MOUTH THREE TIMES DAILY sucralfate Yes sucralfate U nivers 1 gram 8-19 1 gram ity of tablet 22:28: tablet [place] [address] TAKE 1 Medical TABLET BY Branch MOUTH BEFORE MEALS AND AT BEDTIME spironolact Yes spironolac [facility] one 25 mg 8-19 tone 25 mg ity of tablet 22:28: tablet [place] [address] TAKE 1 Medical TABLET BY Branch MOUTH EVERY DAY SITagliptin Yes Januvia Uni vers (JANUVIA) 8- 100 mg ity of 100 mg 22:28: tablet [place] tablet 42 TAKE 1 Medical TABLET BY Branch MOUTH EVERY DAY FOR 16 DAYS QUEtiapine Yes quetiapine U nivers 300 mg 03-24 300 mg ity of tablet 22:28: tablet [place] 42 TAKE 1 Medical TABLET BY Branch [...] 22:28: tablet,del [place] 42 ayed Medical release [place] TAKE 1 TABLET BY MOUTH EVERY DAY montelukast Yes montelukas Univers 10 mg 03-24 t 10 mg ity of tablet 22:28: tablet [place] 42 TAKE 1 Medical TABLET BY Branch MOUTH EVERY DAY IN THE EVENING methocarbam Yes methocarba Univers oL 500 mg 03-24 mol 500 mg ity of tablet 22:28: tablet [place] 42 TAKE 1 Medical TABLET BY Branch MOUTH THREE TIMES DAILY FOR 5 DAYS meloxicam Yes meloxicam Uni vers 15 mg 03-24 15 mg ity of tablet 22:28: tablet [place] 42 TAKE 1 Medical TABLET BY Branch MOUTH EVERY DAY losartan 50 Yes losartan [facility] mg tablet 03-24 50 mg ity of 22:28: tablet [place] 42 TAKE 1 Medical TABLET BY Branch MOUTH TWICE DAILY levothyroxi Yes levothyrox Univers ne 175 mcg - ine 175 ity of tablet 22:28: mcg tablet [place] 42 TAKE 1 Medical TABLET BY Branch MOUTH EVERY MORNING gabapentin Yes gabapentin U nivers 300 mg 03-24 300 mg ity of capsule 22:28: capsule [place] 42 TAKE 1 Medical CAPSULE BY Branch MOUTH AT BEDTIME DULoxetine Yes duloxetine U nivers 60 mg 8 60 mg ity of capsule 22:28: capsule,[place] 42 layed Medical release [place] TAKE 1 CAPSULE BY MOUTH TWICE DAILY divalproex Yes divalproex U nivers 500 mg EC 8-19 500 mg ity of tablet 22:28: tablet,del [place] 42 ayed Medical release Branch TAKE 1 TABLET BY MOUTH DAILY amLODIPine Yes amlodipine U nivers 5 mg tablet 8 5 mg ity of 22:28: tablet [place] 42 TAKE 1 Medical TABLET BY Branch [...] ity o f mg tablet 22:28: at [place] [address] bedtime. Medical Branch acetaminoph Yes acetaminop [facility] en-codeine 8- hen 300 ity of 300-30 mg 22:28: mg-codeine [place] tablet 42 30 mg Medical tablet Branch TAKE 1 TABLET BY MOUTH TWICE DAILY NEEDED traZODone Yes trazodone Uni vers 150 mg 8 150 mg ity of tablet 22:28: tablet [place] 42 TAKE 1 TO Medical 2 TABLETS Branch BY MOUTH EVERY NIGHT AT BEDTIME NEEDED FOR INSOMNIA traMADoL 50 Yes tramadol [facility] mg tablet 03-24 50 mg ity of 22:28: tablet [place] 42 TAKE 1 Medical TABLET BY Branch MOUTH THREE TIMES DAILY sucralfate Yes sucralfate U nivers 1 gram - 1 gram ity of tablet 22:28: tablet [place] 42 TAKE 1 Medical TABLET BY Branch MOUTH BEFORE MEALS AND AT BEDTIME spironolact Yes spironolac Univers one 25 mg 8- tone 25 mg ity of tablet 22:28: tablet [place] 42 TAKE 1 Medical TABLET BY Branch MOUTH EVERY DAY SITagliptin Yes Januvia Uni vers (JANUVIA) 8- 100 mg ity of 100 mg 22:28: tablet [place] tablet 42 TAKE 1 Medical TABLET BY Branch MOUTH EVERY DAY FOR 16 DAYS QUEtiapine Yes quetiapine U nivers 300 mg 8 300 mg ity of tablet 22:28: tablet [place] 42 TAKE 1 Medical TABLET BY Branch MOUTH EVERY EVENING 1 TO 1.5 HOUR PRIOR TO BEDTIME WITH 300 CALORIES SNACK QUEtiapine Yes quetiapine U nivers 200 mg 8- 200 mg ity of tablet 22:28: tablet [place] 42 TAKE 1 Medical TABLET BY Branch MOUTH TWICE DAILY pantoprazol Yes pantoprazo Univers e 40 mg EC 8 le 40 mg ity o f tablet 22:28: tablet,del [place] 42 ayed Medical release [place] TAKE 1 TABLET BY MOUTH EVERY DAY montelukast Yes montelukas Univers 10 mg 03-24 t 10 mg ity of tablet 22:28: tablet [place] 42 TAKE 1 Medical TABLET BY Branch MOUTH EVERY DAY IN THE EVENING methocarbam Yes methocarba Univers oL 500 mg 8 mol 500 mg ity of tablet 22:28: tablet [place] 42 TAKE 1 Medical TABLET BY Branch MOUTH THREE TIMES DAILY FOR 5 DAYS meloxicam Yes meloxicam Uni vers 15 mg 8 15 mg ity of tablet 22:28: tablet [place] 42 TAKE 1 Medical TABLET BY Branch MOUTH EVERY DAY losartan 50 Yes losartan [facility] mg tablet 03-24 50 mg ity of 22:28: tablet [place] 42 TAKE 1 Medical TABLET BY Branch MOUTH TWICE DAILY levothyroxi Yes levothyrox Univers ne 175 mcg - ine 175 ity of tablet 22:28: mcg tablet [place] 42 TAKE 1 Medical TABLET BY Branch MOUTH EVERY MORNING gabapentin Yes gabapentin U nivers 300 mg 03-24 300 mg ity of capsule 22:28: capsule [place] 42 TAKE 1 Medical CAPSULE BY Branch MOUTH AT BEDTIME DULoxetine Yes duloxetine U nivers 60 mg 8 60 mg ity of capsule 22:28: [place] 42 layed Medical release [place] TAKE 1 CAPSULE BY MOUTH TWICE DAILY divalproex Yes divalproex U nivers 500 mg EC 8 500 mg ity of tablet 22:28: tablet,del [place] 42 [facility] Medical release [place] TAKE 1 TABLET BY MOUTH DAILY amLODIPine Yes amlodipine U nivers 5 mg tablet 8-19 5 mg ity of 22:28: tablet [place] 42 TAKE 1 Medical TABLET BY Branch [...] ity o f mg tablet 22:28: at [place] 42 bedtime. Medical Branch acetaminoph Yes acetaminop Univers en-codeine 8-19 hen 300 ity of 300-30 mg 22:28: mg-codeine [place] tablet 42 30 mg Medical tablet Branch TAKE 1 TABLET BY MOUTH TWICE DAILY NEEDED traZODone Yes trazodone Uni vers 150 mg 8- 150 mg ity of tablet 22:28: tablet [place] 42 TAKE 1 TO Medical 2 TABLETS Branch BY MOUTH EVERY NIGHT AT BEDTIME NEEDED FOR INSOMNIA traMADoL 50 Yes tramadol [facility] mg tablet - 50 mg ity of 22:28: tablet [place] 42 TAKE 1 Medical TABLET BY Branch MOUTH THREE TIMES DAILY sucralfate Yes sucralfate U nivers 1 gram 8- 1 gram ity of tablet 22:28: tablet [place] 42 TAKE 1 Medical TABLET BY Branch MOUTH BEFORE MEALS AND AT BEDTIME spironolact Yes spironolac Univers one 25 mg 8- tone 25 mg ity of tablet 22:28: tablet [place] 42 TAKE 1 Medical TABLET BY Branch MOUTH EVERY DAY SITagliptin Yes Januvia Uni vers (JANUVIA) 8- 100 mg ity of 100 mg 22:28: tablet [place] tablet 42 TAKE 1 Medical TABLET BY Branch MOUTH EVERY DAY FOR 16 DAYS QUEtiapine Yes quetiapine U nivers 300 mg 8-19 300 mg ity of tablet 22:28: tablet [place] 42 TAKE 1 Medical TABLET BY Branch MOUTH EVERY EVENING 1 TO 1.5 HOUR PRIOR TO BEDTIME WITH 300 CALORIES SNACK QUEtiapine Yes quetiapine U nivers 200 mg 8 200 mg ity of tablet 22:28: tablet [place] 42 TAKE 1 Medical TABLET BY Branch MOUTH TWICE DAILY pantoprazol Yes pantoprazo Univers e 40 mg EC 8 le 40 mg ity o f tablet 22:28: tablet,del [place] [address] ay Medical [facility] TAKE 1 TABLET BY MOUTH EVERY DAY montelukast Yes montelukas Univers 10 mg 8 t 10 mg ity of tablet 22:28: tablet [place] 42 TAKE 1 Medical TABLET BY Branch MOUTH EVERY DAY IN THE EVENING methocarbam Yes methocarba Univers oL 500 mg 03-24 mol 500 mg ity of tablet 22:28: tablet [place] 42 TAKE 1 Medical TABLET BY Branch MOUTH THREE TIMES DAILY FOR 5 DAYS meloxicam Yes meloxicam Uni vers 15 mg 8- 15 mg ity of tablet 22:28: tablet [place] 42 TAKE 1 Medical TABLET BY Branch MOUTH EVERY DAY losartan 50 Yes losartan Un yan mg tablet 03-24 50 mg ity of 22:28: tablet [place] 42 TAKE 1 Medical TABLET BY Branch MOUTH TWICE DAILY levothyroxi Yes levothyrox Univers ne 175 mcg 03-24 ine 175 ity of tablet 22:28: mcg tablet [place] 42 TAKE 1 Medical TABLET BY Branch MOUTH EVERY MORNING gabapentin Yes gabapentin U nivers 300 mg 03-24 300 mg ity of capsule 22:28: capsule [place] 42 TAKE 1 Medical CAPSULE BY Branch MOUTH AT BEDTIME DULoxetine Yes duloxetine U nivers 60 mg 03-24 60 mg ity of capsule 22:28: capsule,[place] 42 lay Medical [facility] TAKE 1 CAPSULE BY MOUTH TWICE DAILY divalproex Yes divalproex U nivers 500 mg EC 8 500 mg ity of tablet 22:28: tablet,del [place] 42 ay Medical [facility] TAKE 1 TABLET BY MOUTH DAILY amLODIPine Yes amlodipine U nivers 5 mg tablet 03-24 5 mg ity of 22:28: tablet [place] 42 TAKE 1 Medical TABLET BY Branch [...] ity o f mg tablet 22:28: at [place] [address] bedtime. Medical Branch acetaminoph Yes acetaminop Univers en-codeine 8-19 hen 300 ity of 300-30 mg 22:28: mg-codeine [place] tablet 42 30 mg Medical tablet Branch TAKE 1 TABLET BY MOUTH TWICE DAILY NEEDED traZODone Yes trazodone Uni vers 150 mg 8-19 150 mg ity of tablet 22:28: tablet [place] 42 TAKE 1 TO Medical 2 TABLETS Branch BY MOUTH EVERY NIGHT AT BEDTIME NEEDED FOR INSOMNIA traMADoL 50 Yes tramadol Un [facility] mg tablet 03-24 50 mg ity of 22:28: tablet [place] 42 TAKE 1 Medical TABLET BY Branch MOUTH THREE TIMES DAILY sucralfate Yes sucralfate U nivers 1 gram - 1 gram ity of tablet 22:28: tablet [place] 42 TAKE 1 Medical TABLET BY Branch MOUTH BEFORE MEALS AND AT BEDTIME spironolact Yes spironolac Univers one 25 mg 8- tone 25 mg ity of tablet 22:28: tablet [place] 42 TAKE 1 Medical TABLET BY Branch MOUTH EVERY DAY SITagliptin Yes Januvia Uni vers (JANUVIA) 8-19 100 mg ity of 100 mg 22:28: tablet [place] tablet 42 TAKE 1 Medical TABLET BY Branch MOUTH EVERY DAY FOR 16 DAYS QUEtiapine Yes quetiapine U nivers 300 mg 8-19 300 mg ity of tablet 22:28: tablet [place] 42 TAKE 1 Medical TABLET BY Branch MOUTH EVERY EVENING 1 TO 1.5 HOUR PRIOR TO BEDTIME WITH 300 CALORIES SNACK QUEtiapine Yes quetiapine U nivers 200 mg 8-19 200 mg ity of tablet 22:28: tablet [place] 42 TAKE 1 Medical TABLET BY Branch MOUTH TWICE DAILY pantoprazol Yes pantoprazo Univers e 40 mg EC 8 le 40 mg ity o f tablet 22:28: tablet,del [place] 42 ay Medical release [place] TAKE 1 TABLET BY MOUTH EVERY DAY montelukast Yes montelukas Univers 10 mg 8- t 10 mg ity of tablet 22:28: tablet [place] 42 TAKE 1 Medical TABLET BY Branch MOUTH EVERY DAY IN THE EVENING methocarbam Yes methocarba Univers oL 500 mg 8 mol 500 mg ity of tablet 22:28: tablet [place] 42 TAKE 1 Medical TABLET BY Branch MOUTH THREE TIMES DAILY FOR 5 DAYS meloxicam Yes meloxicam Uni vers 15 mg 8 15 mg ity of tablet 22:28: tablet [place] 42 TAKE 1 Medical TABLET BY Branch MOUTH EVERY DAY losartan 50 Yes losartan Un yan mg tablet 03-24 50 mg ity of 22:28: tablet [place] 42 TAKE 1 Medical TABLET BY Branch MOUTH TWICE DAILY levothyroxi Yes levothyrox Univers ne 175 mcg 03-24 ine 175 ity of tablet 22:28: mcg tablet [place] 42 TAKE 1 Medical TABLET BY Branch MOUTH EVERY MORNING gabapentin Yes gabapentin U nivers 300 mg 8 300 mg ity of capsule 22:28: capsule [place] 42 TAKE 1 Medical CAPSULE BY Branch MOUTH AT BEDTIME DULoxetine Yes duloxetine U nivers 60 mg 8 60 mg ity of capsule 22:28: [place] 42 lay Medical [facility] TAKE 1 CAPSULE BY MOUTH TWICE DAILY divalproex Yes divalproex U nivers 500 mg EC 8 500 mg ity of tablet 22:28: tablet,del [place] 42 [facility] Medical release [place] TAKE 1 TABLET BY MOUTH DAILY amLODIPine Yes amlodipine U nivers 5 mg tablet 03-24 5 mg ity of 22:28: tablet [place] 42 TAKE 1 Medical TABLET BY Branch [...] ity o f mg tablet 22:28: at [place] [address] bedtime. Medical Branch acetaminoph Yes acetaminop Univers en-codeine 8- hen 300 ity of 300-30 mg 22:28: mg-codeine [place] tablet 42 30 mg Medical tablet Branch TAKE 1 TABLET BY MOUTH TWICE DAILY NEEDED traZODone Yes trazodone Uni vers 150 mg 8- 150 mg ity of tablet 22:28: tablet [place] 42 TAKE 1 TO Medical 2 TABLETS Branch BY MOUTH EVERY NIGHT AT BEDTIME NEEDED FOR INSOMNIA traMADoL 50 Yes tramadol Un yan mg tablet 03-24 50 mg ity of 22:28: tablet [place] 42 TAKE 1 Medical TABLET BY Branch MOUTH THREE TIMES DAILY sucralfate Yes sucralfate U nivers 1 gram - 1 gram ity of tablet 22:28: tablet [place] 42 TAKE 1 Medical TABLET BY Branch MOUTH BEFORE MEALS AND AT BEDTIME spironolact Yes spironolac Univers one 25 mg - tone 25 mg ity of tablet 22:28: tablet [place] 42 TAKE 1 Medical TABLET BY Branch MOUTH EVERY DAY SITagliptin Yes Januvia Uni vers (JANUVIA) 8- 100 mg ity of 100 mg 22:28: tablet [place] tablet 42 TAKE 1 Medical TABLET BY Branch MOUTH EVERY DAY FOR 16 DAYS QUEtiapine Yes quetiapine U nivers 300 mg 8- 300 mg ity of tablet 22:28: tablet [place] 42 TAKE 1 Medical TABLET BY Branch MOUTH EVERY EVENING 1 TO 1.5 HOUR PRIOR TO BEDTIME WITH 300 CALORIES SNACK QUEtiapine Yes quetiapine U nivers 200 mg 8- 200 mg ity of tablet 22:28: tablet [place] 42 TAKE 1 Medical TABLET BY Branch MOUTH TWICE DAILY pantoprazol Yes pantoprazo Univers e 40 mg EC 8- le 40 mg ity o f tablet 22:28: tablet,del [place] 42 ayed Medical release Branch TAKE 1 TABLET BY MOUTH EVERY DAY montelukast Yes montelukas Univers 10 mg 8- t 10 mg ity of tablet 22:28: tablet [place] 42 TAKE 1 Medical TABLET BY Branch MOUTH EVERY DAY IN THE EVENING methocarbam Yes methocarba Univers oL 500 mg 8-19 mol 500 mg ity of tablet 22:28: tablet [place] 42 TAKE 1 Medical TABLET BY Branch MOUTH THREE TIMES DAILY FOR 5 DAYS meloxicam Yes meloxicam Uni vers 15 mg 8-19 15 mg ity of tablet 22:28: tablet [place] 42 TAKE 1 Medical TABLET BY Branch MOUTH EVERY DAY losartan 50 Yes losartan Un yan mg tablet 8-19 50 mg ity of 22:28: tablet [place] 42 TAKE 1 Medical TABLET BY Branch MOUTH TWICE DAILY levothyroxi Yes levothyrox Univers ne 175 mcg 8- ine 175 ity of tablet 22:28: mcg tablet [place] 42 TAKE 1 Medical TABLET BY Branch MOUTH EVERY MORNING gabapentin Yes gabapentin U nivers 300 mg 8-19 300 mg ity of capsule 22:28: capsule [place] 42 TAKE 1 Medical CAPSULE BY Branch MOUTH AT BEDTIME DULoxetine Yes duloxetine U nivers 60 mg 8-19 60 mg ity of capsule 22:28: [place] 42 layed Medical release Branch TAKE 1 CAPSULE BY MOUTH TWICE DAILY divalproex Yes divalproex U nivers 500 mg EC 8-19 500 mg ity of tablet 22:28: tablet,del [place] 42 ayed Medical release [place] TAKE 1 TABLET BY MOUTH DAILY amLODIPine Yes amlodipine U nivers 5 mg tablet 8-19 5 mg ity of 22:28: tablet [place] 42 TAKE 1 Medical TABLET BY Branch [...] ity o f mg tablet 22:28: at [place] [address] bedtime. Medical Branch acetaminoph Yes acetaminop Univers en-codeine 8- hen 300 ity of 300-30 mg 22:28: mg-codeine [place] tablet 42 30 mg Medical tablet Branch TAKE 1 TABLET BY MOUTH TWICE DAILY NEEDED traZODone Yes trazodone Uni vers 150 mg 03-24 150 mg ity of tablet 22:28: tablet [place] 42 TAKE 1 TO Medical 2 TABLETS Branch BY MOUTH EVERY NIGHT AT BEDTIME NEEDED FOR INSOMNIA traMADoL 50 Yes tramadol Un yan mg tablet 03-24 50 mg ity of 22:28: tablet [place] 42 TAKE 1 Medical TABLET BY Branch MOUTH THREE TIMES DAILY sucralfate Yes sucralfate U nivers 1 gram 03-24 1 gram ity of tablet 22:28: tablet [place] 42 TAKE 1 Medical TABLET BY Branch MOUTH BEFORE MEALS AND AT BEDTIME spironolact Yes spironolac Univers one 25 mg - tone 25 mg ity of tablet 22:28: tablet [place] 42 TAKE 1 Medical TABLET BY Branch MOUTH EVERY DAY SITagliptin Yes Januvia Uni vers (JANUVIA) 03-24 100 mg ity of 100 mg 22:28: tablet [place] tablet 42 TAKE 1 Medical TABLET BY Branch MOUTH EVERY DAY FOR 16 DAYS QUEtiapine Yes quetiapine U nivers 300 mg - 300 mg ity of tablet 22:28: tablet [place] 42 TAKE 1 Medical TABLET BY Branch MOUTH EVERY EVENING 1 TO 1.5 HOUR PRIOR TO BEDTIME WITH 300 CALORIES SNACK QUEtiapine Yes quetiapine U nivers 200 mg - 200 mg ity of tablet 22:28: tablet [place] 42 TAKE 1 Medical TABLET BY Branch MOUTH TWICE DAILY pantoprazol Yes pantoprazo Univers e 40 mg EC 8- le 40 mg ity o f tablet 22:28: tablet,del [place] 42 ayed Medical release Branch TAKE 1 TABLET BY MOUTH EVERY DAY montelukast Yes montelukas Univers 10 mg 8- t 10 mg ity of tablet 22:28: tablet [place] 42 TAKE 1 Medical TABLET BY Branch MOUTH EVERY DAY IN THE EVENING methocarbam Yes methocarba Univers oL 500 mg 8-19 mol 500 mg ity of tablet 22:28: tablet [place] 42 TAKE 1 Medical TABLET BY Branch MOUTH THREE TIMES DAILY FOR 5 DAYS meloxicam Yes meloxicam Uni vers 15 mg 8-19 15 mg ity of tablet 22:28: tablet [place] 42 TAKE 1 Medical TABLET BY Branch MOUTH EVERY DAY losartan 50 Yes losartan Un yan mg tablet 8-19 50 mg ity of 22:28: tablet [place] 42 TAKE 1 Medical TABLET BY Branch MOUTH TWICE DAILY levothyroxi Yes levothyrox Univers ne 175 mcg 8-19 ine 175 ity of tablet 22:28: mcg tablet [place] 42 TAKE 1 Medical TABLET BY Branch MOUTH EVERY MORNING gabapentin Yes gabapentin U nivers 300 mg 8-19 300 mg ity of capsule 22:28: capsule [place] [address] TAKE 1 Medical CAPSULE BY Branch MOUTH AT BEDTIME DULoxetine Yes duloxetine U nivers 60 mg 8-19 60 mg ity of capsule 22:28: [place] 42 layed Medical release Branch TAKE 1 CAPSULE BY MOUTH TWICE DAILY divalproex Yes divalproex U nivers 500 mg EC 8-19 500 mg ity of tablet 22:28: tablet,del [place] 42 ayed Medical release [place] TAKE 1 TABLET BY MOUTH DAILY amLODIPine Yes amlodipine U nivers 5 mg tablet 8-19 5 mg ity of 22:28: tablet [place] 42 TAKE 1 Medical TABLET BY Branch [...] ity o f mg tablet 22:28: at [place] 42 bedtime. Medical Branch acetaminoph 2022-0 Yes acetaminop Univers en-codeine 8- hen 300 ity of 300-30 mg 22:28: mg-codeine [place] tablet 42 30 mg Medical tablet Branch TAKE 1 TABLET BY MOUTH TWICE DAILY NEEDED traZODone Yes trazodone Uni vers 150 mg 8- 150 mg ity of tablet 22:28: tablet [place] 42 TAKE 1 TO Medical 2 TABLETS Branch BY MOUTH EVERY NIGHT AT BEDTIME NEEDED FOR INSOMNIA traMADoL 50 Yes tramadol Un yan mg tablet 03-24 50 mg ity of 22:28: tablet [place] 42 TAKE 1 Medical TABLET BY Branch MOUTH THREE TIMES DAILY sucralfate Yes sucralfate U nivers 1 gram 03-24 1 gram ity of tablet 22:28: tablet [place] 42 TAKE 1 Medical TABLET BY Branch MOUTH BEFORE MEALS AND AT BEDTIME spironolact Yes spironolac Univers one 25 mg - tone 25 mg ity of tablet 22:28: tablet [place] 42 TAKE 1 Medical TABLET BY Branch MOUTH EVERY DAY SITagliptin Yes Januvia Uni vers (JANUVIA) 03-24 100 mg ity of 100 mg 22:28: tablet [place] tablet 42 TAKE 1 Medical TABLET BY Branch MOUTH EVERY DAY FOR 16 DAYS QUEtiapine Yes quetiapine U nivers 300 mg 03-24 300 mg ity of tablet 22:28: tablet [place] 42 TAKE 1 Medical TABLET BY Branch MOUTH EVERY EVENING 1 TO 1.5 HOUR PRIOR TO BEDTIME WITH 300 CALORIES SNACK QUEtiapine Yes quetiapine U nivers 200 mg 03-24 200 mg ity of tablet 22:28: tablet [place] 42 TAKE 1 Medical TABLET BY Branch MOUTH TWICE DAILY pantoprazol Yes pantoprazo Univers e 40 mg EC 03-24 le 40 mg ity o f tablet 22:28: tablet,del [place] 42 ayed Medical release Branch TAKE 1 TABLET BY MOUTH EVERY DAY montelukast Yes montelukas Univers 10 mg 8- t 10 mg ity of tablet 22:28: tablet [place] 42 TAKE 1 Medical TABLET BY Branch MOUTH EVERY DAY IN THE EVENING methocarbam Yes methocarba Univers oL 500 mg 03-24 mol 500 mg ity of tablet 22:28: tablet [place] 42 TAKE 1 Medical TABLET BY Branch MOUTH THREE TIMES DAILY FOR 5 DAYS meloxicam Yes meloxicam Uni vers 15 mg 8-19 15 mg ity of tablet 22:28: tablet [place] 42 TAKE 1 Medical TABLET BY Branch MOUTH EVERY DAY losartan 50 Yes losartan Un yan mg tablet 8-19 50 mg ity of 22:28: tablet [place] 42 TAKE 1 Medical TABLET BY Branch MOUTH TWICE DAILY levothyroxi Yes levothyrox Univers ne 175 mcg 8- ine 175 ity of tablet 22:28: mcg tablet [place] 42 TAKE 1 Medical TABLET BY Branch MOUTH EVERY MORNING gabapentin Yes gabapentin U nivers 300 mg 8- 300 mg ity of capsule 22:28: capsule [place] [address] TAKE 1 Medical CAPSULE BY Branch MOUTH AT BEDTIME DULoxetine Yes duloxetine U nivers 60 mg 8- 60 mg ity of capsule 22:28: capsule,de [place] 42 layed Medical release Branch TAKE 1 CAPSULE BY MOUTH TWICE DAILY divalproex Yes divalproex U nivers 500 mg EC 8-19 500 mg ity of tablet 22:28: tablet,del [place] 42 ayed Medical release Branch TAKE 1 TABLET BY MOUTH DAILY amLODIPine Yes amlodipine U nivers 5 mg tablet 8- 5 mg ity of 22:28: tablet [place] [address] TAKE 1 Medical TABLET BY Branch MOUTH [...] ity o f mg tablet 22:28: at [place] [address] bedtime. Medical Branch acetaminoph Yes acetaminop Univers [...] 1 gram ity of tablet 22:28: tablet [place] 42 TAKE 1 Medical TABLET BY Branch [...] 8-19 50 mg ity of 22:28: tablet [place] 42 TAKE 1 Medical TABLET BY Branch MOUTH TWICE DAILY levothyroxi Yes levothyrox Univers ne 175 mcg 8-19 ine 175 ity of tablet 22:28: mcg tablet [place] 42 TAKE 1 Medical TABLET BY Branch MOUTH EVERY MORNING gabapentin Yes gabapentin U nivers 300 mg 8-19 300 mg ity of capsule 22:28: capsule [place] 42 TAKE 1 Medical CAPSULE BY Branch MOUTH AT BEDTIME DULoxetine Yes duloxetine U nivers 60 mg 8-19 60 mg ity of capsule 22:28: capsule,de [place] 42 layed Medical release Branch TAKE 1 CAPSULE BY MOUTH TWICE DAILY divalproex Yes divalproex U nivers 500 mg EC 8-19 500 mg ity of tablet 22:28: tablet,del [place] 42 ayed Medical release Branch TAKE 1 TABLET BY MOUTH DAILY amLODIPine Yes amlodipine U nivers 5 mg tablet - 5 mg ity of 22:28: tablet [place] 42 TAKE 1 Medical TABLET BY Branch [...] ity o f mg tablet 22:28: at [place] [address] bedtime. Medical Branch acetaminoph Yes acetaminop Univers en-codeine 8-19 hen 300 ity of 300-30 mg 22:28: mg-codeine [place] tablet 42 30 mg Medical tablet Branch TAKE 1 TABLET BY MOUTH TWICE DAILY NEEDED traZODone Yes trazodone Uni vers 150 mg 8-19 150 mg ity of tablet 22:28: tablet [place] 42 TAKE 1 TO Medical 2 TABLETS Branch BY MOUTH EVERY NIGHT AT BEDTIME NEEDED FOR INSOMNIA traMADoL 50 Yes tramadol Un yan mg tablet 8- 50 mg ity of 22:28: tablet [place] 42 TAKE 1 Medical TABLET BY Branch MOUTH THREE TIMES DAILY sucralfate Yes sucralfate U nivers 1 gram - 1 gram ity of tablet 22:28: tablet [place] 42 TAKE 1 Medical TABLET BY Branch MOUTH BEFORE MEALS AND AT BEDTIME spironolact Yes spironolac Univers one 25 mg - tone 25 mg ity of tablet 22:28: tablet [place] 42 TAKE 1 Medical TABLET BY Branch MOUTH EVERY DAY SITagliptin Yes Januvia Uni vers (JANUVIA) 8- 100 mg ity of 100 mg 22:28: tablet [place] tablet 42 TAKE 1 Medical TABLET BY Branch MOUTH EVERY DAY FOR 16 DAYS QUEtiapine Yes quetiapine U nivers 300 mg 03-24 300 mg ity of tablet 22:28: tablet [place] 42 TAKE 1 Medical TABLET BY Branch MOUTH EVERY EVENING 1 TO 1.5 HOUR PRIOR TO BEDTIME WITH 300 CALORIES SNACK QUEtiapine Yes quetiapine U nivers 200 mg 03-24 200 mg ity of tablet 22:28: tablet [place] 42 TAKE 1 Medical TABLET BY Branch MOUTH TWICE DAILY pantoprazol Yes pantoprazo Univers e 40 mg EC 03-24 le 40 mg ity o f tablet 22:28: tablet,del [place] 42 ayed Medical release Branch TAKE 1 TABLET BY MOUTH EVERY DAY montelukast Yes montelukas Univers 10 mg 03-24 t 10 mg ity of tablet 22:28: tablet [place] 42 TAKE 1 Medical TABLET BY Branch MOUTH EVERY DAY IN THE EVENING methocarbam Yes methocarba Univers oL 500 mg 03-24 mol 500 mg ity of tablet 22:28: tablet [place] 42 TAKE 1 Medical TABLET BY Branch MOUTH THREE TIMES DAILY FOR 5 DAYS meloxicam Yes meloxicam Uni vers 15 mg 03-24 15 mg ity of tablet 22:28: tablet [place] 42 TAKE 1 Medical TABLET BY Branch MOUTH EVERY DAY losartan 50 Yes losartan Un yan mg tablet 03-24 50 mg ity of 22:28: tablet [place] 42 TAKE 1 Medical TABLET BY Branch MOUTH TWICE DAILY levothyroxi Yes levothyrox Univers ne 175 mcg 03-24 ine 175 ity of tablet 22:28: mcg tablet [place] TAKE 1 Medical TABLET BY Branch MOUTH EVERY MORNING gabapentin Yes gabapentin U nivers 300 mg 03-24 300 mg ity of capsule 22:28: capsule [place] 42 TAKE 1 Medical CAPSULE BY Branch MOUTH AT BEDTIME DULoxetine Yes duloxetine U nivers 60 mg 03-24 60 mg ity of capsule 22:28: capsule,de [place] 42 layed Medical release Branch TAKE 1 CAPSULE BY MOUTH TWICE DAILY divalproex Yes divalproex U nivers 500 mg EC 8 500 mg ity of tablet 22:28: tablet,del [place] 42 ayed Medical release Branch TAKE 1 TABLET BY MOUTH DAILY amLODIPine Yes amlodipine U nivers 5 mg tablet 03-24 5 mg ity of 22:28: tablet [place] 42 TAKE 1 Medical TABLET BY Branch [...] ed, Routine, Bowel Prep, Colonoscop y peg-electro 2-0 Yes 4000mL 4,000 mL, Univers lyte soln 8-18 Oral, PRN ity o f (GOLYTELY) 18:32: - SEE [place] [id number] INSTRUCTIO Me dical .74 -5.86 NS, Branch gram Starting solution on Analy 4,000 mL 03/23/22 at 1332, Until Discontinu ed, Routine, Bowel Prep, colonoscop y ondansetron 2021-0 Yes 4mg 4 mg, Slow Univers (ZOFRAN 8-18 IV Push, ity of (PF)) 18:32: Q6HPRN, [place] injection 4 54 Starting Medi gregg mg on Analy Branch 03/23/22 at 1332, Until Discontinu ed, Routine, Nausea and Vomiting (N/V) peg-electro 2-0 Yes 4000mL 4,000 mL, Univers lyte soln 8-18 Oral, PRN ity o f (GOLYTELY) 18:32: - SEE [place] [id number] INSTRUCTIO Me dical .74 -5.86 NS, Branch gram Starting solution on Analy 4,000 mL 03/23/22 at 1332, Until Discontinu ed, Routine, Bowel Prep, colonoscop y ondansetron 2021-0 Yes 4mg 4 mg, Slow Univers (ZOFRAN 8-18 IV Push, ity of (PF)) 18:32: Q6HPRN, [place] injection 4 54 Starting Medi gregg mg on Analy Branch 03/23/22 at 1332, Until Discontinu ed, Routine, Nausea and Vomiting (N/V) peg-electro 2022-0 2022- No 4000mL 4,000 mL, Univers lyte soln 8-18 08-20 Oral, PRN ity of (GOLYTELY) 18:32: 05:28 - SEE [place] [id number] 54 :43 INSTRUCTIO Me dical .74 [...] Branch Starting on Sun03/23/22 at 1332, Until Analy 03/23/22 at 1347, [...] Branch Starting on Sun03/23/22 at 1332, Until Analy 03/23/22 at 1347, Routine, Bowel Prep, Colonoscop y maalox-lido 2021-0 Yes 5mL 5 mL, Unive rs usha 2% 03-23 Oral, ity of viscous 1:1 16:35: TIDPRN, [place] 52 Starting Medic al (COMPOUNDED on Sun Branch ) 03/23/22 at 1135, Until Discontinu ed, Routine, stomach pain maalox-lido 2021-0 Yes 5mL 5 mL, Unive rs usha 2% 03-23 Oral, ity of viscous 1:1 16:35: TIDPRN, [place] suspension 52 Starting Medic al (COMPOUNDED on [facility] ) 03/23/22 at 1135, Until Discontinu ed, Routine, stomach pain maalox-lido 2021- No 5mL 5 mL, Univ ers usha 2% 03-23 Oral, ity of viscous 1:1 16:35: 05:28 TIDPRN, [place] suspension 52 :43 Starting Medic al (COMPOUNDED on [facility] ) 03/23/22 at 1135, Until 03/25/22 at 0028, Routine, stomach pain DULoxetine Yes 60mg 60 mg, Unive rs (CYMBALTA) 03-23 Oral, ity of capsule 60 14:00: DAILY, [place] mg 00 First dose Medical on [facility] 03/23/22 at 0900, Until Discontinu ed, Routine DULoxetine Yes 60mg 60 mg, Unive rs (CYMBALTA) 03-23 Oral, ity of capsule 60 14:00: DAILY, [place] mg 00 First dose Medical on [facility] 03/23/22 at 0900, Until Discontinu ed, Routine DULoxetine 2021- No 60mg 60 mg, Univ ers (CYMBALTA) 03-23 Oral, ity of capsule 60 14:00: 05:28 DAILY, [place] mg 00 :43 First dose Medical on [facility] 03/23/22 at 0900, Until Discontinu ed, Routine levothyroxi Yes 175ug 175 mcg, U nivers ne 03-23 Oral, ity of (SYNTHROID) 11:00: QAM-0600, [place] tablet 175 00 First dose Med ical mcg on [facility] 03/23/22 at 0600, Until Discontinu ed, Routine levothyroxi Yes 175ug 175 mcg, U nivers ne 03-23 Oral, ity of (SYNTHROID) 11:00: QAM-0600, [place] tablet 175 00 First dose Med ical mcg on [facility] 03/23/22 at 0600, Until Discontinu ed, Routine levothyroxi 2021- No 175ug 175 mcg, Univers ne 03-23 Oral, ity of (SYNTHROID) 11:00: 05:28 QAM-0600, [place] tablet 175 00 :43 First dose Med ical mcg on [facility] Branch 03/23/22 at 0600, Until Discontinu ed, Routine HYDROcodone 2021- 2022- No 1{tbl} 1 tablet, Univers -acetaminop 03-23 Oral, ity of hen (NORCO 08:30: 07:29 ONCE, 1 [place] 5) 5-325 mg 00 :00 dose, On Medi gregg tablet u Branch tablet 03/23/22 at 0330, Routine HYDROcodone 2021-2021- No 1{tbl} 1 tablet, Univers -acetaminop 03-23 Oral, ity of hen (NORCO 08:30: 07:29 ONCE, 1 [place] 5) 5-325 mg 00 :00 dose, On Medi gregg tablet u Branch tablet 03/23/22 at 0330, Routine HYDROcodone 2021-2021- No 1{tbl} 1 tablet, Univers -acetaminop 03-23 Oral, ity of hen (NORCO 08:30: 07:29 ONCE, 1 [place] 5) 5-325 mg 00 :00 dose, On Medi gregg tablet u Branch tablet 03/23/22 at 0330, Routine simvastatin 2021-0 Yes 20mg 20 mg, Univ ers (ZOCOR) 8-18 Oral, QHS, ity of tablet 20 02:00: First dose [place] mg 00 on [facility] 03/22/22 at Branch 2100, Until Discontinu ed, Routine gabapentin 2021-0 Yes 300mg 300 mg, Uni vers (NEURONTIN) 8-18 Oral, QHS, it y of capsule 300 02:00: First dose [place] mg 00 on [facility] 03/22/22 at Branch 2100, Until Discontinu ed, Routine simvastatin 2022-0 Yes 20mg 20 mg, Univ ers (ZOCOR) 8-18 Oral, QHS, ity of tablet 20 02:00: First dose [place] mg 00 on [facility] 03/22/22 at Branch 2100, Until Discontinu ed, Routine gabapentin 2022-0 Yes 300mg 300 mg, Uni vers (NEURONTIN) 8-18 Oral, QHS, it y of capsule 300 02:00: First dose [place] mg 00 on [facility] 03/22/22 at [place] 2100, Until Discontinu ed, Routine simvastatin 2021- No 20mg 20 mg, Uni vers (ZOCOR) 03-23 Oral, QHS, ity o f tablet 20 02:00: 05:28 First dose [place] mg 00 :43 on [facility] 03/22/22 at [place] 2100, Until Discontinu ed, Routine gabapentin 2021- No 300mg 300 mg, Un yan (NEURONTIN) 03-23 Oral, QHS, i ty of capsule 300 02:00: 05:28 First dose [place] mg 00 :43 on [facility] 03/22/22 at [place] 2100, Until Discontinu ed, Routine QUEtiapine Yes 200mg 200 mg, Uni vers (SEROQUEL) 03-23 Oral, BID, ity of tablet 200 01:00: First dose [place] mg 00 on [facility] 03/22/22 at [place] 1999, Until Discontinu ed, Routine QUEtiapine Yes 200mg 200 mg, Uni vers (SEROQUEL) 03-23 Oral, BID, ity of tablet 200 01:00: First dose [place] mg 00 on [facility] 03/22/22 at [place] 1999, Until Discontinu ed, Routine QUEtiapine 2021- No 200mg 200 mg, Un yan (SEROQUEL) 03-23 Oral, BID, it y of tablet 200 01:00: 05:28 First dose [place] mg 00 :43 on [facility] 03/22/22 at [place] 1999, Until Discontinu ed, Routine acetaminoph Yes 650mg 650 mg, Un yan en 03-22 Oral, ity of (TYLENOL) 23:39: Q6HPRN, [place] tablet 650 24 Starting Medic al mg on Sun [place] 03/22/22 at 1839, Until Discontinu ed, Routine, Pain (scale 1-3) acetaminoph Yes 650mg 650 mg, Un yan en 03-22 Oral, ity of (TYLENOL) 23:39: Q6HPRN, [place] tablet 650 24 Starting Medic al mg on Sun [place] 03/22/22 at 1839, Until Discontinu ed, Routine, [...] 2021- No Subcutaneo Uni vers Scale 03-22 us, TID ity of Insulin - 22:00: 05:28 MEALS+HS, [place] Lispro 00 :43 First dose Medical (HumaLOG) + on Wed Branch Fsbg 03/22/22 at Testing 1700, Until [...] No 1mg 1 mg, Univers (GLUCAGEN 03-22 0820 Intramuscu ity of DIAGNOSTIC 20:58: 05:28 lar, [...] Starting infusion on Sun03/22/22 at 1345 pantoprazol 2021-2021- No 8mg/h 8 mg/hr U nivers e 03-22 (50 ity of (PROTONIX) 18:45: 22:22 mL/hr), IV [place] 80 mg in 00 :23 Infusion, Medica l NaCl 0.9% CONTINUOUS Bran ch (NS) 500 mL , Starting infusion on Sun03/22/22 at 1345 pantoprazol 2021-2021- No 8mg/h 8 mg/hr U nivers e [...] ed, Routine, Local anesthesia NaCl 0.9% 0 Yes 10mL 10 mL, Univer s (NS) [...] at 0028, Routine, line maintenanc e lidocaine 2021- No 5mL 5 mL, Univer s 1% (PF) 03-22 Subcutaneo ity o f (XYLOCAINE) 18:06: 05:28 us, PRN, [place] injection 5 57 :43 Starting Medi gregg mL on Sun Branch 03/22/22 at 1306, Until 03/25/22 at 0028, Routine, Local anesthesia simvastatin Yes 20mg Take 20 mg Univers (ZOCOR) 20 03-22 by mouth ity o f mg tablet 15:57: at [place] [address] bedtime. Medical Branch QUEtiapine Yes quetiapine U nivers 200 mg 03-22 200 mg ity of tablet 15:57: tablet [place] [address] TAKE 1 Medical TABLET BY Branch MOUTH TWICE DAILY levothyroxi Yes levothyrox Univers ne 175 mcg 03-22 ine 175 ity of tablet 15:57: mcg tablet [place] [address] TAKE 1 Medical TABLET BY Branch MOUTH EVERY MORNING gabapentin Yes gabapentin U nivers 300 mg 03-22 300 mg ity of capsule 15:57: capsule [place] 46 TAKE 1 Medical CAPSULE BY Branch [...] 150 mg ity of tablet 10:34: tablet [place] 54 TAKE 1 TO Medical 2 TABLETS Branch BY MOUTH EVERY NIGHT AT BEDTIME NEEDED FOR INSOMNIA traMADoL 50 Yes tramadol Un yan mg tablet 03-22 50 mg ity of 10:34: tablet [place] 54 TAKE 1 Medical TABLET BY Branch MOUTH THREE TIMES DAILY sucralfate Yes sucralfate U nivers 1 gram 03-22 1 gram ity of tablet 10:34: tablet [place] 54 TAKE 1 Medical TABLET BY Branch MOUTH BEFORE MEALS AND AT BEDTIME spironolact Yes spironolac Univers one 25 mg 03-22 tone 25 mg ity of tablet 10:34: tablet [place] 54 TAKE 1 Medical TABLET BY Branch MOUTH EVERY DAY SITagliptin Yes Januvia Uni vers (JANUVIA) 03-22 100 mg ity of 100 mg 10:34: tablet [place] tablet 54 TAKE 1 Medical TABLET BY Branch MOUTH EVERY DAY FOR 16 DAYS QUEtiapine Yes quetiapine U nivers 300 mg 03-22 300 mg ity of tablet 10:34: tablet [place] 54 TAKE 1 Medical TABLET BY Branch MOUTH EVERY EVENING 1 TO 1.5 HOUR PRIOR TO BEDTIME WITH 300 CALORIES SNACK pantoprazol Yes pantoprazo Univers e 40 mg EC 03-22 le 40 mg ity o f tablet 10:34: tablet[address] Medical [facility] TAKE 1 TABLET BY MOUTH EVERY DAY montelukast Yes montelukas Univers 10 mg 03-22 t 10 mg ity of tablet 10:34: tablet [place] 54 TAKE 1 Medical TABLET BY Branch MOUTH EVERY DAY IN THE EVENING methocarbam Yes methocarba Univers oL 500 mg 03-22 mol 500 mg ity of tablet 10:34: tablet [place] [address] TAKE 1 Medical TABLET BY Branch MOUTH THREE TIMES DAILY FOR 5 DAYS meloxicam Yes meloxicam Uni vers 15 mg 03-22 15 mg ity of tablet 10:34: tablet [place] 54 TAKE 1 Medical TABLET BY Branch MOUTH EVERY DAY losartan 50 Yes losartan Un yan mg tablet 03-22 50 mg ity of 10:34: tablet [place] [address] TAKE 1 Medical TABLET BY Branch MOUTH TWICE DAILY divalproex Yes divalproex U nivers 500 mg EC 8 500 mg ity of tablet 10:34: tablet,[facility] 54 ed Medical release [place] TAKE 1 TABLET BY MOUTH DAILY amLODIPine Yes amlodipine U nivers 5 mg tablet 03-22 5 mg ity of 10:34: tablet [place] 54 TAKE 1 Medical TABLET BY Branch [...] ity o f mg tablet 17:58: at [place] [address] bedtime. Medical Branch acetaminoph Yes acetaminop Univers en-codeine 6-17 hen 300 ity of 300-30 mg 17:58: mg-codeine [place] tablet 36 30 mg Medical tablet Branch TAKE 1 TABLET BY MOUTH TWICE DAILY NEEDED traZODone Yes trazodone Uni vers 150 mg 6-17 150 mg ity of tablet 17:58: tablet [place] 36 TAKE 1 TO Medical 2 TABLETS Branch BY MOUTH EVERY NIGHT AT BEDTIME NEEDED FOR INSOMNIA traMADoL 50 Yes tramadol Un yan mg tablet 6-17 50 mg ity of 17:58: tablet [place] 36 TAKE 1 Medical TABLET BY Branch MOUTH THREE TIMES DAILY sucralfate Yes sucralfate U nivers 1 gram 6-17 1 gram ity of tablet 17:58: tablet [place] 36 TAKE 1 Medical TABLET BY Branch MOUTH BEFORE MEALS AND AT BEDTIME spironolact Yes spironolac Univers one 25 mg 6-17 tone 25 mg ity of tablet 17:58: tablet [place] 36 TAKE 1 Medical TABLET BY Branch MOUTH EVERY DAY SITagliptin Yes Januvia Uni vers (JANUVIA) 6-17 100 mg ity of 100 mg 17:58: tablet [place] tablet 36 TAKE 1 Medical TABLET BY Branch MOUTH EVERY DAY FOR 16 DAYS QUEtiapine Yes quetiapine U nivers 300 mg 6-17 300 mg ity of tablet 17:58: tablet [place] 36 TAKE 1 Medical TABLET BY Branch MOUTH EVERY EVENING 1 TO 1.5 HOUR PRIOR TO BEDTIME WITH 300 CALORIES SNACK QUEtiapine Yes quetiapine U nivers 200 mg 6-17 200 mg ity of tablet 17:58: tablet [place] 36 TAKE 1 Medical TABLET BY Branch MOUTH TWICE DAILY pantoprazol Yes pantoprazo Univers e 40 mg EC 6-17 le 40 mg ity o f tablet 17:58: tablet,del [place] 36 [facility] Medical release [place] TAKE 1 TABLET BY MOUTH EVERY DAY methocarbam Yes methocarba Univers oL 500 mg 01-20 mol 500 mg ity of tablet 17:58: tablet [place] 36 TAKE 1 Medical TABLET BY Branch MOUTH THREE TIMES DAILY FOR 5 DAYS meloxicam Yes meloxicam Uni vers 15 mg 01-20 15 mg ity of tablet 17:58: tablet [place] 36 TAKE 1 Medical TABLET BY Branch MOUTH EVERY DAY losartan 50 Yes losartan Un yan mg tablet 01-20 50 mg ity of 17:58: tablet [place] 36 TAKE 1 Medical TABLET BY Branch MOUTH TWICE DAILY levothyroxi Yes levothyrox Univers ne 175 mcg 01-20 ine 175 ity of tablet 17:58: mcg tablet [place] [address] TAKE 1 Medical TABLET BY Branch MOUTH EVERY MORNING gabapentin Yes gabapentin U nivers 300 mg 17 300 mg ity of capsule 17:58: capsule [place] 36 TAKE 1 Medical CAPSULE BY Branch MOUTH AT BEDTIME DULoxetine Yes duloxetine U nivers 60 mg -17 60 mg ity of capsule 17:58: capsule,de [place] 36 lay Medical release [place] TAKE 1 CAPSULE BY MOUTH TWICE DAILY divalproex Yes divalproex U nivers 500 mg EC 17 500 mg ity of tablet 17:58: tablet,[facility] 36 [facility] Medical release [place] TAKE 1 TABLET BY MOUTH DAILY amLODIPine Yes amlodipine U nivers 5 mg tablet 17 5 mg ity of 17:58: tablet [place] [address] TAKE 1 Medical TABLET BY Branch MOUTH TWICE DAILY acetaminoph Yes 1{tbl} Take 1 Un yan en-codeine 6-17 tablet by ity of (TYLENOL-CO 17:58: mouth 3 [place] as DEINE #4) 36 (three) Medical 300-60 mg times Branch tablet daily. montelukast Yes montelukas Univers 10 mg 6-08 t 10 mg ity of tablet 09:37: tablet [place] 16 TAKE 1 Medical TABLET BY Branch [...] 1{packe QD Polyethyle e Glycol e Glycol 11-08-05 t_mixed ne Glycol 3350 17 GM 3350 17 GM 00:00: 00:00 _with_8 3350 17 GM 00 :00 _ounces _of_flu id} Polyethylen Polyethylen 2021- No 1{packe QD Polyethyle e Glycol e Glycol - 05-05 t_mixed ne Glycol 3350 17 GM 3350 17 GM 00:00: 00:00 _with_8 3350 17 GM 00 :00 _ounces _of_flu id} Fluconazole Fluconazole 2021- No 1{table Fluconazol 150 MG 150 MG 18 08-26 t} e 150 MG 00:00: 00:00 00 [...] HFA Sulfate HFA 1-11 as_need Sulfate 108 ( 108 (90 00:00: ed} HFA 108 Base) [...] (90 Base) MCG/ACT MCG/ACT MCG/ACT Amoxicillin Amoxicillin 2021-0 2021- No 1{capsu TID Amoxicilli 500 mg 500 mg 08-16 le} n 500 mg 00:00: 00:00 00 :00 Amoxicillin Amoxicillin 2021-0 2021- No 1{capsu TID Amoxicilli 500 mg 500 mg 08-16 le} n 500 mg 00:00: 00:00 00 :00 lancets lancets 2020-1 No QD lancets 1-17 [...] QD lancets 1-17 00:00: 00 Strips Strips 2020-1 2021- No QD Strips 1-17 05-16 00:00: 00:00 [...] 05-16 00:00: 00:00 00 :00 Glucometer Glucometer 2020-2- No Glucometer n/s n/s 1-17 -15 n/s 00:00: 00:00 00 :00 Glucometer Glucometer 2020- 2022- No Glucometer n/s n/s 1-17 -15 n/s [...] 1-17 -15 n/s 00:00: 00:00 00 :00 Montelukast Montelukast 2020-0 No 1{table Montelukas Sodium 10 Sodium 10 9-15 t} t Sodium MG MG 00:00: 10 MG 00 dicyclomine 2020-0 Yes [id number] 10mg Take 1 Univers 10 mg 6-25 capsule by ity of capsule 00:00: mouth 3 (three) Medical times Branch daily as needed for Abdominal pain. loperamide 2020-0 Yes [id number] 2mg Take 1 U nivers 2 mg 6-25 capsule by ity of capsule 00:00: mouth [place] 00 every 4 Medical (four) Branch hours as needed for Diarrhea. dicyclomine 2020-0 Yes [id number] 10mg Take 1 Univers 10 mg 6-25 capsule by ity of capsule 00:00: mouth 3 (three) Medical times Branch daily as needed for Abdominal pain. loperamide 2020-0 Yes [id number] 2mg Take 1 U nivers 2 mg 6-25 capsule by ity of capsule 00:00: mouth [place] 00 every 4 Medical (four) Branch hours as needed for Diarrhea. dicyclomine 2020-0 Yes [id number] 10mg Take 1 Univers 10 mg 6-25 capsule by ity of capsule 00:00: mouth (three) Medical times Branch daily as needed for Abdominal pain. loperamide 2020-0 Yes [id number] 2mg Take 1 U nivers 2 mg 6-25 capsule by ity of capsule 00:00: mouth [place] 00 every 4 Medical (four) Branch hours as needed for Diarrhea. dicyclomine 2020-0 Yes [id number] 10mg Take 1 Univers 10 mg 6-25 capsule by ity of capsule 00:00: mouth (three) Medical times Branch daily as needed for Abdominal pain. loperamide 2020-0 Yes [id number] 2mg Take 1 U nivers 2 mg 6-25 capsule by ity of capsule 00:00: mouth [place] 00 every 4 Medical (four) Branch hours as needed for Diarrhea. dicyclomine 2020-0 Yes [id number] 10mg Take 1 Univers 10 mg 6-25 capsule by ity of capsule 00:00: mouth 3 (three) Medical times Branch daily as needed for Abdominal pain. loperamide 2020-0 Yes [id number] 2mg Take 1 U nivers 2 mg 6-25 capsule by ity of capsule 00:00: mouth [place] 00 every 4 Medical (four) Branch hours as needed for Diarrhea. dicyclomine 2020-0 Yes [id number] 10mg Take 1 Univers 10 mg 6-25 capsule by ity of capsule 00:00: mouth 3 (three) Medical times Branch daily as needed for Abdominal pain. loperamide 2020-0 Yes [id number] 2mg Take 1 U nivers 2 mg 6-25 capsule by ity of capsule 00:00: mouth [place] 00 every 4 Medical (four) Branch hours as needed for Diarrhea. dicyclomine 2020-0 Yes [id number] 10mg Take 1 Univers 10 mg 6-25 capsule by ity of capsule 00:00: mouth 3 (three) Medical times Branch daily as needed for Abdominal pain. loperamide 2020-0 Yes [id number] 2mg Take 1 U nivers 2 mg 6-25 capsule by ity of capsule 00:00: mouth 00 every 4 Medical (four) Branch hours as needed for Diarrhea. dicyclomine 2020-0 Yes [id number] 10mg Take 1 Univers 10 mg 6-25 capsule by ity of capsule 00:00: mouth (three) Medical times Branch daily as needed for Abdominal pain. loperamide 2020-0 Yes [id number] 2mg Take 1 U nivers 2 mg 6-25 capsule by ity of capsule 00:00: mouth 00 every 4 Medical (four) Branch hours as needed for Diarrhea. dicyclomine 2020-0 Yes [id number] 10mg Take 1 Univers 10 mg 6-25 capsule by ity of capsule 00:00: mouth (three) Medical times Branch daily as needed for Abdominal pain. loperamide 2020-0 Yes [id number] 2mg Take 1 U nivers 2 mg 6-25 capsule by ity of capsule 00:00: mouth every 4 Medical (four) Branch hours as needed for Diarrhea. dicyclomine 2020-0 Yes [id number] 10mg Take 1 Univers 10 mg 6-25 capsule by ity of capsule 00:00: mouth (three) Medical times Branch daily as needed for Abdominal pain. loperamide 2020-0 Yes [id number] 2mg Take 1 U nivers 2 mg 6-25 capsule by ity of capsule 00:00: mouth [place] 00 every 4 Medical (four) Branch hours as needed for Diarrhea. dicyclomine 2020-0 Yes [id number] 10mg Take 1 Univers 10 mg 6-25 capsule by ity of capsule 00:00: mouth 3 00 (three) Medical times Branch daily as needed for Abdominal pain. loperamide 2020-0 Yes [id number] 2mg Take 1 U nivers 2 mg 6-25 capsule by ity of capsule 00:00: mouth every 4 Medical (four) Branch hours as needed for Diarrhea. dicyclomine 2020-0 Yes [id number] 10mg Take 1 Univers 10 mg 6-25 capsule by ity of capsule 00:00: mouth (three) Medical times Branch daily as needed for Abdominal pain. loperamide 2020-0 Yes [id number] 2mg Take 1 U nivers 2 mg 6-25 capsule by ity of capsule 00:00: mouth every 4 Medical (four) Branch hours as needed for Diarrhea. dicyclomine 2020-0 Yes [id number] 10mg Take 1 Univers 10 mg 6-25 capsule by ity of capsule 00:00: mouth (three) Medical times Branch daily as needed for Abdominal pain. loperamide 2020-0 Yes [id number] 2mg Take 1 U nivers 2 mg 6-25 capsule by ity of capsule 00:00: mouth every 4 Medical (four) Branch hours as needed for Diarrhea. dicyclomine 2020-0 Yes [id number] 10mg Take 1 Univers 10 mg 6-25 capsule by ity of capsule 00:00: mouth (three) Medical times Branch daily as needed for Abdominal pain. loperamide 2020-0 Yes [id number] 2mg Take 1 U nivers 2 mg 6-25 capsule by ity of capsule 00:00: mouth every 4 Medical (four) Branch hours as needed for Diarrhea. dicyclomine 2020-0 Yes [id number] 10mg Take 1 Univers 10 mg 6-25 capsule by ity of capsule 00:00: mouth (three) Medical times Branch daily as needed for Abdominal pain. loperamide 2020-0 Yes [id number] 2mg Take 1 U nivers 2 mg 6-25 capsule by ity of capsule 00:00: mouth every 4 Medical (four) Branch hours as needed for Diarrhea. dicyclomine 2020-0 Yes [id number] 10mg Take 1 Univers 10 mg 6-25 capsule by ity of capsule 00:00: mouth (three) Medical times Branch daily as needed for Abdominal pain. loperamide 2020-0 Yes [id number] 2mg Take 1 U nivers 2 mg 6-25 capsule by ity of capsule 00:00: mouth every 4 Medical (four) Branch hours as needed for Diarrhea. dicyclomine 2020-0 Yes [id number] 10mg Take 1 Univers 10 mg 6-25 capsule by ity of capsule 00:00: mouth (three) Medical times Branch daily as needed for Abdominal pain. loperamide 2020-0 Yes [id number] 2mg Take 1 U nivers 2 mg 6-25 capsule by ity of capsule 00:00: mouth every 4 Medical (four) Branch hours as needed for Diarrhea. dicyclomine 2020-0 Yes [id number] 10mg Take 1 Univers 10 mg 6-25 capsule by ity of capsule 00:00: mouth (three) Medical times Branch daily as needed for Abdominal pain. loperamide 2020-0 Yes [id number] 2mg Take 1 U nivers 2 mg 6-25 capsule by ity of capsule 00:00: mouth every 4 Medical (four) Branch hours as needed for Diarrhea. dicyclomine 2020-0 Yes [id number] 10mg Take 1 Univers 10 mg 6-25 capsule by ity of capsule 00:00: mouth (three) Medical times Branch daily as needed for Abdominal pain. loperamide 2020-0 Yes [id number] 2mg Take 1 U nivers 2 mg 6-25 capsule by ity of capsule 00:00: mouth every 4 Medical (four) Branch hours as needed for Diarrhea. dicyclomine 2020-0 Yes [id number] 10mg Take 1 Univers 10 mg 6-25 capsule by ity of capsule 00:00: mouth (three) Medical times Branch daily as needed for Abdominal pain. loperamide 1-0 Yes [id number] 2mg Take 1 U nivers 2 mg 6-25 capsule by ity of capsule 00:00: mouth 00 every 4 Medical (four) Branch hours as needed for Diarrhea. dicyclomine 2021-0 Yes [id number] 10mg Take 1 Univers 10 mg 6-25 capsule by ity of capsule 00:00: mouth (three) Medical times Branch daily as needed for Abdominal pain. loperamide 2021-0 Yes [id number] 2mg Take 1 U nivers 2 mg 6-25 capsule by ity of capsule 00:00: mouth [place] 00 every 4 Medical (four) Branch hours as needed for Diarrhea. dicyclomine 2021-0 Yes [id number] 10mg Take 1 Univers 10 mg 6-25 capsule by ity of capsule 00:00: mouth 3 (three) Medical times Branch daily as needed for Abdominal pain. loperamide 2020-0 Yes [id number] 2mg Take 1 U nivers 2 mg 6-25 capsule by ity of capsule 00:00: mouth [place] 00 every 4 Medical (four) Branch hours as needed for Diarrhea. dicyclomine 2020-0 Yes [id number] 10mg Take 1 Univers 10 mg 6-25 capsule by ity of capsule 00:00: mouth (three) Medical times Branch daily as needed for Abdominal pain. loperamide 2020-0 Yes [id number] 2mg Take 1 U nivers 2 mg 6-25 capsule by ity of capsule 00:00: mouth [place] 00 every 4 Medical (four) Branch hours as needed for Diarrhea. dicyclomine 2020-0 Yes [id number] 10mg Take 1 Univers 10 mg 6-25 capsule by ity of capsule 00:00: mouth (three) Medical times Branch daily as needed for Abdominal pain. loperamide 2020-0 Yes [id number] 2mg Take 1 U nivers 2 mg 6-25 capsule by ity of capsule 00:00: mouth 00 every 4 Medical (four) Branch hours as needed for Diarrhea. dicyclomine 2021-0 Yes [id number] 10mg Take 1 Univers 10 mg 6-25 capsule by ity of capsule 00:00: mouth 3 (three) Medical times Branch daily as needed for Abdominal pain. loperamide 1-0 Yes [id number] 2mg Take 1 U nivers 2 mg 6-25 capsule by ity of capsule 00:00: mouth [place] 00 every 4 Medical (four) Branch hours as needed for Diarrhea. dicyclomine 2021-0 Yes [id number] 10mg Take 1 Univers 10 mg 6-25 capsule by ity of capsule 00:00: mouth 3 (three) Medical times Branch daily as needed for Abdominal pain. loperamide 2020-0 Yes [id number] 2mg Take 1 U nivers 2 mg 6-25 capsule by ity of capsule 00:00: mouth [place] 00 every 4 Medical (four) Branch hours as needed for Diarrhea. dicyclomine 2020-0 Yes [id number] 10mg Take 1 Univers 10 mg 6-25 capsule by ity of capsule 00:00: mouth 3 00 (three) Medical times Branch daily as needed for Abdominal pain. loperamide 2020-0 Yes [id number] 2mg Take 1 U nivers 2 mg 6-25 capsule by ity of capsule 00:00: mouth [place] 00 every 4 Medical (four) Branch hours as needed for Diarrhea. dicyclomine 2020-0 Yes [id number] 10mg Take 1 Univers 10 mg 6-25 capsule by ity of capsule 00:00: mouth (three) Medical times Branch daily as needed for Abdominal pain. loperamide 2020-0 Yes [id number] 2mg Take 1 U nivers 2 mg 6-25 capsule by ity of capsule 00:00: mouth [place] 00 every 4 Medical (four) Branch hours as needed for Diarrhea. dicyclomine 2020-0 Yes [id number] 10mg Take 1 Univers 10 mg 6-25 capsule by ity of capsule 00:00: mouth (three) Medical times Branch daily as needed for Abdominal pain. loperamide 2020-0 Yes [id number] 2mg Take 1 U nivers 2 mg 6-25 capsule by ity of capsule 00:00: mouth [place] 00 every 4 Medical (four) Branch hours as needed for Diarrhea. dicyclomine 2020-0 Yes [id number] 10mg Take 1 Univers 10 mg 6-25 capsule by ity of capsule 00:00: mouth 3 (three) Medical times Branch daily as needed for Abdominal pain. loperamide 2020-0 Yes [id number] 2mg Take 1 U nivers 2 mg 6-25 capsule by ity of capsule 00:00: mouth [place] 00 every 4 Medical (four) Branch hours as needed for Diarrhea. dicyclomine 2020-0 Yes [id number] 10mg Take 1 Univers 10 mg 6-25 capsule by ity of capsule 00:00: mouth 3 (three) Medical times Branch daily as needed for Abdominal pain. loperamide 2020-0 Yes [id number] 2mg Take 1 U nivers 2 mg 6-25 capsule by ity of capsule 00:00: mouth [place] 00 every 4 Medical (four) Branch hours as needed for Diarrhea. dicyclomine 2020-0 Yes [id number] 10mg Take 1 Univers 10 mg 6-25 capsule by ity of capsule 00:00: mouth 3 00 (three) Medical times Branch daily as needed for Abdominal pain. loperamide 2020-0 Yes [id number] 2mg Take 1 U nivers 2 mg 6-25 capsule by ity of capsule 00:00: mouth [place] 00 every 4 Medical (four) Branch hours as needed for Diarrhea. dicyclomine 2020-0 Yes [id number] 10mg Take 1 Univers 10 mg 6-25 capsule by ity of capsule 00:00: mouth (three) Medical times Branch daily as needed for Abdominal pain. loperamide 2020-0 Yes [id number] 2mg Take 1 U nivers 2 mg 6-25 capsule by ity of capsule 00:00: mouth [place] 00 every 4 Medical (four) Branch hours as needed for Diarrhea. dicyclomine 2020-0 Yes [id number] 10mg Take 1 Univers 10 mg 6-25 capsule by ity of capsule 00:00: mouth (three) Medical times Branch daily as needed for Abdominal pain. loperamide 2020-0 Yes [id number] 2mg Take 1 U nivers 2 mg 6-25 capsule by ity of capsule 00:00: mouth [place] 00 every 4 Medical (four) Branch hours as needed for Diarrhea. dicyclomine 2020-0 Yes [id number] 10mg Take 1 Univers 10 mg 6-25 capsule by ity of capsule 00:00: mouth 3 (three) Medical times Branch daily as needed for Abdominal pain. loperamide 2020-0 Yes [id number] 2mg Take 1 U nivers 2 mg 6-25 capsule by ity of capsule 00:00: mouth [place] 00 every 4 Medical (four) Branch hours as needed for Diarrhea. dicyclomine 2020-0 Yes [id number] 10mg Take 1 Univers 10 mg 6-25 capsule by ity of capsule 00:00: mouth 3 00 (three) Medical times Branch daily as needed for Abdominal pain. loperamide 2021-0 Yes [id number] 2mg Take 1 U nivers 2 mg 6-25 capsule by ity of capsule 00:00: mouth 00 every 4 Medical (four) Branch hours as needed for Diarrhea. dicyclomine 0 Yes [id number] 10mg Take 1 Univers 10 mg 6-25 capsule by ity of capsule 00:00: mouth 3 00 (three) Medical times Branch daily as needed for Abdominal pain. loperamide Yes [id number] 2mg Take 1 U nivers 2 mg 6-25 capsule by ity of capsule 00:00: mouth 00 every 4 Medical (four) Branch hours as needed for Diarrhea. dicyclomine Yes [id number] 10mg Take 1 Univers 10 mg 6-25 capsule by ity of capsule 00:00: mouth 3 00 (three) Medical times Branch daily as needed for Abdominal pain. loperamide Yes [id number] 2mg Take 1 U nivers 2 mg 6-25 capsule by ity of capsule 00:00: mouth 00 every 4 Medical (four) Branch hours as needed for Diarrhea. Toradol Toradol No 60mg Common (Ketorolac) (Ketorolac) 3-17 S pirit 00:00: - [facility] Toradol Toradol 0 No 60mg Common (Ketorolac) (Ketorolac) 3-17 S pirit 00:00: - [facility] Toradol Toradol 0 No 60mg Common (Ketorolac) (Ketorolac) 3-17 S pirit 00:00: - [facility] Toradol Toradol 0 No 60mg Common (Ketorolac) (Ketorolac) 3-17 S pirit 00:00: - [facility] Toradol Toradol 0 No 60mg Common (Ketorolac) (Ketorolac) 3-17 S pirit 00:00: - [facility] Toradol Toradol 0 No 60mg Common (Ketorolac) (Ketorolac) 3-17 S pirit 00:00: - [facility] Desloratadi Desloratadi No 1{table QD Desloratad ne 5 MG [...] 3-17 S pirit 00:00: - [facility] 00 [facility] Desloratadi Desloratadi 2020-0 No 1{table QD Desloratad ne 5 MG ne 5 MG 3-17 t} ine 5 MG 00:00: 00 Toradol Toradol 2020-0 No 60mg Common (Ketorolac) (Ketorolac) 3-17 S pirit 00:00: - [facility] Desloratadi Desloratadi 2020-0 No 1{table QD Desloratad ne 5 MG ne 5 MG 3-17 t} ine 5 MG 00:00: 00 Toradol Toradol 2020-0 No 60mg Common (Ketorolac) (Ketorolac) 3-17 S pirit 00:00: - [facility] Desloratadi Desloratadi 2020-0 No 1{table QD Desloratad ne 5 MG ne 5 MG 3-17 t} ine 5 MG 00:00: 00 Toradol Toradol 2020-0 No 60mg Common (Ketorolac) (Ketorolac) 3-17 S pirit 00:00: - [facility] 00 [facility] Toradol Toradol 2020-0 No 60mg Common (Ketorolac) (Ketorolac) 3-17 S pirit 00:00: - [facility] 00 [facility] Toradol Toradol 2020-0 No 60mg Common (Ketorolac) (Ketorolac) 3-17 S pirit 00:00: - [facility] Toradol Toradol 2020-0 No 60mg Common (Ketorolac) (Ketorolac) 3-17 S pirit 00:00: - [facility] 00 [facility] Toradol Toradol 2020-0 No 60mg Common (Ketorolac) (Ketorolac) 3-17 S pirit 00:00: - [facility] 00 [facility] Toradol Toradol 1-0 No 60mg Common (Ketorolac) (Ketorolac) 3-17 S pirit 00:00: - [facility] 00 [facility] Toradol Toradol 2020-0 No 60mg Common (Ketorolac) (Ketorolac) 3-17 S pirit 00:00: - [facility] 00 [facility] tiZANidine 1-0 Yes TAKE 1 Unive rs [...] TAKE 1 Unive rs 2 mg tablet 1- TABLET BY ity of 00:00: MOUTH TWICE Medical DAILY Branch DIRECTED tiZANidine Yes TAKE 1 Unive rs 2 mg tablet -07 TABLET BY ity of 00:00: MOUTH TWICE Medical DAILY Branch DIRECTED Levothyroxi Levothyroxi Yes Terry 1 tablet Common ne Sodium ne Sodium 4-07 [place] in the Sp coretta 00:00: morning on - [facility] [address] [facility] Meloxicam Meloxicam No Meloxicam 15 MG 15 [...] 1 tablet Common ne Sodium ne Sodium [place] in [facility] Sp coretta morning on - [facility] an empty [facility] daily Gabapentin Gabapentin Yes Terry TK 2 Co mmon [place] CAPSULES Spirit PO QID PRN - [facility] Ondansetron Ondansetron Yes Terry TK 1 T PO Common HCl HCl [place] QD FOR 10 [facility] Dulox[facility] Duloxetine Yes Terry not Co mmon HCl HCl [facility] defined [facility] Breo Breo Yes Terry 1 puff Common Ellipta Ellipta [facility] Topiramate Topiramate Yes Terry 1 tablet Common Fleming [facility] Albuterol Albuterol Yes Terry 3 ml as C ommon Sulfate Sulfate [facility] needed [facility] Trazodone Trazodone Yes Terry TK 1 TO 2 Common HCl HCl [place] TS PO HS Spirit PRF - [facility] INSOMNIA [facility] Tizanidine Tizanidine Yes Terry 1 tablet Common HCl HCl [place] as needed [facility] Norvasc Norvasc Yes Terry 1 tablet Comm on [facility] Spirit [facility] Estradiol Estradiol Yes Terry as Comm on Fleming directed [facility] Sucralfate Sucralfate Yes Terry 1 tablet Common [place] on an Spirit empty - [facility] stomach [facility] Nystatin Nystatin Yes Terry 1 Common Fleming applicatio [facility] Albuterol Albuterol Yes Terry INL 2 PFS Common Sulfate HFA Sulfate HFA [facility] PO Q 6 H Spirit PRN [facility] Meloxicam Meloxicam Yes Terry TK 1 T PO Common Fleming QD [facility] Loratadine Loratadine Yes Terry TK 1 T PO Common Fleming QD FOR Spirit ALLERGIES [facility] Simvastatin Simvastatin Yes Terry 1 tablet Common [facility] in the [facility] evening [facility] Pantoprazol Pantoprazol Yes Terry 1 tablet Common e Sodium e Sodium Fleming [facility] Lorazepam Lorazepam Yes Terry 1 tablet Common [place] at bedtime Spirit as needed [facility] Metformin Metformin Yes Terry TAKE 1 Co mmon HCl HCl [place] TABLET BY [facility] MOUTH - [facility] TWICE St DAILY WITH [facility] Divalproex Divalproex Yes Terry 1 tablet Common Sodium ER Sodium ER [facility] Spir [facility] Quetiapine Quetiapine Yes Terry 1 tablet Common Fumarate Fumarate [facility] at bedtime [facility] Tramadol Tramadol Yes Terry 1 tablet Co mmon HCl HCl [place] as needed [facility] Botox Botox Yes Terry as Common [facility] directed [facility] Januvia Januvia Yes Terry 1 tablet Comm on Fleming [facility] Divalproex Divalproex Yes Terry 3 tabs Common Sodium ER Sodium ER [facility] Spir [facility] Simvastatin Simvastatin Yes Terry TAKE 1 Common [place] TABLET BY Spirit MOUTH - [facility] EVERY DAY St IN THE [facility] Losartan Losartan Yes Terry 1 tablet Co mmon Potassium Potassium [facility] Spir [facility] Simvastatin Simvastatin No 1{table QD Simvastati 20 [...] 300 MG Nystatin Nystatin No 1{appli Nystatin [id number] cation} [id number] UNIT/GM UNIT/GM UNIT/GM LORazepam LORazepam No 1{table [...] Omeprazole 40 MG 40 MG 40 MG Loratadine Loratadine 2021- No 1{table QD [...] Terry 1 tablet Common Chloride Chloride 10-31 [facility] Spiri t 00:00 - [facility] :00 [facility] Immunizations Ordered Immunization Filled Immunization Date Status Commen ts Source Name Name Flucelvax - Flucelvax - 2022-05-03 Completed Common Spiri t multidose vial multidose vial 14:53:00 - [facility] Flucelvax - Flucelvax - 2022-05-03 Completed Common Spiri t multidose vial multidose vial 14:53:00 - [facility] Flucelvax - Flucelvax - 2022-05-03 Completed Common Spiri t multidose vial multidose vial 14:53:00 - [facility] [facility] - Flucelvax - 2022-05-03 Com[facility] multidose vial 14:53:00 - [facility] Flucelvax - Flucelvax - 2021-05-18 Completed [facility] multidose vial 16:08:00 - [facility] Flucelvax - Flucelvax - 2021-05-18 Completed [facility] multidose vial 16:08:00 - [facility] Flucelvax - Flucelvax - 2021-05-18 Completed [facility] multidose vial 16:08:00 - [facility] Flucelvax - Flucelvax - 2021-05-18 Completed [facility] multidose vial 16:08:00 - [facility] Flucelvax - Flucelvax - 2021-05-18 Completed [facility] multidose vial 16:08:00 - [facility] Flucelvax - Flucelvax - 2021-05-18 Completed [facility] multidose vial 16:08:00 - [facility] Flucelvax - Flucelvax - 2021-05-18 Completed [facility] multidose vial 16:08:00 - [facility] Flucelvax - Flucelvax - 2021-05-18 Completed [facility] multidose vial 16:08:00 - [facility] Flucelvax - Flucelvax - 2021-05-18 Completed [facility] multidose vial 16:08:00 - [facility] Flucelvax - Flucelvax - 2021-05-18 Completed [facility] multidose vial 16:08:00 - [facility] Flucelvax - Flucelvax - 2021-05-18 Completed [facility] multidose vial 16:08:00 - [facility] Flucelvax - Flucelvax - 2021-05-18 Completed [facility] multidose vial 16:08:00 - [facility] Flucelvax - Flucelvax - 2021-05-18 Completed [facility] multidose vial 16:08:00 - [facility] Flucelvax - Flucelvax - 2021-05-18 Completed [facility] multidose vial 16:08:00 - [facility] Flucelvax - Flucelvax - 2021-05-18 Completed [facility] multidose vial 16:08:00 - [facility] Flucelvax - Flucelvax - 2021-05-18 Completed [facility] multidose vial 16:08:00 - [facility] Flucelvax - Flucelvax - 2021-05-18 Completed [facility] multidose vial 16:08:00 - [facility] Flucelvax - Flucelvax - 2021-05-18 Completed [facility] multidose vial 16:08:00 - [facility] Flucelvax - Flucelvax - 2021-05-18 Completed [facility] multidose vial 16:08:00 - [facility] Flucelvax - Flucelvax - 2021-05-18 Completed [facility] multidose vial 16:08:00 - [facility] Flucelvax - Flucelvax - 2021-05-18 Completed [facility] multidose vial 16:08:00 - [facility] Flucelvax - Flucelvax - 2021-05-18 Completed [facility] multidose vial 16:08:00 - [facility] Flucelvax - Flucelvax - 2021-05-18 Completed [facility] multidose vial 16:08:00 - [facility] Flucelvax - Flucelvax - 2021-05-18 Completed [facility] multidose vial 16:08:00 - [facility] Flucelvax - Flucelvax - 2021-05-18 Completed [facility] multidose vial 16:08:00 - [facility] Flucelvax - Flucelvax - 2021-05-18 Completed [facility] multidose vial 16:08:00 - [facility] Flucelvax - Flucelvax - 2021-05-18 Completed [facility] multidose vial 16:08:00 - [facility] Flucelvax - Flucelvax - 2021-05-18 Completed [facility] multidose vial 16:08:00 - [facility] Flucelvax - Flucelvax - 2021-05-18 Completed [facility] multidose vial 16:08:00 - [facility] Flucelvax - Flucelvax - 2021-05-18 Completed [facility] multidose vial 16:08:00 - [facility] Flucelvax - Flucelvax - 2021-05-18 Completed [facility] multidose vial 16:08:00 - [facility] COVID-19 Vaccine COVID-19 Vaccine 2020-10-25 [facility] (Dianne) 13:48:00 - [facility] COVID-19 Vaccine COVID-19 Vaccine 2020-10-25 Completed [facility] (Dianne) 13:48:00 [facility] COVID-19 Vaccine COVID-19 Vaccine 2020-10-25 Completed [facility] (Dianne) 13:48:00 [facility] COVID-19 Vaccine COVID-19 Vaccine 2020-10-25 Completed [facility] (Dianne) 13:48:00 [facility] COVID-19 Vaccine COVID-19 Vaccine 2020-10-25 Completed [facility] (Dianne) 13:48:00 [facility] COVID-19 Vaccine COVID-19 Vaccine 2020-10-25 Completed [facility] (Dianne) 13:48:00 [facility] COVID-19 Vaccine COVID-19 Vaccine 2020-10-25 Completed [facility] (Dianne) 13:48:00 [facility] COVID-19 Vaccine COVID-19 Vaccine 2020-10-25 Completed [facility] (Dianne) 13:48:00 [facility] COVID-19 Vaccine COVID-19 Vaccine 2020-10-25 Completed [facility] (Dianne) 13:48:00 - [facility] COVID-19 Vaccine COVID-19 Vaccine 2020-10-25 Completed [facility] (Dianne) 13:48:00 - [facility] COVID-19 Vaccine COVID-19 Vaccine 2020-10-25 Completed [facility] (Dianne) 13:48:00 - [facility] COVID-19 Vaccine COVID-19 Vaccine 2020-10-25 Completed [facility] (Dianne) 13:48:00 - [facility] COVID-19 Vaccine COVID-19 Vaccine 2020-10-25 Completed [facility] (Dianne) 13:48:00 - [facility] COVID-19 Vaccine COVID-19 Vaccine 2020-10-25 Completed [facility] (Dianne) 13:48:00 - [facility] COVID-19 Vaccine COVID-19 Vaccine 2020-10-25 Completed [facility] (Dianne) 13:48:00 - [facility] COVID-19 Vaccine COVID-19 Vaccine 2020-10-25 Completed [facility] (Dianne) 13:48:00 - [facility] COVID-19 Vaccine COVID-19 Vaccine 2020-10-25 Completed [facility] (Dianne) 13:48:00 - [facility] COVID-19 Vaccine COVID-19 Vaccine 2020-10-25 Completed [facility] (Dianne) 13:48:00 [facility] COVID-19 Vaccine COVID-19 Vaccine 2020-10-25 Completed [facility] (Dianne) 13:48:00 - [facility] COVID-19 Vaccine COVID-19 Vaccine 2020-10-25 Completed [facility] (Dianne) 13:48:00 - [facility] COVID-19 Vaccine COVID-19 Vaccine 2020-10-25 Completed [facility] (Dianne) 13:48:00 - [facility] COVID-19 Vaccine COVID-19 Vaccine 2020-10-25 Completed [facility] (Dianne) 13:48:00 - [facility] COVID-19 Vaccine COVID-19 Vaccine 2020-10-25 Completed [facility] (Dianne) 13:48:00 [facility] COVID-19 Vaccine COVID-19 Vaccine 2020-10-25 Completed [facility] (Dianne) 13:48:00 - [facility] COVID-19 Vaccine COVID-19 Vaccine 2020-10-25 Completed [facility]) (Dianne) 13:48:00 [facility] COVID-19 Vaccine COVID-19 Vaccine 2020-10-25 Completed [facility] ([facility]ne) (Dianne) 13:48:00 [facility] COVID-19 Vaccine COVID-19 Vaccine 2020-10-25 Completed [facility]) (Dianne) 13:48:00 [facility] COVID-19 Vaccine COVID-19 Vaccine 2020-10-25 Completed [facility] ([facility]) (Dianne) 13:48:00 [facility] COVID-19 Vaccine COVID-19 Vaccine 2020-10-25 Completed [facility] ([facility]ian[facility]) (Dianne) 13:48:00 [facility] COVID-19 Vaccine COVID-19 Vaccine 2020-10-25 Completed [facility] ([facility]ianne) (Dianne) 13:48:00 [facility] COVID-19 Vaccine COVID-19 Vaccine 2020-10-25 Completed [facility] (Dianne) 13:48:00 [facility] Toradol (Ketorolac) Toradol (Ketorolac) 2020-10-20 Completed [facility] 12:10:00 [facility] Toradol (Ketorolac) Toradol (Ketorolac) 2020-10-20 Completed [facility] 12:10:00 [facility] Pneumovax (PPSV23) Pneumovax (PPSV23) 2019-06-09 Completed [facility] 09:23:00 [facility] Pneumovax (PPSV23) Pneumovax (PPSV23) 2019-06-09 Completed [facility] 09:23:00 [facility] Pneumovax (PPSV23) Pneumovax (PPSV23) 2019-06-09 Completed [facility] 09:23:00 - [facility] Pneumovax (PPSV23) Pneumovax (PPSV23) 2019-06-09 Completed [facility] 09:23:00 [facility] Pneumovax (PPSV23) Pneumovax (PPSV23) 2019-06-09 Completed [facility] 09:23:00 [facility] Pneumovax (PPSV23) Pneumovax (PPSV23) 2019-06-09 Completed [facility] 09:23:00 - [facility] Pneumovax (PPSV23) Pneumovax (PPSV23) 2019-06-09 Completed [facility] 09:23:00 - [facility] Pneumovax (PPSV23) Pneumovax (PPSV23) 2019-06-09 Completed [facility] 09:23:00 [facility] Pneumovax (PPSV23) Pneumovax (PPSV23) 2019-06-09 Completed [facility] 09:23:00 [facility] Pneumovax (PPSV23) Pneumovax (PPSV23) 2019-06-09 Completed [facility] 09:23:00 - [facility] Pneumovax (PPSV23) Pneumovax (PPSV23) 2019-06-09 Completed [facility] 09:23:00 [facility] Pneumovax (PPSV23) Pneumovax (PPSV23) 2019-06-09 Completed [facility] 09:23:00 [facility] Pneumovax (PPSV23) Pneumovax (PPSV23) 2019-06-09 Completed [facility] 09:23:00 [facility] Pneumovax (PPSV23) Pneumovax (PPSV23) 2019-06-09 Completed [facility] 09:23:00 [facility] Pneumovax (PPSV23) Pneumovax (PPSV23) 2019-06-09 Completed [facility] 09:23:00 [facility] Pneumovax (PPSV23) Pneumovax (PPSV23) 2019-06-09 Completed [facility] 09:23:00 [facility] Pneumovax (PPSV23) Pneumovax (PPSV23) 2019-06-09 Completed [facility] 09:23:00 [facility] Pneumovax (PPSV23) Pneumovax (PPSV23) 2019-06-09 Completed [facility] 09:23:00 [facility] Pneumovax (PPSV23) Pneumovax (PPSV23) 2019-06-09 Completed [facility] 09:23:00 [facility] Pneumovax (PPSV23) Pneumovax (PPSV23) 2019-06-09 Completed [facility] 09:23:00 [facility] Pneumovax (PPSV23) Pneumovax (PPSV23) 2019-06-09 Completed [facility] 09:23:00 [facility] Pneumovax (PPSV23) Pneumovax (PPSV23) 2019-06-09 Completed [facility] 09:23:00 [facility] Pneumovax (PPSV23) Pneumovax (PPSV23) 2019-06-09 Completed [facility] 09:23:00 [facility] Pneumovax (PPSV23) Pneumovax (PPSV23) 2019-06-09 Completed [facility] 09:23:00 [facility] Pneumovax (PPSV23) Pneumovax (PPSV23) 2019-06-09 Completed [facility] 09:23:00 [facility] Pneumovax (PPSV23) Pneumovax (PPSV23) 2019-06-09 Completed [facility] 09:23:00 [facility] Pneumovax (PPSV23) Pneumovax (PPSV23) 2019-06-09 Completed [facility] 09:23:00 [facility] Pneumovax (PPSV23) Pneumovax (PPSV23) 2019-06-09 Completed [facility] 09:23:00 [facility] Pneumovax (PPSV23) Pneumovax (PPSV23) 2019-06-09 Completed [facility] 09:23:00 - [facility] Pneumovax (PPSV23) Pneumovax (PPSV23) 2019-06-09 Completed [facility] 09:23:00 - [facility] Pneumovax (PPSV23) Pneumovax (PPSV23) 2019-06-09 Completed [facility] 09:23:00 - [facility] Pneumovax Pneumovax 2019-06-09 Completed [facility] 00:00:00 - [facility] Flucelvax - single Flucelvax - single 2019-05-30 Completed [facility] dose syringe dose syringe 11:58:00 - [facility] Flucelvax - single Flucelvax - single 2019-05-30 Completed [facility] dose syringe dose syringe 11:58:00 - [facility] Flucelvax - single Flucelvax - single 2019-05-30 Completed [facility] dose syringe dose syringe 11:58:00 - [facility] Flucelvax - single Flucelvax - single 2019-05-30 Completed [facility] dose syringe dose syringe 11:58:00 - [facility] Flucelvax - single Flucelvax - single 2019-05-30 Completed [facility] dose syringe dose syringe 11:58:00 - [facility] Flucelvax - single Flucelvax - single 2019-05-30 Completed [facility] dose syringe dose syringe 11:58:00 - [facility] Flucelvax - single Flucelvax - single 2019-05-30 Completed [facility] dose syringe dose syringe 11:58:00 - [facility] Flucelvax - single Flucelvax - single 2019-05-30 Completed [facility] dose syringe dose syringe 11:58:00 - [facility] Flucelvax - single Flucelvax - single 2019-05-30 Completed [facility] dose syringe dose syringe 11:58:00 - [facility] Flucelvax - single Flucelvax - single 2019-05-30 Completed [facility] dose syringe dose syringe 11:58:00 - [facility] Flucelvax - single Flucelvax - single 2019-05-30 Completed [facility] dose syringe dose syringe 11:58:00 - [facility] Flucelvax - single Flucelvax - single 2019-05-30 Completed [facility] dose syringe dose syringe 11:58:00 - [facility] Flucelvax - single Flucelvax - single 2019-05-30 Completed [facility] dose syringe dose syringe 11:58:00 - [facility] Flucelvax - single Flucelvax - single 2019-05-30 Completed [facility] dose syringe dose syringe 11:58:00 - [facility] Flucelvax - single Flucelvax - single 2019-05-30 Completed [facility] dose syringe dose syringe 11:58:00 - [facility] Flucelvax - single Flucelvax - single 2019-05-30 Completed [facility] dose syringe dose syringe 11:58:00 - [facility] Flucelvax - single Flucelvax - single 2019-05-30 Completed [facility] dose syringe dose syringe 11:58:00 - [facility] Flucelvax - single Flucelvax - single 2019-05-30 Completed [facility] dose syringe dose syringe 11:58:00 - [facility] Flucelvax - single Flucelvax - single 2019-05-30 Completed [facility] dose syringe dose syringe 11:58:00 - [facility] Flucelvax - single Flucelvax - single 2019-05-30 Completed [facility] dose syringe dose syringe 11:58:00 - [facility] Flucelvax - single Flucelvax - single 2019-05-30 Completed [facility] dose syringe dose syringe 11:58:00 - [facility] Flucelvax - single Flucelvax - single 2019-05-30 Completed [facility] dose syringe dose syringe 11:58:00 - [facility] Flucelvax - single Flucelvax - single 2019-05-30 Completed [facility] dose syringe dose syringe 11:58:00 - [facility] Flucelvax - single Flucelvax - single 2019-05-30 Completed [facility] dose syringe dose syringe 11:58:00 - [facility] Flucelvax - single Flucelvax - single 2019-05-30 Completed [facility] dose syringe dose syringe 11:58:00 - [facility] Flucelvax - single Flucelvax - single 2019-05-30 Completed [facility] dose syringe dose syringe 11:58:00 - [facility] Flucelvax - single Flucelvax - single 2019-05-30 Completed [facility] dose syringe dose syringe 11:58:00 - [facility] Flucelvax - single Flucelvax - single 2019-05-30 Completed [facility] dose syringe dose syringe 11:58:00 - [facility] Flucelvax - single Flucelvax - single 2019-05-30 Completed [facility] dose syringe dose syringe 11:58:00 - [facility] Flucelvax - single Flucelvax - single 2019-05-30 Completed [facility] dose syringe dose syringe 11:58:00 - [facility] Flucelvax - single Flucelvax - single 2019-05-30 Completed [facility] dose syringe dose syringe 11:58:00 - [facility] Flucelvax - single Flucelvax - single 2019-05-30 Completed [facility] dose syringe dose syringe 00:00:00 - [facility] Prevnar 13 Prevnar 2018-05-09 Completed [facility] -Pneumonia Vaccine -Pneumonia Vaccine 09:29:00 - [facility] Prevnar 13 Prevnar 2018-05-09 Completed [facility] -Pneumonia Vaccine -Pneumonia Vaccine 09:29:00 - [facility] Prevnar 13 Prevnar 13 2018-05-09 Completed [facility] -Pneumonia Vaccine -Pneumonia Vaccine 09:29:00 - [facility] Prevnar 13 Prevnar 13 2018-05-09 Completed [facility] -Pneumonia Vaccine -Pneumonia Vaccine 09:29:00 - [facility] Prevnar 13 Prevnar 13 2018-05-09 Completed [facility] -Pneumonia Vaccine -Pneumonia Vaccine 09:29:00 - [facility] Prevnar 13 Prevnar 13 2018-05-09 Completed [facility] -Pneumonia Vaccine -Pneumonia Vaccine 09:29:00 - [facility] Prevnar 13 Prevnar 13 2018-05-09 Completed [facility] -Pneumonia Vaccine -Pneumonia Vaccine 09:29:00 - [facility] Prevnar 13 Prevnar 13 2018-05-09 Completed [facility] -Pneumonia Vaccine -Pneumonia Vaccine 09:29:00 - [facility] Prevnar 13 Prevnar 13 2018-05-09 Completed [facility] -Pneumonia Vaccine -Pneumonia Vaccine 09:29:00 - [facility] Prevnar 13 Prevnar 13 2018-05-09 Completed [facility] -Pneumonia Vaccine -Pneumonia Vaccine 09:29:00 - [facility] Prevnar 13 Prevnar 13 2018-05-09 Completed [facility] -Pneumonia Vaccine -Pneumonia Vaccine 09:29:00 - [facility] Prevnar 13 Prevnar 13 2018-05-09 Completed [facility] -Pneumonia Vaccine -Pneumonia Vaccine 09:29:00 - [facility] Prevnar 13 Prevnar 13 2018-05-09 Completed [facility] -Pneumonia Vaccine -Pneumonia Vaccine 09:29:00 - [facility] Prevnar 13 Prevnar 13 2018-05-09 Completed [facility] -Pneumonia Vaccine -Pneumonia Vaccine 09:29:00 - [facility] Prevnar 13 Prevnar 2018-05-09 Completed [facility] -Pneumonia Vaccine -Pneumonia Vaccine 09:29:00 - [facility] Prevnar 13 Prevnar 13 2018-05-09 Completed [facility] -Pneumonia Vaccine -Pneumonia Vaccine 09:29:00 - [facility] Prevnar 13 Prevnar 13 2018-05-09 Completed [facility] -Pneumonia Vaccine -Pneumonia Vaccine 09:29:00 - [facility] Prevnar 13 Prevnar 13 2018-05-09 Completed [facility] -Pneumonia Vaccine -Pneumonia Vaccine 09:29:00 - [facility] Prevnar 13 Prevnar 13 2018-05-09 Completed [facility] -Pneumonia Vaccine -Pneumonia Vaccine 09:29:00 - [facility] Prevnar 13 Prevnar 13 2018-05-09 Completed [facility] -Pneumonia Vaccine -Pneumonia Vaccine 09:29:00 - [facility] Prevnar 13 Prevnar 13 2018-05-09 Completed [facility] -Pneumonia Vaccine -Pneumonia Vaccine 09:29:00 - [facility] Prevnar 13 Prevnar 13 2018-05-09 Completed [facility] -Pneumonia Vaccine -Pneumonia Vaccine 09:29:00 - [facility] Prevnar 13 Prevnar 13 2018-05-09 Completed [facility] -Pneumonia Vaccine -Pneumonia Vaccine 09:29:00 - [facility] Prevnar 13 Prevnar 13 2018-05-09 Completed [facility] -Pneumonia Vaccine -Pneumonia Vaccine 09:29:00 - [facility] Prevnar 13 Prevnar 2018-05-09 Completed [facility] -Pneumonia Vaccine -Pneumonia Vaccine 09:29:00 - [facility] Prevnar 13 Prevnar 13 2018-05-09 Completed [facility] -Pneumonia Vaccine -Pneumonia Vaccine 09:29:00 - [facility] Prevnar 13 Prevnar 13 2018-05-09 Completed [facility] -Pneumonia Vaccine -Pneumonia Vaccine 09:29:00 - [facility] Prevnar 13 Prevnar 13 2018-05-09 Completed [facility] -Pneumonia Vaccine -Pneumonia Vaccine 09:29:00 - [facility] Prevnar 13 Prevnar 13 2018-05-09 Completed [facility] -Pneumonia Vaccine -Pneumonia Vaccine 09:29:00 - [facility] Prevnar 13 Prevnar 2018-05-09 Completed [facility] -Pneumonia Vaccine -Pneumonia Vaccine 09:29:00 - [facility] Prevnar 13 Prevnar 2018-05-09 Completed [facility] -Pneumonia Vaccine -Pneumonia Vaccine 09:29:00 - [facility] Prevnar 13 Prevnar 2018-05-09 Completed [facility] -Pneumonia Vaccine -Pneumonia Vaccine 00:00:00 - [facility] Vital Signs Vital Name Observation Time Observation Value Comments Source Body weight 2022-09-29 16:23:00 91.173 kg [facility] BMI 2022-09-29 16:23:00 32.44 kg/m2 [facility] Body weight 2022-08-24 17:19:00 91.173 kg [facility] BMI 2022-08-24 17:19:00 32.44 kg/m2 [facility] Systolic blood 2022-08-09 19:15:00 133 mm[Hg] [facility] of pressure [facility] Diastolic blood 2022-08-09 19:15:00 77 mm[Hg] Unive rsity of pressure [facility] Heart rate 2022-08-09 19:15:00 103 /min [facility] Body height 2022-08-09 19:14:00 167.6 cm [facility] Body weight 2022-08-09 19:14:00 91.4 kg [facility] BMI 2022-08-09 19:14:00 32.52 kg/m2 [facility] Oxygen saturation in 2022-08-09 19:14:00 100 /min [facility] Arterial blood by [facility] Pulse oximetry Branch Systolic blood 2022-06-06 20:31:00 139 mm[Hg] [facility] Diastolic blood 2022-06-06 20:31:00 103 mm[Hg] [facility] Heart rate 2022-06-06 20:31:00 98 /min [facility] [place] Body temperature 2022-06-06 20:31:00 36.67 Natalia [facility] Respiratory rate 2022-06-06 20:31:00 20 /min [facility] Body weight 2022-06-06 20:31:00 81.647 kg [facility] BMI 2022-06-06 20:31:00 28.19 kg/m2 [facility] Oxygen saturation in 2022-06-06 20:31:00 100 /min [facility] Arterial blood by [facility] Pulse oximetry Branch Systolic blood 2022-05-24 20:04:00 145 mm[Hg] [facility] Diastolic blood 2022-05-24 20:04:00 77 mm[Hg] [facility] Body height 2022-05-24 20:04:00 170.2 cm [facility] Body weight 2022-05-24 20:04:00 85.73 kg [facility] BMI 2022-05-24 20:04:00 29.60 kg/m2 [facility] height 2022-05-03 14:20:00 65.5 [in_i] [facility] weight 2022-05-03 14:20:00 189.6 [lb_av] [facility] temperature 2022-05-03 14:20:00 97.8 [degF] [facility] bmi 2022-05-03 14:20:00 31.07 kg/m2 [facility] oximetry 2022-05-03 14:20:00 100 % [facility] respiratory rate 2022-05-03 14:20:00 16 /min [facility] blood pressure 2022-05-03 14:20:00 134 mm[Hg] [facility] - systolic [facility] blood pressure 2022-05-03 14:20:00 82 mm[Hg] [facility] - diastolic [facility] Systolic blood 2022-03-25 00:54:00 164 mm[Hg] [facility] Diastolic blood 2022-03-25 00:54:00 83 mm[Hg] [facility]ive [facility] Heart rate 2022-03-25 00:54:00 95 /min [facility] Body temperature 2022-03-25 00:54:00 37 Natalia [facility] Oxygen saturation in 2022-03-25 00:54:00 97 /min [facility] Arterial blood by [facility] Pulse oximetry Branch Respiratory rate 2022-03-24 19:44:00 18 /min [facility] Body height 2022-03-24 18:05:00 170.2 cm [facility] Body weight 2022-03-24 18:05:00 84.823 kg [facility] BMI 2022-03-24 18:05:00 29.29 kg/m2 [facility] Systolic blood 2022-03-24 19:44:00 138 mm[Hg] [facility] Diastolic blood 2022-03-24 19:44:00 67 mm[Hg] [facility] Heart rate 2022-03-24 19:44:00 84 /min [facility] Body temperature 2022-03-24 19:44:00 36.33 [facility] 2022-03-24 19:44:00 18 /min [facility] [place] Oxygen saturation in 2022-03-24 19:44:00 97 /min University of Arterial blood by [facility] Pulse oximetry Branch Body height 2022-03-24 18:05:00 170.2 cm [facility] Body weight 2022-03-24 18:05:00 84.823 kg [facility] BMI 2022-03-24 18:05:00 29.29 kg/m2 Universi ty of [facility] Systolic blood 2022-03-23 13:59:00 130 mm[Hg] Univer sity of pressure [facility] Diastolic blood 2022-03-23 13:59:00 65 mm[Hg] Unive rsity of pressure [facility] Heart rate 2022-03-23 13:59:00 77 /min Universi ty of [facility] Body temperature 2022-03-23 13:59:00 35.39 Natalia [facility] ersity of [facility] Respiratory rate 2022-03-23 13:59:00 16 /min [facility] ersity of [facility] Body height 2022-03-23 13:59:00 170.2 cm [facility] Body weight 2022-03-23 13:59:00 85 kg [facility] BMI 2022-03-23 13:59:00 29.35 kg/m2 [facility] Oxygen saturation in 2022-03-23 13:59:00 99 /min [facility] of Arterial blood by [facility] Pulse oximetry Branch height 2022-03-08 14:40:00 65.5 [in_i] Common [facility] weight 2022-03-08 14:40:00 195.8 [lb_av] Common [facility] temperature 2022-03-08 14:40:00 97.8 [degF] Common [facility] bmi 2022-03-08 14:40:00 32.08 kg/m2 [facility] oximetry 2022-03-08 14:40:00 98 % [facility] respiratory rate 2022-03-08 14:40:00 16 /min Comm on [facility] blood pressure 2022-03-08 14:40:00 126 mm[Hg] Common [facility] - systolic [facility] blood pressure 2022-03-08 14:40:00 74 mm[Hg] Common [facility] - diastolic [facility] Body height 2022-02-21 19:05:00 170.2 cm [facility] Body weight 2022-02-21 19:05:00 86.183 kg [facility] BMI 2022-02-21 19:05:00 29.76 kg/m2 [facility] height 2021-12-07 14:40:00 65.5 [in_i] [facility] weight 2021-12-07 14:40:00 188.4 [lb_av] [facility] temperature 2021-12-07 14:40:00 97.5 [degF] [facility] bmi 2021-12-07 14:40:00 30.87 kg/m2 [facility] 2021-12-07 14:40:00 100 % [facility] respiratory rate 2021-12-07 14:40:00 16 /min Comm on [facility] blood pressure 2021-12-07 14:40:00 134 mm[Hg] Common [facility] - systolic [facility] blood pressure 2021-12-07 14:40:00 76 mm[Hg] Common [facility] - diastolic [facility] height 2021-11-08 11:20:00 65.5 [in_i] [facility] weight 2021-11-08 11:20:00 191.8 [lb_av] [facility] temperature 2021-11-08 11:20:00 98.1 [degF] Common S pirit [facility] bmi 2021-11-08 11:20:00 31.43 kg/m2 [facility] oximetry 2021-11-08 11:20:00 98 % Common S pirit [facility] respiratory rate 2021-11-08 11:20:00 16 /min Comm on Spirit - [facility] height 2021-11-03 14:00:00 65.5 [in_i] [facility] weight 2021-11-03 14:00:00 193 [lb_av] [facility] bmi 2021-11-03 14:00:00 31.62 kg/m2 [facility] height 2021-10-20 11:00:00 65.5 [in_i] [facility] weight 2021-10-20 11:00:00 193 [lb_av] [facility] temperature 2021-10-20 11:00:00 97.4 [degF] [facility] bmi 2021-10-20 11:00:00 31.62 kg/m2 [facility] blood pressure 2021-10-20 11:00:00 132 mm[Hg] Common [facility] - systolic [facility] blood pressure 2021-10-20 11:00:00 74 mm[Hg] Common [facility] - diastolic [facility] height 2021-08-31 08:30:00 65.5 [in_i] [facility] weight 2021-08-31 08:30:00 190 [lb_av] Common S pirit [facility] temperature 2021-08-31 08:30:00 97.3 [degF] [facility] bmi 2021-08-31 08:30:00 31.13 kg/m2 Common S [facility] blood pressure 2021-08-31 08:30:00 118 mm[Hg] Common [facility] - systolic [facility] blood pressure 2021-08-31 08:30:00 68 mm[Hg] Common [facility] - diastolic [facility] height 2021-08-23 13:00:00 65.5 [in_i] Common S pirit [facility] weight 2021-08-23 13:00:00 203.8 [lb_av] Common [facility] temperature 2021-08-23 13:00:00 97.7 [degF] Common [facility] bmi 2021-08-23 13:00:00 33.39 kg/m2 Common S [facility] oximetry 2021-08-23 13:00:00 99 % Common S [facility] respiratory rate 2021-08-23 13:00:00 16 /min Comm on [facility] blood pressure 2021-08-23 13:00:00 132 mm[Hg] Common [facility] - systolic [facility] blood pressure 2021-08-23 13:00:00 68 mm[Hg] Common [facility] - diastolic [facility] height 2021-07-06 15:00:00 65.5 [in_i] Common [facility] weight 2021-07-06 15:00:00 204.4 [lb_av] [facility] temperature 2021-07-06 15:00:00 97.5 [degF] Common S [facility] bmi 2021-07-06 15:00:00 33.49 kg/m2 Common S [facility] oximetry 2021-07-06 15:00:00 97 % Common S [facility] respiratory rate 2021-07-06 15:00:00 16 /min Comm on [facility] blood pressure 2021-07-06 15:00:00 138 mm[Hg] Common [facility] - systolic [facility] blood pressure 2021-07-06 15:00:00 80 mm[Hg] Common [facility] - diastolic [facility] height 2021-06-22 10:20:00 65.5 [in_i] Common [facility] weight 2021-06-22 10:20:00 167.6 [lb_av] Common [facility] temperature 2021-06-22 10:20:00 97.4 [degF] [facility] bmi 2021-06-22 10:20:00 27.46 kg/m2 Common S pirit [facility] oximetry 2021-06-22 10:20:00 98 % Common S [facility] respiratory rate 2021-06-22 10:20:00 16 /min Comm on [facility] blood pressure 2021-06-22 10:20:00 136 mm[Hg] Common [facility] - systolic [facility] blood pressure 2021-06-22 10:20:00 80 mm[Hg] Common [facility] - diastolic [facility] height 2021-06-02 15:20:00 65.5 [in_i] [facility] weight 2021-06-02 15:20:00 207.7 [lb_av] [facility] temperature 2021-06-02 15:20:00 98.7 [degF] [facility] bmi 2021-06-02 15:20:00 34.03 kg/m2 Common S [facility] oximetry 2021-06-02 15:20:00 97 % [facility] respiratory rate 2021-06-02 15:20:00 18 /min Comm on [facility] blood pressure 2021-06-02 15:20:00 134 mm[Hg] Common [facility] - systolic [facility] blood pressure 2021-06-02 15:20:00 72 mm[Hg] Common [facility] - diastolic [facility] height 2021-05-18 15:00:00 65.5 [in_i] [facility] weight 2021-05-18 15:00:00 212 [lb_av] [facility] temperature 2021-05-18 15:00:00 97 [degF] [facility] bmi 2021-05-18 15:00:00 34.74 kg/m2 Common S pirit [facility] oximetry 2021-05-18 15:00:00 98 % Common S pirit - [facility] respiratory rate 2021-05-18 15:00:00 20 /min Comm on Spirit - [facility] blood pressure 2021-05-18 15:00:00 130 mm[Hg] Common [facility] - systolic [facility] blood pressure 2021-05-18 15:00:00 82 mm[Hg] Common [facility] - diastolic [facility] Procedures Procedure Date / Time Performing Source [...] Branch CONSENT/REFUSAL FOR DIAGNOSIS AND 2022-06-06 Doctor [facility] of TREATMENT 20:21:29 Unassigned, No [facility] [...] (AUTOMATED) 2022-03-24 Prakash Waller rsity of 21:06:00 [facility] POCT GLUCOSE (AUTOMATED) 2022-03-24 Prakash Waller [facility] of 21:06:00 [facility] COLONOSCOPY (ENDO) 2022-03-24 Prakash Waller [place] of 18:38:21 [facility] COLONOSCOPY (ENDO) 2022-03-24 Prakash Waller [place] of 18:38:21 [facility] COLONOSCOPY 2022-03-24 Earnest Nunez [place] of 18:31:00 [facility] POCT GLUCOSE (AUTOMATED) 2022-03-24 Prakash Waller [facility] of 13:30:00 [facility] POCT GLUCOSE (AUTOMATED) 2022-03-24 [facility] 13:30:00 [facility] POCT GLUCOSE (AUTOMATED) 2022-03-24 Prakash Waller [facility] rsity of 13:30:00 [facility] CBC WITHOUT DIFF 2022-03-24 Jovanna [facility] of 10:55:00 [facility] CBC WITHOUT DIFF 2022-03-24 [facility] of 10:55:00 [facility] CBC WITHOUT DIFF 2022-03-24 Olden, [facility] of 10:55:00 [facility] MAGNESIUM 2022-03-24 Rainer [facility] of 09:28:00 [facility] BASIC METABOLIC PANEL (NA, K, CL, 2022-03-24 [facility] of CO2, GLUCOSE, BUN, CREATININE, CA) 09:28:00 [facility] MAGNESIUM 2022-03-24 [facility] 09:28:00 [facility] BASIC METABOLIC PANEL (NA, K, CL, 2022-03-24 Olden, [facility] of CO2, GLUCOSE, BUN, CREATININE, CA) 09:28:00 [facility] MAGNESIUM 2022-03-24 Rainer [facility] of 09:28:00 [facility] BASIC METABOLIC PANEL (NA, K, CL, 2022-03-24 Olden, [facility] of CO2, GLUCOSE, BUN, CREATININE, CA) 09:28:00 [facility] POCT GLUCOSE (AUTOMATED) 2022-03-24 Prakash Waller rsity of 04:04:00 [facility] POCT GLUCOSE (AUTOMATED) 2022-03-24 Prakash Waller [facility] of 04:04:00 [facility] POCT GLUCOSE (AUTOMATED) 2022-03-24 Prakash Waller Unive rsity of 04:04:00 [facility] POCT GLUCOSE (AUTOMATED) 2022-03-24 Christin, Prakash Lebron Unive rsity of 01:54:00 [facility] POCT GLUCOSE (AUTOMATED) 2022-03-24 Christin, Prakash Lebron Unive rsity of 01:54:00 [facility] POCT GLUCOSE (AUTOMATED) 2022-03-24 Christin, Prakash Lebron Unive rsity of 01:54:00 [facility] POCT GLUCOSE (AUTOMATED) 2022-03-23 Prakash Waller Unive rsity of 22:06:00 [facility] POCT GLUCOSE (AUTOMATED) 2022-03-23 Christin, Prakash Lebron Unive rsity of 22:06:00 [facility] POCT GLUCOSE (AUTOMATED) 2022-03-23 Prakash Waller Unive rsity of 22:06:00 [facility] SURGICAL PATHOLOGY EXAM 2022-03-23 Gou, Earnest Henning Univer sity of 14:36:00 [facility] SURGICAL PATHOLOGY EXAM 2022-03-23 Gou, Earnest Shauns Univer sity of 14:36:00 [facility] SURGICAL PATHOLOGY EXAM 2022-03-23 Gou, Earnest Dennissons Univer sity of 14:36:00 [facility] ESOPHAGOGASTRODUODENOSCOPY 2022-03-23 Gou, Earnest Henning Uni versity of 14:09:00 [facility] ESOPHAGOGASTRODUODENOSCOPY 2022-03-23 Gou, Earnest Henning Uni versity of 14:09:00 [facility] EGD (ENDO) 2022-03-23 Prakash Waller of 13:02:56 [facility] EGD (ENDO) 2022-03-23 Prakash Waller [place] of 13:02:56 [facility] EGD (ENDO) 2022-03-23 Prakash Waller of 13:02:56 [facility] POCT GLUCOSE (AUTOMATED) 2022-03-23 Prakash Waller rsity of 12:56:00 [facility] POCT GLUCOSE (AUTOMATED) 2022-03-23 Prakash Waller rsity of 12:56:00 [facility] POCT GLUCOSE (AUTOMATED) 2022-03-23 Prakash Waller rsity of 12:56:00 [facility] FERRITIN SERUM 2022-03-23 Rainer [facility] of 10:21:00 [facility] BASIC METABOLIC PANEL (NA, K, CL, 2022-03-23 [facility] CO2, GLUCOSE, BUN, CREATININE, CA) 10:21:00 [facility] CBC WITH DIFF 2022-03-23 [facility] of 10:21:00 [facility] ACTIVATED PARTIAL THRMPLAS CASSIE 2022-03-23 Shadexter, Courtney [facility] [employer] of 10:21:00 [facility] FIBRINOGEN 2022-03-23 [facility], [facility] of 10:21:00 [facility] FERRITIN SERUM 2022-03-23 Rainer [facility] of 10:21:00 [facility] BASIC METABOLIC PANEL (NA, K, CL, 2022-03-23 [facility] of CO2, GLUCOSE, BUN, CREATININE, CA) 10:21:00 [facility] CBC WITH DIFF 2022-03-23 [facility] of 10:21:00 [facility] ACTIVATED PARTIAL THRMPLAS CASSIE 2022-03-23 [facility], Courtney U niversity of 10:21:00 [facility] FIBRINOGEN 2022-03-23 [facility] of 10:21:00 [facility] FERRITIN SERUM 2022-03-23 Rainer [facility] of 10:21:00 [facility] BASIC METABOLIC PANEL (NA, K, CL, 2022-03-23 [facility] of CO2, GLUCOSE, BUN, CREATININE, CA) 10:21:00 [facility] CBC WITH DIFF 2022-03-23 [facility] of 10:21:00 [facility] ACTIVATED PARTIAL THRMPLAS CASSIE 2022-03-23 [facility], Courtney U niversity of 10:21:00 [facility] FIBRINOGEN 2022-03-23 [facility] of 10:21:00 [facility] POCT GLUCOSE (AUTOMATED) 2022-03-23 Prakash Waller rsity of 02:06:00 [facility] POCT GLUCOSE (AUTOMATED) 2022-03-23 Prakash Waller [facility] of 02:06:00 [facility] POCT GLUCOSE (AUTOMATED) 2022-03-23 Prakash Waller Vi Unive rsity of 02:06:00 [facility] POCT GLUCOSE (AUTOMATED) 2022-03-23 Prakash Waller Vi Unive rsity of 01:28:00 [facility] POCT GLUCOSE (AUTOMATED) 2022-03-23 Prakash Waller Vi Unive rsity of 01:28:00 [facility] POCT GLUCOSE (AUTOMATED) 2022-03-23 Prakash Waller Vi Unive rsity of 01:28:00 [facility] POCT GLUCOSE (AUTOMATED) 2022-03-22 Prakash Waller Vi Unive rsity of 22:06:00 [facility] POCT GLUCOSE (AUTOMATED) 2022-03-22 Prakash Waller Vi Unive rsity of 22:06:00 [facility] POCT GLUCOSE (AUTOMATED) 2022-03-22 Prakash Waller Vi Unive rsity of 22:06:00 [facility] HB ABO GROUPING 2022-03-22 [facility] of 20:28:00 [facility] HB ABO GROUPING 2022-03-22 [facility] of 20:28:00 [facility] HB ABO GROUPING 2022-03-22 [facility] of 20:28:00 [facility] VITAMIN B12, LEVEL 2022-03-22 [facility] of 17:58:00 [facility] FOLATE 2022-03-22 [facility] of 17:58:00 [facility] HEPATIC FUNCTION PANEL ([id number]) 2022-03-22 Shabbir Nugent niversity of (ALB,T.PRO,BILI 17:58:00 [facility],BU/BC,ALT,AST,ALK PHOS) [place] BASIC METABOLIC PANEL (NA, K, CL, 2022-03-22 [facility] of CO2, GLUCOSE, BUN, CREATININE, CA) 17:58:00 [facility] CBC WITH DIFF 2022-03-22 Jovanna, [facility] of 17:58:00 [facility] VITAMIN B12, LEVEL 2022-03-22 [facility] of 17:58:00 [facility] FOLATE 2022-03-22 Olden, [facility] of 17:58:00 [facility] HEPATIC FUNCTION PANEL ([id number]) 2022-03-22 [facility] (ALB,T.PRO,BILI 17:58:00 [facility] T,BU/BC,ALT,AST,ALK PHOS) Branch BASIC METABOLIC PANEL (NA, K, CL, 2022-03-22 Jovanna [facility] of CO2, GLUCOSE, BUN, CREATININE, CA) 17:58:00 [facility] CBC WITH DIFF 2022-03-22 Jovanna [facility] 17:58:00 [facility] VITAMIN B12, LEVEL 2022-03-22 Jovanna [facility] of 17:58:00 [facility] FOLATE 2022-03-22 Jovanna, [facility] of 17:58:00 [facility] HEPATIC FUNCTION PANEL ([id number]) 2022-03-22 [facility] (ALB,T.PRO,BILI 17:58:00 [facility] T,BU/BC,ALT,AST,ALK PHOS) [place] BASIC METABOLIC PANEL (NA, K, CL, 2022-03-22 Jovanna [facility] of CO2, GLUCOSE, BUN, CREATININE, CA) 17:58:00 [facility] CBC WITH DIFF 2022-03-22 Olden, [facility] of 17:58:00 [facility] HOSPITAL ADMISSION 2022-03-22 [facility] 05:01:00 Unassigned, No [facility] HOSPITAL ADMISSION 2022-03-22 [facility] 05:01:00 Unassigned, No [facility] HOSPITAL ADMISSION 2022-03-22 [facility] 05:01:00 Unassigned, No [facility] [id number] 2021-10-17 [facility] 00:00:00 [facility] Encounters Start End Encounter Admission Attending Care Care Encounter Source Date/Time Date/Time Type Type Clinicians Facility Department ID 2022-11-01 Outpatient Triana, [facility] [id number] Common 12:45:00 Skylar 08810 [facility] 2022-10-31 [facility] [id number] Common 12:06:00 Skylar 94577 [facility] 2022-02-16 Outpatient Triana, STLMLC STLMLC [id number] Common 13:42:01 Skylar [facility] 2022-02-07 Outpatient Triana, STLMLC STLMLC [id number] Common 08:29:00 Skylar [facility] 2021-12-27 Outpatient R [facility] NING [id number] Univers 09:49:04 MEHRDAD Field [facility] 2021-12-08 Outpatient Triana, STLMLC STLMLC [id number] Common 16:43:00 Skylar [facility] 2021-12-05 Outpatient Triana, STLMLC STLMLC [id number] Common 14:56:01 Skylar [facility] 2021-11-04 Outpatient Triana, STLMLC STLMLC [id number] Common 10:22:00 Skylar [facility] 2021-10-26 Outpatient Triana, STLMLC STLMLC [id number] Common 16:48:01 Skylar [facility] 2021-10-21 Outpatient Triana, STLMLC STLMLC [id number] Common 13:18:01 Skylar [facility] 2021-10-18 Outpatient Triana, STLMLC STLMLC [id number] Common 13:27:02 Skylar [facility] 2021-08-31 Outpatient Triana, STLMLC STLMLC [id number] Common 14:40:32 Skylar [facility] 2021-08-31 Outpatient Triana, STLMLC STLMLC [id number] Common 14:27:35 Skylar [facility] 2021-08-31 Outpatient Triana, STLMLC STLMLC [id number] Common 14:13:22 Skylar [facility] 2021-08-31 Outpatient Triana, STLMLC STLMLC [id number] Common 14:05:40 Skylar 70020 [facility] 2021-08-31 Outpatient Fleming, STLMLC STLMLC [id number] Common 14:01:51 Terry 47729 [facility] 2021-08-31 Outpatient Fleming, STLMLC STLMLC [id number] Common 14:00:44 Terry 18715 [facility] 2021-08-31 Outpatient Fleming, STLMLC STLMLC [id number] Common 13:48:34 Terry 91370 [facility] 2021-08-31 Outpatient Fleming, STLMLC STLMLC [id number] Common 13:28:14 Terry 48538 [facility] 2021-08-31 Outpatient Fleming, STLMLC STLMLC [id number] Common 12:43:59 Terry 17846 [facility] 2021-08-31 Outpatient Fleming, STLMLC STLMLC [id number] Common 12:43:30 Terry 87256 [facility] 2021-08-31 Outpatient Fleming, STLMLC STLMLC [id number] Common 12:40:36 Terry 88783 [facility] 2021-08-31 Outpatient Fleming, STLMLC STLMLC [id number] Common 11:45:41 Terry 41145 [facility] 2021-08-31 Outpatient Fleming, STLMLC STLMLC [id number] Common 11:36:44 Terry 96890 [facility] 2021-08-31 Outpatient Fleming, STLMLC STLMLC [id number] Common 11:33:43 Terry 10327 [facility] 2021-08-31 Outpatient Fleming, STLMLC STLMLC [id number] Common 11:29:50 Etrry 70436 [facility] 2021-08-31 Outpatient Fleming, STLMLC STLMLC [id number] Common 11:25:13 Terry 59110 [facility] 2021-08-31 Outpatient Fleming, STLMLC STLMLC [id number] Common 11:19:14 Terry 57394 [facility] 2021-08-31 [facility] [id number] Common 11:12:16 Terry 13749 [facility] 2021-08-31 Out[facility] Estef[facility] [id number] Common 11:09:26 Sheryl 66264 [facility] 2021-08-31 [facility] Fleming[facility] [id number] Common 11:07:41 Terry 23931 [facility] 2021-08-31 [facility] Fleming[facility] [id number] Common 11:07:07 Terry 73375 [facility] 2021-08-31 Outpatient Fleming, STLMLC [facility] [id number] Common 10:58:45 Terry 74249 [facility] 2021-06-07 Emergency [facility] [id number] Univers 03:36:58 ity [facility] 2021-06-07 Outpatient R [facility] NING [id number] Univers 00:03:36 EMEHRDAD ity [facility] 2021-06-06 Emergency [facility] [id number] Univers 01:28:49 ity [facility] 2021-06-04 Emergency [facility] [id number] [facility] [id number] Univers 00:26:15 E MEHRDAD ity [facility] 2023-01-10 2023-01-10 Outpatient MHIE MHIE [id number] Memoria 14:45:00 14:45:00 33 dmitry Donato 2023-01-10 2023-01-10 Outpatient MHIE MHIE [id number] Memoria 14:45:00 14:45:00 33 dmitry Donato 2022-11-08 2022-11-08 Outpatient MHIE MHIE [id number] Memoria 15:15:00 15:15:00 32 dmitry Donato 2022-11-08 2022-11-08 Outpatient MHIE MHIE [id number] Memoria 15:15:00 15:15:00 32 dmitry Donato 2022-10-05 2022-10-05 Outpatient THELMAIE TONIA [id number] Memoria 13:30:00 13:30:00 31 dmitry Donato 2022-10-05 2022-10-05 Outpatient TONIA RANDALL [id number] Memoria 13:30:00 13:30:00 31 dmitry Donato 2022-09-29 2022-09-29 Office [facility] 1.2.840.114 [id number] Univers 10:45:00 11:00:00 Visit [facility] 350.1.13.10 it y of [place] 4.2.7.2.686 Solomon as SANDY?BLEA [phone] [address] OFFICE [facility] 2022-09-29 2022-09-29 Outpatient [facility] [id number] Univers 10:45:00 10:45:00 KUSUM ity of [facility] 2022-09-19 2022-09-19 Telephone [facility] 1.2.564.037 [id number] Univers 00:00:00 00:00:00 Kusum S HEALTH 350.1.13.10 it y of [place] 4.2.7.2.686 Solomon as SANDY?BLEA [id number] [address] OFFICE [facility] 2022-09-12 2022-09-12 Telephone [facility] 1.2.357.118 [id number] Univers 00:00:00 00:00:00 Kusum S HEALTH 350.1.13.10 it y of [place] 4.2.7.2.686 Solomon as SANDY?BLEA [id number] [address] OFFICE [facility] 2022-09-05 2022-09-05 Orders Doctor BARONE 1.2.840.114 [id number] Univers 00:00:00 00:00:00 Only Unassigned, BAR 350.1.13.10 ity of [place] [facility] 4.2.7.2.686 Solomon as [phone] [address] 2022-08-24 2022-08-24 Outpatient [facility] [id number] Univers 11:15:00 11:41:29 KUSUM itkatrina [facility] 2022-08-24 2022-08-24 Office [facility] 1.2.840.114 [id number] Univers 11:15:00 11:30:00 Visit Kusum MANJARREZ 350.1.13.10 it [facility] 4.2.7.2.686 Solomon as SANDY?BLEA [phone] Ar dicdemetra FUNEZ [address] [facility] OFFICE [facility] 2022-08-21 2022-08-21 Orders Doctor ABISAI 1.2.840.114 [id number] Univers 00:00:00 00:00:00 Only Unassigned, BAR 350.1.13.10 ity of [place] [facility] 4.2.7.2.686 Solomon as [phone] [address] 2022-08-17 2022-08-17 Outpatient [facility] [id number] Univers 10:45:00 10:45:00 NICHOLE perez [facility] 2022-08-17 2022-08-17 Telephone [facility] 1.2.840.114 [id number] Univers 00:00:00 00:00:00 Nichole L [facility] 350.1.13.10 it y [facility] 4.2.7.2.686 Solomon as SANDY?BLEA [phone] Ar shabbir FUNEZ [address] [place] [address] 2022-08-14 2022-08-14 Outpatient R [facility] [id number] Univers 13:15:00 13:15:00 NICHOLE perez [facility] 2022-08-14 2022-08-14 Tower Erector Aime, Sal[facility] Lab Main [facility] 1.2.8 40.114 [id number] Univers 08:15:00 08:30:00 Visit Nichole Lau [facility] 350.1.13.10 ity of [place] [id number] Ar shabbir ROSENBERG [address] [facility] 2022-08-14 2022-08-14 Outpatient R [facility] [id number] Univers 08:15:00 08:15:00 NICHOLE perez [facility] 2022-08-10 2022-08-10 Outpatient ERICKSON_R [facility] [address] [facility] 00:00:00 00:00:00 0105 [facility] 2022-08-10 2022-08-10 Telephone [facility] 1.2.840.114 [id number] Univers 00:00:00 00:00:00 Nichole Neely HEALTH 350.1.13.10 it y of [place] 4.2.7.2.686 Solomon as SANDY?BLEA [id number] Ar checodemetra FUNEZ [address] [place] [address] MEDICAL OFFICE [facility] 2022-08-10 2022-08-10 Orders Doctor ABISAI 1.2.840.114 [id number] Univers 00:00:00 00:00:00 Only Unassigned, BAR 350.1.13.10 ity of [place] [facility] 4.2.7.2.686 Solomon as [phone] [address] 2022-08-09 2022-08-09 Outpatient R [facility] [id number] Univers 13:00:00 13:31:36 NICHOLE perez [facility] 2022-08-09 2022-08-09 Office [facility] 1.2.378.877 [id number] Univers 13:00:00 13:31:36 Visit Nichole Neely [facility] 350.1.13.10 it y [facility] 4.2.7.2.686 Solomon as SANDY?BLEA [id number] Ar checodemetra [address] OFFICE [facility] 2022-07-24 2022-07-24 Orders Doctor ABISAI 1.2.840.114 [id number] Univers 00:00:00 00:00:00 Only Unassigned, BAR 350.1.13.10 ity of [place] [facility]OSPITAL 4.2.7.2.686 Solomon as [phone] [address] 2022-07-12 2022-07-12 Telephone [facility] 1.2.183.282 [id number] Univers 00:00:00 00:00:00 Kusum S HEALTH 350.1.13.10 it y of [place] 4.2.7.2.686 Solomon as SANDY?BLEA [phone] Me shabbir FUNEZ [address] MEDICAL OFFICE [facility] 2022-07-10 2022-07-10 (TEL) [facility] [id number] Co mmon 00:00:00 00:00:00 [facility] 2022-06-23 2022-06-23 Telephone Tara [facility] 1.2.125.824 [id number] Univers 00:00:00 00:00:00 Kusum S HEALTH 350.1.13.10 it y [facility] 4.2.7.2.686 Solomon as SANDY?BLEA [id number] Me shabbir FUNEZ [address] [facility] OFFICE [facility] 2022-06-20 2022-06-20 Telephone Sid [facility] 1.2.840.114 [id number] Univers 00:00:00 00:00:00 Nichole L HEALTH 350.1.13.10 it y [facility] 4.2.7.2.686 Solomon as SANDY?BLEA [id number] Ar shabbir FUNEZ [address] [facility] OFFICE [facility] 2022-06-14 2022-06-14 Orders Doctor ABISAI 1.2.840.114 [id number] Univers 00:00:00 00:00:00 Only Unassigned, BAR 350.1.13.10 ity of [place] [facility] 4.2.7.2.686 Solomon as [phone] [facility] [address] 2022-06-13 2022-06-13 Telephone Tara [facility] 1.2.130.444 [id number] Univers 00:00:00 00:00:00 Kusum S HEALTH 350.1.13.10 it y [facility] 4.2.7.2.686 Solomon as SANDY?BLEA [id number] Ar shabbir FUNEZ [address] MEDICAL OFFICE [facility] 2022-06-06 2022-06-06 Emergency Vieira, [facility] 1.2.835.848 [id number] Univers 15:32:00 16:14:00 Katty S [place] 350.1.13.10 i ty of [place] [id number] [facility] [address] 2022-06-06 2022-06-06 Outpatient R [facility] [id number] Univers 13:41:07 15:31:00 KUSUM ity [facility] 2022-06-06 2022-06-06 Outpatient Reena [facility] ERT [id number] Univers 13:41:07 15:31:00 KUSUM ity [facility] 2022-06-06 2022-06-06 Hospital [facility] 1.2.840.114 [id number] Univers 13:41:07 15:31:00 [address]counter [address]um [address] 350.1.13.10 ity of [place] [id number] [facility] [address] 2022-06-06 2022-06-06 Orders Doctor ABISAI 1.2.840.114 [id number] Univers 00:00:00 00:00:00 Only Unassigned, BAR 350.1.13.10 ity of [place] [facility] 4.2.7.2.686 Solomon as [phone] [facility] [address] 2022-05-24 2022-05-24 Outpatient Reena [facility] [id number] Univers 15:08:06 23:59:00 KUSUM katrina [facility] 2022-05-24 2022-05-24 Office [facility] 1.2.840.114 [id number] Univers 15:00:00 15:49:56 Visit Kusum Cop[place] HEALTH 350.1.13.10 it y of [place] 4.2.7.2.686 Solomon as SANDY?BLEA [phone] [address] MEDICAL OFFICE [facility] 2022-05-11 2022-05-11 Telephone [facility] 1.2.840.114 [id number] Univers 00:00:00 00:00:00 Nichole L HEALTH 350.1.13.10 it y of [place] 4.2.7.2.686 Solomon as SANDY?BLEA [phone] [facility] [address] MEDICAL OFFICE [facility] 2022-05-10 2022-05-10 Orders Doctor BARONE 1.2.840.114 [id number] Univers 00:00:00 00:00:00 Only Unassigned, BAR 350.1.13.10 ity of [place] [facility] 4.2.7.2.686 Solomon as [phone] [facility] [address] 2022-05-03 2022-05-03 OFFICE [facility] [id number] Co mmon 00:00:00 00:00:00 VISIT Spirit ESTAB PT - CHI LEVEL 4 [facility] 2022-04-04 2022-04-04 Orders Doctor ABISAI 1.2.840.114 [id number] Univers 00:00:00 00:00:00 Only Unassigned, BAR 350.1.13.10 ity of [place] [facility] 4.2.7.2.686 Solomon as [phone] [facility] [address] 2022-03-27 2022-03-27 Transition DAVE Lowery 1.2.840.114 [id number] Univers 00:00:00 00:00:00 of Care Karen PALOMO 350.1.13.10 i ty of [place] [phone] [facility] [address] 2022-03-22 2022-03-24 Outpatient U PRAKASH WALLER [facility] NING [id number] Univers 10:30:00 20:18:00 ity of [facility] 2022-03-22 2022-03-24 Hospital Prakash Waller 1.2.840.114 [id number] Univers 10:30:00 20:18:00 Encounter Vi BAR 350.1.13.10 ity of [facility] 4.2.7.2.686 Solomon as [phone] [facility] [address] 2022-03-24 2022-03-24 [facility] 1.2.840.114 95 [id number] Univers 14:05:00 15:11:00 Shauns ICAL 350.1.13.10 it y of [facility] 4.2.7.2.686 Solomon as BLDG [phone] [facility] [address] 2022-03-23 2022-03-23 [facility] 1.2.840.114 [id number] Univers 09:00:00 09:43:00 Winsons ICAL 350.1.13.10 it y of [place] 4.2.7.2.686 Solomon as BLDG [phone] [address] 2022-03-08 2022-03-08 (TEL) STLMLC STLMLC [id number] Co mmon 00:00:00 00:00:00 [facility] 2022-03-08 2022-03-[address] [facility] [id number] Co mmon 00:00:00 00:00:00 VISIT [facility] LEVEL 4 [facility] 2022-02-21 2022-02-21 Outpatient Reena PACHECO [facility] [id number] Univers 14:58:27 23:59:00 [facility] 2022-02-21 2022-02-21 Outpatient [facility] [id number] Univers 14:00:00 15:28:39 [facility] 2022-02-21 2022-02-21 Office [facility] 1.2.840.114 [id number] Univers 14:00:00 15:28:39 Visit [facility] 350.1.13.10 it y of [place] 4.2.7.2.686 Solomon as SANDY?BLEA [phone] [address] MEDICAL OFFICE [facility] 2022-02-09 2022-02-09 Outpatient Reena [facility] [id number] Univers 16:00:00 16:00:00 [facility] 2022-01-31 2022-01-31 (TEL) [facility] [id number] Co mmon 00:00:00 00:00:00 [facility] 2022-01-20 2022-01-20 Outpatient R ISREAL [facility] [id number] Univers 18:06:07 23:59:00 [facility] 2022-01-20 2022-01-20 [facility] 1.2.068.260 [id number] Univers 18:06:07 23:59:00 Encounter [facility] 350.1.13.10 ity of [place] 4.2.7.2.686 Solomon as SANDY?BLEA [phone] Ar dical ARMIN [address] MEDICAL OFFICE BUILDING 2022-01-20 2022-01-20 Urgent Roxy Bach [facility] 1.2.840.114 [id number] Univers 18:00:00 18:15:46 [facility] 350.1.13.10 ity of [place] 4.2.7.2.686 Solomon as SANDY?BLEA [phone] Ar shabbir FUNEZ [address] MEDICAL OFFICE [facility] 2022-01-13 2022-01-13 (TEL) STLMLC STLMLC [id number] Co mmon 00:00:00 00:00:00 [facility] 2022-01-12 2022-01-12 (TEL) STLMLC STLMLC [id number] Co mmon 00:00:00 00:00:00 [facility] 2022-01-11 2022-01-11 Outpatient R [facility] [id number] Univers 07:32:00 09:32:00 MEHRDAD Field o f [facility] 2022-01-11 2022-01-11 [facility] 1.2.840.114 [id number] Univers 07:32:00 09:32:00 Encounter Mehrdad field 350.1.13.10 ity of [place] SUR[place]ICAL [id number] [facility] [address] 2022-01-11 2022-01-11 Surgery [facility] 1.2.840.114 [id number] Univers 08:20:00 08:56:00 Mehrdad field 350.1.13.10 ity of [place]ICAL [phone] [facility] [address] 2022-01-10 2022-01-10 Laboratory Only, Adc Test [facility] 1.2.840. 114 [id number] Univers 08:45:00 09:00:00 Only Mehrdad Blair 350.1.1 3.10 ity of [place] 4.2.7.2.686 [facility] [id number] [facility] [address] 2022-01-10 2022-01-10 Outpatient R SAMIGENANRO [facility] [id number] Univers 08:45:00 08:45:00 MEHRDAD Field ity o f [facility] 2022-01-10 2022-01-10 Orders Doctor BARONE 1.2.840.114 [id number] Univers 00:00:00 00:00:00 Only Unassigned, BAR 350.1.13.10 ity of [facility] 4.2.7.2.686 [facility] [phone] [facility] [address] 2021-12-07 2021-12-07 OFFICE STLMLC STLMLC [id number] Co mmon 00:00:00 00:00:00 VISIT Spirit ESTAB PT - CHI LEVEL 4 [facility] 2021-11-24 2021-11-24 (TEL) STLMLC STLMLC [id number] Co mmon 00:00:00 00:00:00 [facility] 2021-11-11 2021-11-11 (TEL) STLMLC STLMLC [id number] Co mmon 00:00:00 00:00:00 [facility] 2021-11-08 2021-11-08 OFFICE STLMLC STLMLC [id number] Co mmon 00:00:00 00:00:00 VISIT Spirit ESTAB PT - CHI LEVEL 4 [facility] 2021-11-03 2021-11-03 NON-BILLAB STLMLC STLMLC [id number] Common 00:00:00 00:00:00 LE VISIT [facility] 2021-10-20 2021-10-20 NON-BILLAB STLMLC STLMLC [id number] Common 00:00:00 00:00:00 LE VISIT [facility] 2021-10-17 2021-10-18 Inpatient EM Shwethaowen, CH[facility]Y [facility] [id number] [facility] 14:18:00 13:18:00 Osshellychi [address] [facility] are [facility] 2021-10-13 2021-10-13 (TEL) STLMLC STLMLC [id number] Co mmon 00:00:00 00:00:00 [facility] 2021-10-11 2021-10-11 OFFICE STLMLC STLMLC [id number] Co mmon 00:00:00 00:00:00 VISIT [facility] ESTAB PT - CHI LEVEL 4 [facility] 2021-09-12 2021-09-12 (TEL) STLMLC STLMLC [id number] Co mmon 00:00:00 00:00:00 [facility] 2021-09-02 2021-09-02 (TEL) STLMLC STLMLC [id number] Co mmon 00:00:00 00:00:00 [facility] 2021-09-02 2021-09-02 (TEL) STLMLC STLMLC [id number] Co mmon 00:00:00 00:00:00 [facility] 2021-09-02 2021-09-02 (TEL) STLMLC STLMLC [id number] Co mmon 00:00:00 00:00:00 [facility] 2021-08-31 2021-08-31 OFFICE STLMLC STLMLC [id number] Co mmon 00:00:00 00:00:00 VISIT [facility] PT - CHI LEVEL 4 [facility] 2021-08-25 2021-08-25 (TEL) STLMLC STLMLC [id number] Co mmon 00:00:00 00:00:00 [facility] 2021-08-23 2021-08-23 OFFICE STLMLC STLMLC [id number] Co mmon 00:00:00 00:00:00 VISIT [facility] ESTAB PT - CHI LEVEL 4 [facility] 2021-08-16 2021-08-16 OL DIG E/M STLMLC STLMLC [id number] Common 00:00:00 00:00:00 [facility] 20 Spir it MIN [facility] 2021-08-15 2021-08-15 (TEL) STLMLC STLMLC [id number] Co mmon 00:00:00 00:00:00 [facility] 2021-08-02 2021-08-02 Emergency X MARCELINA [facility] ERT [id number] Univers 12:57:00 18:07:00 KATTY perez [facility] 2021-08-02 2021-08-02 Emergency Lavell John [facility] 1.2.840. 114 [id number] Univers 12:57:00 18:07:00 VieiraCorey zelayaya Min [place] 350.1.13.10 ana [facility] 4.2.7.[address] [facility] [phone] [place] [address] [address] 2021-07-27 2021-07-27 (TEL) STLMLC STLMLC [id number] Co mmon 00:00:00 00:00:00 Spirit - CHI [facility] 2021-07-07 2021-07-07 (TEL) STLMLC STLMLC [id number] Co mmon 00:00:00 00:00:00 Spirit - CHI [facility] 2021-07-06 2021-07-06 OFFICE STLMLC STLMLC [id number] Co mmon 00:00:00 00:00:00 VISIT Spirit ESTAB PT - CHI LEVEL 4 [facility] 2021-06-28 2021-06-28 Outpatient MHIE MHIE [id number] Memoria 16:00:00 16:00:00 30 dmitry Donato 2021-06-28 2021-06-28 Outpatient MHIE MHIE [id number] Memoria 16:00:00 16:00:00 30 dmitry Donato 2021-06-22 2021-06-22 OFFICE STLMLC STLMLC [id number] Co mmon 00:00:00 00:00:00 VISIT Spirit ESTAB PT - CHI LEVEL 4 [facility] 2021-06-02 2021-06-02 OFFICE STLMLC STLMLC [id number] Co mmon 00:00:00 00:00:00 VISIT Spirit ESTAB PT - CHI LEVEL 4 [facility] 2021-05-24 2021-05-24 Outpatient MHIE MHIE [id number] Memoria 15:30:00 15:30:00 29 dmitry Donato 2021-05-24 2021-05-24 Outpatient MHIE MHIE [id number] Memoria 15:30:00 15:30:00 29 l Tnamay 2021-05-18 2021-05-[address] [facility] [facility] [id number] Common 00:00:00 00:00:00 MCR Spirit WELLNESS - CHI VISIT [facility] 2021-05-09 2021-05-09 Emergency John, [facility] 1.2.028.993 [id number] Univers 10:58:00 17:26:00 Lavell Mcfarlane 350.1.13.10 i ty of [place] [place] [address] [id number] [facility] [address] 2021-05-04 2021-05-04 Hospital [facility] 1.2.840.114 [id number] Univers 11:54:00 14:35:00 Encounter Mehrdad field 350.1.13.10 ity of [place] Surgical [id number] [facility] [address] 2021-05-04 2021-05-04 Surgery [facility] 1.2.840.114 [id number] Univers 13:25:00 13:57:00 Mehrdad field 350.1.13.10 ity of [place] [id number] [facility] [address] 2021-05-03 2021-05-03 Laboratory Only, Adc Test [facility] 1.2.840. 114 [id number] Univers 08:07:19 08:22:19 Only Mehrdad Blair 350.1.1 3.10 ity of [place].[address] [id number] [facility] [address] 2021-05-03 2021-05-03 Outpatient R [facility] [id number] Univers 07:45:00 07:45:00 MEHRDAD Field o f [facility] 2021-05-03 2021-05-03 Orders Doctor BARONE 1.2.840.114 [id number] Univers 00:00:00 00:00:00 Only Unassigned, BAR 350.1.13.10 ity of [facility] 4.2.7.2.686 Solomon as [id number] [address] 2021-04-20 2021-04-20 Outpatient STLMLC STLMLC [id number] Common 00:00:00 00:00:00 [facility] 2021-03-10 2021-03-10 Hospital Radiology [facility] 1.2.840.114 [id number] 10:47:03 23:59:00 Encounter [place] 350.1.13.10 [place] [address] [id number] 807 2021-03-10 2021-03-10 [facility] Radiology [facility] 1.2.840.114 [id number] 10:45:00 10:46:00 Encounter [place] 350.1.13.10 [place] [address] [id number] 807 2021-03-10 2021-03-10 Outpatient R RADIOLOGY [facility] [id number] Univers 00:00:00 00:00:00 ity [facility] 2021-03-08 2021-03-[address] [facility] 1.2.840.114 [id number] 20:00:13 20:20:13 Care [facility] 350.1.13.10 [place] 4.2.7.2.686 Professio [id number] nal [address] 2021-03-08 2021-03-08 Outpatient R TETO, [facility] [id number] [facility] 20:00:00 20:00:00 LEON ity [facility] 2021-02-24 2021-02-24 Outpatient STLMLC STLMLC [id number] Common 00:00:00 00:00:00 [facility] 2021-02-19 2021-02-19 Outpatient STLMLC STLMLC [id number] Common 00:00:00 00:00:00 [facility] 2021-02-18 2021-02-18 Outpatient STLMLC STLMLC [id number] Common 00:00:00 00:00:00 [facility] 2021-02-16 2021-02-16 Outpatient STLMLC STLMLC [id number] Common 00:00:00 00:00:00 [facility] 2021-01-31 2021-01-31 Transition Dave Lowery 1.2.840.114 [id number] 00:00:00 00:00:00 of Care Karen Palomo 350.1.13.10 [place] 4.2.7.2.686 [id number] 2021-01-18 2021-01-28 [facility] Jona Davila Shari [facility] 1.2.840.1 14 [id number] 21:13:00 14:30:00 Encounter Mauro Chinchilla 350.1.13.10 [place] 4.2.7.[address] [id number] 081 2021-01-25 2021-01-25 Anesthesia Tai Avalos [facility] 1.2.840.11 [id number] 08:49:00 09:30:00 Event Maribel Randell [place] 350.1.13.10 [place] 4.2.7.2.686 Surgical [id number] [place] 020 2021-01-25 2021-01-25 Surgery [facility] 1.2.840.114 [id number] 08:33:00 09:08:00 [place] 350.1.13.10 [place] 4.2.7.2.686 Surgical [id number] [place] 020 2021-01-19 2021-01-19 Outpatient STLMLC STLMLC [id number] Common 00:00:00 00:00:00 [facility] 2021-01-14 2021-01-14 Outpatient MHIE MHIE [id number] Memoria 13:30:00 13:30:00 28 [place] 2021-01-14 2021-01-14 Outpatient MHIE MHIE [id number] Memoria 13:30:00 13:30:00 28 dmitry Donato 2020-12-31 2020-12-31 Outpatient STLMLC STLMLC [id number] Common 00:00:00 00:00:00 [facility] 2020-12-30 2020-12-30 Outpatient STLMLC STLMLC [id number] Common 00:00:00 00:00:00 [facility] 2020-12-20 2020-12-20 Outpatient STLMLC STLMLC [id number] Common 00:00:00 00:00:00 [facility] 2020-12-08 2020-12-08 [facility] 1.2.840.114 [id number] 00:00:00 00:00:00 [facility] 350.1.13.10 Surgical 4.2.7.2.686 Specialti [id number] es [address] [place] 2020-12-07 2020-12-07 Orders Doctor ABISAI 1.2.840.114 [id number] 00:00:00 00:00:00 Only Unassigned, BAR 350.1.13.10 [facility] 4.2.7.2.686 [id number] 009 2020-12-06 2020-12-06 Office LauFormerly [facility] [id number] 15:09:54 15:49:09 Visit [facility] [id number] Surgical [id number] Specialti [id number] es [address] [place] 2020-12-06 2020-12-06 [facility] [id number] Univers 15:00:00 15:00:00 [facility] 2020-11-26 2020-11-26 [facility] [id number] Univers 09:30:00 09:30:00 [facility] 2020-11-24 2020-11-24 [facility] [id number] Univers 09:30:00 09:30:00 [facility] 2020-11-16 2020-11-16 Outpatient STLMLC STL[facility] [id number] Common 00:00:00 00:00:00 [facility] 2020-11-11 2020-11-11 [facility] [id number] Univers 11:15:00 11:15:00 [facility] 2020-11-09 2020-11-09 Outpatient Reena TARA [facility] [id number] Univers 13:45:00 13:45:00 [facility] 2020-11-09 2020-11-09 Outpatient Reena LAU [facility] [id number] Univers 00:00:00 00:00:00 [facility] 2020-11-08 2020-11-08 Outpatient Reena LAU, [facility] [id number] Univers 00:00:00 00:00:00 [facility] 2020-11-03 2020-11-03 Outpatient STLMLC STLMLC [id number] Common 00:00:00 00:00:00 [facility] 2020-10-25 2020-10-25 Outpatient STLMLC STLMLC [id number] Common 00:00:00 00:00:00 [facility] 2020-10-22 2020-10-22 Outpatient STLMLC STLMLC [id number] Common 00:00:00 00:00:00 [facility] 2020-10-20 2020-10-20 Outpatient STLMLC STLMLC [id number] Common 00:00:00 00:00:00 [facility] 2020-10-14 2020-10-14 Outpatient MHIE MHIE [id number] Memoria 15:00:00 15:00:00 27 [address] [place] 2020-10-14 2020-10-14 Outpatient MHIE MHIE [id number] Memoria 15:00:00 15:00:00 27 dmitry [place] 2020-10-14 2020-10-14 Outpatient MHIE MHIE [id number] Memoria 14:15:00 14:15:00 25 dmitry [place] 2020-10-14 2020-10-14 Outpatient MHIE MHIE [id number] Memoria 14:15:00 14:15:00 25 dmitry [place] 2020-10-12 2020-10-12 Outpatient STLMLC STLMLC [id number] Common 00:00:00 00:00:00 [facility] 2020-09-15 2020-09-15 Outpatient STLMLC STLMLC [id number] Common 00:00:00 00:00:00 [facility] 2020-09-10 2020-09-10 Outpatient Reena JORDAN [facility] [id number] Univers 19:40:00 19:40:00 AMANDA vincent [facility] 2020-08-24 2020-08-24 Outpatient MHIE MHIE [id number] Memoria 13:45:00 13:45:00 26 l [place] 2020-08-24 2020-08-24 Outpatient MHIE MHIE [id number] Memoria 13:45:00 13:45:00 26 l [place] 2020-07-22 2020-07-22 Outpatient MHIE MHIE [id number] Memoria 14:30:00 14:30:00 24 l [place] 2020-07-22 2020-07-22 Outpatient MHIE MHIE [id number] Memoria 14:30:00 14:30:00 24 l [place] 2020-07-12 2020-07-12 Outpatient STLMLC STLMLC [id number] Common 00:00:00 00:00:00 [facility] 2020-06-11 2020-06-11 Outpatient STLMLC STLMLC [id number] Common 00:00:00 00:00:00 [facility] 2020-06-01 2020-06-01 Outpatient Reena [facility] [id number] Univers 11:45:00 11:45:00 MEHRDAD Field [facility] 2020-05-26 2020-05-26 Outpatient STLMLC STLMLC [id number] Common 00:00:00 00:00:00 [facility] 2020-05-11 2020-05-11 Outpatient STLMLC STLMLC [id number] Common 00:00:00 00:00:00 [facility] 2020-04-16 2020-04-16 [facility] [id number] Common 15:00:00 15:00:00 [facility] 2020-04-16 2020-04-16 [address] [id number] Common 00:00:00 00:00:00 [facility] 2020-04-13 2020-04-13 [facility] [id number] Common 08:51:00 08:51:[address] [facility] 2020-04-08 2020-04-08 Outpatient MHIE MHIE [id number] Memoria 13:45:00 13:45:00 22 l [place] 2020-04-08 2020-04-08 Outpatient MHIE MHIE [id number] Memoria 13:45:00 13:45:00 22 l [place] 2020-03-18 2020-03-18 Outpatient MHIE MHIE [id number] Memoria 15:00:00 15:00:00 19 l [place] 2020-03-18 2020-03-18 Outpatient MHIE MHIE [id number] Memoria 15:00:00 15:00:00 21 l [place] 2020-03-18 2020-03-18 Outpatient MHIE MHIE [id number] Memoria 15:00:00 15:00:00 20 l [place] 2020-03-18 2020-03-18 Outpatient MHIE MHIE [id number] Memoria 15:00:00 15:00:00 19 l [place] 2020-03-18 2020-03-18 Outpatient MHIE MHIE [id number] Memoria 15:00:00 15:00:00 21 l [place] 2020-03-18 2020-03-18 Outpatient MHIE MHIE [id number] Memoria 15:00:00 15:00:00 20 l [place] 2020-03-11 2020-03-11 Outpatient MHIE MHIE [id number] Memoria 16:15:00 16:15:00 23 l [place] 2020-03-11 2020-03-11 Outpatient MHIE MHIE [id number] Memoria 16:15:00 16:15:00 23 l [place] 2020-02-27 2020-02-27 [facility] [id number] Common 14:00:00 14:00:[address] [facility] 2020-02-23 2020-02-23 [facility] [id number] Common 13:12:00 13:12:[address] [facility] 2020-02-18 2020-02-18 [facility] [id number] Common 09:08:00 09:08:[address] [facility] 2020-02-16 2020-02-16 [facility] [id number] Common 18:34:00 18:34:[address] [facility] 2020-02-11 2020-02-11 [facility] [id number] Common 13:20:00 13:20:[address] [facility] 2020-01-06 2020-01-06 [facility] [id number] Common 18:46:00 18:46:[address] [facility] [address] [facility] 2019-12-22 2019-12-22 [facility] [id number] Common 14:00:00 14:00:00 [facility] 2019-12-17 2019-12-17 Outpatient MHIE MHIE [id number] Memoria 15:45:00 15:45:00 17 l [place] 2019-12-17 2019-12-17 Outpatient MHIE MHIE [id number] Memoria 15:45:00 15:45:00 17 l [place] 2019-12-05 2019-12-05 Outpatient MHIE MHIE [id number] Memoria 16:00:00 16:00:00 18 l [place] 2019-12-05 2019-12-05 Outpatient MHIE MHIE [id number] Memoria 16:00:00 16:00:00 18 l [place] 2019-12-05 2019-12-05 [facility] [id number] Common 10:40:00 10:40:[address] [facility] 2019-11-28 2019-11-28 [facility] [id number] Common 11:00:00 11:00:[address] [facility] [address] [facility] 2019-11-19 2019-11-19 Outpatient MHIE TONIA [id number] Memoria 08:15:00 08:15:00 16 l [place] 2019-11-19 2019-11-19 Outpatient MHIE MHIE [id number] Memoria 08:15:00 08:15:00 16 l [place] 2019-11-18 2019-11-18 Outpatient MHIE MHMAXIMO [id number] Memoria 10:15:00 10:15:00 15 l [place] 2019-11-18 2019-11-18 Outpatient MHIE MHMAXIMO [id number] Memoria 10:15:00 10:15:00 15 l [place] 2019-11-10 2019-11-10 [facility] [id number] Common 15:55:00 15:55:[address] [facility] [address] [facility] it Road [facility] 2019-11-05 2019-11-05 [facility] [id number] Common 18:33:00 18:33:[address] [facility] [address] [facility] 2019-10-28 2019-10-28 [facility] [id number] Common 11:08:00 11:08:[address] [facility] [address] [facility] 2019-10-27 2019-10-27 [facility] [id number] Common 14:31:00 14:31:[address] [facility] [address] [facility] 2019-10-13 2019-10-13 [facility] [id number] Common 09:00:00 09:00:[address] [facility] [address] [facility] 2019-09-29 2019-09-29 [facility] [id number] Common 11:30:00 11:30:[address] [facility] [address] [facility] 2019-09-26 2019-09-26 Outpatient MHIE TONIA [id number] Memoria 09:15:00 09:15:00 14 l [place] 2019-09-26 2019-09-26 Outpatient THELMAIE TONIA [id number] Memoria 09:15:00 09:15:00 14 dmitry Donato 2019-09-18 2019-09-18 [facility] [id number] Common 14:40:00 14:40:[address] [facility] [address] [facility] 2019-08-15 2019-08-15 Outpatient TONIA RANDALL [id number] Memoria 13:30:00 13:30:00 13 dmitry [place] 2019-08-15 2019-08-15 Outpatient MHMAXIMO RANDALL [id number] Memoria 13:30:00 13:30:00 13 dmitry [place] 2019-08-14 2019-08-14 [facility] [id number] Common 14:18:00 14:18:[address] [facility] [address] [facility] 2019-08-13 2019-08-13 [facility] [id number] Common 11:00:00 11:00:[address] [facility] [address] [facility] 2019-07-18 2019-07-18 [facility] [id number] Common 09:00:00 09:00:[address] [facility] [address] [facility] 2019-07-08 2019-07-08 Outpatient TONIA RANDALL [id number] Memoria 10:00:00 10:00:00 11 dmitry Donato 2019-07-08 2019-07-08 Outpatient TONIA RANDALL [id number] Memoria 10:00:00 10:00:00 11 dmitry Don[place] 2019-06-23 2019-06-23 [facility] [id number] Common 10:40:00 10:40:[address] [facility] [address] [facility] 2019-06-09 2019-06-09 [facility] [id number] Common 12:17:00 12:17:[address] [facility] [address] [facility] 2019-06-09 2019-06-09 [facility] [id number] Common 08:20:00 08:20:[address] [facility] [address] Sp[facility] it [facility] 2019-05-30 2019-05-30 [facility] [id number] Common 08:00:00 08:00:00 [facility] 2019-05-23 2019-05-23 Outpatient MHIE MHIE [id number] Memoria 09:15:00 09:15:00 10 dmitry [place] 2019-05-23 2019-05-23 Outpatient MHIE MHIE [id number] Memoria 09:15:00 09:15:00 10 l [place] 2019-05-16 2019-05-16 Outpatient MHIE MHIE [id number] Memoria 08:30:00 08:30:00 12 dmitry [place] 2019-05-16 2019-05-16 Outpatient MHIE MHIE [id number] Memoria 08:30:00 08:30:00 12 dmitry [place] 2019-04-30 2019-04-30 Outpatient MHIE MHIE [id number] Memoria 09:15:00 09:15:00 09 dmitry [place] 2019-04-30 2019-04-30 Outpatient MHIE MHIE [id number] Memoria 09:15:00 09:15:00 09 dmitry [place] 2019-04-04 2019-04-04 Outpatient MHIE MHIE [id number] Memoria 09:30:00 09:30:00 08 dmitry [place] 2019-04-04 2019-04-04 Outpatient MHIE MHIE [id number] Memoria 09:30:00 09:30:00 08 dmitry Donato 2019-04-03 2019-04-03 Outpatient Marcell Faitht [id number] Common 09:00:00 09:00:00 [facility] 2019-03-24 2019-03-24 [facility] [id number] Common 10:15:00 10:15:00 t Specialty/U Sp coretta Specialty rology - [facility] 2019-03-04 2019-03-04 Outpatient Marcell Faitht [id number] Common 11:00:00 11:00:00 t Specialty/U Sp coretta Specialty rology - [facility] 2019-02-21 2019-02-21 [facility] [id number] Common 13:45:00 13:45:00 t Specialty/U Sp coretta Specialty rology - [facility] 2019-02-18 2019-02-18 [facility] [id number] Common 15:42:00 15:42:00 [facility] 2019-02-11 2019-02-11 [facility] [id number] Common 13:20:00 13:20:00 [facility] 2018-12-27 2018-12-27 Outpatient MHIE MHIE [id number] Memoria 09:30:00 09:30:00 07 [place] 2018-12-27 2018-12-27 Outpatient MHIE MHIE [id number] Memoria 09:30:00 09:30:00 07 dmitry Donato 2018-11-21 2018-11-21 Outpatient MHIE MHIE [id number] Memoria 15:00:00 15:00:00 06 dmitry Donato 2018-11-21 2018-11-21 Outpatient MHIE MHIE [id number] Memoria 15:00:00 15:00:00 06 dmitry Donato 2018-11-11 2018-11-11 [facility] [id number] Common 09:20:00 09:20:[address] [facility] [address] [facility] 2018-10-01 2018-10-01 [facility] [id number] Common 15:30:00 15:30:[address] [facility] [address] [facility] 2018-09-06 2018-09-06 [facility] [id number] Common 10:00:00 10:00:[address] [facility] [address] [facility] 2018-08-22 2018-08-22 Outpatient MHIE MHIE [id number] Memoria 15:15:00 15:15:00 05 dmitry Donato 2018-08-22 2018-08-22 Outpatient MHIE MHIE [id number] Memoria 15:15:00 15:15:00 05 dmitry Donato 2018-06-13 2018-06-13 Outpatient TONIA RANDALL [id number] Memoria 14:00:00 14:00:00 04 dmitry Tan[place] 2018-06-13 2018-06-13 Outpatient TONIA RANDALL [id number] Memoria 14:00:00 14:00:00 04 dmitry Donato 2018-05-21 2018-05-21 [facility] [id number] Common 08:37:00 08:37:00 [facility] 2018-05-09 2018-05-09 [facility] [id number] Common 08:30:00 08:30:00 [facility] 2018-03-20 2018-03-20 Outpatient TONIA RENEEIE [id number] Memoria 10:45:00 10:45:00 02 dmitry Donato 2018-03-20 2018-03-20 Outpatient THELMAIE TONIA [id number] Memoria 10:45:00 10:45:00 02 dmitry Donato 2018-03-13 2018-03-13 Outpatient TONIA RENEEIE [id number] Memoria 14:00:00 14:00:00 03 dmitry Donato 2018-03-13 2018-03-13 Outpatient TONIA RENEEIE [id number] Memoria 14:00:00 14:00:00 03 dmirty Donato 2017-11-14 2017-11-14 Outpatient TONIA RANDALL [id number] Memoria 10:15:00 10:15:00 01 dmitry Donato 2017-11-14 2017-11-14 Outpatient TONIA RENEEIE [id number] Memoria 10:15:00 10:15:00 01 dmitry Donato Results Test Description Test Time Test Comments Results Result Comments Source POCT GLUCOSE (AUTOMATED) 2022-03-24 21:07:00 Test Item Value Reference Range Interpretation Comme nts POCT GLU (test code = 7370611875) 86 mg/dL 70-110 Lab Interpretation (test code = 49166-0) [facility] 21:07:00 Test Item Value Reference Range Interpretation Comments POCT GLU (test code = 9158163077) 86 mg/dL 70-110 Lab Interpretation (test code = Normal 95532-1) [facility] [id number] 16:43:01 Test Item Value Reference Range Interpretation Comments Case Report (test Surgical Pathology ? ? ? code = 1369162545) ?Case: [id number] ? Authorizing Provider: ?Earnest Nunez MD ? ? ?Collected: ? 03/23/2022 0936 ?Ordering Location: ? ? GI Endoscopy OR Department Received: ?03/23/2022 1143 ?Pathologist: ? Luisana Willard MD PHD ?Specimen: ? ?STOMACH, 1. Antral erythermia biopsy, eval for H. Pylori and intestinal metaplasia ? Final Diagnosis d3mcpLXzUXFot1wcRFIdjKGcO (test code = zEwMzNcZnRuYmpcdWMxIHtccn [id number]) DwOImdrPiuGOVvTCSnMJ9fmEs yrAk4tQzmBXKoryC4aBYyUYbj z2ksETS1o6jsemqnOJRvQOapH q2efCCwkYxoTzAbUYFzTQr7cE 64AGEncR8woUDeVXo3PTYwrOH rpeWuIpApTJLgtKWacAI4QKSw HU4yjjkgHJazSUulZHTbhiK2Z BPkvHFuU6CyQYEeTH8syjqvLJ M9JMslZITfUAI2ZkXnOBVem3K grvs0RtOsjUCxPLwozJPvndjk fdCdQCKsooFBFbQLRK7JOCMBB GAPDK9AO7xafMRdQUYpSO0eV0 SDVULGOyRIIVRZK6RbE3aBELN SHYTSMZqOTLAPKVFDXp8LTBXV WVxwYXIgICAgLSBOTyBJTlRFU 6TLAyPOFK3KTGDCPNTZYUIkA4 NgFCtTDCgHN3wSMLrDGN0XJUG ULFEwpNHrTGWvYW7pXi8vEQ0p JZiQO2NHBMpCY5ZtI1TKYS5JR 92BEOhBUU4BWWOZCJUrvSQsNK CflgPviEYzQWmviClaBIyfa17 rcywgTUQgIDgvMTkvMjAyMiAg KUT6HeHoHA6eqKMgEYJnqvOhv NTymVwgjyQjDUeet2FvI0ToHr AwMFxhbnNpXGRlZmxhbmcxMDM cSNK4wrQzBXGoWZliJTIyIJse Kp2oyMVczAafLcTbHUEuq0mor cZMGWafTlGtP567BQYtDWqch6 dce5QaVAHdsDQfo0X5NEJHdyk ymIq2t8zwFsOtZoT9rPGwAOrr S9ynwjUjmFCfT8WszIRokFo1w MegH78lf5Q8QdveN2wfILFfYQ YdH4JwQZ8lMYGhGdw4END6TNR 7LKGqEPNjM4NiCG7uYYQozEZi KIq5h3kguHrfPSByQQE2j4ppY LjaqjO0EH0rkk3nfVu0p1nmve AgMAZcSRKmaDDIGOYgW2FxfQl vWc6ooQl1lMexOefyCKR6Ooh0 GB2rqc48qfu2cDvlEEJrwhqqG zV2HCdqEVMknzbpKRa6WCkrZE YnvOJ0UCMwcJOtI8XvABHyTS6 pjmi3FTN6PEcjIEHaDkV9TXFu jZCxIXMwgEcoHJhos801FFO6N bZyMX9oN8Wps4X0hU9wgRIuLH KisTJyPtJgTDTsgs9tzUHsTLf nu5UrXSX9agW2oGMerVVtTMIq MH57Yjidx2NrWjnnGXR9KNRvl sUjv4Cud9djGmCyhrPrQ5kuO8 LjESYfZEExVANbXdCnphScn8W lr8UedKWbyQr1a0ndPIRcFUAz nWojr3lmGCN6AOHmL5I6eEUwl 8ijFNjuNSZbkDT8udH5PHWwiX CcW0ClaW8zDRUlQO9zsqz6m1x hAQL5UMwkADPyTlN1prI5SETi wUCiVWQfqKqkJErng973QEW1T sKkQXYjm9PqN1KgqSllN22wgH kwC61rDANmzVhbzV8fnKigdR2 cZjBcZnMyNFxxbFxwbGFpblxm MVxmczIwXGxhbmcxMDMzXGhpY 9uzOrNiXIDdtTwoZDsfp8HtLR YxXGNmMlxmczIwXHBhciBJIGh muoGbrBFzn47hWOtscULzIZXt EXvqUSVnwXrhb5FcP9rhFL5rO 2RfzVPphvZihtUhKPefMGVcz6 l9lLLkyEyvj9DybZPiBH00vgI rWMLjWEV2KJOsj2thAK05aykd ByInsB41paXippZrWJGdr8dtQ 1sdiDXsf7Mkw7OafzUtREltc0 CzUO3aaSSweklfbLP6YNXkpNR fdiKnqxH4pOhlWWVqnN4gnD4b fGyndF3kPvOwDlQqTOxvRW7wP UKrA8zshOJtUJZwYODuH9qiMj MvxS6ncYalNjolwsU1VMNbke4 9 Clinical Information Chris Joseph is a (test code = 61 year old female [id number]) Gastrointestinal hemorrhage, unspecified gastrointestinal hemorrhage type [K92.2]: 1. Antral erythermia biopsy, eval for H. Pylori and interstinal metaplasia Gross Description s0ickBVsYMDzbWMQRMHjFVGqA (test code = O1jrElywLi8uOhtQHAnceA2mE [id number]) KrGGtsh2ziHYH4b6jbubAEAxi cAWNoJIkeHYJxurrpXrS4CHxv HZCsdamcSRq9FRoqKLMgjAG5D CDtlENuJ9PwEZKpTQ2hcfq8SH C6GVblITVjOtD2YBGzEdWaSgy gHUd7PQShtdZ9Nly6VKXoZBQm zZEnn6A2UWzjnyayXOZkgXSgE 701MIsai6VhwDSaATebeQBnIZ CIRihrYkvkpWjjl1ZxjUKrEOb nHKCpNCGvWFimacciUZj7XQNy WHzswQBxVU2jvDdyJbugrOzux 2VjdCBcXGlkIDUxMDAyIFxcZG FxPN2ZYrJjMVKsBZf3TBifTNz 5NUw2YG2HTeBtHPXjLXstYEd4 OuGpFLd4EPtgRA0RAAP5DJI2L bT6XEUzKPDjVVZcAGe6OCOkLR xmIEFyaWFsIFxcZnMgMTAgXFx jvXJqLL0abIjnsLGrpovvrwFm ZOLHNMRKFVKRSDYhsBXbYL1CP QDyHExdOXMeqZEILKC1RZ6pRU ANClxsdHJwYXJcbGluMFxyaW4 xVR5IINv9nfHmIAKbOdLdN4Qi Y5xmKI8jGBVrrcFsNWJyrTCeV LMwbgMck5SjZRlmfbDnEXHkfN VkIHdpdGggdGhlIHBhdGllbnQ issIzNE5vSXCNPDHfnB6eVEAs OqT2r41oO6fzJRSctWSkpUNpu tb0eFKuDLBpfA6wr2gjUTN3NG cqLk3qSPldNRU2mJ8ekZIpseS qgR55YGA9tD3akPVfXNUuaHjo x2reAhAevqMeA03ou2udyCGqi 6AhNuQ7SR0zuGerpoFdycLjH0 NpRAHfj14qtKR6lNEvuOJbQzI wS32ixmHbHTswLY3eqZ8wWECa h64mRC5vRDRdOAHmCOOrbKEnq pNqegTjtYRgaSFyhA9vnbVgf1 3gBPKqEHK6FRBpNDW3AEQoYTQ zzHMgfoCyH7yzHSuhwCFbDvLG eNZua8LlB3hbNB4bgHUbJntuh KKqDBPofDcwx2CmhJBfZWSvt3 ZdwSDrHJhiUE0oRSE9Sh6rhMU tIWVxkwO5l8JeNZdeCZVlUlxf SSUnGUthbFUpFO1UTBNdmHLPP Ekwm3UfIKorJNJeLLLYB3XsUR ymPMApG32bs7RJv8ViIEElp0x xpUmfg4RimWHvWLqyPPXasGUz EBhszT0fOvNyh3vogHf7KEbfd rT7AAHwtp6qvJkztP6dAUuml9 qzPQS8LWVodTVjiDNmMVmasGo olD3iXeKcOjf2OOgmERNaL8Wr J4XrdnW5CTRxRRbqXWCzQKCvD Qp9 Disclaimer (test p8hybROfVSFet4mvIRNwcXUiQ code = [id number]) zEwMzNcZnRuYmpcdWMxIHtccn BbLRufz6YqH9DjGtLrZChxtwA bIIXoKfxfkwxjCOUrQMQ7edUi ENYyMKhfBPAgHZfpWj6ucJJyc RcfRwPjGMUof0zzbyWYGHgzJf JoR005CIHgYEoqe8bpp9CdMJF gqTZou6A5CCHPwnfcdLm9iHqk A48pi6Q7UoldA4peWFRtYBObK 7WsXN3vXCEqMpn7NPE3XTK9CV CdCWHmP4HkZL3jPJVlgOIeFRt 6s1iueYreUZRjNJC4t8kzLVjh pkNeJC3cmo0jhAs2u5khenIgL EWlMDNcfTANAXJoN6BtiFrkGd 2ztXk8oUlhCrjbXMM0Kzt5NV3 xcz00ipu6xIprPEQjbdeaXtC3 TGfmNBGmxwhcUWl8AAfbYALtl TP9VVUgiVLhT9MoVVHiGG2qxg i4DZP7FKkcVTOeKmO8HARpoVI dRHHazDqcYHqsr839FPP2LiTi TZ2mM5Vwq0V7lV6qbXOsWZZlo ZFkCaRyFPMqpt6gmYPaOGods9 JgWZB7mbT7aRAgxBMpHHIrUG8 7Kaqjb6RzDobwb8IuY43gnZN0 RDowb5wpXW4lMhS7iuHcLWgzo 9knuQ8jEbX1XPkaLI3xBL4mEP ZeaZ7fqacaOVYpJcWmredkOGL srFairsFgHg2smOvvYKU1BRwd V3wjnH7jUlQ6ECwfU8ybkK3kW Ze8MNygsCM4VTQbbQ8rRM4jue ydy0akWHneZRozJODecdI6lcZ 4KSWbfJToX8CyxY9nMVVgGR4l djfjh6bdMJC1CRgkQZGqGGY6C vYuUGIqo5Ythtc3LpEam0AjeU MoJWgoI49jo913NZQpldAkC0s wbGFpblxwbGFpblxmMFxmczI0 LPZgxuLtn7DvPLLpPEV9YBcdP WzfuNOlWVIsiNdqc0usP4LqpI FyXHBsYWluXGYxXGZzMjBcbGF uZzEwMzNcaGljaFxmMVxkYmNo BYUiJAksO1mmApDsB3TtLBGpV gOdaMUpQ8rdZOniosYuJGJqhr AojVY9VDygV7x2JHKwjsLkrUl 2doJdMyIvSUJjLFG9CZibjWAz PEXdf9LuhkqpfETvWu7roDHoW TJkiR7hWVScQIKcMGrmKW6oiH y1IFACiSUneKXbOzXTDSXbMO5 7jhGiAZJJfhhen0Z0KDmiPYEv k8VmiDQbP7nct1CyNZDkm50sF X2ip3R7n2krTOB5SQ7fy5SrAT WuwRPsxVJjRFShk3Tohtyqj3M xXXWblvDtq7WbBBDvliSqqLZw ZNBqzqBqof0eptNcTAMuQHDqW 3DdkepauKeqfbLvIDYqoo3eqt IsHOK0CUSWXIMoNNWnb1ZasP7 atNNGHRA5iSMsbw4frkOQqBXe XJNsss21NSOgOB0rF9fbYJAuP TEtwtRccWYyl5AtOCGskIY7mU PvEO4VLtXAb37eMJKiPRYAzzE lMPRazLlebEB3dwQ3mJ7sBQbP REEpLlx+BLGzSKVFYQOyEE1mc yYsy7NthqZtwXunGHQzoBDes9 FowCRyh6AwgZfaw9CpoLAkxEG fGX4pURPigespVGAxAFGWGtNI IFSnynV6c1NnWTJtHVMnZIQ8u Gcsrza5WNSgoM5eZGDzE2xlpq pfOChjRRIqg3KjbG4azRKGlGR bn3TusSCddQOEjHTwMA4iovAf GBnRTFjBMGE9jyMrISQhp7BdU TrvM8xbH03naJuzoIt4xDG8UW U8mE7xZjo+IFxwYXJccGFyIEF jkNRazPYeSBVftNwcasZtR1Na hfHpcR4fhKPbbwFqNP6pMD1hU 8Z8sCHgNMEbnvMlg5pvTIrznf VdMaTyehNbTLKfQPveAWZhz0M lTLqsGKL2HYpsaiRnbaOkmSJa xctyLRODDGMFjXCqsGSpRRZ2Y DgbseDhliLhRQ9xsA3laNjfoZ 7fcAMqaIH4lwjyKGPgPFUlxGv mUBOaQY7pcAJyDBSlleTQvOcy jVCxdK3vL3WyFCWwBRLbei9vJ AGegZ3uDBdme0TrhuzlWRNfXG OmUBOeloWmgv2qADScgWQDHL7 XPQzvaSXfk1DaooKoX6iITOO7 NUQwNjYwMjgxKSBleGNlcHQgY RIoqj62EARmeK3ltAedOXNjrJ 5gaN9zjWgmcX0fOjIcCdFhZCk wXB2vCSUnY2vesADiUAMzZUIg B1qdExLxkU2qgWhzQIhuCxEvB uTuJEglJMZ7cV== Embedded Images (test code = [id number]) [facility] [id number] 16:43:01 Test Item Value Reference Range Interpretation Comments Case Report (test Surgical Pathology ? ? ? code = [id number]) ?Case: [id number] ? Authorizing Provider: ?Earnest Nunez MD ? ? ?Collected: ? 03/23/2022 0936 ?Ordering Location: ? ? GI Endoscopy OR Department Received: ?03/23/2022 1143 ?Pathologist: ? Luisana Willard MD PHD ?Specimen: ? ?STOMACH, 1. Antral erythermia biopsy, eval for H. Pylori and intestinal metaplasia ? Final Diagnosis q4pedCTzPYVer5irWGPmiWEdO (test code = zEwMzNcZnRuYmpcdWMxIHtccn [id number]) XmIMlvsApbQMUrLOKeWQ1nyGa hpWo6gSzfHYNefjZ0lMReIUep o4sjJBJ3v5ookuigFIOfRYcxV m3ruTJkhXumTsMpMETwCOp6dH 65VRTalA6qbPDfNTx4QBQktQP urvDaUxMfVLZjmFUaiZH3DVTu NR4ttriuVFyyEWvzTGUpvsH0X CSfhCLbQ5IhUXRwYE3qkmbeBU F6ZTxwQFHdESF3NvTsAFBob7L rdzw4HkHhfHIoLWfsuVVogvbl pvHiBHDwkjPNMqYSUE3UYXWFQ WKFWJ5AZ1odnBVtZGEpEE4oT6 KEQDDDQoRJVDSFG9UsJ1eWTAX HQVOMIJhVDKALSVPUDp3KKXLX WVxwYXIgICAgLSBOTyBJTlRFU 1UUMaRFWJ3DHFLZDPMSCXDfL6 VmXRiCAVdVL0sWUPvYNT1HEFY PCJHqdHWjTXQmUZ9pTg1eYH5b BUmQP3SXQQnCV5HfD7SGNH3RJ 08SRXhYAL3OALNYPNFuzDFbKI GcnvYxgYRlGGrhvEbeNAmda46 rcywgTUQgIDgvMTkvMjAyMiAg RSX5HtQdHA7spGTdZSZehuTkp LOzuLkfvcPdMOjmf5DkS5PoMp AwMFxhbnNpXGRlZmxhbmcxMDM dREH4beCjRZWdWYvxXULzETok Sz0whMOetXppKeEmIXFwl4ctt vSBLBfhLwQxZ909VGBkOCofh0 vlv5XuITMkkKGoy3B2UBBMdao abMe2h2efRuDhChM8hKRtLEec Q2zklxSxwUXoJ4EoeTBaaFx3t BepG96zn2N2KxjwX8adUQZmWK AxO5EwSP4rLQUeIqu3ZMQ1DCI 9XQUhSMOsZ4NpAG9pIJCriUAl YTv5i3pmrBraMWOrPIT4e9hzX OsvouZ1IZ5nbp0woGm5l0tjun MdDVEpJABcbOMSXMQiL1IkeBo gPn9agAp4sCtiBoyxRKO0Ppp6 UP1kcd07ier4iBbrLXHfinovY gU6RKbdJSWyeqekPVd2NQsfKT TfiKB4NUXxsZYeI5RmKCDfRX4 gjij0JRM4XFtdADHwSlV6MMKk zOQmVBHbtInbRDsvw970ZDC6W oLgPS1aS1Mxq6Z1dH5biBDeAY UkgMAkZgObLLMqzu4itYQqPHe iv4DmMWX3heB6dESmzAExQPMm XM34Kenbl2BxYnmcOBG9VUFyw yEvn4Niy4ucYsSfzaKjF4vbS7 UwOAUxNGXnELXoQtBmxkWyr0N bt4RbuPWpwBo1t7mcQXQpBTSa qTjti4ibODJ7BNYwY7X2wCBtn 3wkYTmtCMYhtUO2gvG7STKixS RwH0SmuT5tQJAbJU5bwku6e7b cOQK1JIdvQEYqKlT6cqR1DSHs iJKlTEKqaWmjQTrtf510OZC9L hLuMNCam1UvT0WbrHgiZ00cqA huB21eQONgwAzmbG2zgHsemO7 cZjBcZnMyNFxxbFxwbGFpblxm MVxmczIwXGxhbmcxMDMzXGhpY 7okKcSwEFXofHuaFDwrj6RgOA YxXGNmMlxmczIwXHBhciBJIGh xykHfqDTog46wGBbyeBPxIQOm TQvvKRMtcMroh1NaU2ygBF7dR 7LtkFBrfaOddfViRPklXWOhk8 z6lDNpuDwxy7IqcTJnIE57guS hEZAjYJH4OCGkw2plSE04fymx RyDqiF53nqHtldHmORTlt2yfD 1kceOVym3Ncz4RlneRxRJyly0 AuNI4kwTUgdrktqEX9HSMkySG enkJlnaB4iTtdVWAagR1mnQ9u aYodnT6yVdHrVmYhBKscXP8aT ARyE4eugXWbJNMpBTOjG6axBc CjqG5jqJngWwiuhfV7DGXtxj3 9 Clinical Information Chris Joseph is a (test code = 61 year old female [id number]) Gastrointestinal hemorrhage, unspecified gastrointestinal hemorrhage type [K92.2]: 1. Antral erythermia biopsy, eval for H. Pylori and interstinal metaplasia Gross Description z3mohSStIKCqoACIRPByBOXgX (test code = G1zwWuopAf1hDuuKBBvluL7vE [id number]) BlZNcuq6fcAKC2z6enhmRDOzp vHOBmEWbdQUEwuihgNcS3ZJcc FYHkuvrtSSt5YFszDRYcbCM5A DRgdBGrO6QiEQPoVS7dsup1DG A0RBviXCEvEsP5OKWwAvNbDnx pORa3ICLjleG2Abd8LAOzVXEo zRRei1O1ZZmlhgsmGKBswIFzD 979GImns3LfmNSkQQthiNBcAU ETQqpcVydxrZmun1HegAFtAHb zQUShCCIsYBmlxdwxPEg9AWOm HVwuaWKxBF2lrKbcMtnfrYeys 2VjdCBcXGlkIDUxMDAyIFxcZG JuPH0UEdSqDQTwHRw5WGhcPJn 5BOr9MF8IFaJjYTAvUJsdVOe4 EkRfDNg1JCdwDQ6WWQT2CRH2N dJ4TABzHJRiRKMyONm3BZWoBA xmIEFyaWFsIFxcZnMgMTAgXFx qmVHvUF5fpFbfgMRpkjwpbtCv WCPNWNGIBHWDJHWejNWhKW7ZE IHfWHvtCYZfzGDJDVX6IL9uDI ANClxsdHJwYXJcbGluMFxyaW4 hBW5WTMk0enYoGVCxRuWwC5Ej M5naFN6fVAKyqjGvLUZdqTUuQ XEwvdNpu5AtKExewkGaLNLuaY VkIHdpdGggdGhlIHBhdGllbnQ agmVkWO3gRFLEEHHdeK0gKORf IvW5c31yA8onMUTyvXCucOKjw vj2kLIpAFCscK9ax6boTGM7SB veZz3jGAjfCYQ0iN1yiLYxhsJ hwR64MWM0kR1qbCAtTRVdeTjx w1xlNpRcauHpA14ez4rynJGup 5CpNrU8GT3lqNeaicKhtoTdR1 JwGWBhi38woYL1sOBwfPPyTgE tN38zqcUkRSroHA2qgI4wZJFe s19hVT0oNLExKGZxHZXhbLPkv pStvyXdiUQrzXKozK1wwbTvh0 3eSWLyRUC7OYFbNFK3KTMqCTI rcJSnujFsV6mwZFrfsMErNpHR jSOzj8IwN8aoUD8isVMqFlveb DYyUZHehGngp9NjhPJaJZEmi2 GroOVwRGtyQB2lZSS0Sh4vjPP ePLXkczB6x2WgURvhZNOrQwqa FYTpZFcrxQLiOI1QUYFucIWJB Lixg9IiKYhzUJHsEITRP3UbHM zkDQDhL67bc3HTy7QkXOPfi3b cuFqsv7LbnBPbIVijIDEeaKIg WKddjA4bCgFsj4aptCc8MNnir kQ8DPZvuc1ysRrezZ9kNUwrk1 rySIY3OLRjrLXwhYDiIShucXc acQ0eIfEpYue3EQytBLAbF2Sf N4AkbyW5JMAlBLtmSAHdRCYoV Qp9 Disclaimer (test n3lwyQDpCUYpz6xsUVHcvSIlA code = [id number]) zEwMzNcZnRuYmpcdWMxIHtccn IdVLqhc9OnC6NqRtOzIWdibsA eXERrJcczdqhwDQMmKZL6qpLe PHAhMBvkQUYyGHtdDu8ttBDbw UyiArWqMCWfa8ngpvYJFSfgYy UkR013KHZfMHvlk1ilr4HtCJL fcNPtc1L7MMYHkivuvNi5bJjj E03nx5G0MpnhO5fbIHOrLJPcE 9BrBJ9vMCWrYhf7IIR7FEU1UB MqVFWxY6TkVF4mQVAwaEFmWRa 0b3ikhMckOSEoWUP9e1afPGzq qfYvFY6zxr8qeAd2k6wyluNuL CVyIOBqgWBINGZrA2DclFjxFl 8aeUv8aJzjTakjDSK0Jwa7LP7 crk28esk6yDwqBVAjstkuKlR1 PZmnDFYgjgpkQGe9EGacWJDln FK5BKSkcZAkZ1WzMPCdSY9hea m7TRQ3ZEaxRUSbEmY6JZKpfAB gQMAcjDctFGgsz806GGP7IsWn MS7jQ8Qde4X7xO5qoFAtPAQxp FMvZfSsTIYvjx0nxPDcQKihc7 VtSVN9msD6kLSviJYhJGIeUU2 8Wljpj1ScFzzhe0LbO41azPY4 MHpof6vwCB8oKbW7ivEnSZmpg 9oxfV2pEmU3XZdbTW0bBB7fYV SkfD8axwmqBFNqEiHhyhpcLBJ cxOeuelGkYt9jfNinBWB5XBzk M1fqyL7bIpZ0POspU8nobI1sK Sq8LYmocMT7AVMytZ9cRG6mez nzn8hyLGfyOImvWIQyvhU9pdG 1PMHwsBPgO3MmiH5qERYmTN7z poggq2faSCK9XRwpEYAaQPK8X wHsOEHxh5Xdxno7IjQqt7NfvZ RjRWnfW12gw408YYJwhbMoG7w wbGFpblxwbGFpblxmMFxmczI0 AIGbauJcr1SbJHBnFJP2KFpzQ ZfbhFQmBQRwqGwds0iwA1CbuK FyXHBsYWluXGYxXGZzMjBcbGF uZzEwMzNcaGljaFxmMVxkYmNo BEYxYMlaD5znGjGnK7YyCSApB eNdgZGlN6hfPReemnOqWCGlln PhxCY9LMatX9j4BYEqhcNuuDc 7sjCsOqHpMWGrVWU6RGbtbEQc ZKWxe9NiiapvgTKeKv3jkIIxI MZgcE7eAXIiAPNrBGigPF4cdH c7RAJRaLWihOCtFtSUHPNoHI2 7naIrCCYOutkmb8H4ZUykIVJw s8DfeEWvI3zaj4SsMGRbf29cF J2ey0I4t0xxWHX8VE1yp4RmYM QauAOlaBEvNOXgg8Gmstmpn8P nNNEmwbHns6AiYBPzzrMzbDIc TVYwouSurc5cisTwTGYqPFGlF 7NqjugorUggfsCgRLQroj2fpj XdSCS7CEISRPAfZNBma5XxlF1 cgZZPMUB3dXKzut3tuzXWcITp GVLkze49WDMlKM4pG6tqMGTqM WFzdyQwvYWed3MtPAMmmEL1yN TrOE4NBjVFh26pRKTtKHDCveX qAMRflEonoBJ9mhM3vP8pAVwF REEpLlx+EOObCMAKWALiNE4cj rFzy1WcraBinDrrWKPvxBAod8 GsmGYcu7EmlTiaz8LnqIHoyDT pPW9bMHZftinoWWKuMPQSBnQF HWUgrkY5c9KvLCNnBIOzPBL1q Xelnsj1ELRlmK9jBPZqQ8pono euWFjrYEArq4BctR4exBRUpWV jz2ReeAQxhYVOrCCbOY0fyrXz BTrKSFsOAKZ8pdJrGMYqd5AqS QbiM5sjU99wmHpwjNk7cDT4OI U9sU3bGqz+IFxwYXJccGFyIEF sdOMbjDNqTZJmfBqyxxZfF7Fw qbCymY3ygLQjvbKzES5dUT0yG 2M5fCHuQCSkkqKoo9bfPPnhfd ByCmSohkVmSNKpEOgiSDHzd8C sDUgkXCN2YJclpxKvdxTurPIa oisgJSYHZTLVtJMazPXbRGF6A UyismWdwzHkJA6hiK2lhJcucJ 1fgRTqwDJ0ssylKKQmDRZxvHy hPHUrXP9eaOGlPNXhjvQHwYrr wYNlxU0hL4SpJETaEIJmlo2zO YKjjG9bDSrww3IidqaxGJZjFY QoQSQnwkJquv5lUZCldHPDTX5 YWAaeuNJxk7TveePmF0wOCND9 NUQwNjYwMjgxKSBleGNlcHQgY GOjrl91IAObvF2tjEayXGLkbY 0naL4uyAfooU8nQyIaOoJgTOl gFV9mOIHsG5ufqXDdYJNeOXPj Y9kwPcOecL9mpDzdLUfdExEdT zCjCFqzBZF6qZ== Embedded Images (test code = [id number]) [facility] [id number] 16:43:01 Test Item Value Reference Range Interpretation Comments Case Report (test Surgical Pathology ? ? ? code = [id number]) ?Case: [id number] ? Authorizing Provider: ?Earnest Nunez MD ? ? ?Collected: ? 03/23/2022 0936 ?Ordering Location: ? ? GI Endoscopy OR Department Received: ?03/23/2022 1143 ?Pathologist: ? Luisana Willard MD PHD ?Specimen: ? ?STOMACH, 1. Antral erythermia biopsy, eval for H. Pylori and intestinal metaplasia ? Final Diagnosis i0trgNLhOGEiw7jiTRYvtELbF (test code = zEwMzNcZnRuYmpcdWMxIHtccn [id number]) FyYIqbsDsuTPFiEXVzKQ0ovEk otVb9aGvmLMZsjnH9xGJqGBkp k6xeQVS9a3hjgiqxYOEnJOyjF u6ojQIevOcrQtRjJNDrYJi7bU 49BIWnwE6buLOtZDu6PETiaFP iibStJjFhYXSsfFSckEW3EPNj YT0hrkxdPUkbSVsrBHDvjaK5M LYbcVOrP3KhDUFwJA3nexdzRF B1EIzyWCBoGSW3YlRzFPOzn5W rgsb4YdIusVRtDClaaBFnnyif pzWsQQNjuxOVZnUHVS3WIAJOS FUYKO6OJ0gesUMdAZHjIV2qX0 TEVPMEEzFLCUJLG6QtL9pPZVM STTFEGPeGPJXZOQPIQa7KDYZI WVxwYXIgICAgLSBOTyBJTlRFU 0LTAnCTWP0CIOLUMLWXHTOaO4 CcHLjPRLvEE6ySJBkAIX9CNHR PQZUepXWwNYKeKS2uVs2nDC1i XZgGP8WQYZqHS0BfN4BSRM0RR 15EZSdXAI7RVQXMTVAikKJxAX BtyoAlcWHsAHdiqTbkSQmgc23 rcywgTUQgIDgvMTkvMjAyMiAg JCF3XsHrVL6zmIKlQKZzhvCma CZbtSsngfTiAZlgw2CzD3AcBq AwMFxhbnNpXGRlZmxhbmcxMDM tSAO3goLuNEDwQQdmJIOsCNfs Gd2ovLBauEhiWjUtSTIhy3ggn oCYFOxmSrUjX946WGQnGMlah9 quu1ZpICRkiWAak2P5BFMMudg apQz3v2ijKtScCgV9ePVfTHld V3slnkDmnBZbT8IprYXkbNh0y KpdU48gw4G9EdhwG5dnRALlTQ ClK9MnYD7zLTQeEyp0ZMU2VJI 1SWLoXLXrJ5HaDD1iSCWovJSd AHs2b2blrLxjMOPqPHV1o6emN DpvqnS5HO5plw3qgUk6o4texg BjBHPlDBWfdQTNCEEjC2ZhsWo kPi4xeDk0qCbmPobbAAU4Mba3 QW6oze52oos6sDypQIFlnyltI vO6ERrjZZQsidyqKAq6JDesXE FpwXM2GGNbnTZfI7UuYLKqJH0 spkf6QUP9ZSpnLNNpFkZ0CIDa rCXfCSIyaCbtMWrbt125JUT7F jZsSF7fE0Jye5M6pU3kdZCtWR FdmXNdQfHhKQThvj5etGAuKHd ie3UoUWF4nvU7xIGpvSDtAWJl DF25Yeimc6FqInmcSNT6TTOmm eIel0Rcp6eaYjDxwbNnR1ymD8 QwAKHpJOEbRWOpViKmciLwh8C eo4ImjUDdyQg0p2zyOLCeAAAy mQszy8rmYVF4BSNtW9G3tLBxw 4xgVKfkRXYxdXJ6nzU1UJWuwO MaX5DreV8gSYMpXT3grmn3q4h xRTT8SYfdCSQaPsW2gtY8WKMc eUUoJDIoqKocBKdkh945FJP4O bPnWAAye9MwK5JbcBirW50zkY gdC29fRHMpqNedgR6nkOieaY1 cZjBcZnMyNFxxbFxwbGFpblxm MVxmczIwXGxhbmcxMDMzXGhpY 0dgPzTdKTNmuTnyHAexn5LoDR YxXGNmMlxmczIwXHBhciBJIGh zlzHycHUxl16sTRzqmDCyVXOf OCaaYMTtdCqop0HaW5soIS7uU 0WagUAqkrMmjbKzBWcrUCQrr9 v2bNNhuSbyl6OyyPPsNV95jvJ cSKIdXOK4IGVkq4uaBC17ypyt PyLbaD65opQwzoRuJRLmj4xjG 5nccJUor6Pbw7GbsfHcAFlpx0 GrVG8kpMMaexglfJQ9NZYslSK ateLwtbC9kZneCRYleG4pgQ6e wNqprN6iAyXqRiKgQSlnLH8hT UXtA8plvWCyYUQjLJChY1nkXj ArvA5aoZujXycdydK5ZBReha3 9 Clinical Information Chris Joseph is a (test code = 61 year old female [id number]) Gastrointestinal hemorrhage, unspecified gastrointestinal hemorrhage type [K92.2]: 1. Antral erythermia biopsy, eval for H. Pylori and interstinal metaplasia Gross Description s8nqfPZbPWCvyFABPLHmRVZyW (test code = R2goUgubMe6sRteHTNznhV9jQ [id number]) YjTRvkw7qlXGF1c7lpkkMPSct pPZLwDAkiBPUcnanuGhA8XZzm WERpzyasXBz0BRshFUZfkYJ4H WUeuKOiN0QxUQJwDM6lbxl5WR U3GVyjCCClScZ8QDCzFzJdJey uDXj7GHPsobP5Xhy6TAMmVMZw tHOdz0P9QDnbityaTUBfvRIuD 464QHjqa5DwhEJkPXkliFGuVX QBTimtQgmiqGsfk6ZzmXJvMGx aDSHqIAIqWCeqgdltOVr8HJVc JUgcpUPsAE5lnCsnObofpFclv 2VjdCBcXGlkIDUxMDAyIFxcZG PoWE1THfQjBQTwAAk3TRrmFRq 7UVe6LR6CWiZkFXYhQBkxKHs3 EvAzZNx3MTwhLJ7NRIV7RTC9F oA5NUBkMTZqZAPoFAu8KHAzQR xmIEFyaWFsIFxcZnMgMTAgXFx esAOmSK1amTummUJacfpsxnZw PIVVPTNKCDJATLZkqEMcNC3ZU RDsTLtjOBRbeJZXJPN5FS1zRN ANClxsdHJwYXJcbGluMFxyaW4 nWD7YKUl4abNsLEGeYlHqX8Im E6qnXL2aWSMigbHjQIVwdVOoN ORlnnLan0QoDRyspcAcEHTlwI VkIHdpdGggdGhlIHBhdGllbnQ cysWhRI7rTWWSRBLfoI0gXAZi DiK6f67cP4uvVVWtnBTewJFod dk0vXMdLFHxuT1qo5mgMNH2GT vuLf9iQJtiBTZ5zF1rpIKnabG bhR46RBD2fX8ohQEjQHQrkVrl t4cgItCdnzWxN62ck5hrcHAof 0HxYaY1QL6gsYcixhObouHgM5 FkQXGqf71umOU5dTBzwJRaCpW qF01embLgMSadDT7xkE9rIAKo v57pAJ9iYXCfMLRyBHQxuPYaq oNjzzLnoPKlkQVjfX6lekRse1 8aDCKcWNU3RTBtVST1NGPmCGV geTElymRyT2ldJQmntYMpOePR pWJos4CqR1wjRK6vyINwBrzyv TQuQCCluKvgd4PwsSZhUTUuz4 EsfZFmHKnyIG3hHNT1Op4vfXT nZTPfbuO3h8YtONnaJDMgXadw RLDnULtpmJAfMF5FUTPeeISBG Bggl4YmFRfjYNInEUZFI9KqYC lwZLDjZ85zl9MPq5UwMNOuh7i rjTcnm6ZqyZFdCUmfTBDgvKEf KMxmhV0pZwMjv2hieZc0AIjcy zU3VMSjfm6kvHntkW5cLTvor6 epTTG8PXRtvFJltUInONaitGh laY3iPhFbQhm6KAkzWEVsV8Tm B7VzgcR1DLFdJLetOJTfPXJkJ Qp9 Disclaimer (test h9nrnSHxQFDlq3wrCROpaAKvI code = [id number]) zEwMzNcZnRuYmpcdWMxIHtccn CsCEggw1OpP3VrIxHtICmlvrZ uTRVzYdsotllaWRPeUGN4bmLg IPNoTQlzHYKaTKljPq7tyXNpd QtrWiApUBTjq0pswxIDMVwwAl WuL597MBKdWHhel7qwe5WpKLZ hfPTum4K5YXJVxculkYm7vRrj N89ta1C0OwfzZ0jiGWMqEFRfS 7TmTL3yZHUjKwr1ZBX0MLA6GI LsYWTrP3WyJD0pVDGjcRCcQHc 6z5hkeTthTZCdLNG5q2zkICdv wzRbYP2hvc1lcHu7n4vmzvLxF ZJtMBPcvHKRLGIqJ2LnqMncCa 7ctYz8wJupGfgjHTK6And1XX2 mkr00ufd5dLutHSIutwrqCpS5 NOquONNrnufiEWy9AGcnGRKwa WB0SUWtzRQhG3XpSUYtFH0dzc t8IOO0XFvpKAKeSgW5DHDafAR sCMCbyYfmMRqtx856PWQ1BfFf JV7sR5Ckk4Z0yB7rgAAjKEVrs ZRqTwBoOYKteg6iuFBdANkdb4 UrAKA5xkC8cTXsaIOwSCSzNT4 6Hnson6ZlLbdop5BrH04ciZW5 ZNpkk9rjGK4cSmO0bjPgFKjoy 3stwH1eFmY4CTreUT6eZI7oUJ OtqY9lyohhXZXnRaJmagpsEIL vhZimqsRsTp2jlZbaUES6ENmk L5syrY0vKjW8WKcvH6tugA3dC Ik6PDskiQN4TNUkaK9bHM0wtl xee0iqNAvgHCeiQAFkhzI5pjI 1XQBkoWLxW4OyrT9uAZArGE5h mefyv3xjJAC0MEcqXYGpVZI7T hVbAZNcr8Ryxgh4WaHfx3ZtqJ BdUNurA63qp311NRSgqxSoX7d wbGFpblxwbGFpblxmMFxmczI0 WICfbpMvi2MsNCCwYTS1OLixQ EqnvVIsJTJxfBbrc6bsZ5LzdT FyXHBsYWluXGYxXGZzMjBcbGF uZzEwMzNcaGljaFxmMVxkYmNo PVBxTWtmL5hyUoZmR0VhCREvH iJvzKMmK3gzAKfbcxRaQVIcjv JqaIE7ZAmmR9x0KDNcimBblAe 8eqEpWfGeYTDlGFY8VYkqfQWa WEYrt1GbgpxxqLNdQc0siUSgJ CJqrN6gKAObYJPdNImoCP4geW t3QMEFvRJfyBLsCeRDYFEcOJ8 6lhLeJZGYidjun0H6PGsnRMCy q5JmtAXlQ2iqs1YmKHCmh96zM C0uz2V0w5wkVDH8RO0zm6OsWH PkaXModJEeDFGva9Waxaezj8E yDZTytqNtv4AvYMMvgeFvoLFc TEJtfaFfof7rqqBzWWEjTOFdW 5LucrusuRbbxaNbYMObfx2lwq CaSUT7RZISQTGrLEAhl5GkkT4 xwJECKNE7hWWkkk1hhnWFqMIo BLQabh20MNAaNJ0iI0jqCWVlX YMtnwLhhYGdt2NtLQGrfMT7yZ NwNB4QJcOSx94uKIOiNUNDgnM dFGZsjDcwxQS8nlB6zV5rLZyZ REEpLlx+IYXpLNCOVFMhFA0vj pWqs9TicyOpnWqfQLLgtSAko7 OhaPFtu4XqdJtam8CcbGFnqCS fWW4tVQAigfrkILPnQAPEBtSP CKUwnpB0u5PjLZAmLFMcMHY0r Nroyfs6IJDzbC2eGMRxV2mvpr pnFOmmCTEty0LcsF0qnDLOoZB ab6ScpSOmuTRLuZDgYG1cliQl KThLBVwLPZD5laLfBCOoz6RcT LgpK3gzI16nqBvrfUb3aOG3IM E7sG1cDxk+IFxwYXJccGFyIEF bqPWooMWuFUMyoYzbbnQuI1Vd nrDgpI0srTUegjBpKJ1mME2xC 6I7yCDeQJGddfLlf1uwKDyijx PxMnPdqaMnACTgCUkrAXCdb9U aBUbcFTG3ARhbbrVpitPjuBGi xkzbEXNBRIVEdJAkvQPvDKA0X RstknDhquCsBN0fbM9dgStdpN 0kbHUnnGU2gmgiXLPcBSGxxGq mXBRtVJ9pcJAlRTZnngARxPhi yTLhmB1aH8CxWFPlNPHxoc1uL BUspC0bDWquy0JuihdlMLVmMA HmUKTruyYpth5mLRAdbGIHGH4 GRPuqqFNes0TmtyNlE6nGZLL2 NUQwNjYwMjgxKSBleGNlcHQgY ATgxe37MKHmhW7mnZpuJRZwcT 9suQ3veQiirQ5sNdQpTxWjOQb qJA0uDAXyM6irmKPjHVBeHUZn R3iyTdWsyI5gjVfdWXmvLoQpA xOjXYyzOEB5aC== Embedded Images (test code = [id number]) [facility] GLUCOSE (AUTOMATED)2022-03-24 13:31:30 Test Item Value Reference Range Interpretation Comments POCT GLU (test code = 5095501018) 102 mg/dL 70-110 Lab Interpretation (test code = Normal 63611-3) [facility] GLUCOSE (AUTOMATED)2022-03-24 13:31:30 Test Item Value Reference Range Interpretation Comments POCT GLU (test code = 4823217038) 102 mg/dL 70-110 Lab Interpretation (test code = Normal 75162-5) [facility] GLUCOSE (AUTOMATED)2022-03-24 13:31:30 Test Item Value Reference Range Interpretation Comments POCT GLU (test code = 5975932743) 102 mg/dL 70-110 Lab Interpretation (test code = Normal 16484-6) [facility] GLUCOSE (AUTOMATED)2022-03-24 04:05:12 Test Item Value Reference Range Interpretation Comments POCT GLU (test code = 3172144710) 89 mg/dL 70-110 Lab Interpretation (test code = Normal 51888-5) [facility] GLUCOSE (AUTOMATED)2022-03-24 04:05:12 Test Item Value Reference Range Interpretation Comments POCT GLU (test code = 9116727882) 89 mg/dL 70-110 Lab Interpretation (test code = Normal 71501-3) [facility] GLUCOSE (AUTOMATED)2022-03-24 04:05:12 Test Item Value Reference Range Interpretation Comments POCT GLU (test code = 5689918494) 89 mg/dL 70-110 Lab Interpretation (test code = Normal 94745-1) [facility] GLUCOSE (AUTOMATED)2022-03-24 01:56:37 Test Item Value Reference Range Interpretation Comments POCT GLU (test code = 7379081587) 64 mg/dL 70-110 L Lab Interpretation (test code = Abnormal 20700-4) [facility] GLUCOSE (AUTOMATED)2022-03-24 01:56:37 Test Item Value Reference Range Interpretation Comments POCT GLU (test code = 1940860724) 64 mg/dL 70-110 L Lab Interpretation (test code = Abnormal 90875-5) [facility] GLUCOSE (AUTOMATED)2022-03-24 01:56:37 Test Item Value Reference Range Interpretation Comments POCT GLU (test code = 5690320569) 64 mg/dL 70-110 L Lab Interpretation (test code = Abnormal 95858-2) [facility] GLUCOSE (AUTOMATED)2022-03-23 22:07:11 Test Item Value Reference Range Interpretation Comments POCT GLU (test code = 3488520265) 142 mg/dL 70-110 H Lab Interpretation (test code = Abnormal 12749-7) [facility] GLUCOSE (AUTOMATED)2022-03-23 22:07:11 Test Item Value Reference Range Interpretation Comments POCT GLU (test code = 5470892500) 142 mg/dL 70-110 H Lab Interpretation (test code = Abnormal 76852-4) [facility] GLUCOSE (AUTOMATED)2022-03-23 22:07:11 Test Item Value Reference Range Interpretation Comments POCT GLU (test code = 8274887735) 142 mg/dL 70-110 H Lab Interpretation (test code = Abnormal 18696-4) [facility] GLUCOSE (AUTOMATED)2022-03-23 12:57:32 Test Item Value Reference Range Interpretation Comments POCT GLU (test code = 3990235692) 97 mg/dL 70-110 Lab Interpretation (test code = Normal 32871-6) [facility] GLUCOSE (AUTOMATED)2022-03-23 12:57:32 Test Item Value Reference Range Interpretation Comments POCT GLU (test code = 4329662019) 97 mg/dL 70-110 Lab Interpretation (test code = Normal 72322-0) [facility] GLUCOSE (AUTOMATED)2022-03-23 12:57:32 Test Item Value Reference Range Interpretation Comments POCT GLU (test code = 7484544509) 97 mg/dL 70-110 Lab Interpretation (test code = Normal 58013-2) [facility] 02:07:44 Test Item Value Reference Range Interpretation Comments POCT GLU (test code = 9342300789) 164 mg/dL 70-110 H Lab Interpretation (test code = Abnormal 73281-4) [facility] GLUCOSE (AUTOMATED)2022-03-23 02:07:44 Test Item Value Reference Range Interpretation Comments POCT GLU (test code = 6786066595) 164 mg/dL 70-110 H Lab Interpretation (test code = Abnormal 97266-6) [facility] GLUCOSE (AUTOMATED)2022-03-23 02:07:44 Test Item Value Reference Range Interpretation Comments POCT GLU (test code = 2241212534) 164 mg/dL 70-110 H Lab Interpretation (test code = Abnormal 37870-7) [facility] GLUCOSE (AUTOMATED)2022-03-23 01:29:25 Test Item Value Reference Range Interpretation Comments POCT GLU (test code = 3435016326) 64 mg/dL 70-110 L Lab Interpretation (test code = Abnormal 87643-5) [facility] 01:29:25 Test Item Value Reference Range Interpretation Comments POCT GLU (test code = 1671261233) 64 mg/dL 70-110 L Lab Interpretation (test code = Abnormal 77679-1) [facility] GLUCOSE (AUTOMATED)2022-03-23 01:29:25 Test Item Value Reference Range Interpretation Comments POCT GLU (test code = 7070454389) 64 mg/dL 70-110 L Lab Interpretation (test code = Abnormal 92028-6) [facility]-22 22:10:52 Test Item Value Reference Range Interpretation Comments POCT GLU (test code = 4431453288) 263 mg/dL 70-110 H Lab Interpretation (test code = Abnormal 62393-7) [facility]-22 22:10:52 Test Item Value Reference Range Interpretation Comments POCT GLU (test code = 2269142199) 263 mg/dL 70-110 H Lab Interpretation (test code = Abnormal 07926-2) [facility] GLUCOSE (AUTOMATED)2022-03-22 22:10:52 Test Item Value Reference Range Interpretation Comments POCT GLU (test code = 7992534058) 263 mg/dL 70-110 H Lab Interpretation (test code = Abnormal 24608-0) [facility] and Screen - ONCE Zeinger2622-29-31 21:13:40 Test Item Value Reference Range Interpretation Comments ABO & RH (test code A POSITIVE Performe d at [facility] = 20) Laboratory [facility] [place] [address] s 94123Hlat Free: [phone] A No. [id number] IAT (test code = Negative Performed a t [facility] 1185) Laboratory [facility] [place] [address] s 67396Kcpf Free: [phone] A No. [id number] [facility] and Screen - ONCE [id number] 21:13:40 Test Item Value Reference Range Interpretation Comments ABO & RH (test code A POSITIVE Performe d at [facility] = 20) Laboratory [facility] [place] [address] s 57419Jbta Free: [phone] A No. [id number] IAT (test code = Negative Performed a t [facility] 1185) Laboratory [facility] Blood [address] s [address]Piqr Free: [phone] A No. [id number] [facility] and Screen - ONCE [id number] 21:13:40 Test Item Value Reference Range Interpretation Comments ABO & RH (test code A POSITIVE Performe d at [facility] = 20) Laboratory [facility] [place] [address] s 27328Liim Free: [phone] A No. [id number] IAT (test code = Negative Performed a t [facility] 1185) Laboratory [facility] [place] [address] s 98568Qmrn Free: [phone] A No. [id number] [facility] [id number] 15:23:00 Test Item Value Reference Range Interpretation Comments ATYPICAL pANCA (test <1:20 titer See_Comment The aty pical pANCA code = ANCACOM) pattern has been observed in asignificant percentage of p atients with ulcerative colitis,primary sclerosing chol angitis and autoimmune hepatitis. ASCA+/PANCA- Suggestive of C rohn's disease ASCA-/P ANCA+ Suggestive of Ulcerative colitisPerforme d At: [facility] [address] [place], [place] [id number] ra Kevin LEMUS Ph:[phone] [Automated mess age] The system Black[employer] generated this result transmitted ref erence range: [...] 24.9 code = ASCAGG) Positive >or= 25.0 [id number] 11:15:00 Test Item Value Reference Range Interpretation Comments GLUBED (test 95 mg/dL 70-105 N Intravenous adm inistration of code = GLUBED) N-acetylcyste ine which resultsin blood concentrations >5 mg/dL will cause overestim ationof blood glucose results . Do not use during intraven ousinfusion of N'acetylcystein e. BASIC METABOLIC [id number] 08:19:00 Test Item Value Reference Range Interpretation [...] mg/dL 8.5-10.1 L = CA) CBC W/AUTO [id number] 08:10:00 Test Item Value Reference Range Interpretation [...] = BA#) 0.03 10 3/uL 0.0-0.1 N [id number] 06:06:00 Test Item Value Reference Range Interpretation Comments GLUBED (test 114 mg/dL 70-105 H Intravenous adm inistration code = GLUBED) of N-acetylcy steine which resultsin blood concentrations >5 mg/dL will cause overestim ationof blood glucose results . Do not use during intraven ousinfusion of N'acetylcyst eine. HGBA1C - GLYCOSYLATED [id number] 03:08:00 Test Item Value Reference Range Interpretation Comments GLYCOSYLATED HEMOGLOBIN 5.2 % 4.8-5.6 Pre diabetes: 5.7 - (HA1C) (test code = 6.4 Diab etes: >6.4 GLYHGB) Glycemic contro l for adults with jose betes: <7.0Performed A t: HD [facility] [address] [id number] monae Neely MD Ph:[phone] [id number] 23:20:00 Test Item Value Reference Range Interpretation Comments GLUBED (test 121 mg/dL 70-105 H Intravenous adm inistration code = GLUBED) of N-acetylcy steine which resultsin blood concentrations >5 mg/dL will cause overestim ationof blood glucose results . Do not use during intraven ousinfusion of N'acetylcyst eine. [id number] 16:38:00 Test Item Value Reference Range Interpretation Comments GLUBED (test 84 mg/dL 70-105 N Intravenous adm inistration of code = GLUBED) N-acetylcyste ine which resultsin blood concentrations >5 mg/dL will cause overestim ationof blood glucose results . Do not use during intraven ousinfusion of N'acetylcystein e. HGB [id number] 16:14:00 Test Item Value Reference Range Interpretation Comments HEMOGLOBIN (test code = HGB) 9.1 g/dL 12.0-16.0 L HEMATOCRIT (test code = HCT) 28.9 % 37.0-55.0 L - CT ABD PELVIS W/O [id number] 13:47:00 [facility] : 1960 Sex: FPatient Name: CHRIS JOSEPH Unit No: [id number] EXAMS: CPT CODE: [id number] CT ABD PELVIS W/O CONT 60319 EXAM: CT ABDOMEN AND PELVIS WITHOUT CONTRAST [...] No extraluminal fluid. IMPRESSION: [facility] [place] [address] 1960 Age: 61 Sex: [place] [id number] Loc: NC.6204 1 Exam Date: 10/16/2021 Status: ADM IN PH: FAX: PAGE 1 Signed Report (CONTINUED) Patient Name: CHRIS JOSEPH Unit No: [id number] EXAMS: CPT CODE: [id number] CT ABD PELVIS W/O CONT 43764 (Continued) No acute abdominal or pelvic abnormalities. at 1347 Reported and signed by: Justa Winston M.D. 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 [employer] [address] : 1960 Age: 61 Sex: [place] [phone] Loc: [phone] 1 Exam Date: 10/16/2021 Status: ADM IN PH: FAX: PAGE 2 Signed ReportCOMPREHENSIVE METABOLIC [id number] 08:59:00 Test Item Value Reference Range Interpretation [...] code = ALKP) FE W/TOTAL IRON BINDING [id number] 08:59:00 Test Item Value Reference Range Interpretation Comments IRON (test code = IRON) 124 ug/dL 50-175 N TOTAL IRON BINDING CAPACITY (test 307 ug/dL 260-445 N code = TIBC) IRON SATURATION (test code = FESAT) 40 % 11-46 N VITAMIN [id number] 08:59:00 Test Item Value Reference Range Interpretation Comments VITAMIN B12 (test code = VITB12) 352 pg/mL 254-1320 N FOLIC [id number] 08:59:00 Test Item Value Reference Range Interpretation Comments FOLIC ACID (test code = FOL) 35.90 ng/ml 3.10-17.50 H TSH REFLEX TO [id number] 08:59:00 Test Item Value Reference Range Interpretation Comments TSH REFLEX TO FT4 (test code = 3.36 mIU/mL 0.36-3.74 N TSHREFLEX) [id number] 08:59:00 Test Item Value Reference Range Interpretation Comments FERRITIN (test code = BURKE) 132 ng/mL 8-388 N PROTHROMBIN [id number] 08:20:00 Test Item Value Reference Range Interpretation [...] and/or recurren t systemicemboliz ation. CBC W/AUTO [id number] 08:11:00 Test Item Value Reference Range Interpretation [...] = BA#) 0.05 10 3/uL 0.0-0.1 N [id number] 07:33:00 Test Item Value Reference Range Interpretation Comments GLUBED (test 96 mg/dL 70-105 N Intravenous adm inistration of code = GLUBED) N-acetylcyste ine which resultsin blood concentrations >5 mg/dL will cause overestim ationof blood glucose results . Do not use during intraven ousinfusion of N'acetylcystein e. COVID 19 INHOUSE [id number] 04:58:00 Test Item Value Reference Range Interpretation Comments COVID 19 INHOUSE NEGATIVE Negative Negative re sults do not AG (test code = preclude 201 9-nCoV infection [id number]) andshould not b e used as the sole basis for treatment or otherpatient ma nagement decisions. Nega tive results must becombined with clinical observ ations, patient history , andepidemiologi gregg information. [id number] 04:23:00 Test Item Value Reference Range Interpretation Comments GLUBED (test 79 mg/dL 70-105 N Intravenous adm inistration of code = GLUBED) N-acetylcyste ine which resultsin blood concentrations >5 mg/dL will cause overestim ationof blood glucose results . Do not use during intraven ousinfusion of N'acetylcystein e. [id number] 20:25:00 Test Item Value Reference Range Interpretation Comments GLUBED (test 105 mg/dL 70-105 N Intravenous adm inistration code = GLUBED) of N-acetylcy steine which resultsin blood concentrations >5 mg/dL will cause overestim ationof blood glucose results . Do not use during intraven ousinfusion of N'acetylcyst eine. [id number] 18:16:00 Test Item Value Reference Range Interpretation [...] LDLC) 28 mg/dL 0-100 N BASIC METABOLIC [id number] 15:24:00 Test Item Value Reference Range Interpretation [...] mg/dL 8.5-10.1 L = CA) LIVER FUNCTION [id number] 15:24:00 Test Item Value Reference Range Interpretation [...] 45-117 N PHOSPHATASE (test code = ALKP) [id number] 15:24:00 Test Item Value Reference Range Interpretation Comments LIPASE (test code = LIP) 108 U/L 73-393 N PROTHROMBIN [id number] 15:18:00 Test Item Value Reference Range Interpretation [...] and/or recurren t systemicemboliz ation. CBC W/O [id number] 15:06:00 Test Item Value Reference Range Interpretation [...]
--- NOTE | 2022-12-18 12:52 | RAD REPORT ---
EXAM DESCRIPTION: RAD - Tib Fib Right - 12/18/2022 12:43 pm CLINICAL HISTORY: fall, swelling;Pain COMPARISON: No comparisons FINDINGS: Right total knee arthroplasty is present. Mild soft tissue swelling is present. No fractur e, dislocation or aggressive marrow pattern.
--- NOTE | 2022-12-18 12:54 | RAD REPORT ---
EXAM DESCRIPTION: RAD - Tib Fib Left - 12/18/2022 12:43 pm CLINICAL HISTORY: fall, swelling COMPARISON: No comparisons FINDINGS: Prominent soft tissue swelling is seen affecting the left leg. Left total knee arthroplast y. Evidence of prior tibial tuberosity osteotomy with hardware present. No fracture or dislocation.
--- NOTE | 2022-12-18 13:56 | RAD REPORT ---
EXAM DESCRIPTION: US - Extrem Venous W Compress [place] - 12/18/2022 1:34 pm CLINICAL HISTORY: Pain;Swelling Bilateral leg edema and swelling. COMPARISON: EXT VENOUS UNI LTD dated 07/25/2010 TECHNIQUE: Real-time sonographic interrogation of the left and right lower extremity deep venous sys tems was performed. FINDINGS: Normal compressibility, flow augmentation, phasic flow and spontaneous flow is identified in both the left and right lower extremity deep venous systems. IMPRESSION: No sonographic evidence of left or right lower extremity deep venous thrombosis.
[2022-12-18] MEDS ORDERED: HYDROCODONE/APAP 5/325 MG TAB ONE (14:05)
[2022-12-18 14:14] LABS: Absolute Lymphocytes (CBC) 1.4 K/uL (0.7-4.9); Hematocrit 32.9 % (36.0-45.0); Lymphocytes % 20.5 % (15.3-44.8); MCV 97.1 fL (80-100); MPV 8.1 fL (7.6-11.3); RBC Red Blood Cell Count 3.39 M/uL (3.86-4.86)
[2022-12-18 14:25] LABS: Protime INR 0.89
[2022-12-18 14:29] LABS: Potassium 3.4 mEq/L (3.5-5.1)
--- NOTE | 2022-12-18 14:58 | ER ---
Nurse's Notes [facility] Name: Radha Santos Age: 62 yrs Sex: Female : 1960 Arrival Date: 12/18/2022 Time: 11:15 Bed 11 Private MD: Peter Triana Diagnosis: Localized edema Presentation: 12/18 11:40 Chief complaint: Patient states: Right foot swelling today, "feels tight". Day surgery nj1 last month. Fall last week. Coronavirus screen: Vaccine status: Patient reports receiving the 2nd dose of the covid vaccine. Ebola Screen: Patient denies travel to an Ebola-affected area in the 21 days before illness onset. Initial Sepsis Screen: Does the patient meet any 2 criteria? HR > 90 bpm. No. Patient's initial sepsis screen is negative. Does the patient have a suspected source of infection? No. Patient's initial sepsis screen is negative. Risk Assessment: Do you want to hurt yourself or someone else? Patient reports no desire to harm self or others. Onset of symptoms was December 18, 2022. 11:40 Method Of Arrival: Ambulatory [facility] 11:40 Acuity: SAURAV 3 nj1 Triage Assessment: 14:00 General: Appears in no apparent distress. Behavior is calm, cooperative. iw Historical: - Allergies: 11:45 No Known Allergies; nj1 - PMHx: 11:45 Anemia; Arthritis; Asthma; back pain; Bipolar disorder; Bladder problem; cva; nj1 Depressive disorder; Anxiety; gerd; gi bleed; hemorrhoids; hiatal hernia; 11:51 Hypertensive disorder; Hyperthyroidism; Migraine; peptic ulcer disease; nj1 - Immunization history:: Client reports receiving the 2nd dose of the Covid vaccine. - Social history:: Smoking status: Patient denies any tobacco usage or history of. - Family history:: not pertinent. - Hospitalizations: : No recent hospitalization is reported. Screenin:32 Abuse screen: Denies threats or abuse. Denies injuries from another. iw 14:57 [facility] ED Fall Risk Assessment (Adult) History of falling in the last 3 months, ko1 including since admission No falls in past 3 months (0 pts) Confusion or Disorientation No (0 pts) Intoxicated or Sedated No (0 pts) Impaired Gait No (0 pts) Mobility Assist Device Used No (0 pt) Altered Elimination No (0 pt) Score/Fall Risk Level 0 - 2 = Low Risk Oriented to surroundings, Maintained a safe environment, Educated pt \\T\\ family on fall prevention, incl call for assistance when getting out of bed, Assessed \\T\\ reinforced patient's understanding of fall precautions, Provided non-skid footwear, Hourly rounding (assess needs \\T\\ fall precautionary measures) done, Used ambulatory aids as needed (educated on \\T\\ assisted with), Used gait belt as appropriate. Nutritional screening: No deficits noted. Tuberculosis screening: No symptoms or risk factors identified. Assessment: 14:31 Reassessment: Patient appears in no apparent distress at this time. Patient and/or iw family updated on plan of care and expected duration. Pain level reassessed. Patient is alert, oriented x 3, equal unlabored respirations, skin warm/dry/pink. 14:57 Pain: Complains of pain in dorsum of right foot and right [place]aca and right calf. ko1 Vital Signs: 11:40 BP 118 / 69; Pulse 103; Resp 18; Temp 97.4; Pulse Ox 100% on R/A; Weight 97.52 kg; nj1 Height 5 ft. 7 in. ; 14:58 BP 122 / 74; Pulse 98; Resp 16; Pulse Ox 99% ; ko1 11:40 Body Mass Index 33.67 (97.52 kg, 170.18 cm) nj1 ED Course: 11:19 Patient arrived in ED. mr 11:19 KASH RAMOSI is Private Physician. mr 11:19 Peter Triana is Private Physician. mr 11:35 Delvis Lr MD is Attending Physician. rn 11:45 Triage completed. nj1 11:45 Arm band placed on right wrist. nj1 12:30 Carolina Constantino, RIMA is Primary Nurse. iw 12:45 XRAY Tib Fib LEFT In Process Unspecified. EDMS 12:45 XRAY Tib Fib RIGHT In Process Unspecified. EDMS 13:36 Extrem Venous W Compression [place] US In Process Unspecified. EDMS 14:52 No provider procedures requiring assistance completed. Patient did not have IV access iw during this emergency room visit. 14:57 Patient has correct armband on for positive identification. Bed in low position. Call ko1 light in reach. Side rails up X 1. Pulse ox on. NIBP on. Warm blanket given. Administered Medications: 14:02 Drug: [place] PO 5 mg-325 mg 1 tabs Route: PO; iw 14:30 Follow up: Response: No adverse reaction iw Medication: 14:57 VIS not applicable for this client. ko1 Outcome: 14:58 Discharge ordered by . rn 15:00 Discharged to home via wheelchair, with family. ko1 15:00 Condition: stable 15:00 Discharge instructions given to patient, family, Instructed on discharge instructions, follow up and referral plans. safety practices, Demonstrated understanding of instructions, follow-up care. 15:09 Patient left the ED. ko1 Signatures: Dispatcher [employer] ED AlliRadha Irene, RN RN iw Delvis Lr MD MD rn Oliver, Kathy, RN RN ko1 Danica Perkins RN RN nj1 Corrections: (The following items were deleted from the chart) 11:50 11:45 Home Meds: hiatal hernia; nj1 nj1 11:51 11:40 BP 118 / 69; Pulse 103bpm; Resp 18bpm; Pulse Ox 100% RA; nj1 nj1
--- NOTE | 2022-12-18 14:58 | EDPHYS ---
Physician Documentation [facility] Name: Radha Santos Age: 62 yrs Sex: Female : 1960 Arrival Date: 12/18/2022 Time: 11:15 Bed 11 Private MD: Skylar Triana ED Physician Delvis Lr HPI: 12/18 11:53 This 62 yrs old Female presents to ER via Ambulatory with complaints of leg swelling. rn 11:53 The patient presents with pain, swelling. The complaints affect the right calf, right rn menchaca and dorsum of right foot. Onset: The symptoms/episode began/occurred this morning. Modifying factors: The symptoms are alleviated by nothing. the symptoms are aggravated by moving legs. Associated signs and symptoms: Pertinent positives: swelling, Pertinent negatives fever, warmth, weakness. Severity of symptoms: At their worst the symptoms were moderate, in the emergency department the symptoms are unchanged. The patient has not experienced similar symptoms in the past. The patient has been recently seen at the [facility] Emergency Department. Pt and family member report fall last week, had fractured clavicle, hasn't been ambulating much, sitting for prolonged times in recliner. No hx of DVT/PE. Both legs swollen, RLE greater than LLE. No redness. No fever. Denies injury to legs. Only pain is "tightness from swelling".. Historical: - Allergies: 11:45 No Known Allergies; nj1 - PMHx: 11:45 Anemia; Arthritis; Asthma; back pain; Bipolar disorder; Bladder problem; cva; nj1 Depressive disorder; Anxiety; gerd; gi bleed; hemorrhoids; hiatal hernia; 11:51 Hypertensive disorder; Hyperthyroidism; Migraine; peptic ulcer disease; nj1 - Immunization history:: Client reports receiving the 2nd dose of the Covid vaccine. - Social history:: Smoking status: Patient denies any tobacco usage or history of. - Family history:: not pertinent. - Hospitalizations: : No recent hospitalization is reported. ROS: 11:53 Constitutional: Negative for fever, chills, and weight loss, Cardiovascular: Negative rn for chest pain, palpitations, and edema, Respiratory: Negative for shortness of breath, cough, wheezing, and pleuritic chest pain, Abdomen/GI: Negative for abdominal pain, nausea, vomiting, diarrhea, and constipation, Back: Negative for injury and pain, MS/Extremity: + swelling of both legs Skin: Negative for injury, rash, and discoloration, Neuro: Negative for headache, weakness, numbness, tingling, and seizure. Exam: 11:53 Constitutional: This is a well developed, well nourished patient who is awake, alert, rn and in no acute distress. Cardiovascular: Tachycardic, regular. No pulse deficits. Respiratory: No increased work of breathing, no retractions or nasal flaring. Abdomen/GI: Soft, non-tender Skin: Warm, dry MS/ Extremity: Pulses equal, no cyanosis. Neurovascular intact. Full, normal range of motion. RLE>LLE swelling, pitting edema, no focal tenderness, no bony tenderness Neuro: Awake and alert, GCS 15, oriented to person, place, time, and situation. Vital Signs: 11:40 BP 118 / 69; Pulse 103; Resp 18; Temp 97.4; Pulse Ox 100% on R/A; Weight 97.52 kg; nj1 Height 5 ft. 7 in. ; 14:58 BP 122 / 74; Pulse 98; Resp 16; Pulse Ox 99% ; ko1 11:40 Body Mass Index 33.67 (97.52 kg, 170.18 cm) nj1 MDM: 11:35 Patient medically screened. rn 14:54 Differential diagnosis: contusion, fracture, DVT, dependent edema. Data reviewed: vital rn signs, nurses notes, lab test result(s), radiologic studies, plain films, ultrasound, and as a result, I will discharge patient. Counseling: I had a detailed discussion with the patient and/or guardian regarding: the historical points, exam findings, and any diagnostic results supporting the discharge/admit diagnosis, lab results, radiology results, the need for outpatient follow up, to return to the emergency department if symptoms worsen or persist or if there are any questions or concerns that arise at home. Special discussion: I discussed with the patient/guardian in detail that at this point there is no indication for admission to the hospital. It is understood, however, that if the symptoms persist or worsen the patient needs to return immediately for re-evaluation. Based on the history and exam findings, there is no indication for further emergent testing or inpatient evaluation. I discussed with the patient/guardian the need to see the primary care provider for further evaluation of the symptoms. ED course: U/S neg for DVT, xrays show soft tissue swelling, no evidence of cellulitis on exam and normal WBC. Will dc home with return precautions, leg elevation and pcp f/u. . 12/18 11:48 Order name: CBC with Diff; Complete Time: 14:43 rn 12/18 11:48 Order name: Basic Metabolic Panel; Complete Time: 14:43 rn 12/18 11:48 Order name: Protime (+inr); Complete Time: 14:43 rn 12/18 11:48 Order name: Ptt, Activated; Complete Time: 14:43 rn 12/18 11:48 Order name: BNP; Complete Time: 14:43 rn 12/18 11:48 Order name: Extrem Venous W Compression [place] US; Complete Time: 14:07 rn 12/18 11:59 Order name: XRAY Tib Fib LEFT; Complete Time: 13:05 rn 12/18 11:59 Order name: XRAY Tib Fib RIGHT; Complete Time: 13:05 rn Administered Medications: 14:02 Drug: [place] PO 5 mg-325 mg 1 tabs Route: PO; iw 14:30 Follow up: Response: No adverse reaction iw Disposition Summary: 12/18/22 14:58 Discharge Ordered Location: Home rn Problem: new rn Symptoms: are unchanged rn Condition: Stable rn Diagnosis - Localized edema rn Followup: rn - With: Private Physician - When: As needed - Reason: Recheck today's complaints, Re-evaluation by your physician Discharge Instructions: - Discharge Summary Sheet rn - Edema rn - Peripheral Edema rn Forms: - Medication Reconciliation Form rn - Thank You Letter rn - Antibiotic hospice rn - Prescription Opioid Use rn Signatures: Dispatcher [employer] Carolina Swartz RN RN iw Delvis Lr MD MD rn Jaco, Norma, RN RN nj1 Corrections: (The following items were deleted from the chart) 11:50 11:45 Home Meds: hiatal hernia; nj1 nj1
[2022-12-18 15:34] VITALS: TEMP 97.4
[2022-12-18 15:36] VITALS: BP 122/74; O2SAT 99
== END 2022-12-18 15:09 | disposition home or self-care (01) ==
LOC: ER 11:15
DX: R60.0 Localized edema (principal); I10 Essential (primary) hypertension; E05.90 Thyrotoxicosis, unspecified without thyrotoxic crisis or storm; Z86.73 Personal history of transient ischemic attack (TIA), and cerebral infarction without residual deficits
CPT/HCPCS: 36415; 80048; 83880; 85025; 85610; 85730; 93970; 99284

== ENCOUNTER 2023-04-04 20:54 | Emergency (ER) | payer OTHER ==
--- OUTSIDE RECORDS SUMMARY | 2023-04-04 21:15 | XMS REPORT | Continuity of Care Document ---
:1960 Author Organization [facility] t Address [address] [place] [address] Care Team Providers Name Role Phone PETER KINNEY Primary Care Physician Unavailable Peter Kinney Attending Clinician Unavailable MEHRDAD BLAIR Attending Clinician Unavailable Ruth Matias Attending Clinician Unavailable Sheryl Allison Attending Clinician Unavailable ALFREDO RIGGS Attending Clinician Unavailable CUONG LOWERY Attending Clinician Unavailable [email or web address]_Min Attending Clinician Unavailable KUSUM PACHECO Attending Clinician Unavailable MALDONADO GONZÁLES Attending Clinician Unavailable Kusum Iyer Attending Clinician Doctor Unassigned, O'Brien Attending Clinician Unavailable NICHOLE LAU Attending Clinician Unavailable Nichole Lau MD Attending Clinician Pob, Adc Lab Main Attending Clinician Unavailable ROC_Reena Attending Clinician Unavailable Katty Correia S Attending Clinician Sebastián ABARCA, Karen Neely Attending Clinician Unavailable PRAKASH WALLER Attending Clinician Unavailable Christin LEMUS, Prakash Lebron Attending Clinician Mayra LEMUS, Earnest Henning Attending Clinician ROXY BACH Attending Clinician Unavailable Isreal AUDIT CLERKS SUPERVISOR, Roxy Attending Clinician Celso AUDIT CLERKS SUPERVISORLeon Elizondo Attending Clinician Maribell LEMUS, Mehrdad Hay Attending Clinician [place], Adc Test Attending Clinician Unavailable Alejandra Ramirez Attending Clinician Unavailable KATTY VIEIRA Attending Clinician Unavailable Lavell John DO Attending Clinician Radiology Attending Clinician Unavailable RADIOLOGY Attending Clinician Unavailable LEON IRENE Attending Clinician Unavailable Lola BARB, K Shari Attending Clinician Mauro Chinchilla MD Attending Clinician Gomez Hawkins MD Attending Clinician Tai Avalos CRNA Attending Clinician Maribel Moody MD, Leonard Attending Clinician AMANDA JORDAN Attending Clinician Unavailable GABRIEL RODRIGUEZ Attending Clinician Unavailable MEHRDAD BLAIR Admitting Clinician Unavailable [email or web address]_S Admitting Clinician Unavailable KUSUM PACHECO Admitting Clinician Unavailable MERRY Admitting Clinician Unavailable PRAKASH WALLER Admitting Clinician Unavailable Prakash Waller MD Admitting Clinician Mehrdad Blair MD Admitting Clinician Alejandra Ramirez Admitting Clinician Unavailable LAVELL JOHN Admitting Clinician Unavailable Gomez Hawkins MD Admitting Clinician Payers Payer Name Policy Type Policy Number Effective Date Expiration Date Min thayer [facility] [id number] 2020 [facility] [place] 00:00:00 PPO [employer] CHOICE [id number] 2013 00:00:00 [facility] [id number] (MEDICARE REPLACEMENT/ADVANT AGE - PPO) [facility] HealthSelect 1 [id number] 2021 Common TRS/ERS MCR PPO 00:00:00 Spirit - [facility] [id number] Common Spirit [facility] [id number] [facility] Problems Condition Condition Condition Status Onset Resolution Last Treating Co mments Source Name Details Category Date Date Treatment Clinician Date GIB GIB Disease Active Univers (gastroint (gastroint 8-17 it y of estinal estinal 00:00: [place] bleeding) bleeding) 00 [facility] Branch Sinus Sinus Disease Active Univers tachycardi tachycardi 6-20 it y of a a 00:00: [place] Medical Branch Anemia Anemia Disease [...] 30-39.9) 00:00: [place] 00 Medical Branch [id number] Chronic Problem Commo n pain Spirit syndrome - [facility] Chronic Chronic Problem Common sinusitis sinusitis Spir it - [facility] Hypothyroi Hypothyroi Problem C ommon dism dism [facility] Acute Acute Problem Common peptic peptic Spirit ulcer with ulcer, - CHI hemorrhage site St AND with unspecifie Luke s perforatio d, with Medic al n but both Center without hemorrhage obstructio and n perforatio n [id number] Other Problem Common chronic Spirit pain - [facility] [id number] Anxiety Problem Common [facility] [id number] Gastroesop Problem Co mmon hageal Spirit reflux - CHI disease [facility] esophagiti Medica l s and Center hemorrhage [id number] Grief Problem Common [facility] Recurrent Falling Problem Commo n falls [facility] 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 - CHI cular accident St disease [facility] current Medical residual Center effects 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 - [facility] with St diabetic [facility] nephropath Medica l y Center Status Migraine, Problem Common migrainosu unspecifie Sp coretta s d, not - CHI intractabl St e, with [facility] status Medical migrainosu Center s [id number] Pain in Problem Common right knee [facility] [id number] Moderate Problem Comm on persistent Spirit asthma, - CHI unspecifie St d whether [facility] complicate Medica l d Center [id number] Fatty Problem Common liver [facility] disease, - CHI nonalcohol [facility] [id number] Unsteady Problem Comm on gait [facility] [id number] Chronic Problem Comm on tension-ty Spirit pe - CHI headache, intractabl [facility] [id number] Frontal Problem Commo n sinus pain [facility] [id number] Hospital Problem Comm on discharge Spirit follow-up - [facility] [id number] OAB Problem Common (overactiv Spirit e bladder) - [facility] [id number] Reactive Problem Commo n depression [facility] [id number] Primary Problem Comm on osteoarthr Spirit itis of - CHI right [facility] Mixed Mixed Problem Common hyperlipid hyperlipid Sp coretta emia emia - [facility] [id number] Polyneurop Problem Com mon athy Spirit [facility] 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 - CHI diabetes with St mellitus diabetic [facility] polyneurop Medica l athy, Center without long-term current use of insulin [id number] Hypertensi Problem Com mon ve heart Spirit disease - [facility]I without [facility] CHF [facility] [id number] Abnormal Problem Comm on mammogram [facility] - [facility] [id number] [place] [id number] tunnel Spirit syndrome - CHI of right wrist [facility] GERD with GERD with Problem Com mon esophagiti esophagiti Sp coretta s s - [facility] [id number] Mild Problem Common intermitte Spirit nt asthma - CHI without complicati [facility] [id number] Non-season Problem Com mon al Spirit allergic - CHI rhinitis St due to [facility] pollen [facility] [id number] Bipolar 1 Problem Comm on disorder Spirit with - CHI moderate [facility] bhavik [facility] [id number] Osteoarthr Problem Co mmon itis of Spirit multiple - CHI joints, St unspecifie [facility] osteoarthr Center itis type Allergies, Adverse Reactions, Alerts Allergy Allergy Status Severity Reaction(s) Onset Inactive Treating Comm ents Source Name Type Date Date Clinician No Known DA Active U [facility] Allergie 3-13 [facility] 00:00: [facility] 00 are [place] NO KNOWN Drug Active Univers ALLERGIE Class ity of S [facility] [id number] Drug Active vaginal Common allergy swelling [facility] Social History Social Habit Start Date Stop Date Quantity Comments Source History of Tobacco Common Spirit - Use [facility] Sex Assigned At Common Sp coretta - [facility] Gender identity Universit y [facility] intake 2023-03-14 2023-03-14 0 /d University of 00:00:00 00:00:00 [facility] History of Social 2023-02-23 2023-02-23 Univers ity of function 00:00:00 00:00:00 [facility] Exposure to 2022-08-14 2022-08-24 Not sure [facility] SARS-CoV-2 (event) 00:00:00 11:14:00 [facility] Tobacco use and 2022-03-22 2022-03-22 Smokeless Universit y of exposure 00:00:00 00:00:00 tobacco non-user [facility] Smoking Status Start Date Stop Date Source Never smoked tobacco [facility] Medications Ordered Filled Start Stop Current Ordering Indication Dosage Frequency Signature Comments Components Source Medication Medication Date Date Medication? Clinician (SIG) Name Name triamcinolo 2022- No [id number] 40mg [facility] 09-29 9100 ity of acetonide 17:30: 16:30 [place] (KENALOG) 00 :00 Medical injection Branch 40 mg triamcinolo 2022- No [id number] 40mg 40 mg, [facility] 09-29 9100 Intramuscu ity of acetonide 17:30: 16:30 [place], ONCE, [place] ([place]) 00 :00 1 dose, On Medi gregg injection Fri Branch 40 mg 09/29/22 at 1130, Routine triamcinolo 2022- No [id number] 40mg [facility] 09-2900 ity of acetonide 17:30: 16:30 [place] (KENALOG) 00 :00 Medical injection Branch 40 mg triamcinolo 2022- No [id number] 40mg 40 mg, [facility] 09-29 9100 Intramuscu ity of acetonide 17:30: [...] 20mg Take 20 mg Univers (ZOCOR) 20 - by mouth ity o f mg tablet [...] tablet,del [place] 42 ayed Medical release [place] TAKE 1 TABLET BY MOUTH EVERY DAY [...] capsule,de [place] 42 lay Medical release [place] TAKE 1 CAPSULE BY MOUTH TWICE DAILY divalproex Yes divalproex U nivers 500 mg EC 8- 500 mg ity of tablet 22:28: tablet,[facility] 42 ay Medical release [place] TAKE 1 TABLET BY MOUTH DAILY amLODIPine [...] 20mg Take 20 mg Univers (ZOCOR) 20 - by mouth ity o f mg tablet 22:28: at [place] [address] bedtime. Medical Branch acetaminoph Yes acetaminop Univers [...] 1 gram ity of tablet 22:28: tablet [place] [address] TAKE 1 Medical TABLET BY Branch MOUTH BEFORE MEALS AND AT BEDTIME spironolact Yes spironolac Univers one 25 mg 03-24 tone 25 mg ity of tablet 22:28: tablet [place] 42 TAKE 1 Medical TABLET BY Branch MOUTH EVERY DAY SITagliptin Yes Januvia Uni vers (JANUVIA) 03-24 100 mg ity of 100 mg 22:28: tablet [place] tablet 42 TAKE 1 Medical TABLET BY [...] ity o f mg tablet 22:28: at [place] [address] bedtime. Medical Branch acetaminoph Yes acetaminop Univers [...] 300 mg ity of capsule 22:28: capsule [place] [address] TAKE 1 Medical CAPSULE BY Branch MOUTH AT BEDTIME DULoxetine Yes duloxetine U nivers 60 mg 8-19 60 mg ity of capsule 22:28: capsule,[place] 42 layed Medical release Branch TAKE 1 CAPSULE BY MOUTH TWICE DAILY divalproex Yes divalproex U nivers 500 mg EC 8-19 500 mg ity of tablet 22:28: tablet,del [place] 42 ayed Medical release [place] TAKE 1 TABLET BY MOUTH DAILY amLODIPine [...] ity o f mg tablet 22:28: at [place] [address] bedtime. Medical Branch acetaminoph Yes acetaminop Univers [...] - 50 mg ity of 22:28: tablet [place] [...] 8- 5 mg ity of 22:28: tablet [place] [address] TAKE 1 Medical TABLET BY Branch MOUTH [...] ity o f mg tablet 22:28: at [place] [address] bedtime. Medical Branch acetaminoph Yes acetaminop Univers [...] le 40 mg ity o f tablet :28: tablet,del [place] 42 ayed Medical release [...] 175 ity of tablet 22:28: mcg tablet [place] [address] TAKE 1 Medical TABLET BY Branch MOUTH [...] ity o f mg tablet 22:28: at [place] [address] bedtime. Medical Branch acetaminoph Yes acetaminop Univers [...] gabapentin Yes gabapentin U nivers 300 mg - 300 mg ity of capsule 22:28: capsule [place] 42 TAKE 1 Medical CAPSULE BY Branch [...] ity o f mg tablet 22:28: at [place] [address] bedtime. Medical Branch acetaminoph Yes acetaminop Univers en-codeine 8-19 hen 300 ity of 300-30 mg 22:28: mg-codeine [place] tablet 42 30 mg Medical tablet Branch TAKE 1 TABLET BY MOUTH TWICE DAILY NEEDED traZODone Yes trazodone Uni vers 150 mg 8-19 150 mg ity of tablet 22:28: tablet [place] [address] TAKE 1 TO Medical 2 TABLETS Branch BY MOUTH EVERY NIGHT AT BEDTIME NEEDED FOR INSOMNIA traMADoL 50 Yes tramadol Un yan mg tablet 8-19 50 mg ity of 22:28: tablet [place] [address] TAKE 1 Medical TABLET BY Branch MOUTH [...] 22:28: tablet,del [place] 42 ayed Medical release [place] TAKE 1 TABLET BY MOUTH EVERY DAY [...] capsule 22:28: capsule,[place] 42 layed Medical release Branch TAKE 1 [...] ity o f mg tablet 22:28: at [place] [address] bedtime. Medical Branch acetaminoph Yes acetaminop Univers en-codeine 8-19 hen 300 ity of 300-30 mg 22:28: mg-codeine [place] tablet 42 30 mg Medical tablet Branch TAKE 1 TABLET BY MOUTH TWICE DAILY NEEDED traZODone Yes trazodone Uni vers 150 mg 8- 150 mg ity of tablet 22:28: tablet [place] [address] TAKE 1 TO Medical 2 TABLETS Branch BY MOUTH EVERY NIGHT AT BEDTIME NEEDED FOR INSOMNIA traMADoL 50 Yes tramadol Un yan mg tablet - 50 mg ity of 22:28: tablet [place] [...] mg ity o f tablet 22:28: tabletlow [place] 42 ayed Medical release [place] TAKE 1 TABLET BY MOUTH EVERY DAY [...] capsule 22:28: [place] 42 layed Medical release [place] TAKE 1 CAPSULE BY MOUTH TWICE DAILY [...] ity o f mg tablet 22:28: at [place] [address] bedtime. Medical Branch acetaminoph Yes acetaminop Univers en-codeine 8-19 hen 300 ity of 300-30 mg 22:28: mg-codeine [place] tablet 42 30 mg Medical tablet Branch TAKE 1 TABLET BY MOUTH TWICE DAILY NEEDED traZODone Yes trazodone Uni vers 150 mg 8- 150 mg ity of tablet 22:28: tablet [place] [address] TAKE 1 TO Medical 2 TABLETS Branch BY MOUTH EVERY NIGHT AT BEDTIME NEEDED FOR INSOMNIA traMADoL 50 Yes tramadol Un yan mg tablet 8-19 50 mg ity of 22:28: tablet [place] [address] TAKE 1 Medical TABLET BY Branch MOUTH THREE TIMES DAILY sucralfate Yes sucralfate U nivers 1 gram 8-19 1 gram ity of tablet 22:28: tablet [place] 42 TAKE 1 Medical TABLET BY Branch MOUTH BEFORE MEALS AND AT BEDTIME spironolact Yes spironolac Univers one 25 mg 8- tone 25 mg ity of tablet 22:28: tablet [place] [address] TAKE 1 Medical TABLET BY Branch MOUTH EVERY DAY SITagliptin Yes Januvia Uni vers (JANUVIA) 8-19 100 mg ity of 100 mg 22:28: tablet [place] tablet 42 TAKE 1 Medical TABLET BY [...] mg ity o f tablet 22:28: tablet,low [place] 42 ayed Medical release [place] TAKE 1 TABLET BY MOUTH EVERY DAY [...] of capsule 22:28: capsule,de [place] 42 layed Medical release [place] TAKE 1 CAPSULE BY MOUTH TWICE DAILY divalproex Yes divalproex U nivers 500 mg EC 03-24 500 mg ity of tablet 22:28: tablet,low [place] 42 ayed Medical release [place] TAKE 1 TABLET BY MOUTH DAILY amLODIPine [...] ity o f mg tablet 22:28: at [place] [address] bedtime. Medical Branch acetaminoph Yes acetaminop Univers [...] tablet,del [place] 42 ayed Medical release [place] TAKE 1 TABLET BY MOUTH EVERY DAY [...] mg ity of capsule 22:28: [place] 42 lay [facility] TAKE 1 CAPSULE BY MOUTH TWICE DAILY divalproex Yes divalproex U nivers 500 mg EC 03-24 500 mg ity of tablet 22:28: tablet,low [place] 42 ay [facility] TAKE 1 TABLET BY MOUTH DAILY amLODIPine [...] ity o f mg tablet 22:28: at [place] [address] bedtime. Medical Branch acetaminoph Yes acetaminop Univers [...] mg ity of 100 mg 22:28: tablet [place] tablet 42 TAKE 1 Medical TABLET BY [...] tablet,del [place] 42 ayed Medical release [place] TAKE 1 TABLET BY MOUTH EVERY DAY [...] capsule,de [place] 42 lay Medical release [place] TAKE 1 CAPSULE BY MOUTH TWICE DAILY divalproex Yes divalproex U nivers 500 mg EC 8- 500 mg ity of tablet 22:28: tablet,del [place] 42 ay Medical release [place] TAKE 1 TABLET BY MOUTH DAILY amLODIPine [...] 20mg Take 20 mg Univers (ZOCOR) 20 8- by mouth ity o f mg tablet 22:28: at [place] [address] bedtime. Medical Branch acetaminoph Yes acetaminop Univers [...] mg ity of 100 mg 22:28: tablet [place] tablet 42 TAKE 1 Medical TABLET BY [...] MOUTH EVERY DAY IN THE EVENING methocarbam 2022-0 Yes methocarba Univers oL 500 mg 8-19 [...] tablet,del [place] 42 ayed Medical release [place] TAKE 1 TABLET BY MOUTH DAILY amLODIPine [...] ity o f mg tablet 22:28: at [place] [address] bedtime. Medical Branch acetaminoph Yes acetaminop Univers [...] ity of capsule 22:28: capsule [place] TAKE 1 Medical CAPSULE BY Branch MOUTH [...] ity o f mg tablet 22:28: at [place] [address] bedtime. Medical Branch acetaminoph Yes acetaminop Univers [...] 2022-0 Yes tramadol Un yan mg tablet 8-19 [...] ity o f mg tablet 22:28: at [place] [address] bedtime. Medical Branch acetaminoph Yes acetaminop Univers [...] ity o f mg tablet 22:28: at [place] [address] bedtime. Medical Branch acetaminoph Yes acetaminop Univers [...] ity o f mg tablet 22:28: at [place] [address] bedtime. Medical Branch acetaminoph Yes acetaminop Univers en-codeine 8- hen 300 ity of 300-30 mg 22:28: mg-codeine [place] tablet 42 30 mg Medical tablet Branch TAKE 1 TABLET BY MOUTH TWICE DAILY NEEDED traZODone Yes trazodone Uni vers 150 mg - 150 mg ity of tablet 22:28: tablet [place] [address] TAKE 1 TO Medical 2 TABLETS Branch [...] 25 mg ity of tablet 22:28: tablet [place] [address] TAKE 1 Medical TABLET BY Branch MOUTH [...] mg ity o f tablet 22:28: tabletlow [place] 42 ayed Medical release Branch [...] 60 mg ity of capsule 22:28: [place] 42 layed Medical release Branch TAKE 1 CAPSULE BY MOUTH TWICE DAILY divalproex Yes divalproex U nivers 500 mg EC 03-24 500 mg ity of tablet 22:28: tablet,del [place] [address] ayed Medical release Branch TAKE 1 TABLET [...] ity o f mg tablet 22:28: at [place] [address] bedtime. Medical Branch acetaminoph Yes acetaminop Univers [...] - 50 mg ity of 22:28: tablet [place] [...] tablet,del [place] 42 ayed Medical release [place] TAKE 1 TABLET BY MOUTH EVERY DAY [...] 03-24 50 mg ity of :28: tablet [place] 42 TAKE 1 Medical [...] capsule 22:28: capsule,[place] 42 layed Medical release [place] TAKE 1 CAPSULE BY MOUTH TWICE DAILY divalproex Yes divalproex U nivers 500 mg EC 03-24 500 mg ity of tablet 22:28: tablet,del [place] 42 ayed Medical release [place] TAKE 1 TABLET BY MOUTH DAILY amLODIPine [...] ity o f mg tablet 22:28: at [place] [address] bedtime. Medical Branch acetaminoph Yes acetaminop Univers [...] mg ity of 100 mg 22:28: tablet [place] tablet 42 TAKE 1 Medical TABLET BY [...] 200 mg ity of tablet 22:28: tablet [place] [address] TAKE 1 Medical TABLET BY Branch MOUTH TWICE DAILY pantoprazol Yes pantoprazo Univers e 40 mg EC 8 le 40 mg ity o f tablet 22:28: tablet,del [place] [facility] DAY [...] 300 mg ity of capsule 22:28: capsule [place] [address] TAKE 1 Medical CAPSULE BY Branch MOUTH AT BEDTIME DULoxetine Yes duloxetine U nivers 60 mg 03-24 60 mg ity of capsule 22:28: [place] [facility] BY MOUTH TWICE DAILY divalproex Yes divalproex U nivers 500 mg EC 03-24 500 mg ity of tablet 22:28: tablet,low [place] [facility] BY MOUTH [...] ity o f mg tablet 22:28: at [place] [address] bedtime. Medical Branch acetaminoph Yes acetaminop Univers [...] mg ity of 100 mg 22:28: tablet [place] tablet 42 TAKE 1 Medical TABLET BY [...] f tablet 22:28: tablet,del [place] 42 ay Medical release [place] TAKE 1 TABLET BY MOUTH EVERY DAY [...] ity of capsule 22:28: capsule,[place] 42 lay [facility] TAKE 1 CAPSULE BY MOUTH TWICE DAILY divalproex Yes divalproex U nivers 500 mg EC 03-24 500 mg ity of tablet 22:28: tablet,del [place] 42 [facility] Medical release [place] TAKE 1 TABLET BY MOUTH DAILY amLODIPine [...] ity o f mg tablet 22:28: at [place] [address] bedtime. Medical Branch acetaminoph Yes acetaminop Univers [...] tablet,del [place] 42 ayed Medical release [place] TAKE 1 TABLET BY MOUTH DAILY amLODIPine [...] ity o f mg tablet 22:28: at [place] [address] bedtime. Medical Branch acetaminoph Yes acetaminop Univers [...] BY Branch MOUTH EVERY DAY losartan 50 2022-0 Yes losartan Un yan mg tablet 8-19 [...] 300 mg ity of capsule 22:28: capsule TAKE 1 Medical CAPSULE BY Branch MOUTH [...] ity o f mg tablet 22:28: at [place] [address] bedtime. Medical Branch acetaminoph Yes acetaminop Univers en-codeine 8-19 hen 300 ity of 300-30 mg 22:28: mg-codeine [place] tablet 42 30 mg Medical tablet Branch TAKE 1 TABLET BY MOUTH TWICE DAILY NEEDED traZODone Yes trazodone Uni vers 150 mg 8-19 150 mg ity of tablet 22:28: tablet [place] TAKE 1 TO Medical 2 TABLETS Branch BY MOUTH EVERY NIGHT AT BEDTIME NEEDED FOR INSOMNIA traMADoL 50 Yes tramadol Un yan mg tablet 8-19 50 mg ity of 22:28: tablet [place] TAKE 1 Medical TABLET BY Branch MOUTH THREE TIMES DAILY sucralfate 2022-0 Yes sucralfate U nivers 1 gram 03-24 [...] ity o f mg tablet 22:28: at [place] [address] bedtime. Medical Branch acetaminoph Yes acetaminop Univers [...] 8-19 5 mg ity of 22:28: tablet [place] [address] TAKE 1 Medical TABLET BY Branch MOUTH [...] ity o f mg tablet 22:28: at [place] [address] bedtime. Medical Branch acetaminoph Yes acetaminop Univers en-codeine 8-19 hen 300 ity of 300-30 mg 22:28: mg-codeine [place] tablet 42 30 mg Medical tablet Branch TAKE 1 TABLET BY MOUTH TWICE DAILY NEEDED traZODone Yes trazodone Uni vers 150 mg 8-19 150 mg ity of tablet 22:28: tablet [place] [address] TAKE 1 TO Medical 2 TABLETS Branch [...] 25 mg ity of tablet 22:28: tablet [place] [address] TAKE 1 Medical TABLET BY Branch MOUTH [...] of capsule 22:28: capsule,de [place] 42 layed Medical release Branch TAKE [...] ity o f mg tablet 22:28: at [place] [address] bedtime. Medical Branch acetaminoph Yes acetaminop Univers [...] - 50 mg ity of 22:28: tablet [place] [...] capsule 22:28: capsule,[place] 42 layed Medical release [place] TAKE 1 CAPSULE BY MOUTH TWICE DAILY divalproex Yes divalproex U nivers 500 mg EC 8- 500 mg ity of tablet 22:28: tablet,del [place] 42 ayed Medical release [place] TAKE 1 TABLET BY MOUTH DAILY amLODIPine [...] ity o f mg tablet 22:28: at [place] [address] bedtime. Medical Branch acetaminoph Yes acetaminop Univers [...] mg ity of 100 mg 22:28: tablet [place] tablet 42 TAKE 1 Medical TABLET BY [...] 200 mg ity of tablet 22:28: tablet [place] [address] TAKE 1 Medical TABLET BY Branch MOUTH TWICE DAILY pantoprazol Yes pantoprazo Univers e 40 mg EC 8 le 40 mg ity o f tablet 22:28: tablet,del [place] 42 ay [facility] TAKE 1 TABLET BY MOUTH EVERY DAY [...] 300 mg ity of capsule 22:28: capsule [place] [address] TAKE 1 Medical CAPSULE BY Branch MOUTH AT BEDTIME DULoxetine Yes duloxetine U nivers 60 mg 03-24 60 mg ity of capsule 22:28: capsule,[place] 42 lay [facility] TAKE 1 CAPSULE BY MOUTH TWICE DAILY divalproex Yes divalproex U nivers 500 mg EC 03-24 500 mg ity of tablet 22:28: tablet,del [place] 42 ay [facility] TAKE 1 TABLET BY MOUTH DAILY amLODIPine [...] ity o f mg tablet 22:28: at [place] [address] bedtime. Medical Branch acetaminoph Yes acetaminop Univers [...] - 50 mg ity of 22:28: tablet [place] [...] mg ity of 100 mg 22:28: tablet [place] tablet 42 TAKE 1 Medical TABLET BY [...] f tablet 22:28: tablet,del [place] 42 [facility] Medical release [place] TAKE 1 TABLET BY MOUTH EVERY DAY [...] 22:28: capsule,[place] 42 lay [facility] TAKE 1 CAPSULE BY MOUTH TWICE DAILY divalproex Yes divalproex U nivers 500 mg EC 03-24 500 mg ity of tablet 22:28: tablet,del [place] 42 [facility] Medical release [place] TAKE 1 TABLET BY MOUTH DAILY amLODIPine [...] ity o f mg tablet 22:28: at [place] [address] bedtime. Medical Branch acetaminoph Yes acetaminop Univers [...] tablet,del [place] 42 ayed Medical release [place] TAKE 1 TABLET BY MOUTH DAILY amLODIPine [...] ity o f mg tablet 22:28: at [place] [address] bedtime. Medical Branch acetaminoph Yes acetaminop Univers [...] tablet,del [place] 42 ayed Medical release [place] TAKE 1 TABLET BY MOUTH DAILY amLODIPine [...] ity o f mg tablet 22:28: at [place] [address] bedtime. Medical Branch acetaminoph Yes acetaminop Univers [...] 300 mg ity of capsule 22:28: capsule [place] [address] TAKE 1 Medical CAPSULE BY Branch MOUTH AT BEDTIME DULoxetine Yes duloxetine U nivers 60 mg 8-19 60 mg ity of capsule 22:28: capsule,de [place] 42 layed Medical release Branch TAKE 1 CAPSULE BY MOUTH TWICE DAILY divalproex Yes divalproex U nivers 500 mg EC 8-19 500 mg ity of tablet 22:28: tablet,del [place] 42 ayed Medical release [place] TAKE 1 TABLET BY MOUTH DAILY amLODIPine Yes amlodipine U nivers 5 mg tablet 8- 5 mg ity of 22:28: tablet [place] [address] TAKE 1 Medical TABLET BY Branch MOUTH [...] ity o f mg tablet 22:28: at [place] [address] bedtime. Medical Branch acetaminoph Yes acetaminop Univers [...] ity o f mg tablet 22:28: at [place] [address] bedtime. Medical Branch acetaminoph Yes acetaminop Univers [...] ity o f mg tablet 22:28: at [place] [address] bedtime. Medical Branch acetaminoph Yes acetaminop Univers [...] ity o f mg tablet 22:28: at [place] [address] bedtime. Medical Branch acetaminoph Yes acetaminop Univers [...] 1 gram ity of tablet 22:28: tablet [place] [address] TAKE 1 Medical TABLET BY Branch MOUTH [...] 8-19 5 mg ity of 22:28: tablet [place] [address] TAKE 1 Medical TABLET BY Branch MOUTH [...] ity o f mg tablet 22:28: at [place] [address] bedtime. Medical Branch acetaminoph Yes acetaminop Univers en-codeine 8-19 hen 300 ity of 300-30 mg 22:28: mg-codeine [place] tablet 42 30 mg Medical tablet Branch TAKE 1 TABLET BY MOUTH TWICE DAILY NEEDED traZODone Yes trazodone Uni vers 150 mg 8-19 150 mg ity of tablet 22:28: tablet [place] [address] TAKE 1 TO Medical 2 TABLETS Branch [...] 25 mg ity of tablet 22:28: tablet [place] [address] TAKE 1 Medical TABLET BY Branch MOUTH [...] tablet,del [place] 42 ayed Medical release [place] TAKE 1 TABLET BY MOUTH EVERY DAY [...] ity o f mg tablet 22:28: at [place] [address] bedtime. Medical Branch acetaminoph Yes acetaminop Univers [...] tablet,del [place] 42 ayed Medical release [place] TAKE 1 TABLET BY MOUTH EVERY DAY [...] capsule 22:28: [place] 42 layed Medical release [place] TAKE 1 CAPSULE BY MOUTH TWICE DAILY divalproex Yes divalproex U nivers 500 mg EC 8- 500 mg ity of tablet 22:28: tablet,del [place] 42 [facility] Medical release [place] TAKE 1 TABLET BY MOUTH DAILY amLODIPine [...] mg ity of 100 mg 22:28: tablet [place] tablet 42 TAKE 1 Medical TABLET BY [...] 40 mg ity o f tablet 22:28: tablet,[place] [address] ay [facility] TAKE 1 TABLET BY MOUTH EVERY DAY [...] 300 mg ity of capsule 22:28: capsule [place] [address] TAKE 1 Medical CAPSULE BY Branch MOUTH AT BEDTIME DULoxetine Yes duloxetine U nivers 60 mg 03-24 60 mg ity of capsule 22:28: capsule,de [place] 42 lay [facility] TAKE 1 CAPSULE BY MOUTH TWICE DAILY divalproex Yes divalproex U nivers 500 mg EC 8 500 mg ity of tablet 22:28: tablet,del [place] [address] [facility]TH [...] ity o f mg tablet 22:28: at [place] [address] bedtime. Medical Branch acetaminoph Yes acetaminop Univers [...] mg ity of 100 mg 22:28: tablet [place] tablet 42 TAKE 1 Medical TABLET BY [...] f tablet 22:28: tablet,del [place] 42 [facility] TAKE 1 TABLET BY MOUTH EVERY DAY [...] of capsule 22:28: [place] [facility] BY MOUTH TWICE DAILY divalproex Yes divalproex U nivers 500 mg EC 8 500 mg ity of tablet 22:28: tablet,del [place] 42 [facility] TAKE 1 TABLET BY MOUTH DAILY amLODIPine [...] ity o f mg tablet 22:28: at [place] [address] bedtime. Medical Branch acetaminoph Yes acetaminop Univers [...] TABLET BY Branch MOUTH EVERY DAY SITagliptin 0 Yes Januvia Uni vers (JANUVIA) 8- 100 [...] tablet,del [place] 42 ayed Medical release [place] TAKE 1 TABLET BY MOUTH DAILY amLODIPine [...] No 10mg 10 mg, Unive rs (DULCOLAX) 818 08-18 Oral, ity of tablet 10 21:30: 23:50 PRE-PROCED [place] mg 00 :00 URE ONCE, Medical 1 dose, Branch Starting on Analy 03/23/22 at 1630, Until Discontinu ed, Routine, Bowel Prep, Colonoscop y bisacodyL 2021-2021- No 10mg 10 mg, Unive rs (DULCOLAX) [...] ed, Routine, Bowel Prep, colonoscop y ondansetron 2022-0 Yes 4mg 4 mg, Slow Univers (ZOFRAN 8-18 IV Push, ity of (PF)) 18:32: Q6HPRN, [place] injection 4 54 Starting Medi gregg mg on Analy Branch 03/23/22 at 1332, Until Discontinu ed, Routine, Nausea and Vomiting (N/V) peg-electro 2021- No 4000mL 4,000 mL, Univers lyte soln 03-23 Oral, PRN ity of (GOLYTELY) 18:32: 05:28 - SEE [place] [id number] 54 :43 INSTRUCTIO Ne dical .74 -5.86 NS, Branch gram Starting solution on Analy 4,000 mL 03/23/22 at 1332, Until 03/25/22 at 0028, Routine, Bowel Prep, colonoscop y ondansetron 2021- No 4mg 4 mg, Slow Univers (ZOFRAN 03-23 08-20 IV Push, ity of (PF)) 18:32: 05:28 Q6HPRN, [place] injection 4 54 :43 Starting Medi gregg [...] Medic al (COMPOUNDED on [facility] ) 03/23/22 at 1135, Until Discontinu ed, Routine, stomach pain maalox-lido 2021-0 Yes 5mL 5 mL, Unive rs usha 2% 03-23 Oral, ity of viscous 1:1 16:35: TIDPRN, [place] 52 Starting Medic al (COMPOUNDED on [facility] ) 03/23/22 at 1135, Until Discontinu ed, Routine, stomach pain maalox-lido 2021-0 2021- No 5mL 5 mL, Univ ers usha 2% 03-23 Oral, ity of viscous 1:1 16:35: 05:28 TIDPRN, [place] suspension 52 :43 Starting Medic al (COMPOUNDED on [facility] ) 03/23/22 at 1135, Until 03/25/22 at 0028, Routine, stomach pain DULoxetine 2021-0 Yes 60mg 60 mg, Unive rs (CYMBALTA) 03-23 Oral, ity of capsule 60 14:00: DAILY, [place] mg 00 First dose Medical on [facility] 03/23/22 at 0900, Until Discontinu ed, Routine DULoxetine 2021-0 Yes 60mg 60 mg, Unive rs (CYMBALTA) 03-23 Oral, ity of capsule 60 14:00: DAILY, [place] mg 00 First dose Medical on [facility] 03/23/22 at 0900, Until Discontinu ed, Routine DULoxetine 2021-0 2021- No 60mg 60 mg, Univ ers (CYMBALTA) 03-23 Oral, ity of capsule 60 14:00: 05:28 DAILY, [place] mg 00 :43 First dose Medical on [facility] 03/23/22 at 0900, Until Discontinu ed, Routine levothyroxi Yes 175ug 175 mcg, U nivers ne 8-18 Oral, ity of (SYNTHROID) 11:00: QAM-0600, [place] tablet 175 00 First dose Med ical mcg on [facility] Branch 03/23/22 at 0600, Until Discontinu ed, Routine levothyroxi Yes 175ug 175 mcg, U nivers ne 8-18 Oral, ity of (SYNTHROID) 11:00: QAM-0600, [place] tablet 175 00 First dose Med ical mcg on [facility] Branch 03/23/22 at 0600, Until Discontinu ed, Routine levothyroxi 2021- No 175ug 175 mcg, Univers ne 8 08-20 Oral, ity of (SYNTHROID) 11:00: 05:28 QAM-0600, [place] tablet 175 00 :43 First dose Med ical mcg on [facility] Branch 03/23/22 at 0600, Until Discontinu ed, Routine HYDROcodone 0 2021- No 1{tbl} 1 tablet, Univers -acetaminop 8-18 08-18 Oral, ity of hen (NORCO 08:30: 07:29 ONCE, 1 [place] 5) 5-325 mg 00 :00 dose, On Medi gregg tablet 1 Analy Branch tablet 03/23/22 at 0330, Routine HYDROcodone 2021-2021- No 1{tbl} 1 tablet, Univers -acetaminop 8-18 08-18 Oral, ity of hen (NORCO 08:30: 07:29 ONCE, 1 [place] 5) 5-325 mg 00 :00 dose, On Medi gregg tablet 1 Analy Branch tablet 03/23/22 at 0330, Routine HYDROcodone 2021-0 2022- No 1{tbl} 1 tablet, Univers -acetaminop 8-18 08-18 Oral, ity of hen (NORCO 08:30: 07:29 ONCE, 1 [place] 5) 5-325 mg 00 :00 dose, On Medi gregg tablet 1 Analy Branch tablet 03/23/22 at 0330, Routine simvastatin Yes 20mg 20 mg, Univ ers (ZOCOR) 8-18 Oral, QHS, ity of tablet 20 02:00: First dose [place] mg 00 on [facility] 03/22/22 at [place] 2100, Until Discontinu ed, Routine gabapentin 2021-0 Yes 300mg 300 mg, Uni vers (NEURONTIN) 8-18 Oral, QHS, it y of capsule 300 02:00: First dose [place] mg 00 on [facility] 03/22/22 at [place] 2100, Until Discontinu ed, Routine simvastatin 2021-0 Yes 20mg 20 mg, Univ ers (ZOCOR) 818 Oral, QHS, ity of tablet 20 02:00: First dose [place] mg 00 on [facility] 03/22/22 at [place] 2100, Until Discontinu ed, Routine gabapentin 2021-0 Yes 300mg 300 mg, Uni vers (NEURONTIN) 8-18 Oral, QHS, it y of capsule 300 02:00: First dose [place] mg 00 on [facility] 03/22/22 at [place] 2100, Until Discontinu ed, Routine simvastatin 2021-0 2022- No 20mg 20 mg, Uni vers (ZOCOR) 03-23 Oral, QHS, ity o f tablet 20 02:00: 05:28 First dose [place] mg 00 :43 on [facility] 03/22/22 at [place] 2100, Until Discontinu ed, Routine gabapentin 2021-0 2022- No 300mg 300 mg, Un yan (NEURONTIN) 03-23 Oral, QHS, i ty of capsule 300 02:00: 05:28 First dose [place] mg 00 :43 on [facility] 03/22/22 at [place] 2100, Until Discontinu ed, Routine QUEtiapine 2021-0 Yes 200mg 200 mg, Uni vers (SEROQUEL) 8-18 Oral, BID, ity of tablet 200 01:00: First dose [place] mg 00 on [facility] 03/22/22 at Branch 2000, Until Discontinu ed, Routine QUEtiapine 2021-0 Yes 200mg 200 mg, Uni vers (SEROQUEL) 8-18 Oral, BID, ity of tablet 200 01:00: First dose [place] mg 00 on [facility] 03/22/22 at Branch 2000, Until Discontinu ed, Routine QUEtiapine 2021-0 2022- No 200mg 200 mg, Un yan (SEROQUEL) 03-23 Oral, BID, it y of tablet 200 01:00: 05:28 First dose [place] mg 00 :43 on [facility] 03/22/22 at Branch 2000, Until Discontinu ed, Routine acetaminoph 2021-0 Yes 650mg 650 mg, Un yan en 03-22 Oral, ity of (TYLENOL) 23:39: Q6HPRN, [place] tablet 650 24 Starting Medic al mg on [facility] Branch 03/22/22 at 1839, Until Discontinu ed, Routine, Pain (scale 1-3) acetaminoph 0 Yes 650mg 650 mg, Un yan en 03-22 Oral, ity of (TYLENOL) 23:39: Q6HPRN, [place] tablet 650 24 Starting Medic al mg on [facility] Branch 03/22/22 at 1839, Until Discontinu ed, Routine, Pain (scale 1-3) acetaminoph 2021- No 650mg 650 mg, U nivers en 03-22 Oral, ity of (TYLENOL) 23:39: 05:28 Q6HPRN, [place] tablet 650 24 :43 Starting Medic al mg on [facility] Branch 03/22/22 at 1839, Until 03/25/22 at 0028, Routine, Pain (scale 1-3) traMADoL 2021-0 Yes 50mg 50 mg, Univers (ULTRAM) 03-22 Oral, ity of tablet 50 23:12: Q6HPRN, [place] mg 10 Starting Medical on [facility] Branch 03/22/22 at 1812, Until Discontinu ed, Routine, Pain (scale 7-10) traMADoL 2021-0 Yes 50mg 50 mg, Univers (ULTRAM) 03-22 [...] on [facility] Branch 03/22/22 at 1812, Until 8/20/22 at 0028, Routine, Pain (scale 7-10) Sliding 2021-0 Yes Subcutaneo Univ ers Scale 8-17 us, TID ity of Insulin - 22:00: MEALS+HS, [place] Lispro 00 First dose Medical (HumaLOG) + on [facility] 03/22/22 at Testing 1700, Until Discontinu ed, Routine Sliding 2021-0 Yes Subcutaneo Univ ers Scale 8-17 us, TID ity of Insulin - 22:00: MEALS+HS, [place] Lispro 00 First dose Medical (HumaLOG) + on [facility] Branch [facility] 03/22/22 at Testing 1700, Until Discontinu ed, Routine Sliding 2021-0 202- No Subcutaneo Uni vers Scale 8-17 08-20 [...] swallow or has mental status changes. pantoprazol 2021-0 Yes 8mg/h 8 mg/hr Un yan e 03-22 (50 ity of (PROTONIX) 18:45: mL/hr), IV [place] 80 mg in 00 Infusion, Medica l NaCl 0.9% CONTINUOUS Bran ch (NS) 500 mL , Starting infusion on Sun03/22/22 at 1345 pantoprazol 2021-0 2022- No 8mg/h 8 mg/hr U nivers [...] 10 mL 57 Starting Medical on Sun [place] 03/22/22 at 1306, Until Discontinu ed, Routine, [...] Discontinu ed, Routine, line maintenanc e lidocaine Yes 5mL 5 mL, Univers 1% (PF) 03-22 Subcutaneo ity of (XYLOCAINE) 18:06: us, PRN, [place] injection 5 57 Starting Medi gregg mL on [facility] Branch 03/22/22 at 1306, Until Discontinu ed, Routine, Local anesthesia NaCl 0.9% 2021- No 10mL 10 mL, Unive rs [...] ity o f mg tablet 15:57: at [place] [address] bedtime. Medical Branch QUEtiapine Yes quetiapine U nivers 200 mg 03-22 200 mg ity of tablet 15:57: tablet [place] [address] TAKE 1 Medical TABLET BY Branch MOUTH TWICE DAILY levothyroxi Yes levothyrox Univers ne 175 mcg 03-22 ine 175 ity of tablet 15:57: mcg tablet [place] [address] TAKE 1 Medical TABLET BY Branch MOUTH EVERY MORNING gabapentin Yes gabapentin U nivers 300 mg 03-22 300 mg ity of capsule 15:57: capsule [place] [address] TAKE 1 Medical CAPSULE BY Branch MOUTH AT BEDTIME DULoxetine Yes duloxetine U nivers 60 mg 03-22 60 mg ity of capsule 15:57: capsule,de [place] 46 layed Medical release [place] TAKE 1 CAPSULE BY MOUTH TWICE DAILY [...] 150 mg ity of tablet 10:34: tablet [place] 54 TAKE 1 TO Medical 2 TABLETS [...] 40 mg ity o f tablet 10:34: tablet,del [place] 54 ayed Medical release Branch TAKE 1 TABLET [...] meloxicam Yes meloxicam Uni vers 15 mg 8-17 15 mg ity of tablet 10:34: tablet [place] 54 TAKE 1 Medical TABLET BY Branch MOUTH EVERY DAY losartan 50 Yes losartan Un yan mg tablet 8-17 50 mg ity of 10:34: tablet [place] 54 TAKE 1 Medical TABLET BY Branch MOUTH TWICE DAILY divalproex Yes divalproex U nivers 500 mg EC 8-17 500 mg ity of tablet 10:34: tablet,del [place] 54 ayed Medical release Branch TAKE 1 TABLET BY MOUTH DAILY amLODIPine Yes amlodipine U nivers 5 mg tablet 8- 5 mg ity of 10:34: tablet [place] [...] f mg tablet 17:58: at [place] [address] bedtime. Medical Branch acetaminoph Yes acetaminop Univers [...] spironolact Yes spironolac Univers one 25 mg -17 tone 25 mg ity of tablet 17:58: [...] mg ity o f tablet 17:58: tablet,del [place] 36 ayed Medical release [place] TAKE 1 TABLET BY MOUTH EVERY DAY [...] mcg - ine 175 ity of tablet 17:58: mcg tablet [place] 36 TAKE 1 Medical TABLET BY Branch MOUTH EVERY MORNING gabapentin Yes gabapentin U nivers 300 mg - 300 mg ity of capsule 17:58: capsule [place] 36 TAKE 1 Medical CAPSULE BY Branch MOUTH AT BEDTIME DULoxetine Yes duloxetine U nivers 60 mg - 60 mg ity of capsule 17:58: capsule,[place] 36 layed Medical release Branch TAKE 1 CAPSULE BY MOUTH TWICE DAILY divalproex Yes divalproex U nivers 500 mg EC 6-17 500 mg ity of tablet 17:58: tablet,del [...] MCG 00:00: 200 MCG 00 Levothyroxi Levothyroxi 0 No QD Levothyrox ne Sodium ne Sodium 5-04 ine Sodium 200 MCG 200 MCG 00:00: 200 MCG 00 Levothyroxi Levothyroxi 0 No QD Levothyrox ne Sodium ne Sodium 5-04 ine Sodium 200 MCG 200 MCG 00:00: 200 MCG 00 Levothyroxi Levothyroxi 0 No QD Levothyrox ne Sodium ne Sodium [...] 00 :00 _ounces _of_flu id} Polyethylen Polyethylen 2- No 1{packe QD Polyethyle e Glycol e [...] 1{puff_ 6xD Albuterol Sulfate HFA Sulfate HFA 1- as_need Sulfate 108 (90 108 (90 00:00: [...] (90 Base) MCG/ACT MCG/ACT MCG/ACT Amoxicillin Amoxicillin 0 2021- No 1{capsu TID [...] :00 Strips Strips 2020-2021- No QD Strips -17 05-16 00:00: 00:00 00 :00 Strips Strips 2020-2021- No QD Strips 17 16 00:00: 00:00 00 :00 Strips Strips 2020-2021- No QD Strips 17 -16 00:00: 00:00 00 :00 Strips Strips 2020-2021- No QD Strips 08-22 00:00: 00:00 00 :00 Glucometer Glucometer 2020-2021- No Glucometer n/s n/s 1-17 -15 n/s 00:00: 00:00 00 :00 Glucometer Glucometer 2020-2021- No Glucometer n/s n/s -17 15 n/s 00:00: 00:00 00 :00 Glucometer Glucometer 2020-2021- No Glucometer n/s n/s -15 n/s 00:00: 00:00 00 :00 Glucometer [...] n/s 00:00: 00:00 00 :00 Glucometer Glucometer 2021-1 2022- No Glucometer n/s n/s 08-22-15 n/s 00:00: 00:00 00 :00 Glucometer Glucometer 2020-08- No Glucometer n/s n/s 117 -15 n/s 00:00: 00:00 00 :00 Glucometer Glucometer 2020-08- No Glucometer n/s n/s 1-15 n/s 00:00: 00:00 00 :00 Montelukast Montelukast No 1{table Montelukas Sodium 10 Sodium 10 9-15 t} t Sodium MG MG 00:00: 10 MG 00 dicyclomine Yes [id number] 10mg Take 1 Univers 10 mg 6-25 capsule by ity of capsule 00:00: mouth 3 (three) Medical times Branch daily as needed for Abdominal pain. loperamide Yes [id number] 2mg Take 1 U nivers 2 mg 6-25 capsule by ity of capsule 00:00: mouth [place] 00 every 4 Medical (four) Branch hours as needed for Diarrhea. dicyclomine Yes [id number] 10mg Take 1 Univers 10 mg 6-25 capsule by ity of capsule 00:00: mouth 3 (three) Medical times Branch daily as needed for Abdominal pain. loperamide Yes [id number] 2mg Take 1 U nivers 2 mg 6-25 capsule by ity of capsule 00:00: mouth [place] 00 every 4 Medical (four) Branch hours as needed for Diarrhea. dicyclomine 0 Yes [id number] 10mg Take 1 Univers 10 mg 6-25 capsule by ity of capsule 00:00: mouth 3 [place] 00 (three) Medical times Branch daily as needed for Abdominal pain. loperamide 0 Yes [id number] 2mg Take 1 U nivers 2 mg 6-25 capsule by ity of capsule 00:00: mouth [place] 00 every 4 Medical (four) Branch hours as needed for Diarrhea. dicyclomine 0 Yes [id number] 10mg Take 1 Univers 10 mg 6-25 capsule by ity of capsule 00:00: mouth 3 (three) Medical times Branch daily as needed for Abdominal pain. loperamide 2020-0 Yes [id number] 2mg Take 1 U nivers 2 mg 6-25 capsule by ity of capsule 00:00: mouth [place] 00 every 4 Medical (four) Branch hours as needed for Diarrhea. dicyclomine 2020-0 Yes [id number] 10mg Take 1 Univers 10 mg 6-25 capsule by ity of capsule 00:00: mouth 3 (three) Medical times Branch daily as needed for Abdominal pain. loperamide 2020-0 Yes [id number] 2mg Take 1 U nivers 2 mg 6-25 capsule by ity of capsule 00:00: mouth [place] 00 every 4 Medical (four) Branch hours as needed for Diarrhea. dicyclomine 2020-0 Yes [id number] 10mg Take 1 Univers 10 mg 6-25 capsule by ity of capsule 00:00: mouth (three) Medical times Branch daily as needed for Abdominal pain. loperamide 0 Yes [id number] 2mg Take 1 U nivers 2 mg 6-25 capsule by ity of capsule 00:00: mouth 00 every 4 Medical (four) Branch hours as needed for Diarrhea. dicyclomine 2020-0 Yes [id number] 10mg Take 1 Univers 10 mg 6-25 capsule by ity of capsule 00:00: mouth (three) Medical times Branch daily as needed for Abdominal pain. loperamide 2020-0 Yes [id number] 2mg Take 1 U nivers 2 mg 6-25 capsule by ity of capsule 00:00: mouth 00 every 4 Medical (four) Branch hours as needed for Diarrhea. dicyclomine 2020-0 Yes [id number] 10mg Take 1 Univers 10 mg 6-25 capsule by ity of capsule 00:00: mouth 3 (three) Medical times Branch daily as needed for Abdominal pain. loperamide 2020-0 Yes [id number] 2mg Take 1 U nivers 2 mg 6-25 capsule by ity of capsule 00:00: mouth [place] 00 every 4 Medical (four) Branch hours as needed for Diarrhea. dicyclomine 2020-0 Yes [id number] 10mg Take 1 Univers 10 mg 6-25 capsule by ity of capsule 00:00: mouth 3 (three) Medical times Branch daily as needed for Abdominal pain. loperamide 2020-0 Yes [id number] 2mg Take 1 U nivers 2 mg 6-25 capsule by ity of capsule 00:00: mouth [place] 00 every 4 Medical (four) Branch hours as needed for Diarrhea. dicyclomine 2020-0 Yes [id number] 10mg Take 1 Univers 10 mg 6-25 capsule by ity of capsule 00:00: mouth 3 [place] 00 (three) Medical times Branch daily as needed for Abdominal pain. loperamide 2020-0 Yes [id number] 2mg Take 1 U nivers 2 mg 6-25 capsule by ity of capsule 00:00: mouth [place] 00 every 4 Medical (four) Branch hours as needed for Diarrhea. dicyclomine 2020-0 Yes [id number] 10mg Take 1 Univers 10 mg 6-25 capsule by ity of capsule 00:00: mouth 3 (three) Medical times Branch daily as needed for Abdominal pain. loperamide 2020-0 Yes [id number] 2mg Take 1 U nivers 2 mg 6-25 capsule by ity of capsule 00:00: mouth [place] 00 every 4 Medical (four) Branch hours as needed for Diarrhea. dicyclomine 0 Yes [id number] 10mg Take 1 Univers 10 mg 6-25 capsule by ity of capsule 00:00: mouth (three) Medical times Branch daily as needed for Abdominal pain. loperamide 2020-0 Yes [id number] 2mg Take 1 U nivers 2 mg 6-25 capsule by ity of capsule 00:00: mouth [place] 00 every 4 Medical (four) Branch hours as needed for Diarrhea. dicyclomine 2020-0 Yes [id number] 10mg Take 1 Univers 10 mg 6-25 capsule by ity of capsule 00:00: mouth 3 (three) Medical times Branch daily as needed for Abdominal pain. loperamide 2020-0 Yes [id number] 2mg Take 1 U nivers 2 mg 6-25 capsule by ity of capsule 00:00: mouth [place] 00 every 4 Medical (four) Branch hours as needed for Diarrhea. dicyclomine 2020-0 Yes [id number] 10mg Take 1 Univers 10 mg 6-25 capsule by ity of capsule 00:00: mouth 3 00 (three) Medical times Branch daily as needed for Abdominal pain. loperamide 2020-0 Yes [id number] 2mg Take 1 U nivers 2 mg 6-25 capsule by ity of capsule 00:00: mouth [place] 00 every 4 Medical (four) Branch hours as needed for Diarrhea. dicyclomine 2020-0 Yes [id number] 10mg Take 1 Univers 10 mg 6-25 capsule by ity of capsule 00:00: mouth 3 00 (three) Medical times Branch daily as needed for Abdominal pain. loperamide 2020-0 Yes [id number] 2mg Take 1 U nivers 2 mg 6-25 capsule by ity of capsule 00:00: mouth [place] 00 every 4 Medical (four) Branch hours as needed for Diarrhea. dicyclomine 0 Yes [id number] 10mg Take 1 Univers 10 mg 6-25 capsule by ity of capsule 00:00: mouth 3 (three) Medical times Branch daily as needed for Abdominal pain. loperamide 0 Yes [id number] 2mg Take 1 U nivers 2 mg 6-25 capsule by ity of capsule 00:00: mouth [place] 00 every 4 Medical (four) Branch hours as needed for Diarrhea. dicyclomine 0 Yes [id number] 10mg Take 1 Univers 10 mg 6-25 capsule by ity of capsule 00:00: mouth (three) Medical times Branch daily as needed for Abdominal pain. loperamide 0 Yes [id number] 2mg Take 1 U nivers 2 mg 6-25 capsule by ity of capsule 00:00: mouth [place] 00 every 4 Medical (four) Branch hours as needed for Diarrhea. dicyclomine 2020-0 Yes [id number] 10mg Take 1 Univers 10 mg 6-25 capsule by ity of capsule 00:00: mouth 3 (three) Medical times Branch daily as needed for Abdominal pain. loperamide 2020-0 Yes [id number] 2mg Take 1 U nivers 2 mg 6-25 capsule by ity of capsule 00:00: mouth [place] 00 every 4 Medical (four) Branch hours as needed for Diarrhea. dicyclomine 2020-0 Yes [id number] 10mg Take 1 Univers 10 mg 6-25 capsule by ity of capsule 00:00: mouth 3 (three) Medical times Branch daily as needed for Abdominal pain. loperamide 2020-0 Yes [id number] 2mg Take 1 U nivers 2 mg 6-25 capsule by ity of capsule 00:00: mouth [place] 00 every 4 Medical (four) Branch hours as needed for Diarrhea. dicyclomine 2020-0 Yes [id number] 10mg Take 1 Univers 10 mg 6-25 capsule by ity of capsule 00:00: mouth 3 00 (three) Medical times Branch daily as needed for Abdominal pain. loperamide 2020-0 Yes [id number] 2mg Take 1 U nivers 2 mg 6-25 capsule by ity of capsule 00:00: mouth [place] 00 every 4 Medical (four) Branch hours as needed for Diarrhea. dicyclomine 2020-0 Yes [id number] 10mg Take 1 Univers 10 mg 6-25 capsule by ity of capsule 00:00: mouth (three) Medical times Branch daily as needed for Abdominal pain. loperamide 2020-0 Yes [id number] 2mg Take 1 U nivers 2 mg 6-25 capsule by ity of capsule 00:00: mouth 00 every 4 Medical (four) Branch hours as needed for Diarrhea. dicyclomine 2020-0 Yes [id number] 10mg Take 1 Univers 10 mg 6-25 capsule by ity of capsule 00:00: mouth (three) Medical times Branch daily as needed for Abdominal pain. loperamide 2020-0 Yes [id number] 2mg Take 1 U nivers 2 mg 6-25 capsule by ity of capsule 00:00: mouth 00 every 4 Medical (four) Branch hours as needed for Diarrhea. dicyclomine 2020-0 Yes [id number] 10mg Take 1 Univers 10 mg 6-25 capsule by ity of capsule 00:00: mouth 3 (three) Medical times Branch daily as needed for Abdominal pain. loperamide 2020-0 Yes [id number] 2mg Take 1 U nivers 2 mg 6-25 capsule by ity of capsule 00:00: mouth [place] 00 every 4 Medical (four) Branch hours as needed for Diarrhea. dicyclomine 2020-0 Yes [id number] 10mg Take 1 Univers 10 mg 6-25 capsule by ity of capsule 00:00: mouth 3 (three) Medical times Branch daily as needed for Abdominal pain. loperamide 2020-0 Yes [id number] 2mg Take 1 U nivers 2 mg 6-25 capsule by ity of capsule 00:00: mouth [place] 00 every 4 Medical (four) Branch hours as needed for Diarrhea. dicyclomine 2020-0 Yes [id number] 10mg Take 1 Univers 10 mg 6-25 capsule by ity of capsule 00:00: mouth 3 (three) Medical times Branch daily as needed for Abdominal pain. loperamide 2020-0 Yes [id number] 2mg Take 1 U nivers 2 mg 6-25 capsule by ity of capsule 00:00: mouth [place] 00 every 4 Medical (four) Branch hours as needed for Diarrhea. dicyclomine 2020-0 Yes [id number] 10mg Take 1 [facility] 10 mg 6-25 capsule by ity of capsule 00:00: mouth 3 (three) Medical times Branch daily as needed for Abdominal pain. loperamide 2020-0 Yes [id number] 2mg Take 1 [facility] nivers 2 mg 6-25 capsule by ity of capsule 00:00: mouth [place] 00 every 4 Medical (four) Branch hours as needed for Diarrhea. dicyclomine 2020-0 Yes [id number] 10mg Take 1 [facility] 10 mg 6-25 capsule by ity of capsule 00:00: mouth (three) Medical times Branch daily as needed for Abdominal pain. loperamide 2020-0 Yes [id number] 2mg Take 1 [facility] 2 mg 6-25 capsule by ity of capsule 00:00: mouth [place] 00 every 4 Medical (four) Branch hours as needed for Diarrhea. dicyclomine 2020-0 Yes [id number] 10mg Take 1 [facility] 10 mg 6-25 capsule by ity of capsule 00:00: mouth 3 (three) Medical times Branch daily as needed for Abdominal pain. loperamide 2020-0 Yes [id number] 2mg Take 1 [facility] 2 mg 6-25 capsule by ity of capsule 00:00: mouth [place] 00 every 4 Medical (four) Branch hours as needed for Diarrhea. dicyclomine 2020-0 Yes [id number] 10mg Take 1 [facility] 10 mg 6-25 capsule by ity of capsule 00:00: mouth 3 (three) Medical times Branch daily as needed for Abdominal pain. loperamide 2020-0 Yes [id number] 2mg Take 1 [facility] 2 mg 6-25 capsule by ity of capsule 00:00: mouth [place] 00 every 4 Medical (four) Branch hours as needed for Diarrhea. dicyclomine 2020-0 Yes [id number] 10mg Take 1 [facility] 10 mg 6-25 capsule by ity of capsule 00:00: mouth 3 (three) Medical times Branch daily as needed for Abdominal pain. loperamide 2020-0 Yes [id number] 2mg Take 1 [facility] 2 mg 6-25 capsule by ity of capsule 00:00: mouth [place] 00 every 4 Medical (four) Branch hours as needed for Diarrhea. dicyclomine 2020-0 Yes [id number] 10mg Take 1 [facility] 10 mg 6-25 capsule by ity of capsule 00:00: mouth 3 (three) Medical times Branch daily as needed for Abdominal pain. loperamide 2020-0 Yes [id number] 2mg Take 1 [facility] 2 mg 6-25 capsule by ity of capsule 00:00: mouth [place] 00 every 4 Medical (four) Branch hours as needed for Diarrhea. dicyclomine 2020-0 Yes [id number] 10mg Take 1 [facility] 10 mg 6-25 capsule by ity of capsule 00:00: mouth 3 (three) Medical times Branch daily as needed for Abdominal pain. loperamide 2020-0 Yes [id number] 2mg Take 1 [facility] 2 mg 6-25 capsule by ity of capsule 00:00: mouth [place] 00 every 4 Medical (four) Branch hours as needed for Diarrhea. dicyclomine 2020-0 Yes [id number] 10mg Take 1 [facility] 10 mg 6-25 capsule by ity of capsule 00:00: mouth 3 (three) Medical times Branch daily as needed for Abdominal pain. loperamide 2020-0 Yes [id number] 2mg Take 1 [facility] 2 mg 6-25 capsule by ity of capsule 00:00: mouth [place] 00 every 4 Medical (four) Branch hours as needed for Diarrhea. dicyclomine 1-0 Yes [id number] 10mg Take 1 [facility] 10 mg 6-25 capsule by ity of capsule 00:00: mouth 3 00 (three) Medical times Branch daily as needed for Abdominal pain. loperamide 2020-0 Yes [id number] 2mg Take 1 [facility] 2 mg 6-25 capsule by ity of capsule 00:00: mouth [place] 00 every 4 Medical (four) Branch hours as needed for Diarrhea. dicyclomine 2020-0 Yes [id number] 10mg Take 1 [facility] 10 mg 6-25 capsule by ity of capsule 00:00: mouth 3 (three) Medical times Branch daily as needed for Abdominal pain. loperamide 2020-0 Yes [id number] 2mg Take 1 [facility] 2 mg 6-25 capsule by ity of capsule 00:00: mouth [place] 00 every 4 Medical (four) Branch hours as needed for Diarrhea. dicyclomine 2020-0 Yes [id number] 10mg Take 1 [facility] 10 mg 6-25 capsule by ity of capsule 00:00: mouth (three) Medical times Branch daily as needed for Abdominal pain. loperamide 2020-0 Yes [id number] 2mg Take 1 [facility] 2 mg 6-25 capsule by ity of capsule 00:00: mouth 00 every 4 Medical (four) Branch hours as needed for Diarrhea. dicyclomine 2020-0 Yes [id number] 10mg Take 1 [facility] 10 mg 6-25 capsule by ity of capsule 00:00: mouth (three) Medical times Branch daily as needed for Abdominal pain. loperamide 2020-0 Yes [id number] 2mg Take 1 [facility] 2 mg 6-25 capsule by ity of capsule 00:00: mouth 00 every 4 Medical (four) Branch hours as needed for Diarrhea. dicyclomine 2020-0 Yes [id number] 10mg Take 1 [facility] 10 mg 6-25 capsule by ity of capsule 00:00: mouth (three) Medical times Branch daily as needed for Abdominal pain. loperamide 2020-0 Yes [id number] 2mg Take 1 [facility] 2 mg 6-25 capsule by ity of capsule 00:00: mouth 00 every 4 Medical (four) Branch hours as needed for Diarrhea. dicyclomine 2020-0 Yes [id number] 10mg Take 1 [facility] 10 mg 6-25 capsule by ity of capsule 00:00: mouth 3 (three) Medical times Branch daily as needed for Abdominal pain. loperamide 2020-0 Yes [id number] 2mg Take 1 [facility] 2 mg 6-25 capsule by ity of capsule 00:00: mouth [place] 00 every 4 Medical (four) Branch hours as needed for Diarrhea. dicyclomine 2020-0 Yes [id number] 10mg Take 1 [facility] 10 mg 6-25 capsule by ity of capsule 00:00: mouth 3 (three) Medical times Branch daily as needed for Abdominal pain. loperamide 2020-0 Yes [id number] 2mg Take 1 [facility] 2 mg 6-25 capsule by ity of capsule 00:00: mouth every 4 Medical (four) Branch hours as needed for Diarrhea. dicyclomine 2020-0 Yes [id number] 10mg Take 1 [facility] 10 mg 6-25 capsule by ity of capsule 00:00: mouth (three) Medical times Branch daily as needed for Abdominal pain. loperamide 2020-0 Yes [id number] 2mg Take 1 [facility] 2 mg 6-25 capsule by ity of capsule 00:00: mouth 00 every 4 Medical (four) Branch hours as needed for Diarrhea. dicyclomine 2020-0 Yes [id number] 10mg Take 1 [facility] 10 mg 6-25 capsule by ity of capsule 00:00: mouth (three) Medical times Branch daily as needed for Abdominal pain. loperamide 2020-0 Yes [id number] 2mg Take 1 [facility] 2 mg 6-25 capsule by ity of capsule 00:00: mouth 00 every 4 Medical (four) Branch hours as needed for Diarrhea. dicyclomine 2020-0 Yes [id number] 10mg Take 1 [facility] 10 mg 6-25 capsule by ity of capsule 00:00: mouth (three) Medical times Branch daily as needed for Abdominal pain. loperamide 2020-0 Yes [id number] 2mg Take 1 [facility] 2 mg 6-25 capsule by ity of capsule 00:00: mouth 00 every 4 Medical (four) Branch hours as needed for Diarrhea. dicyclomine 2020-0 Yes [id number] 10mg Take 1 [facility] 10 mg 6-25 capsule by ity of capsule 00:00: mouth 3 (three) Medical times Branch daily as needed for Abdominal pain. loperamide 2020-0 Yes [id number] 2mg Take 1 [facility] 2 mg 6-25 capsule by ity of capsule 00:00: mouth 00 every 4 Medical (four) Branch hours as needed for Diarrhea. dicyclomine 2020-0 Yes [id number] 10mg Take 1 [facility] 10 mg 6-25 capsule by ity of capsule 00:00: mouth (three) Medical times Branch daily as needed for Abdominal pain. loperamide 2020-0 Yes [id number] 2mg Take 1 [facility] 2 mg 6-25 capsule by ity of capsule 00:00: mouth every 4 Medical (four) Branch hours as needed for Diarrhea. dicyclomine 2020-0 Yes [id number] 10mg Take 1 [facility] 10 mg 6-25 capsule by ity of capsule 00:00: mouth (three) Medical times Branch daily as needed for Abdominal pain. loperamide 2020-0 Yes [id number] 2mg Take 1 [facility] nivers 2 mg 6-25 capsule by ity of capsule 00:00: mouth every 4 Medical (four) Branch hours as needed for Diarrhea. dicyclomine 2020-0 Yes [id number] 10mg Take 1 [facility] 10 mg 6-25 capsule by ity of capsule 00:00: mouth (three) Medical times Branch daily as needed for Abdominal pain. loperamide 2020-0 Yes [id number] 2mg Take 1 [facility] 2 mg 6-25 capsule by ity of capsule 00:00: mouth every 4 Medical (four) Branch hours as needed for Diarrhea. dicyclomine 2020-0 Yes [id number] 10mg Take 1 [facility] 10 mg 6-25 capsule by ity of capsule 00:00: mouth (three) Medical times Branch daily as needed for Abdominal pain. loperamide 2020-0 Yes [id number] 2mg Take 1 [facility]ivers 2 mg 6-25 capsule by ity of capsule 00:00: mouth every 4 Medical (four) Branch hours as needed for Diarrhea. Toradol Toradol 0 No 60mg Common (Ketorolac) (Ketorolac) 3-17 S pirit 00:00: - [facility] 00 [facility] Toradol Toradol 0 No 60mg Common (Ketorolac) (Ketorolac) 3-17 S pirit 00:00: - [facility] Toradol Toradol 2021-0 No 60mg Common (Ketorolac) (Ketorolac) 3-17 S pirit 00:00: - [facility] 00 [facility] Toradol Toradol 2020-0 No 60mg Common (Ketorolac) (Ketorolac) 3-17 S pirit 00:00: - [facility] 00 [facility] Toradol Toradol 2020-0 No 60mg Common (Ketorolac) (Ketorolac) 3-17 S pirit 00:00: - [facility] 00 [facility] Toradol Toradol 2020-0 No 60mg Common (Ketorolac) (Ketorolac) 3-17 S pirit 00:00: - [facility] 00 [facility] Desloratadi Desloratadi 1-0 No 1{table QD Desloratad ne 5 MG [...] 3-17 S pirit 00:00: - [facility] 00 [facility] Desloratadi Desloratadi 1-0 No 1{table QD Desloratad ne 5 MG ne 5 MG 3-17 t} ine 5 MG 00:00: 00 Toradol Toradol 2020-0 No 60mg Common (Ketorolac) (Ketorolac) 3-17 S pirit 00:00: - [facility] 00 [facility] Desloratadi Desloratadi 1-0 No 1{table QD Desloratad ne 5 MG ne 5 MG 3-17 t} ine 5 MG 00:00: 00 Toradol Toradol 2020-0 No 60mg Common (Ketorolac) (Ketorolac) 3-17 S pirit 00:00: - [facility] 00 [facility] Desloratadi Desloratadi 2021-0 No 1{table QD Desloratad ne 5 MG ne 5 MG 3-17 t} ine 5 MG 00:00: 00 Toradol Toradol 0 No 60mg Common (Ketorolac) (Ketorolac) 3-17 S pirit 00:00: - [facility] Toradol Toradol 0 No 60mg Common (Ketorolac) (Ketorolac) 3-17 S pirit 00:00: - [facility] Toradol Toradol 0 No 60mg Common (Ketorolac) (Ketorolac) 3-17 S pirit 00:00: - [facility] Toradol Toradol 0 No 60mg Common (Ketorolac) (Ketorolac) 3-17 S pirit 00:00: - [facility] Toradol Toradol 0 No 60mg Common (Ketorolac) (Ketorolac) 3-17 S pirit 00:00: - [facility] Toradol Toradol 0 No 60mg Common (Ketorolac) (Ketorolac) 3-17 S pirit 00:00: - [facility] Toradol Toradol 0 No 60mg Common (Ketorolac) (Ketorolac) 3-17 S pirit 00:00: - [facility] tiZANidine 0 Yes TAKE 1 Unive rs [...] 1 tablet Common ne Sodium ne Sodium 4 [place] in the Sp coretta 00:00: morning on an empty [facility] traZODone traZODone No traZODone HCl 150 MG [...] Simvastatin No 1{table QD Simvastati 20 20 t_in n 20 e_eveni ng} Levothyroxi Levothyroxi No [...] Simvastatin No 1{table QD Simvastati 20 20 t_in n 20 e_eveni ng} Levothyroxi Levothyroxi No [...] 1 tablet Common ne Sodium ne Sodium [place] in the Sp coretta morning on - [facility] an empty [facility] stomach to [facility] 225mcg Center daily Gabapentin Gabapentin Yes Ruth TK 2 Co mmon [place] CAPSULES Spirit PO QID PRN - [facility] Ondansetron Ondansetron Yes Ruth TK 1 T PO Common HCl HCl [place] QD FOR 10 Spirit DAYS PRN [facility] Duloxetine Duloxetine Yes Ruth not Co mmon HCl HCl [place] defined [facility] Breo Breo Yes Ruth 1 puff Common Ellipta Ellipta [place] [facility] Topiramate Topiramate Yes Urth 1 tablet Common [place] Spirit [facility] Albuterol Albuterol Yes Ruth 3 ml as C ommon Sulfate Sulfate [place] needed [facility] Trazodone Trazodone Yes Ruth TK 1 TO 2 Common HCl HCl [place] TS PO HS Spirit PRF - [facility] INSOMNIA [facility] Tizanidine Tizanidine Yes Ruth 1 tablet Common HCl HCl [place] as needed [facility] Norvasc Norvasc Yes Ruth 1 tablet Comm on [place] [facility] Estradiol Estradiol Yes Ruth as Comm on [place] directed [facility] Sucralfate Sucralfate Yes Ruth 1 tablet Common [place] on an Spirit empty - [facility] stomach [facility] Nystatin Nystatin Yes Ruth 1 Common [place] applicatio Spirit n [facility] Albuterol Albuterol Yes Ruth INL 2 PFS Common Sulfate HFA Sulfate HFA [place] PO Q 6 H Spirit PRN [facility] Meloxicam Meloxicam Yes Ruth TK 1 T PO Common [place] QD [facility] Loratadine Loratadine Yes Ruth TK 1 T PO Common [place] QD FOR Spirit ALLERGIES - [facility] Simvastatin Simvastatin Yes Ruth 1 tablet Common [place] in the Spirit evening [facility] Pantoprazol Pantoprazol Yes Ruth 1 tablet Common e Sodium e Sodium [place] [facility] Lorazepam Lorazepam Yes Ruth 1 tablet Common [place] at bedtime Spirit as needed - [facility] Metformin Metformin Yes Ruth TAKE 1 Co mmon HCl HCl [place] TABLET BY [facility] MOUTH - [facility] TWICE St DAILY WITH [facility] Divalproex Divalproex Yes Ruth 1 tablet Common Sodium ER Sodium ER [place] Spir [facility] Quetiapine Quetiapine Yes Ruth 1 tablet Common Fumarate Fumarate [place] at bedtime [facility] Tramadol Tramadol Yes Ruth 1 tablet Co mmon HCl HCl [place] as needed [facility] Botox Botox Yes Ruth as Common [place] directed [facility] Januvia Januvia Yes Ruth 1 tablet Comm on [place] [facility] Divalproex Divalproex Yes Ruth 3 tabs Common Sodium ER Sodium ER [place] Spir [facility] Simvastatin Simvastatin Yes Ruth TAKE 1 Common [place] TABLET BY [facility] EVERY DAY St IN [facility] Losartan Losartan Yes Ruth 1 tablet Co mmon Potassium Potassium [place] Spir [facility] Simvastatin Simvastatin No 1{table QD Simvastati 20 [...] 300 MG Nystatin Nystatin No 1{appli Nystatin [id number] cation} [id number] UNIT/GM UNIT/GM UNIT/GM LORazepam LORazepam No 1{table [...] Meloxicam 15 MG 15 MG 15 MG Loratadine Loratadine 2021- No 1{table QD [...] t} 10 MG 00:00 :00 Oxybutynin Oxybutynin 2020- No Ruth 1 tablet Common Chloride Chloride 10-31 [place] Spiri t 00:00 - [facility] :00 [facility] Immunizations Ordered Immunization Filled Immunization Date Status Commen ts Source Name Name Flucelvax - Flucelvax - 2022-05-03 Completed Common Spiri t multidose vial multidose vial 14:53:00 - [facility] Flucelvax - Flucelvax - 2022-05-03 Completed Common Spiri t multidose vial multidose vial 14:53:00 - [facility] Flucelvax - Flucelvax - 2022-05-03 Completed Common Spiri t multidose vial multidose vial 14:53:00 [facility] Flucelvax - Flucelvax - 2022-05-03 Completed Common Spiri t multidose vial multidose vial 14:53:00 - [facility] Flucelvax - Flucelvax - 2021-05-18 Completed Common Spiri t multidose vial multidose vial 16:08:00 - [facility] Flucelvax - Flucelvax - 2021-05-18 Completed Common Spiri t multidose vial multidose vial 16:08:00 - [facility] Flucelvax - Flucelvax - 2021-05-18 Completed Common Spiri t multidose vial multidose vial 16:08:00 - [facility] Flucelvax - Flucelvax - 2021-05-18 Completed Common Spiri t multidose vial multidose vial 16:08:00 - [facility] Flucelvax - Flucelvax - 2021-05-18 Completed Common Spiri t multidose vial multidose vial 16:08:00 - [facility] Flucelvax - Flucelvax - 2021-05-18 Completed Common Spiri t multidose vial multidose vial 16:08:00 - [facility] Flucelvax - Flucelvax - 2021-05-18 Completed Common Spiri t multidose vial multidose vial 16:08:00 - [facility] Flucelvax - Flucelvax - 2021-05-18 Completed Common Spiri t multidose vial multidose vial 16:08:00 - [facility] Flucelvax - Flucelvax - 2021-05-18 Completed Common Spiri t multidose vial multidose vial 16:08:00 - [facility] Flucelvax - Flucelvax - 2021-05-18 Completed Common Spiri t multidose vial multidose vial 16:08:00 - [facility] Flucelvax - Flucelvax - 2021-05-18 Completed Common Spiri t multidose vial multidose vial 16:08:00 - [facility] Flucelvax - Flucelvax - 2021-05-18 Completed Common Spiri t multidose vial multidose vial 16:08:00 - [facility] Flucelvax - Flucelvax - 2021-05-18 Completed Common Spiri t multidose vial multidose vial 16:08:00 - [facility] Flucelvax - Flucelvax - 2021-05-18 Completed Common Spiri t multidose vial multidose vial 16:08:00 - [facility] Flucelvax - Flucelvax - 2021-05-18 Completed Common Spiri t multidose vial multidose vial 16:08:00 - [facility] Flucelvax - Flucelvax - 2021-05-18 Completed Common Spiri t multidose vial multidose vial 16:08:00 - [facility] Flucelvax - Flucelvax - 2021-05-18 Completed Common Spiri t multidose vial multidose vial 16:08:00 - [facility] Flucelvax - Flucelvax - 2021-05-18 Completed Common Spiri t multidose vial multidose vial 16:08:00 - [facility] Flucelvax - Flucelvax - 2021-05-18 Completed Common Spiri t multidose vial multidose vial 16:08:00 - [facility] Flucelvax - Flucelvax - 2021-05-18 Completed Common Spiri t multidose vial multidose vial 16:08:00 - [facility] Flucelvax - Flucelvax - 2021-05-18 Completed Common Spiri t multidose vial multidose vial 16:08:00 - [facility] Flucelvax - Flucelvax - 2021-05-18 Completed Common Spiri t multidose vial multidose vial 16:08:00 - [facility] Flucelvax - Flucelvax - 2021-05-18 Completed Common Spiri t multidose vial multidose vial 16:08:00 - [facility] Flucelvax - Flucelvax - 2021-05-18 Completed Common Spiri t multidose vial multidose vial 16:08:00 - [facility] Flucelvax - Flucelvax - 2021-05-18 Completed Common Spiri t multidose vial multidose vial 16:08:00 - [facility] Flucelvax - Flucelvax - 2021-05-18 Completed Common Spiri t multidose vial multidose vial 16:08:00 - [facility] Flucelvax - Flucelvax - 2021-05-18 Completed Common Spiri t multidose vial multidose vial 16:08:00 - [facility] Flucelvax - Flucelvax - 2021-05-18 Completed Common Spiri t multidose vial multidose vial 16:08:00 - [facility] Flucelvax - Flucelvax - 2021-05-18 Completed Common Spiri t multidose vial multidose vial 16:08:00 - [facility] Flucelvax - Flucelvax - 2021-05-18 Completed Common Spiri t multidose vial multidose vial 16:08:00 - [facility] Flucelvax - Flucelvax - 2021-05-18 Completed Common Spiri t multidose vial multidose vial 16:08:00 - [facility] COVID-19 Vaccine COVID-19 Vaccine 2020-10-25 Completed [facility] (Dianne) (Dianne) 13:48:00 - [facility] COVID-19 Vaccine COVID-19 Vaccine 2020-10-25 Completed Co [facility] (Dianne) (Dianne) 13:48:00 [facility] COVID-19 Vaccine COVID-19 Vaccine 2020-10-25 Completed Co [facility] (Dianne) (Dianne) 13:48:00 - [facility] COVID-19 Vaccine COVID-19 Vaccine 2020-10-25 Completed Co [facility] (Dianne) (Dianne) 13:48:00 [facility] COVID-19 Vaccine COVID-19 Vaccine 2020-10-25 Completed Co [facility] (Dianne) (Dianne) 13:48:00 [facility] COVID-19 Vaccine COVID-19 Vaccine 2020-10-25 Completed [facility] (Dianne) (Dianne) 13:48:00 - [facility] COVID-19 Vaccine COVID-19 Vaccine 2020-10-25 Completed [facility] (Dianne) (Dianne) 13:48:00 - [facility] COVID-19 Vaccine COVID-19 Vaccine 2020-10-25 Completed [facility] (Idanne) (Dianne) 13:48:00 - [facility] COVID-19 Vaccine COVID-19 Vaccine 2020-10-25 Completed [facility] (Dianne) (Dianne) 13:48:00 - [facility] COVID-19 Vaccine COVID-19 Vaccine 2020-10-25 Completed [facility] (Dianne) (Dianne) 13:48:00 - [facility] COVID-19 Vaccine COVID-19 Vaccine 2020-10-25 Completed [facility] (Dianne) (Dianne) 13:48:00 - [facility] COVID-19 Vaccine COVID-19 Vaccine 2020-10-25 Completed [facility] (Dianne) (Dianne) 13:48:00 - [facility] COVID-19 Vaccine COVID-19 Vaccine 2020-10-25 Completed [facility] (Dianne) (Dianne) 13:48:00 - [facility] COVID-19 Vaccine COVID-19 Vaccine 2020-10-25 Completed [facility] (Dianne) (Dianne) 13:48:00 [facility] COVID-19 Vaccine COVID-19 Vaccine 2020-10-25 Completed [facility] (Dianne) (Dianne) 13:48:00 [facility] COVID-19 Vaccine COVID-19 Vaccine 2020-10-25 Completed [facility] (Dianne) (Dianne) 13:48:00 - [facility] COVID-19 Vaccine COVID-19 Vaccine 2020-10-25 Completed [facility] (Dianne) (Dianne) 13:48:00 [facility] COVID-19 Vaccine COVID-19 Vaccine 2020-10-25 Completed [facility] (Dianne) (Dianne) 13:48:00 [facility] COVID-19 Vaccine COVID-19 Vaccine 2020-10-25 Completed [facility] (Dianne) (Dianne) 13:48:00 - [facility] COVID-19 Vaccine COVID-19 Vaccine 2020-10-25 Completed [facility] (Dianne) (Dianne) 13:48:00 - [facility] COVID-19 Vaccine COVID-19 Vaccine 2020-10-25 Completed [facility] (Dianne) (Dianne) 13:48:00 - [facility] COVID-19 Vaccine COVID-19 Vaccine 2020-10-25 Completed [facility] (Dianne) (Dianne) 13:48:00 - [facility] COVID-19 Vaccine COVID-19 Vaccine 2020-10-25 Completed [facility] (Dianne) (Dianne) 13:48:00 - [facility] COVID-19 Vaccine COVID-19 Vaccine 2020-10-25 Completed [facility] (Dianne) (Dianne) 13:48:00 - [facility] COVID-19 Vaccine COVID-19 Vaccine 2020-10-25 Completed [facility] (Dianne) (Dianne) 13:48:00 - [facility] COVID-19 Vaccine COVID-19 Vaccine 2020-10-25 Completed [facility] (Dianne) (Dianne) 13:48:00 - [facility] COVID-19 Vaccine COVID-19 Vaccine 2020-10-25 Completed [facility] (Dianne) (Dianne) 13:48:00 - [facility] COVID-19 Vaccine COVID-19 Vaccine 2020-10-25 Completed [facility] (Dianne) (Dianne) 13:48:00 [facility] COVID-19 Vaccine COVID-19 Vaccine 2020-10-25 Completed [facility] (Dianne) (Dianne) 13:48:00 [facility] COVID-19 Vaccine COVID-19 Vaccine 2020-10-25 Completed [facility] (Dianne) (Dianne) 13:48:00 [facility] COVID-19 Vaccine COVID-19 Vaccine 2020-10-25 Completed [facility] (Dianne) (Dianne) 13:48:00 [facility] Toradol (Ketorolac) Toradol (Ketorolac) 2020-10-20 Completed [facility] 12:10:00 [facility] Toradol (Ketorolac) Toradol (Ketorolac) 2020-10-20 Completed [facility] 12:10:00 - [facility] Pneumovax (PPSV23) Pneumovax (PPSV23) 2019-06-09 Completed [facility] 09:23:00 [facility] Pneumovax (PPSV23) Pneumovax (PPSV23) 2019-06-09 Completed [facility] 09:23:00 [facility] Pneumovax (PPSV23) Pneumovax (PPSV23) 2019-06-09 Completed [facility] 09:23:00 - [facility] Pneumovax (PPSV23) Pneumovax (PPSV23) 2019-06-09 Completed [facility] 09:23:00 [facility] Pneumovax (PPSV23) Pneumovax (PPSV23) 2019-06-09 Completed [facility] 09:23:00 - [facility] Pneumovax (PPSV23) Pneumovax (PPSV23) 2019-06-09 Completed [facility] 09:23:00 [facility] Pneumovax (PPSV23) Pneumovax (PPSV23) 2019-06-09 Completed [facility] 09:23:00 - [facility] Pneumovax (PPSV23) Pneumovax (PPSV23) 2019-06-09 Completed [facility] 09:23:00 [facility] Pneumovax (PPSV23) Pneumovax (PPSV23) 2019-06-09 Completed [facility] 09:23:00 [facility] Pneumovax (PPSV23) Pneumovax (PPSV23) 2019-06-09 Com[facility] 09:23:00 [facility] Pneumovax (PPSV23) Pneumovax (PPSV23) 2019-06-09 Completed [facility] 09:23:00 [facility] Pneumovax (PPSV23) Pneumovax (PPSV23) 2019-06-09 Completed [facility] 09:23:00 [facility] Pneumovax (PPSV23) Pneumovax (PPSV23) 2019-06-09 Completed [facility] 09:23:00 [facility] Pneumovax (PPSV23) Pneumovax (PPSV23) 2019-06-09 Completed [facility] 09:23:00 [facility] Pneumovax (PPSV23) Pneumovax (PPSV23) 2019-06-09 Completed [facility] 09:23:00 [facility] Pneumovax (PPSV23) Pneumovax (PPSV23) 2019-06-09 Completed [facility] 09:23:00 [facility] Pneumovax (PPSV23) Pneumovax (PPSV23) 2019-06-09 Completed [facility] 09:23:00 - [facility] Pneumovax (PPSV23) Pneumovax (PPSV23) 2019-06-09 Completed [facility] 09:23:00 [facility] Pneumovax (PPSV23) Pneumovax (PPSV23) 2019-06-09 Completed [facility] 09:23:00 [facility] Pneumovax (PPSV23) Pneumovax (PPSV23) 2019-06-09 Completed [facility] 09:23:00 [facility] Pneumovax (PPSV23) Pneumovax (PPSV23) 2019-06-09 Completed [facility] 09:23:00 [facility] Pneumovax (PPSV23) Pneumovax (PPSV23) 2019-06-09 Completed [facility] 09:23:00 [facility] Pneumovax (PPSV23) Pneumovax (PPSV23) 2019-06-09 Completed [facility] 09:23:00 [facility] Pneumovax (PPSV23) Pneumovax (PPSV23) 2019-06-09 Completed [facility] 09:23:00 [facility] Pneumovax (PPSV23) Pneumovax (PPSV23) 2019-06-09 Completed [facility] 09:23:00 [facility] Pneumovax (PPSV23) Pneumovax (PPSV23) 2019-06-09 Completed [facility] 09:23:00 [facility] Pneumovax (PPSV23) Pneumovax (PPSV23) 2019-06-09 Completed [facility] 09:23:00 [facility] Pneumovax (PPSV23) Pneumovax (PPSV23) 2019-06-09 Completed [facility] 09:23:00 - [facility] Pneumovax (PPSV23) Pneumovax (PPSV23) 2019-06-09 Completed [facility] 09:23:00 - [facility] Pneumovax (PPSV23) Pneumovax (PPSV23) 2019-06-09 Completed [facility] 09:23:00 - [facility] Pneumovax (PPSV23) Pneumovax (PPSV23) 2019-06-09 Completed [facility] 09:23:00 - [facility] Pneumovax Pneumovax 2019-06-09 Completed [facility] 00:00:00 - [facility] Flucelvax - single Flucelvax - single 2019-05-30 Completed [facility] dose syringe dose syringe 11:58:00 - [facility] Flucelvax - single Flucelvax - single 2019-05-30 Completed [facility] dose syringe dose syringe 11:58:00 - [facility] Flucelvax - single Flucelvax - single 2019-05-30 Completed [facility] dose syringe dose syringe 11:58:00 - [facility] Flucelvax - single Flucelvax - single 2019-05-30 Completed [facility] dose syringe dose syringe 11:58:00 - [facility] Flucelvax - single Flucelvax - single 2019-05-30 Completed [facility] dose syringe dose syringe 11:58:00 - [facility] Flucelvax - single Flucelvax - single 2019-05-30 Completed [facility] dose syringe dose syringe 11:58:00 - [facility] Flucelvax - single Flucelvax - single 2019-05-30 Completed [facility] dose syringe dose syringe 11:58:00 - [facility] Flucelvax - single Flucelvax - single 2019-05-30 Completed [facility] dose syringe dose syringe 11:58:00 - [facility] Flucelvax - single Flucelvax - single 2019-05-30 Completed [facility] dose syringe dose syringe 11:58:00 - [facility] Flucelvax - single Flucelvax - single 2019-05-30 Completed [facility] dose syringe dose syringe 11:58:00 - [facility] Flucelvax - single Flucelvax - single 2019-05-30 Completed [facility] dose syringe dose syringe 11:58:00 - [facility] Flucelvax - single Flucelvax - single 2019-05-30 Completed [facility] dose syringe dose syringe 11:58:00 - [facility] Flucelvax - single Flucelvax - single 2019-05-30 Completed [facility] dose syringe dose syringe 11:58:00 - [facility] Flucelvax - single Flucelvax - single 2019-05-30 Completed [facility] dose syringe dose syringe 11:58:00 - [facility] Flucelvax - single Flucelvax - single 2019-05-30 Completed [facility] dose syringe dose syringe 11:58:00 - [facility] Flucelvax - single Flucelvax - single 2019-05-30 Completed [facility] dose syringe dose syringe 11:58:00 - [facility] Flucelvax - single Flucelvax - single 2019-05-30 Completed [facility] dose syringe dose syringe 11:58:00 - [facility] Flucelvax - single Flucelvax - single 2019-05-30 Completed [facility] dose syringe dose syringe 11:58:00 - [facility] Flucelvax - single Flucelvax - single 2019-05-30 Completed [facility] dose syringe dose syringe 11:58:00 - [facility] Flucelvax - single Flucelvax - single 2019-05-30 Completed [facility] dose syringe dose syringe 11:58:00 - [facility] Flucelvax - single Flucelvax - single 2019-05-30 Completed [facility] dose syringe dose syringe 11:58:00 - [facility] Flucelvax - single Flucelvax - single 2019-05-30 Completed [facility] dose syringe dose syringe 11:58:00 - [facility] Flucelvax - single Flucelvax - single 2019-05-30 Completed [facility] dose syringe dose syringe 11:58:00 - [facility] Flucelvax - single Flucelvax - single 2019-05-30 Completed [facility] dose syringe dose syringe 11:58:00 - [facility] Flucelvax - single Flucelvax - single 2019-05-30 Completed [facility] dose syringe dose syringe 11:58:00 - [facility] Flucelvax - single Flucelvax - single 2019-05-30 Completed [facility] dose syringe dose syringe 11:58:00 - [facility] Flucelvax - single Flucelvax - single 2019-05-30 Completed [facility] dose syringe dose syringe 11:58:00 - [facility] Flucelvax - single Flucelvax - single 2019-05-30 Completed [facility] dose syringe dose syringe 11:58:00 - [facility] Flucelvax - single Flucelvax - single 2019-05-30 Completed [facility] dose syringe dose syringe 11:58:00 - [facility] Flucelvax - single Flucelvax - single 2019-05-30 Completed [facility] dose syringe dose syringe 11:58:00 - [facility] Flucelvax - single Flucelvax - single 2019-05-30 Completed [facility] dose syringe dose syringe 11:58:00 - [facility] Flucelvax - single Flucelvax - single 2019-05-30 Completed [facility] dose syringe dose syringe 00:00:00 - [facility] Prevnar 13 Prevnar 13 2018-05-09 Completed [facility] -Pneumonia Vaccine -Pneumonia Vaccine 09:29:00 - [facility] Prevnar 13 Prevnar 13 2018-05-09 Completed [facility] -Pneumonia Vaccine -Pneumonia Vaccine 09:29:00 - [facility] Prevnar 13 Prevnar 13 2018-05-09 Completed [facility] -Pneumonia Vaccine -Pneumonia Vaccine 09:29:00 - [facility] Prevnar 13 Prevnar 13 2018-05-09 Completed [facility] -Pneumonia Vaccine -Pneumonia Vaccine 09:29:00 - [facility] Prevnar 13 Prevnar 13 2018-05-09 Completed [facility] -Pneumonia Vaccine -Pneumonia Vaccine 09:29:00 - [facility] Prevnar 13 Prevnar 13 2018-05-09 Completed [facility] -Pneumonia Vaccine -Pneumonia Vaccine 09:29:00 - [facility] Prevnar 13 Prevnar 13 2018-05-09 Completed [facility] -Pneumonia Vaccine -Pneumonia Vaccine 09:29:00 - [facility] Prevnar 13 Prevnar 13 2018-05-09 Completed [facility] -Pneumonia Vaccine -Pneumonia Vaccine 09:29:00 - [facility] Prevnar 13 Prevnar 13 2018-05-09 Completed [facility] -Pneumonia Vaccine -Pneumonia Vaccine 09:29:00 - [facility] Prevnar 13 Prevnar 13 2018-05-09 Completed [facility] -Pneumonia Vaccine -Pneumonia Vaccine 09:29:00 - [facility] Prevnar 13 Prevnar 13 2018-05-09 Completed [facility] -Pneumonia Vaccine -Pneumonia Vaccine 09:29:00 - [facility] Prevnar 13 Prevnar 2018-05-09 Completed [facility] -Pneumonia Vaccine -Pneumonia Vaccine 09:29:00 - [facility] Prevnar 13 Prevnar 2018-05-09 Completed [facility] -Pneumonia Vaccine -Pneumonia Vaccine 09:29:00 - [facility] Prevnar 13 Prevnar 2018-05-09 Completed [facility] -Pneumonia Vaccine -Pneumonia Vaccine 09:29:00 - [facility] Prevnar 13 Prevnar 2018-05-09 Completed [facility] -Pneumonia Vaccine -Pneumonia Vaccine 09:29:00 - [facility] Prevnar 13 Prevnar 13 2018-05-09 Completed [facility] -Pneumonia Vaccine -Pneumonia Vaccine 09:29:00 - [facility] Prevnar 13 Prevnar 13 2018-05-09 Completed [facility] -Pneumonia Vaccine -Pneumonia Vaccine 09:29:00 - [facility] Prevnar 13 Prevnar 13 2018-05-09 Completed [facility] -Pneumonia Vaccine -Pneumonia Vaccine 09:29:00 - [facility] Prevnar 13 Prevnar 13 2018-05-09 Completed [facility] -Pneumonia Vaccine -Pneumonia Vaccine 09:29:00 - [facility] Prevnar 13 Prevnar 13 2018-05-09 Completed [facility] -Pneumonia Vaccine -Pneumonia Vaccine 09:29:00 - [facility] Prevnar 13 Prevnar 13 2018-05-09 Completed [facility] -Pneumonia Vaccine -Pneumonia Vaccine 09:29:00 - [facility] Prevnar 13 Prevnar 13 2018-05-09 Completed [facility] -Pneumonia Vaccine -Pneumonia Vaccine 09:29:00 - [facility] Prevnar 13 Prevnar 13 2018-05-09 Completed [facility] -Pneumonia Vaccine -Pneumonia Vaccine 09:29:00 - [facility] Prevnar 13 Prevnar 13 2018-05-09 Completed [facility] -Pneumonia Vaccine -Pneumonia Vaccine 09:29:00 - [facility] Prevnar 13 Prevnar 13 2018-05-09 Completed [facility] -Pneumonia Vaccine -Pneumonia Vaccine 09:29:00 - [facility] Prevnar 13 Prevnar 13 2018-05-09 Completed [facility] -Pneumonia Vaccine -Pneumonia Vaccine 09:29:00 - [facility] Prevnar 13 Prevnar 13 2018-05-09 Completed [facility] -Pneumonia Vaccine -Pneumonia Vaccine 09:29:00 - [facility] Prevnar 13 Prevnar 13 2018-05-09 Completed [facility] -Pneumonia Vaccine -Pneumonia Vaccine 09:29:00 - [facility] Prevnar 13 Prevnar 13 2018-05-09 Completed [facility] -Pneumonia Vaccine -Pneumonia Vaccine 09:29:00 - [facility] Prevnar 13 Prevnar 13 2018-05-09 Completed [facility] -Pneumonia Vaccine -Pneumonia Vaccine 09:29:00 - [facility] Prevnar 13 Prevnar 13 2018-05-09 Completed [facility] -Pneumonia Vaccine -Pneumonia Vaccine 09:29:00 - [facility] Prevnar 13 Prevnar 13 2018-05-09 Completed [facility] -Pneumonia Vaccine -Pneumonia Vaccine 00:00:00 - [facility] Vital Signs Vital Name Observation Time Observation Value Comments Source Body height 2023-03-14 13:49:[facility] 2023-03-14 13:49:00 102.513 kg [facility] BMI 2023-03-14 13:49:00 37.61 kg/m2 [facility] Body height 2023-02-23 14:12:00 [facility] 2023-02-23 14:12:00 102.513 kg [facility] BMI 2023-02-23 14:12:00 37.61 kg/m2 [facility] Body weight 2022-09-29 16:23:00 91.173 kg [facility] BMI 2022-09-29 16:23:00 32.44 kg/m2 [facility] Body weight 2022-08-24 17:19:00 91.173 kg [facility] BMI 2022-08-24 17:19:00 32.44 kg/m2 [facility] Systolic blood 2022-08-09 19:15:00 133 mm[Hg] Univer [facility]ity of pressure [facility] Diastolic blood 2022-08-09 19:15:00 77 mm[Hg] Unive rsity of pressure [facility] Heart rate 2022-08-09 19:15:00 103 /min [facility] Body height 2022-08-09 19:14:00 167.6 cm [facility] Body weight 2022-08-09 19:14:00 91.4 kg [facility] BMI 2022-08-09 19:14:00 32.52 kg/m2 [facility] Oxygen saturation in 2022-08-09 19:14:00 100 /min [facility] Arterial blood by [place] [employer] [facility] Pulse oximetry Branch Systolic blood 2022-06-06 20:31:00 139 mm[Hg] Univer [facility]ity of pressure [facility] Diastolic blood 2022-06-06 20:31:00 103 mm[Hg] Unive rsity of pressure [facility] Heart rate 2022-06-06 20:31:00 98 /min [facility] Body temperature 2022-06-06 20:31:00 36.67 Natalia Univ [facility] Respiratory rate 2022-06-06 20:31:00 20 /min Univ [facility] Body weight 2022-06-06 20:31:00 81.647 kg [facility] BMI 2022-06-06 20:31:00 28.19 kg/m2 [facility] Oxygen saturation in 2022-06-06 20:31:00 100 /min [facility] Arterial blood by [place] [employer] [facility] Pulse oximetry Branch Systolic blood 2022-05-24 20:04:00 145 mm[Hg] Univer sity of pressure [facility] Diastolic blood 2022-05-24 20:04:00 77 mm[Hg] Unive rsity of [facility] Body height 2022-05-24 20:04:00 170.2 cm [facility] Body weight 2022-05-24 20:04:00 85.73 kg [facility] BMI 2022-05-24 20:04:00 29.60 kg/m2 [facility] height 2022-05-03 14:20:00 65.5 [in_i] [facility] weight 2022-05-03 14:20:00 189.6 [lb_av] [facility] temperature 2022-05-03 14:20:00 97.8 [degF] [facility] bmi 2022-05-03 14:20:00 31.07 kg/m2 [facility] oximetry 2022-05-03 14:20:00 100 % [facility] respiratory rate 2022-05-03 14:20:00 16 /min [facility] blood pressure 2022-05-03 14:20:00 134 mm[Hg] [facility] - systolic [facility] blood pressure 2022-05-03 14:20:00 82 mm[Hg] [facility] - diastolic [facility] Systolic blood 2022-03-25 00:54:00 164 mm[Hg] Univer [facility]ity of [facility] Diastolic blood 2022-03-25 00:54:00 83 mm[Hg] Unive rsity of [facility] Heart rate 2022-03-25 00:54:00 95 /min [facility] Body temperature 2022-03-25 00:54:00 37 Natalia [facility] in 2022-03-25 00:54:00 97 /min [facility] blood by [place] [employer] [facility] Pulse oximetry Branch Respiratory rate 2022-03-24 19:44:00 18 /min [facility] Body height 2022-03-24 18:05:00 170.2 cm [facility] Body weight 2022-03-24 18:05:00 84.823 kg [facility] BMI 2022-03-24 18:05:00 29.29 kg/m2 [facility] Systolic blood 2022-03-24 19:44:00 138 mm[Hg] Univer [facility]ity of pressure [facility] Diastolic blood 2022-03-24 19:44:00 67 mm[Hg] Unive rsity of pressure [facility] Heart rate 2022-03-24 19:44:00 84 /min [facility] Body temperature 2022-03-24 19:44:00 36.33 Natalia [facility] Respiratory rate 2022-03-24 19:44:00 18 /min Univ [facility] Oxygen saturation in 2022-03-24 19:44:00 97 /min [facility] Arterial blood by [facility] Pulse oximetry Branch Body height 2022-03-24 18:05:00 170.2 cm [facility] Body weight 2022-03-24 18:05:00 84.823 kg [facility] BMI 2022-03-24 18:05:00 29.29 kg/m2 [facility] Systolic blood 2022-03-23 13:59:00 130 mm[Hg] Univer sity of pressure [facility] Diastolic blood 2022-03-23 13:59:00 65 mm[Hg] Unive rsity of pressure [facility] Heart rate 2022-03-23 13:59:00 77 /min [facility] Body temperature 2022-03-23 13:59:00 35.39 Natalia [facility] Respiratory rate 2022-03-23 13:59:00 16 /min Univ ers[facility] Body height 2022-03-23 13:59:00 170.2 cm [facility] [place] Body weight 2022-03-23 13:59:00 85 kg [facility] BMI 2022-03-23 13:59:00 29.35 kg/m2 [facility] Oxygen saturation in 2022-03-23 13:59:00 99 /min University Arterial blood by [facility] Pulse oximetry Branch height 2022-03-08 14:40:00 65.5 [in_i] [facility] weight 2022-03-08 14:40:00 195.8 [lb_av] [facility] temperature 2022-03-08 14:40:00 97.8 [degF] [facility] bmi 2022-03-08 14:40:00 32.08 kg/m2 [facility] oximetry 2022-03-08 14:40:00 98 % [facility] respiratory rate 2022-03-08 14:40:00 16 /min [facility] blood pressure 2022-03-08 14:40:00 126 mm[Hg] [facility] - systolic [facility] blood pressure 2022-03-08 14:40:00 74 mm[Hg] [facility] - diastolic [facility] Body height 2022-02-21 19:05:00 170.2 cm [facility] Body weight 2022-02-21 19:05:00 86.183 kg [facility] BMI 2022-02-21 19:05:00 29.76 kg/m2 [facility] height 2021-12-07 14:40:00 65.5 [in_i] [facility] weight 2021-12-07 14:40:00 188.4 [lb_av] [facility] temperature 2021-12-07 14:40:00 97.5 [degF] [facility] bmi 2021-12-07 14:40:00 30.87 kg/m2 [facility] oximetry 2021-12-07 14:40:00 100 % [facility] respiratory rate 2021-12-07 14:40:00 16 /min [facility] blood pressure 2021-12-07 14:40:00 134 mm[Hg] [facility] - systolic [facility] blood pressure 2021-12-07 14:40:00 76 mm[Hg] [facility] - diastolic [facility] height 2021-11-08 11:20:00 65.5 [in_i] [facility] weight 2021-11-08 11:20:00 191.8 [lb_av] [facility] temperature 2021-11-08 11:20:00 98.1 [degF] [facility] bmi 2021-11-08 11:20:00 31.43 kg/m2 [facility] oximetry 2021-11-08 11:20:00 98 % [facility] respiratory rate 2021-11-08 11:20:00 16 /min [facility] height 2021-11-03 14:00:00 65.5 [in_i] [facility] weight 2021-11-03 14:00:00 193 [lb_av] [facility] bmi 2021-11-03 14:00:00 31.62 kg/m2 [facility] height 2021-10-20 11:00:00 65.5 [in_i] [facility] weight 2021-10-20 11:00:00 193 [lb_av] [facility] temperature 2021-10-20 11:00:00 97.4 [degF] [facility] bmi 2021-10-20 11:00:00 31.62 kg/m2 [facility] blood pressure 2021-10-20 11:00:00 132 mm[Hg] [facility] - systolic [facility] blood pressure 2021-10-20 11:00:00 74 mm[Hg] [facility] - diastolic [facility] height 2021-08-31 08:30:00 65.5 [in_i] [facility] weight 2021-08-31 08:30:00 190 [lb_av] [facility] temperature 2021-08-31 08:30:00 97.3 [degF] [facility] bmi 2021-08-31 08:30:00 31.13 kg/m2 [facility] blood pressure 2021-08-31 08:30:00 118 mm[Hg] [facility] - systolic [facility] blood pressure 2021-08-31 08:30:00 68 mm[Hg] [facility] - diastolic [facility] height 2021-08-23 13:00:00 65.5 [in_i] [facility] weight 2021-08-23 13:00:00 203.8 [lb_av] [facility] temperature 2021-08-23 13:00:00 97.7 [degF] [facility] bmi 2021-08-23 13:00:00 33.39 kg/m2 [facility] oximetry 2021-08-23 13:00:00 99 % [facility] 2021-08-23 13:00:00 16 /min [facility] blood pressure 2021-08-23 13:00:00 132 mm[Hg] [facility] - systolic [facility] blood pressure 2021-08-23 13:00:00 68 mm[Hg] [facility] - diastolic [facility] height 2021-07-06 15:00:00 65.5 [in_i] [facility] weight 2021-07-06 15:00:00 204.4 [lb_av] [facility] temperature 2021-07-06 15:00:00 97.5 [degF] [facility] bmi 2021-07-06 15:00:00 33.49 kg/m2 [facility] oximetry 2021-07-06 15:00:00 97 % [facility] respiratory rate 2021-07-06 15:00:00 16 /min [facility] blood pressure 2021-07-06 15:00:00 138 mm[Hg] [facility] - systolic [facility] blood pressure 2021-07-06 15:00:00 80 mm[Hg] [facility] - diastolic [facility] height 2021-06-22 10:20:00 65.5 [in_i] [facility] weight 2021-06-22 10:20:00 167.6 [lb_av] [facility] temperature 2021-06-22 10:20:00 97.4 [degF] [facility] bmi 2021-06-22 10:20:00 27.46 kg/m2 [facility] oximetry 2021-06-22 10:20:00 98 % [facility] respiratory rate 2021-06-22 10:20:00 16 /min [facility] blood pressure 2021-06-22 10:20:00 136 mm[Hg] [facility] - systolic [facility] blood pressure 2021-06-22 10:20:00 80 mm[Hg] [facility] - diastolic [facility] height 2021-06-02 15:20:00 65.5 [in_i] [facility] weight 2021-06-02 15:20:00 207.7 [lb_av] [facility] temperature 2021-06-02 15:20:00 98.7 [degF] [facility] bmi 2021-06-02 15:20:00 34.03 kg/m2 [facility] oximetry 2021-06-02 15:20:00 97 % [facility] respiratory rate 2021-06-02 15:20:00 18 /min [facility] blood pressure 2021-06-02 15:20:00 134 mm[Hg] [facility] - systolic [facility] blood pressure 2021-06-02 15:20:00 72 mm[Hg] [facility] - diastolic [facility] height 2021-05-18 15:00:00 65.5 [in_i] [facility] weight 2021-05-18 15:00:00 212 [lb_av] [facility] [facility] temperature 2021-05-18 15:00:00 97 [degF] [facility] bmi 2021-05-18 15:00:00 34.74 kg/m2 [facility] oximetry 2021-05-18 15:00:00 98 % [facility] respiratory rate 2021-05-18 15:00:00 20 /min Comm on [facility] blood pressure 2021-05-18 15:00:00 130 mm[Hg] Common [facility] - systolic [facility] blood pressure 2021-05-18 15:00:00 82 mm[Hg] Common [facility] diastolic [facility] Procedures Procedure Date / Time Performing Source Performed Clinician CT SHOULDER RIGHT WO CONTRAST 2023-03-01 Kusum Pacheco Un iversity of 20:10:00 [facility] XR SHOULDER <2 VW RIGHT 2023-02-23 Kusum Pacheco Universi ty of 14:58:26 [facility] CONSENT/REFUSAL FOR DIAGNOSIS AND 2023-02-23 [facility] 14:02:02 Unassigned, No [facility] REFERRAL- REQUEST/RESPONSE 2022-12-25 Doctor Jackie rsity of 05:01:00 Unassigned, No [facility] REFERRAL- REQUEST/RESPONSE 2022-09-05 Doctor Jackie rsity of 06:01:00 Unassigned, No [facility] DME/SUPPLY JUSTIFICATION 2022-08-21 Doctor Eufemia ity of 06:01:00 Unassigned, No [facility] DME/SUPPLY JUSTIFICATION 2022-08-10 Doctor Univers ity [...] Doctor University of TREATMENT 20:21:29 Unassigned, No [facility] MR HIP RIGHT WO CONTRAST 2022-06-06 Kusum Pacheco Univers ity of 20:00:46 [facility] ASSIGNMENT OF BENEFITS 2022-06-06 Doctor Universit y of 18:40:50 Unassigned, No [facility] REFERRAL- REQUEST/RESPONSE 2022-05-10 [facility] of 05:01:00 Unassigned, No [facility] DNR 2022-04-04 Doctor University of 05:01:00 Unassigned, No [facility] POCT GLUCOSE (AUTOMATED) 2022-03-24 Prakash Waller [facility] of 21:06:00 [facility] POCT GLUCOSE (AUTOMATED) 2022-03-24 Prakash Waller [facility] of 21:06:00 [facility] COLONOSCOPY (ENDO) 2022-03-24 Prakash Waller [facility] of 18:38:21 [facility] COLONOSCOPY (ENDO) 2022-03-24 Prakash Waller [facility] of 18:38:21 [facility] COLONOSCOPY 2022-03-24 [facility] 18:31:00 [facility] POCT GLUCOSE (AUTOMATED) 2022-03-24 Prakash Waller [facility] of 13:30:00 [facility] POCT GLUCOSE (AUTOMATED) 2022-03-24 Prakash Waller [facility] of 13:30:00 [facility] POCT GLUCOSE (AUTOMATED) 2022-03-24 Prakash Waller [facility] of 13:30:00 [facility] CBC WITHOUT DIFF 2022-03-24 Jovanna [facility] of 10:55:00 [facility] CBC WITHOUT DIFF 2022-03-24 [facility] of 10:55:00 [facility] CBC WITHOUT DIFF 2022-03-24 Alviso [facility] of 10:55:00 [facility] MAGNESIUM 2022-03-24 [facility] of 09:28:00 [facility] BASIC METABOLIC PANEL (NA, K, CL, 2022-03-24 Alviso, [facility] of CO2, GLUCOSE, BUN, CREATININE, CA) 09:28:00 [facility] MAGNESIUM 2022-03-24 [facility] of 09:28:00 [facility] BASIC METABOLIC PANEL (NA, K, CL, 2022-03-24 Alviso, [facility] of CO2, GLUCOSE, BUN, CREATININE, CA) 09:28:00 [facility] MAGNESIUM 2022-03-24 [facility] of 09:28:00 [facility] BASIC METABOLIC PANEL (NA, K, CL, 2022-03-24 [facility] of CO2, GLUCOSE, BUN, CREATININE, CA) 09:28:00 [facility] POCT GLUCOSE (AUTOMATED) 2022-03-24 Prakash Waller Unive rsity of 04:04:00 [facility] POCT GLUCOSE (AUTOMATED) 2022-03-24 Prakash Waller Unive rsity of 04:04:00 [facility] POCT GLUCOSE (AUTOMATED) 2022-03-24 Prakash Waller Unive rsity of 04:04:00 [facility] POCT GLUCOSE (AUTOMATED) 2022-03-24 Prakash Waller Unive rsity of 01:54:00 [facility] POCT GLUCOSE (AUTOMATED) 2022-03-24 Prakash Waller Unive rsity of 01:54:00 [facility] POCT GLUCOSE (AUTOMATED) 2022-03-24 Prakash Waller Unive rsity of 01:54:00 [facility] POCT GLUCOSE (AUTOMATED) 2022-03-23 Prakash Waller Unive rsity of 22:06:00 [facility] POCT GLUCOSE (AUTOMATED) 2022-03-23 Prakash Waller Unive rsity of 22:06:00 [facility] POCT GLUCOSE (AUTOMATED) 2022-03-23 Prakash Waller Unive rsity of 22:06:00 [facility] SURGICAL PATHOLOGY EXAM 2022-03-23 Gou, Earnest Juvencio Univer sity of 14:36:00 [facility] SURGICAL PATHOLOGY EXAM 2022-03-23 Gou, Earnest Juvencio Univer sity of 14:36:00 [facility] SURGICAL PATHOLOGY EXAM 2022-03-23 Gou, Earnest Collinstonny Univer sity of 14:36:00 [facility] ESOPHAGOGASTRODUODENOSCOPY 2022-03-23 Gou, Earnest Juvencio Uni versity of 14:09:00 [facility] ESOPHAGOGASTRODUODENOSCOPY 2022-03-23 Gou, Earnest Juvencio Uni versity of 14:09:00 [facility] EGD (ENDO) 2022-03-23 Prakash Waller [facility] of 13:02:56 [facility] EGD (ENDO) 2022-03-23 Christin [facility] of 13:02:56 [facility] EGD (ENDO) 2022-03-23 Christin [facility] of 13:02:56 [facility] POCT GLUCOSE (AUTOMATED) 2022-03-23 Prakash Waller [facility] rsity of 12:56:00 [facility] POCT GLUCOSE (AUTOMATED) 2022-03-23 [facility] of 12:56:00 [facility] POCT GLUCOSE (AUTOMATED) 2022-03-23 Prakash Waller [facility] rsity of 12:56:00 [facility] FERRITIN SERUM 2022-03-23 Jackson Spear [place] of 10:21:00 [facility] BASIC METABOLIC PANEL (NA, K, CL, 2022-03-23 [facility] of CO2, GLUCOSE, BUN, CREATININE, CA) 10:21:00 [facility] CBC WITH DIFF 2022-03-23 Courtney Moise of 10:21:00 [facility] ACTIVATED PARTIAL THRMPLAS CASSIE 2022-03-23 Courtney Moise U niversity of 10:21:00 [facility] FIBRINOGEN 2022-03-23 Suma Courtneytao Galarza of 10:21:00 [facility] FERRITIN SERUM 2022-03-23 Jakcson Spear [place] of 10:21:00 [facility] BASIC METABOLIC PANEL (NA, K, CL, 2022-03-23 [facility] of CO2, GLUCOSE, BUN, CREATININE, CA) 10:21:00 [facility] CBC WITH DIFF 2022-03-23 Counts Include 234 [facility] of 10:21:00 [facility] ACTIVATED PARTIAL THRMPLAS CASSIE 2022-03-23 [facility] U niversity of 10:21:00 [facility] FIBRINOGEN 2022-03-23 Counts Include 234 [facility] of 10:21:00 [facility] FERRITIN SERUM 2022-03-23 [facility] of 10:21:00 [facility] BASIC METABOLIC PANEL (NA, K, CL, 2022-03-23 [facility] of CO2, GLUCOSE, BUN, CREATININE, CA) 10:21:00 [facility] CBC WITH DIFF 2022-03-23 Counts Include 234 [facility] of 10:21:00 [facility] ACTIVATED PARTIAL THRMPLAS CASSIE 2022-03-23 Dragan, [facility] U niversity of 10:21:00 [facility] FIBRINOGEN 2022-03-23 Counts Include 234 [facility] of 10:21:00 [facility] POCT GLUCOSE (AUTOMATED) 2022-03-23 Prakash Waller Unive rsity of 02:06:00 [facility] POCT GLUCOSE (AUTOMATED) 2022-03-23 Prakash Waller Unive rsity of 02:06:00 [facility] POCT GLUCOSE (AUTOMATED) 2022-03-23 Prakash Waller Unive rsity of 02:06:00 [facility] POCT GLUCOSE (AUTOMATED) 2022-03-23 Prakash Waller Unive rsity of 01:28:00 [facility] POCT GLUCOSE (AUTOMATED) 2022-03-23 Prakash Waller [place] Unive rsity of 01:28:00 [facility] POCT GLUCOSE (AUTOMATED) 2022-03-23 Prakash Waller Unive rsity of 01:28:00 [facility] POCT GLUCOSE (AUTOMATED) 2022-03-22 Prakash Waller Unive rsity of 22:06:00 [facility] POCT GLUCOSE (AUTOMATED) 2022-03-22 Prakash Waller Unive rsity of 22:06:00 [facility] POCT GLUCOSE (AUTOMATED) 2022-03-22 Prakash Waller [facility] of 22:06:00 [facility] HB ABO GROUPING 2022-03-22 Jovanna [facility] of 20:28:00 [facility] HB ABO GROUPING 2022-03-22 [facility]viso [facility] of 20:28:00 [facility] HB ABO GROUPING 2022-03-22 Alviso, [facility] of 20:28:00 [facility] VITAMIN B12, LEVEL 2022-03-22 [facility] of 17:58:00 [facility] FOLATE 2022-03-22 Alviso, [facility] of 17:58:00 [facility] HEPATIC FUNCTION PANEL ([id number]) 2022-03-22 Shabbir Nugent niversity of (ALB,T.PRO,BILI 17:58:00 [place] [facility] T,BU/BC,ALT,AST,ALK PHOS) Branch BASIC METABOLIC PANEL (NA, K, CL, 2022-03-22 [facility] CO2, GLUCOSE, BUN, CREATININE, CA) 17:58:00 [facility] CBC WITH DIFF 2022-03-22 Jovanna, [facility] of 17:58:00 [facility] VITAMIN B12, LEVEL 2022-03-22 Jovanna, [facility] of 17:58:00 [facility] FOLATE 2022-03-22 [facility] of 17:58:00 [facility] HEPATIC FUNCTION PANEL ([id number]) 2022-03-22 Shabbir Nugent niversity of (ALB,T.PRO,BILI 17:58:00 [facility] T,BU/BC,ALT,AST,ALK PHOS) Branch BASIC METABOLIC PANEL (NA, K, CL, 2022-03-22 [facility] of CO2, GLUCOSE, BUN, CREATININE, CA) 17:58:00 [facility] CBC WITH DIFF 2022-03-22 Alviso, [facility] of 17:58:00 [facility] VITAMIN B12, LEVEL 2022-03-22 Alviso [facility] of 17:58:00 [facility] FOLATE 2022-03-22 Alviso, [facility] of 17:58:00 [facility] HEPATIC FUNCTION PANEL ([id number]) 2022-03-22 Shabbir Nugent niversity of (ALB,T.PRO,BILI 17:58:00 [facility],BU/BC,ALT,AST,ALK PHOS) Branch BASIC METABOLIC PANEL (NA, K, CL, 2022-03-22 [facility] of CO2, GLUCOSE, BUN, CREATININE, CA) 17:58:00 [facility] CBC WITH DIFF 2022-03-22 [facility] of 17:58:00 [facility] HOSPITAL ADMISSION 2022-03-22 [facility] 05:01:00 Unassigned, No [facility] HOSPITAL ADMISSION 2022-03-22 [facility] 05:01:00 Unassigned, No [facility] HOSPITAL ADMISSION 2022-03-22 [facility] 05:01:00 Unassigned, No [facility] [id number] 2021-10-17 ROCIOISAIAS [facility] 00:00:00 Healthcare [facility] Encounters Start End Encounter Admission Attending Care Care Encounter Source Date/Time Date/Time Type Type Clinicians Facility Department ID 2023-01-31 Outpatient Kinney, STLMLC STLMLC [id number] Common 14:11:00 Peter 18602 [facility] 2022-11-01 Outpatient Kinney, STLMLC STLMLC [id number] Common 12:45:00 Peter [id number] [facility] 2022-10-31 Outpatient Kinney, STLMLC STLMLC [id number] Common 12:06:00 Peter 54211 [facility] 2022-02-16 Outpatient Kinney, STLMLC STLMLC [id number] Common 13:42:01 Peter 23953 [facility] 2022-02-07 Outpatient Kinney, STLMLC STLMLC [id number] Common 08:29:00 Peter [facility] 2021-12-27 Outpatient R [facility] [id number] Univers 09:49:04 MEHRDAD Field of [facility] 2021-12-08 Outpatient Kinney, STLMLC STLMLC [id number] Common 16:43:00 Peter [facility] 2021-12-05 Outpatient Kinney, STLMLC STLMLC [id number] Common 14:56:01 Peter [facility] 2021-11-04 Outpatient Kinney, STLMLC STLMLC [id number] Common 10:22:00 Peter [facility] 2021-10-26 Outpatient Kinney, STLMLC STLMLC [id number] Common 16:48:01 Peter [facility] 2021-10-21 Outpatient Kinney, STLMLC STLMLC [id number] Common 13:18:01 Peter [facility] 2021-10-18 Outpatient Kinnye, STLMLC STLMLC [id number] Common 13:27:02 Peter [facility] 2021-08-31 Outpatient Kinney, STLMLC STLMLC [id number] Common 14:40:32 Peter [facility] 2021-08-31 Outpatient Kinney, STLMLC STLMLC [id number] Common 14:27:35 Peter [facility] 2021-08-31 Outpatient Kinney, STLMLC STLMLC [id number] Common 14:13:22 Peter [facility] 2021-08-31 Outpatient Kinney, STLMLC STLMLC [id number] Common 14:05:40 Peter 87859 [facility] 2021-08-31 Outpatient Udall, STLMLC STLMLC [id number] Common 14:01:51 Ruth 97883 [facility] 2021-08-31 Outpatient Udall, STLMLC STLMLC [id number] Common 14:00:44 Ruth 22059 [facility] 2021-08-31 Outpatient Udall, STLMLC STLMLC [id number] Common 13:48:34 Ruth 45165 [facility] 2021-08-31 Outpatient Udall, STLMLC STLMLC [id number] Common 13:28:14 Ruth 97285 [facility] 2021-08-31 Outpatient Udall, STLMLC STLMLC [id number] Common 12:43:59 Ruth 78071 [facility] 2021-08-31 Outpatient Udall, STLMLC STLMLC [id number] Common 12:43:30 Ruth 11820 [facility] 2021-08-31 Outpatient Udall, STLMLC STLMLC [id number] Common 12:40:36 Ruth 57907 [facility] 2021-08-31 Outpatient Udall, STLMLC STLMLC [id number] Common 11:45:41 Ruth 56399 [facility] 2021-08-31 Outpatient Udall, STLMLC STLMLC [id number] Common 11:36:44 Ruth 74802 [facility] 2021-08-31 Outpatient Udall, STLMLC STLMLC [id number] Common 11:33:43 Ruth 85753 [facility] 2021-08-31 Outpatient Udall, STLMLC STLMLC [id number] Common 11:29:50 Ruth 44162 [facility] 2021-08-31 Outpatient Udall, STLMLC STLMLC [id number] Common 11:25:13 Ruth 48300 [facility] 2021-08-31 Outpatient Udall, STLMLC STLMLC [id number] Common 11:19:14 Ruth 30615 [facility] 2021-08-31 Outpatient Udall, STLMLC STLMLC [id number] Common 11:12:16 Ruth 29647 [facility] 2021-08-31 Outpatient Millender, STLMLC STLMLC [id number] Common 11:09:26 Sheryl 85203 [facility] 2021-08-31 Outpatient Udall, STLMLC STLMLC [id number] Common 11:07:41 Ruth 40616 [facility] 2021-08-31 Outpatient Udall, STLMLC STLMLC [id number] Common 11:07:07 Ruth 55188 [facility] 2021-08-31 Outpatient MARK Matias [facility] [id number] Common 10:58:45 Ruth 63563 [facility] 2021-06-07 Emergency [facility] [id number] Univers 03:36:58 ity [facility] 2021-06-07 Outpatient R [facility] NING [id number] Univers 00:03:36 E, MEHRDAD ity [facility] 2021-06-06 Emergency [facility] [id number] Univers 01:28:49 ity [facility] 2021-06-04 Emergency [facility] [id number] Univers 13:53[facility] [id number] Univers 00:26:15 E, MEHRDAD [facility] 2023-04-06 2023-04-06 Outpatient MHIE THELMAIE [id number] Memoria 08:15:00 08:15:00 35 dmitry [place] 2023-04-06 2023-04-06 Outpatient MHIE MHIE [id number] Memoria 08:15:00 08:15:00 35 dmitry Tanmay 2023-04-04 2023-04-04 Outpatient GC_GCBZW_Ka PRIV PRIV [id number] [facility] 00:00:00 00:00:00 diyala_S [id number] Medic al 2023-03-28 2023-03-28 Outpatient Reena PACHECO [facility] [id number] Univers 00:00:00 00:00:00 KUSUM [facility] 2023-03-27 2023-03-27 Outpatient VERNELL GONZÁLES [facility] [id number] [place] 09:18:00 09:18:00 MALDONADO -[id number] swati [facility] 2023-03-26 2023-03-26 Outpatient GC_GCBZW_Ka PRIV PRIV [id number] [facility] 00:00:00 00:00:00 diyala_S [id number] Medic al 2023-03-14 2023-03-14 [facility] [id number] Univers 09:00:00 09:15:00 Visit Kusum S HEALTH 350.1.13.10 it y [facility] 4.2.7.2.686 Solomon as SANDY?BLEA [id number] Ne shabbir FUNEZ 198 [facility] OFFICE [facility] 2023-03-14 2023-03-14 Outpatient R [facility] [id number] Univers 09:00:00 09:00:00 KUSUM ity [facility] 2023-03-08 2023-03-08 [facility] [id number] Univers 00:00:00 00:00:00 Kusum S HEALTH 350.1.13.10 it y of [place] 4.2.7.2.686 Solomon as SANDY?BLEA [id number] Ne checodemetra HAWK 198 [facility] OFFICE [facility] 2023-03-01 2023-03-01 Outpatient R [facility] [id number] Univers 14:32:21 23:59:00 KUSUM ity [facility] 2023-03-01 2023-03-01 [facility] [id number] Univers 14:32:21 23:59:00 Encounter Kusum [address] 350.1.13.10 ity of [place] 4[place]2.7.2.686 [place] [id number] 2023-02-23 2023-02-23 Outpatient R [facility] [id number] Univers 09:47:14 23:59:00 KUSUM ity [facility] 2023-02-23 2023-02-23 [facility] 1.2.840.114 [id number] Univers 09:47:14 23:59:00 Encounter Kusum S HEALTH 350.1.13.10 ity of [place] 4.2.7.2.686 Solomon as SANDY?BLEA [id number] Ne checodemetra FUNEZ 809 [facility] OFFICE [facility] 2023-02-23 2023-02-23 Office [facility] 1.2.840.114 [id number] Univers 09:15:00 10:23:38 Visit [facility] 350.1.13.10 it y of [place] 4.2.7.2.686 Solomon as SANDY?BLEA [id number] Ne shabbir FUNEZ [address] [place] [address] MEDICAL OFFICE [facility] 2023-02-23 2023-02-23 Orders Doctor ABISAI [id number] [id number] Univers 00:00:00 00:00:00 Only Unassigned, BAR 350.1.13.10 ity of [place] [facility] 4.2.7.2.686 Solomon as [id number] [address] 2023-01-25 2023-01-25 Outpatient MHIE MHIE [id number] Memoria 14:45:00 14:45:00 34 dmitry FunkRoxbury 2023-01-25 2023-01-25 Outpatient MHIE MHIE [id number] Memoria 14:45:00 14:45:00 34 [facility] 2023-01-10 2023-01-10 Outpatient MHIE MHIE [id number] Memoria 14:45:00 14:45:00 33 dmitry [place] 2023-01-10 2023-01-10 Outpatient MHIE MHIE [id number] Memoria 14:45:00 14:45:00 33 [facility] 2022-12-25 2022-12-25 Orders Doctor ABISAI [id number] [id number] Univers 00:00:00 00:00:00 Only Unassigned, BAR 350.1.13.10 ity of [place] [facility] 4.2.7.2.686 Solomon as [id number] [address] 2022-11-08 2022-11-08 Outpatient MHIE MHIE [id number] Memoria 15:15:00 15:15:00 32 dmitry Donato 2022-11-08 2022-11-08 Outpatient MHIE MHIE [id number] Memoria 15:15:00 15:15:00 32 dmitry Donato 2022-10-05 2022-10-05 Outpatient MHIE MHIE [id number] Memoria 13:30:00 13:30:00 31 dmitry Donato 2022-10-05 2022-10-05 Outpatient MHIE MHIE [id number] Memoria 13:30:00 13:30:00 31 l Tanmay 2022-09-29 2022-09-29 Office [facility] 1.2.840.114 [id number] Univers 10:45:00 11:00:00 Visit [facility] 350.1.13.10 it y of [place] 4.2.7.2.686 Solomon as SANDY?BLEA [id number] Ne shabbir [address]WK[address] OFFICE [facility] 2022-09-29 2022-09-29 Outpatient [facility] [id number] Univers 10:45:00 10:45:00 [facility] 2022-09-19 2022-09-19 Telephone [facility] [id number] Univers 00:00:00 00:00:00 [facility] HEALTH 350.1.13.10 it y of [place] 4.2.7.2.686 Solomon as SANDY?BLEA [id number] Ne shabbir [address]WK[address] OFFICE [facility] 2022-09-12 2022-09-12 Telephone [facility] [id number] Univers 00:00:00 00:00:00 [facility] HEALTH 350.1.13.10 it y of [place] 4.2.7.2.686 Solomon as SANDY?BLEA [id number] [address] 2022-09-05 2022-09-05 Orders Doctor ABISAI 1.2.840.114 [id number] Univers 00:00:00 00:00:00 Only Unassigned, BAR 350.1.13.10 ity of [place] [facility] 4.2.7.2.686 Solomon as [id number] [address] 2022-08-24 2022-08-24 Outpatient R [facility] [id number] Univers 11:15:00 11:41:29 [facility] 2022-08-24 2022-08-24 Office [facility] 1.2.840.114 [id number] Univers 11:15:00 11:30:00 Visit [facility] 350.1.13.10 it y of [place] 4.2.7.2.686 Solomon as SANDY?BLEA [id number] Ne shabbir FUNEZ 198 [facility] OFFICE [facility] 2022-08-21 2022-08-21 Orders Doctor ABISAI 1.2.840.114 [id number] Univers 00:00:00 00:00:00 Only Unassigned, BAR 350.1.13.10 ity of [place] [facility] 4.2.7.2.686 Solomon as [id number] [address] 2022-08-17 2022-08-17 Outpatient R [facility] [id number] Univers 10:45:00 10:45:00 NICHOLE perez [facility] 2022-08-17 2022-08-17 [facility] 1.2.840.114 [id number] Univers 00:00:00 00:00:00 Nichole [facility] 350.1.13.10 it y of [place] 4.2.7.2.686 Solomon as SANDY?BLEA [phone] Ne shabbir FUNEZ 198 [facility] 2022-08-14 2022-08-14 Outpatient R [facility] [id number] Univers 13:15:00 13:15:00 NICHOLE perez [facility] 2022-08-14 2022-08-14 Entry Table Operator Aime, Adc Lab Main [facility] 1.2.8 40.114 [id number] Univers 08:15:00 08:30:00 Visit Nichole Lau 350.1.13.10 ity of [place].2.7.2.[place] [id number] Ne shabbir ROSENBERG 353 [facility] 2022-08-14 2022-08-14 Outpatient R [facility] [id number] Univers 08:15:00 08:15:00 NICHOLE perez [facility] 2022-08-10 2022-08-10 Outpatient ERICKSON_R D[facility]EL [facility] 1278 [place] 00:00:00 00:00:00 0105 [facility] 2022-08-10 2022-08-10 Telephone [facility] 1.2.840.114 [id number] Univers 00:00:00 00:00:00 Nichole Neely HEALTH 350.1.13.10 it y of [place] 4.2.7.2.686 Solomon as SANDY?BLEA [phone] Ne shabbir HAWK [address] [place] MEDICAL OFFICE [facility] 2022-08-10 2022-08-10 Orders Doctor ABISAI 1.2.840.114 [id number] Univers 00:00:00 00:00:00 Only Unassigned, BAR 350.1.13.10 ity of [place] [facility] 4.2.7.2.686 Solomon as [phone] [address] 2022-08-09 2022-08-09 Outpatient R [facility] [id number] Univers 13:00:00 13:31:36 NICHOLE ity [facility] 2022-08-09 2022-08-09 Office [facility] 1.2.987.628 [id number] Univers 13:00:00 13:31:36 Visit Nichole Neely HEALTH 350.1.13.10 it y of [place] 4.2.7.2.686 Solomon as SANDY?BLEA [phone] Ne shabbir FUNEZ [address] [place] [address] OFFICE [facility] 2022-07-24 2022-07-24 Orders Doctor ABISAI 1.2.840.114 [id number] Univers 00:00:00 00:00:00 Only Unassigned, BAR 350.1.13.10 ity of [place] [facility] 4.2.7.2.686 Solomon as [id number] [address] 2022-07-12 2022-07-12 Telephone [facility] 1.2.808.442 [id number] Univers 00:00:00 00:00:00 Kusum S HEALTH 350.1.13.10 it y of [place] 4.2.7.2.686 Solomon as SANDY?BLEA [phone] Ne shabbir [address] MEDICAL OFFICE [facility] 2022-07-10 2022-07-10 (TEL) [facility] [id number] Co mmon 00:00:00 00:00:00 [facility] 2022-06-23 2022-06-23 Telephone [facility] 1.2.977.458 [id number] Univers 00:00:00 00:00:00 Kusum S HEALTH 350.1.13.10 it y of [place] 4.2.7.2.686 Solomon as SANDY?BLEA [id number] Ne shabbir FUNEZ 198 [facility] 2022-06-20 2022-06-20 Telephone [facility] 1.2.840.114 [id number] Univers 00:00:00 00:00:00 Nichole L HEALTH 350.1.13.10 it y of [place] 4.2.7.2.686 Solomon as SANDY?BLEA [id number] Ne shabbir FUNEZ 198 [facility] 2022-06-14 2022-06-14 Orders Doctor ABISAI 1.2.840.114 [id number] Univers 00:00:00 00:00:00 Only Unassigned, BAR 350.1.13.10 ity of [place] [facility] 4.2.7.2.686 Solomon as [id number] [facility] [address] [place] 2022-06-13 2022-06-13 Telephone [facility] 1.2.424.214 [id number] Univers 00:00:00 00:00:00 Kusum S HEALTH 350.1.13.10 it y of [place] 4.2.7.2.686 Solomon as SANDY?BLEA [id number] Ne shabbir FUNEZ 198 [facility] 2022-06-06 2022-06-06 Emergency [facility] 1.2.841.927 [id number] Univers 15:32:00 16:14:00 Katty S [place] 350.1.13.10 i ty of [place].2.7.2.[place] [id number] [facility] [address] [place] 2022-06-06 2022-06-06 Outpatient Reena PAC[facility]CO [facility] [id number] Univers 13:41:07 15:31:00 KUSUM perez [facility] 2022-06-06 2022-06-06 Outpatient Reena PACHECO [facility] ERT [id number] Univers 13:41:07 15:31:00 KUSUM perez [facility] 2022-06-06 2022-06-06 Hospital [facility] 1.2.840.114 [id number] Univers 13:41:07 15:31:00 Encounter [address] 350.1.13.10 ity of [facility] 4.2.7.2.686 [place] [id number] [facility] [address] [place] 2022-06-06 2022-06-06 Orders Doctor ABISAI 1.2.840.114 [id number] Univers 00:00:00 00:00:00 Only Unassigned, BAR 350.1.13.10 ity of [place] [facility] 4.2.7.2.686 Solomon as [phone] [address] 2022-05-24 2022-05-24 Outpatient R [facility] [id number] Univers 15:08:06 23:59:00 [facility] 2022-05-24 2022-05-24 Office [facility] 1.2.840.114 [id number] Univers 15:00:00 15:49:56 Visit Kusum Copeland HEALTH 350.1.13.10 it y of [facility] 4.2.7.2.686 Solomon as SANDY?BLEA [id number] [address] OFFICE [facility] 2022-05-11 2022-05-11 Telephone [facility] 1.2.840.114 [id number] Univers 00:00:00 00:00:00 Nichole Dmitry HEALTH 350.1.13.10 it y of [place] 4.2.7.2.686 Solomon as SANDY?BLEA [id number] [address] OFFICE [facility] 2022-05-10 2022-05-10 Orders Doctor ABISAI 1.2.840.114 [id number] Univers 00:00:00 00:00:00 Only Unassigned, BAR 350.1.13.10 ity of [facility] 4.2.7.2.686 Solomon as [id number] [address] 2022-05-03 2022-05-03 OFFICE [facility] [id number] Co mmon 00:00:00 00:00:00 VISIT Spirit ESTAB PT - CHI LEVEL 4 [facility] 2022-04-04 2022-04-04 Orders Doctor ABISAI 1.2.840.114 [id number] Univers 00:00:00 00:00:00 Only Unassigned, BAR 350.1.13.10 ity of [place] [facility] 4.2.7.2.686 Solomon as [id number] [facility] [address] 2022-03-27 2022-03-27 Transition RosyDAVE harding 1.2.840.114 [id number] Univers 00:00:00 00:00:00 of Care Karen L PALOMO 350.1.13.10 i ty of [place]2.7.2.[place] [id number] [facility] [address] 2022-03-22 2022-03-24 Outpatient PRAKASH [facility] [id number] Univers 10:30:00 20:18:00 ity of [facility] 2022-03-22 2022-03-24 [facility] Prakash Waller 1.2.840.114 [id number] Univers 10:30:00 20:18:00 Encounter Vi DINERO 350.1.13.10 ity of [facility] 4.2.7.2.686 Solomon as [phone] [facility] [address] 2022-03-24 2022-03-24 Surgery [facility] 1.2.840.114 [id number] Univers 14:05:00 15:11:00 Winsons ICAL 350.1.13.10 it y of [place] 4.2.7.2.686 Solomon as BLDG [id number] [facility] [address] 2022-03-23 2022-03-23 Surgery [facility] 1.2.840.114 [id number] Univers 09:00:00 09:43:00 Winsons ICAL 350.1.13.10 it y of [place] 4.2.7.2.686 Solomon as BLDG [phone] [facility] [address] 2022-03-08 2022-03-08 (TEL) [facility] [id number] Co mmon 00:00:00 00:00:00 Spirit [facility] 2022-03-08 2022-03-08 OFFICE STLC STLC [id number] Co mmon 00:00:00 00:00:00 VISIT [facility] - CHI LEVEL 4 [facility] 2022-02-21 2022-02-21 Outpatient Reena TARA [facility] [id number] Univers 14:58:27 23:59:00 [facility] 2022-02-21 2022-02-21 Outpatient [facility] [id number] Univers 14:00:00 15:28:39 [facility] 2022-02-21 2022-02-21 Office [facility] 1.2.840.114 [id number] Univers 14:00:00 15:28:39 Visit [facility] 350.1.13.10 it y of [facility] 4.2.7.2.686 Solomon as SANDY?BLEA [phone] Ne shabbir FUNEZ [address] [place] [address] MEDICAL OFFICE BUILDING 2022-02-14 2022-02-14 Outpatient VERNELL GONZÁLES, [facility] [id number] [place] 10:45:00 10:45:00 MALDONADO -[id number] [facility] 2022-02-09 2022-02-09 Outpatient Reena [facility] [id number] Univers 16:00:00 16:00:00 [facility] 2022-01-31 2022-01-31 (TEL) [facility] [id number] Co mmon 00:00:00 00:00:00 Spirit [facility] 2022-01-20 2022-01-20 Outpatient R ISREAL [facility] [id number] Univers 18:06:07 23:59:00 [facility] 2022-01-20 2022-01-20 [facility] 1.2.840.396 [id number] Univers 18:06:07 23:59:00 Encounter [facility] Amoobi 350.1.13.10 ity of [place] 4.2.7.2.686 Solomon as SANDY?BLEA [id number] Ne shabbir FUNEZ [address] [place] MEDICAL OFFICE BUILDING 2022-01-20 2022-01-20 Urgent Roxy Bach [facility] 1.2.840.114 [id number] Univers 18:00:00 18:15:46 [facility] 350.1.13.10 ity of [place] 4.2.7.2.686 Solomon as SANDY?BLEA [id number] Ne shabbir FUNEZ [address] [place] MEDICAL OFFICE BUILDING 2022-01-17 2022-01-17 Outpatient VERNELL GONZÁLES [facility] [id number] [place] 10:38:00 10:38:00 MALDONADO -[id number] [facility] 2022-01-13 2022-01-13 (TEL) STLMLC STLMLC [id number] Co mmon 00:00:00 00:00:00 [facility] 2022-01-12 2022-01-12 (TEL) STLMLC STLMLC [id number] Co mmon 00:00:00 00:00:00 [facility] 2022-01-11 2022-01-11 Outpatient R [facility] NING [id number] Univers 07:32:00 09:32:00 MEHRDAD Field o f [facility] 2022-01-11 2022-01-11 Hospital [facility] 1.2.840.114 [id number] Univers 07:32:00 09:32:00 Encounter Mehrdad field 350.1.13.10 ity of [place].2.[place] SURGICAL [id number] [facility] [address] 2022-01-11 2022-01-11 Surgery [facility] 1.2.840.114 [id number] Univers 08:20:00 08:56:00 Mehrdad field 350.1.13.10 ity of [place].2.[place] SURGICAL [id number] [facility] [address] 2022-01-10 2022-01-10 Laboratory Only, Adc Test [facility] 1.2.840. 114 [id number] Univers 08:45:00 09:00:00 Only Mehrdad Blair 350.1.1 3.10 ity of [facility] 4.2.7.2.686 [facility] [id number] [facility] [address] 2022-01-10 2022-01-10 Outpatient R [facility]H [facility] [id number] [facility] 08:45:00 08:45:00 MEHRDAD Field o f [facility] 2022-01-10 2022-01-10 Orders Doctor BARONE 1.2.840.114 [id number] Univers 00:00:00 00:00:00 Only Unassigned, BAR 350.1.13.10 ity of [facility] 4.2.7.2.686 [facility] [phone] [facility] [address] 2022-01-03 2022-01-03 Outpatient VERNELL GONZÁLES [facility] [id number] [facility] 08:[facility] 08:50:00 MALDONADO [id number] [facility] 2021-12-07 2021-12-07 OFFICE STLMLC STLMLC [id number] Co mmon 00:00:00 00:00:00 VISIT [facility] ESTAB PT - CHI LEVEL 4 [facility] 2021-11-24 2021-11-24 (TEL) STLMLC STLMLC [id number] Co mmon 00:00:00 00:00:00 Spirit - CHI [facility] 2021-11-11 2021-11-11 (TEL) STLMLC STLMLC [id number] Co mmon 00:00:00 00:00:00 Spirit - CHI [facility] 2021-11-08 2021-11-08 OFFICE STLMLC STLMLC [id number] Co mmon 00:00:00 00:00:00 VISIT Spirit ESTAB PT - CHI LEVEL 4 [facility] 2021-11-03 2021-11-03 NON-BILLAB STLMLC STLMLC [id number] Common 00:00:00 00:00:00 LE VISIT Spiri t - CHI [facility] 2021-10-20 2021-10-20 NON-BILLAB STLMLC STLMLC [id number] Common 00:00:00 00:00:00 LE VISIT Spiri t [facility] 2021-10-17 2021-10-18 Inpatient [facility] [id number] [facility] 14:18:00 13:18:00 Alejandra Jina Spiveyt on [facility] are [facility] 2021-10-13 2021-10-13 (TEL) STLMLC STLMLC [id number] Co mmon 00:00:00 00:00:00 [facility] 2021-10-11 2021-10-11 OFFICE STLMLC STLMLC [id number] Co mmon 00:00:00 00:00:00 VISIT [facility] PT - CHI LEVEL 4 [facility] 2021-09-12 2021-09-12 (TEL) STLMLC STLMLC [id number] Co mmon 00:00:00 00:00:00 [facility] 2021-09-02 2021-09-02 (TEL) STLMLC STLMLC [id number] Co mmon 00:00:00 00:00:00 [facility] 2021-09-02 2021-09-02 (TEL) STLMLC STLMLC [id number] Co mmon 00:00:00 00:00:00 [facility] 2021-09-02 2021-09-02 (TEL) STLMLC STLMLC [id number] Co mmon 00:00:00 00:00:00 [facility] 2021-08-31 2021-08-31 OFFICE STLMLC STLMLC [id number] Co mmon 00:00:00 00:00:00 VISIT [facility] ESTAB PT - CHI LEVEL 4 [facility] 2021-08-25 2021-08-25 (TEL) STLMLC STLMLC [id number] Co mmon 00:00:00 00:00:00 [facility] 2021-08-23 2021-08-23 OFFICE STLMLC STLMLC [id number] Co mmon 00:00:00 00:00:00 VISIT [facility] PT - CHI LEVEL 4 [facility] 2021-08-16 2021-08-16 OL DIG E/M STLMLC STLMLC [id number] Common 00:00:00 00:00:00 C 11-20 Spir it MIN [facility] 2021-08-15 2021-08-15 (TEL) STLMLC STLMLC [id number] Co mmon 00:00:00 00:00:00 Spirit CHI [facility] 2021-08-02 2021-08-02 Emergency X [facility] ERT [id number] Univers 12:57:00 18:07:00 KATTY perez [facility] 2021-08-02 2021-08-02 Emergency Lavell John [facility] 1.2.840. 114 [id number] Univers 12:57:00 18:07:00 Katty Vieira S [place] 350.1.13.10 ity [facility] 4.2.7.2.686 [facility] [id number] [place] [address] [address] 2021-07-27 2021-07-27 (TEL) STLMLC STLMLC [id number] Co mmon 00:00:00 00:00:00 Spirit CHI [facility] 2021-07-12 2021-07-12 Outpatient VERNELL ELIECER, [facility] [id number] [facility] 07:52:00 07:52:00 MALDONADO -[id number] [facility] 2021-07-07 2021-07-07 (TEL) STLMLC STLMLC [id number] Co mmon 00:00:00 00:00:00 Spirit - CHI [facility] 2021-07-06 2021-07-06 OFFICE STLMLC STLMLC [id number] Co mmon 00:00:00 00:00:00 VISIT [facility] PT - CHI LEVEL 4 [facility] 2021-06-28 2021-06-28 Outpatient MHIE MHIE [id number] Memoria 16:00:00 16:00:00 30 l [place] 2021-06-28 2021-06-28 Outpatient MHIE MHIE [id number] Memoria 16:00:00 16:00:00 30 dmitry Donato 2021-06-22 2021-06-22 OFFICE STLMLC STLMLC [id number] Co mmon 00:00:00 00:00:00 VISIT Magan ESTAB PT - CHI LEVEL 4 [facility] 2021-06-14 2021-06-14 Outpatient VERNELL GONZÁLES [facility] [id number] [place] 08:05:00 08:05:00 MALDONADO -[id number] [facility] 2021-06-02 2021-06-02 OFFICE STLMLC STLMLC [id number] Co mmon 00:00:00 00:00:00 VISIT Spirit ESTAB PT - CHI LEVEL 4 [facility] 2021-05-31 2021-05-31 Outpatient VERNELL GONZÁLES [facility] [id number] [place] 11:00:00 11:00:00 MALDONADO -[id number] [facility] 2021-05-24 2021-05-24 Outpatient MHIE MHIE [id number] Memoria 15:30:00 15:30:00 29 l [place] 2021-05-24 2021-05-24 Outpatient MHIE MHIE [id number] Memoria 15:30:00 15:30:00 29 l [place] 2021-05-18 2021-05-18 SUB ANNUAL STLMLC STLMLC [id number] Common 00:00:00 00:00:00 MCR Spirit WELLNESS - CHI VISIT [facility] 2021-05-09 2021-05-09 [facility] 1.2.668.607 [id number] Univers 10:58:00 17:26:00 Lavell Mcfarlane 350.1.13.10 i ty of [place] 4.2.7.2.686 [facility] [id number] [facility] [address] 2021-05-04 2021-05-04 [facility] 1.2.840.114 [id number] Univers 11:54:00 14:35:00 Mehrdad Guaman 350.1.13.10 ity of [place] 4.2.7.2.686 [facility] Surgical [id number] [facility] [address] 2021-05-04 2021-05-04 Surgery [facility] 1.2.840.114 [id number] Univers 13:25:00 13:57:00 Jennifer fieldanton Hay [place] 350.1.13.10 ity of [place] Surgical [id number] [facility] [address] 2021-05-03 2021-05-03 Laboratory Only, Adc Test [facility] 1.2.840. 114 [id number] Univers 08:07:19 08:22:19 Only Mehrdad Blair 350.1.1 3.10 ity of [place] 4.2.7.2.686 [facility] [place] [id number] [facility] 353 [address] 2021-05-03 2021-05-03 Outpatient R ROCCOIN [facility] [id number] Univers 07:45:00 07:45:00 MEHRDAD Fieldy o f [facility] 2021-05-03 2021-05-03 Orders Doctor ABISAI 1.2.840.114 [id number] Univers 00:00:00 00:00:00 Only Unassigned, BAR 350.1.13.10 ity of [place] [facility] 4.2.7.2.686 Solomon [id number] [facility] [address] 2021-04-20 2021-04-20 Outpatient STLMLC STLMLC [id number] Common 00:00:00 00:00:00 [facility] 2021-03-10 2021-03-10 Hospital Radiology [facility] 1.2.840.114 [id number] 10:47:03 23:59:00 Encounter [place] 350.1.13.10 [place] 4.2.7.2.686 [place] [id number] [id number] 2021-03-10 2021-03-10 Hospital Radiology [facility] 1.2.840.114 [id number] 10:45:00 10:46:00 Encounter [place] 350.1.13.10 [place] 4.2.7.2.686 [place] [id number] 807 2021-03-10 2021-03-10 Outpatient R RADIOLOGY [facility] [id number] Univers 00:00:00 00:00:00 ity of [facility] 2021-03-08 2021-03-08 Urgent [facility] 1.2.840.114 [id number] 20:00:13 20:20:13 Care [facility] 350.1.13.10 [place] 4.2.7.2.686 [facility] [id number] nal [address] 2021-03-08 2021-03-08 Outpatient Reena IRENE [facility] [id number] Univers 20:00:00 20:00:00 [facility] 2021-02-24 2021-02-24 Outpatient STLMLC STLMLC [id number] Common 00:00:00 00:00:00 [facility] 2021-02-19 2021-02-19 Outpatient STLMLC STLMLC [id number] Common 00:00:00 00:00:00 [facility] 2021-02-18 2021-02-18 Outpatient STLMLC STLMLC [id number] Common 00:00:00 00:00:00 [facility] 2021-02-16 2021-02-16 Outpatient STLMLC STLMLC [id number] Common 00:00:00 00:00:00 [facility] 2021-01-31 2021-01-31 Transition Dave Lowery 1.2.840.114 [id number] 00:00:00 00:00:00 of Care Karen Neely [place] 350.1.13.10 [place] 4.2.7.2.686 [id number] 2021-01-18 2021-01-[address] [facility] 1.2.840.1 14 [id number] 21:13:00 14:30:00 Encounter Mauro Chinchilla 350.1.13.10 Gomez [place] 4.2.7.2.686 [place] [id number] 2021-01-25 2021-01-25 Anesthesia Tai Avalos [facility] 1.2.840.11 [id number] 08:49:00 09:30:00 Event Randell López 350.1.13.10 [place] 4.2.7.2.686 Surgical [id number] [place] 020 2021-01-25 2021-01-25 Surgery [place] 1.2.840.114 [id number] 08:33:00 09:08:00 [place] 350.1.13.10 [place] 4.2.7.2.686 Surgical [id number] [place] 020 2021-01-19 2021-01-19 Outpatient STLMLC STLMLC [id number] Common 00:00:00 00:00:00 [facility] 2021-01-14 2021-01-14 Outpatient MHIE MHIE [id number] Memoria 13:30:00 13:30:00 28 l [place] 2021-01-14 2021-01-14 Outpatient MHIE MHIE [id number] Memoria 13:30:00 13:30:00 28 l [place] 2020-12-31 2020-12-31 Outpatient STLMLC STLMLC [id number] Common 00:00:00 00:00:00 [facility] 2020-12-30 2020-12-30 Outpatient STLMLC STLMLC [id number] Common 00:00:00 00:00:00 [facility] 2020-12-20 2020-12-20 Outpatient STLMLC STLMLC [id number] Common 00:00:00 00:00:00 [facility] 2020-12-14 2020-12-14 Outpatient [facility] [id number] [facility] 08:37:00 08:37:00 MALDONADO -[id number] [facility] 2020-12-08 2020-12-08 Telephone Sid, [facility] 1.2.840.114 [id number] 00:00:00 00:00:00 [facility] 350.1.13.10 Surgical 4.2.7.2.686 Specialti [id number] es 198 [place] 2020-12-07 2020-12-07 Orders Doctor BARONE 1.2.840.114 [id number] 00:00:00 00:00:00 Only Unassigned, BAR 350.1.13.10 [facility] 4.2.7.2.686 [id number] 009 2020-12-06 2020-12-06 Office [facility] 1.2.507.701 [id number] 15:09:54 15:49:09 Visit [facility] 350.1.13.10 Surgical 4.2.7.2.686 Specialti [id number] es 198 [place] 2020-12-06 2020-12-06 Outpatient Reena LAU [facility] [id number] Univers 15:00:00 15:00:00 [facility] 2020-11-30 2020-11-30 Outpatient [facility] [id number] [place] 09:00:00 09:00:00 MALDONADO -[id number] [facility] 2020-11-26 2020-11-26 [facility]patient [facility] [id number] Univers 09:30:00 09:30:00 [facility] 2020-11-24 2020-11-24 Outpatient Reena PACHECO [facility] [id number] Univers 09:30:00 09:30:00 [facility] 2020-11-16 2020-11-16 Outpatient STLMLC STLMLC [id number] Common 00:00:00 00:00:00 [facility] 2020-11-11 2020-11-11 Outpatient Reena PACHECO [facility] [id number] Univers 11:15:00 11:15:00 [facility] 2020-11-09 2020-11-09 Outpatient Reena PACHECO [facility] [id number] Univers 13:45:00 13:45:00 [facility] 2020-11-09 2020-11-09 Outpatient Reena LAU [facility] [id number] Univers 00:00:00 00:00:00 [facility] 2020-11-08 2020-11-08 Outpatient Reena LAU [facility] [id number] Univers 00:00:00 00:00:00 [facility] 2020-11-03 2020-11-03 Outpatient STLMLC STLMLC [id number] Common 00:00:00 00:00:00 [facility] 2020-10-25 2020-10-25 Outpatient STLMLC STLMLC [id number] Common 00:00:00 00:00:00 [facility] 2020-10-22 2020-10-22 Outpatient STLMLC STLMLC [id number] Common 00:00:00 00:00:00 [facility] 2020-10-20 2020-10-20 Outpatient STLMLC STLMLC [id number] Common 00:00:00 00:00:00 [facility] 2020-10-14 2020-10-14 Outpatient MHIE MHIE [id number] Memoria 15:00:00 15:00:00 27 dmitry FunkTanmay 2020-10-14 2020-10-14 Outpatient MHIE MHIE [id number] Memoria 15:00:00 15:00:00 27 dmitry FunkTanmay 2020-10-14 2020-10-14 Outpatient MHIE MHIE [id number] Memoria 14:15:00 14:15:00 24 dmitry Tanmay 2020-10-14 2020-10-14 Outpatient MHIE MHIE [id number] Memoria 14:15:00 14:15:00 25 [place] 2020-10-12 2020-10-12 Outpatient STLMLC STLMLC [id number] Common 00:00:00 00:00:00 [facility] 2020-09-15 2020-09-15 Outpatient STLMLC STLMLC [id number] Common 00:00:00 00:00:00 [facility] 2020-09-10 2020-09-10 Outpatient Reena JORDAN [facility] [id number] Univers 19:40:00 19:40:00 AMANDA vincent [facility] 2020-09-04 2020-09-04 [facility] [id number] [place] 09:00:00 09:00:00 [place] -[id number] [facility] 2020-08-24 2020-08-24 Outpatient MHIE MHIE [id number] Memoria 13:45:00 13:45:00 26 [place] 2020-08-24 2020-08-24 Outpatient MHIE THELMAIE [id number] Memoria 13:45:00 13:45:00 26 [place] 2020-07-22 2020-07-22 Outpatient MHIE THELMAIE [id number] Memoria 14:30:00 14:30:00 24 l [place] 2020-07-22 2020-07-22 Outpatient MHIE THELMAIE [id number] Memoria 14:30:00 14:30:00 24 l [place] 2020-07-12 2020-07-12 Outpatient STLMLC STLMLC [id number] Common 00:00:00 00:00:00 [facility] [facility] 2020-[facility]-11 2020-06-11 Outpatient STLMLC STLMLC [id number] Common 00:00:00 00:00:00 [facility] 2020-06-01 2020-06-01 Outpatient Reena [facility] [id number] Eufemia 11:45:00 11:45:00 MEHRDAD Field [facility] 2020-05-26 2020-05-26 Outpatient STLMLC STLMLC [id number] Common 00:00:00 00:00:00 [facility] 2020-05-11 2020-05-11 Outpatient STLMLC STLMLC [id number] Common 00:00:00 00:00:00 [facility] 2020-05-04 2020-05-04 Outpatient VERNELL GONZÁLES [facility] [id number] [place] 09:57:00 09:57:00 MALDONADO -[id number] [facility] 2020-04-20 2020-04-20 Outpatient VERNELL GONZÁLES [facility] [id number] [place] 09:38:00 09:38:00 MALDONADO -[id number] [facility] 2020-04-16 2020-04-16 [facility] [id number] Common 15:00:00 15:00:00 [facility] 2020-04-16 2020-04-16 Outpatient STLMLC STLMLC [id number] Common 00:00:00 00:00:00 [facility] 2020-04-13 2020-04-13 [facility] [id number] Common 08:51:00 08:51:[address] [facility] 2020-04-08 2020-04-08 Outpatient MHIE MHIE [id number] Memoria 13:45:00 13:45:00 22 l [place] 2020-04-08 2020-04-08 Outpatient MHIE MHIE [id number] Memoria 13:45:00 13:45:00 22 l [place] 2020-03-18 2020-03-18 Outpatient MHIE MHIE [id number] Memoria 15:00:00 15:00:00 19 l [place] 2020-03-18 2020-03-18 Outpatient MHIE MHIE [id number] Memoria 15:00:00 15:00:00 20 [place] 2020-03-18 2020-03-18 Outpatient MHIE MHIE [id number] Memoria 15:00:00 15:00:00 21 l [place] 2020-03-18 2020-03-18 Outpatient MHIE MHIE [id number] Memoria 15:00:00 15:00:00 19 l [place] 2020-03-18 2020-03-18 Outpatient MHIE MHIE [id number] Memoria 15:00:00 15:00:00 21 l [place] 2020-03-18 2020-03-18 Outpatient MHIE MHIE [id number] Memoria 15:00:00 15:00:00 20 l [place] 2020-03-11 2020-03-11 Outpatient MHIE MHIE [id number] Memoria 16:15:00 16:15:00 23 l [place] 2020-03-11 2020-03-11 Outpatient MHIE MHIE [id number] Memoria 16:15:00 16:15:00 23 l [place] 2020-02-27 2020-02-27 [facility] [id number] Common 14:00:00 14:00:[address] [facility] 2020-02-23 2020-02-23 [facility] [id number] Common 13:12:00 13:12:[address] [facility] 2020-02-18 2020-02-18 [facility] [id number] Common 09:08:00 09:08:[address] [facility] 2020-02-16 2020-02-16 [facility] [id number] Common 18:34:00 18:34:[address] [facility] 2020-02-11 2020-02-11 [facility] [id number] Common 13:20:00 13:20:00 t [facility] [address] [facility] 2020-01-06 2020-01-06 [facility] [id number] Common 18:46:00 18:46:00 t [facility] [address] [facility] 2019-12-22 2019-12-22 Outpatient Marcell [facility] [id number] Common 14:00:00 14:00:00 t [facility] 2019-12-17 2019-12-17 Outpatient MHIE MHIE [id number] Memoria 15:45:00 15:45:00 17 l [place] 2019-12-17 2019-12-17 Outpatient MHIE MHIE [id number] Memoria 15:45:00 15:45:00 17 l [place] 2019-12-05 2019-12-05 Outpatient MHIE MHIE [id number] Memoria 16:00:00 16:00:00 18 l [place] 2019-12-05 2019-12-05 Outpatient MHIE MHIE [id number] Memoria 16:00:00 16:00:00 18 l [place] 2019-12-05 2019-12-05 [facility] [id number] Common 10:40:00 10:40:[address] [facility] 2019-11-28 2019-11-28 [facility] [id number] Common 11:00:00 11:00:[address] [facility] 2019-11-19 2019-11-19 Outpatient MHIE THELMAIE [id number] Memoria 08:15:00 08:15:00 16 l [place] 2019-11-19 2019-11-19 Outpatient MHIE MHMAXIMO [id number] Memoria 08:15:00 08:15:00 16 l [place] 2019-11-18 2019-11-18 Outpatient MHIE TONIA [id number] Memoria 10:15:00 10:15:00 15 l [place] 2019-11-18 2019-11-18 Outpatient MHMAXIMO RANDALL [id number] Memoria 10:15:00 10:15:00 15 l [place] 2019-11-10 2019-11-10 [facility] [id number] Common 15:55:00 15:55:00 t [facility] it Road [facility] 2019-11-05 2019-11-05 [facility] [id number] Common 18:33:00 18:33:00 t [facility] [address] [facility] 2019-10-28 2019-10-28 [facility] [id number] Common 11:08:00 11:08:00 t [facility] [address] [facility] 2019-10-27 2019-10-27 [facility] [id number] Common 14:31:00 14:31:00 t [facility] [address] [facility] 2019-10-13 2019-10-13 [facility] [id number] Common 09:00:00 09:00:00 t [facility] [address] [facility] 2019-09-29 2019-09-29 [facility] [id number] Common 11:30:00 11:30:00 t [facility] [address] [facility] 2019-09-26 2019-09-26 Outpatient MHIE TONIA [id number] Memoria 09:15:00 09:15:00 14 l [place] 2019-09-26 2019-09-26 Outpatient MHMAXIMO RANDALL [id number] Memoria 09:15:00 09:15:00 14 dmitry Donato 2019-09-18 2019-09-18 [facility] [id number] Common 14:40:00 14:40:00 [facility] [address] [facility] 2019-09-02 2019-09-02 Outpatient VERNELL GONZÁLES [facility] [id number] [place] 10:28:00 10:28:00 MALDONADO -[id number] [facility] 2019-08-19 2019-08-19 Outpatient VERNELL GONZÁLES [facility] [id number] [place] 09:53:00 09:53:00 MALDONADO -[id number] [facility] 2019-08-15 2019-08-15 Outpatient TONIA RANDALL [id number] Memoria 13:30:00 13:30:00 13 dmitry Donato 2019-08-15 2019-08-15 Outpatient TONIA RANDALL [id number] Memoria 13:30:00 13:30:00 13 dmitry Donato 2019-08-14 2019-08-14 [facility] [id number] Common 14:18:00 14:18:00 [facility] 2019-08-13 2019-08-13 [facility] [id number] Common 11:00:00 11:00:00 [facility] 2019-07-18 2019-07-18 [facility] [id number] Common 09:00:00 09:00:00 [facility] [address] [facility] 2019-07-08 2019-07-08 Outpatient TONIA RANDALL [id number] Memoria 10:00:00 10:00:00 11 dmitry Donato 2019-07-08 2019-07-08 Outpatient MHMAXIMO RANDALL [id number] Memoria 10:00:00 10:00:00 11 dmitry Donato 2019-06-23 2019-06-23 [facility] [id number] Common 10:40:00 10:40:00 [facility] 2019-06-10 2019-06-10 Outpatient VERNELL GONZÁLES [facility] [id number] [place] 10:56:00 10:56:00 MALDONADO -[id number] [facility] 2019-06-09 2019-06-09 [facility] [id number] Common 12:17:00 12:17:00 [facility] [address] [facility] 2019-06-09 2019-06-09 [facility] [id number] Common 08:20:00 08:20:00 [facility] [address] [facility] 2019-05-30 2019-05-30 [facility] [id number] Common 08:00:00 08:00:00 [facility] 2019-05-23 2019-05-23 Outpatient MHIE MHIE [id number] Memoria 09:15:00 09:15:00 10 dmitry [place] 2019-05-23 2019-05-23 Outpatient MHIE MHIE [id number] Memoria 09:15:00 09:15:00 10 dmitry FunkTanmay 2019-05-20 2019-05-20 Outpatient VERNELL GONZÁLES [facility] [id number] [place] 09:21:00 09:21:00 MALDONADO -[id number] [facility] 2019-05-16 2019-05-16 Outpatient MHIE MHIE [id number] Memoria 08:30:00 08:30:00 12 dmitry FunkTanmay 2019-05-16 2019-05-16 Outpatient MHIE MHIE [id number] Memoria 08:30:00 08:30:00 12 dmitry [place] 2019-05-06 2019-05-06 Outpatient VERNELL GONZÁLES [facility] [id number] [place] 09:45:00 09:45:00 MALDONADO [id number] [facility] 2019-04-30 2019-04-30 Outpatient MHIE MHIE [id number] Memoria 09:15:00 09:15:00 09 dmitry FunkTanmay 2019-04-30 2019-04-30 Outpatient MHIE MHIE [id number] Memoria 09:15:00 09:15:00 09 dmitry Donato 2019-04-04 2019-04-04 Outpatient MHIE MHIE [id number] Memoria 09:30:00 09:30:00 08 dmitry Donato 2019-04-04 2019-04-04 Outpatient MHIE MHIE [id number] Memoria 09:30:00 09:30:00 08 dmitry Donato 2019-04-03 2019-04-03 [facility]patient [facility] [id number] Common 09:00:00 09:00:00 t [facility] 2019-03-24 2019-03-24 [facility] [id number] Common 10:15:00 10:15:00 t Specialty/U Sp coretta Specialty rology - [facility] 2019-03-04 2019-03-04 [facility] [id number] Common 11:00:00 11:00:00 t Specialty/U Sp coretta Specialty rology - [facility] 2019-02-21 2019-02-21 [facility] [id number] Common 13:45:00 13:45:00 t Specialty/U Sp coretta Specialty rology - [facility] 2019-02-18 2019-02-18 [facility] [id number] Common 15:42:00 15:42:00 [facility] [address] [facility] 2019-02-11 2019-02-11 [facility] [id number] Common 13:20:00 13:20:00 [facility] 2018-12-27 2018-12-27 Outpatient MHIE MHIE [id number] Memoria 09:30:00 09:30:00 07 dmitry Donato 2018-12-27 2018-12-27 Outpatient MHIE MHIE [id number] Memoria 09:30:00 09:30:00 07 dmitry Donato 2018-11-21 2018-11-21 Outpatient MHIE MHIE [id number] Memoria 15:00:00 15:00:00 06 dmitry Donato 2018-11-21 2018-11-21 Outpatient MHIE MHIE [id number] Memoria 15:00:00 15:00:00 06 dmitry Donato 2018-11-11 2018-11-11 [facility] [id number] Common 09:20:00 09:20:00 [facility] 2018-10-01 2018-10-01 [facility] [id number] Common 15:30:00 15:30:00 [facility] 2018-09-06 2018-09-06 [facility] [id number] Common 10:00:00 10:00:00 [facility] [address] [facility] 2018-08-22 2018-08-22 Outpatient MHIE MHIE [id number] Memoria 15:15:00 15:15:00 05 dmitry Donato 2018-08-22 2018-08-22 Outpatient MHIE MHIE [id number] Memoria 15:15:00 15:15:00 05 dmitry Donato 2018-06-13 2018-06-13 Outpatient MHIE MHIE [id number] Memoria 14:00:00 14:00:00 04 dmitry Donato 2018-06-13 2018-06-13 Outpatient MHIE MHIE [id number] Memoria 14:00:00 14:00:00 04 dmitry Donato 2018-05-21 2018-05-21 [facility] [id number] Common 08:37:00 08:37:00 [facility] 2018-05-09 2018-05-09 [facility] [id number] Common 08:30:00 08:30:00 [facility] 2018-03-20 2018-03-20 Outpatient MHIE MHIE [id number] Memoria 10:45:00 10:45:00 02 dmitry Donato 2018-03-20 2018-03-20 Outpatient MHIE MHIE [id number] Memoria 10:45:00 10:45:00 02 dmitry Donato 2018-03-13 2018-03-13 Outpatient TONIA RANDALL [id number] Memoria 14:00:00 14:00:00 03 dmitry Donato 2018-03-13 2018-03-13 Outpatient TONIA RANDALL [id number] Memoria 14:00:00 14:00:00 03 dmitry Donato 2017-11-14 2017-11-14 Outpatient TONIA RANDALL [id number] Memoria 10:15:00 10:15:00 01 dmitry Donato 2017-11-14 2017-11-14 Outpatient TONIA RANDALL [id number] Memoria 10:15:00 10:15:00 01 dmitry Donato 2003-10-11 2003-10-11 Emergency [facility] [id number] [place] 04:05:00 06:00:00 GABRIEL -[id number] [facility] Results Test Description Test Time Test Comments Results Result Comments Source POCT GLUCOSE (AUTOMATED) 2022-03-24 21:07:00 Test Item Value Reference Range Interpretation Comme nts POCT GLU (test code = 3990432202) 86 mg/dL 70-110 Lab Interpretation (test code = 39492-4) [facility] 21:07:00 Test Item Value Reference Range Interpretation Comments POCT GLU (test code = 7641582686) 86 mg/dL 70-110 Lab Interpretation (test code = Normal 40772-9) [facility] [id number] 16:43:01 Test Item Value Reference Range Interpretation Comments Case Report (test Surgical Pathology ? ? ? code = 8731341347) ?Case: [id number] ? Authorizing Provider: ?Earnest Nunez MD ? ? ?Collected: ? 03/23/2022 0936 ?Ordering Location: ? ? GI Endoscopy OR Department Received: ?03/23/2022 1143 ?Pathologist: ? Luisana Willard MD PHD ?Specimen: ? ?STOMACH, 1. Antral erythermia biopsy, eval for H. Pylori and intestinal metaplasia ? Final Diagnosis j4xguQPrRJRxg4wyMRSfcQDzL (test code = zEwMzNcZnRuYmpcdWMxIHtccn 6978131758) CxGZgifSwhABGcKXQrQF4dmYt tnJy5rXpiDHAhqtF8yLOtDFkk v0vrZHS3j7snwccrOBVdWNtvY n3miYTiiCrwMeFjGNPsYUg6zP 45STWocZ0uhVDwLUh1ACWwyYZ igfWyAaIrPIKksKSasTL4ATLy NI6vbtaiZSsaTAzjCJWcynR1S TEhqWGxZ9TgDNObQS6ouptvSW Y8AKvjMDXcAZB6AiKzCONfx1L tbth5BrOvnALpFJtmdQZwhprp ryOvILEhquADSzOTRJ8UYETDB MKHYC0EW4guvKFmJJGaAN2uW3 ESBUGHFmEGMHHNN2SoB3bHOOO WSOBEDJjFPAWNIWQUKd1MREGV WVxwYXIgICAgLSBOTyBJTlRFU 9MBJqVFNR2FWUOHNRHQQDZrX6 BcPNjXSNvRI4vKHNsIOF8AMBZ EWTXksYHkAXCmXD8rTs5oAN3f LIrWR4LAQBuPM6AqY7SHPP2XK 83MBPdNGZ9SDSJFLYGplKKtJM FshoAedSCaXElodVvtVAchb79 rcywgTUQgIDgvMTkvMjAyMiAg ASZ3CwEhEC3ouBKpIXZaznHjj GIejBwhyrHpFFfrd5QkS6CaGl AwMFxhbnNpXGRlZmxhbmcxMDM nHNY7txWqWHCtSCjsDRUzUZgk Na9xsMZruVkaMdBqTOPaj7rzf yACRUoeOxUrT078HJJcMMrah8 gss1LdYOFkfYFzc0B9VLZNppc nvYo3z2xlAgNbBsX4dCNnVRlr K1frakHoeZCsL6QglGJnlGy2s VffN80ac0U9SxqcM1yoPPYsHV KhK4XeNY5kDABvYdp3CCK3XUE 5UYIrOAGeV5QzYV2fUGPakKBh CIw7w4bxxDlgKSQyWWO1p5ijU EbiuxN4WY0bow7zuSu0l2nzef QuUHUfRTYkgCMADFWjZ3NhvUt qPh3nlTy2kJdnJsmmHQW2Onl4 EO3nwo44kqq0cIeeCHItkuvzJ wT7IVyqICAgivnnFCo6PPugYB EgqMH9OWCktDBaL0VmUIQdCN0 qwpc9FKY9OJuvAFAmCpQ3CHHe qEYiYRQdwIpiEWrmg623RKM1K cGlVX7yB0Qwc7F9mY7faGRtYQ AkxBLkDmHlBUEnnf7gaQJeUUt cp8CeDVT6voW3fSQrtWNqJFVa BA14Vnzcs0UsThpcQGT0VFKls wQql1Ffq1txIbPgvcWfT4taN2 MbCZGhTZGyDLMrThDaczGzq9F ef3MtmHUliXi4v6gyFTOfHIUf uGbsa3ayKFU5NYUdQ8P0dSEab 2fuWTbwLQCaiMU6soD5LSFcoU AjI0UhwD3fREByRU8jtyr3i0n dZGW9PRglPDXpYjQ5dpU3JEHt hCGcNXYnwSrwSIrki717TLE7Y cUvYIEmt7NzE9JcuEzxK15ypS prH45eDVXggNalqM1hcOnraY1 cZjBcZnMyNFxxbFxwbGFpblxm MVxmczIwXGxhbmcxMDMzXGhpY 4mhNjLjZZVugLtkTIovf0LoYJ YxXGNmMlxmczIwXHBhciBJIGh duxEpeMSld56xNIsojAJjALDq QXchUAHmhDlqm7VbC2owJP8kS 4CvzAMxtaRphkBdZOzxMLPer9 l9fPHpkVamv8TjxJAmRH00rmH zYPBvWUC9THXpl5iwNL92qawr ZnTblJ16maInqsAeYQFxr7xeN 9enzHVep3Pit3KjaaRxWMbsb8 MsYH9vaPDdnfrjhJR2AUPjkEY mdbNklhR3gNtcHUAtmL0cpT8a dUhfsA2bFjRpVnEdVQneAN7bB ALpO0bslJBgFLKwSGPuJ9vhVl HipV1mzHwlKktdovM6JDWrkb0 9 Clinical Information Chris Joseph is a (test code = 61 year old female [id number]) Gastrointestinal hemorrhage, unspecified gastrointestinal hemorrhage type [K92.2]: 1. Antral erythermia biopsy, eval for H. Pylori and interstinal metaplasia Gross Description e8mbmCAfFPMosCXBBAItRWSoG (test code = K4vjYowpNq4aGeeXRJrvyH1sC [id number]) FdQTypu6czYFR0p7oquiRNIdm cXZJtSBrpICIjpafqDgQ9KMlc PVSgnjutDYz4XIjwQFTtuCS4E OEjoGPoB8XcWBLdTM9wwss2TQ B2CRmeJNSvElS1YQWqTlCtOfq lHWk8VUVljcI3Fnt9YBPwNEHo yVNcu2C8ZMrvxvhgPGKhqZCiJ 167RZklk5PizAHrFFnvwOWsZP RMDibvTefhmJcjt6UrdGCtXBx eOYZhUOQzNUhaampkIGt6GQAq APhkhACzJY6lcByfTlhmqWoyz 2VjdCBcXGlkIDUxMDAyIFxcZG DyIR8DRvTkFJLzNLw8IOwzMUu 1TQk8KP3OCgNyNWPwKFjyVIk1 XbGwEMe3FGyrCL5OZOL4SXT6A aF5IVApVBDbEZSuEIi4PZDzWZ xmIEFyaWFsIFxcZnMgMTAgXFx hiROvPV7thPubtPCuxvfvzuYs OBYPITZLEFJFYPYpxNTlPP4RM KWbHKojPHSpgNKCJWH8AP6bDW ANClxsdHJwYXJcbGluMFxyaW4 mTN1MDPn7fuPdNPXcCmOjJ4Lc T3wfBM2uEEFdpfEcTCMynDHyR KYpsmDrh3VzRKidwjUaHQZfdL VkIHdpdGggdGhlIHBhdGllbnQ quxMxCG8nWEDEYRCcrZ9mBXOf DuY9s61yH4yvZUCkvGIvjTNvc mp5jQOyWPRxpR5bv4okUDV6SA kdGw0hFMwfDJB3yL0akMAibaO kpI18LWF1aM6ugOPtLAHdxIes h8ujBtYhbxWfW35lv5ivjSSoj 1OcMzS2CU3yhUpfzkEjlzHoI7 KyISUhe73jfYQ2jNFnkSBwCqL eK96wqyJlVUmmNE5ukQ1aOXDg h31aFC6wIXDxIWGbUYObfOAou dNzewPiyPStjKYqeZ7padMuv5 7vXYQfVIO0NIAhVOF1DVCdTJS gnOXjoxZyR1pvBExcdFZtLzCU wSAzk2NrZ9bkML7jfEDdNxsax CBoLFCmwLlpv6GfxBMdQVSwn6 JcvLRlDQxaZY2jPEE5Vn3baXX wHXCrzhF7e9GxWLjlLTAgHyad KJYmBAzllAMgUN0AQKUeeRMAK Rjrd9VfRPrrAGDwOGQYQ0SpMG nnIIQtS50xa1YUl0YxRXXqy5u fvVuzv7UgqMMaZLzoCPYmaNDc ZFnhaY4iKeTaa4jytLi9AAoej zE0QAIcpq7qnCgpuH7yAUtkb1 nqEJU7ODNabLEikFAwRNfuqFq cgN9mOgSnIhp1HCosDVIbK0Ln B7DxcoK4AVQcTPwhWNAjCUOqT Qp9 Disclaimer (test w6albUKoOANng5feVTWoiBGbY code = [id number]) zEwMzNcZnRuYmpcdWMxIHtccn XdLIthv4AuM1NmDuWlXGuthxG oKQRlXgbcsxliGEEsXZN0awSs PLLfWVziUZSyRPtlDf5mrPMpg MauUiNhWVPtg6gihtIWYBgpIh EeF225TIUsDYmzv0hba9RrPJD rtEEhu7X3PFAVtkpzqIn6eQvu K15er6G4JvapH6amYWVxNPNdC 9GnVU7kVDIqKbx6FYI6FJM8BI FuFXGjA3RuSB9bZTJluWCsBJg 0h9hlxXbfZLAvNBH3j9zcFIus yeYqWR9lqx0koQn3y4rusuCeN RHdQQLoqLFGJMWvF4KgmRhqNb 3jvVp3tNonGqlzXAS4Jgk6LX6 hxf43zuo7mWfvCWRemcngGeB6 YSaoOPWvveynCPj2SUhqUPJuy OV4INDuoNDjF9GeNMWtRL7eyv h1GMI6LJwjDXTxFiX0WNNdqAS bTZKezRznCIicw687KFQ8OsOj QO2gN6Urj4J4xI6gvLQqMEOow SZeVjIyIMQlxr7dzQHdCIbfp7 EyTCF6dlX4oBEnnZRdIAUcGL9 9Hfuft1CdOpzci1FqI76hkMX6 DHyky8uaQF3eXiU8ezWaIXkee 9twaI0yIdL6DBupMQ9aYS9aYS AakD0emekhDUFvYhIohsfjCHA ycAsvaeEgVu0taPqrCMI3RDuo Z8yivP0tUbT9FHuaL5dybK4vN Kv8QWaksWQ3GROwxC5aKV9pjj ieh8cyFAtsSEcaTMMftaB3ptU 2WKMrzPAnD0YmtH2yXTRiQU8r qwuyl1wbXLN4MJtbXPFdYPP1A rSvBJGjr0Imjxi8IwUnw3MytC PvPFhpZ95lo719WTGwfhBbQ5h wbGFpblxwbGFpblxmMFxmczI0 ZEVupnSxk7NyGLBiPWH4HVxvY CgqzDUxWWChiPjah1xeU0GulW FyXHBsYWluXGYxXGZzMjBcbGF uZzEwMzNcaGljaFxmMVxkYmNo ZATcVFhoN1ahJrNxM7QaFOPhV uWhoOEoX1ahGDtthfVyMOMcix KhaCU7DTrzB6d7LOWxgzUjmHi 9yqQxPhJfXVVyZXM3ALaswWQm GFJxq5HgjshjlNYzWt9bxEWsW STiaL2gSVLhRNXyWRqoEM0jjB k4SCPKcUEjvKOzMyMNOVStVU1 2ovBeXKBAxgjkd8I5WFalDRKd k3RyfKPwD1iaf5YfKVCxz14oM O2ip7J1u3acPZT7HD0si6YlXD ZreZSasLGdOURdf7Bgurfjl6X eRFTvpmRfb0NnCYKycpIeoGJt UFEehvZked7tpxAzNOCwIAXlW 2EmrtqhqBewmdAzNYOdna5kqn UkQNG3PCFJLYRjOSNaq4HsuZ2 kdNWARJP7lIVoew3gzqCVtXGy PONbno23BZRkOT4aH1xsXLRvV KVkpkKkiJAog1DrKTMglZI6tX NgZF9AUtTMr13sRQOsSOWSctW dPYQdtIbdoAK4wlF4kY1wGMeE REEpLlx+ARWjWJDFJHUoUW9jl tWpu3RpnfZsyWppIXBtjZAre9 IzaUUag0RzuLnef2FjgIUyxYM jUP5qWCAxbofaUXZgXWZUImZS GQRizwN0j3CkQLBeEZSmIIM1b Wbokeg5TCYonY8nJXWcZ8jntl ngHQerWGOge2IqbE5upAEGoLB jb4JrkOOfxRFIoAUdBQ5emwGf DYoWOCdCYMX9apQaONEgv8ItS MveB4kxS72kiPcaaJw2bIA0MJ F5nC3aGpu+IFxwYXJccGFyIEF gfDLlpNDcWQHshQiavxAkA2Kx uhNmxU8yxYFhvvPrQW9hPW5eU 6N5xJGuPPVamwDtx0dnHPeurn IaItHcciTlIXKrOOgnGNJfa6I eWEoiVYZ3ZXksytCgunBqyCYa qxvjRGXNXFGVyCUojMKzUOX4V NptpmZmkgFcGD5qhS9dxOqmsM 2loTCcaOQ5nilfUZIjCTRonIj tYCGyHV5qxTXiLOVnqmFQfGdk iFYgvS3rA6XgBAIuMGCavd7bF GQnaG4zQCkek8QwuzeyJYBfMR SgLPJykvRvhe6cLNOofAMUMZ5 HFCsikNZxe8QuanNeJ7wKAXD6 NUQwNjYwMjgxKSBleGNlcHQgY HDepq34DCMfxN9loObbDYUmxJ 1odL7tlHzpmC5cZoDgUrVfIAy sXV2sWHJqQ8zdnQQcCTWxBVDt R6fbVnJtjW4miHoqRWjwSlYsG bSlWWjdXYS7uM== Embedded Images (test code = [id number]) [facility] [id number] 16:43:01 Test Item Value Reference Range Interpretation Comments Case Report (test Surgical Pathology ? ? ? code = [id number]) ?Case: [id number] ? Authorizing Provider: ?Earnest Nunez MD ? ? ?Collected: ? 03/23/2022 0936 ?Ordering Location: ? ? GI Endoscopy OR Department Received: ?03/23/2022 1143 ?Pathologist: ? Luisana Willard MD PHD ?Specimen: ? ?STOMACH, 1. Antral erythermia biopsy, eval for H. Pylori and intestinal metaplasia ? Final Diagnosis i4cshPBuNNCqb9fmLPNghLOnB (test code = zEwMzNcZnRuYmpcdWMxIHtccn [id number]) PgBAockPesERBoSKQsPG0ewDj xbDs6iTqxTSLdvtE2yHHoIAuw x9izJQP7n8drzafxUCTgMRxqJ i9zoRZqsKlfYxFaHSBnFXg4oF 61TTVigC2uwIHhSOa4SPQnhIN jcqKvEfMwGJWlcVZrjEW3DUDx MK2wiozzMPjaQLddFZDfepA1O BYziSCnT6ByNWEyWB1emkrxAD J6JIwqNWQwZOX7LnPqLACvy6M jskj5NbTshHDmBOuibBDqucmb hzTxCVVukfDGRfASWB0YKFCHK BZGQR7UR7eirVYcZEBsRT4sN9 JNKSRHFxHBVRQQM0OoQ9vJLZA PVILFXHqENGWYVFKVRe7LWMYF WVxwYXIgICAgLSBOTyBJTlRFU 2UKQzMEGV2EQQBVWIFRBWZaK1 RwWKsVDWfUE7rARSwYJH2WZME APKVhwPSeXCYhOS7cWb1iJU4o VAsGL0OSKQbNX3SyW0DTXK9WE 86MIMuBYG9IKUNKZJHbkGNeIV AzdiLsjEOqGQtfkOdiCFpmp55 rcywgTUQgIDgvMTkvMjAyMiAg TKO2HoRrWK6rjIEbRZDdmgAnm JBekZrdbqNuBHbnf4MyQ4BvDx AwMFxhbnNpXGRlZmxhbmcxMDM vDIX7gdBoNYSsVNqmCMPoNOvr Gm7fwRFmnDzdQjLgFQKsr2tad dCCTRmaCbOlP359TAAfDUjww2 jag5BuOJOkuEMhj8S5HLWQkrc tpOz2f8usYqWoAtL7yXHqVXqf X1uiymJpjFLkM1RncYKvyIc8j SpaD13ko4P7PgtwJ2jsAPSlHR UaF4WsSE6rZQFqYpl9GUX2OWT 3QMDuOERlG1KmNL6jYSIdtOFg BZo3d2rnsQtuXQEqNZU2a6ptH TffamO2AB3rqu6hcOf8l7rbcx JsOGIjALOvfIWZILIoG2PbnDv kQa6trPk4wDgwLnseVTY4Wec1 VL6xuz41xrm5nQakUNVqhwxyS uQ3ELppCCVczsomVKd8ZNbePJ BjuUN0GYZmtUNfS0QpBWCbIJ1 psac1AWC2PWjrOZOmJuT4XLMp qGHoVZVznIemBMtdq269DEW1N qNxYJ5qV2Bkn1S1xQ2riSCuCW TknYSzBuCrFFLcgs8ojUCkYNv bx5RiWFW6oyD7sLNjlVHsGSZh RB34Ehhzw1HuIasiHFA6ELWhq yWti0Vzt8jhGgXkpdOpZ2opQ0 SaWFZmLRLvRMQlMaHirwQfe7V po3CgrMZdnGq6g6rrUQMrLGHf gBnig7ksAZJ3NUHgJ0F9hSRja 3zfUKorYCOqmQH0axD9JMGpyP OeK3WejW0sOCEwKS1lgzc6q2w qVBN4FRtyCPYbSsR1thE6YNGn sARbVZSxuAmvXUaul642BYG2L tRjHZOuq2HvH9PkrOheE45rqM gqL80iGZSabDlajE3vsZmdrR2 cZjBcZnMyNFxxbFxwbGFpblxm MVxmczIwXGxhbmcxMDMzXGhpY 6gfWqYrRQAqzTjhIJdup8CsUS YxXGNmMlxmczIwXHBhciBJIGh drgWcfQYeg97qRFzftURkTZHm DPykGNVomIohz2JcC7ciOA1jR 3TntSWkuxHicnRgBGllMGRjs5 h7zEKxmYjsv1ObvDRwZA81ujX fQESsFME0YGBkk3onNF85subb CqWknU19osUlivJyAPNhn6ntO 6idiGJyq3Rjs0TrslIeJBhga9 TrCY8oiAMzbivvtCV3PBNckEI bbxTwwuQ3uYyyDVIspY4ueR8l oWeruF5wJkOqNbQdBWtvHE4uA TNmF0cphCGyTVAqSLYjS3lmOt RjxI7pxEarSbhncrR5RIPtsq3 9 Clinical Information Chris Joseph is a (test code = 61 year old female [id number]) Gastrointestinal hemorrhage, unspecified gastrointestinal hemorrhage type [K92.2]: 1. Antral erythermia biopsy, eval for H. Pylori and interstinal metaplasia Gross Description o9ezqRLoLYImkSFLOENyFPSmV (test code = S7vwQkwtCp8bRawXJGeuiR2fN [id number]) MgBNlwk1jfNSF0s5ykekWUMhe kAGFqQOpqBCJlafgsNvZ8JUhf LQXwikwsWAa9FItcCRGadAR4B KBllDPyL1QiIUPyOH5tnnh7NS J5LDwkXIUqQqA0SGVlQpKwLkr uGOw5TKTozeV1Xqi1RKAdBBFr mETpl2E7SFrzjvlbILYmcGZaM 755EFgpd5MueWScZFhiaPOrEN ALHbgzXqcjcNhnt6ZzxYTlGLb cZBArFOXcVWyrgztkEGx7AHRa NJhjzLDcUO5wvGhrBdqpuGhmv 2VjdCBcXGlkIDUxMDAyIFxcZG TeLK6HLxQlGCDeRXe2ORczFUk 4PZg1LL7CDgAlULCfKSjsZYa8 CeJfUCy8ZMgwVO3PQMT6HQR5K kR9SCPdDBFeLGHmEXq2OTIaBX xmIEFyaWFsIFxcZnMgMTAgXFx bvHYxGF7trIkcmQZqqkcmdlUn TIWZYGFVGABTRVMubGLxJH4SA CWqNCpnBGRuvAZKAZU0HO5wLE ANClxsdHJwYXJcbGluMFxyaW4 aUC5YPDz6ayUzTTSlUpItX8Um M0feTE9vDJEixeOpXMFadWOdW KSqotDnu8MiOIywdgCeMWZneF VkIHdpdGggdGhlIHBhdGllbnQ bnoUbTZ0sMXEBVFNfxG3mRZFs NzA2i77oG1zqNKVpcDFpzMKhg gy0dDYmSVOqmJ2pv1soMKA5GE ctXy2tQLdjCFW6qU3peBDeppI amL82UXG3cF3vvIBaTOKivAxf p4fyPaBkpmWtW83jm4nliIMuh 4JhNdC7QI7auLscdyWndsZuY5 XhSWHij34lwVJ7nWOkbNFzZnU jO89akwOtFXdqZY7ysE3oUSOc d69lPP2cZLXkUMJvUUHmfXOvk kGdaaYzgCAynJKggC5akhDqh1 8wYLKnLOL2EHRkCTN9JKDqFNG ffDEsnsKsH3yoFHiywHKiQaOV sUNwd1JoD8dnDC6pgTZaVvbwp DGuUHBilVfiy3ApjLYdHRKog0 MqbSJxOGmlYE5mARD7Kq4zeNJ xLYFojdW2r0ZyEJkrENXdCpkc KUGlQDnfyNFhDC8NFWSwiWXXH Vnxy8CyWCebXRJiZNDLE2FfDI lsOXSoD87di8XQa4GiCVPdn2y dbFgmg8XyyHNwDMahOWKxwIDh CKapuC2uMwAvb8cpbNz3IXvil bI4IGDjic0osErgjM8nEDibu3 myRTV3FMRyvUWooXCsAPkrdEu hbC6aVdQoZqt5UAnlBYYdH7Zy K2CtcvJ8RBXgMVtcICYoNFKkY Qp9 Disclaimer (test m9acpWVsKBQjm2ttNZOauZMnL code = [id number]) zEwMzNcZnRuYmpcdWMxIHtccn MvILsll5OaX7IyZoSzIJnpzyK eRMLuNlmobyxqIHZqGJS1csJk UUPiDQmmGHBeTWmnLs9idKGsv WniJkFhERZdr6jjqfRMFFdhCw QcA505DCTcVAlsq7ati4GmZON jjMToz0O5RITZvmbvzGp1vKvj S92xt7V9UncdI0tcQNOsXQNwG 4HtDJ6cYSNgLkg2LDH5SSM0PT ThHYDeL4HpLU9yTANyfJOlIEz 7z0wapBdpVVNzQIP4u6jvHWug hsBsGN4aoj3kySd8k6rrohVsR DJeHXZpqUVGXFVqQ9RakQbjMq 9luAw9eJdwVbytAMZ6Bcb6LV4 vtb51exk7jPjbAKUgzkujGfS2 DNzxGJDltnhfGIh2NLlpVNGuf CS0EUVpiEKuX1TwYLJpUB0zyl u0LPR2FZodKNSpQkF4RQYlnET eEXOntKydAYdjo565SCQ1HcKx KS0eS6Hxb9A8tC1npTScMCBiy HKpNsQwCNXtoz8alUOzVVeqv9 BzQAR1gmT5oBDvqXEvBIByXB6 8Vrvyu6FoRihdf2KjS03uwFG0 AKdzs7vcFF9lEiG4ckYvLSftp 1zngN7jMsV5XTyeLC5sZF3lQY MbrC9veadtYYQxFkRjvgnlMON adYokeuIwNh9rnYvhQGQ6YQza B6qpaB6tOaK6GXcpE0eyeK2cM Bu8WOyboDV3DMTjrR8jNG6ldz shu1iyFBczGGjrNWPwonK1zcN 2TMUxpSXgX2StdM4dXJAdKC7a olrrr6cdPRY3VWszTLLrRGK6Q wGmDCDpr9Tabel4RjLba4MebE OuFTkuD88tv115ALVoukMuP0a wbGFpblxwbGFpblxmMFxmczI0 CDForbZcp6XfOJUhTXS3AUxnE OukhSXkYFJkkOuxx1dzO2RfzM FyXHBsYWluXGYxXGZzMjBcbGF uZzEwMzNcaGljaFxmMVxkYmNo IBWoTWpmC1fjGoYdA2BxEQLxM pPxhITfP6arXNtlqqZuDEHykn KvtTU1VWdbS4s9YMKgljHbxHa 4zmWeBrOhQDCzPJW0ROnswOVm ACThx6EixybbdRXzUx8qjBYyL AXwuG1oYRZsMJWfNHdgVD6vlL m5PQBOmNWkcWSjMwMEHQBiVS6 0dzIdDARRnyfky2G7OKuuKWHp p8QknGAbK2jxp6OtRLWqo02wO E5ok2Z9e5zkCPQ8BR5sx9VuMC JukUMyfUAuUMJac3Oszzlzc2B rSVQsukWxn7AkOSOdoxKxsFGv EGUjbdIpsx4objRuUJBfSIIwV 2GtewftmLgmjsFqGMLkpp7qjl HlPLW2KCPBDBMcZZCgb0CohG4 mmRKMEDK3hQElrb9qkdOYhOWm XEAkrk03VJLcBL7fK2snHLBhG QAimbHdxRKfr4GeDEIytVL1rZ JgPD0CIaCDd84vYUYnTCAByoC fUFRdaXvztOT1jgC2zH2rMWjU REEpLlx+ARVdTDOYEORwOT0nh tYum8QsgfLkpWhrTOMwkUOga5 MllTKzf7JxrGyco1DjjQQqqZN eDI8jZMEyepgySTHiMWDLQuSI YRQeiuQ1j2NySCYnCABhXZR7l Vmxgmb7CKMdvI4iSERzQ2mejb sdMWftLVWya4XzxJ7sxPUTvMO nn6XvbEPziKNGqWIqLY6cpwBu UDaXPWdFADL0joYkSKFsv2NiF QyhF3geB21acUaujKx4wBO9HT M2vV8qCzn+IFxwYXJccGFyIEF uyEXicEYiAKAspKmzzuKjP1Gt rbCgvX4asIIzusJsCQ4rLU9eQ 9D1uEAoFEJpcpHlr5cgAVwylv ThOoGuqfEwTTJlTSouZNIbd9U nAOurQBE2LTqhwoAevaVadKYr njkeUOARRYPBeXBzdBVjPFV4G BgenaVfrdUvAM4udK7qtLadcL 5bkPHsaOI6jbtxKCMjPBKuzYt gCLCmHK1uvNBwZIRckaGOvCoj wZMpuV2qR8DmHIHgERGguz3sK AFcjA5pAElcb5MawgevMDEqVD VvUCOhziIfyp9hKWSlzCZVKN7 JRSqdiAOwf8AxjyLbU5aMSIJ4 NUQwNjYwMjgxKSBleGNlcHQgY QHemc55MUDuaY2weEecUKVwiU 0qwK6onDodtF4aOrJdTjJpTKn rTQ0jYCNqR6cvwMCwNJGvTZAw F6hkYcTqrS9yqHphRIceQaUsV xLfXQkpXRT3xJ== Embedded Images (test code = 7951491301) [facility] [id number] 16:43:01 Test Item Value Reference Range Interpretation Comments Case Report (test Surgical Pathology ? ? ? code = 7855351851) ?Case: [id number] ? Authorizing Provider: ?Earnest Nunez MD ? ? ?Collected: ? 03/23/2022 0936 ?Ordering Location: ? ? GI Endoscopy OR Department Received: ?03/23/2022 1143 ?Pathologist: ? Luisana Willard MD PHD ?Specimen: ? ?STOMACH, 1. Antral erythermia biopsy, eval for H. Pylori and intestinal metaplasia ? Final Diagnosis i4uqiJNvWQPua6poQRHplYFvP (test code = zEwMzNcZnRuYmpcdWMxIHtccn [id number]) CmHWzqbRtsONTyEKJuQX4jpLl qvRk1jDmoPNJhzvK2nYNpVRiy j8ziWMP2m1uypprcJHIhTZjxR w7xdYZbkXnbQbJwDAErGCk6tK 93TOAnrG4kaSYeICx6DDDzjPP czrMaLeRhPIBlqMWylZC3LNNj NJ3lqoyxOEteMBsmJVLuntN8A AVilPFoM5KcXUYsWT2qzldjOZ G5SSgiGHNfUBT9BfMsYPFbh2M pocf3TiYwfWQoHOwvyKUbrttu doFnLAMoxoDHPbEFYG0KEXBJU LRNZF0BW8utfJBpURFbCI7qO9 BICDXZYpKSXBULS4FpD0tGPJD GQBSBFXfMHOVKZXTZYo0IOMTV WVxwYXIgICAgLSBOTyBJTlRFU 8XEKpUNLF7YJBCRQSPWBRUwT1 FhCSvECGgYC0wGSHwKHN3NLHU FQHKorWDqGTMsJF8xSf6lHD5d ZHfTC7AYTUxFO1GnH1IQQI0IH 97ACXdTLC1OEFAIZEPkfYAfZH XnqbMkeHIaUBxpxUdeHUtjc00 rcywgTUQgIDgvMTkvMjAyMiAg QLN0WcLnGR3bhYWnWPSpxnSau EClhHderxPyOMsap2OoF1RvLt AwMFxhbnNpXGRlZmxhbmcxMDM wYAA4sqTkRYTfFKniMKJzOGpc Fs9ewZUtwUovEqLxDIMsd4acx cQCJMlfYqRwY101LNOuKHjok1 asj9XlJRDjxPSsy6M9AUNVqhh kbZm4u2grWuWwUvN2sHSkBRea G7bpvcMtkKHwX8GhdOXzkPi7f YfmE21dg2A4HpxhC8blMPGlIV HbS1WpKU4aEKDaBxl1MMK3STI 4PGVnZJChO4XsMS7aPZPggBFy CKm5p5vhqAavTBCaDNC3x6vvU NsfglT6OY0ztu6pzOy9t6jduk EoBSJrPDTceWSASJFtK6NkzVk iIr8zgLl1fSqmRyavILF0Gyh9 NN5icq06bpg4lYruALTavzsdC uR7DAwaBIBfgtlhHKj2EFskGP CsdFV7UAHqaDLzV6UuXJYsRL7 bpzw1QXW0XItjDYBnJyM8JPHp kYSaBIDxrFhwBQvvh592HGV2V dFnOD3sQ3Aqf4N4pO1hkVJbME IicTYgHzDtKPTeye0qoQMhFWf fk1XeXAT9uxQ5jSTatPRjSPGk YW88Bdcyr4VbHyezSEG2SSFof vHpb8Gyp7osYwBxprKgT9klL4 PqAEZvYKTkGRJwWtIellZrj6L ow1TquNWidHr8w9guVEBmDFGa lVbeu0rnWUC5LFVeM1S9aIJqd 2huGUfeUVOamZJ0taC7PNJtfA PhT7EbeU8hAVYxKO1bomp8n5e nPKX5TUttAJKlZtQ7ukR3VOBj cSRlQXRpxFkfNDsgx134AFN0G iOaCURih8NyE3TfmKfsN73opF gpS83kOJMhjSvuqA4tdUhdoO7 cZjBcZnMyNFxxbFxwbGFpblxm MVxmczIwXGxhbmcxMDMzXGhpY 3qyDdYxAUNcbZwaILgyo7AnTY YxXGNmMlxmczIwXHBhciBJIGh sbeGpvDCkq44aSGzcbLQhZKZo UBocPFSrzDvzr8SoQ7dtNH1eK 5DfwBJwpgXtrxDnHUqrMSStp6 f4xVZsgOydh1QhoJBzOP72obO dBYKsGIE9THOip1ucMI23xllc YhKjvH33yuBcqvWlHXYjm8hyQ 0fwdSKjp5Hml9SccdDlUSolz1 AfBX4fwPXbrvtesRD0OGAbsAE xkgNcfuD7xTmcPEEvbG6edZ7c gBfhvL4yQiUdNhNuXRomSL0sC ZGjG7cwiRGlWLQxIGXwM1orGz IydX8hzBbpQzvlanU3JGWvww2 9 Clinical Information Chris Joseph is a (test code = 61 year old female [id number]) Gastrointestinal hemorrhage, unspecified gastrointestinal hemorrhage type [K92.2]: 1. Antral erythermia biopsy, eval for H. Pylori and interstinal metaplasia Gross Description h6xauRQfKDZfdFHFIYIcXKSvA (test code = T0aaKxrpOz2kUvxUAXjjxS4bI [id number]) RuXFjoz5ioCUW2s8vjmmJAGmm iHWJeNBbaENUmdkvnGiS6XFjb UVQcffmoVSz0EOqpNPCtyTG1H VLvwQLyA3PsLRVjDL6mzpp1XR S7ZVccCJRwPpI5CFDzHzDgAkh iXSa8TJOfwzF7Nro5FOQpLHLh xDJyk3E5MUhvcncwLBSrfVSsW 988ESfwk1OqlYPoHNqvbMTqFS JPWhhpBnwkmEjpf3XaaTGeRTl bMMHyGJDbMHonmlqtKOb8UZRl NLwhwFCaYU2xyEcgVkyrwImlp 2VjdCBcXGlkIDUxMDAyIFxcZG PhHY5NUkNfMXBfLUi9XLjgNAg 2ZRp7JS9TXyGpBBVdGFhnTZd6 PzWnXCq7BXdaPG4AJAD3FOY1X oN1ZJAuYYEdNZHqNUy4MRKpFA xmIEFyaWFsIFxcZnMgMTAgXFx kmHYgIO3imBsisBLhrjeibdVa YBGCREIHAABUMJRzaLJoNE0XD EByHDveASCcsOGFHBE9WC4iGO ANClxsdHJwYXJcbGluMFxyaW4 aTC1AUPv4doOnUJKmUdEtN6Cp P8lqDX1rUHSdcxBjQZGvcSTaY OTirmIoz2ZdAVbojkSnBQUmeC VkIHdpdGggdGhlIHBhdGllbnQ bmvBxBS6jDKPLBPDapU6aRZXv HqL5i68uH0coVORihMPssKAzz fc1gIJzROOqxV7nx6vbNTU1ZQ rrBb4tJCroLAF9tD2deZTjllX goM94DEW8iZ6yqNVzVCFobQok u0ahGcRhhhCpC68gn5pkeGCss 1NiZuL6ZP6eiLqjpcAzwyTcF9 DjWRJie04doPO9fSUddPYtOeP pH57pliTiQFamMS4biC1iHIVr p02lMS2dRPRiYMUjMLMdtFMdb dJotsQzdVNziNToyF7uhiVcc2 3zOGFjYNY2FMFgGRA7IZFkSTI drDNqxiEyO9frTXqmfBCgIuFG zRXlk9XeB4ywQF9zvBDnIdpkc LAmXUBtwGtba1NhqMHdZHAmw0 BkaWPeQSkdDW8pZIE3Fw5mjZA kNLYmgfS0g1PkBXrjETOeVccw SCYwVCrmdWDmTQ9CJBMeoCPER Fwgj3OoOOzdOAMyMUJIP3NpHF keVAHrQ73uj3KMi1SaOSEnc9w uwRbld9WibIEfOXlqUILmbZGx RPvxuO3iCdJgg0wwdJq7YMbyh yF9MIBdxk7jjPdzdL2pUUmtr4 hlVDT6AGWfiFPkvJCwNHsjgAs prM3uQbBqRre6TSszVCGzF9Uf B4UajwV8GAEzBQjbSKYuLNXcH Qp9 Disclaimer (test n8pkkUXrNSTge9oqZTQuiNMnV code = [id number]) zEwMzNcZnRuYmpcdWMxIHtccn NsKDuzp5JkV6KaQgGbQNbettB rLMYmIgmlfagsGXYnBFC0seRb QOOmDCleVYVqBXipVv5owONde AbrSfYkJAGvi2pentJKPSajGf UuI077BNGqYVisi5vau6PbPSN dzPInk4H4HRDBdtzqnZg7rCym Y77ug4O4ZfiqA9kaBYGuAJGlM 8ZcLZ5oRRAaLmr6KWB6ZAD0AE VkVBBiA4SjDE5wTDWccGWnDPp 8u0dugRvdNPQiEUL9c1hvPXkj prFgWA7xyv2djQm3k3zbpaBmU LYbCQQlhRUHBZDrU3IvwHqkSs 0tsHn6oUqgVhlrTPC9Laq6YN8 vtm82yrv7vHopUOSrgsvtZjW2 VHeuNQOqeziaEUf5TPhaXGIoj ZH7TGUxfNFtW3LaHKWxDQ9mfp a3VRJ4RXycWIVvDwK9WDZpoDA sKTYjjBdxVMzkl499HCP2MiXe KS3uJ1Mec7A1oU1vtAYcEIDwc LWxVrRnLRTbbh6asHOvKTech0 VtYKS0ohK3kHLtsKOrPYHkME8 2Iihgu2NoMbimb5HsO70pdGF8 ZHefx4tiMS4fIrA7kqSpFEtiz 0ekjJ6vRpR3OYiqJD2wUO1yXS DfmN9onukxMXUaVtJxrsfsWXC zdBfgjoTjDf5atGrzAMB3YTmv H3tvtR2tUhY5PScvJ5ryoI0wP Cu8EXyxcWS8QPDuyQ5qVI1wls pge5imMUshEDnkKZCygoK1hmP 7QJRlmGEdC7ZmdA8kJFRcAE9e nszmq7hlFEG7JOgiQCRzSHO7L nKeMXOhw7Wvuvd8NaUnx9OdkR GmVCcqI33ds938YNDqyhYsD4p wbGFpblxwbGFpblxmMFxmczI0 KJFfspPmd3SgASOpXZZ3JHknC HhdyAFwUBKswJxsy1rlS3AymT FyXHBsYWluXGYxXGZzMjBcbGF uZzEwMzNcaGljaFxmMVxkYmNo OFOwSHhdP0haDcXmB7EgQXGfB kSkiFNcU0ewSNvswvFhNLDphz HptQS0BHxeN5x2KXNkygSdaOr 4yyWeMuZkDCEfQYA5HMthsWUi MZVxj1XojbkclCBdSv6liMSbU TJufD3pANCyHCAhQKtdYB6fqF w6MCKLiHDhxZJxEsSJOUYcGL3 6ijQzIGBYjeaef2W0DGchVUCh e7HwuIYcJ5dvj4PtYHLyr66uP G6bp2R2m6yeDYX7AY8cz0YgHA AuhEFdwLSyEDNat8Xqnvvcy7V hHQMiexWin1PzDWHlpzGffBOd UQCzzwGdlo5duxKlDWCkJCScX 1SovamziQtsisQsEDXgno2kvh OhKQB0RGFALSPsENUzz3DdyW6 dsTKZIOE4oYLckw1lboMSuRUk PQMppe87IRBcFV3lR4qwYMJiU XSkprAozTFdt7TmGFZvlBQ9hT YtME7UQzKTq30sIIXxORKDnxH sLAUyiUfkpIQ1kjI2bB7bMWhM REEpLlx+IILyUEEUKJMvTL8uk qVro8IpyhZsbPhjAZMlxFQwa4 PshYTge4PbhRefs1OoqSMlqTQ bSE2yDUGtjcovHYUxJXOODhQR EFQdvfJ2b7CuOKZbPUPaUDG8f Inydog5CIBiwI3sJEUiD8jzbj vrFDqfOGNfk2SseO9sqXXUkSF ug3KvnHQsoMDMnAMmMI2pyuMv HCwQSKvKKUN7jyFnXSUbz7ZtX LelA2khW09haTpyvGe3aGG0ZK W0vH7yLdt+IFxwYXJccGFyIEF lmCNgkRMcXAHhdDlfiyIoN0Wc ycNlxN4owEYgbmPeVQ5xIZ6cK 8G4rXFqJNPgizPdz6arKNitbs OlUeZmueWeLUSuOYvgUBMqy9R lVGqzVZF6VGixccSmuuYobNDj tpzuDCQZAAGJtEUlaXIdIQR1M FrqtcVltdWbIL2ctY2siXaseS 1rrPLghMQ4rzqzHSDoLFByjAd uMLYaBA2jbEVgFMIbotUAdDmd fGRptJ3mS4BjXCCqJNIrfl1gK HYhsP9pWKwhr3QgitswHXFyFW TxZEVptwZpeb9sUSHsqYYBEM7 LVWmgdVFhl1RbbvTaF4sPYME4 NUQwNjYwMjgxKSBleGNlcHQgY ZAfae46VQTqjU2uvEzlYUUjfU 3spQ8yhPaieE4dFfDvGhAkVXx sZW3xEEKxK4tyzSIaUJXpSNOf O3jjGqZgkY0rhHyxVLabPwZoZ kAvXEvoFWT2nP== Embedded Images (test code = [id number]) [facility] GLUCOSE (AUTOMATED)2022-03-24 13:31:30 Test Item Value Reference Range Interpretation Comments POCT GLU (test code = [id number]) 102 mg/dL 70-110 Lab Interpretation (test code = Normal 89589-9) [facility] GLUCOSE (AUTOMATED)2022-03-24 13:31:30 Test Item Value Reference Range Interpretation Comments POCT GLU (test code = 3476240851) 102 mg/dL 70-110 Lab Interpretation (test code = Normal 25184-0) [facility] 13:31:30 Test Item Value Reference Range Interpretation Comments POCT GLU (test code = [id number]) 102 mg/dL 70-110 Lab Interpretation (test code = Normal 56222-6) [facility] 04:05:12 Test Item Value Reference Range Interpretation Comments POCT GLU (test code = 8551082845) 89 mg/dL 70-110 Lab Interpretation (test code = Normal 36517-2) [facility] GLUCOSE (AUTOMATED)2022-03-24 04:05:12 Test Item Value Reference Range Interpretation Comments POCT GLU (test code = 3383844752) 89 mg/dL 70-110 Lab Interpretation (test code = Normal 10463-3) [facility] GLUCOSE (AUTOMATED)2022-03-24 04:05:12 Test Item Value Reference Range Interpretation Comments POCT GLU (test code = 5616187837) 89 mg/dL 70-110 Lab Interpretation (test code = Normal 43717-5) [facility] GLUCOSE (AUTOMATED)2022-03-24 01:56:37 Test Item Value Reference Range Interpretation Comments POCT GLU (test code = 4696905785) 64 mg/dL 70-110 L Lab Interpretation (test code = Abnormal 76892-9) [facility] GLUCOSE (AUTOMATED)2022-03-24 01:56:37 Test Item Value Reference Range Interpretation Comments POCT GLU (test code = 1816596546) 64 mg/dL 70-110 L Lab Interpretation (test code = Abnormal 92682-8) [facility] GLUCOSE (AUTOMATED)2022-03-24 01:56:37 Test Item Value Reference Range Interpretation Comments POCT GLU (test code = 1405479815) 64 mg/dL 70-110 L Lab Interpretation (test code = Abnormal 85839-2) [facility] GLUCOSE (AUTOMATED)2022-03-23 22:07:11 Test Item Value Reference Range Interpretation Comments POCT GLU (test code = 8162646965) 142 mg/dL 70-110 H Lab Interpretation (test code = Abnormal 97725-9) [facility] GLUCOSE (AUTOMATED)2022-03-23 22:07:11 Test Item Value Reference Range Interpretation Comments POCT GLU (test code = 1299263102) 142 mg/dL 70-110 H Lab Interpretation (test code = Abnormal 61119-9) [facility] 22:07:11 Test Item Value Reference Range Interpretation Comments POCT GLU (test code = 4611396930) 142 mg/dL 70-110 H Lab Interpretation (test code = Abnormal 76054-5) [facility] GLUCOSE (AUTOMATED)2022-03-23 12:57:32 Test Item Value Reference Range Interpretation Comments POCT GLU (test code = 4233085710) 97 mg/dL 70-110 Lab Interpretation (test code = Normal 31130-6) [facility] GLUCOSE (AUTOMATED)2022-03-23 12:57:32 Test Item Value Reference Range Interpretation Comments POCT GLU (test code = 4054686586) 97 mg/dL 70-110 Lab Interpretation (test code = Normal 11204-6) [facility] GLUCOSE (AUTOMATED)2022-03-23 12:57:32 Test Item Value Reference Range Interpretation Comments POCT GLU (test code = 6847933639) 97 mg/dL 70-110 Lab Interpretation (test code = Normal 58188-6) [facility] GLUCOSE (AUTOMATED)2022-03-23 02:07:44 Test Item Value Reference Range Interpretation Comments POCT GLU (test code = 8175130440) 164 mg/dL 70-110 H Lab Interpretation (test code = Abnormal 51704-5) [facility] GLUCOSE (AUTOMATED)2022-03-23 02:07:44 Test Item Value Reference Range Interpretation Comments POCT GLU (test code = 7476088639) 164 mg/dL 70-110 H Lab Interpretation (test code = Abnormal 22504-8) [facility] 02:07:44 Test Item Value Reference Range Interpretation Comments POCT GLU (test code = 0190575765) 164 mg/dL 70-110 H Lab Interpretation (test code = Abnormal 17704-8) [facility] GLUCOSE (AUTOMATED)2022-03-23 01:29:25 Test Item Value Reference Range Interpretation Comments POCT GLU (test code = 8171524127) 64 mg/dL 70-110 L Lab Interpretation (test code = Abnormal 31625-6) [facility] GLUCOSE (AUTOMATED)2022-03-23 01:29:25 Test Item Value Reference Range Interpretation Comments POCT GLU (test code = 4652211617) 64 mg/dL 70-110 L Lab Interpretation (test code = Abnormal 36710-3) [facility] GLUCOSE (AUTOMATED)2022-03-23 01:29:25 Test Item Value Reference Range Interpretation Comments POCT GLU (test code = 1654498196) 64 mg/dL 70-110 L Lab Interpretation (test code = Abnormal 72363-3) [facility] GLUCOSE (AUTOMATED)2022-03-22 22:10:52 Test Item Value Reference Range Interpretation Comments POCT GLU (test code = 2281695206) 263 mg/dL 70-110 H Lab Interpretation (test code = Abnormal 42789-8) [facility] GLUCOSE (AUTOMATED)2022-03-22 22:10:52 Test Item Value Reference Range Interpretation Comments POCT GLU (test code = 3171139131) 263 mg/dL 70-110 H Lab Interpretation (test code = Abnormal 85636-6) [facility] GLUCOSE (AUTOMATED)2022-03-22 22:10:52 Test Item Value Reference Range Interpretation Comments POCT GLU (test code = 5642255729) 263 mg/dL 70-110 H Lab Interpretation (test code = Abnormal 26889-8) [facility] and Screen - ONCE [id number] 21:13:40 Test Item Value Reference Range Interpretation Comments ABO & RH (test code A POSITIVE Performe d at [facility] = 20) Laboratory [facility] [address] [facility] [address] [address]Zgop Free: [phone] A No. [id number] IAT (test code = Negative Performed a t [facility] 1185) [facility] [address] [facility] [address] [address]Ovps Free: [phone] A No. [id number] [facility] and Screen - ONCE Pztvxpx1642-38-45 21:13:40 Test Item Value Reference Range Interpretation Comments ABO & RH (test code A POSITIVE Performe d at [facility] = 20) Laboratory [facility] Blood [facility]3 [address] [place] [address]Uyih Free: [phone] A No. [id number] IAT (test code = Negative Performed a t [facility] 1185) Laboratory [facility] Blood [address] [address]Kvqr Free: [phone] A No. [id number] [facility] [id number] 21:13:40 Test Item Value Reference Range Interpretation Comments ABO & RH (test code A POSITIVE Performe d at [facility] = 20) Laboratory [facility] Blood [address] [address]Alvg Free: [phone] A No. [id number] IAT (test code = Negative Performed a t [facility] 1185) Laboratory [facility] Blood [address] [address]Iler Free: [phone] A No. [id number] [facility] [id number] 15:23:00 Test Item Value Reference Range Interpretation Comments ATYPICAL pANCA (test <1:20 titer See_Comment The aty pical pANCA code = ANCACOM) pattern has been observed in asignificant percentage of p atients with ulcerative colitis,primary sclerosing chol angitis and autoimmune hepatitis. ASCA+/PANCA- Suggestive of C rohn's disease ASCA-/P ANCA+ Suggestive of Ulcerative colitisPerforme d At: BN [facility] [address] [place], [place] [id number] ra Kevin LEMUS Ph:[phone] [Automated mess age] The system [employer] generated this result transmitted ref erence range: [...] AB SACCHAROMYCES 44.7 Units 0.0-24.9 A Negative <20.0 CEREVIS IGG (test Equivocal 20.1 - 24.9 code = ASCAGG) Positive >or= 25.0 [id number] 11:15:00 Test Item Value Reference Range Interpretation Comments GLUBED (test 95 mg/dL 70-105 N Intravenous adm inistration of code = GLUBED) N-acetylcyste ine which resultsin blood concentrations >5 mg/dL will cause overestim ationof blood glucose results . Do not use during intraven ousinfusion of N'acetylcystein e. BASIC METABOLIC [id number] 08:19:00 Test Item Value Reference Range Interpretation [...] mg/dL 8.5-10.1 L = CA) CBC W/AUTO [id number] 08:10:00 Test Item Value Reference Range Interpretation [...] = BA#) 0.03 10 3/uL 0.0-0.1 N [id number] 06:06:00 Test Item Value Reference Range Interpretation Comments GLUBED (test 114 mg/dL 70-105 H Intravenous adm inistration code = GLUBED) of N-acetylcy steine which resultsin blood concentrations >5 mg/dL will cause overestim ationof blood glucose results . Do not use during intraven ousinfusion of N'acetylcyst eine. HGBA1C - GLYCOSYLATED [id number] 03:08:00 Test Item Value Reference Range Interpretation Comments GLYCOSYLATED HEMOGLOBIN 5.2 % 4.8-5.6 Pre diabetes: 5.7 - (HA1C) (test code = 6.4 Diab etes: >6.4 GLYHGB) Glycemic contro l for adults with jose betes: <7.0Performed A t: HD [facility] [address] [id number] zain Neely MD Ph:[phone] [id number] 23:20:00 Test Item Value Reference Range Interpretation Comments GLUBED (test 121 mg/dL 70-105 H Intravenous adm inistration code = GLUBED) of N-acetylcy steine which resultsin blood concentrations >5 mg/dL will cause overestim ationof blood glucose results . Do not use during intraven ousinfusion of N'acetylcyst eine. [id number] 16:38:00 Test Item Value Reference Range Interpretation Comments GLUBED (test 84 mg/dL 70-105 N Intravenous adm inistration of code = GLUBED) N-acetylcyste ine which resultsin blood concentrations >5 mg/dL will cause overestim ationof blood glucose results . Do not use during intraven ousinfusion of N'acetylcystein e. HGB [id number] 16:14:00 Test Item Value Reference Range Interpretation Comments HEMOGLOBIN (test code = HGB) 9.1 g/dL 12.0-16.0 L HEMATOCRIT (test code = HCT) 28.9 % 37.0-55.0 L - CT ABD PELVIS W/O [id number] 13:47:00 [facility] : 1960 Sex: FPatient Name: CHRIS JOSEPH Unit No: [id number] EXAMS: CPT CODE: [id number] CT ABD PELVIS W/O CONT 70415 EXAM: CT ABDOMEN AND PELVIS WITHOUT CONTRAST [...] absent Pancreas: Unremarkable. Spleen: Unremarkable. Adrenals: Unremarkable. Kidneys:There is no evidence of renal calculus. There is no evidence of hydronephrosis of either kidney. Bladder/Reproductive system: The bladder is collapsed with a Vieira catheter in place. Uterus is surgically absent. Gastrointestinal: No bowel obstruction or perienteric inflammation. The appendix is not visualized. Vascular: The aorta is grossly normal in appearance. Lymphatics: No enlarged lymph nodes byCT size criteria. Bones/Soft Tissues: No acute osseous findings. Osteophytosis is noted throughout the lumbar spine. No ventral hernias. Peritoneum/Other: No extraluminal air. No extraluminal fluid. IMPRESSION: Name: CHRIS JOSEPH [facility] Phys: [id number] - Monie Nash DIRECTOR OF [employer] [address] : 1960 Age: 61 Sex: [place] [id number] Loc: NC.6204 1 Exam Date: 10/16/2021 Status: ADM IN PH: FAX: PAGE 1 Signed Report (CONTINUED) Patient Name: CHRIS JOSEPH Unit No: [id number] EXAMS: CPT CODE: [id number] CT ABD PELVIS W/O CONT 87968 (Continued) No acute abdominal orpelvic abnormalities. at 1347 Reported and signed by: Justa Winston M.D. CC: Self Referred; Alejandra Ramirez MD;Monie Nash NP Technologist: Aura Pérez; Chey Blas CTDI: 20.53 DLP: 1225.6 Trscr Dt/Tm: 10/17/2021 (1347) by:Jose [email or web address] Electronic Signature Date/Time: 10/17/2021 (1347)Orig Print D/T: S: 10/17/2021 (1350) Name: CHRIS JOSEPH [facility] [place] Phys: [id number] [place] [address] [facility] : 1960 Age: 61 Sex: [place] [id number] Loc: NC.6204 1 Exam Date: 10/16/2021 Status: ADM IN PH: FAX: PAGE 2 Signed ReportFOLIC [id number] 08:59:00 Test Item Value Reference Range Interpretation Comments FOLIC ACID (test code = FOL) 35.90 ng/ml 3.10-17.50 H TSH REFLEX TO [id number] 08:59:00 Test Item Value Reference Range Interpretation Comments TSH REFLEX TO FT4 (test code = 3.36 mIU/mL 0.36-3.74 N TSHREFLEX) [id number] 08:59:00 Test Item Value Reference Range Interpretation Comments FERRITIN (test code = BURKE) 132 ng/mL 8-388 N COMPREHENSIVE METABOLIC [id number] 08:59:00 Test Item Value Reference Range Interpretation [...] data elements are mi ssing the Laboratory gdieon ot compute an jose j mation of [...] code = ALKP) FE W/TOTAL IRON BINDING [id number] 08:59:00 Test Item Value Reference Range Interpretation Comments IRON (test code = IRON) 124 ug/dL 50-175 N TOTAL IRON BINDING CAPACITY (test 307 ug/dL 260-445 N code = TIBC) IRON SATURATION (test code = FESAT) 40 % 11-46 N VITAMIN [id number] 08:59:00 Test Item Value Reference Range Interpretation Comments VITAMIN B12 (test code = VITB12) 352 pg/mL 254-1320 N PROTHROMBIN [id number] 08:20:00 Test Item Value Reference Range Interpretation [...] and/or recurren t systemicemboliz ation. CBC W/AUTO [id number] 08:11:00 Test Item Value Reference Range Interpretation [...] = BA#) 0.05 10 3/uL 0.0-0.1 N [id number] 07:33:00 Test Item Value Reference Range Interpretation Comments GLUBED (test 96 mg/dL 70-105 N Intravenous adm inistration of code = GLUBED) N-acetylcyste ine which resultsin blood concentrations >5 mg/dL will cause overestim ationof blood glucose results . Do not use during intraven ousinfusion of N'acetylcystein e. COVID 19 INHOUSE [id number] 04:58:00 Test Item Value Reference Range Interpretation Comments COVID 19 INHOUSE NEGATIVE Negative Negative re sults do not AG (test code = preclude 201 9-nCoV infection [id number]) andshould not b e used as the sole basis for treatment or otherpatient ma nagement decisions. Nega tive results must becombined with clinical observ ations, patient history , andepidemiologi gregg information. [id number] 04:23:00 Test Item Value Reference Range Interpretation Comments GLUBED (test 79 mg/dL 70-105 N Intravenous adm inistration of code = GLUBED) N-acetylcyste ine which resultsin blood concentrations >5 mg/dL will cause overestim ationof blood glucose results . Do not use during intraven ousinfusion of N'acetylcystein e. [id number] 20:25:00 Test Item Value Reference Range Interpretation Comments GLUBED (test 105 mg/dL 70-105 N Intravenous adm inistration code = GLUBED) of N-acetylcy steine which resultsin blood concentrations >5 mg/dL will cause overestim ationof blood glucose results . Do not use during intraven ousinfusion of N'acetylcyst eine. [id number] 18:16:00 Test Item Value Reference Range Interpretation [...] LDLC) 28 mg/dL 0-100 N BASIC METABOLIC [id number] 15:24:00 Test Item Value Reference Range Interpretation [...] mg/dL 8.5-10.1 L = CA) LIVER FUNCTION [id number] 15:24:00 Test Item Value Reference Range Interpretation [...] 45-117 N PHOSPHATASE (test code = ALKP) [id number] 15:24:00 Test Item Value Reference Range Interpretation Comments LIPASE (test code = LIP) 108 U/L 73-393 N PROTHROMBIN [id number] 15:18:00 Test Item Value Reference Range Interpretation [...] and/or recurren t systemicemboliz ation. CBC W/O [id number] 15:06:00 Test Item Value Reference Range Interpretation [...] Wrist Right 3 ViewWrist Right 3 View Notes Date/Time Note Provider Source 2023-03-08 Formatting of this note might be differe nt from the original. Blanka Chambers MA [facility] 15:02:30-00:00 Let laminating press operator know they can find someone in network with ins and we can fax orders Blanka Chambers MA 03/08/2023 3:03 PM 2023-03-08 Formatting of this note might be differe nt from the original. Allyson Curiel [facility] 12:12:39-00:00 public opinion survey taker Kamini is bryanna hart for patient. She is needing emg test. The facility told her the next available is June.She is wanting to know if she can go somewhere else for a sooner date? Electronically signed by Allyson Curiel at 12:15 PM CDT 2023-02-23 Addended by: BLANKA CHAMBERS on: 023 10:25 AM Blanka Chambers MA [facility] 09:15:00-00:00 Modules accepted: Orders 2021-10-18 [facility] 11:04:00-00:00 [facility] ([facility]) Hospitalist D/C Summary REPORT #: [id number] REPORT STATUS: Signed DATE: 10/18/21 TIME: 1104 PATIENT: CHRIS JOSEPH UNIT #: [id number] ROOM #: [id number] BED: 1 : 59 AGE: 61 SEX: F ATTEND: Mavis Ramirez MD ADM AUTHOR: Shaheen Whalen R2 ATTENTION *EDITS and/or ADDENDA must be made in Patient Ke eper for this note. * * Edits and ammendments created in [facility] are not visible * * in Patient Keeper or the legal medical record (HPF). * -- CO-SIGNATURE -- COMMENTS: I examined and evaluated this patient Agree with plan and findings as documented by me dical resident DVT prophylaxis SCD Time spent 40 minutes Signed in PatientKeeper by ALEJANDRA RAMIREZ MD on 10/18/21 at 15:30 -- PROBLEMS/PROCEDURES -- ADMISSION DATE: 10/17/21 ADMITTING DIAGNOSES: - Peptic ulcer disease - GI bleed DISCHARGE DATE: 10/18/21 DISCHARGE DIAGNOSES: - Peptic ulcer disease - GI bleed -- HOSPITAL COURSE -- HOSPITAL COURSE: 61-year-old female with past medical history of restless leg syndrome, PUD, bipolar disorder, type 2 diabetes, hypertension, hyperlipidemia who was transferred to our ER from an outside [facility] to be evaluated for possible GI bleed. Patient was started on high dose ppi and transfused one packed rbc due to significant drop in hemog lobin. She underwent EGD whichi showed non-bleeding gastric ulcer. Her diet was advanced and she was able to take meds by mouth. Was recommended to follow up with outpatient GI physician. she was discahrged home stable. -- DISCHARGE MEDICATIONS -- ALLERGIES: No Known Allergies (UNKNOWN - Allergy) DISCHARGE MEDICATIONS: Please refer to Discharge Medication list for a complete list of discharge medications Acetaminophen/Codeine #3 Tab (Tylenol #3 Tab) 1 TAB PO Q8HR PRN pain scale 4-6 metFORMIN Tab (Glucophage Tab) 500 MG PO BID (TA KE WITH MEALS) Pantoprazole DR Tab (Protonix Tab) 40MG PO Q12HR (for gastric ulcer), Disp: 60 tablet, Refills: 2 SEROquel XR tablet,extended release (quetiapine) 150 MG PO QPM Singulair tablet (montelukast) 10 MG PO DAILY Sucralfate Tab (Carafate Tab) 1 GM PO TID, Disp: 90 tablet, Refills: 0 tiZANidine capsule 10 MG PO BID traZODone tablet 300 MG PO BEDTIME -- DISCHARGE INSTRUCTIONS -- ADMISSION ORDERS: Discharge Follow Up:ADT - Admission Orders In 1- 2 weeks; In 1-2 weeks; ROSEANN BROWN MD; SEE THIS GI doctor for your bi opsy report; SEE THIS GI doctor for your biopsy repor t; In 1-2 weeks; SEE THIS GI doctor for your biopsy report; In 1-2 weeks; SEE THIS GI doctor for your biopsy report; In 1-2 weeks; SEE THIS GI doctor for your biopsy report; Roseann Thomas MD Details: Order number: [id number] Category: ADT - Admission Orders Order status: Transmitted Details: Consulting provider 1: Roseann Huggins MD Consulting provider 1: . Consult follow up timeframe: In 1-2 weeks Consult special instructions: SEE THIS GI doctor for your biopsy report Ordered by: Alejandra Ramirez MD Oct 18, 2021 10:21am Entered by: Alejandra Ramirez MD Service date: Oct 18, 2021 10:19am PK DISCHARGE ORDERS: DC Order - No eCQM 2019.2 Details: Details: Order number: [id number] Category: PKDC - PK Discharge Orders Order status: Transmitted Details: Discharge order: Yes Discharge to: Home/Self Care Diet: Diabetic Activity: As Tolerated PCP follow up timeframe: In 1-2 weeks Additional instructions: stop mobic or other NSAIDS Follow up with your GI or this GI DOCTOR Additional Discharge Routines: PCP Follow-Up Ordered by: Alejandra Ramirez MD Oct 18, 2021 10:21am Entered by: Alejandra Ramirez MD Service date: Oct 18, 2021 10:19am Discharge w/Instructions:PKD C - PK Discharge Orders In 1-2 weeks; PCP Follow-Up ADDTIONAL DISCHARGE INSTRUCTIONS: Emergency Instructions: The patient was instruct ed to present to the nearest Emergency Department or call 911 should their sy mptoms return or worsen.; -- OBJECTIVE -- VITALS (10/17 11:04 - 10/18 11:04): Temperature C: 36.7 (36.7 - 37.1) Temperature source: Oral Pulse Rate 84 (84 - 107) Respiratory rate: 16 (16 - 20) BP: 132/71 (131/71 - 148/85) I/Os (10/17 07:00 - 10/18 07:00): Net -1,746.00 Intake 2,254.00 Output 4,000 -EXAM- GENERAL: Well developed, in no acute distress th is morning HEAD: Normocephalic, atraumatic. NECK: Supple, No masses. CHEST: Grossly normal appearance. LUNGS: Clear bilaterally with normal respiratory effort. ABDOMEN: Soft, non-tender, no organomegaly, no m asses noted. MUSCULOSKELETAL: No deformity, no scoliosis note d of thoracic or lumbar spine, joint ROM grossly normal, normal gait an d station. EXTREMITIES: No clubbing, no cyanosis, no edema. -- DATA -- LABS BASIC METABOLIC PANEL (10/18/21 06:40) SODIUM 137 POTASSIUM 3.7 CHLORIDE 110H H CARBON DIOXIDE 22 ANION GAP 8.7 GLUCOSE 113H H BLOOD UREA NITROGEN 10 GLOMERULAR FILTRATION RATE >=60 max estimate CREATININE 0.8 BUN/CREATININE RATIO 12.5 CALCIUM 8.2 L CBC W/AUTO DIFF (10/18/21 06:40) WHITE BLOOD CELL 5.6 RED BLOOD CELL 2.57 L HEMOGLOBIN 8.3L L HEMATOCRIT 25.8L L MEAN CELL VOLUME 100 D MEAN CELL HGB 32.3 MEAN CELL HGB CONCENTRATION 32.2 RED CELL DISTRIBUTION WIDTH 13.2 PLATELET COUNT 170 MEAN PLATELET VOLUME 11.1 NEUTROPHIL % 57.0 IMMATURE GRANULOCYTE % 0.4 LYMPHOCYTE % 29.1 MONOCYTE % 10.7 EOSINOPHIL % 2.3 BASOPHIL % 0.5 NUCLEATED RBC % 0.0 NEUTROPHIL # 3.20 IMMATURE GRANULOCYTE # 0.020 LYMPHOCYTE # 1.63 MONOCYTE # 0.60 EOSINOPHIL # 0.13 BASOPHIL # 0.03 GLU BED (10/18/21 06:05) GLUBED 114 H GLU BED (10/17/21 23:19) GLUBED 121 H GLU BED (10/17/21 16:36) GLUBED 84 HGB amp; HCT (10/17/21 16:00) HEMOGLOBIN 9.1 L HEMATOCRIT 28.9 L -- ATTESTATION -- TIME SPENT ON PATIENT CARE: - Direct 40 minutes ADDITIONAL DETAIL: discussed with dr ramirez Signed in PatientKeeper by TIFFANIE WHALEN MD on 10/18/21 at 15:24 Cosigned by ALEJANDRA RAMIREZ MD on 10/18/21 at 15:30 at 1530 at 1530 ATTENTION *EDITS and/or ADDENDA must be made in Patient Ke eper for this note. * * Edits and ammendments created in [facility] are not visible * * in Patient Keeper or the legal medical record (HPF). * RPT #: [id number] END OF REPORT 2021-10-18 [facility] 10:21:00-00:00 [facility] ([facility]) Med Order Sheet REPORT #: [id number] REPORT STATUS: Signed DATE: 10/18/21 TIME: 1021 PATIENT: CHRIS JOSEPH UNIT #: [id number] ROOM #: [id number] BED: 1 : 59 AGE: 61 SEX: F ATTEND: Mavis Ramirez MD ADM AUTHOR: Alejandra Ramirez MD ATTENTION *EDITS and/or ADDENDA must be made in Patient Ke eper for this note. * * Edits and ammendments created in [facility] are not visible * * in Patient Keeper or the legal medical record (HPF). * Discharge Medication Reconciliation DISCHARGE MEDICATION LIST Acetaminophen/Codeine #3 Tab (Tylenol #3 Tab) Dose: 1 TAB PO Q8HR PRN pain scale 4-6 metFORMIN Tab (Glucophage Tab) Dose: 500 MG PO BID - TAKE WITH MEALS Pantoprazole DR Tab (Protonix Tab) Dose: 40MG PO Q12HR, Disp: 60 tablet, Refills: 2 - for gastric ulcer SEROquel XR tablet,extended release (quetiapine) Dose: 150 MG PO QPM Singulair tablet (montelukast) Dose: 10 MG PO DAILY tiZANidine capsule Dose: 10 MG PO BID traZODone tablet Dose: 300 MG PO BEDTIME Hosp: Sucralfate Tab (Carafate Tab) Dose: 1 GM PO TID, Disp: 90 tablet, Refills: 0 STOPPED HOME MEDICATIONS Dc'd: Mobic tablet (meloxicam) 15 MG PO DAILY STOPPED HOSPITAL MEDICATIONS Dc'd: Acetaminophen Tab (Tylenol Tab) 650MG PO Q 4H PRN pain score 1-3/fever>100.4Dc'd: ALPRAZolam Tab (Xanax Tab) 0.5MG PO BID PRN agitation or anxietyDc'd: Dextrose 50% Syringe (D50W Syrin ge) 50ML IV ASDIR PRN hypoglycemiaDc'd: Glucagon Inj (Glucagon Inj) 1M G IV ASDIR PRN hypoglycemiaDc'd: guaiFENesin ER Tab (Mucinex Ta b) 600MG PO BID PRN coughDc'd: HYDROcodone/APAP 10/325 Tab ([place] 10 /325 Tab) 1TAB PO Q4H PRN severe pain (score 7-8)Dc'd: HYDROcodone/APAP 5/ 325 Tab ([place] 5/325 Tab) 1TAB PO Q4H PRN moderate pain (scale 5-6)Dc'd: I nsulin Lispro InJ (HumaLOG Inj) 0 UNITS SUBQ Q6HRDc'd: Ondansetron Inj (Zof ran Inj) 4MG IV Q4H PRN nausea and vomitingDc'd: Promethazine Inj (Phene rgan Inj) 12.5MG IV Q6H X 3 doses PRN nausea/vomiting (use 2nd)in Sodium Chl oride 0.9% (NS) 50ML at 1021 ATTENTION *EDITS and/or ADDENDA must be made in Patient [facility] for this note. * * Edits and ammendments created in [facility] are not visible * * in Patient Keeper or the legal medical record ([facility]). * RPT #: [id number] END OF REPORT 2021-10-17 [facility] 13:34:00-00:00 [facility] ([facility]) Med Order Sheet REPORT #: [id number] REPORT STATUS: Signed DATE: 10/17/21 TIME: 1334 PATIENT: CHRIS JOSEPH UNIT #: [id number] ROOM #: [id number] BED: 1 : 59 AGE: 61 SEX: F ATTEND: Mavis Ramirez MD ADM AUTHOR: Shaheen Whalen ATTENTION *EDITS and/or ADDENDA must be made in Patient [facility] for this note. * * Edits and ammendments created in [facility] are not visible * * in Patient Keeper or the legal medical record ([facility]). * Admission Medication Reconciliation -- STOPPED HOME MEDICATIONS -- Home: tiZANidine capsule 10 MG PO BID FOLLOWING MEDICATIONS WERE PREVIOUSLY RECONC ILED ON 10/16/21 21:14 by Monie Nash NP -- CONTINUED / CHANGED HOME MEDICATIONS -- Home: Acetaminophen/Codeine #3 Tab (Tylenol #3 T ab) 1 TAB PO Q8HR PRN pain scale 4-6 Hosp: Existing: Acetaminophen/Codeine #3 Tab (Ty lenol #3 Tab) 1 TAB PO Q8HR PRN pain scale 4-6 Home: omeprazole tablet,delayed release 20 MG PO DAILY Hosp: Discontinue: Pantoprazole Inj (Protonix In j) 80MG IV X1EDin Sodium Chloride 0.9% (NS) 100ML Hosp: Existing: Pantoprazole Inj (Protonix Inj) 40MG IV [id number] Sodium Chloride 0.9% (Nacl 0.9%) 10ML Home: SEROquel XR tablet,extended release (queti apine) 150 MG PO QPM Hosp: Existing: QUEtiapine ER Tab (NF) (SEROquel XR Tab (NF)) 150 MG PO QPM Home: Singulair tablet (montelukast) 10 MG PO DA EDIE Hosp: Existing: Montelukast Tab (Singulair Tab) 10 MG PO DAILY Home: traZODone tablet 300 MG PO BEDTIME Hosp: Existing: traZODone Tab (Desyrel Tab) 300 MG PO BEDTIME -- STOPPED HOME MEDICATIONS -- Home: metFORMIN Tab (Glucophage Tab) 500 MG PO B ID (TAKE WITH MEALS) Home: Mobic tablet (meloxicam) 15 MG PO DAILY at 1334 ATTENTION *EDITS and/or ADDENDA must be made in Patient Ke eper for this note. * * Edits and ammendments created in [facility] are not visible * * in Patient Keeper or the legal medical record (HPF). * [facility] #: [id number] END OF REPORT 2021-10-17 [id number] [facility] 11:43:00-00:00 [id number] [facility] [id number] PATIENT NAME: CHRIS JOSEPH ADMIT DATE: 10/17/21 ACCOUNT NO: [id number] ROOM NO: [id number] AGE: 61 REPORT TYPE: OPERATIVE REPORT SEX: F ADMITTING PHYSICIAN:Alejandra Ramirez MD ATTENDING PHYSICIAN:Alejandra Ramirez MD OPERATION DATE: 10/17/2021 REFERRING PHYSICIAN: Alex Morris MD PREOPERATIVE DIAGNOSIS: POSTOPERATIVE DIAGNOSIS: PROCEDURE: EGD with control of bleeding. SURGEON: Roseann Brown MD TOWER SWITCH OPERATOR: ANESTHESIA: Sedation given by anesthesia. ESTIMATED BLOOD LOSS: Zero. ASA: 3. INDICATIONS: Upper GI bleed. PROCEDURE IN DETAIL: After explaining th e risks, benefits, and alternatives of the procedure to the patient, informed and writt en consent was taken. The patient was brought to the endoscopy suite, give n IV sedation by anesthesia. Next, the scope was introduced through the oroph arynx into esophagus under direct visualization and advanced to GE junction . There was a small hiatal hernia seen. The scope was then passed in the st omach. Stomach had gastritis with an antral ulcer with some pigment seen in t he ulcer base. Gold probe was used to cauterize the area. On retroflex ion, the cardia and fundus were within normal limits. The scope was passed into duodena l bulb and second portion of the duodenum, which were within normal limits. S cope was withdrawn into the stomach, stomach decompressed and the scope was withdrawn completely. The patient tolerated the procedure well. There were no immediate complications. IMPRESSION: Hiatal hernia, gastritis, gastric ul cer. PLAN: No NSAIDs. Protonix. Advance diet. If tole rated, can discharge home and follow up with her regular GI. Dr. Morris, thank you very much for allowing me t o participate in the care of your patient. I will keep you up-to-date as to h er progress. PATIENT NAME: CHRIS JOSEPH 9 Dictated By: Roseann Brown MD WT: OP:NC.EASTON/TODD/NTS Conf#: [id number]/DID#: [id number] cc: Alex Morris MD Authenticated by Roseann Brown MD On 10/18/2021 09:22:09 AM Electronically Signed by Roseann Brown MD on at 0922 PATIENT NAME: CHRIS JOSEPH 9 2021-10-17 [id number] [facility] 11:41:00-00:00 [id number] [facility] [id number] PATIENT NAME: CHRIS JOSEPH ADMIT DATE: 10/17/21 ACCOUNT NO: [id number] ROOM NO: [id number] AGE: 61 REPORT TYPE: CONSULATION SEX: F ADMITTING PHYSICIAN:Alejandra Ramirez MD ATTENDING PHYSICIAN:Alejandra Ramirez MD CONSULTATION DATE: 10/17/2021 CONSULTING PHYSICIAN: Roseann Brown MD REFERRING PHYSICIAN: Alex Morris MD REASON FOR CONSULTATION: Upper GI bleed. HISTORY OF PRESENT ILLNESS: The patient is a 61- year-old female with multiple medical problems, who had co ffee-ground emesis and melena. Denies any nausea or vomiting at present time. No heartburn. No dysph agia. No chest pain. No abdominal pain, no diarrhea. No hematochezia. No fever, chills, or rigors. REVIEW OF SYSTEMS: A 14-point review of systems, denies any cardiopulmonary, genitourinary, musculoskeletal, or neurological complaints. ALLERGIES: NO KNOWN DRUG ALLERGIES. PAST MEDICAL HISTORY: Significant for bipolar di sorder, depression, diabetes mellitus type 2, asthma, hypothyroidism, hyperli pidemia, hypertension, CVA, history of GI bleed, peptic ulcer disease, colit is, bilateral knee surgeries, x2, hysterectomy, cholecystectomy, wri st surgery. FAMILY HISTORY: Noncontributory. SOCIAL HISTORY: Denies any history of smoking, a lcohol, or IV drugs. No tattoos. CURRENT MEDICATIONS: Include Tylenol, Be nadryl, fentanyl, Robinul, Apresoline, [place], labetalol, Demerol, Zofran, Compazine, Ty lenol No. 3, Xanax, D50, glucagon, Mucinex, Humalog insulin, Singulair, P rotonix, Seroquel. PHYSICAL EXAMINATION: VITAL SIGNS: Her pulse is 102 per minute, blood pressure of 129/78, afebrile, respiratory rate of 18. SKIN: Within normal limits. HEENT: Revealed normal EOMI. Normal PERRLA. No e levated JVD. Carotids 2+. NECK: Supple. No lymphadenopathy. CHEST: With bilateral air entry. CARDIOVASCULAR: Normal S1 and S2. No S3. Regular rate and rhythm. No murmurs or rubs appreciated. ABDOMEN: Soft, nontender, nondistended with norm oactive bowel sounds. No PATIENT NAME: CHRIS JOSEPH 9 hepatosplenomegaly appreciated. No rebound. No g uarding. EXTREMITIES: Reveal no clubbing, cyanosis, or ed jocelynn. NEUROLOGIC: Grossly intact. LABORATORY DATA: Reviewed. IMPRESSION: 1. Upper gastrointestinal bleed. 2. Acute blood loss anemia. 3. Bipolar disorder. 4. Diabetes mellitus. PLAN: From GI standpoint, we will keep the patie nt n.p.o., IV fluids, IV Protonix. Transfuse as needed. No NSAIDs. Dr. Morris, thank you very much for allowing me t o participate in the care of your patient. I will keep you up-to-date as to h er progress. Dictated By: Roseann Brown MD WT: CON:BRIANNA.EASTON/TODD/MAKENZIE Conf#: [id number]/DID#: [id number] cc: Alex Morris MD Authenticated by Roseann Brown MD On 10/18/2021 09:22:07 AM Electronically Signed by Roseann Brown MD on at 0922 PATIENT NAME: CHRIS JOSEPH 9 2021-10-17 [facility] 10:18:00-00:00 [facility] ([facility]) Hospitalist Progress Note REPORT #: [id number] REPORT STATUS: Signed DATE: 10/17/21 TIME: 1018 PATIENT: CHRIS JOSEPH UNIT #: [id number] ROOM #: [place] [address] BED: 1 : 59 AGE: 61 SEX: F ATTEND: Mavis Ramirez MD ADM AUTHOR: Shaheen Whalen R2 ATTENTION *EDITS and/or ADDENDA must be made in Patient Ke eper for this note. * * Edits and ammendments created in [employer] are not visible * * in Patient Keeper or the legal medical record (HPF). * -- CO-SIGNATURE -- COMMENTS: i personally evaluated and examined this patient Agree with plans and findings of medical residen t full code DVT proph: SCD time spent 40mins Signed in PatientKeeper by ALEJANDRA RAMIREZ MD on 10/17/21 at 13:45 -- ASSESSMENT AND PLAN -- HOSPITAL COURSE TO DATE: 61-year-old female with past medical history of restless leg syndrome, PUD, bipolar disorder, type 2 diabetes, hypertension, hyperlipidemia who was transferred to our ER from an [facility] to be evaluated for possible GI bleed. #melena h/o pud -no further episodes while inpatient -takes meloxicam daily -trend hb transfuse as needed -high dose ppi -gi for egd this morning #dm -accucheks acqhs -insulin ss #mood disorder -resume seroquel #htn -hold bp meds for now diet;npo gi;ppi dvt; SCD full code plan; patient with prior his tory of PUD and NSAID use going for EGD to rule out upper gi bleed, continue npo and high dose ppi f or now, transfuse as needed -- SUBJECTIVE -- CHIEF COMPLAINT: abd pain, melena HPI: no evnets, feelingw ell, no further melena while inpatient, epigastric pain persists -REVIEW OF SYSTEMS- GENERAL: Negative for fever, malaise, fatigue. RESPIRATORY: Negative for dyspnea or wheeze. No cough. CARDIOVASCULAR: Negative for chest pain or palpi tations. No extremity swelling. GASTROINTESTINAL: No emesis. No diarrhea. GENITOURINARY: Negative for dysuria, frequency, or urgency. No gross hematuria. NEUROLOGICAL: Negative for headache. No vertigo. Denies paresthesias. -- OBJECTIVE -- VITALS (10/16 10:18 - 10/17 10:18): Temperature F: 98.2 (98.2 - 98.5) Temperature C: 37.2 (36.7 - 37.2) Temperature source: Oral Pulse Rate 102 (94 - 122) Respiratory rate: 18 (16 - 22) BP: 129/78 (107/54 - 150/91) Blood pressure source: Monitor -EXAM- GENERAL: Well developed, in no acute distress th is morning HEAD: Normocephalic, atraumatic. CHEST: Grossly normal appearance. LUNGS: Clear bilaterally with normal respiratory effort. HEART: Regular rate and rhythm, normal S1, S2, n o murmurs, no rubs, no gallops, no clicks. ABDOMEN: mild epigastric tenderness EXTREMITIES: No clubbing, no cyanosis, no edema. PULSES: Pulses normal in all extremities. -- DATA -- MEDICATIONS SODIUM CHLORIDE 0.9% 1000 ML IV .[id number] GLUCAGON 1 MG IV ASDIR (PRN) SODIUM CHLORIDE 0.9% 1000 ML IV .[id number] ACETAMINOPHEN 650 MG PO Q4H PRN HYDROcodone BITARTRATE/APAP 1 TAB PO Q4H PRN HYDROcodone BITARTRATE/APAP 1 TAB PO Q4H PRN ALPRAZolam 0.5 MG PO BID PRN ONDANSETRON HCL/PF 4 MG IV Q4H PRN PANTOPRAZOLE with/in SODIUM CHLORIDE 0.9% 40 MG IV Q12HR CODEINE PHOSPHATE/APAP 1 TAB PO Q8HR PRN guaiFENesin 600 MG PO BID PRN MONTELUKAST SODIUM 10 MG PO DAILY QUEtiapine FUMARATE 75 MG PO BID (DC'd) traZODone HCL 300 MG PO BEDTIME PROMETHAZINE HCL with/in SODIUM CHLORIDE 50 mL B AG 12.5 MG IV Q6H (PRN) INSULIN LISPRO 0 UNITS SUBQ Q6HR traZODone HCL 300 MG PO BEDTIME DEXTROSE 50%-WATER 50 ML IV ASDIR (PRN) LABS GLU BED (10/17/21 07:27) GLUBED 96 COMPREHENSIVE METABOLIC PANEL (10/17/21 07:20) SODIUM 138 POTASSIUM 4.2 CHLORIDE 112H H CARBON DIOXIDE 23 ANION GAP 7.2 GLUCOSE 104H H BLOOD UREA NITROGEN 20 GLOMERULAR FILTRATION RATE >=60 max estimate CREATININE 0.8 BUN/CREATININE RATIO 25.0 H TOTAL PROTEIN 6.2 L ALBUMIN 3.4 CALCIUM 8.7 BILIRUBIN TOTAL 0.3 SGOT/AST 19 SGPT/ALT 27 ALKALINE PHOSPHATASE 60 CBC W/AUTO DIFF (10/17/21 07:20) WHITE BLOOD CELL 5.5 RED BLOOD CELL 2.30 L HEMOGLOBIN 7.9L L HEMATOCRIT 24.8L L MEAN CELL VOLUME 108 D H MEAN CELL HGB 34.3 H MEAN CELL HGB CONCENTRATION 31.9 RED CELL DISTRIBUTION WIDTH 12.3 PLATELET COUNT 186 MEAN PLATELET VOLUME 11.1 NEUTROPHIL % 57.6 IMMATURE GRANULOCYTE % 0.2 LYMPHOCYTE % 32.2 MONOCYTE % 7.8 EOSINOPHIL % 1.3 BASOPHIL % 0.9 NUCLEATED RBC % 0.0 NEUTROPHIL # 3.17 IMMATURE GRANULOCYTE # 0.010 LYMPHOCYTE # 1.77 MONOCYTE # 0.43 EOSINOPHIL # 0.07 BASOPHIL # 0.05 VITB12 (10/17/21 07:20) VITAMIN B12 352 PROTHROMBIN TIME (10/17/21 07:20) PROTHROMBIN TIME PATIENT 11.9 INTERNATIONAL NORMAL RATIO 1.0 TSH REFX FT4 (10/17/21 07:20) TSH REFLEX TO FT4 3.36 FERRITIN (10/17/21 07:20) FERRITIN 132 FOLIC ACID (10/17/21 07:20) FOLIC ACID 35.90 H FE W/TOTAL IRON BINDING CAP (10/17/21 07:20) IRON 124 TOTAL IRON BINDING CAPACITY 307 IRON SATURATION 40 GLU BED (10/17/21 04:22) GLUBED 79 COVID 19 INH AG (10/16/21 22:50) COVID 19 INHOUSE AG NEGATIVE GLU BED (10/16/21 20:24) GLUBED 105 GLU BED (10/16/21 18:14) GLUBED 105 LIVER FUNCTION PANEL (10/16/21 14:51) TOTAL PROTEIN 6.7 ALBUMIN 3.5 GLOBULIN 3.2 BILIRUBIN TOTAL 0.3 BILIRUBIN DIRECT 0.1 BILIRUBIN INDIRECT 0.2 SGOT/AST 16 SGPT/ALT 27 ALKALINE PHOSPHATASE 64 LIPID PROFILE (CORONARY RISK) (10/16/21 14:51) TRIGLYCERIDES 80 CHOLESTEROL 85 CHOLESTEROL/HDL RATIO 2 HDL CHOLESTEROL 47 LIPOPROTEIN LDL 28 PROTHROMBIN TIME (10/16/21 14:51) PROTHROMBIN TIME PATIENT 11.4 INTERNATIONAL NORMAL RATIO 1.0 LIP (10/16/21 14:51) LIPASE 108 BASIC METABOLIC PANEL (10/16/21 14:51) SODIUM 136 POTASSIUM 5.4H H CHLORIDE 110H H CARBON DIOXIDE 22 ANION GAP 9.4 GLUCOSE 135H H BLOOD UREA NITROGEN 35H H GLOMERULAR FILTRATION RATE >=60 max estimate CREATININE 0.8 BUN/CREATININE RATIO 43.8 H CALCIUM 8.3 L CBC W/O DIFF (10/16/21 14:51) WHITE BLOOD CELL 8.2 RED BLOOD CELL 2.77 L HEMOGLOBIN 9.1L L HEMATOCRIT 28.7L L MEAN CELL VOLUME 104 H MEAN CELL HGB 32.9 MEAN CELL HGB CONCENTRATION 31.7 RED CELL DISTRIBUTION WIDTH 12.1 PLATELET COUNT 176 -- ATTESTATION -- TIME SPENT ON PATIENT CARE: - Direct 40 minutes ADDITIONAL DETAIL: discussed with dr ramirez Signed in PatientKeeper by TIFFANIE WHALEN MD on 10/17/21 at 13:31 Cosigned by ALEJANDRA RAMIREZ MD on 10/17/21 at 13:45 at 1345 at 1345 ATTENTION *EDITS and/or ADDENDA must be made in Patient [facility] for this note. * * Edits and ammendments created in [facility] are not visible * * in Patient Keeper or the legal medical record (HPF). * RPT #: [id number] END OF REPORT 2021-10-16 [facility] 21:55:00-00:00 [facility] ([facility]) Hospitalist H P REPORT #: [id number] REPORT STATUS: Signed DATE: 10/16/21 TIME: 2154 PATIENT: CHRIS JOSEPH UNIT #: [id number] ROOM #: NC.[id number] BED: 1 : 59 AGE: 61 SEX: F ATTEND: Mavis Ramirez MD ADM AUTHOR: Monie Nash NP ATTENTION *EDITS and/or ADDENDA must be made in Patient [facility] for this note. * * Edits and ammendments created in [facility] are not visible * * in Patient Keeper or the legal medical record (HPF). * -- CO-SIGNATURE -- COMMENTS: Agree with the findings and plan as documented Debra Nash NP. Pt seen and examined. Moderate complexity. Signed in PatientKeeper by ALEX MORRIS MD on 0 10/18/21 at 14:43 -- HISTORY -- ADMISSION DATE: 2021-10-16 PRIMARY CARE PROVIDER: Provider, Manuel CHIEF COMPLAINT: Diarrhea and rectal bleeding HPI: This is a 61-year-old female with past medical h istory of a bipolar disorder, depression, type 2 diabetes, asthma, hypertensio n, hyperlipidemia, history of GI bleed, PUD and colitis who was transferred to our ER from an outside facility to be evaluated for possible GI bleed. Apparently, patient presented with complaints of abdominal pain, dyspepsia and intractable diarrhea for 1 week, worse in the last coup le of days. She reports black stools on and off for 2 days, however patient is a somewhat a poor his evelina. States she had intermittent diarrhea for at least 6 months. She otherwise denies any fever, chills, chest pain, shortness of breath, lighthe adedness or dizziness, back pain, or any other associated symptoms. Of note, patient tested positive for COVID-19 at the transferring facility, however d enies any associated symptoms "I had it already, 4 months ago ". PAST MEDICAL HISTORY: Bipolar disorder Depression Type 2 diabetes Asthma Hypothyroidism Hyperlipidemia Hypertension CVA History of GI bleed PUD Colitis PAST SURGICAL HISTORY: Bilateral knee surgeries x2 Cholecystectomy Hysterectomy Wrist surgery FAMILY HISTORY: Denies sudden cardiac . -SOCIAL HISTORY- -TOBACCO USE- DETAILS/COMMENTS: Denies -VAPING/INHALED SOLVENTS- DETAILS/COMMENTS: Denies -ALCOHOL USE- DETAILS/COMMENTS: Denies -DRUG USE- DETAILS/COMMENTS: Denies -- ALLERGIES/HOME MEDS -- ALLERGIES: No Known Allergies (UNKNOWN - Allergy) HOME MEDICATIONS: Acetaminophen/Codeine #3 Tab (Tylenol #3 Tab) 1 TAB PO Q8HR metFORMIN Tab (Glucophage Tab) 500 MG PO BID Mobic tablet (meloxicam) 15 MG PO DAILY omeprazole tablet,delayed release 20 MG PO DAILY SEROquel XR tablet,extended release (quetiapine) 150 MG PO QPM Singulair tablet (montelukast) 10 MG PO DAILY tiZANidine capsule 10 MG PO BID traZODone tablet 300 MG PO BEDTIME -- SUBJECTIVE -- -REVIEW OF SYSTEMS- COMMENT: Questioning of 14 point review of syste ms, including questioning of head, eyes, ears, nose, throat, cardiopulmonary, gastrointestinal, genitourinar y, musculoskeletal, endocrine, and hematologic bod y systems are otherwise unremarkable except for those no anibal in the HPI. -- OBJECTIVE -- VITALS (10/15 20:55 - 10/16 21:55): Temperature F: 98.5 Temperature C: 36.8 Temperature source: Axillary Pulse Rate 122 (108 - 122) Respiratory rate: 18 (16 - 22) BP: 150/91 (136/80 - 150/91) -EXAM- OTHER: GENERAL: No acute distress, non-toxic appearing. HEAD: Normal with no signs of head trauma. EYES: PERRLA, EOMI, conjunctiva normal, no discharge. ENT: Hearing grossly intact, normal oropharynx. NECK: Supple, no tenderness, no lymphadenopathy , no masses, no thyromegaly, no bruits, no JVD. LUNGS: Clear breath sounds bilaterally. No whee zes, rales, or rhonchi. HEART: Regular rate and rhythm. Normal S1 and S 2, without murmurs, rub, or gallop. VASC: No edema. Peripheral pulses normal and eq ual in all extremities. ABD: Bowel sounds normal, soft, nontender, no m asses, no organomegaly. : Normal. LYMPH: No lymphadenopathy noted. EXT: Normal range of motion, no joint swelling, no clubbing, no cyanosis. SKIN: No rashes or lesions. NEURO: Alert and oriented x 3. Normal affect. C ranial nerves intact. No focal sensory or strength de ficits. Reflexes symmetric. -- DATA -- LABS GLU BED (10/16/21 20:24) GLUBED 105 GLU BED (10/16/21 18:14) GLUBED 105 LIP (10/16/21 14:51) LIPASE 108 BASIC METABOLIC PANEL (10/16/21 14:51) SODIUM 136 POTASSIUM 5.4H H CHLORIDE 110H H CARBON DIOXIDE 22 ANION GAP 9.4 GLUCOSE 135H H BLOOD UREA NITROGEN 35H H GLOMERULAR FILTRATION RATE >=60 max estimate CREATININE 0.8 BUN/CREATININE RATIO 43.8 H CALCIUM 8.3 L LIVER FUNCTION PANEL (10/16/21 14:51) TOTAL PROTEIN 6.7 ALBUMIN 3.5 GLOBULIN 3.2 BILIRUBIN TOTAL 0.3 BILIRUBIN DIRECT 0.1 BILIRUBIN INDIRECT 0.2 SGOT/AST 16 SGPT/ALT 27 ALKALINE PHOSPHATASE 64 LIPID PROFILE (CORONARY RISK) (10/16/21 14:51) TRIGLYCERIDES 80 CHOLESTEROL 85 CHOLESTEROL/HDL RATIO 2 HDL CHOLESTEROL 47 LIPOPROTEIN LDL 28 PROTHROMBIN TIME (10/16/21 14:51) PROTHROMBIN TIME PATIENT 11.4 INTERNATIONAL NORMAL RATIO 1.0 CBC W/O DIFF (10/16/21 14:51) WHITE BLOOD CELL 8.2 RED BLOOD CELL 2.77 L HEMOGLOBIN 9.1L L HEMATOCRIT 28.7L L MEAN CELL VOLUME 104 H MEAN CELL HGB 32.9 MEAN CELL HGB CONCENTRATION 31.7 RED CELL DISTRIBUTION WIDTH 12.1 PLATELET COUNT 176 -- ASSESSMENT AND PLAN -- GENERAL ASSESSMENT: Assessment and plan: #Gastrointestinal bleeding GI consulted, appreciate assistance Keep n.p.o. and start IV fluids Continue on pantoprazole 40 mg IV twice daily Monitor H H closely q 4 hours and transfuse if h emoglobin < 7 Obtain fecal occult blood #Anemia of acute blood loss and CD Hgb 9.1 and Hct 28.7 Trend H H q 4 hours Iron studies in a.m. #Intractable diarrhea Follow-up on CT abdomen and pelvis IBD panel #COVID-19 infection Had COVID-19 4 months ago, repeat Covid test her e No treatment per latest guidelines, patient is a symptomatic #HTN Resume home medications when verified, adjust if indicated Hydralazine 10 mg IV q6hrs prn for SBP > 160 Monitor BP q 4hrs #DM type 2 w/ hyperglycemia ISS level 1, up titrate as necessary Accu-Cheks q AC and HS unless NPO then q6h Hypoglycemic protocol Check HbA1c in a.m. #Hypothyroidism Resume replacement therapy with levothyroxine TSH level in a.m. #HLD, chronic Resume statin therapy when reconciled #Bipolar disorder Resume home regimen #Asthma w/o exacerbation Duo-Nebs as needed #DVT prophylaxis SCDs only Disposition: Further recommendations based on cl inical response. Code status: FULL CODE The plan of care including diagnosis, planned te sts and procedures, medications, physician services consulted and LO S, was discussed with the patient at the bedside and she is agreeable. CONSULTANTS: Gastroenterology -- ATTESTATION -- TIME SPENT ON PATIENT CARE: - Direct 60 minutes CARE ACTIVITIES / CARE COORDINATION: - I have reviewed the history and repeated the juarez elements - I have seen and examined this patient - I have discussed the jaswant ent's condition with other members of the care team Signed in PatientKeeper by Monie Nash NP o n 10/17/21 at 06:04 Cosigned by ALEX MORRIS MD on 10/18/21 at 14:4 3 at 1443 Electronically Signed by Alex Morris MD on at 1443 ATTENTION *EDITS and/or ADDENDA must be made in Patient Ke eper for this note. * * Edits and ammendments created in [facility] are not visible * * in Patient Keeper or the legal medical record (HPF). * RPT #: [id number] END OF REPORT 2021-10-16 [facility] 21:14:00-00:00 [facility] ([facility]) Med Order Sheet REPORT #: [id number] REPORT STATUS: Signed DATE: 10/16/21 TIME: 2113 PATIENT: CHRIS JOSEPH UNIT #: [id number] ROOM #: [id number].6204 BED: 1 : 59 AGE: 61 SEX: F ATTEND: Mavis Ramirez MD ADM AUTHOR: Monie Nash NP ATTENTION *EDITS and/or ADDENDA must be made in Patient Ke eper for this note. * * Edits and ammendments created in [facility] are not visible * * in Patient Keeper or the legal medical record (HPF). * Admission Medication Reconciliation -- CONTINUED / CHANGED HOME MEDICATIONS -- Home: Acetaminophen/Codeine #3 Tab (Tylenol #3 T ab) 1 TAB PO Q8HR PRN pain scale 4-6 Hosp: Acetaminophen/Codeine #3 Tab (Tylenol #3 T ab) 1 TAB PO Q8HR PRN pain scale 4-6 Home: omeprazole tablet,delayed release 20 MG PO DAILY Hosp: Existing: Pantoprazole Inj (Protonix Inj) 80MG IV X1EDin Sodium Chloride 0.9% (NS) 100ML Hosp: Existing: Pantoprazole Inj (Protonix Inj) 40MG IV E46LDlw Sodium Chloride 0.9% (Nacl 0.9%) 10ML Home: SEROquel XR tablet,extended release (queti apine) 150 MG PO QPM Hosp: QUEtiapine ER Tab (NF) (SEROquel XR Tab (N F)) 150 MG PO QPM Home: Singulair tablet (montelukast) 10 MG PO DA EDIE Hosp: Montelukast Tab (Singulair Tab) 10 MG PO D AILY Home: traZODone tablet 300 MG PO BEDTIME Hosp: traZODone Tab (Desyrel Tab) 300 MG PO BEDT CORA -- STOPPED HOME MEDICATIONS -- Home: metFORMIN Tab (Glucophage Tab) 500 MG PO B ID (TAKE WITH MEALS) Home: Mobic tablet (meloxicam) 15 MG PO DAILY The following home medications have not yet been reconciled: tiZANidine capsule 10 MG PO BID at 2114 ATTENTION *EDITS and/or ADDENDA must be made in Patient Ke eper for this note. * * Edits and ammendments created in [facility] are not visible * * in Patient Keeper or the legal medical record (HPF). * RPT #: [id number] END OF REPORT 2021-10-16 [facility] 15:16:00-00:00 [facility] ([facility]) EMERGENCY PROVIDER REPORT REPORT#:[id number] REPORT STATUS: Signed DATE:10/16/21 TIME: 1516 PATIENT: CHRIS JOSEPH UNIT #: [id number] [address] AGE: 61 SEX: F PCP PHYS: Undefined Provider SERVICE AUTHOR: Navneet Stevenson MD * ALL edits or amendments must be made on the el [employer]/computer document * HPI-General Illness Free Text HPI Notes Free Text HPI Notes 61-year-old female with asthma history anxiety, PUD, presents emergency department with melena. Was seen at [facility] she was worked up for syncope and found to be anemic with a hemoglobin of 9 and positive Hemoccult. Patient denies epigastric pa in, no dyspnea on exertion or syncope, no history of blood thinners. Denies hematochezia hematemesis nausea or vomiting. General Initial Greet Date/Time 10/16/21 1416 Presentation Chief Complaint __ (MELENA) Review of Systems Free Text ROS Notes Free Text ROS Notes ROS includes areas listed below and is negative except as stated in the HPI: - CONSTITUTIONAL: fever or chills. - HEENT: changes in vision or hearing. - RESPIRATORY: SOB and cough. - CV: palpitations or CP. - GI: abdominal pain, nausea, vomiting or diarrh ea. - : Denies dysuria and urinary frequency. - SKIN: Denies rash and pruritus. - NEUROLOGICAL: numbness tingling or weakness. - PSYCHIATRIC: hallucinations or suicidal though ts. Past Medical History - Adult Stated Complaint GI BLEED Allergies Coded Allergies: No Known Allergies (10/16/21) Home Medications Reported Medications Omeprazole Dr (Omeprazole) 20 MG PO DAILY Meloxicam (Mobic) 15 MG PO DAILY Quetiapine Xr (SEROquel Xr) 150 MG PO QPM Trazodone (Desyrel) 300 MG PO BEDTIME Montelukast (Singulair) 10 MG PO DAILY Metformin (Glucophage) 500 MG PO BID Acetaminophen/Codeine (Tylen ol With Codeine #3 300/30 Mg) 1 TAB PO Q8HR PRN PRN PAIN SCALE 4-6 Tizanidine (Zanaflex) 10 MG PO BID Calculated Suicide Risk (nurs) No risk Smoking status: Smoking status for patients 13 years old or old er: Never Smoker Free Text PMH Notes Patient reports no additional medical, surgical, family, or social history relevant to the chief complaint other than as de scribed above or in the HPI. Physical Exam Vital Signs Vital Signs First Documented: Result Date Time Pulse Ox 100 10/16 1432 B/P 141/90 10/16 1432 B/P Mean 107 10/16 1432 O2 Delivery Room air 10/16 1432 Temp 36.9 10/16 1432 Pulse 121 10/16 1432 Resp 16 10/16 1432 Last Documented: Result Date Time Pulse Ox 100 10/16 1630 B/P 144/81 10/16 1630 B/P Mean 102 10/16 1630 Pulse 108 10/16 1630 Resp 16 10/16 1630 O2 Delivery Room air 10/16 1432 Temp 36.9 10/16 1432 Review of Vital Signs Reviewed Free Text PE Notes Free Text PE Notes PHYSICAL EXAM: - GENERAL: Alert, conversant. No acute distress. - EYES: EOMI. Anicteric. - HENT: Moist mucous membranes. - LUNGS: Nonlabored breathing. No accessory musc le use. - CARDIOVASCULAR: Regular rate and rhythm. Warm, well-perfused. - ABDOMEN: Soft, non-tender and non-distended. - NEUROLOGIC: Moving extremities spontaneously. - PSYCHIATRIC: Cooperative. Appropriate mood and affect. Interpretation Diagnostics Lab Results Interpretation Results Laboratory Tests 10/16/21 1451: [Embedded Image Not Available] Laboratory Tests: 10/16 10/16 1451 1451 Chemistry Sodium (135 - 145 mmol/L) 136 Potassium (3.5 - 5.1 mmol/L) 5.4 H Chloride (98 - 107 mmol/L) 110 H Carbon Dioxide (21 - 32 mmol/L) 22 Anion Gap (2.0 - 16.0) 9.4 BUN (4 - 23 mg/dL) 35 H Creatinine (0.6 - 1.5 mg/dL) 0.8 Glomerular Filtr Rate (>60 ml/min) >=60 max est imate BUN/Creatinine Ratio (12.0 - 20.0) 43.8 H Glucose (65 - 99 mg/dL) 135 H Calcium (8.5 - 10.1 mg/dL) 8.3 L Total Bilirubin (0.2 - 1.2 mg/dL) 0.3 Direct Bilirubin (0.0 - 0.3 mg/dL) 0.1 Indirect Bilirubin (0.0 - 0.8 mg/dL) 0.2 AST (15 - 37 U/L) 16 ALT (6 - 50 U/L) 27 Total Alk Phosphatase (45 - 117 U/L) 64 Total Protein (6.4 - 8.2 g/dL) 6.7 Albumin (3.4 - 5.0 g/dL) 3.5 Globulin (2.3 - 3.5 g/dL) 3.2 Triglycerides (0 - 149 mg/dL) 80 Cholesterol (0 - 200 mg/dL) 85 LDL Cholesterol Measurd (0 - 100 mg/dL) 28 HDL Cholesterol (40 - 60 mg/dL) 47 Cholesterol/HDL Ratio (1 - 6) 2 Lipase (73 - 393 U/L) 108 Coagulation INR (0.8 - 1.1 RATIO) 1.0 PT Patient/Control Mix (9.4 - 12.5 SECONDS) 11. 4 Hematology WBC (4.5 - 11.0 10 3/uL) 8.2 RBC (3.50 - 5.50 10 6/uL) 2.77 L Hgb (12.0 - 16.0 g/dL) 9.1 L Hct (37.0 - 55.0 %) 28.7 L MCV (81 - 102 fL) 104 H MCH (26.0 - 34.0 pg) 32.9 MCHC (31.0 - 37.0 g/dL) 31.7 RDW (11.6 - 14.4 %) 12.1 Plt Count (150 - 400 10 3/uL) 176 Re-Evaluation MDM Free Text MDM Notes Free Text MDM Notes 61-year-old female presents with tachyca rdia and upper GI bleed. The to appear not to be correlated, hemoglobin is stab le without evidence of active bleeding here in the emergency department, repeat hemoglo bin 8.5. Appears stable for endoscopy tomorrow, will admit with gastroentero logy consult. ED Course Medication(s) Ordered Medication(s) Ordered: Gastrointestinal Drugs Sig/Bo Start time Last Medication Dose Route Stop Time Status Admin Pantoprazole 80 MG X1ED STA 10/16 1428 AC 10/04 3 Sodium Chloride 100 ML IV 10/17 0027 1455 Patient Discharge Departure Vital Signs/Condition Vital Signs First Documented: Result Date Time Pulse Ox 100 10/16 1432 B/P 141/90 10/16 1432 B/P Mean 107 10/16 1432 O2 Delivery Room air 10/16 1432 Temp 36.9 10/16 1432 Pulse 121 10/16 1432 Resp 16 10/16 1432 Last Documented: Result Date Time Pulse Ox 100 10/16 1630 B/P 144/81 10/16 1630 B/P Mean 102 10/16 1630 Pulse 108 10/16 1630 Resp 16 10/16 1630 O2 Delivery Room air 10/16 1432 Temp 36.9 10/16 1432 All vital signs available at the time of this en try have been reviewed. Clinical Impression Clinical Impression Primary Impression: UGIB (upper gastrointestinal bleed) Disposition Decision Admit Admit Physician Name Alejandra Ramirez MD Admit Physician Hospitalist Request Time 1520 Request Date 10/16/21 )( Admission Accepts Yes )( Accepted Time 1520 )( Accepted Date 10/16/21 Call Information agrees with eval Electronically Signed by Navneet Stevenson MD on 03 /13/22 at 2234 RPT #:[id number] END OF REPORT
[2023-04-04 23:29] LABS: Specific Gravity 1.012 (1.005-1.030); Urine Bacteria None Seen /HPF (<20); Urine Bilirubin NEGATIVE (Negative); Urine Blood Negative (Negative); Urine Clarity Clear (Clear); Urine Color Light-Yellow (Yellow); Urine Glucose NEGATIVE (Negative); Urine Protein NEGATIVE (Negative); Urine RBC <5 /HPF (None Seen); Urine Urobilinogen Normal (Normal); Urine pH 6.5 (5.0-7.0)
--- NOTE | 2023-04-04 23:36 | ER ---
Nurse's Notes [facility] Name: Radha Santos Age: 62 yrs Sex: Female : 1960 Arrival Date: 04/04/2023 Time: 20:54 Bed 6 Private MD: Diagnosis: Acute urinary retention, neurogenic bladder Presentation: 04/04 21:18 Chief complaint: Patient states: implantable bladder stimulater implanted and adjusted lg3 today and no urine output for 10 hours. Coronavirus screen: Client denies travel out of the [place] in the last 14 days. At this time, the client does not indicate any symptoms associated with coronavirus-19. Ebola Screen: No symptoms or risks identified at this time. Initial Sepsis Screen: Does the patient meet any 2 criteria? No. Patient's initial sepsis screen is negative. Does the patient have a suspected source of infection? No. Patient's initial sepsis screen is negative. Risk Assessment: Do you want to hurt yourself or someone else? Patient reports no desire to harm self or others. Onset of symptoms was April 04, 2023. 21:18 Method Of Arrival: Ambulatory lg3 21:18 Acuity: SAURAV 3 lg3 Triage Assessment: 21:20 General: Appears in no apparent distress. uncomfortable, Behavior is calm, cooperative. lg3 Pain: Complains of pain in pelvis. : Reports inability to void, pain. Historical: - Allergies: 21:20 No Known Allergies; lg3 - PMHx: 21:20 Anemia; Anxiety; Arthritis; Asthma; Back pain; Bipolar disorder; Bladder problem; CVA; lg3 depressive disorder; GERD; GI Bleed; hemorrhoids; hiatal hernia; Hypertensive disorder; hyperthyroidism; Migraine; peptic ulcer disease; - PSHx: 21:20 section; Cholecystectomy; knee; wrist; bladder; lg3 - Immunization history:: Adult Immunizations up to date, Client reports receiving the 2nd dose of the Covid vaccine. - Social history:: Smoking status: Patient denies any tobacco usage or history of. Patient/guardian denies using alcohol, street drugs. - Family history:: not pertinent. Screenin:00 [facility] ED Fall Risk Assessment (Adult) History of falling in the last 3 months, jw7 including since admission No falls in past 3 months (0 pts) Score/Fall Risk Level 0 - 2 = Low Risk. Abuse screen: Denies threats or abuse. Denies injuries from another. Nutritional screening: No deficits noted. Tuberculosis screening: No symptoms or risk factors identified. Vital Signs: 21:18 BP 118 / 82; Pulse 129; Resp 17 S; Temp 98.7(O); Pulse Ox 99% on R/A; Weight 97.52 kg lg3 (R); Height 5 ft. 6 in. (R); 21:18 Body Mass Index 34.70 (97.52 kg, 167.64 cm) 3 ED Course: 20:59 Patient arrived in ED. ag3 21:00 Jeremy Penn MD is Attending Physician. sp4 21:20 Triage completed. lg3 21:20 Arm band placed on right wrist. lg3 21:35 Magaly Mahmood RN is Primary Nurse. jw7 23:00 Patient has correct armband on for positive identification. Placed in gown. Bed in low jw7 position. Call light in reach. Side rails up X 1. 23:00 Vieira cath inserted, using sterile technique, 16 Fr., by md, balloon inflated, to jw7 gravity drainage. 23:35 Catie Machuca MD is Referral Physician. sp4 23:46 No provider procedures requiring assistance completed. Patient did not have IV access jw7 during this emergency room visit. 23:47 Provided Education on: discharge instructions. jw7 Administered Medications: No medications were administered Medication: 23:47 VIS not applicable for this client. jw7 Outcome: 23:35 Discharge ordered by MD. sp4 23:46 Discharged to home ambulatory, with family. jw7 23:46 Condition: stable 23:46 Discharge instructions given to patient, family, Instructed on discharge instructions, follow up and referral plans. Demonstrated understanding of instructions, follow-up care. 23:47 Patient left the ED. jw7 Signatures: Kathy Mckinney 3 Erin Monsivais RN RN 3 Magaly Mahmood RN RN jwJeremy Daly MD MD sp4
--- NOTE | 2023-04-04 23:36 | EDPHYS ---
Physician Documentation [facility] Name: Radha Santos Age: 62 yrs Sex: Female : 1960 Arrival Date: 04/04/2023 Time: 20:54 Bed 6 Private MD: ED Physician Jeremy Penn HPI: 04/04 21:00 This 62 yrs old Female presents to ER via Unassigned with complaints of sp4 Urinary Retention. 21:00 PMHx: Anemia; Arthritis; Asthma; back pain; Bipolar disorder; Bladder problem; cva; sp4 Depressive disorder; Anxiety; gerd; gi bleed; hemorrhoids; hiatal hernia; Hypertensive disorder; Hyperthyroidism; Migraine; peptic ulcer disease;. 23:31 Patient presents with urinary retention with no urination for the past 10 hours prior sp4 to presentation. Patient states she has Medtronic bladder stimulator with electrodes in the spine. Patient states her DIRECTOR INTERNATIONAL urologist is Dr. Escalera . Patient states they switched of Medtronic bladder stimulation earlier today, secondary to possible none functionality of the stimulator.. . Historical: - Allergies: 21:20 No Known Allergies; lg3 - PMHx: 21:20 Anemia; Anxiety; Arthritis; Asthma; Back pain; Bipolar disorder; Bladder problem; CVA; lg3 depressive disorder; GERD; GI Bleed; hemorrhoids; hiatal hernia; Hypertensive disorder; hyperthyroidism; Migraine; peptic ulcer disease; - PSHx: 21:20 section; Cholecystectomy; knee; wrist; bladder; lg3 - Immunization history:: Adult Immunizations up to date, Client reports receiving the 2nd dose of the Covid vaccine. - Social history:: Smoking status: Patient denies any tobacco usage or history of. Patient/guardian denies using alcohol, street drugs. - Family history:: not pertinent. ROS: 23:31 Constitutional: Negative for fever, chills, and weight loss. sp4 23:31 : Positive for Positive for urinary retention. 23:31 All other systems are negative. Exam: 23:31 Constitutional: This is a well developed, well nourished patient who is awake, alert, sp4 and in no acute distress. Frail elderly female ambulates with a walker, signs of physical deconditioning Head/Face: Normocephalic, atraumatic. Eyes: Pupils equal round and reactive to light, extra-ocular motions intact. Lids and lashes normal. Conjunctiva and sclera are not injected. Cornea within normal limits. Periorbital areas with no swelling, redness, or edema. ENT: Nares patent. No nasal discharge, no septal abnormalities noted. Tympanic membranes are normal and external auditory canals are clear. Oropharynx with no redness, swelling, or masses, exudates, or evidence of obstruction, uvula midline. Mucous membranes moist. Neck: Trachea midline, no thyromegaly or masses palpated, and no cervical lymphadenopathy. Supple, full range of motion without nuchal rigidity, or vertebral point tenderness. Chest/axilla: Normal chest wall appearance and motion. Nontender with no deformity. No lesions are appreciated. Cardiovascular: Regular rate and rhythm with a normal S1 and S2. No gallops, murmurs, or rubs. Normal PMI, no JVD. No pulse deficits. Respiratory: Lungs have equal breath sounds bilaterally, clear to auscultation and percussion. No rales, rhonchi or wheezes noted. No increased work of breathing, no retractions or nasal flaring. Abdomen/GI: Soft, non-tender, with normal bowel sounds. No distension or tympany. No guarding or rebound. No evidence of tenderness throughout. Back: No spinal tenderness. No costovertebral tenderness. Female : There is urinary bladder distention with ultrasound exam Skin: Warm, dry with normal turgor. Normal color with no rashes, no lesions, and no evidence of cellulitis. MS/ Extremity: Pulses equal, no cyanosis. Neurovascular intact. Full, normal range of motion. Neuro: Awake and alert, GCS 15, oriented to person, place, time, and situation. Cranial nerves II-XII grossly intact. Motor strength 5/5 in all extremities. Sensory grossly intact. Psych: Awake, alert, with orientation to person, place and time. Behavior, mood, and affect are within normal limits Vital Signs: 21:18 BP 118 / 82; Pulse 129; Resp 17 S; Temp 98.7(O); Pulse Ox 99% on R/A; Weight 97.52 kg lg3 (R); Height 5 ft. 6 in. (R); 21:18 Body Mass Index 34.70 (97.52 kg, 167.64 cm) lg3 MDM: 21:01 Patient medically screened. sp4 23:31 Differential Diagnosis Acute urinary retention, neurogenic bladder, bladder outlet sp4 obstruction. Data reviewed: vital signs, nurses notes, old medical records, lab test result(s), urinalysis. Consideration of Admission/Observation Escalation of care including admission/observation considered. ED course: Vieira catheter was placed and drained 1400 ml of clear urine. ED course: Leg bag was applied. Patient was advised to see her DIRECTOR INTERNATIONAL urologist soon as possible. Vieira will be left in place. Patient discharged in stable condition. . 04/04 21:01 Order name: Urinalysis W/Microscopic; Complete Time: 23:31 sp4 04/04 21:20 Order name: Vieira; Complete Time: 23:00 sp4 04/04 22:54 Order name: Leg Bag; Complete Time: 23:46 sp4 Administered Medications: No medications were administered Disposition Summary: 04/04/23 23:35 Discharge Ordered Location: Home sp4 Problem: new sp4 Symptoms: have improved sp4 Condition: Stable sp4 Diagnosis - Acute urinary retention, neurogenic bladder sp4 Followup: sp4 - With: Catie Machuca MD - When: 1 - 2 days - Reason: Recheck today's complaints Discharge Instructions: - Discharge Summary Sheet sp4 - Acute Urinary Retention, Female, Fyms-wo-Hath sp4 Forms: - Patient Portal Instructions sp4 - Leadership Thank You Letter sp4 Signatures: Dispatcher [employer] Erin Borrego, RIMA RN lg3 Jeremy Penn MD MD sp4
[2023-04-04 23:52] VITALS: BP 118/82; TEMP 98.7; O2SAT 99
== END 2023-04-04 23:47 | disposition home or self-care (01) ==
LOC: ER 20:54
PROC: 0T9B70Z Drainage of Bladder with Drainage Device, Via Natural or Artificial Opening (ICD-10-PCS; principal; 2023-04-04)
DX: R33.9 Retention of urine, unspecified (principal); N31.9 Neuromuscular dysfunction of bladder, unspecified
CPT/HCPCS: 81001

== ENCOUNTER 2023-06-23 19:08 | Emergency (ER) | payer OTHER ==
--- OUTSIDE RECORDS SUMMARY | 2023-06-23 19:26 | XMS REPORT | Continuity of Care Document ---
:1960 Author Organization [facility] t Address [address] [place] [address] Care Team Providers Name Role Phone Skylar Triana MD Primary Care Physician Skylar Triana Attending Clinician Unavailable NICHOLE LAU Attending Clinician Unavailable NICHOLE LAU Attending Clinician Unavailable MEHRDAD BLAIR Attending Clinician Unavailable Ruth Matias Attending Clinician Unavailable Sheryl Allison Attending Clinician Unavailable KUSUM PACHECO Attending Clinician Unavailable Nichole Lau MD Attending Clinician Doctor Unassigned, [place] [facility] Attending Clinician Unavailable Pob, Adc Lab Main Attending Clinician Unavailable Kusum Iyer Attending Clinician ALFREDO RIGGS Attending Clinician Unavailable CUONG LOWERY Attending Clinician Unavailable MALDONADO GONZÁLES Attending Clinician Unavailable [email or web address] Attending Clinician Unavailable ERPABLO_R Attending Clinician Unavailable Katty Correia S Attending Clinician Sebastián ABARCA, Karen Neely Attending Clinician Unavailable PRAKASH WALLER Attending Clinician Unavailable Prakash Waller MD Attending Clinician Mayra LEMUS, Earnest Henning Attending Clinician ROXY BACH Attending Clinician Unavailable Isreal ASSEMBLY INSPECTORRoxy Attending Clinician Leon Wilson Attending Clinician Mehrdad Blair MD Attending Clinician Only, Adc Test Attending Clinician Unavailable Stanley Lobo Attending Clinician Unavailable KATTY VIEIRA S Attending Clinician Unavailable Lavell John DO Attending Clinician Radiology Attending Clinician Unavailable RADIOLOGY Attending Clinician Unavailable LEON HOUSTON Attending Clinician Unavailable Lola PAC, K Shari Attending Clinician Mauro Chinchilla MD Attending Clinician Gomez Hawkins MD Attending Clinician Tai Avalos CRNA Attending Clinician Maribel Moody MD, Leonard Attending Clinician AMANDA JORDAN Attending Clinician Unavailable GABRIEL RODRIGUEZ Attending Clinician Unavailable NICHOLE LAU Admitting Clinician Unavailable MEHRDAD BLAIR Admitting Clinician Unavailable Nichole Lau MD Admitting Clinician [email or web address] Admitting Clinician Unavailable KUSUM PACHECO Admitting Clinician Unavailable MERRY Admitting Clinician Unavailable PRAKASH WALLER Admitting Clinician Unavailable Christin LEMUS, Prakash Lebron Admitting Clinician Mehrdad Blair MD Admitting Clinician Stanley Lobo Admitting Clinician Unavailable LAVELL JOHN Admitting Clinician Unavailable Ross LEMUS, Gomez Admitting Clinician Payers Payer Name Policy Type Policy Number Effective Date Expiration Date S jeovany [facility] [id number] 2020 [facility] 00:00:00 PPO HUMANA CHOICE [id number] 2013 00:00:00 [facility] [id number] (MEDICARE REPLACEMENT/ADVANT AGE - PPO) [facility] HealthSelect 1 [id number] 2021 Common TRS/ERS MCR PPO 00:00:00 Spirit - [facility] MEDICARE NOVITAS MB [id number] [facility] MEDICARE NOVITAS MB [id number] [facility] Problems Condition Condition Condition Status Onset Resolution Last Treating Co mments Source Name Details Category Date Date Treatment Clinician Date Cubital Cubital Disease Active Univers tunnel tunnel 9-22 [place] of syndrome, [place], [place] 00 [place] Pre-op Pre-op Disease Active Univers testing testing 9-22 ity of 00:00: [place] 00 Medical Branch GIB GIB Disease Active Univers (gastroint (gastroint 8-17 it y of estinal estinal 00:00: [place] bleeding) bleeding) 00 [facility] gregg Branch Sinus Sinus Disease Active Univers tachycardi tachycardi 6-20 it y of a a 00:00: [place] 00 Medical Branch Anemia Anemia Disease Active Univers 6-20 ity of 00:00: 00 Medical Branch Essential Essential Disease Active Uni vers hypertensi hypertensi 6-20 it y of on on 00:00: [place] 00 Medical Branch Type 2 Type 2 Disease Active Univers diabetes diabetes 6-20 ity of mellitus mellitus 00:00: [place] without without 00 Medical complicati complicati Br anch on, on, without without long-term long-term current current use of use of insulin insulin Colitis Colitis Disease Active Univers 6-16 ity of 00:00: [place] [address] Medical Branch Obesity Obesity Disease Active Univers (BMI (BMI 6-16 ity of 30-39.9) 30-39.9) 00:00: [place] [address] Medical Branch [id number] Chronic Problem Commo n pain Spirit syndrome - [facility] [id number] FABIANA Problem Common (generaliz Spirit ed anxiety - CHI disorder) [facility] Chronic Chronic Problem Common sinusitis sinusitis Spir it - [facility] Hypothyroi Hypothyroi Problem C ommon dism dism [facility] Acute Acute Problem Common peptic peptic Spirit ulcer with ulcer, - CHI hemorrhage site St AND with unspecifie Luke s perforatio d, with Medic al n but both Center without hemorrhage obstructio and n perforatio n [id number] Other Problem Common chronic Spirit pain - [facility] [id number] Anxiety Problem Common [facility] Gastroesop Gastroesop Problem C [facility] hageal hageal Spirit reflux reflux - CHI disease disease St with with [facility]ukes esophagiti esophagiti Me dical s s and Center (disorder) hemorrhage [id number] Grief Problem Common [facility] Recurrent Falling Problem Commo n falls [facility] 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 - CHI cular accident St disease with [facility] current Medical residual Center effects 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 [id number] Unsteady Problem Comm on gait Spirit [facility] [id number] Chronic Problem Comm on tension-ty Spirit pe - CHI headache, St intractabl [facility] [id number] Frontal Problem Commo n sinus pain Spirit - [facility] [id number] Hospital Problem Comm on discharge [facility] follow-up - [facility] [id number] OAB Problem Common (overactiv Spirit e bladder) - [facility] [id number] Reactive Problem Commo n depression [facility] [id number] Primary Problem Comm on osteoarthr Spirit itis of - CHI right shoulder [facility] Mixed Mixed Problem Common hyperlipid hyperlipid Sp coretta emia emia - [facility] [id number] Polyneurop Problem Com mon athy Spirit - [facility] 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 - [facility] diabetes with mellitus diabetic [facility] without long-term current use of insulin [id number] Hypertensi Problem Com mon ve heart Spirit disease - [facility] without [facility] [id number] Abnormal Problem Comm on mammogram [facility] - [facility] [id number] [place] [id number] tunnel Spirit syndrome - [facility] of right wrist [facility] [id number] Mild Problem Common intermitte Spirit nt asthma - [facility] [id number] Non-season Problem Com mon al Spirit allergic - CHI rhinitis St due to [facility] pollen [facility] [id number] Bipolar 1 Problem Comm on disorder Spirit with - [facility] moderate bhavik [facility] [id number] Osteoarthr Problem Co mmon itis of Spirit multiple - CHI joints, St unspecifie [facility] Medical osteoarthr Center itis type Allergies, Adverse Reactions, Alerts Allergy Allergy Status Severity Reaction(s) Onset Inactive Treating Comm ents Source Name Type Date Date Clinician No Known DA Active U [facility] Allergie 10-16 [facility] 00:00: Health 00 are [place] NO KNOWN Drug Active Univers ALLERGIE Class ity of S [facility] [id number] Drug Active vaginal Common allergy swelling [facility] - [facility] Social History Social Habit Start Date Stop Date Quantity Comments Source History of Tobacco Common Spirit - Use [facility] Sex Assigned At Common Sp coretta - [facility] Gender identity Universit [facility] Sexual orientation Univer [facility] History of Social 2023-06-18 2023-06-18 Univers ity of function 00:00:00 00:00:00 [facility] Alcohol intake 2023-05-23 2023-05-23 0 /d University of 00:00:00 00:00:00 [facility] Exposure to 2022-08-14 2022-08-24 Not sure [facility] SARS-CoV-2 (event) 00:00:00 11:14:00 [facility] Tobacco use and 2022-03-22 2022-03-22 Smokeless Universit y of exposure 00:00:00 00:00:00 tobacco non-user [facility] Smoking Status Start Date Stop Date Source Never smoked tobacco [facility] Medications Ordered Filled Start Stop Current Ordering Indication Dosage Frequency Signature Comments Components Source Medication Medication Date Date Medication? Clinician (SIG) Name Name hydralAZINE 2022-08 No 20mg 20 mg, Uni vers (APRESOLINE -06-18 Slow IV ity of ) injection 16:45: 16:07 [place] 20 mg 00 :00 ONCE, 1 Medical dose, On Branch Sun06/18/23 at 1045, STAT hydralAZINE 2022-08 No 20mg 20 mg, Uni vers (APRESOLINE 1-06-18 Slow IV ity of ) injection 16:45: 16:07 [place] 20 mg 00 :00 ONCE, 1 Medical dose, On Branch Sun06/18/23 at 1045, STAT HYDROcodone 2022-08 No 1{tbl} 1 tablet, Univers -acetaminop 1-18 06-13 Oral, ity of hen (NORCO 15:15: 15:32 ONCE, 1 [place] 5) 5-325 mg 00 :00 dose, On Medi gregg tablet 1 Mon Branch tablet 06/18/23 at 0915, Routine, PACU HYDROcodone 2022-08 No 1{tbl} 1 tablet, Univers -acetaminop 1-13 11-13 Oral, ity of hen (NORCO 15:15: 15:32 ONCE, 1 [place] 5) 5-325 mg 00 :00 dose, On Medi gregg tablet 1 Mon Branch tablet 06/18/23 at 0915, Routine, PACU ondansetron 2022-08 Yes 4mg 4 mg, Slow Univers (ZOFRAN 08-18 IV Push, ity of (PF)) 15:14: PRN, 1 [place] injection 4 58 dose, Medical mg Starting Branch on Sun06/18/23 at 0914, Until Discontinu ed, Routine, Nausea and Vomiting (N/V), PACU FENTanyl PF 2022-08- No 25ug 25 mcg, Un yan (SUBLIMAZE 08-18 Slow IV ity o f (PF)) 15:14: 15:35 Push, [place] injection 58 :00 Q5MIN PRN, Medi gregg 25 mcg 4 doses, Branch Starting on Sun06/18/23 at 0914, Until Discontinu ed, Routine, Pain (scale 4-6), PACU FENTanyl PF 2022-08 No 25ug 25 mcg, Un yan (SUBLIMAZE 08-18 Slow IV ity o f (PF)) 15:14: 15:35 Push, [place] injection 58 :00 Q5MIN PRN, Medi gregg 25 mcg 4 doses, Branch Starting on Sun06/18/23 at 0914, Until Discontinu ed, Routine, Pain (scale 4-6), PACU ondansetron 2022-08 No 4mg 4 mg, Slow Univers (ZOFRAN 08-18 IV Push, ity of (PF)) 15:14: 18:47 PRN, 1 [place] injection 4 58 :02 dose, Medical mg Starting Branch on Sun06/18/23 at 0914, Until Sun06/18/23 at 1247, Routine, Nausea and Vomiting (N/V), PACU sodium 2022-08- No PRN, Univers chloride 08-18 Starting ity of 0.9 % 14:04: 14:45 on Sun irrigation 00 :03 06/18/23 Medic al solution at 0804, Branch Until Sun06/18/23 at 0845, Intra-op lactated 2022-08- No 1000mL at 42 Unive rs ringers IV 08-18 mL/hr, ity of infusion 13:00: 13:18 1,000 mL, [place] as 1,000 mL 00 :00 IV Medical Infusion, Branch ONCE, 1 dose, On Sun06/18/23 at 0700, Routine, DSU Pre-op lactated 2022-08- 1000mL at 42 Unive rs ringers IV 1-13 11-13 mL/hr, ity of infusion 13:00: 13:18 1,000 mL, [place] as 1,000 mL 00 :00 IV Medical Infusion, Branch ONCE, 1 dose, On Sun06/18/23 at 0700, Routine, DSU Pre-op metFORMIN 2022-08 Yes 500mg Take 1 Unive rs (GLUCOPHAGE 1-13 tablet by ity of ) 500 mg 10:46: mouth in [place] tablet 58 the Medical morning Branch and 1 tablet in the evening. Take with meals. simvastatin 2022-08 Yes 20mg Take 1 Univ ers (ZOCOR) 20 1-13 tablet by ity of mg tablet 10:46: mouth at [place] [address] bedtime. Medical Branch traZODone 2022-08 Yes 100mg Take 1 Unive rs 100 mg -13 tablet by ity of tablet 10:46: mouth at [place] [address] bedtime. Medical Pt takes Branch 1-2 tabs at bedtime traMADoL 50 2022-08 Yes 100mg Take 2 Uni vers mg tablet 1-13 tablets by ity of 10:46: mouth in [place] [address] the Medical morning Branch and 2 tablets in the evening. sucralfate 2022-08 Yes sucralfate U nivers 1 gram 08-18 1 gram ity of tablet 10:46: tablet [place] 58 TAKE 1 Medical TABLET BY Branch MOUTH BEFORE MEALS AND AT BEDTIME spironolact 2022-08 Yes spironolac Univers one 25 mg - tone 25 mg ity of tablet 10:46: tablet [place] 58 TAKE 1 Medical TABLET BY Branch MOUTH EVERY DAY SITagliptin 2022-08 Yes Januvia Uni vers (JANUVIA) 1-13 100 mg ity of 100 mg 10:46: tablet [place] tablet 58 TAKE 1 Medical TABLET BY Branch MOUTH EVERY DAY FOR 16 DAYS QUEtiapine 2022-08 Yes 400mg Take 1 Univ ers 400 mg 1-13 tablet by ity of tablet 10:46: mouth [place] [address] every Medical evening. 2 Branch hours before bedtime QUEtiapine 2022-08 Yes quetiapine U nivers 200 mg 1-13 200 mg ity of tablet 10:46: tablet [place] [address] TAKE 1 Medical TABLET BY Branch MOUTH TWICE DAILY pantoprazol 2022-08 Yes pantoprazo Univers e 40 mg EC 08-18 le 40 mg ity o f tablet 10:46: tablet,del [address] Medical [facility] TAKE 1 TABLET BY MOUTH EVERY DAY montelukast 2022-08 Yes montelukas Univers 10 mg 08-18 t 10 mg ity of tablet 10:46: tablet [place] [address] TAKE 1 Medical TABLET BY Branch MOUTH EVERY DAY IN THE EVENING methocarbam 2022-08 Yes methocarba Univers oL 500 mg 08-18 mol 500 mg ity of tablet 10:46: tablet [place] [address] TAKE 1 Medical TABLET BY Branch MOUTH THREE TIMES DAILY FOR 5 DAYS meloxicam 2022-08 Yes meloxicam Uni vers 15 mg 08-18 15 mg ity of tablet 10:46: tablet [place] [address] TAKE 1 Medical TABLET BY Branch MOUTH EVERY DAY losartan 50 2022-08 Yes losartan Un yan mg tablet 08-18 50 mg ity of 10:46: tablet [place] [address] TAKE 1 Medical TABLET BY Branch MOUTH TWICE DAILY levothyroxi 2022-08 Yes 200ug Take 1 Uni vers ne 200 mcg 08-18 tablet by ity of tablet 10:46: mouth [place] [address] every Medical morning. [place] gabapentin 2022-08 Yes gabapentin U nivers 300 mg 08-18 300 mg ity of capsule 10:46: capsule [place] [address] TAKE 1 Medical CAPSULE BY Branch MOUTH AT BEDTIME DULoxetine 2022-08 Yes duloxetine U nivers 60 mg 08-18 60 mg ity of capsule 10:46: capsule,[place] 58 [facility] TAKE 1 CAPSULE BY MOUTH TWICE DAILY divalproex 2022-08 Yes divalproex U nivers 500 mg EC 08-18 500 mg ity of tablet 10:46: tablet,del [address] TAKE 1 TABLET BY MOUTH DAILY amLODIPine 2022-08 Yes 5mg Take 1 Unive rs 5 mg tablet 13 tablet by ity of 10:46: mouth in [place] [address] the Medical morning. Branch ALBUTEROL 2022-08 Yes as needed. Un yan INHALE 1-13 ity of 10:46: [address] Branch fluticasone 2022-08 Yes Trelegy Uni vers -umeclidin- -13 Ellipta ity o f vilanter 10:46: [place] (TRELEGY 58 Medical ELLIPTA) Branch 200-62.5-25 mcg DsDv hydrOXYzine 2022-08 Yes hydrOXYzin Univers 25 mg 1-13 e HCl ity of tablet 10:46: [place] 58 Medical Branch rimegepant 2022-08 Yes 7.5mg Take 7.5 Un yan sulfate 1-13 mg by ity of (NURTEC ODT 10:46: mouth as [place] ORAL) 58 needed for Medical Other. Branch Taken for Migraine omeprazole 2022-08 Yes 40mg Take 1 Unive rs 40 mg 1-13 capsule by ity of capsule 10:46: mouth in [place] [address] the Medical morning. Branch deutetraben 2022-08 Yes 9mg Take 1 Univ ers azine 1-13 tablet by ity of (AUSTEDO) 9 10:46: mouth in [place] mg Tab 58 the Medical morning Branch and 1 tablet in the evening. metFORMIN 2022-08 Yes 500mg Take 1 Unive rs (GLUCOPHAGE 1-13 tablet by ity of ) 500 mg 10:46: mouth in [place] tablet 58 the Medical morning Branch and 1 tablet in the evening. Take with meals. simvastatin 2022-08 Yes 20mg Take 1 Univ ers (ZOCOR) 20 1-13 tablet by ity of mg tablet 10:46: mouth at [place] [address] bedtime. Medical Branch traZODone 2022-08 Yes 100mg Take 1 Unive rs 100 mg 1-13 tablet by ity of tablet 10:46: mouth at [place] [address] bedtime. Medical Pt takes Branch 1-2 tabs at bedtime traMADoL 50 2022-08 Yes 100mg Take 2 Uni vers mg tablet 1-13 tablets by ity of 10:46: mouth in [place] [address] the Medical morning Branch and 2 tablets in the evening. sucralfate 2022-08 Yes sucralfate U nivers 1 gram -13 1 gram ity of tablet 10:46: tablet [place] [address] TAKE 1 Medical TABLET BY Branch MOUTH BEFORE MEALS AND AT BEDTIME spironolact 2022-08 Yes spironolac Univers one 25 mg 1-13 tone 25 mg ity of tablet 10:46: tablet [place] [address] TAKE 1 Medical TABLET BY Branch MOUTH EVERY DAY SITagliptin 2022-08 Yes Januvia Uni vers (JANUVIA) 1-13 100 mg ity of 100 mg 10:46: tablet [place] tablet 58 TAKE 1 Medical TABLET BY Branch MOUTH EVERY DAY FOR 16 DAYS QUEtiapine 2022-08 Yes 400mg Take 1 Univ ers 400 mg 13 tablet by ity of tablet 10:46: mouth [place] 58 every Medical evening. 2 Branch hours before bedtime QUEtiapine 2022-08 Yes quetiapine U nivers 200 mg 08-18 200 mg ity of tablet 10:46: tablet [place] 58 TAKE 1 Medical TABLET BY Branch MOUTH TWICE DAILY pantoprazol 2022-08 Yes pantoprazo Univers e 40 mg EC 08-18 le 40 mg ity o f tablet 10:46: tablet,del [place] 58 ayed Medical release [place] TAKE 1 TABLET BY MOUTH EVERY DAY montelukast 2022-08 Yes montelukas Univers 10 mg 08-18 t 10 mg ity of tablet 10:46: tablet [place] 58 TAKE 1 Medical TABLET BY Branch MOUTH EVERY DAY IN THE EVENING methocarbam 2022-08 Yes methocarba Univers oL 500 mg 08-18 mol 500 mg ity of tablet 10:46: tablet [place] 58 TAKE 1 Medical TABLET BY Branch MOUTH THREE TIMES DAILY FOR 5 DAYS meloxicam 2022-08 Yes meloxicam Uni vers 15 mg 08-18 15 mg ity of tablet 10:46: tablet [place] 58 TAKE 1 Medical TABLET BY Branch MOUTH EVERY DAY losartan 50 2022-08 Yes losartan Un yan mg tablet 13 50 mg ity of 10:46: tablet [place] 58 TAKE 1 Medical TABLET BY Branch MOUTH TWICE DAILY levothyroxi 2022-08 Yes 200ug Take 1 Uni vers ne 200 mcg 08-18 tablet by ity of tablet 10:46: mouth [place] 58 every Medical morning. Branch gabapentin 2022-08 Yes gabapentin U nivers 300 mg 08-18 300 mg ity of capsule 10:46: capsule [place] 58 TAKE 1 Medical CAPSULE BY Branch MOUTH AT BEDTIME DULoxetine 2022-08 Yes duloxetine U nivers 60 mg 13 60 mg ity of capsule 10:46: [place] 58 layed Medical release Branch TAKE 1 CAPSULE BY MOUTH TWICE DAILY divalproex 2022-08 Yes divalproex U nivers 500 mg EC 08-18 500 mg ity of tablet 10:46: tablet,del [place] 58 ayed Medical release [place] TAKE 1 TABLET BY MOUTH DAILY amLODIPine 2022-08 Yes 5mg Take 1 Unive rs 5 mg tablet 1-13 tablet by ity of 10:46: mouth in [place] [address] the Medical morning. Branch ALBUTEROL 2022-08 Yes as needed. Un yan INHALE 1-13 ity of 10:46: [place] [address] Medical Branch fluticasone 2022-08 Yes Trelegy Uni vers -umeclidin- 1-13 Ellipta ity o f vilanter 10:46: [place] (TRELEGY 58 Medical ELLIPTA) Branch 200-62.5-25 mcg DsDv hydrOXYzine 2022-08 Yes hydrOXYzin Univers 25 mg 1-13 e HCl ity of tablet 10:46: [place] [address] Medical Branch rimegepant 2022-08 Yes 7.5mg Take 7.5 Un yan sulfate 1-13 mg by ity of (NURTEC ODT 10:46: mouth [place] ORAL) 58 needed for Medical Other. Branch Taken for Migraine omeprazole 2022-08 Yes 40mg Take 1 Unive rs 40 mg 1-13 capsule by ity of capsule 10:46: mouth in [place] [address] the Medical morning. Branch deutetraben 2022-08 Yes 9mg Take 1 Univ ers azine 1-13 tablet by ity of (AUSTEDO) 9 10:46: mouth in [place] mg Tab 58 the Medical morning Branch and 1 tablet in the evening. metFORMIN 2022-08 Yes 500mg Take 1 Unive rs (GLUCOPHAGE 1-13 tablet by ity of ) 500 mg 10:46: mouth in [place] tablet 58 the Medical morning Branch and 1 tablet in the evening. Take with meals. simvastatin 2022-08 Yes 20mg Take 1 Univ ers (ZOCOR) 20 1-13 tablet by ity of mg tablet 10:46: mouth at [facility] 58 bedtime. Medical Branch traZODone 2022-08 Yes 100mg Take 1 Unive rs 100 mg 1-13 tablet by ity of tablet 10:46: mouth at [place] [address] bedtime. Medical Pt takes Branch 1-2 tabs at bedtime traMADoL 50 2022-08 Yes 100mg Take 2 Uni vers mg tablet 1-13 tablets by ity of 10:46: mouth in [place] [address] the Medical morning Branch and 2 tablets in the evening. sucralfate 2022-08 Yes sucralfate U nivers 1 gram - 1 gram ity of tablet 10:46: tablet [place] 58 TAKE 1 Medical TABLET BY Branch MOUTH BEFORE MEALS AND AT BEDTIME spironolact 2022-08 Yes spironolac Univers one 25 mg - tone 25 mg ity of tablet 10:46: tablet [place] 58 TAKE 1 Medical TABLET BY Branch MOUTH EVERY DAY SITagliptin 2022-08 Yes Januvia Uni vers (JANUVIA) 08-18 100 mg ity of 100 mg 10:46: tablet [place] tablet 58 TAKE 1 Medical TABLET BY Branch MOUTH EVERY DAY FOR 16 DAYS QUEtiapine 2022-08 Yes 400mg Take 1 Univ ers 400 mg 13 tablet by ity of tablet 10:46: mouth [place] 58 every Medical evening. 2 Branch hours before bedtime QUEtiapine 2022-08 Yes quetiapine U nivers 200 mg 08-18 200 mg ity of tablet 10:46: tablet [place] 58 TAKE 1 Medical TABLET BY Branch MOUTH TWICE DAILY pantoprazol 2022-08 Yes pantoprazo Univers e 40 mg EC 08-18 le 40 mg ity o f tablet 10:46: tablet,del [place] 58 ayed Medical release [place] TAKE 1 TABLET BY MOUTH EVERY DAY montelukast 2022-08 Yes montelukas Univers 10 mg 08-18 t 10 mg ity of tablet 10:46: tablet [place] 58 TAKE 1 Medical TABLET BY Branch MOUTH EVERY DAY IN THE EVENING methocarbam 2022-08 Yes methocarba Univers oL 500 mg 08-18 mol 500 mg ity of tablet 10:46: tablet [place] 58 TAKE 1 Medical TABLET BY Branch MOUTH THREE TIMES DAILY FOR 5 DAYS meloxicam 2022-08 Yes meloxicam Uni vers 15 mg 08-18 15 mg ity of tablet 10:46: tablet [place] 58 TAKE 1 Medical TABLET BY Branch MOUTH EVERY DAY losartan 50 2022-08 Yes losartan Un yan mg tablet 08-18 50 mg ity of 10:46: tablet [place] 58 TAKE 1 Medical TABLET BY Branch MOUTH TWICE DAILY levothyroxi 2022-08 Yes 200ug Take 1 Uni vers ne 200 mcg 13 tablet by ity of tablet 10:46: mouth [place] 58 every Medical morning. Branch gabapentin 2022-08 Yes gabapentin U nivers 300 mg - 300 mg ity of capsule 10:46: capsule [place] 58 TAKE 1 Medical CAPSULE BY Branch MOUTH AT BEDTIME DULoxetine 2022-08 Yes duloxetine U nivers 60 mg 1-13 60 mg ity of capsule 10:46: capsule,[place] 58 layed Medical release Branch TAKE 1 CAPSULE BY MOUTH TWICE DAILY divalproex 2022-08 Yes divalproex U nivers 500 mg EC 1-13 500 mg ity of tablet 10:46: tablet,del [place] 58 ayed Medical release Branch TAKE 1 TABLET BY MOUTH DAILY amLODIPine 2022-08 Yes 5mg Take 1 Unive rs 5 mg tablet 1-13 tablet by ity of 10:46: mouth in [place] [address] the Medical morning. Branch ALBUTEROL 2022-08 Yes as needed. Un yan INHALE 1-13 ity of 10:46: [address] Branch fluticasone 2022-08 Yes Trele Uni vers -umeclidin- 1-13 Ellipta ity o f vilanter 10:46: [place] ([facility] 58 Medical ELLIPTA) Branch 200-62.5-25 mcg DsDv hydrOXYzine 2022-08 Yes hydrOXYzin Univers 25 mg 1-13 e HCl ity of tablet 10:46: [address] Branch rimegepant 2022-08 Yes 7.5mg Take 7.5 Un yan sulfate 1-13 mg by ity of (NURTEC ODT 10:46: mouth [place] ORAL) 58 needed for Medical Other. Branch Taken for Migraine omeprazole 2022-08 Yes 40mg Take 1 Unive rs 40 mg 1-13 capsule by ity of capsule 10:46: mouth in [place] 58 the Medical morning. Branch deutetraben 2022-08 Yes 9mg Take 1 Univ ers azine 1-13 tablet by ity of (AUSTEDO) 9 10:46: mouth in [place] mg Tab 58 the Medical morning Branch and 1 tablet in the evening. acetaminoph 2022-08- No acetaminop Univers en-codeine 1-13 11-13 hen 300 ity o f 300-30 mg 08:44: 00:00 mg-codeine T [place] tablet 14 :00 30 mg Medical tablet Branch TAKE 1 TABLET BY MOUTH TWICE DAILY NEEDED acetaminoph 2022-08- No 1{tbl} Take 1 U nivers en-codeine 1-13 11-13 tablet by ity of (TYLENOL-CO 08:44: 00:00 mouth [place] DEINE #4) 14 :00 the Medical 300-60 mg morning Branch tablet and 1 tablet at noon and 1 tablet in the evening. acetaminoph 2022-08- No acetaminop [facility] en-codeine 08-18 hen 300 ity o f 300-30 mg 08:44: 00:00 mg-codeine [place] tablet 14 :00 30 mg Medical tablet Branch TAKE 1 TABLET BY MOUTH TWICE DAILY NEEDED acetaminoph 2022-08- No 1{tbl} Take 1 U nivers en-codeine 08-18 tablet by ity of (TYLENOL-CO 08:44: 00:00 mouth [place] DEINE #4) 14 :00 the Medical 300-60 mg morning Branch tablet and 1 tablet at noon and 1 tablet in the evening. traMADoL 50 2022-08- Yes 4647 50mg Take 1 Uni vers mg tablet 08-18 tablet by ity of 00:00: 05:59 mouth [place] 00 :00 every 6 Medical (six) Branch hours as needed for Pain (scale 4-6) or Pain (scale 7-10) for up to 7 days. Indication s: acute pain traMADoL 50 2022-08- Yes 4647 50mg Take 1 Uni vers mg tablet 08-18 tablet by ity of 00:00: 05:59 mouth [place] 00 :00 every 6 Medical (six) Branch hours as needed for Pain (scale 4-6) or Pain (scale 7-10) for up to 7 days. Indication s: acute pain traMADoL 50 2022-08- Yes 4647 50mg Take 1 Uni vers mg tablet 08-18 tablet by ity of 00:00: 05:59 mouth [place] 00 :00 every 6 Medical (six) Branch hours as needed for Pain (scale 4-6) or Pain (scale 7-10) for up to 7 days. Indication s: acute pain SITagliptin 2022-08 Yes Januvia Uni vers (JANUVIA) 1-07 100 mg ity of 100 mg 16:14: tablet [place] tablet 43 TAKE 1 Medical TABLET BY Branch MOUTH EVERY DAY FOR 16 DAYS metFORMIN 2023-1 Yes 500mg Take 1 Unive rs (GLUCOPHAGE 1-07 tablet by ity of ) 500 mg 16:13: mouth in [place] tablet 51 the Medical morning Branch and 1 tablet in the evening. Take with meals. simvastatin 2022-08 Yes 20mg Take 1 Univ ers (ZOCOR) 20 07 tablet by ity of mg tablet 16:13: mouth at [place] [address] bedtime. Medical Branch acetaminoph 2022-08 Yes acetaminop [facility] en-codeine 08-12 hen 300 ity of 300-30 mg 16:13: mg-codeine [place] tablet 51 30 mg Medical tablet Branch TAKE 1 TABLET BY MOUTH TWICE DAILY NEEDED traZODone 2022-08 Yes 100mg Take 1 Unive rs 100 mg 07 tablet by ity of tablet 16:13: mouth at [place] [address] bedtime. Medical Pt takes Branch 1-2 tabs at bedtime traMADoL 50 2022-08 Yes 100mg Take 2 Uni vers mg tablet 08-12 tablets by ity of 16:13: mouth in [place] [address] the Medical morning Branch and 2 tablets in the evening. sucralfate 2022-08 Yes sucralfate U nivers 1 gram 08-12 1 gram ity of tablet 16:13: tablet [place] [address] TAKE 1 Medical TABLET BY Branch MOUTH BEFORE MEALS AND AT BEDTIME spironolact 2022-08 Yes spironolac Univers one 25 mg 08-12 tone 25 mg ity of tablet 16:13: tablet [place] [address] TAKE 1 Medical TABLET BY Branch MOUTH EVERY DAY QUEtiapine 2022-08 Yes 400mg Take 1 Univ ers 400 mg 08-12 tablet by ity of tablet 16:13: mouth [place] [address] every Medical evening. 2 Branch hours before bedtime QUEtiapine 2022-08 Yes quetiapine U nivers 200 mg 07 200 mg ity of tablet 16:13: tablet [place] [address] TAKE 1 Medical TABLET BY Branch MOUTH TWICE DAILY pantoprazol 2022-08 Yes pantoprazo Univers e 40 mg EC 08-12 le 40 mg ity o f tablet 16:13: tablet,del [place] [address] ayed Medical release Branch TAKE 1 TABLET BY MOUTH EVERY DAY montelukast 2022-08 Yes montelukas Univers 10 mg 08-12 t 10 mg ity of tablet 16:13: tablet [place] [address] TAKE 1 Medical TABLET BY Branch MOUTH EVERY DAY IN THE EVENING methocarbam 2022-08 Yes methocarba Univers oL 500 mg -07 mol 500 mg ity of tablet 16:13: tablet [place] [address] TAKE 1 Medical TABLET BY Branch MOUTH THREE TIMES DAILY FOR 5 DAYS meloxicam 2022-08 Yes meloxicam Uni vers 15 mg 08-12 15 mg ity of tablet 16:13: tablet [place] [address] TAKE 1 Medical TABLET BY Branch MOUTH EVERY DAY losartan 50 2022-08 Yes losartan Un yan mg tablet 08-12 50 mg ity of 16:13: tablet [place] [address] TAKE 1 Medical TABLET BY Branch MOUTH TWICE DAILY levothyroxi 2022-08 Yes 200ug Take 1 Uni vers ne 200 mcg 07 tablet by ity of tablet 16:13: mouth [place] [address] every Medical morning. Branch gabapentin 2022-08 Yes gabapentin U nivers 300 mg 08-12 300 mg ity of capsule 16:13: capsule [place] [address] TAKE 1 Medical CAPSULE BY Branch MOUTH AT BEDTIME DULoxetine 2022-08 Yes duloxetine U nivers 60 mg 08-12 60 mg it[facility] of capsule 16:13: [place] layed Medical release [place] TAKE 1 CAPSULE BY MOUTH TWICE DAILY divalproex 2022-08 Yes divalproex U nivers 500 mg EC 08-12 500 mg ity of tablet 16:13: tablet,del [place] [address] ayed Medical release [place] TAKE 1 TABLET BY MOUTH DAILY amLODIPine 2022-08 Yes 5mg Take 1 Unive rs 5 mg tablet 08-12 tablet by ity of 16:13: mouth in [place] [address] the Medical morning. Branch acetaminoph 2022-08 Yes 1{tbl} Take 1 Un yan en-codeine 08-12 tablet by ity of (TYLENOL-CO 16:13: [place] in [place] DEINE #4) 51 the Medical 300-60 mg morning Branch tablet and 1 tablet at noon and 1 tablet in the evening. ALBUTEROL 2022-08 Yes as needed. Un yan INHALE -07 ity of 16:13: [place] [address] Medical Branch fluticasone 2022-08 Yes Trelegy Uni vers -umeclidin- 08-12 Ellipta ity o f vilanter 16:13: [place] (TRELEGY 51 Medical ELLIPTA) Branch 200-62.5-25 mcg DsDv hydrOXYzine 2022-08 Yes hydrOXYzin Univers 25 mg 1-07 e HCl ity of tablet 16:13: [place] 51 Medical Branch rimegepant 2022-08 Yes 7.5mg Take 7.5 Un yan sulfate 1-07 mg by ity of (NURTEC ODT 16:13: mouth [place] ORAL) 51 needed for Medical Other. Branch Taken for Migraine omeprazole 2022-08 Yes 40mg Take 1 Unive rs 40 mg 1-07 capsule by ity of capsule 16:13: mouth in [place] 51 the Medical morning. Branch deutetraben 2022-08 Yes 9mg Take 1 Univ ers azine 1-07 tablet by ity of (AUSTEDO) 9 16:13: mouth [place] mg Tab 51 the Medical morning Branch and 1 tablet in the evening. Clobetasol Clobetasol 2022-08 No 1{appli BID Clobetasol Propionate Propionate 1-03 cation} Propionate 0.05 % 0.05 % 00:00: 0.05 % 00 Levothyroxi Levothyroxi 2022-08 No QD Levothyrox ne Sodium ne Sodium 0-25 ine Sodium 25 MCG 25 MCG 00:00: 25 MCG 00 Levothyroxi Levothyroxi 2022-08 No QD Levothyrox ne Sodium ne Sodium 0-25 ine Sodium 25 MCG 25 MCG 00:00: 25 MCG 00 Levothyroxi Levothyroxi 2022-08 No QD Levothyrox ne Sodium ne Sodium 0-25 ine Sodium 25 MCG 25 MCG 00:00: 25 MCG 00 metFORMIN 2022-08 Yes 500mg Take 1 Unive rs (GLUCOPHAGE 0-18 tablet by ity of ) 500 mg 14:19: mouth in [place] tablet 54 the Medical morning Branch and 1 tablet in the evening. Take with meals. simvastatin 2022-08 Yes 20mg Take 1 Univ ers (ZOCOR) 20 0-18 tablet by ity of mg tablet 14:19: mouth at [place] [address] bedtime. Medical Branch traZODone 2022-08 Yes 100mg Take 1 Unive rs 100 mg 0-18 tablet by ity of tablet 14:19: mouth at [place] [address] bedtime. Medical Pt takes Branch 1-2 tabs at bedtime traMADoL 50 2022-08 Yes 100mg Take 2 Uni vers mg tablet 0-18 tablets by ity of 14:19: mouth in [place] [address] the Medical morning Branch and 2 tablets in the evening. sucralfate 2022-08 Yes sucralfate U nivers 1 gram 0-18 1 gram ity of tablet 14:19: tablet [place] 54 TAKE 1 Medical TABLET BY Branch MOUTH BEFORE MEALS AND AT BEDTIME spironolact 2022-08 Yes spironolac Univers one 25 mg 0-18 tone 25 mg ity of tablet 14:19: tablet [place] 54 TAKE 1 Medical TABLET BY Branch MOUTH EVERY DAY SITagliptin 2022-08 Yes Januvia Uni vers (JANUVIA) 0-18 100 mg ity of 100 mg 14:19: tablet [place] tablet 54 TAKE 1 Medical TABLET BY Branch MOUTH EVERY DAY FOR 16 DAYS QUEtiapine 2022-08 Yes 400mg Take 1 Univ ers 400 mg 0-18 tablet by ity of tablet 14:19: mouth [place] [address] every Medical evening. 2 Branch hours before bedtime QUEtiapine 2022-08 Yes quetiapine U nivers 200 mg 0-18 200 mg ity of tablet 14:19: tablet [place] [address] TAKE 1 Medical TABLET BY Branch MOUTH TWICE DAILY pantoprazol 2022-08 Yes pantoprazo Univers e 40 mg EC 0-18 le 40 mg ity o f tablet 14:19: tablet,del [place] [address] ayed Medical release [place] TAKE 1 TABLET BY MOUTH EVERY DAY montelukast 2022-08 Yes montelukas Univers 10 mg 0-18 t 10 mg ity of tablet 14:19: tablet [place] [address] TAKE 1 Medical TABLET BY Branch MOUTH EVERY DAY IN THE EVENING methocarbam 2022-08 Yes methocarba Univers oL 500 mg 0-18 mol 500 mg ity of tablet 14:19: tablet [place] [address] TAKE 1 Medical TABLET BY Branch MOUTH THREE TIMES DAILY FOR 5 DAYS meloxicam 2022-08 Yes meloxicam Uni vers 15 mg 0-18 15 mg ity of tablet 14:19: tablet [place] [address] TAKE 1 Medical TABLET BY Branch MOUTH EVERY DAY rimegepant 2022-08 Yes 7.5mg Take 7.5 Un yan sulfate 0-18 mg by ity of (NURTEC ODT 14:19: mouth [place] ORAL) 54 needed for Medical Other. Branch Taken for Migraine omeprazole 2022-08 Yes 40mg Take 1 Unive rs 40 mg 0-18 capsule by ity of capsule 14:19: mouth in [place] [address] the Medical morning. Branch metFORMIN 2022-08 Yes 500mg Take 1 Unive rs (GLUCOPHAGE 0-18 tablet by ity of ) 500 mg 14:19: mouth in [facility] 54 the Medical morning Branch and 1 tablet in the evening. Take with meals. simvastatin 2022-08 Yes 20mg Take 1 Univ ers (ZOCOR) 20 0-18 tablet by ity of mg tablet 14:19: mouth at [place] [address] bedtime. Medical Branch traZODone 2022-08 Yes 100mg Take 1 Unive rs 100 mg 0-18 tablet by ity of tablet 14:19: mouth at [place] [address] bedtime. Medical Pt takes Branch 1-2 tabs at bedtime traMADoL 50 2022-08 Yes 100mg Take 2 Uni vers mg tablet 0-18 tablets by ity of 14:19: mouth in [place] [address] the Medical morning Branch and 2 tablets in the evening. sucralfate 2022-08 Yes sucralfate U nivers 1 gram 0-18 1 gram ity of tablet 14:19: tablet [place] [address] TAKE 1 Medical TABLET BY Branch MOUTH BEFORE MEALS AND AT BEDTIME spironolact 2022-08 Yes spironolac Univers one 25 mg 0-18 tone 25 mg ity of tablet 14:19: tablet [place] [address] TAKE 1 Medical TABLET BY Branch MOUTH EVERY DAY SITagliptin 2022-08 Yes Januvia Uni vers (JANUVIA) 0-18 100 mg ity of 100 mg 14:19: tablet [facility] 54 TAKE 1 Medical TABLET BY Branch MOUTH EVERY DAY FOR 16 DAYS QUEtiapine 2022-08 Yes 400mg Take 1 Univ ers 400 mg 0-18 tablet by ity of tablet 14:19: mouth [place] [address] every Medical evening. 2 Branch hours before bedtime QUEtiapine 2022-08 Yes quetiapine U nivers 200 mg 0-18 200 mg ity of tablet 14:19: tablet [place] [address] TAKE 1 Medical TABLET BY Branch MOUTH TWICE DAILY pantoprazol 2022-08 Yes pantoprazo Univers e 40 mg EC 0-18 le 40 mg ity o f tablet 14:19: tablet,del [place] [address] ayed Medical release Branch TAKE 1 TABLET BY MOUTH EVERY DAY montelukast 2022-08 Yes montelukas Univers 10 mg 0-18 t 10 mg ity of tablet 14:19: tablet [place] [address] TAKE 1 Medical TABLET BY Branch MOUTH EVERY DAY IN THE EVENING methocarbam 2022-08 Yes methocarba Univers oL 500 mg 0-18 mol 500 mg ity of tablet 14:19: tablet [place] [address] TAKE 1 Medical TABLET BY Branch MOUTH THREE TIMES DAILY FOR 5 DAYS meloxicam 2022-08 Yes meloxicam Uni vers 15 mg 0-18 15 mg ity of tablet 14:19: tablet [place] [address] TAKE 1 Medical TABLET BY Branch MOUTH EVERY DAY rimegepant 2022-08 Yes 7.5mg Take 7.5 Un yan sulfate 0-18 mg by ity of (NURTEC ODT 14:19: [place] ORAL[place] 54 needed for Medical Other. Branch Taken for Migraine omeprazole 2022-08 Yes 40mg Take 1 Unive rs 40 mg 0-18 capsule by ity of capsule 14:19: mouth in [place] [address] the Medical morning. Branch metFORMIN 2022-08 Yes 500mg Take 1 Unive rs (GLUCOPHAGE 0-18 tablet by ity of ) 500 mg 14:19: mouth in [place] [address] the Medical morning Branch and 1 tablet in the evening. Take with meals. simvastatin 2022-08 Yes 20mg Take 1 Univ ers (ZOCOR) 20 0-18 tablet by ity of mg tablet 14:19: mouth at [place] [address] bedtime. Medical Branch traZODone 2022-08 Yes 100mg Take 1 Unive rs 100 mg 0-18 tablet by ity of tablet 14:19: mouth at [place] [address] bedtime. Medical Pt takes Branch 1-2 tabs at bedtime traMADoL 50 2022-08 Yes 100mg Take 2 Uni vers mg tablet 0-18 tablets by ity of 14:19: mouth in [place] [address] the Medical morning Branch and 2 tablets in the evening. sucralfate 2022-08 Yes sucralfate U nivers 1 gram 0-18 1 gram ity of tablet 14:19: tablet [place] [address] TAKE 1 Medical TABLET BY Branch MOUTH BEFORE MEALS AND AT BEDTIME spironolact 2022-08 Yes spironolac Univers one 25 mg 0-18 tone 25 mg ity of tablet 14:19: tablet [place] [address] TAKE 1 Medical TABLET BY Branch MOUTH EVERY DAY SITagliptin 2022-08 Yes Januvia Uni vers (JANUVIA) 0-18 100 mg ity of 100 mg 14:19: tablet [place] tablet 54 TAKE 1 Medical TABLET BY Branch MOUTH EVERY DAY FOR 16 DAYS QUEtiapine 2022-08 Yes 400mg Take 1 Univ ers 400 mg 0-18 tablet by ity of tablet 14:19: mouth [place] 54 every Medical evening. 2 Branch hours before bedtime QUEtiapine 2022-08 Yes quetiapine U nivers 200 mg 0-18 200 mg ity of tablet 14:19: tablet [place] 54 TAKE 1 Medical TABLET BY Branch MOUTH TWICE DAILY pantoprazol 2022-08 Yes pantoprazo Univers e 40 mg EC 0-18 le 40 mg ity o f tablet 14:19: tablet,del [place] 54 ayed Medical release [place] TAKE 1 TABLET BY MOUTH EVERY DAY montelukast 2022-08 Yes montelukas Univers 10 mg 0-18 t 10 mg ity of tablet 14:19: tablet [place] 54 TAKE 1 Medical TABLET BY Branch MOUTH EVERY DAY IN THE EVENING methocarbam 2022-08 Yes methocarba Univers oL 500 mg 0-18 mol 500 mg ity of tablet 14:19: tablet [place] 54 TAKE 1 Medical TABLET BY Branch MOUTH THREE TIMES DAILY FOR 5 DAYS meloxicam 2022-08 Yes meloxicam Uni vers 15 mg 0-18 15 mg ity of tablet 14:19: tablet [place] 54 TAKE 1 Medical TABLET BY Branch MOUTH EVERY DAY rimegepant 2022-08 Yes 7.5mg Take 7.5 Un yan sulfate 0-18 mg by ity of (NURTEC ODT 14:19: mouth [place] ORAL) 54 needed for Medical Other. Branch Taken for Migraine omeprazole 2022-08 Yes 40mg Take 1 Unive rs 40 mg 0-18 capsule by ity of capsule 14:19: mouth in [place] 54 the Medical morning. Branch losartan 50 2022-08 Yes losartan Un yan mg tablet 0-18 50 mg ity of 14:18: tablet [place] 26 TAKE 1 Medical TABLET BY Branch MOUTH TWICE DAILY levothyroxi 2022-08 Yes 200ug Take 1 Uni vers ne 200 mcg 0-18 tablet by ity of tablet 14:18: mouth [place] 26 every Medical morning. Branch gabapentin 2022-08 Yes gabapentin U nivers 300 mg 0-18 300 mg ity of capsule 14:18: capsule [place] 26 TAKE 1 Medical CAPSULE BY Branch MOUTH AT BEDTIME DULoxetine 2022-08 Yes duloxetine U nivers 60 mg 0-18 60 mg ity of capsule 14:18: [place] layed Medical release Branch TAKE 1 CAPSULE BY MOUTH TWICE DAILY divalproex 2022-08 Yes divalproex U nivers 500 mg EC 0-18 500 mg ity of tablet 14:18: tablet,del [place] ayed Medical release Branch TAKE 1 TABLET BY MOUTH DAILY amLODIPine 2022-08 Yes 5mg Take 1 Unive rs 5 mg tablet 0-18 tablet by ity of 14:18: mouth in [place] [address] the Medical morning. Branch acetaminoph 2022-08 Yes 1{tbl} Take 1 Un yan en-codeine 0-18 tablet by ity of (TYLENOL-CO 14:18: mouth in [place] DEINE #4) 26 the Medical 300-60 mg morning Branch tablet and 1 tablet at noon and 1 tablet in the evening. ALBUTEROL 2022-08 Yes as needed. Un yan INHALE 0-18 ity of 14:18: [address] fluticasone 2022-08 Yes Trelegy Uni vers -umeclidin- 0-18 Ellipta ity o f vilanter 14:18: [place] (TRELEGY 26 Medical ELLIPTA) Branch 200-62.5-25 mcg DsDv hydrOXYzine 2022-08 Yes hydrOXYzin Univers 25 mg 0-18 e HCl ity of tablet 14:18: [address] deutetraben 2022-08 Yes 9mg Take 1 Univ ers azine 0-18 tablet by ity of (AUSTEDO) 9 14:18: mouth [place] mg Tab the Medical morning Branch and 1 tablet in the evening. losartan 50 2022-08 Yes losartan Un yan mg tablet 0-18 50 mg ity of 14:18: tablet TAKE 1 Medical TABLET BY Branch MOUTH TWICE DAILY levothyroxi 2022-08 Yes 200ug Take 1 Uni vers ne 200 mcg 0-18 tablet by ity of tablet 14:18: mouth every Medical morning. Branch gabapentin 2022-08 Yes gabapentin U nivers 300 mg 0-18 300 mg ity of capsule 14:18: [place] TAKE 1 Medical CAPSULE BY Branch MOUTH AT BEDTIME DULoxetine 2022-08 Yes duloxetine U nivers 60 mg 0-18 60 mg ity of capsule 14:18: [place] Medical release Branch TAKE 1 CAPSULE BY MOUTH TWICE DAILY divalproex 2022-08 Yes divalproex U nivers 500 mg EC 0-18 500 mg ity of tablet 14:18: tablet,del [place] [address] ay Medical release Branch TAKE 1 TABLET BY MOUTH DAILY amLODIPine 2022-08 Yes 5mg Take 1 Unive rs 5 mg tablet 0-18 tablet by ity of 14:18: mouth in [place] [address] the Medical morning. Branch acetaminoph 2022-08 Yes 1{tbl} Take 1 Un yan en-codeine 0-18 tablet by ity of (TYLENOL-CO 14:18: mouth in [place] DEINE #4) 26 the Medical 300-60 mg morning Branch tablet and 1 tablet at noon and 1 tablet in the evening. ALBUTEROL 2022-08 Yes as needed. Un yan INHALE 0-18 ity of 14:18: [place] [address] Medical Branch fluticasone 2022-08 Yes Trelegy Uni vers -umeclidin- 0-18 Ellipta ity o f vilanter 14:18: [place] (TRELEGY 26 Medical ELLIPTA) Branch 200-62.5-25 mcg DsDv hydrOXYzine 2022-08 Yes hydrOXYzin Univers 25 mg 0-18 e HCl ity of tablet 14:18: [address] deutetraben 2022-08 Yes 9mg Take 1 Univ ers azine 0-18 tablet by ity of (AUSTEDO) 9 14:18: mouth [place] mg Tab 26 the Medical morning Branch and 1 tablet in the evening. losartan 50 2022-08 Yes losartan Un yan mg tablet 0-18 50 mg ity of 14:18: tablet TAKE 1 Medical TABLET BY Branch MOUTH TWICE DAILY levothyroxi 2022-08 Yes 200ug Take 1 Uni vers ne 200 mcg 0-18 tablet by ity of tablet 14:18: mouth [place] [address] every Medical morning. Branch gabapentin 2022-08 Yes gabapentin U nivers 300 mg 0-18 300 mg ity of capsule 14:18: [place] TAKE 1 Medical CAPSULE BY Branch MOUTH AT BEDTIME DULoxetine 2022-08 Yes duloxetine U nivers 60 mg 0-18 60 mg ity of capsule 14:18: [place] [facility] Medical release Branch TAKE 1 CAPSULE BY MOUTH TWICE DAILY divalproex 2022-08 Yes divalproex U nivers 500 mg EC 0-18 500 mg ity of tablet 14:18: tablet,del [place] [address] ayed Medical release Branch TAKE 1 TABLET BY MOUTH DAILY amLODIPine 2022-08 Yes 5mg Take 1 Unive rs 5 mg tablet 0-18 tablet by ity of 14:18: mouth in [place] [address] the Medical morning. Branch acetaminoph 2022-08 Yes 1{tbl} Take 1 Un yan en-codeine 0-18 tablet by ity of (TYLENOL-CO 14:18: mouth in [place] DEINE #4) 26 the Medical 300-60 mg morning Branch tablet and 1 tablet at noon and 1 tablet in the evening. ALBUTEROL 2022-08 Yes as needed. Un yan INHALE 0-18 ity of 14:18: [address] fluticasone 2022-08 Yes Trelegy Uni vers -umeclidin- 0-18 Ellipta ity o f vilanter 14:18: [place] ([facility] 26 Medical ELLIPTA) Branch 200-62.5-25 mcg DsDv hydrOXYzine 2022-08 Yes hydrOXYzin Univers 25 mg 0-18 e HCl ity of tablet 14:18: [address] deutetraben 2022-08 Yes 9mg Take 1 Univ ers azine 0-18 tablet by ity of (AUSTEDO) 9 14:18: mouth [place] mg Tab 26 the Medical morning Branch and 1 tablet in the evening. ALBUTEROL Yes as needed. Un yan INHALE 9- ity of 15:01: [address] fluticasone Yes Trelegy Uni vers -umeclidin- - Ellipta ity o f vilanter 15:01: [place] (TRELEGY 25 Medical ELLIPTA) Branch 200-62.5-25 mcg DsDv hydrOXYzine Yes hydrOXYzin Univers 25 mg 9-26 e HCl ity of tablet 15:01: [address] ALBUTEROL Yes as needed. Un yan INHALE - ity of 15:01: [address] fluticasone Yes Trelegy Uni vers -umeclidin- 9-26 Ellipta ity o f vilanter 15:01: [place] (TRELEGY 25 Medical ELLIPTA) Branch 200-62.5-25 mcg DsDv hydrOXYzine 2022- Yes hydrOXYzin Univers 25 mg 9-26 e HCl ity of tablet 15:01: [address] Branch ALBUTEROL 2022-0 Yes as needed. Un yan INHALE - ity of 15:01: [address] Branch fluticasone 0 Yes Trelegy Uni vers -umeclidin- -26 Ellipta ity o f vilanter 15:01: [place] (TRELEGY 25 Medical ELLIPTA) Branch 200-62.5-25 mcg DsDv hydrOXYzine 2022- Yes hydrOXYzin Univers 25 mg -26 e HCl ity of tablet 15:01: [address] Branch omeprazole 2022-0 Yes 40mg Take 1 Unive rs 40 mg 9-26 capsule by ity of capsule 15:00: mouth in [place] [address] the Medical morning. Branch deutetraben 2022-0 Yes 9mg Take 1 Univ ers azine 9-26 tablet by ity of (AUSTEDO) 9 15:00: mouth in [place] mg Tab 46 the Medical morning Branch and 1 tablet in the evening. omeprazole 3-0 Yes 40mg Take 1 Unive rs 40 mg 9-26 capsule by ity of capsule 15:00: mouth in [place] [address] the Medical morning. Branch deutetraben 2022-0 Yes 9mg Take 1 Univ ers azine 9-26 tablet by ity of (AUSTEDO) 9 15:00: mouth in [place] mg Tab 46 the Medical morning Branch and 1 tablet in the evening. omeprazole 3-0 Yes 40mg Take 1 Unive rs 40 mg 9-26 capsule by ity of capsule 15:00: mouth in [place] [address] the Medical morning. Branch deutetraben 3-0 Yes 9mg Take 1 Univ ers azine 9-26 tablet by ity of (AUSTEDO) 9 15:00: mouth in [place] mg Tab 46 the Medical morning Branch and 1 tablet in the evening. pantoprazol 2022-0 Yes pantoprazo Univers e 40 mg EC 9-26 le 40 mg ity o f tablet 14:59: tablet,del [place] 07 ayed Medical release Branch TAKE 1 TABLET BY MOUTH EVERY DAY rimegepant 2022-0 Yes 7.5mg Take 7.5 Un yan sulfate 9-26 [facility] 14:[facility]: mouth [place] ORAL[place] 07 needed for Medical Other. Branch Taken for Migraine pantoprazol Yes pantoprazo Univers e 40 mg EC 9-26 le 40 mg ity o f tablet 14:59: tablet,[address] Medical release Branch TAKE 1 TABLET BY MOUTH EVERY DAY rimegepant 2022-0 Yes 7.5mg Take 7.5 Un yan sulfate 9-26 mg by [facility]y of [facility] 14:59: mouth [place] ORAL[place] 07 needed for Medical Other. Branch Taken for Migraine pantoprazol Yes pantoprazo Univers e 40 mg EC 9-26 le 40 mg ity o f tablet 14:59: tablet,[address] Medical release Branch TAKE 1 TABLET BY MOUTH EVERY DAY pantoprazol Yes pantoprazo Univers e 40 mg EC 9-26 le 40 mg ity o f tablet 14:59: tablet,[address] Medical release Branch TAKE 1 TABLET BY MOUTH EVERY DAY rimegepant 0 Yes 7.5mg Take 7.5 Un yan sulfate 9-26 mg by [facility]y [facility] 14:59: mouth [place] ORAL[place] 07 needed for Medical Other. Branch Taken for Migraine metFORMIN 2022-0 Yes 500mg Take 1 Unive rs (GLUCOPHAGE 9-26 tablet by ity of ) 500 mg 14:51: mouth in [place] tablet 12 the Medical morning Branch and 1 tablet in the evening. Take with meals. simvastatin 0 Yes 20mg Take 1 Univ ers (ZOCOR) 20 9-26 tablet by ity of mg tablet 14:51: [place] bed[place]. Medical Branch acetaminoph 0 Yes acetaminop Univers en-codeine 9-26 hen 300 ity of 300-30 mg 14:51: mg-codeine [place] tablet 12 30 mg Medical tablet Branch TAKE 1 TABLET BY MOUTH TWICE DAILY NEEDED traZODone 2022-0 Yes 100mg Take 1 Unive rs 100 mg 9-26 tablet by ity of tablet 14:51: mouth at [place] [address] bedtime. Medical Pt takes Branch 1-2 tabs at bedtime traMADoL 50 Yes 100mg Take 2 Uni vers mg tablet -26 tablets by ity of 14:51: mouth in [place] 12 the Medical morning Branch and 2 tablets in the evening. sucralfate 0 Yes sucralfate U nivers 1 gram 05-01 1 gram ity of tablet 14:51: tablet [place] 12 TAKE 1 Medical TABLET BY Branch MOUTH BEFORE MEALS AND AT BEDTIME spironolact 0 Yes spironolac Univers one 25 mg 05-01 tone 25 mg ity of tablet 14:51: tablet [place] 12 TAKE 1 Medical TABLET BY Branch MOUTH EVERY DAY SITagliptin Yes Januvia Uni vers (JANUVIA) 05-01 100 mg ity of 100 mg 14:51: tablet [place] tablet 12 TAKE 1 Medical TABLET BY Branch MOUTH EVERY DAY FOR 16 DAYS QUEtiapine Yes 400mg Take 1 Univ ers 400 mg 05-01 tablet by ity of tablet 14:51: mouth [place] 12 every Medical evening. 2 Branch hours before bedtime QUEtiapine Yes quetiapine U nivers 200 mg 05-01 200 mg ity of tablet 14:51: tablet [place] [address] TAKE 1 Medical TABLET BY Branch MOUTH TWICE DAILY montelukast Yes montelukas Univers 10 mg 05-01 t 10 mg ity of tablet 14:51: tablet [place] 12 TAKE 1 Medical TABLET BY Branch MOUTH EVERY DAY IN THE EVENING methocarbam Yes methocarba Univers oL 500 mg 05-01 mol 500 mg ity of tablet 14:51: tablet [place] 12 TAKE 1 Medical TABLET BY Branch MOUTH THREE TIMES DAILY FOR 5 DAYS meloxicam Yes meloxicam Uni vers 15 mg 05-01 15 mg ity of tablet 14:51: tablet [place] [address] TAKE 1 Medical TABLET BY Branch MOUTH EVERY DAY losartan 50 0 Yes losartan Un yan mg tablet 05-01 50 mg ity of 14:51: tablet [place] 12 TAKE 1 Medical TABLET BY Branch MOUTH TWICE DAILY levothyroxi 0 Yes 200ug Take 1 Uni vers ne 200 mcg - tablet by ity of tablet 14:51: mouth [place] 12 every Medical morning. Branch gabapentin 0 Yes gabapentin U nivers 300 mg 9-26 300 mg ity of capsule 14:51: capsule [place] [address] TAKE 1 Medical CAPSULE BY Branch MOUTH AT BEDTIME DULoxetine 2022-0 Yes duloxetine U nivers 60 mg 05-01 60 mg ity of capsule 14:51: [place] 12 layed Medical release Branch TAKE 1 CAPSULE BY MOUTH TWICE DAILY divalproex 2022-0 Yes divalproex U nivers 500 mg EC -26 500 mg ity of tablet 14:51: tablet,del [place] 12 ayed Medical release Branch TAKE 1 TABLET BY MOUTH DAILY amLODIPine 0 Yes 5mg Take 1 Unive rs 5 mg tablet - tablet by ity of 14:51: mouth in [place] [address] the Medical morning. Branch acetaminoph Yes 1{tbl} Take 1 Un yan en-codeine 9-26 tablet by ity of (TYLENOL-CO 14:51: mouth in [place] DE[place] #4) 12 the Medical 300-60 mg morning Branch tablet and 1 tablet at noon and 1 tablet in the evening. metFORMIN 0 Yes 500mg Take 1 Unive rs (GLUCOPHAGE 9-26 tablet by ity of ) 500 mg 14:51: mouth in [facility] 12 the Medical morning Branch and 1 tablet in the evening. Take with meals. simvastatin 0 Yes 20mg Take 1 Univ ers (ZOCOR) 20 - tablet by ity of mg tablet 14:51: mouth at [facility] 12 bedtime. Medical Branch acetaminoph Yes acetaminop Univers en-codeine - hen 300 ity of 300-30 mg 14:51: mg-codeine [place] tablet 12 30 mg Medical tablet Branch TAKE 1 TABLET BY MOUTH TWICE DAILY NEEDED traZODone 2022-0 Yes 100mg Take 1 Unive rs 100 mg -26 tablet by ity of tablet 14:51: mouth at [place] [address] bedtime. Medical Pt takes Branch 1-2 tabs at bedtime traMADoL 50 2022-0 Yes 100mg Take 2 Uni vers mg tablet 9-26 tablets by ity of 14:51: mouth in [place] [address] the Medical morning Branch and 2 tablets in the evening. sucralfate 2022-0 Yes sucralfate U nivers 1 gram -26 1 gram ity of tablet 14:51: tablet [place] 12 TAKE 1 Medical TABLET BY Branch MOUTH BEFORE MEALS AND AT BEDTIME spironolact Yes spironolac Univers one 25 mg 05-01 tone 25 mg ity of tablet 14:51: tablet [place] 12 TAKE 1 Medical TABLET BY Branch MOUTH EVERY DAY SITagliptin Yes Januvia Uni vers (JANUVIA) 05-01 100 mg ity of 100 mg 14:51: tablet [place] tablet 12 TAKE 1 Medical TABLET BY Branch MOUTH EVERY DAY FOR 16 DAYS QUEtiapine Yes 400mg Take 1 Univ ers 400 mg 05-01 tablet by ity of tablet 14:51: mouth [place] 12 every Medical evening. 2 Branch hours before bedtime QUEtiapine Yes quetiapine U nivers 200 mg 05-01 200 mg ity of tablet 14:51: tablet [place] 12 TAKE 1 Medical TABLET BY Branch MOUTH TWICE DAILY montelukast Yes montelukas Univers 10 mg 05-01 t 10 mg ity of tablet 14:51: tablet [place] [address] TAKE 1 Medical TABLET BY Branch MOUTH EVERY DAY IN THE EVENING methocarbam Yes methocarba Univers oL 500 mg 05-01 mol 500 mg ity of tablet 14:51: tablet [place] 12 TAKE 1 Medical TABLET BY Branch MOUTH THREE TIMES DAILY FOR 5 DAYS meloxicam Yes meloxicam Uni vers 15 mg 05-01 15 mg ity of tablet 14:51: tablet [place] 12 TAKE 1 Medical TABLET BY Branch MOUTH EVERY DAY losartan 50 Yes losartan Un yan mg tablet 05-01 50 mg ity of 14:51: tablet [place] 12 TAKE 1 Medical TABLET BY Branch MOUTH TWICE DAILY levothyroxi Yes 200ug Take 1 Uni vers ne 200 mcg 05-01 tablet by ity of tablet 14:51: mouth [place] 12 every Medical morning. Branch gabapentin Yes gabapentin U nivers 300 mg 05-01 300 mg ity of capsule 14:51: capsule [place] 12 TAKE 1 Medical CAPSULE BY Branch MOUTH AT BEDTIME DULoxetine Yes duloxetine U nivers 60 mg 05-01 60 mg ity of capsule 14:51: capsule,de [place] 12 layed Medical release Branch TAKE 1 CAPSULE BY MOUTH TWICE DAILY divalproex Yes divalproex U nivers 500 mg EC 9- 500 mg ity of tablet 14:51: tablet,del [place] 12 ayed Medical release Branch TAKE 1 TABLET BY MOUTH DAILY amLODIPine 2022-0 Yes 5mg Take 1 Unive rs 5 mg tablet 05-01 tablet by ity of 14:51: mouth in [place] [address] the Medical morning. Branch acetaminoph 0 Yes 1{tbl} Take 1 Un yan en-codeine - tablet by ity of (TYLENOL-CO 14:51: mouth in [place] DEINE #4[place] 12 the Medical 300-60 mg morning Branch tablet and 1 tablet at noon and 1 tablet in the evening. metFORMIN 2022-0 Yes 500mg Take 1 Unive rs (GLUCOPHAGE 9- tablet by ity of ) 500 mg 14:51: mouth in [facility] 12 the Medical morning Branch and 1 tablet in the evening. Take with meals. simvastatin 0 Yes 20mg Take 1 Univ ers (ZOCOR) 20 05-01 tablet by ity of mg tablet 14:51: mouth at [place] [address] bedtime. Medical Branch acetaminoph Yes acetaminop Univers en-codeine - hen 300 ity of 300-30 mg 14:51: mg-codeine [place] tablet 12 30 mg Medical tablet Branch TAKE 1 TABLET BY MOUTH TWICE DAILY NEEDED traZODone 2022-0 Yes 100mg Take 1 Unive rs 100 mg 05-01 tablet by ity of tablet 14:51: mouth at [place] [address] bedtime. Medical Pt takes Branch 1-2 tabs at bedtime traMADoL 50 2022-0 Yes 100mg Take 2 Uni vers mg tablet 05-01 tablets by ity of 14:51: mouth in [place] [address] the Medical morning Branch and 2 tablets in the evening. sucralfate 0 Yes sucralfate U nivers 1 gram 05-01 1 gram ity of tablet 14:51: tablet [place] [address] TAKE 1 Medical TABLET BY Branch MOUTH BEFORE MEALS AND AT BEDTIME spironolact 2022-0 Yes spironolac Univers one 25 mg 05-01 tone 25 mg ity of tablet 14:51: tablet [place] [address] TAKE 1 Medical TABLET BY Branch MOUTH EVERY DAY SITagliptin 2022-0 Yes Januvia Uni vers (JANUVIA) - 100 mg ity of 100 mg 14:51: tablet [place] tablet 12 TAKE 1 Medical TABLET BY Branch MOUTH EVERY DAY FOR 16 DAYS QUEtiapine 0 Yes 400mg Take 1 Univ ers 400 mg - tablet by ity of tablet 14:51: mouth [place] 12 every Medical evening. 2 Branch hours before bedtime QUEtiapine 0 Yes quetiapine U nivers 200 mg 05-01 200 mg ity of tablet 14:51: tablet [place] 12 TAKE 1 Medical TABLET BY Branch MOUTH TWICE DAILY montelukast 0 Yes montelukas Univers 10 mg - t 10 mg ity of tablet 14:51: tablet [place] 12 TAKE 1 Medical TABLET BY Branch MOUTH EVERY DAY IN THE EVENING methocarbam Yes methocarba Univers oL 500 mg 05-01 mol 500 mg ity of tablet 14:51: tablet [place] 12 TAKE 1 Medical TABLET BY Branch MOUTH THREE TIMES DAILY FOR 5 DAYS meloxicam Yes meloxicam Uni vers 15 mg 05-01 15 mg ity of tablet 14:51: tablet [place] 12 TAKE 1 Medical TABLET BY Branch MOUTH EVERY DAY losartan 50 0 Yes losartan Un yan mg tablet 05-01 50 mg ity of 14:51: tablet [place] [address] TAKE 1 Medical TABLET BY Branch MOUTH TWICE DAILY levothyroxi Yes 200ug Take 1 Uni vers ne 200 mcg 05-01 tablet by ity of tablet 14:51: mouth [place] 12 every Medical morning. [place] gabapentin Yes gabapentin U nivers 300 mg 05-01 300 mg ity of capsule 14:51: capsule [place] 12 TAKE 1 Medical CAPSULE BY Branch MOUTH AT BEDTIME DULoxetine Yes duloxetine U nivers 60 mg 05-01 60 mg ity of capsule 14:51: [place] 12 layed Medical release [place] TAKE 1 CAPSULE BY MOUTH TWICE DAILY divalproex Yes divalproex U nivers 500 mg EC 05-01 500 mg ity of tablet 14:51: tablet,del [place] 12 ayed Medical release [place] TAKE 1 TABLET BY MOUTH DAILY amLODIPine 0 Yes 5mg Take 1 Unive rs 5 mg tablet 05-01 tablet by ity of 14:51: mouth in [place] 12 the Medical morning. [place] acetaminoph Yes 1{tbl} Take 1 Un yan en-codeine 9-26 tablet by ity of (TYLENOL-CO 14:51: mouth in [place] DE[place] #4[place] 12 the Medical 300-60 mg morning Branch tablet and 1 tablet at noon and 1 tablet in the evening. metFORMIN 2022-0 Yes 500mg Take 1 Unive rs (GLUCOPHAGE 9-26 tablet by ity of ) 500 mg 14:51: mouth in [place] tablet 12 the Medical morning Branch and 1 tablet in the evening. Take with meals. simvastatin 2022-0 Yes 20mg Take 1 Univ ers (ZOCOR) 20 9-26 tablet by ity of mg tablet 14:51: mouth at [place] [address] bedtime. Medical Branch acetaminoph 2022-0 Yes acetaminop Univers en-codeine - hen 300 ity of 300-30 mg 14:51: mg-codeine [place] tablet 12 30 mg Medical tablet Branch TAKE 1 TABLET BY MOUTH TWICE DAILY NEEDED traZODone 2022-0 Yes 100mg Take 1 Unive rs 100 mg - tablet by ity of tablet 14:51: mouth at [place] [address] bedtime. Medical Pt takes Branch 1-2 tabs at bedtime traMADoL 50 2022-0 Yes 100mg Take 2 Uni vers mg tablet 9-26 tablets by ity of 14:51: mouth in [place] 12 the Medical morning Branch and 2 tablets in the evening. sucralfate 2022-0 Yes sucralfate U nivers 1 gram 05-01 1 gram ity of tablet 14:51: tablet [place] 12 TAKE 1 Medical TABLET BY Branch MOUTH BEFORE MEALS AND AT BEDTIME spironolact 2022-0 Yes spironolac Univers one 25 mg 05-01 tone 25 mg ity of tablet 14:51: tablet [place] 12 TAKE 1 Medical TABLET BY Branch MOUTH EVERY DAY SITagliptin 2022-0 Yes Januvia Uni vers (JANUVIA) 9-26 100 mg ity of 100 mg 14:51: tablet [place] tablet 12 TAKE 1 Medical TABLET BY Branch MOUTH EVERY DAY FOR 16 DAYS QUEtiapine 3-0 Yes 400mg Take 1 Univ ers 400 mg 9-26 tablet by ity of tablet 14:51: mouth [place] 12 every Medical evening. 2 Branch hours before bedtime QUEtiapine 3-0 Yes quetiapine U nivers 200 mg -26 200 mg ity of tablet 14:51: tablet [place] 12 TAKE 1 Medical TABLET BY Branch MOUTH TWICE DAILY montelukast Yes montelukas Univers 10 mg 05-01 t 10 mg ity of tablet 14:51: tablet [place] [address] TAKE 1 Medical TABLET BY Branch MOUTH EVERY DAY IN THE EVENING methocarbam Yes methocarba Univers oL 500 mg 05-01 mol 500 mg ity of tablet 14:51: tablet [place] [address] TAKE 1 Medical TABLET BY Branch MOUTH THREE TIMES DAILY FOR 5 DAYS meloxicam Yes meloxicam Uni vers 15 mg 05-01 15 mg ity of tablet 14:51: tablet [place] [address] TAKE 1 Medical TABLET BY Branch MOUTH EVERY DAY losartan 50 Yes losartan Un yan mg tablet 05-01 50 mg ity of 14:51: tablet [place] [address] TAKE 1 Medical TABLET BY Branch MOUTH TWICE DAILY levothyroxi Yes 200ug Take 1 Uni vers ne 200 mcg 05-01 tablet by ity of tablet 14:51: mouth [place] 12 every Medical morning. [place] gabapentin Yes gabapentin U nivers 300 mg 05-01 300 mg ity of capsule 14:51: capsule [place] [address] TAKE 1 Medical CAPSULE BY Branch MOUTH AT BEDTIME DULoxetine Yes duloxetine U nivers 60 mg 05-01 60 mg ity of capsule 14:51: [facility] release [place] TAKE 1 CAPSULE BY MOUTH TWICE DAILY divalproex Yes divalproex U nivers 500 mg EC 05-01 500 mg ity of tablet 14:51: tablet,del [place] 12 ayed Medical release [place] TAKE 1 TABLET BY MOUTH DAILY amLODIPine Yes 5mg Take 1 Unive rs 5 mg tablet 05-01 tablet by ity of 14:51: mouth in [place] [address] the Medical morning. Branch acetaminoph Yes 1{tbl} Take 1 Un yan en-codeine 9-26 tablet by ity of (TYLENOL-CO 14:51: [place] #4[place] 12 the Medical 300-60 mg morning Branch tablet and 1 tablet at noon and 1 tablet in the evening. acetaminoph Yes acetaminop Univers en-codeine - hen 300 ity of 300-30 mg 14:51: mg-codeine [place] tablet 12 30 mg Medical tablet Branch TAKE 1 TABLET BY MOUTH TWICE DAILY NEEDED acetaminoph Yes acetaminop Univers en-codeine 05-01 hen 300 ity of 300-30 mg 14:51: mg-codeine [place] tablet 12 30 mg Medical tablet Branch TAKE 1 TABLET BY MOUTH TWICE DAILY NEEDED acetaminoph Yes acetaminop Univers en-codeine 05-01 hen 300 ity of 300-30 mg 14:51: mg-codeine [place] tablet 12 30 mg Medical tablet Branch TAKE 1 TABLET BY MOUTH TWICE DAILY NEEDED Fluconazole Fluconazole 0 No 1{table Fluconazol 150 MG 150 MG 3-29 t} e 150 MG 00:00: 00 Fluconazole Fluconazole 0 No 1{table Fluconazol 150 MG 150 MG 3- t} e 150 MG 00:00: 00 triamcinolo 2022- No [id number] 40mg Univers ne 09-29 ity of acetonide 17:30: 16:30 [place] (KENALOG) 00 :00 Medical injection Branch 40 mg triamcinolo 2022- No [id number] 40mg 40 mg, Univers ne 09-29 Intramuscu ity of acetonide 17:30: 16:30 [place], ONCE, [place] (KE[place]LOG) 00 :00 1 dose, On Medi gregg injection Fri Branch 40 mg 09/29/22 at 1130, Routine triamcinolo 2022- No [id number] 40mg Univers ne 09-2900 ity of acetonide 17:30: 16:30 [place] (KENALOG) 00 :00 Medical injection Branch 40 mg triamcinolo 2022- No [id number] 40mg 40 mg, Univers ne 09-29 Intramuscu ity of acetonide 17:30: 16:30 lar, [...] 2 [place] tablet 42 (two) Medical times [place] daily with meals. simvastatin Yes 20mg Take 20 mg Univers (ZOCOR) 20 8-19 by mouth ity o f mg tablet 22:28: at [place] [address] bedtime. Medical Branch acetaminoph Yes acetaminop Univers [...] BY Branch MOUTH THREE TIMES DAILY sucralfate 0 Yes sucralfate U nivers 1 gram 8- 1 gram ity of tablet 22:28: tablet [place] 42 TAKE 1 Medical TABLET BY Branch MOUTH BEFORE MEALS AND AT BEDTIME spironolact 0 Yes spironolac [facility] one 25 mg 8- [...] [place] 42 layed Medical release [place] TAKE 1 CAPSULE BY MOUTH TWICE DAILY [...] ity o f mg tablet 22:28: at [place] [address] bedtime. Medical Branch acetaminoph Yes acetaminop Univers [...] 40 mg ity o [facility] release [place] TAKE 1 TABLET BY MOUTH EVERY DAY [...] capsule 22:28: capsuleCee 42 layed Medical release [place] TAKE 1 CAPSULE BY MOUTH TWICE DAILY divalproex Yes divalproex U nivers 500 mg EC 8 500 mg ity of tablet 22:28: tabletlow [place] 42 ayed Medical release [place] TAKE 1 TABLET BY MOUTH DAILY amLODIPine [...] ity o f mg tablet 22:28: at [place] [address] bedtime. Medical Branch acetaminoph Yes acetaminop Univers [...] 22:28: tablet,del [place] 42 ayed Medical release [place] TAKE 1 TABLET BY MOUTH EVERY DAY [...] 03-24 60 mg ity of capsule 22:28: capsule,[place] 42 layed Medical release [place] TAKE 1 CAPSULE BY MOUTH TWICE DAILY divalproex Yes divalproex U nivers 500 mg EC 03-24 500 mg ity of tablet 22:28: tablet,del [place] 42 ayed Medical release [place] TAKE 1 TABLET BY MOUTH DAILY amLODIPine [...] 22:28: tablet,del [place] 42 ayed Medical release [place] TAKE 1 TABLET BY MOUTH EVERY DAY [...] capsule,de [place] 42 lay Medical release [place] TAKE 1 CAPSULE BY MOUTH TWICE DAILY divalproex Yes divalproex U nivers 500 mg EC 8 500 mg ity of tablet 22:28: tablet,del [place] 42 ay Medical release [place] TAKE 1 TABLET BY MOUTH DAILY amLODIPine [...] ity o f mg tablet 22:28: at [place] [address] bedtime. Medical Branch acetaminoph Yes acetaminop Univers [...] 22:28: capsule[place] 42 lay Medical release [place] TAKE 1 CAPSULE BY MOUTH TWICE DAILY divalproex Yes divalproex U nivers 500 mg EC 8-19 500 mg ity of tablet 22:28: tablet,del [place] 42 ay Medical release [place] TAKE 1 TABLET BY MOUTH DAILY amLODIPine [...] ity o f mg tablet 22:28: at [place] [address] bedtime. Medical Branch acetaminoph Yes acetaminop Univers [...] 22:28: tablet,del [place] 42 ayed Medical release [place] TAKE 1 TABLET BY MOUTH DAILY amLODIPine [...] 300 mg ity of capsule 22:28: capsule [place] [address] TAKE 1 Medical CAPSULE BY Branch MOUTH AT BEDTIME DULoxetine Yes duloxetine U nivers 60 mg 8-19 60 mg ity of capsule 22:28: [place] 42 layed Medical release Branch TAKE 1 CAPSULE BY MOUTH TWICE DAILY divalproex Yes divalproex U nivers 500 mg EC 8-19 500 mg ity of tablet 22:28: tablet,del [place] 42 ayed Medical release [place] TAKE 1 TABLET BY MOUTH DAILY amLODIPine Yes amlodipine U nivers 5 mg tablet 8- 5 mg ity of 22:28: tablet [place] [address] TAKE 1 Medical TABLET BY Branch MOUTH TWICE DAILY acetaminoph Yes 1{tbl} Take 1 Un yan en-codeine 8-19 tablet by ity of (TYLENOL-CO 22:28: mouth 3 [place] DEULISSES #4) 42 (three) Medical 300-60 mg times Branch tablet daily. metFORMIN Yes 500mg Take 500 Uni vers (GLUCOPHAGE 8-19 mg by ity of ) 500 mg 22:28: mouth 2 [place] tablet 42 (two) Medical times Branch daily with meals. simvastatin Yes 20mg Take 20 mg Univers (ZOCOR) 20 8-19 by mouth ity o f mg tablet 22:28: at [place] [address] bedtime. Medical Branch acetaminoph Yes acetaminop Univers [...] ity o f mg tablet 22:28: at [place] [address] bedtime. Medical Branch acetaminoph Yes acetaminop Univers [...] ity o f mg tablet 22:28: at [place] [address] bedtime. Medical Branch acetaminoph Yes acetaminop Univers [...] TABLET BY Branch MOUTH EVERY MORNING gabapentin 2022-0 Yes gabapentin U nivers 300 mg 8-19 [...] ity o f mg tablet 22:28: at [place] [address] bedtime. Medical Branch acetaminoph Yes acetaminop Univers [...] ity o f mg tablet 22:28: at [place] [address] bedtime. Medical Branch acetaminoph Yes acetaminop Univers [...] 22:28: tablet,del [place] 42 ayed Medical release [place] TAKE 1 TABLET BY MOUTH EVERY DAY [...] 8- 60 mg ity of capsule 22:28: capsule,[place] 42 layed Medical release [place] TAKE 1 CAPSULE BY MOUTH TWICE DAILY [...] ity o f mg tablet 22:28: at [place] [address] bedtime. Medical Branch acetaminoph Yes acetaminop Univers [...] 40 mg ity o f [facility]: [facility] Medical release [place] TAKE 1 TABLET BY MOUTH EVERY DAY [...] capsule 22:28: capsuleCee 42 layed Medical release [place] TAKE 1 CAPSULE BY MOUTH TWICE DAILY divalproex Yes divalproex U nivers 500 mg EC 8 500 mg ity of tablet 22:28: tablet,del [place] 42 ayed Medical release [place] TAKE 1 TABLET BY MOUTH DAILY amLODIPine [...] ity o f mg tablet 22:28: at [place] [address] bedtime. Medical Branch acetaminoph Yes acetaminop Univers [...] 22:28: tablet,del [place] 42 ayed Medical release [place] TAKE 1 TABLET BY MOUTH EVERY DAY [...] 22:28: capsule,[place] 42 layed Medical release [place] TAKE 1 CAPSULE BY MOUTH TWICE DAILY divalproex Yes divalproex U nivers 500 mg EC 03-24 500 mg ity of tablet 22:28: tablet,low [place] 42 ayed Medical release [place] TAKE 1 TABLET BY MOUTH DAILY amLODIPine [...] ity o f mg tablet 22:28: at [place] [address] bedtime. Medical Branch acetaminoph Yes acetaminop Univers [...] 22:28: tablet,del [place] 42 ayed Medical release [place] TAKE 1 TABLET BY MOUTH EVERY DAY [...] 22:28: capsule,[place] 42 layed Medical release [place] TAKE 1 CAPSULE BY MOUTH TWICE DAILY divalproex Yes divalproex U nivers 500 mg EC 8 500 mg ity of tablet 22:28: tablet,low [place] 42 ay Medical release [place] TAKE 1 TABLET BY MOUTH DAILY amLODIPine [...] ity o f mg tablet 22:28: at [place] [address] bedtime. Medical Branch acetaminoph Yes acetaminop Univers [...] 22:28: tablet,del [place] 42 ayed Medical release [place] TAKE 1 TABLET BY MOUTH EVERY DAY [...] of capsule 22:28: capsule,de [place] 42 [facility] Medical release [place] TAKE 1 CAPSULE BY MOUTH TWICE DAILY divalproex Yes divalproex U nivers 500 mg EC 8-19 500 mg ity of tablet 22:28: tablet,del [place] 42 banner Medical [facility] TAKE 1 TABLET BY MOUTH DAILY amLODIPine [...] ity o f mg tablet 22:28: at [place] [address] bedtime. Medical Branch acetaminoph Yes acetaminop Univers [...] 300 mg ity of capsule 22:28: capsule [place] [address] TAKE 1 Medical CAPSULE BY Branch MOUTH AT BEDTIME DULoxetine Yes duloxetine U nivers 60 mg 8-19 60 mg ity of capsule 22:28: [place] 42 layed Medical release Branch TAKE 1 CAPSULE BY MOUTH TWICE DAILY divalproex Yes divalproex U nivers 500 mg EC 8-19 500 mg ity of tablet 22:28: tablet,del [place] 42 ayed Medical release [place] TAKE 1 TABLET BY MOUTH DAILY amLODIPine Yes amlodipine U nivers 5 mg tablet 8-19 5 mg ity of 22:28: tablet [place] [address] TAKE 1 Medical TABLET BY Branch MOUTH [...] ity o f mg tablet 22:28: at [place] [address] bedtime. Medical Branch acetaminoph Yes acetaminop Univers [...] mg ity of tablet 22:28: tablet [place] TAKE 1 Medical TABLET [...] 300 mg ity of capsule 22:28: capsule [place] [address] TAKE 1 Medical CAPSULE BY Branch MOUTH AT BEDTIME DULoxetine Yes duloxetine U nivers 60 mg 8-19 60 mg ity of capsule 22:28: [place] 42 layed Medical release Branch TAKE 1 CAPSULE BY MOUTH TWICE DAILY divalproex Yes divalproex U nivers 500 mg EC 8-19 500 mg ity of tablet 22:28: tablet,del [place] 42 ayed Medical release [place] TAKE 1 TABLET BY MOUTH DAILY amLODIPine Yes amlodipine U nivers 5 mg tablet 8- 5 mg ity of 22:28: tablet [place] [address] TAKE 1 Medical TABLET BY Branch MOUTH [...] mg ity of capsule 22:28: capsule [place] TAKE 1 Medical CAPSULE BY Branch MOUTH [...] ity o f mg tablet 22:28: at [place] [address] bedtime. Medical Branch acetaminoph Yes acetaminop Univers [...] ity o f mg tablet 22:28: at [place] [address] bedtime. Medical Branch acetaminoph Yes acetaminop Univers [...] CAPSULE BY Branch MOUTH AT BEDTIME DULoxetine 2022-0 Yes duloxetine U nivers 60 mg 8-19 [...] ity o f mg tablet 22:28: at [place] [address] bedtime. Medical Branch acetaminoph Yes acetaminop Univers [...] 22:28: tablet,del [place] 42 ayed Medical release [place] TAKE 1 TABLET BY MOUTH EVERY DAY [...] 8- 60 mg ity of capsule 22:28: [place] 42 layed Medical release [place] TAKE 1 CAPSULE BY MOUTH TWICE DAILY [...] ity o f mg tablet 22:28: at [place] [address] bedtime. Medical Branch acetaminoph Yes acetaminop Univers [...] 40 mg ity o f tablet 22:28: tabletlwo [place] 42 ayed Medical release [place] TAKE 1 TABLET BY MOUTH EVERY DAY [...] capsule 22:28: capsuleCee 42 layed Medical release [place] TAKE 1 CAPSULE BY MOUTH TWICE DAILY divalproex Yes divalproex U nivers 500 mg EC 8- 500 mg ity of tablet 22:28: tabletdel [place] 42 ayed Medical release [place] TAKE 1 TABLET BY MOUTH DAILY amLODIPine [...] ity o f mg tablet 22:28: at [place] [address] bedtime. Medical Branch acetaminoph Yes acetaminop Univers [...] 22:28: tablet,del [place] 42 ayed Medical release [place] TAKE 1 TABLET BY MOUTH EVERY DAY [...] 22:28: capsule,[place] 42 layed Medical release [place] TAKE 1 CAPSULE BY MOUTH TWICE DAILY divalproex Yes divalproex U nivers 500 mg EC 03-24 500 mg ity of tablet 22:28: tablet,del [place] 42 ayed Medical release [place] TAKE 1 TABLET BY MOUTH DAILY amLODIPine [...] ity o f mg tablet 22:28: at [place] [address] bedtime. Medical Branch acetaminoph Yes acetaminop Univers [...] 40 mg ity o f tablet 22:28: tablet,[facility] 42 ayed Medical release Branch TAKE 1 [...] 8- 60 mg ity of capsule 22:28: capsule,[place] 42 lay Medical release [place] TAKE 1 CAPSULE BY MOUTH TWICE DAILY divalproex Yes divalproex U nivers 500 mg EC 8- 500 mg ity of tablet 22:28: tablet,low [place] 42 ay Medical release [place] TAKE 1 TABLET BY MOUTH DAILY amLODIPine [...] ity o f mg tablet 22:28: at [place] [address] bedtime. Medical Branch acetaminoph Yes acetaminop Univers [...] 22:28: tablet,del [place] 42 ay Medical release [place] TAKE 1 TABLET BY MOUTH EVERY DAY [...] of capsule 22:28: capsule,de [place] 42 [facility] Medical release [place] TAKE 1 CAPSULE BY MOUTH TWICE DAILY divalproex Yes divalproex U nivers 500 mg EC 8-19 500 mg ity of tablet 22:28: tablet,del [place] 42 banner Medical [facility] TAKE 1 TABLET BY MOUTH DAILY amLODIPine [...] ity o f mg tablet 22:28: at [place] [address] bedtime. Medical Branch acetaminoph Yes acetaminop Univers [...] 300 mg ity of capsule 22:28: capsule [place] [address] TAKE 1 Medical CAPSULE BY Branch MOUTH AT BEDTIME DULoxetine Yes duloxetine U nivers 60 mg 8-19 60 mg ity of capsule 22:28: capsule[place] 42 layed Medical release [facility] TAKE 1 CAPSULE BY MOUTH TWICE DAILY divalproex Yes divalproex U nivers 500 mg EC 8-19 500 mg ity of tablet 22:28: tablet,del [place] 42 ayed Medical release [place] TAKE 1 TABLET BY MOUTH DAILY amLODIPine Yes amlodipine U nivers 5 mg tablet 8-19 5 mg ity of 22:28: tablet [place] [address] TAKE 1 Medical TABLET BY Branch MOUTH [...] 500 mg ity of tablet 22:28: tablet [place] [address] TAKE 1 Medical TABLET BY Branch MOUTH [...] 300 mg ity of capsule 22:28: capsule [place] [address] TAKE 1 Medical CAPSULE BY Branch MOUTH AT BEDTIME DULoxetine Yes duloxetine U nivers 60 mg 8-19 60 mg ity of capsule 22:28: [place] layed Medical release [place] TAKE 1 CAPSULE BY MOUTH TWICE DAILY divalproex Yes divalproex U nivers 500 mg EC 8-19 500 mg ity of tablet 22:28: tablet,del [place] 42 ayed Medical release [place] TAKE 1 TABLET BY MOUTH DAILY amLODIPine Yes amlodipine U nivers 5 mg tablet 8- 5 mg ity of 22:28: tablet [place] [address] TAKE 1 Medical TABLET BY Branch MOUTH [...] ity o f mg tablet 22:28: at [place] [address] bedtime. Medical Branch acetaminoph Yes acetaminop Univers [...] ity o f mg tablet 22:28: at [place] [address] bedtime. Medical Branch acetaminoph Yes acetaminop Univers [...] ity o f mg tablet 22:28: at [place] [address] bedtime. Medical Branch acetaminoph Yes acetaminop Univers [...] ity o f mg tablet 22:28: at [place] [address] bedtime. Medical Branch acetaminoph Yes acetaminop Univers [...] ity o f mg tablet 22:28: at [place] [address] bedtime. Medical Branch acetaminoph Yes acetaminop Univers en-codeine 8-19 hen 300 ity of 300-30 mg 22:28: mg-codeine [place] tablet 42 30 mg Medical tablet Branch TAKE 1 TABLET BY MOUTH TWICE DAILY NEEDED traZODone Yes trazodone Uni vers 150 mg 8-19 150 mg ity of tablet 22:28: tablet [place] [address] TAKE 1 TO Medical 2 TABLETS Branch [...] 22:28: tablet,del [place] 42 ayed Medical release [place] TAKE 1 TABLET BY MOUTH EVERY DAY [...] 8- 60 mg ity of capsule 22:28: capsule,[place] 42 layed Medical release [place] TAKE 1 CAPSULE BY MOUTH TWICE DAILY [...] ity o f mg tablet 22:28: at [place] [address] bedtime. Medical Branch acetaminoph Yes acetaminop Univers [...] 40 mg [facility] [place] TAKE 1 TABLET BY MOUTH EVERY DAY [...] capsule 22:28: capsuleCee 42 layed Medical release Branch TAKE 1 CAPSULE BY MOUTH TWICE DAILY divalproex Yes divalproex U nivers 500 mg EC 8- 500 mg ity of tablet 22:28: tablet,del [place] 42 ayed Medical release [place] TAKE 1 TABLET BY MOUTH DAILY amLODIPine [...] ity o f mg tablet 22:28: at [place] [address] bedtime. Medical Branch acetaminoph Yes acetaminop Univers [...] 22:28: tablet,del [place] 42 ayed Medical release [place] TAKE 1 TABLET BY MOUTH EVERY DAY [...] capsule,[place] lay[place] Medical release [place] TAKE 1 CAPSULE BY MOUTH TWICE DAILY divalproex Yes divalproex U nivers 500 mg EC 8 500 mg ity of tablet 22:28: tablet,del [place] 42 ayed Medical release [place] TAKE 1 TABLET BY MOUTH DAILY amLODIPine [...] ity o f mg tablet 22:28: at [place] [address] bedtime. Medical Branch acetaminoph Yes acetaminop Univers [...] 50 Yes tramadol Un ayn mg tablet 8-19 50 mg ity of [...] 40 mg ity o f tablet 22:28: tablet,[facility] 42 ayed Medical release Branch TAKE 1 [...] capsule 22:28: capsule,[place] 42 lay Medical release [place] TAKE 1 CAPSULE BY MOUTH TWICE DAILY divalproex Yes divalproex U nivers 500 mg EC 8 500 mg ity of tablet 22:28: tablet,[facility] 42 ayed Medical release [place] TAKE 1 TABLET BY MOUTH DAILY amLODIPine Yes amlodipine U nivers 5 mg tablet 03-24 5 mg ity of 22:28: tablet [place] 42 TAKE 1 Medical TABLET BY Branch MOUTH TWICE DAILY acetaminoph Yes 1{tbl} Take 1 Un yan en-codeine 8- tablet by ity of (TYLENOL-CO 22:28: mouth 3 [place] DEULISSES #4) 42 (three) Medical 300-60 mg times Branch tablet daily. metFORMIN Yes 500mg Take 500 Uni vers (GLUCOPHAGE 8-19 mg by ity of ) 500 mg 22:28: mouth 2 [place] tablet 42 (two) Medical times Branch daily with meals. simvastatin Yes 20mg Take 20 mg Univers (ZOCOR) 20 -19 by mouth ity o f mg tablet 22:28: at [place] [address] bedtime. Medical Branch acetaminoph Yes acetaminop Univers [...] 8-19 60 mg ity of capsule 22:28: capsule,[place] 42 lay Medical release [place] TAKE 1 CAPSULE BY MOUTH TWICE DAILY divalproex Yes divalproex U nivers 500 mg EC 8-19 500 mg ity of tablet 22:28: tablet,del [place] 42 ayed Medical release [place] TAKE 1 TABLET BY MOUTH DAILY amLODIPine [...] ity o f mg tablet 22:28: at [place] [address] bedtime. Medical Branch acetaminoph Yes acetaminop Univers [...] 1 gram ity of tablet 22:28: tablet [place] [address] TAKE 1 Medical TABLET BY Branch MOUTH [...] 300 mg ity of capsule 22:28: capsule [place] [address] TAKE 1 Medical CAPSULE BY Branch MOUTH [...] 500 mg ity of tablet 22:28: tablet [place] [address] TAKE 1 Medical TABLET BY Branch MOUTH [...] 300 mg ity of capsule 22:28: capsule [place] [address] TAKE 1 Medical CAPSULE BY Branch MOUTH AT BEDTIME DULoxetine Yes duloxetine U nivers 60 mg 8-19 60 mg ity of capsule 22:28: [place] 42 layed Medical release [place] TAKE 1 CAPSULE BY MOUTH TWICE DAILY divalproex Yes divalproex U nivers 500 mg EC 8-19 500 mg ity of tablet 22:28: tablet,del [place] 42 ayed Medical release [place] TAKE 1 TABLET BY MOUTH DAILY amLODIPine Yes amlodipine U nivers 5 mg tablet 03-24 5 mg ity of 22:28: tablet [place] [address] TAKE 1 Medical TABLET BY Branch MOUTH [...] ity o f mg tablet 22:28: at [place] [address] bedtime. Medical Branch acetaminoph Yes acetaminop Univers [...] ity o f mg tablet 22:28: at [place] [address] bedtime. Medical Branch acetaminoph Yes acetaminop Univers [...] ity o f mg tablet 22:28: at [place] [address] bedtime. Medical Branch acetaminoph Yes acetaminop Univers [...] AT BEDTIME NEEDED FOR INSOMNIA traMADoL 50 0 Yes tramadol Un yan mg tablet 8-19 50 mg ity of 22:28: tablet [place] 42 TAKE 1 Medical TABLET BY Branch MOUTH THREE TIMES DAILY sucralfate 0 Yes sucralfate U nivers 1 gram 8-19 1 gram ity of tablet 22:28: tablet [place] 42 [...] ity o f mg tablet 22:28: at [place] [address] bedtime. Medical Branch acetaminoph Yes acetaminop Univers [...] 22:28: tablet,del [place] 42 ayed Medical release [place] TAKE 1 TABLET BY MOUTH EVERY DAY [...] capsule 22:28: capsuleCee 42 layed Medical release [place] TAKE 1 CAPSULE BY MOUTH TWICE DAILY [...] ity o f mg tablet 22:28: at [place] [address] bedtime. Medical Branch acetaminoph Yes acetaminop Univers [...] 40 mg [facility] o [facility] release [place] TAKE 1 TABLET BY MOUTH EVERY DAY [...] of capsule 22:28: capsuleCee 42 lay Medical release [place] TAKE 1 CAPSULE BY MOUTH TWICE DAILY [...] ity o f mg tablet 22:28: at [place] [address] bedtime. Medical Branch acetaminoph Yes acetaminop Univers [...] 22:28: tablet,[place] 42 ayed Medical release [place] TAKE [...] capsule,[place] lay[place] Medical release [place] TAKE 1 CAPSULE BY MOUTH TWICE DAILY divalproex Yes divalproex U nivers 500 mg EC 8 500 mg ity of tablet 22:28: tablet,del [place] 42 ayed Medical release [place] TAKE 1 TABLET BY MOUTH DAILY amLODIPine [...] ity o f mg tablet 22:28: at [place] [address] bedtime. Medical Branch acetaminoph Yes acetaminop Univers [...] 8- 60 mg ity of capsule 22:28: [place] 42 lay Medical release [place] TAKE 1 CAPSULE BY MOUTH TWICE DAILY divalproex Yes divalproex U nivers 500 mg EC - 500 mg ity of tablet 22:28: tablet,[facility] 42 ay Medical release [place] TAKE 1 TABLET BY MOUTH DAILY amLODIPine Yes amlodipine U nivers 5 mg tablet 03-24 5 mg ity of 22:28: tablet [place] 42 TAKE 1 Medical TABLET BY Branch MOUTH TWICE DAILY acetaminoph Yes 1{tbl} Take 1 Un yan en-codeine 8-19 tablet by ity of (TYLENOL-CO 22:28: mouth 3 [place] CORAL #4) 42 (three) Medical 300-60 mg times Branch tablet daily. metFORMIN Yes 500mg Take 500 Uni vers (GLUCOPHAGE 8-19 mg by ity of ) 500 mg 22:28: mouth 2 [place] tablet 42 (two) Medical times Branch daily with meals. simvastatin Yes 20mg Take 20 mg Univers (ZOCOR) 20 - by mouth ity o f mg tablet 22:28: at [place] [address] bedtime. Medical Branch acetaminoph Yes acetaminop Univers [...] 22:28: capsule,[place] 42 lay Medical release [place] TAKE 1 CAPSULE BY MOUTH TWICE DAILY divalproex Yes divalproex U nivers 500 mg EC 8- 500 mg ity of tablet 22:28: tablet,del [place] 42 banner Medical release [place] TAKE 1 TABLET BY MOUTH DAILY amLODIPine [...] ity o f mg tablet 22:28: at [place] [address] bedtime. Medical Branch acetaminoph Yes acetaminop Univers [...] 1 gram ity of tablet 22:28: tablet [place] [address] TAKE 1 Medical TABLET BY Branch MOUTH [...] 300 mg ity of capsule 22:28: capsule [place] [address] TAKE 1 Medical CAPSULE BY Branch MOUTH [...] 500 mg ity of tablet 22:28: tablet [place] [address] TAKE 1 Medical TABLET BY Branch MOUTH [...] 300 mg ity of capsule 22:28: capsule [place] [address] TAKE 1 Medical CAPSULE BY Branch MOUTH AT BEDTIME DULoxetine Yes duloxetine U nivers 60 mg 8-19 60 mg ity of capsule 22:28: capsule,[place] 42 layed Medical release Branch TAKE 1 CAPSULE BY MOUTH TWICE DAILY divalproex Yes divalproex U nivers 500 mg EC 8-19 500 mg ity of tablet 22:28: tablet,del [place] 42 ayed Medical release [place] TAKE 1 TABLET BY MOUTH DAILY amLODIPine [...] ity o f mg tablet 22:28: at [place] [address] bedtime. Medical Branch acetaminoph Yes acetaminop Univers [...] ity o f mg tablet 22:28: at [place] [address] bedtime. Medical Branch acetaminoph Yes acetaminop Univers [...] 8- 50 mg ity of 22:28: tablet [place] 42 TAKE 1 Medical [...] 8- 5 mg ity of 22:28: tablet [place] [address] TAKE 1 Medical TABLET BY Branch MOUTH [...] ity o f mg tablet 22:28: at [place] [address] bedtime. Medical Branch acetaminoph Yes acetaminop Univers [...] mg ity o f tablet :28: tablet,del [place] 42 ayed Medical release Branch [...] mg 03-24 15 mg ity of tablet :28: tablet [place] 42 TAKE 1 Medical TABLET BY Branch MOUTH EVERY DAY losartan 50 Yes losartan Un yan mg tablet 03-24 50 mg ity of 22:28: tablet [place] 42 TAKE 1 Medical TABLET BY Branch MOUTH TWICE DAILY levothyroxi Yes levothyrox Univers ne 175 mcg 03-24 ine 175 ity of tablet 22:28: mcg tablet [place] 42 TAKE 1 Medical [...] ity o f mg tablet 22:28: at [place] [address] bedtime. Medical Branch acetaminoph Yes acetaminop Univers [...] AT BEDTIME NEEDED FOR INSOMNIA traMADoL 50 0 Yes tramadol Un yan mg tablet 8-19 50 mg ity of 22:28: tablet [place] 42 TAKE 1 Medical TABLET BY Branch MOUTH THREE TIMES DAILY sucralfate 0 Yes sucralfate U nivers 1 gram 8-19 [...] o f (GOLYTELY) 18:32: - SEE [place] .74-6 54 INSTRUCTIO Me dical .74 -5.86 NS, [...] o f (GOLYTELY) 18:32: - SEE [place] 6 54 INSTRUCTIO Me dical .74 -5.86 NS, [...] of (GOLYTELY) 18:32: 05:28 - SEE [place] 74-6 54 :43 INSTRUCTIO Me dical .74 -5.86 [...] Starting on Analy 03/23/22 at 1332, Until Sun03/23/22 at 1347, Routine, Bowel Prep, Colonoscop y bisacodyL 2021- No 10mg 10 mg, Unive rs (DULCOLAX) 03-23 Oral, ity of tablet 10 18:32: 18:47 PRE-PROCED [place] mg 54 :00 URE ONCE, Medical 1 dose, Branch Starting on [facility] 03/23/22 at 1332, Until [facility] 03/23/22 at 1347, Routine, Bowel Prep, Colonoscop y bisacodyL 2021- No 10mg 10 mg, Unive rs (DULCOLAX) 03-23 Oral, ity of tablet 10 18:32: 18:47 PRE-PROCED [place] mg 54 :00 URE ONCE, Medical 1 dose, Branch Starting on [facility] 03/23/22 at 1332, Until Sun03/23/22 at 1347, Routine, Bowel Prep, Colonoscop y maalox-lido 2021-0 Yes 5mL 5 mL, Unive rs usha 2% 03-23 Oral, ity of viscous 1:1 16:35: TIDPRN, [place] 52 Starting Medic al (COMPOUNDED on [facility] Branch ) 03/23/22 at 1135, Until Discontinu ed, Routine, stomach pain maalox-lido 2021-0 Yes 5mL 5 mL, Unive rs usha 2% 03-23 Oral, ity of viscous 1:1 16:35: TIDPRN, [place] 52 Starting Medic al (COMPOUNDED on [facility] Branch ) 03/23/22 at 1135, Until Discontinu ed, Routine, stomach pain maalox-lido 2021-0 2021- No 5mL 5 mL, Univ ers usha 2% 03-23 Oral, ity of viscous 1:1 16:35: 05:28 TIDPRN, [place] suspension 52 :43 Starting Medic al (COMPOUNDED on [facility] ) 03/23/22 at 1135, Until 03/25/22 at 0028, Routine, stomach pain DULoxetine Yes 60mg 60 mg, Unive rs (CYMBALTA) 03-23 Oral, ity of capsule 60 14:00: DAILY, [place] mg 00 First dose Medical on [facility] 03/23/22 at 0900, Until Discontinu ed, Routine DULoxetine Yes 60mg 60 mg, Unive rs (CYMBALTA) 03-23 Oral, ity of capsule 60 14:00: DAILY, [place] mg 00 First dose Medical on [facility] 03/23/22 at 0900, Until Discontinu ed, Routine DULoxetine 2021- No 60mg 60 mg, [facility] ers (CYMBALTA) 03-23 Oral, ity of capsule 60 14:00: 05:28 DAILY, [place] mg 00 :43 First dose Medical on [facility] 03/23/22 at 0900, Until Discontinu ed, Routine levothyroxi Yes 175ug 175 mcg, U nivers ne 03-23 Oral, ity of (SYNTHROID) 11:00: QAM-0600, [place] tablet 175 00 First dose Med ical mcg on [facility] 03/23/22 at 0600, Until Discontinu ed, Routine levothyroxi Yes 175ug 175 mcg, U nivers ne 03-23 Oral, ity of (SYNTHROID) 11:00: QAM-0600, [place] tablet 175 00 First dose Med ical mcg on [facility] 03/23/22 at 0600, Until Discontinu ed, Routine levothyroxi 2021- No 175ug 175 mcg, Univers ne 03-23 Oral, ity of (SYNTHROID) 11:00: 05:28 QAM-0600, [place] tablet 175 00 :43 First dose Med ical mcg on [facility] 03/23/22 at 0600, Until Discontinu ed, Routine HYDROcodone 2022-0 2022- No 1{tbl} 1 [...] tablet 03/23/22 at 0330, Routine HYDROcodone 2021- 202- No 1{tbl} 1 tablet, Univers -acetaminop 8-18 08-18 Oral, ity of hen (NORCO 08:30: 07:29 ONCE, 1 [place] 5) 5-325 mg 00 :00 dose, On Medi gregg tablet u Branch tablet 03/23/22 at 0330, Routine simvastatin 2021-0 Yes 20mg 20 mg, Univ ers (ZOCOR) 8-18 Oral, QHS, ity of tablet 20 02:00: First dose [place] mg 00 on [facility] 03/22/22 at Branch 2100, Until Discontinu ed, Routine gabapentin 2021-0 Yes 300mg 300 mg, Uni vers (NEURONTIN) 8-18 Oral, QHS, it y of capsule 300 02:00: First dose [place] mg 00 on [facility] 03/22/22 at Branch 2100, Until Discontinu ed, Routine simvastatin 2021-0 Yes 20mg 20 mg, Univ ers (ZOCOR) 8-18 Oral, QHS, ity of tablet 20 02:00: First dose [place] mg 00 on [facility] 03/22/22 at Branch 2100, Until Discontinu ed, Routine gabapentin 2021-0 Yes 300mg 300 mg, Uni vers (NEURONTIN) 8-18 Oral, QHS, it y of capsule 300 02:00: First dose [place] mg 00 on [facility] 03/22/22 at Branch 2100, Until Discontinu ed, Routine simvastatin 2021-0 2022- No 20mg 20 mg, Uni vers (ZOCOR) 8-18 08-20 Oral, QHS, ity o f tablet 20 02:00: 05:28 First dose [place] mg 00 :43 on [facility] 03/22/22 at [place] 2100, Until Discontinu ed, Routine gabapentin 2021- No 300mg 300 mg, Un yan (NEURONTIN) 03-23 Oral, QHS, i ty of capsule 300 02:00: 05:28 First dose [place] mg 00 :43 on [facility] 03/22/22 at [place] 2100, Until Discontinu ed, Routine QUEtiapine 0 Yes 200mg 200 mg, Uni vers (SEROQUEL) 8 Oral, BID, ity of tablet 200 01:00: First dose [place] mg 00 on [facility] 03/22/22 at [place] 2000, Until Discontinu ed, Routine QUEtiapine Yes 200mg 200 mg, Uni vers (SEROQUEL) 03-23 Oral, BID, ity of tablet 200 01:00: First dose [place] mg 00 on [facility] 03/22/22 at [place] 2000, Until Discontinu ed, Routine QUEtiapine 2021- No 200mg 200 mg, Un yan (SEROQUEL) 03-23 Oral, BID, it y of tablet 200 01:00: 05:28 First dose [place] mg 00 :43 on [facility] 03/22/22 at [place] 2000, Until Discontinu ed, Routine acetaminoph 0 Yes 650mg 650 mg, Un yan en 03-22 Oral, ity of (TYLENOL) 23:39: Q6HPRN, [place] tablet 650 24 Starting Medic al mg on [facility] 03/22/22 at 1839, Until Discontinu ed, Routine, Pain (scale 1-3) acetaminoph 0 Yes 650mg 650 mg, Un yan en 03-22 Oral, ity of (TYLENOL) 23:39: Q6HPRN, [place] tablet 650 24 Starting Medic al mg on [facility] 03/22/22 at 1839, Until Discontinu ed, Routine, Pain (scale 1-3) acetaminoph 2021- No 650mg 650 mg, U nivers en 03-22 Oral, ity of (TYLENOL) 23:39: 05:28 Q6HPRN, [place] tablet 650 24 :43 Starting Medic al mg on [facility] Branch 03/22/22 at 1839, Until 03/25/22 at 0028, Routine, Pain (scale 1-3) traMADoL Yes 50mg 50 mg, Univers (ULTRAM) 8 Oral, ity of tablet 50 23:12: Q6HPRN, [...] First dose Medical (HumaLOG) + on Sun [place] [facility] 03/22/22 at Testing 1700, Until Discontinu ed, [...] or has mental status changes. dextrose 50 0 Yes 25mL 25 [...] mL, Uni vers % in water 03-22 0820 Slow IV ity o f (D50W) 20:58: 05:28 Push, PRN, [place] injection 51 :43 Starting Medica l 25 mL on Wed Branch 03/22/22 at 1558, Until 03/25/22 at 0028, PRINCE, Blood Glucose < or = 70 mg/dL and patient is unable to swallow or has mental status changes. pantoprazol 2021- Yes 8mg/h 8 mg/hr Un yan e [...] on Sun Branch 03/22/22 at 1332, Until 03/22/22 at 1536, Routine, Pain (scale 7-10) NaCl [...] ity o f mg tablet 15:57: at [place] [address] bedtime. Medical Branch QUEtiapine Yes quetiapine U nivers 200 mg 03-22 200 mg ity of tablet 15:57: tablet [place] [address] TAKE 1 Medical TABLET BY Branch MOUTH TWICE DAILY levothyroxi Yes levothyrox Univers ne 175 mcg 03-22 ine 175 ity of tablet 15:57: mcg tablet [place] [address] TAKE 1 Medical TABLET BY Branch MOUTH EVERY MORNING gabapentin Yes gabapentin U nivers 300 mg 03-22 300 mg ity of capsule 15:57: capsule [place] [address] TAKE 1 Medical CAPSULE BY Branch MOUTH AT BEDTIME DULoxetine Yes duloxetine U nivers 60 mg 03-22 60 mg ity of capsule 15:57: capsule,[place] 46 layed Medical release [place] TAKE 1 CAPSULE BY MOUTH TWICE DAILY metFORMIN Yes 500mg Take 500 Uni vers (GLUCOPHAGE 8-17 mg by ity of ) 500 mg 10:34: mouth 2 [place] tablet 54 (two) Medical times Branch daily with meals. acetaminoph Yes acetaminop Univers en-codeine 03-22 hen 300 ity of 300-30 mg 10:34: mg-codeine [place] tablet 54 30 mg Medical tablet [place] TAKE 1 TABLET BY MOUTH TWICE DAILY [...] spironolact Yes spironolac Univers one 25 mg 8 tone 25 mg ity of tablet 10:34: tablet [place] 54 TAKE 1 Medical TABLET BY Branch MOUTH EVERY DAY SITagliptin Yes Januvia Uni vers (JANUVIA) 8 100 mg ity of 100 mg 10:34: [...] 40 mg ity o f tablet 10:34: tablet,[facility] 54 ayed Medical release Branch TAKE 1 [...] Yes divalproex U nivers 500 mg EC 03-22 500 mg ity of tablet 10:34: tablet,del [place] 54 ayed Medical release Branch TAKE 1 TABLET BY MOUTH DAILY amLODIPine Yes amlodipine U nivers 5 mg tablet 03-22 5 mg ity of 10:34: tablet [place] 54 TAKE 1 Medical TABLET BY Branch MOUTH TWICE DAILY acetaminoph Yes 1{tbl} Take 1 Un yan en-codeine 17 tablet by ity of (TYLENOL-CO 10:34: mouth [...] ity o f mg tablet 17:58: at [place] [address] bedtime. Medical Branch acetaminoph Yes acetaminop Univers [...] 200 mg ity of tablet 17:58: tablet [place] 36 TAKE 1 Medical TABLET BY Branch MOUTH TWICE DAILY pantoprazol Yes pantoprazo Univers e 40 mg EC 6-17 le 40 mg ity o f tablet 17:58: tablet,del [place] 36 ayed Medical release Branch TAKE 1 TABLET BY MOUTH EVERY DAY methocarbam Yes methocarba Univers oL 500 mg -17 mol 500 mg ity of tablet 17:58: tablet [place] 36 TAKE 1 Medical TABLET BY Branch MOUTH THREE TIMES DAILY FOR 5 DAYS meloxicam Yes meloxicam Uni vers 15 mg 17 15 mg ity of tablet 17:58: tablet [place] 36 TAKE 1 Medical TABLET BY Branch MOUTH EVERY DAY losartan 50 Yes losartan Un yan mg tablet 17 50 mg ity of 17:58: tablet [place] 36 TAKE 1 Medical TABLET BY Branch MOUTH TWICE DAILY levothyroxi Yes levothyrox Univers ne 175 mcg -17 ine 175 ity of tablet 17:58: mcg tablet [place] 36 TAKE 1 Medical TABLET BY Branch MOUTH EVERY MORNING gabapentin Yes gabapentin U nivers 300 mg - 300 mg ity of capsule 17:58: capsule [place] 36 TAKE 1 Medical CAPSULE BY Branch MOUTH AT BEDTIME DULoxetine Yes duloxetine U nivers 60 mg 01-20 60 mg ity of capsule 17:58: capsule,[place] 36 [facility] TAKE 1 CAPSULE BY MOUTH TWICE DAILY divalproex Yes divalproex U nivers 500 mg EC 617 500 mg ity of tablet 17:58: tablet,del [place] 36 [facility] [place] [facility] TAKE 1 TABLET BY MOUTH DAILY amLODIPine Yes amlodipine U nivers 5 mg tablet 01-20 5 mg ity of 17:58: tablet [place] 36 [...] _meals} 200 MG 00 :00 Albuterol Albuterol 0 No 1{puff_ 6xD Albuterol [...] Base) MCG/ACT MCG/ACT MCG/ACT Amoxicillin Amoxicillin 0 2022- No 1{capsu TID Amoxicilli 500 mg 500 mg 08-16 le} n 500 mg 00:00: 00:00 00 :00 Amoxicillin Amoxicillin 2-0 2022- No 1{capsu TID Amoxicilli 500 mg 500 mg 1-11 - le} n 500 mg 00:00: 00:00 00 [...] 00:00: 00:00 00 :00 Strips Strips 2020-1 2021- No QD Strips 1-17 05-16 00:00: 00:00 00 :00 Strips Strips 2020-1 2021- No QD Strips 1-17 05-16 00:00: 00:00 00 :00 Strips Strips 2020-1 2021- No QD Strips [...] Glucometer Glucometer 2020-2021- No Glucometer n/s n/s 1-15 n/s 00:00: 00:00 00 :00 Glucometer Glucometer 2020-2021- No Glucometer n/s n/s 1-22 09-15 n/s 00:00: 00:00 00 :00 Glucometer Glucometer 2020-2021- No Glucometer n/s n/s 1-17 -15 n/s 00:00: 00:00 00 :00 Glucometer Glucometer 2020-08- No Glucometer n/s n/s -17 -15 n/s 00:00: 00:00 00 :00 Glucometer Glucometer 2020-08- No Glucometer n/s n/s 1-17 -15 n/s 00:00: 00:00 00 :00 Glucometer Glucometer 2020-08- No Glucometer n/s n/s -17 15 n/s 00:00: 00:00 00 :00 Glucometer Glucometer 2020-08- No Glucometer n/s n/s 1-15 n/s 00:00: 00:00 00 :00 Glucometer Glucometer 2020-08- No Glucometer n/s n/s 1-17 15 n/s 00:00: 00:00 00 :00 Glucometer Glucometer 2020-08- No Glucometer n/s n/s -15 n/s 00:00: 00:00 00 :00 Montelukast Montelukast 2020-0 No 1{table Montelukas Sodium 10 Sodium 10 9-15 t} t Sodium MG MG 00:00: 10 MG 00 dicyclomine 0 Yes [id number] 10mg Take 1 Univers 10 mg 6-25 capsule by ity of capsule 00:00: mouth 3 00 (three) Medical times Branch daily as needed for Abdominal pain. loperamide 0 Yes [id number] 2mg Take 1 U nivers 2 mg 6-25 capsule by ity of capsule 00:00: mouth [place] 00 every 4 Medical (four) Branch hours as needed for Diarrhea. dicyclomine 1-0 Yes [id number] 10mg Take 1 Univers 10 mg 6-25 capsule by ity of capsule 00:00: mouth 3 (three) Medical times Branch daily as needed for Abdominal pain. loperamide 2020-0 Yes [id number] 2mg Take 1 U nivers 2 mg 6-25 capsule by ity of capsule 00:00: mouth 00 every 4 Medical (four) Branch hours as needed for Diarrhea. dicyclomine 2020-0 Yes [id number] 10mg Take 1 Univers 10 mg 6-25 capsule by ity of capsule 00:00: mouth 3 (three) Medical times Branch daily as needed for Abdominal pain. loperamide 2020-0 Yes [id number] 2mg Take 1 U nivers 2 mg 6-25 capsule by ity of capsule 00:00: mouth 00 every 4 Medical (four) Branch hours as needed for Diarrhea. dicyclomine 2020-0 Yes [id number] 10mg Take 1 Univers 10 mg 6-25 capsule by ity of capsule 00:00: mouth (three) Medical times Branch daily as needed for Abdominal pain. loperamide 2020-0 Yes [id number] 2mg Take 1 U nivers 2 mg 6-25 capsule by ity of capsule 00:00: mouth 00 every 4 Medical (four) Branch hours as needed for Diarrhea. dicyclomine 2020-0 Yes [id number] 10mg Take 1 Univers 10 mg 6-25 capsule by ity of capsule 00:00: mouth (three) Medical times Branch daily as needed for Abdominal pain. loperamide 2020-0 Yes [id number] 2mg Take 1 U nivers 2 mg 6-25 capsule by ity of capsule 00:00: mouth [place] 00 every 4 Medical (four) Branch hours as needed for Diarrhea. dicyclomine 2021-0 Yes [id number] 10mg Take 1 Univers 10 mg 6-25 capsule by ity of capsule 00:00: mouth 3 (three) Medical times Branch daily as needed for Abdominal pain. loperamide 2020-0 Yes [id number] 2mg Take 1 U nivers 2 mg 6-25 capsule by ity of capsule 00:00: mouth 00 every 4 Medical (four) Branch hours as needed for Diarrhea. dicyclomine 2020-0 Yes [id number] 10mg Take 1 Univers 10 mg 6-25 capsule by ity of capsule 00:00: mouth 3 [place] 00 (three) Medical times Branch daily as needed for Abdominal pain. loperamide 2020-0 Yes [id number] 2mg Take 1 U nivers 2 mg 6-25 capsule by ity of capsule 00:00: mouth [place] 00 every 4 Medical (four) Branch hours as needed for Diarrhea. dicyclomine 2020-0 Yes [id number] 10mg Take 1 Univers 10 mg 6-25 capsule by ity of capsule 00:00: mouth 3 00 (three) Medical times Branch daily as needed for Abdominal pain. loperamide 2020-0 Yes [id number] 2mg Take 1 [facility] 2 mg 6-25 capsule by [facility] of capsule 00:00: mouth [place] 00 every 4 Medical (four) Branch hours as needed for Diarrhea. dicyclomine 2020-0 Yes [id number] 10mg Take 1 [facility] 10 [facility]-25 capsule by [facility] capsule 00:00: mouth (three) Medical times Branch daily as needed for Abdominal pain. loperamide 2020-0 Yes [id number] 2mg Take 1 [facility] 2 mg 6-25 capsule by [facility] capsule 00:00: mouth [place] 00 every 4 Medical (four) Branch hours as needed for Diarrhea. dicyclomine 2020-0 Yes [id number] 10mg Take 1 [facility] 10 mg 6-25 capsule by [facility] capsule 00:00: mouth 3 (three) Medical times Branch daily as needed for Abdominal pain. loperamide 2020-0 Yes [id number] 2mg Take 1 [facility] 2 mg 6-25 capsule by [facility] capsule 00:00: mouth [place] 00 every 4 Medical (four) Branch hours as needed for Diarrhea. dicyclomine 2020-0 Yes [id number] 10mg Take 1 [facility] 10 mg 6-25 capsule by [facility] capsule 00:00: mouth 3 00 (three) Medical times Branch daily as needed for Abdominal pain. loperamide 2020-0 Yes [id number] 2mg Take 1 [facility] 2 mg 6-25 capsule by [facility] capsule 00:00: mouth [place] 00 every 4 Medical (four) Branch hours as needed for Diarrhea. dicyclomine 2020-0 Yes [id number] 10mg Take 1 [facility] 10 mg 6-25 capsule by [facility] capsule 00:00: mouth 3 (three) Medical times Branch daily as needed for Abdominal pain. loperamide 2020-0 Yes [id number] 2mg Take 1 [facility] 2 mg 6-25 capsule by [facility] capsule 00:00: mouth [place] 00 every 4 Medical (four) Branch hours as needed for Diarrhea. dicyclomine 2020-0 Yes [id number] 10mg Take 1 [facility] 10 mg 6-25 capsule by [facility] capsule 00:00: mouth 3 (three) Medical times Branch daily as needed for Abdominal pain. loperamide 0 Yes [id number] 2mg Take 1 [facility] 2 mg 6-25 capsule by [facility] capsule 00:00: mouth [place] 00 every 4 Medical (four) Branch hours as needed for Diarrhea. dicyclomine 0 Yes [id number] 10mg Take 1 [facility] 10 mg 6-25 capsule by [facility] capsule 00:00: mouth (three) Medical times Branch daily as needed for Abdominal pain. loperamide 0 Yes [id number] 2mg Take 1 [facility] 2 mg 6-25 capsule by [facility] capsule 00:00: mouth [place] 00 every 4 Medical (four) Branch hours as needed for Diarrhea. dicyclomine 0 Yes [id number] 10mg Take 1 [facility] 10 mg 6-25 capsule by [facility] capsule 00:00: mouth (three) Medical times Branch daily as needed for Abdominal pain. loperamide 2020-0 Yes [id number] 2mg Take 1 [facility] 2 mg 6-25 capsule by [facility] capsule 00:00: mouth [place] 00 every 4 Medical (four) Branch hours as needed for Diarrhea. dicyclomine 2020-0 Yes [id number] 10mg Take 1 [facility] 10 mg 6-25 capsule by [facility] capsule 00:00: mouth 3 (three) Medical times Branch daily as needed for Abdominal pain. loperamide 2020-0 Yes [id number] 2mg Take 1 [facility] 2 mg 6-25 capsule by [facility] capsule 00:00: mouth [place] 00 every 4 Medical (four) Branch hours as needed for Diarrhea. dicyclomine 2020-0 Yes [id number] 10mg Take 1 [facility] 10 mg 6-25 capsule by [facility] capsule 00:00: mouth 3 (three) Medical times Branch daily as needed for Abdominal pain. loperamide 2020-0 Yes [id number] 2mg Take 1 [facility] 2 mg 6-25 capsule by [facility] capsule 00:00: mouth [place] 00 every 4 Medical (four) Branch hours as needed for Diarrhea. dicyclomine 2020-0 Yes [id number] 10mg Take 1 [facility] 10 mg 6-25 capsule by [facility] capsule 00:00: mouth 3 (three) Medical times Branch daily as needed for Abdominal pain. loperamide 2020-0 Yes [id number] 2mg Take 1 [facility] 2 mg 6-25 capsule by [facility] capsule 00:00: mouth [place] 00 every 4 Medical (four) Branch hours as needed for Diarrhea. dicyclomine 2020-0 Yes [id number] 10mg Take 1 [facility] 10 mg 6-25 capsule by [facility] capsule 00:00: mouth (three) Medical times Branch daily as needed for Abdominal pain. loperamide 0 Yes [id number] 2mg Take 1 [facility] 2 mg 6-25 capsule by [facility] capsule 00:00: mouth [place] 00 every 4 Medical (four) Branch hours as needed for Diarrhea. dicyclomine 2020-0 Yes [id number] 10mg Take 1 [facility] 10 mg 6-25 capsule by [facility] capsule 00:00: mouth 3 (three) Medical times Branch daily as needed for Abdominal pain. loperamide 2020-0 Yes [id number] 2mg Take 1 [facility] 2 mg 6-25 capsule by [facility] capsule 00:00: mouth [place] 00 every 4 Medical (four) Branch hours as needed for Diarrhea. dicyclomine 2020-0 Yes [id number] 10mg Take 1 [facility] 10 mg 6-25 capsule by [facility] capsule 00:00: mouth 3 (three) Medical times Branch daily as needed for Abdominal pain. loperamide 2020-0 Yes [id number] 2mg Take 1 [facility] 2 mg 6-25 capsule by [facility] capsule 00:00: mouth [place] 00 every 4 Medical (four) Branch hours as needed for Diarrhea. dicyclomine 2020-0 Yes [id number] 10mg Take 1 [facility] 10 mg 6-25 capsule by [facility] capsule 00:00: mouth 3 (three) Medical times Branch daily as needed for Abdominal pain. loperamide 2020-0 Yes [id number] 2mg Take 1 [facility] 2 mg 6-25 capsule by [facility] capsule 00:00: mouth [place] 00 every 4 Medical (four) Branch hours as needed for Diarrhea. dicyclomine 2020-0 Yes [id number] 10mg Take 1 [facility] 10 mg 6-25 capsule by [facility] capsule 00:00: mouth 3 00 (three) Medical times Branch daily as needed for Abdominal pain. loperamide 2020-0 Yes [id number] 2mg Take 1 [facility] 2 mg 6-25 capsule by [facility] capsule 00:00: mouth [place] 00 every 4 Medical (four) Branch hours as needed for Diarrhea. dicyclomine 2020-0 Yes [id number] 10mg Take 1 [facility] 10 mg 6-25 capsule by [facility] capsule 00:00: mouth (three) Medical times Branch daily as needed for Abdominal pain. loperamide 2020-0 Yes [id number] 2mg Take 1 [facility] 2 mg 6-25 capsule by [facility] capsule 00:00: mouth 00 every 4 Medical (four) Branch hours as needed for Diarrhea. dicyclomine 2020-0 Yes [id number] 10mg Take 1 [facility] 10 mg 6-25 capsule by [facility] capsule 00:00: mouth 3 (three) Medical times Branch daily as needed for Abdominal pain. loperamide 2020-0 Yes [id number] 2mg Take 1 [facility] 2 mg 6-25 capsule by [facility] capsule 00:00: mouth [place] 00 every 4 Medical (four) Branch hours as needed for Diarrhea. dicyclomine 2020-0 Yes [id number] 10mg Take 1 [facility] 10 mg 6-25 capsule by [facility] capsule 00:00: mouth 3 (three) Medical times Branch daily as needed for Abdominal pain. loperamide 2020-0 Yes [id number] 2mg Take 1 [facility] 2 mg 6-25 capsule by [facility] capsule 00:00: mouth [place] 00 every 4 Medical (four) Branch hours as needed for Diarrhea. dicyclomine 2020-0 Yes [id number] 10mg Take 1 [facility] 10 mg 6-25 capsule by [facility] capsule 00:00: mouth 3 (three) Medical times Branch daily as needed for Abdominal pain. loperamide 2020-0 Yes [id number] 2mg Take 1 [facility] 2 mg 6-25 capsule by [facility] capsule 00:00: mouth [place] 00 every 4 Medical (four) Branch hours as needed for Diarrhea. dicyclomine 2020-0 Yes [id number] 10mg Take 1 [facility] 10 mg 6-25 capsule by [facility] capsule 00:00: mouth 3 00 (three) Medical times Branch daily as needed for Abdominal pain. loperamide 2020-0 Yes [id number] 2mg Take 1 [facility] 2 mg 6-25 capsule by [facility] capsule 00:00: mouth [place] 00 every 4 Medical (four) Branch hours as needed for Diarrhea. dicyclomine 2020-0 Yes [id number] 10mg Take 1 [facility] 10 mg 6-25 capsule by [facility] capsule 00:00: mouth (three) Medical times Branch daily as needed for Abdominal pain. loperamide 2020-0 Yes [id number] 2mg Take 1 [facility] 2 mg 6-25 capsule by [facility] capsule 00:00: mouth [place] 00 every 4 Medical (four) Branch hours as needed for Diarrhea. dicyclomine 2020-0 Yes [id number] 10mg Take 1 [facility] 10 mg 6-25 capsule by [facility] capsule 00:00: mouth 3 (three) Medical times Branch daily as needed for Abdominal pain. loperamide 2020-0 Yes [id number] 2mg Take 1 [facility] 2 mg 6-25 capsule by [facility] capsule 00:00: mouth [place] 00 every 4 Medical (four) Branch hours as needed for Diarrhea. dicyclomine 2020-0 Yes [id number] 10mg Take 1 [facility] 10 mg 6-25 capsule by [facility] capsule 00:00: mouth 3 (three) Medical times Branch daily as needed for Abdominal pain. loperamide 2020-0 Yes [id number] 2mg Take 1 [facility] 2 mg 6-25 capsule by [facility] capsule 00:00: mouth [place] 00 every 4 Medical (four) Branch hours as needed for Diarrhea. dicyclomine 2020-0 Yes [id number] 10mg Take 1 [facility] 10 mg 6-25 capsule by [facility] capsule 00:00: mouth 3 (three) Medical times Branch daily as needed for Abdominal pain. loperamide 2020-0 Yes [id number] 2mg Take 1 [facility] 2 mg 6-25 capsule by [facility] capsule 00:00: mouth [place] 00 every 4 Medical (four) Branch hours as needed for Diarrhea. dicyclomine 2020-0 Yes [id number] 10mg Take 1 [facility] 10 mg 6-25 capsule by [facility] capsule 00:00: mouth 3 (three) Medical times Branch daily as needed for Abdominal pain. loperamide 2020-0 Yes [id number] 2mg Take 1 [facility] 2 mg 6-25 capsule by [facility] capsule 00:00: mouth [place] 00 every 4 Medical (four) Branch hours as needed for Diarrhea. dicyclomine 2020-0 Yes [id number] 10mg Take 1 [facility] 10 mg 6-25 capsule by [facility] capsule 00:00: mouth (three) Medical times Branch daily as needed for Abdominal pain. loperamide 2020-0 Yes [id number] 2mg Take 1 [facility] 2 mg 6-25 capsule by [facility] capsule 00:00: mouth [place] 00 every 4 Medical (four) Branch hours as needed for Diarrhea. dicyclomine 2020-0 Yes [id number] 10mg Take 1 [facility] 10 mg 6-25 capsule by [facility] capsule 00:00: mouth 3 (three) Medical times Branch daily as needed for Abdominal pain. loperamide 2020-0 Yes [id number] 2mg Take 1 [facility] 2 mg 6-25 capsule by [facility] capsule 00:00: mouth [place] 00 every 4 Medical (four) Branch hours as needed for Diarrhea. dicyclomine 2020-0 Yes [id number] 10mg Take 1 [facility] 10 mg 6-25 capsule by [facility] capsule 00:00: mouth 3 (three) Medical times Branch daily as needed for Abdominal pain. loperamide 2020-0 Yes [id number] 2mg Take 1 [facility] 2 mg 6-25 capsule by [facility] capsule 00:00: mouth [place] 00 every 4 Medical (four) Branch hours as needed for Diarrhea. dicyclomine 2020-0 Yes [id number] 10mg Take 1 [facility] 10 mg 6-25 capsule by [facility] capsule 00:00: mouth 3 (three) Medical times Branch daily as needed for Abdominal pain. loperamide 2020-0 Yes [id number] 2mg Take 1 [facility] 2 mg 6-25 capsule by [facility] capsule 00:00: mouth [place] 00 every 4 Medical (four) Branch hours as needed for Diarrhea. dicyclomine 2020-0 Yes [id number] 10mg Take 1 [facility] 10 mg 6-25 capsule by [facility] capsule 00:00: mouth 3 (three) Medical times Branch daily as needed for Abdominal pain. loperamide 2020-0 Yes [id number] 2mg Take 1 [facility] 2 mg 6-25 capsule by [facility] capsule 00:00: mouth [place] 00 every 4 Medical (four) Branch hours as needed for Diarrhea. dicyclomine 2020-0 Yes [id number] 10mg Take 1 [facility] 10 mg 6-25 capsule by [facility] of capsule 00:00: mouth (three) Medical times Branch daily as needed for Abdominal pain. loperamide 2020-0 Yes [id number] 2mg Take 1 [facility] 2 mg 6-25 capsule by [facility] capsule 00:00: mouth [place] 00 every 4 Medical (four) Branch hours as needed for Diarrhea. dicyclomine 2020-0 Yes [id number] 10mg Take 1 [facility] 10 mg 6-25 capsule by [facility] of capsule 00:00: mouth (three) Medical times Branch daily as needed for Abdominal pain. loperamide 2020-0 Yes [id number] 2mg Take 1 [facility] 2 mg 6-25 capsule by [facility] of capsule 00:00: mouth 00 every 4 Medical (four) Branch hours as needed for Diarrhea. dicyclomine 2020-0 Yes [id number] 10mg Take 1 [facility] 10 mg 6-25 capsule by [facility] capsule 00:00: mouth 3 (three) Medical times Branch daily as needed for Abdominal pain. loperamide 2020-0 Yes [id number] 2mg Take 1 [facility] 2 mg 6-25 capsule by [facility] capsule 00:00: mouth [place] 00 every 4 Medical (four) Branch hours as needed for Diarrhea. dicyclomine 2020-0 Yes [id number] 10mg Take 1 [facility] 10 mg 6-25 capsule by [facility] of capsule 00:00: mouth 3 00 (three) Medical times Branch daily as needed for Abdominal pain. loperamide 2020-0 Yes [id number] 2mg Take 1 [facility] 2 mg 6-25 capsule by [facility] capsule 00:00: mouth every 4 Medical (four) Branch hours as needed for Diarrhea. dicyclomine 2020-0 Yes [id number] 10mg Take 1 [facility] 10 mg 6-25 capsule by [facility] of capsule 00:00: mouth (three) Medical times Branch daily as needed for Abdominal pain. loperamide 2020-0 Yes [id number] 2mg Take 1 [facility] 2 mg 6-25 capsule by [facility] capsule 00:00: mouth every 4 Medical (four) Branch hours as needed for Diarrhea. dicyclomine 2020-0 Yes [id number] 10mg Take 1 [facility] 10 mg 6-25 capsule by [facility] of capsule 00:00: mouth (three) Medical times Branch daily as needed for Abdominal pain. loperamide 2020-0 Yes [id number] 2mg Take 1 [facility] 2 mg 6-25 capsule by [facility] capsule 00:00: mouth every 4 Medical (four) Branch hours as needed for Diarrhea. dicyclomine 2020-0 Yes [id number] 10mg Take 1 [facility] 10 mg 6-25 capsule by [facility] of capsule 00:00: mouth (three) Medical times Branch daily as needed for Abdominal pain. loperamide 2020-0 Yes [id number] 2mg Take 1 [facility] 2 mg 6-25 capsule by [facility] capsule 00:00: mouth every 4 Medical (four) Branch hours as needed for Diarrhea. dicyclomine 2020-0 Yes [id number] 10mg Take 1 [facility] 10 mg 6-25 capsule by [facility] of capsule 00:00: mouth (three) Medical times Branch daily as needed for Abdominal pain. loperamide 2020-0 Yes [id number] 2mg Take 1 [facility] 2 mg 6-25 capsule by [facility] capsule 00:00: mouth 00 every 4 Medical (four) Branch hours as needed for Diarrhea. dicyclomine 2020-0 Yes [id number] 10mg Take 1 [facility] 10 mg 6-25 capsule by [facility] of capsule 00:00: mouth (three) Medical times Branch daily as needed for Abdominal pain. loperamide 2020-0 Yes [id number] 2mg Take 1 [facility] 2 mg 6-25 capsule by [facility] capsule 00:00: mouth every 4 Medical (four) Branch hours as needed for Diarrhea. dicyclomine 2020-0 Yes [id number] 10mg Take 1 [facility] 10 mg 6-25 capsule by [facility] of capsule 00:00: mouth (three) Medical times Branch daily as needed for Abdominal pain. loperamide 2020-0 Yes [id number] 2mg Take 1 [facility] 2 mg 6-25 capsule by [facility] capsule 00:00: mouth every 4 Medical (four) Branch hours as needed for Diarrhea. dicyclomine 2020-0 Yes [id number] 10mg Take 1 [facility] 10 mg 6-25 capsule by [facility] capsule 00:00: mouth (three) Medical times Branch daily as needed for Abdominal pain. loperamide 2020-0 Yes [id number] 2mg Take 1 [facility] 2 mg 6-25 capsule by [facility] capsule 00:00: mouth every 4 Medical (four) Branch hours as needed for Diarrhea. dicyclomine 2020-0 Yes [id number] 10mg Take 1 [facility] 10 mg 6-25 capsule by [facility] capsule 00:00: mouth (three) Medical times Branch daily as needed for Abdominal pain. loperamide 2020-0 Yes [id number] 2mg Take 1 [facility] 2 mg 6-25 capsule by [facility] capsule 00:00: mouth every 4 Medical (four) Branch hours as needed for Diarrhea. dicyclomine 2020-0 Yes [id number] 10mg Take 1 [facility] 10 mg 6-25 capsule by [facility] of capsule 00:00: mouth (three) Medical times Branch daily as needed for Abdominal pain. loperamide 2020-0 Yes [id number] 2mg Take 1 [facility] 2 mg 6-25 capsule by [facility] capsule 00:00: mouth every 4 Medical (four) Branch hours as needed for Diarrhea. dicyclomine 2020-0 Yes [id number] 10mg Take 1 [facility] 10 mg 6-25 capsule by [facility] of capsule 00:00: mouth 3 [place] 00 (three) Medical times Branch daily as needed for Abdominal pain. loperamide 2020-0 Yes [id number] 2mg Take 1 [facility] 2 mg 6-25 capsule by [facility] of capsule 00:00: mouth [place] 00 every 4 Medical (four) Branch hours as needed for Diarrhea. dicyclomine 1-0 Yes [id number] 10mg Take 1 [facility] 10 mg 6-25 capsule by [facility] of capsule 00:00: mouth 3 (three) Medical times Branch daily as needed for Abdominal pain. loperamide 2020-0 Yes [id number] 2mg Take 1 [facility] 2 mg 6-25 capsule by [facility] of capsule 00:00: mouth [place] 00 every 4 Medical (four) Branch hours as needed for Diarrhea. dicyclomine 2020-0 Yes [id number] 10mg Take 1 [facility] 10 mg 6-25 capsule by [facility] of capsule 00:00: mouth (three) Medical times Branch daily as needed for Abdominal pain. loperamide 2020-0 Yes [id number] 2mg Take 1 [facility] 2 mg 6-25 capsule by [facility] of capsule 00:00: mouth [place] 00 every 4 Medical (four) Branch hours as needed for Diarrhea. dicyclomine 2020-0 Yes [id number] 10mg Take 1 [facility] 10 mg 6-25 capsule by [facility] of capsule 00:00: mouth (three) Medical times Branch daily as needed for Abdominal pain. loperamide 2020-0 Yes [id number] 2mg Take 1 [facility] 2 mg 6-25 capsule by [facility] of capsule 00:00: mouth 00 every 4 Medical (four) Branch hours as needed for Diarrhea. dicyclomine 2020-0 Yes [id number] 10mg Take 1 [facility] 10 mg 6-25 capsule by [facility] of capsule 00:00: mouth 3 (three) Medical times Branch daily as needed for Abdominal pain. loperamide 1-0 Yes [id number] 2mg Take 1 [facility] 2 mg 6-25 capsule by [facility] of capsule 00:00: mouth [place] 00 every 4 Medical (four) Branch hours as needed for Diarrhea. dicyclomine 2021-0 Yes [id number] 10mg Take 1 [facility] 10 mg 6-25 capsule by [facility] of capsule 00:00: mouth 3 (three) Medical times Branch daily as needed for Abdominal pain. loperamide 2020-0 Yes [id number] 2mg Take 1 [facility] 2 mg 6-25 capsule by [facility] of capsule 00:00: mouth [place] 00 every 4 Medical (four) Branch hours as needed for Diarrhea. dicyclomine 2020-0 Yes [id number] 10mg Take 1 [facility] 10 mg 6-25 capsule by [facility] of capsule 00:00: mouth 3 (three) Medical times Branch daily as needed for Abdominal pain. loperamide 2020-0 Yes [id number] 2mg Take 1 [facility] 2 mg 6-25 capsule by [facility] of capsule 00:00: mouth [place] 00 every 4 Medical (four) Branch hours as needed for Diarrhea. dicyclomine 2020-0 Yes [id number] 10mg Take 1 [facility] 10 mg 6-25 capsule by [facility] of capsule 00:00: mouth (three) Medical times Branch daily as needed for Abdominal pain. loperamide 0 Yes [id number] 2mg Take 1 [facility] 2 mg 6-25 capsule by [facility] of capsule 00:00: mouth 00 every 4 Medical (four) Branch hours as needed for Diarrhea. dicyclomine 2020-0 Yes [id number] 10mg Take 1 [facility] 10 mg 6-25 capsule by [facility] of capsule 00:00: mouth (three) Medical times Branch daily as needed for Abdominal pain. loperamide 2020-0 Yes [id number] 2mg Take 1 [facility] 2 mg 6-25 capsule by [facility] of capsule 00:00: mouth 00 every 4 Medical (four) Branch hours as needed for Diarrhea. dicyclomine 2020-0 Yes [id number] 10mg Take 1 [facility] 10 mg 6-25 capsule by [facility] of capsule 00:00: mouth 3 (three) Medical times Branch daily as needed for Abdominal pain. loperamide 2020-0 Yes [id number] 2mg Take 1 [facility] 2 mg 6-25 capsule by [facility] of capsule 00:00: mouth [place] 00 every 4 Medical (four) Branch hours as needed for Diarrhea. dicyclomine 2020-0 Yes [id number] 10mg Take 1 [facility] 10 mg 6-25 capsule by [facility] of capsule 00:00: mouth 3 (three) Medical times Branch daily as needed for Abdominal pain. loperamide 2020-0 Yes [id number] 2mg Take 1 [facility] 2 mg 6-25 capsule by [facility] of capsule 00:00: mouth [place] 00 every 4 Medical (four) Branch hours as needed for Diarrhea. dicyclomine 2020-0 Yes [id number] 10mg Take 1 [facility] 10 mg 6-25 capsule by [facility] of capsule 00:00: mouth 3 [place] 00 (three) Medical times Branch daily as needed for Abdominal pain. loperamide 2020-0 Yes [id number] 2mg Take 1 [facility] 2 mg 6-25 capsule by [facility] of capsule 00:00: mouth [place] 00 every 4 Medical (four) Branch hours as needed for Diarrhea. dicyclomine 2020-0 Yes [id number] 10mg Take 1 [facility] 10 mg 6-25 capsule by [facility] of capsule 00:00: mouth 3 (three) Medical times Branch daily as needed for Abdominal pain. loperamide 2020-0 Yes [id number] 2mg Take 1 [facility] 2 mg 6-25 capsule by [facility] of capsule 00:00: mouth [place] 00 every 4 Medical (four) Branch hours as needed for Diarrhea. dicyclomine 0 Yes [id number] 10mg Take 1 [facility] 10 mg 6-25 capsule by [facility] of capsule 00:00: mouth (three) Medical times Branch daily as needed for Abdominal pain. loperamide 2020-0 Yes [id number] 2mg Take 1 [facility] 2 mg 6-25 capsule by [facility] of capsule 00:00: mouth [place] 00 every 4 Medical (four) Branch hours as needed for Diarrhea. dicyclomine 2020-0 Yes [id number] 10mg Take 1 [facility] 10 mg 6-25 capsule by [facility] of capsule 00:00: mouth 3 (three) Medical times Branch daily as needed for Abdominal pain. loperamide 2020-0 Yes [id number] 2mg Take 1 [facility] 2 mg 6-25 capsule by [facility] of capsule 00:00: mouth [place] 00 every 4 Medical (four) Branch hours as needed for Diarrhea. dicyclomine 2020-0 Yes [id number] 10mg Take 1 [facility] 10 mg 6-25 capsule by [facility] of capsule 00:00: mouth 3 00 (three) Medical times Branch daily as needed for Abdominal pain. loperamide 2021-0 Yes [id number] 2mg Take 1 [facility] 2 mg 6-25 capsule by [facility] of capsule 00:00: mouth [place] 00 every 4 Medical (four) Branch hours as needed for Diarrhea. dicyclomine 0 Yes [id number] 10mg Take 1 [facility] 10 mg 6-25 capsule by ity of capsule 00:00: mouth 3 [place] 00 (three) Medical times Branch daily as needed for Abdominal pain. loperamide 0 Yes [id number] 2mg Take 1 [facility] 2 mg 6-25 capsule by [facility]y of capsule 00:00: mouth [place] 00 every 4 Medical (four) Branch hours as needed for Diarrhea. Toradol Toradol 0 No 60mg [facility] (Ketorolac) (Ketorolac) 3-17 S pirit 00:00: - [facility] Toradol Toradol 2020-0 No 60mg Common (Ketorolac) (Ketorolac) 3-17 S pirit 00:00: - [facility] Toradol Toradol 2020-0 No 60mg Common (Ketorolac) (Ketorolac) 3-17 S pirit 00:00: - [facility] Toradol Toradol 2020-0 No 60mg Common (Ketorolac) (Ketorolac) 3-17 S pirit 00:00: - [facility] Toradol Toradol 2020-0 No 60mg Common (Ketorolac) (Ketorolac) 3-17 S pirit 00:00: - [facility] Toradol Toradol 2020-0 No 60mg Common (Ketorolac) (Ketorolac) 3-17 S pirit 00:00: - [facility] Toradol Toradol 2020-0 No 60mg Common (Ketorolac) (Ketorolac) 3-17 S pirit 00:00: - [facility] Toradol Toradol 2020-0 No 60mg Common (Ketorolac) (Ketorolac) 3-17 S pirit 00:00: - [facility] Toradol Toradol 2020-0 No 60mg Common (Ketorolac) (Ketorolac) 3-17 S pirit 00:00: - [facility] Desloratadi Desloratadi 2021-0 No 1{table QD Desloratad [...] (Ketorolac) 3-17 S pirit 00:00: - [facility] Desloratadi Desloratadi 2020-0 No 1{table QD Desloratad ne 5 MG ne 5 MG 3-17 t} ine 5 MG 00:00: 00 Toradol Toradol 2020-0 No 60mg Common (Ketorolac) (Ketorolac) 3-17 S pirit 00:00: - [facility] Desloratadi Desloratadi 2020-0 No 1{table QD Desloratad ne 5 MG ne 5 MG 3-17 t} ine 5 MG 00:00: 00 Toradol Toradol 2020-0 No 60mg Common (Ketorolac) (Ketorolac) 3-17 S pirit 00:00: - [facility] Desloratadi Desloratadi 2020-0 No 1{table QD Desloratad ne 5 MG ne 5 MG 3-17 t} ine 5 MG 00:00: 00 Toradol Toradol 2020-0 No 60mg Common (Ketorolac) (Ketorolac) 3-17 S pirit 00:00: - [facility] Toradol Toradol 2020-0 No 60mg Common (Ketorolac) (Ketorolac) 3-17 S pirit 00:00: - [facility] Toradol Toradol 2020-0 No 60mg Common (Ketorolac) (Ketorolac) 3-17 S pirit 00:00: - [facility] Toradol Toradol 2020-0 No 60mg Common (Ketorolac) (Ketorolac) 3-17 S pirit 00:00: - [facility] Toradol Toradol 2020-0 No 60mg Common (Ketorolac) (Ketorolac) 3-17 S pirit 00:00: - [facility] Toradol Toradol 2020-0 No 60mg Common (Ketorolac) (Ketorolac) 3-17 S pirit 00:00: - [facility] Toradol Toradol 2020-0 No 60mg Common (Ketorolac) (Ketorolac) 3-17 S pirit 00:00: - [facility] tiZANidine 2020-0 Yes TAKE 1 Unive rs [...] tablet Common ne Sodium ne Sodium 4-07 [place] in the Sp coretta 00:00: morning on an empty [facility] metFORMIN metFORMIN No 1{table BID metFORMIN HCl [...] 1 tablet Common ne Sodium ne Sodium [place] in the Sp coretta morning on - [facility] an empty stomach [facility] daily Gabapentin Gabapentin Yes Ruth TK 2 Co mmon [place] CAPSULES Spirit PO QID PRN - [facility] Ondansetron Ondansetron Yes Ruth TK 1 T PO Common HCl HCl [place] QD FOR [address] [facility] Duloxetine Duloxetine Yes Ruth not Co mmon HCl HCl [place] defined [facility] Breo Breo Yes Ruth 1 puff Common Ellipta Ellipta [place] [facility] Topiramate Topiramate Yes Ruth 1 tablet Common [place] [facility] Albuterol Albuterol Yes Ruth 3 ml as C ommon Sulfate Sulfate [place] needed [facility] Trazodone Trazodone Yes Ruth TK 1 TO 2 Common HCl HCl [place] TS PO HS Spirit PRF - [facility] Tizanidine Tizanidine Yes Ruth 1 tablet Common HCl HCl [place] as needed [facility] Norvasc Norvasc Yes Ruth 1 tablet Comm on [place] [facility] Estradiol Estradiol Yes [facility] as Comm on [place] directed [facility] [facility] Suc[facility]fate Sucralfate Yes Ruth 1 tablet Common [place] on an [facility] empty - [facility] stomach [facility] Nystatin Nystatin Yes Ruth 1 Common [place] applicatio [facility] n [facility] Albuterol Albuterol Yes Ruth INL 2 PFS Common Sulfate HFA Sulfate HFA [place] PO Q 6 H Spirit PRN [facility] Meloxicam Meloxicam Yes Ruth TK 1 T PO Common [place] QD [facility] Loratadine Loratadine Yes Ruth TK 1 T PO Common [place] QD FOR [facility] ALLERGIES [facility] Simvastatin Simvastatin Yes Ruth 1 tablet Common [place] in the [facility] evening [facility] Pantoprazol Pantoprazol Yes Ruth 1 tablet Common e Sodium e Sodium [place] [facility] Lorazepam Lorazepam Yes Ruth 1 tablet Common [place] at bedtime [facility] as needed [facility] Metformin Metformin Yes Ruth TAKE 1 Co [facility]mon HCl HCl [place] TABLET BY [facility] MOUTH - [facility] TWICE [facility] DAILY WITH [facility] Divalproex Divalproex Yes Ruth 1 tablet Common Sodium ER Sodium ER [place] Spir [facility] Quetiapine Quetiapine Yes Ruth 1 tablet Common Fumarate Fumarate [place] at bedtime [facility] Tramadol Tramadol Yes Ruth 1 tablet Co [facility]mon HCl HCl [place] as needed [facility] Botox Botox Yes Ruth as Common [place] directed [facility] Januvia Januvia Yes Ruth 1 tablet Comm on [place] [facility] Divalproex Divalproex Yes Ruth 3 tabs Common Sodium ER Sodium ER [place] Spir [facility] Simvastatin Simvastatin Yes Ruth TAKE 1 Common [place] TABLET BY [facility] MOUTH - [facility] EVERY DAY [facility] Losartan Losartan Yes Ruth 1 tablet Co [facility]mon Potassium Potassium [place] Spir [facility] Simvastatin Simvastatin No 1{table QD Simvastati [...] 50 MG t_as_ne HCl 50 MG eded} Levothyroxi Levothyroxi No QD Levothyrox ne Sodium ne Sodium ine Sodium 200 MCG 200 MCG 200 MCG Montelukast Montelukast No Montelukas Sodium 10 Sodium 10 t Sodium MG MG 10 MG amLODIPine amLODIPine No amLODIPine Besylate 5 Besylate 5 Besylate 5 MG MG MG Spironolact Spironolact No Spironolac one 25 MG one 25 MG tone 25 MG Montelukast Montelukast No Montelukas Sodium 10 Sodium 10 t Sodium MG MG 10 MG Fluticasone Fluticasone No 1{spray BID Fluticason Propionate Propionate _in_eac e 50 MCG/ACT 50 MCG/ACT h_nostr Propionate il} 50 MCG/ACT Simvastatin Simvastatin No 1{table QD Simvastati 20 20 t_in_th n 20 e_eveni ng} Nurtec 75 Nurtec 75 No 1{table Nurtec 75 MG MG t_on_th MG e_tongu e_and_a llow_to _dissol ve} Meloxicam Meloxicam No 1{table QD Meloxicam 15 MG 15 MG t} 15 MG tiZANidine tiZANidine No 1{table BID tiZANidine HCl 2 MG HCl 2 MG t_as_ne HCl 2 MG eded} Estradiol Estradiol No Estradiol 0.1 MG/GM 0.1 MG/GM 0.1 MG/GM traZODone traZODone No traZODone HCl 150 MG HCl 150 MG HCl 150 MG DULoxetine DULoxetine No 1{capsu BID DULoxetine HCl 60 MG HCl 60 MG le} HCl 60 MG Albuterol Albuterol No 3{ml_as QID Albuterol Sulfate Sulfate _needed Sulfate (2.5 (2.5 } (2.5 MG/3ML) MG/3ML) MG/3ML) 0.083% 0.083% 0.083% Trelegy Trelegy No 1{puff} QD Trelegy Ellipta Ellipta Ellipta 200-62.5-25 200-62.5-25 200-62.5-2 MCG/ACT MCG/ACT 5 MCG/ACT QUEtiapine QUEtiapine No 1{table QD QUEtiapine Fumarate Fumarate t_at_be Fumarate 300 MG 300 MG dtime} 300 MG traMADol traMADol No 1{table TID traMADol HCl 50 MG HCl 50 MG t_as_ne HCl 50 MG eded} Divalproex Divalproex No 1{table QD Divalproex Sodium 500 Sodium 500 t} Sodium 500 MG MG MG Sucralfate Sucralfate No 10{ml_o BID Sucralfate 1 GM/10ML 1 GM/10ML n_an_em 1 GM/10ML pty_sto mach} Omeprazole Omeprazole No QD Omeprazole 40 MG 40 MG 40 MG hydrOXYzine hydrOXYzine No 1{table QD hydrOXYzin HCl 25 MG HCl 25 MG t_at_be e HCl 25 dtime_a MG s_neede d} Gabapentin Gabapentin No 1{capsu Gabapentin 300 MG 300 MG le} 300 MG Deutetraben Deutetraben No 1{table BID Deutetrabe azine 9 MG azine 9 MG t_with_ nazine 9 food} MG Losartan Losartan No QD Losartan Potassium Potassium Potassium 50 MG 50 MG 50 MG Levothyroxi Levothyroxi No QD Levothyrox ne Sodium ne Sodium ine Sodium 200 MCG 200 MCG 200 MCG Montelukast Montelukast No Montelukas Sodium 10 Sodium 10 t Sodium MG MG 10 MG amLODIPine amLODIPine No amLODIPine Besylate 5 Besylate 5 Besylate 5 MG MG MG Spironolact Spironolact No Spironolac one 25 MG one 25 MG tone 25 MG Montelukast Montelukast No Montelukas Sodium 10 Sodium 10 t Sodium MG MG 10 MG Fluticasone Fluticasone No 1{spray BID Fluticason Propionate Propionate _in_eac e 50 MCG/ACT 50 MCG/ACT h_nostr Propionate il} 50 MCG/ACT Simvastatin Simvastatin No 1{table QD Simvastati 20 20 t_in_th n 20 e_eveni ng} Nurtec 75 Nurtec 75 No 1{table Nurtec 75 MG MG t_on_th MG e_tongu e_and_a llow_to _dissol ve} Meloxicam Meloxicam No 1{table QD Meloxicam 15 MG 15 MG t} 15 MG tiZANidine tiZANidine No 1{table BID tiZANidine HCl 2 MG HCl 2 MG t_as_ne HCl 2 MG eded} Estradiol Estradiol No Estradiol 0.1 MG/GM 0.1 MG/GM 0.1 MG/GM traZODone traZODone No traZODone HCl 150 MG HCl 150 MG HCl 150 MG DULoxetine DULoxetine No 1{capsu BID DULoxetine HCl 60 MG HCl 60 MG le} HCl 60 MG Albuterol Albuterol No 3{ml_as QID Albuterol Sulfate Sulfate _needed Sulfate (2.5 (2.5 } (2.5 MG/3ML) MG/3ML) MG/3ML) 0.083% 0.083% 0.083% Trelegy Trelegy No 1{puff} QD Trelegy Ellipta Ellipta Ellipta 200-62.5-25 200-62.5-25 200-62.5-2 MCG/ACT MCG/ACT 5 MCG/ACT QUEtiapine QUEtiapine No 1{table QD QUEtiapine Fumarate Fumarate t_at_be Fumarate 300 MG 300 MG dtime} 300 MG traMADol traMADol No 1{table TID traMADol HCl 50 MG HCl 50 MG t_as_ne HCl 50 MG eded} Divalproex Divalproex No 1{table QD Divalproex Sodium 500 Sodium 500 t} Sodium 500 MG MG MG Sucralfate Sucralfate No 10{ml_o BID Sucralfate 1 GM/10ML 1 GM/10ML n_an_em 1 GM/10ML pty_sto mach} Omeprazole Omeprazole No QD Omeprazole 40 MG 40 MG 40 MG hydrOXYzine hydrOXYzine No 1{table QD hydrOXYzin HCl 25 MG HCl 25 MG t_at_be e HCl 25 dtime_a MG s_neede d} Gabapentin Gabapentin No 1{capsu Gabapentin 300 MG 300 MG le} 300 MG Deutetraben Deutetraben No 1{table BID Deutetrabe azine 9 MG azine 9 MG t_with_ nazine 9 food} MG Losartan Losartan No QD Losartan Potassium Potassium Potassium 50 MG 50 MG 50 MG Spironolact Spironolact No Spironolac one 25 MG one 25 MG tone 25 MG traMADol traMADol No 1{table TID traMADol HCl 50 MG HCl 50 MG t_as_ne HCl 50 MG eded} Simvastatin Simvastatin No 1{table QD Simvastati 20 20 t_in_th n 20 e_eveni ng} tiZANidine tiZANidine No 1{table BID tiZANidine HCl 2 MG HCl 2 MG t_as_ne HCl 2 MG eded} QUEtiapine QUEtiapine No 1{table QD QUEtiapine Fumarate Fumarate t_at_be Fumarate 300 MG 300 MG dtime} 300 MG Levothyroxi Levothyroxi No QD Levothyrox ne Sodium ne Sodium ine Sodium 200 MCG 200 MCG 200 MCG Albuterol Albuterol No 3{ml_as QID Albuterol Sulfate Sulfate _needed Sulfate (2.5 (2.5 } (2.5 MG/3ML) MG/3ML) MG/3ML) 0.083% 0.083% 0.083% Gabapentin Gabapentin No 1{capsu Gabapentin 300 MG 300 MG le} 300 MG Trelegy Trelegy No 1{puff} QD Trelegy Ellipta Ellipta Ellipta 200-62.5-25 200-62.5-25 200-62.5-2 MCG/ACT MCG/ACT 5 MCG/ACT Estradiol Estradiol No Estradiol 0.1 MG/GM 0.1 MG/GM 0.1 MG/GM Divalproex Divalproex No 1{table QD Divalproex Sodium 500 Sodium 500 t} Sodium 500 MG MG MG DULoxetine DULoxetine No 1{capsu BID DULoxetine HCl 60 MG HCl 60 MG le} HCl 60 MG hydrOXYzine hydrOXYzine No 1{table QD hydrOXYzin HCl 25 MG HCl 25 MG t_at_be e HCl 25 dtime_a MG s_neede d} Losartan Losartan No QD Losartan Potassium Potassium Potassium 50 MG 50 MG 50 MG Omeprazole Omeprazole No QD Omeprazole 40 MG 40 MG 40 MG Fluticasone Fluticasone No 1{spray BID Fluticason Propionate Propionate _in_eac e 50 MCG/ACT 50 MCG/ACT h_nostr Propionate il} 50 MCG/ACT Meloxicam Meloxicam No 1{table QD Meloxicam 15 MG 15 MG t} 15 MG traZODone traZODone No traZODone HCl 150 MG HCl 150 MG HCl 150 MG Deutetraben Deutetraben No 1{table BID Deutetrabe azine 9 MG azine 9 MG t_with_ nazine 9 food} MG Nurtec 75 Nurtec 75 No 1{table Nurtec 75 MG MG t_on_th MG e_tongu e_and_a llow_to _dissol ve} Montelukast Montelukast No Montelukas Sodium 10 Sodium 10 t Sodium MG MG 10 MG Sucralfate Sucralfate No 10{ml_o BID Sucralfate 1 GM/10ML 1 GM/10ML n_an_em 1 GM/10ML pty_sto mach} amLODIPine amLODIPine No amLODIPine Besylate 5 Besylate 5 Besylate 5 MG MG MG Montelukast Montelukast No Montelukas Sodium 10 [...] 300 MG Nystatin Nystatin No 1{appli Nystatin [id number] cation} [id number] UNIT/GM UNIT/GM UNIT/GM LORazepam LORazepam No 1{table [...] MG 15 MG 15 MG Januvia 25 Auguvia 25 No 1{table QD [...] Sodium MG MG 40 MG Januvia 25 Auguvia 25 No 1{table QD [...] Besylate 5 Besylate 5 MG MG MG Loratadine Loratadine 2021- No 1{table QD [...] Ruth 1 tablet Common Chloride Chloride 10-31 [place] [facility] t 00:00 - [facility] :00 [facility] Immunizations Ordered Filled Immunization Date Status Comments [facility] e Immunization Name Name Flucelvax - Flucelvax - 2022-05-03 Completed [facility] multidose vial multidose vial 14:53:00 - [facility] Flucelvax - Flucelvax - 2022-05-03 Completed [facility] multidose vial multidose vial 14:53:00 - [facility] Flucelvax - Flucelvax - 2022-05-03 Completed [facility] multidose vial multidose vial 14:53:00 - [facility] Flucelvax - Flucelvax - 2022-05-03 Completed [facility] multidose vial multidose vial 14:53:00 - [facility] Flucelvax - Flucelvax - 2021-05-18 Completed [facility] multidose vial multidose vial 16:08:00 - [facility] Flucelvax - Flucelvax - 2021-05-18 Completed [facility] multidose vial multidose vial 16:08:00 - [facility] Flucelvax - Flucelvax - 2021-05-18 Completed [facility] multidose vial multidose vial 16:08:00 - [facility] Flucelvax - Flucelvax - 2021-05-18 Completed [facility] multidose vial multidose vial 16:08:00 - [facility] Flucelvax - Flucelvax - 2021-05-18 Completed [facility] multidose vial multidose vial 16:08:00 - [facility] Flucelvax - Flucelvax - 2021-05-18 Completed [facility] multidose vial multidose vial 16:08:00 - [facility] Flucelvax - Flucelvax - 2021-05-18 Completed [facility] multidose vial multidose vial 16:08:00 - [facility] Flucelvax - Flucelvax - 2021-05-18 Completed [facility] multidose vial multidose vial 16:08:00 - [facility] Flucelvax - Flucelvax - 2021-05-18 Completed [facility] multidose vial multidose vial 16:08:00 - [facility] Flucelvax - Flucelvax - 2021-05-18 Completed [facility] multidose vial multidose vial 16:08:00 - [facility] Flucelvax - Flucelvax - 2021-05-18 Completed [facility] multidose vial multidose vial 16:08:00 - [facility] Flucelvax - Flucelvax - 2021-05-18 Completed [facility] multidose vial multidose vial 16:08:00 - [facility] Flucelvax - Flucelvax - 2021-05-18 Completed [facility] multidose vial multidose vial 16:08:00 - [facility] Flucelvax - Flucelvax - 2021-05-18 Completed [facility] multidose vial multidose vial 16:08:00 - [facility] Flucelvax - Flucelvax - 2021-05-18 Completed [facility] multidose vial multidose vial 16:08:00 - [facility] Flucelvax - Flucelvax - 2021-05-18 Completed [facility] multidose vial multidose vial 16:08:00 - [facility] Flucelvax - Flucelvax - 2021-05-18 Completed [facility] multidose vial multidose vial 16:08:00 - [facility] Flucelvax - Flucelvax - 2021-05-18 Completed [facility] multidose vial multidose vial 16:08:00 - [facility] Flucelvax - Flucelvax - 2021-05-18 Completed [facility] multidose vial multidose vial 16:08:00 - [facility] Flucelvax - Flucelvax - 2021-05-18 Completed [facility] multidose vial multidose vial 16:08:00 - [facility] Flucelvax - Flucelvax - 2021-05-18 Completed [facility] multidose vial multidose vial 16:08:00 - [facility] Flucelvax - Flucelvax - 2021-05-18 Completed [facility] multidose vial multidose vial 16:08:00 - [facility] Flucelvax - Flucelvax - 2021-05-18 Completed [facility] multidose vial multidose vial 16:08:00 - [facility] Flucelvax - Flucelvax - 2021-05-18 Completed [facility] multidose vial multidose vial 16:08:00 - [facility] Flucelvax - Flucelvax - 2021-05-18 Completed [facility] multidose vial multidose vial 16:08:00 - [facility] Flucelvax - Flucelvax - 2021-05-18 Completed [facility] multidose vial multidose vial 16:08:00 - [facility] Flucelvax - Flucelvax - 2021-05-18 Completed [facility] multidose vial multidose vial 16:08:00 - [facility] Flucelvax - Flucelvax - 2021-05-18 Completed [facility] multidose vial multidose vial 16:08:00 - [facility] Flucelvax - Flucelvax - 2021-05-18 Completed [facility] multidose vial multidose vial 16:08:00 - [facility] Flucelvax - Flucelvax - 2021-05-18 Completed [facility] multidose vial multidose vial 16:08:00 - [facility] Flucelvax - Flucelvax - 2021-05-18 Completed [facility] multidose vial multidose vial 16:08:00 - [facility] COVID-19 Vaccine COVID-19 Vaccine 2020-10-25 Completed [facility] (Dianne) 13:48:00 - [facility] COVID-19 Vaccine COVID-19 Vaccine 2020-10-25 Completed [facility] (Dianne) 13:48:00 - [facility] COVID-19 Vaccine COVID-19 Vaccine 2020-10-25 Completed [facility] ([facility] (Dianne) 13:48:00 - [facility] COVID-19 Vaccine COVID-19 Vaccine 2020-10-25 Completed [facility] (Dianne) 13:48:00 - [facility] COVID-19 Vaccine COVID-19 Vaccine 2020-10-25 Completed [facility] ([facility] (Dianne) 13:48:00 - [facility] COVID-19 Vaccine COVID-19 Vaccine 2020-10-25 Completed [facility] ([facility] (Dianne) 13:48:00 - [facility] COVID-19 Vaccine COVID-19 Vaccine 2020-10-25 Completed [facility] (Dianne) 13:48:00 - [facility] COVID-19 Vaccine COVID-19 Vaccine 2020-10-25 Completed [facility] (Dianne) 13:48:00 - [facility] COVID-19 Vaccine COVID-19 Vaccine 2020-10-25 Completed [facility] (Dianne) 13:48:00 - [facility] COVID-19 Vaccine COVID-19 Vaccine 2020-10-25 Completed [facility] (Dianne) 13:48:00 - [facility] COVID-19 Vaccine COVID-19 Vaccine 2020-10-25 Completed [facility] (Dianne) 13:48:00 - [facility] COVID-19 Vaccine COVID-19 Vaccine 2020-10-25 Completed [facility] ([facility] (Dianne) 13:48:00 - [facility] COVID-19 Vaccine COVID-19 Vaccine 2020-10-25 Completed [facility] (Dianne) 13:48:00 - [facility] COVID-19 Vaccine COVID-19 Vaccine 2020-10-25 Completed [facility] ([facility] (Dianne) 13:48:00 - [facility] COVID-19 Vaccine COVID-19 Vaccine 2020-10-25 Completed [facility] (Dianne) 13:48:00 - [facility] COVID-19 Vaccine COVID-19 Vaccine 2020-10-25 Completed [facility] (Dinane) 13:48:00 - [facility] COVID-19 Vaccine COVID-19 Vaccine 2020-10-25 Completed [facility] (Dianne) 13:48:00 - [facility] COVID-19 Vaccine COVID-19 Vaccine 2020-10-25 Completed [facility] (Dianne) 13:48:00 - [facility] COVID-19 Vaccine COVID-19 Vaccine 2020-10-25 Completed [facility] (Dianne) 13:48:00 - [facility] COVID-19 Vaccine COVID-19 Vaccine 2020-10-25 Completed [facility] (Dianne) 13:48:00 - [facility] COVID-19 Vaccine COVID-19 Vaccine 2020-10-25 Completed [facility] (Dianne) 13:48:00 - [facility] COVID-19 Vaccine COVID-19 Vaccine 2020-10-25 Completed [facility] (Dianne) 13:48:00 - [facility] COVID-19 Vaccine COVID-19 Vaccine 2020-10-25 Completed [facility] (Dianne) 13:48:00 - [facility] COVID-19 Vaccine COVID-19 Vaccine 2020-10-25 Completed [facility] (Dianne) 13:48:00 - [facility] COVID-19 Vaccine COVID-19 Vaccine 2020-10-25 Completed [facility] (Dianne) 13:48:00 [facility] COVID-19 Vaccine COVID-19 Vaccine 2020-10-25 Completed [facility] (Dianne) 13:48:00 [facility] COVID-19 Vaccine COVID-19 Vaccine 2020-10-25 Completed [facility] (Dianne) 13:48:00 [facility] COVID-19 Vaccine COVID-19 Vaccine 2020-10-25 Completed [facility] (Dianne) 13:48:00 [facility] COVID-19 Vaccine COVID-19 Vaccine 2020-10-25 Completed [facility] ([facility] (Dianne) 13:48:00 [facility] COVID-19 Vaccine COVID-19 Vaccine 2020-10-25 Completed [facility] ([facility] (Dianne) 13:48:00 [facility] COVID-19 Vaccine COVID-19 Vaccine 2020-10-25 Completed [facility] (Dianne) 13:48:00 [facility] Toradol (Ketorolac) Toradol (Ketorolac) 2020-10-20 Completed [facility] 12:10:00 [facility] Toradol (Ketorolac) Toradol (Ketorolac) 2020-10-20 Completed [facility] 12:10:00 [facility] Pneumovax (PPSV23) Pneumovax (PPSV23) 2019-06-09 Completed [facility] 09:23:00 [facility] Pneumovax (PPSV23) Pneumovax (PPSV23) 2019-06-09 Completed [facility] 09:23:00 [facility] Pneumovax (PPSV23) Pneumovax (PPSV23) 2019-06-09 Completed [facility] 09:23:00 [facility] Pneumovax (PPSV23) Pneumovax (PPSV23) 2019-06-09 Completed [facility] 09:23:00 [facility] Pneumovax (PPSV23) Pneumovax (PPSV23) 2019-06-09 Completed [facility] 09:23:00 [facility] Pneumovax (PPSV23) Pneumovax (PPSV23) 2019-06-09 Completed [facility] 09:23:00 [facility] Pneumovax (PPSV23) Pneumovax (PPSV23) 2019-06-09 Completed [facility] 09:23:00 - [facility] Pneumovax (PPSV23) Pneumovax (PPSV23) 2019-06-09 Completed [facility] 09:23:00 [facility] Pneumovax (PPSV23) Pneumovax (PPSV23) 2019-06-09 Completed [facility] 09:23:00 [facility] Pneumovax (PPSV23) Pneumovax (PPSV23) 2019-06-09 Completed [facility] 09:23:00 [facility] Pneumovax (PPSV23) Pneumovax (PPSV23) 2019-06-09 Completed [facility] 09:23:00 [facility] Pneumovax (PPSV23) Pneumovax (PPSV23) 2019-06-09 Completed [facility] 09:23:00 - [facility] Pneumovax (PPSV23) Pneumovax (PPSV23) 2019-06-09 Completed [facility] 09:23:00 - [facility] Pneumovax (PPSV23) Pneumovax (PPSV23) 2019-06-09 Completed [facility] 09:23:00 [facility] Pneumovax (PPSV23) Pneumovax (PPSV23) 2019-06-09 Completed [facility] 09:23:00 [facility] Pneumovax (PPSV23) Pneumovax (PPSV23) 2019-06-09 Completed [facility] 09:23:00 [facility] Pneumovax (PPSV23) Pneumovax (PPSV23) 2019-06-09 Completed [facility] 09:23:00 [facility] Pneumovax (PPSV23) Pneumovax (PPSV23) 2019-06-09 Completed [facility] 09:23:00 [facility] Pneumovax (PPSV23) Pneumovax (PPSV23) 2019-06-09 Completed [facility] 09:23:00 [facility] Pneumovax (PPSV23) Pneumovax (PPSV23) 2019-06-09 Completed [facility] 09:23:00 [facility] Pneumovax (PPSV23) Pneumovax (PPSV23) 2019-06-09 Completed [facility] 09:23:00 - [facility] Pneumovax (PPSV23) Pneumovax (PPSV23) 2019-06-09 Completed [facility] 09:23:00 - [facility] Pneumovax (PPSV23) Pneumovax (PPSV23) 2019-06-09 Completed [facility] 09:23:00 [facility] Pneumovax (PPSV23) Pneumovax (PPSV23) 2019-06-09 Completed [facility] 09:23:00 - [facility] Pneumovax (PPSV23) Pneumovax (PPSV23) 2019-06-09 Completed [facility] 09:23:00 [facility] Pneumovax (PPSV23) Pneumovax (PPSV23) 2019-06-09 Completed [facility] 09:23:00 - [facility] Pneumovax (PPSV23) Pneumovax (PPSV23) 2019-06-09 Completed [facility] 09:23:00 - [facility] Pneumovax (PPSV23) Pneumovax (PPSV23) 2019-06-09 Completed [facility] 09:23:00 - [facility] Pneumovax (PPSV23) Pneumovax (PPSV23) 2019-06-09 Completed [facility] 09:23:00 - [facility] Pneumovax (PPSV23) Pneumovax (PPSV23) 2019-06-09 Completed [facility] 09:23:00 [facility] Pneumovax (PPSV23) Pneumovax (PPSV23) 2019-06-09 Completed [facility] 09:23:00 - [facility] Pneumovax Pneumovax 2019-06-09 Completed [facility] 00:00:00 [facility] Flucelvax - single Flucelvax - single 2019-05-30 Completed [facility] dose syringe dose syringe 11:58:00 [facility] Flucelvax - single Flucelvax - single 2019-05-30 Completed [facility] dose syringe dose syringe 11:58:00 - [facility] Flucelvax - single Flucelvax - single 2019-05-30 Completed [facility] dose syringe dose syringe 11:58:00 - [facility] Flucelvax - single Flucelvax - single 2019-05-30 Completed [facility] dose syringe dose syringe 11:58:00 - [facility] Flucelvax - single Flucelvax - single 2019-05-30 Completed [facility] dose syringe dose syringe 11:58:00 - [facility] Flucelvax - single Flucelvax - single 2019-05-30 Completed [facility] dose syringe dose syringe 11:58:00 - [facility] Flucelvax - single Flucelvax - single 2019-05-30 Completed [facility] dose syringe dose syringe 11:58:00 - [facility] Flucelvax - single Flucelvax - single 2019-05-30 Completed [facility] dose syringe dose syringe 11:58:00 - [facility] Flucelvax - single Flucelvax - single 2019-05-30 Completed [facility] dose syringe dose syringe 11:58:00 - [facility] Flucelvax - single Flucelvax - single 2019-05-30 Completed [facility] dose syringe dose syringe 11:58:00 - [facility] Flucelvax - single Flucelvax - single 2019-05-30 Completed [facility] dose syringe dose syringe 11:58:00 - [facility] Flucelvax - single Flucelvax - single 2019-05-30 Completed [facility] dose syringe dose syringe 11:58:00 - [facility] Flucelvax - single Flucelvax - single 2019-05-30 Completed [facility] dose syringe dose syringe 11:58:00 - [facility] Flucelvax - single Flucelvax - single 2019-05-30 Completed [facility] dose syringe dose syringe 11:58:00 - [facility] Flucelvax - single Flucelvax - single 2019-05-30 Completed [facility] dose syringe dose syringe 11:58:00 - [facility] Flucelvax - single Flucelvax - single 2019-05-30 Completed [facility] dose syringe dose syringe 11:58:00 - [facility] Flucelvax - single Flucelvax - single 2019-05-30 Completed [facility] dose syringe dose syringe 11:58:00 - [facility] Flucelvax - single Flucelvax - single 2019-05-30 Completed [facility] dose syringe dose syringe 11:58:00 - [facility] Flucelvax - single Flucelvax - single 2019-05-30 Completed [facility] dose syringe dose syringe 11:58:00 - [facility] Flucelvax - single Flucelvax - single 2019-05-30 Completed [facility] dose syringe dose syringe 11:58:00 - [facility] Flucelvax - single Flucelvax - single 2019-05-30 Completed [facility] dose syringe dose syringe 11:58:00 - [facility] Flucelvax - single Flucelvax - single 2019-05-30 Completed [facility] dose syringe dose syringe 11:58:00 - [facility] Flucelvax - single Flucelvax - single 2019-05-30 Completed [facility] dose syringe dose syringe 11:58:00 - [facility] Flucelvax - single Flucelvax - single 2019-05-30 Completed [facility] dose syringe dose syringe 11:58:00 - [facility] Flucelvax - single Flucelvax - single 2019-05-30 Completed [facility] dose syringe dose syringe 11:58:00 - [facility] Flucelvax - single Flucelvax - single 2019-05-30 Completed [facility] dose syringe dose syringe 11:58:00 - [facility] Flucelvax - single Flucelvax - single 2019-05-30 Completed [facility] dose syringe dose syringe 11:58:00 - [facility] Flucelvax - single Flucelvax - single 2019-05-30 Completed [facility] dose syringe dose syringe 11:58:00 - [facility] Flucelvax - single Flucelvax - single 2019-05-30 Completed [facility] dose syringe dose syringe 11:58:00 - [facility] Flucelvax - single Flucelvax - single 2019-05-30 Completed [facility] dose syringe dose syringe 11:58:00 - [facility] Flucelvax - single Flucelvax - single 2019-05-30 Completed [facility] dose syringe dose syringe 11:58:00 - [facility] Flucelvax - single Flucelvax - single 2019-05-30 Completed [facility] dose syringe dose syringe 00:00:00 - [facility] Prevnar 13 Prevnar 13 2018-05-09 Completed [facility] -Pneumonia Vaccine -Pneumonia Vaccine 09:29:00 - [facility] Prevnar 13 Prevnar 13 2018-05-09 Completed [facility] -Pneumonia Vaccine -Pneumonia Vaccine 09:29:00 - [facility] Prevnar 13 Prevnar 13 2018-05-09 Completed [facility] -Pneumonia Vaccine -Pneumonia Vaccine 09:29:00 - [facility] Prevnar 13 Prevnar 13 2018-05-09 Completed [facility] -Pneumonia Vaccine -Pneumonia Vaccine 09:29:00 - [facility] Prevnar 13 Prevnar 13 2018-05-09 Completed [facility] -Pneumonia Vaccine -Pneumonia Vaccine 09:29:00 - [facility] Prevnar 13 Prevnar 13 2018-05-09 Completed [facility] -Pneumonia Vaccine -Pneumonia Vaccine 09:29:00 - [facility] Prevnar 13 Prevnar 13 2018-05-09 Completed [facility] -Pneumonia Vaccine -Pneumonia Vaccine 09:29:00 - [facility] Prevnar 13 Prevnar 13 2018-05-09 Completed [facility] -Pneumonia Vaccine -Pneumonia Vaccine 09:29:00 - [facility] Prevnar 13 Prevnar 13 2018-05-09 Completed [facility] -Pneumonia Vaccine -Pneumonia Vaccine 09:29:00 - [facility] Prevnar 13 Prevnar 13 2018-05-09 Completed [facility] -Pneumonia Vaccine -Pneumonia Vaccine 09:29:00 - [facility] Prevnar 13 Prevnar 13 2018-05-09 Completed [facility] -Pneumonia Vaccine -Pneumonia Vaccine 09:29:00 - [facility] Prevnar 13 Prevnar 13 2018-05-09 Completed [facility] -Pneumonia Vaccine -Pneumonia Vaccine 09:29:00 - [facility] Prevnar 13 Prevnar 13 2018-05-09 Completed [facility] -Pneumonia Vaccine -Pneumonia Vaccine 09:29:00 - [facility] Prevnar 13 Prevnar 13 2018-05-09 Completed [facility] -Pneumonia Vaccine -Pneumonia Vaccine 09:29:00 - [facility] Prevnar 13 Prevnar 13 2018-05-09 Completed [facility] -Pneumonia Vaccine -Pneumonia Vaccine 09:29:00 - [facility] Prevnar 13 Prevnar 13 2018-05-09 Completed [facility] -Pneumonia Vaccine -Pneumonia Vaccine 09:29:00 - [facility] Prevnar 13 Prevnar 13 2018-05-09 Completed [facility] -Pneumonia Vaccine -Pneumonia Vaccine 09:29:00 - [facility] Prevnar 13 Prevnar 13 2018-05-09 Completed [facility] -Pneumonia Vaccine -Pneumonia Vaccine 09:29:00 - [facility] Prevnar 13 Prevnar 13 2018-05-09 Completed [facility] -Pneumonia Vaccine -Pneumonia Vaccine 09:29:00 - [facility] Prevnar 13 Prevnar 13 2018-05-09 Completed [facility] -Pneumonia Vaccine -Pneumonia Vaccine 09:29:00 - [facility] Prevnar 13 Prevnar 13 2018-05-09 Completed [facility] -Pneumonia Vaccine -Pneumonia Vaccine 09:29:00 - [facility] Prevnar 13 Prevnar 13 2018-05-09 Completed [facility] -Pneumonia Vaccine -Pneumonia Vaccine 09:29:00 - [facility] Prevnar 13 Prevnar 13 2018-05-09 Completed [facility] -Pneumonia Vaccine -Pneumonia Vaccine 09:29:00 - [facility] Prevnar 13 Prevnar 13 2018-05-09 Completed [facility] -Pneumonia Vaccine -Pneumonia Vaccine 09:29:00 - [facility] Prevnar 13 Prevnar 13 2018-05-09 Completed [facility] -Pneumonia Vaccine -Pneumonia Vaccine 09:29:00 - [facility] Prevnar 13 Prevnar 13 2018-05-09 Completed [facility] -Pneumonia Vaccine -Pneumonia Vaccine 09:29:00 - [facility] Prevnar 13 Prevnar 13 2018-05-09 Completed [facility] -Pneumonia Vaccine -Pneumonia Vaccine 09:29:00 - [facility] Prevnar 13 Prevnar 13 2018-05-09 Completed [facility] -Pneumonia Vaccine -Pneumonia Vaccine 09:29:00 - [facility] Prevnar 13 Prevnar 13 2018-05-09 Completed [facility] -Pneumonia Vaccine -Pneumonia Vaccine 09:29:00 [facility] Prevnar 13 Prevnar 13 2018-05-09 Completed [facility] -Pneumonia Vaccine -Pneumonia Vaccine 09:29:00 [facility] Prevnar 13 Prevnar 13 2018-05-09 Completed [facility] -Pneumonia Vaccine -Pneumonia Vaccine 09:29:00 [facility] Prevnar 13 Prevnar 13 2018-05-09 Completed [facility] -Pneumonia Vaccine -Pneumonia Vaccine 00:00:00 [facility] COVID-19 Vaccine COVID-19 Vaccine Unknown [facility] Fluarix Fluarix Unknown Completed [facility] Flucelvax - Flucelvax - Unknown [facility] - [facility] Flucelvax - Flucelvax - Unknown [facility] Flucelvax - single Flucelvax - single Unknown Completed [facility] dose syringe dose syringe [facility] Pneumovax (PPSV23) Pneumovax (PPSV23) Unknown Completed [facility] Prevnar 13 Prevnar 13 Unknown Completed [facility] -Pneumonia Vaccine -Pneumonia Vaccine - [facility] COVID-19 Vaccine COVID-19 Vaccine Unknown Com[facility] Fluarix Fluarix Unknown Completed [facility] Flucelvax - Flucelvax - Unknown [facility] Flucelvax - Flucelvax - Unknown [facility]ial [facility] Flucelvax - single Flucelvax - single Unknown Completed [facility] dose syringe dose syringe [facility] Pneumovax (PPSV23) Pneumovax (PPSV23) Unknown Completed [facility] Prevnar 13 Prevnar 13 Unknown Completed [facility] -Pneumonia Vaccine -Pneumonia Vaccine - [facility] Prevnar 13 Prevnar 13 Unknown Completed [facility] -Pneumonia Vaccine -Pneumonia Vaccine - [facility] Flucelvax - Flucelvax - Unknown [facility] - [facility] COVID-19 Vaccine COVID-19 Vaccine Unknown Com[facility] - [facility] Fluarix Fluarix Unknown Completed [facility] - [facility] Flucelvax - Flucelvax - Unknown [facility] - [facility] Flucelvax - single Flucelvax - single Unknown Completed [facility] dose syringe dose syringe - [facility] Pneumovax (PPSV23) Pneumovax (PPSV23) Unknown Completed [facility] - [facility] Vital Signs Vital Name Observation Time Observation Value Comments Source Systolic blood 2023-06-18 16:20:00 162 mm[Hg] Univer sity of pressure [facility] Diastolic blood 2023-06-18 16:20:00 88 mm[Hg] Unive rsity [facility] Heart rate 2023-06-18 16:20:00 102 /min [facility] Respiratory rate 2023-06-18 16:20:00 21 /min [facility] Oxygen saturation in 2023-06-18 16:20:00 98 /min [facility] Arterial blood by [facility] Pulse oximetry [place] Body temperature 2023-06-18 14:42:00 35.89 Natalia [facility] Body height 2023-06-12 22:00:00 170.2 cm [facility] Body weight 2023-06-12 22:00:00 99.791 kg [facility] BMI 2023-06-12 22:00:00 34.46 kg/m2 [facility] Systolic blood 2023-06-18 15:35:00 181 mm[Hg] Univer sity of [facility] Diastolic blood 2023-06-18 15:35:00 93 mm[Hg] Unive rsity of [facility] Heart rate 2023-06-18 15:35:00 197 /min [facility] Respiratory rate 2023-06-18 15:35:00 18 /min [facility] O[facility] saturation in 2023-06-18 15:35:00 100 /min [facility] Arterial blood by [facility] Pulse oximetry Branch Body temperature 2023-06-18 14:42:00 35.89 Natalia Univ ersity of [facility] Body height 2023-06-12 22:00:00 170.2 cm [facility] [place] Body weight 2023-06-12 22:00:00 99.791 kg [facility] [place] BMI 2023-06-12 22:00:00 34.46 kg/m2 [facility] Systolic blood 2023-05-23 19:16:00 128 mm[Hg] Univer sity of pressure [facility] Diastolic blood 2023-05-23 19:16:00 84 mm[Hg] Unive rsity of pressure [facility] Respiratory rate 2023-05-23 19:16:00 18 /min [facility] Body height 2023-05-23 19:16:00 170.2 cm [facility] [place] Body weight 2023-05-23 19:16:00 102.513 kg [facility] BMI 2023-05-23 19:16:00 35.40 kg/m2 [facility] Body height 2023-04-26 14:16:00 167.6 cm [facility] [place] Body weight 2023-04-26 14:16:00 99.791 kg Universi ty of [facility] BMI 2023-04-26 14:16:00 35.51 kg/m2 [facility] [place] Body height 2023-03-14 13:49:00 165.1 cm [facility] Body weight 2023-03-14 13:49:00 102.513 kg [facility] BMI 2023-03-14 13:49:00 37.61 kg/m2 [facility] Body height 2023-02-23 14:12:00 165.1 cm [facility] Body weight 2023-02-23 14:12:00 102.513 kg [facility] BMI 2023-02-23 14:12:00 37.61 kg/m2 [facility] height 2022-11-01 13:40:00 65.5 [in_i] Common [facility] weight 2022-11-01 13:40:00 208.6 [lb_av] Common [facility] temperature 2022-11-01 13:40:00 98.4 [degF] Common [facility] bmi 2022-11-01 13:40:00 34.18 kg/m2 [facility] oximetry 2022-11-01 13:40:00 99 % [facility] respiratory rate 2022-11-01 13:40:00 16 /min Comm on [facility] blood pressure 2022-11-01 13:40:00 132 mm[Hg] Common [facility] systolic [facility] blood pressure 2022-11-01 13:40:00 70 mm[Hg] [facility] - diastolic [facility] height 2022-11-01 13:00:00 65.5 [in_i] [facility] weight 2022-11-01 13:00:00 208.6 [lb_av] [facility] temperature 2022-11-01 13:00:00 98.4 [degF] [facility] bmi 2022-11-01 13:00:00 34.18 kg/m2 [facility] oximetry 2022-11-01 13:00:00 99 % [facility] respiratory rate 2022-11-01 13:00:00 16 /min Comm on [facility] blood pressure 2022-11-01 13:00:00 132 mm[Hg] [facility] - systolic [facility] blood pressure 2022-11-01 13:00:00 70 mm[Hg] Common [facility] diastolic [facility] Body weight 2022-09-29 16:23:00 91.173 kg [facility] BMI 2022-09-29 16:23:00 32.44 kg/m2 [facility] Body weight 2022-08-24 17:19:00 91.173 kg [facility] BMI 2022-08-24 17:19:00 32.44 kg/m2 [facility] Systolic blood 2022-08-09 19:15:00 133 mm[Hg] [facility] Diastolic blood 2022-08-09 19:15:00 77 mm[Hg] Unive [facility]ity [facility] Heart rate 2022-08-09 19:15:00 103 /min [facility] Body height 2022-08-09 19:14:00 167.6 cm [facility] Body weight 2022-08-09 19:14:00 91.4 kg [facility] BMI 2022-08-09 19:14:00 32.52 kg/m2 [facility] Oxygen saturation in 2022-08-09 19:14:00 100 /min [facility] Arterial blood by [place] [facility] Pulse oximetry [facility] Systolic blood 2022-06-06 20:31:00 139 mm[Hg] [facility] Diastolic blood 2022-06-06 20:31:00 103 mm[Hg] [facility]ive [facility]ity [facility] Heart rate 2022-06-06 20:31:00 98 /min [facility] Body temperature 2022-06-06 20:31:00 36.67 Natalia [facility] Respiratory rate 2022-06-06 20:31:00 20 /min [facility] Body weight 2022-06-06 20:31:00 81.647 kg [facility] BMI 2022-06-06 20:31:00 28.19 kg/m2 [facility] Oxygen saturation in 2022-06-06 20:31:00 100 /min [facility] Arterial blood by [employer] [facility] Pulse oximetry [facility] Systolic blood 2022-05-24 20:04:00 145 mm[Hg] [facility] Diastolic blood 2022-05-24 20:04:00 77 mm[Hg] Unive [facility]ity [facility] Body height 2022-05-24 20:04:00 170.2 cm [facility] Body weight 2022-05-24 20:04:00 85.73 kg Universi ty of [facility] BMI 2022-05-24 20:04:00 29.60 kg/m2 [facility] height 2022-05-03 14:20:00 65.5 [in_i] [facility] weight 2022-05-03 14:20:00 189.6 [lb_av] Common [facility] temperature 2022-05-03 14:20:00 97.8 [degF] Common [facility] bmi 2022-05-03 14:20:00 31.07 kg/m2 [facility] oximetry 2022-05-03 14:20:00 100 % [facility] respiratory rate 2022-05-03 14:20:00 16 /min Comm on [facility] blood pressure 2022-05-03 14:20:00 134 mm[Hg] [facility] - systolic [facility] blood pressure 2022-05-03 14:20:00 82 mm[Hg] [facility] - diastolic [facility] Systolic blood 2022-03-25 00:54:00 164 mm[Hg] Univer sity of [facility] Diastolic blood 2022-03-25 00:54:00 83 mm[Hg] Unive [facility] Heart rate 2022-03-25 00:54:00 95 /min [facility]i [facility] Body temperature 2022-03-25 00:54:00 37 Natalia [facility] Oxygen saturation in 2022-03-25 00:54:00 97 /min [facility] Arterial blood by [facility] Pulse oximetry [facility] Respiratory rate 2022-03-24 19:44:00 18 /min [facility] Body height 2022-03-24 18:05:00 170.2 cm Universi [facility] Body weight 2022-03-24 18:05:00 84.823 kg Universi [facility] BMI 2022-03-24 18:05:00 29.29 kg/m2 [facility] Systolic blood 2022-03-24 19:44:00 138 mm[Hg] Univer [facility]ity of [facility] Diastolic blood 2022-03-24 19:44:00 67 mm[Hg] Unive rsity [facility] Heart rate 2022-03-24 19:44:00 84 /min [facility] Body temperature 2022-03-24 19:44:00 36.33 Natalia [facility] Respiratory rate 2022-03-24 19:44:00 18 /min [facility] Oxygen saturation in 2022-03-24 19:44:00 97 /min [facility] Arterial blood by [place] [facility] Pulse oximetry [facility] Body height 2022-03-24 18:05:00 170.2 cm [facility] Body weight 2022-03-24 18:05:00 84.823 kg [facility] BMI 2022-03-24 18:05:00 29.29 kg/m2 [facility] Systolic blood 2022-03-23 13:59:00 130 mm[Hg] Univer [facility]ity of [facility] Diastolic blood 2022-03-23 13:59:00 65 mm[Hg] Unive rsity of pressure [facility] Heart rate 2022-03-23 13:59:00 77 /min [facility] Body temperature 2022-03-23 13:59:00 35.39 Natalia [facility] Respiratory rate 2022-03-23 13:59:00 16 /min [facility] Body height 2022-03-23 13:59:00 170.2 cm [facility] Body weight 2022-03-23 13:59:00 85 kg [facility] BMI 2022-03-23 13:59:00 29.35 kg/m2 [facility] Oxygen saturation in 2022-03-23 13:59:00 99 /min [facility] Arterial blood by [employer] [facility] Pulse oximetry Branch height 2022-03-08 14:40:00 65.5 [in_i] Common [facility] weight 2022-03-08 14:40:00 195.8 [lb_av] Common [facility] temperature 2022-03-08 14:40:00 97.8 [degF] [facility] bmi 2022-03-08 14:40:00 32.08 kg/m2 [facility] oximetry 2022-03-08 14:40:00 98 % [facility] respiratory rate 2022-03-08 14:40:00 16 /min Comm on [facility] blood pressure 2022-03-08 14:40:00 126 mm[Hg] [facility] - systolic [facility] blood pressure 2022-03-08 14:40:00 74 mm[Hg] Common [facility] - diastolic [facility] Body height 2022-02-21 19:05:00 170.2 cm [facility] Body weight 2022-02-21 19:05:00 86.183 kg [facility] BMI 2022-02-21 19:05:00 29.76 kg/m2 [facility] height 2021-12-07 14:40:00 65.5 [in_i] Common [facility] weight 2021-12-07 14:40:00 188.4 [lb_av] [facility] temperature 2021-12-07 14:40:00 97.5 [degF] Common [facility] bmi 2021-12-07 14:40:00 30.87 kg/m2 [facility] oximetry 2021-12-07 14:40:00 100 % [facility] respiratory rate 2021-12-07 14:40:00 16 /min Comm on [facility] blood pressure 2021-12-07 14:40:00 134 mm[Hg] [facility] - systolic [facility] blood pressure 2021-12-07 14:40:00 76 mm[Hg] [facility] - diastolic [facility] height 2021-11-08 11:20:00 65.5 [in_i] Common [facility] weight 2021-11-08 11:20:00 191.8 [lb_av] Common [facility] temperature 2021-11-08 11:20:00 98.1 [degF] [facility] bmi 2021-11-08 11:20:00 31.43 kg/m2 [facility] oximetry 2021-11-08 11:20:00 98 % [facility] respiratory rate 2021-11-08 11:20:00 16 /min Comm on [facility] height 2021-11-03 14:00:00 65.5 [in_i] [facility] weight 2021-11-03 14:00:00 193 [lb_av] [facility] bmi 2021-11-03 14:00:00 31.62 kg/m2 [facility] height 2021-10-20 11:00:00 65.5 [in_i] [facility] weight 2021-10-20 11:00:00 193 [lb_av] [facility] temperature 2021-10-20 11:00:00 97.4 [degF] [facility] bmi 2021-10-20 11:00:00 31.62 kg/m2 [facility] blood pressure 2021-10-20 11:00:00 132 mm[Hg] [facility] - systolic [facility] blood pressure 2021-10-20 11:00:00 74 mm[Hg] [facility] - diastolic [facility] height 2021-08-31 08:30:00 65.5 [in_i] [facility] weight 2021-08-31 08:30:00 190 [lb_av] [facility] temperature 2021-08-31 08:30:00 97.3 [degF] Common [facility] - [facility] bmi 2021-08-31 08:30:00 31.13 kg/m2 [facility] - [facility] blood pressure 2021-08-31 08:30:00 118 mm[Hg] [facility] - systolic [facility] blood pressure 2021-08-31 08:30:00 68 mm[Hg] [facility] - diastolic [facility] height 2021-08-23 13:00:00 65.5 [in_i] [facility] weight 2021-08-23 13:00:00 203.8 [lb_av] [facility] temperature 2021-08-23 13:00:00 97.7 [degF] Common S [facility] 2021-08-23 13:00:00 33.39 kg/m2 [facility] oximetry 2021-08-23 13:00:00 99 % [facility] respiratory rate 2021-08-23 13:00:00 16 /min Comm on [facility] blood pressure 2021-08-23 13:00:00 132 mm[Hg] [facility] - systolic [facility] blood pressure 2021-08-23 13:00:00 68 mm[Hg] [facility] - diastolic [facility] height 2021-07-06 15:00:00 65.5 [in_i] Common [facility] weight 2021-07-06 15:00:00 204.4 [lb_av] Common [facility] temperature 2021-07-06 15:00:00 97.5 [degF] Common [facility] bmi 2021-07-06 15:00:00 33.49 kg/m2 [facility] oximetry 2021-07-06 15:00:00 97 % [facility] respiratory rate 2021-07-06 15:00:00 16 /min Comm on [facility] blood pressure 2021-07-06 15:00:00 138 mm[Hg] [facility] - systolic [facility] blood pressure 2021-07-06 15:00:00 80 mm[Hg] [facility] - diastolic [facility] height 2021-06-22 10:20:00 65.5 [in_i] Common S [facility] weight 2021-06-22 10:20:00 167.6 [lb_av] Common [facility] - [facility] temperature 2021-06-22 10:20:00 97.4 [degF] Common S [facility] bmi 2021-06-22 10:20:00 27.46 kg/m2 Common S [facility] oximetry 2021-06-22 10:20:00 98 % [facility] respiratory rate 2021-06-22 10:20:00 16 /min Comm on [facility] blood pressure 2021-06-22 10:20:00 136 mm[Hg] [facility] - systolic [facility] blood pressure 2021-06-22 10:20:00 80 mm[Hg] [facility] - diastolic [facility] height 2021-06-02 15:20:00 65.5 [in_i] Common S [facility] weight 2021-06-02 15:20:00 207.7 [lb_av] [facility] temperature 2021-06-02 15:20:00 98.7 [degF] Common S [facility]irit [facility] bmi 2021-06-02 15:20:00 34.03 kg/m2 Common S [facility] oximetry 2021-06-02 15:20:00 97 % [facility] 2021-06-02 15:20:00 18 /min Comm on [facility] blood pressure 2021-06-02 15:20:00 134 mm[Hg] [facility] - systolic [facility] blood pressure 2021-06-02 15:20:00 72 mm[Hg] [facility] - diastolic [facility] height 2021-05-18 15:00:00 65.5 [in_i] [facility] weight 2021-05-18 15:00:00 212 [lb_av] [facility] temperature 2021-05-18 15:00:00 97 [degF] [facility] bmi 2021-05-18 15:00:00 34.74 kg/m2 [facility] oximetry 2021-05-18 15:00:00 98 % [facility] respiratory rate 2021-05-18 15:00:00 20 /min [facility] blood pressure 2021-05-18 15:00:00 130 mm[Hg] [facility] - systolic [facility] blood pressure 2021-05-18 15:00:00 82 mm[Hg] [facility] - diastolic [facility] Procedures Procedure Date / Time Performing Source Performed Clinician CUBITAL TUNNEL RELEASE 2023-06-18 Nichole Lau [facility] ity of 13:23:00 [facility] HB ABO GROUPING 2023-06-18 Nichole Lau [facility] 13:17:00 [facility] HB ABO GROUPING 2023-06-18 Nichole Lau [facility] 13:17:00 [facility] POCT GLUCOSE (AUTOMATED) 2023-06-18 Nichole Lau [facility] rsity of 13:13:00 [facility] POCT GLUCOSE (AUTOMATED) 2023-06-18 [facility] 13:13:00 [facility] DAY SURGERY - ADC 2023-06-18 [facility] 06:01:00 Unassigned, No [facility] EXTERNAL PROVIDER RECORDS 2023-06-01 [facility] 05:01:00 Unassigned, No [facility] EXTERNAL PROVIDER RECORDS 2023-06-01 Doctor Gilmar sity of 05:01:00 Unassigned, No [facility] REFERRAL- REQUEST/RESPONSE 2023-05-30 Doctor Mejia rsity of 05:01:00 Unassigned, No [facility] REFERRAL- REQUEST/RESPONSE 2023-05-30 Doctor Martineze rsity of 05:01:00 Unassigned, No [facility] DSU PRE-OP 2023-05-23 Doctor Ellerbe of 05:01:00 Unassigned, No [facility] DSU PRE-OP 2023-05-23 Doctor Ellerbe of 05:01:00 Unassigned, No [facility] XR CHEST 2 VW 2023-05-01 Kusum Pacheco [facility] of 14:39:47 [facility] DSU PRE-OP 2023-04-26 Doctor Ellerbe of 05:01:00 Unassigned, No [facility] CT SHOULDER RIGHT WO CONTRAST 2023-03-01 Kusum Pacheco Un iversity of 20:10:00 [facility] XR SHOULDER <2 VW RIGHT 2023-02-23 Kusum Pacheco Universi ty of 14:58:26 [facility] CONSENT/REFUSAL FOR DIAGNOSIS AND 2023-02-23 Doctor Ellerbe of [facility] 14:02:02 Unassigned, No [facility] REFERRAL- REQUEST/RESPONSE 2022-12-25 Doctor Unive rsity of 05:01:00 Unassigned, No [facility] REFERRAL- REQUEST/RESPONSE 2022-09-05 Doctor Unive rsity of [...] Doctor Universit y of 18:40:50 Unassigned, No [facility] REFERRAL- REQUEST/RESPONSE 2022-05-10 Doctor [facility] rsity of 05:01:00 Unassigned, No [facility] DNR 2022-04-04 Doctor University of 05:01:00 Unassigned, No [facility] POCT GLUCOSE (AUTOMATED) 2022-03-24 [facility] of 21:06:00 [facility] POCT GLUCOSE (AUTOMATED) 2022-03-24 Prakash Waller [facility] rsity of 21:06:00 [facility] COLONOSCOPY (ENDO) 2022-03-24 Prakash Waller [facility] of 18:38:21 [facility] COLONOSCOPY (ENDO) 2022-03-24 Prakash Waller [facility] of 18:38:21 [facility] COLONOSCOPY 2022-03-24 Earnest Nunez [facility] of 18:31:00 [facility] POCT GLUCOSE (AUTOMATED) 2022-03-24 Prakash Waller [facility] rsity of 13:30:00 [facility] POCT GLUCOSE (AUTOMATED) 2022-03-24 Prakash Waller [facility] rsity of 13:30:00 [facility] POCT GLUCOSE (AUTOMATED) 2022-03-24 Prakash Waller [facility] rsity of 13:30:00 [facility] CBC WITHOUT DIFF 2022-03-24 [place] [facility] of 10:55:00 [facility] CBC WITHOUT DIFF 2022-03-24 [place] [facility] of 10:55:00 [facility] CBC WITHOUT DIFF 2022-03-24 [place], [facility] of 10:55:00 [facility] MAGNESIUM 2022-03-24 R[facility] of 09:28:00 [facility] BASIC METABOLIC PANEL (NA, K, CL, 2022-03-24 [place] [facility] of CO2, GLUCOSE, BUN, CREATININE, CA) 09:28:00 [facility] MAGNESIUM 2022-03-24 [facility] of 09:28:00 [facility] BASIC METABOLIC PANEL (NA, K, CL, 2022-03-24 [place], [facility] of CO2, GLUCOSE, BUN, CREATININE, CA) 09:28:00 [facility] MAGNESIUM 2022-03-24 [facility] of 09:28:00 [facility] BASIC METABOLIC PANEL (NA, K, CL, 2022-03-24 [facility] of CO2, GLUCOSE, BUN, CREATININE, CA) 09:28:00 [facility] POCT GLUCOSE (AUTOMATED) 2022-03-24 Prakash Waller rsity of 04:04:00 [facility] POCT GLUCOSE (AUTOMATED) 2022-03-24 Prakash Waller rsity of 04:04:00 [facility] POCT GLUCOSE (AUTOMATED) 2022-03-24 Prakash Waller rsity of 04:04:00 [facility] POCT GLUCOSE (AUTOMATED) 2022-03-24 [facility]rakash Waller [facility] of 01:54:00 [facility] POCT GLUCOSE (AUTOMATED) 2022-03-24 Prakash Waller rsity of 01:54:00 [facility] POCT GLUCOSE (AUTOMATED) 2022-03-24 Prakash Waller [facility] of 01:54:00 [facility] POCT GLUCOSE (AUTOMATED) 2022-03-23 Prakash Waller [facility] of 22:06:00 [facility] POCT GLUCOSE (AUTOMATED) 2022-03-23 Prakash Waller [facility] of 22:06:00 [facility] POCT GLUCOSE (AUTOMATED) 2022-03-23 Prakash Waller [facility] of 22:06:00 [facility] SURGICAL PATHOLOGY EXAM 2022-03-23 Gou, Earnest Martinezer sity of 14:36:00 [facility] SURGICAL PATHOLOGY EXAM 2022-03-23 Gou, Earnest Henning Univer sity of 14:36:00 [facility] SURGICAL PATHOLOGY EXAM 2022-03-23 Gou, Earnest Martinezer sity of 14:36:00 [facility] ESOPHAGOGASTRODUODENOSCOPY 2022-03-23 Gou, Earnest Henning Uni versity of 14:09:00 [facility] ESOPHAGOGASTRODUODENOSCOPY 2022-03-23 Gou, Earnest Henning Uni versity of 14:09:00 [facility] EGD (ENDO) 2022-03-23 Prakash Waller of 13:02:56 [facility] EGD (ENDO) 2022-03-23 Christin, Prakash [facility] of 13:02:56 [facility] EGD (ENDO) 2022-03-23 Christin, Prakash [facility] of 13:02:56 [facility] POCT GLUCOSE (AUTOMATED) 2022-03-23 Prakash Waller [facility] rsity of 12:56:00 [facility] POCT GLUCOSE (AUTOMATED) 2022-03-23 Prakash Waller [facility] rsity of 12:56:00 [facility] POCT GLUCOSE (AUTOMATED) 2022-03-23 Prakash Waller [facility] rsity of 12:56:00 [facility] FERRITIN SERUM 2022-03-23 Jackson Spear Ellerbe of 10:21:00 [facility] BASIC METABOLIC PANEL (NA, K, CL, 2022-03-23 [facility] CO2, GLUCOSE, BUN, CREATININE, CA) 10:21:00 [facility] CBC WITH DIFF 2022-03-23 [facility] of 10:21:00 [facility] ACTIVATED PARTIAL THRMPLAS CASSIE 2022-03-23 [facility] U niversity of 10:21:00 [facility] FIBRINOGEN 2022-03-23 [facility] of 10:21:00 [facility] FERRITIN SERUM 2022-03-23 Jackson Spear Ellerbe of 10:21:00 [facility] BASIC METABOLIC PANEL (NA, K, CL, 2022-03-23 [facility] CO2, GLUCOSE, BUN, CREATININE, CA) 10:21:00 [facility] CBC WITH DIFF 2022-03-23 [facility] of 10:21:00 [facility] ACTIVATED PARTIAL THRMPLAS CASSIE 2022-03-23 Dragan, Courtney U niversity of 10:21:00 [facility] FIBRINOGEN 2022-03-23 [facility] of 10:21:00 [facility] FERRITIN SERUM 2022-03-23 [facility] of 10:21:00 [facility] BASIC METABOLIC PANEL (NA, K, CL, 2022-03-23 [facility] CO2, GLUCOSE, BUN, CREATININE, CA) 10:21:00 [facility] CBC WITH DIFF 2022-03-23 [facility] of 10:21:00 [facility] ACTIVATED PARTIAL THRMPLAS CASSIE 2022-03-23 [facility] niversity of 10:21:00 [facility] FIBRINOGEN 2022-03-23 [facility] of 10:21:00 [facility] POCT GLUCOSE (AUTOMATED) 2022-03-23 Prakash Wallerung Unive rsity of 02:06:00 [facility] POCT GLUCOSE (AUTOMATED) 2022-03-23 Prakash Waller [employer] Unive rsity of 02:06:00 [facility] POCT GLUCOSE (AUTOMATED) 2022-03-23 Prakash Waller [employer] [facility]ive rsity of 02:06:00 [facility] POCT GLUCOSE (AUTOMATED) 2022-03-23 Prakash Waller [employer] [facility]ive rsity of 01:28:00 [facility] POCT GLUCOSE (AUTOMATED) 2022-03-23 Prkaash Waller [employer] Unive rsity of 01:28:00 [facility] POCT GLUCOSE (AUTOMATED) 2022-03-23 Prakash Waller [employer] [facility]ive rsity of 01:28:00 [facility] POCT GLUCOSE (AUTOMATED) 2022-03-22 Prakash Waller [employer] [facility]ive rsity of 22:06:00 [facility] POCT GLUCOSE (AUTOMATED) 2022-03-22 Prakash Waller [employer] [facility]ive rsity of 22:06:00 [facility] POCT GLUCOSE (AUTOMATED) 2022-03-22 Prakash Wallerung Unive rsity of 22:06:00 [facility] HB ABO GROUPING 2022-03-22 [facility] of 20:28:00 [facility] HB ABO GROUPING 2022-03-22 [facility] of 20:28:00 [facility] HB ABO GROUPING 2022-03-22 [facility] of 20:28:00 [facility] VITAMIN B12, LEVEL 2022-03-22 Jovanna, [facility] of 17:58:00 [facility] FOLATE 2022-03-22 [place], [facility] of 17:58:00 [facility] HEPATIC FUNCTION PANEL ([id number]) 2022-03-22 Shabbir Nugent niversity of (ALB,T.PRO,BILI 17:58:00 [place] [facility] T,BU/BC,ALT,AST,ALK PHOS) Branch BASIC METABOLIC PANEL (NA, K, CL, 2022-03-22 [facility] CO2, GLUCOSE, BUN, CREATININE, CA) 17:58:00 [facility] CBC WITH DIFF 2022-03-22 Jovanna, [facility] of 17:58:00 [facility] VITAMIN B12, LEVEL 2022-03-22 [facility] 17:58:00 [facility] FOLATE 2022-03-22 Jovanna [facility] of 17:58:00 [facility] HEPATIC FUNCTION PANEL ([id number]) 2022-03-22 Shabbir Nugent niversity of (ALB,T.PRO,BILI 17:58:00 [place] [facility] T,BU/BC,ALT,AST,ALK PHOS) Branch BASIC METABOLIC PANEL (NA, K, CL, 2022-03-22 Jovanna [facility] of CO2, GLUCOSE, BUN, CREATININE, CA) 17:58:00 [facility] CBC WITH DIFF 2022-03-22 Jovanna [facility] of 17:58:00 [facility] VITAMIN B12, LEVEL 2022-03-22 Jovanna, [facility] of 17:58:00 [facility] FOLATE 2022-03-22 [facility] of 17:58:00 [facility] HEPATIC FUNCTION PANEL ([id number]) 2022-03-22 Shabbir Nugent niversity of (ALB,T.PRO,BILI 17:58:00 [place] [facility] T,BU/BC,ALT,AST,ALK PHOS) Branch BASIC METABOLIC PANEL (NA, K, CL, 2022-03-22 Jovanna [facility] of CO2, GLUCOSE, BUN, CREATININE, CA) 17:58:00 [facility] CBC WITH DIFF 2022-03-22 Jovanna, [facility] of 17:58:00 [facility] HOSPITAL ADMISSION 2022-03-22 [facility] of 05:01:00 Unassigned, No [facility] HOSPITAL ADMISSION 2022-03-22 [facility] of 05:01:00 Unassigned, No [facility] HOSPITAL ADMISSION 2022-03-22 [facility] of 05:01:00 Unassigned, No [facility] [id number] 2021-10-17 [facility] 00:00:00 Healthcare [facility] Encounters Start End Encounter Admission Attending Care Care Encounter Source Date/Time Date/Time Type Type Clinicians Facility Department ID 2023-05-30 Outpatient [place], STLMLC STLMLC [id number] Common 16:26:00 Skylar 64564 [facility] 2023-04-30 Outpatient X NICHOLE LAU [facility] SOR 10 [id number] Univers 11:36:44 NICHOLE LAU [facility] 2023-01-31 Outpatient [place], STLMLC STLMLC [id number] Common 14:11:00 Skylar 86858 [facility] 2022-11-01 Outpatient [place], STLMLC STLMLC [id number] Common 12:45:00 Skylar 22259 [facility] 2022-10-31 Outpatient [place], STLMLC STLMLC [id number] Common 12:06:00 Skylar 19312 [facility] 2022-02-16 Outpatient [place], STLMLC STLMLC [id number] Common 13:42:01 Skylar [facility] 2022-02-07 Outpatient [place], STLMLC STLMLC [id number] Common 08:29:00 Skylar [facility] 2021-12-27 Outpatient R MINH [facility] NING [id number] Univers 09:49:04 MEHRDAD [facility] 2021-12-08 Outpatient [place], STLMLC STLMLC [id number] Common 16:43:00 Skylar [facility] 2021-12-05 Outpatient [place], STLMLC STLMLC [id number] Common 14:56:01 Skylar [facility] 2021-11-04 Outpatient [place], STLMLC STLMLC [id number] Common 10:22:00 Skylar [facility] 2021-10-26 Outpatient [place], STLMLC STLMLC [id number] Common 16:48:01 Skylar [facility] 2021-10-21 Outpatient [place], STLMLC STLMLC [id number] Common 13:18:01 Skylar [facility] 2021-10-18 Outpatient [place], STLMLC STLMLC [id number] Common 13:27:02 Skylar [facility] 2021-08-31 Outpatient [place], STLMLC STLMLC [id number] Common 14:40:32 Skylar [facility] 2021-08-31 Outpatient [place], STLMLC STLMLC [id number] Common 14:27:35 Skylar [facility] 2021-08-31 Outpatient [place], STLMLC STLMLC [id number] Common 14:13:22 Skylar [facility] 2021-08-31 Outpatient [place], STLMLC STLMLC [id number] Common 14:05:40 Skylar [facility] 2021-08-31 Outpatient [place], STLMLC STLMLC [id number] Common 14:01:51 Ruth 79069 [facility] 2021-08-31 Outpatient [place], STLMLC STLMLC [id number] Common 14:00:44 Ruth 06600 [facility] 2021-08-31 Outpatient [place], STLMLC STLMLC [id number] Common 13:48:34 Ruth 49636 [facility] 2021-08-31 Outpatient [place], STLMLC STLMLC [id number] Common 13:28:14 Ruth 89506 [facility] 2021-08-31 Outpatient [place], STLMLC STLMLC [id number] Common 12:43:59 Ruth 99643 [facility] 2021-08-31 Outpatient [place], STLMLC STLMLC [id number] Common 12:43:30 Ruth 45581 [facility] 2021-08-31 Outpatient [place], STLMLC STLMLC [id number] Common 12:40:36 Ruth 69342 [facility] 2021-08-31 Outpatient [place], STLMLC STLMLC [id number] Common 11:45:41 Ruth 98628 [facility] 2021-08-31 Outpatient [place], STLMLC STLMLC [id number] Common 11:36:44 Ruth 29031 [facility] 2021-08-31 Outpatient [place], STLMLC STLMLC [id number] Common 11:33:43 Ruth 84282 [facility] 2021-08-31 Outpatient [place], STLMLC STLMLC [id number] Common 11:29:50 Ruth 13028 [facility] 2021-08-31 Outpatient [place], STLMLC STLMLC [id number] Common 11:25:13 Ruth 61933 [facility] 2021-08-31 Outpatient [place], STLMLC STLMLC [id number] Common 11:19:14 Ruth 74940 [facility] 2021-08-31 Outpatient [place], STLMLC STLMLC [id number] Common 11:12:16 Ruth 58607 [facility] 2021-08-31 Outpatient [place], STLMLC STLMLC [id number] Common 11:09:26 Sheryl 77231 [facility] 2021-08-31 Outpatient [place], STLMLC STLMLC [id number] Common 11:07:41 Ruth 42473 [facility] 2021-08-31 Outpatient [place], STLMLC STLMLC [id number] Common 11:07:07 Ruth 65186 [facility] 2021-08-31 Outpatient [place], STLMLC STLMLC [id number] Common 10:58:45 Ruth 01263 [facility] 2021-06-07 Emergency [facility] [id number] Univers 03:36:58 ity of [facility] 2021-06-07 Outpatient R CHARAFEDDIN [facility] NING [id number] Univers 00:03:36 E, MEHRDAD [facility] 2021-06-06 Emergency [facility] [id number] Univers 01:28:49 ity of [facility] 2021-06-04 Emergency [facility] [id number] Univers 13:53:54 ity of [facility] 2021-06-04 [facility] [id number] Univers 00:26:15 E, MEHRDAD itkatrina [facility] 2023-07-04 2023-07-04 Outpatient R LAUNICHOLE [facility] [id number] Univers 15:00:00 15:00:00 NICHOLE LAU [facility] 2023-07-02 2023-07-02 Outpatient R TARA [facility] [id number] Univers 15:00:00 15:00:00 KUSUM [facility] 2023-06-18 2023-06-18 Outpatient R SIDLISSETHIG [facility] SOR [id number] Univers 06:56:00 10:35:00 NICHOLE LAU [facility] 2023-06-18 2023-06-18 [facility] 1.2.840.114 [id number] Univers 06:56:00 10:35:00 Encounter Nichole [address] 350.1.13.10 ity of [place] [id number] [facility] [address] 2023-06-18 2023-06-18 Surgery [facility] [id number] Univers 08:00:00 09:37:[address] 350.1.13.10 i ty [place] [id number] [facility] [address] 2023-06-18 2023-06-18 Orders Doctor BARONE 1.2.840.114 [id number] Univers 00:00:00 00:00:00 Only Unassigned, BAR 350.1.13.10 ity of [place] [facility] 4.2.7.2.686 Solomon as [id number] [address] 2023-06-14 2023-06-14 Doorperson Or Luggage Porter Salo Salomon Lab Main [facility] 1.2.8 40.114 [id number] Univers 15:00:00 15:15:00 Visit Nichole Lau [place] 350.1.13.10 ity [facility] 4.2.[place].2.[place] PROF[place] [id number] Me dical NAL 353 [facility] 2023-06-14 2023-06-14 Outpatient R LAULISSETHIG [facility] [id number] Univers 15:00:00 15:00:00 NICHOLE LAU [facility] 2023-05-24 2023-05-24 Prep For Sid [facility] 1.2.840.114 [id number] Univers 00:00:00 00:00:00 Surgery Nichole Neely [facility] 350.1.13.10 it y [facility] 4.2.7.2.686 Solomon as SANDY?BLEA [id number] In dical KENNEY 198 [facility] OFFICE [facility] 2023-05-23 2023-05-23 Outpatient R TARA [facility] [id number] Univers 14:15:00 15:06:19 KUSUM [facility] 2023-05-23 2023-05-23 Office [facility] 1.2.840.114 [id number] Univers 14:15:00 14:30:00 Visit Kusum Copeland [facility] 350.1.13.10 it y [facility] 4.2.7.2.686 Solomon as SANDY?BLEA [id number] In dical KNEY 198 [facility] OFFICE [facility] 2023-05-21 2023-05-21 Outpatient R TARA [facility] [id number] Univers 16:00:00 16:00:00 KUSUM [facility] 2023-05-21 2023-05-21 Telephone [facility] 1.2.840.114 [id number] Univers 00:00:00 00:00:00 Nichole Neely HEALTH 350.1.13.10 it y of [place] 4.2.7.2.686 Solomon as SANDY?BLEA [id number] In dical KNEY 198 [facility] OFFICE [facility] 2023-05-01 2023-05-01 Outpatient R TARA [facility] [id number] Univers 09:05:05 23:59:00 KUSUM ity of [facility] 2023-05-01 2023-05-01 [facility] 1.2.840.114 [id number] Univers 09:05:05 23:59:00 Encounter Kusum Copeland [place] 350.1.13.10 it[place] 4.2.7.2.686 [place] C[place]US [id number] [facility] [address] 2023-05-01 2023-05-01 Doorperson Or Luggage Porter Aime, Adc Lab Main [facility] 1.2.8 40.114 [id number] Univers 09:15:00 09:30:00 Visit Kusum PachecoTON 350.1.13.10 it[place] of [place] 4.2.[place].2.[place] [id number] In dical SHAKIRA 353 [facility] 2023-05-01 2023-05-01 [facility] 1.2.840.114 [id number] Univers 09:04:08 09:04:08 Encounter Kusum Copeland [place] 350.1.13.10 [place] 4.2.7.2.[place] [id number] [facility] [address] 2023-04-27 2023-04-27 Prep [facility] 1.2.840.114 [id number] Univers 00:00:00 00:00:00 Surgery Kusum Copeland HEALTH 350.1.13.10 it y of [place] 4.2.7.2.686 Solomon as SANDY?BLEA [id number] In dical KNEY 198 [facility] OFFICE [facility] 2023-04-26 2023-04-26 Outpatient R TARA [facility] [id number] Univers 09:00:00 10:04:32 KUSUM ity of [facility] 2023-04-26 2023-04-26 Office [facility] 1.2.840.114 [id number] Univers 09:00:00 09:15:00 Visit Kusum Copeland HEALTH 350.1.13.10 it y of [place] 4.2.7.2.686 Solomon as SANDY?BLEA [id number] In shabbir FUNEZ 198 [facility] OFFICE [facility] 2023-04-26 2023-04-26 Telephone FLASH Pacheco 1.2.189.985 [id number] Univers 00:00:00 00:00:00 [facility] 350.1.13.10 it y of [place] 4.2.7.2.686 Solomon as SANDY?BLEA [id number] In shabbir HAWK 198 [facility] 2023-04-26 2023-04-26 Orders Doctor ABISAI 1.2.840.114 [id number] Univers 00:00:00 00:00:00 Only Unassigned, BAR 350.1.13.10 ity of [place] [facility] 4.2.7.2.686 Solomon as [id number] [address] 2023-04-24 2023-04-24 Outpatient VERNELL ELIECER [facility] [id number] [place] 08:00:00 08:00:00 MALDONADO -[id number] [facility] 2023-04-18 2023-04-18 Outpatient GC_GCBZW_Ka PRIV PRIV [id number] [facility] 00:00:00 00:00:00 diyala_S [id number] Medic al 2023-04-18 2023-04-18 Outpatient GC_GCBZW_Ka PRIV PRIV [id number] [facility] 00:00:00 00:00:00 diyala_S [id number] Medic al 2023-04-10 2023-04-10 Outpatient VERNELL LINTONELIECER, [facility] [id number] [place] 08:11:00 08:11:00 MALDONADO -[id number] [facility] 2023-04-06 2023-04-06 Outpatient THELMAIE THELMAIE [id number] [facility] 08:15:00 08:15:00 35 dmitry Donato 2023-04-06 2023-04-06 Outpatient IE THELMAIE [id number] Mem[facility] 08:15:00 08:15:00 35 dmitry Donato 2023-04-06 2023-04-06 Telephone Tara WAMARIO 1.2.614.646 [id number] Univers 00:00:00 00:00:00 [facility] 350.1.13.10 it y of [place] 4.2.7.2.686 Solomon as SANDY?BLEA [id number] [address] MEDICAL OFFICE [facility] 2023-04-04 2023-04-04 Outpatient GC_GCBZW_Ka PRIV PRIV [id number] [facility] 00:00:00 00:00:00 diyala_S [id number] Medic al 2023-04-04 2023-04-04 Outpatient GC_GCBZW_Ka PRIV PRIV [id number] [facility] 00:00:00 00:00:00 diyala_S [id number] Medic al 2023-04-04 2023-04-04 Outpatient GC_GCBZW_Ka PRIV PRIV [id number] [facility] 00:00:00 00:00:00 diyala_S [id number] Medic al 2023-04-04 2023-04-04 Outpatient GC_GCBZW_Ka PRIV PRIV [id number] [facility] 00:00:00 00:00:00 diyala_S [id number] Medic al 2023-03-28 2023-03-28 [facility] [id number] Univers 00:00:00 00:00:00 [facility] 2023-03-27 2023-03-27 Outpatient VERNELL ELIECER, [facility] [id number] [place] 09:18:00 09:18:00 MALDONADO -[id number] [facility] 2023-03-26 2023-03-26 Outpatient GC_GCBZW_Ka PRIV PRIV [id number] [facility] 00:00:00 00:00:00 diyala_S [id number] Medic al 2023-03-14 2023-03-14 Outpatient Reena PACHECO [facility] [id number] Univers 09:00:00 10:37:34 [facility] 2023-03-14 2023-03-14 [facility] 1.2.840.114 [id number] Univers 09:00:00 09:15:00 Visit [facility] 350.1.13.10 it y of [place] 4.2.7.2.686 Solomon as SANDY?BLEA [id number] In shabbir FUNEZ 198 [facility] OFFICE [facility] 2023-03-08 2023-03-08 Telephone [facility] 1.2.633.416 [id number] Univers 00:00:00 00:00:00 Kusum S HEALTH 350.1.13.10 it [facility] 4.2.7.2.686 Solomon as SANDY?BLEA [id number] In shabbir FUNEZ 198 [facility] OFFICE [facility] 2023-03-01 2023-03-01 [facility] [id number] Univers 14:32:21 23:59:00 KUSUM ity of [facility] 2023-03-01 2023-03-01 [facility] [id number] [id number] Univers 14:32:21 23:59:00 Encounter [place] 350.1.13.10 ity of [place].2.[place] [id number] [address] 2023-02-23 2023-02-23 [facility] [id number] Univers 09:47:14 23:59:00 KUSUM ity of [facility] 2023-02-23 2023-02-23 [facility] 1.2.840.114 [id number] Univers 09:47:14 23:59:00 Encounter [facility] S HEALTH 350.1.13.10 ity of [place] 4.2.7.2.686 Solomon as SANDY?BLEA [phone] In shabbir FUNEZ 809 [facility] OFFICE [facility] 2023-02-23 2023-02-23 Office [facility] 1.2.840.114 [id number] Univers 09:15:00 10:23:38 Visit [facility] S HEALTH 350.1.13.10 [facility] 4.2.7.2.686 Solomon as SANDY?BLEA [id number] In shabbir FUNEZ 198 [facility] OFFICE [facility] 2023-02-23 2023-02-23 Orders Doctor BARONE 1.2.840.114 [id number] Univers 00:00:00 00:00:00 Only Unassigned, BAR 350.1.13.10 ity of [place] 4.2.7.2.686 Solomon as [phone] [id number] [address] 2023-01-25 2023-01-25 Outpatient MHIE MHIE [id number] Memoria 14:45:00 14:45:00 34 [facility] 2023-01-25 2023-01-25 Outpatient MHIE MHIE [id number] Memoria 14:45:00 14:45:00 34 l [place] 2023-01-10 2023-01-10 Outpatient MHIE MHIE [id number] Memoria 14:45:00 14:45:00 33 [facility] 2023-01-10 2023-01-10 Outpatient MHIE MHIE [id number] Memoria 14:45:00 14:45:00 33 [facility] 2022-12-25 2022-12-25 Orders Doctor BARONE 1.2.840.114 [id number] Univers 00:00:00 00:00:00 Only Unassigned, BAR 350.1.13.10 ity of [place] [facility] 4.2.7.2.686 Solomon as [phone] [address] 2022-12-14 2022-12-14 (TEL) STLMLC STLMLC [id number] Co mmon 00:00:00 00:00:00 [facility] 2022-11-08 2022-11-08 Outpatient MHIE MHIE [id number] Memoria 15:15:00 15:15:00 32 l [place] 2022-11-08 2022-11-08 Outpatient MHIE MHIE [id number] Memoria 15:15:00 15:15:00 32 l [place] 2022-11-01 2022-11-01 OFFICE STLMLC STLMLC [id number] Co mmon 00:00:00 00:00:00 VISIT Spirit ESTAB PT - CHI LEVEL 4 [facility] 2022-11-01 2022-11-01 SUB ANNUAL STLMLC STLMLC [id number] Common 00:00:00 00:00:00 MCR Spirit WELLNESS - [facility] 2022-10-05 2022-10-05 Outpatient MHIE IE [id number] Memoria 13:30:00 13:30:00 31 dmitry Donato 2022-10-05 2022-10-05 Outpatient MHIE IE [id number] Memoria 13:30:00 13:30:00 31 dmitry Donato 2022-09-29 2022-09-29 Office [facility] 1.2.840.114 [id number] Univers 10:45:00 11:00:00 Visit [facility] 350.1.13.10 it y of [place] 4.2.7.2.686 Solomon as SANDY?BLEA [phone] In shabbir [address] OFFICE [facility] 2022-09-29 2022-09-29 Outpatient [facility] [id number] Univers 10:45:00 10:45:00 [facility] 2022-09-19 2022-09-19 Telephone [facility] 1.2.541.957 [id number] Univers 00:00:00 00:00:00 [facility] 350.1.13.10 it [facility] 4.2.7.2.686 Solomon as SANDY?BLEA [phone] [address] 2022-09-12 2022-09-12 Telephone [facility] 1.2.975.733 [id number] Univers 00:00:00 00:00:00 [facility] 350.1.13.10 it y of [place] 4.2.7.2.686 Solomon as SANDY?BLEA [phone] In shabbir [address] OFFICE [facility] 2022-09-05 2022-09-05 Orders Doctor ABISAI 1.2.840.114 [id number] Univers 00:00:00 00:00:00 Only Unassigned, BAR 350.1.13.10 ity of [place] [facility] 4.2.7.2.686 Solomon as [phone] [address] 2022-08-24 2022-08-24 Outpatient [facility] [id number] Univers 11:15:00 11:41:29 [facility] 2022-08-24 2022-08-24 Office [facility] 1.2.840.114 [id number] Univers 11:15:00 11:30:00 Visit Kusum S HEALTH 350.1.13.10 it y of [place] 4.2.7.2.686 Solomon as SANDY?BLEA [phone] In shabbir FUNEZ 198 [facility] 2022-08-21 2022-08-21 Orders Doctor ABISAI 1.2.840.114 [id number] Univers 00:00:00 00:00:00 Only Unassigned, BAR 350.1.13.10 ity of [place] [facility] 4.2.7.2.686 Solomon as [phone] [address] 2022-08-17 2022-08-17 Out[facility] [id number] Univers 10:45:00 10:45:00 NICHOLE landiskatrina [facility] 2022-08-17 2022-08-17 Telephone [facility] 1.2.840.114 [id number] Univers 00:00:00 00:00:00 Nichole Neely [facility] 350.1.13.10 it y [facility] 4.2.7.2.686 Solomon as SANDY?BLEA [phone] In shabbir FUNEZ [address] [place] [address] 2022-08-14 2022-08-14 Out[facility] [id number] Univers 13:15:00 13:15:00 NICHOLE perez [facility] 2022-08-14 2022-08-14 Doorperson Or Luggage Porter Aime, Salo Lab Main [facility] 1.2.8 40.114 [id number] Univers 08:15:00 08:30:00 Visit Nichole Lau [facility] 350.1.13.10 ity of [place] [phone] In dicdemetra ROSENBERG 353 [facility] 2022-08-14 2022-08-14 Outpatient [facility] [id number] Univers 08:15:00 08:15:00 NICHOLE perez [facility] 2022-08-10 2022-08-10 Outpatient ERICKSON_R [facility] [address] [place] 00:00:00 00:00:00 0105 [facility] 2022-08-10 2022-08-10 Telephone [facility] 1.2.840.114 [id number] Univers 00:00:00 00:00:00 Nichole Neely [facility] 350.1.13.10 it y of [place] 4.2.7.2.686 Solomon as SANDY?BLEA [phone] In shabbir FUNEZ [address] [place] MEDICAL OFFICE [facility] 2022-08-10 2022-08-10 Orders Doctor ABISAI 1.2.840.114 [id number] Univers 00:00:00 00:00:00 Only Unassigned, BAR 350.1.13.10 ity of [place] [facility] 4.2.7.2.686 Solomon as [phone] [address] 2022-08-09 2022-08-09 Out[facility] [id number] Univers 13:00:00 13:31:36 NICHOLE ity of [facility] 2022-08-09 2022-08-09 Office [facility] 1.2.082.264 [id number] Univers 13:00:00 13:31:36 Visit Nichole [facility] 350.1.13.10 it y [facility] 4.2.7.2.686 Solomon as SANDY?BLEA [id number] In shabbir FUNEZ [address] [place] [address] OFFICE [facility] 2022-07-24 2022-07-24 Orders Doctor ABISAI 1.2.840.114 [id number] Univers 00:00:00 00:00:00 Only Unassigned, BAR 350.1.13.10 ity of [place] [facility] 4.2.7.2.686 Solomon as [phone] [address] 2022-07-12 2022-07-12 Telephone [facility] 1.2.355.882 [id number] Univers 00:00:00 00:00:00 [facility] HEALTH 350.1.13.10 it y of [place] 4.2.7.2.686 Solomon as SANDY?BLEA [id number] In dicdemetra [address] OFFICE BUILDING 2022-07-10 2022-07-10 (TEL) [facility] [id number] Co mmon 00:00:00 00:00:00 [facility] 2022-06-23 2022-06-23 Telephone Tara WAMARIO 1.2.923.988 [id number] Univers 00:00:00 00:00:00 Kusum S HEALTH 350.1.13.10 it y [facility] 4.2.7.2.686 Solomon as SANDY?BLEA [phone] In shabbir FUNEZ [address] [place] MEDICAL OFFICE [facility] 2022-06-20 2022-06-20 Telephone [facility] 1.2.840.114 [id number] Univers 00:00:00 00:00:00 Nichole L HEALTH 350.1.13.10 it y of [place] 4.2.7.2.686 Solomon as SANDY?BLEA [phone] In shabbir [address] OFFICE [facility] 2022-06-14 2022-06-14 Orders Doctor ABISAI 1.2.840.114 [id number] Univers 00:00:00 00:00:00 Only Unassigned, BAR 350.1.13.10 ity of [place] [facility] 4.2.7.2.686 Solomon as [phone] [facility] [address] 2022-06-13 2022-06-13 Telephone Tara [facility] 1.2.327.764 [id number] Univers 00:00:00 00:00:00 Kusum S HEALTH 350.1.13.10 it y [facility] 4.2.7.2.686 Solomon as SANDY?BLEA [phone] In shabbir [address] OFFICE [facility] 2022-06-06 2022-06-06 Emergency [facility] 1.2.182.928 [id number] Univers 15:32:00 16:14:00 Katty S [place] 350.1.13.10 i ty of [place] [phone] [facility] [address] [place] 2022-06-06 2022-06-06 Outpatient R TARA [facility] [id number] Univers 13:41:07 15:31:00 KUSUM ity [facility] 2022-06-06 2022-06-06 Outpatient R [facility] ERT [id number] Univers 13:41:07 15:31:00 KUSUM katrina [facility] 2022-06-06 2022-06-06 Hospital [facility] 1.2.840.114 [id number] Univers 13:41:07 15:31:00 Encounter [address] 350.1.13.10 ity of [facility] 4.2.7.2.[place] [id number] [facility] [address] [place] 2022-06-06 2022-06-06 Orders Doctor ABISAI 1.2.840.114 [id number] Univers 00:00:00 00:00:00 Only Unassigned, BAR 350.1.13.10 ity of [place] [facility] 4.2.7.2.686 Solomon as [phone] [facility] [address] [place] 2022-05-24 2022-05-24 Outpatient [facility] [id number] Univers 15:08:06 23:59:00 KUSUM katrina [facility] 2022-05-24 2022-05-24 Office [facility] 1.2.840.114 [id number] Univers 15:00:00 15:49:56 Visit Kusum [place] HEALTH 350.1.13.10 it y of [place] 4.2.7.2.686 Solomon as SANDY?BLEA [phone] [address] MEDICAL OFFICE [facility] 2022-05-11 2022-05-11 Telephone [facility] 1.2.840.114 [id number] Univers 00:00:00 00:00:00 Nichole L HEALTH 350.1.13.10 it y of [place] 4.2.7.2.686 Solomon as SANDY?BLEA [id number] [facility] [address] [place] MEDICAL OFFICE [facility] 2022-05-10 2022-05-10 Orders Doctor ABISAI 1.2.840.114 [id number] Univers 00:00:00 00:00:00 Only Unassigned, BAR 350.1.13.10 ity of [place] [facility] 4.2.7.2.686 Solomon as [phone] [facility] [address] 2022-05-03 2022-05-[address] [facility] [id number] Co mmon 00:00:00 00:00:00 VISIT Spirit ESTAB PT - CHI LEVEL 4 [facility] 2022-04-04 2022-04-04 Orders Doctor ABISAI 1.2.840.114 [id number] Univers 00:00:00 00:00:00 Only Unassigned, BAR 350.1.13.10 ity of [place] [facility] 4.2.7.2.686 Solomon as [phone] [facility] [address] 2022-03-27 2022-03-27 [address] AD[address] Lowery 1.2.840.114 [id number] Univers 00:00:00 00:00:00 of Care Karen PALOMO 350.1.13.10 i ty of [place].2.[place] [phone] [facility] [address] 2022-03-22 2022-03-24 Outpatient PRAKASH WALLER [facility] [id number] Univers 10:30:00 20:18:00 ity of [facility] 2022-03-22 2022-03-24 [facility] Prakash Waller 1.2.840.114 [id number] Univers 10:30:00 20:18:00 Encounter Vi BAR 350.1.13.10 ity of [facility] 4.2.7.2.686 Solomon as [phone] [facility] [address] 2022-03-24 2022-03-24 Surgery [facility] 1.2.840.114 [id number] Univers 14:05:00 15:11:00 [place] ICAL 350.1.13.10 it y of [place] 4.2.7.2.686 Solomon as BLDG [phone] [facility] [address] 2022-03-23 2022-03-23 [facility] 1.2.840.114 [id number] Univers 09:00:00 09:43:00 [place] ICAL 350.1.13.10 it y of [place] 4.2.7.2.686 Solomon as BLDG [id number] [address] 2022-03-08 2022-03-08 (TEL) STLMLC STLMLC [id number] Co mmon 00:00:00 00:00:00 [facility] 2022-03-08 2022-03-08 OFFICE STLMLC STLMLC [id number] Co mmon 00:00:00 00:00:[address] [facility] LEVEL 4 [facility] 2022-02-21 2022-02-21 Outpatient Reena PACHECO [facility] [id number] Univers 14:58:27 23:59:00 [facility] 2022-02-21 2022-02-21 Outpatient Reena PACHECO [facility] [id number] Univers 14:00:00 15:28:39 [facility] 2022-02-21 2022-02-21 Office [facility] 1.2.840.114 [id number] Univers 14:00:00 15:28:39 Visit [facility] 350.1.13.10 [facility] 4.2.7.2.686 Solomon as SANDY?BLEA [phone] [address] MEDICAL OFFICE BUILDING 2022-02-14 2022-02-14 Outpatient VERNELL GONZÁLES [facility] [id number] [place] 10:45:00 10:45:00 MALDONADO -[id number] [facility] 2022-02-09 2022-02-09 Outpatient Reena PACHECO [facility] [id number] Univers 16:00:00 16:00:00 [facility] 2022-01-31 2022-01-31 (TEL) STLMLC STLMLC [id number] Co mmon 00:00:00 00:00:00 [facility] 2022-01-20 2022-01-20 Outpatient Reena BACH [facility] [id number] Univers 18:06:07 23:59:00 ROXY [facility] 2022-01-20 2022-01-20 [facility] 1.2.399.503 [id number] Univers 18:06:07 23:59:00 Encounter Roxy [facility] 350.1.13.10 ity of [place] 4.2.7.2.686 Solomon as SANDY?BLEA [phone] [facility] [address] MEDICAL OFFICE BUILDING 2022-01-20 2022-01-20 Urgent Roxy Bach [facility] 1.2.840.114 [id number] Univers 18:00:00 18:15:46 Care Leon Houston [facility] 350.1.13.10 ity of [place] 4.2.7.2.686 Solomon as SANDY?BLEA [id number] [facility] [address] MEDICAL OFFICE BUILDING 2022-01-17 2022-01-17 Outpatient [facility] [id number] [place] 10:38:00 10:38:00 MALDONADO -[id number] [facility] 2022-01-13 2022-01-13 (TEL) STLC STLC [id number] Co mmon 00:00:00 00:00:00 [facility] 2022-01-12 2022-01-12 (TEL) STLMLC STLMLC [id number] Co mmon 00:00:00 00:00:00 [facility] 2022-01-11 2022-01-11 Outpatient R [facility] [id number] Univers 07:32:00 09:32:00 MEHRDAD Field o f [facility] 2022-01-11 2022-01-11 Hospital [facility] 1.2.840.114 [id number] Univers 07:32:00 09:32:00 Encounter Mehrdad field 350.1.13.10 ity of [place] [phone] [place] [address] [address] 2022-01-11 2022-01-11 Surgery [facility] 1.2.840.114 [id number] Univers 08:20:00 08:56:00 Mehrdad field 350.1.13.10 ity of [place]ICAL [id number] Med [facility] CENTER [address] 2022-01-10 2022-01-10 Laboratory Only, Adc Test [facility] 1.2.840. 114 [id number] Univers 08:45:00 09:00:00 Only Mehrdad Blair 350.1.1 3.10 ity of [place] 4.2.7.2.686 [facility] CAMPUS [phone] [facility] [address] 2022-01-10 2022-01-10 Outpatient R MINH [facility] [id number] Univers 08:45:00 08:45:00 MEHRDAD Field o f [facility] 2022-01-10 2022-01-10 Orders Doctor BARONE 1.2.840.114 [id number] Univers 00:00:00 00:00:00 Only Unassigned, BAR 350.1.13.10 ity of [place] [facility] 4.2.7.2.686 [facility] [phone] [facility] [address] 2022-01-03 2022-01-03 Outpatient VERNELL [facility] [id number] [facility] 08:[facility]00 08:50:00 MALDONADO -[id number] [facility] 2021-12-07 2021-12-07 OFFICE STLMLC STLMLC [id number] Co mmon 00:00:00 00:00:00 VISIT [facility] PT - CHI LEVEL 4 [facility] 2021-11-24 2021-11-24 (TEL) STLMLC STLMLC [id number] Co mmon 00:00:00 00:00:00 [facility] 2021-11-11 2021-11-11 (TEL) STLMLC STLMLC [id number] Co mmon 00:00:00 00:00:00 [facility] 2021-11-08 2021-11-08 OFFICE STLMLC STLMLC [id number] Co mmon 00:00:00 00:00:00 VISIT [facility] ESTAB PT - CHI LEVEL 4 [facility] 2021-11-03 2021-11-03 NON-BILLAB STLMLC STLMLC [id number] Common 00:00:00 00:00:00 LE VISIT [facility] 2021-10-20 2021-10-20 NON-BILLAB STLMLC STLMLC [id number] Common 00:00:00 00:00:00 LE VISIT [facility] 2021-10-17 2021-10-18 Inpatient EM Lashell, [facility] [id number] [facility] 14:18:00 13:18:00 [place] 29 [facility] 2021-10-13 2021-10-13 (TEL) STLMLC STLMLC [id number] Co mmon 00:00:00 00:00:00 [facility] 2021-10-11 2021-10-11 OFFICE STLMLC STLMLC [id number] Co mmon 00:00:00 00:00:00 VISIT [facility] PT - CHI [address] 2021-09-12 2021-09-12 (TEL) STLMLC STLMLC [id number] Co mmon 00:00:00 00:00:00 [facility] 2021-09-02 2021-09-02 (TEL) STLMLC STLMLC [id number] Co mmon 00:00:00 00:00:00 [facility] 2021-09-02 2021-09-02 (TEL) STLMLC STLMLC [id number] Co mmon 00:00:00 00:00:00 [facility] 2021-09-02 2021-09-02 (TEL) STLMLC STLMLC [id number] Co mmon 00:00:00 00:00:00 [facility] 2021-08-31 2021-08-31 OFFICE STLMLC STLMLC [id number] Co mmon 00:00:00 00:00:00 VISIT [facility] PT - [facility] 4 [facility] 2021-08-25 2021-08-25 (TEL) STLMLC STLMLC [id number] Co mmon 00:00:00 00:00:00 [facility] 2021-08-23 2021-08-23 OFFICE STLMLC STLMLC [id number] Co mmon 00:00:00 00:00:00 VISIT Spirit ESTAB PT - CHI LEVEL 4 [facility] 2021-08-16 2021-08-16 OL DIG E/M STLMLC STLMLC [id number] Common 00:00:00 00:00:00 [facility] 11-20 Spir it MIN - CHI [facility] 2021-08-15 2021-08-15 (TEL) STLMLC STLMLC [id number] Co mmon 00:00:00 00:00:00 [facility] 2021-08-02 2021-08-02 Emergency X MARCELINA [facility] ERT [id number] Univers 12:57:00 18:07:00 KATTY perez [facility] 2021-08-02 2021-08-02 Emergency JohnCuco michaelip [facility] 1.2.840. 114 [id number] Univers 12:57:00 18:07:00 Katty Vie[place] 350.1.13.10 ana [facility] 4.2.7.2.686 [facility] [phone] [place] [address] [address] 2021-07-27 2021-07-27 (TEL) STLMLC STLMLC [id number] Co mmon 00:00:00 00:00:00 [facility] 2021-07-12 2021-07-12 Outpatient VERNELL [facility] [id number] [facility] 07:52:00 07:52:00 MALDONADO -[id number] [facility] 2021-07-07 2021-07-07 (TEL) STLMLC STLMLC [id number] Co mmon 00:00:00 00:00:00 Spirit [facility] 2021-07-06 2021-07-06 OFFICE STLMLC STLMLC [id number] Co mmon 00:00:00 00:00:00 VISIT Spirit ESTAB PT - CHI LEVEL 4 [facility] 2021-06-28 2021-06-28 Outpatient MHMAXIMO RANDALL [id number] Memoria 16:00:00 16:00:00 30 l [place] 2021-06-28 2021-06-28 Outpatient MHIE MHIE [id number] Memoria 16:00:00 16:00:00 30 l [place] 2021-06-22 2021-06-22 OFFICE STLMLC STLMLC [id number] Co mmon 00:00:00 00:00:00 VISIT Spirit ESTAB PT - CHI LEVEL 4 [facility] 2021-06-14 2021-06-14 Outpatient VERNELL [facility] [id number] [place] 08:05:00 08:05:00 MALDONADO -[id number] da [facility] 2021-06-02 2021-06-02 OFFICE STLMLC STLMLC [id number] Co mmon 00:00:00 00:00:00 VISIT Spirit ESTAB PT - CHI LEVEL 4 [facility] 2021-05-31 2021-05-31 Outpatient VERNELL [facility] [id number] [place] 11:00:00 11:00:00 MALDONADO -[id number] [facility] 2021-05-24 2021-05-24 Outpatient MHIE MHIE [id number] Memoria 15:30:00 15:30:00 29 l [place] 2021-05-24 2021-05-24 Outpatient MHIE MHIE [id number] Memoria 15:30:00 15:30:00 29 l [place] 2021-05-18 2021-05-18 SUB ANNUAL STLMLC STLMLC [id number] Common 00:00:00 00:00:00 MCR Spirit WELLNESS - CHI VISIT [facility] 2021-05-09 2021-05-09 Emergency [facility] 1.2.415.682 [id number] [facility] 10:58:00 17:26:00 Lavell Mcfarlane 350.1.13.10 i ty of [place] 4.2.7.2.686 [facility] [place] [phone] [place] [address] [address] 2021-05-04 2021-05-04 [facility] 1.2.840.114 [id number] Univers 11:54:00 14:35:00 Mehrdad Guaman 350.1.13.10 ity of [place] [phone] [facility] [address] 2021-05-04 2021-05-04 Surgery Charafeddin [facility] 1.2.840.114 [id number] Univers 13:25:00 13:57:00 Mehrdad field 350.1.13.10 ity of [place] [phone] [facility] [address] 2021-05-03 2021-05-03 Laboratory Only, Adc Test [facility] 1.2.840. 114 [id number] Univers 08:07:19 08:22:19 Only Mehrdad Blair 350.1.1 3.10 ity of [place] [phone] [facility] [address] 2021-05-03 2021-05-03 Outpatient R [facility] [id number] Univers 07:45:00 07:45:00 MEHRDAD Field o f [facility] 2021-05-03 2021-05-03 Orders Doctor ABISAI 1.2.840.114 [id number] Univers 00:00:00 00:00:00 Only Unassigned, BAR 350.1.13.10 ity of [place] [facility] 4.2.7.2.686 [facility] as [phone] [facility] [address] 2021-04-20 2021-04-20 Outpatient STLMLC STLMLC [id number] Common 00:00:00 00:00:00 [facility] 2021-03-10 2021-03-10 Hospital Radiology [facility] 1.2.840.114 [id number] 10:47:03 23:59:00 Encounter [place] 350.1.13.10 [place] 4.2.7.2.686 [place] [id number] 2021-03-10 2021-03-10 Hospital Radiology [facility] 1.2.840.114 [id number] 10:45:00 10:46:00 Encounter [place] 350.1.13.10 [place] 4.2.7.2.686 [place] [id number] 807 2021-03-10 2021-03-10 Outpatient R RADIOLOGY [facility] [id number] Univers 00:00:00 00:00:00 [facility] 2021-03-08 2021-03-08 Urgent Celso [facility] 1.2.840.114 [id number] 20:00:13 20:20:13 Care [facility] [id number] [place] [id number] [facility] [id number] nal 044 [address] 2021-03-08 2021-03-08 Outpatient R GREEN, [facility] [id number] Univers 20:00:00 20:00:00 LEON [facility] 2021-02-24 2021-02-24 Outpatient STLMLC STLMLC [id number] Common 00:00:00 00:00:00 [facility] 2021-02-19 2021-02-19 Outpatient STLMLC STLMLC [id number] Common 00:00:00 00:00:00 [facility] 2021-02-18 2021-02-18 Outpatient STLMLC STLMLC [id number] Common 00:00:00 00:00:00 [facility] 2021-02-16 2021-02-16 Outpatient STLMLC STLMLC [id number] Common 00:00:00 00:00:00 [facility] 2021-01-31 2021-01-31 Transition Dave Lowery 1.2.840.114 [id number] 00:00:00 00:00:00 of Care Karen Palomo [id number] [place] [id number] 2021-01-18 2021-01-28 [facility] Jona Davila [facility] 1.2.840.1 [id number] 21:13:00 14:30:00 Encounter Mauro Chinchilla [id number] [place] 4.2.7.2.686 [place] [id number] 2021-01-25 2021-01-25 Anesthesia Tai Avalos [facility] 1.2.840.11 [id number] 08:49:00 09:30:00 Event Randell López [id number] [place] 4.2.7.2.686 Surgical [id number] [place] 020 2021-01-25 2021-01-25 Surgery [facility] 1.2.840.114 [id number] 08:33:00 09:08:00 Denys [id number] [place] 4.2.7.2.686 Surgical [id number] [place] 020 2021-01-19 2021-01-19 Outpatient STLMLC STLMLC [id number] Common 00:00:00 00:00:00 [facility] 2021-01-14 2021-01-14 Outpatient MHIE MHIE [id number] [place] 13:30:00 13:30:00 28 [facility] 2021-01-14 2021-01-14 Outpatient MHIE MHIE [id number] [place] 13:30:00 13:30:00 28 dmitry Minden 2020-12-31 2020-12-31 Outpatient STLMLC STLMLC [id number] Common 00:00:00 00:00:00 [facility] 2020-12-30 2020-12-30 Outpatient STLMLC STLMLC [id number] Common 00:00:00 00:00:00 [facility] 2020-12-20 2020-12-20 Outpatient STLMLC STLMLC [id number] Common 00:00:00 00:00:00 [facility] 2020-12-14 2020-12-14 Outpatient VERNELL ELIECER, [facility] [id number] [place] 08:37:00 08:37:00 MALDONADO -[id number] [facility] 2020-12-08 2020-12-08 Telephone Sid [facility] 1.2.840.114 [id number] 00:00:00 00:00:00 [facility] [id number] Surgical 4.2.7.2.686 Specialti [id number] fredo Mcfarlane 2020-12-07 2020-12-07 Orders Doctor ABISAI 1.2.840.114 [id number] 00:00:00 00:00:00 Only Unassigned, BAR [id number] [facility] 4.2.7.2.686 [id number] 2020-12-06 2020-12-06 [facility] [id number] 15:09:54 15:49:09 Visit [facility] [id number] Surgical [id number] Specialti [phone] es [address] [place] 2020-12-06 2020-12-06 [facility] [id number] Univers 15:00:00 15:00:00 [facility] 2020-11-30 2020-11-30 Outpatient VERNELL GONZÁLES, [facility] [id number] [place] 09:00:00 09:00:00 MALDONADO -[id number] [facility] 2020-11-26 2020-11-26 Outpatient T[facility] [id number] Univers 09:30:00 09:30:00 [facility] 2020-11-24 2020-11-24 Outpatient Reena PAC[facility]CO [facility] [id number] Univers 09:30:00 09:30:00 [facility] 2020-11-16 2020-11-16 Outpatient STLMLC STLMLC [id number] Common 00:00:00 00:00:00 [facility] 2020-11-11 2020-11-11 Outpatient Reena [facility]CO [facility] [id number] Univers 11:15:00 11:15:00 [facility] 2020-11-09 2020-11-09 Outpatient Reena PAC[facility]CO [facility] [id number] Univers 13:45:00 13:45:00 [facility] 2020-11-09 2020-11-09 Outpatient Reena LAU [facility] [id number] Univers 00:00:00 00:00:00 [facility] 2020-11-08 2020-11-08 Outpatient Reena LAU [facility] [id number] Univers 00:00:00 00:00:00 NICHOLE perez [facility] 2020-11-03 2020-11-03 Outpatient STLMLC STLMLC [id number] Common 00:00:00 00:00:00 [facility] 2020-10-25 2020-10-25 Outpatient STLMLC STLMLC [id number] Common 00:00:00 00:00:00 [facility] 2020-10-22 2020-10-22 Outpatient STLMLC STLMLC [id number] Common 00:00:00 00:00:00 [facility] 2020-10-20 2020-10-20 Outpatient STLMLC STLMLC [id number] Common 00:00:00 00:00:00 [facility] 2020-10-14 2020-10-14 Outpatient MHIE MHIE [id number] Memoria 15:00:00 15:00:00 27 l [place] 2020-10-14 2020-10-14 Outpatient MHIE MHIE [id number] Memoria 15:00:00 15:00:00 27 l Tanmay 2020-10-14 2020-10-14 Outpatient MHIE MHIE [id number] Memoria 14:15:00 14:15:00 25 l Tanmay 2020-10-14 2020-10-14 Outpatient MHIE MHIE [id number] Memoria 14:15:00 14:15:00 25 dmitry FunkTanmay 2020-10-12 2020-10-12 Outpatient STLMLC STLMLC [id number] Common 00:00:00 00:00:00 [facility] 2020-09-15 2020-09-15 Outpatient STLMLC STLMLC [id number] Common 00:00:00 00:00:00 [facility] 2020-09-10 2020-09-10 Outpatient Reena NIKKI [facility] [id number] Univers 19:40:00 19:40:00 AMANDA vincent [facility] 2020-09-04 2020-09-04 Outpatient VERNELL GONZÁLES [facility] [id number] [place] 09:00:00 09:00:00 MALDONADO -[id number] [facility] 2020-08-24 2020-08-24 Outpatient MHIE MHIE [id number] Memoria 13:45:00 13:45:00 26 l [place] 2020-08-24 2020-08-24 Outpatient MHIE MHIE [id number] Memoria 13:45:00 13:45:00 26 l Tanmay 2020-07-22 2020-07-22 Outpatient MHIE MHIE [id number] Memoria 14:30:00 14:30:00 24 l Tan[place] 2020-07-22 2020-07-22 Outpatient MHIE MHIE [id number] Memoria 14:30:00 14:30:00 24 l [place] 2020-07-12 2020-07-12 Outpatient STLMLC STLMLC [id number] Common 00:00:00 00:00:00 [facility] 2020-06-11 2020-06-11 Outpatient STLMLC STLMLC [id number] Common 00:00:00 00:00:00 [facility] 2020-06-01 2020-06-01 Outpatient R MINH [facility] [id number] Univers 11:45:00 11:45:00 MEHRDAD Field [facility] 2020-05-26 2020-05-26 Outpatient STLMLC STLMLC [id number] Common 00:00:00 00:00:00 [facility] 2020-05-11 2020-05-11 Outpatient STLMLC STLMLC [id number] Common 00:00:00 00:00:00 [facility] 2020-05-04 2020-05-04 Outpatient VERNELL GONZÁLES [facility] [id number] [place] 09:57:00 09:57:00 MALDONADO -[id number] [facility] 2020-04-20 2020-04-20 Outpatient VERNELL GONZÁLES [facility] [id number] [place] 09:38:00 09:38:00 MALDONADO -[id number] [facility] 2020-04-16 2020-04-16 Outpatient [facility] [id number] Common 15:00:00 15:00:00 t [facility] it Road [facility] 2020-04-16 2020-04-16 Outpatient ST[facility] [id number] Common 00:00:00 00:00:00 [facility] 2020-04-13 2020-04-13 Out[facility] [id number] Common 08:51:00 08:51:00 t [facility] it [facility] 2020-04-08 2020-04-08 Outpatient MHIE MHIE [id number] Memoria 13:45:00 13:45:00 22 l [place] 2020-04-08 2020-04-08 Outpatient MHIE MHIE [id number] Memoria 13:45:00 13:45:00 22 l [place] 2020-03-18 2020-03-18 Outpatient MHIE MHIE [id number] Memoria 15:00:00 15:00:00 19 l [place] 2020-03-18 2020-03-18 Outpatient MHIE MHIE [id number] Memoria 15:00:00 15:00:00 20 l Tan[place] 2020-03-18 2020-03-18 Outpatient MHIE MHIE [id number] Memoria 15:00:00 15:00:00 21 l Tanmay 2020-03-18 2020-03-18 Outpatient MHIE MHIE [id number] Memoria 15:00:00 15:00:00 19 l [place] 2020-03-18 2020-03-18 Outpatient MHIE MHIE [id number] Memoria 15:00:00 15:00:00 21 l [place] 2020-03-18 2020-03-18 Outpatient MHIE MHIE [id number] Memoria 15:00:00 15:00:00 20 l [place] 2020-03-11 2020-03-11 Outpatient MHIE MHIE [id number] Memoria 16:15:00 16:15:00 23 l Tanmay 2020-03-11 2020-03-11 Outpatient MHIE MHIE [id number] Memoria 16:15:00 16:15:00 23 l [place] 2020-02-27 2020-02-27 [facility] [id number] Common 14:00:00 14:00:[address] [facility] 2020-02-23 2020-02-23 Outpatient [facility] [id number] Common 13:12:00 13:12:[address] [facility] 2020-02-18 2020-02-18 Outpatient [facility] [id number] Common 09:08:00 09:08:[address] [facility] 2020-02-16 2020-02-16 Outpatient [facility] [id number] Common 18:34:00 18:34:[address] [facility] 2020-02-11 2020-02-11 Outpatient Marcell [facility] [id number] Common 13:20:00 13:20:[address] [facility] 2020-01-06 2020-01-06 Outpatient Marcell [facility] [id number] Common 18:46:00 18:46:[address] [facility] 2019-12-22 2019-12-22 Outpatient [facility] [id number] Common 14:00:00 14:00:00 [facility] 2019-12-17 2019-12-17 Outpatient MHIE MHMAXIMO [id number] Memoria 15:45:00 15:45:00 17 l [place] 2019-12-17 2019-12-17 Outpatient MHIE MHIE [id number] Memoria 15:45:00 15:45:00 17 l Tan[place] 2019-12-05 2019-12-05 Outpatient MHIE MHMAXIMO [id number] Memoria 16:00:00 16:00:00 18 l [place] 2019-12-05 2019-12-05 Outpatient MHIE MHIE [id number] Memoria 16:00:00 16:00:00 18 l Tan[place] 2019-12-05 2019-12-05 Out[facility] [id number] Common 10:40:00 10:40:[address] [facility] 2019-11-28 2019-11-28 Outpatient [facility] [id number] Common 11:00:00 11:00:[address] [facility] [address] [facility] 2019-11-19 2019-11-19 Outpatient MHIE TONIA [id number] Memoria 08:15:00 08:15:00 16 l [place] 2019-11-19 2019-11-19 Outpatient MHIE TONIA [id number] Memoria 08:15:00 08:15:00 16 l [place] 2019-11-18 2019-11-18 Outpatient MHMAXIMO RANDALL [id number] Memoria 10:15:00 10:15:00 15 l [place] 2019-11-18 2019-11-18 Outpatient MHMAXIMO RANDALL [id number] Memoria 10:15:00 10:15:00 15 l [place] 2019-11-10 2019-11-10 Outpatient [facility] [id number] Common 15:55:00 15:55:[address] [facility] [address] [facility] 2019-11-05 2019-11-05 Outpatient [facility] [id number] Common 18:33:00 18:33:[address] [facility] [address] [facility] 2019-10-28 2019-10-28 Outpatient [facility] [id number] Common 11:08:00 11:08:[address] [facility] [address] [facility] 2019-10-27 2019-10-27 Outpatient [facility] [id number] Common 14:31:00 14:31:[address] [facility] [address] [facility] 2019-10-13 2019-10-13 Outpatient [facility] [id number] Common 09:00:00 09:00:[address] [facility] [address] [facility] 2019-09-29 2019-09-29 Outpatient [facility] [id number] Common 11:30:00 11:30:[address] [facility] [address] [facility] 2019-09-26 2019-09-26 Outpatient MHIE TONIA [id number] Memoria 09:15:00 09:15:00 14 l [place] 2019-09-26 2019-09-26 Outpatient MHIE TONIA [id number] Memoria 09:15:00 09:15:00 14 l [place] 2019-09-18 2019-09-18 [id number] Common 14:40:00 14:40:00 [facility] 2019-09-02 2019-09-02 Outpatient VERNELL GONZÁLES [facility] [id number] [place] 10:28:00 10:28:00 MALDONADO -[id number] [facility] 2019-08-19 2019-08-19 Outpatient VERNELL GONZÁLES [facility] [id number] [place] 09:53:00 09:53:00 MALDONADO -[id number] [facility] 2019-08-15 2019-08-15 Outpatient TONIA RANDALL [id number] Memoria 13:30:00 13:30:00 13 dmitry Donato 2019-08-15 2019-08-15 Outpatient MHMAXIMO RANDALL [id number] Memoria 13:30:00 13:30:00 13 dmitry Donato 2019-08-14 2019-08-14 [id number] Common 14:18:00 14:18:00 [facility] 2019-08-13 2019-08-13 Outpatient [facility] [id number] Common 11:00:00 11:00:00 [facility] 2019-07-18 2019-07-18 [facility] [id number] Common 09:00:00 09:00:00 [facility] 2019-07-08 2019-07-08 Outpatient MHIE TONIA [id number] Memoria 10:00:00 10:00:00 11 dmitry Donato 2019-07-08 2019-07-08 Outpatient MHIE TONIA [id number] Memoria 10:00:00 10:00:00 11 dmitry Donato 2019-06-23 2019-06-23 [facility] [id number] Common 10:40:00 10:40:[address] [facility] [address] [facility] 2019-06-10 2019-06-10 Outpatient VERNELL GONZÁLES [facility] [id number] [place] 10:56:00 10:56:00 MALDONADO -[id number] [facility] 2019-06-09 2019-06-09 Outpatient [facility] [id number] Common 12:17:00 12:17:[address] [facility] [address] [facility] 2019-06-09 2019-06-09 Outpatient [facility] [id number] Common 08:20:00 08:20:[address] [facility] [address] [facility] 2019-05-30 2019-05-30 Outpatient [facility] [id number] Common 08:00:00 08:00:[address] [facility] [address] [facility] 2019-05-23 2019-05-23 Outpatient MHIE MHIE [id number] Memoria 09:15:00 09:15:00 10 dmitry [place] 2019-05-23 2019-05-23 Outpatient MHIE MHIE [id number] Memoria 09:15:00 09:15:00 10 dmitry FunkTanmay 2019-05-20 2019-05-20 Outpatient VERNELL GONZÁLES [facility] [id number] [place] 09:21:00 09:21:00 MALDONADO -[id number] [facility] 2019-05-16 2019-05-16 Outpatient MHIE MHIE [id number] Memoria 08:30:00 08:30:00 12 dmitry Funk[place] 2019-05-16 2019-05-16 Outpatient MHIE MHIE [id number] Memoria 08:30:00 08:30:00 12 dmitry FunkMinden 2019-05-06 2019-05-06 Outpatient VERNELL GONZÁLES [facility] [id number] [place] 09:45:00 09:45:00 MALDONADO -[id number] [facility] 2019-04-30 2019-04-30 Outpatient MHIE MHIE [id number] Memoria 09:15:00 09:15:00 09 dmitry [place] 2019-04-30 2019-04-30 Outpatient MHIE MHIE [id number] Memoria 09:15:00 09:15:00 09 dmitry [place] 2019-04-04 2019-04-04 Outpatient MHIE TONIA [id number] Memoria 09:30:00 09:30:00 08 dmitry Tan[place] 2019-04-04 2019-04-04 Outpatient MHIE TONIA [id number] Memoria 09:30:00 09:30:00 08 dmitry Tan[place] 2019-04-03 2019-04-03 [facility] [id number] Common 09:00:00 09:00:00 [facility] 2019-03-24 2019-03-24 Outpatient [facility] [id number] Common 10:15:00 10:15:00 t Specialty/U Sp coretta Specialty rology - [facility] 2019-03-04 2019-03-04 Outpatient [facility] [id number] Common 11:00:00 11:00:00 t Specialty/U Sp coretta Specialty rology - [facility] 2019-02-21 2019-02-21 Out[facility] [id number] Common 13:45:00 13:45:00 t Specialty/U Sp coretta Specialty rology - [facility] 2019-02-18 2019-02-18 Outpatient [facility] [id number] Common 15:42:00 15:42:00 t [facility] [address] [facility] 2019-02-11 2019-02-11 Outpatient Marcell [facility] [id number] Common 13:20:00 13:20:00 [facility] [address] [facility] 2018-12-27 2018-12-27 Outpatient TONIA RANDALL [id number] Memoria 09:30:00 09:30:00 07 dmitry Donato 2018-12-27 2018-12-27 Outpatient MHIE TONIA [id number] Memoria 09:30:00 09:30:00 07 dmitry Tanmay 2018-11-21 2018-11-21 Outpatient MHIE MHIE [id number] Memoria 15:00:00 15:00:00 06 dmitry Donato 2018-11-21 2018-11-21 Outpatient MHIE MHIE [id number] Memoria 15:00:00 15:00:00 06 dmitry Donato 2018-11-11 2018-11-11 Out[facility] [id number] Common 09:20:00 09:20:00 t [facility] it Road [facility] 2018-10-01 2018-10-01 Outpatient [facility] [id number] Common 15:30:00 15:30:00 t [facility] it Road [facility] 2018-09-06 2018-09-06 Outpatient [facility] [id number] Common 10:00:00 10:00:[address] [facility] [address] [facility] 2018-08-22 2018-08-22 Outpatient MHIE MHIE [id number] Memoria 15:15:00 15:15:00 05 dmitry Donato 2018-08-22 2018-08-22 Outpatient MHIE MHIE [id number] Memoria 15:15:00 15:15:00 05 dmitry Donato 2018-06-13 2018-06-13 Outpatient MHIE MHIE [id number] Memoria 14:00:00 14:00:00 04 dmitry Donato 2018-06-13 2018-06-13 Outpatient MHIE MHIE [id number] Memoria 14:00:00 14:00:00 04 dmitry Donato 2018-05-21 2018-05-21 Out[facility] [id number] Common 08:37:00 08:37:00 t [facility] it Road [facility] 2018-05-09 2018-05-09 Outpatient [facility] [id number] Common 08:30:00 08:30:00 t [facility] it Road [facility] 2018-03-20 2018-03-20 Outpatient MHIE MHIE [id number] Memoria 10:45:00 10:45:00 02 dmitry Donato 2018-03-20 2018-03-20 Outpatient THELMAIE TONIA [id number] Memoria 10:45:00 10:45:00 02 dmitry Donato 2018-03-13 2018-03-13 Outpatient THELMAIE TONIA [id number] Memoria 14:00:00 14:00:00 03 dmitry Donato 2018-03-13 2018-03-13 Outpatient TONIA RANDALL [id number] Memoria 14:00:00 14:00:00 03 dmitry Donato 2017-11-14 2017-11-14 Outpatient THELMAIE TONIA [id number] Memoria 10:15:00 10:15:00 01 dmitry Donato 2017-11-14 2017-11-14 Outpatient TONIA RANDALL [id number] Memoria 10:15:00 10:15:00 01 dmitry Donato 2003-10-11 2003-10-11 Emergency ER JENNIFER, [facility] [id number] [place] 04:05:00 06:00:00 GABRIEL -[id number] [facility] Results Test Description Test Time Test Comments Results Result Comments Source Type and Screen - This is a pre-surgical type and scre en. ONCE 2023-06-18 13:20:00 PRINCE Test Item Value Reference Range Interpretation Comme nts ABO & RH (test code = 20) A Positive IAT (test code = 1185) [facility] type and screen. ONCE [id number] 13:20:00 Test Item Value Reference Range Interpretation Comments ABO & RH (test code = 20) A Positive IAT (test code = 1185) [facility]2023-06-18 13:15:09 Test Item Value Reference Range Interpretation Comments POCT GLU (test code = 6663862431) 105 mg/dL 70-110 Lab Interpretation (test code = Normal 92972-4) [facility] GLUCOSE (AUTOMATED)2023-06-18 13:15:09 Test Item Value Reference Range Interpretation Comments POCT GLU (test code = 2991854995) 105 mg/dL 70-110 Lab Interpretation (test code = Normal 72946-6) [facility] [id number] 00:00:00 Test Item Value Reference Range Interpretation Comments NUCLEATED RBCS (test 0.0 /100 WBC'S See_Comment [Aut omated message] code = 65924-3) The system [employer] generated this result transmit anibal reference range : 0.0 /100 WBC'S. The reference range was not used to interpret this result as normal/abnormal . ABSOLUTE EOSINOPHILS 0.24 K/UL See_Comment [Autom ated message] (test code = The system [facility] 88472-0) generated this result transmit anibal reference range : 0.00-0.50 K/UL. The reference range was not used to interpret this result as normal/abnormal . ABSOLUTE LYMPHOCYTES 1.48 K/UL See_Comment [Autom ated message] (test code = The system [facility] 89318-7) generated this result transmit anibal reference range : 1.00-4.00 K/UL. The reference range was not used to interpret this result as normal/abnormal . ABSOLUTE MONOCYTES 0.37 K/UL See_Comment [Automat ed message] (test code = The system [facility] 60091-7) generated this result transmit anibal reference range : 0.2-3.8 K/UL. T he reference range was not used to interpret this result as normal/abnormal . ABSOLUTE NEUTROPHILS 2.25 K/UL See_Comment [Autom ated message] (test code = The system [facility] 06838-2) generated this result transmit anibal reference range : 1.50-7.50 K/UL. The reference range was not used to interpret this result as normal/abnormal . BASOPHILS (test code 0.9 % = 30384-8) EOSINOPHILS (test 5.5 % code = 81840-0) HEMATOCRIT (test 37.1 % See_Comment [Automated message] code = 89793-3) The system [employer] generated this result transmit anibal reference range : 34.0-45.0 %. Th e reference range was not used to interpret this result as normal/abnormal . HEMOGLOBIN (test 12.4 G/DL See_Comment [Automated message] code = 718-7) The system [facility] generated this result transmit anibal reference range : 11.5-15.5 G/DL. The reference range was not used to interpret this result as normal/abnormal . LYMPHOCYTES (test 33.7 % code = 38096-8) MCH (test code = 32.1 PG See_Comment [Automated message] 25339-6) The system [employer] generated this result transmit anibal reference range : 25.0-33.0 PG. T he reference range was not used to interpret this result as normal/abnormal . MCHC (test code = 33.4 G/DL See_Comment [Automate d message] 24199-8) The system [employer] generated this result transmit anibal reference range : 31.0-36.0 G/DL. The reference range was not used to interpret this result as normal/abnormal . MCV (test code = 96.1 fL See_Comment [Automated message] 75412-1) The system [employer] generated this result transmit anibal reference range : 80.0-99.0 fL. T he reference range was not used to interpret this result as normal/abnormal . MONOCYTES (test code 8.4 % = 84583-8) NEUTROPHILS (test 51.3 % code = 49677-9) PLATELET COUNT (test 239 K/UL See_Comment [Autom ated message] code = 92700-3) The system RECC[facility] generated this result transmit anibal reference range : 130-400 K/UL. T he reference range was not used to interpret this result as normal/abnormal . RBC (test code = 3.86 M/UL See_Comment [Automated message] 42106-7) The system [employer] generated this result transmit anibal reference range : 3.80-5.40 M/UL. The reference range was not used to interpret this result as normal/abnormal . RDW (test code = 13.1 % See_Comment [Automated message] 80682-8) The system [employer] generated this result transmit anibal reference range : 11.5-15.0 %. Th e reference range was not used to interpret this result as normal/abnormal . WBC (test code = 4.4 K/UL See_Comment [Automated message] 78357-4) The system [employer] generated this result transmit anibal reference range : 3.5-11.0 K/UL. The reference range was not used to interpret this result as normal/abnormal . HEMOGLOBIN [id number] 00:00:00 Test Item Value Reference Range Interpretation Comments HEMOGLOBIN A1c (test 6.6 % See_Comment H [Autom ated message] The code = 4548-4) system which generated this result tra nsmitted reference range : 4.2-5.6 %. The referenc e range was not used to interpret this result as normal/abnormal . LIPID PANEL WITH REFLEX DIRECT [id number] 00:00:00 Test Item Value Reference Range Interpretation Comments CALC LDL CHOL (test 61 MG/DL See_Comment [Automa anibal message] code = 44401-2) The system w [facility] generated this result transmit anibal reference range : <100 MG/DL. The reference range was not used to interpret this result as normal/abnormal . CHOLESTEROL (test code 139 MG/DL See_Comment [Aut omated message] = 2093-3) The system [facility] generated this result transmit anibal reference range : <200 MG/DL. The reference range was not used to interpret this result as normal/abnormal . HDL CHOLESTEROL (test 63 MG/DL See_Comment [Auto mated message] code = 2085-9) The system [facility] generated this result transmit anibal reference range : >39 MG/DL. The refe rence range was not u sed to interpret th is result as normal/abnormal . RISK RATIO LDL/HDL 0.97 RATIO See_Comment [Automat ed message] (test code = 53748-6) The sy stem which generated this result transmit anibal reference range : <3.22 RATIO. Th e reference range was not used to interpret this result as normal/abnormal . TRIGLYCERIDES (test 70 MG/DL See_Comment [Automa anibal message] code = 2571-8) The system [facility] generated this result transmit anibal reference range : <150 MG/DL. The reference range was not used to interpret this result as normal/abnormal . TSH + FREE T4 [id number] 00:00:00 Test Item Value Reference Range Interpretation Comments FREE T4 (THYROXINE) 1.17 NG/DL See_Comment [Automa anibal message] (test code = 3024-7) The sys tem which generated this result transmitted ref erence range: 0.80-1.9 0 NG/DL. The refe rence range was not u sed to interpret this result as normal/abnor mal. TSH, THIRD 6.330 UIU/ML See_Comment H [Automated mes corazon] GENERATION (test The system which code = 08673-1) generated th is result transmitted ref erence range: 0.400-4. 100 UIU/ML. The ref erence range was not u sed to interpret this result as normal/abnor mal. ALBUMIN/CREATININE RATIO, RANDOM [id number] 00:00:00 Test Item Value Reference Range Interpretation Comments ALBUMIN, URINE, 0.6 MG/DL NOT ESTAB MG/DL RANDOM (test code = 03543-0) CALC ALBUMIN/CREAT, 6 MG/G See_Comment [Automa anibal message] RND (test code = The system which 36251-4) generated this result transmitted ref erence range: <30 MG/G . The reference range was not used to interpr et this result as normal/abnormal . CREATININE, URINE, 104.8 MG/DL NOT ESTAB MG/DL CONC. (test code = 2161-8) COMPREHENSIVE METABOLIC [id number] 00:00:00 Test Item Value Reference Range Interpretation Comments ALBUMIN (test code = 4.4 G/DL See_Comment [Autom ated message] 1751-7) The system [employer] generated this result transmit anibal reference range : 3.5-5.2 G/DL. T he reference range was not used to interpret this result as normal/abnormal . ALKALINE PHOSPHATASE 114 U/L See_Comment [Autom ated message] (test code = 6768-6) The sys tem which generated this result transmit anibal reference range : 40-140 U/L. The reference range was not used to interpret this result as normal/abnormal . BILIRUBIN, TOTAL 0.3 MG/DL See_Comment [Automated message] (test code = 1975-2) The sys tem which generated this result transmit anibal reference range : <=1.2 MG/DL. Th e reference range was not used to interpret this result as normal/abnormal . BUN (test code = 10 MG/DL See_Comment [Automated message] 3094-0) The system [employer] generated this result transmit anibal reference range : 8-23 MG/DL. The reference range was not used to interpret this result as normal/abnormal . CALCIUM (test code = 9.5 MG/DL See_Comment [Autom ated message] 04091-8) The system [employer] generated this result transmit anibal reference range : 8.5-10.5 MG/DL. The reference range was not used to interpret this result as normal/abnormal . CALC A/G RATIO (test 1.8 RATIO See_Comment [Autom ated message] code = 1759-0) The system [facility] generated this result transmit anibal reference range : 1.0-2.6 RATIO. The reference range was not used to interpret this result as normal/abnormal . CALC BUN/CREAT (test 11 RATIO See_Comment [Autom ated message] code = 3097-3) The system [facility] generated this result transmit anibal reference range : 6-28 RATIO. The reference range was not used to interpret this result as normal/abnormal . CALC GLOBULIN (test 2.5 G/DL See_Comment [Automa anibal message] code = 79334-2) The system [facility] generated this result transmit anibal reference range : 1.9-3.7 G/DL. T he reference range was not used to interpret this result as normal/abnormal . CARBON DIOXIDE (test 16 MEQ/L See_Comment L [Autom ated message] code = 1963-8) The system [facility] generated this result transmit anibal reference range : 19-31 MEQ/L. Th e reference range was not used to interpret this result as normal/abnormal . CHLORIDE (test code 104 MEQ/L See_Comment [Automa anibal message] = 5-0) The system [facility] generated this result transmit anibal reference range : 95-107 MEQ/L. T he reference range was not used to interpret this result as normal/abnormal . CREATININE (test 0.87 MG/DL See_Comment [Automated message] code = 2160-0) The system [facility] generated this result transmit anibal reference range : 0.60-1.30 MG/DL . The reference range was not used to interpret this result as normal/abnormal . eGFR (2020 CKD-EPI) 75 ML/MIN/1.73 See_Comment [Auto mated message] (test code = The system [facility] 25341-7) generated this result transmit anibal reference range : >60 ML/MIN/1.73. Th e reference range was not used to interpret this result as normal/abnormal . GLUCOSE (test code = 114 MG/DL See_Comment H [Autom ated message] 1558-6) The system [facility] generated this result transmit anibal reference range : 70-99 MG/DL. Th e reference range was not used to interpret this result as normal/abnormal . POTASSIUM (test code 4.7 MEQ/L See_Comment [Autom ated message] = 3233-3) The system [employer] generated this result transmit anibal reference range : 3.5-5.4 MEQ/L. The reference range was not used to interpret this result as normal/abnormal . PROTEIN, TOTAL (test 6.9 G/DL See_Comment [Autom ated message] code = 2885-2) The system [employer] generated this result transmit anibal reference range : 6.1-8.3 G/DL. T he reference range was not used to interpret this result as normal/abnormal . AST (test code = 23 U/L See_Comment [Automated message] 1920-8) The system [employer] generated this result transmit anibal reference range : 9-40 U/L. The reference range was not used to interpret this result as normal/abnormal . ALT (test code = 17 U/L See_Comment [Automated message] 1742-6) The system [employer] generated this result transmit anibal reference range : 5-40 U/L. The reference range was not used to interpret this result as normal/abnormal . SODIUM (test code = 137 MEQ/L See_Comment [Automa anibal message] 2951-2) The system [employer] generated this result transmit anibal reference range : 133-146 MEQ/L. The reference range was not used to interpret this result as normal/abnormal . POCT GLUCOSE (AUTOMATED)2022-03-24 21:07:00 Test Item Value Reference Range Interpretation Comments POCT GLU (test code = 1396253343) 86 mg/dL 70-110 Lab Interpretation (test code = Normal 17815-0) [facility] 21:07:00 Test Item Value Reference Range Interpretation Comments POCT GLU (test code = 0261576125) 86 mg/dL 70-110 Lab Interpretation (test code = Normal 56085-4) [facility] BGOQ0525-46-75 16:43:01 Test Item Value Reference Range Interpretation Comments Case Report (test Surgical Pathology ? ? ? code = 1550119670) ?Case: [id number] ? Authorizing Provider: ?Gou, Earnest Winsons, MD ? ? ?Collected: ? 03/23/2022 0936 ?Ordering Location: ? ? GI Endoscopy OR Department Received: ?03/23/2022 1143 ?Pathologist: ? Luisana Willard MD PHD ?Specimen: ? ?STOMACH, 1. Antral erythermia biopsy, eval for H. Pylori and intestinal metaplasia ? Final Diagnosis l5zavDExWRAkt7mpLRQrkOTbM (test code = zEwMzNcZnRuYmpcdWMxIHtccn 5446788275) FtKYywoGhhJBLbLDWrSU2xaOx afAz0fLvvJQQqroO2gTKrSQyr w6rwMME0n1uclnqxVKRpLPxpD g4gcRWtzKgiArMcEBSxFHs0fI 82QPCavU8ggFJlRLj3SSCtjZQ umgMuKwJySRCsnMVfqGN6BKZy XU8skjgoHSerKXtxUOVcheK7N EVgsPFbG8ImDGRxZP3hgolnNF W7RFwvZFGeUMY8LjZdKRAsw7D unte3JjIihMMjTFhuhQXccypi rmQdCIVpsrRNZsHGLN3JMSRNC BZBPL9LD9ihmPDaOZAnAD3eP8 GUQRVTAtOSKZOFH1HcX5vPPQD TEHDDUGwAUVHFYRPUHj4ZOFZI WVxwYXIgICAgLSBOTyBJTlRFU 0IJAwFTCC5YNAXJJQANFQAmO1 ZfSVhDSGyLS4uOKTjQGZ1BREV OITAxdFVjACVgKN8rPs8jYL3s MEnHY6QFGElVH1EcI0UJVK7QN 01TTSqDUF7OJTZXSPDvcMGeBO ZfewUduVCkWHsqnAkmPWtce97 rcywgTUQgIDgvMTkvMjAyMiAg MIN2ApLvZT9onXCdCMLojoLcq LZkxCacwhKdKQarq5SjC7QxCw AwMFxhbnNpXGRlZmxhbmcxMDM tIRW8wiBhNCJvROjeAEVpZXnc Iv3feQMvnAklImEuXAHxe3ywu mSCHTyeHsYuS335EVPbZAuzn8 fdt8JqIAVijZJen5F3LLMPxhu fcXh6q9rgYlYmHrS9dOJwGDmz W6lhlyPrzHApZ4FlcDUhuUa1k OjaG04lp9T5TiveI0jsDQXnVG IyX5PhJY3zIBBrKtk7ASV9JNQ 5HKTdRGSwL9UlML7rHHQulJKq KBx8f7mskAznLGDqQZF8u6jyG UodjgF8PJ7btq7gjJz3r7sbku KgHZClXFHweSOJKSXhJ9LkrQl qCu8ssWr2nUlhDtokROJ8Dni0 FD6avt40wfs7dPhrXQWukitvS qH3SDmwJSCoyeheNXd4IIejBG RoiLI4VFMwaANcP0ChUEXhAB7 zidn8NAK3FFlrUMDgHyQ3DKNh xBSpAHOcvTjrODqxt195NNJ8Z wLnBN0nI1Gko6G4pJ1sbXNrUS ShgFZgRdTlXWViip0mqMUtNPz kk7VqOXI9skH5uVOpdXBxGUXt LJ20Fbkbg6PdPclaGMG0EEWrm pEzb1Vgu1joMlNzlkFsZ0xwR2 QpEJAjVGTmQHOsAhHfyhIcv0Y ux4GokFFhaLg5h0dyPMZlYJIx tBcpc3hdTUB6SYFeX8K9wEVzm 0iuPXvbTLJssNL2djT3PUPrwF AvY6TeqS9bEKQiVK0jwdy3y4z xSJN2KAhoASWdVoD8pyI3VHBq gRPyDZBsfUukNVbty005XSF4N kLyDKKid3ZsJ0ZhvWziB12ctI srH09zLHQjgXpwuH2fqOindY8 cZjBcZnMyNFxxbFxwbGFpblxm MVxmczIwXGxhbmcxMDMzXGhpY 9cbXxYbMKThrYrhKXlve9MuVQ YxXGNmMlxmczIwXHBhciBJIGh cpoXnzDDmj18oZGthwJJrSNEr MTodFXVaxHxgg9OkQ6dyGM7cG 9MdhLAjnbDghbMkITgzXYMvf2 n0lTKrgGzvm3PxcOFuWK83gfB jTNWsTRH6SWMzv4fdOT63msyh OcJxfG56xfFrwtWiFJBiu3yoM 7kktOIjc0Hud9GexjGhEYnla4 NcFH8oaGPkltcnzHD0TSDwaMP ozuKisgW3iQmrQIWqrC6blZ1j jLfxnF0rWzEmNbDfAIftZN8bF HLbB0vvqYLvWFRnPFWiW0qtNj MeaU9pdIvvEqdcejX3YVVahp0 9 Clinical Information Chris Joseph is a (test code = 61 year old female [id number]) Gastrointestinal hemorrhage, unspecified gastrointestinal hemorrhage type [K92.2]: 1. Antral erythermia biopsy, eval for H. Pylori and interstinal metaplasia Gross Description a8uwwZImBTYnhBBABKEqABZvL (test code = N9ytYpywHr9rNafGISatoG0zO 6440520809) GlREhmg7qdCXM9j6itjiLNRpe lAWYhWVdiPWNznbmpKjA3HEal CMXtyezdAVs8AQmsNIFpbQA3S TNclBBzX4HrFKUvAH9peac8EB F5ILdbTIOnIuP0DEMiVmAtDee zTPa0DDFwgiA5Qdx4UUOeCNPr zRTsz2O3JDbhizqwAQRkbCZsX 198DMipt7YfyELnCKmvbMCsQX WOPjbcFjjvxFvls3NlnFWdWKr hYBOnFPHgSOatdissYGd7BQMe JYsudDTzAK0scMjxUyhhnUitx 2VjdCBcXGlkIDUxMDAyIFxcZG WdVH0XDhGmYOHtBUc9WDohTTz 6OUw5HE2PWeExQATeAZcdEKb3 FqZoRRb7YSsrUG6JGCP9PDX4T fM7NTPkJRBqNAJeGSi1JVYoEX xmIEFyaWFsIFxcZnMgMTAgXFx wiJVsRN0lrMasgGEuennvcuRh MFSEDISSLFCWWENcnAIbIW1NY YVtURjxJXSyyHZGCFT7PY3cYV ANClxsdHJwYXJcbGluMFxyaW4 eEE8DEAc8naWsNOWqLwIvZ3Md J4jcZY8aBHEqwrQoSVJjyALqH UMhbsIsl1HaBRbuahYoLIVbaK VkIHdpdGggdGhlIHBhdGllbnQ rwuJkAV9zGLETFXKvcS0tACDc CyW8x10jH5zsNLRkzIPznASop al7lMGyYYPaxK2vq6bcKHG8DS uaMc5sBRqeUFA8rO3ifIDminU igJ36DPE1cL5vdWVwPBInkItl q4flQuXqltSpA79vr5ocaODzo 1KwYnI3EZ9kgOlcizOipmYmO2 AnWCGey69boCI3rECeyJOiPrW gE27ngsSvDYulAS6ztW8uNIUb a45mYC1zYNYpMJKuOOHxuRTic nLlamQbmRYydNUkmE9xodFjw2 5fRYJqLAJ7ZEQlHKQ5RKSfTOH xiTYodaPrZ1rhVKgzwVEmYtWC rJFzz4DoG6ysLI6qeQBiGeihr GGwWRDmkOoef1ZjgNMhWSBwx7 ZdfQJaHRfdYJ3nNQH4Sn0dvRK aYTTjllT0x1MdSJjeOSXzZwzm EEKlILojpYGiQP9AUNUrdBBGX Qcam6ZzYOquIJNfUEPUF1CnBK mlOHBvB88bx9LNz0KmIBTgg4q efDeca5KviSKwZWzaFNWhhVOo QSsxvM4jEaKkf2hqkDi2LNqrj eP6TLPtkp8koPgevA5fMEgby8 rsMBG5KTFapIZamRAiSCereOi nyV3qMgAdLlu1CCpkUYUmJ5Cl Z2EldxY0FDJlMGvnYYRoEIFhS Qp9 Disclaimer (test s8pxdNOrOFQpl3klGMTuaFOdQ code = [id number]) zEwMzNcZnRuYmpcdWMxIHtccn LuPTcoy2VrX6HnXsWxWYatcgN tMHRzZlsvlynlPLEuLQK6gnNx RGKwHYlsIFNoMDwnZt0jyVOxm AjjBmVtGJUwn8wahfVGSVmmUv NkA715ZGZiOOgqu1qdc6JuNOG lhOWbd8N1SRHYzvpngCx3sLsh F48sz5P6PtumC0wbDIUfOYQyB 1BwVU9wEDKuMde8XRK1KGQ7RV SnBVSjQ4KxWB1aPPBxsZEuDJq 7m4alhMplCCUrIAC8r6ccFIsw umMcVC4cem2sgWh0n3zrenZeO ULuFTIntBYIFVMxF0AhuFvhGy 1twPa0wYioBwnbQOO5Num8UO0 ioz77bqq1dTcjKAWhorqlKbO2 NLehMGUicqptPCl0PQaqOTMhf OJ1JGHqjVSnH9JjGFPwJS9pkl t6NVQ6IUnbWLFfXfE0URNwsBH uIMMokHcbSQjyy012UTE4PnVt LO8tE6Jte7F8uW6wtLWmRKCmt HVsWpGtACUdtd6hyBAnBAqga7 HvIXM8ivE4rQRcmUYvTIYbYL3 8Amcqp8EaKskvy6PrI42dlKZ9 AYjlx3vqXG7mNjB2qkDaKWhxc 6mfxJ4zZtR4MCufHJ5rID8oRB MmpN2okxpuDGGnEgButmriBLH piMaltfNeLd0epUkjNLY4WIna V2rjgN2nIkA9PSquR2getA2rK Ff2HFypdMV4DFQefM0oGN5zst cma0sxQQvzHTegDYWsahA3lgS 0EDLbuIBoM4AdzS7uCSTdHO1o nkypw9xfSHS8FUytJJUvPFU2Z bRhFQIot3Ciwkh0OhVgu2YtwQ VkMJgvM55pc734RMTdnjNmL1s wbGFpblxwbGFpblxmMFxmczI0 WDYgaaRzi0IxSCDsFTI4UGamD EfbqYQxCONekLhvp6jkF6KvlK FyXHBsYWluXGYxXGZzMjBcbGF uZzEwMzNcaGljaFxmMVxkYmNo CBVrLPctY2jkJfHvL3KqEJPoR iHzcTVeF9cgIBvtcuEdAUObem RgyLR9LCiyM8s3JIXzlpDkxCn 3xgByRqXkPXHfXPD7WYgcsEWm IUGir3ImicdtgJVcYt8moKUkY UTltT5uBELqIUHgMYzdVR9ipO q6ZAASrHHzkMZxXoCHGFAuFU7 5opCsJEYAhayip1A2ZBjdZKXs r0RibMZsR0iqs9QdHGXyd11kS B2hm2L4f4ndLGM6QU8pz2RpRP RvxOUyrXPeNWJhk2Wrfyxnh8S pXWCvayFsk4DnXXRpjuCbjQFz CZMmxbQzfc4yneEqPYGuFEZbW 1CeomwesJryevTqAEGqgr1ijy BnMZK1QVEPNMUmYTQgd5OokM0 rsDRQEXS5mZUwwx6sklESiIMl RXZjtv25NDCeIU5pA9ecVSZxR EHdayUegSFjt1VoIQNlrUU0hK JhIC8FLfRCe85xAVOxIKUUakF iIWBliLymdDB5jlB1nF8eVTrL REEpLlx+APPvFCFMYKYqPA6zr nHai0UdymSjvAwfUQSilLXoi1 PxtFCgj7FgaLmzq6DhoTGooHN nYA0qQEFmgrxhYKXwSBGAGwIT BZSkjuK6o0FbFQVlHPSkWPH3q Auxfjz2ZKOzgO4oTBFjT1sjhd zzSMdrYYQiz0TalV3xaPADcKV ne3VmvDGxnWCTdLQfBC3efmCz DCmVYIpHNJV4ppBwHELwy7WbJ AlwZ5vqM84rrCswlAn0tIR3ZN B9cF4nGsq+IFxwYXJccGFyIEF jaVHzrSSaHNSziRzzlxQoG0Ee ixGkgK9ypHAzfgRyJR9pZF5rC 7J1zCVzCVMnytVho7idFNmsib MiHtTgfoFwSJScGWvgRFElm2L iDCctENC7SRdsujJeppQhzKHw mgpaKSDIQMPVsNOwzRLlCSX4I QiasuPoaeQaJW8nqP3akRdpnS 8lyRAnnTZ5nrraPBZvXMRscZb vHTPvCB3zsUXgWGJthtOHkKxd cKNpzJ0iF7DsTNPkIRIxrk0hB USyyQ9aQBbzk5PtjgwsKEBcJQ YqAMFzmyBnnx0zPQXkmMRJWI2 IMJnfgPTll5IfxaCoL0yOGAG0 NUQwNjYwMjgxKSBleGNlcHQgY SQkjc48SVHgxD2irEbvEKVnoX 4ezY6duRyiyZ3kCbStWjKiUAm nVN3uCIFdC5sweKSuRVCiEVAq N3mwCqZfjD1tgOzvGWalYtZeN bGbETqdTYD1jN== Embedded Images (test code = [id number]) [facility] [id number] 16:43:01 Test Item Value Reference Range Interpretation Comments Case Report (test Surgical Pathology ? ? ? code = [id number]) ?Case: [id number] ? Authorizing Provider: ?Earnest Nunez MD ? ? ?Collected: ? 03/23/2022 0936 ?Ordering Location: ? ? GI Endoscopy OR Department Received: ?03/23/2022 1143 ?Pathologist: ? Luisana Willard MD PHD ?Specimen: ? ?STOMACH, 1. Antral erythermia biopsy, eval for H. Pylori and intestinal metaplasia ? Final Diagnosis i4lrtDXhJIZcn5vaWNBnqKGnK (test code = zEwMzNcZnRuYmpcdWMxIHtccn 6098902152) SzQCyxqPzySCQgPTOoLI8ddLf trPt3dGiyWCAkmvX6oIJkZOji j2srMHZ6x7lvueohMYCeODfvC v7dvNWvfJxfLnOtNVQzQIc1bV 93QKTwqQ4wwQDkJMd1SSLwxSM fdtYnSeUpQXFyqXEcwTP3ANPf XJ7pxhwoANltOWqxWRJolrF6P FCqkHFcA1WiSLUgCQ7ipvmkNW T8NRgrUOLeWRU4LuDqAXRec0A mjqp4NxZctFPcZAsleQNxbxfp tnTaJGVjhhPEQaZZTP6HWPQWH DFFYM9ID0stdVCaMZKzLW8dV8 OGEIYQAiUXSQUNQ1IhL8nCAND YJDHCRMpOUNDTPEVKOv1LRRSV WVxwYXIgICAgLSBOTyBJTlRFU 8URQsFGGY1DWQQMKEGIRCIrY0 VzQGcSEAxYN4aTLQvACO2IYLY YEZYisIXrDSSbBM3tAt6hDF3r OUjGL4BVEDwTX2FsM6EWJT5GR 52WVKhDWH4ZRRMHQBKgeHRsFL XkylIxmMBsJTfvjGylDNhce63 rcywgTUQgIDgvMTkvMjAyMiAg IUU6OuErNJ9kwBDmZJWfhqNze XSyxTtqbnXiFQzyy2BoA5AmZe AwMFxhbnNpXGRlZmxhbmcxMDM nZQF0ocTqCBNcKPazLZYrKLcu Yg6xaAIsgAcrEfEwPMLdl2wju nRIBOeoJtQuF871GHDqJBieo5 svb0VjVBJkaQTwu3K4SAKEycl rkNp1l7zkAkGfAgQ5lZDhYNhm R0xvnjGpgAVtR5PniTKllOq6p KnrN71gy0F0ChyqH5dtZBAiIH CgU5ScCF4zASSsNrc3COI9OTU 6WOSxKAGrQ4BiTI7lZZIpiYRg GYo7r0cljTvvNBDeJJW6w3teK WcnkjP2AM3rct4trGh8v6ghxo VkJXCjDYEtlEEQQZAzD3DfxCn qVe8uyNt4aAyhVpgmTGZ2Ayr2 WM5kwq18lbb6kQqmTZEtklrpO aX5WUaqUKSjuuigODx6RLelXG DydFH3LTAqpYAzJ5QqHBNfAU9 nmuc5MLC5YQwnNDUdQuD7JIZq iNUzKCHqxHbiXKdso172RWD1B fLfIG3rS9Tcy8E4rJ8huKXqEY FnmYWiWpWeOKGuuu7hhYTgXTq eu7UwWNX8juI7wPBaeFNrKJCd EQ05Ychir0NzFerrECQ1BWDcs uUqr2Gul1xiKpIkptYqL0awU1 YxAAJbPLWoXGNhMzHupcRsu6K ng5RhkMIbgYn0y1ymUKEhBHDe yBzhm8sbBYM3IIHhJ6K4mRRhz 9trAFccSOFluIW5fbS0LHMyxQ BdM7YuoQ1xICRzWE1bqeq7a2b hRNK3YBjyXUAoMfH3mlF3QMSx nJCpJDJtxNjiXUgha903WMO9Y qAkPKZge1RoZ7KouEyyN31yhJ bqX65rHQNzwSxakC4qlMsapX9 cZjBcZnMyNFxxbFxwbGFpblxm MVxmczIwXGxhbmcxMDMzXGhpY 7vcVvDsOGMtuHkmRDapl9OxQK YxXGNmMlxmczIwXHBhciBJIGh cgkNixUNxc13fIUislCReHNNz HJjyHLGcuQufd9OxW7qfFX6wU 2OxuFAdbnKgfnUnBYthIHCuu1 x9mDDefUrog8PhuTIpWH58weE fYDQbDAC0SDQox4hrBN24dqwn EeFtlQ05gwKxsvLlNQNwg0iwK 8grbWIlu0Zei7JammWzSSnws6 ZcNM3njLJvbepzgVW9IKMwfYE rboZvhzT3zEhpIUChhB1kcM1z nUaduJ8lMfPjBrSxIDpoWN9pJ KIlJ6orbSDnENQhSAXhG6asTg MmxZ6csYmuLwgzefI1QXXjmm7 9 Clinical Information Chris Joseph is a (test code = 61 year old female [id number]) Gastrointestinal hemorrhage, unspecified gastrointestinal hemorrhage type [K92.2]: 1. Antral erythermia biopsy, eval for H. Pylori and interstinal metaplasia Gross Description t4czeSSdKLEhnJWOVMNuGMYmZ (test code = R0pqAydjXb8zLjjIAGttrF1uK [id number]) BnFUmyi4heTOK8d0hbmyFZGvd hNYXoJIqcMQSoqojdAwS5UUwi GVDjsnxqHFv1EWkxZRVsiKM5S ERmxZFiT7SeDCUfSB0csel6YW C1LSawHLMgVsN4TGZkWoNnZet gGMg8UOOhfcE3Jnj6KRYzOYQw jLHvy6G0TOehidzmFFYrlJQnR 424LNqur8DokBYuOMrlpFKvNH JRNphiAnjlyRlhz7GcbEItZQc hWTPtFKMhLJkjpjnsBWz6WOGo LHronNXkCO0qrOuyZfujeTpgl 2VjdCBcXGlkIDUxMDAyIFxcZG SqVL1NWaLwLSDxXQp1KCiyPXd 5QXo6KC6KBiQtCCJtMHczOCq7 MrKwCJx9ICabPK8WSWS6RZI5F vN1BOHmOWTnGXFrGLe8ZUKnUR xmIEFyaWFsIFxcZnMgMTAgXFx roHUfYD5exToylUNhxepkykPe NJQKPOJIYBHIQOGrdYKaJW7AV EMhTHnpSLHfkOKKKMF9HB3pWB ANClxsdHJwYXJcbGluMFxyaW4 xHW1AKLg2sdDrGVNtJeFkB8Ew G1sxCZ3jIKYffnBgLZFwoPPuI XXpfvYyr4AdJHwmbgUgLSFokH VkIHdpdGggdGhlIHBhdGllbnQ vaoIvUO3sUACTRUCnzQ2oWKBc BgY8q45lZ6ixLKOduGXisWMqw mv2bMTgZLDlzP9cp1woXBV7LE grKd3dXWtsGTV9oS4nmWJstaH ygJ23PYO5fQ3tfYKpFLBndNzh t6ngSiOqagZbN89hg9wkfPEao 3KlNmO9RN5mlHynffFrmiYkX5 QmDEFqa01hpNB7kJQnoZWzCbK tU23azrQwBEkqQK8pgT0lDXAo z68oDT3zSFYjQFMhJZPwyMFjn pIdalHvjJIltXAmxT6qehUbc3 3cXQFgJTD8TNBwRIZ5XBDoSUK fxLQqgqSfR8ebBAvdtYLzGaOI rFGru8KjX6jmZC9sqYMmPirhl LIhZIUskBbap5LdqFVtOQBsp7 DqpEMcNDakIN9vOEE1Tm5jkOB oTHOldaU9u0MdMCnaOUHlLdst XDBcFWykxFZwIX8STAYkdRNAO Czzv5DzHIdtZHCiVXSIW1FpGX xaNJRyC97rk7XYj8QfQOVyn0i lkEzbn4NhtQZtUHuqCHDlpKWh QPumbL2lYdLuz8rviQd0WXqni xZ3JTYaks8hcUeezO8bNKrib6 hxEXE9FBXfqPZbwWBxAQksbTd dgH6rEoEyOuk9ZJzaLEMfP3Co L3JgqlT1IKMgSIuyYLJqMIZbA Qp9 Disclaimer (test g9cloKCyRAAfn3tlKVUdfZIdS code = [id number]) zEwMzNcZnRuYmpcdWMxIHtccn KiWZtds7RuR0UoTcJnDEimpwK fLJVsDdowjvmkOHPpTQM9hjCw HLYlLUzsKFRzUEmyQl5inQUgq OarOfXzARDni1bxdgLFNJsiMd UiS485IMOwHPiuj3sxd9XaTLX mnLVas4F7TYMHfobagWv7nVlw Y16ud0G0VdnwT5mvTQQnEXMoL 6CxVC3qMABfXzy6BRN9BRL8ER DsZPPdQ0WyCG1eIBTztTDmENo 2c9djlUtbJRPkPNJ1n8hmPSng miXhZW0thq6jyKx0l1yvnfWiL EGiEPYzaTNUKTJeO3VxnHsbMa 5maMp8pUibGootRVC7Snl4KV2 ckj84edo7kZhpDYLlbdunUqH9 ESwqIUIvfqqbSRm8DDhxNETkc RO6WWMmyGTfO3SsKHScUW5kpt m2BDV6MRisCFGkRgE5BOMpmDR iJCMnbPpeXSdnd055AGE7OzFf WA3wZ0Hlo1H1qD5vxFPiKBFel BEnEsMbTTEodt2mhVCcMVukv1 GyDKR9iaT2oGXusZVvCOXmQR9 4Tchcr6YjQfjwr1EgM20spTP7 BJvhp6vrQR3lGwW6xdDsDHzir 8zlzZ2lXrU8JMzsQH7sPU2iYO KokR2nekqiOHQsIvLixhnyCQV krCiwkxXoLr7xwXsyGZO9XWfn Q4ggwG8rDaV0FVxrO0xmfZ8gA Ns9QEqlyOH2EDCfnW8oUZ3bki mci2ucISqzVHetKXGqsgZ6umH 8NJNcwFPgR1AjnR6jWPKzGZ0x dhjuj5iqGSI1DVrhRMRsLDE3G aBiZDCev8Jzlrq2TlSza8MjyC LvEHjrA92wo140DTAdldRfT9m wbGFpblxwbGFpblxmMFxmczI0 JJOjhkVvx2ElAVBhRZR9YHkmL PmprXJjUFQhhZnij6uoT5HbbX FyXHBsYWluXGYxXGZzMjBcbGF uZzEwMzNcaGljaFxmMVxkYmNo GAJkEGcsR3eqLaDeB1DnSJEvG bFncPUgE7shIJwgbmElNZAkme NdbCX2YObeE5a0WCCqxkPqcSc 7poVoPrYmEPWxMEQ3DViglOBy EAXdu5ZhzrhrlFVpSt2cwCDyA HCzpF7dKPShXCKtOOxrKO8dvW f1JGOMdUYygPXfWoBJHNGbBD3 2taEbDDRVdvyqm7C0KUiyWYWs u3BirRJhR7ilv7JoQEZjv90zH H8na8W3q5jjMOF8WR2qu4NxIQ LkkXTlwQMnRELrn7Dwhlmkc4V zZQUdgjCzb8NoGHRskaFfjXYr KGUkugMlsq7waoPlRXZzFGKxI 6TngnpatEpjyiPfHMBugq2krn GyKVK2QCKGLVSlRIMnd9FvzI3 cgSOXNHT3lTSbxb0alkZRbMDb AWJzmg66QMHsVC6eF5xpXUGbY NRoydHolOPwg3ImXFWchGV8xP AzRJ4SSyPCk39dZIXoQGXFkkL rDGShjCehrHC3hqQ1lQ1fXSiP REEpLlx+VCEiVETDARDrES5ve mFlf3NuyiQzkTitJQPkuHVoh6 EwoFLtb2HrmDvgu4RhjQHlcAW zPR8oPEDfopvbOXZbLSBZCkAO EUZswpB0x6EhKQZnELPnMEA0w Kbjfss5GUQolQ7rRMUcO8qeyq mgRHtrHEHsw6KpdY8ouVRTzRC ml8NyhUNxrNHBzWQeUJ2mvwUu ONvXBBiKGNK1bwCfENEro7AeA NbmS0uuY73bzPnkbWq1nHS0FL O0cG3qFoe+IFxwYXJccGFyIEF yzVKbgGKeJIWmdJhdwyLiU2Am tiXffV0dsBXxonAwEV5mYT1nY 8H6vQUmTDHocnRar6dhBEyhoj YiLfCwxrYoDLBaOIuyBJCgu4K vVGrbNRF5HQhzgaTkifJvlGVc gjwjHHOQNFCUaVLzpQIqMJM3C JmiwbHocwIkRH8fpX0fyEkobB 7gkSJqrRX1yqjaHIRgDPIysMc tPLMsGZ1crXGdGWNjiuMMyUtz aOXfrT5oO7HlYMLrPMNuzv3iQ ZTtaV7fGJone8BmlrnsTTPwWN QhIAZrnpFvwh0aMMTtgKLXBZ5 QHKomxPJxi3AuloOoE3yEMLB3 NUQwNjYwMjgxKSBleGNlcHQgY BRcfj72EFLdaL3wrRbmWZRbhB 0puZ1vcIxpdV0vKnDcLwKvDVi gTD8vVWKxS0iykNTzIUQpKGSd H0nbOrVbtQ1prJdtHLguUrWdC iAeCVfiXHS5cD== Embedded Images (test code = [id number]) [facility] [id number] 16:43:01 Test Item Value Reference Range Interpretation Comments Case Report (test Surgical Pathology ? ? ? code = [id number]) ?Case: [id number] ? Authorizing Provider: ?Earnest Nunez MD ? ? ?Collected: ? 03/23/2022 0936 ?Ordering Location: ? ? GI Endoscopy OR Department Received: ?03/23/2022 1143 ?Pathologist: ? Luisana Willard MD PHD ?Specimen: ? ?STOMACH, 1. Antral erythermia biopsy, eval for H. Pylori and intestinal metaplasia ? Final Diagnosis b8wuaUDsBJJdl2ywRCKkzDObZ (test code = zEwMzNcZnRuYmpcdWMxIHtccn [id number]) DoFLpviNzuXLSvZWFjWB9pvMd yiNb4ySqjUMZwelU3kVWxMRie y8smUTI2j1nxzwrqSIPxBFtiX g5nfWFqhEhzYaRlDEPvLZu3kX 79IUEdcL6yxOYrDLk8BVNpvKP teiPiTdTqLUNeuAUtbPE8LTNc MZ0njhkhIUxeGPirWTEnqeE4Y JXhzHIhN6MeCKSsSU6nzxeuYK C9VQazRJVyFZN3ZnHwFAYpp6P itgx5WmCdxSHyBEavvCAykubd hiXrOMNxgpWHNeOUVR1JDKAGU AIHAT1QI2pfpLBvJXRaAI1cZ9 FCWQFAUmKJBPCJG3IbA7xLVIM QDEADUMvCCIARLEGZTx4DFSQW WVxwYXIgICAgLSBOTyBJTlRFU 1GNMvIKFR7XEYPCWCFXKUZxR7 IdYAsSWHqRP5bPDMzHVU6QBUD APMRytNSkYWVdDM6zRr2vLW4m ZVtQV4UAQCrNR1FaM8STZK5JG 76POPlHWM0RIBHUEZQkuJToWK ZvysWhfQFfCIdtkElcJKawo76 rcywgTUQgIDgvMTkvMjAyMiAg KPP1UoWcEE8ixUJwYJXewcOix XRvnMttivTxQGzac6RdS6FhHw AwMFxhbnNpXGRlZmxhbmcxMDM lRHR9aiKdNTJxKPtoGYFyIAtd Fo5nnDJkdLgxSxDqDQLau7pwa qAJGJjnNiGeO449SCCaMZgov2 yae7EvLWWtmHUfx2Y2DOVDqin dfSo8y0psCrCyVbV7uHWyXQzu L2bvbmZprDElK2AdcBNveZc9v XjxO18tc7C1EjdgK3alLZIdXJ GwH8KdQT5fVOLaOzq4WQN4ZOY 3TQIqAILuE5EhVE4hYMDuzETb FJj7i8vjiAryRWTtSPQ5u3gfY GvylsK5SQ5mac5peEu9d2fydz PzOBBfFFNfiRLQTARxG0WzsAe cZs8etNa8iSvuCgczIEL4Ith8 WB4lnh39tzg8aQmfYHIztriqE yC6PMegORPdxnjjUJp0IPigFJ CpyCQ1JFSuePPvD7KqSGPtCZ1 kdoj7WCY7RLdiXCZiBtL8JYBp bQIyDXQhvDvaRJyck427DNY8F wMrRU6mU0Eje6T1lZ0iaPQbQQ QchKVyCdOhOLFyiy0ruQWyPVy nt7NdUDE6ojT7zPSrqVRoEZNq OX29Lsgxg8DqUkjwXRC2OZXee jXmy2Ubr7qjUmDbkhFnB9xrY6 BmYHHyUZQwZDStOyUsveJha5C oe3ZbnLKajUg8z8aaTRTfEWDn yHjxl3ohUMH9CNRmL9V2pNOta 6lfIApcVSOdxCQ4lwK6YIEhoQ LqA1BagC2cXYGeEX6fegs1f2j aGBH7PAgaKDZpOlY8wdT7HRFi gZHtBRSvoUmeOEvnr689ELJ2H tZfHGUpf5PeE2PurXpmA85zwD itH07bDRSinXlqbR9mkLzjvS9 cZjBcZnMyNFxxbFxwbGFpblxm MVxmczIwXGxhbmcxMDMzXGhpY 5lrCtFjRGRmzQbsLKlax9CpGU YxXGNmMlxmczIwXHBhciBJIGh ibcOdaKKlo03yLQixmEQhNZZf WDagMLNmjFctp5KhU5vrVW3uM 8NdnSZabuNtwtCmQKsnITIqs1 r6lGCtxUuxd5MdzUHpAN41eeR aITAeIVL7PDEly4jmCA99wsgd McIvbC12rxVwrpZiVLYtc2avO 4ztxHZce8Aso6WklsPcVKrbm1 EvQU1yvFXlvmdcbDC3LZJfeZY lieReiaN8sEggYQGlqE3cpM0j rBltvY6lRdHyZyQbLIbiSL7nW JDmY3fcuRZhQKLlAVHyB7pjWi PbfS8xjLtpIhzekyL4BWDmie5 9 Clinical Information Chris Joseph is a (test code = 61 year old female [id number]) Gastrointestinal hemorrhage, unspecified gastrointestinal hemorrhage type [K92.2]: 1. Antral erythermia biopsy, eval for H. Pylori and interstinal metaplasia Gross Description x4oqsOHiVIHkrSZJMYWjWZNfQ (test code = G3ucUzorPu0iRqcDXYwndW4qM [id number]) TtZZqao4glDYY4p6swmyJVBmo sUCHbRUpbISDpyxzzSaF9QEsp EDOqyqwoNMd8QBwiXPGogUC3O TCayONlE5PgPPOvXG3kqgx1EN N1AMkoUHNeGqG9SGWxMsZlFmq fVQe7NWAfzyL0Giu0KFNhOIRm nJKzl8X3LXomnmfpCLZftTWkF 673DPcvi7KrmKKtKJzrnISfAE TEShmoLhzlhBjsx3RaaUNhCZw wZBOvYHTiWKldfykdJOv9SILp OXlzdARbNZ7chYczZahcePzwu 2VjdCBcXGlkIDUxMDAyIFxcZG TjLX0GPwSpXHZlTIw8VAatKRy 5CBn6CW2NLgXgWKCnXYmeZPd0 ZaXfCKn3BMisHE0CYFU6QAZ8C dD3OKBxXTLlKNXkXKf0XIGxFD xmIEFyaWFsIFxcZnMgMTAgXFx ybHDiAS1zqHgsvZOqorozmeQp GLXMLKCWLSQZSDRjwYIsNV4OK FLmJTisNMNljQLMMVQ9XP7sSJ ANClxsdHJwYXJcbGluMFxyaW4 bRT5BAZs8lcKbDCFqSgOzL2Tt J7haUD4eVZFmfdRaXGOleKFwQ YCrinVfd7RsTUsmymByGRVkoB VkIHdpdGggdGhlIHBhdGllbnQ emtZiNG6fGHDXTOWrdR3iVPCg EaC2s93oW1dwIIBguRRbfCLsi ph7cIXrAURahP9uw8qxILX9HM dcGa6dOEpyQAY7hG0iqOGuxrR piB54EQI1mN1edTTvPTPqgGop d3niOkKspjOfC39oi1clbFYto 0EdFwR8DO4dvYcgupGiqyZlG3 QmZEFwm46kjDE5eSHrxEZlXaM nR28hyiAhBKvaDO7ayH8eUSKo t82jXH1kCQAcIESeVJUoeHSzs vPopjTyaHPawLUowV4rhqZep3 9bPPOxOML9XKZjSZJ0NYSrUKC mxEDedpCuO4ofASdhhPLoHmOJ dKOum1EdT4myGH7myGVsJvrsy MYxYBXnbYjjy0CcpRRuRLYve7 LfoAVjGAbbHO5dWVK3Qx7jsRL tLNPdzcT0p9OoBQszRNPtYlyw NQGxRQwinRPtMR5WTUFaxUKJT Eapb7NpHWqsEENrWVQNF7UtNR gvCDKaQ46tn6RYd5JlFLFje1e owOruk1ZmpRYhFEleSTLnrXVx NRochJ4xUyNvm4pieTc4DUfrd zH5PYTaib9daPbgoN6uRRtuh6 jiBFQ0CFHvcOKtsGWcHVtzoXe bhL0gBbBgXwr0YWodZVEjW1Tx T7BtyvZ1NOLyUHzwTPThFSLdY Qp9 Disclaimer (test p9bgyQYnCBVds1kvYOIqqMVxF code = [id number]) zEwMzNcZnRuYmpcdWMxIHtccn XgBGcml1YbQ8AvPzWhJHlqreK tGMHeIfwfwwumTYQaXDX2lxKy TCIxVZmyKZWzHWfsNw6duSFdk CqmAiOtZAJzn2exokFQSIgiEp JjL907DCHkTJmpp8lui3GpPYK veGYaz2A6ZSSZspguySq5oPkc W10us6S4YkmcE0khMVVjZATuB 4TuJP9eAHAsLhx5RDN4NNT1GK VhGJGlA7CwAI8qGOCpsTSsMCz 9s4ghgZfcJEFuMQH7b1qsPKqm bnOtXT5cbf9skVh8z8svyuAwQ SEeJNIqxBHTHUKkH8HxwOleAj 3ygRx9zLhvMmvnVQU8Qnr8HW5 fgl80nkr7zAypOGTrnzumIeT3 ICcfBYWjqzoiKYf3JIuqRHAkz AW5NXHxeQMyQ6FoOKDvTX4tao v4PTK2OAcbBBHfVvX2SIFlmQO xVCZhtQjmCEcgq276PCN1QoEy IM3qV2Clv1G5lQ8xgHMoIRDmz WQdFeYqYINhpe7njTDcGNymc0 FuDQK3pbR7zQPgkBDyLNCzMY9 0Scgnw3MpGkknh0GyU55lsCP2 JKqrn4woLH9eThZ2apTrZUpot 7hkaQ3bQkC6MSfmJE5fKF0eVE OyxC3cvqslDPSsNxBbbekvCFC ofQtflrNlXb0koVeyOKY1IBif S9aygJ3xEtS8RUydZ3ewjD7dQ Xh9JXrbyRL9NKGgiA3oNJ1apm udi1ufBRadTWyqSVAwtqE7apS 3WGLxdJWxW3RveD2uRGJwME9c owzhq9lsBGY3WPtlZUUcNYY0V tToJJRvv1Sfxjk0ToBbq7IyzG MiZAtxM90es147JGVbehHnI3c wbGFpblxwbGFpblxmMFxmczI0 PSZlivWjm7NkDOIlOAG7THmcH KcijAMuSHLuaOjgf2tnF4UheM FyXHBsYWluXGYxXGZzMjBcbGF uZzEwMzNcaGljaFxmMVxkYmNo CYSvJArmG1asPoRjA6SiPEMbP eBceBAeF4ntDIhpgfKbOHEbob NxaSH7TFehG0c2MJIzrnJbhDu 8jyErCoDxXFAcTVS1UCmutMXo FAWub8MjsgrfdCWzZg7bqYMvD NTalU6cTEIqSVCgPLpqOS6toX w2TXREtZFmiODaZfZOZTObPI9 8mwDaEEUUszzsx1C8JMuxFPAn g1FxcAYaM6fuj7LnIGTse02iD N8yj6O3k4csQDN0PP3jo7IqXW VpnNHizQIwBAXjt4Cbyldyk9Z oFFFandEae6WbPTRcggIwoZQq CJAyiiPqbm3dqxFrJZWpAPPpN 1ZzlcjckImmjsFpDVUjgg8fcv UiXQQ6VDEASEWzFSReb0OgbU7 aiBRNQPF9nSIwyo1xvrNMeJEs ORJqzx63PYSxZX9xY8ydUGLkO SHncpPazTXet5CfMQUogKZ0gH PlSS0UMmHTf06pXFUqPRNKpxO fERIetYeqmXI8piH1hC8hKRuD REEpLlx+FHLrCOVDCVGlKP6mj jFts0ZctvDihYpjGBTovESln2 VuwXJbf5KsnDsae2PczLKkrJB yXW6iBVEtmxjqNZQoWFLFAvTH XZCvbuN1f1ZmMMEfNNMmOPR2t Zamrtr9HYGylJ4oNAVsQ8lzzn ehAXelNDQfh0QatV0ypJOCdLB yj9MjkNMmsZAMtYJeYD4gvbSt TUfLRIqKQHH0gjSaDCUnd2ZzF OpaF6gfJ91xiWftxSj4qNJ1RF L5uZ7mEhc+IFxwYXJccGFyIEF yjRDfmQPtRFXltSadqtBnX1Ix rcRmpY8kmTPdxkYjTX6hSD4eB 8H9jXNaPHZbocUca2hoFCqexs RxVeJdkuEtRRBeGOitPBZip3T xVMjfDDW1UAidbiYxgiVpoFAw qxieTJWFZUCUeRGxdNDhPYO8G EdlciCzumRbCE0gnE2ltYmskX 5zgOFhlGV3ohdqAONgLWRbqGh yXFEaRT6tgMRcQKYuiqHAyIld vILplD2cW4ObOQBpMZRqak4wA JCcmF9kVGdvw3IxrfwsXUUvQJ KvRDQxarNeiw7qORVodGIDYC2 AEUpflCZqe4JmycGeT4uVUYX4 NUQwNjYwMjgxKSBleGNlcHQgY CKxmn13AFRcoU4jfSsjAUSldP 1nzG6pxDvmwD5lVpTkGgWnNKl zGW3oNLScN2qalQClWNVaOVXm X8msRqCqlI9jbZpbNUxwTlOaU aSyXMuqDKC2dR== Embedded Images (test code = [id number]) [facility] GLUCOSE (AUTOMATED)2022-03-24 13:31:30 Test Item Value Reference Range Interpretation Comments POCT GLU (test code = 9638270831) 102 mg/dL 70-110 Lab Interpretation (test code = Normal 48848-7) [facility]31:30 Test Item Value Reference Range Interpretation Comments POCT GLU (test code = 6907304228) 102 mg/dL 70-110 Lab Interpretation (test code = Normal 81399-3) [facility] GLUCOSE (AUTOMATED)2022-03-24 13:31:30 Test Item Value Reference Range Interpretation Comments POCT GLU (test code = 4713000610) 102 mg/dL 70-110 Lab Interpretation (test code = Normal 28432-0) [facility] GLUCOSE (AUTOMATED)2022-03-24 04:05:12 Test Item Value Reference Range Interpretation Comments POCT GLU (test code = 6027297072) 89 mg/dL 70-110 Lab Interpretation (test code = Normal 26306-3) [facility] GLUCOSE (AUTOMATED)2022-03-24 04:05:12 Test Item Value Reference Range Interpretation Comments POCT GLU (test code = 7710704101) 89 mg/dL 70-110 Lab Interpretation (test code = Normal 15668-9) [facility] GLUCOSE (AUTOMATED)2022-03-24 04:05:12 Test Item Value Reference Range Interpretation Comments POCT GLU (test code = 8739221552) 89 mg/dL 70-110 Lab Interpretation (test code = Normal 45159-3) [facility] GLUCOSE (AUTOMATED)2022-03-24 01:56:37 Test Item Value Reference Range Interpretation Comments POCT GLU (test code = 3493278884) 64 mg/dL 70-110 L Lab Interpretation (test code = Abnormal 30970-4) [facility] 01:56:37 Test Item Value Reference Range Interpretation Comments POCT GLU (test code = 8081523670) 64 mg/dL 70-110 L Lab Interpretation (test code = Abnormal 53509-0) [facility] GLUCOSE (AUTOMATED)2022-03-24 01:56:37 Test Item Value Reference Range Interpretation Comments POCT GLU (test code = 4587011597) 64 mg/dL 70-110 L Lab Interpretation (test code = Abnormal 81154-1) [facility] 22:07:11 Test Item Value Reference Range Interpretation Comments POCT GLU (test code = 5789351342) 142 mg/dL 70-110 H Lab Interpretation (test code = Abnormal 09870-9) [facility] GLUCOSE (AUTOMATED)2022-03-23 22:07:11 Test Item Value Reference Range Interpretation Comments POCT GLU (test code = 1106817011) 142 mg/dL 70-110 H Lab Interpretation (test code = Abnormal 70557-0) [facility] GLUCOSE (AUTOMATED)2022-03-23 22:07:11 Test Item Value Reference Range Interpretation Comments POCT GLU (test code = 9158172136) 142 mg/dL 70-110 H Lab Interpretation (test code = Abnormal 56871-7) [facility] GLUCOSE (AUTOMATED)2022-03-23 12:57:32 Test Item Value Reference Range Interpretation Comments POCT GLU (test code = 1120337922) 97 mg/dL 70-110 Lab Interpretation (test code = Normal 35137-7) [facility] GLUCOSE (AUTOMATED)2022-03-23 12:57:32 Test Item Value Reference Range Interpretation Comments POCT GLU (test code = 0781930506) 97 mg/dL 70-110 Lab Interpretation (test code = Normal 49599-7) [facility] GLUCOSE (AUTOMATED)2022-03-23 12:57:32 Test Item Value Reference Range Interpretation Comments POCT GLU (test code = 0027930154) 97 mg/dL 70-110 Lab Interpretation (test code = Normal 68627-4) [facility] GLUCOSE (AUTOMATED)2022-03-23 02:07:44 Test Item Value Reference Range Interpretation Comments POCT GLU (test code = 9212631694) 164 mg/dL 70-110 H Lab Interpretation (test code = Abnormal 08142-6) [facility] GLUCOSE (AUTOMATED)2022-03-23 02:07:44 Test Item Value Reference Range Interpretation Comments POCT GLU (test code = 4085481347) 164 mg/dL 70-110 H Lab Interpretation (test code = Abnormal 23899-3) [facility] GLUCOSE (AUTOMATED)2022-03-23 02:07:44 Test Item Value Reference Range Interpretation Comments POCT GLU (test code = 0109375943) 164 mg/dL 70-110 H Lab Interpretation (test code = Abnormal 17208-4) [facility] GLUCOSE (AUTOMATED)2022-03-23 01:29:25 Test Item Value Reference Range Interpretation Comments POCT GLU (test code = 1410616684) 64 mg/dL 70-110 L Lab Interpretation (test code = Abnormal 77732-7) [facility] GLUCOSE (AUTOMATED)2022-03-23 01:29:25 Test Item Value Reference Range Interpretation Comments POCT GLU (test code = 7422710438) 64 mg/dL 70-110 L Lab Interpretation (test code = Abnormal 14374-8) [facility] GLUCOSE (AUTOMATED)2022-03-23 01:29:25 Test Item Value Reference Range Interpretation Comments POCT GLU (test code = 3042620277) 64 mg/dL 70-110 L Lab Interpretation (test code = Abnormal 98252-1) [facility] GLUCOSE (AUTOMATED)2022-03-22 22:10:52 Test Item Value Reference Range Interpretation Comments POCT GLU (test code = 8587882131) 263 mg/dL 70-110 H Lab Interpretation (test code = Abnormal 61209-7) [facility] GLUCOSE (AUTOMATED)2022-03-22 22:10:52 Test Item Value Reference Range Interpretation Comments POCT GLU (test code = 5105100554) 263 mg/dL 70-110 H Lab Interpretation (test code = Abnormal 18490-4) [facility] GLUCOSE (AUTOMATED)2022-03-22 22:10:52 Test Item Value Reference Range Interpretation Comments POCT GLU (test code = 5773754551) 263 mg/dL 70-110 H Lab Interpretation (test code = Abnormal 56394-6) [facility] [id number] 21:13:40 Test Item Value Reference Range Interpretation Comments ABO & RH (test code A POSITIVE Performe d at [facility] = 20) Laboratory [facility] [address]Xkex Free: [phone] A No. [id number] IAT (test code = Negative Performed a t [facility] 1185) Laboratory [facility] [place] [address] s [address]Czln Free: [phone] A No. [id number] [facility] [id number] 21:13:40 Test Item Value Reference Range Interpretation Comments ABO & RH (test code A POSITIVE Performe d at [facility] = 20) Laboratory [facility] Blood [facility] [address] [place] [address] s [id number] Free: [phone] A No. [id number] IAT (test code = Negative Performed a t [facility] 1185) Laboratory [facility] Blood [address] s [address]Sroj Free: [phone] A No. [id number] [facility] [id number] 21:13:40 Test Item Value Reference Range Interpretation Comments ABO & RH (test code A POSITIVE Performe d at [facility] = 20) Laboratory [facility] Blood [address] s [address]Nfij Free: [phone] A No. [id number] IAT (test code = Negative Performed a t [facility] 1185) Laboratory [facility] Blood [address] s [address]Ulrx Free: [phone] A No. [id number] [facility] [id number] 15:23:00 Test Item Value Reference Range Interpretation Comments ATYPICAL pANCA (test <1:20 titer See_Comment The aty pical pANCA code = ANCACOM) pattern has been observed in asignificant percentage of p atients with ulcerative colitis,primary sclerosing chol angitis and autoimmune hepatitis. ASCA+/PANCA- Suggestive of C rohn's disease ASCA-/P ANCA+ Suggestive of Ulcerative colitisPerforme d At: [facility] [id number] ra Kevin LEMUS Ph:[phone] [Automated mess age] The system [employer] generated this result transmitted ref erence range: [...] 24.9 code = ASCAGG) Positive >or= 25.0 [id number] 11:15:00 Test Item Value Reference Range Interpretation Comments GLUBED (test 95 mg/dL 70-105 N Intravenous adm inistration of code = GLUBED) N-acetylcyste ine which resultsin blood concentrations >5 mg/dL will cause overestim ationof blood glucose results . Do not use during intraven ousinfusion of N'acetylcystein e. BASIC METABOLIC [id number] 08:19:00 Test Item Value Reference Range Interpretation [...] mg/dL 8.5-10.1 L = CA) CBC W/AUTO [id number] 08:10:00 Test Item Value Reference Range Interpretation [...] = BA#) 0.03 10 3/uL 0.0-0.1 N [id number] 06:06:00 Test Item Value Reference Range Interpretation Comments GLUBED (test 114 mg/dL 70-105 H Intravenous adm inistration code = GLUBED) of N-acetylcy steine which resultsin blood concentrations >5 mg/dL will cause overestim ationof blood glucose results . Do not use during intraven ousinfusion of N'acetylcyst eine. HGBA1C - GLYCOSYLATED [id number] 03:08:00 Test Item Value Reference Range Interpretation Comments GLYCOSYLATED HEMOGLOBIN 5.2 % 4.8-5.6 Pre diabetes: 5.7 - (HA1C) (test code = 6.4 Diab etes: >6.4 GLYHGB) Glycemic contro l for adults with jose betes: <7.0Performed A t: HD [facility] [address] [id number] monae Neely MD Ph:[phone] [id number] 23:20:00 Test Item Value Reference Range Interpretation Comments GLUBED (test 121 mg/dL 70-105 H Intravenous adm inistration code = GLUBED) of N-acetylcy steine which resultsin blood concentrations >5 mg/dL will cause overestim ationof blood glucose results . Do not use during intraven ousinfusion of N'acetylcyst eine. [id number] 16:38:00 Test Item Value Reference Range Interpretation Comments GLUBED (test 84 mg/dL 70-105 N Intravenous adm inistration of code = GLUBED) N-acetylcyste ine which resultsin blood concentrations >5 mg/dL will cause overestim ationof blood glucose results . Do not use during intraven ousinfusion of N'acetylcystein e. HGB [id number] 16:14:00 Test Item Value Reference Range Interpretation Comments HEMOGLOBIN (test code = HGB) 9.1 g/dL 12.0-16.0 L HEMATOCRIT (test code = HCT) 28.9 % 37.0-55.0 L - CT ABD PELVIS W/O [id number] 13:47:00 [facility] : 1960 Sex: FPatient Name: CHRIS JOSEPH Unit No: [id number] EXAMS: CPT CODE: [id number] CT ABD PELVIS W/O CONT 93942 EXAM: CT ABDOMEN AND PELVIS WITHOUT CONTRAST [...] [facility] [place] Phys: Monie Rubio L [employer] [address] : 1960 Age: 61 Sex: [place] [id number] Loc: NC.6204 1 Exam Date: 10/16/2021 Status: ADM IN PH: FAX: PAGE 1 Signed Report (CONTINUED) Patient Name: CHRIS JOSEPH Unit No: [id number] EXAMS: CPT CODE: [id number] CT ABD PELVIS W/O CONT 93260 (Continued) No acute abdominalor pelvic abnormalities. at 1347 Reported and signed by: Justa Winston M.D. CC: Self Referred; Stanley Lobo MD; Monie Nash NP Technologist: Aura Pérez; Chey Blas CTDI: 20.53 DLP: 1225.6 Trscr Dt/Tm: 10/17/2021 (1347) by:Jose REB14 Electronic Signature Date/Time: 10/17/2021 (1347)Orig Print D/T: S: 10/17/2021 (1350) Name: CHRIS JOSEPH [facility] [place] Phys: CB Nash,Monie L [employer] [address] : 1960 Age: 61 Sex: [place] [id number] Loc: NC.6204 1 Exam Date: 10/16/2021 Status: ADM IN PH: FAX: PAGE 2 Signed ReportCOMPREHENSIVE METABOLIC [id number] 08:59:00 Test Item Value Reference Range Interpretation [...] code = ALKP) FE W/TOTAL IRON BINDING [id number] 08:59:00 Test Item Value Reference Range Interpretation Comments IRON (test code = IRON) 124 ug/dL 50-175 N TOTAL IRON BINDING CAPACITY (test 307 ug/dL 260-445 N code = TIBC) IRON SATURATION (test code = FESAT) 40 % 11-46 N VITAMIN [id number] 08:59:00 Test Item Value Reference Range Interpretation Comments VITAMIN B12 (test code = VITB12) 352 pg/mL 254-1320 N FOLIC [id number] 08:59:00 Test Item Value Reference Range Interpretation Comments FOLIC ACID (test code = FOL) 35.90 ng/ml 3.10-17.50 H TSH REFLEX TO [id number] 08:59:00 Test Item Value Reference Range Interpretation Comments TSH REFLEX TO FT4 (test code = 3.36 mIU/mL 0.36-3.74 N TSHREFLEX) [id number] 08:59:00 Test Item Value Reference Range Interpretation Comments FERRITIN (test code = BURKE) 132 ng/mL 8-388 N PROTHROMBIN [id number] 08:20:00 Test Item Value Reference Range Interpretation [...] and/or recurren t systemicemboliz ation. CBC W/AUTO [id number] 08:11:00 Test Item Value Reference Range Interpretation [...] = BA#) 0.05 10 3/uL 0.0-0.1 N [id number] 07:33:00 Test Item Value Reference Range Interpretation Comments GLUBED (test 96 mg/dL 70-105 N Intravenous adm inistration of code = GLUBED) N-acetylcyste ine which resultsin blood concentrations >5 mg/dL will cause overestim ationof blood glucose results . Do not use during intraven ousinfusion of N'acetylcystein e. COVID 19 INHOUSE [id number] 04:58:00 Test Item Value Reference Range Interpretation Comments COVID 19 INHOUSE NEGATIVE Negative Negative re sults do not AG (test code = preclude 201 9-nCoV infection [id number]) andshould not b e used as the sole basis for treatment or otherpatient ma nagement decisions. Nega tive results must becombined with clinical observ ations, patient history , andepidemiologi gregg information. [id number] 04:23:00 Test Item Value Reference Range Interpretation Comments GLUBED (test 79 mg/dL 70-105 N Intravenous adm inistration of code = GLUBED) N-acetylcyste ine which resultsin blood concentrations >5 mg/dL will cause overestim ationof blood glucose results . Do not use during intraven ousinfusion of N'acetylcystein e. [id number] 20:25:00 Test Item Value Reference Range Interpretation Comments GLUBED (test 105 mg/dL 70-105 N Intravenous adm inistration code = GLUBED) of N-acetylcy steine which resultsin blood concentrations >5 mg/dL will cause overestim ationof blood glucose results . Do not use during intraven ousinfusion of N'acetylcyst eine. [id number] 18:16:00 Test Item Value Reference Range Interpretation [...] LDLC) 28 mg/dL 0-100 N BASIC METABOLIC [id number] 15:24:00 Test Item Value Reference Range Interpretation [...] mg/dL 8.5-10.1 L = CA) LIVER FUNCTION [id number] 15:24:00 Test Item Value Reference Range Interpretation [...] 45-117 N PHOSPHATASE (test code = ALKP) [id number] 15:24:00 Test Item Value Reference Range Interpretation Comments LIPASE (test code = LIP) 108 U/L 73-393 N PROTHROMBIN [id number] 15:18:00 Test Item Value Reference Range Interpretation [...] and/or recurren t systemicemboliz ation. CBC W/O [id number] 15:06:00 Test Item Value Reference Range Interpretation [...] = PLT) 176 10 3/uL 150-400 N DEXA, BONE DENSITY AXIAL SKELEDEXA, BONE DENSITY AXIAL SKELEWrist Right 3 View Wrist Right 3 View
[2023-06-23] MEDS ORDERED: DOXYCYCLINE 100 MG CAP PO ONE (20:10)
[2023-06-23 20:33] LABS: Absolute Lymphocytes (CBC) 1.2 K/uL (0.7-4.9); Hematocrit 30.2 % (36.0-45.0); Lymphocytes % 16.6 % (15.3-44.8); MCV 99.9 fL (80-100); MPV 8.4 fL (7.6-11.3); Platelets 221 thou/uL (152-406); RBC Red Blood Cell Count 3.02 M/uL (3.86-4.86)
[2023-06-23] MEDS ORDERED: NA CHLORIDE 0.9% 1,000 ML ONE (20:40)
[2023-06-23] MEDS ORDERED: LORazepam 2 MG/ML VIAL ONE (20:40)
[2023-06-23 21:41] LABS: Albumin 3.1 g/dL (3.4-5.0); Bilirubin Total 0.2 mg/dL (0.2-1.0); Potassium 4.1 mEq/L (3.5-5.1); Protein, Total 6.7 g/dL (6.4-8.2)
--- NOTE | 2023-06-23 21:45 | EDPHYS ---
Physician Documentation [facility] Name: Radha Santos Age: 62 yrs Sex: Female : 1960 Arrival Date: 06/23/2023 Time: 19:08 Bed 20 Private MD: ED Physician Gualberto Barron HPI: 06/23 19:26 This 62 yrs old Female presents to ER via Unassigned with complaints of Abscess. ec2 19:26 Patient arrives today for evaluation of a possible abscess. States that she had ec2 noted a boil in the area and was uncomfortable and subsequently lanced at home. States that she is here today because she had significant amount of bleeding. Patient reports no fevers or chills, no nausea or vomiting, denies abdominal pain.. Historical: - Allergies: 19:27 miconazole; me1 19:27 skin cleanser combination no.17; me1 - PMHx: 19:27 Anemia; Anxiety; Arthritis; Asthma; Back pain; Bipolar disorder; Bladder problem; CVA; me1 depressive disorder; GERD; GI Bleed; hemorrhoids; hiatal hernia; Hypertensive disorder; Migraine; peptic ulcer disease; hyperthyroidism; - PSHx: 19:27 Bladder; Cholecystectomy; knee; wrist; section; surgery on nerve in right arm me1 ( section); - Immunization history:: Adult Immunizations up to date. - Social history:: Smoking status: Patient denies any tobacco usage or history of. ROS: 19:26 Constitutional: as per hpi ec2 Exam: 19:26 Constitutional: GEN: NAD Head: atraumatic Eyes: EOMI Ears: External ears are ec2 normal. CV: regular rate LUNGS: no respiratory distress ABD: non-distended SKIN: no evidence of rashes MSK: no evidence of trauma NEURO: moves all extremities equally 20:01 Constitutional: exam performed under nurse supervision, left-sided labial abscess, ec2 no Bartholin gland abscess. Vital Signs: 19:27 BP 157 / 87; Pulse 122; Resp 18; Temp 98; Pulse Ox 99% on R/A; me1 19:48 BP 161 / 87; Pulse 120; Resp 16; Pulse Ox 98% on R/A; me1 20:30 BP 153 / 83; Pulse 116; Resp 18; Pulse Ox 97% on R/A; me1 21:15 BP 128 / 74; Pulse 103; Resp 17; Pulse Ox 96% on R/A; me1 21:52 BP 122 / 61; Pulse 103; Resp 17; Pulse Ox 100% on R/A; me1 Procedures: 20:01 I \T\ D: Incision and drainage was performed for an abscess of the left Prepped with ec2 Anesthetized with nothing. Incised with #11 blade. Drained moderate amount the patient tolerated the procedure well. MDM: 19:19 Patient medically screened. ec2 20:01 ED course: Patient arrives today for evaluation of labial abscess to the left labia. ec2 Examination remarkable for findings as noted above. I performed an I\T\D with improvement in symptoms. I gave the patient dose of doxycycline. Patient is markedly anxious on examination which I suspect is contributing to her tachycardia, I will obtain lab work to evaluate for organ dysfunction as well. . 21:44 Data reviewed: vital signs. ED course: Metabolic profile with appropriate electrolytes, ec2 slightly diminished renal function, CBC that shows reassuring blood counts, no evidence of leukocytosis. On reassessment patient is well-appearing, nontoxic and in no acute distress. Patient does have improving tachycardia after the Ativan and crystalloid. Patient otherwise does not have complaints of systemic symptoms, will treat for abscess/cellulitis and have her follow with her primary care doctor. Return precautions given. . 06/23 20:00 Order name: CBC with Diff; Complete Time: 21:31 ec2 06/23 20:00 Order name: CMP; Complete Time: 21:43 ec2 06/23 20:44 Order name: Labs - recollect needed: green top; Complete Time: 20:59 mc5 Administered Medications: 19:58 Drug: Doxycycline PO 100 mg PO once Route: PO; me1 20:35 Follow up: Response: No adverse reaction me1 20:34 Drug: NS 0.9% IV 1000 ml IV at 1 bolus Per protocol; 1000 mL bolus Route: IV; Rate: 1 me1 bolus; Site: left hand; 22:02 Follow up: IV Status: Completed infusion me1 20:35 Drug: Ativan IVP 1 mg IVP once Route: IVP; Site: left hand; me1 21:24 Follow up: Response: No adverse reaction; Anxiety decreased me1 Disposition Summary: 06/23/23 21:45 Discharge Ordered Notes: Location: Home ec2 Condition: Stable ec2 Diagnosis - Cellulitis of groin ec2 - Abscess of vulva ec2 Discharge Instructions: - Discharge Summary Sheet ec2 - Skin Abscess ec2 - Cellulitis, Adult ec2 Forms: - Medication Reconciliation Form ec2 - Thank You Letter ec2 - Antibiotic Education ec2 - Prescription Opioid Use ec2 - Patient Portal Instructions ec2 - Leadership Thank You Letter ec2 Prescriptions: - Doxycycline Hyclate 100 mg Oral tablet - take 1 tablet ORAL route every 12 hours; 14 tablet; Refills: 0, Product ec2 Selection Permitted Signatures: Dispatcher [employer] Marsha Crum RN RN nh1 Urszula Duarte 5 Gualberto Barron MD MD ec2
--- NOTE | 2023-06-23 21:45 | ER ---
Nurse's Notes [facility] Name: Radha Santos Age: 62 yrs Sex: Female : 1960 Arrival Date: 06/23/2023 Time: 19:08 Bed 20 Private MD: Diagnosis: Cellulitis of groin;Abscess of vulva Presentation: 06/23 19:21 Chief complaint: EMS states: toned out for bleeding concern. Patient had a labial me1 abscess that she opened up herself earlier today with a knife and it kept bleeding so patient called EMS. Coronavirus screen: Vaccine status: Patient reports receiving the 2nd dose of the covid vaccine. Ebola Screen: No symptoms or risks identified at this time. Initial Sepsis Screen: Does the patient meet any 2 criteria? No. Patient's initial sepsis screen is negative. Does the patient have a suspected source of infection? No. Patient's initial sepsis screen is negative. Risk Assessment: Do you want to hurt yourself or someone else? Patient reports no desire to harm self or others. Onset of symptoms is unknown. 19:21 Method Of Arrival: EMS [facility] 19:21 Acuity: SAURAV 4 me1 Triage Assessment: 19:27 General: Appears uncomfortable, well groomed, well developed, well nourished, Behavior me1 is calm, cooperative, appropriate for age. Pain: Complains of pain in right labia Pain does not radiate. Pain currently is 4 out of 10 on a pain scale. Quality of pain is described as pressure, stinging, Pain began gradually, 2-3 days ago. Is continuous. Neuro: Level of Consciousness is awake, alert, obeys commands, Oriented to person, place, time, situation, Appropriate for age. Cardiovascular: Capillary refill < 3 seconds Patient's skin is warm and dry. Respiratory: Airway is patent Respiratory effort is even, unlabored, Respiratory pattern is regular, symmetrical. Derm: Abscess located on right labia Reports abscess has been present for a few days and the pressure was too much too handle so she opened it up with a knife earlier today then became concerned because it wouldn't stop bleeding. Historical: - Allergies: 19:27 miconazole; me1 19:27 skin cleanser combination no.17; me1 - PMHx: 19:27 Anemia; Anxiety; Arthritis; Asthma; Back pain; Bipolar disorder; Bladder problem; CVA; me1 depressive disorder; GERD; GI Bleed; hemorrhoids; hiatal hernia; Hypertensive disorder; Migraine; peptic ulcer disease; hyperthyroidism; - PSHx: 19:27 Bladder; Cholecystectomy; knee; wrist; section; surgery on nerve in right arm me1 ( section); - Immunization history:: Adult Immunizations up to date. - Social history:: Smoking status: Patient denies any tobacco usage or history of. Screenin:50 [facility] ED Fall Risk Assessment (Adult) History of falling in the last 3 months, me1 including since admission No falls in past 3 months (0 pts) Confusion or Disorientation No (0 pts) Intoxicated or Sedated No (0 pts) Impaired Gait No (0 pts) Mobility Assist Device Used No (0 pt) Altered Elimination No (0 pt) Score/Fall Risk Level 0 - 2 = Low Risk. Abuse screen: Denies threats or abuse. Nutritional screening: No deficits noted. Tuberculosis screening: No symptoms or risk factors identified. Assessment: 19:50 General: See triage assessment. . me1 Vital Signs: 19:27 BP 157 / 87; Pulse 122; Resp 18; Temp 98; Pulse Ox 99% on R/A; me1 19:48 BP 161 / 87; Pulse 120; Resp 16; Pulse Ox 98% on R/A; me1 20:30 BP 153 / 83; Pulse 116; Resp 18; Pulse Ox 97% on R/A; me1 21:15 BP 128 / 74; Pulse 103; Resp 17; Pulse Ox 96% on R/A; me1 21:52 BP 122 / 61; Pulse 103; Resp 17; Pulse Ox 100% on R/A; me1 ED Course: 19:13 Patient arrived in ED. me1 19:18 Gualberto Barron MD is Attending Physician. [facility] 19:27 Triage completed. me1 19:27 Arm band placed on Patient placed in an exam room. me1 19:50 Patient has correct armband on for positive identification. Bed in low position. Call [facility] light in reach. Side rails up X 1. Provided Education on: POC. Verbalized understanding. . 19:50 No provider procedures requiring assistance completed. Patient did not have IV access [facility] during this emergency room visit. 19:51 Assist provider with I \T\ D: of an abscess on right labia Dressing with ABD pad, Patient me1 tolerated well. 19:52 Marsha Childs, RN is Primary Nurse. me1 21:58 IV discontinued, intact, bleeding controlled, No redness/swelling at site. Pressure me1 dressing applied. Administered Medications: 19:58 Drug: Doxycycline PO 100 mg PO once Route: PO; me1 20:35 Follow up: Response: No adverse reaction me1 20:34 Drug: NS 0.9% IV 1000 ml IV at 1 bolus Per protocol; 1000 mL bolus Route: IV; Rate: 1 me1 bolus; Site: left hand; 22:02 Follow up: IV Status: Completed infusion me1 20:35 Drug: Ativan IVP 1 mg IVP once Route: IVP; Site: left hand; me1 21:24 Follow up: Response: No adverse reaction; Anxiety decreased me1 Medication: 19:50 VIS not applicable for this client. me1 Outcome: 21:45 Discharge ordered by . ec2 21:58 Discharged to home ambulatory, with family, me1 21:58 Condition: stable 21:58 Discharge instructions given to patient, Instructed on discharge instructions, follow up and referral plans. Demonstrated understanding of instructions, follow-up care, medications, Prescriptions given X 1, 22:00 Patient left the ED. me1 Signatures: Toshia Kumari, INTERNET CONSULTANT INTERNET CONSULTANT [email or web address] Marsha Childs, RIMA RN me1 Gualberto Barron MD MD ec2
== END 2023-06-23 22:00 | disposition home or self-care (01) ==
LOC: ER 19:08
PROC: 0U9M0ZZ Drainage of Vulva, Open Approach (ICD-10-PCS; principal; 2023-06-23)
DX: N76.4 Abscess of vulva (principal); L03.314 Cellulitis of groin; D64.9 Anemia, unspecified; F41.9 Anxiety disorder, unspecified; J45.909 Unspecified asthma, uncomplicated; I10 Essential (primary) hypertension; E05.90 Thyrotoxicosis, unspecified without thyrotoxic crisis or storm; Z86.73 Personal history of transient ischemic attack (TIA), and cerebral infarction without residual deficits
CPT/HCPCS: 96361; 85025; 36415; 80053; 96374; 99284; 56405; J7030

== ENCOUNTER 2023-07-19 11:29 | Inpatient (IN) | payer OTHER ==
[2023-07-19] MEDS ORDERED: IPRATROPIUM BROM 0.5MG/2.5ML ONE (12:23)
[2023-07-19] MEDS ORDERED: LEVALBUTEROL 1.25 MG/3 ML NEB ONE ×2 (12:24→14:23)
[2023-07-19] MEDS ORDERED: Levofloxacin500mg IV 500 MG/100 ML BAG IV ONE (12:24)
[2023-07-19] MEDS ORDERED: METHYLPREDNISOLONE 125 MG INJ ONE (12:24)
[2023-07-19] MEDS ORDERED: NA CHLORIDE 0.9% 1,000 ML ONE (12:25)
[2023-07-19 13:18] LABS: Absolute Lymphocytes (CBC) 0.9 K/uL (0.7-4.9); Lymphocytes % 22.8 % (15.3-44.8); MCV 99.9 fL (80-100); MPV 8.6 fL (7.6-11.3); Platelets 166 thou/uL (152-406); RBC Red Blood Cell Count 2.91 M/uL (3.86-4.86)
[2023-07-19 13:38] LABS: ALT/SGPT 17 U/L (13-56); AST/SGOT 8 U/L (15-37); Alkaline Phosphatase 81 U/L (45-117); BUN Blood Urea Nitrogen 8 mg/dL (7-18); Bicarbonate 23 mEq/L (21-32); Bilirubin Total 0.1 mg/dL (0.2-1.0); Glomerular Filtration Rate 66 ml/min (=/>90); Glucose Level 124 mg/dL (74-106); Lipase 32 U/L (13-75); Magnesium 1.7 mg/dL (1.6-2.4); NT PRO-BNP 69 pg/mL (<125); Protein, Total 6.6 g/dL (6.4-8.2); Sodium Level 135 mEq/L (136-145); Troponin High Sensitivity 4.4 pg/mL (<58.9)
[2023-07-19 13:39] LABS: Specific Gravity < 1.005 (1.005-1.030); Urine Bilirubin NEGATIVE (Negative); Urine Blood Negative (Negative); Urine Clarity Clear (Clear); Urine Color Colorless (Yellow); Urine Glucose NEGATIVE (Negative); Urine Protein NEGATIVE (Negative); Urine Urobilinogen Normal (Normal)
[2023-07-19 13:41] LABS: Bilirubin Direct < 0.1 mg/dL (0-0.2); Bilirubin Indirect, Calculated ND mg/dL (0.2-0.8)
--- NOTE | 2023-07-19 13:42 | RAD REPORT ---
EXAM DESCRIPTION: Nichole Single View07/19/2023 1:10 pm CLINICAL HISTORY: Chest pain COMPARISON: December 2022 FINDINGS: Mild bilateral chronic appearing interstitial lung opacities The lungs appear clear of acute infiltrate. The heart is normal size IMPRESSION: No acute abnormalities displayed
--- NOTE | 2023-07-19 13:50 | RAD REPORT ---
EXAM DESCRIPTION: USExtrem Venous W Compress Bil07/19/2023 1:38 pm CLINICAL HISTORY: Leg pain COMPARISON: none FINDINGS: The common femoral, superficial femoral, greater saphenous, popliteal and posterior tibial veins bilaterally are compressible and demonstrate augmentation. Doppler demonstrates good flow. Grayscale, color and spectral analysis performed on all vessels IMPRESSION: No evidence of deep venous thrombosis involving either lower extremity.
[2023-07-19 14:21] LABS: SARS-COV-2 RT PCR POSITIVE (NEGATIVE)
--- NOTE | 2023-07-19 15:04 | ER ---
Nurse's Notes [facility] Name: Radha Santos Age: 62 yrs Sex: Female : 1960 Arrival Date: 07/19/2023 Time: 11:29 Bed 8 Private MD: Diagnosis: Dyspnea;COPD/ Chronic obstructive pulmonary disease with (acute) exacerbation;Cough;SARS-associated coronavirus as the cause of diseases classified elsewhere Presentation: 07/19 11:31 Chief complaint: EMS states: patient has been having a sinus infection, states she ko1 might have overexerted herself and became short of breath, had some slight expiratory wheezes on arrival. She had given herself a breathing treatment prior to EMS arrival and EMS gave her one in route in addition to 125mg IV solumedrol. Patient is feeling better now. Coronavirus screen: At this time, the client does not indicate any symptoms associated with coronavirus-19. Ebola Screen: No symptoms or risks identified at this time. Initial Sepsis Screen: Does the patient meet any 2 criteria? No. Patient's initial sepsis screen is negative. Does the patient have a suspected source of infection? No. Patient's initial sepsis screen is negative. Risk Assessment: Do you want to hurt yourself or someone else? Patient reports no desire to harm self or others. Onset of symptoms is unknown. Care prior to arrival: Medication(s) given: Albuterol Neb x 1, Atrovent Neb x 1, solumedrol 125 mg IV IV initiated. 20 GA, in the left antecubital area, Med neb given. 11:31 Method Of Arrival: EMS: [facility] ko1 11:31 Acuity: SAURAV 3 ko1 Triage Assessment: 11:35 General: Appears in no apparent distress. comfortable, Behavior is cooperative, ko1 appropriate for age, anxious. Pain: Denies pain. Historical: - Allergies: 11:35 miconazole; ko1 11:35 skin cleanser combination no.17; ko1 - PMHx: 11:35 Anemia; Anxiety; Arthritis; Asthma; Back pain; Bipolar disorder; Bladder problem; CVA; ko1 depressive disorder; GERD; GI Bleed; hemorrhoids; hiatal hernia; Hypertensive disorder; hyperthyroidism; Migraine; peptic ulcer disease; - PSHx: 11:35 Bladder; section; Cholecystectomy; knee; surgery on nerve in right arm (an); ko1 wrist; - Immunization history:: Adult Immunizations unknown. - Social history:: Smoking status: Patient denies any tobacco usage or history of. - Family history:: not pertinent. Screenin:00 [facility] ED Fall Risk Assessment (Adult) History of falling in the last 3 months, ko1 including since admission No falls in past 3 months (0 pts) Confusion or Disorientation No (0 pts) Intoxicated or Sedated No (0 pts) Impaired Gait Yes (1 pt) Mobility Assist Device Used Yes (1 pt) Altered Elimination No (0 pt) Score/Fall Risk Level 0 - 2 = Low Risk Oriented to surroundings, Maintained a safe environment, Educated pt \T\ family on fall prevention, incl call for assistance when getting out of bed, Assessed \T\ reinforced patient's understanding of fall precautions, Provided non-skid footwear, Hourly rounding (assess needs \T\ fall precautionary measures) done, Used ambulatory aids as needed (educated on \T\ assisted with), Used gait belt as appropriate. Abuse screen: Denies threats or abuse. Denies injuries from another. Nutritional screening: No deficits noted. Tuberculosis screening: No symptoms or risk factors identified. Assessment: 12:00 Neuro: No deficits noted. Cardiovascular: No deficits noted. Respiratory: Reports ko1 shortness of breath pain with movement. Vital Signs: 11:31 BP 123 / 72; Pulse 96; Resp 18; Temp 98; Pulse Ox 100% on R/A; ko1 13:30 BP 148 / 82; Pulse 88; Resp 19; Pulse Ox 99% on R/A; ko1 14:32 BP 144 / 71; Pulse 89; Resp 18; Pulse Ox 99% on R/A; ko1 14:41 Weight 99.79 kg; ko1 ED Course: 11:31 Patient arrived in ED. itz 11:31 Ethan Ray MD is Attending Physician. itz 11:31 Rahel Styles, RIMA is Primary Nurse. ko1 11:35 Triage completed. ko1 11:35 Arm band placed on right wrist. Patient placed in an exam room, on a stretcher, on ko1 teletypesetter monitor, on pulse oximetry, Patient notified of wait time. 12:00 Patient has correct armband on for positive identification. Placed in gown. Bed in low ko1 position. Call light in reach. Side rails up X 1. Provided Education on: na. Client placed on continuous cardiac and pulse oximetry monitoring. NIBP monitoring applied. environmental monitoring technician on. Door closed. Noise minimized. Lights dimmed. Warm blanket given. 12:00 No provider procedures requiring assistance completed. ko1 12:57 COVID-19/FLU A+B/RSV Sent. ko1 13:00 Inserted saline lock: 22 gauge in right upper arm, using aseptic technique. Blood aa5 collected. 13:00 Initial lab(s) drawn, sent to lab. aa5 13:06 COVID-19/FLU A+B/RSV Sent. ko1 13:06 Lactate w/ 2H reflex if indic. Sent. ko1 13:06 Lipase Sent. ko1 13:06 Basic Metabolic Panel Sent. ko1 13:06 CBC with Diff Sent. ko1 13:06 LFT's Sent. ko1 13:06 Magnesium Sent. ko1 13:06 NT PRO-BNP Sent. ko1 13:06 PT-INR Sent. ko1 13:06 Troponin HS Sent. ko1 13:07 First set of blood cultures drawn by me. aa5 13:12 XRAY Chest (1 view) In Process Unspecified. EDMS 13:28 Urinalysis w/ reflexes Sent. ko1 13:28 Blood Culture Adult (2) Sent. ko1 13:40 US Extremity Venous W Compression [place] In Process Unspecified. EDMS 15:02 Curtis Sellers is Hospitalizing Provider. itz 15:04 Karlo Saleh MD is Hospitalizing Provider. itz 21:35 Patient admitted, IV remains in place. vc1 Administered Medications: 12:33 Drug: MethylPrednisoLONE IVP 125 mg IVP once Route: IVP; Site: left antecubital; ko1 12:33 Drug: Levalbuterol Inhalation 3.75 mg Inhalation once Route: Inhalation; ko1 12:33 Drug: Ipratropium Inhalation Aerosol 0.5 mg Inhalation once Route: Inhalation; ko1 13:27 Drug: NS 0.9% IV 1000 ml IV at 75 ml/hr continuous Route: IV; Rate: 75 ml/hr; Site: ko1 right upper arm; 13:28 Drug: levofloxacin IVPB 500 mg 100 ml IVPB once over 60 mins Volume: 100 ml; Route: ko1 IVPB; Infused Over: 60 mins; Site: right upper arm; 14:27 Drug: Levalbuterol Inhalation 1.25 mg Inhalation once Route: Inhalation; ko1 15:51 Drug: Paxlovid Dose Pack 300 mg (150 mg x 2)-100 mg 3 tabs PO once Route: PO; Medication: 12:00 VIS not applicable for this client. ko1 Outcome: 15:03 Decision to Hospitalize by Provider. itz 19:00 Admitted to ER Hold. Please see [facility] for further documentation. vc1 19:00 Condition: good 19:00 Instructed on the need for admit, 07/20 17:57 Patient left the ED. ko1 Signatures: Dispatcher [employer] EDMS Ethan Ray MD MD cha Calderon, Audri, RN RN [id number] Lindsey Trivedi RN RN Callie Duffy RN RN vc1 Rahel Styles RN RN ko1
--- NOTE | 2023-07-19 15:04 | EDPHYS ---
Physician Documentation [facility] Name: Radha Santos Age: 62 yrs Sex: Female : 1960 Arrival Date: 07/19/2023 Time: 11:29 Bed 8 Private MD: ED Physician Ethan Ray HPI: 07/19 14:57 This 62 yrs old Female presents to ER via EMS with complaints of cough and itz congestion, copd. 14:57 The patient has shortness of breath at rest, with light activity. Onset: The itz symptoms/episode began/occurred 3 day(s) ago. Duration: The symptoms are continuous, and are steadily getting worse. The patient's shortness of breath is aggravated by coughing, talking, walking. The patient or guardian reports cough, described as mild, described as moderate, difficulty breathing, flu symptoms, arthralgias, low-grade fever, myalgias. Modifying factors: The symptoms are alleviated by changing position, remaining still, the symptoms are aggravated by activity, lying flat. Associated signs and symptoms: Pertinent positives: non-productive cough. Severity of symptoms: At their worst the symptoms were moderate in the emergency department the symptoms have improved mildly. The patient or guardian reports. Historical: - Allergies: 11:35 miconazole; ko1 11:35 skin cleanser combination no.17; ko1 - PMHx: 11:35 Anemia; Anxiety; Arthritis; Asthma; Back pain; Bipolar disorder; Bladder problem; CVA; ko1 depressive disorder; GERD; GI Bleed; hemorrhoids; hiatal hernia; Hypertensive disorder; hyperthyroidism; Migraine; peptic ulcer disease; - PSHx: 11:35 Bladder; section; Cholecystectomy; knee; surgery on nerve in right arm (an); ko1 wrist; - Immunization history:: Adult Immunizations unknown. - Social history:: Smoking status: Patient denies any tobacco usage or history of. - Family history:: not pertinent. ROS: 14:57 Constitutional: Negative for fever, chills, and weight loss, Eyes: Negative for injury, itz pain, redness, and discharge, ENT: Negative for injury, pain, and discharge, Neck: Negative for injury, pain, and swelling, Cardiovascular: Negative for chest pain, palpitations, and edema, Abdomen/GI: Negative for abdominal pain, nausea, vomiting, diarrhea, and constipation, Back: Negative for injury and pain, : Negative for injury, bleeding, discharge, and swelling, Skin: Negative for injury, rash, and discoloration, Neuro: Negative for headache, weakness, numbness, tingling, and seizure, Psych: Negative for depression, anxiety, suicide ideation, homicidal ideation, and hallucinations, Allergy/Immunology: Negative for hives, rash, and allergies, Endocrine: Negative for neck swelling, polydipsia, polyuria, polyphagia, and marked weight changes, Hematologic/Lymphatic: Negative for swollen nodes, abnormal bleeding, and unusual bruising, 14:57 Respiratory: Positive for cough, wheezing, inspiratory, expiratory, of the left posterior upper lobe, right posterior upper lobe, left posterior lower lobe, right posterior middle lobe and right posterior lower lobe, 14:57 MS/extremity: Positive for swelling, of the right leg and left leg, Exam: 14:57 Constitutional: This is a well developed, well nourished patient who is awake, alert, itz and in no acute distress. Head/Face: Normocephalic, atraumatic. Eyes: Pupils equal round and reactive to light, extra-ocular motions intact. Lids and lashes normal. Conjunctiva and sclera are non-icteric and not injected. Cornea within normal limits. Periorbital areas with no swelling, redness, or edema. ENT: Nares patent. No nasal discharge, no septal abnormalities noted. Tympanic membranes are normal and external auditory canals are clear. Oropharynx with no redness, swelling, or masses, exudates, or evidence of obstruction, uvula midline. Mucous membranes moist. Neck: Trachea midline, no thyromegaly or masses palpated, and no cervical lymphadenopathy. Supple, full range of motion without nuchal rigidity, or vertebral point tenderness. No Meningismus. Chest/axilla: Normal chest wall appearance and motion. Nontender with no deformity. No lesions are appreciated. Cardiovascular: Regular rate and rhythm with a normal S1 and S2. No gallops, murmurs, or rubs. Normal PMI, no JVD. No pulse deficits. Abdomen/GI: Soft, non-tender, with normal bowel sounds. No distension or tympany. No guarding or rebound. No evidence of tenderness throughout. Back: No spinal tenderness. No costovertebral tenderness. Full range of motion. Skin: Warm, dry with normal turgor. Normal color with no rashes, no lesions, and no evidence of cellulitis. MS/ Extremity: Pulses equal, no cyanosis. Neurovascular intact. Full, normal range of motion. Neuro: Awake and alert, GCS 15, oriented to person, place, time, and situation. Cranial nerves II-XII grossly intact. Motor strength 5/5 in all extremities. Sensory grossly intact. Cerebellar exam normal. Normal gait. Psych: Awake, alert, with orientation to person, place and time. Behavior, mood, and affect are within normal limits. 14:57 ECG was reviewed by the Attending Physician. Vital Signs: 11:31 BP 123 / 72; Pulse 96; Resp 18; Temp 98; Pulse Ox 100% on R/A; ko1 13:30 BP 148 / 82; Pulse 88; Resp 19; Pulse Ox 99% on R/A; ko1 14:32 BP 144 / 71; Pulse 89; Resp 18; Pulse Ox 99% on R/A; ko1 14:41 Weight 99.79 kg; ko1 MDM: 11:31 Patient medically screened. itz 15:00 Differential diagnosis: Anemia Anxiety Reaction Bronchitis CHF exacerbation, Chronic itz Obstructive Pulmonary Disease obstructed airway, bronchitis, flu, URI, Myocardial Infarction pneumonia, Pneumothorax pulmonary edema, reactive airway disease, Sepsis Unstable Angina. Antibiotic administration: Levaquin given. Differential Diagnosis: Obstructed Airway Bronchitis Influenza Upper Respiratory Infection Sinusitis Pharyngitis Asthma Exacerbation Viral Syndrome Pneumonia. Immunization status: Influenza vaccine: within last 5 years. Data reviewed: vital signs, nurses notes, EMS record, lab test result(s), EKG, radiologic studies, plain films. Consideration of Admission/Observation Escalation of care including admission/observation considered. I considered the following discharge prescriptions or medication management in the emergency department Medications were administered in the Emergency Department. See MAR. Independent interpretation of the following test(s) in the Emergency Department EKG: See my EKG interpretation above. Test considered but Not performed: CT: no ct chest. Care significantly affected by the following chronic conditions: Diabetes, Hypertension, Chronic Obstructive Pulmonary Disease, Obesity, bipolar, derression, asthma. 07/19 11:37 Order name: Basic Metabolic Panel; Complete Time: 14:18 [facility] 07/19 11:37 Order name: CBC with Diff; Complete Time: 13:24 [facility] 07/19 11:37 Order name: LFT's; Complete Time: 14:18 [facility] 07/19 11:37 Order name: Magnesium; Complete Time: 14:18 [facility] 07/19 11:37 Order name: NT PRO-BNP; Complete Time: 14:18 [facility] 07/19 11:37 Order name: PT-INR; Complete Time: 13:24 [facility] 07/19 11:37 Order name: Troponin HS; Complete Time: 14:18 [facility] 07/19 11:37 Order name: Lipase; Complete Time: 14:18 [facility] 07/19 11:37 Order name: Blood Culture Adult (2) [facility] 07/19 11:37 Order name: Lactate w/ 2H reflex if indic.; Complete Time: 14:18 [facility] 07/19 11:37 Order name: Urinalysis w/ reflexes; Complete Time: 14:18 [facility] 07/19 11:37 Order name: COVID-19/FLU A+B/RSV; Complete Time: 14:32 [facility] 07/20 04:24 Order name: CBC with Automated Diff EDMS 07/20 04:26 Order name: Basic Metabolic Panel EDMS 07/20 04:26 Order name: Magnesium EDMS 07/20 05:32 Order name: Manual Differential EDMS 07/19 11:37 Order name: XRAY Chest (1 view); Complete Time: 14:18 [facility] 07/19 11:37 Order name: US Extremity Venous W Compression [place]; Complete Time: 14:18 [facility] 07/19 11:37 Order name: EKG; Complete Time: 11:38 itz 07/19 11:37 Order name: Cardiac monitoring; Complete Time: 11:41 [facility] 07/19 11:37 Order name: EKG - Nurse/Tech; Complete Time: 13:28 [facility] 07/19 11:37 Order name: IV Saline Lock; Complete Time: 11:41 [facility] 07/19 11:37 Order name: Labs collected and sent; Complete Time: 13:06 07/19 11:37 Order name: O2 Per Protocol; Complete Time: 11:42 [facility] 07/19 11:37 Order name: O2 Sat Monitoring; Complete Time: 11:42 [facility] EC:57 Rate is 92 beats/min. Rhythm is regular. QRS [place] is Normal. [place] interval is normal. QRS itz interval is normal. QT interval is normal. No Q waves. T waves are Normal. No ST changes noted. Clinical impression: NSR w/ Non-specific ST/T Changes and No evidence of ischemia. Interpreted by me. Reviewed by me. Administered Medications: 12:33 Drug: MethylPrednisoLONE IVP 125 mg IVP once Route: IVP; Site: left antecubital; ko1 12:33 Drug: Levalbuterol Inhalation 3.75 mg Inhalation once Route: Inhalation; ko1 12:33 Drug: Ipratropium Inhalation Aerosol 0.5 mg Inhalation once Route: Inhalation; ko1 13:27 Drug: NS 0.9% IV 1000 ml IV at 75 ml/hr continuous Route: IV; Rate: 75 ml/hr; Site: ko1 right upper arm; 13:28 Drug: levofloxacin IVPB 500 mg 100 ml IVPB once over 60 mins Volume: 100 ml; Route: ko1 IVPB; Infused Over: 60 mins; Site: right upper arm; 14:27 Drug: Levalbuterol Inhalation 1.25 mg Inhalation once Route: Inhalation; ko1 15:51 Drug: Paxlovid Dose Pack 300 mg (150 mg x 2)-100 mg 3 tabs PO once Route: PO; ph Disposition Summary: 07/19/23 15:03 Hospitalization Ordered Notes: Hospitalization Status: Observation itz Condition: Fair itz Problem: new itz Symptoms: have improved itz Bed/Room Type: Standard itz Provider: Karlo Saleh(07/19/23 15:04) itz Location: [facility] ER HOLD(07/19/23 16:47) kb3 Room Assignment: ERHOLD-(07/19/23 16:47) kb3 Diagnosis - Dyspnea itz - COPD/ Chronic obstructive pulmonary disease with (acute) exacerbation itz - Cough itz - SARS-associated coronavirus as the cause of diseases classified elsewhere itz Forms: - Medication Reconciliation Form itz - SBAR form itz - Leadership Thank You Letter itz Signatures: Dispatcher [employer] Ethan Dixon MD MD cha Hall, Patricia, RN RN ph Destiny Flores RN RN kb3 Rahel Styles RN RN ko1 Corrections: (The following items were deleted from the chart) 15:04 15:03 Curtis Sellers cha [facility] 16:47 15:03 Telemetry/MedSurg (observation) [facility] 16:47 15:03 [facility]
--- NOTE | 2023-07-19 15:13 | P.HP ---
Certification for Inpatient Patient admitted to: Inpatient With expected LOS: <2 Midnights Patient will require the following post-hospital care: None Practitioner: I am a practitioner with admitting privileges, knowledge of patient current condition, hospital course, and medical plan of care. Services: Services provided to patient in accordance with Admission requirements found in Title 42 Section 412.3 of the Code of Federal Regulations Patient History Date of Service: 07/19/23 History of Present Illness: 62-year-old female with a past medical history asthma, anemia, anxiety, arthritis, bipolar, CVA, depression, GERD, GI bleed, hiatal hernia, hypertension, hyper thyroidism, migraine, peptic ulcer disease, presents to the emergency room with shortness of breath. She reports associated cough, she reports symptoms started 3 days ago is progressively getting worse. Shortness of breath and cough is aches exacerbated by walking and talking. She reports low-grade temp, flulike symptoms, muscle aches. She reports symptoms made worse when lying flat, she denies nonproductive cough, chest pain, abdominal pain, nausea vomiting diarrhea, plan to admit for acute hypoxic respiratory failure secondary to COPD exacerbation, COVID, ER hospital course patient was treated with lev albuterol, ipratropium, methylprednisolone 125, levofloxacin IV, EKG Rate is 92 beats/min. Rhythm is regular. QRS [place] is Normal. [place] interval is normal. QRS izt interval is normal. QT interval is normal. No Q waves. T waves are Normal. No ST changes noted. Clinical impression: NSR w/ Non-specific ST/T Changes and No evidence of ischemia. Chest x-ray FINDINGS: Mild bilateral chronic appearing interstitial lung opacities The lungs appear clear of acute infiltrate. The heart is normal size MPRESSION: No acute abnormalities displayed, Doppler IMPRESSION: No evidence of deep venous thrombosis involving either lower extremity. Laboratory evaluation no leukocytosis, microcytic anemia 9.9, 29.1, mild hyponatremia 135 glucose 124 Allergies miconazole [From Monistat 3] Allergy (Verified 11/14/22 07:18) Rash skin cleanser combination no.17 [From Monistat 3] Allergy (Verified 11/14/22 07:18) Rash Home Medications: Losartan Potassium 1 tab PO DAILY 10/11/21 Simvastatin 20 mg PO BEDTIME 10/11/21 Quetiapine [Seroquel*] 300 mg PO BEDTIME 05/15/22 Albuterol Inhaler [Ventolin Inhaler*] 1 puff IH Q4HP PRN 06/07/22 Fluticasone [Flonase 50MCG Nasal [place]*] 2 spray KARON DAILY 06/07/22 Montelukast [Singulair*] 10 mg PO DAILY 06/07/22 Omeprazole [Prilosec] 40 mg PO DAILY 06/07/22 Spironolactone [Aldactone*] 25 mg PO DAILY 06/07/22 Sucralfate [Carafate*] 1 gm PO BID 06/07/22 Trazodone [Desyrel*] 150 mg PO BEDTIME 06/07/22 Acetaminophen with Codeine [Acetaminophen-Cod #4 Tablet] 1 tab PO Q6HP PRN 11/09/22 Amlodipine Besylate 5 mg PO DAILY 11/09/22 Deutetrabenazine [Austedo] 9 mg PO BID 11/09/22 Fluticasone/Umeclidin/Vilanter [Trelegy Ellipta 200-62.5-25] 2 puff IH DAILY 11/09/22 Levothyroxine Sodium [Levothyroxine] 175 mcg PO DAILY 11/09/22 Polyethylene Glycol 3350 [Miralax] 17 gm PO DAILY 11/09/22 Tizanidine HCl [Zanaflex] 2 mg PO TIDP PRN 11/09/22 - Past Medical/Surgical History Diabetic: Yes -: depression -: bipolar -: hypertension -: cva -: asthma -: IDDM -: short term memory problems -: COPD -: hypothyroidism -: anemia -: gastric ulcers -: hysterectomy -: bilateral knee replacement -: susy -: csections -: right wrist surgery Psychosocial/ Personal History: Patient lives at home. - Family History Father -: Cancer Notes: skin Mother -: Heart disease, Diabetes Notes: Bipolar - Social History Alcohol use: No CD- Drugs: No Caffeine use: No Review of Systems per HPI Physical Examination - Physical Exam General: Alert, Mild distress HEENT: Atraumatic, Normocephalic Neck: Supple, 2+ carotid pulse no bruit Respiratory: Expiratory wheezes, Inspiratory wheezes Cardiovascular: No edema, Normal pulses, Regular rate/rhythm Capillary refill: <2 Seconds Gastrointestinal: Normal bowel sounds, Soft and benign Musculoskeletal: No clubbing, No swelling Integumentary: No rashes, No breakdown Neurological: Normal speech, Normal strength at 5/5 x4 extr - Studies Laboratory Data (last 24 hrs) 07/19/23 07/19/23 07/19/23 13:00 13:00 13:00 WBC 3.90 L Hgb 9.9 L Hct 29.0 L Plt Count 166 PT 11.0 INR 1.00 Sodium 135 L Potassium 4.0 BUN 8 Creatinine 0.97 Glucose 124 H Magnesium 1.7 Total Bilirubin 0.1 L AST 8 L ALT 17 Alkaline Phosphatase 81 Lipase 32 Assessment and Plan - Plan Assessment plan Acute hypoxic respiratory failure secondary to COVID Asthma exacerbation COVID Nebs, Levaquin, steroids, Paxlovid Patient was treated with lev albuterol, ipratropium, methylprednisolone 125, levofloxacin IV, Paxlovid in the emergency room EKG Rate is 92 beats/min. Rhythm is regular. QRS [place] is Normal. [place] interval is normal. QRS itz interval is normal. QT interval is normal. No Q waves. T waves are Normal. No ST changes noted. Clinical impression: NSR w/ Non-specific ST/T Changes and No evidence of ischemia. O2 2 L keep sats greater than 92% Chest x-ray FINDINGS: Mild bilateral chronic appearing interstitial lung opacitiesThe lungs appear clear of acute infiltrate. The heart is normal size MPRESSION: No acute abnormalities displayed Doppler IMPRESSION: No evidence of deep venous thrombosis involving either lower extremity. Laboratory evaluation no leukocytosis, glucose 124 Microcytic anemia microcytic anemia 9.9, 29.1, mild hyponatremia Sodium 135 anxiety-depression arthritis bipolar History CVA Resume appropriate home meds GERD History GI bleed hiatal hernia hypertension hyperthyroidism migraine peptic ulcer disease Resume appropriate home meds Cardiac diet . full code DVT SCDs Discharge Plan: Home - Advance Directives Does patient have a Living Will: No Does patient have a Durable POA for Healthcare: No - Code Status/Comfort Care Code Status: Full Code Physician Review: Patient Assessed, Agree with Above Assessment and Plan Critical Care: No Time Spent Managing Pts Care (In Minutes): 55
[2023-07-19] MEDS ORDERED: NIRMATRELVIR/RITONAVIR TABLET PO ONE (15:30)
[2023-07-19] MEDS ORDERED: IPRATROPIUM BROM 0.5MG/2.5ML NEB PRN (16:36)
[2023-07-19] MEDS ORDERED: ONDANSETRON 4 MG/2 ML VIAL IV PRN (16:36)
[2023-07-19] MEDS ORDERED: ALBUTEROL 2.5 MG/3 ML NEB SOL NEB PRN (16:36)
[2023-07-19] MEDS ORDERED: ACETAMINOPHEN 500 MG TAB PO PRN (16:36)
[2023-07-19] MEDS: METHYLPREDNISOLONE 125 MG INJ IV SCH (18:00)
[2023-07-19] MEDS ORDERED: ACETAMINOPHEN 500 MG TAB ONE (20:43)
[2023-07-19] MEDS ORDERED: NIRMATRELVIR/RITONAVIR TABLET PO SCH ×3 (21:00)
[2023-07-20] MEDS ORDERED: ALBUTEROL 2.5 MG/3 ML NEB SOL ONE (00:08)
[2023-07-20] MEDS ORDERED: IPRATROPIUM BROM 0.5MG/2.5ML ONE (00:09)
[2023-07-20] MEDS ORDERED: METHYLPREDNISOLONE 40 MG INJ ONE ×3 (00:09→11:32)
[2023-07-20] MEDS: METHYLPREDNISOLONE 125 MG INJ IV SCH ×2 (00:16→11:28)
[2023-07-20 02:24] VITALS: O2SAT 98
[2023-07-20 04:12] LABS: Absolute Lymphocytes (CBC) 0.5 K/uL (0.7-4.9); Hematocrit 29.2 % (36.0-45.0); Lymphocytes % 8.4 % (15.3-44.8); MCV 99.9 fL (80-100); MPV 9.1 fL (7.6-11.3); Platelets 171 thou/uL (152-406); RBC Red Blood Cell Count 2.93 M/uL (3.86-4.86)
[2023-07-20 04:26] LABS: Magnesium 1.6 mg/dL (1.6-2.4); Potassium 3.6 mEq/L (3.5-5.1)
[2023-07-20 05:32] LABS: Blood Morphology Comment NOT SEEN (NOT SEEN); Platelet Estimate ADEQ
[2023-07-20] MEDS ORDERED: MAGNESIUM SULFATE 1 gm IVPB 1 GM/100 ML BAG IV ONE ×2 (06:17→06:29)
[2023-07-20] MEDS ORDERED: POTASSIUM 25 MEQ EFFERV TAB PO ONE (06:19)
[2023-07-20] MEDS ORDERED: POTASSIUM 25 MEQ EFFERV TAB ONE (06:28)
[2023-07-20] MEDS ORDERED: HOME MED 1 EA UNK (Tizanidine Hcl [Zanaflex] 2 MG Capsule) PO PRN (09:47)
[2023-07-20] MEDS ORDERED: FUROSEMIDE 20 MG/ 2ML VIAL IV ONE (09:47)
[2023-07-20] MEDS ORDERED: LOSARTAN POTASSIUM 50 MG TABLET PO SCH (09:53)
[2023-07-20] MEDS ORDERED: AMLODIPINE 5 MG TAB PO ONE (09:53)
[2023-07-20] MEDS ORDERED: AMLODIPINE 5 MG TAB ONE (10:08)
[2023-07-20] MEDS ORDERED: FUROSEMIDE 20 MG/ 2ML VIAL ONE (10:08)
[2023-07-20] MEDS ORDERED: LOSARTAN POTASSIUM 50 MG TABLET ONE (10:09)
[2023-07-20] MEDS ORDERED: SPIRONOLACTONE 25 MG TABLET PO ONE (10:15)
[2023-07-20] MEDS ORDERED: TIZANIDINE 4 MG TABLET PO PRN (11:04)
--- NOTE | 2023-07-20 11:29 | P.PN ---
Subjective Date of Service: 07/20/23 Physical Examination - Vital Signs Temperature: 97 F Blood Pressure: 168/92 Pulse: 100 Respirations: 15 Pulse Ox (%): 99 - Studies Laboratory Data (last 24 hrs) 07/19/23 07/19/23 07/19/23 13:00 13:00 13:00 WBC 3.90 L Hgb 9.9 L Hct 29.0 L Plt Count 166 PT 11.0 INR 1.00 Sodium 135 L Potassium 4.0 BUN 8 Creatinine 0.97 Glucose 124 H Magnesium 1.7 Total Bilirubin 0.1 L AST 8 L ALT 17 Alkaline Phosphatase 81 Lipase 32 Microbiology Data (last 24 hrs): 07/19/23 13:07 Blood - Blood Anaerobic Blood Culture - Final Assessment And Plan - Plan Assessment plan Acute hypoxic respiratory failure secondary to COVID Asthma exacerbation COVID Nebs, Levaquin, steroids, Paxlovid Patient was treated with lev albuterol, ipratropium, methylprednisolone 125, levofloxacin IV, Paxlovid in the emergency room EKG Rate is 92 beats/min. Rhythm is regular. QRS [place] is Normal. [place] interval is normal. QRS itz interval is normal. QT interval is normal. No Q waves. T waves are Normal. No ST changes noted. Clinical impression: NSR w/ Non-specific ST/T Changes and No evidence of ischemia. O2 2 L keep sats greater than 92% Chest x-ray FINDINGS: Mild bilateral chronic appearing interstitial lung opacitiesThe lungs appear clear of acute infiltrate. The heart is normal size MPRESSION: No acute abnormalities displayed Doppler IMPRESSION: No evidence of deep venous thrombosis involving either lower extremity. Laboratory evaluation no leukocytosis, glucose 124 Microcytic anemia microcytic anemia 9.9, 29.1, mild hyponatremia Sodium 135 anxiety-depression arthritis bipolar History CVA Resume appropriate home meds GERD History GI bleed hiatal hernia hypertension hyperthyroidism migraine peptic ulcer disease Resume appropriate home meds Cardiac diet . full code DVT SCDs Physician Review: Patient Assessed, Agree with Above Assessment and Plan
--- NOTE | 2023-07-20 11:29 | P.DS ---
Admission Date: 07/19/23 Discharge Date: 07/20/23 Disposition: ROUTINE DISCHARGE Discharge Condition: GOOD Brief History of Present Illness: 62-year-old female with a past medical history asthma, anemia, anxiety, arthritis, bipolar, CVA, depression, GERD, GI bleed, hiatal hernia, hypertension, hyper thyroidism, migraine, peptic ulcer disease, presents to the emergency room with shortness of breath. She reports associated cough, she reports symptoms started 3 days ago is progressively getting worse. Shortness of breath and cough is aches exacerbated by walking and talking. She reports low-grade temp, flulike symptoms, muscle aches. She reports symptoms made worse when lying flat, she denies nonproductive cough, chest pain, abdominal pain, nausea vomiting diarrhea, plan to admit for acute hypoxic respiratory failure secondary to COPD exacerbation, COVID, ER hospital course patient was treated with lev albuterol, ipratropium, methylprednisolone 125, levofloxacin IV, EKG Rate is 92 beats/min. Rhythm is regular. QRS [place] is Normal. [place] interval is normal. QRS itz interval is normal. QT interval is normal. No Q waves. T waves are Normal. No ST changes noted. Clinical impression: NSR w/ Non-specific ST/T Changes and No evidence of ischemia. Chest x-ray FINDINGS: Mild bilateral chronic appearing interstitial lung opacities The lungs appear clear of acute infiltrate. The heart is normal size MPRESSION: No acute abnormalities displayed, Doppler IMPRESSION: No evidence of deep venous thrombosis involving either lower extremity. Laboratory evaluation no leukocytosis, microcytic anemia 9.9, 29.1, mild hyponatremia 135 glucose 124 Physical Exam General: Alert, obese HEENT: Atraumatic, Normocephalic Neck: Supple, 2+ carotid pulse no bruit Respiratory: resp even unlabored, Cardiovascular: No edema, Normal pulses, Regular rate/rhythm Capillary refill: <2 Seconds Gastrointestinal: Normal bowel sounds, Soft and benign Musculoskeletal: No clubbing, No swelling Integumentary: No rashes, No breakdown Neurological: Normal speech, Normal strength at 5/5 x4 extr Hospital Course: Assessment plan Acute hypoxic respiratory failure secondary to COVID Asthma exacerbation COVID Nebs, Levaquin, steroids, Paxlovid Patient was treated with lev albuterol, ipratropium, methylprednisolone 125, levofloxacin IV, Paxlovid in the emergency room EKG Rate is 92 beats/min. Rhythm is regular. QRS [place] is Normal. [place] interval is normal. QRS itz interval is normal. QT interval is normal. No Q waves. T waves are Normal. No ST changes noted. Clinical impression: NSR w/ Non-specific ST/T Changes and No evidence of ischemia. O2 2 L keep sats greater than 92% Chest x-ray FINDINGS: Mild bilateral chronic appearing interstitial lung o pacitiesThe lungs appear clear of acute infiltrate. The heart is normal size MPRESSION: No acute abnormalities displayed Doppler IMPRESSION: No evidence of deep venous thrombosis involving either lower extremity. Laboratory evaluation no leukocytosis, glucose 124 Patient insist on discharging today because its her birthday Microcytic anemia microcytic anemia 9.9, 29.1, mild hyponatremia Sodium 135 anxiety-depression arthritis bipolar History CVA Resume appropriate home meds INSTRUCTIONS: Physician Discharge Instructions: -DC IV and DC home -Follow-up with PCP in 1 to 2 weeks -Please call Dr. Saleh at [phone] if any questions regarding hospital stay -Please call nursing station at [phone] if any nursing or medication questions -Return to the emergency room if symptoms worsen Vital Signs/Physical Exam: Temp Pulse Resp BP Pulse Ox 97 F 100 H 15 168/92 H 99 07/20/23 11:28 07/20/23 11:28 07/20/23 11:28 07/20/23 11:28 07/20/23 11:28 Laboratory Data at Discharge: WBC 6.30 thou/uL (4.3-10.9) 07/20/23 03:26 Hgb 9.9 g/dL (12.0-15.0) L 07/20/23 03:26 Hct 29.2 % (36.0-45.0) L 07/20/23 03:26 Plt Count 171 thou/uL (152-406) 07/20/23 03:26 PT 11.0 SECONDS (9.5-12.5) 07/19/23 13:00 INR 1.00 07/19/23 13:00 Sodium 133 mEq/L (136-145) L 07/20/23 03:26 Potassium 3.6 mEq/L (3.5-5.1) 07/20/23 03:26 BUN 10 mg/dL (7-18) 07/20/23 03:26 Creatinine 1.08 mg/dL (0.55-1.02) H 07/20/23 03:26 Glucose 257 mg/dL (74-106) H 07/20/23 03:26 Magnesium 1.6 mg/dL (1.6-2.4) 07/20/23 03:26 Total Bilirubin 0.1 mg/dL (0.2-1.0) L 07/19/23 13:00 AST 8 U/L (15-37) L 07/19/23 13:00 ALT 17 U/L (13-56) 07/19/23 13:00 Alkaline Phosphatase 81 U/L (45-117) 07/19/23 13:00 Lipase 32 U/L (13-75) 07/19/23 13:00 Home Medications: Losartan Potassium 1 tab PO DAILY 10/11/21 Simvastatin 20 mg PO BEDTIME 10/11/21 Quetiapine [Seroquel*] 300 mg PO BEDTIME 05/15/22 Albuterol Inhaler [Ventolin Inhaler*] 1 puff IH Q4HP PRN 06/07/22 Fluticasone [Flonase 50MCG Nasal [place]*] 2 spray KARON DAILY 06/07/22 Montelukast [Singulair*] 10 mg PO DAILY 06/07/22 Omeprazole [Prilosec] 40 mg PO DAILY 06/07/22 Spironolactone [Aldactone*] 25 mg PO DAILY 06/07/22 Sucralfate [Carafate*] 1 gm PO BID 06/07/22 Trazodone [Desyrel*] 150 mg PO BEDTIME 06/07/22 Acetaminophen with Codeine [Acetaminophen-Cod #4 Tablet] 1 tab PO Q6HP PRN 11/09/22 Amlodipine Besylate 5 mg PO DAILY 11/09/22 Deutetrabenazine [Austedo] 9 mg PO BID 11/09/22 Fluticasone/Umeclidin/Vilanter [Trelegy Ellipta 200-62.5-25] 2 puff IH DAILY 11/09/22 Levothyroxine Sodium 175 mcg PO DAILY 11/09/22 Polyethylene Glycol 3350 [Miralax] 17 gm PO DAILY 11/09/22 Tizanidine HCl [Zanaflex] 2 mg PO TIDP PRN 11/09/22 Guaifen W/Codeine Syrup [ROBITUSSIN A-C Syrup] 10 ml PO Q12HP PRN #150 ml 07/19/23 Nirmatrelvir/Ritonavir [Paxlovid 150-100 mg Pack (Eua)] 3 tab PO BID #1 mily 07/19/23 predniSONE [Deltasone] 20 mg PO BID #20 tab 07/19/23 New Medications: Nirmatrelvir/Ritonavir [Paxlovid 150-100 mg Pack (Eua)] 3 tab PO BID #1 mily predniSONE [Deltasone] 20 mg PO BID #20 tab Guaifen W/Codeine Syrup [ROBITUSSIN A-C Syrup] 10 ml PO Q12HP PRN #150 ml PRN Reason: cough Physician Discharge Instructions: -DC IV and DC home -Follow-up with PCP in 1 to 2 weeks -Follow-up with pulmonary in 1 to 2 weeks -Please call Dr. Saleh at [phone] if any questions regarding hospital stay -Please call nursing station at [phone] if any nursing or medication questions -Return to the emergency room if symptoms worsen Diet: AHA Activity: Fall precautions Followup: NONE,NONE [UNKNOWN] -
[2023-07-20] MEDS ORDERED: METOPROLOL TAR 50 MG TAB ONE (11:31)
[2023-07-20] MEDS ORDERED: Levofloxacin 750mg IV 750 MG/150 ML BAG IV ONE (11:43)
[2023-07-20] MEDS ORDERED: METOPROLOL TAR 50 MG TAB PO ONE (12:00)
[2023-07-20 13:25] VITALS: TEMP 98
[2023-07-20] MEDS ORDERED: Levofloxacin 750mg IV 750 MG/150 ML BAG IV SCH (13:30)
--- NOTE | 2023-07-20 15:21 | EKG ---
Test Date: 2023-07-19 Test Time: 13:12:35 Molder: DEBBI MEASUREMENT RESULTS: Intervals: Rate: 92 MI: 196 QRSD: 106 QT: 396 QTc: 489 [place]: P: 49 MI: 196 QRS: 46 T: 30 INTERPRETIVE STATEMENTS: Normal sinus rhythm Normal ECG Compared to ECG 12/13/2022 03:45:57 No significant changes Electronically Signed On 07-20-23 15:19:48 LINE INSTALLER by Matheus Izaguirre
[2023-07-20 16:53] VITALS: BP 158/80
[2023-07-20 16:54] VITALS: BMI 34.2
[2023-07-20] MEDS ORDERED: HOME MED 1 EA UNK (Simvastatin [Simvastatin] 20 MG Tablet) PO SCH (21:00)
[2023-07-20] MEDS ORDERED: SUCRALFATE 1GM/10ML UCUP PO SCH (21:00)
[2023-07-20] MEDS ORDERED: QUETIAPINE 100MG TAB PO SCH (21:00)
[2023-07-20] MEDS ORDERED: DEUTETRABENAZINE 9 MG PO SCH (21:00)
[2023-07-21] MEDS ORDERED: LEVOTHYROXINE SOD 0.075 MG TAB PO SCH (06:30)
[2023-07-21] MEDS ORDERED: LEVOTHYROXINE SOD 0.1 MG TAB PO SCH (06:30)
[2023-07-21] MEDS ORDERED: PANTOPRAZOLE 40MG TABLET PO SCH (06:30)
[2023-07-21] MEDS ORDERED: HOME MED 1 EA UNK (Fluticasone/Umeclidin/Vilanter [Trelegy Ellipta 200-62.5-25] Blst.W.Dev IH SCH (09:00)
[2023-07-21] MEDS ORDERED: HOME MED 1 EA UNK (Omeprazole [Prilosec] 40 MG Capsule.Dr) PO SCH (09:00)
[2023-07-21] MEDS ORDERED: LOSARTAN POTASSIUM 50 MG TABLET PO SCH (09:00)
[2023-07-21] MEDS ORDERED: LEVOTHYROXINE SODIUM 175 MCG PO SCH (09:00)
[2023-07-21] MEDS ORDERED: SPIRONOLACTONE 25 MG TABLET PO SCH (09:00)
[2023-07-21] MEDS ORDERED: MONTELUKAST 10 MG TAB PO SCH (09:00)
[2023-07-21] MEDS ORDERED: AMLODIPINE 5 MG TAB PO SCH (09:00)
[2023-07-21] MEDS ORDERED: POLYETHYL GLY 3350 17 GM/DOSE PO SCH (09:00)
[2023-07-24] MEDS ORDERED: ATORVASTATIN 10 MG TAB PO SCH (09:00)
[2023-07-24] MEDS ORDERED: TRAZODONE 50 MG TABLET PO SCH (09:00)
== END 2023-07-20 18:05 | disposition home health service (06) | DRG 177 ==
LOC: ER 11:29 → ERHOLD 15:47
PROVIDERS: ADMIT Hospitalist; ATTEND Hospitalist
DX: U07.1 COVID-19 (principal); J96.01 Acute respiratory failure with hypoxia; J44.1 Chronic obstructive pulmonary disease with (acute) exacerbation; E87.1 Hypo-osmolality and hyponatremia; J45.901 Unspecified asthma with (acute) exacerbation; M19.90 Unspecified osteoarthritis, unspecified site; I10 Essential (primary) hypertension; E03.9 Hypothyroidism, unspecified; F41.9 Anxiety disorder, unspecified; E11.9 Type 2 diabetes mellitus without complications; D50.9 Iron deficiency anemia, unspecified; F31.9 Bipolar disorder, unspecified; K44.9 Diaphragmatic hernia without obstruction or gangrene; K27.9 Peptic ulcer, site unspecified, unspecified as acute or chronic, without hemorrhage or perforation; K21.9 Gastro-esophageal reflux disease without esophagitis; G43.909 Migraine, unspecified, not intractable, without status migrainosus; Z88.8 Allergy status to other drugs, medicaments and biological substances; Z90.49 Acquired absence of other specified parts of digestive tract; Z79.52 Long term (current) use of systemic steroids; Z86.73 Personal history of transient ischemic attack (TIA), and cerebral infarction without residual deficits; Z79.890 Hormone replacement therapy; Z79.899 Other long term (current) drug therapy; Z96.653 Presence of artificial knee joint, bilateral; Z90.710 Acquired absence of both cervix and uterus
CPT/HCPCS: 0241U; 36415; 71045; 80048; 80076; 81003; 83605; 83690; 83735; 83880; 84484; 85025; 85610; 87040; 93005; 93970; 94640; 99285; J1940; J2920; J2930; J3475; J7030; J7613; J7614; J7644; J8499

== ENCOUNTER 2023-11-16 14:26 | Emergency (ER) | payer OTHER ==
[2023-11-16 15:20] LABS: Absolute Eosinophils 0.1 K/uL (0-0.5); Absolute Lymphocytes (CBC) 1.4 K/uL (0.7-4.9); Absolute Monocytes 0.5 K/uL (0.1-1.3); Absolute Neutrophil 2.1 K/uL (1.8-8.0); Eosinophils % 2.6 % (0-4.4); Hematocrit 29.8 % (36.0-45.0); Lymphocytes % 34.2 % (15.3-44.8); MCH 32.8 pg (27.0-35.0); MCHC 33.4 g/dL (32.0-36.0); MCV 98.1 fL (80-100); MPV 8.6 fL (7.6-11.3); Monocytes % 12.3 % (3.3-12.3); Neutrophils % 49.9 % (41.7-73.7); Platelets 214 thou/uL (152-406); RBC Red Blood Cell Count 3.04 M/uL (3.86-4.86)
[2023-11-16 15:33] LABS: Albumin 3.1 g/dL (3.4-5.0); Anion Gap 10.6 mEq/L (5.0-15.0); Bilirubin Total 0.2 mg/dL (0.2-1.0); Globulin 3.2 g/dL (2.3-3.5); Potassium 3.6 mEq/L (3.5-5.1); Protein, Total 6.3 g/dL (6.4-8.2)
[2023-11-16] MEDS ORDERED: ONDANSETRON 4 MG/2 ML VIAL ONE (15:50)
[2023-11-16] MEDS ORDERED: DICYCLOMINE HCL 20 MG/2 ML AMP IM ONE (15:50)
[2023-11-16] MEDS ORDERED: FAMOTIDINE 20 MG/2 ML VIAL IV ONE (15:50)
[2023-11-16] MEDS ORDERED: NA CHLORIDE 0.9% 500 ML ONE (15:50)
[2023-11-16 16:01] LABS: Urine Bilirubin NEGATIVE (Negative); Urine Glucose NEGATIVE (Negative); Urine Protein NEGATIVE (Negative)
[2023-11-16 16:09] LABS: Specific Gravity 1.012 (1.005-1.030); Urine Blood Negative (Negative); Urine Clarity Clear (Clear); Urine Color Colorless (Yellow); Urine Ketones NEGATIVE (Negative); Urine Microscopic Reflex YN NO UMIC; Urine Nitrite NEGATIVE (Negative); Urine Urobilinogen Normal (Normal)
--- NOTE | 2023-11-16 16:09 | RAD REPORT ---
EXAM DESCRIPTION: RADChest Single View11/16/2023 3:44 pm CLINICAL HISTORY: abdominal pain COMPARISON: Chest Single View dated 07/19/2023; Chest Single View dated 12/13/2022; Chest Single View dated 05/28/2022; Chest Single View dated 05/15/2022 TECHNIQUE: Portable AP view of the chest. FINDINGS: The lungs are clear. No pneumothorax or effusion. The cardiomediastinal contours are unre markable. IMPRESSION: No acute cardiopulmonary process.
[2023-11-16] MEDS ORDERED: MORPHINE 4 MG/ML SYR ONE (17:06)
--- NOTE | 2023-11-16 17:29 | RAD REPORT ---
EXAM DESCRIPTION: CT - Abdomen Pelvis W Contrast - 11/16/2023 4:24 pm CLINICAL HISTORY: ABD PAIN COMPARISON: Abdomen Pelvis W Contrast dated 06/07/2022; Abdomen Pelvis W Contrast dated 02/18/2022 ; Abdomen Pelvis W Contrast dated 12/28/2021; Abdomen Pelvis W Contrast dated 10/08/2021 TECHNIQUE: Thin cut axial CT imaging of the abdomen and pelvis was performed following intravenous a dministration of 100 mL Isovue 300. Multiplanar reformats were generated and reviewed. All CT scans are performed using dose optimization technique as appropriate and may include automated exposure control or mA/KV adjustment according to patient size. FINDINGS: No suspicious findings in the lung bases. The liver, spleen, adrenal glands, and pancreas show no suspicious findings. Gallbladder was surgical ly removed. Symmetric renal function is seen with no hydronephrosis or suspicious renal mass. No dilated bowel loops or bowel wall thickening. No free air, free fluid or inflammatory stranding. M ild central mesenteric fat stranding, stable, and nonspecific. No hernia, mass or bulky lymphadenopat hy. The urinary bladder is without significant finding. Left sacral nerve stimulator in place. No suspicious bony findings. IMPRESSION: No acute intra-abdominal process.
--- NOTE | 2023-11-16 18:30 | ER ---
Nurse's Notes [facility] Name: Radha Santos Age: 63 yrs Sex: Female : 1960 Arrival Date: 11/16/2023 Time: 14:26 Bed 13 Private MD: Diagnosis: Abdominal pain, unspecified Presentation: 11/15 14:57 Chief complaint: EMS states: DIFFUSE ABDOMINAL PAIN x2 DAYS. Coronavirus screen: At bp this time, the client does not indicate any symptoms associated with coronavirus-19. Ebola Screen: No symptoms or risks identified at this time. Initial Sepsis Screen: Does the patient meet any 2 criteria? HR > 90 bpm. No. Patient's initial sepsis screen is negative. Does the patient have a suspected source of infection? No. Patient's initial sepsis screen is negative. Risk Assessment: Do you want to hurt yourself or someone else? Patient reports no desire to harm self or others. Onset of symptoms is unknown. Care prior to arrival: IV initiated. 20 GA, in the right forearm, Glucose check: 211. 14:57 Method Of Arrival: EMS: [facility] bp 14:57 Acuity: SAURAV 3 bp Triage Assessment: 14:58 General: Appears in no apparent distress. obese, Behavior is cooperative, appropriate bp for age, anxious. Pain: Complains of pain in abdomen. GI: Reports lower abdominal pain, upper abdominal pain. Historical: - Allergies: 14:58 miconazole; bp 14:58 skin cleanser combination no.17; bp - Home Meds: 14:58 None [Active]; bp - PMHx: 14:58 Anemia; Arthritis; Asthma; Anxiety; Back pain; Bipolar disorder; Bladder problem; CVA; bp depressive disorder; GERD; GI Bleed; hemorrhoids; hiatal hernia; Hypertensive disorder; hyperthyroidism; Migraine; peptic ulcer disease; - PSHx: 14:58 Bladder; section; Cholecystectomy; knee; surgery on nerve in right arm; wrist; bp - Immunization history:: Adult Immunizations up to date. - Infectious Disease History:: Denies. - Social history:: Smoking status: Patient denies any tobacco usage or history of. Screenin:[facility] ED Fall Risk Assessment (Adult) History of falling in the last 3 months, bp including since admission No falls in past 3 months (0 pts). Abuse screen: Denies threats or abuse. Denies injuries from another. Nutritional screening: No deficits noted. Tuberculosis screening: No symptoms or risk factors identified. Assessment: 14:59 General: SEE TRIAGE NOTE. bp 15:59 Reassessment: Patient appears in no apparent distress at this time. Patient is alert, bp oriented x 3, equal unlabored respirations, skin warm/dry/pink. 17:18 Reassessment: Patient appears in no apparent distress at this time. Patient is alert, bp oriented x 3, equal unlabored respirations, skin warm/dry/pink. 18:25 Reassessment: PO CHALLENGE SUCCESSFUL. bp Vital Signs: 14:57 BP 175 / 100; Pulse 111; Resp 16; Temp 98; Pulse Ox 100% ; bp 15:59 BP 140 / 75; Pulse 93; Resp 16; Pulse Ox 100% ; bp 17:17 BP 128 / 76; Pulse 92; Resp 16; Pulse Ox 100% ; bp 18:45 BP 131 / 75; Pulse 89; Resp 16; Pulse Ox 97% ; bp ED Course: 14:30 Patient arrived in ED. eb 14:32 Ethan Billingsley PA is PHCP. cp 14:32 Ethan Ray MD is Attending Physician. cp 14:36 Tai Sweeney, RIMA is Primary Nurse. bp 14:58 Triage completed. bp 14:58 Arm band placed on. bp 14:59 Patient has correct armband on for positive identification. bp 14:59 Maintain EMS IV. Dressing intact. Good blood return noted. Site clean \T\ dry. Gauge \T\ bp site: 20 R FA. 15:46 XRAY Chest (1 view) In Process Unspecified. EDMS 16:26 CT Abd/Pelvis - IV Contrast Only In Process Unspecified. EDMS 18:45 No provider procedures requiring assistance completed. IV discontinued, intact, bp bleeding controlled, No redness/swelling at site. Pressure dressing applied. Administered Medications: 15:00 Drug: Famotidine IVP 20 mg IVP once; dilute with 10 mL 0.9% NaCl; give over 2 minutes bp Route: IVP; Site: right forearm; 17:16 Follow up: Response: No adverse reaction bp 15:00 Drug: Ondansetron IVP 4 mg IVP once; over 2 minutes Route: IVP; Site: right forearm; bp 17:16 Follow up: Response: No adverse reaction bp 15:00 Drug: Dicyclomine IM 20 mg IM once Route: IM; Site: right deltoid; bp 17:17 Follow up: Response: No adverse reaction bp 15:00 Drug: NS 0.9% IV 500 ml IV at 125 ml/hr continuous Route: IV; Rate: 125 ml/hr; Site: bp right forearm; 17:17 Follow up: IV Status: Completed infusion; IV Intake: 500ml bp 17:16 Drug: morphine IVP or IV 4 mg IVP once over 4 mins Route: IVP; Infused Over: 4 mins; bp Site: right forearm; 17:17 Follow up: Response: No adverse reaction bp Medication: 14:59 VIS not applicable for this client. bp Intake: 17:17 IV: 500ml; Total: 500ml. bp Outcome: 18:29 Discharge ordered by MD. cp 18:45 Discharged to home ambulatory, with family, bp 18:45 Condition: stable 18:45 Discharge instructions given to patient, Instructed on discharge instructions, follow up and referral plans. medication usage, Demonstrated understanding of instructions, follow-up care, medications, Prescriptions given X 2, 18:46 Patient left the ED. bp Signatures: Dispatcher [employer] EDMS Ethan Billingsley PA PA cp Peltier, Brian, RN RN Justa Islas
--- NOTE | 2023-11-16 18:30 | EDPHYS ---
Physician Documentation [facility] Name: Radha Santos Age: 63 yrs Sex: Female : 1960 Arrival Date: 11/16/2023 Time: 14:26 Bed 13 Private MD: ED Physician Ethan Ray HPI: 11/15 14:40 This 63 yrs old Female presents to ER via Unassigned with complaints of Abdominal Pain. cp 14:40 The patient presents with abdominal pain that is diffuse. Onset: The symptoms/episode cp began/occurred yesterday. The symptoms do not radiate. Associated signs and symptoms: Pertinent negatives: blood in stools, chest pain, constipation, diarrhea, fever, vomiting, black colored stools. 14:40 The symptoms are described as achy. cp 14:40 Severity of pain: in the emergency department the pain is unchanged despite home cp interventions. Historical: - Allergies: 14:58 miconazole; bp 14:58 skin cleanser combination no.17; bp - Home Meds: 14:58 None [Active]; bp - PMHx: 14:58 Anemia; Arthritis; Asthma; Anxiety; Back pain; Bipolar disorder; Bladder problem; CVA; bp depressive disorder; GERD; GI Bleed; hemorrhoids; hiatal hernia; Hypertensive disorder; hyperthyroidism; Migraine; peptic ulcer disease; - PSHx: 14:58 Bladder; section; Cholecystectomy; knee; surgery on nerve in right arm; wrist; bp - Immunization history:: Adult Immunizations up to date. - Infectious Disease History:: Denies. - Social history:: Smoking status: Patient denies any tobacco usage or history of. ROS: 14:45 Constitutional: Negative for body aches, chills, fever, poor PO intake, cp 14:45 Abdomen/GI: Positive for abdominal pain, Negative for vomiting, diarrhea, constipation, cp black/tarry stool, rectal bleeding, Exam: 14:50 Constitutional: The patient appears in no acute distress, alert, awake, non-toxic, well cp developed, well nourished, 14:50 Head/Face: Normocephalic, atraumatic. cp 14:50 Eyes: Periorbital structures: appear normal, Conjunctiva: normal, no exudate, no injection, Sclera: no appreciated abnormality, Lids and lashes: appear normal, bilaterally, 14:50 ENT: External ear(s): are unremarkable, Nose: is normal, Mouth: Lips: moist, Oral mucosa: pink and intact, moist, Posterior pharynx: Airway: no evidence of obstruction, patent, 14:50 Chest/axilla: Inspection: normal, 14:50 Cardiovascular: Rate: tachycardic, Rhythm: regular, Edema: is not appreciated, JVD: is not appreciated, 14:50 Respiratory: the patient does not display signs of respiratory distress, Respirations: normal, no use of accessory muscles, no retractions, labored breathing, is not present, Breath sounds: are clear throughout, no decreased breath sounds, no stridor, no wheezing, 14:50 Abdomen/GI: Inspection: abdomen appears normal, Bowel sounds: active, all quadrants, Palpation: soft, in all quadrants, moderate abdominal tenderness, in all quadrants, rebound tenderness, is not appreciated, involuntary guarding, is not appreciated, 14:50 Back: CVA tenderness, is absent, 14:50 Neuro: Orientation: to person, place \T\ time. Mentation: is normal, Motor: moves all fours, strength is normal, Sensation: is normal, Vital Signs: 14:57 BP 175 / 100; Pulse 111; Resp 16; Temp 98; Pulse Ox 100% ; bp 15:59 BP 140 / 75; Pulse 93; Resp 16; Pulse Ox 100% ; bp 17:17 BP 128 / 76; Pulse 92; Resp 16; Pulse Ox 100% ; bp 18:45 BP 131 / 75; Pulse 89; Resp 16; Pulse Ox 97% ; bp MDM: 14:33 Patient medically screened. 15:00 Differential diagnosis: appendicitis, bowel obstruction, diverticulitis, gastritis, cp non-specific abd pain, pancreatitis, Peptic Ulcer Disease, Perf. Duodenal Ulcer, Perf. Gastric Ulcer, Pyelonephritis, Ureterolithiasis, urinary tract infection. 18:28 Data reviewed: vital signs, nurses notes, lab test result(s), radiologic studies, CT cp scan, and as a result, I will discharge patient. 18:28 I considered the following discharge prescriptions or medication management in the emergency department Medications were administered in the Emergency Department. See MAR. Counseling: I had a detailed discussion with the patient and/or guardian regarding the historical points, exam findings, and any diagnostic results supporting the discharge/admit diagnosis, lab results, radiology results, to return to the emergency department if symptoms worsen or persist or if there are any questions or concerns that arise at home. Response to treatment: the patient's symptoms have markedly improved after treatment. Special discussion: Based on the patient's Hx, exam, and Dx evaluation, there is no indication for emergent surgery or inpatient Tx. It is understood by the patient/guardian that if the Sx's persist or worsen they need to return immediately for re-evaluation. 11/15 14:35 Order name: CBC with Diff; Complete Time: 15:42 cp 11/15 16:13 Interpretation: Normal except: WBC 4.10; RBC 3.04; HGB 10.0; HCT 29.8. cp 11/15 14:35 Order name: CMP; Complete Time: 15:42 cp 11/15 16:14 Interpretation: Normal except: GLUC 188; GFR 63; AST 13; CA 8.2; TP 6.3; ALB 3.1; A/G cp 1.0. 11/15 14:35 Order name: Lipase; Complete Time: 15:42 cp 11/15 14:35 Order name: Urinalysis w/ reflexes; Complete Time: 16:13 cp 11/15 16:13 Interpretation: Reviewed. 11/15 14:35 Order name: XRAY Chest (1 view); Complete Time: 16:13 cp 11/15 16:13 Interpretation: Report review. 11/15 15:44 Order name: CT Abd/Pelvis - IV Contrast Only; Complete Time: 17:52 cp 11/15 17:53 Interpretation: Report reviewed. 11/15 14:35 Order name: IV Saline Lock; Complete Time: 15:01 cp 11/15 14:35 Order name: Labs collected and sent; Complete Time: 15:58 cp 11/15 17:53 Order name: PO challenge; Complete Time: 18:20 cp Administered Medications: 15:00 Drug: Famotidine IVP 20 mg IVP once; dilute with 10 mL 0.9% NaCl; give over 2 minutes bp Route: IVP; Site: right forearm; 17:16 Follow up: Response: No adverse reaction bp 15:00 Drug: Ondansetron IVP 4 mg IVP once; over 2 minutes Route: IVP; Site: right forearm; bp 17:16 Follow up: Response: No adverse reaction bp 15:00 Drug: Dicyclomine IM 20 mg IM once Route: IM; Site: right deltoid; bp 17:17 Follow up: Response: No adverse reaction bp 15:00 Drug: NS 0.9% IV 500 ml IV at 125 ml/hr continuous Route: IV; Rate: 125 ml/hr; Site: bp right forearm; 17:17 Follow up: IV Status: Completed infusion; IV Intake: 500ml bp 17:16 Drug: morphine IVP or IV 4 mg IVP once over 4 mins Route: IVP; Infused Over: 4 mins; bp Site: right forearm; 17:17 Follow up: Response: No adverse reaction bp Disposition Summary: 11/16/23 18:29 Discharge Ordered Notes: Location: Home cp Problem: new cp Symptoms: have improved cp Condition: Stable cp Diagnosis - Abdominal pain, unspecified cp Followup: cp - With: Private Physician - When: 2 - 3 days - Reason: Recheck today's complaints Discharge Instructions: - Discharge Summary Sheet cp - Abdominal Pain, Adult cp Forms: - Medication Reconciliation Form cp - Thank You Letter cp - Antibiotic Education cp - Prescription Opioid Use cp - Patient Portal Instructions cp - Leadership Thank You Letter cp Prescriptions: - Zofran 4 mg Oral Tablet - take 1 tablet ORAL route every 12 hours As needed; 20 tablet; Refills: 0, cp Product Selection Permitted - dicyclomine 20 mg Oral tablet - take 1 tablet ORAL route 4 times per day; 30 tablet; Refills: 0, Product cp Selection Permitted Signatures: Dispatcher [employer] Ethan Davis PA PA cp Tai Sweeney, RN RN bp
[2023-11-16 22:52] VITALS: BP 131/75; TEMP 98; O2SAT 97
== END 2023-11-16 18:46 | disposition home or self-care (01) ==
LOC: ER 14:26
DX: R10.9 Unspecified abdominal pain (principal); Z88.3 Allergy status to other anti-infective agents; Z88.8 Allergy status to other drugs, medicaments and biological substances
CPT/HCPCS: 96361; 85025; 36415; 81003; 83690; 80053; 74177; 71045; 96375; 96372; 96374; 99284; Q9967; J0500; J2405; J7040

== ENCOUNTER 2023-12-05 23:54 | Emergency (ER) | payer OTHER ==
[2023-12-06] MEDS ORDERED: ONDANSETRON 4 MG/2 ML VIAL ONE (01:27)
[2023-12-06] MEDS ORDERED: MORPHINE 4 MG/ML SYR ONE (01:27)
[2023-12-06] MEDS ORDERED: FAMOTIDINE 20 MG/2 ML VIAL IV ONE (01:27)
[2023-12-06 01:48] LABS: Absolute Eosinophils 0.1 K/uL (0-0.5); Absolute Lymphocytes (CBC) 1.8 K/uL (0.7-4.9); Absolute Monocytes 0.5 K/uL (0.1-1.3); Basophils % 0.6 % (0-1.3); Eosinophils % 2.8 % (0-4.4); Hematocrit 30.3 % (36.0-45.0); Hemoglobin 10.3 g/dL (12.0-15.0); Lymphocytes % 39.8 % (15.3-44.8); MCH 32.7 pg (27.0-35.0); MCHC 33.8 g/dL (32.0-36.0); MCV 96.7 fL (80-100); MPV 9.3 fL (7.6-11.3); Monocytes % 12.1 % (3.3-12.3); Neutrophils % 44.7 % (41.7-73.7); Platelets 190 thou/uL (152-406); RBC Red Blood Cell Count 3.13 M/uL (3.86-4.86); Red Cell Distribution Width 13.6 % (12.1-15.2)
[2023-12-06 01:58] LABS: Albumin 3.4 g/dL (3.4-5.0); Albumin/Globulin Ratio 1.1 (1.1-1.8); Anion Gap 8.9 mEq/L (5.0-15.0); Bilirubin Total 0.2 mg/dL (0.2-1.0); Globulin 3.2 g/dL (2.3-3.5); Potassium 3.9 mEq/L (3.5-5.1); Protein, Total 6.6 g/dL (6.4-8.2)
--- NOTE | 2023-12-06 05:07 | ER ---
Nurse's Notes [facility] Name: Radha Santos Age: 63 yrs Sex: Female : 1960 Arrival Date: 12/05/2023 Time: 23:54 Bed 4 Private MD: Diagnosis: Acute gastritis;Epigastric pain Presentation: 12/04 23:56 Chief complaint: Patient states: Abdominal pain that she has had for some time that got cm10 worse 1 day ago. Pt reports having a history of ulcers. Pt states, "I think the ulcers are back." Pt states that the pain is a burning pain and she is having some nausea. Coronavirus screen: Client denies travel out of the [place] in the last 14 days. At this time, the client does not indicate any symptoms associated with coronavirus-19. Ebola Screen: Patient denies travel to an Ebola-affected area in the 21 days before illness onset. No symptoms or risks identified at this time. Initial Sepsis Screen: Does the patient meet any 2 criteria? HR > 90 bpm. Does the patient have a suspected source of infection? No. Patient's initial sepsis screen is negative. Risk Assessment: Do you want to hurt yourself or someone else? Patient reports no desire to harm self or others. Onset of symptoms was December 05, 2023. 23:56 Method Of Arrival: EMS: [facility] 10 23:56 Acuity: SAURAV 3 cm10 Triage Assessment: 23:59 General: Appears in no apparent distress. comfortable, Behavior is calm, cooperative. cm10 Pain: Complains of pain in epigastric area Pain does not radiate. Pain currently is 8 out of 10 on a pain scale. Quality of pain is described as burning, Is continuous, chronic. Neuro: No deficits noted. Level of Consciousness is awake, alert, obeys commands, Oriented to person, place, time, situation. Respiratory: No deficits noted. Airway is patent Respiratory effort is even, unlabored, Respiratory pattern is regular, symmetrical. GI: Abdomen is tender to palpation in epigastric area Reports upper abdominal pain, nausea. Derm: No deficits noted. Skin is intact, Skin is pink, warm \\T\\ dry. Musculoskeletal: No deficits noted. Range of motion: intact in all extremities. Historical: - Allergies: 23:59 miconazole; cm10 23:59 skin cleanser combination no.17; cm10 - PMHx: 23:59 Anemia; Anxiety; Arthritis; Asthma; Back pain; Bipolar disorder; Bladder problem; CVA; cm10 depressive disorder; GERD; GI Bleed; hemorrhoids; hiatal hernia; Hypertensive disorder; hyperthyroidism; Migraine; peptic ulcer disease; - PSHx: 23:59 Bladder; section; Cholecystectomy; knee; surgery on nerve in right arm; wrist; cm10 - Immunization history:: Adult Immunizations up to date. - Infectious Disease History:: Denies. - Social history:: Smoking status: Patient denies any tobacco usage or history of. Screenin/02 00:50 [facility] ED Fall Risk Assessment (Adult) History of falling in the last 3 months, cm10 including since admission No falls in past 3 months (0 pts) Confusion or Disorientation No (0 pts) Intoxicated or Sedated No (0 pts) Impaired Gait No (0 pts) Mobility Assist Device Used No (0 pt) Altered Elimination No (0 pt) Score/Fall Risk Level 0 - 2 = Low Risk Oriented to surroundings, Maintained a safe environment, Hourly rounding (assess needs \\T\\ fall precautionary measures) done. Abuse screen: Denies threats or abuse. Denies injuries from another. Nutritional screening: No deficits noted. Tuberculosis screening: No symptoms or risk factors identified. Assessment: 01:35 Reassessment: Patient appears in no apparent distress at this time. Patient and/or cm10 family updated on plan of care and expected duration. Pain level reassessed. Patient is alert, oriented x 3, equal unlabored respirations, skin warm/dry/pink. 03:09 Reassessment: Patient appears in no apparent distress at this time. Patient and/or cm10 family updated on plan of care and expected duration. Pain level reassessed. Patient is alert, oriented x 3, equal unlabored respirations, skin warm/dry/pink. 05:51 Reassessment: Patient appears in no apparent distress at this time. Patient and/or bm8 family updated on plan of care and expected duration. Pain level reassessed. Patient is alert, oriented x 3, equal unlabored respirations, skin warm/dry/pink. Patient states feeling better. Patient states symptoms have improved. GI: Bowel sounds present X 4 quads. Patient currently denies nausea, pain, at this time. Vital Signs: 12/04 23:56 BP 151 / 87; Pulse 94; Resp 18; Temp 97.8(O); Pulse Ox 100% on R/A; Weight 99.79 kg cm10 (R); Height 5 ft. 7 in. ; Pain 8/10; 12/05 00:00 BP 135 / 58; Pulse 89; Resp 16; Pulse Ox 100% on R/A; cm10 00:30 BP 134 / 73; Pulse 85; Resp 18; Pulse Ox 100% ; cm10 01:00 BP 156 / 73; cm10 01:30 BP 142 / 72; Pulse 83; Resp 18; Pulse Ox 99% on R/A; cm10 02:00 BP 141 / 83; Pulse 84; Resp 18; Pulse Ox 100% on R/A; cm10 02:30 BP 135 / 79; Pulse 85; Resp 18; Pulse Ox 100% on R/A; cm10 03:00 BP 142 / 79; Pulse 84; Resp 18; Pulse Ox 100% on R/A; cm10 05:51 BP 138 / 75; Pulse 85; Resp 17; Temp 97.8; Pulse Ox 96% ; Pain 0/10; bm8 12/04 23:56 Body Mass Index 34.46 (99.79 kg, 170.18 cm) cm10 12/04 23:56 Pain Scale: Adult cm10 05:51 Pain Scale: Adult bm8 Bill Coma Score: 05:51 Eye Response: spontaneous(4). Motor Response: obeys commands(6). Verbal Response: bm8 oriented(5). Total: 15. ED Course: 12/04 23:55 Patient arrived in ED. sb4 23:55 Maddi Tatum PA-C is PHCP. sb4 23:56 Jeremy Penn MD is Attending Physician. sb4 23:56 Scarlet Lucas, RIMA is Primary Nurse. cm10 23:59 Triage completed. cm10 12/05 00:00 Arm band placed on Patient placed in an exam room, on a stretcher. cm10 00:15 CBC with Diff Sent. cm10 00:15 CMP Sent. cm10 00:15 Lipase Sent. cm10 00:15 Initial lab(s) drawn, by me, sent to lab. Missed attempt(s): 22 gauge in right forearm. cm10 Bleeding controlled, band aid applied, catheter tip intact. 00:20 Client placed on continuous cardiac and pulse oximetry monitoring. NIBP monitoring bm8 applied. 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 Pulse ox on. NIBP on. Door closed. Noise minimized. Visitors limited. Warm blanket given. Pillow given. Verbal reassurance given. 00:50 Patient has correct armband on for positive identification. Bed in low position. Call cm10 light in reach. Side rails up X2. 00:50 No provider procedures requiring assistance completed. cm10 01:34 Accessed peripheral vein via ultrasound, utilizing dynamic ultrasound technique Clean \\T\\ cm10 dry. Dressing intact. Good blood return. Flushes easily. 20G Left FA. 01:35 Lab(s) recollected, by me, sent to lab. cm10 02:25 CT Abd/Pelvis - IV Contrast Only In Process Unspecified. EDMS 05:06 Jeremy Penn MD is Referral Physician. sp4 05:55 Provided Education on: POST ER CARE. bm8 05:55 IV discontinued, intact, bleeding controlled, No redness/swelling at site. Pressure bm8 dressing applied. Administered Medications: 01:35 Drug: Famotidine IVP 20 mg IVP once; dilute with 10 mL 0.9% NaCl; give over 2 minutes cm10 Route: IVP; Site: left forearm; 03:45 Follow up: Response: No adverse reaction bm8 01:35 Drug: Ondansetron IVP 4 mg IVP once; over 2 minutes Route: IVP; Site: left forearm; cm10 03:45 Follow up: Response: No adverse reaction bm8 01:35 Drug: morphine IVP or IV 4 mg IVP once over 4 mins Route: IVP; Infused Over: 4 mins; cm10 Site: left forearm; 03:45 Follow up: Response: No adverse reaction bm8 05:49 Drug: HYDROcodone-acetaminophen PO 5 mg-325 mg 2 tabs PO once {Note: pt declined 2 bm8 pills, only wanted the one .} Route: PO; 05:50 Follow up: Response: Medication administered at discharge. bm8 05:49 Drug: MetoCLOPramide PO 10 mg PO once Route: PO; bm8 05:50 Follow up: Response: Medication administered at discharge. bm8 05:50 Drug: Sucralfate PO 1 grams PO once Route: PO; bm8 05:51 Follow up: Response: Medication administered at discharge. bm8 05:50 Drug: Pantoprazole PO 40 mg PO once Route: PO; bm8 05:50 Follow up: Response: Medication administered at discharge. bm8 Medication: 00:50 VIS not applicable for this client. cm10 Outcome: 05:07 Discharge ordered by . sp4 05:55 Discharged to home ambulatory, bm8 05:55 Discharged to home ambulatory, with family, 05:55 Condition: stable 05:55 Discharge instructions given to patient, family, Instructed on discharge instructions, follow up and referral plans. medication usage, safety practices, Demonstrated understanding of instructions, follow-up care, medications, Prescriptions given X 3, 05:57 Patient left the ED. bm8 Signatures: Dispatcher [employer] EDMS Maddi Tatum, PA-C PA-C Jeremy Liao MD MD sp4 Scarlet Lucas RN RN cm10 Emmanuel Alvarez RN RN bm8
--- NOTE | 2023-12-06 05:08 | EDPHYS ---
Physician Documentation [facility] Name: Radha Santos Age: 63 yrs Sex: Female : 1960 Arrival Date: 12/05/2023 Time: 23:54 Bed 4 Private MD: ED Physician Jeremy Penn HPI: 12/04 23:57 This 63 yrs old Female presents to ER via Unassigned with complaints of Abdominal Pain. sb4 23:57 The patient presents with abdominal pain in the epigastric area. Onset: The sb4 symptoms/episode began/occurred gradually. The symptoms do not radiate. Associated signs and symptoms: Pertinent positives: nausea, Pertinent negatives: blood in stools, vomiting. The patient has experienced similar episodes in the past, a few times. The patient has not recently seen a physician. Historical: - Allergies: 23:59 miconazole; cm10 23:59 skin cleanser combination no.17; cm10 - PMHx: 23:59 Anemia; Anxiety; Arthritis; Asthma; Back pain; Bipolar disorder; Bladder problem; CVA; cm10 depressive disorder; GERD; GI Bleed; hemorrhoids; hiatal hernia; Hypertensive disorder; hyperthyroidism; Migraine; peptic ulcer disease; - PSHx: 23:59 Bladder; section; Cholecystectomy; knee; surgery on nerve in right arm; wrist; cm10 - Immunization history:: Adult Immunizations up to date. - Infectious Disease History:: Denies. - Social history:: Smoking status: Patient denies any tobacco usage or history of. ROS: 23:57 Constitutional: Negative for fever, chills, and weight loss, sb4 23:57 Abdomen/GI: Positive for abdominal pain, nausea, 23:57 All other systems are negative, Exam: 23:57 Head/Face: Normocephalic, atraumatic. Eyes: Extra-ocular motions intact. Periorbital sb4 areas with no swelling, redness, or edema. ENT: Mucous membranes moist. Cardiovascular: Regular rate and rhythm with a normal S1 and S2. Respiratory: Lungs have equal breath sounds bilaterally, clear to auscultation and percussion. No rales, rhonchi or wheezes noted. No increased work of breathing, no retractions or nasal flaring. Skin: Warm, dry with normal turgor. Normal color with no rashes, no lesions, and no evidence of cellulitis. 23:57 Constitutional: The patient appears alert, awake, obese, pale, 23:57 Abdomen/GI: Inspection: abdomen appears normal, obese Bowel sounds: normal, Palpation: soft, moderate abdominal tenderness, in the epigastric area, right upper quadrant and left upper quadrant, Vital Signs: 23:56 BP 151 / 87; Pulse 94; Resp 18; Temp 97.8(O); Pulse Ox 100% on R/A; Weight 99.79 kg cm10 (R); Height 5 ft. 7 in. ; Pain 8/10; 12/05 00:00 BP 135 / 58; Pulse 89; Resp 16; Pulse Ox 100% on R/A; cm10 00:30 BP 134 / 73; Pulse 85; Resp 18; Pulse Ox 100% ; cm10 01:00 BP 156 / 73; cm10 01:30 BP 142 / 72; Pulse 83; Resp 18; Pulse Ox 99% on R/A; cm10 02:00 BP 141 / 83; Pulse 84; Resp 18; Pulse Ox 100% on R/A; cm10 02:30 BP 135 / 79; Pulse 85; Resp 18; Pulse Ox 100% on R/A; cm10 03:00 BP 142 / 79; Pulse 84; Resp 18; Pulse Ox 100% on R/A; cm10 05:51 BP 138 / 75; Pulse 85; Resp 17; Temp 97.8; Pulse Ox 96% ; Pain 0/10; bm8 12/04 23:56 Body Mass Index 34.46 (99.79 kg, 170.18 cm) cm10 12/04 23:56 Pain Scale: Adult cm10 05:51 Pain Scale: Adult bm8 Bill Coma Score: 05:51 Eye Response: spontaneous(4). Motor Response: obeys commands(6). Verbal Response: bm8 oriented(5). Total: 15. MDM: 12/04 23:56 Patient medically screened. sb4 23:57 Differential diagnosis: cholecystitis, Cholelithiasis, gastritis, pancreatitis, Peptic sb4 Ulcer Disease. 12/05 04:59 ED course: PROCEDURE: CTAbdomen and Pelvis With Intravenous Contrast CLINICAL sp4 INDICATION: The patient is 63 years old and is Female; Abdominal pain TECHNIQUE: Axial computed tomography images of the abdomen and pelvis with intravenous contrast. Sagittal and coronal reformatted images were created and reviewed. This CT exam was performed using one or more of the following dose reduction techniques: automated exposure control, adjustment of the mA and/or kV according to patient size, and/or use of iterative reconstruction technique. COMPARISON: CTAbdomen and Pelvis 11/16/2023 FINDINGS: LUNG BASES: Unremarkable No mass. No consolidation. ABDOMEN: LIVER: Unremarkable No mass. GALLBLADDER AND BILE DUCTS: Cholecystectomy clips noted in the gallbladder fossa. No greater than expected ductal dilatation. PANCREAS: Unremarkable No mass. No ductal dilation. SPLEEN: Unremarkable No splenomegaly. ADRENALS: Unremarkable No mass. KIDNEYS AND URETERS: Unremarkable No solid mass. No hydronephrosis. STOMACH AND BOWEL: Hepatic flexure of the colon is interpositioned between the adjacent anterior abdominal wall and hepatic parenchyma, consistent with Chilaiditi sign. Of doubtful clinical significance in the absence of symptoms. No obstruction. No mucosal thickening. PELVIS: APPENDIX: No findings to suggest acute appendicitis. BLADDER: Unremarkable No mass. REPRODUCTIVE: Hysterectomy. ABDOMEN and PELVIS: INTRAPERITONEAL SPACE: No free air. No significant fluid collection. BONES/JOINTS: Multilevel spondylosis. No acute fracture. No dislocation. SOFT TISSUES: Small intramuscular lipoma demonstrated within the inferior right gluteus james. VASCULATURE: Mild calcified atherosclerosis of the abdominal aorta without aneurysmal dilatation. LYMPH NODES: Mild mesenteric fat stranding and slightly prominent but not grossly enlarged mesenteric lymph nodes, unchanged from prior exams. TUBES, LINES AND DEVICES: Neurostimulator device redemonstrated in the low left flank subcutaneous tissues with leads terminating along the posterior left lateral pelvic sidewall. IMPRESSION: 1. No acute abnormality of the abdomen or pelvis. 2. Mild mesenteric fat stranding and slightly prominent but not grossly enlarged mesenteric lymph nodes, unchanged from prior 3. Additional nonacute findings as above. 05:08 Differential Diagnosis altered mental status, sepsis, flu. Data reviewed: vital signs, sp4 nurses notes, EMS record, lab test result(s), radiologic studies, CT scan. ED course: Will be advised to follow-up with her [facility] on [place]. 12/04 23:56 Order name: CBC with Diff; Complete Time: 04:00 sb4 12/04 23:56 Order name: CMP; Complete Time: 04:00 sb4 12/04 23:56 Order name: Lipase; Complete Time: 04:00 sb4 12/04 23:56 Order name: CT Abd/Pelvis - IV Contrast Only; Complete Time: 13:20 sb4 12/04 23:56 Order name: IV Saline Lock; Complete Time: 01:24 sb4 12/04 23:56 Order name: Labs collected and sent; Complete Time: 00:15 sb4 Administered Medications: 01:35 Drug: Famotidine IVP 20 mg IVP once; dilute with 10 mL 0.9% NaCl; give over 2 minutes cm10 Route: IVP; Site: left forearm; 03:45 Follow up: Response: No adverse reaction bm8 01:35 Drug: Ondansetron IVP 4 mg IVP once; over 2 minutes Route: IVP; Site: left forearm; cm10 03:45 Follow up: Response: No adverse reaction bm8 01:35 Drug: morphine IVP or IV 4 mg IVP once over 4 mins Route: IVP; Infused Over: 4 mins; cm10 Site: left forearm; 03:45 Follow up: Response: No adverse reaction bm8 05:49 Drug: HYDROcodone-acetaminophen PO 5 mg-325 mg 2 tabs PO once {Note: pt declined 2 bm8 pills, only wanted the one .} Route: PO; 05:50 Follow up: Response: Medication administered at discharge. bm8 05:49 Drug: MetoCLOPramide PO 10 mg PO once Route: PO; bm8 05:50 Follow up: Response: Medication administered at discharge. bm8 05:50 Drug: Sucralfate PO 1 grams PO once Route: PO; bm8 05:51 Follow up: Response: Medication administered at discharge. bm8 05:50 Drug: Pantoprazole PO 40 mg PO once Route: PO; bm8 05:50 Follow up: Response: Medication administered at discharge. bm8 Disposition: 05:06 Co-signature as Attending Physician, Jeremy Penn MD I agree with the assessment sp4 and plan of care. I reviewed the patient's care provided by Advanced Practice Provider \T\ agree w/ the diagnosis \T\ care plan. I personally saw the pt \T\ performed a substantive portion of the visit, incldng all aspects of the (History/Exam/Medical Decision Making). 13:20 Chart complete. sb4 Disposition Summary: 12/06/23 05:07 Discharge Ordered Notes: Location: Home sp4 Problem: new sp4 Symptoms: have improved sp4 Condition: Stable sp4 Diagnosis - Acute gastritis sp4 - Epigastric pain sp4 Followup: sp4 - With: Jeremy Penn MD - When: 7 - 10 days - Reason: Recheck today's complaints Discharge Instructions: - Discharge Summary Sheet sp4 - Gastritis, Adult, [id number] sp4 Forms: - Patient Portal Instructions sp4 Prescriptions: - Carafate 1 gram Oral Tablet - take 1 tablet ORAL route 4 times per day take on an empty stomach, beginning on sp4 waking and last dose at bedtime; 100 tablet; Refills: 0, Product Selection Permitted - Protonix 40 mg Oral Tablet - take 1 tablet ORAL route once daily; 30 tablet; Refills: 0, Product Selection sp4 Permitted - dicyclomine 20 mg Oral tablet - take 1 tablet ORAL route 3 times per day; 30 tablet; Refills: 0, Product sp4 Selection Permitted Signatures: Dispatcher [employer] EDMS Maddi Tatum PA-C PAAliza sb4 Jeremy Penn MD MD sp4 Scarlet Lucas, RN RN cm10 Emmanuel Alvarez RN RN bm8 Corrections: (The following items were deleted from the chart) 12/04 23:57 23:57 CBC+H.LAB.BRZ ordered. EDMS EDMS 23:57 23:57 COMPREHENSIVE METABOLIC PANEL+C.LAB.BRZ ordered. EDMS EDMS 23:57 23:57 LIPASE+C.LAB.BRZ ordered. EDMS EDMS 23:57 23:57 Abdomen Pelvis W Con+CT.RAD.BRZ ordered. EDMS EDMS
[2023-12-06] MEDS ORDERED: HYDROCODONE/APAP 5/325 MG TAB ONE (05:39)
[2023-12-06] MEDS ORDERED: PANTOPRAZOLE 40MG TABLET PO ONE (05:39)
[2023-12-06] MEDS ORDERED: METOCLOPRAMIDE 5 MG TAB ONE (05:39)
[2023-12-06] MEDS ORDERED: SUCRALFATE 1GM/10ML UCUP ONE (05:40)
[2023-12-06 06:22] VITALS: BP 138/75; TEMP 97.8; O2SAT 96
--- NOTE | 2023-12-06 11:48 | RAD REPORT ---
EXAM DESCRIPTION: CT Abdomen and Pelvis With Intravenous Contrast CLINICAL HISTORY: The patient is 63 years old and is Female; Abdominal pain TECHNIQUE: Axial computed tomography images of the abdomen and pelvis with intravenous contrast. S agittal and coronal reformatted images were created and reviewed. This CT exam was performed using one or more of the following dose reduction techniques: automated exposure control, adjustment of t he mA and/or kV according to patient size, and/or use of iterative reconstruction technique. COMPARISON: CT Abdomen and Pelvis 11/16/2023 FINDINGS: LUNG BASES: Unremarkable No mass. No consolidation. ABDOMEN: LIVER: Unremarkable No mass. GALLBLADDER AND BILE DUCTS: Cholecystectomy clips noted in the gallbladder fossa. No greater than e xpected ductal dilatation. PANCREAS: Unremarkable No mass. No ductal dilation. SPLEEN: Unremarkable No splenomegaly. ADRENALS: Unremarkable No mass. KIDNEYS AND URETERS: Unremarkable No solid mass. No hydronephrosis. STOMACH AND BOWEL: Hepatic flexure of the colon is interpositioned between the adjacent anterior ab dominal wall and hepatic parenchyma, consistent with Chilaiditi sign. Of doubtful clinical significan ce in the absence of symptoms. No obstruction. No mucosal thickening. PELVIS: APPENDIX: No findings to suggest acute appendicitis. BLADDER: Unremarkable No mass. REPRODUCTIVE: Hysterectomy. ABDOMEN and PELVIS: INTRAPERITONEAL SPACE: No free air. No significant fluid collection. BONES/JOINTS: Multilevel spondylosis. No acute fracture. No dislocation. SOFT TISSUES: Small intramuscular lipoma demonstrated within the inferior right gluteus james. VASCULATURE: Mild calcified atherosclerosis of the abdominal aorta without aneurysmal dilatation. LYMPH NODES: Mild mesenteric fat stranding and slightly prominent but not grossly enlarged mesenter ic lymph nodes, unchanged from prior exams. TUBES, LINES AND DEVICES: Neurostimulator device redemonstrated in the low left flank subcutaneous tissues with leads terminating along the posterior left lateral pelvic sidewall. IMPRESSION: 1. No acute abnormality of the abdomen or pelvis. 2. Mild mesenteric fat stranding and slightly prominent but not grossly enlarged mesenteric lymph n odes, unchanged from prior exams. 3. Additional nonacute findings as above. Electronically signed by: Amos Angelo MD 12/06/2023 04:53 AM CDT Due to temporary technical issues with the PACS/Fluency reporting system, reports are being signed by the in house radiologist without review as a courtesy to ensure prompt reporting. The interpreting r lornaogist is fully responsible for the content of the report.
== END 2023-12-06 05:57 | disposition home or self-care (01) ==
LOC: ER 23:54
DX: K29.00 Acute gastritis without bleeding (principal); Z88.8 Allergy status to other drugs, medicaments and biological substances
CPT/HCPCS: 36415; 74177; 80053; 83690; 85025; 96374; 96375; 99285; J2405; Q9967

== ENCOUNTER 2024-04-16 11:41 | Emergency (ER) | payer OTHER ==
[2024-04-16 12:24] LABS: PT Prothrombin Time 10.5 SECONDS (9.4-12.5); Protime INR 0.94
[2024-04-16 12:25] LABS: Absolute Eosinophils 0.3 K/uL (0-0.5); Absolute Lymphocytes (CBC) 1.4 K/uL (0.7-4.9); Absolute Monocytes 0.7 K/uL (0.1-1.3); Basophils % 0.7 % (0-1.3); Eosinophils % 4.1 % (0-4.4); Hemoglobin 9.7 g/dL (12.0-15.0); Lymphocytes % 21.3 % (15.3-44.8); MCH 32.5 pg (27.0-35.0); MCHC 32.4 g/dL (32.0-36.0); MPV 8.8 fL (7.6-11.3); Monocytes % 11.1 % (3.3-12.3); Neutrophils % 62.8 % (41.7-73.7); Platelets 258 thou/uL (152-406); Red Cell Distribution Width 15.1 % (12.1-15.2)
[2024-04-16 12:38] LABS: ALT/SGPT 21 U/L (13-56); AST/SGOT 11 U/L (15-37); Albumin/Globulin Ratio 0.8 (1.1-1.8); Alkaline Phosphatase 74 U/L (45-117); Anion Gap 11.7 mEq/L (5.0-15.0); BUN Blood Urea Nitrogen 11 mg/dL (7-18); Bicarbonate 26 mEq/L (21-32); Bilirubin Direct < 0.2 mg/dL (0-0.2); Bilirubin Total 0.2 mg/dL (0.2-1.0); Globulin 3.6 g/dL (2.3-3.5); Glomerular Filtration Rate 75 ml/min (=/>90); Glucose Level 137 mg/dL (74-106); Lipase 33 U/L (13-75); Magnesium 1.8 mg/dL (1.6-2.4); NT PRO-BNP 151 pg/mL (<125); Potassium 4.7 mEq/L (3.5-5.1); Protein, Total 6.6 g/dL (6.4-8.2); Sodium Level 137 mEq/L (136-145); Troponin High Sensitivity < 3.0 pg/mL (<58.9)
--- NOTE | 2024-04-16 13:00 | RAD REPORT ---
EXAM DESCRIPTION: CT - Stone Protocol - 04/16/2024 12:13 pm CLINICAL HISTORY: Flank pain. Fever;Flank pain COMPARISON: Abdomen Pelvis W Contrast dated 12/06/2023; Abdomen Pelvis W Contrast dated 11/16/2023 TECHNIQUE: Axial images were obtained without oral or IV contrast. Lack of contrast limits solid org an and vascular assessment. The [id number] spans the entirety of the system partially obscuring uppermost abdomen and lung bases. Coronal reformatted images were obtained and reviewed. All CT scans are performed using dose optimization technique as appropriate and may include automated exposure control or mA/KV adjustment according to patient size. FINDINGS: The lower lung [place] are clear. Cholecystectomy clips. Imaged portions of the liver and spleen show no suspicious findings on non-contrast imaging. The panc reas and adrenal glands are normal. Mild mesenteric edema is visualized with several small bowel mese nteric lymph nodes noted. This may indicate mild mesenteritis. No urinary tract stones or obstructive uropathy. No bowel obstruction, free air, free fluid or abscess. The appendix is not identified as a discrete s tructure, however, no secondary findings of appendicitis are identified. Mild lumbar degenerative changes. IMPRESSION: No urinary tract stones or obstructive uropathy. Mild nonspecific mesenteritis is possible.
[2024-04-16] MEDS ORDERED: NA CHLORIDE 0.9% 1,000 ML ONE (13:30)
[2024-04-16] MEDS ORDERED: Meropenem 1000 MG/VIAL IV ONE (13:30)
[2024-04-16] MEDS ORDERED: MORPHINE 4 MG/ML SYR ONE ×2 (13:30→16:09)
[2024-04-16] MEDS ORDERED: ONDANSETRON 4 MG/2 ML VIAL ONE (13:30)
--- NOTE | 2024-04-16 13:30 | RAD REPORT ---
EXAM DESCRIPTION: Nichole Single View04/16/2024 1:17 pm CLINICAL HISTORY: Cough COMPARISON: November 1999 FINDINGS: The lungs appear clear of acute infiltrate. The heart is normal size IMPRESSION: No acute abnormalities displayed
[2024-04-16 13:40] LABS: Specific Gravity 1.013 (1.005-1.030); Sqamous Epithelial <5 /HPF (None Seen); Urine Bacteria None Seen /HPF (<20); Urine Bilirubin NEGATIVE (Negative); Urine Blood Negative (Negative); Urine Clarity Clear (Clear); Urine Color Light-Yellow (Yellow); Urine Culture Reflex Order NOT NEEDED; Urine Glucose NEGATIVE (Negative); Urine Ketones NEGATIVE (Negative); Urine Microscopic Reflex YN ORDER UMIC; Urine Nitrite NEGATIVE (Negative); Urine Protein NEGATIVE (Negative); Urine RBC <5 /HPF (None Seen); Urine Urobilinogen Normal (Normal); Urine WBC None Seen /HPF (<5); Urine pH 6.5 (5.0-7.0)
[2024-04-16] MEDS ORDERED: metroNIDAZOLE 500 MG TABLET ONE (15:50)
[2024-04-16] MEDS ORDERED: CIPROFLOXACIN HCL 500 MG TAB ONE (15:51)
--- NOTE | 2024-04-16 16:20 | EDPHYS ---
Physician Documentation [facility] Name: Radha Santos Age: 63 yrs Sex: Female : 1960 Arrival Date: 04/16/2024 Time: 11:41 Bed 7 Private MD: ED Physician Ethan Ray HPI: 04/16 15:28 This 63 yrs old Female presents to ER via EMS with complaints of Flank Pain. itz 15:28 The patient complains of pain in the left low back and left mid back. The pain does not itz radiate. Modifying factors: The symptoms are alleviated by nothing. the symptoms are aggravated by movement, palpation/percussion. Severity of pain: At its worst the pain was moderate. The patient has not experienced similar symptoms in the past. Historical: - Allergies: 11:54 miconazole; cm10 11:54 skin cleanser combination no.17; cm10 - PMHx: 11:54 Anemia; Back pain; CVA; hemorrhoids; hiatal hernia; hyperthyroidism; Migraine; peptic cm10 ulcer disease; Kidney stone; - PSHx: 11:54 Bladder; section; Cholecystectomy; knee; surgery on nerve in right arm; wrist; cm10 - Immunization history:: Adult Immunizations up to date. - Infectious Disease History:: Denies. - Social history:: Smoking status: Patient denies any tobacco usage or history of. ROS: 15:29 Constitutional: Negative for fever, chills, and weight loss, Eyes: Negative for injury, itz pain, redness, and discharge, ENT: Negative for injury, pain, and discharge, Neck: Negative for injury, pain, and swelling, Cardiovascular: Negative for chest pain, palpitations, and edema, Respiratory: Negative for shortness of breath, cough, wheezing, and pleuritic chest pain, Back: Negative for injury and pain, : Negative for injury, bleeding, discharge, and swelling, MS/Extremity: Negative for injury and deformity, Skin: Negative for injury, rash, and discoloration, Neuro: Negative for headache, weakness, numbness, tingling, and seizure, Psych: Negative for depression, anxiety, suicide ideation, homicidal ideation, and hallucinations, Allergy/Immunology: Negative for hives, rash, and allergies, Endocrine: Negative for neck swelling, polydipsia, polyuria, polyphagia, and marked weight changes, Hematologic/Lymphatic: Negative for swollen nodes, abnormal bleeding, and unusual bruising, 15:29 Abdomen/GI: Positive for abdominal pain, of the posterior aspect of left lateral abdomen, anterior aspect of left lateral abdomen, left upper quadrant and left lower quadrant, Exam: 15:29 Constitutional: This is a well developed, well nourished patient who is awake, alert, itz and in no acute distress. Head/Face: Normocephalic, atraumatic. Eyes: Pupils equal round and reactive to light, extra-ocular motions intact. Lids and lashes normal. Conjunctiva and sclera are non-icteric and not injected. Cornea within normal limits. Periorbital areas with no swelling, redness, or edema. ENT: Nares patent. No nasal discharge, no septal abnormalities noted. Tympanic membranes are normal and external auditory canals are clear. Oropharynx with no redness, swelling, or masses, exudates, or evidence of obstruction, uvula midline. Mucous membranes moist. Neck: Trachea midline, no thyromegaly or masses palpated, and no cervical lymphadenopathy. Supple, full range of motion without nuchal rigidity, or vertebral point tenderness. No Meningismus. Chest/axilla: Normal chest wall appearance and motion. Nontender with no deformity. No lesions are appreciated. Cardiovascular: Regular rate and rhythm with a normal S1 and S2. No gallops, murmurs, or rubs. Normal PMI, no JVD. No pulse deficits. Respiratory: Lungs have equal breath sounds bilaterally, clear to auscultation and percussion. No rales, rhonchi or wheezes noted. No increased work of breathing, no retractions or nasal flaring. Back: No spinal tenderness. No costovertebral tenderness. Full range of motion. Female : Normal external genitalia. Skin: Warm, dry with normal turgor. Normal color with no rashes, no lesions, and no evidence of cellulitis. MS/ Extremity: Pulses equal, no cyanosis. Neurovascular intact. Full, normal range of motion. Neuro: Awake and alert, GCS 15, oriented to person, place, time, and situation. Cranial nerves II-XII grossly intact. Motor strength 5/5 in all extremities. Sensory grossly intact. Cerebellar exam normal. Normal gait. Psych: Awake, alert, with orientation to person, place and time. Behavior, mood, and affect are within normal limits. 15:29 Abdomen/GI: Inspection: distension, that is moderate, in the posterior aspect of left lateral abdomen, anterior aspect of left lateral abdomen, left upper quadrant and left lower quadrant, Liver: no appreciated palpable abnormalities, Hernia: not appreciated, Vital Signs: 11:52 BP 147 / 75; Pulse 95; Resp 16; Temp 97.9(O); Pulse Ox 94% on R/A; Weight 96.16 kg; cm10 Height 5 ft. 7 in. ; Pain 8/10; 13:37 BP 157 / 73; Pulse 89; Resp 16; Pulse Ox 98% ; bp 14:52 BP 129 / 71; Pulse 85; Resp 16; Pulse Ox 99% ; bp 16:00 BP 160 / 86; Pulse 92; Resp 16; Pulse Ox 95% ; cm10 11:52 Body Mass Index 33.20 (96.16 kg, 170.18 cm) cm10 11:52 Pain Scale: Adult cm10 MDM: 11:57 Patient medically screened. [facility] 15:30 Differential diagnosis: nephrolithiasis, pyelonephritis, UTI, diverticulitis, itz pancreatitis, appendicitis, bowel obstruction, diverticulitis, gastritis, non-specific abd pain, pancreatitis, Peptic Ulcer Disease, Perf. Duodenal Ulcer, Perf. Gastric Ulcer, Peritonitis, Pyelonephritis, Ureterolithiasis, urinary tract infection. Data reviewed: vital signs, nurses notes, lab test result(s), radiologic studies, CT scan. Consideration of Admission/Observation Escalation of care including admission/observation considered. I considered the following discharge prescriptions or medication management in the emergency department Medications were administered in the Emergency Department. See MAR. Independent interpretation of the following test(s) in the Emergency Department CT Scan: My interpretation is CT AB/ PEL WITH AND WITH OUT. Test considered but Not performed: Ultrasound NO ABD USG. Historians other than the Patient: HI WELL INFORMED. Care significantly affected by the following chronic conditions: Hypertension, Obesity, BACK PAIN, CVA, HEMORRHOIDS, MIGRAINES, PUD, ANEMIA. 04/16 11:59 Order name: Basic Metabolic Panel; Complete Time: 15:20 [facility] 04/16 11:59 Order name: CBC with Diff; Complete Time: 15:20 [facility] 04/16 11:59 Order name: LFT's; Complete Time: 15:20 [facility] 04/16 11:59 Order name: Magnesium; Complete Time: 15:20 [facility] 04/16 11:59 Order name: NT PRO-BNP; Complete Time: 15:20 [facility] 04/16 11:59 Order name: PT-INR; Complete Time: 15:20 [facility] 04/16 11:59 Order name: Troponin HS; Complete Time: 15:20 [facility] 04/16 11:59 Order name: Lipase; Complete Time: 15:20 [facility] 04/16 11:59 Order name: Blood Culture Adult (2) [facility] 04/16 11:59 Order name: Lactate w/ 2H reflex if indic.; Complete Time: 15:20 [facility] 04/16 11:59 Order name: Urinalysis w/ reflexes; Complete Time: 15:20 [facility] 04/16 11:59 Order name: Urine Culture [facility] 04/16 11:59 Order name: XRAY Chest (1 view); Complete Time: 15:20 [facility] 04/16 11:59 Order name: CT Stone Protocol; Complete Time: 15:20 [facility] 04/16 15:28 Order name: CT Abd/Pelvis - IV Contrast Only [facility] 04/16 11:59 Order name: Cardiac monitoring; Complete Time: 13:37 [facility] 04/16 11:59 Order name: EKG - Nurse/Tech; Complete Time: 13:37 [facility] 04/16 11:59 Order name: IV Saline Lock; Complete Time: 13:37 [facility] 04/16 11:59 Order name: Labs collected and sent; Complete Time: 13:37 [facility] 04/16 11:59 Order name: O2 Per Protocol; Complete Time: 12:41 [facility] 04/16 11:59 Order name: O2 Sat Monitoring; Complete Time: 12:41 [facility] Administered Medications: 13:36 Drug: NS 0.9% IV 1000 ml IV at 1 bolus Per protocol; 1000 mL bolus Route: IV; Rate: 1 bp bolus; Site: left upper arm; 16:51 Follow up: Response: No adverse reaction; IV Status: Completed infusion; IV Intake: cm10 1000ml 13:36 Drug: Ondansetron IVP 4 mg IVP once; over 2 minutes Route: IVP; Site: left upper arm; bp 16:51 Follow up: Response: No adverse reaction cm10 13:37 Drug: Meropenem IV 1 grams IV at per protocol once; (mix in NS 100 mL) Route: IV; Rate: bp per protocol; Site: left upper arm; 16:51 Follow up: Response: No adverse reaction; IV Status: Completed infusion; IV Intake: cm10 100ml 13:37 Drug: morphine IVP or IV 4 mg IVP once over 4 mins Route: IVP; Infused Over: 4 mins; bp Site: left upper arm; 16:51 Follow up: Response: No adverse reaction cm10 16:01 Drug: Ciprofloxacin PO 500 mg PO once Route: PO; bp 16:51 Follow up: Response: No adverse reaction cm10 16:01 Drug: metroNIDAZOLE PO 500 mg PO once Route: PO; bp 16:51 Follow up: Response: No adverse reaction cm10 16:14 Drug: morphine IVP or IV 4 mg IVP once over 4 mins Route: IVP; Infused Over: 4 mins; bp Site: left upper arm; 16:50 Follow up: Response: No adverse reaction cm10 Disposition Summary: 04/16/24 16:20 Discharge Ordered Notes: Location: Home itz Problem: new itz Symptoms: have improved itz Condition: Stable itz Diagnosis - Abdominal tenderness itz - Nonspecific mesenteric lymphadenitis - MESENTERITIS itz Followup: itz - With: Private Physician - When: 2 - 3 days - Reason: Recheck today's complaints, Continuance of care, Re-evaluation by your physician Discharge Instructions: - Discharge Summary Sheet itz - Abdominal Pain, Adult itz - Abdominal Pain, Adult, [id number] itz - Mesenteric Adenitis, Adult [facility] Forms: - Medication Reconciliation Form [facility] - Antibiotic Education itz - Prescription Opioid Use itz - Patient Portal Instructions [facility] - Leadership Thank You Letter [facility] Prescriptions: - ondansetron 4 mg Oral Tablet,disintegrating - take 1 tablet ORAL route every 8 hours as needed for nausea and vomiting; 20 itz tablet; Refills: 0, Product Selection Permitted - Flagyl 500 mg Oral Tablet - take 1 tablet ORAL route every 8 hours for 10 days; 30 tablet; Refills: 0, [facility] Product Selection Permitted - Cipro 500 mg Oral Tablet - take 1 tablet ORAL route every 12 hours for 7 days; 14 tablet; Refills: 0, [facility] Product Selection Permitted - dicyclomine 20 mg Oral tablet - take 1 tablet ORAL route 4 times per day; 28 tablet; Refills: 0, Product itz Selection Permitted Signatures: Dispatcher [employer] Ethan Dixon MD MD cha Peltier, Brian RN RN bp Lance, Scarlet, RN RN cm10 Corrections: (The following items were deleted from the chart) 11:59 11:59 BASIC METABOLIC PANEL+C.LAB.BRZ ordered. EDMS EDMS 11:59 11:59 CBC+H.LAB.BRZ ordered. EDMS EDMS 11:59 11:59 HEPATIC FUNCTION+C.LAB.BRZ ordered. EDMS EDMS 11:59 11:59 MAGNESIUM+C.LAB.BRZ ordered. EDMS EDMS 11:59 11:59 PROBNP+C.LAB.BRZ ordered. EDMS EDMS 11:59 11:59 PROTIME (+INR)+COAG.LAB.BRZ ordered. EDMS EDMS 11:59 11:59 Troponin High Sensitivity+C.LAB.BRZ ordered. EDMS EDMS 11:59 11:59 LIPASE+C.LAB.BRZ ordered. EDMS EDMS 11:59 11:59 BLOOD CULTURE*+BA.LAB.BRZ ordered. EDMS EDMS 11:59 11:59 LACTATE+C.LAB.BRZ ordered. EDMS EDMS 11:59 11:59 Urinalysis+U.LAB.BRZ ordered. EDMS EDMS 11:59 11:59 Urine Culture+BA.LAB.BRZ ordered. EDMS EDMS 11:59 11:59 Chest Single View+RAD.RAD.BRZ ordered. EDMS EDMS 12:00 12:00 Stone Protocol+CT.RAD.BRZ ordered. EDMS EDMS
--- NOTE | 2024-04-16 16:20 | ER ---
Nurse's Notes [facility] Name: Radha Santos Age: 63 yrs Sex: Female : 1960 Arrival Date: 04/16/2024 Time: 11:41 Bed 7 Private MD: Diagnosis: Abdominal tenderness;Nonspecific mesenteric lymphadenitis-MESENTERITIS Presentation: 04/16 11:52 Chief complaint: EMS states: Called to patient's home due to patient having right sided cm10 flank pain. Pt reports that she has had this pain for 4 days. Diagnosed with kidney stone and placed on antibiotics. EMS gave Toradol 30mg IM and Tylenol 640mg for pain and fever en route. Coronavirus screen: Client denies travel out of the [place] in the last 14 days. Ebola Screen: Patient denies travel to an Ebola-affected area in the 21 days before illness onset. No symptoms or risks identified at this time. Initial Sepsis Screen: Does the patient meet any 2 criteria? No. Patient's initial sepsis screen is negative. Does the patient have a suspected source of infection? No. Patient's initial sepsis screen is negative. Risk Assessment: Do you want to hurt yourself or someone else? Patient reports no desire to harm self or others. Onset of symptoms was April 12, 2024. Care prior to arrival: Medication(s) given: Tylenol, 640mg Toradol 30mg IM Glucose check: 158. 11:52 Method Of Arrival: EMS: [facility] cm10 11:52 Acuity: SAURAV 3 cm10 Triage Assessment: 11:55 General: Appears in no apparent distress. comfortable, Behavior is calm, cooperative. cm10 Pain: Complains of pain in right flank Pain currently is 8 out of 10 on a pain scale. Pain began 2-3 days ago. Neuro: No deficits noted. Level of Consciousness is awake, alert, obeys commands, Oriented to person, place, time, situation, Appropriate for age. Cardiovascular: No deficits noted. Patient's skin is warm and dry. Respiratory: No deficits noted. Airway is patent Respiratory effort is even, unlabored, Respiratory pattern is regular, symmetrical. Historical: - Allergies: 11:54 miconazole; cm10 11:54 skin cleanser combination no.17; cm10 - PMHx: 11:54 Anemia; Back pain; CVA; hemorrhoids; hiatal hernia; hyperthyroidism; Migraine; peptic cm10 ulcer disease; Kidney stone; - PSHx: 11:54 Bladder; section; Cholecystectomy; knee; surgery on nerve in right arm; wrist; cm10 - Immunization history:: Adult Immunizations up to date. - Infectious Disease History:: Denies. - Social history:: Smoking status: Patient denies any tobacco usage or history of. Screenin:38 [facility] ED Fall Risk Assessment (Adult) History of falling in the last 3 months, bp including since admission No falls in past 3 months (0 pts) Confusion or Disorientation No (0 pts) Intoxicated or Sedated No (0 pts) Impaired Gait No (0 pts) Mobility Assist Device Used No (0 pt) Altered Elimination No (0 pt) Score/Fall Risk Level 0 - 2 = Low Risk. Abuse screen: Denies threats or abuse. Denies injuries from another. Nutritional screening: No deficits noted. Tuberculosis screening: No symptoms or risk factors identified. Assessment: 12:00 General: Appears uncomfortable, obese, Behavior is calm, cooperative, appropriate for bp age. 13:37 Reassessment: Patient appears in no apparent distress at this time. Patient is alert, bp oriented x 3, equal unlabored respirations, skin warm/dry/pink. 14:52 Reassessment: Patient appears in no apparent distress at this time. Patient is alert, bp oriented x 3, equal unlabored respirations, skin warm/dry/pink. 16:49 Reassessment: Patient appears in no apparent distress at this time. Patient and/or cm10 family updated on plan of care and expected duration. Pain level reassessed. Patient is alert, oriented x 3, equal unlabored respirations, skin warm/dry/pink. Vital Signs: 11:52 BP 147 / 75; Pulse 95; Resp 16; Temp 97.9(O); Pulse Ox 94% on R/A; Weight 96.16 kg; cm10 Height 5 ft. 7 in. ; Pain 8/10; 13:37 BP 157 / 73; Pulse 89; Resp 16; Pulse Ox 98% ; bp 14:52 BP 129 / 71; Pulse 85; Resp 16; Pulse Ox 99% ; bp 16:00 BP 160 / 86; Pulse 92; Resp 16; Pulse Ox 95% ; cm10 11:52 Body Mass Index 33.20 (96.16 kg, 170.18 cm) cm10 11:52 Pain Scale: Adult cm10 ED Course: 11:44 Patient arrived in ED. sj2 11:52 Scarlet Lucas, RN is Primary Nurse. cm10 11:54 Triage completed. cm10 11:56 Arm band placed on Patient placed in an exam room, on a stretcher, on pulse oximetry. cm10 11:57 Ethan Ray MD is Attending Physician. itz 12:14 CT Stone Protocol In Process Unspecified. EDMS 13:00 Accessed peripheral vein via ultrasound, utilizing dynamic ultrasound technique using bp 18G Nexia IV Catheter ,sterile technique, Clean \T\ dry. Dressing intact. Good blood return. Flushes easily. 13:18 XRAY Chest (1 view) In Process Unspecified. EDMS 13:38 Patient has correct armband on for positive identification. bp 15:47 CT Abd/Pelvis - IV Contrast Only In Process Unspecified. EDMS 16:49 No provider procedures requiring assistance completed. IV discontinued, intact, cm10 bleeding controlled, No redness/swelling at site. Pressure dressing applied. 16:50 Provided Education on: Follow-up instructions. cm10 Administered Medications: 13:36 Drug: NS 0.9% IV 1000 ml IV at 1 bolus Per protocol; 1000 mL bolus Route: IV; Rate: 1 bp bolus; Site: left upper arm; 16:51 Follow up: Response: No adverse reaction; IV Status: Completed infusion; IV Intake: cm10 1000ml 13:36 Drug: Ondansetron IVP 4 mg IVP once; over 2 minutes Route: IVP; Site: left upper arm; bp 16:51 Follow up: Response: No adverse reaction cm10 13:37 Drug: Meropenem IV 1 grams IV at per protocol once; (mix in NS 100 mL) Route: IV; Rate: bp per protocol; Site: left upper arm; 16:51 Follow up: Response: No adverse reaction; IV Status: Completed infusion; IV Intake: cm10 100ml 13:37 Drug: morphine IVP or IV 4 mg IVP once over 4 mins Route: IVP; Infused Over: 4 mins; bp Site: left upper arm; 16:51 Follow up: Response: No adverse reaction cm10 16:01 Drug: Ciprofloxacin PO 500 mg PO once Route: PO; bp 16:51 Follow up: Response: No adverse reaction cm10 16:01 Drug: metroNIDAZOLE PO 500 mg PO once Route: PO; bp 16:51 Follow up: Response: No adverse reaction cm10 16:14 Drug: morphine IVP or IV 4 mg IVP once over 4 mins Route: IVP; Infused Over: 4 mins; bp Site: left upper arm; 16:50 Follow up: Response: No adverse reaction cm10 Medication: 16:50 VIS not applicable for this client. cm10 Intake: 16:51 IV: 100ml; Total: 100ml. cm10 16:51 IV: 1000ml; Total: 1100ml. cm10 Outcome: 16:20 Discharge ordered by . itz 16:49 Discharged to home via wheelchair, with family, cm10 16:49 Condition: good 16:49 Discharge instructions given to patient, Instructed on discharge instructions, follow up and referral plans. medication usage, Demonstrated understanding of follow-up care, medications, Prescriptions given X 4, 16:50 Patient left the ED. cm10 Signatures: Dispatcher [employer] EDMS Ethan Ray MD MD cha Peltier, Brian, RN RN Scarlet Rubalcava RN RN cm10 Hattie Tejeda sj2
--- NOTE | 2024-04-16 16:23 | RAD REPORT ---
EXAM DESCRIPTION: CT - Abdomen Pelvis W Contrast - 04/16/2024 3:46 pm CLINICAL HISTORY: Abdominal pain COMPARISON: CT unenhanced abdomen April 16, 2024 TECHNIQUE: Computed axial tomography of the abdomen pelvis was obtained. 100 cc Isovue-300 was admin istered intravenously. Oral contrast was not requested which limits evaluation of bowel and appendix All CT scans are performed using dose optimization technique as appropriate and may include automated exposure control or mA/KV adjustment according to patient size. FINDINGS: The liver, spleen, pancreas, adrenal and kidneys appear unremarkable. There is no evidence of diverticulitis. Cholecystectomy Mild stranding central mesentery Appendix not seen. No stranding adjacent to cecum Hysterectomy. No adnexal mass. Small lipoma right gluteus muscle IMPRESSION: Mild stranding central mesentery may indicate a mesenteritis
[2024-04-16 16:55] VITALS: TEMP 97.9
[2024-04-16 16:58] VITALS: BP 160/86; O2SAT 95
== END 2024-04-16 16:50 | disposition home or self-care (01) ==
LOC: ER 11:41
DX: I88.0 Nonspecific mesenteric lymphadenitis (principal)
CPT/HCPCS: 96365; 87040 ×2; 87088; 85025; 81001; 87086; 80048; 36415; 83735; 85610; 80076; 83605; 84484; 83690; 83880; 76377; 74176; 74177; 71045; 96375; 99285; 96366; Q9967; J2185; J2405; J7030

== ENCOUNTER 2024-08-28 12:47 | Emergency (ER) | payer OTHER ==
[2024-08-28 14:14] LABS: Absolute Basophils 0.1 K/uL (0-0.5); Absolute Eosinophils 0.2 K/uL (0-0.5); Absolute Lymphocytes (CBC) 1.4 K/uL (0.7-4.9); Absolute Monocytes 0.8 K/uL (0.1-1.3); Absolute Neutrophil 4.2 K/uL (1.8-8.0); Basophils % 0.9 % (0-1.3); Eosinophils % 3.1 % (0-4.4); Hematocrit 25.7 % (36.0-45.0); Hemoglobin 8.4 g/dL (12.0-15.0); Lymphocytes % 21.2 % (15.3-44.8); MCH 27.8 pg (27.0-35.0); MCHC 32.6 g/dL (32.0-36.0); MCV 85.4 fL (80-100); MPV 8.8 fL (7.6-11.3); Monocytes % 12.6 % (3.3-12.3); Neutrophils % 62.2 % (41.7-73.7); Nucleated Red Blood Cells % 0.3 % (0-0); Platelets 284 thou/uL (152-406); RBC Red Blood Cell Count 3.01 M/uL (3.86-4.86); Red Cell Distribution Width 17.4 % (12.1-15.2)
[2024-08-28] MEDS ORDERED: CODEINE 30MG/APAP 300MG TAB ONE (15:19)
--- NOTE | 2024-08-28 15:55 | RAD REPORT ---
EXAMINATION: ONE VIEW CHEST XR CLINICAL INDICATION: Female, 64 years old.,CHEST PAIN TECHNIQUE: Frontal chest projection is submitted. Examination is limited by patient positioning and t echnique. COMPARISON: 04/16/2024 FINDINGS: The lungs are well inflated and clear. No pneumothorax or sizable effusion. The heart is normal in s ize. Mediastinal contours are unremarkable. IMPRESSION: No acute intrathoracic abnormalities.
[2024-08-28] MEDS ORDERED: BENZONATATE 100 MG CAP PO ONE (17:58)
--- NOTE | 2024-08-28 18:21 | EDPHYS ---
Physician Documentation [facility] Name: Radha Santos Age: 64 yrs Sex: Female : 1960 Arrival Date: 08/28/2024 Time: 12:47 Bed 26 Private MD: ED Physician Saurav Gaytan HPI: 08/28 14:09 This 64 yrs old Female presents to ER via EMS with complaints of Chest Pain. bo1 14:09 The patient or guardian reports chest pain that is located primarily in the anterior bo1 chest wall. Onset: gradually, 2 day(s) ago. The pain does not radiate. Associated signs and symptoms: Pertinent positives: cough, Yellow sputum at times; no blood. The chest pain is described as sharp. Duration: The patient or guardian reports multiple episodes, with no pattern. Hx of prior similar sxs. Hx of anemia and blood transfusion 3 years ago. Historical: - Allergies: 12:51 miconazole; jb4 12:51 skin cleanser combination no.17; jb4 - PMHx: 12:51 Anemia; Back pain; CVA; hemorrhoids; hiatal hernia; hyperthyroidism; Kidney stone; jb4 Migraine; peptic ulcer disease; Asthma; - PSHx: 12:51 Bladder; section; Cholecystectomy; knee; surgery on nerve in right arm; wrist; jb4 - Immunization history:: Adult Immunizations up to date. - Infectious Disease History:: Denies. - Social history:: Smoking status: Patient denies any tobacco usage or history of. ROS: 18:15 Constitutional: Negative for fever, chills, and weight loss bo1 18:15 Neck: Negative for pain with movement, pain at rest, 18:15 Cardiovascular: Positive for chest pain, Negative for palpitations, 18:15 Respiratory: Positive for cough, Occ asthma related symptoms, 18:15 Abdomen/GI: Negative for abdominal pain, nausea and vomiting, 18:15 MS/extremity: Negative for pain, paresthesias, swelling, 18:15 Skin: Negative for rash, 18:15 All other systems are negative, Exam: 14:42 Constitutional: This is a well developed, well nourished patient who is awake, alert, bo1 and in no acute distress. 14:42 Constitutional: The patient appears in no acute distress, alert, awake, comfortable, non-toxic, 14:42 Head/face: Noted is Pallor to the eyes. 14:42 Eyes: Conjunctiva: pale, 14:42 Neck: External neck: is normal, no acute changes, 14:42 Chest/axilla: Inspection: normal, Palpation: tenderness, that is moderate, of the anterior aspect of right upper chest, anterior aspect of left upper chest and mid-sternal area, 14:42 Cardiovascular: Rate: normal, Rhythm: regular, Pulses: no pulse deficits are appreciated, Heart sounds: normal, 14:42 ECG was reviewed by the Attending Physician. 14:43 Respiratory: the patient does not display signs of respiratory distress, Respirations: bo1 normal, no acute changes, Breath sounds: are clear throughout, 14:43 Abdomen/GI: Inspection: abdomen appears normal, Palpation: abdomen is soft and non-tender, 14:43 Musculoskeletal/extremity: DVT Exam: no pain, no tenderness, negative Homans' sign noted on exam, 14:43 Musculoskeletal/extremity: Extremities: Swelling to BLE - Hx of sxs for awhile (pitting). 14:43 Skin: no rash present. Pt is pale in color, Vital Signs: 12:49 BP 158 / 56; Pulse 92; Resp 15; Temp 98.4(O); Pulse Ox 100% ; Weight 104.33 kg (R); jb4 Height 5 ft. 7 in. (R); Pain 7/10; 15:15 BP 130 / 63; Pulse 88; Resp 16; Pulse Ox 98% on R/A; jb4 16:00 BP 134 / 66; Pulse 90; Resp 16; Pulse Ox 97% on R/A; jb4 18:03 BP 142 / 63; Pulse 89; Resp 16; Pulse Ox 98% on R/A; jb4 12:49 Body Mass Index 36.02 (104.33 kg, 170.18 cm) jb4 12:49 Pain Scale: Adult jb4 MDM: 13:21 Medical Screening Exam initiated bo1 18:16 Differential diagnosis: chest wall pain, Asthma cough, reactive airway disease, cough - bo1 bronchitis. 18:17 ED course: Pt is stable, no criteria for acute hospitalization or obs. OP trial for bo1 symptoms. 18:23 Data reviewed: vital signs, lab test result(s), EKG, radiologic studies, plain films. bo08/28 13:03 Order name: Basic Metabolic Panel; Complete Time: 16:22 08/28 13:03 Order name: CBC with Diff; Complete Time: 15:05 08/28 13:03 Order name: Troponin HS; Complete Time: 16:22 08/28 13:03 Order name: XRAY Chest (1 view); Complete Time: 16:22 08/28 13:03 Order name: Cardiac monitoring; Complete Time: 13:37 08/28 13:03 Order name: EKG - Nurse/Tech; Complete Time: 13:37 08/28 13:03 Order name: IV Saline Lock; Complete Time: 13:08/28 13:03 Order name: Labs collected and sent; Complete Time: 13:08/28 13:03 Order name: O2 Per Protocol; Complete Time: 13:08/28 13:03 Order name: O2 Sat Monitoring; Complete Time: 13: EC:42 Rate is 91 beats/min. Rhythm is regular. QRS Sylvester is Normal. MT interval is normal. QRS bo1 interval is normal. QT interval is normal. No Q waves. T waves are Normal. No ST changes noted. Clinical impression: Normal ECG. Interpreted by me. Reviewed by me. Administered Medications: 15:23 Drug: Acetaminophen-Codeine PO (300 mg-30 mg) 2 tabs PO once; RASS on ADMIN: Combtv4, jb4 Very Agttd3, Agttd2, Rstlss1, AlertClm0, Drwsy-1, Lt Sdtn-2, Mod Sdtn-3, Dp Sdtn-4, UnArsble-5 Route: PO; 18:03 Follow up: Response: No adverse reaction; Marked relief of symptoms; Pain is decreased jb4 18:03 Drug: Tessalon Perle PO 200 mg PO once Route: PO; jb4 18:39 Follow up: Response: No adverse reaction; Marked relief of symptoms jb4 Disposition Summary: 08/28/24 18:20 Discharge Ordered Notes: Location: Home bo1 Problem: chronic bo1 Symptoms: have improved bo1 Condition: Stable bo1 Diagnosis - Cough variant asthma bo1 - Acute bronchitis, unspecified bo1 - Chest pain on breathing bo1 Followup: bo1 - With: Private Physician - When: Upon discharge from the Emergency Department - Reason: Recheck today's complaints, Continuance of care Discharge Instructions: - Discharge Summary Sheet bo1 - Acute Bronchitis, Adult bo1 - Nonspecific Chest Pain, Adult, [id number] bo1 - Cough, Adult, [id number] bo1 Forms: - Medication Reconciliation Form bo1 - Antibiotic Education bo1 - Prescription Opioid Use bo1 - Patient Portal Instructions bo1 - Leadership Thank You Letter bo1 Prescriptions: - acetaminophen-codeine 300-30 mg Oral tablet - take 2 tablet ORAL route every 4 hours for 7 days as needed for pain; 25 bo1 tablet; Refills: 0, Product Selection Permitted - azithromycin 500 mg Oral tablet - take 1 tablet ORAL route daily for 7 days; 7 tablet; Refills: 0, Product bo1 Selection Permitted - Tessalon Perles 100 mg Oral capsule - take 1 capsule ORAL route every 8 hours As needed; 30 capsule; Refills: 0, bo1 Product Selection Permitted Signatures: Dispatcher [employer] Jorge Carlson RN RN jb4 OeiSaurav MD MD bo1
--- NOTE | 2024-08-28 18:21 | ER ---
Nurse's Notes [facility] Name: Radha Santos Age: 64 yrs Sex: Female : 1960 Arrival Date: 08/28/2024 Time: 12:47 Bed 26 Private MD: Diagnosis: Cough variant asthma;Acute bronchitis, unspecified;Chest pain on breathing Presentation: 08/28 12:49 Chief complaint: EMS states: Pt reports chest pain for the past 2 days that has been jb4 getting worse. It is worse with deep inhalation. Pt took her inhaler prior to EMS arrival, has had no relief. Coronavirus screen: At this time, the client does not indicate any symptoms associated with coronavirus-19. Ebola Screen: No symptoms or risks identified at this time. Initial Sepsis Screen: Does the patient meet any 2 criteria? HR > 90 bpm. Yes Does the patient have a suspected source of infection? No. Patient's initial sepsis screen is negative. Risk Assessment: Do you want to hurt yourself or someone else? Patient reports no desire to harm self or others. Onset of symptoms was August 28, 2024. Transition of care: patient was not received from another setting of care. 12:49 Method Of Arrival: EMS: [facility] jb4 12:49 Acuity: SAURAV 3 jb4 Triage Assessment: 12:51 General: Appears in no apparent distress. comfortable, Behavior is calm, cooperative, jb4 appropriate for age. Pain: Complains of pain in anterior aspect of left upper chest Pain does not radiate. Pain currently is 7 out of 10 on a pain scale. Quality of pain is described as heavy, sharp, Pain began 2-3 days ago. Is continuous, Aggravated by deep inhalation. Neuro: Level of Consciousness is awake, alert, obeys commands, Oriented to person, place, time, situation. Cardiovascular: Patient's skin is warm and dry. Respiratory: Airway is patent Respiratory effort is even, unlabored, Respiratory pattern is regular, symmetrical. Derm: Skin is intact, Skin is pink, warm \T\ dry. Musculoskeletal: Circulation, motion, and sensation intact. Range of motion: intact in all extremities. Historical: - Allergies: 12:51 miconazole; jb4 12:51 skin cleanser combination no.17; jb4 - PMHx: 12:51 Anemia; Back pain; CVA; hemorrhoids; hiatal hernia; hyperthyroidism; Kidney stone; jb4 Migraine; peptic ulcer disease; Asthma; - PSHx: 12:51 Bladder; section; Cholecystectomy; knee; surgery on nerve in right arm; wrist; jb4 - Immunization history:: Adult Immunizations up to date. - Infectious Disease History:: Denies. - Social history:: Smoking status: Patient denies any tobacco usage or history of. Screenin:54 [facility] ED Fall Risk Assessment (Adult) History of falling in the last 3 months, jb4 including since admission No falls in past 3 months (0 pts) Confusion or Disorientation No (0 pts) Intoxicated or Sedated No (0 pts) Impaired Gait No (0 pts) Mobility Assist Device Used No (0 pt) Altered Elimination No (0 pt) Score/Fall Risk Level 0 - 2 = Low Risk Oriented to surroundings, Maintained a safe environment. Abuse screen: Denies threats or abuse. Nutritional screening: No deficits noted. Tuberculosis screening: No symptoms or risk factors identified. Assessment: 12:54 Reassessment: see triage note. jb4 14:00 Reassessment: Patient appears in no apparent distress at this time. Patient and/or jb4 family updated on plan of care and expected duration. Pain level reassessed. Patient is alert, oriented x 3, equal unlabored respirations, skin warm/dry/pink. 15:14 Reassessment: Patient appears in no apparent distress at this time. Patient and/or jb4 family updated on plan of care and expected duration. Pain level reassessed. Patient is alert, oriented x 3, equal unlabored respirations, skin warm/dry/pink. 16:00 Reassessment: Patient appears in no apparent distress at this time. Patient and/or jb4 family updated on plan of care and expected duration. Pain level reassessed. Patient is alert, oriented x 3, equal unlabored respirations, skin warm/dry/pink. 17:00 Reassessment: Patient appears in no apparent distress at this time. Patient and/or jb4 family updated on plan of care and expected duration. Pain level reassessed. Patient is alert, oriented x 3, equal unlabored respirations, skin warm/dry/pink. 18:00 Reassessment: Patient appears in no apparent distress at this time. Patient and/or jb4 family updated on plan of care and expected duration. Pain level reassessed. Patient is alert, oriented x 3, equal unlabored respirations, skin warm/dry/pink. Vital Signs: 12:49 BP 158 / 56; Pulse 92; Resp 15; Temp 98.4(O); Pulse Ox 100% ; Weight 104.33 kg (R); jb4 Height 5 ft. 7 in. (R); Pain 7/10; 15:15 BP 130 / 63; Pulse 88; Resp 16; Pulse Ox 98% on R/A; jb4 16:00 BP 134 / 66; Pulse 90; Resp 16; Pulse Ox 97% on R/A; jb4 18:03 BP 142 / 63; Pulse 89; Resp 16; Pulse Ox 98% on R/A; jb4 12:49 Body Mass Index 36.02 (104.33 kg, 170.18 cm) jb4 12:49 Pain Scale: Adult jb4 ED Course: 12:48 Patient arrived in ED. jb4 12:51 Triage completed. jb4 12:51 Arm band placed on right wrist. jb4 12:54 Patient has correct armband on for positive identification. Bed in low position. Call jb4 light in reach. Side rails up X 1. Provided Education on: plan of care. 12:54 No provider procedures requiring assistance completed. Patient maintains SpO2 jb4 saturation greater than 95% on room air. 13:10 Saurav Gaytan MD is Attending Physician. bo1 13:37 XRAY Chest (1 view) In Process Unspecified. EDMS 15:00 Client placed on continuous cardiac and pulse oximetry monitoring. NIBP monitoring jb4 applied. phototypesetting equipment monitor on. Pulse ox on. 15:00 IV discontinued, intact, bleeding controlled, No redness/swelling at site. Pressure jb4 dressing applied. Administered Medications: 15:23 Drug: Acetaminophen-Codeine PO (300 mg-30 mg) 2 tabs PO once; RASS on ADMIN: Combtv4, jb4 Very Agttd3, Agttd2, Rstlss1, AlertClm0, Drwsy-1, Lt Sdtn-2, Mod Sdtn-3, Dp Sdtn-4, UnArsble-5 Route: PO; 18:03 Follow up: Response: No adverse reaction; Marked relief of symptoms; Pain is decreased jb4 18:03 Drug: Tessalon Perle PO 200 mg PO once Route: PO; jb4 18:39 Follow up: Response: No adverse reaction; Marked relief of symptoms jb4 Medication: 12:54 VIS not applicable for this client. jb4 Outcome: 18:20 Discharge ordered by . bo1 18:39 Discharged to [facility] to wait for ride home jb4 18:39 Condition: stable 18:39 Discharge instructions given to patient, Instructed on discharge instructions, follow up and referral plans. medication usage, Demonstrated understanding of instructions, follow-up care, medications, Prescriptions given X 3, 18:39 Patient left the ED. jb4 Signatures: Dispatcher [employer] EDMS Jorge Long, RN RN jb4 Lucila, MD MARIAH Mg bo1 Corrections: (The following items were deleted from the chart) 12:54 12:49 Chief complaint: EMS states: Pt reports chest pain for the past 2 days that has jb4 been getting worse. It is worse with deep inspiration. Pt took her inhaler prior to EMS arrival, has had no relief. jb4 18:10 18:03 BP 142 / 3; Pulse 89bpm; Resp 16bpm; Pulse Ox 98% RA; jb4 jb4
[2024-08-28 21:49] VITALS: TEMP 98.4
[2024-08-28 22:00] VITALS: BP 142/63; O2SAT 98
--- NOTE | 2024-08-29 15:08 | EKG ---
Test Date: 2024-08-28 Test Time: 13:18:00 Exhibition Designer: ALDAIR MEASUREMENT RESULTS: Intervals: Rate: 91 NH: 172 QRSD: 88 QT: 362 QTc: 445 [place]: P: 52 NH: 172 QRS: 16 T: 33 INTERPRETIVE STATEMENTS: Normal sinus rhythm Normal ECG Compared to ECG 02/24/2024 00:06:19 No significant changes Electronically Signed On 08-29-24 15:06:05 WAX PUMPER by Matheus Izaguirre
== END 2024-08-28 18:39 | disposition home or self-care (01) ==
LOC: ER 12:47
DX: J45.991 Cough variant asthma (principal); J20.9 Acute bronchitis, unspecified
CPT/HCPCS: 36415; 71045; 80048; 84484; 85025; 93005; 99284

== ENCOUNTER 2024-09-08 15:01 | Emergency (ER) | payer OTHER ==
[2024-09-08] MEDS ORDERED: IPRATROPIUM BROM 0.5MG/2.5ML ONE ×2 (16:13→22:43)
[2024-09-08] MEDS ORDERED: METHYLPREDNISOLONE 125 MG INJ ONE (16:13)
[2024-09-08] MEDS ORDERED: ALBUTEROL 2.5 MG/3 ML NEB SOL ONE ×2 (16:13→22:43)
[2024-09-08 16:15] LABS: Absolute Basophils 0.1 K/uL (0-0.5); Absolute Eosinophils 0.2 K/uL (0-0.5); Absolute Lymphocytes (CBC) 1.3 K/uL (0.7-4.9); Absolute Monocytes 0.8 K/uL (0.1-1.3); Absolute Neutrophil 5.7 K/uL (1.8-8.0); Basophils % 0.9 % (0-1.3); Eosinophils % 2.8 % (0-4.4); Hematocrit 22.1 % (36.0-45.0); Hemoglobin 7.1 g/dL (12.0-15.0); Lymphocytes % 15.9 % (15.3-44.8); MCH 26.9 pg (27.0-35.0); MCHC 32.1 g/dL (32.0-36.0); MCV 83.9 fL (80-100); MPV 8.4 fL (7.6-11.3); Monocytes % 10.1 % (3.3-12.3); Neutrophils % 70.3 % (41.7-73.7); Nucleated Red Blood Cells % 0.1 % (0-0); Platelets 250 thou/uL (152-406); RBC Red Blood Cell Count 2.63 M/uL (3.86-4.86); Red Cell Distribution Width 17.9 % (12.1-15.2)
[2024-09-08 16:19] LABS: Anion Gap 8.2 mEq/L (5.0-15.0); Potassium 4.2 mEq/L (3.5-5.1)
--- NOTE | 2024-09-08 16:41 | RAD REPORT ---
EXAM: Chest Single View HISTORY: COUGH COMPARISON: 08/28/2024 FINDINGS: LUNGS/PLEURA: The lungs are clear. No pleural effusions or pneumothorax. No pulmonary edema. MEDIASTINUM: The mediastinal silhouette is within normal limits. CARDIAC: Stable size and configuration. UPPER ABDOMEN: No significant abnormality. BONES: No acute abnormality. LINES/TUBES/OTHER: N/A IMPRESSION: No evidence of acute cardiopulmonary disease.
[2024-09-08 16:42] LABS: SARS-CoV-2 Antigen CONTROL BLUE LINE VIS/BG OK; SARS-CoV-2 Antigen Rapid Res Negative (Negative)
[2024-09-08] MEDS ORDERED: AZITHROMYCIN 250 MG TAB ONE (18:02)
[2024-09-08] MEDS ORDERED: NA CHLORIDE 0.9% 250 ML ONE (20:16)
--- NOTE | 2024-09-09 00:50 | EDPHYS ---
Physician Documentation [facility] Name: Radha Santos Age: 64 yrs Sex: Female : 1960 Arrival Date: 09/08/2024 Time: 15:01 Bed 19 Private MD: ED Physician Gualberto Barron HPI: 09/08 15:32 This 64 yrs old Female presents to ER via EMS with complaints of Shortness Of ec2 Breath, Chest Pain. 15:32 Patient arrives today for evaluation of cough and shortness of breath. Patient reports ec2 that she has a history of asthma and she feels that she is having a flare. Patient reports that she takes her Trelegy as prescribed. Patient reports cough and congestion and shortness of breath. No vomiting, no diarrhea.. Historical: - Allergies: 15:10 miconazole; aa5 15:10 skin cleanser combination no.17; aa5 - PMHx: 15:10 Anemia; Asthma; Back pain; CVA; hemorrhoids; hiatal hernia; hyperthyroidism; Kidney aa5 stone; Migraine; peptic ulcer disease; Gastric ulcer bleed (wrist); - PSHx: 15:10 Bladder; section; Cholecystectomy; knee; surgery on nerve in right arm; wrist; aa5 - Immunization history:: Adult Immunizations up to date. - Infectious Disease History:: Denies. - Social history:: Smoking status: Patient denies any tobacco usage or history of. ROS: 15:33 Constitutional: as per hpi ec2 Exam: 15:33 Constitutional: GEN: NAD Head: atraumatic Eyes: EOMI Ears: External ears are ec2 normal. CV: regular rate LUNGS: Scattered wheezes noted ABD: non-distended SKIN: no evidence of rashes MSK: no evidence of trauma Vital Signs: 15:10 BP 158 / 69; Pulse 98; Resp 20 S; Temp 98(O); Pulse Ox 100% on R/A; Weight 102.06 kg aa5 (R); Height 5 ft. 6 in. (R); Pain 7/10; 17:00 BP 128 / 64; Pulse 88; Resp 17 S; Pulse Ox 99% on R/A; aa5 18:00 BP 133 / 56; Pulse 99; Resp 19 S; Pulse Ox 98% on R/A; aa5 19:00 BP 143 / 64; Pulse 97; Resp 18 S; Pulse Ox 98% on R/A; aa5 21:00 BP 132 / 71; Pulse 111; Resp 20; Temp 98.4; Pulse Ox 99% on R/A; kj2 22:00 BP 144 / 64; Pulse 106; Resp 20; Temp 98.4; Pulse Ox 100% ; 2 09/09 00:15 BP 141 / 74; Pulse 112; Resp 20; Temp 98.5; Pulse Ox 100% on R/A; kj2 09/08 15:10 Body Mass Index 36.32 (102.06 kg, 167.64 cm) aa5 09/08 15:10 Pain Scale: Adult [facility] MDM: 09/08 15:17 Medical Screening Exam initiated ec2 15:33 Data reviewed: vital signs, nurses notes. ED course: Patient arrives today for upper ec2 respiratory symptoms. Examination reveals scattered wheezes as noted above. Will obtain lab work, chest x-ray, viral swabs. Suspect asthma exacerbation, possible viral infection, additionally considered pneumonia. Empirically treat with steroids as well as DuoNeb.. 15:52 ED course: EKG independently reviewed and interpreted by me, shows normal sinus rhythm, ec2 rate of 90, no acute ST segment elevations, intervals are nonactionable.. 16:44 ED course: Hemoglobin is 7.1, recent visits at 8 and 9.7. Patient with history of ec2 anemia.. 17:12 ED course: Patient with chronic anemia, shortness of breath that is improved with ec2 nebulizer. 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 Patient has no abdominal pain, no rectal bleeding, no melena per patient report.. 09/08 15:32 Order name: Basic Metabolic Panel; Complete Time: 16:43 ec2 09/08 15:32 Order name: CBC with Diff; Complete Time: 16:43 ec2 09/08 15:32 Order name: NT PRO-BNP; Complete Time: 16:43 ec2 09/08 15:32 Order name: Influenza Screen (a \T\ B); Complete Time: 16:43 ec2 09/08 15:32 Order name: SARS RAPID; Complete Time: 16:43 ec2 09/08 17:01 Order name: Type And Screen ec2 09/08 17:07 Order name: Bb Add On bd 09/08 18:30 Order name: Packed RBC Leukored EDMS 09/08 15:32 Order name: XRAY Chest (1 view); Complete Time: 16:43 ec2 09/08 15:32 Order name: EKG; Complete Time: 15:32 ec2 09/08 15:32 Order name: Cardiac monitoring; Complete Time: 16:01 ec2 09/08 15:32 Order name: EKG - Nurse/Tech; Complete Time: 16:01 ec2 09/08 15:32 Order name: IV Saline Lock; Complete Time: 16:01 ec2 09/08 15:32 Order name: Labs collected and sent; Complete Time: 16:01 ec2 09/08 15:32 Order name: O2 Per Protocol; Complete Time: 16:01 ec2 09/08 15:32 Order name: O2 Sat Monitoring; Complete Time: 16:01 ec2 09/08 17:01 Order name: Consent for Blood Transfusion; Complete Time: 00:03 ec2 Administered Medications: 16:15 Drug: DuoNeb Nebulize (3:1) (2.5 mg - 0.5 mg) 3 ml Nebulizer once Route: Nebulizer; 09/09 00:03 Follow up: Response: No adverse reaction 09/08 16:15 Drug: MethylPrednisoLONE IVP 125 mg IVP once Route: IVP; Site: left upper arm; 09/09 00:03 Follow up: Response: No adverse reaction 09/08 18:16 Drug: AZITHromycin PO 500 mg PO once Route: PO; 09/09 00:05 Follow up: Response: No adverse reaction 09/08 23:30 Drug: Albuterol Inhalation 2.5 mg Inhalation once Route: Inhalation; kj09/09 00:48 Follow up: Response: No adverse reaction 09/08 23:30 Drug: Ipratropium Inhalation Aerosol 0.5 mg Inhalation once Route: Inhalation; kj09/09 00:48 Follow up: Response: No adverse reaction kj2 Disposition: 09/08 17:43 Critical Care:. ec2 Disposition Summary: 09/09/24 00:49 Discharge Ordered Notes: Location: Home kb Condition: Stable kb Diagnosis - Mild intermittent asthma with (acute) exacerbation kb - Anemia, unspecified kb Followup: ec2 - With: Private Physician - When: - Reason: Re-evaluation by your physician Discharge Instructions: - Discharge Summary Sheet ec2 - Asthma, Adult ec2 Forms: - Medication Reconciliation Form kb - Antibiotic Education kb - Prescription Opioid Use kb - Patient Portal Instructions kb - Leadership Thank You Letter kb Prescriptions: - Zithromax Z-Chuy 250 mg Oral Tablet - take 1 tablet ORAL route as directed for 5 days Day 1 - take two (2) tablets ec2 one time. Day 2, 3, 4 , 5 take one (1) tablet once daily.; 6 tablet; Refills: 0, Product Selection Permitted - Prednisone 20 mg Oral Tablet - take 2 tablets ORAL route once daily for 5 days; 10 tablet; Refills: 0, Product ec2 Selection Permitted Critical care time excluding procedures: 17:43 Critical care time: Bedside Care: 30 minutes. Total time: 30 minutes ec2 Signatures: Dispatcher [employer] EDIndigo Barba FNP-C FNP-Stephanie Hensley, RN RN aa5 Gualberto Barron MD MD ec2 Petrona Ball RN RN kj2 Corrections: (The following items were deleted from the chart) 17:02 17:02 TYPE AND SCREEN+BB.LAB.BRZ ordered. EDMS EDMS 18:30 17:02 PACKED RBC LEUKORED+BB.LAB.BRZ ordered. EDMS EDMS 18:30 17:03 ABO/RH typing ordered. EDMS EDMS 18:30 17:03 Antibody Screen ordered. EDMS EDMS
--- NOTE | 2024-09-09 00:50 | ER ---
Nurse's Notes [facility] Name: Radha Santos Age: 64 yrs Sex: Female : 1960 Arrival Date: 09/08/2024 Time: 15:01 Bed 19 Private MD: Diagnosis: Mild intermittent asthma with (acute) exacerbation;Anemia, unspecified Presentation: 09/08 15:10 Chief complaint:. aa5 15:10 Coronavirus screen: shortness of breath. Ebola Screen: Patient denies travel to an aa5 Ebola-affected area in the 21 days before illness onset. Initial Sepsis Screen: Does the patient meet any 2 criteria? HR > 90 bpm. Does the patient have a suspected source of infection? No. Patient's initial sepsis screen is negative. Risk Assessment: Do you want to hurt yourself or someone else? Patient reports no desire to harm self or others. Onset of symptoms was August 2024. 15:10 Acuity: SAURAV 2 aa5 15:10 Method Of Arrival: EMS: [facility] aa5 15:10 Care prior to arrival: Medication(s) given: Albuterol Neb x 1, Atrovent Neb x 1. aa5 Historical: - Allergies: 15:10 miconazole; aa5 15:10 skin cleanser combination no.17; aa5 - PMHx: 15:10 Anemia; Asthma; Back pain; CVA; hemorrhoids; hiatal hernia; hyperthyroidism; Kidney aa5 stone; Migraine; peptic ulcer disease; Gastric ulcer bleed (wrist); - PSHx: 15:10 Bladder; section; Cholecystectomy; knee; surgery on nerve in right arm; wrist; aa5 - Immunization history:: Adult Immunizations up to date. - Infectious Disease History:: Denies. - Social history:: Smoking status: Patient denies any tobacco usage or history of. Screenin/04 01:27 [facility] ED Fall Risk Assessment (Adult) History of falling in the last 3 months, ha1 including since admission No falls in past 3 months (0 pts) Confusion or Disorientation No (0 pts) Intoxicated or Sedated No (0 pts) Impaired Gait Yes (1 pt) Mobility Assist Device Used Yes (1 pt) Altered Elimination No (0 pt) Score/Fall Risk Level 3 or more points = High Risk Oriented to surroundings, Maintained a safe environment, Educated pt \T\ family on fall prevention, incl call for assistance when getting out of bed, Hourly rounding (assess needs \T\ fall precautionary measures) done. Abuse screen: Denies threats or abuse. Denies injuries from another. Nutritional screening: No deficits noted. Tuberculosis screening: No symptoms or risk factors identified. Assessment: 09/08 15:10 General: Appears uncomfortable, Behavior is calm, cooperative. Pain: Complains of pain aa5 in chest Pain currently is 7 out of 10 on a pain scale. Quality of pain is described as heavy, pressure, Pain began 2-3 days ago. Is continuous, Aggravated by increased activity. Neuro: Level of Consciousness is awake, alert, obeys commands, Oriented to person, place, time, situation. Cardiovascular: Reports chest pain, shortness of breath, Heart tones S1 S2 present Rhythm is regular. Respiratory: Reports shortness of breath on exertion cough that is dry, x 1 week ago Airway is patent Respiratory effort is even, unlabored, Respiratory pattern is regular, symmetrical, Breath sounds with wheezes bilaterally. GI: Abdomen is round obese, Bowel sounds present X 4 quads. Abd is soft and non tender X 4 quads. Patient currently denies bloody stool, diarrhea, intolerance of fluids, intolerance of food, nausea, vomiting. : No signs and/or symptoms were reported regarding the genitourinary system. EENT: No signs and/or symptoms were reported regarding the EENT system. Derm: Skin is dry, Skin is pale, Skin temperature is warm. Musculoskeletal: Range of motion: intact in all extremities. 15:49 Neuro: Level of Consciousness is awake, alert, obeys commands, Oriented to person, aa5 place, time, situation. Respiratory: Airway is patent Respiratory effort is even, unlabored, Respiratory pattern is regular, symmetrical. Derm: Skin is dry, Skin is pale, Skin temperature is warm. 16:15 Neuro: Level of Consciousness is awake, alert, obeys commands, Oriented to person, aa5 place, time, situation. Respiratory: Airway is patent Respiratory effort is even, unlabored, Respiratory pattern is regular, symmetrical. Derm: Skin is dry, Skin is pale, Skin temperature is warm. 16:45 Reassessment: Patient states feeling better. Neuro: Level of Consciousness is awake, aa5 alert, obeys commands, Oriented to person, place, time, situation. Respiratory: Airway is patent Respiratory effort is even, unlabored, Respiratory pattern is regular, symmetrical. Derm: Skin is dry, Skin is pale, Skin temperature is warm. 18:16 Reassessment: Pt sitting up in bed watching TV, pt given sandwich and fruit cup to eat. aa5 . 18:45 Reassessment: Pt assisted to bedside commode, SOB noted upon transfer, pt now back in aa5 bed, on monitor, call graf remains within reach, pt watching TV. Awaiting blood transfusion, pt aware. . 21:00 Reassessment: blood transfusion started. kj2 22:00 Reassessment: Patient appears in no apparent distress at this time. Patient and/or kj2 family updated on plan of care and expected duration. Pain level reassessed. Patient is alert, oriented x 3, equal unlabored respirations, skin warm/dry/pink. 23:00 Reassessment: Patient appears in no apparent distress at this time. Patient and/or kj2 family updated on plan of care and expected duration. Pain level reassessed. Patient is alert, oriented x 3, equal unlabored respirations, skin warm/dry/pink. 09/09 00:15 Reassessment: Patient appears in no apparent distress at this time. Patient and/or kj2 family updated on plan of care and expected duration. Pain level reassessed. Patient is alert, oriented x 3, equal unlabored respirations, skin warm/dry/pink. blood transfusion complete. Vital Signs: 09/08 15:10 BP 158 / 69; Pulse 98; Resp 20 S; Temp 98(O); Pulse Ox 100% on R/A; Weight 102.06 kg aa5 (R); Height 5 ft. 6 in. (R); Pain 7/10; 17:00 BP 128 / 64; Pulse 88; Resp 17 S; Pulse Ox 99% on R/A; aa5 18:00 BP 133 / 56; Pulse 99; Resp 19 S; Pulse Ox 98% on R/A; aa5 19:00 BP 143 / 64; Pulse 97; Resp 18 S; Pulse Ox 98% on R/A; aa5 21:00 BP 132 / 71; Pulse 111; Resp 20; Temp 98.4; Pulse Ox 99% on R/A; kj2 22:00 BP 144 / 64; Pulse 106; Resp 20; Temp 98.4; Pulse Ox 100% ; kj2 09/09 00:15 BP 141 / 74; Pulse 112; Resp 20; Temp 98.5; Pulse Ox 100% on R/A; kj2 09/08 15:10 Body Mass Index 36.32 (102.06 kg, 167.64 cm) aa5 09/08 15:10 Pain Scale: Adult aa ED Course: 09/08 15:10 Arm band placed on Patient placed in an exam room, on a stretcher. aa5 15:17 Patient arrived in ED. aa5 15:17 Gualberto Barron MD is Attending Physician. ec2 15:19 Triage completed. aa5 15:25 Stephanie Cesar, RIMA is Primary Nurse. aa5 15:42 EKG done, by ED staff, reviewed by Gualberto Barron MD. aa5 15:45 COVID swab sent to lab. Flu and/or RSV swab sent to lab. aa5 15:49 Inserted saline lock: 20 gauge in left upper arm, using aseptic technique. Blood aa5 collected. Flushed with 10 mL NS. 15:49 Initial lab(s) drawn, by me, sent to lab. aa5 16:04 XRAY Chest (1 view) In Process Unspecified. EDMS 17:51 T\T\S collected, blood band applied to patient. aa5 20:32 Indigo Andrews FNP-C [facility] kb 21:35 Primary Nurse role handed off by Stephanie Cesar, RN rv1 22:37 Petrona Ball, RIMA is Primary Nurse. kj2 23:30 Assisted to bedside commode. kj2 09/09 00:03 Bb Add On Sent. kj2 00:15 Assisted to bedside commode. kj2 Administered Medications: 09/08 16:15 Drug: DuoNeb Nebulize (3:1) (2.5 mg - 0.5 mg) 3 ml Nebulizer once Route: Nebulizer; aa5 09/09 00:03 Follow up: Response: No adverse reaction 2 09/08 16:15 Drug: MethylPrednisoLONE IVP 125 mg IVP once Route: IVP; Site: left upper arm; aa5 09/09 00:03 Follow up: Response: No adverse reaction 2 09/08 18:16 Drug: AZITHromycin PO 500 mg PO once Route: PO; aa5 09/09 00:05 Follow up: Response: No adverse reaction 09/08 23:30 Drug: Albuterol Inhalation 2.5 mg Inhalation once Route: Inhalation; 09/09 00:48 Follow up: Response: No adverse reaction 09/08 23:30 Drug: Ipratropium Inhalation Aerosol 0.5 mg Inhalation once Route: Inhalation; kj09/09 00:48 Follow up: Response: No adverse reaction Outcome: 00:49 Discharge ordered by . kb 01:39 Patient left the ED. rg5 Signatures: Dispatcher [employer] EDMS Indigo Andrews, FINANCIAL SERVICES PROFESSIONAL-C FINANCIAL SERVICES PROFESSIONAL-Stephanie Hensley, RN RN aa5 Pepper Mcgraw RN RN 1 Milagros Ramos Gualberto Jaramillo MD MD ec2 Vinicio Navarro RN RN rg5 Petrona Ball RN RN kj2
[2024-09-09 02:25] VITALS: O2SAT 100
[2024-09-09 02:26] VITALS: BP 141/74; TEMP 98.5
--- NOTE | 2024-09-09 12:13 | EKG ---
Test Date: 2024-09-08 Test Time: 15:42:33 Chief Radiologic Technologist: KARI MEASUREMENT RESULTS: Intervals: Rate: 90 WV: 170 QRSD: 98 QT: 380 QTc: 464 [place]: P: 58 WV: 170 QRS: 12 T: 46 INTERPRETIVE STATEMENTS: Normal sinus rhythm Septal infarct, age undetermined Abnormal ECG Compared to ECG 08/28/2024 13:18:00 Myocardial infarct finding now present Electronically Signed On 09-09-24 12:11:21 MOLD PRESS OPERATOR by Pablo Edwards
== END 2024-09-09 01:39 | disposition home or self-care (01) ==
LOC: ER 15:01
DX: J45.21 Mild intermittent asthma with (acute) exacerbation (principal); D64.9 Anemia, unspecified; Z11.52 Encounter for screening for COVID-19
CPT/HCPCS: 93005; 85025; 80048; 36415; 86900; 86850; 86901; 86920; 83880; 87804 ×2; 71045; 87811; J7613 ×2; J7644 ×2; J2919; P9016; J7050

== ENCOUNTER 2024-10-13 19:24 | Inpatient (IN) | payer OTHER ==
--- NOTE | 2024-10-13 20:29 | RAD REPORT ---
Procedure: Chest Single View HISTORY: Shortness of breath COMPARISON: September 2024 FINDINGS: The lungs appear clear of acute infiltrate. No significant pleural effusion noted. The heart is normal size. IMPRESSION: No acute abnormality is displayed.
[2024-10-13 20:53] LABS: Absolute Lymphocytes (CBC) 0.2 K/uL (0.7-4.9); Absolute Monocytes 0.5 K/uL (0.1-1.3); Absolute Neutrophil 4.7 K/uL (1.8-8.0); Basophils % 0.5 % (0-1.3); Hematocrit 31.3 % (36.0-45.0); Hemoglobin 9.7 g/dL (12.0-15.0); Lymphocytes % 3.6 % (15.3-44.8); MCH 28.2 pg (27.0-35.0); MCV 91.2 fL (80-100); MPV 9.2 fL (7.6-11.3); Monocytes % 9.5 % (3.3-12.3); Neutrophils % 86.4 % (41.7-73.7); Platelets 156 thou/uL (152-406); RBC Red Blood Cell Count 3.43 M/uL (3.86-4.86)
[2024-10-13 21:15] LABS: Anion Gap 13.2 mEq/L (5.0-15.0); Potassium 4.2 mEq/L (3.5-5.1); Troponin High Sensitivity 4.3 pg/mL (<58.9)
[2024-10-13 21:43] LABS: Anisocytosis 1+; Blood Morphology Comment NOTED (NOT SEEN); Platelet Estimate ADEQ; White Blood Cell Scan OK (OK)
--- NOTE | 2024-10-13 22:11 | EDPHYS ---
Physician Documentation [facility] Name: Radha Santos Age: 64 yrs Sex: Female : 1960 Arrival Date: 10/13/2024 Time: 19:24 Bed 19 Private MD: ED Physician Ethan Ray HPI: 10/13 22:11 This 64 yrs old Female presents to ER via EMS with complaints of dyspnea. kb 22:11 Pt is a 64 year old female who presents for dyspnea that has been ongoing for 2 weeks, kb but worse today. Denies fever. States she has been doing neb treatments without relief. . Historical: - Allergies: 20:19 miconazole; kd3 20:19 skin cleanser combination no.17; kd3 - Home Meds: 22:27 tramadol 50 mg Oral tablet 2 times per day [Active]; temazepam 30 mg Oral capsule every lg3 day at bedtime [Active]; duloxetine 60 mg oral capsule,delayed release (e.c.) 2 caps daily [Active]; divalproex 250 mg oral Tablet, Extended Release 24 hr 3 tabs [Active]; quetiapine 400 mg oral tablet [Active]; trazodone 150 mg Oral tablet 1 tab nightly [Active]; simvastatin 20 mg Oral tablet every day at bedtime [Active]; donepezil 10 mg oral tablet every day at bedtime [Active]; pantoprazole 40 mg oral granules delayed release for susp packet daily [Active]; amlodipine 5 mg tablet daily [Active]; losartan 50 mg oral tablet daily [Active]; meloxicam 7.5 mg oral tablet [Active]; tizanidine 2 mg oral capsule 2 times per day [Active]; gabapentin 300 mg oral capsule 2 times per day [Active]; - PMHx: 20:19 Asthma; Asthma; Back pain; CVA; hyperthyroidism; hiatal hernia; Gastric ulcer bleed kd3 (wrist); Anemia; peptic ulcer disease; peptic ulcer disease; Migraine; Kidney stone; hemorrhoids; - PSHx: 20:19 section; section; surgery on nerve in right arm; knee; Bladder; kd3 wrist; Cholecystectomy; - Immunization history:: Adult Immunizations up to date. - Infectious Disease History:: Denies. - Social history:: Smoking status: unknown. ROS: 20:22 Constitutional: As per HPI kb Exam: 20:21 Constitutional: This is a well developed, well nourished patient who is awake, alert, kb and in no acute distress. Head/Face: Normocephalic, atraumatic. ENT: Moist Mucous membranes Respiratory: Respirations even and unlabored. No increased work of breathing. Talking in full sentences Skin: Warm, dry with normal turgor. Normal color. MS/ Extremity: Pulses equal, no cyanosis. Neurovascular intact. Full, normal range of motion. Neuro: Awake and alert, GCS 15, oriented to person, place, time, and situation. 20:21 Cardiovascular: Rate: tachycardic, 20:21 ECG was reviewed by the Attending Physician. Vital Signs: 20:16 BP 110 / 94; Pulse 104; Resp 20; Temp 97.7(O); Pulse Ox 94% on NC; Weight 102 kg; kd3 22:33 BP 161 / 87; Pulse 88; Resp 20; Pulse Ox 96% on R/A; kd3 23:20 BP 159 / 66; Pulse 87; Resp 19; Pulse Ox 97% on R/A; kd3 MDM: 19:41 Medical Screening Exam initiated kb 22:10 Differential diagnosis: Anemia asthma, Bronchitis Chronic Obstructive Pulmonary Disease kb pneumonia, pulmonary edema. Data reviewed: vital signs, nurses notes. Consideration of Admission/Observation Patient was admitted/placed on observation. Escalation of care including admission/observation considered. Management of patient was discussed with the following: Hospitalist: Pt accepted for admission under Dr Saleh by [facility]. Counseling: I had a detailed discussion with the patient and/or guardian regarding the historical points, exam findings, and any diagnostic results supporting the discharge/admit diagnosis, lab results, radiology results, the need for further work-up and treatment in the hospital. 10/13 19:46 Order name: Basic Metabolic Panel; Complete Time: 21:18 kb 10/13 19:46 Order name: CBC with Diff; Complete Time: 21:46 kb 10/13 19:46 Order name: Magnesium; Complete Time: 21:18 kb 10/13 19:46 Order name: NT PRO-BNP; Complete Time: 21:18 kb 10/13 19:46 Order name: Troponin HS; Complete Time: 21:18 kb 10/13 21:43 Order name: CBC Smear Scan; Complete Time: 21:46 EDMS 10/13 22:48 Order name: Basic Metabolic Panel EDMS 10/14 01:22 Order name: Glucose, Ancillary Testing; Complete Time: 01:22 EDMS 10/13 19:46 Order name: XRAY Chest (1 view); Complete Time: 20:34 kb 10/13 19:46 Order name: Cardiac monitoring; Complete Time: 21:07 kb 10/13 19:46 Order name: EKG - Nurse/Tech; Complete Time: 20:35 kb 10/13 19:46 Order name: IV Saline Lock; Complete Time: 20:35 kb 10/13 19:46 Order name: Labs collected and sent; Complete Time: 21:07 kb 10/13 19:46 Order name: O2 Per Protocol; Complete Time: 21:07 kb 10/13 19:46 Order name: O2 Sat Monitoring; Complete Time: 21:07 kb EC: Rate is 103 beats/min. Rhythm is regular. QRS [place] is Normal. [place] interval is normal at kb 164 msec. QRS interval is normal at 98 msec. QT interval is normal at 448 msec. Administered Medications: 22:25 Drug: Insulin Regular Human IVP 10 units IVP once {Co-Signature: br2 (Chrissy Espana kd3 RN).} Route: IVP; Site: right antecubital; 22:32 Drug: NS 0.9% IV 1000 ml IV at 1000 ml once; to be given as a bolus over 60 minutes kd3 Route: IV; Rate: 1000 ml; Site: right antecubital; 22:32 Drug: Tussionex Pennkinetic ER PO Suspension 2.5 ml PO once Route: PO; kd3 Disposition: 22:10 Critical Care:. kb Disposition Summary: 10/13/24 22:10 Hospitalization Ordered Notes: Hospitalization Status: Observation kb Provider: Karlo Saleh Condition: Stable kb Problem: new kb Symptoms: are unchanged kb Bed/Room Type: Standard Location: Intensive Care Unit(10/14/24 02:23) Room Assignment: 3-(10/14/24 02:23) Diagnosis - Hyperglycemia, unspecified kb - Dyspnea kb Forms: - Medication Reconciliation Form kb - SBAR form kb - Leadership Thank You Letter kb Critical care time excluding procedures: 22:10 Critical care time: Bedside Care: 15 minutes, Consultation: 15 minutes. Total time: 30 kb minutes Addendum: 10/23/2024 16:22 Co-signature as Attending Physician, Ethan Ray MD I agree with the assessment and c baldwin plan of care. Signatures: Dispatcher [employer] EDIndigo Barba, RESIDENTIAL DOOR INSTALLER-C RESIDENTIAL DOOR INSTALLER-Ckb Steffany Vasquez, RN RN Ethan Oro MD MD cha Able, Lacie RN RN lg3 Joanne Belle RN RN kd3 Chrissy Espana RN br2 Corrections: (The following items were deleted from the chart) 10/13 19:47 19:47 Chest Single View+RAD.RAD.BRZ ordered. [facility] 10/14 02:23 10/13 22:10 Telemetry/MedSurg (observation) [facility] 10/14 02:23 10/13 22:10 kb felicita
--- NOTE | 2024-10-13 22:11 | ER ---
Nurse's Notes [facility] Name: Radha Santos Age: 64 yrs Sex: Female : 1960 Arrival Date: 10/13/2024 Time: 19:24 Bed 19 Private MD: Diagnosis: Hyperglycemia, unspecified;Dyspnea Presentation: 10/13 20:16 Chief complaint: EMS states: [facility] bring a pt presenting with SOB and a cough for kd3 2 weeks. Worsening SOB today especially with activity. Pt had been prescribed steroids for this issue. PT has expiratory wheezing on arrival. A\T\A tx administered in route. Pt also mentions chest pains. Coronavirus screen: Vaccine status: unknown. Ebola Screen: No symptoms or risks identified at this time. Initial Sepsis Screen: Does the patient meet any 2 criteria? No. Patient's initial sepsis screen is negative. Does the patient have a suspected source of infection? No. Patient's initial sepsis screen is negative. Risk Assessment: Do you want to hurt yourself or someone else? Patient reports no desire to harm self or others. Onset of symptoms was October 13, 2024. 20:16 Method Of Arrival: EMS: [facility] kd3 20:16 Acuity: SAURAV 3 kd3 Triage Assessment: 20:19 General: Appears uncomfortable, Behavior is calm, cooperative. Pain: Complains of pain kd3 in chest. Historical: - Allergies: 20:19 miconazole; kd3 20:19 skin cleanser combination no.17; kd3 - Home Meds: 22:27 tramadol 50 mg Oral tablet 2 times per day [Active]; temazepam 30 mg Oral capsule every lg3 day at bedtime [Active]; duloxetine 60 mg oral capsule,delayed release (e.c.) 2 caps daily [Active]; divalproex 250 mg oral Tablet, Extended Release 24 hr 3 tabs [Active]; quetiapine 400 mg oral tablet [Active]; trazodone 150 mg Oral tablet 1 tab nightly [Active]; simvastatin 20 mg Oral tablet every day at bedtime [Active]; donepezil 10 mg oral tablet every day at bedtime [Active]; pantoprazole 40 mg oral granules delayed release for susp packet daily [Active]; amlodipine 5 mg tablet daily [Active]; losartan 50 mg oral tablet daily [Active]; meloxicam 7.5 mg oral tablet [Active]; tizanidine 2 mg oral capsule 2 times per day [Active]; gabapentin 300 mg oral capsule 2 times per day [Active]; - PMHx: 20:19 Asthma; Asthma; Back pain; CVA; hyperthyroidism; hiatal hernia; Gastric ulcer bleed kd3 (wrist); Anemia; peptic ulcer disease; peptic ulcer disease; Migraine; Kidney stone; hemorrhoids; - PSHx: 20:19 section; section; surgery on nerve in right arm; knee; Bladder; kd3 wrist; Cholecystectomy; - Immunization history:: Adult Immunizations up to date. - Infectious Disease History:: Denies. - Social history:: Smoking status: unknown. Screenin:20 [facility] ED Fall Risk Assessment (Adult) History of falling in the last 3 months, kd3 including since admission No falls in past 3 months (0 pts) Confusion or Disorientation No (0 pts) Intoxicated or Sedated No (0 pts) Impaired Gait Yes (1 pt) Mobility Assist Device Used No (0 pt) Altered Elimination No (0 pt) Score/Fall Risk Level 0 - 2 = Low Risk Educated pt \T\ family on fall prevention, incl call for assistance when getting out of bed. Abuse screen: Denies threats or abuse. Denies injuries from another. Nutritional screening: No deficits noted. Tuberculosis screening: No symptoms or risk factors identified. Assessment: 22:45 General: Appears in no apparent distress. Behavior is calm, cooperative. Neuro: Level kd3 of Consciousness is awake, alert, obeys commands, Oriented to person, place, time, situation. Cardiovascular: Capillary refill < 3 seconds. Respiratory: Airway is patent Trachea midline Respiratory effort is even, unlabored, Respiratory pattern is regular, symmetrical. Vital Signs: 20:16 BP 110 / 94; Pulse 104; Resp 20; Temp 97.7(O); Pulse Ox 94% on NC; Weight 102 kg; kd3 22:33 BP 161 / 87; Pulse 88; Resp 20; Pulse Ox 96% on R/A; kd3 23:20 BP 159 / 66; Pulse 87; Resp 19; Pulse Ox 97% on R/A; kd3 ED Course: 19:29 Patient arrived in ED. lg3 19:41 Indigo Andrews FNP-C [facility]. kb 19:41 Ethan Ray MD is Attending Physician. kb 20:11 XRAY Chest (1 view) In Process Unspecified. EDMS 20:15 Joanne Belle, RN is Primary Nurse. kd3 20:19 Triage completed. kd3 20:19 Arm band placed on right wrist. EKG completed in triage. Results shown to MD. kd3 20:30 Inserted saline lock: 20 gauge in right antecubital area, using aseptic technique. kd3 Blood collected. Flushed with 10 mL NS. 21:07 Troponin HS Sent. kd3 21:07 NT PRO-BNP Sent. kd3 21:07 Magnesium Sent. kd3 21:07 Basic Metabolic Panel Sent. kd3 22:10 Karlo Saleh MD is Hospitalizing Provider. kb 22:45 Patient has correct armband on for positive identification. kd3 23:18 IV discontinued, intact, bleeding controlled, No redness/swelling at site. Pressure kd3 dressing applied. 23:18 No provider procedures requiring assistance completed. Accessed mid line Clean \T\ dry. kd3 Good blood return. Flushes easily. 20 gauge . Administered Medications: 22:25 Drug: Insulin Regular Human IVP 10 units IVP once {Co-Signature: br2 (Chrissy Espana3 RN).} Route: IVP; Site: right antecubital; 22:32 Drug: NS 0.9% IV 1000 ml IV at 1000 ml once; to be given as a bolus over 60 minutes kd3 Route: IV; Rate: 1000 ml; Site: right antecubital; 22:32 Drug: Tussionex Pennkinetic ER PO Suspension 2.5 ml PO once Route: PO; kd3 Medication: 20:20 VIS not applicable for this client. kd3 Outcome: 22:10 Decision to Hospitalize by Provider. kb 10/14 03:19 Patient left the ED. kd3 Signatures: Dispatcher [employer] EDMS Indigo Andrews, ESTER ALEGRE-Erin Campbell, RN RN [email or web address] Joanne Belle, RN RN kd3 Chrissy Espana RN br2
[2024-10-13] MEDS ORDERED: HYDROCODONE/CHLORPHEN 5 ML/OSYR ONE (22:21)
[2024-10-13] MEDS ORDERED: INSULIN REGULAR (HUMAN) 100 UNIT/ML ONE (22:23)
[2024-10-13] MEDS ORDERED: NA CHLORIDE 0.9% 1,000 ML ONE (22:23)
--- NOTE | 2024-10-13 22:47 | P.HP ---
Patient History Date of Service: 10/13/24 Allergies miconazole [From Monistat 3] Allergy (Verified 11/14/22 07:18) Rash skin cleanser combination no.17 [From Monistat 3] Allergy (Verified 11/14/22 07:18) Rash Home Medications: Losartan Potassium 1 tab PO DAILY 10/11/21 Simvastatin 20 mg PO BEDTIME 10/11/21 Quetiapine [Seroquel*] 300 mg PO BEDTIME 05/15/22 Albuterol Inhaler [Ventolin Inhaler*] 1 puff IH Q4HP PRN 06/07/22 Fluticasone [Flonase 50MCG Nasal [place]*] 2 spray KARON DAILY 06/07/22 Montelukast [Singulair*] 10 mg PO DAILY 06/07/22 Omeprazole [Prilosec] 40 mg PO DAILY 06/07/22 Spironolactone [Aldactone*] 25 mg PO DAILY 06/07/22 Sucralfate [Carafate*] 1 gm PO BID 06/07/22 Trazodone [Desyrel*] 150 mg PO BEDTIME 06/07/22 Acetaminophen with Codeine [Acetaminophen-Cod #4 Tablet] 1 tab PO Q6HP PRN 11/09/22 Amlodipine Besylate 5 mg PO DAILY 11/09/22 Deutetrabenazine [Austedo] 9 mg PO BID 11/09/22 Fluticasone/Umeclidin/Vilanter [Trelegy Ellipta 200-62.5-25] 2 puff IH DAILY 11/09/22 Levothyroxine Sodium 175 mcg PO DAILY 11/09/22 Polyethylene Glycol 3350 [Miralax] 17 gm PO DAILY 11/09/22 Tizanidine HCl [Zanaflex] 2 mg PO TIDP PRN 11/09/22 Guaifen W/Codeine Syrup [ROBITUSSIN A-C Syrup] 10 ml PO Q12HP PRN #150 ml 07/19/23 Nirmatrelvir/Ritonavir [Paxlovid 150-100 mg Pack] 3 tab PO BID #1 mily 07/19/23 predniSONE [Deltasone] 20 mg PO BID #20 tab 07/19/23 - Past Medical/Surgical History Diabetic: Yes -: depression -: bipolar -: hypertension -: cva -: asthma -: IDDM -: short term memory problems -: COPD -: hypothyroidism -: anemia -: gastric ulcers -: hysterectomy -: bilateral knee replacement -: susy -: csections -: right wrist surgery Psychosocial/ Personal History: Patient lives at home. - Family History Father -: Cancer Notes: skin Mother -: Heart disease, Diabetes Notes: Bipolar - Social History Alcohol use: No CD- Drugs: No Caffeine use: No Physical Examination - Studies Laboratory Data (last 24 hrs) 10/13/24 10/13/24 20:44 20:44 WBC 5.50 Hgb 9.7 L Hct 31.3 L Plt Count 156 Sodium 117 L* Potassium 4.2 BUN 14 Creatinine 1.47 H Glucose 1034 H* Magnesium 2.0 Assessment and Plan - Advance Directives Does patient have a Living Will: No Does patient have a Durable POA for Healthcare: No
[2024-10-13] MEDS ORDERED: ONDANSETRON 4 MG/2 ML VIAL IV PRN (22:49)
[2024-10-13] MEDS ORDERED: ACETAMINOPHEN 500 MG TAB PO PRN (22:49)
[2024-10-13] MEDS: INSULIN GLARGINE 100 UNIT/ML SQ SCH (22:54)
[2024-10-13] MEDS: NA CHLORIDE 0.9% 1,000 ML IV SCH (23:00)
[2024-10-13] MEDS: ALBUTEROL 2.5 MG/3 ML NEB SOL NEB SCH (23:20)
--- NOTE | 2024-10-13 23:31 | P.HP ---
Date of Service: 10/13/24 Certification for Inpatient Patient admitted to: Inpatient Practitioner: I am a practitioner with admitting privileges, knowledge of patient current condition, hospital course, and medical plan of care. Services: Services provided to patient in accordance with Admission requirements found in Title 42 Section 412.3 of the Code of Federal Regulations Patient History Date of Service: 10/13/24 Reason for admission: Hyperglycemia History of Present Illness: 64-year-old female with a past medical history ; Asthma; Back pain; CVA; hyperthyroidism; hiatal hernia; Gastric ulcer bleed; Anemia; peptic ulcer disease; peptic ulcer disease; Migraine; Kidney stone; hemorrhoids; presents to the emergency room with generalized weakness, urinary frequency. She reports recently being treated for asthma exacerbation, has been on steroids for 3 weeks. Reports urinary frequency. She reports cough from asthma, mild wheezing. She denies fever, recent infection, nausea vomiting diarrhea, abdominal pain. ER evaluation Rate is 103 beats/min. Rhythm is regular. QRS [place] is Normal. [place] interval is normal at164 msec. QRS interval is normal at 98 msec. QT interval is normal at 448 msec, laboratory evaluation, glucose 1034, sodium 117, BNP 339, microcytic anemia, 9.7, 31.3, Plan to admit for HHNK, hyperglycemia, pseudohyponatremia, asthma exacerbation. Review of Systems 10-point ROS is otherwise unremarkable Physical Examination - Physical Exam General: Alert, In no apparent distress, Oriented x3 HEENT: Atraumatic, Normocephalic Neck: Supple, 2+ carotid pulse no bruit, JVD not distended Respiratory: Normal air movement, Expiratory wheezes Cardiovascular: Normal pulses, Regular rate/rhythm, Normal S1 S2 Capillary refill: <2 Seconds Gastrointestinal: Normal bowel sounds, Soft and benign Musculoskeletal: No clubbing, No swelling, generalized weakness Integumentary: No breakdown, No significant lesion Neurological: Normal gait, Normal speech, Normal strength at 5/5 x4 extr, Cranial nerves 3-12 intact Assessment and Plan - Problems (Diagnosis) (1) HHNC (hyperglycemic hyperosmolar nonketotic coma) Current Visit: Yes Status: Acute (2) Pseudohyponatremia Current Visit: Yes Status: Acute (3) Asthma exacerbation Current Visit: Yes Status: Acute (4) Diabetes type 2 Current Visit: Yes Status: Acute Qualifiers: 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 use: without half-way use Diabetes mellitus complication status: without complication Qualified Code(s): E11.9 - Type 2 diabetes mellitus without complications (5) Peptic ulcer disease Current Visit: Yes Status: Acute (6) Depression Current Visit: Yes Status: Acute Qualifiers: Depression Type: unspecified Qualified Code(s): F32.A - Depression, unspecified (7) Anxiety Current Visit: Yes Status: Acute - Plan Admit to ICU -IV fluids -Blood glucose greater than 1000, sodium 119, -Insulin, start long-acting insulin, -Accu-Cheks every 6 hours -Resume home meds -Every 4 hours BMP -A1c, lipid panel -Trend electrolytes replace as needed -Nebs, resume home inhalers -Advance diet when blood glucose controlled Diet clear liquid, full code DVT Lovenox Disposition, lives alone, independent prior, son is caregiver Discharge Plan: Home - Advance Directives Does patient have a Living Will: No Does patient have a Durable POA for Healthcare: No - Code Status/Comfort Care Code Status: Full Code Critical Care: Yes Time Spent Managing Pts Care (In Minutes): 65 <Akua Cleveland - Last Filed: 10/13/24 23:34> Chart has been reviewed. Events of the last 24 hours have been noted. Case discussed with RONALDO. I performed a substantial part of the MDM during this patie nt's care today. I personally made or approved the documented management plan and acknowledge its risk of complications. I agree with the findings and documentation provided in the RONALDO's notes <Karlo Saleh - Last Filed: 10/18/24 02:46>
[2024-10-14] MEDS ORDERED: ACETAMINOPHEN 500 MG TAB ONE (01:17)
[2024-10-14] MEDS ORDERED: INSULIN GLARGINE 100 UNIT/ML SQ ONE (01:18)
[2024-10-14] MEDS ORDERED: INSULIN REGULAR (HUMAN) 100 UNIT/ML ONE (01:18)
[2024-10-14] MEDS ORDERED: NA CHLORIDE 0.9% 1,000 ML ONE (01:19)
[2024-10-14 01:45] VITALS: BMI 36.3
[2024-10-14] MEDS ORDERED: ALBUTEROL 2.5 MG/3 ML NEB SOL ONE (01:53)
[2024-10-14 04:08] LABS: ALT/SGPT 20 U/L (13-56); Albumin 2.8 g/dL (3.4-5.0); Albumin/Globulin Ratio 0.8 (1.1-1.8); Alkaline Phosphatase 73 U/L (45-117); Anion Gap 10.4 mEq/L (5.0-15.0); BUN Blood Urea Nitrogen 12 mg/dL (7-18); Bicarbonate 25 mEq/L (21-32); Bilirubin Total 0.3 mg/dL (0.2-1.0); Globulin 3.4 g/dL (2.3-3.5); Glomerular Filtration Rate 59 ml/min (=/>90); Glucose Level 352 mg/dL (74-106); Protein, Total 6.2 g/dL (6.4-8.2); Sodium Level 128 mEq/L (136-145)
[2024-10-14 04:09] LABS: AST/SGOT 11 U/L (15-37); Bilirubin Direct < 0.2 mg/dL (0-0.2); Bilirubin Indirect, Calculated 0.1 mg/dL (0.2-0.8); Potassium 3.4 mEq/L (3.5-5.1)
[2024-10-14] MEDS: NA CHLORIDE 0.9% 1,000 ML IV SCH (05:41)
[2024-10-14] MEDS ORDERED: FLU (Fluarix Triv) TS24-25(6MOS UP)/PF 45 MCG/0.5 ML Syringe IM ONE (07:30)
[2024-10-14] MEDS ORDERED: PNEUMOCOCCAL VACCINE 0.5 ML IMVAC ONE (08:00)
[2024-10-14 08:10] LABS: Absolute Eosinophils 0.1 K/uL (0-0.5); Absolute Monocytes 0.7 K/uL (0.1-1.3); Absolute Neutrophil 4.2 K/uL (1.8-8.0); Basophils % 0.4 % (0-1.3); Hematocrit 29.3 % (36.0-45.0); Hemoglobin 9.7 g/dL (12.0-15.0); Lymphocytes % 16.6 % (15.3-44.8); MCH 28.1 pg (27.0-35.0); MCHC 33.2 g/dL (32.0-36.0); MCV 84.9 fL (80-100); MPV 9.3 fL (7.6-11.3); Monocytes % 11.4 % (3.3-12.3); Neutrophils % 70.6 % (41.7-73.7); Nucleated Red Blood Cells % 0.6 % (0-0); Platelets 158 thou/uL (152-406); RBC Red Blood Cell Count 3.45 M/uL (3.86-4.86)
[2024-10-14 08:19] LABS: Anion Gap 8.9 mEq/L (5.0-15.0); Magnesium 1.8 mg/dL (1.6-2.4); Potassium 2.9 mEq/L (3.5-5.1)
[2024-10-14] MEDS: HOME MED 1 EA UNK (Fluticasone/Umeclidin/Vilanter [Trelegy Ellipta 200-62.5-25] Blst.W.Dev IH SCH (09:00)
[2024-10-14] MEDS ORDERED: LEVOTHYROXINE SODIUM 175 MCG PO SCH (09:00)
[2024-10-14] MEDS: AMLODIPINE 5 MG TAB PO SCH (09:41)
[2024-10-14] MEDS: SPIRONOLACTONE 25 MG TABLET PO SCH (09:41)
[2024-10-14] MEDS: MONTELUKAST 10 MG TAB PO SCH (09:41)
[2024-10-14] MEDS: LOSARTAN POTASSIUM 50 MG TABLET PO SCH (09:41)
[2024-10-14] MEDS: GUAIFENESIN/CODEINE 5ML UCUP PO PRN (09:42)
[2024-10-14] MEDS: CODEINE 30MG/APAP 300MG TAB PO PRN (10:31)
--- NOTE | 2024-10-14 10:41 | P.PN ---
Date of Service: 10/14/24 Subjective: Low blood sugars this morning. Now improved after wearing shoes. She continues to wheeze. Discussed with nursing staff about restarting her medications Review of Systems 10-point ROS is otherwise unremarkable Physical Examination - Physical Exam General: Alert, In no apparent distress, Oriented x3 HEENT: Atraumatic, Normocephalic Neck: Supple, 2+ carotid pulse no bruit, JVD not distended Respiratory: Normal air movement, Expiratory wheezes Cardiovascular: Normal pulses, Regular rate/rhythm, Normal S1 S2 Capillary refill: <2 Seconds Gastrointestinal: Normal bowel sounds, Soft and benign Musculoskeletal: No clubbing, No swelling, generalized weakness Integumentary: No breakdown, No significant lesion Neurological: Normal gait, Normal speech, Normal strength at 5/5 x4 extr, Cranial nerves 3-12 intact Assessment and Plan - Problems (Diagnosis) (1) HHNC (hyperglycemic hyperosmolar nonketotic coma) Current Visit: Yes Status: Acute (2) Pseudohyponatremia Current Visit: Yes Status: Acute (3) Asthma exacerbation Current Visit: Yes Status: Acute (4) Diabetes type 2 Current Visit: Yes Status: Acute Qualifiers: 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 Replete potassium -Blood sugar improved, monitor for hypoglycemia -Continue insulin. She states she has not been taking diabetic medication in a while -Accu-Cheks every 6 hours -Restart trazodone, Seroquel, Depakote, Cymbalta, gabapentin -Every 4 hours BMP -A1c at 12.4 -Lipid panel reviewed -Trend electrolytes replace as needed -Nebs, resume home inhalers -Advance diet when blood glucose controlled Diet clear liquid, full code DVT Lovenox Disposition, lives alone, independent prior, son is caregiver Discharge Plan: Home - Advance Directives Does patient have a Living Will: No Does patient have a Durable POA for Healthcare: No - Code Status/Comfort Care Code Status: Full Code Critical Care: Yes Time Spent Managing Pts Care (In Minutes): 65
--- NOTE | 2024-10-14 10:57 | EKG ---
Test Date: 2024-10-13 Test Time: 20:18:13 Care Advocate: SAVAGE MEASUREMENT RESULTS: Intervals: Rate: 103 NJ: 164 QRSD: 98 QT: 342 QTc: 448 Lester: P: 59 NJ: 164 QRS: 47 T: 21 INTERPRETIVE STATEMENTS: Sinus tachycardia Otherwise normal ECG Compared to ECG 09/08/2024 15:42:33 Sinus rhythm no longer present Myocardial infarct finding no longer present Electronically Signed On 10-14-24 10:56:07 CDT by Pablo Edwards
[2024-10-14] MEDS: POTASSIUM CL SA 10 MEQ TAB PO ONE (14:50)
[2024-10-14] MEDS: BENZONATATE 100 MG CAP PO PRN (15:52)
[2024-10-14] MEDS: INSULIN REGULAR (HUMAN) 100 UNIT/ML SQ SCH ×2 (16:30)
[2024-10-14] MEDS: GABAPENTIN 300 MG CAP PO SCH (20:13)
[2024-10-14] MEDS: TRAZODONE 150 MG TAB PO SCH (20:13)
[2024-10-14] MEDS: QUETIAPINE 100MG TAB PO SCH (20:14)
[2024-10-14] MEDS: TEMAZEPAM 15 MG CAP PO SCH (20:14)
[2024-10-14] MEDS: TRAMADOL HCL 50 MG TAB PO SCH (20:14)
[2024-10-14] MEDS: DIVALPROEX DR 250 MG TAB PO SCH (20:14)
[2024-10-14] MEDS: DONEPEZIL HCL 5 MG TAB PO SCH (20:14)
[2024-10-14] MEDS: ATORVASTATIN 10 MG TAB PO SCH (20:14)
[2024-10-14] MEDS ORDERED: HOME MED 1 EA UNK (Simvastatin [Simvastatin] 20 MG Tablet) PO SCH (21:00)
[2024-10-14] MEDS ORDERED: QUETIAPINE 100MG TAB PO SCH (21:00)
[2024-10-14] MEDS ORDERED: HOME MED 1 EA UNK (Donepezil Hcl [Donepezil Hcl] 10 MG Tablet) PO SCH (21:00)
[2024-10-14] MEDS ORDERED: HOME MED 1 EA UNK (Simvastatin [Zocor] 20 MG Tablet) PO SCH (21:00)
[2024-10-14] MEDS ORDERED: TRAZODONE 150 MG TAB PO SCH (21:00)
[2024-10-15] MEDS: LEVOTHYROXINE SOD 0.1 MG TAB PO SCH (05:13)
[2024-10-15] MEDS: LEVOTHYROXINE SOD 0.075 MG TAB PO SCH (05:13)
[2024-10-15] MEDS: IPRATROPIUM BROM 0.5MG/2.5ML NEB ONE (05:43)
[2024-10-15 07:42] LABS: Absolute Basophils 0.1 K/uL (0-0.5); Absolute Lymphocytes (CBC) 0.7 K/uL (0.7-4.9); Absolute Monocytes 0.5 K/uL (0.1-1.3); Absolute Neutrophil 3.6 K/uL (1.8-8.0); Basophils % 1.2 % (0-1.3); Eosinophils % 0.8 % (0-4.4); Hemoglobin 9.5 g/dL (12.0-15.0); MCH 28.5 pg (27.0-35.0); MCHC 32.8 g/dL (32.0-36.0); MCV 86.9 fL (80-100); Monocytes % 9.9 % (3.3-12.3); Neutrophils % 73.1 % (41.7-73.7); Nucleated Red Blood Cells % 0.1 % (0-0); Platelets 126 thou/uL (152-406); RBC Red Blood Cell Count 3.33 M/uL (3.86-4.86); Red Cell Distribution Width 21.2 % (12.1-15.2)
[2024-10-15 07:56] LABS: Anion Gap 7.6 mEq/L (5.0-15.0); Magnesium 1.6 mg/dL (1.6-2.4); Potassium 3.6 mEq/L (3.5-5.1)
[2024-10-15] MEDS: DIVALPROEX DR 250 MG TAB PO SCH (08:06)
[2024-10-15] MEDS: DULOXETINE 30 MG CAP PO SCH (08:06)
[2024-10-15] MEDS: QUETIAPINE 100MG TAB PO SCH (08:06)
[2024-10-15] MEDS ORDERED: HOME MED 1 EA UNK (Duloxetine Hcl [Cymbalta] 60 MG Capsule.Dr) PO SCH (09:00)
[2024-10-15] MEDS ORDERED: LOSARTAN POTASSIUM 50 MG TABLET PO SCH (09:00)
[2024-10-15] MEDS: POTASSIUM CL SA 10 MEQ TAB PO ONE (12:00)
[2024-10-15] MEDS: MAGNESIUM SULFATE 1 gm IVPB 1 GM/100 ML BAG IV ONE (12:00)
--- NOTE | 2024-10-15 13:10 | P.PN ---
Date of Service: 10/15/24 Subjective: States she still feels very wheezy. On room air. Some soft pressures this morning Review of Systems 10-point ROS is otherwise unremarkable Physical Examination - Physical Exam General: Alert, In no apparent distress, Oriented x3 HEENT: Atraumatic, Normocephalic Neck: Supple, 2+ carotid pulse no bruit, JVD not distended Respiratory: Normal air movement, moderate expiratory wheezes Cardiovascular: Normal pulses, Regular rate/rhythm, Normal S1 S2 Capillary refill: <2 Seconds Gastrointestinal: Normal bowel sounds, Soft and benign Musculoskeletal: No clubbing, No swelling, generalized weakness Integumentary: No breakdown, No significant lesion Neurological: Normal gait, Normal speech, Normal strength at 5/5 x4 extr, Cranial nerves 3-12 intact Assessment and Plan - Problems (Diagnosis) (1) HHNC (hyperglycemic hyperosmolar nonketotic coma) Current Visit: Yes Status: Acute (2) Pseudohyponatremia Current Visit: Yes Status: Acute (3) Asthma exacerbation Current Visit: Yes Status: Acute (4) Diabetes type 2 with hyperglycemia Current Visit: Yes Status: Acute Qualifiers: 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 use: without termite treater helper use Diabetes mellitus complication status: without complication Qualified Code(s): E11.9 - Type 2 diabetes mellitus without complications (5) Peptic ulcer disease Current Visit: Yes Status: Acute (6) Depression Current Visit: Yes Status: Acute Qualifiers: Depression Type: unspecified Qualified Code(s): F32.A - Depression, unspecified (7) Anxiety Current Visit: Yes Status: Acute - Plan -Transfer out of ICU -Sodium improving -Changed to aggressive sliding scale insulin due to hyperglycemia, A1c at 12.4 -Accu-Cheks every 6 hours -Restart trazodone, Seroquel, Depakote, Cymbalta, gabapentin -Start prednisone 40 mg daily for asthma exacerbation. Monitor blood sugars closely -Lipid panel reviewed -Trend electrolytes replace as needed -Nebs, resume home inhalers -Continue levothyroxine. Check TSH -Hypokalemia resolved Diet clear liquid, full code DVT Lovenox Disposition, lives alone, independent prior, son is caregiver Discharge Plan: Home - Advance Directives Does patient have a Living Will: No Does patient have a Durable POA for Healthcare: No - Code Status/Comfort Care Code Status: Full Code Critical Care: Yes Time Spent Managing Pts Care (In Minutes): 65
[2024-10-15] MEDS: INSULIN REGULAR (HUMAN) 100 UNIT/ML SQ SCH (16:48)
[2024-10-15] MEDS: predniSONE 20 MG TAB PO SCH (20:39)
[2024-10-16] MEDS: IPRATROPIUM BROM 0.5MG/2.5ML ONE (04:59)
[2024-10-16 06:00] LABS: Absolute Lymphocytes (CBC) 0.5 K/uL (0.7-4.9); Absolute Monocytes 0.2 K/uL (0.1-1.3); Absolute Neutrophil 3.5 K/uL (1.8-8.0); Basophils % 0.8 % (0-1.3); Eosinophils % 0.1 % (0-4.4); Hemoglobin 8.9 g/dL (12.0-15.0); Lymphocytes % 12.1 % (15.3-44.8); MCH 28.8 pg (27.0-35.0); MCHC 32.8 g/dL (32.0-36.0); MCV 87.8 fL (80-100); MPV 9.1 fL (7.6-11.3); Monocytes % 5.7 % (3.3-12.3); Neutrophils % 81.3 % (41.7-73.7); Nucleated Red Blood Cells % 0.2 % (0-0); Platelets 115 thou/uL (152-406); RBC Red Blood Cell Count 3.08 M/uL (3.86-4.86); Red Cell Distribution Width 21.6 % (12.1-15.2)
--- NOTE | 2024-10-16 14:48 | P.PN ---
Date of Service: 10/16/24 Subjective: No overnight events. We discussed consulting pulmonology for wheezing. Denies fevers and chills. Review of Systems 10-point ROS is otherwise unremarkable Physical Examination - Physical Exam General: Alert, In no apparent distress, Oriented x3 HEENT: Atraumatic, Normocephalic Neck: Supple, 2+ carotid pulse no bruit, JVD not distended Respiratory: Normal air movement, moderate expiratory wheezes Cardiovascular: Normal pulses, Regular rate/rhythm, Normal S1 S2 Capillary refill: <2 Seconds Gastrointestinal: Normal bowel sounds, Soft and benign Musculoskeletal: No clubbing, No swelling, generalized weakness Integumentary: No breakdown, No significant lesion Neurological: Normal gait, Normal speech, Normal strength at 5/5 x4 extr, Cranial nerves 3-12 intact Assessment and Plan Asthma exacerbation Diabetes type 2 with hyperglycemia Peptic ulcer disease Depression / Anxiety HHNC (hyperglycemic hyperosmolar nonketotic coma) resolved Pseudohyponatremia resolved - Plan -Transfered out of ICU -Sodium improving. Pseudohyponatremia resolved -Consult Dr. Fairchild with pulmonology -Changed to aggressive sliding scale insulin due to hyperglycemia, A1c at 12.4 -Blood sugar improved, Accu-Cheks every 6 hours -Continue trazodone, Seroquel, Depakote, Cymbalta, gabapentin -Start prednisone 40 mg daily for asthma exacerbation. Monitor blood sugars closely -Lipid panel reviewed -Trend electrolytes replace as needed -Nebs, resume home inhalers -Continue levothyroxine. Check TSH -Hypokalemia resolved -Hyperglycemic hyperosmolar nonketotic coma resolved Diet: diabetic diet full code DVT Lovenox Disposition, lives alone, independent prior, son is caregiver Discharge Plan: Home - Advance Directives Does patient have a Living Will: No Does patient have a Durable POA for Healthcare: No - Code Status/Comfort Care Code Status: Full Code Critical Care: Yes Time Spent Managing Pts Care (In Minutes): 35
[2024-10-16] MEDS: IPRATROPIUM BROM 0.5MG/2.5ML NEB SCH (15:00)
--- NOTE | 2024-10-17 09:33 | P.PN ---
Subjective Date of Service: 10/17/24 Chief Complaint: Shortness of breath No new change patient still complains of shortness of breath elevated blood sugars A-fib bronchodilators steroids Trelegy has audible wheezing Review of Systems General: Weakness Respiratory: Shortness of Breath Physical Examination - Vital Signs Temperature: 97.6 F Blood Pressure: 153/79 Pulse: 78 Respirations: 18 Pulse Ox (%): 92 - Physical Exam General: Alert, Oriented x3, Mild distress Respiratory: Expiratory wheezes Cardiovascular: No edema, Regular rate/rhythm, Normal S1 S2 Assessment And Plan - Current Problems (Diagnosis) (1) Asthma exacerbation Onset Date: 11/04/14 Current Visit: No Status: Acute Plan: Patient is 64 years of age admitted with presumed asthma exacerbation not responding to outpatient therapy with steroids Trelegy bronchodilators she still continues to wheeze an echocardiogram given her dose of Lasix add Daliresp monitor room air pulse ox sugars are elevated reduce dose of steroids Qualifiers: Asthma severity: severe Asthma persistence: unspecified Qualified Code(s): J45.901 - Unspecified asthma with (acute) exacerbation (2) Diabetes Current Visit: Yes Status: Acute Plan: Patient is A1c is very elevated around 12.5 and will need to be started on insulin and metformin check urinalysis Qualifiers: Diabetes mellitus type: type 2 Diabetes mellitus 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
[2024-10-17] MEDS: FUROSEMIDE 40 MG/4 ML VIAL IV SCH (09:56)
[2024-10-17] MEDS: METFORMIN HCL 500 MG TAB PO SCH (09:57)
[2024-10-17 11:44] LABS: Specific Gravity 1.007 (1.005-1.030); Urine Bilirubin NEGATIVE (Negative); Urine Blood Negative (Negative); Urine Clarity Clear (Clear); Urine Color Colorless (Yellow); Urine Glucose 3+ (Negative); Urine Ketones NEGATIVE (Negative); Urine Microscopic Reflex YN NO UMIC; Urine Nitrite NEGATIVE (Negative); Urine Protein NEGATIVE (Negative); Urine Urobilinogen Normal (Normal); Urine pH 6.5 (5.0-7.0)
--- NOTE | 2024-10-17 13:42 | ECHO ---
HEIGHT: 5 ft 6 in WEIGHT: 225 lb 0 oz DATE OF STUDY: 10/17/[address]: Tejinder Fairchild MD 2-DIMENSIONAL: YSE M.MODE: YES DOPPLER: YES COLOR FLOW: YES TDS: YES PORTABLE: YES DEFINITY: NO BUBBLE STUDY: NO DIAGNOSIS: DYSPNEA CARDIAC HISTORY: CATHERIZATION: NO SURGERY: NO PROSTHETIC VALVE: NO PACEMAKER: NO MEASUREMENTS (cm) DIASTOLIC (NORMALS) SYSTOLIC (NORMALS) IVSd 1.2 (0.6-1.2) LA Diam 2.7 (1.9-4.0) LVEF 60-65% LVIDd 4.4 (3.5-5.7) LVIDs 3.1 (2.0-3.5) %FS 28% LVPWd 1.2 (0.6-1.2) Ao Diam 3.0 (2.0-3.7) 2 DIMENSIONAL ASSESSMENT: RIGHT ATRIUM: NORMAL LEFT ATRIUM: NORMAL RIGHT VENTRICLE: NORMAL LEFT VENTRICLE: NORMAL TRICUSPID VALVE: TRACE TRICUSPID REGURGITATION MITRAL VALVE: NORMAL PULMONIC VALVE: NORMAL AORTIC VALVE: NORMAL PERICARDIAL EFFUSION: NONE AORTIC ROOT: NORMAL LEFT VENTRICULAR WALL MOTION: NORMAL. DOPPLER/COLOR FLOW: NORMAL. COMMENTS: 1. NORMAL LEFT VENTRICULAR SYSTOLIC FUNCTION. LEFT VENTRICULAR EJECTION FRACTION 60-65%. NORMAL WALL MOTION. 2. NORMAL DIASTOLIC FUNCTION. TECHNOLOGIST: JULIETA CASH
[2024-10-17] MEDS: predniSONE 10 MG TAB PO SCH (20:25)
[2024-10-18] MEDS: INSULIN GLARGINE 100 UNIT/ML SQ SCH (09:04)
[2024-10-18] MEDS ORDERED: GLUCAGON 1 MG/VIAL IM PRN (10:56)
[2024-10-18] MEDS ORDERED: D50W 25 GM/50 ML SYRINGE IV PRN (10:56)
--- NOTE | 2024-10-18 10:59 | P.PN ---
Subjective Date of Service: 10/18/24 Chief Complaint: Asthma exacerbation No significant change may be slightly better apparently patient is drinking a lot of water is able to ambulate to the bathroom denies any fever or chills Review of Systems General: Weakness Respiratory: Shortness of Breath Physical Examination - Vital Signs Temperature: 98.1 F Blood Pressure: 145/71 Pulse: 89 Respirations: 16 Pulse Ox (%): 93 - Physical Exam General: Alert, Oriented x3 Respiratory: Expiratory wheezes Cardiovascular: No edema, Regular rate/rhythm, Normal S1 S2 Assessment And Plan - Current Problems (Diagnosis) (1) Asthma exacerbation Onset Date: 11/04/14 Current Visit: No Status: Acute Plan: Patient admitted with asthma exacerbation doing somewhat better still mildly hypoxic signs are stable will recheck labs ambulate Qualifiers: Asthma severity: severe Asthma persistence: unspecified Qualified Code(s): J45.901 - Unspecified asthma with (acute) exacerbation (2) Diabetes Current Visit: Yes Status: Acute Plan: Patient is A1c is significantly elevated will need to increase the insulin to 40 units a day for now Qualifiers: Diabetes mellitus type: type 2 Diabetes mellitus chcf insulin use: without chcf use
[2024-10-18 11:35] LABS: Hematocrit 28.7 % (36.0-45.0); Hemoglobin 9.7 g/dL (12.0-15.0); MCH 29.1 pg (27.0-35.0); MCHC 33.8 g/dL (32.0-36.0); MPV 9.3 fL (7.6-11.3); Platelets 183 thou/uL (152-406); RBC Red Blood Cell Count 3.33 M/uL (3.86-4.86); Red Cell Distribution Width 22.6 % (12.1-15.2)
[2024-10-18 11:49] LABS: ALT/SGPT 24 U/L (13-56); Albumin 2.7 g/dL (3.4-5.0); Albumin/Globulin Ratio 0.7 (1.1-1.8); Alkaline Phosphatase 78 U/L (45-117); Anion Gap 10.8 mEq/L (5.0-15.0); BUN Blood Urea Nitrogen 17 mg/dL (7-18); Bicarbonate 29 mEq/L (21-32); Bilirubin Total 0.3 mg/dL (0.2-1.0); Globulin 3.9 g/dL (2.3-3.5); Glomerular Filtration Rate 51 ml/min (=/>90); Glucose Level 393 mg/dL (74-106); Potassium 3.8 mEq/L (3.5-5.1); Protein, Total 6.6 g/dL (6.4-8.2); Sodium Level 130 mEq/L (136-145)
[2024-10-18 11:52] LABS: AST/SGOT < 10 U/L (15-37)
[2024-10-18] MEDS: INSULIN GLARGINE 100 UNIT/ML SQ ONE (11:54)
[2024-10-18] MEDS: ALBUTEROL 2.5 MG/3 ML NEB SOL NEB SCH (14:17)
[2024-10-18] MEDS: IPRATROPIUM BROM 0.5MG/2.5ML NEB SCH (14:17)
[2024-10-19] MEDS: INSULIN GLARGINE 100 UNIT/ML SQ SCH (08:46)
[2024-10-19] MEDS: METFORMIN HCL 500 MG TAB PO SCH (08:48)
[2024-10-19 09:37] LABS: Anion Gap 10.4 mEq/L (5.0-15.0); Potassium 4.4 mEq/L (3.5-5.1)
--- NOTE | 2024-10-19 10:58 | P.PN ---
Subjective Date of Service: 10/19/24 Chief Complaint: Asthma exacerbation Patient states that his shortness of breath is little bit better still wheezing sugars are improving Review of Systems General: Weakness Respiratory: Cough, Shortness of Breath Physical Examination - Vital Signs Temperature: 97.8 F Blood Pressure: 166/72 Pulse: 80 Respirations: 15 Pulse Ox (%): 94 - Physical Exam General: Alert, Oriented x3 Neck: Supple Respiratory: Expiratory wheezes Cardiovascular: No edema, Regular rate/rhythm, Normal S1 S2 Assessment And Plan - Current Problems (Diagnosis) (1) Asthma exacerbation Onset Date: 11/04/14 Current Visit: No Status: Acute Plan: Patient admitted with asthma exacerbation developed uncontrolled hyperglycemia from the use of steroid currently on maximum bronchodilator therapy will also ad d azithromycin Qualifiers: Asthma severity: severe Asthma persistence: unspecified Qualified Code(s): J45.901 - Unspecified asthma with (acute) exacerbation (2) Diabetes Current Visit: Yes Status: Acute Plan: Blood sugars are improving and is now on insulin and metformin blood pressure elevated increase amlodipine physical therapy discharge planning continue with present medication including azithromycin patient is on Trelegy at home oxygenation satisfactory Qualifiers: Diabetes mellitus type: type 2 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
[2024-10-19] MEDS: AZITHROMYCIN 250 MG TAB PO SCH (12:14)
[2024-10-19] MEDS: AMLODIPINE 10 MG TAB PO SCH (12:14)
[2024-10-19] MEDS: D10W 125 ML IV PRN (15:28)
[2024-10-19] MEDS: ALBUTEROL 2.5 MG/3 ML NEB SOL ONE (21:41)
[2024-10-19] MEDS: IPRATROPIUM BROM 0.5MG/2.5ML ONE (21:41)
--- NOTE | 2024-10-20 00:10 | P.PN ---
Date of Service: 10/20/24 Subjective Patient clinically feeling much better. Clinical symptoms have improved. Patient will need close outpatient follow-up. Physical Examination - Physical Exam Vitals: Reviewed General: Alert, In no apparent distress, Oriented x3 Respiratory: Normal air movement, Expiratory wheezes Cardiovascular: Normal pulses, Regular rate/rhythm, Normal S1 S2 Gastrointestinal: Normal bowel sounds, Soft and benign Musculoskeletal: No clubbing, No swelling, generalized weakness Integumentary: No breakdown, No significant lesion Neurological: No focal deficits Assessment and Plan - Problems (Diagnosis) (1) HHNC (hyperglycemic hyperosmolar nonketotic coma) Current Visit: Yes Status: Acute (2) Pseudohyponatremia Current Visit: Yes Status: Acute (3) Asthma exacerbation Current Visit: Yes Status: Acute (4) Diabetes type 2 Current Visit: Yes Status: Acute Qualifiers: Diabetes mellitus mcfp insulin use: without terminal worker use Diabetes mellitus complication status: without complication Qualified Code(s): E11.9 - Type 2 diabetes mellitus without complications (5) Peptic ulcer disease Current Visit: Yes Status: Acute (6) Depression Current Visit: Yes Status: Acute Qualifiers: Depression Type: unspecified Qualified Code(s): F32.A - Depression, unspecified (7) Anxiety Current Visit: Yes Status: Acute - Plan Continue with clinic as mentioned below: 1. Hyperosmolar nonketotic syndrome; continue on long-acting insulin. Continue with hydration as well. 2. Asthma exacerbation; 3. Type 2 diabetes 4. Peptic ulcer disease 5. History of depression/anxiety disorder Disposition, lives alone, independent prior, son is caregiver - Advance Directives Does patient have a Living Will: No Does patient have a Durable POA for Healthcare: No - Code Status/Comfort Care Code Status: Full Code Critical Care: Yes Time Spent Managing Pts Care (In Minutes): 35
[2024-10-20] MEDS: INSULIN GLARGINE 100 UNIT/ML SQ SCH (08:08)
[2024-10-20 09:29] LABS: Absolute Lymphocytes (CBC) 2.5 K/uL (0.7-4.9); Absolute Monocytes 0.9 K/uL (0.1-1.3); Absolute Neutrophil 2.4 K/uL (1.8-8.0); Basophils % 0.5 % (0-1.3); Eosinophils % 0.7 % (0-4.4); Hematocrit 30.4 % (36.0-45.0); Hemoglobin 9.9 g/dL (12.0-15.0); Lymphocytes % 43.2 % (15.3-44.8); MCH 28.2 pg (27.0-35.0); MCHC 32.7 g/dL (32.0-36.0); MCV 86.1 fL (80-100); MPV 8.7 fL (7.6-11.3); Monocytes % 15.3 % (3.3-12.3); Neutrophils % 40.3 % (41.7-73.7); Nucleated Red Blood Cells % 0.4 % (0-0); Platelets 249 thou/uL (152-406); RBC Red Blood Cell Count 3.53 M/uL (3.86-4.86); Red Cell Distribution Width 22.3 % (12.1-15.2)
[2024-10-20 09:39] LABS: Anion Gap 11.6 mEq/L (5.0-15.0); Potassium 3.6 mEq/L (3.5-5.1)
[2024-10-20 10:00] LABS: Blood Morphology Comment NOTED (NOT SEEN); Platelet Estimate ADEQ; Platelets Clumped FEW; White Blood Cell Scan OK (OK)
[2024-10-20 10:01] LABS: Anisocytosis 2+; Basophilic Stippling 1+; Macrocytosis SLIGHT; Polychromasia SLIGHT
[2024-10-20 23:00] VITALS: O2SAT 97
[2024-10-21 06:50] LABS: Absolute Basophils 0.1 K/uL (0-0.5); Absolute Lymphocytes (CBC) 2.1 K/uL (0.7-4.9); Absolute Monocytes 0.5 K/uL (0.1-1.3); Absolute Neutrophil 1.4 K/uL (1.8-8.0); Basophils % 1.2 % (0-1.3); Eosinophils % 0.8 % (0-4.4); Hemoglobin 9.2 g/dL (12.0-15.0); Lymphocytes % 50.4 % (15.3-44.8); MCH 28.8 pg (27.0-35.0); MCHC 32.8 g/dL (32.0-36.0); MCV 87.7 fL (80-100); MPV 8.5 fL (7.6-11.3); Monocytes % 13.3 % (3.3-12.3); Neutrophils % 34.3 % (41.7-73.7); Nucleated Red Blood Cells % 0.3 % (0-0); Platelets 265 thou/uL (152-406); Red Cell Distribution Width 21.7 % (12.1-15.2)
[2024-10-21 07:08] LABS: Anion Gap 8.1 mEq/L (5.0-15.0); Potassium 4.1 mEq/L (3.5-5.1)
--- NOTE | 2024-10-21 07:27 | RAD REPORT ---
Procedure: Chest Single View HISTORY: Cough COMPARISON: October 13, 2024 FINDINGS: The lungs appear clear of acute infiltrate. No significant pleural effusion noted. The heart is normal size. IMPRESSION: No acute abnormality is displayed.
[2024-10-21 12:06] VITALS: BP 112/55; TEMP 97.6
--- NOTE | 2024-10-29 00:47 | P.DS ---
Discharge Date: 10/21/24 Disposition: [place] HOME/HOME HEALTH CARE Discharge Condition: GOOD Reason for Admission: Asthma exacerbation Brief History of Present Illness: 64-year-old female with a past medical history ; Asthma; Back pain; CVA; hyperthyroidism; hiatal hernia; Gastric ulcer bleed; Anemia; peptic ulcer disease; peptic ulcer disease; Migraine; Kidney stone; hemorrhoids; presents to the emergency room with generalized weakness, urinary frequency. She reports recently being treated for asthma exacerbation, has been on steroids for 3 weeks. Reports urinary frequency. She reports cough from asthma, mild wheezing. She denies fever, recent infection, nausea vomiting diarrhea, abdominal pain. ER evaluation Rate is 103 beats/min. Rhythm is regular. QRS [place] is Normal. VT interval is normal at164 msec. QRS interval is normal at 98 msec. QT interval is normal at 448 msec, laboratory evaluation, glucose 1034, sodium 117, BNP 339, microcytic anemia, 9.7, 31.3, Plan to admit for HHNK, hyperglycemia, pseudohyponatremia, asthma exacerbation. Hospital Course: Patient is clinically doing well. Patient's symptoms have improved. Patient blood sugars are much stable. At this time, patient is clinically doing well and stable for discharge home. Vital Signs/Physical Exam: Temp Pulse Resp BP Pulse Ox 97.6 F 93 H 18 112/55 L 97 10/21/24 12:00 10/21/24 12:00 10/21/24 12:00 10/21/24 12:00 10/21/24 12:00 General: Alert, In no apparent distress, Oriented x3 Laboratory Data at Discharge: WBC 4.10 thou/uL (4.3-10.9) L 10/21/24 06:36 Hgb 9.2 g/dL (12.0-15.0) L 10/21/24 06:36 Hct 28.0 % (36.0-45.0) L 10/21/24 06:36 Plt Count 265 thou/uL (152-406) 10/21/24 06:36 Sodium 135 mEq/L (136-145) L 10/21/24 06:36 Potassium 4.1 mEq/L (3.5-5.1) D 10/21/24 06:36 BUN 16 mg/dL (7-18) 10/21/24 06:36 Creatinine 0.97 mg/dL (0.55-1.02) 10/21/24 06:36 Glucose 243 mg/dL (74-106) H 10/21/24 06:36 Magnesium 2.0 mg/dL (1.6-2.4) 10/16/24 05:40 Total Bilirubin 0.3 mg/dL (0.2-1.0) 10/18/24 11:20 AST < 10 U/L (15-37) L 10/18/24 11:20 ALT 24 U/L (13-56) 10/18/24 11:20 Alkaline Phosphatase 78 U/L (45-117) 10/18/24 11:20 Triglycerides 73 mg/dL (<150) 10/19/24 08:36 Cholesterol 127 mg/dL (<200) 10/19/24 08:36 HDL Cholesterol 71 mg/dL (40-60) H 10/19/24 08:36 Cholesterol/HDL Ratio 1.79 10/19/24 08:36 Home Medications: Amlodipine [Norvasc*] 5 mg PO DAILY 10/14/24 Benzonatate [Tessalon Perle*] 100 mg PO Q8HR PRN 10/14/24 Divalproex Sodium 2 cap PO BEDTIME 10/14/24 Divalproex Sodium 250 mg PO DAILY WITH BREAKFAST 10/14/24 Donepezil HCl 10 mg PO BEDTIME 10/14/24 Duloxetine HCl [Cymbalta] 120 mg PO DAILY 10/14/24 Fluticasone/Umeclidin/Vilanter [Trelegy Ellipta 200-62.5-25] 1 puff IH DAILY 10/14/24 Gabapentin 1 cap PO BID 10/14/24 Losartan Potassium [Cozaar*] 50 mg PO DAILY 10/14/24 Meloxicam [Mobic*] 7.5 mg PO LUNCH 10/14/24 Pantoprazole [Protonix Tab*] 40 mg PO DAILY 10/14/24 Quetiapine Fumarate [Seroquel] 1 tab PO BEDTIME 10/14/24 Quetiapine [Seroquel*] 200 mg PO DAILY WITH BREAKFAST 10/14/24 Simvastatin [Zocor] 20 mg PO BEDTIME 10/14/24 Temazepam [Restoril] 30 mg PO BEDTIME 10/14/24 Tizanidine HCl [Zanaflex] 2 mg PO BID 10/14/24 Trazodone [Desyrel*] 150 mg PO BEDTIME 10/14/24 traMADol HCL [Ultram*] 50 mg PO BID 10/14/24 Albuterol Neb [Proventil 0.083% Neb Soln] 2.5 mg NEB TIDRESP #60 amp 10/21/24 Azithromycin Tab [Zithromax*] 250 mg PO DAILY #5 tab 10/21/24 Fluticasone/Umeclidin/Vilanter [Trelegy Ellipta 200-62.5-25] 2 puff IH DAILY #1 inh 10/21/24 Guaifen W/Codeine Syrup [ROBITUSSIN A-C Syrup*] 10 ml PO Q12HP PRN #50 ml 10/21/24 Insulin Glargine,Hum.rec.anlog [Semglee] 10 unit SQ DAILY #10 ml 10/21/24 Ipratropium Neb [Atrovent*] 0.5 mg NEB [id number] #60 amp 10/21/24 Levothyroxine [Synthroid*] 0.15 mg PO DAILYAC #45 tab 10/21/24 Spironolactone [Aldactone*] 25 mg PO DAILY #30 tab 10/21/24 predniSONE [Deltasone] 20 mg PO DAILY #5 tab 10/21/24 New Medications: Spironolactone [Aldactone*] 25 mg PO DAILY #30 tab Ipratropium Neb [Atrovent*] 0.5 mg NEB [id number] #60 amp Fluticasone/Umeclidin/Vilanter [Trelegy Ellipta 200-62.5-25] 2 puff IH DAILY #1 inh predniSONE [Deltasone] 20 mg PO DAILY #5 tab Albuterol Neb [Proventil 0.083% Neb Soln] 2.5 mg NEB TIDRESP #60 amp Guaifen W/Codeine Syrup [ROBITUSSIN A-C Syrup*] 10 ml PO Q12HP PRN #50 ml PRN Reason: cough Insulin Glargine,Hum.rec.anlog [Semglee] 10 unit SQ DAILY #10 ml Levothyroxine [Synthroid*] 0.15 mg PO DAILYAC #45 tab Azithromycin Tab [Zithromax*] 250 mg PO DAILY #5 tab Physician Discharge Instructions: [facility] Change Release Manager Call Nitish Phillips at [phone] for questions or concerns after discharge. Expect a call within 1-2 business days of discharge. Alternate: Maddy Blancas MA at [phone] -DC IV and DC home -Follow-up with PCP in 1 to 2 weeks -Follow-up with Cardiology in 1 to 2 weeks -Follow-up with pulmonary in 2 to 4 weeks -Please call Dr. Saleh at [phone] if any questions regarding hospital stay -Please call nursing station at [phone] if any nursing or medication questions -Return to the emergency room if symptoms worsen Diet: ADA Activity: Fall precautions Followup: Mckenzie Barros MD [Primary Care Provider] - 1-2 Weeks Time spent managing pt's care (in minutes): 35
== END 2024-10-21 14:02 | disposition home health service (06) | DRG 638 ==
LOC: ER 19:24 → ERHOLD 22:47 → 3RD-ICU 10-14 03:10 → 4TH 10-14 16:50
PROVIDERS: ADMIT Hospitalist; ATTEND Hospitalist
DX: E11.01 Type 2 diabetes mellitus with hyperosmolarity with coma (principal); J45.901 Unspecified asthma with (acute) exacerbation; K27.3 Acute peptic ulcer, site unspecified, without hemorrhage or perforation; F32.A Depression, unspecified; F41.9 Anxiety disorder, unspecified; E03.9 Hypothyroidism, unspecified; D50.9 Iron deficiency anemia, unspecified; Z60.2 Problems related to living alone; Z79.4 Long term (current) use of insulin; Z79.52 Long term (current) use of systemic steroids; Z88.8 Allergy status to other drugs, medicaments and biological substances; Z90.49 Acquired absence of other specified parts of digestive tract; Z86.73 Personal history of transient ischemic attack (TIA), and cerebral infarction without residual deficits; Z79.899 Other long term (current) drug therapy
CPT/HCPCS: 36415; 71045; 80048; 80053; 80061; 80076; 81003; 82947; 83036; 83735; 83880; 84132; 84443; 84484; 85025; 85027; 93005; 93306; 94640; 96374; 97116; 97161; 97530; 99285; J1815; J1940; J3475; J7030; J7512; J7613; J7644

== ENCOUNTER 2024-11-01 19:23 | Inpatient (IN) | payer OTHER ==
[2024-11-01] MEDS ORDERED: ONDANSETRON 4 MG/2 ML VIAL ONE (20:15)
[2024-11-01] MEDS ORDERED: NA CHLORIDE 0.9% 1,000 ML ONE (20:15)
[2024-11-01 20:26] LABS: Specific Gravity 1.029 (1.005-1.030); Sqamous Epithelial <5 /HPF (None Seen); Urine Bacteria None Seen /HPF (<20); Urine Bilirubin NEGATIVE (Negative); Urine Blood Negative (Negative); Urine Clarity Clear (Clear); Urine Color Colorless (Yellow); Urine Culture Reflex Order NOT NEEDED; Urine Glucose 4+ (Over) (Negative); Urine Ketones 1+ (Negative); Urine Microscopic Reflex YN ORDER UMIC; Urine Nitrite NEGATIVE (Negative); Urine Protein NEGATIVE (Negative); Urine RBC <5 /HPF (None Seen); Urine Urobilinogen Normal (Normal); Urine WBC <5 /HPF (<5); Urine Yeast (Budding) Trace /HPF (None Seen); Urine pH 6.5 (5.0-7.0)
[2024-11-01 20:27] LABS: PT Prothrombin Time 10.5 SECONDS (10-13.0); Protime INR 0.92
[2024-11-01] MEDS ORDERED: INSULIN GLARGINE 100 UNIT/ML SQ ONE (20:28)
[2024-11-01] MEDS ORDERED: INSULIN REGULAR (HUMAN) 100 UNIT/ML ONE (20:29)
[2024-11-01] MEDS ORDERED: FAMOTIDINE 20 MG/2 ML VIAL IV ONE (20:29)
[2024-11-01 20:42] LABS: ALT/SGPT 24 U/L (13-56); AST/SGOT 12 U/L (15-37); Albumin/Globulin Ratio 0.7 (1.1-1.8); Alkaline Phosphatase 78 U/L (45-117); Anion Gap 10.2 mEq/L (5.0-15.0); BUN Blood Urea Nitrogen 12 mg/dL (7-18); Bicarbonate 25 mEq/L (21-32); Bilirubin Total 0.3 mg/dL (0.2-1.0); Globulin 4.2 g/dL (2.3-3.5); Glomerular Filtration Rate 60 ml/min (=/>90); Lipase 30 U/L (13-75); Magnesium 1.9 mg/dL (1.6-2.4); NT PRO-BNP 67 pg/mL (<125); Potassium 4.2 mEq/L (3.5-5.1); Protein, Total 7.2 g/dL (6.4-8.2); Sodium Level 128 mEq/L (136-145)
[2024-11-01 20:47] LABS: Bilirubin Direct < 0.2 mg/dL (0-0.2); Bilirubin Indirect, Calculated 0.1 mg/dL (0.2-0.8)
[2024-11-01 20:49] LABS: Glucose Level 485 mg/dL (74-106)
[2024-11-01 20:59] LABS: Absolute Lymphocytes (CBC) 1.4 K/uL (0.7-4.9); Absolute Monocytes 0.7 K/uL (0.1-1.3); Absolute Neutrophil 3.5 K/uL (1.8-8.0); Basophils % 0.6 % (0-1.3); Eosinophils % 0.8 % (0-4.4); Hematocrit 31.7 % (36.0-45.0); Hemoglobin 10.3 g/dL (12.0-15.0); Lymphocytes % 24.7 % (15.3-44.8); MCH 28.9 pg (27.0-35.0); MCHC 32.4 g/dL (32.0-36.0); MCV 89.2 fL (80-100); MPV 9.4 fL (7.6-11.3); Monocytes % 11.8 % (3.3-12.3); Neutrophils % 62.1 % (41.7-73.7); Nucleated Red Blood Cells % 0.1 % (0-0); Platelets 261 thou/uL (152-406); RBC Red Blood Cell Count 3.55 M/uL (3.86-4.86)
--- NOTE | 2024-11-01 21:26 | RAD REPORT ---
EXAMINATION: ONE VIEW CHEST XR CLINICAL INDICATION: Female, 64 years old.,COUGH TECHNIQUE: Frontal chest projection is submitted. Examination is limited by patient positioning and t echnique. COMPARISON: 10/21/2024 FINDINGS: The lungs are well inflated and clear. No pneumothorax or sizable effusion. The heart is normal in s ize. Mediastinal contours are unremarkable. IMPRESSION: No acute intrathoracic abnormalities.
[2024-11-01 21:35] LABS: Anisocytosis 1+; Blood Morphology Comment NOTED (NOT SEEN); Microcytosis 1+; Platelet Estimate ADEQ; White Blood Cell Scan OK (OK)
--- NOTE | 2024-11-01 21:42 | RAD REPORT ---
EXAM: CT CHEST, ABDOMEN AND PELVIS WITHOUT CONTRAST CLINICAL INDICATION: Female, 64 years old. [facility] MAIN ABDOMINAL DISTENTION Bed Name: 7 TECHNIQUE: CT chest, abdomen and pelvis was performed, without IV contrast, as per department protoco l. Axial, sagittal and coronal reconstructions were obtained. One or more of the following dose reduction techniques were used: Automated exposure control, adjustment of the mA and/or kV according to the patient size, and/or iterative reconstruction. Unless otherwise specified, incidental findings do not require dedicated imaging follow-up. COMPARISON: 09/11/2024 CT chest. 04/16/24 CT abdomen and pelvis FINDINGS: The lack of intravenous contrast limits the sensitivity of this exam for evaluation of solid visceral organs, vascular structures, and retroperitoneum. Chest: LOWER NECK/CHEST WALL: Visualized thyroid gland and soft tissues are normal. LUNGS AND AIRWAYS: Airways are clear. No evidence of airspace or interstitial process. No nodules. PLEURA: No pleural effusion. No pneumothorax. Hemidiaphragms are normally positioned. MEDIASTINUM AND LYMPH NODES: No mediastinal mass or fluid collection. Normal size mediastinal, hilar, and axillary lymph nodes. THORACIC AORTA: Normal caliber and configuration. PULMONARY ARTERIES: Normal caliber. HEART: Unremarkable. Abdomen/Pelvis LIVER: Normal in size and contour. No focal lesion. GALLBLADDER/BILE DUCTS: Status post cholecystectomy. No biliary ductal dilatation. PANCREAS: No mass, ductal dilation, or gabriel-pancreatic fluid. SPLEEN: Normal size. No focal lesion. ADRENALS: Normal; no mass. KIDNEYS AND URETERS: Normal size and contour. No hydronephrosis. GASTROINTESTINAL TRACT: Stomach is non-dilated. Small bowel has normal course and caliber. No colonic wall thickening or pericolonic inflammatory changes. Small duodenal diverticulum again seen. PERITONEUM: No free fluid. LYMPH NODES: No lymphadenopathy. ABDOMINAL AORTA AND OTHER VESSELS: Normal caliber aorta and IVC. URINARY BLADDER: Normal contour. REPRODUCTIVE ORGANS: No pathologic process. MUSCULOSKELETAL: No acute or suspicious osseous abnormality. ADDITIONAL FINDINGS: Nonspecific central mesenteric fat prominence is stable IMPRESSION: No acute abnormalities in the chest, abdomen, or pelvis. Stable nonspecific mild central mesenteric fat stranding, could be idiopathic or related to an upper abdominal infectious/inflammatory process, mesenteritis, or can even be seen with neoplastic conditions such as lymphoma, stability however suggests benign nature.
--- NOTE | 2024-11-01 22:24 | ER ---
Nurse's Notes [facility] Name: Radha Santos Age: 64 yrs Sex: Female : 1960 Arrival Date: 11/01/2024 Time: 19:23 Bed 26 Private MD: Diagnosis: Weakness;Type 1 diabetes mellitus with hyperglycemia;Obesity, unspecified Presentation: 11/01 19:47 Chief complaint: EMS states: TONED OUT FOR HIGH BLOOD SUGAR. PT REPORTS D/C [facility] dd2 [facility]OSPITAL 4 DAYS AGO WITH BGS 1400 AND BEGAN HAVING HIGH BLOOD SUGAR READINGS AND NAUSEA X2 DAYS AGO. REPORTS SHE WAS GIVEN A NEW INSULIN BUT NOT WORKING. Coronavirus screen: At this time, the client does not indicate any symptoms associated with coronavirus-19. Ebola Screen: No symptoms or risks identified at this time. Initial Sepsis Screen: Does the patient meet any 2 criteria? No. Patient's initial sepsis screen is negative. Does the patient have a suspected source of infection? No. Patient's initial sepsis screen is negative. Risk Assessment: Do you want to hurt yourself or someone else? Patient reports no desire to harm self or others. Onset of symptoms was October 30, 2024. 19:47 Method Of Arrival: EMS: [facility] dd2 19:47 Acuity: SAURAV 3 dd2 Triage Assessment: 19:51 General: Appears in no apparent distress. comfortable, Behavior is calm, cooperative, dd2 appropriate for age. Pain: Complains of pain in epigastric area and left knee Pain does not radiate. Pain currently is 5 out of 10 on a pain scale. EENT: No deficits noted. No signs and/or symptoms were reported regarding the EENT system. Neuro: No deficits noted. Mckeon Agitation-Sedation Scale (RASS): 0 - Alert and Calm Level of Consciousness is awake, alert, obeys commands, Oriented to person, place, time, situation, Appropriate for age [employer] Member are. Cardiovascular: Heart tones S1 S2 present JVD is absent Patient's skin is warm and dry. Respiratory: Airway is patent Respiratory effort is even, unlabored, Respiratory pattern is regular, symmetrical. GI: Bowel sounds present X 4 quads. Abd is soft and non tender X 4 quads. Reports epigastric pain, nausea. : Reports urinary frequency. Derm: No deficits noted. No signs and/or symptoms reported regarding the dermatologic system. Musculoskeletal: No deficits noted. No signs and/or symptoms reported regarding the musculoskeletal system. Circulation, motion, and sensation intact. Range of motion: intact in all extremities. Historical: - Allergies: 19:51 miconazole; dd2 19:51 skin cleanser combination no.17; dd2 - PMHx: 19:51 Anemia; Asthma; Back pain; CVA; Gastric ulcer bleed (wrist); hemorrhoids; hiatal dd2 hernia; hyperthyroidism; Kidney stone; Migraine; peptic ulcer disease; Diabetes mellitus; - PSHx: 19:51 Bladder; section; Cholecystectomy; knee; surgery on nerve in right arm; wrist; dd2 - Immunization history:: Adult Immunizations up to date. - Infectious Disease History:: Denies. - Social history:: Smoking status: Patient denies any tobacco usage or history of. - Family history:: not pertinent. Screenin:23 [facility] ED Fall Risk Assessment (Adult) History of falling in the last 3 months, dd2 including since admission No falls in past 3 months (0 pts) Confusion or Disorientation No (0 pts) Intoxicated or Sedated No (0 pts) Impaired Gait Yes (1 pt) Mobility Assist Device Used Yes (1 pt) Altered Elimination No (0 pt) Score/Fall Risk Level 0 - 2 = Low Risk Oriented to surroundings, Maintained a safe environment, Educated pt \T\ family on fall prevention, incl call for assistance when getting out of bed, Assessed \T\ reinforced patient's understanding of fall precautions, Hourly rounding (assess needs \T\ fall precautionary measures) done, Used ambulatory aids as needed (educated on \T\ assisted with). Abuse screen: Denies threats or abuse. Denies injuries from another. Nutritional screening: On diabetic diet. Tuberculosis screening: No symptoms or risk factors identified. Assessment: 19:55 Reassessment: SEE TRIAGE ASSESSMENT FOR FULL ASSESSMENT. dd2 Vital Signs: 19:47 BP 137 / 78; Pulse 105; Resp 17; Temp 98.4; Pulse Ox 96% on R/A; Weight 106 kg; dd2 20:30 BP 135 / 73; Pulse 103; Resp 18; Pulse Ox 97% on R/A; dd2 21:00 BP 132 / 69; Pulse 100; Resp 17; Pulse Ox 96% on R/A; dd2 22:30 BP 138 / 81; Pulse 99; Resp 16; Pulse Ox 97% on R/A; dd2 11/02 01:38 BP 142 / 57; Pulse 96; Resp 17; Pulse Ox 97% on R/A; dd2 02:30 BP 145 / 63; Pulse 92; Resp 16; Pulse Ox 97% on R/A; dd2 02:30 BP 124 / 68; Pulse 92; Resp 18; Pulse Ox 96% on R/A; dd2 Bill Coma Score: 11/01 19:55 Eye Response: spontaneous(4). Motor Response: obeys commands(6). Verbal Response: dd2 oriented(5). Total: 15. ED Course: 19:44 Patient arrived in ED. gm2 19:51 Triage completed. dd2 19:51 Arm band placed on right wrist. dd2 19:54 Ethan Ray MD is Attending Physician. itz 19:55 Patient maintains SpO2 saturation greater than 95% on room air. dd2 20:09 KIKI PLASENCIA, RN is Primary Nurse. dd2 20:15 Warm blanket given. sa1 20:21 Urine Culture Sent. dd2 20:21 Basic Metabolic Panel Sent. dd2 20:21 CBC with Diff Sent. dd2 20:22 LFT's Sent. dd2 20:22 Magnesium Sent. dd2 20:22 NT PRO-BNP Sent. dd2 20:22 PT-INR Sent. dd2 20:22 Troponin HS Sent. dd2 20:22 No provider procedures requiring assistance completed. Initial lab(s) drawn, by nj, dd2 sent to lab. Urine collected: clean catch specimen, cloudy. Inserted saline lock: 22 gauge in left antecubital area, using aseptic technique. Blood collected. Flushed with 10 mL NS. 20:35 XRAY Chest (1 view) In Process Unspecified. EDMS 20:42 CT Chest Abdomen Pelvis W/O Contrast In Process Unspecified. EDMS 21:37 EKG done, by ED staff, reviewed by Ethan Ray MD. dd2 22:18 Jocelin Morris MD is Hospitalizing Provider. itz 22:23 Patient has correct armband on for positive identification. Bed in low position. Call dd2 light in reach. Side rails up X2. Client placed on continuous cardiac and pulse oximetry monitoring. NIBP monitoring applied. environmental monitoring technician on. 11/02 03:16 Patient admitted, IV remains in place. dd2 Administered Medications: 11/01 20:21 Drug: NS 0.9% IV 1000 ml IV at 1000 ml once; to be given as a bolus over 60 minutes dd2 Route: IV; Rate: 1000 ml; Site: left antecubital; 21:45 Follow up: Response: No adverse reaction; IV Status: Completed infusion bm8 20:21 Drug: Ondansetron IVP 4 mg IVP once; over 2 minutes Route: IVP; Site: left antecubital; dd2 20:33 Drug: Insulin Glargine Sub-Q 30 units Sub-Q once {Co-Signature: dd2 (KIKI PLASENCIA RN).} lg3 Route: Sub-Q; Site: right lower abdomen; 21:45 Follow up: Response: No adverse reaction bm8 20:34 Drug: Insulin Regular Human IVP 10 units IVP once {Co-Signature: dd2 (KIKI PLASENCIA lg3 RN).} Route: IVP; Site: left antecubital; 21:45 Follow up: Response: No adverse reaction bm8 20:40 Drug: Famotidine IVP 20 mg IVP once; dilute with 10 mL 0.9% NaCl; give over 2 minutes dd2 Route: IVP; Site: left antecubital; 21:45 Follow up: Response: No adverse reaction bm8 Medication: 19:55 VIS not applicable for this client. dd2 Outcome: 22:23 Decision to Hospitalize by Provider. [facility] 11/02 03:16 Admitted to ER Hold. Please see [facility] for further documentation. dd2 Condition: stable Instructed on the need for admit, Demonstrated understanding of instructions, 10:45 Patient left the ED. em1 Signatures: Dispatcher [employer] [facility] Ethan Ray MD MD cha Martinez, Eric em1 Erin Villalta RN RN lg3 Cee Rinaldi 2 Emmanuel Alvarez RN RN bm8 Sultan Ross [facility] KIKI PLASENCIA RN RN dd2 KIKI PLASENCIA RN dd2
--- NOTE | 2024-11-01 22:24 | EDPHYS ---
Physician Documentation [facility] Name: Radha Santos Age: 64 yrs Sex: Female : 1960 Arrival Date: 11/01/2024 Time: 19:23 Bed 26 Private MD: ED Physician Ethan Ray HPI: 11/01 20:26 This 64 yrs old Female presents to ER via EMS with complaints of High Blood itz Sugar. 20:26 The patient or guardian reports generalized weakness, hyperglycemia. Onset: The itz symptoms/episode began/occurred today, yesterday. Associated signs and symptoms: Pertinent positives: nausea. Current symptoms: In the emergency department the patient's symptoms are unchanged from the initial presentation, despite home interventions. The patient has experienced similar episodes in the past, multiple times. Historical: - Allergies: 19:51 miconazole; dd2 19:51 skin cleanser combination no.17; dd2 - PMHx: 19:51 Anemia; Asthma; Back pain; CVA; Gastric ulcer bleed (wrist); hemorrhoids; hiatal dd2 hernia; hyperthyroidism; Kidney stone; Migraine; peptic ulcer disease; Diabetes mellitus; - PSHx: 19:51 Bladder; section; Cholecystectomy; knee; surgery on nerve in right arm; wrist; dd2 - Immunization history:: Adult Immunizations up to date. - Infectious Disease History:: Denies. - Social history:: Smoking status: Patient denies any tobacco usage or history of. - Family history:: not pertinent. ROS: 20:26 Constitutional: Negative for fever, chills, and weight loss, Eyes: Negative for injury, itz pain, redness, and discharge, ENT: Negative for injury, pain, and discharge, Neck: Negative for injury, pain, and swelling, Cardiovascular: Negative for chest pain, palpitations, and edema, Respiratory: Negative for shortness of breath, cough, wheezing, and pleuritic chest pain, Back: Negative for injury and pain, : Negative for injury, bleeding, discharge, and swelling, MS/Extremity: Negative for injury and deformity, Neuro: Negative for headache, weakness, numbness, tingling, and seizure, Psych: Negative for depression, anxiety, suicide ideation, homicidal ideation, and hallucinations, Allergy/Immunology: Negative for hives, rash, and allergies, Hematologic/Lymphatic: Negative for swollen nodes, abnormal bleeding, and unusual bruising, 20:26 Abdomen/GI: Positive for abdominal pain, nausea, 20:26 Skin: Positive for pallor, 20:26 Neuro: Positive for weakness, Exam: 20:26 Constitutional: This is a well developed, well nourished patient who is awake, alert, itz and in no acute distress. Head/Face: Normocephalic, atraumatic. Eyes: Pupils equal round and reactive to light, extra-ocular motions intact. Lids and lashes normal. Conjunctiva and sclera are non-icteric and not injected. Cornea within normal limits. Periorbital areas with no swelling, redness, or edema. ENT: Nares patent. No nasal discharge, no septal abnormalities noted. Tympanic membranes are normal and external auditory canals are clear. Oropharynx with no redness, swelling, or masses, exudates, or evidence of obstruction, uvula midline. Mucous membranes moist. Neck: Trachea midline, no thyromegaly or masses palpated, and no cervical lymphadenopathy. Supple, full range of motion without nuchal rigidity, or vertebral point tenderness. No Meningismus. Chest/axilla: Normal chest wall appearance and motion. Nontender with no deformity. No lesions are appreciated. Cardiovascular: Regular rate and rhythm with a normal S1 and S2. No gallops, murmurs, or rubs. Normal PMI, no JVD. No pulse deficits. Respiratory: Lungs have equal breath sounds bilaterally, clear to auscultation and percussion. No rales, rhonchi or wheezes noted. No increased work of breathing, no retractions or nasal flaring. Back: No spinal tenderness. No costovertebral tenderness. Full range of motion. Female : Normal external genitalia. MS/ Extremity: Pulses equal, no cyanosis. Neurovascular intact. Full, normal range of motion., bilateral aka Neuro: Awake and alert, GCS 15, oriented to person, place, time, and situation. Cranial nerves II-XII grossly intact. Motor strength 5/5 in all extremities. Sensory grossly intact. Cerebellar exam normal. Normal gait. Psych: Awake, alert, with orientation to person, place and time. Behavior, mood, and affect are within normal limits. 20:26 Abdomen/GI: Inspection: abdomen appears normal, Bowel sounds: normal, Palpation: mild abdominal tenderness, in all quadrants, Liver: no appreciated palpable abnormalities, Hernia: not appreciated, 21:13 ECG was reviewed by the Attending Physician. [facility] Vital Signs: 19:47 BP 137 / 78; Pulse 105; Resp 17; Temp 98.4; Pulse Ox 96% on R/A; Weight 106 kg; dd2 20:30 BP 135 / 73; Pulse 103; Resp 18; Pulse Ox 97% on R/A; dd2 21:00 BP 132 / 69; Pulse 100; Resp 17; Pulse Ox 96% on R/A; dd2 22:30 BP 138 / 81; Pulse 99; Resp 16; Pulse Ox 97% on R/A; dd2 03/30 01:38 BP 142 / 57; Pulse 96; Resp 17; Pulse Ox 97% on R/A; dd2 02:30 BP 145 / 63; Pulse 92; Resp 16; Pulse Ox 97% on R/A; dd2 02:30 BP 124 / 68; Pulse 92; Resp 18; Pulse Ox 96% on R/A; dd2 Newcomb Coma Score: 11/01 19:55 Eye Response: spontaneous(4). Motor Response: obeys commands(6). Verbal Response: dd2 oriented(5). Total: 15. MDM: 19:54 Medical Screening Exam initiated [facility] 20:33 Data reviewed: vital signs, nurses notes, EMS record, lab test result(s), EKG, [facility] radiologic studies, plain films. Consideration of Admission/Observation Patient was admitted/placed on observation. Escalation of care including admission/observation considered. I considered the following discharge prescriptions or medication management in the emergency department Medications were administered in the Emergency Department. See MAR. Independent interpretation of the following test(s) in the Emergency Department EKG: See my EKG interpretation above. Test considered but Not performed: Ultrasound no abd usg. Historians other than the Patient: EMS: ems well informed. pt well informed. Care significantly affected by the following chronic conditions: Diabetes, Hypertension, Obesity. Counseling: I had a detailed discussion with the patient and/or guardian regarding the historical points, exam findings, and any diagnostic results supporting the discharge/admit diagnosis, lab results, radiology results, the need for further work-up and treatment in the hospital. 11/01 19:56 Order name: Basic Metabolic Panel; Complete Time: 20:59 [facility] 11/01 19:56 Order name: CBC with Diff; Complete Time: 22:15 [facility] 11/01 19:56 Order name: LFT's; Complete Time: 20:59 [facility] 11/01 19:56 Order name: Magnesium; Complete Time: 20:59 [facility] 11/01 19:56 Order name: NT PRO-BNP; Complete Time: 20:59 [facility] 11/01 19:56 Order name: PT-INR; Complete Time: 20:59 [facility] 11/01 19:56 Order name: Troponin HS; Complete Time: 20:59 [facility] 11/01 19:56 Order name: Lipase; Complete Time: 20:59 [facility] 11/01 19:56 Order name: Urinalysis w/ reflexes; Complete Time: 20:59 [facility] 11/01 19:56 Order name: Urine Culture [facility] 11/01 20:20 Order name: Glucose, Ancillary Testing; Complete Time: 20:59 [facility] 11/01 21:04 Order name: CBC Smear Scan; Complete Time: 22:15 [facility] 11/02 00:07 Order name: Hemoglobin A1c [facility] 11/02 06:09 Order name: Glucose, Ancillary Testing [facility] 11/02 07:41 Order name: Glucose, Ancillary Testing [facility] 11/02 09:32 Order name: CBC with Automated Diff [facility] 11/02 09:45 Order name: Basic Metabolic Panel [facility] 11/01 19:56 Order name: XRAY Chest (1 view); Complete Time: 22:15 [facility] 11/01 20:20 Order name: CT Chest Abdomen Pelvis W/O Contrast; Complete Time: 22:15 [facility] 11/01 19:56 Order name: EKG; Complete Time: 19:56 [facility] 11/01 19:56 Order name: Cardiac monitoring; Complete Time: 21:37 [facility] 11/01 19:56 Order name: EKG - Nurse/Tech; Complete Time: 21:37 [facility] 11/01 19:56 Order name: IV Saline Lock; Complete Time: 20:21 [facility] 11/01 19:56 Order name: Labs collected and sent; Complete Time: 20:21 [facility] 11/01 19:56 Order name: O2 Per Protocol; Complete Time: 20:21 [facility] 11/01 19:56 Order name: O2 Sat Monitoring; Complete Time: 20:21 [facility] 11/01 20:09 Order name: IV Saline Lock - Large Bore; Complete Time: 20:21 [facility] EC:13 Rate is 106 beats/min. Rhythm is regular. QRS Jeannette is Normal. IL interval is normal. itz QRS interval is normal. QT interval is normal. No Q waves. T waves are Normal. No ST changes noted. Clinical impression: Sinus tachycardia. Interpreted by me. Reviewed by me. Administered Medications: 20:21 Drug: NS 0.9% IV 1000 ml IV at 1000 ml once; to be given as a bolus over 60 minutes dd2 Route: IV; Rate: 1000 ml; Site: left antecubital; 21:45 Follow up: Response: No adverse reaction; IV Status: Completed infusion bm8 20:21 Drug: Ondansetron IVP 4 mg IVP once; over 2 minutes Route: IVP; Site: left antecubital; dd2 20:33 Drug: Insulin Glargine Sub-Q 30 units Sub-Q once {Co-Signature: dd2 (KIKI PLASENCIA RN).} lg3 Route: Sub-Q; Site: right lower abdomen; 21:45 Follow up: Response: No adverse reaction bm8 20:34 Drug: Insulin Regular Human IVP 10 units IVP once {Co-Signature: dd2 (KIKI PLASENCIA lg3 RN).} Route: IVP; Site: left antecubital; 21:45 Follow up: Response: No adverse reaction bm8 20:40 Drug: Famotidine IVP 20 mg IVP once; dilute with 10 mL 0.9% NaCl; give over 2 minutes dd2 Route: IVP; Site: left antecubital; 21:45 Follow up: Response: No adverse reaction bm8 Disposition Summary: 11/01/24 22:23 Hospitalization Ordered Notes: Hospitalization Status: Inpatient Admission itz Provider: Jocelin Morris itz Condition: Fair itz Problem: new itz Symptoms: have improved itz Bed/Room Type: Standard itz Location: Telemetry/MedSurg (Inpatient)(11/02/24 09:32) kb3 Room Assignment: 429(11/02/24 09:32) kb3 Diagnosis - Weakness itz - Type 1 diabetes mellitus with hyperglycemia itz - Obesity, unspecified itz Forms: - Medication Reconciliation Form itz - SBAR form itz - Leadership Thank You Letter itz Signatures: Dispatcher [employer] Ethan Dixon MD MD cha Able, Lacie RN RN lg3 Destiny Flores RN RN kb3 Livia Paredes DIANA, RN RN dd2 Emmanuel Alvarez RN bm8 KIKI PLASENCIA RN dd2 Corrections: (The following items were deleted from the chart) 19:57 19:56 BASIC METABOLIC PANEL+C.LAB.BRZ ordered. EDMS EDMS 19:57 19:56 CBC+H.LAB.BRZ ordered. EDMS EDMS 19:57 19:56 HEPATIC FUNCTION+C.LAB.BRZ ordered. EDMS EDMS 19:57 19:56 MAGNESIUM+C.LAB.BRZ ordered. EDMS EDMS 19:57 19:56 PROBNP+C.LAB.BRZ ordered. EDMS EDMS 19:57 19:56 PROTIME (+INR)+COAG.LAB.BRZ ordered. EDMS EDMS 19:57 19:56 Troponin High Sensitivity+C.LAB.BRZ ordered. EDMS EDMS 19:57 19:56 LIPASE+C.LAB.BRZ ordered. EDMS EDMS 19:57 19:56 Urinalysis+U.LAB.BRZ ordered. EDMS EDMS 19:57 19:56 Urine Culture+BA.LAB.BRZ ordered. EDMS EDMS 22:48 22:23 Telemetry/MedSurg (Inpatient) itz vk 22:48 22:23 itz vk 11/02 09:32 11/01 22:48 BR ER HOLD vk kb3 11/02 09:32 11/01 22:48 ERHOLD- vk kb3
--- NOTE | 2024-11-02 00:02 | P.HP ---
Certification for Inpatient Patient admitted to: Observation With expected LOS: <2 Midnights Practitioner: I am a practitioner with admitting privileges, knowledge of patient current condition, hospital course, and medical plan of care. Services: Services provided to patient in accordance with Admission requirements found in Title 42 Section 412.3 of the Code of Federal Regulations Patient History Date of Service: 11/02/24 Reason for admission: hyperglycemia History of Present Illness: 64-year-old female presents with complaints of elevated blood sugar. Patient reports symptoms started yesterday. She also reported some nausea. In the ER she was noted to have elevated blood sugar. Greater than 400. She received insulin and IV fluids. She was recently admitted for [facility]. At that time she was noted to have taken steroids. She does have history of asthma. She states that she currently takes 10 units at home. And notes that her blood sugars have been consistently greater than 250. She has recently tried to contact her primary care but she is out of town. She denies any fevers, chills, cough does report some abdominal discomfort and nausea. Allergies miconazole [From Monistat 3] Allergy (Verified 11/14/22 07:18) Rash skin cleanser combination no.17 [From Monistat 3] Allergy (Verified 11/14/22 07:18) Rash Home Medications: Amlodipine [Norvasc*] 5 mg PO DAILY 10/14/24 Benzonatate [Tessalon Perle*] 100 mg PO Q8HR PRN 10/14/24 Divalproex Sodium 2 cap PO BEDTIME 10/14/24 Divalproex Sodium 250 mg PO DAILY WITH BREAKFAST 10/14/24 Donepezil HCl 10 mg PO BEDTIME 10/14/24 Duloxetine HCl [Cymbalta] 120 mg PO DAILY 10/14/24 Fluticasone/Umeclidin/Vilanter [Trelegy Ellipta 200-62.5-25] 1 puff IH DAILY 10/14/24 Gabapentin 1 cap PO BID 10/14/24 Losartan Potassium [Cozaar*] 50 mg PO DAILY 10/14/24 Meloxicam [Mobic*] 7.5 mg PO LUNCH 10/14/24 Pantoprazole [Protonix Tab*] 40 mg PO DAILY 10/14/24 Quetiapine Fumarate [Seroquel] 1 tab PO BEDTIME 10/14/24 Quetiapine [Seroquel*] 200 mg PO DAILY WITH BREAKFAST 10/14/24 Simvastatin [Zocor] 20 mg PO BEDTIME 10/14/24 Temazepam [Restoril] 30 mg PO BEDTIME 10/14/24 Tizanidine HCl [Zanaflex] 2 mg PO BID 10/14/24 Trazodone [Desyrel*] 150 mg PO BEDTIME 10/14/24 traMADol HCL [Ultram*] 50 mg PO BID 10/14/24 Albuterol Neb [Proventil 0.083% Neb Soln] 2.5 mg NEB TIDRESP #60 amp 10/21/24 Azithromycin Tab [Zithromax*] 250 mg PO DAILY #5 tab 10/21/24 Fluticasone/Umeclidin/Vilanter [Trelegy Ellipta 200-62.5-25] 2 puff IH DAILY #1 inh 10/21/24 Guaifen W/Codeine Syrup [ROBITUSSIN A-C Syrup*] 10 ml PO Q12HP PRN #50 ml 10/21/24 Insulin Glargine,Hum.rec.anlog [Semglee] 10 unit SQ DAILY #10 ml 10/21/24 Ipratropium Neb [Atrovent*] 0.5 mg NEB [id number] #60 amp 10/21/24 Levothyroxine [Synthroid*] 0.15 mg PO DAILYAC #45 tab 10/21/24 Spironolactone [Aldactone*] 25 mg PO DAILY #30 tab 10/21/24 predniSONE [Deltasone] 20 mg PO DAILY #5 tab 10/21/24 - Past Medical/Surgical History Diabetic: Yes -: depression -: bipolar -: hypertension -: cva -: asthma -: IDDM -: short term memory problems -: COPD -: hypothyroidism -: anemia -: gastric ulcers -: hysterectomy -: bilateral knee replacement -: susy -: csections -: right wrist surgery Psychosocial/ Personal History: Patient lives at home. - Family History Father -: Cancer Notes: skin Mother -: Heart disease, Diabetes Notes: Bipolar - Social History Alcohol use: No CD- Drugs: No Caffeine use: No Review of Systems 10-point ROS is otherwise unremarkable Gastrointestinal: Nausea, Abdominal Pain Physical Examination - Physical Exam General: Alert, Oriented x3 HEENT: Atraumatic, Normocephalic Respiratory: Clear to auscultation bilaterally, Normal air movement Cardiovascular: Regular rate/rhythm, Normal S1 S2 Gastrointestinal: Soft and benign, Non-distended Musculoskeletal: No contractures Neurological: Normal speech - Studies Laboratory Data (last 24 hrs) 11/01/24 11/01/24 11/01/24 20:10 20:10 20:10 WBC 5.70 Hgb 10.3 L Hct 31.7 L Plt Count 261 PT 10.5 INR 0.92 Sodium 128 L Potassium 4.2 BUN 12 Creatinine 1.03 H Glucose 485 H* Magnesium 1.9 Total Bilirubin 0.3 AST 12 L ALT 24 Alkaline Phosphatase 78 Lipase 30 Assessment and Plan - Problems (Diagnosis) (1) Hyperglycemia Current Visit: Yes Status: Acute - Plan 64-year-old female with history of diabetes, asthma, obesity presents with hyperglycemia Insulin-dependent diabetes Hyperglycemia Nausea and abdominal pain Asthma History of hypothyroidism History of chronic back pain Plan: Admit for observation Continue IV fluids Increase Lantus dose to 20 units daily with a high sliding scale Carb controlled diet As needed antiemetics and Tylenol Await home medication reconciliation Anticipate discharge likely in 24 hours - Advance Directives Does patient have a Living Will: No Does patient have a Durable POA for Healthcare: No
[2024-11-02] MEDS ORDERED: GLUCAGON 1 MG/VIAL IM PRN (00:03)
[2024-11-02] MEDS ORDERED: D10W 125 ML IV PRN (00:03)
[2024-11-02 03:27] VITALS: BMI 39.9
[2024-11-02] MEDS: NA CHLORIDE 0.9% 1,000 ML IV SCH (03:40)
[2024-11-02] MEDS ORDERED: NA CHLORIDE 0.9% 1,000 ML ONE (03:40)
[2024-11-02] MEDS: INSULIN REGULAR (HUMAN) 100 UNIT/ML SQ SCH (07:30)
[2024-11-02] MEDS ORDERED: INSULIN REGULAR (HUMAN) 100 UNIT/ML ONE (07:39)
[2024-11-02] MEDS: ENOXAPARIN 40 MG/0.4 ML SQ SCH (09:00)
[2024-11-02] MEDS: INSULIN GLARGINE 100 UNIT/ML SQ SCH (09:00)
[2024-11-02 09:31] LABS: Absolute Lymphocytes (CBC) 1.2 K/uL (0.7-4.9); Absolute Monocytes 0.7 K/uL (0.1-1.3); Absolute Neutrophil 3.5 K/uL (1.8-8.0); Basophils % 0.6 % (0-1.3); Eosinophils % 0.9 % (0-4.4); Hematocrit 28.7 % (36.0-45.0); Hemoglobin 9.7 g/dL (12.0-15.0); Lymphocytes % 22.3 % (15.3-44.8); MCH 29.6 pg (27.0-35.0); MCHC 33.6 g/dL (32.0-36.0); MCV 88.1 fL (80-100); MPV 9.1 fL (7.6-11.3); Monocytes % 12.1 % (3.3-12.3); Neutrophils % 64.1 % (41.7-73.7); Nucleated Red Blood Cells % 0.1 % (0-0); Platelets 238 thou/uL (152-406); RBC Red Blood Cell Count 3.26 M/uL (3.86-4.86)
[2024-11-02 09:44] LABS: Anion Gap 10.9 mEq/L (5.0-15.0); Potassium 3.9 mEq/L (3.5-5.1)
[2024-11-02] MEDS ORDERED: INSULIN GLARGINE 100 UNIT/ML SQ ONE (10:20)
[2024-11-02] MEDS ORDERED: ENOXAPARIN 40 MG/0.4 ML SQ ONE (10:22)
[2024-11-02] MEDS: ONDANSETRON 4 MG/2 ML VIAL IV PRN (10:59)
[2024-11-02] MEDS ORDERED: ALBUTEROL INHALER 200 PUFF/6.7 GM IH PRN (12:58)
--- NOTE | 2024-11-02 13:06 | P.PN ---
Subjective Date of Service: 11/02/24 Chief Complaint: hyperglycemia Subjective: No chest pain or shortness of breath. No abdominal pain. No obvious bleeding. Looks comfortable in the bed. Complaining of nausea and headache, feels like migraine headache. Objective: General appearance: Alert and comfortable CVS: Normal S1 and S2 Lungs: Clear to auscultation bilaterally Abdomen: Soft, bowel sounds present, no tenderness Extremities: No lower extremity edema Physical Examination - Vital Signs Temperature: 99.4 F Blood Pressure: 153/76 Pulse: 94 Respirations: 18 Pulse Ox (%): 95 - Studies Laboratory Data (last 24 hrs) 11/01/24 11/01/24 11/01/24 20:10 20:10 20:10 WBC 5.70 Hgb 10.3 L Hct 31.7 L Plt Count 261 PT 10.5 INR 0.92 Sodium 128 L Potassium 4.2 BUN 12 Creatinine 1.03 H Glucose 485 H* Magnesium 1.9 Total Bilirubin 0.3 AST 12 L ALT 24 Alkaline Phosphatase 78 Lipase 30 Assessment And Plan - Plan 64-year-old female with history of diabetes, asthma, obesity presents with hyperglycemia 1. Insulin-dependent diabetes with Hyperglycemia -Continue Lantus, add mealtime insulin, blood sugar still high. 2. Nausea and abdominal pain: Probable related to high blood sugars, improving, monitor closely. 3. Asthma: Continue inhalers 4. History of hypothyroidism: Continue levothyroxine 5. History of chronic back pain: Continue as needed pain medications 6. Chronic anemia: Monitor closely 7. Hypertension: Resume Norvasc. 8. Hyponatremia: Probably related to hyperglycemia, improving, monitor closely. 9. Migraine: Continue as needed medications, waiting for the full home med reconciliation. Discussed with the nurse. Plan discussed with the patient and nursing staff, MA plan depends on clinical progress.
[2024-11-02] MEDS: GABAPENTIN 100 MG CAP PO SCH (13:51)
[2024-11-02] MEDS: INSULIN LISPRO 100 UNIT/1 ML SQ SCH (13:52)
[2024-11-02] MEDS: AMLODIPINE 5 MG TAB PO SCH (13:52)
[2024-11-02] MEDS: OXYCODONE HCL 5 MG TAB PO PRN (16:34)
[2024-11-02] MEDS: ATORVASTATIN 40 MG TAB PO SCH (21:00)
[2024-11-02] MEDS: DIVALPROEX DR 250 MG TAB PO SCH (21:00)
[2024-11-02] MEDS: DULERA 100/5 (MOMETASONE/FORMOTEROL) INHALER IH SCH (21:01)
[2024-11-03] MEDS: LEVOTHYROXINE SOD 0.075 MG TAB PO SCH (06:15)
[2024-11-03] MEDS: LEVOTHYROXINE SOD 0.1 MG TAB PO SCH (06:15)
[2024-11-03 06:43] LABS: Absolute Basophils 0.1 K/uL (0-0.5); Absolute Eosinophils 0.1 K/uL (0-0.5); Absolute Lymphocytes (CBC) 1.5 K/uL (0.7-4.9); Absolute Monocytes 0.6 K/uL (0.1-1.3); Absolute Neutrophil 2.1 K/uL (1.8-8.0); Basophils % 1.4 % (0-1.3); Eosinophils % 1.2 % (0-4.4); Hematocrit 31.8 % (36.0-45.0); Hemoglobin 10.4 g/dL (12.0-15.0); Lymphocytes % 34.9 % (15.3-44.8); MCH 29.3 pg (27.0-35.0); MCHC 32.8 g/dL (32.0-36.0); MCV 89.5 fL (80-100); MPV 8.5 fL (7.6-11.3); Monocytes % 14.7 % (3.3-12.3); Neutrophils % 47.8 % (41.7-73.7); Nucleated Red Blood Cells % 0.1 % (0-0); Platelets 270 thou/uL (152-406); RBC Red Blood Cell Count 3.55 M/uL (3.86-4.86); Red Cell Distribution Width 21.5 % (12.1-15.2)
[2024-11-03 07:05] LABS: Anion Gap 7.2 mEq/L (5.0-15.0); Potassium 4.2 mEq/L (3.5-5.1)
[2024-11-03] MEDS: ALBUTEROL 2.5 MG/3 ML NEB SOL NEB SCH (07:41)
[2024-11-03] MEDS: DIVALPROEX DR 250 MG TAB PO SCH ×2 (08:00→21:00)
[2024-11-03] MEDS: DULOXETINE 30 MG CAP PO SCH (08:39)
[2024-11-03] MEDS: GABAPENTIN 300 MG CAP PO SCH (08:40)
[2024-11-03] MEDS: QUETIAPINE 100MG TAB PO SCH ×2 (08:40→21:12)
[2024-11-03] MEDS: VILANTER IH SCH (08:54)
[2024-11-03] MEDS: UMECLIDIN IH SCH (08:54)
[2024-11-03] MEDS: AMLODIPINE 5 MG TAB PO SCH (08:54)
[2024-11-03] MEDS: FLUTICASONE IH SCH (08:54)
--- NOTE | 2024-11-03 11:21 | EKG ---
Test Date: 2024-11-01 Test Time: 19:58:16 Studio Manager: MEASUREMENT RESULTS: Intervals: Rate: 106 MO: 170 QRSD: 94 QT: 348 QTc: 462 [place]: P: 49 MO: 170 QRS: -3 T: 32 INTERPRETIVE STATEMENTS: Sinus tachycardia Otherwise normal ECG Compared to ECG 10/13/2024 20:18:13 No significant changes Electronically Signed On 11-03-24 11:18:12 CDT by Pablo Edwards
[2024-11-03] MEDS: TRAZODONE 150 MG TAB PO SCH (21:12)
[2024-11-03] MEDS: DONEPEZIL HCL 5 MG TAB PO SCH (21:12)
[2024-11-03] MEDS: MAGNES/ALUMIN/SIMET 30ML UCUP PO PRN (21:13)
[2024-11-04 10:17] VITALS: O2SAT 97
[2024-11-04 16:03] VITALS: BP 141/77; TEMP 97.8
== END 2024-11-04 18:37 | disposition home health service (06) | DRG 638 ==
LOC: ER 19:23 → ERHOLD 11-02 00:03 → 4TH 11-02 10:29 → OBSVTOIN 11-03 17:21
PROVIDERS: ADMIT Internal Medicine; ATTEND Hospitalist
DX: E11.65 Type 2 diabetes mellitus with hyperglycemia (principal); E87.1 Hypo-osmolality and hyponatremia; Z68.41 Body mass index [BMI] 40.0-44.9, adult; F31.9 Bipolar disorder, unspecified; E03.9 Hypothyroidism, unspecified; J45.909 Unspecified asthma, uncomplicated; I10 Essential (primary) hypertension; D64.9 Anemia, unspecified; J44.9 Chronic obstructive pulmonary disease, unspecified; M54.9 Dorsalgia, unspecified; G43.909 Migraine, unspecified, not intractable, without status migrainosus; E66.9 Obesity, unspecified; G89.29 Other chronic pain; R53.1 Weakness; Z79.4 Long term (current) use of insulin; Z86.73 Personal history of transient ischemic attack (TIA), and cerebral infarction without residual deficits
CPT/HCPCS: 36415; 71045; 71250; 74176; 80048; 80076; 81001; 82947; 83036; 83690; 83735; 83880; 84484; 85025; 85610; 87086; 87088; 93005; 94640; 96361; 96372; 96374; 96375; 99285; G0378; J1650; J1815; J2405; J3535; J7030; J7613

== ENCOUNTER 2025-05-22 22:48 | Emergency (ER) | payer OTHER ==
[2025-05-22 23:51] LABS: Absolute Lymphocytes (CBC) 1.9 K/uL (0.7-4.9); Hematocrit 31.1 % (36.0-45.0); Hemoglobin 10.3 g/dL (12.0-15.0); MCH 30.7 pg (27.0-35.0); MCHC 33.0 g/dL (32.0-36.0); MCV 93.0 fL (80-100); MPV 8.5 fL (7.6-11.3); Nucleated RBC Absolute Count 0.0 (0-0); Nucleated Red Blood Cells % 0.0 % (0-0); RBC Red Blood Cell Count 3.34 M/uL (3.86-4.86); White Blood Count 5.80 thou/uL (4.3-10.9)
[2025-05-22 23:53] LABS: Urine Microscopic Reflex YN NO UMIC
[2025-05-23 00:12] LABS: ALT/SGPT 33.0 U/L (13-56); AST/SGOT 16.0 U/L (15-37); Albumin 3.4 g/dL (3.4-5.0); Albumin/Globulin Ratio 0.9 (1.1-1.8); Alkaline Phosphatase 62.0 U/L (45-117); Anion Gap 7.9 mEq/L (5.0-15.0); BUN Blood Urea Nitrogen 21.0 mg/dL (7-18); Globulin 4.0 g/dL (2.3-3.5); Glucose Level 119.0 mg/dL (74-106); Lipase 26.0 U/L (13-75); Potassium 3.9 mEq/L (3.5-5.1)
[2025-05-23] MEDS ORDERED: FENTANYL CITR 100 MCG/2 ML ONE ×2 (00:15→02:05)
[2025-05-23] MEDS ORDERED: NA CHLORIDE 0.9% 1,000 ML ONE (00:16)
[2025-05-23] MEDS ORDERED: ONDANSETRON 4 MG/2 ML VIAL ONE (02:05)
[2025-05-23] MEDS ORDERED: KETOROLAC 30 MG/ML INJ ONE (03:36)
--- NOTE | 2025-05-23 03:36 | RAD REPORT ---
EXAM DESCRIPTION: Abdomen Pelvis W Contrast RadLex: CT ABDOMEN PELVIS WITH IV CONTRAST CLINICAL HISTORY: 64 years Female; ABD PAIN; IV ONLY Bed Name: 20 TECHNIQUE: CT of the abdomen and pelvis [with] intravenous contrast. All CT scans at this facility use dose modulation, iterative reconstruction, and/or weight based dosi ng when appropriate to reduce radiation dose to as low as reasonably achievable. COMPARISON: CT abdomen pelvis 04/16/2024 FINDINGS: Lower thorax: Bibasilar atelectasis. Abdomen: Stomach: Within normal limits Liver: No focal lesions. No intrahepatic ductal distention. Gallbladder: Surgically absent. Pancreas: Within normal limits Spleen: Within normal limits Right kidney: No hydronephrosis. No focal lesion. Left kidney: No hydronephrosis. No focal lesion. Adrenal glands: Within normal limits Vascular structures: Prominent central mesenteric lymph nodes. Nodes: No lymphadenopathy by size criteria Pelvis: Small bowel: No significant distention. Appendix: Not visualized. Colon: No distention or acute pericolonic edema. Moderate to large stool burden. Peritoneum: No free intraperitoneal fluid or air. Increased attenuation of the central mesenteric f at with prominent lymph nodes. Bones: No acute bone findings. Sacral stimulator noted. Bladder: Unremarkable. Reproductive organs: No acute findings. IMPRESSION: 1. Increased attenuation of the central mesenteric fat with prominent lymph nodes, can be seen in s etting of mesenteric panniculitis. 2. Moderate to large stool burden. Electronically signed by: Sarah Brooks MD 05/23/2025 03:31 AM CDT TYG Due to temporary technical issues with the PACS/[employer] reporting system, reports are being diana d by the in-house radiologist without review as a courtesy to ensure prompt reporting the interpreting radiologist is fully responsible for the content of the report. Transcribed Date/Time: 05/23/2025 3:35 AM
[2025-05-23] MEDS ORDERED: DICYCLOMINE HCL 20 MG/2 ML AMP IM ONE (03:37)
[2025-05-23] MEDS ORDERED: MAGNESIUM CITRATE 300 ML BOT ONE (04:11)
[2025-05-23] MEDS ORDERED: PIPERACIL/TAZO 3.375 GM VIAL IV ONE (04:11)
[2025-05-23] MEDS ORDERED: NA CHLORIDE 0.9% 100 ML ONE (04:11)
--- NOTE | 2025-05-23 04:44 | EDPHYS ---
Physician Documentation [facility] Name: Radha Santos Age: 64 yrs Sex: Female : 1960 Arrival Date: 05/22/2025 Time: 22:48 Bed 20 Private MD: ED Physician Oscar Eckert HPI: 05/22 23:15 This 64 yrs old Female presents to ER via Unassigned with complaints of Urinary cp Problem, Back Pain. 23:15 The patient presents with urinary symptoms, dysuria, frequency, abdominal and back pain.cp 23:15 Onset: The symptoms/episode began/occurred today. Associated signs and symptoms: cp Pertinent negatives: constipation, diarrhea, fever, vomiting. Severity of symptoms: in the emergency department the symptoms are unchanged, despite EMS interventions. Historical: - Allergies: 05/23 01:08 miconazole; ss12 01:08 skin cleanser combination no.17; ss12 - Home Meds: 01:08 amlodipine 5 mg tablet daily [Active]; divalproex 250 mg Oral Tablet 3 tabs [Active]; ss12 donepezil 10 mg Oral tablet every day at bedtime [Active]; duloxetine 60 mg Oral capsule 2 caps daily [Active]; gabapentin 300 mg Oral capsule 2 times per day [Active]; losartan 50 mg Oral tablet daily [Active]; meloxicam 7.5 mg Oral tablet [Active]; pantoprazole 40 mg Oral granules delayed release for susp packet daily [Active]; quetiapine 400 mg Oral tablet [Active]; simvastatin 20 mg Oral tablet every day at bedtime [Active]; temazepam 30 mg Oral capsule every day at bedtime [Active]; tizanidine 2 mg Oral capsule 2 times per day [Active]; tramadol 50 mg Oral tablet 2 times per day [Active]; trazodone 150 mg Oral tablet 1 tab nightly [Active]; - PMHx: 01:08 Anemia; Asthma; Back pain; CVA; diabetes mellitus; Gastric ulcer bleed (wrist); ss12 hemorrhoids; hiatal hernia; hyperthyroidism; Kidney stone; Migraine; peptic ulcer disease; - PSHx: 01:08 Bladder; section; Cholecystectomy; knee; surgery on nerve in right arm; wrist; ss12 - Immunization history:: Adult Immunizations unknown. - Infectious Disease History:: Denies. - Social history:: Smoking status: Patient denies any tobacco usage or history of. ROS: 05/22 23:20 : Positive for urinary symptoms, small amounts, burning with urination, cp Exam: 23:25 Constitutional: The patient appears in no acute distress, alert, awake, cp non-diaphoretic, non-toxic, well developed, well nourished, uncomfortable, 23:25 Head/Face: Normocephalic, atraumatic. cp 23:25 Eyes: Periorbital structures: appear normal, Conjunctiva: normal, no exudate, no injection, Sclera: no appreciated abnormality, Lids and lashes: appear normal, bilaterally, 23:25 ENT: External ear(s): are unremarkable, Nose: is normal, Mouth: Lips: moist, Oral mucosa: moist, Posterior pharynx: Airway: normal, 23:25 Chest/axilla: Inspection: normal, 23:25 Cardiovascular: Rate: normal, Rhythm: regular, Edema: ankle edema, that is very mild, JVD: is not appreciated, 23:25 Respiratory: the patient does not display signs of respiratory distress, Respirations: normal, no use of accessory muscles, no retractions, labored breathing, is not present, Breath sounds: are clear throughout, no decreased breath sounds, no stridor, no wheezing, 23:25 Abdomen/GI: Inspection: abdomen appears normal, Bowel sounds: active, all quadrants, Palpation: soft, in all quadrants, moderate abdominal tenderness, in all quadrants, rebound tenderness, is not appreciated, involuntary guarding, is not appreciated, 23:25 Back: pain, that is moderate, of the mid back area, 23:25 Neuro: Orientation: to person, place \T\ time. Mentation: is normal, Vital Signs: 23:14 BP 115 / 52; Pulse 90; Resp 18; Temp 98.1; Pulse Ox 99% on R/A; ss12 05/23 00:30 BP 152 / 70; Pulse 88; Resp 16; Pulse Ox 99% on R/A; ss12 01:30 BP 126 / 58; Pulse 86; Resp 18; Pulse Ox 98% ; ss12 02:00 BP 136 / 87; Pulse 90; Resp 16; Pulse Ox 99% on R/A; ss12 03:00 BP 154 / 85; Pulse 82; Resp 16; Pulse Ox 100% on R/A; ss12 04:00 BP 146 / 71; Pulse 79; Resp 16; Pulse Ox 98% on R/A; ss12 05:12 BP 137 / 79; Pulse 87; Resp 16; Pulse Ox 99% on R/A; ss12 Bejou Coma Score: 03:00 Eye Response: spontaneous(4). Motor Response: obeys commands(6). Verbal Response: ss12 oriented(5). Total: 15. MDM: 05/22 23:14 Medical Screening Exam initiated cp 05/23 01:00 Differential diagnosis: appendicitis, urinary tract infection, kidney stone, ureteral cp stone. 04:44 Data reviewed: vital signs, nurses notes, lab test result(s), radiologic studies, CT cp scan, and as a result, I will discharge patient. 04:44 Consideration of Admission/Observation Escalation of care including cp admission/observation considered. I considered the following discharge prescriptions or medication management in the emergency department Medications were administered in the Emergency Department. See MAR. Counseling: I had a detailed discussion with the patient and/or guardian regarding the historical points, exam findings, and any diagnostic results supporting the discharge/admit diagnosis, lab results, radiology results, to return to the emergency department if symptoms worsen or persist or if there are any questions or concerns that arise at home. Response to treatment: the patient's symptoms have mildly improved after treatment, and as a result, I will discharge patient. ED course: VSS. Labs reviewed and normal WBC, afebrile. Will treat outpatient with oral antibiotics and instructions to return to ED worsening symptoms. 05/22 23:13 Order name: UA Rfx Al Cult if indicated; Complete Time: 00:21 05/22 23:13 Order name: CBC with Diff; Complete Time: 00:21 cp 05/22 23: Order name: CMP; Complete Time: 00:21 cp 05/23 03:58 Interpretation: Normal except: GLUC 119; BUN 21; CRE 1.07; GFR 58; GLOB 4.0; A/G 0.9. cp 05/22 23:13 Order name: Lipase; Complete Time: 00:21 cp 05/23 00:22 Order name: CT Abd/Pelvis - IV Contrast Only cp 05/22 23:13 Order name: IV Saline Lock; Complete Time: 23:57 10/17 23:13 Order name: Labs collected and sent; Complete Time: 23:57 cp 05/23 04:03 Order name: PO challenge; Complete Time: 04:09 cp Administered Medications: 00:15 Drug: fentaNYL (PF) IVP 25 mcg IVP once Route: IVP; Site: left upper arm; ss12 01:00 Follow up: Response: No adverse reaction; Pain is unchanged, physician notified ss12 00:15 Drug: NS 0.9% IV 500 ml 500 ml IV at 1 bolus once; to be given as a bolus over 60 ss12 minutes Volume: 500 ml; Route: IV; Rate: 1 bolus; Site: left upper arm; 01:15 Follow up: IV Status: Completed infusion; IV Intake: 1000ml ss12 01:43 CANCELLED (Physician Discretion): morphineor iv 4 mg IVP once over 4 mins cp 01:45 Drug: Ondansetron IVP 4 mg IVP once; over 2 minutes Route: IVP; Site: left upper arm; ss12 02:30 Follow up: Response: No adverse reaction ss12 01:45 Drug: fentaNYL (PF) IVP 50 mcg IVP once Route: IVP; Site: left upper arm; ss12 02:30 Follow up: Response: No adverse reaction; Pain is decreased ss12 03:40 Drug: Dicyclomine IM 20 mg IM once Route: IM; Site: left deltoid; ss12 04:20 Follow up: Response: No adverse reaction ss12 03:40 Drug: Ketorolac IVP 15 mg IVP once Route: IVP; Site: left upper arm; ss12 04:20 Follow up: Response: No adverse reaction; Pain is decreased ss12 04:04 CANCELLED (Physician Discretion): magnesium citrateliquid 300 ml PO once cp 04:30 Drug: Piperacillin-Tazobactam IVPB 3.375 grams IVPB once over 60 mins; (mix in NS 100 ss12 mL) Route: IVPB; Infused Over: 60 mins; Site: left upper arm; 05:21 Follow up: IV Status: Completed infusion; IV Intake: 100ml ss12 04:36 Drug: Magnesium Citrate PO Liquid 300 ml PO once; for constipation Route: PO; ss12 05:42 Follow up: Response: No adverse reaction 12 Disposition: 05:23 Co-signature as Attending Physician, Oscar Eckert DO I agree with the assessment and tt7 plan of care. 16:14 Chart complete. cp Disposition Summary: 05/23/25 04:44 Discharge Ordered Notes: Location: Home cp Problem: new cp Symptoms: have improved cp Condition: Stable cp Diagnosis - Constipation cp - Mesenteric Panniculitis cp - Dysuria cp Followup: cp - With: Private Physician - When: 2 - 3 days - Reason: Worsening of condition Discharge Instructions: - Discharge Summary Sheet cp - Abdominal Pain, Adult cp - Constipation, Adult cp - Dysuria cp Forms: - Medication Reconciliation Form cp - Antibiotic Education cp - Prescription Opioid Use cp - Patient Portal Instructions cp - Leadership Thank You Letter cp Prescriptions: - Augmentin 875-125 mg Oral Tablet - take 1 tablet ORAL route every 12 hours for 10 days; 20 tablet; Refills: 0, cp Product Selection Permitted - Zofran 4 mg Oral Tablet - take 1 tablet ORAL route every 12 hours As needed; 20 tablet; Refills: 0, cp Product Selection Permitted - dicyclomine 20 mg Oral tablet - take 1 tablet ORAL route 4 times per day; 30 tablet; Refills: 0, Product cp Selection Permitted Signatures: Dispatcher [employer] EDMS Ethan Billingsley PA-C PA-C cp Shamaila, Shamaila RN RN ss12 Oscar Eckert DO DO tt7 Corrections: (The following items were deleted from the chart) 05/22 23:14 23:14 UA Rfx Al Cult if indicated+U.LAB.BRZ ordered. EDMS EDMS 23:14 23:14 CBC+H.LAB.BRZ ordered. EDMS EDMS 23:14 23:14 COMPREHENSIVE METABOLIC PANEL+C.LAB.BRZ ordered. EDMS EDMS 23:14 23:14 LIPASE+C.LAB.BRZ ordered. EDMS EDMS 05/23 00:22 00:22 Abdomen Pelvis W Con+CT.RAD.BRZ ordered. EDMS EDMS 01:43 01:32 morphine IVP or IV 4 mg IVP once over 4 mins ordered. cp cp 04:04 04:04 Magnesium Citrate PO Liquid 300 ml PO once ordered. cp cp 16:12 05/22 23:15 The patient presents with urinary symptoms, dysuria, frequency, cp cp
--- NOTE | 2025-05-23 04:44 | ER ---
Nurse's Notes [facility] Name: Radha Santos Age: 64 yrs Sex: Female : 1960 Arrival Date: 05/22/2025 Time: 22:48 Bed 20 Private MD: Diagnosis: Constipation;Mesenteric Panniculitis;Dysuria Presentation: 05/22 23:14 Chief complaint: EMS states: Pt Complaint of UTI symptoms. Lower pelvic pain, lower ss12 back pain, frequent urine, burning while urinating. Pt has hx of frequent UTIs. Pain is 7/10. afebrile. BS 113. Coronavirus screen: Client denies travel out of the [place] in the last 14 days. Ebola Screen: Patient negative for fever greater than or equal to 101.5 degrees Fahrenheit, and additional compatible Ebola Virus Disease symptoms Patient denies exposure to infectious person. Patient denies travel to an Ebola-affected area in the 21 days before illness onset. Initial Sepsis Screen: Does the patient meet any 2 criteria? No. Patient's initial sepsis screen is negative. Does the patient have a suspected source of infection? No. Patient's initial sepsis screen is negative. Risk Assessment: Do you want to hurt yourself or someone else? Patient reports no desire to harm self or others. Onset of symptoms is unknown. 23:14 Method Of Arrival: EMS: [facility] [place] [id number] 23:14 Acuity: SAURAV 3 ss12 Triage Assessment: 23:30 General: Appears in no apparent distress. Behavior is calm, cooperative, quiet. Pain: ss12 Complains of pain in pelvic Pain radiates to back Pain currently is 9 out of 10 on a pain scale. Quality of pain is described as aching, pressure, Pain began suddenly. 23:30 EENT: No deficits noted. No signs and/or symptoms were reported regarding the EENT 12 system. Neuro: No deficits noted. Level of Consciousness is awake, alert, obeys commands, Oriented to person, place, time, situation. Cardiovascular: No deficits noted. Patient's skin is warm and dry. Respiratory: No deficits noted. Airway is patent Respiratory effort is even, unlabored, Respiratory pattern is regular, symmetrical. GI: No deficits noted. No signs and/or symptoms were reported involving the gastrointestinal system. Abdomen is round non-distended. : No deficits noted. Urine is clear. Derm: No deficits noted. No signs and/or symptoms reported regarding the dermatologic system. Musculoskeletal: No deficits noted. Circulation, motion, and sensation intact. Historical: - Allergies: 05/23 01:08 miconazole; ss12 01:08 skin cleanser combination no.17; ss12 - Home Meds: 01:08 amlodipine 5 mg tablet daily [Active]; divalproex 250 mg Oral Tablet 3 tabs [Active]; ss12 donepezil 10 mg Oral tablet every day at bedtime [Active]; duloxetine 60 mg Oral capsule 2 caps daily [Active]; gabapentin 300 mg Oral capsule 2 times per day [Active]; losartan 50 mg Oral tablet daily [Active]; meloxicam 7.5 mg Oral tablet [Active]; pantoprazole 40 mg Oral granules delayed release for susp packet daily [Active]; quetiapine 400 mg Oral tablet [Active]; simvastatin 20 mg Oral tablet every day at bedtime [Active]; temazepam 30 mg Oral capsule every day at bedtime [Active]; tizanidine 2 mg Oral capsule 2 times per day [Active]; tramadol 50 mg Oral tablet 2 times per day [Active]; trazodone 150 mg Oral tablet 1 tab nightly [Active]; - PMHx: 01:08 Anemia; Asthma; Back pain; CVA; diabetes mellitus; Gastric ulcer bleed (wrist); ss12 hemorrhoids; hiatal hernia; hyperthyroidism; Kidney stone; Migraine; peptic ulcer disease; - PSHx: 01:08 Bladder; section; Cholecystectomy; knee; surgery on nerve in right arm; wrist; ss12 - Immunization history:: Adult Immunizations unknown. - Infectious Disease History:: Denies. - Social history:: Smoking status: Patient denies any tobacco usage or history of. Screenin:13 [facility] ED Fall Risk Assessment (Adult) History of falling in the last 3 months, ss12 including since admission No falls in past 3 months (0 pts) Confusion or Disorientation No (0 pts) Intoxicated or Sedated No (0 pts) Impaired Gait No (0 pts) Mobility Assist Device Used No (0 pt) Altered Elimination No (0 pt) Score/Fall Risk Level 0 - 2 = Low Risk Oriented to surroundings, Maintained a safe environment, Educated pt \T\ family on fall prevention, incl call for assistance when getting out of bed, Assessed \T\ reinforced patient's understanding of fall precautions, Provided non-skid footwear. Abuse screen: Denies threats or abuse. Denies injuries from another. Nutritional screening: No deficits noted. Tuberculosis screening: No symptoms or risk factors identified. Assessment: 05/22 23:14 Reassessment: see triage assessment. [facility] 05/23 00:01 Reassessment: Patient appears in no apparent distress at this time. Patient and/or ss12 family updated on plan of care and expected duration. Pain level reassessed. Patient is alert, oriented x 3, equal unlabored respirations, skin warm/dry/pink. 01:15 Reassessment: Patient appears in no apparent distress at this time. [facility] 02:00 Reassessment: Patient appears in no apparent distress at this time. Patient and/or ss12 family updated on plan of care and expected duration. Pain level reassessed. Patient is alert, oriented x 3, equal unlabored respirations, skin warm/dry/pink. 03:23 Reassessment: Patient appears in no apparent distress at this time. Patient and/or ss12 family updated on plan of care and expected duration. Pain level reassessed. Patient is alert, oriented x 3, equal unlabored respirations, skin warm/dry/pink. 05:16 Reassessment: Patient appears in no apparent distress at this time. Patient and/or ss12 family updated on plan of care and expected duration. Pain level reassessed. Patient is alert, oriented x 3, equal unlabored respirations, skin warm/dry/pink. Reassessment: Pt independent to washroom and no gait disturbance noted. pt voided and issues reported. Vital Signs: 05/22 23:14 BP 115 / 52; Pulse 90; Resp 18; Temp 98.1; Pulse Ox 99% on R/A; [facility] 05/23 00:30 BP 152 / 70; Pulse 88; Resp 16; Pulse Ox 99% on R/A; [facility] 01:30 BP 126 / 58; Pulse 86; Resp 18; Pulse Ox 98% ; 12 02:00 BP 136 / 87; Pulse 90; Resp 16; Pulse Ox 99% on R/A; [facility] 03:00 BP 154 / 85; Pulse 82; Resp 16; Pulse Ox 100% on R/A; ss12 04:00 BP 146 / 71; Pulse 79; Resp 16; Pulse Ox 98% on R/A; ss12 05:12 BP 137 / 79; Pulse 87; Resp 16; Pulse Ox 99% on R/A; ss12 Bill Coma Score: 03:00 Eye Response: spontaneous(4). Motor Response: obeys commands(6). Verbal Response: ss12 oriented(5). Total: 15. ED Course: 05/22 23:09 Patient arrived in ED. al6 23:13 Ethan Billingsley PA-C is PHCP. cp 23:13 Oscar Eckert DO is Attending Physician. cp 23:23 Heri Liriano, RN is Primary Nurse. ss12 23:45 Inserted saline lock: 22 gauge in left upper arm, using aseptic technique. Blood ss12 collected. Flushed with 10 mL NS. 23:57 CMP Sent. ss12 23:57 Lipase Sent. ss12 05/23 01:07 Triage completed. ss12 01:14 CT Abd/Pelvis - IV Contrast Only In Process Unspecified. EDMS 03:26 Arm band placed on right wrist. ss12 03:27 No provider procedures requiring assistance completed. ss12 03:27 Patient has correct armband on for positive identification. Provided Education on: plan ss12 of care discussed with the patient. 05:20 IV discontinued, intact, bleeding controlled, No redness/swelling at site. Pressure ss12 dressing applied. Administered Medications: 00:15 Drug: fentaNYL (PF) IVP 25 mcg IVP once Route: IVP; Site: left upper arm; ss12 01:00 Follow up: Response: No adverse reaction; Pain is unchanged, physician notified ss12 00:15 Drug: NS 0.9% IV 500 ml 500 ml IV at 1 bolus once; to be given as a bolus over 60 ss12 minutes Volume: 500 ml; Route: IV; Rate: 1 bolus; Site: left upper arm; 01:15 Follow up: IV Status: Completed infusion; IV Intake: 1000ml ss12 01:43 CANCELLED (Physician Discretion): morphineor iv 4 mg IVP once over 4 mins cp 01:45 Drug: Ondansetron IVP 4 mg IVP once; over 2 minutes Route: IVP; Site: left upper arm; ss12 02:30 Follow up: Response: No adverse reaction ss12 01:45 Drug: fentaNYL (PF) IVP 50 mcg IVP once Route: IVP; Site: left upper arm; ss12 02:30 Follow up: Response: No adverse reaction; Pain is decreased ss12 03:40 Drug: Dicyclomine IM 20 mg IM once Route: IM; Site: left deltoid; ss12 04:20 Follow up: Response: No adverse reaction ss12 03:40 Drug: Ketorolac IVP 15 mg IVP once Route: IVP; Site: left upper arm; ss12 04:20 Follow up: Response: No adverse reaction; Pain is decreased ss12 04:04 CANCELLED (Physician Discretion): magnesium citrateliquid 300 ml PO once cp 04:30 Drug: Piperacillin-Tazobactam IVPB 3.375 grams IVPB once over 60 mins; (mix in NS 100 ss12 mL) Route: IVPB; Infused Over: 60 mins; Site: left upper arm; 05:21 Follow up: IV Status: Completed infusion; IV Intake: 100ml 12 04:36 Drug: Magnesium Citrate PO Liquid 300 ml PO once; for constipation Route: PO; ss12 05:42 Follow up: Response: No adverse reaction 12 Medication: 03:26 VIS not applicable for this client. 12 Intake: 01:15 IV: 1000ml; Total: 1000ml. ss12 05:21 IV: 100ml; Total: 1100ml. 12 Outcome: 04:44 Discharge ordered by MD. cp 05:20 Discharged to home ambulatory, ss12 05:20 Condition: stable 05:20 Discharge instructions given to patient, family, Instructed on discharge instructions, follow up and referral plans. Demonstrated understanding of instructions, follow-up care, Prescriptions given X 3, 05:41 Patient left the ED. 12 Signatures: Dispatcher [employer] EDMS Ethan Billingsley PA-C PA-C cp Landin, Alissa al6 Heri Liriano RN RN ss12
[2025-05-23 13:47] VITALS: TEMP 98.1
[2025-05-23 13:54] VITALS: BP 137/79; O2SAT 99
== END 2025-05-23 05:41 | disposition home or self-care (01) ==
LOC: ER 22:48
DX: K59.00 Constipation, unspecified (principal); K65.4 Sclerosing mesenteritis; R30.0 Dysuria
CPT/HCPCS: 96365; 96361; 85025; 36415; 81003; 83690; 80053; 74177; 96375; 96372; 99284; Q9967; J1885; J0500; J2543; J3010 ×2; J2405; J7030